=== PATIENT | female | born 1955 | race Caucasian/White ===

== ENCOUNTER 2016-10-17 11:08 | Emergency (ER) | payer MEDICAID ==
[~2016-10-17] VITALS: Ht 160 cm; Wt 127.0 kg
[~2016-10-17 11:08] MED LIST: ALBU2.5V4 IH; AMLO10TA2 PO; ATOR10TA66 PO; ATOR20TA66 PO; CALC500T3 PO; CANA300T PO; CARV12.52 PO; CHOL4PAC2 PO; CICL15CR11 TP; CYCL10TA9 PO; DULA1.5P2 SQ; DULO60CA58 PO; DULO60CA6 PO; FLUO40CA PO; FLUT1DIS26 IH; GABA300C PO; GEMF600T3 PO; IPRA4AER IH; LISI-552 PO; MAGN400T6 PO; MELO7.5T46 PO; METR250T32 PO; MORP-34 PO; OXYC-191 PO; OXYC-197 PO; OXYC-465 PO; PRD20T PO; SITA25TA5 PO
[2016-10-17] MEDS ORDERED: morphine INJ 10 MG/ML 1ML (SYR OR VIAL) IVP STA (11:58)
--- NOTE | 2016-10-17 12:08 | ED Lower Extremity ---
General Chief Complaint: Lower Extremity Stated Complaint: R FOOT INJ Nursing Triage Note: Pt stepped on a toothpick last night. Small puncture wound with red streaking noted. Hx of diabetes. Nursing Sepsis Screen: No Definite Risk Source: patient Exam Limitations: no limitations History of Present Illness Time seen by provider: 11:55 Initial Comments 60 yo female patient presents to the ED with c/o rt foot pain, swelling and redness. States she stepped on a toothpick last night. denies bleeding from the site at the time of injury. states the toothpick did not break. denies fever. Location Injury Occurred: home Onset: yesterday ((last night)) Pain/Injury Location: right foot Method of Injury: other (stepped on a toothpick.) Modifying Factors: Worse With Other (worse with palpation) Allergies and Home Medications Allergies Coded Allergies: No Known Drug Allergies (Unverified , 01/08/15) Home Medications Albuterol Sulfate 2.5 Mg/3 Ml Vial.neb, 2.5 MG IH Q6H PRN for SHORTNESS OF BREATH, (Reported) Albuterol/Ipratropium 4 Gm Aero, 2 PUFF IH Q4H PRN for SHORTNESS OF BREATH, ( Reported) Amlodipine Besylate 10 Mg Tablet, 10 MG PO DAILY, (Reported) Atorvastatin Calcium 20 Mg Tablet, 20 MG PO DAILY, (Reported) Calcium Carbonate 500 Mg Tablet, 1,000 MG PO DAILY, (Reported) TAKES TWO (500 MG) TABLETS Carvedilol 12.5 Mg Tablet, 12.5 MG PO BID, (Reported) Cholestyramine (with Sugar) 4 Gm Powd.pack, 2 PACKET PO DAILY PRN for DIARRHEA, (Reported) Clindamycin HCl 300 Mg Capsule, 300 MG PO QID, #40 Ref 0 Prescribed by: GARY MIXON on 10/17/16 1318 Cyclobenzaprine HCl 10 Mg Tablet, 10 MG PO Q8H PRN for MUSCLE SPASMS, (Reported) Cyclobenzaprine HCl 10 Mg Tablet, 10 MG PO Q8H PRN for SPASMS, #14 Ref 0 Prescribed by: GARY MIXON on 03/15/16 1310 Dulaglutide 1.5 Mg/0.5 Ml Pen.injctr, 1.5 MG SQ EVERY WEDNESDAY, (Reported) Duloxetine HCl 60 Mg Capsule.dr, 60 MG PO DAILY, (Reported) Fluoxetine HCl 40 Mg Capsule, 40 MG PO DAILY, (Reported) Fluticasone/Salmeterol 1 Each Blst.w.dev, 2 PUFF IH DAILY, (Reported) Gabapentin 300 Mg Capsule, 300 MG PO UD, #40 Ref 0 1 po x 1 dose on day 1; then 1 po BID on day 2; then 1 po TID. Prescribed by: GARY MIXON on 03/15/16 1310 Lisinopril 20 Mg Tablet, 20 MG PO DAILY, (Reported) Magnesium Oxide 400 Mg Tablet, 400 MG PO BID, (Reported) Oxycodone HCl/Acetaminophen 1 Each Tablet, 1-2 TAB PO Q4H PRN for PAIN, #90 Ref 0 Prescribed by: BIRGIT PLATT on 01/30/15 0643 Prednisone 20 Mg Tab, 20 MG PO DAILY, #5 Ref 0 Prescribed by: GARY MIXON on 03/15/16 1310 Sitagliptin Phosphate 25 Mg Tablet, 25 MG PO DAILY, (Reported) Constitutional: No chills, No fever, No malaise Respiratory: no symptoms reported Cardiovascular: no symptoms reported Gastrointestinal: no symptoms reported Musculoskeletal: see HPI, joint pain (rt foot), joint swelling (rt foot) Skin: see HPI, change in color (redness rt foot.), other Psychiatric/Neurological: No Symptoms Reported All Other Systems Reviewed Negative Unless Noted: Yes (Negative excepted noted.) Past Zgdarpg-Zijfcu-Yiuoyu Hx Patient Social History Alcohol Use: Denies Use Recreational Drug Use: No Smoking Status: Unknown if Ever Smoked Type Used: Cigarettes Recent Foreign Travel: No Contact w/Someone Who Travel: No Recent Infectious Disease Expo: No Recent Hopitalizations: No Immunizations Up To Date Tetanus Booster (TDap): More than 5yrs Date of Pneumonia Vaccine: Apr 12, 2013 Date of Influenza Vaccine: Jan 18, 2015 Surgeries HX Surgeries: Yes (COLON RESECTION, C/S X2, BILAT CTR, c-spine fusion) Surgeries: Orthopedic Respiratory Hx Respiratory Disorders: Yes (BI-PAP, OXYGEN) Respiratory Disorders: Sleep Apnea, COPD, Emphysema Cardiovascular Hx Cardiac Disorders: Yes Cardiac Disorders: High Cholesterol, Hypertension Neurological Hx Neurological Disorders: Yes (chronic numbness rt proximal lateral thigh.) Neurological Disorders: Neuropathy 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 System Hx 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 Disorders: No Female 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 Disorders: Denies Genitourinary Hx Genitourinary Disorders: No Gastrointestinal Hx Gastrointestinal Disorders: Yes (COLON RESECTION, ) Gastrointestinal Disorders: Chronic Diarrhea Musculoskeletal Hx Musculoskeletal Disorders: Yes (STENOSIS. chronic neck pain.) Musculoskeletal Disorders: Degenerate Disk Disease, Chronic Back Pain Endocrine Hx Endocrine Disorders: Yes (BORDERLINE DIABETE, ) Endocrine Disorders: Diabetes, Non-Insulin dep HEENT HX ENT Disorders: Yes (GLASSES, DENTURES) Cancer Hx Cancer: No Psychosocial Hx Psychiatric Problems: Yes Behavioral Health Disorders: Depression Integumentary HX Skin/Integumentary Disorder: No Blood Transfusions Hx Blood Disorders: No Reviewed Nursing Assessment Reviewed/Agree w Nursing PMH: Yes Family Medical History Significant Family History: No Pertinent Family Hx Family Medial History: Arthritis 19 FATHER Cardiovascular disease 19 FATHER Completed stroke 19 MOTHER Diabetes mellitus 19 FATHER Hypertension 19 FATHER G8 SISTER Myocardial infarction 19 FATHER Respiratory disorder 19 MOTHER Physical Exam Vital Signs Vital Sign - Last 12Hours 10/17/16 11:41 Temp 98.6 Pulse 82 Resp 18 B/P (MAP) 107/53 Pulse Ox 94 O2 Delivery Room Air Capillary Refill : Less Than 3 Seconds General Appearance: WD/WN, no apparent distress Cardiovascular: normal peripheral pulses, regular rate, rhythm, no edema, no murmur Respiratory: lungs clear, normal breath sounds, no respiratory distress Legs: bilateral leg non-tender, bilateral leg normal inspection, bilateral leg normal range of motion, bilateral leg no evidence of injury Knees: bilateral knee non-tender, bilateral knee normal inspection, bilateral knee normal range of motion, bilateral knee no evidence of injury Ankles: bilateral ankle non-tender, bilateral ankle normal inspection, bilateral ankle normal range of motion, bilateral ankle no evidence of injury Feet: left foot non-tender, left foot normal inspection, bilateral foot normal range of motion, left foot no evidence of injury, right foot pain, right foot soft tissue tenderness (plantar midfoot), right foot swelling (mild swelling of the plantar midfoot), right foot other (small puncture site with 4x6 cm area of erythema of the right plantar midfoot. Streaking noted up the medial foot to the level of the ankle.) Progress/Results/Core Measures Results/Orders Lab Results Laboratory Tests Test 10/17/16 12:15 Range/Units White Blood Count 10.4 4.3-11.0 10^3/uL Red Blood Count 4.77 4.35-5.85 10^6/uL Hemoglobin 13.6 11.5-16.0 G/DL Hematocrit 42 35-52 % Mean Corpuscular Volume 89 80-99 FL Mean Corpuscular Hemoglobin 29 25-34 PG Mean Corpuscular Hemoglobin Concent 32 32-36 G/DL Red Cell Distribution Width 14.8 H 10.0-14.5 % Platelet Count 240 130-400 10^3/uL Mean Platelet Volume 9.8 7.4-10.4 FL Neutrophils (%) (Auto) 68 42-75 % Lymphocytes (%) (Auto) 20 12-44 % Monocytes (%) (Auto) 10 0-12 % Eosinophils (%) (Auto) 2 0-10 % Basophils (%) (Auto) 0 0-10 % Neutrophils # (Auto) 7.0 1.8-7.8 X 10^3 Lymphocytes # (Auto) 2.1 1.0-4.0 X 10^3 Monocytes # (Auto) 1.0 0.0-1.0 X 10^3 Eosinophils # (Auto) 0.2 0.0-0.3 10^3/uL Basophils # (Auto) 0.0 0.0-0.1 10^3/uL Sodium Level 141 135-145 MMOL/L Potassium Level 3.6 3.6-5.0 MMOL/L Chloride Level 103 98-107 MMOL/L Carbon Dioxide Level 23 21-32 MMOL/L Anion Gap 15 H 5-14 MMOL/L Blood Urea Nitrogen 20 H 7-18 MG/DL Creatinine 1.17 0.60-1.30 MG/DL Estimat Glomerular Filtration Rate 47 BUN/Creatinine Ratio 17 Glucose Level 170 H 70-105 MG/DL Calcium Level 9.3 8.5-10.1 MG/DL C-Reactive Protein High Sensitivity 2.47 H 0.00-0.50 MG/DL My Orders Orders - GARY MIXON Basic Metabolic Panel (10/17/16 11:58) Cbc With Automated Diff (10/17/16 11:58) Hs C Reactive Protein (10/17/16 11:58) Saline Lock/Iv-Start (10/17/16 11:58) Foot, Right, 3 View (10/17/16 11:58) Morphine Injection (Morphine Injection (10/17/16 11:58) Clindamycin Injection (Cleocin Injection (10/17/16 12:45) Medications Given in ED Current Medications Medications Dose Ordered Sig/Gracie Route Start Time Stop Time Status Last Admin Dose Admin Clindamycin Phosphate 900 mg/ Sodium Chloride 56 ml @ 100 mls/hr ONCE ONCE IV 10/17/16 12:45 10/17/16 13:18 DC 10/17/16 12:45 100 MLS/HR Vital Signs/I&O Vital Sign - Last 12Hours 10/17/16 10/17/16 10/17/16 11:41 12:22 13:51 Temp 98.6 98.6 98.6 Pulse 82 80 Resp 18 18 B/P (MAP) 107/53 Pulse Ox 94 95 O2 Delivery Room Air Blood Pressure Mean: 71 Diagnostic Imaging Diagonstic Imaging: Xray Plain Films/CT/US/NM/MRI: other (foot) Comments FINDINGS: There is degenerative change about the right foot particularly at the first MTP joint with mild joint space narrowing and osteophyte formation. No acute bony abnormality. Prominent calcaneal spur formation at the base of the healed. A definitive soft tissue foreign body and/or abnormal gas collection does not appear to be present. IMPRESSION: 1. Negative for acute findings of the foot. 2. No definitive soft tissue foreign body. However, particularly small pieces of wood could be potentially radiographically occult. If further assessment is desired, would recommend ultrasound imaging for followup. Dictated on workstation # [id number] Reviewed: Reviewed by Me (radiology report reviewed by me) Departure Communication Progress Notes Laboratory and diagnostic findings discussed with the patient. Proceed with discharge to home. Patient given 1 dose of Cleocin IV prior to discharge. Impression Impression: Primary Impression: Cellulitis of right foot without toes Additional Impression: Puncture wound of foot, right Qualified Codes: S91.331A - Puncture wound without foreign body, right foot, initial encounter Disposition: 01 HOME, SELF-CARE Condition: Improved Departure-Patient Inst. Decision time for Depature: 13:16 Referrals: FELIZ FRANCOIS MD (PCP) Primary Care Physician Patient Instructions: Cellulitis (Skin Infection), Adult (DC) Add. Discharge Instructions: All discharge instructions reviewed with patient and/or family. Voiced understanding. Medications as directed. Continue usual home medications including Percocet. Elevate the right foot on pillows above the level of the heart. Shower with antibacterial soap. Follow-up with Dr. Francois this week for recheck. Call Wednesday morning for appointment time. Return to the emergency department for worsened redness, swelling, fever, or any other concerns. Scripts Clindamycin HCl (Cleocin HCl) 300 Mg Capsule 300 MG PO QID, #40 CAP 0 Refills Prov: GARY MIXON 10/17/16 Copy Copies To 1: LATONIA,GARY MEADOWS MD Oct 17, 2016 12:08
[2016-10-17 12:22] LABS: BASOPHILS % (AUTO) 0 % (0-10); EOSINOPHILS # (AUTO) 0.2 10^3/uL (0.0-0.3); EOSINOPHILS % (AUTO) 2 % (0-10); LYMPHOCYTES # (AUTO) 2.1 X 10^3 (1.0-4.0); LYMPHOCYTES % (AUTO) 20 % (12-44); MEAN CORPUSCULAR HEMOGLOBIN 29 PG (25-34); MEAN CORPUSCULAR HGB CONC 32 G/DL (32-36); MEAN CORPUSCULAR VOLUME 89 FL (80-99); MEAN PLATELET VOLUME 9.8 FL (7.4-10.4); MONOCYTES % (AUTO) 10 % (0-12); NEUTROPHILS % (AUTO) 68 % (42-75); PLATELET COUNT 240 10^3/uL (130-400); RED BLOOD COUNT 4.77 10^6/uL (4.35-5.85); RED CELL DISTRIBUTION WIDTH 14.8 % (10.0-14.5); WHITE BLOOD COUNT 10.4 10^3/uL (4.3-11.0)
[2016-10-17 12:36] LABS: CALCIUM 9.3 MG/DL (8.5-10.1); CREATININE SERUM 1.17 MG/DL (0.60-1.30); POTASSIUM 3.6 MMOL/L (3.6-5.0); hs C REACTIVE PROTEIN 2.47 MG/DL (0.00-0.50)
[2016-10-17] MEDS ORDERED: CLINDAMYCIN INJECTION 900 MG in NS (IVPB) 50 ML IV ONE (12:45)
[2016-10-17] MEDS ORDERED: CLIN300C3 PO (13:18)
--- NOTE | 2016-10-17 13:28 | Diagnostic Imaging Report ---
INDICATION: Toothpick injured foot. Injury one day earlier. TECHNIQUE: 3 views of the right foot CORRELATION STUDY: None FINDINGS: There is degenerative change about the right foot particularly at the first MTP joint with mild joint space narrowing and osteophyte formation. No acute bony abnormality. Prominent calcaneal spur formation at the base of the healed. A definitive soft tissue foreign body and/or abnormal gas collection does not appear to be present. IMPRESSION: 1. Negative for acute findings of the foot. 2. No definitive soft tissue foreign body. However, particularly small pieces of wood could be potentially radiographically occult. If further assessment is desired, would recommend ultrasound imaging for followup. Dictated by: Dictated on workstation # [id number]
[2016-10-17 13:51] VITALS: BP 110/60
--- OUTSIDE RECORDS SUMMARY | 2016-10-20 09:11 | XMS REPORT | Continuity of Care Document ---
Author Author [facility] Organization [facility] Address Unknown Phone Unavailable Allergies Active Description Code Type Severity Reaction Onset Reported/Identified Relationship to Patient Clinical Status Yes No Known Drug Allergies [id number] Drug Allergy Unknown N/ A 01/08/2015 Medications Problems Date Dx Coded Attending Type Code Diagnosis Diagnosed By 01/16/2015 NASIR KAPOOR MD, Ot M47.812 SPONDYLOSIS W/O MYELOPATHY OR RADICULOPA 01/16/2015 NASIR KAPOOR MD, Ot M54.2 CERVICALGIA 01/18/2015 KATHE NIETO DO Ot 723.0 01/18/2015 KATHE NIETO DO Ot V72.63 01/18/2015 KATHE NIETO DO Ot V74.8 01/30/2015 KATHE NIETO DO Ot E66.01 MORBID (SEVERE) OBESITY DUE TO EXCESS CA 01/30/2015 KATHE NIETO DO Ot M48.02 SPINAL STENOSIS, CERVICAL REGION 01/30/2015 KATHE NIETO DO Ot M54.12 RADICULOPATHY, CERVICAL REGION 01/30/2015 KTAHE NIETO DO Ot Z68.42 BODY MASS INDEX (BMI) 45.0-49.9, ADULT 03/15/2016 KATHE INETO DO Ot 723.0 CERVICAL SPINAL STENOSIS 03/15/2016 KATHE NIETO DO Ot V72.63 PRE-PROCEDURAL LABORATORY EXAMINATION 03/15/2016 KATHE NIETO DO Ot V74.8 SCREEN-BACTERIAL DIS NEC 03/15/2016 GARY DE LEON Ot E11.9 TYPE 2 DIABETES MELLITUS WITHOUT COMPLIC 03/15/2016 GARY DE LEON Ot F17.210 NICOTINE DEPENDENCE, CIGARETTES, UNCOMPL 03/15/2016 GARY DE LEON Ot I10 ESSENTIAL (PRIMARY) HYPERTENSION 03/15/2016 GARY DE LEON Ot M51.16 INTERVERTEBRAL DISC DISORDERS W RADICULO 03/15/2016 GARY DE LEON Ot M54.12 RADICULOPATHY, CERVICAL REGION 03/15/2016 GARY DE LEON Ot M54.16 RADICULOPATHY, LUMBAR REGION 03/15/2016 GARY DE LEON Ot Z79.899 OTHER GIN INSPECTOR (CURRENT) DRUG THERAPY 03/15/2016 GARY DE LEON Ot Z98.1 ARTHRODESIS STATUS 03/17/2016 GARY DE LEON Ot E11.9 TYPE 2 DIABETES MELLITUS WITHOUT COMPLIC 03/17/2016 GARY DE LEON Ot F17.210 NICOTINE DEPENDENCE, CIGARETTES, UNCOMPL 03/17/2016 GARY DE LEON L Ot I10 ESSENTIAL (PRIMARY) HYPERTENSION 03/17/2016 GARY DE LEON Ot M51.16 INTERVERTEBRAL DISC DISORDERS W RADICULO 03/17/2016 GARY DE LEON Ot M54.12 RADICULOPATHY, CERVICAL REGION 03/17/2016 GARY DE LEON Ot M54.16 RADICULOPATHY, LUMBAR REGION 03/17/2016 GARY DE LEON Ot Z79.899 OTHER [facility] (CURRENT) DRUG THERAPY 03/17/2016 GARY DE LEON Ot Z98.1 ARTHRODESIS STATUS 03/17/2016 GARY DE LEON Ot E11.9 TYPE 2 DIABETES MELLITUS WITHOUT COMPLIC 03/17/2016 GARY DE LEON Ot F17.210 NICOTINE DEPENDENCE, CIGARETTES, UNCOMPL 03/17/2016 GARY DE LEON Ot I10 ESSENTIAL (PRIMARY) HYPERTENSION 03/17/2016 GARY DE LEON Ot M51.16 INTERVERTEBRAL DISC DISORDERS W RADICULO 03/17/2016 GARY DE ELON Ot M54.12 RADICULOPATHY, CERVICAL REGION 03/17/2016 GARY DE LEON Ot M54.16 RADICULOPATHY, LUMBAR REGION 03/17/2016 GARY DE LEON Ot Z79.899 OTHER [facility] (CURRENT) DRUG THERAPY 03/17/2016 GARY DE LEON Ot Z98.1 ARTHRODESIS STATUS 03/21/2016 GARY DE LEON Ot E11.9 TYPE 2 DIABETES MELLITUS WITHOUT COMPLIC 03/21/2016 GARY DE LEON Ot F17.210 NICOTINE DEPENDENCE, CIGARETTES, UNCOMPL 03/21/2016 GARY DE LEON Ot I10 ESSENTIAL (PRIMARY) HYPERTENSION 03/21/2016 GARY DE LEON Ot M51.16 INTERVERTEBRAL DISC DISORDERS W RADICULO 03/21/2016 GARY DE LEON Ot M54.12 RADICULOPATHY, CERVICAL REGION 03/21/2016 GARY DE LEON Ot M54.16 RADICULOPATHY, LUMBAR REGION 03/21/2016 GARY DE LEON Ot Z79.899 OTHER GIN INSPECTOR (CURRENT) DRUG THERAPY 03/21/2016 GARY DE LEON Ot Z98.1 ARTHRODESIS STATUS Procedures Code Description Performed By Performed On [id number] FUSION 2-6 C JT W INTBD FUS DEV, ANT KAMRYN 01/28/2015 Results Test Result Range Complete blood count (CBC) with automated white blood cell (WBC) differential - 10/17/16 12:15 Blood leukocytes automated count (number/volume) 10.4 10*3/ uL 4.3-11.0 Blood erythrocytes automated count (number/volume) 4.77 10*6 /uL 4.35-5.85 Venous blood hemoglobin measurement (mass/volume) 13.6 g/dL 11.5-16.0 Blood hematocrit (volume fraction) 42 % 35-52 Automated erythrocyte mean corpuscular volume 89 [foz_us] 80-99 Automated erythrocyte mean corpuscular hemoglobin (mass per erythrocyte) 29 pg 25-34 Automated erythrocyte mean corpuscular hemoglobin concentration measurement ( mass/volume) 32 g/dL 32-36 Automated erythrocyte distribution width ratio 14.8 % 10.0-14.5 Automated blood platelet count (count/volume) 240 10*3/uL 130-400 Automated blood platelet mean volume measurement 9.8 [foz_us ] 7.4-10.4 Automated blood neutrophils/100 leukocytes 68 % 42-75 Automated blood lymphocytes/100 leukocytes 20 % 12-44 Blood monocytes/100 leukocytes 10 % 0-12 Automated blood eosinophils/100 leukocytes 2 % 0-10 Automated blood basophils/100 leukocytes 0 % 0-10 Blood neutrophils automated count (number/volume) 7.0 10*3 1.8-7.8 Blood lymphocytes automated count (number/volume) 2.1 10*3 1.0-4.0 Blood monocytes automated count (number/volume) 1.0 10*3 0.0-1.0 Automated eosinophil count 0.2 10*3/uL 0.0-0.3 Automated blood basophil count (count/volume) 0.0 10*3/uL 0.0-0.1 Whole blood basic metabolic panel - 10/17/16 12:15 Serum or plasma sodium measurement (moles/volume) 141 mmol/ L 135-145 Serum or plasma potassium measurement (moles/volume) 3.6 mmol/L 3.6-5.0 Serum or plasma chloride measurement (moles/volume) 103 mmol /L 98-107 Carbon dioxide 23 mmol/L 21-32 Serum or plasma anion gap determination (moles/volume) 15 mmol/L 5-14 Serum or plasma urea nitrogen measurement (mass/volume) 20 mg/dL 7-18 Serum or plasma creatinine measurement (mass/volume) 1.17 mg /dL 0.60-1.30 Serum or plasma urea nitrogen/creatinine mass ratio 17 NRG Serum or plasma creatinine measurement with calculation of estimated glomerular filtration rate 47 NRG Serum or plasma glucose measurement (mass/volume) 170 mg/dL 70-105 Serum or plasma calcium measurement (mass/volume) 9.3 mg/dL 8.5-10.1 Serum or plasma C reactive protein measurement (mass/volume) - 10/17/16 12:15 Serum or plasma C reactive protein measurement (mass/volume) 2.47 mg/dL 0.00-0.50 Encounters ACCT No. Visit Date/Time Discharge Status Pt. Type Provider Facility Loc./Unit Complaint [id number] 10/17/2016 11:09:00 2016 13:51:00 DIS Emergency GARY DE LEON [facility] ER R FOOT INJ [id number] 03/15/2016 10:30:00 2015 13:17:00 DIS Emergency GARY DE LEON [facility] ER LOWER BACK PAIN [id number] 01/28/2015 07:04:00 2014 11:38:00 DIS Inpatient KATHE NIETO DO [facility] 4TH CERVICAL STENOSIS [id number] 01/16/2015 11:49:00 2014 14:03:00 DIS Emergency ANTWON TOBIN, NASIR Hernandez [facility] ER NECK PAIN [id number] 01/08/2015 10:11:00 2014 23:59:59 CLS Outpatient KATHE NIETO DO [facility] PREOP CERVICAL STENOSIS
--- OUTSIDE RECORDS SUMMARY | 2016-10-20 09:11 | XMS REPORT | Continuity of Care Document ---
Author Author [facility] Organization [facility] Address Unknown Phone Unavailable Care Team Providers Care Technology Assistant Name Role Phone Self, Cassius PCP [phone] Source Comments Some departments are not documenting in the electronic medical record. If you do not see the information that you expected, contact Release of Information in the Health Information Management department at [phone] for further assistance in locating additional records.[facility] Active Allergies and Adverse Reactions Not on File Current Medications Not on file Active Problems Not on file Social History Tobacco Use Types Packs/Day Years Used Date Never Assessed Plan of Care Health Maintenance Due Date Last Done Comments Hepatitis C Screening 1955 Physical (Comprehensive) 1961 Exam Pertussis Vaccine 1965 Tetanus Vaccine 11/05/1971 Cervical Cancer Screening 11/05/1975 Breast Cancer Screening 1994 Colorectal Cancer 2004 Screening Shingles Vaccine 2014 Influenza Vaccine 12/11/2016 Results from Last 3 Months Not on file
== END 2016-10-17 13:51 | disposition home or self-care (01) ==
LOC: EDUNIT# 11:08 → ER 11:09
DX: F32.9 Major depressive disorder, single episode, unspecified; L03.115 Cellulitis of right lower limb; I10 Essential (primary) hypertension; Z98.1 Arthrodesis status; J43.9 Emphysema, unspecified; E78.00 Pure hypercholesterolemia, unspecified; G47.30 Sleep apnea, unspecified; M19.90 Unspecified osteoarthritis, unspecified site; Y92.009 Unspecified place in unspecified non-institutional (private) residence as the place of occurrence of the external cause; S91.331A Puncture wound without foreign body, right foot, initial encounter; E11.40 Type 2 diabetes mellitus with diabetic neuropathy, unspecified; W26.9XXA Contact with unspecified sharp object(s), initial encounter
CPT/HCPCS: 36415; 73630; 80048; 85025; 86141; 96365; 96375

== ENCOUNTER 2016-10-19 21:37 | Emergency (ER) | payer MEDICAID ==
[~2016-10-19] VITALS: Ht 160 cm; Wt 127.0 kg
[~2016-10-19 21:37] MED LIST changes: +CLIN300C3 PO
[2016-10-19] MEDS ORDERED: oxyCODONE/APAP 10/325MG (PERCOCET 10) TABLET PO ONE (23:00)
[2016-10-19] MEDS ORDERED: LEVOFLOXACIN 500 MG TAB (LEVAQUIN) PO ONE (23:00)
--- NOTE | 2016-10-19 23:00 | ED Integumentary General ---
General Chief Complaint: Skin/Wound Problems Stated Complaint: RT FOOT LACERATION THAT IS INFECTED Nursing Triage Note: Pt here for wound on bottom of R foot. Pt was seen here 2 days ago after stepping on a toothpick. Pt now reports increased pain and redness to botoom of R foot. Pt was prescribed clindamycin at last visit. Source: patient Exam Limitations: no limitations History of Present Illness Time seen by provider: 22:57 Initial Comments To ER with reports of infected right foot. She is diabetic. She was seen here 2 days ago after stepping on a toothpick. The toothpick was removed and she felt to still be entirely intact as the tip was still tapered and pointed is the normal toothpick would be. She was given IV clindamycin and oral clindamycin. She continues to take her oral clindamycin which she has present with her. No fevers or chills but she has worsening pain. She also states she has worsening redness. She is scheduled to see her primary care provider in 2 days. Timing/Duration: getting worse Severity: moderate Associated Symptoms: No fever Allergies and Home Medications Allergies Coded Allergies: No Known Drug Allergies (Unverified , 01/08/15) Home Medications Albuterol Sulfate 2.5 Mg/3 Ml Vial.neb, 2.5 MG IH Q6H PRN for SHORTNESS OF BREATH, (Reported) Albuterol/Ipratropium 4 Gm Aero, 2 PUFF IH Q4H PRN for SHORTNESS OF BREATH, ( Reported) Amlodipine Besylate 10 Mg Tablet, 10 MG PO DAILY, (Reported) Atorvastatin Calcium 20 Mg Tablet, 20 MG PO DAILY, (Reported) Calcium Carbonate 500 Mg Tablet, 1,000 MG PO DAILY, (Reported) TAKES TWO (500 MG) TABLETS Carvedilol 12.5 Mg Tablet, 12.5 MG PO BID, (Reported) Cholestyramine (with Sugar) 4 Gm Powd.pack, 2 PACKET PO DAILY PRN for DIARRHEA, (Reported) Clindamycin HCl 300 Mg Capsule, 300 MG PO QID, #40 Ref 0 Prescribed by: GARY MIXON on 10/17/16 1318 Cyclobenzaprine HCl 10 Mg Tablet, 10 MG PO Q8H PRN for MUSCLE SPASMS, (Reported) Cyclobenzaprine HCl 10 Mg Tablet, 10 MG PO Q8H PRN for SPASMS, #14 Ref 0 Prescribed by: GARY MIXON on 03/15/16 1310 Dulaglutide 1.5 Mg/0.5 Ml Pen.injctr, 1.5 MG SQ EVERY WEDNESDAY, (Reported) Duloxetine HCl 60 Mg Capsule.dr, 60 MG PO DAILY, (Reported) Fluoxetine HCl 40 Mg Capsule, 40 MG PO DAILY, (Reported) Fluticasone/Salmeterol 1 Each Blst.w.dev, 2 PUFF IH DAILY, (Reported) Gabapentin 300 Mg Capsule, 300 MG PO UD, #40 Ref 0 1 po x 1 dose on day 1; then 1 po BID on day 2; then 1 po TID. Prescribed by: GARY MIXON on 03/15/16 1310 Lisinopril 20 Mg Tablet, 20 MG PO DAILY, (Reported) Magnesium Oxide 400 Mg Tablet, 400 MG PO BID, (Reported) Oxycodone HCl/Acetaminophen 1 Each Tablet, 1-2 TAB PO Q4H PRN for PAIN, #90 Ref 0 Prescribed by: BIRGIT PLATT on 01/30/15 0643 Prednisone 20 Mg Tab, 20 MG PO DAILY, #5 Ref 0 Prescribed by: GARY MIXON on 03/15/16 1310 Sitagliptin Phosphate 25 Mg Tablet, 25 MG PO DAILY, (Reported) Constitutional: see HPI, No chills EENTM: see HPI Respiratory: no symptoms reported Cardiovascular: no symptoms reported Genitourinary: no symptoms reported Musculoskeletal: no symptoms reported Skin: see HPI Psychiatric/Neurological: No Symptoms Reported Endocrine: No Symptoms Reported Hematologic/Lymphatic: No Symptoms Reported Past Ekcqssw-Qzagtu-Hhnxrk Hx Patient Social History Alcohol Use: Denies Use Recreational Drug Use: No Smoking Status: Current Everyday Smoker Type Used: Cigarettes Recent Foreign Travel: No Contact w/Someone Who Travel: No Recent Infectious Disease Expo: No Recent Hopitalizations: No Immunizations Up To Date Tetanus Booster (TDap): More than 5yrs Date of Pneumonia Vaccine: Apr 12, 2013 Date of Influenza Vaccine: Jan 18, 2015 Surgeries HX Surgeries: Yes (COLON RESECTION, C/S X2, BILAT CTR, c-spine fusion) Surgeries: Section, Orthopedic Respiratory Hx Respiratory Disorders: Yes (BI-PAP, OXYGEN) Respiratory Disorders: Sleep Apnea, COPD, Emphysema Cardiovascular Hx Cardiac Disorders: Yes Cardiac Disorders: High Cholesterol, Hypertension Neurological Hx Neurological Disorders: Yes (chronic numbness rt proximal lateral thigh.) Neurological Disorders: Neuropathy 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 System Hx 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 Disorders: No Female 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 Disorders: Denies Genitourinary Hx Genitourinary Disorders: No Gastrointestinal Hx Gastrointestinal Disorders: Yes (COLON RESECTION, ) Gastrointestinal Disorders: Chronic Diarrhea Musculoskeletal Hx Musculoskeletal Disorders: Yes (STENOSIS. chronic neck pain.) Musculoskeletal Disorders: Degenerate Disk Disease, Chronic Back Pain Endocrine Hx Endocrine Disorders: Yes (BORDERLINE DIABETE, ) Endocrine Disorders: Diabetes, Non-Insulin dep HEENT HX ENT Disorders: Yes (GLASSES, DENTURES) Cancer Hx Cancer: No Psychosocial Hx Psychiatric Problems: Yes Behavioral Health Disorders: Depression Integumentary HX Skin/Integumentary Disorder: No Blood Transfusions Hx Blood Disorders: No Family Medical History Significant Family History: No Pertinent Family Hx Family Medial History: Arthritis 19 FATHER Cardiovascular disease 19 FATHER Completed stroke 19 MOTHER Diabetes mellitus 19 FATHER Hypertension 19 FATHER G8 SISTER Myocardial infarction 19 FATHER Respiratory disorder 19 MOTHER Physical Exam Vital Signs Vital Sign - Last 12Hours 10/19/16 22:14 Temp 99.6 Pulse 89 Resp 18 B/P (MAP) 132/77 Pulse Ox 91 O2 Delivery Room Air Capillary Refill : Less Than 3 Seconds General Appearance: WD/WN, no apparent distress HEENT: PERRL/EOMI, normal ENT inspection Neck: non-tender, full range of motion Respiratory: no respiratory distress, no accessory muscle use Gastrointestinal: non tender, soft Neurologic/Psychiatric: alert, normal mood/affect, oriented x 3 Skin: normal color, warm/dry Skin Problem Location: other (there is a area of erythema 2 cm wide to the arch of the foot that extends up to the dorsal surface of the foot. This does not extend even up to the ankle. There is no lymphangitis. There is a small 5 mm pustule in the center. This erythema is well demarcated and there is no swelling of the foot. No crepitus on palpation. ) I&D : Blade Size: 11 Progress Pustule was opened. No foreign bodies identified. Purulent material was expressed. Culture collected and sent to lab. Covered with triple antibiotic ointment and a gauze roll. Progress/Results/Core Measures Results/Orders My Orders Orders - JASON PALMER APRN Oxycodone/Acet 10/325mg Tablet (Percocet (10/19/16 23:00) Levofloxacin Tablet (Levaquin Tablet) (10/19/16 23:00) Wound Culture (10/19/16 22:55) Vital Signs/I&O Vital Sign - Last 12Hours 10/19/16 22:14 Temp 99.6 Pulse 89 Resp 18 B/P (MAP) 132/77 Pulse Ox 91 O2 Delivery Room Air Blood Pressure Mean: 95 Departure Communication Progress Notes Patient was given strict return precautions including worsening redness, fevers , swelling of the foot. Impression Impression: Primary Impression: Puncture wound of foot excluding toes with infection Disposition: 01 HOME, SELF-CARE Condition: Stable Departure-Patient Inst. Decision time for Depature: 23:00 Referrals: SELFFELIZ MD (PCP/Family) Primary Care Physician Patient Instructions: NO INSTRUCTIONS GIVEN Add. Discharge Instructions: 1. Return to ER promptly for any increased redness, increased swelling, development of fevers or other concerns. Continue to take her clindamycin in addition to the second antibiotic given to you. All discharge instructions reviewed with patient and/or family. Voiced understanding. JASON PALMER [facility] [address] BAIL[employer] Oct 19, 2016 23:00
[2016-10-19 23:16] LABS: BASOPHILS % (AUTO) 0 % (0-10); EOSINOPHILS # (AUTO) 0.2 10^3/uL (0.0-0.3); EOSINOPHILS % (AUTO) 2 % (0-10); LYMPHOCYTES # (AUTO) 2.5 X 10^3 (1.0-4.0); LYMPHOCYTES % (AUTO) 28 % (12-44); MEAN CORPUSCULAR HEMOGLOBIN 28 PG (25-34); MEAN CORPUSCULAR HGB CONC 32 G/DL (32-36); MEAN CORPUSCULAR VOLUME 89 FL (80-99); MEAN PLATELET VOLUME 10.1 FL (7.4-10.4); MONOCYTES # (AUTO) 0.8 X 10^3 (0.0-1.0); MONOCYTES % (AUTO) 9 % (0-12); NEUTROPHILS # (AUTO) 5.6 X 10^3 (1.8-7.8); NEUTROPHILS % (AUTO) 61 % (42-75); PLATELET COUNT 258 10^3/uL (130-400); RED BLOOD COUNT 4.82 10^6/uL (4.35-5.85); RED CELL DISTRIBUTION WIDTH 14.5 % (10.0-14.5); WHITE BLOOD COUNT 9.2 10^3/uL (4.3-11.0)
[2016-10-19 23:30] VITALS: BP 132/77
--- OUTSIDE RECORDS SUMMARY | 2016-10-20 18:33 | XMS REPORT | Continuity of Care Document ---
Author Author [facility] Organization [facility] Address Unknown Phone Unavailable Care Team Providers Care Freight Coordinator Name Role Phone Self, Cassius PCP [phone] Source Comments Some departments are not documenting in the electronic medical record. If you do not see the information that you expected, contact Release of Information in the Health Information Management department at [phone] for further assistance in locating additional records.[facility] Active Allergies and Adverse Reactions Not on [...]
--- OUTSIDE RECORDS SUMMARY | 2016-10-20 18:34 | XMS REPORT | Continuity of Care Document ---
Author Author [facility] Organization [facility] Address Unknown Phone Unavailable Allergies Active Description Code Type Severity Reaction Onset Reported/Identified Relationship to Patient Clinical Status Yes No Known Drug Allergies [id number] Drug Allergy Unknown N/ A 01/08/2015 Medications [...] DO Ot M54.12 RADICULOPATHY, CERVICAL REGION 01/30/2015 KATHE NIETO DO Ot Z68.42 BODY MASS INDEX (BMI) 45.0-49.9, ADULT 03/15/2016 KATHE NIETO DO Ot 723.0 CERVICAL SPINAL STENOSIS 03/15/2016 [...] 03/15/2016 GARY DE LEON Ot Z79.899 OTHER LAST INSERTER (CURRENT) DRUG THERAPY 03/15/2016 GARY DE LEON [...] 03/17/2016 GARY DE LEON Ot Z79.899 OTHER [facility] (CURRENT) DRUG THERAPY 03/17/2016 GARY DE LEON [...] 03/17/2016 GARY DE LEON Ot Z79.899 OTHER [facility] (CURRENT) DRUG THERAPY 03/17/2016 GARY DE LEON [...] 03/21/2016 GARY DE LEON Ot Z79.899 OTHER LAST INSERTER (CURRENT) DRUG THERAPY 03/21/2016 GARY DE LEON Ot Z98.1 ARTHRODESIS STATUS Procedures Code Description Performed By Performed On [id number] FUSION 2-6 C JT W INTBD FUS [...] Status Pt. Type Provider Facility Loc./Unit Complaint [id number] 10/17/2016 11:09:00 2016 13:51:00 DIS Emergency GARY DE LEON [facility] ER R FOOT INJ [id number] 03/15/2016 10:30:00 2015 13:17:00 DIS Emergency GARY DE LEON [facility] ER LOWER BACK PAIN [id number] 01/28/2015 07:04:00 2014 11:38:00 DIS Inpatient KATHE NIETO DO [facility] 4TH CERVICAL STENOSIS [id number] 01/16/2015 11:49:00 2014 14:03:00 DIS Emergency ANTWON TOBIN, NASIR Hernandez [facility] ER NECK PAIN [id number] 01/08/2015 10:11:00 2014 23:59:59 CLS Outpatient KATHE NIETO DO [facility] PREOP CERVICAL STENOSIS
== END 2016-10-19 23:30 | disposition home or self-care (01) ==
LOC: EDUNIT# 21:37 → ER 21:39
DX: T79.8XXA Other early complications of trauma, initial encounter (principal); S91.341A Puncture wound with foreign body, right foot, initial encounter; F32.9 Major depressive disorder, single episode, unspecified; E11.9 Type 2 diabetes mellitus without complications; M48.00 Spinal stenosis, site unspecified; K52.9 Noninfective gastroenteritis and colitis, unspecified; G62.9 Polyneuropathy, unspecified; E78.00 Pure hypercholesterolemia, unspecified; I10 Essential (primary) hypertension; J43.9 Emphysema, unspecified; F17.210 Nicotine dependence, cigarettes, uncomplicated; Z98.890 Other specified postprocedural states
CPT/HCPCS: 36415; 85025; 86141; 87070; 87205; 99283

== ENCOUNTER 2016-11-23 17:55 | Emergency (ER) | payer MEDICAID ==
[~2016-11-23] VITALS: Ht 160 cm; Wt 127.0 kg
--- OUTSIDE RECORDS SUMMARY | 2016-11-23 18:03 | XMS REPORT | Clinical Summary ---
Author Author [facility] Organization [facility] Address Unknown Phone Unavailable Care Team Providers Care Oil Driller Name Role Phone PCP Unavailable Source Comments Some departments are not documenting in the electronic medical record. If you do not see the information that you expected, contact Release of Information in the Health Information Management department at [phone] for further assistance in locating additional records.[facility] Allergies Not on File Current Medications Not on file Active Problems Not on file Social History Tobacco Use Types Packs/Day Years Used Date Never Assessed Sex Assigned at Date Recorded Not on file Last Filed Vital Signs Not on file Plan of Treatment Health Maintenance Due Date Last Done Comments HEPATITIS C SCREENING 1955 PHYSICAL (COMPREHENSIVE) 1961 EXAM PERTUSSIS VACCINE 1965 TETANUS VACCINE 11/05/1971 CERVICAL CANCER SCREENING 1984 BREAST CANCER SCREENING 1994 COLORECTAL CANCER 2004 SCREENING SHINGLES VACCINE 2014 INFLUENZA VACCINE 12/11/2016 Results Not on filefrom Last 3 Months
[2016-11-23] MEDS ORDERED: NS IV 1000 ML 1,000 ML IV SCH (18:30)
--- NOTE | 2016-11-23 18:40 | ED Abdominal Pain ---
General Chief Complaint: Abdominal/GI Problems Stated Complaint: DIARRHEA Nursing Triage Note: STATES SHE IS USUALLY CONSTIPATED AND 3 NOCS AGO SHE TOOK X2 DULCOLOX AND HAS HAD DIARRHEA SINCE. STATES SHE HAS TAKEN X2 PKTS OF QUESTRAN. Sepsis Screen: No Definite Risk Source of Information: Patient Exam Limitations: No Limitations History of Present Illness Time Seen By Provider: 20:11 Initial Comments To ER with diarrhea for the past 2-3 days. She states that prior to this she had become constipated and took 2 Dulcolax tablets orally. Since then her stools been very watery without blood but she does report there appears to be some mucous in them. No fevers or chills. She does report diffuse abdominal pain and states that this is crampy. She has a history of a partial colectomy secondary to diverticulitis. Timing/Duration: 2-3 Days Severity/Quality: Cramping Radiation: No Radiation Activities at Onset: None Associated Symptoms: No Fever/Chills, No Nausea/Vomiting Allergies and Home Medications Allergies Coded Allergies: No Known Drug Allergies (Unverified , 01/08/15) Home Medications Albuterol Sulfate 2.5 Mg/3 Ml Vial.neb, 2.5 MG IH Q6H PRN for SHORTNESS OF BREATH, (Reported) Albuterol/Ipratropium 4 Gm Aero, 2 PUFF IH Q4H PRN for SHORTNESS OF BREATH, ( Reported) Amlodipine Besylate 10 Mg Tablet, 10 MG PO DAILY, (Reported) Amoxicillin/Potassium Clav 1 Each Tablet, 1 EACH PO BID, #14 Prescribed by: JASON PALMER on 11/23/162009 Atorvastatin Calcium 20 Mg Tablet, 20 MG PO DAILY, (Reported) Calcium Carbonate 500 Mg Tablet, 1,000 MG PO DAILY, (Reported) TAKES TWO (500 MG) TABLETS Carvedilol 12.5 Mg Tablet, 12.5 MG PO BID, (Reported) Cholestyramine (with Sugar) 4 Gm Powd.pack, 2 PACKET PO DAILY PRN for DIARRHEA, (Reported) Clindamycin HCl 300 Mg Capsule, 300 MG PO QID, #40 Ref 0 Prescribed by: GARY MIXON on 10/17/16 1318 Cyclobenzaprine HCl 10 Mg Tablet, 10 MG PO Q8H PRN for MUSCLE SPASMS, (Reported) Cyclobenzaprine HCl 10 Mg Tablet, 10 MG PO Q8H PRN for SPASMS, #14 Ref 0 Prescribed by: GARY MIXON on 03/15/16 1310 Dulaglutide 1.5 Mg/0.5 Ml Pen.injctr, 1.5 MG SQ EVERY WEDNESDAY, (Reported) Duloxetine HCl 60 Mg Capsule.dr, 60 MG PO DAILY, (Reported) Fluoxetine HCl 40 Mg Capsule, 40 MG PO DAILY, (Reported) Fluticasone/Salmeterol 1 Each Blst.w.dev, 2 PUFF IH DAILY, (Reported) Gabapentin 300 Mg Capsule, 300 MG PO UD, #40 Ref 0 1 po x 1 dose on day 1; then 1 po BID on day 2; then 1 po TID. Prescribed by: GARY MIXON on 03/15/16 1310 Hydrocodone/Acetaminophen 1 Each Tablet, 1 EACH PO Q6H PRN for NAUSEA/VOMITING- 1ST LINE, #20 Prescribed by: JASON PALMER on 11/23/162009 Lisinopril 20 Mg Tablet, 20 MG PO DAILY, (Reported) Magnesium Oxide 400 Mg Tablet, 400 MG PO BID, (Reported) Ondansetron 8 Mg Tab.rapdis, 8 MG PO Q6H PRN for NAUSEA/VOMITING-1ST LINE, #10 Prescribed by: JASON PALMER on 11/23/162009 Oxycodone HCl/Acetaminophen 1 Each Tablet, 1-2 TAB PO Q4H PRN for PAIN, #90 Ref 0 Prescribed by: BIRGIT PLATT on 01/30/15 0643 Prednisone 20 Mg Tab, 20 MG PO DAILY, #5 Ref 0 Prescribed by: GARY MIXON on 03/15/16 1310 Sitagliptin Phosphate 25 Mg Tablet, 25 MG PO DAILY, (Reported) Review of Systems Constitutional: see HPI, No chills, No fever EENTM: No Symptoms Reported Respiratory: No Symptoms Reported Cardiovascular: No Symptoms Reported Gastrointestinal: See HPI, Abdominal Pain, Diarrhea, Denies Nausea Genitourinary: No Symptoms Reported Musculoskeletal: no symptoms reported Skin: no symptoms reported Psychiatric/Neurological: No Symptoms Reported Past Acbpgyk-Cascco-Udowpd Hx Patient Social History Alcohol Use: Denies Use Recreational Drug Use: Yes (POT) Smoking Status: Current Everyday Smoker Type Used: Cigarettes Recent Foreign Travel: No Contact w/Someone Who Travel: No Recent Infectious Disease Expo: No Recent Hopitalizations: No Immunizations Up To Date Tetanus Booster (TDap): More than 5yrs Date of Pneumonia Vaccine: Apr 12, 2013 Date of Influenza Vaccine: Jan 18, 2015 Surgeries HX Surgeries: Yes (COLON RESECTION, C/S X2, BILAT CTR, c-spine fusion) Surgeries: Section, Orthopedic Respiratory Hx Respiratory Disorders: Yes (BI-PAP, OXYGEN) Respiratory Disorders: Sleep Apnea, COPD, Emphysema Cardiovascular Hx Cardiac Disorders: Yes Cardiac Disorders: High Cholesterol, Hypertension Neurological Hx Neurological Disorders: Yes (chronic numbness rt proximal lateral thigh.) Neurological Disorders: Neuropathy 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 System Hx 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 Disorders: No Female 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 Disorders: Denies Genitourinary Hx Genitourinary Disorders: No Gastrointestinal Hx Gastrointestinal Disorders: Yes (COLON RESECTION, ) Gastrointestinal Disorders: Chronic Constipation Musculoskeletal Hx Musculoskeletal Disorders: Yes (STENOSIS. chronic neck pain.) Musculoskeletal Disorders: Degenerate Disk Disease, Fibromyalgia, Chronic Back Pain Endocrine Hx Endocrine Disorders: Yes (BORDERLINE DIABETE, ) Endocrine Disorders: Diabetes, Non-Insulin dep HEENT HX ENT Disorders: Yes (GLASSES, DENTURES) Cancer Hx Cancer: No Psychosocial Hx Psychiatric Problems: Yes Behavioral Health Disorders: Depression Integumentary HX Skin/Integumentary Disorder: No Blood Transfusions Hx Blood Disorders: No Family Medical History Significant Family History: No Pertinent Family Hx Family Medial History: Arthritis 19 FATHER Cardiovascular disease 19 FATHER Completed stroke 19 MOTHER Diabetes mellitus 19 FATHER Hypertension 19 FATHER G8 SISTER Myocardial infarction 19 FATHER Respiratory disorder 19 MOTHER Physical Exam Vital Signs VS - Last 72 Hours, by Label 11/23/16 11/23/16 18:00 21:22 Temp 98.0 98.0 Pulse 97 97 Resp 16 16 B/P (MAP) 144/100 Pulse Ox 98 98 O2 Delivery Room Air Room Air Capillary Refill : Less Than 3 Seconds General Appearance: WD/WN, no apparent distress HEENT: PERRL/EOMI, normal ENT inspection Neck: non-tender, full range of motion Respiratory: no respiratory distress, no accessory muscle use Gastrointestinal: normal bowel sounds, soft, tenderness (LLQ/suprapubic) Extremities: normal range of motion, non-tender Neurologic/Psychiatric: alert, normal mood/affect, oriented x 3 Skin: normal color, warm/dry Progress/Results/Core Measures Results/Orders Lab Results Laboratory Tests Test 11/23/16 19:27 Range/Units White Blood Count 16.4 H 4.3-11.0 10^3/uL Red Blood Count 4.93 4.35-5.85 10^6/uL Hemoglobin 13.9 11.5-16.0 G/DL Hematocrit 43 35-52 % Mean Corpuscular Volume 86 80-99 FL Mean Corpuscular Hemoglobin 28 25-34 PG Mean Corpuscular Hemoglobin Concent 33 32-36 G/DL Red Cell Distribution Width 13.9 10.0-14.5 % Platelet Count 243 130-400 10^3/uL Mean Platelet Volume 9.9 7.4-10.4 FL Neutrophils (%) (Auto) 73 42-75 % Lymphocytes (%) (Auto) 18 12-44 % Monocytes (%) (Auto) 8 0-12 % Eosinophils (%) (Auto) 1 0-10 % Basophils (%) (Auto) 0 0-10 % Neutrophils # (Auto) 12.0 H 1.8-7.8 X 10^3 Lymphocytes # (Auto) 3.0 1.0-4.0 X 10^3 Monocytes # (Auto) 1.3 H 0.0-1.0 X 10^3 Eosinophils # (Auto) 0.1 0.0-0.3 10^3/uL Basophils # (Auto) 0.0 0.0-0.1 10^3/uL Neutrophils % (Manual) 67 % Lymphocytes % (Manual) 29 % Monocytes % (Manual) 2 % Eosinophils % (Manual) 2 % Basophils % (Manual) 0 % Band Neutrophils 0 % Blood Morphology Comment NORMAL Sodium Level 139 135-145 MMOL/L Potassium Level 3.1 L 3.6-5.0 MMOL/L Chloride Level 103 98-107 MMOL/L Carbon Dioxide Level 23 21-32 MMOL/L Anion Gap 13 5-14 MMOL/L Blood Urea Nitrogen 16 7-18 MG/DL Creatinine 0.97 0.60-1.30 MG/DL Estimat Glomerular Filtration Rate 58 BUN/Creatinine Ratio 16 Glucose Level 108 H 70-105 MG/DL Calcium Level 9.1 8.5-10.1 MG/DL Total Bilirubin 0.6 0.1-1.0 MG/DL Aspartate Amino Transf (AST/SGOT) 13 5-34 U/L Alanine Aminotransferase (ALT/SGPT) 10 0-55 U/L Alkaline Phosphatase 59 40-136 U/L Total Protein 7.0 6.4-8.2 GM/DL Albumin 3.7 3.2-4.5 GM/DL My Orders Orders - JASON PALMER APRN Cbc With Automated Diff (11/23/16 18:22) Comprehensive Metabolic Panel (11/23/16 18:22) Saline Lock/Iv-Start (11/23/16 18:29) Ns Iv 1000 Ml (Sodium Chloride 0.9%) (11/23/16 18:30) Ct Abdomen/Pelvis Wo (11/23/16 18:29) Manual Differential (11/23/16 19:27) Ceftriaxone Injection (Rocephin Injectio (11/23/16 19:45) Metronidazole Tablet (Flagyl Tablet) (11/23/16 19:45) Hydrocodone/Apap 5/325 Tablet (Lortab 5 (11/23/16 19:45) Potassium Chloride (Tablet) (Klor Con Ta (11/23/16 20:00) Vital Signs/I&O Vital Sign - Last 12Hours 11/23/16 11/23/16 18:00 21:22 Temp 98.0 98.0 Pulse 97 97 Resp 16 16 B/P (MAP) 144/100 Pulse Ox 98 98 O2 Delivery Room Air Room Air Blood Pressure Mean: 115 Diagnostic Imaging Diagonstic Imaging: CT Comments NAME: [facility] REC#: [id number] PT STATUS: REG ER : 1955 PHYSICIAN: JASON PALMER APRN ADMIT DATE: 11/23/16/ER Signed Date of Exam:11/23/16 CT ABDOMEN/PELVIS WO PROCEDURE: CT abdomen and pelvis without contrast. TECHNIQUE: Multiple contiguous axial images were obtained through the abdomen and pelvis without the use of intravenous contrast. INDICATION: Diarrhea. COMPARISON: None. FINDINGS: Lung bases are clear. The liver, gallbladder, pancreas, spleen, and right adrenal gland are negative on this noncontrast exam. Nonspecific nodular thickening of the left adrenal gland. Large renal stone in the left renal pelvis measuring up to 1.5 cm. There is moderate left pyelocaliectasis. Probable left renal cyst measuring up to 5.1 cm. 0.9 cm nonobstructing calyceal tip renal stone in the right kidney. No right hydronephrosis. Hysterectomy. Sigmoid anastomosis. Appendectomy. Left parasagittal anterior abdominal wall hernia containing a normal-appearing loop of small bowel. This measures approximately 3.5 cm at its opening. Moderate colonic diverticulosis. There are mild inflammatory changes and bowel wall thickening about the proximal sigmoid colon. No evidence of bowel obstruction. No free intraperitoneal air or fluid. No lymphadenopathy. Moderate degenerative changes in the visualized spine. No acute osseous findings. IMPRESSION: 1. CT findings consistent with uncomplicated diverticulitis in the proximal sigmoid colon. No free intraperitoneal air or fluid collections. Recommend endoscopy when clinically appropriate to exclude underlying mass. 2. Large renal stone in the left renal pelvis measuring up to 1.5 cm results in moderate left hydronephrosis. 3. Nonobstructing calyceal tip renal stone in the right kidney measuring up to 0.9 cm. 4. Left parasagittal anterior abdominal wall hernia contains a normal-appearing loop of small bowel. No evidence of obstruction. Dictated by: Dictated on workstation # [id number] Dict: 11/23/161906 Trans: 11/23/161999 [id number] Interpreted by: DEANNA DIA MD Electronically signed by: DEANNA DIA MD 11/23/161999 Departure Communication Progress Notes Patient has no nausea or vomiting and has been afebrile. Her CT does not show any free air or fluid or abscess so she should be fine for outpatient therapy. Because she is on duloxetine, ciprofloxacin will not be used. We will use Augmentin but the lower dose of 500 mg because of her stage II kidney disease. Impression Impression: Primary Impression: Diverticulitis of intestine Disposition: HOME, SELF-CARE Condition: Stable Departure-Patient Inst. Decision time for Depature: 20:07 Referrals: FELIZ LINCOLN MD (PCP/Family) Primary Care Physician Patient Instructions: Diverticulitis (DC) Add. Discharge Instructions: 1. Drink plenty of fluids. Pedialyte is a great choice to stay hydrated as it has many electrolytes in it. Take the antibiotics as directed in addition to the pain pills. Return to the emergency room for any worsening pain, fevers or bloody diarrhea. Follow-up with Dr. lincoln in the next 3-4 days. All discharge instructions reviewed with patient and/or family. Voiced understanding. Scripts Hydrocodone/Acetaminophen (Dewey 5-325 Tablet) 1 Each Tablet 1 EACH PO Q6H Y for NAUSEA/VOMITING-1ST LINE, #20 TAB Prov: JASON PALMER APRN 11/23/16 Ondansetron (Zofran Odt) 8 Mg Tab.rapdis 8 MG PO Q6H Y for NAUSEA/VOMITING-1ST LINE, #10 TAB Prov: JASON PALMER APRN 11/23/16 Amoxicillin/Potassium Clav (Augmentin 500-125 Tablet) 1 Each Tablet 1 EACH PO BID, #14 TAB Prov: JASON PALMER APRN 11/23/16 JASON PALMER APRN Nov 23, 2016 18:40
--- NOTE | 2016-11-23 19:22 | Diagnostic Imaging Report ---
PROCEDURE: CT abdomen and pelvis without contrast. TECHNIQUE: Multiple contiguous axial images were obtained through the abdomen and pelvis without the use of intravenous contrast. INDICATION: Diarrhea. COMPARISON: None. FINDINGS: Lung bases are clear. The liver, gallbladder, pancreas, spleen, and right adrenal gland are negative on this noncontrast exam. Nonspecific nodular thickening of the left adrenal gland. Large renal stone in the left renal pelvis measuring up to 1.5 cm. There is moderate left pyelocaliectasis. Probable left renal cyst measuring up to 5.1 cm. 0.9 cm nonobstructing calyceal tip renal stone in the right kidney. No right hydronephrosis. Hysterectomy. Sigmoid anastomosis. Appendectomy. Left parasagittal anterior abdominal wall hernia containing a normal-appearing loop of small bowel. This measures approximately 3.5 cm at its opening. Moderate colonic diverticulosis. There are mild inflammatory changes and bowel wall thickening about the proximal sigmoid colon. No evidence of bowel obstruction. No free intraperitoneal air or fluid. No lymphadenopathy. Moderate degenerative changes in the visualized spine. No acute osseous findings. IMPRESSION: 1. CT findings consistent with uncomplicated diverticulitis in the proximal sigmoid colon. No free intraperitoneal air or fluid collections. Recommend endoscopy when clinically appropriate to exclude underlying mass. 2. Large renal stone in the left renal pelvis measuring up to 1.5 cm results in moderate left hydronephrosis. 3. Nonobstructing calyceal tip renal stone in the right kidney measuring up to 0.9 cm. 4. Left parasagittal anterior abdominal wall hernia contains a normal-appearing loop of small bowel. No evidence of obstruction. Dictated by: Dictated on workstation # [id number]
[2016-11-23 19:37] LABS: BASOPHILS % (AUTO) 0 % (0-10); EOSINOPHILS # (AUTO) 0.1 10^3/uL (0.0-0.3); EOSINOPHILS % (AUTO) 1 % (0-10); LYMPHOCYTES % (AUTO) 18 % (12-44); MEAN CORPUSCULAR HEMOGLOBIN 28 PG (25-34); MEAN CORPUSCULAR HGB CONC 33 G/DL (32-36); MEAN CORPUSCULAR VOLUME 86 FL (80-99); MEAN PLATELET VOLUME 9.9 FL (7.4-10.4); MONOCYTES # (AUTO) 1.3 X 10^3 (0.0-1.0); MONOCYTES % (AUTO) 8 % (0-12); NEUTROPHILS % (AUTO) 73 % (42-75); PLATELET COUNT 243 10^3/uL (130-400); RED BLOOD COUNT 4.93 10^6/uL (4.35-5.85); RED CELL DISTRIBUTION WIDTH 13.9 % (10.0-14.5); WHITE BLOOD COUNT 16.4 10^3/uL (4.3-11.0)
[2016-11-23] MEDS ORDERED: metroNIDAZOLE 500 MG (FLAGYL) TAB PO ONE (19:45)
[2016-11-23] MEDS ORDERED: HYDROcodone/APAP 5 MG/325 MG (LORTAB) TAB PO ONE (19:45)
[2016-11-23] MEDS ORDERED: cefTRIAXone INJECTION 1,000 MG in NS (IVPB) 50 ML IV ONE (19:45)
[2016-11-23 19:49] LABS: BAND NEUTROPHILS 0 %; BASOPHILS % (MANUAL) 0 %; EOSINOPHILS % (MANUAL) 2 %; LYMPHOCYTES % (MANUAL) 29 %; NEUTROPHILS % (MANUAL) 67 %
[2016-11-23 19:57] LABS: ALBUMIN 3.7 GM/DL (3.2-4.5); BILIRUBIN,TOTAL 0.6 MG/DL (0.1-1.0); CALCIUM 9.1 MG/DL (8.5-10.1); CREATININE SERUM 0.97 MG/DL (0.60-1.30); POTASSIUM 3.1 MMOL/L (3.6-5.0)
[2016-11-23] MEDS ORDERED: KCL 10 MEQ TAB (MICRO K) PO ONE (20:00)
[2016-11-23] MEDS ORDERED: HYDR-757 PO (20:10)
[2016-11-23] MEDS ORDERED: AMOX-355 PO (20:10)
[2016-11-23] MEDS ORDERED: ONDA8TAB9 PO (20:10)
[2016-11-23 21:22] VITALS: BP 151/114
== END 2016-11-23 21:22 | disposition home or self-care (01) ==
LOC: EDUNIT# 17:57 → ER 17:59
DX: K57.92 Diverticulitis of intestine, part unspecified, without perforation or abscess without bleeding (principal)
CPT/HCPCS: 36415; 74176; 80053; 85007; 85027; 96361; 96365

== ENCOUNTER 2016-12-09 07:05 | Inpatient (IN) | payer MEDICAID ==
[~2016-12-09] VITALS: Ht 160 cm; Wt 127.1 kg
[2016-12-09] VITALS (7 sets, daily range): BP systolic 123–156; BP diastolic 70–90
[~2016-12-09 07:05] MED LIST changes: +AMOX-355 PO; +HYDR-757 PO; +ONDA8TAB9 PO
[2016-12-09] MEDS ORDERED: NS IV 1000 ML 1,000 ML IV ONE ×2 (07:49→09:09)
--- NOTE | 2016-12-09 07:54 | ED GI ---
General Chief Complaint: Abdominal/GI Problems Stated Complaint: INTESTINAL PROBLEMS/DIARRHEA Nursing Triage Note: Sympoms started as constipation 3 weeks ago followed by intermittant diarrhea. Pt awake, alert, and active and in no acute distress. Sepsis Screen: No Definite Risk Source of Information: Patient, Old Records Exam Limitations: No Limitations History of Present Illness Time Seen By Provider: 07:44 Initial Comments Patient presents to ER with chief complaint of loss patient 3 weeks ago for which he took 2 Dulcolax and then since then has had nothing but loose watery stools. 2 weeks ago she was in the ER and was seen and diagnosed with diverticulitis and put on amoxicillin and Flagyl. She says that she had Flagyl at home already that was prescribed by her PCP. She has been using the Flagyl for several years because she has lots of problems with her bowels and diarrhea area she's had no generalized the past and is had up to 14 inches of her colon removed secondary to diverticulitis by a surgeon in [place]. States that this morning all having a bowel moment she notes some pink tinged mucus and maybe a clot. She is having no chest pain or shortness of breath but she is having some left lower quadrant abdominal pain. No nausea or vomiting. No rash or fevers. She says she may have had a subjective fever 3 weeks ago when all this started. She has completed her amoxicillin and is still taking the Flagyl. Allergies and Home Medications Allergies Coded Allergies: No Known Drug Allergies (Unverified , 12/09/16) Home Medications Albuterol/Ipratropium 4 Gm Aero, 2 PUFF IH Q4H PRN for SHORTNESS OF BREATH, ( Reported) Amlodipine Besylate 10 Mg Tablet, 10 MG PO DAILY, (Reported) Calcium Carbonate 500 Mg Tablet, 1,000 MG PO DAILY, (Reported) TAKES TWO (500 MG) TABLETS Carvedilol 12.5 Mg Tablet, 12.5 MG PO DAILY, (Reported) Cholecalciferol (Vitamin D3) 1,000 Unit Capsule, 1,000 UNIT PO DAILY, (Reported) Cholestyramine (with Sugar) 4 Gm Powd.pack, 2 PACKET PO DAILY PRN for DIARRHEA, (Reported) Duloxetine HCl 60 Mg Capsule.dr, 60 MG PO DAILY, (Reported) Fluoxetine HCl 40 Mg Capsule, 80 MG PO DAILY, (Reported) TAKES 2 (40MG) CAPSULES Lisinopril 20 Mg Tablet, 20 MG PO DAILY, (Reported) Magnesium Oxide 400 Mg Tablet, 400 MG PO DAILY, (Reported) [place] 3 Polyunsat Fatty Acids 1,000 Mg Cap, 1,000 MG PO DAILY, (Reported) Oxycodone HCl 30 Mg Tab.er.12h, 30 MG PO Q12H, (Reported) Oxycodone HCl/Acetaminophen 1 Each Tablet, 1 TAB PO Q6H PRN for BREAKTHROUGH PAIN, (Reported) Sitagliptin Phosphate 100 Mg Tablet, 100 MG PO DAILY, (Reported) Vitamin B Complex 1 Each Tablet, 1 TAB.CHEW PO DAILY, (Reported) Review of Systems Constitutional: No chills, No diaphoresis, No fever, No malaise Respiratory: Denies Cough, Denies Shortness of Air Cardiovascular: Denies Chest Pain, Denies Lightheadedness, Denies Palpitations Gastrointestinal: Denies Abdomen Distended, Abdominal Pain (llq), Blood Streaked Stools, Denies Constipated, Diarrhea, Denies Nausea, Denies Vomiting Genitourinary: Denies Burning, Denies Discharge Musculoskeletal: No back pain, No joint pain Skin: No pruritus, No rash Psychiatric/Neurological: Denies Headache, Denies Numbness, Denies Paresthesia Past Oxgyiqq-Zjfojc-Xujwtn Hx Patient Social History Alcohol Use: Denies Use Recreational Drug Use: No Smoking Status: Current Everyday Smoker Type Used: Cigarettes Recent Foreign Travel: No Contact w/Someone Who Travel: No Recent Infectious Disease Expo: No Recent Hopitalizations: No Immunizations Up To Date Tetanus Booster (TDap): More than 5yrs Date of Pneumonia Vaccine: Apr 12, 2013 Date of Influenza Vaccine: Jan 18, 2015 Surgeries History of Surgeries: Yes (COLON RESECTION, C/S X2, BILAT CTR, c-spine fusion) Surgeries: Section, Orthopedic Respiratory History of Respiratory Disorde: Yes (BI-PAP, OXYGEN) Respiratory Disorders: Sleep Apnea, COPD, Emphysema Currently Using BIPAP: Yes Cardiovascular History of Cardiac Disorders: Yes Cardiac Disorders: High Cholesterol, Hypertension Neurological History of Neurological Disord: Yes (chronic numbness rt proximal lateral thigh.) Neurological Disorders: Neuropathy 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 System Hx 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 Disorders: No Female 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 Disorders: Denies Genitourinary History of Genitourinary Disor: No Gastrointestinal History of Gastrointestinal Di: Yes (COLON RESECTION, ) Gastrointestinal Disorders: Chronic Constipation Musculoskeletal History of Musculoskeletal Dis: Yes (STENOSIS. chronic neck pain.) Musculoskeletal Disorders: Degenerate Disk Disease, Fibromyalgia, Chronic Back Pain Endocrine History of Endocrine Disorders: Yes Endocrine Disorders: Diabetes, Non-Insulin dep Cancer History of Cancer: No Psychosocial History of Psychiatric Problem: Yes Behavioral Health Disorders: Depression Integumentary History of Skin or Integumenta: No Blood Transfusions History of Blood Disorders: No Family Medical History Significant Family History: No Pertinent Family Hx Family Medial History: Arthritis 19 FATHER Cardiovascular disease 19 FATHER Completed stroke 19 MOTHER Diabetes mellitus 19 FATHER Hypertension 19 FATHER G8 SISTER Myocardial infarction 19 FATHER Respiratory disorder 19 MOTHER Physical Exam Vital Signs VS - Last 72 Hours, by Label 12/09/16 07:15 Temp 97.5 Pulse 88 Resp 16 B/P (MAP) 160/95 O2 Delivery Room Air Capillary Refill : Less Than 3 Seconds General Appearance: WD/WN, mild distress HEENT: PERRL/EOMI, pharynx normal Neck: supple, normal inspection Respiratory: lungs clear, normal breath sounds Cardiovascular: normal peripheral pulses, regular rate, rhythm, no edema Peripheral Pulses: 2+ Radial Pulses (R), 2+ Radial Pulses (L) Gastrointestinal: normal bowel sounds, soft, no organomegaly, tenderness (llQ) Extremities: non-tender, normal inspection, normal capillary refill Back: normal inspection, no CVA tenderness, no vertebral tenderness Neurologic/Psychiatric: alert, oriented x 3 Skin: normal color, warm/dry Lymphatic: no adenopathy Focused Exam Evaluation Lactate Level Laboratory Tests 12/09/16 08:30: Lactic Acid Level 2.07*H Lactic Acid Level Laboratory Tests Test 12/09/16 08:30 Lactic Acid Level 2.07 MMOL/L (0.50-2.00) *H Progress/Results/Core Measures Results/Orders Lab Results Laboratory Tests Test 12/09/16 08:30 Range/Units White Blood Count 14.6 H 4.3-11.0 10^3/uL Red Blood Count 5.08 4.35-5.85 10^6/uL Hemoglobin 14.3 11.5-16.0 G/DL Hematocrit 44 35-52 % Mean Corpuscular Volume 87 80-99 FL Mean Corpuscular Hemoglobin 28 25-34 PG Mean Corpuscular Hemoglobin Concent 32 32-36 G/DL Red Cell Distribution Width 14.4 10.0-14.5 % Platelet Count 250 130-400 10^3/uL Mean Platelet Volume 10.2 7.4-10.4 FL Neutrophils (%) (Auto) 74 42-75 % Lymphocytes (%) (Auto) 17 12-44 % Monocytes (%) (Auto) 7 0-12 % Eosinophils (%) (Auto) 2 0-10 % Basophils (%) (Auto) 0 0-10 % Neutrophils # (Auto) 10.8 H 1.8-7.8 X 10^3 Lymphocytes # (Auto) 2.5 1.0-4.0 X 10^3 Monocytes # (Auto) 1.0 0.0-1.0 X 10^3 Eosinophils # (Auto) 0.3 0.0-0.3 10^3/uL Basophils # (Auto) 0.0 0.0-0.1 10^3/uL Neutrophils % (Manual) 70 % Lymphocytes % (Manual) 18 % Monocytes % (Manual) 8 % Eosinophils % (Manual) 4 % Toxic Granulation 1+ Blood Morphology Comment NORMAL Urine Color YELLOW Urine Clarity CLEAR Urine pH 5 5-9 Urine Specific [place] 1.020 1.016-1.022 Urine Protein 2+ H NEGATIVE Urine Glucose (UA) NEGATIVE NEGATIVE Urine Ketones NEGATIVE NEGATIVE Urine Nitrite NEGATIVE NEGATIVE Urine Bilirubin NEGATIVE NEGATIVE Urine Urobilinogen NORMAL NORMAL MG/DL Urine Leukocyte Esterase 2+ H NEGATIVE Urine RBC (Auto) 4+ H NEGATIVE Urine RBC 25-50 H /HPF Urine WBC 2-5 /HPF Urine Squamous Epithelial Cells 0-2 /HPF Urine Crystals PRESENT H /LPF Urine Calcium Oxalate Crystals MODERATE H /LPF Urine Bacteria FEW H /HPF Urine Casts PRESENT /LPF Urine Hyaline Casts 0-2 H /LPF Urine Mucus NEGATIVE /LPF Urine Culture Indicated YES Stool Occult Blood Immunoassay POSITIVE H NEGATIVE Sodium Level 140 135-145 MMOL/L Potassium Level 3.9 3.6-5.0 MMOL/L Chloride Level 106 98-107 MMOL/L Carbon Dioxide Level 21 21-32 MMOL/L Anion Gap 13 5-14 MMOL/L Blood Urea Nitrogen 21 H 7-18 MG/DL Creatinine 1.06 0.60-1.30 MG/DL Estimat Glomerular Filtration Rate 53 BUN/Creatinine Ratio 20 Glucose Level 135 H 70-105 MG/DL Lactic Acid Level 2.07 *H 0.50-2.00 MMOL/L Calcium Level 9.3 8.5-10.1 MG/DL Magnesium Level 2.1 1.8-2.4 MG/DL Total Bilirubin 0.4 0.1-1.0 MG/DL Aspartate Amino Transf (AST/SGOT) 16 5-34 U/L Alanine Aminotransferase (ALT/SGPT) 14 0-55 U/L Alkaline Phosphatase 55 40-136 U/L Troponin I < 0.30 <0.30 NG/ML Total Protein 7.5 6.4-8.2 GM/DL Albumin 4.0 3.2-4.5 GM/DL Lipase 110 H 8-78 U/L Micro Results Microbiology 12/09/16 Fecal Leukocyte Stain, Resulted Pending 12/09/16 C. difficile GDH Antigen & Toxins - Final, Resulted 12/09/16 Stool Culture, Resulted Pending My Orders Orders - MARVIN CORREIA Ct Abdomen/Pelvis Wo (12/09/16 07:49) Cbc With Automated Diff (12/09/16 07:49) Comprehensive Metabolic Panel (12/09/16 07:49) Lactic Acid Analyzer (12/09/16 07:49) Lipase (12/09/16 07:49) Magnesium (12/09/16 07:49) Troponin I (12/09/16 07:49) Ua Culture If Indicated (12/09/16 07:49) Saline Lock/Iv-Start (12/09/16 07:49) Ns Iv 1000 Ml (Sodium Chloride 0.9%) (12/09/16 07:49) Occult Blood Stool (12/09/16 07:49) Manual Differential (12/09/16 08:30) C Difficile Ag + Toxin A/B. (12/09/16 08:46) Parasite Scrn Stool Giard Cryp (12/09/16 08:46) Stool Culture (12/09/16 08:46) Fecal Wbc (12/09/16 08:46) Urine Culture (12/09/16 08:30) Saline Lock/Iv-Start (12/09/16 09:09) Ns Iv 500 Ml (Sodium Chloride 0.9%) (12/09/16 09:09) Ns Iv 1000 Ml (Sodium Chloride 0.9%) (12/09/16 09:09) Blood Culture (12/09/16 09:09) Sputum Culture (12/09/16 09:09) Protime With Inr (12/09/16 09:09) Partial Thromboplastin Time (12/09/16 09:09) Chest 1 View, Ap/Pa Only (12/09/16 09:09) O2 (12/09/16 09:09) Vital Signs Adult Sepsis Patie Q1HR (12/09/16 09:09) Remove Rings In Anticipation O (12/09/16 09:09) Oxycodone/Apap 5/325mg Tablet (Percocet (12/09/16 09:45) Vancomycin Oral Suspension (Vancomycin O (12/09/16 10:03) Metronidazole 500mg/100ml Ivpb (Flagyl 5 (12/09/16 10:15) Medications Given in ED Current Medications Medications Dose Ordered Sig/Gracie Route Start Time Stop Time Status Last Admin Dose Admin Metronidazole 100 ml @ 100 mls/hr ONCE ONCE IV 12/09/16 10:15 12/09/16 11:14 DC 12/09/16 10:41 100 MLS/HR Oxycodone/ Acetaminophen 1 tab ONCE ONCE PO 12/09/16 09:45 12/09/16 09:46 DC 12/09/16 10:44 1 TAB Sodium Chloride 500 ml @ 0 mls/hr Q0M ONCE IV 12/09/16 09:09 12/09/16 09:12 DC 12/09/16 11:21 0 MLS/HR Sodium Chloride 1,000 ml @ 0 mls/hr Q0M ONCE IV 12/09/16 07:49 12/09/16 07:52 DC 12/09/16 08:29 1,000 MLS/HR Sodium Chloride 1,000 ml @ 0 mls/hr Q0M ONCE IV 12/09/16 09:09 12/09/16 09:12 DC 12/09/16 09:38 0 MLS/HR Vital Signs/I&O Vital Sign - Last 12Hours 12/09/16 07:15 Temp 97.5 Pulse 88 Resp 16 B/P (MAP) 160/95 O2 Delivery Room Air Blood Pressure Mean: 116 Progress Note #1: Time: 09:09 Progress Note Patient had diverticulitis and has an increased lactate and lipase elevated. She may still be having diverticulitis. We'll give her some more fluids and plan on keeping her overnight at the very least. Progress Note #2: Time: 09:[address] scan with radiology and he feels this still has no abscess or free fluid that diverticulitis. C. difficile is positive so we'll go ahead and initiate oral vancomycin and IV Flagyl. She is septic so we'll get her set up for inpatient stay. Diagnostic Imaging Diagonstic Imaging: CT Plain Films/CT/US/NM/MRI: abdomen, pelvis (C/O) Comments Mostly decompressed colon. Some inflammation of the rectum and large intestine. No free air abscess or free fluid. There is a loop of non-obstructive bowel and I periumbilical hernia. Incidental large kidney stones nonobstructive. There are some nodules on the jejunum that would need follow-up scan in 6 months. Reviewed: Reviewed by Me, Discussed w/Radiologist Diagonstic Imaging: Xray Plain Films/CT/US/NM/MRI: chest Comments No acute cardiopulmonary processes noted. Poorly penetrated study VIA [facility]. [place], [place] NAME: ASHLEY VENTURA [facility] REC#: [id number] PT STATUS: REG ER : 1955 PHYSICIAN: MARVIN CORREIA MD ADMIT DATE: 12/09/16/ER Draft Date of Exam:12/09/16 CHEST 1 VIEW, AP/PA ONLY INDICATION: Sepsis and diarrhea. Frontal chest obtained at 9:23 a.m. FINDINGS: Heart is borderline in size. There is mild central vascular prominence. There is no focal infiltrate or pneumothorax or pleural fluid. IMPRESSION: Borderline heart size and mild central vascular prominence. No focal consolidation or pneumothorax or pleural fluid. Dictated on workstation # [id number] Dict: 12/09/16 0930 Trans: 12/09/16 0932 [id number] Interpreted by: HIRO CUENCA MD Electronically signed by: Reviewed: Reviewed by Me Departure Communication (Admissions) Time/Spoke to Admitting Phy: 09:59 Communication Conrad ok to admit and agrees with oral vancomycin and IV Flagyl as well as consult Dr. Olvera, General Surgery. She'll see the patient. Time/Spoke to Consulting Phy: 10:12 Communication/Consulting Dr Olvera discussed case and he says he'll see the patient. Impression Impression: Primary Impression: Diverticulitis of intestine Qualified Codes: K57.33 - Diverticulitis of large intestine without perforation or abscess with bleeding Additional Impressions: C. difficile colitis Sepsis Qualified Codes: A41.9 - Sepsis, unspecified organism Disposition: ADMITTED INPATIENT Condition: Stable Admissions Decision to Admit Reason: Admit from ER (General) Decision to Admit/Date: Dec 09, 2016 Time/Decision to Admit Time: 10:02 Departure-Patient Inst. Referrals: FELIZ LINCOLN MD (PCP/Family) Primary Care Physician Copy Copies To 1: FELIZ LINCOLN MD, TITUS J Dec 09, 2016 07:54
[2016-12-09 08:39] LABS: BILIRUBIN,URINE NEGATIVE (NEGATIVE); KETONES,URINE NEGATIVE (NEGATIVE); LEUKOCYTE ESTERASE ,URINE 2+ (NEGATIVE); NITRITE,URINE NEGATIVE (NEGATIVE); PH,URINE 5 (5-9); PROTEIN,URINE 2+ (NEGATIVE); UROBILINOGEN,URINE NORMAL (NORMAL)
[2016-12-09 08:40] LABS: BASOPHILS % (AUTO) 0 % (0-10); EOSINOPHILS # (AUTO) 0.3 10^3/uL (0.0-0.3); EOSINOPHILS % (AUTO) 2 % (0-10); LYMPHOCYTES # (AUTO) 2.5 X 10^3 (1.0-4.0); LYMPHOCYTES % (AUTO) 17 % (12-44); MEAN CORPUSCULAR HEMOGLOBIN 28 PG (25-34); MEAN CORPUSCULAR HGB CONC 32 G/DL (32-36); MEAN CORPUSCULAR VOLUME 87 FL (80-99); MEAN PLATELET VOLUME 10.2 FL (7.4-10.4); MONOCYTES % (AUTO) 7 % (0-12); NEUTROPHILS # (AUTO) 10.8 X 10^3 (1.8-7.8); NEUTROPHILS % (AUTO) 74 % (42-75); PLATELET COUNT 250 10^3/uL (130-400); RED BLOOD COUNT 5.08 10^6/uL (4.35-5.85); RED CELL DISTRIBUTION WIDTH 14.4 % (10.0-14.5); WHITE BLOOD COUNT 14.6 10^3/uL (4.3-11.0)
[2016-12-09 08:54] LABS: CALCIUM OXALATE CRYSTALS,UR MODERATE /LPF; HYALINE CASTS, URINE 0-2 /LPF; SQUAMOUS EPITHELIAL CELL,UR 0-2 /HPF
[2016-12-09 09:01] LABS: ALANINE AMINOTRANSFERASE 14 U/L (0-55); ANION GAP 13 MMOL/L (5-14); ASPARTATE AMINO TRANSFERASE 16 U/L (5-34); BILIRUBIN,TOTAL 0.4 MG/DL (0.1-1.0); BLOOD UREA NITROGEN 21 MG/DL (7-18); BUN/CREATININE RATIO 20; CALCIUM 9.3 MG/DL (8.5-10.1); CARBON DIOXIDE 21 MMOL/L (21-32); CHLORIDE 106 MMOL/L (98-107); CREATININE SERUM 1.06 MG/DL (0.60-1.30); EOSINOPHILS % (MANUAL) 4 %; GFR ESTIMATED 53; GLUCOSE 135 MG/DL (70-105); LIPASE 110 U/L (8-78); LYMPHOCYTES % (MANUAL) 18 %; MAGNESIUM 2.1 MG/DL (1.8-2.4); NEUTROPHILS % (MANUAL) 70 %; POTASSIUM 3.9 MMOL/L (3.6-5.0); SODIUM 140 MMOL/L (135-145); TOTAL PROTEIN 7.5 GM/DL (6.4-8.2)
[2016-12-09] MEDS ORDERED: NS IV 500 ML 500 ML IV ONE (09:09)
[2016-12-09 09:11] LABS: TROPONIN I < 0.30 NG/ML (<0.30)
--- NOTE | 2016-12-09 09:33 | Diagnostic Imaging Report ---
INDICATION: Sepsis and diarrhea. Frontal chest obtained at 9:23 a.m. FINDINGS: Heart is borderline in size. There is mild central vascular prominence. There is no focal infiltrate or pneumothorax or pleural fluid. IMPRESSION: Borderline heart size and mild central vascular prominence. No focal consolidation or pneumothorax or pleural fluid. Dictated by: Dictated on workstation # [id number]
[2016-12-09] MEDS ORDERED: oxyCODONE/APAP 5/325MG (PERCOCET 5) TABLET PO ONE (09:45)
[2016-12-09] MEDS ORDERED: VANCOMYCIN ORAL SUSPENSION 60 ML BOTTLE PO STA (10:03)
--- NOTE | 2016-12-09 10:11 | Diagnostic Imaging Report ---
PROCEDURE: CT abdomen and pelvis without contrast. TECHNIQUE: Multiple contiguous axial images were obtained through the abdomen and pelvis without the use of intravenous contrast. INDICATION: Low abdominal pain The recent CT abdomen/pelvis exam performed on 11/23/16 noted a 1.5 CM calculus in the left renal pelvis. This did seem to be producing moderate hydronephrosis of the left collecting system. On this exam that calculus is again identified and seems unchanged in position. The left renal pelvis remains distended but also stable in appearance when compared to prior study. The suspected cysts involving the left kidney and the nonobstructive calculus in the inferior pole of the right kidney seen previously also are again evident and no different. The previous study noted diverticulosis of the sigmoid colon without evidence for diverticulitis. On this exam however the wall of the colon does seem somewhat thickened and there is slight distortion of the pericolonic fat. I suspect that there is an element of acute diverticulitis present. There is no diverticular mass or abscess visualized however. As on the prior exam there does appear to be a fair amount of fecal material throughout the descending transverse and descending colon. The appendix was not well-visualized but there are no indirect signs of acute appendicitis. The urinary bladder is grossly unremarkable. The uterus is surgically absent. Previous study also showed a defect in the intra-abdominal wall with segments of bowel extending through the defect. That finding is again evident and no different. There is still no evidence for obstruction of the bowel. The liver, spleen, pancreas, gallbladder, aorta and inferior vena cava are unremarkable for an acute abnormality. The 2 small (7 MM) low density nodules associated with the left adrenal gland evident on the prior study are again visualized and unchanged. I do suspect that these are benign. However unless there are more distant studies available to demonstrate that these findings are stable, then MRI should be considered for further study. If the MRI exam is not performed, then a short-term (6 month) followup CT abdomen exam would be recommended. The lung bases are clear. The bone windows show no sign of a fracture or of a destructive lesion. As noted on the prior exam there is fairly severe degenerative disc and bony disease at L5-S1. IMPRESSION: 1. The thickened appearance of the wall of the sigmoid colon and the distortion of the pericolonic fat does suggest that there is an element of diverticulitis present. There is no diverticular mass or abscess and there is no sign of a microperforation. 2. The overall appearance of the abdomen and pelvis has not changed significantly otherwise. The 1.5 CM calculus in the left renal pelvis and the defect in the anterior abdominal wall with segments of bowel extending into the subcutaneous fat seen previously are again evident and no different. 3. The low density nodule associated with the left adrenal gland are most likely benign. Recommendations as above. 4. These results were discussed with Dr. Carlos Manuel Kirk. Dictated by: Dictated on workstation # [id number]
[2016-12-09] MEDS ORDERED: metroNIDAZOLE 500MG/100ML IVPB 100 ML IV ONE (10:15)
--- OUTSIDE RECORDS SUMMARY | 2016-12-09 10:24 | XMS REPORT | Clinical Summary ---
Author Author [facility] Organization [facility] Address Unknown Phone Unavailable Care Team Providers Care Hydrographic Surveyor Name Role Phone PCP Unavailable Source Comments Some departments are not documenting in the electronic medical record. If you do not see the information that you expected, contact Release of Information in the Health Information Management department at [phone] for further assistance in locating additional records.[facility] Allergies Not on File Current Medications Not [...]
[2016-12-09] MEDS ORDERED: ACETAMINOPHEN 500 MG TAB (TYLENOL) PO PRN (11:30)
[2016-12-09] MEDS ORDERED: CATHETER FLUSH 10 ML SYR IV PRN (11:30)
[2016-12-09] MEDS ORDERED: oxyCODONE/APAP 5/325MG (PERCOCET 5) TABLET PO PRN (11:45)
[2016-12-09] MEDS ORDERED: VITA-189 PO (12:04)
[2016-12-09] MEDS ORDERED: OMG1KC PO (12:04)
[2016-12-09] MEDS ORDERED: CARV12.53 PO (12:04)
[2016-12-09] MEDS ORDERED: CHOL10007 PO (12:04)
[2016-12-09] MEDS ORDERED: OXYC-465 PO (12:04)
[2016-12-09] MEDS ORDERED: SITA100T12 PO (12:04)
[2016-12-09] MEDS ORDERED: OXYC30TA77 PO (12:04)
[2016-12-09] MEDS: NS IV 1000 ML 1,000 ML IV SCH ×2 (12:58→22:04)
--- NOTE | 2016-12-09 13:10 | History & Physical-Hospitalist ---
HPI History of Present Illness: HPI/Chief Complaint CC: Fever, weakness with acute C diff colitis with recent abx exposure for acute diverticulitis HPI: This is a 61yoWF clinic patient of Dr Francois in [facility] that presented to the ER w/3 week h/o fever and abdominal pain with diarrhea. She as seen in ER 2 weeks ago placed on abx for diverticulitis and then began to worsen the last several days with frequent diarrhea and was dx with c diff colitis. She has chronic colon issues and her last Colonoscopy was 2012. She sees Dr Aguirre for nephrology for Stage II kidney failure and needs to see Dr Kaur for chronic hypoxia and COPD with BRAYAN. Currently she just had a diarrheal stool and needs her pain medicine that she takes at home chronically of Percocet 10/325. She wears home O2 all the time at home and uses it in her CPAP at night and with her naps. She lives alone with her dog. Source: patient Exam Limitations: no limitations Date Seen 12/09/16 Time Seen by Provider: 12:40 Attending Physician Dang Licea Maxwell MD Referring Physician Date of Admission Dec 09, 2016 at 10:15 Home Medications & Allergies Home Medications Reviewed patient Home Medication Reconciliation Form Allergies Allergies Coded Allergies No Known Drug Allergies (Unverified12/09/16) Past Qvltjwv-Juxavl-Cuifni Hx Patient Social History Marrital Status: single Employed/Student: retired Alcohol Use: Denies Use Recreational Drug Use: No Smoking Status: Current Everyday Smoker Type Used: Cigarettes Recent Foreign Travel: No Contact w/other who traveled: No Recent Hopitalizations: No Recent Infectious Disease Expo: No Immunizations Up To Date Tetanus Booster (TDap): More than 5yrs Date of Pneumonia Vaccine: Apr 12, 2013 Date of Influenza Vaccine: Jan 18, 2015 Surgeries Yes (COLON RESECTION, C/S X2, BILAT CTR, c-spine fusion) Section, Orthopedic Respiratory Yes (BI-PAP, OXYGEN) COPD, Emphysema Currently Using BIPAP: Yes Cardiovascular Yes High Cholesterol, Hypertension Neurological Yes (chronic numbness rt proximal lateral thigh.) Neuropathy 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 System Hx 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 Disorders: No Female 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 Disorders: Denies Genitourinary No Gastrointestinal Yes (COLON RESECTION, ) Chronic Constipation Musculoskeletal Yes (STENOSIS. chronic neck pain.) Degenerate Disk Disease, Fibromyalgia, Chronic Back Pain Endocrine History of Endocrine Disorders: Yes Endocrine Disorders: Diabetes, Non-Insulin dep Cancer No Psychosocial History of Psychiatric Problem: Yes Behavioral Health Disorders: Depression Integumentary History of Skin or Integumenta: No Blood Transfusions History of Blood Disorders: No Family Medical History Significant Family History: No Pertinent Family Hx Family Hx: Arthritis 19 FATHER Cardiovascular disease 19 FATHER Completed stroke 19 MOTHER Diabetes mellitus 19 FATHER Hypertension 19 FATHER G8 SISTER Myocardial infarction 19 FATHER Respiratory disorder 19 MOTHER Review of Systems Constitutional: see HPI, fever, malaise, weakness EENTM: no symptoms reported Respiratory: no symptoms reported Cardiovascular: no symptoms reported Gastrointestinal: abdominal pain (LLQ), loss of appetite, nausea Genitourinary: no symptoms reported Musculoskeletal: no symptoms reported Skin: no symptoms reported Psychiatric/Neurological: No Symptoms Reported All Other Systems Reviewed Negative Unless Noted: Yes Physical Exam Physical Exam Vital Signs Vital Sign - Last 12Hours 12/09/16 07:15 Temp 97.5 Pulse 88 Resp 16 B/P (MAP) 160/95 O2 Delivery Room Air Capillary Refill : Less Than 3 Seconds General Appearance: No Apparent Distress, WD/WN, Chronically ill, Obese Eyes: Bilateral Eye Normal Inspection, Bilateral Eye PERRL HEENT: PERRL/EOMI, Normal ENT Inspection, Pharynx Normal Neck: Full Range of Motion, Normal Inspection, Non Tender, Supple, Carotid Bruit Respiratory: Chest Non Tender, Lungs Clear, Normal Breath Sounds, No Accessory Muscle Use, No Respiratory Distress Cardiovascular: Regular Rate, Rhythm, No Edema, No Gallop, No JVD, No Murmur, Normal Peripheral Pulses Gastrointestinal: Normal Bowel Sounds, No Organomegaly, No Pulsatile Mass, Non Tender, Soft Back: Normal Inspection, No CVA Tenderness, No Vertebral Tenderness Extremity: Normal Capillary Refill, Normal Inspection, Normal Range of Motion, Non Tender, No Calf Tenderness, No Pedal Edema Neurologic/Psychiatric: Alert, Oriented x3, No Motor/Sensory Deficits, Normal Mood/Affect Skin: Normal Color, Warm/Dry Lymphatic: No Adenopathy Results Results/Procedures Lab Laboratory Tests 12/09/16 08:30 Assessment/Plan Admission Diagnosis Assessment: Acute C diff colitis due to abx exposure for acute diverticulitis 2 weeks ago now w/sepsis and leukocytosis Smoker Severe COPD on continuous O2 BRAYAN uses O2 in CPAP Chronic pain Assessment and Plan Plan: IVF PO Vanco Questran, Imodium Dr Olvera consultation Reconcile home meds Dr Kaur consultation for severe COPD DANG LICEA DO Dec 09, 2016 13:10
[2016-12-09] MEDS: VANCOMYCIN ORAL 250 MG/5 ML 60 ML PO SCH ×4 (13:48→18:37)
[2016-12-09] MEDS: ONDANSETRON 4 MG/2 ML (SDV) Z0FRAN IV PRN (14:56)
[2016-12-09] MEDS ORDERED: ALBUTEROL/IPRATROP (COMBIVENT RESPIMAT) 4 GM INHALER IH PRN (15:00)
[2016-12-09] MEDS ORDERED: [UNRECOGNIZED DRUG - OTHER] PO PRN (15:00)
[2016-12-09] MEDS ORDERED: NON-FORMULARY MEDICATION 1 EA EA (Oxycodone HCl (Oxycontin) 30 MG) PO SCH (15:00)
[2016-12-09] MEDS ORDERED: CHOLESTYRAMINE PO PRN (15:00)
[2016-12-09] MEDS ORDERED: RT-ALBUTEROL/IPRATROPIUM 3 ML (DUONEB) VIAL IH PRN (15:15)
[2016-12-09] MEDS ORDERED: CHOLESTYRAMINE 4 GM (QUESTRAN LITE, PREVALITE) PKT PO PRN (15:30)
[2016-12-09] MEDS: CHOLESTYRAMINE 4 GM (QUESTRAN LITE, PREVALITE) PKT PO SCH ×2 (16:53→20:40)
[2016-12-09] MEDS: LACTOBACILLUS Acidoph/Bulgar (LACTINEX/FLORANEX) TAB PO SCH (16:53)
[2016-12-09] MEDS: oxyCODONE/APAP 10/325MG (PERCOCET 10) TABLET PO PRN (16:53)
--- NOTE | 2016-12-09 18:30 | CONSULTATION REPORT ---
DATE OF SERVICE: 12/09/2016 ADMITTING PHYSICIAN: Dang Conrad DO. ATTENDING PRIMARY CARE PHYSICIAN: Dr. Francois HISTORY OF PRESENT ILLNESS: The patient is a 61-year-old female, who presented to [facility] Emergency Department with a one-month history of crampy abdominal pain as well as diarrhea. She reports that she has had issues with diverticulitis and underwent what sounds to be a low anterior sigmoid resection in [address] Riggins. She reports that she had a colonoscopy before this as well as one afterwards. She states that she also had a large ovarian tumor requiring a hysterectomy around 2005 with a large midline incision. She has had 2 previous ventral abdominal incisional hernias that were repaired. It appears that she has recurrence of hernia, which was detected on CT scan was also identified on physical examination, which is reducible; however, tender to palpation. She also does have pain in the left lower abdominal quadrant. A CT scan did show some inflammatory changes of the colon. She also did have a stool culture, which was positive for Clostridium difficile. PAST MEDICAL HISTORY: Hypertension, hypercholesterolemia, history of Clostridium difficile colitis, history of sigmoid diverticulitis, wvg-[id number]-pylkkklyt diabetes, fibromyalgia, degenerative joint disease, COPD, emphysema and sleep apnea. PAST SURGICAL HISTORY: Low anterior colorectal resection, bilateral cataract surgery, cervical spine ORIF, ventral abdominal incisional hernia repair x2. ALLERGIES: No known drug allergies. MEDICATIONS: Albuterol 4 grams 2 puffs q.4 hours p.r.n., amlodipine 10 mg daily, carvedilol 12.5 mg daily, cholecalciferol 1000 mg daily, cholestyramine 4 grams p.r.n. and duloxetine 60 mg daily, fluoxetine 40 mg daily, lisinopril 20 mg daily, magnesium 400 mg daily, omega-3 fatty acids 1000 mg daily, oxycodone 30 mg extended release q.12h, oxycodone 10/325 q.6h. p.r.n., Januvia 100 mg daily, vitamin B daily. SOCIAL HISTORY: Positive smoke, negative alcohol. FAMILY HISTORY: Father with coronary artery disease, diabetes, hypertension, history of myocardial infarction. Mother with stroke. Sister with hypertension. REVIEW OF SYSTEMS: A well-nourished female, currently in no acute distress. She is not experiencing any shortness of breath or difficulty breathing. No chest pain, palpitations, or diaphoresis. Intermittent episodes of nausea, no vomiting. Crampy lower abdominal pain on an intermittent basis with diarrhea for the past four months. No known red blood per rectum, no any dark tarry stools. No fever or chills. No recent inadvertent weight loss. All other review of systems negative. PHYSICAL EXAMINATION: VITAL SIGNS: Temperature 98.3, blood pressure 139/94, pulse 96, respirations 20, pulse ox 93% on room air. CHEST: A few scattered rales and rhonchi bilaterally. HEART: Regular, no murmurs. EXTREMITIES: +1/3 bilateral lower extremity edema. Negative Homans sign. HEENT: No scleral icterus. NECK: No cervical lymphadenopathy. ABDOMEN: Soft. There is a ventral abdominal incisional hernia, which is reducible; however, tender to palpation. There is also pain in the left lower abdominal quadrant. No peritoneal signs. SKIN: Warm and dry. LABORATORY DATA: WBC 14.6, hemoglobin 14.3, hematocrit 44, platelets 250. ASSESSMENT AND PLAN: A 61-year-old female with persistent Clostridium difficile colitis. Her last colonoscopy was, what she believes to be, around 2010 or 2011. After the resolution of her symptoms, we will recommend a followup colonoscopy. She also does have a recurrent ventral abdominal incisional hernia, which is of significant size and at this time reducible; however, tender to palpation and may risk incarceration and strangulation. Once her Clostridium difficile gastrointestinal infection is completely clear, we will talk to her for further evaluation for repair of this hernia. Also, because she has been on Flagyl for a number of months for Clostridium difficile infection, we will proceed with a culture and sensitivity of her specific Clostridium difficile strain for potential resistance. Job ID: [id number] DocumentID: [id number] Dictated Date: 12/09/2016 15:25:43 Horser Up Date: 12/09/2016 16:59:42 Dictated By: WENDI ELIZABETH MD [facility]PITALMary
[2016-12-09] MEDS: metroNIDAZOLE 500 MG/100 ML IVPB (PRE-MIX) IV SCH (18:37)
[2016-12-09] MEDS: oxyCODONE ER 15 MG (oxyCONTIN CR) TAB PO SCH (20:40)
[2016-12-10] MEDS: VANCOMYCIN ORAL 250 MG/5 ML 60 ML PO SCH ×12 (00:05→18:32)
[2016-12-10] MEDS: metroNIDAZOLE 500 MG/100 ML IVPB (PRE-MIX) IV SCH ×2 (03:04→10:03)
[2016-12-10 03:25] VITALS: BP 149/88
[2016-12-10] MEDS: oxyCODONE/APAP 10/325MG (PERCOCET 10) TABLET PO PRN ×3 (05:36→18:43)
[2016-12-10] MEDS: CHOLESTYRAMINE 4 GM (QUESTRAN LITE, PREVALITE) PKT PO SCH ×2 (06:02→21:08)
[2016-12-10] MEDS: LACTOBACILLUS Acidoph/Bulgar (LACTINEX/FLORANEX) TAB PO SCH ×3 (06:02→15:40)
[2016-12-10] MEDS: MULTIVIT W/MINERALS TAB (THERAGRAN M) PO SCH (06:03)
[2016-12-10] MEDS: NS IV 1000 ML 1,000 ML IV SCH ×3 (07:14→18:28)
[2016-12-10 07:30] LABS: BASOPHILS % (AUTO) 0 % (0-10); EOSINOPHILS # (AUTO) 0.2 10^3/uL (0.0-0.3); EOSINOPHILS % (AUTO) 2 % (0-10); LYMPHOCYTES # (AUTO) 2.4 X 10^3 (1.0-4.0); LYMPHOCYTES % (AUTO) 18 % (12-44); MEAN CORPUSCULAR HEMOGLOBIN 28 PG (25-34); MEAN CORPUSCULAR HGB CONC 32 G/DL (32-36); MEAN CORPUSCULAR VOLUME 89 FL (80-99); MEAN PLATELET VOLUME 10.4 FL (7.4-10.4); MONOCYTES % (AUTO) 8 % (0-12); NEUTROPHILS # (AUTO) 9.8 X 10^3 (1.8-7.8); NEUTROPHILS % (AUTO) 73 % (42-75); PLATELET COUNT 186 10^3/uL (130-400); RED BLOOD COUNT 4.42 10^6/uL (4.35-5.85); RED CELL DISTRIBUTION WIDTH 14.3 % (10.0-14.5); WHITE BLOOD COUNT 13.4 10^3/uL (4.3-11.0)
[2016-12-10 07:47] LABS: ANION GAP 8 MMOL/L (5-14); BLOOD UREA NITROGEN 15 MG/DL (7-18); BUN/CREATININE RATIO 19; CARBON DIOXIDE 22 MMOL/L (21-32); CHLORIDE 109 MMOL/L (98-107); GFR ESTIMATED > 60; GLUCOSE 144 MG/DL (70-105); POTASSIUM 3.6 MMOL/L (3.6-5.0); SODIUM 139 MMOL/L (135-145)
[2016-12-10 08:00] VITALS: BP 137/84
--- NOTE | 2016-12-10 08:33 | Pulmonary Consultation ---
History of Present Illness History of Present Illness Date of Consultation 12/10/16 08:32 Time Seen by Provider: 07:59 Date of Admission History of Present Illness 61yo with hx of oxygen dependent COPD, BRAYAN, and CKD II presented to ED with worsening fever, abdominal pain, and diarrhea x 3 wks. She was placed on Abx 2 wks ago for diverticulitis. She does use her oxygen throughout the day and CPAP every night . I am consulted for pulmonary management. Allergies and Home Medications Allergies Coded Allergies: No Known Drug Allergies (Unverified , 12/09/16) Home Medications Albuterol/Ipratropium 4 Gm Aero, 2 PUFF IH Q4H PRN for SHORTNESS OF BREATH, ( Reported) Amlodipine Besylate 10 Mg Tablet, 10 MG PO DAILY, (Reported) Calcium Carbonate 500 Mg Tablet, 1,000 MG PO DAILY, (Reported) TAKES TWO (500 MG) TABLETS Carvedilol 12.5 Mg Tablet, 12.5 MG PO DAILY, (Reported) Cholecalciferol (Vitamin D3) 1,000 Unit Capsule, 1,000 UNIT PO DAILY, (Reported) Cholestyramine (with Sugar) 4 Gm Powd.pack, 2 PACKET PO DAILY PRN for DIARRHEA, (Reported) Duloxetine HCl 60 Mg Capsule.dr, 60 MG PO DAILY, (Reported) Fluoxetine HCl 40 Mg Capsule, 80 MG PO DAILY, (Reported) TAKES 2 (40MG) CAPSULES Lisinopril 20 Mg Tablet, 20 MG PO DAILY, (Reported) Magnesium Oxide 400 Mg Tablet, 400 MG PO DAILY, (Reported) [place] 3 Polyunsat Fatty Acids 1,000 Mg Cap, 1,000 MG PO DAILY, (Reported) Oxycodone HCl 30 Mg Tab.er.12h, 30 MG PO Q12H, (Reported) Oxycodone HCl/Acetaminophen 1 Each Tablet, 1 TAB PO Q6H PRN for BREAKTHROUGH PAIN, (Reported) Sitagliptin Phosphate 100 Mg Tablet, 100 MG PO DAILY, (Reported) Vitamin B Complex 1 Each Tablet, 1 TAB.CHEW PO DAILY, (Reported) Past Yrwpptf-Cvueae-Jkwecq Hx Patient Social History Alcohol Use: Rarely Uses Number of Drinks Today: 0 Recreational Drug Use: Yes (marijuana) Smoking Status: Current Everyday Smoker Type Used: Cigarettes Recent Foreign Travel: No Contact w/Someone Who Travel: No Recent Infectious Disease Expo: No Recent Hopitalizations: No Immunizations Up To Date Tetanus Booster (TDap): More than 5yrs Date of Pneumonia Vaccine: Apr 12, 2013 Date of Influenza Vaccine: Jan 18, 2015 Surgeries History of Surgeries: Yes (COLON RESECTION, C/S X2, BILAT CTR, c-spine fusion) Surgeries: Section, Orthopedic Respiratory History of Respiratory Disorde: Yes (BI-PAP, OXYGEN) Respiratory Disorders: Sleep Apnea, COPD, Emphysema Currently Using BIPAP: Yes Cardiovascular History of Cardiac Disorders: Yes Cardiac Disorders: High Cholesterol, Hypertension Neurological History of Neurological Disord: Yes (chronic numbness rt proximal lateral thigh.) Neurological Disorders: Neuropathy 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 System Hx 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 Disorders: No Female 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 Disorders: Denies Genitourinary History of Genitourinary Disor: No Gastrointestinal History of Gastrointestinal Di: Yes (COLON RESECTION, ) Gastrointestinal Disorders: Chronic Constipation Musculoskeletal History of Musculoskeletal Dis: Yes (STENOSIS. chronic neck pain.) Musculoskeletal Disorders: Degenerate Disk Disease, Fibromyalgia, Chronic Back Pain Endocrine History of Endocrine Disorders: Yes Endocrine Disorders: Diabetes, Non-Insulin dep Are Your Blood Sugars Over 250: No Cancer History of Cancer: No Psychosocial History of Psychiatric Problem: Yes Behavioral Health Disorders: Depression Integumentary History of Skin or Integumenta: No Blood Transfusions History of Blood Disorders: No Family Medical History Significant Family History: No Pertinent Family Hx Family Medial History: Arthritis 19 FATHER Cardiovascular disease 19 FATHER Completed stroke 19 MOTHER Diabetes mellitus 19 FATHER Hypertension 19 FATHER G8 SISTER Myocardial infarction 19 FATHER Respiratory disorder 19 MOTHER Review of Systems Time Seen by Provider: 08:05 Constitutional: Weakness, Malaise, No: Fever Eyes: No: Pain, Vision change, Conjunctivae inflammation, Eyelid inflammation, Other, Redness ENT: No: Ear pain, Ear discharge, Nose pain, Nose discharge, Nose congestion, Mouth pain, Mouth swelling, Throat pain, Throat swelling, Other Respiratory: Cough, Dry, Shortness of breath, SOB with excertion, Wheezing, No : Hemoptysis, Pleuritic Pain Cardiovascular: No: Chest Pain, Palpitations, Orthopnea, Paroxysmal Noc. Dyspnea, Edema, Lt Headedness, Other Gastrointestinal: Diarrhea, No: Constipation Neurological: Weakness, Incoordination, Confusion Exam Exam Vital Signs Date Time Temp Pulse Resp B/P (MAP) Pulse Ox O2 Delivery O2 Flow Rate FiO2 12/10/16 03:25 99.0 81 18 149/88 96 Room Air 12/10/16 01:00 82 12/09/16 23:35 99.1 84 18 156/90 95 Room Air 12/09/16 20:40 2.00 12/09/16 20:35 98.9 86 20 137/84 92 Room Air 12/09/16 20:15 95 Room Air 12/09/16 19:00 90 12/09/16 16:20 98.4 81 20 123/77 92 Room Air 12/09/16 14:55 80 150/80 12/09/16 14:43 NIV CPAP 2.00 12/09/16 13:45 96 139/74 12/09/16 13:03 78 12/09/16 12:50 79 143/84 12/09/16 12:00 Room Air 12/09/16 11:10 98.3 82 20 130/70 93 Room Air 12/09/16 11:00 97.5 84 16 95 12/09/16 10:44 97.5 General Appearance: No Apparent Distress, WD/WN, Chronically ill, Obese HEENT: PERRL/EOMI, Normal ENT Inspection, Pharynx Normal Neck: Full Range of Motion, Normal Inspection, Non Tender, Supple, Carotid Bruit Respiratory: Chest Non Tender, Lungs Clear, Normal Breath Sounds, No Accessory Muscle Use, No Respiratory Distress Cardiovascular: Regular Rate, Rhythm, No Edema, No Gallop, No JVD, No Murmur, Normal Peripheral Pulses Capillary Refill: Less Than 3 Seconds Peripheral Pulses: 2+ Radial Pulses (R), 2+ Radial Pulses (L) Gastrointestinal: normal bowel sounds, soft, no organomegaly, tenderness (llQ) Extremity: Normal Capillary Refill, Normal Inspection, Normal Range of Motion, Non Tender, No Calf Tenderness, No Pedal Edema Neurologic/Psychiatric: Alert, Oriented x3, No Motor/Sensory Deficits, Normal Mood/Affect Skin: Normal Color, Warm/Dry Lymphatic: No Adenopathy Results Lab Laboratory Tests 12/09/16 08:30 12/10/16 07:03 Assessment/Plan Assessment/Plan Acute C DIff colitis Severe COPD oxygen dependent -SVNs, advair oxygen tobacco use -education 254 Clinical Quality Measures DVT/VTE Risk/Contraindication: Risk Factor Score Per Nursin RFS Level Per Nursing on Admit: 4+=Very High MERCEDES GARNICA DO Dec 10, 2016 08:33
[2016-12-10] MEDS ORDERED: NON-FORMULARY MEDICATION 1 EA EA (Duloxetine HCl 60 MG) PO SCH (09:00)
[2016-12-10] MEDS ORDERED: NON-FORMULARY MEDICATION 1 EA EA (Cholecalciferol (Vitamin D3) (Vitamin D3) 1,000 UNIT) PO SCH (09:00)
[2016-12-10] MEDS ORDERED: FLUOXETINE HCL 80 MG PO SCH (09:00)
[2016-12-10] MEDS ORDERED: NON-FORMULARY MEDICATION 1 EA EA (Sitagliptin Phosphate (Januvia) 100 MG) PO SCH (09:00)
[2016-12-10] MEDS ORDERED: VITAMIN B COMPLEX PO SCH (09:00)
[2016-12-10] MEDS ORDERED: CALCIUM CARBONATE 1000 MG PO SCH (09:00)
[2016-12-10] MEDS: DULoxetine 30 MG (CYMBALTA) CAP PO SCH (09:07)
[2016-12-10] MEDS: CARVEDILOL 12.5 MG (COREG) TABLET PO SCH (09:08)
[2016-12-10] MEDS: sitaGLIPtin 50 MG (NON-FORMULARY) TAB PO SCH (09:08)
[2016-12-10] MEDS: VITAMIN D3 1,000 UNITS (CHOLECALCIFEROL) TABLET PO SCH (09:08)
[2016-12-10] MEDS: lisINopril 20 MG (ZESTRIL) TAB PO SCH (09:08)
[2016-12-10] MEDS: FLUoxetine HCL 20 MG (PROzac) CAP PO SCH (09:08)
[2016-12-10] MEDS: CALCIUM CARBONATE 500 MG (TUMS) TAB.CHEW PO SCH (09:08)
[2016-12-10] MEDS: amLODIPine 10 MG (NORVASC) TAB PO SCH (09:08)
[2016-12-10] MEDS: MAGNESIUM OXIDE (MAG-OX)400 MG TAB PO SCH (09:08)
[2016-12-10] MEDS: OMEGA 3 (FISH OIL) 1000 MG CAP PO SCH (09:08)
[2016-12-10] MEDS: ONDANSETRON 4 MG/2 ML (SDV) Z0FRAN IV PRN (09:09)
[2016-12-10] MEDS: oxyCODONE ER 15 MG (oxyCONTIN CR) TAB PO SCH ×2 (09:18→21:08)
--- NOTE | 2016-12-10 10:46 | Progress Note-Hospitalist ---
Progress Note HPI/CC on Admission CC: Fever, weakness with acute C diff colitis with recent abx exposure for acute diverticulitis HPI: This is a 61yoWF clinic patient of Dr Francois in [facility] that presented to the ER w/3 week h/o fever and abdominal pain with diarrhea. She as seen in ER 2 weeks ago placed on abx for diverticulitis and then began to worsen the last several days with frequent diarrhea and was dx with c diff colitis. She has chronic colon issues and her last Colonoscopy was 2012. She sees Dr Aguirre for nephrology for Stage II kidney failure and needs to see Dr Kaur for chronic hypoxia and COPD with BRAYAN. Currently she just had a diarrheal stool and needs her pain medicine that she takes at home chronically of Percocet 10/325. She wears home O2 all the time at home and uses it in her CPAP at night and with her naps. She lives alone with her dog. Progress Notes/Assess & Plan Date Seen 12/10/16 Time Seen by Provider: 10:00 Admission Dx/Process Assessment: Acute C diff colitis due to abx exposure for acute diverticulitis 2 weeks ago now w/sepsis and leukocytosis Smoker Severe COPD on continuous O2 BRAYAN uses O2 in CPAP Chronic pain Diagonsis/Assessment & Plan Chart Review: No fever, max 99.2 Vitals stable WBC down to 13.4 CMP normal except glucose 144 Urine cx multiple organisms, less than 10,000, so will not treat Appreciate Dr. Olvera consultation Patient Interview: Pt states she is feeling a bit better Probiotic and Questran discussed for firming stools. Pt confirmed having more substance to her stools recently. DC discussed for the end of the week or the beginning of next week Physical exam stable. Lungs sound wheezy Pt feels that if she has to be here over the weekend she may be able to quit smoking Pt states she has been able to ambulate to the toilet AFVSS, pleasant, O x 3 RRR, CTAB except crackles lower lobes No edema Laboratory Tests 12/10/16 07:03 Assessment: Acute C diff colitis due to abx exposure for acute diverticulitis 2 weeks ago now w/sepsis and leukocytosis Smoker Severe COPD on continuous O2 w/crackles on exam today ordering Nebs BRAYAN uses O2 in CPAP Chronic pain Plan: IVF PO Vanco Questran, Imodium Dr Olvera consultation Reconcile home meds Dr Kaur consultation for severe COPD Breathing treatments Ambulate Probiotic Scribed by Pili Ortez under the direct supervision of Dr. Licea. ALEIDA LICEA DO Dec 10, 2016 10:46
[2016-12-10] MEDS: RT-ALBUTEROL/IPRATROPIUM 3 ML (DUONEB) VIAL INH SCH ×3 (11:43→22:04)
[2016-12-10 12:00] VITALS: BP 132/78
[2016-12-10] MEDS: metroNIDAZOLE 500 MG (FLAGYL) TAB PO SCH ×2 (13:58→21:07)
[2016-12-10 16:00] VITALS: BP 134/81
--- NOTE | 2016-12-10 17:42 | Progress Note (SOAP) ---
Subjective Date Seen by Provider: Dec 10, 2016 Time Seen by Provider: 17:40 Subjective/Events-last exam doing ok. still having diarrhea howver slightly improving. tolerating diet. no fever/chills. improved abdominal pain. Objective Exam Vital Signs Date Time Temp Pulse Resp B/P (MAP) Pulse Ox O2 Delivery O2 Flow Rate FiO2 12/10/16 16:00 97.5 79 19 134/81 92 Room Air 12/10/16 15:52 92 Room Air 12/10/16 12:00 98.6 82 20 132/78 90 Room Air 12/10/16 11:43 Nasal Cannula 2.00 12/10/16 08:24 93 12/10/16 08:00 99.2 81 20 137/84 93 Room Air 12/10/16 07:45 Room Air 12/10/16 03:25 99.0 81 18 149/88 96 Room Air 12/10/16 01:00 82 12/09/16 23:35 99.1 84 18 156/90 95 Room Air 12/09/16 20:40 2.00 12/09/16 20:35 98.9 86 20 137/84 92 Room Air 12/09/16 20:15 95 Room Air 12/09/16 19:00 90 I & O 12/11/16 07:00 Intake Total 1540 ml Balance 1540 ml Capillary Refill : Less Than 3 Seconds General Appearance: No Apparent Distress HEENT: PERRL/EOMI Neck: Full Range of Motion Respiratory: Chest Non Tender, Normal Breath Sounds Cardiovascular: Regular Rate, Rhythm Gastrointestinal: normal bowel sounds, soft Extremity: Normal Capillary Refill Neurologic/Psychiatric: Alert, Oriented x3 Skin: Normal Color Lymphatic: No Adenopathy Results Lab Laboratory Tests 12/09/16 20:31: Glucometer 117H 12/10/16 05:05: Glucometer 141H 12/10/16 07:03: White Blood Count 13.4H, Red Blood Count 4.42, Hemoglobin 12.5, Hematocrit 39, Mean Corpuscular Volume 89, Mean Corpuscular Hemoglobin 28, Mean Corpuscular Hemoglobin Concent 32, Red Cell Distribution Width 14.3, Platelet Count 186, Mean Platelet Volume 10.4, Neutrophils (%) (Auto) 73, Lymphocytes (%) (Auto) 18 , Monocytes (%) (Auto) 8, Eosinophils (%) (Auto) 2, Basophils (%) (Auto) 0, Neutrophils # (Auto) 9.8H, Lymphocytes # (Auto) 2.4, Monocytes # (Auto) 1.0, Eosinophils # (Auto) 0.2, Basophils # (Auto) 0.0, Sodium Level 139, Potassium Level 3.6, Chloride Level 109H, Carbon Dioxide Level 22, Anion Gap 8, Blood Urea Nitrogen 15, Creatinine 0.80, Estimat Glomerular Filtration Rate > 60, BUN/ Creatinine Ratio 19, Glucose Level 144H, Calcium Level 8.0L 12/10/16 10:55: Glucometer 145H 12/10/16 16:10: Glucometer 127H Microbiology 12/09/16 Blood Culture - Preliminary, Resulted No growth 12/09/16 Cryptosporidium/Giardia - Final, Complete 12/09/16 Urine Culture - Preliminary, Resulted Group B Streptococci Enterococcus Species Proteus Species Gram Negative [place] See Comments Assessment/Plan Assessment/Plan Assess & Plan/Chief Complaint c. diff colitis. continue conservative care and abx. await sensitivities. Clinical Quality Measures DVT/VTE Risk/Contraindication: Risk Factor Score Per Nursin RFS Level Per Nursing on Admit: 4+=Very High WENDI ELIZABETH MD Dec 10, 2016 5:42 pm
[2016-12-10 20:00] VITALS: BP 131/83
[2016-12-10] MEDS ORDERED: RT-ADVAIR HFA 115/21 MCG PER PUFF IH SCH (20:00)
[2016-12-10 23:30] VITALS: BP 119/57
[2016-12-11] MEDS: VANCOMYCIN ORAL 250 MG/5 ML 60 ML PO SCH ×8 (00:39→18:53)
[2016-12-11] MEDS: NS IV 1000 ML 1,000 ML IV SCH ×2 (02:23→10:07)
[2016-12-11] MEDS: oxyCODONE/APAP 10/325MG (PERCOCET 10) TABLET PO PRN ×3 (02:23→15:53)
[2016-12-11 03:20] VITALS: BP 124/60
[2016-12-11] MEDS: MULTIVIT W/MINERALS TAB (THERAGRAN M) PO SCH (06:35)
[2016-12-11] MEDS: LACTOBACILLUS Acidoph/Bulgar (LACTINEX/FLORANEX) TAB PO SCH ×3 (06:35→15:53)
[2016-12-11] MEDS: RT-ALBUTEROL/IPRATROPIUM 3 ML (DUONEB) VIAL INH SCH ×4 (07:13→18:55)
[2016-12-11 08:00] VITALS: BP 128/78
--- NOTE | 2016-12-11 08:09 | Pulmonary Progress Note ---
Subjective Time Seen by Provider: 08:08 Subjective/Events-last exam NO complications noted. SOB is baseline. Exam Exam Vital Signs Date Time Temp Pulse Resp B/P (MAP) Pulse Ox O2 Delivery O2 Flow Rate FiO2 12/11/16 07:13 91 Nasal Cannula 2.00 12/11/16 03:20 98.8 93 18 124/60 92 Room Air 12/10/16 23:30 99.1 79 18 119/57 94 Room Air 12/10/16 22:05 97 Room Air 12/10/16 21:00 Room Air 12/10/16 20:00 98.5 81 20 131/83 91 Room Air 12/10/16 16:00 97.5 79 19 134/81 92 Room Air 12/10/16 15:52 92 Room Air 12/10/16 12:00 98.6 82 20 132/78 90 Room Air 12/10/16 11:43 Nasal Cannula 2.00 12/10/16 08:24 93 General Appearance: No Apparent Distress, WD/WN, Chronically ill, Obese HEENT: PERRL/EOMI, Normal ENT Inspection, Pharynx Normal Neck: Full Range of Motion, Normal Inspection, Non Tender, Supple, Carotid Bruit Respiratory: Chest Non Tender, Normal Breath Sounds, No Accessory Muscle Use, No Respiratory Distress, Crackles, Decreased Breath Sounds Cardiovascular: Regular Rate, Rhythm, No Edema, No Gallop, No JVD, No Murmur, Normal Peripheral Pulses Capillary Refill: Less Than 3 Seconds Peripheral Pulses: 2+ Radial Pulses (R), 2+ Radial Pulses (L) Gastrointestinal: normal bowel sounds, soft, no organomegaly, tenderness (llQ) Extremity: Normal Capillary Refill, Normal Inspection, Normal Range of Motion, Non Tender, No Calf Tenderness, No Pedal Edema Neurologic/Psychiatric: Alert, Oriented x3, No Motor/Sensory Deficits, Normal Mood/Affect Skin: Normal Color, Warm/Dry Lymphatic: No Adenopathy Results Lab Laboratory Tests 12/09/16 08:30 12/10/16 07:03 Assessment/Plan Assessment/Plan Acute C DIff colitis Severe COPD oxygen dependent -SVNs, advair oxygen tobacco use -education Diverticulitis 2 wks ago BRAYAN -Get home CPAP if possible. 232 Clinical Quality Measures DVT/VTE Risk/Contraindication: Risk Factor Score Per Nursin RFS Level Per Nursing on Admit: 4+=Very High MERCEDES GARNICA DO Dec 11, 2016 08:08
[2016-12-11] MEDS: CALCIUM CARBONATE 500 MG (TUMS) TAB.CHEW PO SCH (09:30)
[2016-12-11] MEDS: DULoxetine 30 MG (CYMBALTA) CAP PO SCH (09:30)
[2016-12-11] MEDS: lisINopril 20 MG (ZESTRIL) TAB PO SCH (09:30)
[2016-12-11] MEDS: CHOLESTYRAMINE 4 GM (QUESTRAN LITE, PREVALITE) PKT PO SCH ×2 (09:30→20:30)
[2016-12-11] MEDS: FLUoxetine HCL 20 MG (PROzac) CAP PO SCH (09:31)
[2016-12-11] MEDS: oxyCODONE ER 15 MG (oxyCONTIN CR) TAB PO SCH ×2 (09:31→20:30)
[2016-12-11] MEDS: VITAMIN D3 1,000 UNITS (CHOLECALCIFEROL) TABLET PO SCH (09:32)
[2016-12-11] MEDS: OMEGA 3 (FISH OIL) 1000 MG CAP PO SCH (09:32)
[2016-12-11] MEDS: metroNIDAZOLE 500 MG (FLAGYL) TAB PO SCH ×3 (09:32→20:29)
[2016-12-11] MEDS: sitaGLIPtin 50 MG (NON-FORMULARY) TAB PO SCH (09:32)
[2016-12-11] MEDS: amLODIPine 10 MG (NORVASC) TAB PO SCH (09:32)
[2016-12-11] MEDS: CARVEDILOL 12.5 MG (COREG) TABLET PO SCH (09:32)
[2016-12-11] MEDS: MAGNESIUM OXIDE (MAG-OX)400 MG TAB PO SCH (09:32)
[2016-12-11] MEDS: ADVAIR HFA 115/21 MCG INHALER 8 GM IH SCH ×2 (10:10→18:55)
--- NOTE | 2016-12-11 11:24 | Progress Note-Hospitalist ---
Progress Note HPI/CC on Admission CC: Fever, weakness with acute C diff colitis with recent abx exposure for acute diverticulitis HPI: This is a 61yoWF clinic patient of Dr Francois in [facility] that presented to the ER w/3 week h/o fever and abdominal pain with diarrhea. She as seen in ER 2 weeks ago placed on abx for diverticulitis and then began to worsen the last several days with frequent diarrhea and was dx with c diff colitis. She has chronic colon issues and her last Colonoscopy was 2012. She sees Dr Aguirre for nephrology for Stage II kidney failure and needs to see Dr Kaur for chronic hypoxia and COPD with BRAYAN. Currently she just had a diarrheal stool and needs her pain medicine that she takes at home chronically of Percocet 10/325. She wears home O2 all the time at home and uses it in her CPAP at night and with her naps. She lives alone with her dog. Progress Notes/Assess & Plan Date Seen 12/11/16 Time Seen by Provider: 10:00 Admission Dx/Process Assessment: Acute C diff colitis due to abx exposure for acute diverticulitis 2 weeks ago now w/sepsis and leukocytosis Smoker Severe COPD on continuous O2 BRAYAN uses O2 in CPAP Chronic pain Diagonsis/Assessment & Plan Patient doing much better but loose stools continue then firm up at varied times Scared to go home until this is resolved since she lives alone in the [facility] which is very isolated she reports Urine culture will not need to be treated since less than 10,030 specimen Smoking cessation counseling Using nebulizer treatments and she is coughing sputum up which is clear and her lungs are clear today Using IS Denies any pain except shoulder pain AFVSS, pleasant, O x 3 RRR, CTAB resolved crackles No edema Assessment: Acute C diff colitis due to abx exposure for acute diverticulitis 2 weeks ago now w/sepsis and leukocytosis Smoker Severe COPD on continuous O2 w/crackles on exam today ordering Nebs BRAYAN uses O2 in CPAP Chronic pain Plan: IVF PO Vanco Questran, Imodium Dr Olvera consultation appreciated Dr Kaur consultation for severe COPD is appreciated Breathing treatments Ambulate Probiotic Check labs in am ALEIDA LICEA DO Dec 11, 2016 11:24
[2016-12-11 12:00] VITALS: BP 119/74
--- NOTE | 2016-12-11 15:00 | Progress Note (SOAP) ---
Subjective Date Seen by Provider: Dec 11, 2016 Time Seen by Provider: 14:30 Subjective/Events-last exam doing ok, abdominal pain slowly improving as is solidification and decreased frequency of stool. no fever/chills. eder reg diet. Objective Exam Vital Signs Date Time Temp Pulse Resp B/P (MAP) Pulse Ox O2 Delivery O2 Flow Rate FiO2 12/11/16 12:00 98.4 78 18 119/74 98 Room Air 12/11/16 11:22 90 Nasal Cannula 2.00 12/11/16 10:11 92 NIV CPAP 2 12/11/16 08:00 98.0 81 20 128/78 95 Room Air 12/11/16 07:13 91 Nasal Cannula 2.00 12/11/16 03:20 98.8 93 18 124/60 92 Room Air 12/10/16 23:30 99.1 79 18 119/57 94 Room Air 12/10/16 22:05 97 Room Air 12/10/16 21:00 Room Air 12/10/16 20:00 98.5 81 20 131/83 91 Room Air 12/10/16 16:00 97.5 79 19 134/81 92 Room Air 12/10/16 15:52 92 Room Air I & O 12/12/16 07:00 Intake Total 1000 ml Balance 1000 ml Capillary Refill : Less Than 3 Seconds General Appearance: No Apparent Distress HEENT: PERRL/EOMI Neck: Full Range of Motion Respiratory: Chest Non Tender, Lungs Clear Cardiovascular: Regular Rate, Rhythm Gastrointestinal: normal bowel sounds, soft, tenderness Extremity: Normal Capillary Refill Neurologic/Psychiatric: Alert, Oriented x3 Skin: Normal Color Lymphatic: No Adenopathy Results Lab Laboratory Tests 12/10/16 16:10: Glucometer 127H 12/10/16 20:54: Glucometer 144H 12/11/16 05:32: Glucometer 119H Microbiology 12/09/16 Blood Culture - Preliminary, Resulted No growth 12/09/16 Cryptosporidium/Giardia - Final, Complete 12/09/16 Urine Culture - Final, Complete Group B Streptococci Enterococcus Species Proteus Species Gram Negative Hadley See Comments Assessment/Plan Assessment/Plan Assess & Plan/Chief Complaint c. diff colitis. improving with flagyl. switch to PO flagyl TID. ok for home when ok with PMD. f/u in office in 6 weeks to schedule OP colonoscopy. Clinical Quality Measures DVT/VTE Risk/Contraindication: Risk Factor Score Per Nursin RFS Level Per Nursing on Admit: 4+=Very High WENDI ELIZABETH MD Dec 11, 2016 3:00 pm
[2016-12-11 16:26] VITALS: BP 131/75
[2016-12-11 20:38] VITALS: BP 128/60
[2016-12-12 00:21] VITALS: BP 156/69
[2016-12-12 03:16] VITALS: BP 113/70
[2016-12-12] MEDS: VANCOMYCIN ORAL 250 MG/5 ML 60 ML PO SCH ×10 (05:17→23:31)
[2016-12-12] MEDS: LACTOBACILLUS Acidoph/Bulgar (LACTINEX/FLORANEX) TAB PO SCH ×3 (05:17→17:57)
[2016-12-12 05:45] LABS: BASOPHILS % (AUTO) 0 % (0-10); EOSINOPHILS # (AUTO) 0.2 10^3/uL (0.0-0.3); EOSINOPHILS % (AUTO) 1 % (0-10); LYMPHOCYTES # (AUTO) 2.1 X 10^3 (1.0-4.0); LYMPHOCYTES % (AUTO) 18 % (12-44); MEAN CORPUSCULAR HEMOGLOBIN 29 PG (25-34); MEAN CORPUSCULAR HGB CONC 32 G/DL (32-36); MEAN CORPUSCULAR VOLUME 89 FL (80-99); MEAN PLATELET VOLUME 10.4 FL (7.4-10.4); MONOCYTES % (AUTO) 9 % (0-12); NEUTROPHILS # (AUTO) 8.4 X 10^3 (1.8-7.8); NEUTROPHILS % (AUTO) 72 % (42-75); PLATELET COUNT 190 10^3/uL (130-400); RED BLOOD COUNT 4.07 10^6/uL (4.35-5.85); RED CELL DISTRIBUTION WIDTH 14.3 % (10.0-14.5); WHITE BLOOD COUNT 11.7 10^3/uL (4.3-11.0)
[2016-12-12 06:18] LABS: ALANINE AMINOTRANSFERASE 11 U/L (0-55); ALBUMIN 3.1 GM/DL (3.2-4.5); ANION GAP 8 MMOL/L (5-14); ASPARTATE AMINO TRANSFERASE 14 U/L (5-34); BILIRUBIN,TOTAL 0.3 MG/DL (0.1-1.0); BLOOD UREA NITROGEN 12 MG/DL (7-18); BUN/CREATININE RATIO 14; CALCIUM 8.6 MG/DL (8.5-10.1); CARBON DIOXIDE 23 MMOL/L (21-32); CHLORIDE 109 MMOL/L (98-107); CREATININE SERUM 0.86 MG/DL (0.60-1.30); GFR ESTIMATED > 60; GLUCOSE 118 MG/DL (70-105); POTASSIUM 3.7 MMOL/L (3.6-5.0); SODIUM 140 MMOL/L (135-145); TOTAL PROTEIN 5.3 GM/DL (6.4-8.2)
[2016-12-12] MEDS: oxyCODONE/APAP 10/325MG (PERCOCET 10) TABLET PO PRN ×6 (06:20→23:32)
[2016-12-12] MEDS: MULTIVIT W/MINERALS TAB (THERAGRAN M) PO SCH (06:20)
[2016-12-12] MEDS: RT-ALBUTEROL/IPRATROPIUM 3 ML (DUONEB) VIAL INH SCH ×4 (07:11→19:14)
[2016-12-12] MEDS: ADVAIR HFA 115/21 MCG INHALER 8 GM IH SCH ×2 (07:11→19:14)
[2016-12-12 08:00] VITALS: BP 127/78
[2016-12-12] MEDS: DULoxetine 30 MG (CYMBALTA) CAP PO SCH (09:30)
[2016-12-12] MEDS: CALCIUM CARBONATE 500 MG (TUMS) TAB.CHEW PO SCH (09:30)
[2016-12-12] MEDS: VITAMIN D3 1,000 UNITS (CHOLECALCIFEROL) TABLET PO SCH (09:31)
[2016-12-12] MEDS: oxyCODONE ER 15 MG (oxyCONTIN CR) TAB PO SCH ×2 (09:31→21:19)
[2016-12-12] MEDS: sitaGLIPtin 50 MG (NON-FORMULARY) TAB PO SCH (09:31)
[2016-12-12] MEDS: metroNIDAZOLE 500 MG (FLAGYL) TAB PO SCH ×3 (09:31→21:09)
[2016-12-12] MEDS: amLODIPine 10 MG (NORVASC) TAB PO SCH (09:31)
[2016-12-12] MEDS: MAGNESIUM OXIDE (MAG-OX)400 MG TAB PO SCH (09:31)
[2016-12-12] MEDS: CHOLESTYRAMINE 4 GM (QUESTRAN LITE, PREVALITE) PKT PO SCH ×2 (09:31→21:11)
[2016-12-12] MEDS: FLUoxetine HCL 20 MG (PROzac) CAP PO SCH (09:31)
[2016-12-12] MEDS: OMEGA 3 (FISH OIL) 1000 MG CAP PO SCH (09:31)
[2016-12-12] MEDS: CARVEDILOL 12.5 MG (COREG) TABLET PO SCH (09:31)
[2016-12-12] MEDS: lisINopril 20 MG (ZESTRIL) TAB PO SCH (09:31)
--- NOTE | 2016-12-12 11:44 | Progress Note-Hospitalist ---
Progress Note HPI/CC on Admission CC: Fever, weakness with acute C diff colitis with recent abx exposure for acute diverticulitis HPI: This is a 61yoWF clinic patient of Dr Francois in [facility] that presented to the ER w/3 week h/o fever and abdominal pain with diarrhea. She as seen in ER 2 weeks ago placed on abx for diverticulitis and then began to worsen the last several days with frequent diarrhea and was dx with c diff colitis. She has chronic colon issues and her last Colonoscopy was 2012. She sees Dr Aguirre for nephrology for Stage II kidney failure and needs to see Dr Kaur for chronic hypoxia and COPD with BRAYAN. Currently she just had a diarrheal stool and needs her pain medicine that she takes at home chronically of Percocet 10/325. She wears home O2 all the time at home and uses it in her CPAP at night and with her naps. She lives alone with her dog. Progress Notes/Assess & Plan Date Seen 12/12/16 Time Seen by Provider: 10:15 Admission Dx/Process Assessment: Acute C diff colitis due to abx exposure for acute diverticulitis 2 weeks ago now w/sepsis and leukocytosis Smoker Severe COPD on continuous O2 BRAYAN uses O2 in CPAP Chronic pain Diagonsis/Assessment & Plan Patient doing better but loose stools continue then firm up at varied times Smoking cessation counseling Using nebulizer treatments and she is coughing sputum up which is clear and her lungs are clear today Using IS Denies any pain except chronic shoulder pain AFVSS, pleasant, O x 3 RRR, CTAB No edema Laboratory Tests 12/12/16 05:15 Assessment: Acute C diff colitis due to abx exposure for acute diverticulitis 2 weeks ago now w/sepsis and leukocytosis now improved Smoker Severe COPD on continuous O2 BRAYAN uses O2 in CPAP Chronic pain Plan: DC IVF yesterday and she has adequate PO intake PO Vanco Questran, Imodium Dr Olvera consultation appreciated Dr Kaur consultation for severe COPD is appreciated Breathing treatments to continue Ambulate Probiotic ALEIDA LICEA DO Dec 12, 2016 11:43
[2016-12-12 16:33] VITALS: BP 134/67
[2016-12-13 00:15] VITALS: BP_SYST 115; BP_SYST 137; BP_DIAS 62; BP_DIAS 76
[2016-12-13] MEDS: LACTOBACILLUS Acidoph/Bulgar (LACTINEX/FLORANEX) TAB PO SCH ×3 (06:12→17:09)
[2016-12-13] MEDS: VANCOMYCIN ORAL 250 MG/5 ML 60 ML PO SCH ×6 (06:12→18:01)
[2016-12-13] MEDS: MULTIVIT W/MINERALS TAB (THERAGRAN M) PO SCH (06:12)
[2016-12-13] MEDS: RT-ALBUTEROL/IPRATROPIUM 3 ML (DUONEB) VIAL INH SCH ×4 (07:18→19:22)
[2016-12-13] MEDS: ADVAIR HFA 115/21 MCG INHALER 8 GM IH SCH ×2 (07:19→19:22)
[2016-12-13 08:00] VITALS: BP 153/72
[2016-12-13] MEDS: FLUoxetine HCL 20 MG (PROzac) CAP PO SCH (08:04)
[2016-12-13] MEDS: oxyCODONE/APAP 10/325MG (PERCOCET 10) TABLET PO PRN ×3 (08:04→20:51)
[2016-12-13] MEDS: oxyCODONE ER 15 MG (oxyCONTIN CR) TAB PO SCH ×2 (08:04→20:51)
[2016-12-13] MEDS: OMEGA 3 (FISH OIL) 1000 MG CAP PO SCH (08:05)
[2016-12-13] MEDS: CALCIUM CARBONATE 500 MG (TUMS) TAB.CHEW PO SCH (08:05)
[2016-12-13] MEDS: lisINopril 20 MG (ZESTRIL) TAB PO SCH (08:06)
[2016-12-13] MEDS: amLODIPine 10 MG (NORVASC) TAB PO SCH (08:06)
[2016-12-13] MEDS: CHOLESTYRAMINE 4 GM (QUESTRAN LITE, PREVALITE) PKT PO SCH ×2 (08:06→20:49)
[2016-12-13] MEDS: MAGNESIUM OXIDE (MAG-OX)400 MG TAB PO SCH (08:06)
[2016-12-13] MEDS: DULoxetine 30 MG (CYMBALTA) CAP PO SCH (08:06)
[2016-12-13] MEDS: metroNIDAZOLE 500 MG (FLAGYL) TAB PO SCH ×3 (08:06→20:49)
[2016-12-13] MEDS: VITAMIN D3 1,000 UNITS (CHOLECALCIFEROL) TABLET PO SCH (08:06)
[2016-12-13] MEDS: CARVEDILOL 12.5 MG (COREG) TABLET PO SCH (08:06)
[2016-12-13] MEDS: sitaGLIPtin 50 MG (NON-FORMULARY) TAB PO SCH (08:06)
--- NOTE | 2016-12-13 12:20 | Progress Note-Hospitalist ---
Progress Note HPI/CC on Admission CC: Fever, weakness with acute C diff colitis with recent abx exposure for acute diverticulitis HPI: This is a 61yoWF clinic patient of Dr Francois in [facility] that presented to the ER w/3 week h/o fever and abdominal pain with diarrhea. She as seen in ER 2 weeks ago placed on abx for diverticulitis and then began to worsen the last several days with frequent diarrhea and was dx with c diff colitis. She has chronic colon issues and her last Colonoscopy was 2012. She sees Dr Aguirre for nephrology for Stage II kidney failure and needs to see Dr Kaur for chronic hypoxia and COPD with BRAYAN. Currently she just had a diarrheal stool and needs her pain medicine that she takes at home chronically of Percocet 10/325. She wears home O2 all the time at home and uses it in her CPAP at night and with her naps. She lives alone with her dog. Progress Notes/Assess & Plan Date Seen 12/13/16 Time Seen by Provider: 10:30 Admission Dx/Process Assessment: Acute C diff colitis due to abx exposure for acute diverticulitis 2 weeks ago now w/sepsis and leukocytosis Smoker Severe COPD on continuous O2 BRAYAN uses O2 in CPAP Chronic pain Diagonsis/Assessment & Plan Patient doing better but loose stools continue then firm up at varied times Smoking cessation counseling Using nebulizer treatments tolerated Using IS Denies any pain except chronic shoulder pain AFVSS, pleasant, O x 3 on toilet Assessment: Acute C diff colitis due to abx exposure for acute diverticulitis 2 weeks ago now w/sepsis and leukocytosis now improved but still with loose stools and multiple stools Smoker Severe COPD on continuous O2 BRAYAN uses O2 in CPAP Chronic pain Plan: PO Vanco Raadran, Imodium Breathing treatments to continue Ambulate Probiotic ALEIDA LICEA DO Dec 13, 2016 12:20
[2016-12-13 16:22] VITALS: BP_SYST 119; BP_SYST 153; BP_DIAS 59; BP_DIAS 79
[2016-12-13] MEDS ORDERED: CALCIUM CARBONATE 500 MG (TUMS) TAB.CHEW PO ONE (21:00)
[2016-12-14] MEDS: VANCOMYCIN ORAL 250 MG/5 ML 60 ML PO SCH ×8 (00:16→18:05)
[2016-12-14 00:32] VITALS: BP 123/70
[2016-12-14] MEDS: LACTOBACILLUS Acidoph/Bulgar (LACTINEX/FLORANEX) TAB PO SCH ×3 (05:18→18:05)
[2016-12-14] MEDS: MULTIVIT W/MINERALS TAB (THERAGRAN M) PO SCH (05:18)
[2016-12-14] MEDS: RT-ALBUTEROL/IPRATROPIUM 3 ML (DUONEB) VIAL INH SCH ×4 (07:17→18:57)
[2016-12-14] MEDS: ADVAIR HFA 115/21 MCG INHALER 8 GM IH SCH ×2 (07:19→18:57)
[2016-12-14 07:21] VITALS: BP 129/70
[2016-12-14] MEDS: MAGNESIUM OXIDE (MAG-OX)400 MG TAB PO SCH (08:32)
[2016-12-14] MEDS: VITAMIN D3 1,000 UNITS (CHOLECALCIFEROL) TABLET PO SCH (08:32)
[2016-12-14] MEDS: amLODIPine 10 MG (NORVASC) TAB PO SCH (08:32)
[2016-12-14] MEDS: CARVEDILOL 12.5 MG (COREG) TABLET PO SCH (08:33)
[2016-12-14] MEDS: lisINopril 20 MG (ZESTRIL) TAB PO SCH (08:33)
[2016-12-14] MEDS: sitaGLIPtin 50 MG (NON-FORMULARY) TAB PO SCH (08:33)
[2016-12-14] MEDS: oxyCODONE ER 15 MG (oxyCONTIN CR) TAB PO SCH ×2 (08:33→21:54)
[2016-12-14] MEDS: CHOLESTYRAMINE 4 GM (QUESTRAN LITE, PREVALITE) PKT PO SCH ×2 (08:33→21:54)
[2016-12-14] MEDS: metroNIDAZOLE 500 MG (FLAGYL) TAB PO SCH ×3 (08:33→20:43)
[2016-12-14] MEDS: DULoxetine 30 MG (CYMBALTA) CAP PO SCH (08:33)
[2016-12-14] MEDS: oxyCODONE/APAP 10/325MG (PERCOCET 10) TABLET PO PRN ×3 (08:33→20:44)
[2016-12-14] MEDS: FLUoxetine HCL 20 MG (PROzac) CAP PO SCH (08:33)
[2016-12-14] MEDS: CALCIUM CARBONATE 500 MG (TUMS) TAB.CHEW PO SCH (08:33)
[2016-12-14] MEDS: OMEGA 3 (FISH OIL) 1000 MG CAP PO SCH (08:33)
--- NOTE | 2016-12-14 12:19 | Progress Note-Hospitalist ---
Standard Progress Note Progress Notes/Assess & Plan Date Seen 12/14/16 Time Seen by Provider: 12:14 Diagnosis Assessment: Acute C diff colitis due to abx exposure for acute diverticulitis 2 weeks ago now w/sepsis and leukocytosis Smoker Severe COPD on continuous O2 BRAYAN uses O2 in CPAP Chronic pain Assess & Plan/Chief Complaint The patient is a pleasant 61-year-old white female from [place]. She was referred here by their ER staff after finding her to have a significant diarrheal illness which was C. difficile positive. She had been taking oral antibiotics as outpatient treatment for diverticulitis. This began about 2 weeks prior to this presentation. She reported significant colicky pain and many liquid stools per day. She also admits as an aside that she has a predilection for loose stools anyway. She has previously had an operative removal of about 15 inches of bowel. PE: She is sitting up in the chair and appears quite comfortable. She reports less in the way of cramping and diarrhea today. She reports that eating seems to trigger some bowel activity. This is not unusual even when well. She has had one stool at the time of exam. Lungs are clear to auscultation. CV is regular without murmur. Abdomen is soft and nontender to palpation. Bowel sounds are hypoactive. Impression: Clostridium difficile diarrhea, apparent improvement at this time. Plan: Continue present medications and IV fluids. CHIDI RODRÍGUEZ MD Dec 14, 2016 12:19
[2016-12-14 16:05] VITALS: BP 130/82
[2016-12-15] VITALS: BP 112/57
[2016-12-15] MEDS: VANCOMYCIN ORAL 250 MG/5 ML 60 ML PO SCH ×8 (00:04→17:17)
[2016-12-15] MEDS: LACTOBACILLUS Acidoph/Bulgar (LACTINEX/FLORANEX) TAB PO SCH ×3 (05:11→17:17)
[2016-12-15] MEDS: MULTIVIT W/MINERALS TAB (THERAGRAN M) PO SCH (05:11)
[2016-12-15] MEDS: ADVAIR HFA 115/21 MCG INHALER 8 GM IH SCH ×2 (06:50→19:29)
[2016-12-15] MEDS: RT-ALBUTEROL/IPRATROPIUM 3 ML (DUONEB) VIAL INH SCH ×4 (06:50→19:29)
[2016-12-15 08:00] VITALS: BP 126/74
[2016-12-15] MEDS: CHOLESTYRAMINE 4 GM (QUESTRAN LITE, PREVALITE) PKT PO SCH ×2 (09:48→22:18)
[2016-12-15] MEDS: oxyCODONE ER 15 MG (oxyCONTIN CR) TAB PO SCH ×2 (09:48→21:18)
[2016-12-15] MEDS: CARVEDILOL 12.5 MG (COREG) TABLET PO SCH (09:49)
[2016-12-15] MEDS: DULoxetine 30 MG (CYMBALTA) CAP PO SCH (09:49)
[2016-12-15] MEDS: OMEGA 3 (FISH OIL) 1000 MG CAP PO SCH (09:49)
[2016-12-15] MEDS: MAGNESIUM OXIDE (MAG-OX)400 MG TAB PO SCH (09:49)
[2016-12-15] MEDS: lisINopril 20 MG (ZESTRIL) TAB PO SCH (09:49)
[2016-12-15] MEDS: VITAMIN D3 1,000 UNITS (CHOLECALCIFEROL) TABLET PO SCH (09:49)
[2016-12-15] MEDS: metroNIDAZOLE 500 MG (FLAGYL) TAB PO SCH ×3 (09:49→21:18)
[2016-12-15] MEDS: CALCIUM CARBONATE 500 MG (TUMS) TAB.CHEW PO SCH (09:49)
[2016-12-15] MEDS: sitaGLIPtin 50 MG (NON-FORMULARY) TAB PO SCH (09:49)
[2016-12-15] MEDS: FLUoxetine HCL 20 MG (PROzac) CAP PO SCH (09:50)
[2016-12-15] MEDS: amLODIPine 10 MG (NORVASC) TAB PO SCH (09:50)
--- NOTE | 2016-12-15 13:32 | Progress Note-Hospitalist ---
Standard Progress Note Progress Notes/Assess & Plan Date Seen 12/15/16 Time Seen by Provider: 13:30 Diagnosis Assessment: Acute C diff colitis due to abx exposure for acute diverticulitis 2 weeks ago now w/sepsis and leukocytosis Smoker Severe COPD on continuous O2 BRAYAN uses O2 in CPAP Chronic pain Assess & Plan/Chief Complaint The patient reports fewer stools, less rumbling, more form today. If this is to hold I would anticipate discharge tomorrow. Physical exam: She is sitting in chair at bedside and appears comfortable. Lungs are clear to auscultation. CV is regular. Bowel sounds seem normal and there is no tenderness to palpation. Impression: Previous history of diverticulitis on outpatient antibiotics. 2.active Clostridium difficile enteritis CHIDI RODRÍGUEZ MD Dec 15, 2016 13:32
[2016-12-15 16:15] VITALS: BP 131/71
[2016-12-15] MEDS: oxyCODONE/APAP 10/325MG (PERCOCET 10) TABLET PO PRN (22:26)
[2016-12-16] VITALS: BP 122/66
[2016-12-16] MEDS: VANCOMYCIN ORAL 250 MG/5 ML 60 ML PO SCH ×4 (01:03→06:43)
[2016-12-16] MEDS: MULTIVIT W/MINERALS TAB (THERAGRAN M) PO SCH (06:43)
[2016-12-16] MEDS: LACTOBACILLUS Acidoph/Bulgar (LACTINEX/FLORANEX) TAB PO SCH (06:43)
[2016-12-16 07:57] VITALS: BP 137/78
[2016-12-16] MEDS: RT-ALBUTEROL/IPRATROPIUM 3 ML (DUONEB) VIAL INH SCH ×2 (08:06→11:44)
[2016-12-16] MEDS: ADVAIR HFA 115/21 MCG INHALER 8 GM IH SCH (08:06)
[2016-12-16] MEDS: OMEGA 3 (FISH OIL) 1000 MG CAP PO SCH (08:22)
[2016-12-16] MEDS: CHOLESTYRAMINE 4 GM (QUESTRAN LITE, PREVALITE) PKT PO SCH (08:22)
[2016-12-16] MEDS: CALCIUM CARBONATE 500 MG (TUMS) TAB.CHEW PO SCH (08:22)
[2016-12-16] MEDS: DULoxetine 30 MG (CYMBALTA) CAP PO SCH (08:22)
[2016-12-16] MEDS: sitaGLIPtin 50 MG (NON-FORMULARY) TAB PO SCH (08:22)
[2016-12-16] MEDS: metroNIDAZOLE 500 MG (FLAGYL) TAB PO SCH (08:22)
[2016-12-16] MEDS: amLODIPine 10 MG (NORVASC) TAB PO SCH (08:23)
[2016-12-16] MEDS: lisINopril 20 MG (ZESTRIL) TAB PO SCH (08:23)
[2016-12-16] MEDS: MAGNESIUM OXIDE (MAG-OX)400 MG TAB PO SCH (08:23)
[2016-12-16] MEDS: VITAMIN D3 1,000 UNITS (CHOLECALCIFEROL) TABLET PO SCH (08:23)
[2016-12-16] MEDS: oxyCODONE/APAP 10/325MG (PERCOCET 10) TABLET PO PRN (08:23)
[2016-12-16] MEDS: CARVEDILOL 12.5 MG (COREG) TABLET PO SCH (08:23)
[2016-12-16] MEDS: FLUoxetine HCL 20 MG (PROzac) CAP PO SCH (08:23)
[2016-12-16] MEDS: oxyCODONE ER 15 MG (oxyCONTIN CR) TAB PO SCH (08:28)
[2016-12-16] MEDS ORDERED: ACID1TAB PO (10:20)
[2016-12-16] MEDS ORDERED: FLUT12AE4 IH (10:20)
[2016-12-16] MEDS ORDERED: CHOL4PAC3 PO (10:20)
[2016-12-16] MEDS ORDERED: METR500T21 PO (10:20)
--- NOTE | 2016-12-16 10:22 | Discharge Summary-Hospitalist ---
Diagnosis/Chief Complaint Date of Admission Dec 09, 2016 at 10:15 Date of Discharge Discharge Date: Dec 16, 2016 Admission Diagnosis Assessment: Acute C diff colitis due to abx exposure for acute diverticulitis 2 weeks ago now w/sepsis and leukocytosis Smoker Severe COPD on continuous O2 BRAYAN uses O2 in CPAP Chronic pain Discharge Diagnosis Assessment: Acute C diff colitis due to abx exposure for acute diverticulitis 2 weeks ago now w/sepsis and leukocytosis now improved but still with loose stools and multiple stools receiving Flagyl and Vanc PO with Lactinex and Questran at DC Smoker Severe COPD on continuous O2 BRAYAN uses O2 in CPAP Chronic pain Discharge Summary Discharge Physical Examination Allergies: Coded Allergies: No Known Drug Allergies (Unverified , 12/09/16) Vitals & I&Os Vital Signs Date Time Temp Pulse Resp B/P (MAP) Pulse Ox O2 Delivery O2 Flow Rate FiO2 12/16/16 09:00 94 Nasal Cannula 2.00 12/16/16 07:57 98.4 73 20 137/78 12/11/16 10:11 2 Hospital Course Hospital course: Patient had a lengthy hospital course due to the severity of her C. difficile colitis. General surgery was consulted and monitor closely. Patient was placed on thank by mouth and timed along with Questran twice daily in addition to Flagyl by mouth and Lactinex. Overall she improved greatly maintained on nebulizer treatments and oxygen supplementation and Dr. 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 She was continued on all home medication including chronic pain medication and improved enough labs remained stable and was felt making criteria for discharge with close follow-up and maintained on vancomycin and Flagyl until regimen completed. Labs (last 24 hrs) Laboratory Tests 12/15/16 16:19: Glucometer 132H 12/15/16 20:31: Glucometer 103 12/16/16 05:22: Glucometer 103 Microbiology 12/09/16 Blood Culture - Final, Complete No growth 12/09/16 Cryptosporidium/Giardia - Final, Complete 12/09/16 Urine Culture - Final, Complete Group B Streptococci Enterococcus Species Proteus Species Gram Negative Hadley See Comments Pending Labs Laboratory Tests 12/16/16 05:22: Glucometer 103 Discharge Home Medications: Active Scripts Active Vancomycin ORAL Compound 250mg/5 ml (Vancomycin HCl) 125 Mg/2.5 Ml Syringe 250 Mg PO QID 9 Days TAKE 1 TEASPOON (5ML) BY MOUTH FOUR TIMES DAILY UNTIL ALL GONE Floranex Tablet (L. Acidophilus/Bulgaricus) 1 Each Tablet 1 Tab.chew PO AC Advair Hfa 115-21 Mcg Inhaler (Fluticasone/Salmeterol) 12 Gm Hfa.aer.ad 0 Puff IH BID@08,20 Prevalite Packet (Cholestyramine/Aspartame) 4 Gm Powd.pack 4 Gm PO BID@0900,2100 Metronidazole 500 Mg Tablet 500 Mg PO TID Reported Carvedilol 12.5 Mg Tablet 12.5 Mg PO DAILY Vitamin D3 (Cholecalciferol (Vitamin D3)) 1,000 Unit Capsule 1,000 Unit PO DAILY B Complex (Vitamin B Complex) 1 Each Tablet 1 Tab.chew PO DAILY Fish Oil 1,000 mg Capsule (Gilbert 3 Polyunsat Fatty Acids) 1,000 Mg Cap 1,000 Mg PO DAILY Oxycodone-Acetaminophen 10-325 (Oxycodone HCl/Acetaminophen) 1 Each Tablet 1 Tab PO Q6H PRN Oxycontin (Oxycodone HCl) 30 Mg Tab.er.12h 30 Mg PO Q12H Januvia (Sitagliptin Phosphate) 100 Mg Tablet 100 Mg PO DAILY Magnesium Oxide 400 Mg Tablet 400 Mg PO DAILY Calcium Carbonate 500 Mg Tablet 1,000 Mg PO DAILY TAKES TWO (500 MG) TABLETS Duloxetine HCl 60 Mg Capsule.dr 60 Mg PO DAILY Combivent Respimat Inhal [place] (Albuterol/Ipratropium) 4 Gm Aero 2 Puff IH Q4H PRN Fluoxetine HCl 40 Mg Capsule 80 Mg PO DAILY TAKES 2 (40MG) CAPSULES Amlodipine Besylate 10 Mg Tablet 10 Mg PO DAILY Lisinopril 20 Mg Tablet 20 Mg PO DAILY Instructions to patient/family Please see electonic discharge instructions given to patient. Clinical Quality Measures DVT/VTE Risk/Contraindication: Risk Factor Score Per Nursin RFS Level Per Nursing on Admit: 4+=Very High ALEIDA LICEA DO Dec 16, 2016 10:22
[2016-12-16] MEDS ORDERED: VANC125S PO (10:46)
[2016-12-16] MEDS ORDERED: CHERRY SYRUP PO SCH ×2 (12:00)
[2016-12-16] MEDS ORDERED: VANCOMYCIN PO SCH ×2 (12:00)
[2016-12-16 12:32] VITALS: BP 137/78
== END 2016-12-16 12:34 | disposition home or self-care (01) | DRG 871 ==
LOC: EDUNIT# 07:05 → ER 07:07 → 4TH 10:15
PROVIDERS: ADMIT Internal Medicine; ATTEND Internal Medicine
DX: A41.9 Sepsis, unspecified organism (principal); A04.7 Enterocolitis due to Clostridium difficile; K57.33 Diverticulitis of large intestine without perforation or abscess with bleeding; N18.2 Chronic kidney disease, stage 2 (mild); G47.33 Obstructive sleep apnea (adult) (pediatric); F17.210 Nicotine dependence, cigarettes, uncomplicated; J44.9 Chronic obstructive pulmonary disease, unspecified; I12.9 Hypertensive chronic kidney disease with stage 1 through stage 4 chronic kidney disease, or unspecified chronic kidney disease; E11.9 Type 2 diabetes mellitus without complications; E78.00 Pure hypercholesterolemia, unspecified; G57.91 Unspecified mononeuropathy of right lower limb; M79.7 Fibromyalgia; Z99.81 Dependence on supplemental oxygen
CPT/HCPCS: 36415; 71010; 74176; 80048; 80053; 81000; 82274; 82962; 83605; 83690; 83735; 84484; 85007; 85025; 85027; 85610; 85730; 87040; 87045; 87046; 87088; 87324; 87328; 87329; 87449; 89055; 94640; 94760; 96361; 96374

== ENCOUNTER 2017-01-09 12:18 | Emergency (ER) | payer MEDICAID ==
[~2017-01-09] VITALS: Ht 160 cm; Wt 127.1 kg
[~2017-01-09 12:18] MED LIST changes: +ACID1TAB PO; +CARV12.53 PO; +CHOL10007 PO; +CHOL4PAC3 PO; +FLUT12AE4 IH; +METR500T21 PO; +OMG1KC PO; +OXYC30TA77 PO; +SITA100T12 PO; +VANC125S PO; +VITA-189 PO
--- OUTSIDE RECORDS SUMMARY | 2017-01-09 12:23 | XMS REPORT | Clinical Summary ---
Author Author [facility] Organization [facility] Address Unknown Phone Unavailable Care Team Providers Care Tile Setter Name Role Phone PCP Unavailable Source Comments Some departments are not documenting in the electronic medical record. If you do not see the information that you expected, contact Release of Information in the Health Information Management department at [phone] for further assistance in locating additional records.[facility] Allergies Not on File Current [...] 2004 SCREENING SHINGLES VACCINE 2014 INFLUENZA VACCINE 01/10/2017 Results Not on filefrom Last 3 Months
[2017-01-09] MEDS ORDERED: NS IV 1000 ML 1,000 ML IV ONE (12:30)
[2017-01-09] MEDS ORDERED: ONDANSETRON 4 MG/2 ML (SDV) Z0FRAN IVP ONE (12:30)
--- NOTE | 2017-01-09 12:37 | ED GI ---
General Chief Complaint: General Problems/Pain Stated Complaint: WEAKNESS Source of Information: Patient, EMS Exam Limitations: No Limitations History of Present Illness Time Seen By Provider: 12:25 Initial Comments Patient presents to ER by EMS with a chief complaint that she is having some generalized abdominal tenderness and copious diarrhea with blood in it. She says about a month ago she was hospitalized for C. difficile colitis and couple days after discharge on November 15 she was doing much better. She is not hospital for approximately 6-7 days. She states that she was doing well until about 1-1/ 2 weeks ago when she started having diarrhea again with blood in it so she took a stool sample to her primary care physician and he called her out on order of vancomycin which she's been on for about 2 or 3 days. She says she feels tired, weak, anorexia, nauseated and dehydrated. She does not feel better after starting the antibiotic. She has been taking probiotics as well as her own home medicines. She has high blood pressure, diabetes she uses Januvia 4, cholesterol and depression. She did not take her medicines this morning because of her poor appetite and nausea. She's taken Tums for her nausea which helped a little. She's had tubal ligation, hysterectomy, 2 C-sections, appendix removed and 14 cm of colon resected secondary to diverticulitis. She says diverticulosis was seen and her last colonoscopy which was approximately 7-10 years ago. She is scheduled for a colonoscopy in 1 month. Allergies and Home Medications Allergies Coded Allergies: No Known Drug Allergies (Unverified , 12/09/16) Home Medications Albuterol/Ipratropium 4 Gm Aero, 2 PUFF IH Q4H PRN for SHORTNESS OF BREATH, ( Reported) Amlodipine Besylate 10 Mg Tablet, 10 MG PO DAILY, (Reported) Calcium Carbonate 500 Mg Tablet, 1,000 MG PO DAILY, (Reported) TAKES TWO (500 MG) TABLETS Carvedilol 12.5 Mg Tablet, 12.5 MG PO DAILY, (Reported) Cholecalciferol (Vitamin D3) 1,000 Unit Capsule, 1,000 UNIT PO DAILY, (Reported) Cholestyramine/Aspartame 4 Gm Powd.pack, 4 GM PO BID@0900,2100, #28 Prescribed by: ALEIDA LICEA on 12/16/16 1020 Duloxetine HCl 60 Mg Capsule.dr, 60 MG PO DAILY, (Reported) Fluoxetine HCl 40 Mg Capsule, 80 MG PO DAILY, (Reported) TAKES 2 (40MG) CAPSULES Fluticasone/Salmeterol 12 Gm Hfa.aer.ad, 0 PUFF IH BID@, #1 Prescribed by: ALEIDA LICEA on 12/16/16 1020 L. Acidophilus/Bulgaricus 1 Each Tablet, 1 TAB.CHEW PO AC, #50 Prescribed by: ALEIDA LICEA on 12/16/16 1020 Lisinopril 20 Mg Tablet, 20 MG PO DAILY, (Reported) Magnesium Oxide 400 Mg Tablet, 400 MG PO DAILY, (Reported) Metronidazole 500 Mg Tablet, 500 MG PO TID, #30 Prescribed by: ALEIDA LICEA on 12/16/16 1020 [place] 3 Polyunsat Fatty Acids 1,000 Mg Cap, 1,000 MG PO DAILY, (Reported) Oxycodone HCl 30 Mg Tab.er.12h, 30 MG PO Q12H, (Reported) Oxycodone HCl/Acetaminophen 1 Each Tablet, 1 TAB PO Q6H PRN for BREAKTHROUGH PAIN, (Reported) Sitagliptin Phosphate 100 Mg Tablet, 100 MG PO DAILY, (Reported) Vancomycin HCl 125 Mg/2.5 Ml Syringe, 250 MG PO QID for 9 Days TAKE 1 TEASPOON (5ML) BY MOUTH FOUR TIMES DAILY UNTIL ALL GONE Prescribed by: ALEIDA LICEA on 12/16/16 1046 Vitamin B Complex 1 Each Tablet, 1 TAB.CHEW PO DAILY, (Reported) Review of Systems Constitutional: chills, diaphoresis, No fever, malaise, weakness EENTM: No Blurred Vision, No Double Vision Respiratory: Denies Cough, Denies Shortness of Air Cardiovascular: Denies Chest Pain, Denies Edema Gastrointestinal: See HPI, Abdominal Pain, Denies Constipated, Diarrhea, Nausea , Denies Vomiting Genitourinary: Denies Burning, Denies Discharge Musculoskeletal: No back pain, No joint pain Skin: No pruritus, No rash Psychiatric/Neurological: Denies Headache, Denies Numbness, Denies Paresthesia Past Kflmmff-Nqnucd-Swarus Hx Patient Social History Alcohol Use: Denies Use Recreational Drug Use: Yes (occasional marijuana) Smoking Status: Current Everyday Smoker Type Used: Cigarettes (0.5 ppd) Recent Hopitalizations: No Immunizations Up To Date Tetanus Booster (TDap): More than 5yrs Date of Pneumonia Vaccine: Apr 12, 2013 Date of Influenza Vaccine: Jan 18, 2015 Surgeries History of Surgeries: Yes (COLON RESECTION, C/S X2, BILAT CTR, c-spine fusion) Surgeries: Section, Orthopedic Respiratory History of Respiratory Disorde: Yes (BI-PAP, OXYGEN) Respiratory Disorders: Sleep Apnea, COPD, Emphysema Currently Using BIPAP: Yes Cardiovascular History of Cardiac Disorders: Yes Cardiac Disorders: High Cholesterol, Hypertension Neurological History of Neurological Disord: Yes (chronic numbness rt proximal lateral thigh.) Neurological Disorders: Neuropathy 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 System Hx 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 Disorders: No Female 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 Disorders: Denies Genitourinary History of Genitourinary Disor: No Gastrointestinal History of Gastrointestinal Di: Yes (COLON RESECTION, ) Gastrointestinal Disorders: Chronic Constipation Musculoskeletal History of Musculoskeletal Dis: Yes (STENOSIS. chronic neck pain.) Musculoskeletal Disorders: Degenerate Disk Disease, Fibromyalgia, Chronic Back Pain Endocrine History of Endocrine Disorders: Yes Endocrine Disorders: Diabetes, Non-Insulin dep Cancer History of Cancer: No Psychosocial History of Psychiatric Problem: Yes Behavioral Health Disorders: Depression Integumentary History of Skin or Integumenta: No Blood Transfusions History of Blood Disorders: No Family Medical History Significant Family History: No Pertinent Family Hx Family Medial History: Arthritis 19 FATHER Cardiovascular disease 19 FATHER Completed stroke 19 MOTHER Diabetes mellitus 19 FATHER Hypertension 19 FATHER G8 SISTER Myocardial infarction 19 FATHER Respiratory disorder 19 MOTHER Physical Exam Vital Signs VS - Last 72 Hours, by Label 01/09/17 12:18 Temp 98.7 Pulse 81 Resp 20 B/P (MAP) 124/80 Pulse Ox 98 O2 Delivery Nasal Cannula O2 Flow Rate 2.00 Capillary Refill : General Appearance: mild distress, obese HEENT: PERRL/EOMI, pharynx normal (oropharynx is mildly dry) Neck: non-tender, normal inspection Respiratory: chest non-tender, lungs clear, normal breath sounds Cardiovascular: normal peripheral pulses, regular rate, rhythm Peripheral Pulses: 2+ Dorsalis Pedis (R), 2+ Left Dors-Pedis (L) Gastrointestinal: normal bowel sounds, soft, no pulsatile mass, tenderness ( diffusely specially left lower quadrant) Extremities: non-tender, normal inspection, normal capillary refill Neurologic/Psychiatric: alert, normal mood/affect, oriented x 3 Skin: normal color, warm/dry Focused Exam Evaluation Lactate Level Laboratory Tests 01/09/17 12:41: Lactic Acid Level 0.70 Lactic Acid Level Laboratory Tests Test 01/09/17 12:41 Lactic Acid Level 0.70 MMOL/L (0.50-2.00) Progress/Results/Core Measures Results/Orders Lab Results Laboratory Tests Test 01/09/17 12:41 01/09/17 13:21 Range/Units White Blood Count 10.4 4.3-11.0 10^3/uL Red Blood Count 4.77 4.35-5.85 10^6/uL Hemoglobin 13.5 11.5-16.0 G/DL Hematocrit 42 35-52 % Mean Corpuscular Volume 88 80-99 FL Mean Corpuscular Hemoglobin 28 25-34 PG Mean Corpuscular Hemoglobin Concent 32 32-36 G/DL Red Cell Distribution Width 14.6 H 10.0-14.5 % Platelet Count 238 130-400 10^3/uL Mean Platelet Volume 9.9 7.4-10.4 FL Neutrophils (%) (Auto) 73 42-75 % Lymphocytes (%) (Auto) 18 12-44 % Monocytes (%) (Auto) 8 0-12 % Eosinophils (%) (Auto) 1 0-10 % Basophils (%) (Auto) 0 0-10 % Neutrophils # (Auto) 7.5 1.8-7.8 X 10^3 Lymphocytes # (Auto) 1.9 1.0-4.0 X 10^3 Monocytes # (Auto) 0.9 0.0-1.0 X 10^3 Eosinophils # (Auto) 0.1 0.0-0.3 10^3/uL Basophils # (Auto) 0.0 0.0-0.1 10^3/uL Sodium Level 142 135-145 MMOL/L Potassium Level 3.7 3.6-5.0 MMOL/L Chloride Level 106 98-107 MMOL/L Carbon Dioxide Level 24 21-32 MMOL/L Anion Gap 12 5-14 MMOL/L Blood Urea Nitrogen 10 7-18 MG/DL Creatinine 0.78 0.60-1.30 MG/DL Estimat Glomerular Filtration Rate > 60 BUN/Creatinine Ratio 13 Glucose Level 106 H 70-105 MG/DL Lactic Acid Level 0.70 0.50-2.00 MMOL/L Calcium Level 9.1 8.5-10.1 MG/DL Magnesium Level 1.7 L 1.8-2.4 MG/DL Total Bilirubin 0.5 0.1-1.0 MG/DL Aspartate Amino Transf (AST/SGOT) 13 5-34 U/L Alanine Aminotransferase (ALT/SGPT) 14 0-55 U/L Alkaline Phosphatase 56 40-136 U/L Total Protein 7.2 6.4-8.2 GM/DL Albumin 3.9 3.2-4.5 GM/DL Lipase 14 8-78 U/L Urine Color YELLOW Urine Clarity CLEAR Urine pH 6 5-9 Urine Specific [place] 1.015 L 1.016-1.022 Urine Protein 1+ H NEGATIVE Urine Glucose (UA) NEGATIVE NEGATIVE Urine Ketones NEGATIVE NEGATIVE Urine Nitrite NEGATIVE NEGATIVE Urine Bilirubin NEGATIVE NEGATIVE Urine Urobilinogen NORMAL NORMAL MG/DL Urine Leukocyte Esterase 1+ H NEGATIVE Urine RBC (Auto) 2+ H NEGATIVE Urine RBC 5-10 H /HPF Urine WBC 2-5 /HPF Urine Squamous Epithelial Cells 5-10 /HPF Urine Crystals NONE /LPF Urine Bacteria TRACE /HPF Urine Casts NONE /LPF Urine Mucus SMALL H /LPF Urine Culture Indicated NO Stool Occult Blood Immunoassay POSITIVE H NEGATIVE Micro Results Microbiology 01/09/17 Fecal Leukocyte Stain, Resulted Pending 01/09/17 C. difficile DNA Amplification - Final, Resulted 01/09/17 C. difficile GDH Antigen & Toxins - Final, Resulted 01/09/17 Stool Culture, Resulted Pending My Orders Orders - MARVIN CORREIA Ct Abdomen/Pelvis Wo (01/09/17 12:30) Saline Lock/Iv-Start (01/09/17 12:30) Cbc With Automated Diff (01/09/17 12:30) Comprehensive Metabolic Panel (01/09/17 12:30) Lactic Acid Analyzer (01/09/17 12:30) Lipase (01/09/17 12:30) Magnesium (01/09/17 12:30) Ua Culture If Indicated (01/09/17 12:30) Ns Iv 1000 Ml (Sodium Chloride 0.9%) (01/09/17 12:30) Ondansetron Injection (Zofran Injectio (01/09/17 12:30) C Difficile Ag + Toxin A/B. (01/09/17 12:43) Stool Culture (01/09/17 12:43) Occult Blood Stool (01/09/17 12:43) Fecal Wbc (01/09/17 12:43) Magnesium Oxide Tablet (Mag Ox Tablet) (01/09/17 14:30) Medications Given in ED Current Medications Medications Dose Ordered Sig/Gracie Route Start Time Stop Time Status Last Admin Dose Admin Magnesium Oxide 400 mg ONCE ONCE PO 01/09/17 14:30 01/09/17 14:31 DC 01/09/17 14:29 400 MG Ondansetron HCl 4 mg ONCE ONCE IVP 01/09/17 12:30 01/09/17 12:35 DC 01/09/17 12:46 4 MG Sodium Chloride 1,000 ml @ 0 mls/hr Q0M ONCE IV 01/09/17 12:30 01/09/17 12:35 DC 01/09/17 12:46 1,000 MLS/HR Vital Signs/I&O Vital Sign - Last 12Hours 01/09/17 12:18 Temp 98.7 Pulse 81 Resp 20 B/P (MAP) 124/80 Pulse Ox 98 O2 Delivery Nasal Cannula O2 Flow Rate 2.00 Intake and Output 01/10/17 00:00 Intake Total 1000 ml Balance 1000 ml Progress Note : Time: 14:40 Progress Note C. difficile toxin assay was negative for toxin but positive for antigen. We'll go ahead and assume that this is from her recent C. difficile infection and that this diverticulitis may be from another organism. Since she is not feeling better on the vancomycin we'll switch her up to Cipro and Flagyl more common treatment for colitis in general. She has no white count and is able to tolerate by mouth's and ambulate and take care of herself so she does not need inpatient hospitalization at this time. We will get her set up to follow her primary care physician in the clinic in the middle of next week and give her some nausea medicines for home. Diagnostic Imaging Diagonstic Imaging: CT Plain Films/CT/US/NM/MRI: abdomen, pelvis (without) Comments Sigmoid and descending colon diverticulitis more pronounced since 12/09/16. Nonobstructing renal calculi. No free fluid or air, no abscess or perforation. NAME: ASHLEY VENTURA [facility] REC#: [id number] PHYSICIAN: MARVIN CORREIA MD CC: SERAFIN GASTELUM MD; MARVIN CORREIA Page 2 of 2 RADIOLOGY REPORT VIA [facility], [facility]. [place], [place] CC: SERAFIN GASTELUM MD; MARVIN CORREIA Page 1 of 2 RADIOLOGY REPORT NAME: ASHLEY VENTURA REC#: [id number] PT STATUS: REG ER : 1955 PHYSICIAN: MARVIN CORREIA MD ADMIT DATE: 01/09/17/ER Signed Date of Exam: 01/09/17 CT ABDOMEN/PELVIS WO PROCEDURE: CT abdomen and pelvis without contrast. TECHNIQUE: Multiple contiguous axial images were obtained through the abdomen and pelvis without the use of intravenous contrast. INDICATION: Pelvic pain for one month. FINDINGS: The liver, gallbladder and bile ducts are normal. The spleen, pancreas and adrenals are normal. There is an 18 mm calculus in the left renal pelvis which is currently not causing any obstruction. There is a 3 mm nonobstructing calculus in the lower pole of left kidney. There is a 5 cm cyst on the left kidney. There is 1 cm nonobstructing calcification in the lower pole of the right kidney. No hydronephrosis on either side is seen. The ureters and bladder are normal. There is diverticulosis of the colon. There is inflammation of the sigmoid colon consistent with diverticulitis with no perforation or obstruction evident at this time. There is no abscess. There is a ventral hernia just to the left of umbilicus which contains a loop of small bowel with no edema or obstruction evident at this time. IMPRESSION: There is diverticulitis of the sigmoid colon. There is a ventral hernia containing a loop of bowel. There are bilateral nonobstructing renal stones present. The diverticulitis looks worse compared to the CT from 12/09/16. The remainder of the study is stable. Dictated by: Dictated on workstation # [id number] Dict: 01/09/17 1300 Trans: 01/09/17 1315 Interpreted by: SERAFIN GASTELUM MD Electronically signed by: SERAFIN GASTELUM MD 01/09/171 Reviewed: Reviewed by Ri Departure Impression Impression: Primary Impression: Diverticulitis large intestine Qualified Codes: K57.33 - Diverticulitis of large intestine without perforation or abscess with bleeding Additional Impressions: Hematuria Qualified Codes: R31.21 - Asymptomatic microscopic hematuria Hypomagnesemia Disposition: 01 HOME, SELF-CARE Condition: Stable Departure-Patient Inst. Decision time for Depature: 14:42 Referrals: FELIZ LINCOLN MD (PCP/Family) Primary Care Physician Patient Instructions: Blood in the Urine (Hematuria), Adult (DC), Diverticulitis (DC) Add. Discharge Instructions: Wednesday morning please call your doctor and have an appointment set up for this week to follow up. Stop taking the vancomycin. Start taking the ciprofloxacin 500 mg twice a day and the Flagyl 500 mg 3 times a day by mouth for the next week. If you have nausea you may take one tablet of Zofran and place under your tongue allowed to dissolve an absorbent to your mouth every 6 hours. Eat a bland diet consisting of foods like bananas, rice, applesauce and toast. If you have new or worrisome symptoms such as fevers, intractable nausea and vomiting despite Zofran, chills, shortness of breath, chest pain then you should return to the ER otherwise please follow up with your primary care physician. Obtain and take probiotics twice a day by mouth as well as Ukrainian yogurt twice a day. All discharge instructions reviewed with patient and/or family. Voiced understanding. Scripts Ciprofloxacin HCl (Ciprofloxacin HCl) 500 Mg Tablet 500 MG PO BID for 7 Days, #14 TAB 0 Refills Prov: MARVIN CORREIA 01/09/17 Metronidazole (Flagyl) 500 Mg Tablet 500 MG PO Q8H for 7 Days, #21 TAB 0 Refills Prov: MARVIN CORREIA 01/09/17 Ondansetron (Ondansetron Odt) 4 Mg Tab.rapdis 4 MG PO Q6H Y for NAUSEA/VOMITING, #20 TAB 0 Refills Prov: MARVIN CORREIA 01/09/17 Copy Copies To 1: FELIZ LINCOLN MD, TITUS J Jan 09, 2017 12:37
[2017-01-09 12:47] LABS: BASOPHILS % (AUTO) 0 % (0-10); EOSINOPHILS # (AUTO) 0.1 10^3/uL (0.0-0.3); EOSINOPHILS % (AUTO) 1 % (0-10); LYMPHOCYTES # (AUTO) 1.9 X 10^3 (1.0-4.0); LYMPHOCYTES % (AUTO) 18 % (12-44); MEAN CORPUSCULAR HEMOGLOBIN 28 PG (25-34); MEAN CORPUSCULAR HGB CONC 32 G/DL (32-36); MEAN CORPUSCULAR VOLUME 88 FL (80-99); MEAN PLATELET VOLUME 9.9 FL (7.4-10.4); MONOCYTES # (AUTO) 0.9 X 10^3 (0.0-1.0); MONOCYTES % (AUTO) 8 % (0-12); NEUTROPHILS # (AUTO) 7.5 X 10^3 (1.8-7.8); NEUTROPHILS % (AUTO) 73 % (42-75); PLATELET COUNT 238 10^3/uL (130-400); RED BLOOD COUNT 4.77 10^6/uL (4.35-5.85); RED CELL DISTRIBUTION WIDTH 14.6 % (10.0-14.5); WHITE BLOOD COUNT 10.4 10^3/uL (4.3-11.0)
--- NOTE | 2017-01-09 13:07 | Diagnostic Imaging Report ---
PROCEDURE: CT abdomen and pelvis without contrast. TECHNIQUE: Multiple contiguous axial images were obtained through the abdomen and pelvis without the use of intravenous contrast. INDICATION: Pelvic pain for one month. FINDINGS: The liver, gallbladder and bile ducts are normal. The spleen, pancreas and adrenals are normal. There is an 18 mm calculus in the left renal pelvis which is currently not causing any obstruction. There is a 3 mm nonobstructing calculus in the lower pole of left kidney. There is a 5 cm cyst on the left kidney. There is 1 cm nonobstructing calcification in the lower pole of the right kidney. No hydronephrosis on either side is seen. The ureters and bladder are normal. There is diverticulosis of the colon. There is inflammation of the sigmoid colon consistent with diverticulitis with no perforation or obstruction evident at this time. There is no abscess. There is a ventral hernia just to the left of umbilicus which contains a loop of small bowel with no edema or obstruction evident at this time. IMPRESSION: There is diverticulitis of the sigmoid colon. There is a ventral hernia containing a loop of bowel. There are bilateral nonobstructing renal stones present. The diverticulitis looks worse compared to the CT from 12/09/16. The remainder of the study is stable. Dictated by: Dictated on workstation # [id number]
[2017-01-09 13:08] LABS: ALANINE AMINOTRANSFERASE 14 U/L (0-55); ALBUMIN 3.9 GM/DL (3.2-4.5); ANION GAP 12 MMOL/L (5-14); ASPARTATE AMINO TRANSFERASE 13 U/L (5-34); BILIRUBIN,TOTAL 0.5 MG/DL (0.1-1.0); BLOOD UREA NITROGEN 10 MG/DL (7-18); BUN/CREATININE RATIO 13; CALCIUM 9.1 MG/DL (8.5-10.1); CARBON DIOXIDE 24 MMOL/L (21-32); CHLORIDE 106 MMOL/L (98-107); CREATININE SERUM 0.78 MG/DL (0.60-1.30); GFR ESTIMATED > 60; GLUCOSE 106 MG/DL (70-105); LIPASE 14 U/L (8-78); MAGNESIUM 1.7 MG/DL (1.8-2.4); POTASSIUM 3.7 MMOL/L (3.6-5.0); SODIUM 142 MMOL/L (135-145); TOTAL PROTEIN 7.2 GM/DL (6.4-8.2)
[2017-01-09 13:33] LABS: BILIRUBIN,URINE NEGATIVE (NEGATIVE); KETONES,URINE NEGATIVE (NEGATIVE); LEUKOCYTE ESTERASE ,URINE 1+ (NEGATIVE); NITRITE,URINE NEGATIVE (NEGATIVE); PH,URINE 6 (5-9); PROTEIN,URINE 1+ (NEGATIVE); UROBILINOGEN,URINE NORMAL (NORMAL)
[2017-01-09] MEDS ORDERED: MAGNESIUM OXIDE (MAG-OX)400 MG TAB PO ONE (14:30)
[2017-01-09] MEDS ORDERED: metroNIDAZOLE 500 MG (FLAGYL) TAB PO ONE (14:45)
[2017-01-09] MEDS ORDERED: CIPROFLOXACIN 500 MG (CIPRO) TABLET PO SCH (14:45)
[2017-01-09] MEDS ORDERED: METR500T PO (14:47)
[2017-01-09] MEDS ORDERED: CIPR500T4 PO (14:47)
[2017-01-09] MEDS ORDERED: ONDA4TAB11 PO (14:47)
[2017-01-09] MEDS ORDERED: RX-ONDANSETRON 4 MG ODT (ZOFRAN) PPK #4 PO STA (14:48)
[2017-01-09 15:00] VITALS: BP 115/64
== END 2017-01-09 15:00 | disposition home or self-care (01) ==
LOC: EDUNIT# 12:18 → ER 12:20
DX: K57.32 Diverticulitis of large intestine without perforation or abscess without bleeding (principal); F32.9 Major depressive disorder, single episode, unspecified; E11.40 Type 2 diabetes mellitus with diabetic neuropathy, unspecified; M47.9 Spondylosis, unspecified; E78.00 Pure hypercholesterolemia, unspecified; I10 Essential (primary) hypertension; J43.9 Emphysema, unspecified; G47.30 Sleep apnea, unspecified; F17.210 Nicotine dependence, cigarettes, uncomplicated; Z87.59 Personal history of other complications of pregnancy, childbirth and the puerperium
CPT/HCPCS: 36415; 74176; 80053; 81000; 82274; 83605; 83690; 83735; 85025; 87045; 87046; 87324; 87449; 89055; 96361; 96374

== ENCOUNTER 2017-03-04 15:27 | Emergency (ER) | payer MEDICAID ==
[~2017-03-04] VITALS: Ht 160 cm; Wt 119.3 kg
[~2017-03-04 15:27] MED LIST changes: +CIPR500T4 PO; +METR500T PO; +ONDA4TAB11 PO
--- OUTSIDE RECORDS SUMMARY | 2017-03-04 15:47 | XMS REPORT | Clinical Summary ---
Author Author [facility] Organization [facility] Address Unknown Phone Unavailable Care Team Providers Care Director Of Photography Name Role Phone PCP Unavailable Source Comments Some departments are not documenting in the electronic medical record. If you do not see the information that you expected, contact Release of Information in the Health Information Management department at [phone] for further assistance in locating additional records.[facility] Allergies Not on File Current [...] 2004 SCREENING SHINGLES VACCINE 2014 INFLUENZA VACCINE 11/10/2016 Results Not on filefrom Last 3 Months
--- NOTE | 2017-03-04 16:11 | ED Head Injury ---
General Chief Complaint: Trauma-Non Activation Stated Complaint: FALL Nursing Triage Note: AMB TO ROOM REPORTS TODAY TRIPPED ON LAST 2 STAIRS AND FELL FACE DOWN. HEMATOMA TO FOREHEAD,AND SUPERFICIAL LACERATION TO UPPER LIP Source: patient Exam Limitations: no limitations History of Present Illness Time seen by provider: 15:31 Initial Comments 61-year-old female patient presents to the emergency department with complaints of falling after tripping last 2 stairs. Reports falling forward onto her face. Complains of a hematoma before head and laceration of the upper lip. Did have a nosebleed. Complains of headache, left hand pain, and right knee pain. Denies loss of consciousness or confusion. Denies back pain. Location Injury Occurred: home Occurred: just prior to arrival Location: frontal Method of Injury: fell Loss of Consciousness: no loss of consciousness Allergies and Home Medications Allergies Coded Allergies: No Known Drug Allergies (Unverified , 12/09/16) Home Medications Albuterol/Ipratropium 4 Gm Aero, 2 PUFF IH Q4H PRN for SHORTNESS OF BREATH, ( Reported) Amlodipine Besylate 10 Mg Tablet, 10 MG PO DAILY, (Reported) Calcium Carbonate 500 Mg Tablet, 1,000 MG PO DAILY, (Reported) TAKES TWO (500 MG) TABLETS Carvedilol 12.5 Mg Tablet, 12.5 MG PO DAILY, (Reported) Cefdinir 300 Mg Capsule, 300 MG PO BID, #20 Ref 0 Prescribed by: GARY MIXON on 03/04/17 1727 Cholecalciferol (Vitamin D3) 1,000 Unit Capsule, 1,000 UNIT PO DAILY, (Reported) Cholestyramine/Aspartame 4 Gm Powd.pack, 4 GM PO BID@0900,2100, #28 Prescribed by: ALEIDA LICEA on 12/16/16 1020 Ciprofloxacin HCl 500 Mg Tablet, 500 MG PO BID for 7 Days, #14 Ref 0 Prescribed by: MARVIN CORREIA on 01/09/17 1447 Duloxetine HCl 60 Mg Capsule.dr, 60 MG PO DAILY, (Reported) Fluoxetine HCl 40 Mg Capsule, 80 MG PO DAILY, (Reported) TAKES 2 (40MG) CAPSULES Fluticasone/Salmeterol 12 Gm Hfa.aer.ad, 0 PUFF IH BID@08,20, #1 Prescribed by: ALEIDA LICEA on 12/16/16 1020 L. Acidophilus/Bulgaricus 1 Each Tablet, 1 TAB.CHEW PO AC, #50 Prescribed by: ALEIDA LICEA on 12/16/16 1020 Lisinopril 20 Mg Tablet, 20 MG PO DAILY, (Reported) Magnesium Oxide 400 Mg Tablet, 400 MG PO DAILY, (Reported) Metronidazole 500 Mg Tablet, 500 MG PO TID, #30 Prescribed by: ALEIDA LICEA on 12/16/16 1020 Metronidazole 500 Mg Tablet, 500 MG PO Q8H for 7 Days, #21 Ref 0 Prescribed by: MARVIN CORREIA on 01/09/17 1447 [place] 3 Polyunsat Fatty Acids 1,000 Mg Cap, 1,000 MG PO DAILY, (Reported) Ondansetron 4 Mg Tab.rapdis, 4 MG PO Q6H PRN for NAUSEA/VOMITING, #20 Ref 0 Prescribed by: MARVIN CORREIA on 01/09/17 1447 Oxycodone HCl 30 Mg Tab.er.12h, 30 MG PO Q12H, (Reported) Oxycodone HCl/Acetaminophen 1 Each Tablet, 1 TAB PO Q6H PRN for BREAKTHROUGH PAIN, (Reported) Sitagliptin Phosphate 100 Mg Tablet, 100 MG PO DAILY, (Reported) Vancomycin HCl 125 Mg/2.5 Ml Syringe, 250 MG PO QID for 9 Days TAKE 1 TEASPOON (5ML) BY MOUTH FOUR TIMES DAILY UNTIL ALL GONE Prescribed by: ALEIDA LICEA on 12/16/16 1046 Vitamin B Complex 1 Each Tablet, 1 TAB.CHEW PO DAILY, (Reported) Constitutional: No dizziness, No weakness Eyes: Denies Blurred Vision, Denies Drainage, Denies Decreased Acuity, Denies Pain, Denies Photophobia, Denies Vision Changes Ears, Nose, Mouth, Throat: denies ear pain, denies ear discharge, nose pain, denies nose discharge, epistaxis, denies mouth pain, denies loose teeth, denies throat pain Respiratory: No cough, No dyspnea on exertion, No short of breath Cardiovascular: No chest pain, No palpitations, No syncope Gastrointestinal: no symptoms reported Genitourinary: no symptoms reported Musculoskeletal: No back pain, joint pain (left thumb and right knee pain), No neck pain Skin: see HPI Psychiatric/Neurological: Denies Cognitive Dysfunction, Headache, Denies Numbness, Denies [place] Seizures, Denies Tingling, Denies Tonic Clonic Seizures, Denies Unable to Move Lower Ext, Denies Unable to Move Upper Ext, Denies Weakness All Other Systems Reviewed Negative Unless Noted: Yes (Negative excepted noted.) Past Offyyxn-Thohjc-Irfmad Hx Patient Social History Alcohol Use: Denies Use Recreational Drug Use: Yes Drug of Choice: POT Smoking Status: Current Everyday Smoker Type Used: Cigarettes 2nd Hand Smoke Exposure: Yes Recent Foreign Travel: No Contact w/Someone Who Travel: No Recent Infectious Disease Expo: No Recent Hopitalizations: Yes ( FOR C-DIFF) Immunizations Up To Date Tetanus Booster (TDap): More than 5yrs Date of Pneumonia Vaccine: Apr 12, 2013 Date of Influenza Vaccine: Jan 18, 2015 Seasonal Allergies Seasonal Allergies: No Surgeries History of Surgeries: Yes (COLON RESECTION, C/S X2, BILAT CTR, c-spine fusion) Surgeries: Section, Orthopedic Respiratory History of Respiratory Disorde: Yes (BI-PAP, OXYGEN) Respiratory Disorders: Sleep Apnea, COPD, Emphysema Currently Using BIPAP: Yes Cardiovascular History of Cardiac Disorders: Yes Cardiac Disorders: High Cholesterol, Hypertension Neurological History of Neurological Disord: Yes (chronic numbness rt proximal lateral thigh.) Neurological Disorders: Neuropathy 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 System Hx 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 Disorders: No Female 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 Disorders: Denies Genitourinary History of Genitourinary Disor: No Gastrointestinal History of Gastrointestinal Di: Yes (COLON RESECTION, ) Gastrointestinal Disorders: Chronic Constipation Musculoskeletal History of Musculoskeletal Dis: Yes (STENOSIS. chronic neck pain.) Musculoskeletal Disorders: Degenerate Disk Disease, Fibromyalgia, Chronic Back Pain Endocrine History of Endocrine Disorders: Yes Endocrine Disorders: Diabetes, Non-Insulin dep HEENT History of HEENT Disorders: No Cancer History of Cancer: No Psychosocial History of Psychiatric Problem: Yes Behavioral Health Disorders: Depression Integumentary History of Skin or Integumenta: No Blood Transfusions History of Blood Disorders: No Reviewed Nursing Assessment Reviewed/Agree w Nursing PMH: Yes Family Medical History Significant Family History: No Pertinent Family Hx Family Medial History: Arthritis 19 FATHER Cardiovascular disease 19 FATHER Completed stroke 19 MOTHER Diabetes mellitus 19 FATHER Hypertension 19 FATHER G8 SISTER Myocardial infarction 19 FATHER Respiratory disorder 19 MOTHER Physical Exam Vital Signs Vital Sign - Last 12Hours 03/04/17 15:31 Temp 98.9 Pulse 80 Resp 18 B/P (MAP) 134/86 Pulse Ox 94 O2 Delivery Room Air Capillary Refill : Less Than 3 Seconds General Appearance: WD/WN, no apparent distress HEENT: PERRL/EOMI, TMs normal, pharynx normal, other (dried blood noted in the bilateral nares without active bleeding. mild swelling and tenderness of the nasal bridge without deformity. swelling, tenderness, and ecchymosis of the central forehead without skull depression. 1 cm superficial laceration of the upper lip.) Neck: full range of motion, supple, normal inspection, tender lateral, No tender midline Cardiovascular: normal peripheral pulses, regular rate, rhythm, no edema, no murmur Respiratory: chest non-tender, lungs clear, normal breath sounds, no respiratory distress, no accessory muscle use Gastrointestinal: normal bowel sounds, non tender, soft, no organomegaly Back: normal inspection, no vertebral tenderness (no stepoff, deformity, or swelling of the back.) Extremities: no pedal edema, normal capillary refill, pelvis stable, other ( swelling, ecchymosis, and bony/soft tissue tenderness of the left thumb and rt anterior knee.) Psychiatric: alert, oriented x 3 Cra[place] Nerves: normal hearing, normal speech, PERRL Coordination/Gait: normal finger to nose, normal gait, negative Romberg's sign Motor/Sensory: no motor deficit, no sensory deficit, no pronator drift Skin: normal color, warm/dry, other (1 cm superficial laceration of the upper lip.) [place] Coma Score Best Eye Response: (4) Open Spontaneously Best Verbal Response: (5) Oriented Best Motor Response: (6) Obeys Commands [place] Total: 15 Laceration Repair : Wound Location: Other (upper lip) Wound Length (cm): 1 Wound's Depth, Shape: superficial, irregular Wound Explored: clean Betadine Prep?: No (wound scrubbed with chlorasept and sterile saline. ) Other Closure Supply: Wound Adhesive Progress blood loss minimal. patient tolerated the procedure well. Progress/Results/Core Measures Results/Orders My Orders Orders - GARY MIXON Hand, Left, 3 Views (03/04/17 15:42) Ct Head/Face/Cervical Wo (03/04/17 15:42) Knee, Right, 3 Views (03/04/17 15:52) Fentanyl Injection (Sublimaze Injection (03/04/17 16:34) Vital Signs/I&O Vital Sign - Last 12Hours 03/04/17 03/04/17 15:31 17:27 Temp 98.9 Pulse 80 85 Resp 18 18 B/P (MAP) 134/86 Pulse Ox 94 98 O2 Delivery Room Air Room Air Blood Pressure Mean: 102 Diagnostic Imaging Diagonstic Imaging: CT Plain Films/CT/US/NM/MRI: facial bones, c-spine, head Comments CT HEAD: There is no mass, shift of the midline or hemorrhage to suggest an acute intracranial abnormality. The ventricles are not abnormally dilated. There are vague areas of low density in the periventricular white matter, bilaterally. These findings are nonspecific but may be secondary to encephalomalacia from microvascular ischemia. Cortical atrophy is also seen. The degree of atrophy is consistent with the patient's age. The bone windows show no sign of a skull fracture or of a destructive lesion. However, there is soft tissue edema and hematoma formation over the left frontal bone. There may be a slight buckle fracture of the left nasal plate. The orbits are symmetrical and within normal limits. The right maxillary antrum, where visualized, is opacified. The sinuses are otherwise clear. IMPRESSION: 1. There is soft tissue edema and hematoma formation over the left frontal bone. There is no sign of a skull fracture and there is no acute intracranial abnormality noted. 2. There is a question of a fracture of the left nasal plate. CT of the maxillofacial bones is pending for further study. CT MAXILLOFACIAL: As suggested on the CT head exam, there is slight buckling of the left nasal plate. Most likely this is due to a nondisplaced fracture. The orbital rims, zygomatic arches and mandible are intact. There is slight irregularity of the lateral wall of the right maxillary antrum. This finding may be due to prior trauma as opposed to an acute abnormality. Clinical followup is recommended. As noted on the CT head exam, the right maxillary antrum is opacified. The antrum also seems to be hypoplastic. The sinuses are otherwise clear. IMPRESSION: 1. The findings do suggest a nondisplaced fracture of the left nasal plate. There is no acute bony abnormality noted otherwise. 2. There is severe sinusitis of the right maxillary antrum and the antrum seems to be hypoplastic. The slight irregularity of the lateral wall of the right maxillary antrum may also be a sequela of prior trauma as opposed to an acute injury. Clinical followup is recommended. CT CERVICAL SPINE: The reconstructed sagittal images show postsurgical changes at C5, C6 and C7. Specifically, there are orthopedic fixation screws obliquely traversing the anterior aspects of C5, C6 and C7. There are also interbody devices at the C5-6 and C6-7 level. The orthopedic hardware seems to be in good position. There is a calcified disc bulge essentially at the C6-7 level. This indents the ventral aspect of the thecal sac and does produce mild central stenosis. There is also considerable narrowing of the neural foramen on the left at this level due to bony overgrowth. There are similar changes at C5-6. There is no sign of a high-grade central stenosis otherwise. There is no fracture or acute bony abnormality identified. There is no evidence for retropharyngeal edema. The lung apices are clear. The thyroid gland is generally unremarkable. IMPRESSION: 1. There is no evidence for an acute bony abnormality. 2. There are postsurgical changes at C5- 6 and C6-7. The orthopedic hardware seems to be in good position. There does appear to be spinal stenosis and narrowing of the neural foramen on the left at C6-7 and to a lesser degree at C5-6. Dictated on workstation # [id number] Reviewed: Reviewed by Me (radiology report reviewed by me) Diagonstic Imaging: Xray Plain Films/CT/US/NM/MRI: knee Comments FINDINGS: Three views of the knee. Marked soft tissue swelling is seen along the anterior aspect of the knee anterior to the patella, likely a large hematoma. There is a moderate joint effusion. No dislocation or acute fracture is appreciated. There is degenerative disease with narrowing in the medial joint compartment and patellofemoral joint space. Large peripherally ossified lesion in the posterior aspect of the knee, most likely a large loose body. IMPRESSION: 1. Large soft tissue hematoma along the anterior knee with a definite underlying fracture not appreciated. Densities along the superior pole of the patella, not mentioned above, appear to represent spurs and/or loose bodies with a fracture site felt to be less likely but difficult to exclude, given the abnormalities in the soft tissues. Followup recommended. 2. Joint effusion. 3. Degenerative findings as described above. Dictated by: Dictated on workstation # [id number] Reviewed: Reviewed by Me (radiology report reviewed by me) Diagonstic Imaging: Xray Plain Films/CT/US/NM/MRI: hand Comments FINDINGS: Three views of the left hand. Diffuse degenerative findings throughout the hand are noted. There are no fractures or dislocations. The soft tissues are grossly unremarkable. IMPRESSION: Diffuse degenerative disease with no superimposed acute abnormality appreciated. Dictated by: Dictated on workstation # [id number] Reviewed: Reviewed by Me (radiology report reviewed by me) Departure Communication (Admissions) Progress Notes Diagnostic findings discussed with the patient. Patient was given fentanyl 100 g IM 1 dose in the emergency department. Patient reports improvement in pain with medication. Plan for discharge to home. Impression Impression: Primary Impression: Minor head injury without loss of consciousness Qualified Codes: S09.90XA - Unspecified injury of head, initial encounter Additional Impressions: Nasal bone fracture Qualified Codes: S02.2XXA - Fracture of nasal bones, initial encounter for closed fracture Contusion of knee, right Qualified Codes: S80.01XA - Contusion of right knee, initial encounter Left thumb sprain Qualified Codes: S63.602A - Unspecified sprain of left thumb, initial encounter Laceration of lip Qualified Codes: S01.511A - Laceration without foreign body of lip, initial encounter Fall Qualified Codes: W19.XXXA - Unspecified fall, initial encounter Disposition: HOME, SELF-CARE Condition: Improved Departure-Patient Inst. Decision time for Depature: 17:01 Referrals: FELIZ LINCOLN MD (PCP/Family) Primary Care Physician Patient Instructions: Contusion (DC), Laceration Repair With Glue (DC), Minor Head Injury (DC) Add. Discharge Instructions: All discharge instructions reviewed with patient and/or family. Voiced understanding. Continue usual medications. Ice pack for 20 minute intervals as needed for pain. No heavy lifting, pushing, pulling, twisting, bending, climbing, or activities which may result and head injury for 7 days after headache resolves. Follow-up with your family practitioner for recheck as an outpatient. Return to the emergency department for worsened symptoms, headache , changes in vision, slurred speech, changes in behavior, shortness of air, chest pain, neck pain, back pain, numbness, weakness, vomiting, seizure, or any other concerns. Scripts Cefdinir (Cefdinir) 300 Mg Capsule 300 MG PO BID, #20 CAP 0 Refills Prov: GARY MIXON 03/04/17 GARY MIXON Mar 04, 2017 16:11
--- NOTE | 2017-03-04 16:20 | Diagnostic Imaging Report ---
INDICATION: Pain. EXAMINATION: Left hand, 03/04/2017. FINDINGS: Three views of the left hand. Diffuse degenerative findings throughout the hand are noted. There are no fractures or dislocations. The soft tissues are grossly unremarkable. IMPRESSION: Diffuse degenerative disease with no superimposed acute abnormality appreciated. Dictated by: Dictated on workstation # [id number]
--- NOTE | 2017-03-04 16:24 | Diagnostic Imaging Report ---
INDICATION: Fell down the stairs. Pain to the anterior aspect of the knee. EXAMINATION: Right knee, 03/04/2017. FINDINGS: Three views of the knee. Marked soft tissue swelling is seen along the anterior aspect of the knee anterior to the patella, likely a large hematoma. There is a moderate joint effusion. No dislocation or acute fracture is appreciated. There is degenerative disease with narrowing in the medial joint compartment and patellofemoral joint space. Large peripherally ossified lesion in the posterior aspect of the knee, most likely a large loose body. IMPRESSION: 1. Large soft tissue hematoma along the anterior knee with a definite underlying fracture not appreciated. Densities along the superior pole of the patella, not mentioned above, appear to represent spurs and/or loose bodies with a fracture site felt to be less likely but difficult to exclude, given the abnormalities in the soft tissues. Followup recommended. 2. Joint effusion. 3. Degenerative findings as described above. Dictated by: Dictated on workstation # [id number]
[2017-03-04] MEDS ORDERED: fentaNYL INJECTION 100 MCG/2 ML AMP IM STA (16:34)
--- NOTE | 2017-03-04 16:42 | Diagnostic Imaging Report ---
PROCEDURE: CT head, face and cervical spine without contrast. TECHNIQUE: Multiple contiguous axial images were obtained through the head, neck and facial bones without the use of intravenous contrast. Sagittal and coronal reformations through the cervical spine and facial bones were also performed. INDICATION: Fell, head face and neck pain. COMPARISON: There are no prior studies available for comparison. CT HEAD: There is no mass, shift of the midline or hemorrhage to suggest an acute intracranial abnormality. The ventricles are not abnormally dilated. There are vague areas of low density in the periventricular white matter, bilaterally. These findings are nonspecific but may be secondary to encephalomalacia from microvascular ischemia. Cortical atrophy is also seen. The degree of atrophy is consistent with the patient's age. The bone windows show no sign of a skull fracture or of a destructive lesion. However, there is soft tissue edema and hematoma formation over the left frontal bone. There may be a slight buckle fracture of the left nasal plate. The orbits are symmetrical and within normal limits. The right maxillary antrum, where visualized, is opacified. The sinuses are otherwise clear. IMPRESSION: 1. There is soft tissue edema and hematoma formation over the left frontal bone. There is no sign of a skull fracture and there is no acute intracranial abnormality noted. 2. There is a question of a fracture of the left nasal plate. CT of the maxillofacial bones is pending for further study. CT MAXILLOFACIAL: As suggested on the CT head exam, there is slight buckling of the left nasal plate. Most likely this is due to a nondisplaced fracture. The orbital rims, zygomatic arches and mandible are intact. There is slight irregularity of the lateral wall of the right maxillary antrum. This finding may be due to prior trauma as opposed to an acute abnormality. Clinical followup is recommended. As noted on the CT head exam, the right maxillary antrum is opacified. The antrum also seems to be hypoplastic. The sinuses are otherwise clear. IMPRESSION: 1. The findings do suggest a nondisplaced fracture of the left nasal plate. There is no acute bony abnormality noted otherwise. 2. There is severe sinusitis of the right maxillary antrum and the antrum seems to be hypoplastic. The slight irregularity of the lateral wall of the right maxillary antrum may also be a sequela of prior trauma as opposed to an acute injury. Clinical followup is recommended. CT CERVICAL SPINE: The reconstructed sagittal images show postsurgical changes at C5, C6 and C7. Specifically, there are orthopedic fixation screws obliquely traversing the anterior aspects of C5, C6 and C7. There are also interbody devices at the C5-6 and C6-7 level. The orthopedic hardware seems to be in good position. There is a calcified disc bulge essentially at the C6-7 level. This indents the ventral aspect of the thecal sac and does produce mild central stenosis. There is also considerable narrowing of the neural foramen on the left at this level due to bony overgrowth. There are similar but less severe changes at C5-6. There is no sign of a high-grade central stenosis otherwise. There is no fracture or acute bony abnormality identified. There is no evidence for retropharyngeal edema. The lung apices are clear. The thyroid gland is generally unremarkable. IMPRESSION: 1. There is no evidence for an acute bony abnormality. 2. There are postsurgical changes at C5-6 and C6-7. The orthopedic hardware seems to be in good position. There does appear to be spinal stenosis and narrowing of the neural foramen on the left at C6-7 and to a lesser degree at C5-6. Dictated by: Dictated on workstation # [id number]
[2017-03-04 17:27] VITALS: BP 139/114
[2017-03-04] MEDS ORDERED: CEFD300C3 PO (17:27)
== END 2017-03-04 17:27 | disposition home or self-care (01) ==
LOC: EDUNIT# 15:27 → ER 15:29
DX: S09.90XA Unspecified injury of head, initial encounter (principal); S02.2XXA Fracture of nasal bones, initial encounter for closed fracture; S01.511A Laceration without foreign body of lip, initial encounter; S63.602A Unspecified sprain of left thumb, initial encounter; S80.01XA Contusion of right knee, initial encounter; G47.30 Sleep apnea, unspecified; J43.9 Emphysema, unspecified; E78.00 Pure hypercholesterolemia, unspecified; I10 Essential (primary) hypertension; E11.40 Type 2 diabetes mellitus with diabetic neuropathy, unspecified; F32.9 Major depressive disorder, single episode, unspecified; F12.10 Cannabis abuse, uncomplicated; F17.210 Nicotine dependence, cigarettes, uncomplicated; Z87.59 Personal history of other complications of pregnancy, childbirth and the puerperium; Z87.19 Personal history of other diseases of the digestive system; Z82.49 Family history of ischemic heart disease and other diseases of the circulatory system; Z98.1 Arthrodesis status; W10.9XXA Fall (on) (from) unspecified stairs and steps, initial encounter; Y92.009 Unspecified place in unspecified non-institutional (private) residence as the place of occurrence of the external cause
CPT/HCPCS: 70450; 70486; 72125; 73130; 73562; 99284

== ENCOUNTER → 2018-03-30 | Outpatient (CLI) | payer MEDICAID ==
[~2018-03-30] MED LIST changes: -AMLO10TA2 PO; +AMLO10TA6 PO; +CEFD300C3 PO; -GEMF600T3 PO; +GEMF600T4 PO; +HYDR-4226 PO; -HYDR-757 PO; +METR-143 PO; +METR-197 PO; -METR250T32 PO; -METR500T21 PO; -OXYC-197 PO; +OXYC1TAB87 PO
--- NOTE | 2018-03-30 14:13 | Diagnostic Imaging Report ---
PROCEDURE: US Renal Bilateral. TECHNIQUE: Multiple real-time grayscale images were obtained over the kidneys in various projections bilaterally. INDICATION: Hyperlipidemia. The right kidney measures 10.8 x 5.4 x 5.5 cm and the left knee measures 11.6 x 5.3 x 4.3 cm. Cortical thickness and echogenicity appears normal. No calculi are seen. There is no hydronephrosis. There appears to be a cyst in the left kidney laterally measuring approximately 4.9 x 4.5 cm. Second smaller cyst medially measures 2.7 x 2.0 cm. The bladder is unremarkable. Right ureteral jet is unremarkable. Left ureteral jet was not visualized. IMPRESSION: Left renal cysts. No other significant abnormality is identified. Dictated by: Dictated on workstation # [id number]
--- NOTE | 2018-03-30 14:13 | Diagnostic Imaging Report ---
INDICATION: Hyperlipidemia. FINDINGS: Prevoid bladder volume is 96 mL. Bladder wall is normal in thickness. No mass is seen. No residual post void volume is detected. IMPRESSION: Unremarkable bladder ultrasound. Dictated by: Dictated on workstation # [id number]
== END ==
LOC: RAD 12:45
PROVIDERS: ATTEND Nurse Practitioner
DX: E78.5 Hyperlipidemia, unspecified (principal); N28.1 Cyst of kidney, acquired; E87.5 Hyperkalemia; E87.3 Alkalosis; E46 Unspecified protein-calorie malnutrition; E11.22 Type 2 diabetes mellitus with diabetic chronic kidney disease; I12.9 Hypertensive chronic kidney disease with stage 1 through stage 4 chronic kidney disease, or unspecified chronic kidney disease; N18.2 Chronic kidney disease, stage 2 (mild); E55.9 Vitamin D deficiency, unspecified; N25.81 Secondary hyperparathyroidism of renal origin
CPT/HCPCS: 76770; 76857

== ENCOUNTER 2018-05-12 13:01 | Outpatient (RCR) | payer MEDICAID ==
[~2018-05-12 13:01] MED LIST changes: -AMLO10TA6 PO; +AMLO10TA7 PO; -GEMF600T4 PO; +GEMF600T8 PO; +METR-145 PO; -METR-197 PO
== END 2018-07-20 | disposition home or self-care (01) ==
PROVIDERS: ATTEND Thoracic Surgery (Cardiothoracic Vascular Surgery)
DX: M54.2 Cervicalgia (principal)

== ENCOUNTER → 2018-11-15 | Outpatient (CLI) | payer MEDICAID ==
[~2018-11-15] MED LIST changes: +ATOR40TA70 PO; +BUPR150T7 PO; -CALC500T3 PO; +CALC500T64 PO; +CHOL5000 PO; -DULO60CA58 PO; +DULO60CA59 PO; +HYDR-3816 PO
--- NOTE | 2018-11-15 14:43 | Diagnostic Imaging Report ---
PROCEDURE: CT abdomen and pelvis without contrast. TECHNIQUE: Multiple contiguous axial images were obtained through the abdomen and pelvis without the use of intravenous contrast. Auto Exposure Controls were utilized during the CT exam to meet ALARA standards for radiation dose reduction. INDICATION: Abdominal pain. Patient has had prior hernia repair. COMPARISON: Correlation is made with prior CT from 01/09/2017. FINDINGS: The lung bases are clear. No discrete liver mass is identified. The gallbladder is unremarkable. No biliary duct dilatation is seen. The pancreas and spleen are unremarkable. No adrenal mass is identified. 10 mm nonobstructing right renal calculus is seen. Calculus located left renal pelvis measures 19 mm x 11 mm. Mild adjacent inflammatory stranding is seen. No definite ureteral calculi or ureteral dilatation is identified. Mass lower pole left kidney is stable in size and suggestive of a cyst. Aorta is calcified but nonaneurysmal. Midline ventral hernia containing bowel loops is again noted. This is similar to prior exam. Intra-abdominal bowel loops are non-dilated. No obstruction is seen. No definite evidence of strangulation is seen. There is no free fluid or fluid collection. There is no free air. There appear to be surgical changes at the rectosigmoid junction. Bladder is decompressed. IMPRESSION: 1. Bilateral renal calculi. Largest calculus is located in the left renal pelvis. There is some mild stranding adjacent to the renal pelvis and mild hydronephrosis. No ureteral calculi or ureteral dilatation are seen. 2. Midline ventral hernia containing bowel loops. No bowel obstruction is seen. Overall appearance is similar to prior CT from 2017. 3. No other significant abnormality is detected. Dictated by: Dictated on workstation # [id number]
== END ==
LOC: RAD 13:54
PROVIDERS: ATTEND Surgery
DX: N20.0 Calculus of kidney (principal); N13.30 Unspecified hydronephrosis; K43.9 Ventral hernia without obstruction or gangrene
CPT/HCPCS: 74176

== ENCOUNTER 2018-11-16 15:35 | Outpatient (CLI) | payer MEDICAID ==
[~2018-11-16] VITALS: Ht 160 cm; Wt 133.9 kg
[~2018-11-16 15:35] MED LIST changes: -ATOR40TA70 PO; -BUPR150T7 PO; -CHOL5000 PO; -HYDR-3816 PO
[2018-11-16] MEDS ORDERED: CHOL5000 PO (16:02)
[2018-11-16] MEDS ORDERED: BUPR150T7 PO (16:02)
[2018-11-16] MEDS ORDERED: ATOR40TA70 PO (16:02)
[2018-11-17] MEDS ORDERED: HYDR-3816 PO (10:32)
== END 2018-11-16 16:15 | disposition home or self-care (01) ==
LOC: PREOP 15:35
PROVIDERS: ATTEND Surgery
DX: Z01.818 Encounter for other preprocedural examination (principal)

== ENCOUNTER 2018-11-17 10:09 | Inpatient (IN) | payer MEDICAID ==
[~2018-11-17] VITALS: Ht 160 cm; Wt 133.9 kg
[2018-11-17] VITALS (12 sets, daily range): BP systolic 114–173; BP diastolic 74–106
[~2018-11-17 10:09] MED LIST changes: +ATOR40TA70 PO; +BUPR150T7 PO; +CHOL5000 PO
[2018-11-17] MEDS ORDERED: ROCURONIUM 10 MG/ML 5 ML SYRINGE IV ONE ×3 (10:10→13:07)
[2018-11-17] MEDS ORDERED: SUCCINYLCHOLINE INJ 100 MG/5 ML SYR INJ ONE (10:10)
[2018-11-17] MEDS ORDERED: MIDAZOLAM 5 MG/5 ML (VERSED) VIAL INJ ONE (10:10)
[2018-11-17] MEDS ORDERED: ACETAMINOPHEN 325 MG TABLET PO PRN (10:30)
[2018-11-17] MEDS ORDERED: morphine INJ 10 MG/ML 1ML (SYR OR VIAL) IVP PRN (10:30)
[2018-11-17] MEDS ORDERED: ONDANSETRON 4 MG/2 ML (SDV) Z0FRAN IVP PRN ×2 (10:30→15:00)
[2018-11-17] MEDS ORDERED: HYDROcodone/APAP 5 MG/325 MG (LORTAB) TAB PO ONE (10:30)
[2018-11-17] MEDS ORDERED: HYDR-3816 PO (10:32)
--- NOTE | 2018-11-17 10:33 | Discharge Inst-Surgical ---
D/C Lap Instructions-KIDO Reconcile Patient Problems Problems Reviewed?: Yes New, Converted, or Re-Newed RX: RX on Chart Follow Up Appt in 2 weeks Activity as tolerated No driving for 24 hours No driving while on pain medications Incentive Spirometry use every 2 hours while awake Regular Diet Symptoms to Report: Fever over 101 degree F, Nausea/Vomiting Infection Signs and Symptoms to report: Increased redness, Foul odor of wound, Increased drainage Bathing instructions: May shower Operative Area Clean/Dry; Keep incision clean/dry If any problems/questions: Contact your physician or go to Emergency Room SUSAN WIN APRN Nov 17, 2018 10:33
--- NOTE | 2018-11-17 10:35 | Progress Note-Pre Operative ---
Pre-Operative Progress Note H&P Reviewed The H&P was reviewed, patient examined and no changes noted. Date Seen by Provider: Nov 17, 2018 Time Seen by Provider: 10:34 Date H&P Reviewed: Nov 17, 2018 Time H&P Reviewed: 10:30 Pre-Operative Diagnosis: recurrent symptomatic ventral abdominal incisional hernia SUSAN WIN APRN Nov 17, 2018 10:35
[2018-11-17] MEDS ORDERED: BUP/EPI 0.5% 1:200,000 (MARCAINE) 10ML VIAL IJ ONE (10:54)
--- NOTE | 2018-11-17 11:22 | Progress Note-Pre Operative ---
Pre-Operative Progress Note H&P Reviewed The H&P was reviewed, patient examined and no changes noted. Date Seen by Provider: Nov 17, 2018 Time Seen by Provider: 11:20 Date H&P Reviewed: Nov 17, 2018 Time H&P Reviewed: 11:30 Pre-Operative Diagnosis: recurrent ventral abdominal incisional hernia WENDI ELIZABETH MD Nov 17, 2018 11:22
[2018-11-17] MEDS ORDERED: RT-ALBUTEROL SULF 2.5 MG/3 ML PRE-MIX VIAL ONE (11:29)
[2018-11-17] MEDS ORDERED: proPOfol 200 MG/20 ML (DIPRIVAN) VIAL IV ONE (11:30)
[2018-11-17] MEDS ORDERED: LIDOCAINE PF 2% 5 ML (XYLOCAINE) VIAL ONE (11:30)
[2018-11-17] MEDS ORDERED: SEVOFLURANE (ULTANE) 15 ML INHAL SOLN ONE ×4 (11:30→13:59)
[2018-11-17] MEDS ORDERED: ONDANSETRON 4 MG/2 ML (SDV) Z0FRAN ONE (11:30)
[2018-11-17] MEDS ORDERED: fentaNYL INJECTION 100 MCG/2 ML AMP ONE (11:31)
[2018-11-17] MEDS ORDERED: MIDAZOLAM 2 MG/2 ML (VERSED) VIAL ONE (11:31)
[2018-11-17] MEDS ORDERED: ceFAZolin 2 GM/50 ML NS 50 ML ONE (11:43)
[2018-11-17] MEDS ORDERED: ceFAZolin 2 GM/50 ML NS 50 ML IV ONE (11:45)
[2018-11-17] MEDS ORDERED: PHENYLEPHRINE 100 MCG/ML 10 ML (ANESTHESIA) SYR ONE (12:25)
[2018-11-17] MEDS: LACTATED RINGERS 1,000 ML IV PRN ×2 (12:35→13:22)
[2018-11-17] MEDS ORDERED: NEOSTIGMINE 3 MG/3 ML VIAL ONE (13:50)
[2018-11-17] MEDS ORDERED: GLYCOPYRROLATE 0.2 MG/ML (ROBINUL) 2 ML VIAL ONE (13:50)
--- NOTE | 2018-11-17 14:24 | Progress Note-Post Operative ---
Post-Operative Progess Note Surgeon (s)/Granulating Blender (s) Surgeon WENDI ELIZABETH MD Granulating Blender: joyce oliveira STORE ASSISTANT Pre-Operative Diagnosis recurrent ventral abdominal incisional hernia Post-Operative Diagnosis same, reducible with defect 6x3cm. Procedure & Operative Findings Date of Procedure 11/17/18 Procedure Performed/Findings open repair recurrent ventral abdominal incisional hernia with mesh. Anesthesia Type GET Estimated Blood Loss Estimated blood loss (mL): minimal Specimens/Packing Specimens Removed none WENDI ELIZABETH MD Nov 17, 2018 14:24
[2018-11-17] MEDS ORDERED: SUGAMMADEX 500 MG/5 ML VIAL (BRIDION) IV ONE (14:30)
[2018-11-17] MEDS ORDERED: PROMETHAZINE INJ 25 MG/ML (PHENERGAN) AMP IVP ONE (15:00)
[2018-11-17] MEDS ORDERED: MEPERIDINE (DEMEROL) INJ 50 MG/ML IVP ONE (15:00)
[2018-11-17] MEDS ORDERED: morphine INJ 10 MG/ML 1ML (SYR OR VIAL) IVP ONE (15:00)
[2018-11-17] MEDS ORDERED: HYDROcodone/APAP 5 MG/325 MG (LORTAB) TAB ONE (15:52)
--- NOTE | 2018-11-17 16:53 | NUR ---
report called to JOHNIE Schneider on 4th floor.
--- NOTE | 2018-11-17 17:30 | NUR ---
PATIENT TO FLOOR AT THIS TIME VIA W/C ACCOMPANIED BY JOHNIE CHAUDHRY. THIS RN WILL ASSUME CARE OF THIS PATIENT AT THIS TIME.
--- NOTE | 2018-11-17 17:30 | NUR ---
pt to 4th via w/c.
[2018-11-17] MEDS: HYDROcodone/APAP 5 MG/325 MG (LORTAB) TAB PO PRN ×2 (19:40→23:43)
[2018-11-17] MEDS: CYCLOBENZAPRINE 10 MG (FLEXERIL) TAB PO PRN (20:19)
--- OUTSIDE RECORDS SUMMARY | 2018-11-17 23:25 | XMS REPORT ---
Author Author FELIZ LINCOLN [facility] Address [address] [place] [address] Care Team Providers Care Weed Science Research Technician Name Role Phone FELIZ LINCOLN Unavailable PROBLEMS Type Condition ICD9-CM Code FPS24-DT Code Onset Dates Condition Status SNOMED Code Problem GI bleed K92.2 Active 98177109 Problem Clostridium difficile colitis A04.72 Active 917425803 Problem Cigarette nicotine dependence without complication F17.210 Active 265319112 Problem DDD (degenerative disc disease), cervical M50.30 Active 731049277 Problem Bilateral low back pain without sciatica M54.5 Active 425829810 Problem COPD with emphysema J43.9 Active 57802606 Problem Chronic right shoulder pain M25.511 Active 524106958 Problem Morbid obesity E66.01 Active 613194865 Problem Anemia D64.9 Active 669326192 Problem Depression F32.9 Active 73652879 Problem Bipolar 2 disorder F31.81 Active 41802515 Problem Type 2 diabetes mellitus with other specified complication E11.69 Active 73655158038925 Problem Hypoxia R09.02 Active 398416762 Problem Diverticulitis K57.92 Active 95379333 Problem Essential hypertension I10 Active 56923329 Problem Chronic pain G89.29 Active 32674257 Problem Proteinuria R80.9 Active 49655936 ALLERGIES No Information ENCOUNTERS Encounter Location Date Diagnosis [facility] [address] [place] [address] August, Bipolar 2 disorder F31.81 ; Morbid obesity E66.01 ; Essential hypertension I10 and Type 2 diabetes mellitus with other specified complication E11.69 [facility] [address] [place] [address] August, [address] [address] August, Type 2 diabetes mellitus with other specified complication E11.69 ; Essential hypertension I10 and Morbid obesity E66.[address] [address] Jul, [address] [address] Jul, [address] [address] Jun, [address] [address] May, Essential hypertension I10 ; Hypoxia R09.02 ; COPD with emphysema J43.9 ; Cigarette nicotine dependence without complication F17.210 ; Sebaceous cyst L72.3 and BMI 50.0-59.9, adult Z68.[address] [address] May, [address] [address] May, IMMUNIZATIONS No Known Immunizations SOCIAL HISTORY Never Assessed REASON FOR VISIT PERCOCET PLAN OF CARE VITAL SIGNS MEDICATIONS Medication Instructions Dosage Frequency Start Date End Date Duration Status Percocet 10-325 MG Orally 2 times a day 1 tablet as needed 12h Jun, 28 days Active RESULTS No Results PROCEDURES No Known procedures INSTRUCTIONS MEDICATIONS ADMINISTERED No Known Medications MEDICAL (GENERAL) HISTORY Type Description Date Medical History Anemia Medical History Bipolar 2 disorder Medical History Clostridium difficile colitis Medical History Bilateral low back pain without sciatica Medical History Chronic right shoulder pain Medical History Chronic pain Medical History Cigarette nicotine dependence without complication Medical History COPD with emphysema Medical History DDD (degenerative disc disease), cervical Medical History Depression Medical History Diverticulitis Medical History Type 2 diabetes mellitus with other specified complication Medical History Essential hypertension Medical History GI bleed Medical History Morbid obesity Medical History Hypoxia Medical History Proteinuria Medical History Bilateral low back pain without sciatica Surgical History tonsillectomy Surgical History appendectomy Surgical History section Surgical History tubal ligation Surgical History colon resection Surgical History hysterectomy Surgical History cervical laminectomy
--- OUTSIDE RECORDS SUMMARY | 2018-11-17 23:25 | XMS REPORT | Clinical Summary ---
Author Author [facility] Organization [facility] Address Unknown Phone Unavailable Care Team Providers Care Senior Php Developer Name Role Phone Self, Cassius TOBIN PCP Source Comments Some departments are not documenting in the electronic medical record. If you d o not see the information that you expected, contact Release of Information in [facility] Health Information Management department at [phone] for further assistan ce in locating additional records.[facility] Allergies Not on File Medications Not on file Active Problems Not on file Social History Date Tobacco Use Types Packs/Day Years Used Never Assessed Sex Assigned at Date Recorded Not on file Industry Job Start Date Occupation Not on file Not on file Not on file Travel End Travel History Travel Start No recent travel history available. Last Filed Vital Signs Not on file Plan of Treatment Health Maintenance Due Date Last Done Comments HEPATITIS C SCREENING 1954 PHYSICAL (COMPREHENSIVE) 1961 EXAM HIV SCREENING 1969 DTAP/TDAP VACCINES ( - 1972 Tdap) CERVICAL CANCER SCREENING 1984 BREAST CANCER SCREENING 1994 COLORECTAL CANCER 2004 SCREENING SHINGLES RECOMBINANT 2004 VACCINE (1 of 2) INFLUENZA VACCINE 01/10/2019 Results Not on filefrom Last 3 Months
--- OUTSIDE RECORDS SUMMARY | 2018-11-17 23:27 | XMS REPORT | Continuity of Care Document ---
Author Organization Unknown Address Unknown Phone Unavailable Allergies Active Description Code Type Severity Reaction Onset Reported/Identified Relationship to Patient Clinical Status Yes No Known Drug Allergies [id number] Drug Allergy Unknown N/A 11/16/2018 Medications There is no data. 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 03/17/2016 GARY DE LEON [...] 03/21/2016 GARY DE LEON Ot Z79.899 OTHER JAIL (CURRENT) DRUG THERAPY 03/21/2016 GARY DE LEON Ot Z98.1 ARTHRODESIS STATUS 10/17/2016 GARY DE LEON Ot E11.40 TYPE 2 DIABETES MELLITUS WITH DIABETIC N 10/17/2016 GARY DE LEON Ot E78.00 PURE HYPERCHOLESTEROLEMIA, UNSPECIFIED 10/17/2016 GARY DE LEON Ot F32.9 MAJOR DEPRESSIVE DISORDER, SINGLE EPISOD 10/17/2016 GARY DE LEON Ot G47.30 SLEEP APNEA, UNSPECIFIED 10/17/2016 GARY DE LEON Ot I10 ESSENTIAL (PRIMARY) HYPERTENSION 10/17/2016 GARY DE LEON Ot J43.9 EMPHYSEMA, UNSPECIFIED 10/17/2016 GARY DE LEON Ot L03.115 CELLULITIS OF RIGHT LOWER LIMB 10/17/2016 GARY DE LEON Ot M19.90 UNSPECIFIED OSTEOARTHRITIS, UNSPECIFIED 10/17/2016 GARY DE LEON Ot M79.671 PAIN IN RIGHT FOOT 10/17/2016 GARY DE LEON Ot S91.331A PUNCTURE WOUND WITHOUT FOREIGN BODY, RIG 10/17/2016 GARY DE LEON Ot W26.9XXA CONTACT WITH UNSPECIFIED SHARP OBJECT(S) 10/17/2016 GARY DE LEON Ot Y92.[address] IN [facility] NON[facility] (PRIVATE 10/17/2016 GARY DE LEON Ot Z98.1 ARTHRODESIS STATUS 10/19/2016 JASON PALMER APRN Ot E11.9 TYPE 2 DIABETES MELLITUS WITHOUT COMPLIC 10/19/2016 JASON PALMER APRN Ot E78.00 PURE HYPERCHOLESTEROLEMIA, UNSPECIFIED 10/19/2016 JASON PALMER APRN Ot F17.210 NICOTINE DEPENDENCE, CIGARETTES, UNCOMPL 10/19/2016 JASON PALMER APRN Ot F32.9 MAJOR DEPRESSIVE DISORDER, SINGLE EPISOD 10/19/2016 JASON PALMER APRN Ot G62.9 POLYNEUROPATHY, UNSPECIFIED 10/19/2016 JASON PALMER APRN Ot I10 ESSENTIAL (PRIMARY) HYPERTENSION 10/19/2016 JASON PALMER APRN Ot J43.9 EMPHYSEMA, UNSPECIFIED 10/19/2016 JASON PALMER APRN Ot K52.9 NONINFECTIVE GASTROENTERITIS AND COLITIS 10/19/2016 JASON PALMER APRN Ot M48.00 SPINAL STENOSIS, SITE UNSPECIFIED 10/19/2016 JASON PALMER APRN Ot S91.311A LACERATION WITHOUT FOREIGN BODY, RIGHT F 10/19/2016 JASON PALMER APRN Ot S91.341A PUNCTURE WOUND WITH FOREIGN BODY, RIGHT 10/19/2016 JASON PALMER APRN Ot T79.8XXA OTHER EARLY COMPLICATIONS OF TRAUMA, INI 10/19/2016 JASON PALMER APRN Ot Z98.890 OTHER SPECIFIED POSTPROCEDURAL STATES 10/21/2016 JASON PALMER APRN Ot E11.9 TYPE 2 DIABETES MELLITUS WITHOUT COMPLIC 10/21/2016 JASON PALMER APRN Ot E78.00 PURE HYPERCHOLESTEROLEMIA, UNSPECIFIED 10/21/2016 JASON PALMER APRN Ot F17.210 NICOTINE DEPENDENCE, CIGARETTES, UNCOMPL 10/21/2016 JASON PALMER APRN Ot F32.9 MAJOR DEPRESSIVE DISORDER, SINGLE EPISOD 10/21/2016 JASON PALMER APRN Ot G62.9 POLYNEUROPATHY, UNSPECIFIED 10/21/2016 JASON PALMER APRN Ot I10 ESSENTIAL (PRIMARY) HYPERTENSION 10/21/2016 JASON PALMER APRN Ot J43.9 EMPHYSEMA, UNSPECIFIED 10/21/2016 JASON PALMER APRN Ot K52.9 NONINFECTIVE GASTROENTERITIS AND COLITIS 10/21/2016 JASON PALMER APRN Ot M48.00 SPINAL STENOSIS, SITE UNSPECIFIED 10/21/2016 JASON PALMER APRN Ot S91.341A PUNCTURE WOUND WITH FOREIGN BODY, RIGHT 10/21/2016 JASON PALMER APRN Ot T79.8XXA OTHER EARLY COMPLICATIONS OF TRAUMA, INI 10/21/2016 JASON PALMER APRN Ot Z98.890 OTHER SPECIFIED POSTPROCEDURAL STATES 11/23/2016 JASON PALMER APRN Ot E11.40 TYPE 2 DIABETES MELLITUS WITH DIABETIC N 11/23/2016 JASON PALMER APRN Ot E78.00 PURE HYPERCHOLESTEROLEMIA, UNSPECIFIED 11/23/2016 JASON PALMER APRN Ot F17.210 NICOTINE DEPENDENCE, CIGARETTES, UNCOMPL 11/23/2016 JASON PALMER APRN Ot F32.9 MAJOR DEPRESSIVE DISORDER, SINGLE EPISOD 11/23/2016 JASON PALMER APRN Ot G47.30 SLEEP APNEA, UNSPECIFIED 11/23/2016 JASON PALMER APRN Ot G89.29 OTHER CHRONIC PAIN 11/23/2016 JASON PALMER APRN Ot I10 ESSENTIAL (PRIMARY) HYPERTENSION 11/23/2016 JASON PALMER APRN Ot J43.9 EMPHYSEMA, UNSPECIFIED 11/23/2016 JASON PALMER APRN Ot K57.92 DVTRCLI OF INTEST, PART UNSP, W/O PERF O 11/23/2016 JASON PALMER APRN Ot M48.02 SPINAL STENOSIS, CERVICAL REGION 11/23/2016 JASON PALMER APRN Ot M54.9 DORSALGIA, UNSPECIFIED 11/23/2016 JASON PALMER APRN Ot R19.7 DIARRHEA, UNSPECIFIED 11/23/2016 JASON PALMER APRN Ot Z82.49 FAMILY HX OF ISCHEM HEART DIS AND OTH DI 11/23/2016 JASON PALMER APRN Ot Z87.59 PERSONAL HISTORY OF COMP OF PREG, CHLDBR 11/23/2016 JASON PALMER APRN Ot Z98.1 ARTHRODESIS STATUS 11/27/2016 JASON PALMER APRN Ot K57.92 DVTRCLI OF INTEST, PART UNSP, W/O PERF O 11/30/2016 JASON PALMER APRN Ot E11.40 TYPE 2 DIABETES MELLITUS WITH DIABETIC N 11/30/2016 JASON PALMER APRN Ot E78.00 PURE HYPERCHOLESTEROLEMIA, UNSPECIFIED 11/30/2016 JASON PALMER APRN Ot F17.210 NICOTINE DEPENDENCE, CIGARETTES, UNCOMPL 11/30/2016 JASON PALMER APRN Ot F32.9 MAJOR DEPRESSIVE DISORDER, SINGLE EPISOD 11/30/2016 JASON PALMER APRN Ot G47.30 SLEEP APNEA, UNSPECIFIED 11/30/2016 JASON PALMER APRN Ot G89.29 OTHER CHRONIC PAIN 11/30/2016 JASON PALMER APRN Ot I10 ESSENTIAL (PRIMARY) HYPERTENSION 11/30/2016 JASON PALMER APRN Ot J43.9 EMPHYSEMA, UNSPECIFIED 11/30/2016 JASON PALMER APRN Ot K57.92 DVTRCLI OF INTEST, PART UNSP, W/O PERF O 11/30/2016 JASON PALMER APRN Ot M48.02 SPINAL STENOSIS, CERVICAL REGION 11/30/2016 JASON PALMER APRN Ot M54.9 DORSALGIA, UNSPECIFIED 11/30/2016 JASON PALMER APRN Ot R19.7 DIARRHEA, UNSPECIFIED 11/30/2016 JASON PALMER APRN Ot Z82.49 FAMILY HX OF ISCHEM HEART DIS AND OTH DI 11/30/2016 JASON PALMER APRN Ot Z87.59 PERSONAL HISTORY OF COMP OF PREG, CHLDBR 11/30/2016 JASON PALMER APRN Ot Z98.1 ARTHRODESIS STATUS 12/10/2016 ALEIDA LICEA DO Ot A04.7 ENTEROCOLITIS DUE TO CLOSTRIDIUM DIFFICI 12/10/2016 ALEIDA LICEA DO Ot A41.9 SEPSIS, UNSPECIFIED ORGANISM 12/10/2016 ALEIDA LICEA DO Ot E11.9 TYPE 2 DIABETES MELLITUS WITHOUT COMPLIC 12/10/2016 ALEIDA LICEA DO Ot E78.00 PURE HYPERCHOLESTEROLEMIA, UNSPECIFIED 12/10/2016 ALEIDA LICEA DO Ot F17.210 NICOTINE DEPENDENCE, CIGARETTES, UNCOMPL 12/10/2016 ALEIDA LICEA DO Ot G47.33 OBSTRUCTIVE SLEEP APNEA (ADULT) (PEDIATR 12/10/2016 ALEIDA LICEA DO Ot G57.91 UNSPECIFIED MONONEUROPATHY OF RIGHT LOWE 12/10/2016 ALEIDA LICEA DO Ot I12.9 HYPERTENSIVE CHRONIC KIDNEY DISEASE W ST 12/10/2016 ALEIDA LICEA DO Ot J44.9 CHRONIC OBSTRUCTIVE PULMONARY DISEASE, U 12/10/2016 ALEIDA LICEA DO Ot K57.33 DVTRCLI OF LG INT W/O PERFORATION OR ABS 12/10/2016 LICEA DO, ALEIDA Ot M79.7 FIBROMYALGIA 12/10/2016 LICEA DO, ALEIDA Ot N18.2 CHRONIC KIDNEY DISEASE, STAGE 2 (MILD) 12/10/2016 LICEA DO, ALEIDA Ot Z99.81 DEPENDENCE ON SUPPLEMENTAL OXYGEN 12/15/2016 LICEA DO, ALEIDA Ot A04.7 ENTEROCOLITIS DUE TO CLOSTRIDIUM DIFFICI 12/15/2016 LICEA DO, ALEIDA Ot A41.9 SEPSIS, UNSPECIFIED ORGANISM 12/15/2016 LICEA DO, ALEIDA Ot E11.9 TYPE 2 DIABETES MELLITUS WITHOUT COMPLIC 12/15/2016 LICEA DO, ALEIDA Ot E78.00 PURE HYPERCHOLESTEROLEMIA, UNSPECIFIED 12/15/2016 LICEA DO, ALEIDA Ot F17.210 NICOTINE DEPENDENCE, CIGARETTES, UNCOMPL 12/15/2016 LICEA DO, ALEIDA Ot G47.33 OBSTRUCTIVE SLEEP APNEA (ADULT) (PEDIATR 12/15/2016 LICEA DO, ALEIDA Ot G57.91 UNSPECIFIED MONONEUROPATHY OF RIGHT LOWE 12/15/2016 LICEA DO, ALEIDA Ot I12.9 HYPERTENSIVE CHRONIC KIDNEY DISEASE W ST 12/15/2016 LICEA DO, ALEIDA Ot J44.9 CHRONIC OBSTRUCTIVE PULMONARY DISEASE, U 12/15/2016 LICEA DO, ALEIDA Ot K57.33 DVTRCLI OF LG INT W/O PERFORATION OR ABS 12/15/2016 LICEA DO, ALEIDA Ot M79.7 FIBROMYALGIA 12/15/2016 LICEA DO, ALEIDA Ot N18.2 CHRONIC KIDNEY DISEASE, STAGE 2 (MILD) 12/15/2016 LICEA DO, ALEIDA Ot Z99.81 DEPENDENCE ON SUPPLEMENTAL OXYGEN 12/15/2016 LICEA DO, ALEIDA Ot A04.7 ENTEROCOLITIS DUE TO CLOSTRIDIUM DIFFICI 12/15/2016 LICEA DO, ALEIDA Ot A41.9 SEPSIS, UNSPECIFIED ORGANISM 12/15/2016 LICEA DO, ALEIDA Ot E11.9 TYPE 2 DIABETES MELLITUS WITHOUT COMPLIC 12/15/2016 LICEA DO, ALEIDA Ot E78.00 PURE HYPERCHOLESTEROLEMIA, UNSPECIFIED 12/15/2016 LICEA DO, ALEIDA Ot F17.210 NICOTINE DEPENDENCE, CIGARETTES, UNCOMPL 12/15/2016 LICEA DO, ALEIDA Ot G47.33 OBSTRUCTIVE SLEEP APNEA (ADULT) (PEDIATR 12/15/2016 LICEA DO, ALEIDA Ot G57.91 UNSPECIFIED MONONEUROPATHY OF RIGHT LOWE 12/15/2016 LICEA DO, ALEIDA Ot I12.9 HYPERTENSIVE CHRONIC KIDNEY DISEASE W ST 12/15/2016 LICEA DO ALEIDA Ot J44.9 CHRONIC OBSTRUCTIVE PULMONARY DISEASE, U 12/15/2016 LICEA DO, ALEIDA Ot K57.33 DVTRCLI OF LG INT W/O PERFORATION OR ABS 12/15/2016 LCIEA DO ALEIDA Ot M79.7 FIBROMYALGIA 12/15/2016 LICEA DO ALEIDA Ot N18.2 CHRONIC KIDNEY DISEASE, STAGE 2 (MILD) 12/15/2016 LICEA DO, ALEIDA Ot Z99.81 DEPENDENCE ON SUPPLEMENTAL OXYGEN 12/16/2016 LICEA DO, ALEIDA Ot A04.7 ENTEROCOLITIS DUE TO CLOSTRIDIUM DIFFICI 12/16/2016 LICEA DO, ALEIDA Ot A41.9 SEPSIS, UNSPECIFIED ORGANISM 12/16/2016 LICEA DO, ALEIDA Ot E11.9 TYPE 2 DIABETES MELLITUS WITHOUT COMPLIC 12/16/2016 ANUJA DO ALEIDA Ot E78.00 PURE HYPERCHOLESTEROLEMIA, UNSPECIFIED 12/16/2016 LICEA DO, ALEIDA Ot F17.210 NICOTINE DEPENDENCE, CIGARETTES, UNCOMPL 12/16/2016 LICEA DO, ALEIDA Ot G47.33 OBSTRUCTIVE SLEEP APNEA (ADULT) (PEDIATR 12/16/2016 LICEA DO ALEIDA Ot G57.91 UNSPECIFIED MONONEUROPATHY OF RIGHT LOWE 12/16/2016 LICEA DO ALEIDA Ot I12.9 HYPERTENSIVE CHRONIC KIDNEY DISEASE W ST 12/16/2016 LICEA DO ALEIDA Ot J44.9 CHRONIC OBSTRUCTIVE PULMONARY DISEASE, U 12/16/2016 LICEA DO, ALEIDA Ot K57.33 DVTRCLI OF LG INT W/O PERFORATION OR ABS 12/16/2016 LICEA DO, ALEIDA Ot M79.7 FIBROMYALGIA 12/16/2016 LICEA DO, ALEIDA Ot N18.2 CHRONIC KIDNEY DISEASE, STAGE 2 (MILD) 12/16/2016 LICEA DO, ALEIDA Ot Z99.81 DEPENDENCE ON SUPPLEMENTAL OXYGEN 12/16/2016 LICEA DO, ALEIDA Ot A04.7 ENTEROCOLITIS DUE TO CLOSTRIDIUM DIFFICI 12/16/2016 LICEA DO ALEIDA Ot A41.9 SEPSIS, UNSPECIFIED ORGANISM 12/16/2016 LICEA DO, ALEIDA Ot E11.9 TYPE 2 DIABETES MELLITUS WITHOUT COMPLIC 12/16/2016 LICEA DO ALEIDA Ot E78.00 PURE HYPERCHOLESTEROLEMIA, UNSPECIFIED 12/16/2016 LICEA DO ALEIDA Ot F17.210 NICOTINE DEPENDENCE, CIGARETTES, UNCOMPL 12/16/2016 LICEA DO ALEIDA Ot G47.33 OBSTRUCTIVE SLEEP APNEA (ADULT) (PEDIATR 12/16/2016 LICEA DO ALEIDA Ot G57.91 UNSPECIFIED MONONEUROPATHY OF RIGHT LOWE 12/16/2016 LICEA DO ALEIDA Ot I12.9 HYPERTENSIVE CHRONIC KIDNEY DISEASE W ST 12/16/2016 LICEA DO ALEIDA Ot J44.9 CHRONIC OBSTRUCTIVE PULMONARY DISEASE, U 12/16/2016 LICEA DO ALEIDA Ot K57.33 DVTRCLI OF LG INT W/O PERFORATION OR ABS 12/16/2016 ANUJA GUZMAN ALEIDA Ot M79.7 FIBROMYALGIA 12/16/2016 LICEARONI GUZMAN ALEIDA Ot N18.2 CHRONIC KIDNEY DISEASE, STAGE 2 (MILD) 12/16/2016 ANUJA GUZMAN ALEIDA Ot Z99.81 DEPENDENCE ON SUPPLEMENTAL OXYGEN 01/09/2017 MARVIN CORREIA MD Ot E11.40 TYPE 2 DIABETES MELLITUS WITH DIABETIC N 01/09/2017 MARVIN CORREIA MD Ot E78.00 PURE HYPERCHOLESTEROLEMIA, UNSPECIFIED 01/09/2017 MARVIN CORREIA MD Ot F17.210 NICOTINE DEPENDENCE, CIGARETTES, UNCOMPL 01/09/2017 MARVIN CORREIA MD Ot F32.9 MAJOR DEPRESSIVE DISORDER, SINGLE EPISOD 01/09/2017 MARVIN CORREIA MD Ot G47.30 SLEEP APNEA, UNSPECIFIED 01/09/2017 MARVIN CORREIA MD Ot I10 ESSENTIAL (PRIMARY) HYPERTENSION 01/09/2017 MARVIN CORREIA MD Ot J43.9 EMPHYSEMA, UNSPECIFIED 01/09/2017 MARVIN CORREIA MD Ot K57.32 DVTRCLI OF LG INT W/O PERFORATION OR ABS 01/09/2017 MARVIN CORREIA MD Ot M47.9 SPONDYLOSIS, UNSPECIFIED 01/09/2017 MARVIN CORREIA MD Ot R10.84 GENERALIZED ABDOMINAL PAIN 01/09/2017 MARVIN CORREIA MD Ot Z87.59 PERSONAL HISTORY OF COMP OF PREG, CHLDBR 03/04/2017 GARY DE LEON Ot E11.40 TYPE 2 DIABETES MELLITUS WITH DIABETIC N 03/04/2017 GARY DE LEON Ot E78.00 PURE HYPERCHOLESTEROLEMIA, UNSPECIFIED 03/04/2017 GARY DE LEON Ot F12.10 CANNABIS ABUSE, UNCOMPLICATED 03/04/2017 GARY DE LEON Ot F17.210 NICOTINE DEPENDENCE, CIGARETTES, UNCOMPL 03/04/2017 GARY DE LEON Ot F32.9 MAJOR DEPRESSIVE DISORDER, SINGLE EPISOD 03/04/2017 GARY DE LEON Ot G47.30 SLEEP APNEA, UNSPECIFIED 03/04/2017 GARY DE LEON Ot I10 ESSENTIAL (PRIMARY) HYPERTENSION 03/04/2017 GARY DE LEON Ot J43.9 EMPHYSEMA, UNSPECIFIED 03/04/2017 GARY DE LEON Ot S01.511A LACERATION WITHOUT FOREIGN BODY OF LIP, 03/04/2017 GARY DE LEON Ot S02.2XXA FRACTURE OF NASAL BONES, INIT ENCNTR FOR 03/04/2017 GARY DE LEON Ot S09.90XA UNSPECIFIED INJURY OF HEAD, INITIAL ENCO 03/04/2017 GARY DE LEON Ot S63.602A UNSPECIFIED SPRAIN OF LEFT THUMB, INITIA 03/04/2017 GARY DE LEON Ot S80.01XA CONTUSION OF RIGHT KNEE, INITIAL ENCOUNT 03/04/2017 GARY DE LEON Ot W10.9XXA FALL (ON) (FROM) UNSPECIFIED STAIRS AND 03/04/2017 GARY DE LEON Ot Y92.[address] [facility] [address] [facility] 03/04/2017 GARY DE LEON Ot Z82.49 FAMILY HX OF ISCHEM HEART DIS AND OTH DI 03/04/2017 GARY DE LEON Ot Z87.19 PERSONAL HISTORY OF OTHER DISEASES OF TH 03/04/2017 GARY DE LEON Ot Z87.59 PERSONAL HISTORY OF COMP OF PREG, CHLDBR 03/04/2017 GARY DE LEON Ot Z98.1 ARTHRODESIS STATUS 03/08/2017 GARY DE LEON Ot E11.40 TYPE 2 DIABETES MELLITUS WITH DIABETIC N 03/08/2017 GARY DE LEON Ot E78.00 PURE HYPERCHOLESTEROLEMIA, UNSPECIFIED 03/08/2017 GARY DE LEON Ot F12.10 CANNABIS ABUSE, UNCOMPLICATED 03/08/2017 GARY DE LEON Ot F17.210 NICOTINE DEPENDENCE, CIGARETTES, UNCOMPL 03/08/2017 GARY DE LEON Ot F32.9 MAJOR DEPRESSIVE DISORDER, SINGLE EPISOD 03/08/2017 GARY DE LEON Ot G47.30 SLEEP APNEA, UNSPECIFIED 03/08/2017 GARY DE LEON Ot I10 ESSENTIAL (PRIMARY) HYPERTENSION 03/08/2017 GARY DE LEON Ot J43.9 EMPHYSEMA, UNSPECIFIED 03/08/2017 GARY DE LEON Ot S01.511A LACERATION WITHOUT FOREIGN BODY OF LIP, 03/08/2017 GARY DE LEON Ot S02.2XXA FRACTURE OF NASAL BONES, INIT ENCNTR FOR 03/08/2017 GARY DE LEON Ot S09.90XA UNSPECIFIED INJURY OF HEAD, INITIAL ENCO 03/08/2017 GARY DE LEON Ot S63.602A UNSPECIFIED SPRAIN OF LEFT THUMB, INITIA 03/08/2017 GARY DE LEON Ot S80.01XA CONTUSION OF RIGHT KNEE, INITIAL ENCOUNT 03/08/2017 GARY DE LEON Ot W10.9XXA FALL (ON) (FROM) UNSPECIFIED STAIRS AND 03/08/2017 GARY DE LEON Ot Y92.[address] [facility] [address] [facility] ([facility] 03/08/2017 GARY DE LEON Ot Z82.49 FAMILY HX OF ISCHEM HEART DIS AND OTH DI 03/08/2017 GARY DE LEON Ot Z87.19 PERSONAL HISTORY OF OTHER DISEASES OF TH 03/08/2017 GARY DE LEON Ot Z87.59 PERSONAL HISTORY OF COMP OF PREG, CHLDBR 03/08/2017 GARY DE LEON Ot Z98.1 ARTHRODESIS STATUS 03/11/2017 GARY DE LEON Ot E11.40 TYPE 2 DIABETES MELLITUS WITH DIABETIC N 03/11/2017 GARY DE LEON Ot E78.00 PURE HYPERCHOLESTEROLEMIA, UNSPECIFIED 03/11/2017 APURVA PA, GARY L Ot F12.10 CANNABIS ABUSE, UNCOMPLICATED 03/11/2017 GARY DE LEON Ot F17.210 NICOTINE DEPENDENCE, CIGARETTES, UNCOMPL 03/11/2017 GARY DE LEON Ot F32.9 MAJOR DEPRESSIVE DISORDER, SINGLE EPISOD 03/11/2017 AGRY DE LEON Ot G47.30 SLEEP APNEA, UNSPECIFIED 03/11/2017 GARY DE LEON Ot I10 ESSENTIAL (PRIMARY) HYPERTENSION 03/11/2017 GARY DE LEON Ot J43.9 EMPHYSEMA, UNSPECIFIED 03/11/2017 GARY DE LEON Ot S01.511A LACERATION WITHOUT FOREIGN BODY OF LIP, 03/11/2017 GARY DE LEON Ot S02.2XXA FRACTURE OF NASAL BONES, INIT ENCNTR FOR 03/11/2017 GARY DE LEON Ot S09.90XA UNSPECIFIED INJURY OF HEAD, INITIAL ENCO 03/11/2017 GARY DE LEON Ot S63.602A UNSPECIFIED SPRAIN OF LEFT THUMB, INITIA 03/11/2017 GARY DE LEON Ot S80.01XA CONTUSION OF RIGHT KNEE, INITIAL ENCOUNT 03/11/2017 GARY DE LEON Ot W10.9XXA FALL (ON) (FROM) UNSPECIFIED STAIRS AND 03/11/2017 GARY DE LEON Ot Y92.[address] IN [facility] (PRIVATE 03/11/2017 GARY DE LEON Ot Z82.49 FAMILY HX OF ISCHEM HEART DIS AND OTH DI 03/11/2017 GARY DE LEON Ot Z87.19 PERSONAL HISTORY OF OTHER DISEASES OF TH 03/11/2017 GARY DE LEON Ot Z87.59 PERSONAL HISTORY OF COMP OF PREG, CHLDBR 03/11/2017 GARY DE LEON Ot Z98.1 ARTHRODESIS STATUS 03/31/2018 NISHANT CRUZ APRN Ot E11.22 TYPE 2 DIABETES MELLITUS W DIABETIC DEVICE SALES CONSULTANT 03/31/2018 NISHANT CRUZ APRN Ot E46 UNSPECIFIED PROTEIN-CALORIE MALNUTRITION 03/31/2018 NISHANT CRUZ APRN Ot E55.9 VITAMIN D DEFICIENCY, UNSPECIFIED 03/31/2018 NISHANT CRUZ APRN Ot E78.5 HYPERLIPIDEMIA, UNSPECIFIED 03/31/2018 NISHANT CRUZ APRN Ot E87.3 ALKALOSIS 03/31/2018 NISHANT CRUZ APRN Ot E87.5 HYPERKALEMIA 03/31/2018 NISHANT CRUZ APRN Ot I12.9 HYPERTENSIVE CHRONIC KIDNEY DISEASE W ST 03/31/2018 NISHANT CRUZ APRN Ot N18.2 CHRONIC KIDNEY DISEASE, STAGE 2 (MILD) 03/31/2018 NISHANT CRUZ APRN Ot N25.81 SECONDARY HYPERPARATHYROIDISM OF RENAL O 03/31/2018 NISHANT CRUZ APRN Ot N28.1 CYST OF KIDNEY, ACQUIRED 04/21/2018 NISHANT CRUZ APRN Ot E11.22 TYPE 2 DIABETES MELLITUS W DIABETIC DEVICE SALES CONSULTANT 04/21/2018 NISHANT CRUZ APRN Ot E46 UNSPECIFIED PROTEIN-CALORIE MALNUTRITION 04/21/2018 NISHANT CRUZ APRN Ot E55.9 VITAMIN D DEFICIENCY, UNSPECIFIED 04/21/2018 NISHANT CRUZ APRN Ot E78.5 HYPERLIPIDEMIA, UNSPECIFIED 04/21/2018 NISHANT CRUZ APRN Ot E87.3 ALKALOSIS 04/21/2018 NISHANT CRUZ APRN Ot E87.5 HYPERKALEMIA 04/21/2018 NISHANT CRUZ APRN Ot I12.9 HYPERTENSIVE CHRONIC KIDNEY DISEASE W ST 04/21/2018 NISHANT CRUZ APRN Ot N18.2 CHRONIC KIDNEY DISEASE, STAGE 2 (MILD) 04/21/2018 NISHANT CRUZ APRN Ot N25.81 SECONDARY HYPERPARATHYROIDISM OF RENAL O 04/21/2018 NISHANT CRUZ APRN Ot N28.1 CYST OF KIDNEY, ACQUIRED 05/05/2018 KATHE NIETO DO Ot M54.2 CERVICALGIA 05/09/2018 KATHE NIETO DO Ot M54.2 CERVICALGIA 07/05/2018 KATHE NIETO DO Ot M54.2 CERVICALGIA 07/20/2018 KATHE NIETO DO Ot M54.2 CERVICALGIA 07/21/2018 KATHE NIETO DO Ot M54.2 CERVICALGIA 11/14/2018 NISHANT CRUZ APRN Ot E11.22 TYPE 2 DIABETES MELLITUS W DIABETIC DEVICE SALES CONSULTANT 11/14/2018 NISHANT CRUZ APRN Ot E46 UNSPECIFIED PROTEIN-CALORIE MALNUTRITION 11/14/2018 NISHANT CRUZ APRN Ot E55.9 VITAMIN D DEFICIENCY, UNSPECIFIED 11/14/2018 NISHANT CRUZ APRN Ot E78.5 HYPERLIPIDEMIA, UNSPECIFIED 11/14/2018 NISHANT CRUZ APRN Ot E87.3 ALKALOSIS 11/14/2018 NISHANT CRUZ APRN Ot E87.5 HYPERKALEMIA 11/14/2018 NISHANT CRUZ APRN Ot I12.9 HYPERTENSIVE CHRONIC KIDNEY DISEASE W ST 11/14/2018 NISHANT CRUZ APRN Ot N18.2 CHRONIC KIDNEY DISEASE, STAGE 2 (MILD) 11/14/2018 NISHANT CRUZ APRN Ot N25.81 SECONDARY HYPERPARATHYROIDISM OF RENAL O 11/14/2018 NISHANT CRUZ APRN Ot N28.1 CYST OF KIDNEY, ACQUIRED 11/16/2018 WENDI ELIZABETH MD Ot Z01.818 ENCOUNTER FOR OTHER PREPROCEDURAL EXAMIN 11/17/2018 WENDI ELIZABETH MD, Ot Z01.818 ENCOUNTER FOR OTHER PREPROCEDURAL EXAMIN Procedures Code Description Performed By Performed On [id number] FUSION 2-6 C JT W INTBD FUS DEV, ANT KAMRYN 01/28/2015 Results Test Result Range Complete blood count (CBC) with automated white blood cell (WBC) differential - 10/17/16 12:15 Blood leukocytes automated count (number/volume) 10.4 10*3/uL 4.3-11.0 Blood erythrocytes automated count (number/volume) 4.77 10*6/uL 4.35-5.85 Venous blood hemoglobin measurement (mass/volume) 13.6 g/dL 11.5-16.0 Blood hematocrit (volume fraction) 42 % 35-52 Automated erythrocyte mean corpuscular volume 89 [foz_us] 80-99 Automated erythrocyte mean corpuscular hemoglobin (mass per erythrocyte) 29 pg 25-34 Automated erythrocyte mean corpuscular hemoglobin concentration measurement (mass/volume) 32 g/dL 32-36 Automated erythrocyte distribution width ratio 14.8 % 10.0- 14.5 Automated blood platelet count (count/volume) 240 10*3/uL 130-400 Automated blood platelet mean volume measurement 9.8 [foz_us] 7.4-10.4 Automated blood neutrophils/100 leukocytes 68 % 42-75 Automated blood lymphocytes/100 leukocytes 20 % 12-44 Blood monocytes/100 leukocytes 10 % 0-12 Automated blood eosinophils/100 leukocytes 2 % 0-10 Automated blood basophils/100 leukocytes 0 % 0-10 Blood neutrophils automated count (number/volume) 7.0 10*3 1.8-7.8 Blood lymphocytes automated count (number/volume) 2.1 10*3 1.0-4.0 Blood monocytes automated count (number/volume) 1.0 10*3 0.0- 1.0 Automated eosinophil count 0.2 10*3/uL 0.0-0.3 Automated blood basophil count (count/volume) 0.0 10*3/uL 0.0-0.1 Whole blood basic metabolic panel - 10/17/16 12:15 Serum or plasma sodium measurement (moles/volume) 141 mmol/L 135-145 Serum or plasma potassium measurement (moles/volume) 3.6 mmol/L 3.6-5.0 Serum or plasma chloride measurement (moles/volume) 103 mmol/L 98-107 Carbon dioxide 23 mmol/L 21-32 Serum or plasma anion gap determination (moles/volume) 15 mmol/L 5-14 Serum or plasma urea nitrogen measurement (mass/volume) 20 mg/dL 7-18 Serum or plasma creatinine measurement (mass/volume) 1.17 mg/dL 0.60-1.30 Serum or plasma urea nitrogen/creatinine mass [...] reactive protein measurement (mass/volume) 2.47 mg/dL 0.00-0.50 Gram stain microscopy - 10/19/16 22:50 GRAM STAIN RESULT MODERATE # WBC'S, NO BACTERIA OBSERVED NRG Bacteria identification in wound by culture - 10/19/16 22:50 Bacteria identification in wound by culture [id number] NR FREE TEXT EXTERNAL NO FURTHER STUDIES INDICATED NRG QUANTITY OF GROWTH Scant Growth NRG Complete blood count (CBC) with automated white blood cell (WBC) differential - 10/19/16 23:10 Blood leukocytes automated count (number/volume) 9.2 10*3/uL 4.3-11.0 Blood erythrocytes automated count (number/volume) 4.82 10*6/uL 4.35-5.85 Venous blood hemoglobin measurement (mass/volume) 13.7 g/dL 11.5-16.0 Blood hematocrit (volume fraction) 43 % 35-52 Automated erythrocyte mean corpuscular volume 89 [foz_us] 80-99 Automated erythrocyte mean corpuscular hemoglobin (mass per erythrocyte) 28 pg 25-34 Automated erythrocyte mean corpuscular hemoglobin concentration measurement (mass/volume) 32 g/dL 32-36 Automated erythrocyte distribution width ratio 14.5 % 10.0- 14.5 Automated blood platelet count (count/volume) 258 10*3/uL 130-400 Automated blood platelet mean volume measurement 10.1 [foz_us] 7.4-10.4 Automated blood neutrophils/100 leukocytes 61 % 42-75 Automated blood lymphocytes/100 leukocytes 28 % 12-44 Blood monocytes/100 leukocytes 9 % 0-12 Automated blood eosinophils/100 leukocytes 2 % 0-10 Automated blood basophils/100 leukocytes 0 % 0-10 Blood neutrophils automated count (number/volume) 5.6 10*3 1.8-7.8 Blood lymphocytes automated count (number/volume) 2.5 10*3 1.0-4.0 Blood monocytes automated count (number/volume) 0.8 10*3 0.0- 1.0 Automated eosinophil count 0.2 10*3/uL 0.0-0.3 Automated blood basophil count (count/volume) 0.0 10*3/uL 0.0-0.1 Serum or plasma C reactive protein measurement (mass/volume) - 10/19/16 23:10 Serum or plasma C reactive protein measurement (mass/volume) 2.38 mg/dL 0.00-0.50 Complete blood count (CBC) with automated white blood cell (WBC) differential - 11/23/16 19:27 Blood leukocytes automated count (number/volume) 16.4 10*3/uL 4.3-11.0 Blood erythrocytes automated count (number/volume) 4.93 10*6/uL 4.35-5.85 Venous blood hemoglobin measurement (mass/volume) 13.9 g/dL 11.5-16.0 Blood hematocrit (volume fraction) 43 % 35-52 Automated erythrocyte mean corpuscular volume 86 [foz_us] 80-99 Automated erythrocyte mean corpuscular hemoglobin (mass per erythrocyte) 28 pg 25-34 Automated erythrocyte mean corpuscular hemoglobin concentration measurement (mass/volume) 33 g/dL 32-36 Automated erythrocyte distribution width ratio 13.9 % 10.0- 14.5 Automated blood platelet count (count/volume) 243 10*3/uL 130-400 Automated blood platelet mean volume measurement 9.9 [foz_us] 7.4-10.4 Automated blood neutrophils/100 leukocytes 73 % 42-75 Automated blood lymphocytes/100 leukocytes 18 % 12-44 Blood monocytes/100 leukocytes 8 % 0-12 Automated blood eosinophils/100 leukocytes 1 % 0-10 Automated blood basophils/100 leukocytes 0 % 0-10 Blood neutrophils automated count (number/volume) 12.0 10*3 1.8-7.8 Blood lymphocytes automated count (number/volume) 3.0 10*3 1.0-4.0 Blood monocytes automated count (number/volume) 1.3 10*3 0.0- 1.0 Automated eosinophil count 0.1 10*3/uL 0.0-0.3 Automated blood basophil count (count/volume) 0.0 10*3/uL 0.0-0.1 Blood manual differential performed detection - 11/23/16 19:27 Blood monocytes/100 leukocytes 2 % NR Manual blood segmented neutrophils/100 leukocytes 67 % NRG Blood band neutrophils/100 leukocytes 0 % NRG Manual blood lymphocytes/100 leukocytes 29 % NRG Manual eosinophils/100 leukocytes in nose 2 % NRG Manual blood basophils/100 leukocytes 0 % NR Blood erythrocyte morphology finding identification [place] [facility] Comprehensive metabolic panel - 11/23/16 19:27 Serum or plasma sodium measurement (moles/volume) 139 mmol/L 135-145 Serum or plasma potassium measurement (moles/volume) 3.1 mmol/L 3.6-5.0 Serum or plasma chloride measurement (moles/volume) 103 mmol/L 98-107 Carbon dioxide 23 mmol/L 21-32 Serum or plasma anion gap determination (moles/volume) 13 mmol/L 5-14 Serum or plasma urea nitrogen measurement (mass/volume) 16 mg/dL 7-18 Serum or plasma creatinine measurement (mass/volume) 0.97 mg/dL 0.60-1.30 Serum or plasma urea nitrogen/creatinine mass ratio 16 NRG Serum or plasma creatinine measurement with calculation of estimated glomerular filtration rate 58 NRG Serum or plasma glucose measurement (mass/volume) 108 mg/dL 70-105 Serum or plasma calcium measurement (mass/volume) 9.1 mg/dL 8.5-10.1 Serum or plasma total bilirubin measurement (mass/volume) 0.6 mg/dL 0.1-1.0 Serum or plasma alkaline phosphatase measurement (enzymatic activity/volume) 59 U/L 40-136 Serum or plasma aspartate aminotransferase measurement (enzymatic activity/volume) 13 U/L 5-34 Serum or plasma alanine aminotransferase measurement (enzymatic activity/volume) 10 U/L 0-55 Serum or plasma protein measurement (mass/volume) 7.0 g/dL 6.4-8.2 Serum or plasma albumin measurement (mass/volume) 3.7 g/dL 3.2-4.5 Complete blood count (CBC) with automated white blood cell (WBC) differential - 12/09/16 08:30 Blood leukocytes automated count (number/volume) 14.6 10*3/uL 4.3-11.0 Blood erythrocytes automated count (number/volume) 5.08 10*6/uL 4.35-5.85 Venous blood hemoglobin measurement (mass/volume) 14.3 g/dL 11.5-16.0 Blood hematocrit (volume fraction) 44 % 35-52 Automated erythrocyte mean corpuscular volume 87 [foz_us] 80-99 Automated erythrocyte mean corpuscular hemoglobin (mass per erythrocyte) 28 pg 25-34 Automated erythrocyte mean corpuscular hemoglobin concentration measurement (mass/volume) 32 g/dL 32-36 Automated erythrocyte distribution width ratio 14.4 % 10.0- 14.5 Automated blood platelet count (count/volume) 250 10*3/uL 130-400 Automated blood platelet mean volume measurement 10.2 [foz_us] 7.4-10.4 Automated blood neutrophils/100 leukocytes 74 % 42-75 Automated blood lymphocytes/100 leukocytes 17 % 12-44 Blood monocytes/100 leukocytes 7 % 0-12 Automated blood eosinophils/100 leukocytes 2 % 0-10 Automated blood basophils/100 leukocytes 0 % 0-10 Blood neutrophils automated count (number/volume) 10.8 10*3 1.8-7.8 Blood lymphocytes automated count (number/volume) 2.5 10*3 1.0-4.0 Blood monocytes automated count (number/volume) 1.0 10*3 0.0- 1.0 Automated eosinophil count 0.3 10*3/uL 0.0-0.3 Automated blood basophil count (count/volume) 0.0 10*3/uL 0.0-0.1 Blood lactic acid measurement (moles/volume) - 12/09/16 08:30 Blood lactic acid measurement (moles/volume) 2.07 mmol/L 0.50- 2.00 Stool occult blood screen - 12/09/16 08:30 Stool gastrointestinal hemoglobin detection POSITIVE NEGATIVE Complete urinalysis with reflex to culture - 12/09/16 08:30 Urine color determination YELLOW NRG Urine clarity determination CLEAR NRG Urine pH measurement by test strip 5 5-9 Specific gravity of urine by test strip 1.020 1.016-1.022 Urine protein assay by test strip, semi-quantitative 2+ NEGATIVE Urine glucose detection by automated test strip NEGATIVE NEGATIVE Erythrocytes detection in urine sediment by light microscopy 4+ NEGATIVE Urine ketones detection by automated test strip NEGATIVE NEGATIVE Urine nitrite detection by test strip NEGATIVE NEGATIVE Urine total bilirubin detection by test strip NEGATIVE NEGATIVE Urine urobilinogen measurement by automated test strip (mass/volume) NORMAL NORMAL Urine leukocyte esterase detection by dipstick 2+ NEGATIVE Automated urine sediment erythrocyte count by microscopy (number/high power field) [HPF] NRG Automated urine sediment leukocyte count by microscopy (number/high power field) [HPF] NRG Bacteria detection in urine sediment by light microscopy FEW NRG Squamous epithelial cells detection in urine sediment by light microscopy 0-2 NRG Crystals detection in urine sediment by light microscopy PRESENT NRG Casts detection in urine sediment by light microscopy PRESENT NRG Mucus detection in urine sediment by light microscopy NEGATIVE NRG Complete urinalysis with reflex to culture YES NRG Hyaline casts detection in urine sediment by light microscopy 0-2 NRG Calcium oxalate crystals detection in urine sediment by light microscopy MODERATE NRG Blood manual differential performed detection - 12/09/16 08:30 Blood monocytes/100 leukocytes 8 % NRG Manual blood segmented neutrophils/100 leukocytes 70 % NR Manual blood lymphocytes/100 leukocytes 18 % NRG Manual eosinophils/100 leukocytes in nose 4 % NR Blood erythrocyte morphology finding identification NORMAL NR Blood toxic granules detection by light microscopy 1+ [place] [facility] Comprehensive metabolic panel - 12/09/16 08:30 Serum or plasma sodium measurement (moles/volume) 140 mmol/L 135-145 Serum or plasma potassium measurement (moles/volume) 3.9 mmol/L 3.6-5.0 Serum or plasma chloride measurement (moles/volume) 106 mmol/L 98-107 Carbon dioxide 21 mmol/L 21-32 Serum or plasma anion gap determination (moles/volume) 13 mmol/L 5-14 Serum or plasma urea nitrogen measurement (mass/volume) 21 mg/dL 7-18 Serum or plasma creatinine measurement (mass/volume) 1.06 mg/dL 0.60-1.30 Serum or plasma urea nitrogen/creatinine mass ratio 20 NRG Serum or plasma creatinine measurement with calculation of estimated glomerular filtration rate 53 NRG Serum or plasma glucose measurement (mass/volume) 135 mg/dL 70-105 Serum or plasma calcium measurement (mass/volume) 9.3 mg/dL 8.5-10.1 Serum or plasma total bilirubin measurement (mass/volume) 0.4 mg/dL 0.1-1.0 Serum or plasma alkaline phosphatase measurement (enzymatic activity/volume) 55 U/L 40-136 Serum or plasma aspartate aminotransferase measurement (enzymatic activity/volume) 16 U/L 5-34 Serum or plasma alanine aminotransferase measurement (enzymatic activity/volume) 14 U/L 0-55 Serum or plasma protein measurement (mass/volume) 7.5 g/dL 6.4-8.2 Serum or plasma albumin measurement (mass/volume) 4.0 g/dL 3.2-4.5 Magnesium - 12/09/16 08:30 Magnesium 2.1 mg/dL 1.8-2.4 Serum or plasma troponin i.cardiac measurement (mass/volume) - 12/09/16 08:30 Serum or plasma troponin i.cardiac measurement (mass/volume) < ng/mL <0.30 Lipase - 12/09/16 08:30 Lipase 110 U/L 8-78 Stool leukocytes detection by light microscopy - 12/09/16 08:30 FECAL WBC RESULTS FEW WBC'S OBSERVED ON DIRECT SMEAR NRG FECAL NOTE FECAL LEUKOCYTES MAY BE INTERMITTENTLY PRESENT OR NRG FECAL NOTE UNEVENLY DISTRIBUTED IN STOOL SPECIMENS, AND WBC NRG FECAL NOTE MORPHOLOGY DEGRADES DURING TRANSPORT NRG FECAL NOTE NOTE: NRG C DIFFICILE AG + TOXIN A/B. - 12/09/16 08:30 CALL POSITIVES (F1 HELP) CALLED TO ZACK/ER 12/09/16 9:50 BY Allison KYLE NRG SPECIAL CONTACT SPECIAL CONTACT PRECAUTIONS NEEDED NRG RESULTS POSITIVE FOR ANTIGEN AND TOXIN A/B NRG Stool bacteria identification by culture - 12/09/16 08:30 Stool bacteria identification by culture N2 NRG Bacterial urine culture - 12/09/16 08:30 Bacterial urine culture SEE COMMEN NRG COLONY COUNT . NRG FTX;REPORTABLE POSSIBLE 3RD GRAM NEGATIVE LUCRETIA NRG FREE TEXT ENTRY 2 <10,000/ML NRG [id number] - 12/09/16 08:30 [id number] FOOTNOTE NRG Serum or plasma lactate measurement (moles/volume) - 12/09/16 11:59 Serum or plasma lactate measurement (moles/volume) 1.30 mmol/L 0.50-2.00 Capillary blood glucose measurement by glucometer (mass/volume) - 12/09/16 16:24 Capillary blood glucose measurement by glucometer (mass/volume) 142 mg/dL 70-110 PT panel in platelet poor plasma by coagulation assay - 12/09/16 16:45 Prothrombin time (PT) in platelet poor plasma by coagulation assay 13.0 s 12.2-14.7 INR in platelet poor plasma or blood by coagulation assay 1.0 0.8-1.4 Activated partial thromboplastin time (aPTT) in platelet poor plasma bycoagulation assay - 12/09/16 16:45 Activated partial thromboplastin time (aPTT) in platelet poor plasma bycoagulation assay 28 s 24-35 Blood lactic acid measurement (moles/volume) - 12/09/16 16:45 Blood lactic acid measurement (moles/volume) 1.43 mmol/L 0.50- 2.00 Bacterial blood culture - 12/09/16 16:45 Bacterial blood culture NG NRG Capillary blood glucose measurement by glucometer (mass/volume) - 12/09/16 20:31 Capillary blood glucose measurement by glucometer (mass/volume) 117 mg/dL 70-110 Capillary blood glucose measurement by glucometer (mass/volume) - 12/10/16 05:05 Capillary blood glucose measurement by glucometer (mass/volume) 141 mg/dL 70-110 Complete blood count (CBC) with automated white blood cell (WBC) differential - 12/10/16 07:03 Blood leukocytes automated count (number/volume) 13.4 10*3/uL 4.3-11.0 Blood erythrocytes automated count (number/volume) 4.42 10*6/uL 4.35-5.85 Venous blood hemoglobin measurement (mass/volume) 12.5 g/dL 11.5-16.0 Blood hematocrit (volume fraction) 39 % 35-52 Automated erythrocyte mean corpuscular volume 89 [foz_us] 80-99 Automated erythrocyte mean corpuscular hemoglobin (mass per erythrocyte) 28 pg 25-34 Automated erythrocyte mean corpuscular hemoglobin concentration measurement (mass/volume) 32 g/dL 32-36 Automated erythrocyte distribution width ratio 14.3 % 10.0- 14.5 Automated blood platelet count (count/volume) 186 10*3/uL 130-400 Automated blood platelet mean volume measurement 10.4 [foz_us] 7.4-10.4 Automated blood neutrophils/100 leukocytes 73 % 42-75 Automated blood lymphocytes/100 leukocytes 18 % 12-44 Blood monocytes/100 leukocytes 8 % 0-12 Automated blood eosinophils/100 leukocytes 2 % 0-10 Automated blood basophils/100 leukocytes 0 % 0-10 Blood neutrophils automated count (number/volume) 9.8 10*3 1.8-7.8 Blood lymphocytes automated count (number/volume) 2.4 10*3 1.0-4.0 Blood monocytes automated count (number/volume) 1.0 10*3 0.0- 1.0 Automated eosinophil count 0.2 10*3/uL 0.0-0.3 Automated blood basophil count (count/volume) 0.0 10*3/uL 0.0-0.1 Whole blood basic metabolic panel - 12/10/16 07:03 Serum or plasma sodium measurement (moles/volume) 139 mmol/L 135-145 Serum or plasma potassium measurement (moles/volume) 3.6 mmol/L 3.6-5.0 Serum or plasma chloride measurement (moles/volume) 109 mmol/L 98-107 Carbon dioxide 22 mmol/L 21-32 Serum or plasma anion gap determination (moles/volume) 8 mmol/L 5-14 Serum or plasma urea nitrogen measurement (mass/volume) 15 mg/dL 7-18 Serum or plasma creatinine measurement (mass/volume) 0.80 mg/dL 0.60-1.30 Serum or plasma urea nitrogen/creatinine mass ratio 19 NRG Serum or plasma creatinine measurement with calculation of estimated glomerular filtration rate > NRG Serum or plasma glucose measurement (mass/volume) 144 mg/dL 70-105 Serum or plasma calcium measurement (mass/volume) 8.0 mg/dL 8.5-10.1 Capillary blood glucose measurement by glucometer (mass/volume) - 12/10/16 10:55 Capillary blood glucose measurement by glucometer (mass/volume) 145 mg/dL 70-110 Capillary blood glucose measurement by glucometer (mass/volume) - 12/10/16 16:10 Capillary blood glucose measurement by glucometer (mass/volume) 127 mg/dL 70-110 Capillary blood glucose measurement by glucometer (mass/volume) - 12/10/16 20:54 Capillary blood glucose measurement by glucometer (mass/volume) 144 mg/dL 70-110 Capillary blood glucose measurement by glucometer (mass/volume) - 12/11/16 05:32 Capillary blood glucose measurement by glucometer (mass/volume) 119 mg/dL 70-110 Capillary blood glucose measurement by glucometer (mass/volume) - 12/11/16 16:04 Capillary blood glucose measurement by glucometer (mass/volume) 90 mg/dL 70-110 Capillary blood glucose measurement by glucometer (mass/volume) - 12/11/16 21:01 Capillary blood glucose measurement by glucometer (mass/volume) 111 mg/dL 70-110 Capillary blood glucose measurement by glucometer (mass/volume) - 12/11/16 23:50 Capillary blood glucose measurement by glucometer (mass/volume) 113 mg/dL 70-110 Complete blood count (CBC) with automated white blood cell (WBC) differential - 12/12/16 05:15 Blood leukocytes automated count (number/volume) 11.7 10*3/uL 4.3-11.0 Blood erythrocytes automated count (number/volume) 4.07 10*6/uL 4.35-5.85 Venous blood hemoglobin measurement (mass/volume) 11.6 g/dL 11.5-16.0 Blood hematocrit (volume fraction) 36 % 35-52 Automated erythrocyte mean corpuscular volume 89 [foz_us] 80-99 Automated erythrocyte mean corpuscular hemoglobin (mass per erythrocyte) 29 pg 25-34 Automated erythrocyte mean corpuscular hemoglobin concentration measurement (mass/volume) 32 g/dL 32-36 Automated erythrocyte distribution width ratio 14.3 % 10.0- 14.5 Automated blood platelet count (count/volume) 190 10*3/uL 130-400 Automated blood platelet mean volume measurement 10.4 [foz_us] 7.4-10.4 Automated blood neutrophils/100 leukocytes 72 % 42-75 Automated blood lymphocytes/100 leukocytes 18 % 12-44 Blood monocytes/100 leukocytes 9 % 0-12 Automated blood eosinophils/100 leukocytes 1 % 0-10 Automated blood basophils/100 leukocytes 0 % 0-10 Blood neutrophils automated count (number/volume) 8.4 10*3 1.8-7.8 Blood lymphocytes automated count (number/volume) 2.1 10*3 1.0-4.0 Blood monocytes automated count (number/volume) 1.0 10*3 0.0- 1.0 Automated eosinophil count 0.2 10*3/uL 0.0-0.3 Automated blood basophil count (count/volume) 0.0 10*3/uL 0.0-0.1 Comprehensive metabolic panel - 12/12/16 05:15 Serum or plasma sodium measurement (moles/volume) 140 mmol/L 135-145 Serum or plasma potassium measurement (moles/volume) 3.7 mmol/L 3.6-5.0 Serum or plasma chloride measurement (moles/volume) 109 mmol/L 98-107 Carbon dioxide 23 mmol/L 21-32 Serum or plasma anion gap determination (moles/volume) 8 mmol/L 5-14 Serum or plasma urea nitrogen measurement (mass/volume) 12 mg/dL 7-18 Serum or plasma creatinine measurement (mass/volume) 0.86 mg/dL 0.60-1.30 Serum or plasma urea nitrogen/creatinine mass ratio 14 NRG Serum or plasma creatinine measurement with calculation of estimated glomerular filtration rate > NRG Serum or plasma glucose measurement (mass/volume) 118 mg/dL 70-105 Serum or plasma calcium measurement (mass/volume) 8.6 mg/dL 8.5-10.1 Serum or plasma total bilirubin measurement (mass/volume) 0.3 mg/dL 0.1-1.0 Serum or plasma alkaline phosphatase measurement (enzymatic activity/volume) 43 U/L 40-136 Serum or plasma aspartate aminotransferase measurement (enzymatic activity/volume) 14 U/L 5-34 Serum or plasma alanine aminotransferase measurement (enzymatic activity/volume) 11 U/L 0-55 Serum or plasma protein measurement (mass/volume) 5.3 g/dL 6.4-8.2 Serum or plasma albumin measurement (mass/volume) 3.1 g/dL 3.2-4.5 Capillary blood glucose measurement by glucometer (mass/volume) - 12/12/16 05:22 Capillary blood glucose measurement by glucometer (mass/volume) 109 mg/dL 70-110 Capillary blood glucose measurement by glucometer (mass/volume) - 12/12/16 11:09 Capillary blood glucose measurement by glucometer (mass/volume) 140 mg/dL 70-110 Capillary blood glucose measurement by glucometer (mass/volume) - 12/12/16 16:33 Capillary blood glucose measurement by glucometer (mass/volume) 135 mg/dL 70-110 Capillary blood glucose measurement by glucometer (mass/volume) - 12/12/16 21:42 Capillary blood glucose measurement by glucometer (mass/volume) 105 mg/dL 70-110 Capillary blood glucose measurement by glucometer (mass/volume) - 12/13/16 05:44 Capillary blood glucose measurement by glucometer (mass/volume) 117 mg/dL 70-110 Capillary blood glucose measurement by glucometer (mass/volume) - 12/13/16 11:58 Capillary blood glucose measurement by glucometer (mass/volume) 94 mg/dL 70-110 Capillary blood glucose measurement by glucometer (mass/volume) - 12/13/16 16:11 Capillary blood glucose measurement by glucometer (mass/volume) 127 mg/dL 70-110 Capillary blood glucose measurement by glucometer (mass/volume) - 12/13/16 20:58 Capillary blood glucose measurement by glucometer (mass/volume) 124 mg/dL 70-110 Capillary blood glucose measurement by glucometer (mass/volume) - 12/14/16 05:18 Capillary blood glucose measurement by glucometer (mass/volume) 103 mg/dL 70-110 Capillary blood glucose measurement by glucometer (mass/volume) - 12/14/16 10:48 Capillary blood glucose measurement by glucometer (mass/volume) 156 mg/dL 70-110 Capillary blood glucose measurement by glucometer (mass/volume) - 12/14/16 16:09 Capillary blood glucose measurement by glucometer (mass/volume) 108 mg/dL 70-110 Capillary blood glucose measurement by glucometer (mass/volume) - 12/14/16 20:53 Capillary blood glucose measurement by glucometer (mass/volume) 160 mg/dL 70-110 Capillary blood glucose measurement by glucometer (mass/volume) - 12/15/16 05:09 Capillary blood glucose measurement by glucometer (mass/volume) 101 mg/dL 70-110 Capillary blood glucose measurement by glucometer (mass/volume) - 12/15/16 11:08 Capillary blood glucose measurement by glucometer (mass/volume) 135 mg/dL 70-110 Capillary blood glucose measurement by glucometer (mass/volume) - 12/15/16 16:19 Capillary blood glucose measurement by glucometer (mass/volume) 132 mg/dL 70-110 Capillary blood glucose measurement by glucometer (mass/volume) - 12/15/16 20:31 Capillary blood glucose measurement by glucometer (mass/volume) 103 mg/dL 70-110 Capillary blood glucose measurement by glucometer (mass/volume) - 12/16/16 05:22 Capillary blood glucose measurement by glucometer (mass/volume) 103 mg/dL 70-110 Capillary blood glucose measurement by glucometer (mass/volume) - 12/16/16 10:56 Capillary blood glucose measurement by glucometer (mass/volume) 123 mg/dL 70-110 Complete blood count (CBC) with automated white blood cell (WBC) differential - 01/09/17 12:41 Blood leukocytes automated count (number/volume) 10.4 10*3/uL 4.3-11.0 Blood erythrocytes automated count (number/volume) 4.77 10*6/uL 4.35-5.85 Venous blood hemoglobin measurement (mass/volume) 13.5 g/dL 11.5-16.0 Blood hematocrit (volume fraction) 42 % 35-52 Automated erythrocyte mean corpuscular volume 88 [foz_us] 80-99 Automated erythrocyte mean corpuscular hemoglobin (mass per erythrocyte) 28 pg 25-34 Automated erythrocyte mean corpuscular hemoglobin concentration measurement (mass/volume) 32 g/dL 32-36 Automated erythrocyte distribution width ratio 14.6 % 10.0- 14.5 Automated blood platelet count (count/volume) 238 10*3/uL 130-400 Automated blood platelet mean volume measurement 9.9 [foz_us] 7.4-10.4 Automated blood neutrophils/100 leukocytes 73 % 42-75 Automated blood lymphocytes/100 leukocytes 18 % 12-44 Blood monocytes/100 leukocytes 8 % 0-12 Automated blood eosinophils/100 leukocytes 1 % 0-10 Automated blood basophils/100 leukocytes 0 % 0-10 Blood neutrophils automated count (number/volume) 7.5 10*3 1.8-7.8 Blood lymphocytes automated count (number/volume) 1.9 10*3 1.0-4.0 Blood monocytes automated count (number/volume) 0.9 10*3 0.0- 1.0 Automated eosinophil count 0.1 10*3/uL 0.0-0.3 Automated blood basophil count (count/volume) 0.0 10*3/uL 0.0-0.1 Blood lactic acid measurement (moles/volume) - 01/09/17 12:41 Blood lactic acid measurement (moles/volume) 0.70 mmol/L 0.50- 2.00 Comprehensive metabolic panel - 01/09/17 12:41 Serum or plasma sodium measurement (moles/volume) 142 mmol/L 135-145 Serum or plasma potassium measurement (moles/volume) 3.7 mmol/L 3.6-5.0 Serum or plasma chloride measurement (moles/volume) 106 mmol/L 98-107 Carbon dioxide 24 mmol/L 21-32 Serum or plasma anion gap determination (moles/volume) 12 mmol/L 5-14 Serum or plasma urea nitrogen measurement (mass/volume) 10 mg/dL 7-18 Serum or plasma creatinine measurement (mass/volume) 0.78 mg/dL 0.60-1.30 Serum or plasma urea nitrogen/creatinine mass ratio 13 NRG Serum or plasma creatinine measurement with calculation of estimated glomerular filtration rate > NRG Serum or plasma glucose measurement (mass/volume) 106 mg/dL 70-105 Serum or plasma calcium measurement (mass/volume) 9.1 mg/dL 8.5-10.1 Serum or plasma total bilirubin measurement (mass/volume) 0.5 mg/dL 0.1-1.0 Serum or plasma alkaline phosphatase measurement (enzymatic activity/volume) 56 U/L 40-136 Serum or plasma aspartate aminotransferase measurement (enzymatic activity/volume) 13 U/L 5-34 Serum or plasma alanine aminotransferase measurement (enzymatic activity/volume) 14 U/L 0-55 Serum or plasma protein measurement (mass/volume) 7.2 g/dL 6.4-8.2 Serum or plasma albumin measurement (mass/volume) 3.9 g/dL 3.2-4.5 Magnesium - 01/09/17 12:41 Magnesium 1.7 mg/dL 1.8-2.4 Lipase - 01/09/17 12:41 Lipase 14 U/L 8-78 Stool occult blood screen - 01/09/17 13:21 Stool gastrointestinal hemoglobin detection POSITIVE NEGATIVE Stool leukocytes detection by light microscopy - 01/09/17 13:21 FECAL WBC RESULTS FEW WBC'S OBSERVED ON DIRECT SMEAR NRG FECAL NOTE FECAL LEUKOCYTES MAY BE INTERMITTENTLY PRESENT OR NRG FECAL NOTE UNEVENLY DISTRIBUTED IN STOOL SPECIMENS, AND WBC NRG FECAL NOTE MORPHOLOGY DEGRADES DURING TRANSPORT NRG FECAL NOTE NOTE: NRG Complete urinalysis with reflex to culture - 01/09/17 13:21 Urine color determination YELLOW NRG Urine clarity determination CLEAR NRG Urine pH measurement by test strip 6 5-9 Specific gravity of urine by test strip 1.015 1.016-1.022 Urine protein assay by test strip, semi-quantitative 1+ NEGATIVE Urine glucose detection by automated test strip NEGATIVE NEGATIVE Erythrocytes detection in urine sediment by light microscopy 2+ NEGATIVE Urine ketones detection by automated test strip NEGATIVE NEGATIVE Urine nitrite detection by test strip NEGATIVE NEGATIVE Urine total bilirubin detection by test strip NEGATIVE NEGATIVE Urine urobilinogen measurement by automated test strip (mass/volume) NORMAL NORMAL Urine leukocyte esterase detection by dipstick 1+ NEGATIVE Automated urine sediment erythrocyte count by microscopy (number/high power field) [HPF] NRG Automated urine sediment leukocyte count by microscopy (number/high power field) [HPF] NRG Bacteria detection in urine sediment by light microscopy TRACE NRG Squamous epithelial cells detection in urine sediment by light microscopy 5-10 NRG Crystals detection in urine sediment by light microscopy NONE NRG Casts detection in urine sediment by light microscopy NONE NRG Mucus detection in urine sediment by light microscopy SMALL NRG Complete urinalysis with reflex to culture NO NRG Clostridium difficile detection - 01/09/17 13:21 Clostridium difficile detection TNP NRG C DIFFICILE AG + TOXIN A/B. - 01/09/17 13:21 RESULTS INDETERMINANT; MOLECULAR TEST TO FOLLOW [facility] Stool bacteria identification by culture - 01/09/17 13:21 Stool bacteria identification by culture N2 [facility] - 08/18/18 11:05 GLUCOSE 185 mg/dL 65-99 UREA NITROGEN (BUN) 18 mg/dL 7-25 CREATININE 0.94 mg/dL 0.50-0.99 eGFR NON-AFR. [place] 65 mL/min/1.73m2 > OR=60 eGFR 75 mL/min/1.73m2 > OR=60 BUN/CREATININE RATIO NOT APPLICABLE (calc) 6-22 SODIUM 140 mmol/L 135-146 POTASSIUM 4.5 mmol/L 3.5-5.3 CHLORIDE 101 mmol/L 98-110 CARBON DIOXIDE 28 mmol/L 20-32 CALCIUM 9.4 mg/dL 8.6-10.4 PROTEIN, TOTAL 7.4 g/dL 6.1-8.1 ALBUMIN 4.2 g/dL 3.6-5.1 GLOBULIN 3.2 g/dL (calc) 1.9-3.7 ALBUMIN/GLOBULIN RATIO 1.3 (calc) 1.0-2.5 BILIRUBIN, TOTAL 0.5 mg/dL 0.2-1.2 ALKALINE PHOSPHATASE 56 U/L 33-130 AST 12 U/L 10-35 ALT 9 U/L 6-29 TSH - 08/18/18 11:05 TSH 1.29 mIU/L 0.40-4.50 Capillary blood glucose measurement by glucometer (mass/volume) - 11/17/18 10:30 Capillary blood glucose measurement by glucometer (mass/volume) 269 mg/dL 70-110 Capillary blood glucose measurement by glucometer (mass/volume) - 11/17/18 14:50 Capillary blood glucose measurement by glucometer (mass/volume) 237 mg/dL 70-110 Encounters ACCT No. Visit Date/Time Discharge Status Pt. Type Provider Facility Loc./Unit Complaint [id number] 08/18/2018 11:00:00 08/18/2018 23:59:59 CLS Outpatient [facility]ELLEN [id number] 08/18/2018 11:00:00 Document Registration [id number] 11/16/2018 15:35:00 11/16/2018 16:15:00 DIS Outpatient WENDI ELIZABETH MD [facility] PREOP VENTRAL ABDOMINAL INCISIONAL HERNIA [id number] 07/21/2018 00:16:00 07/21/2018 23:59:59 CLS Preadmit KATHE NIETO DO [facility] REHAB NECK PAIN [id number] 05/12/2018 13:01:00 07/20/2018 00:01:00 DIS Outpatient KATHE NIETO DO [facility] REHAB NECK PAIN [id number] 03/30/2018 12:45:00 03/30/2018 23:59:59 CLS Outpatient FABRICEELIAS NISHANT B ACROBATIC DANCER [facility] RAD HYPERLIPIDEMIA [id number] 03/28/2018 07:30:00 03/28/2018 23:59:59 CLS Preadmit KATHE NIETO DO CERVICAL HERNIATED NUCLEUS PULPOSUS [id number] 03/28/2018 07:30:00 03/28/2018 23:59:59 CLS Preadmit KATHE NIETO DO [facility] SDC CERVICAL HERNIATED NUCLEUS PULPOSIS [id number] 03/04/2017 15:29:00 03/04/2017 17:27:00 DIS Emergency GARY DE LEON [facility] ER FALL [id number] 01/09/2017 12:20:00 01/09/2017 15:00:00 DIS Emergency MARVIN CORREIA MD [facility] ER WEAKNESS [id number] 12/09/2016 10:15:00 12/16/2016 12:34:00 DIS Inpatient ALEIDA LICEA DO [facility] 4TH C DIFF COLITIS/DIVIRTICULITIS/SEPSIS [id number] 11/23/2016 17:59:00 11/23/2016 21:22:00 DIS Emergency JASON PALMER ACROBATIC DANCER [facility] ER DIARRHEA [id number] 10/19/2016 21:39:00 10/19/2016 23:30:00 DIS Emergency JASON PALMER ACROBATIC DANCER [facility] ER RT FOOT LACERATION THAT IS INFECTED [id number] 10/17/2016 11:09:00 10/17/2016 13:51:00 DIS Emergency GARY DE LEON [facility] ER R FOOT INJ [id number] 03/15/2016 10:30:00 03/15/2016 13:17:00 DIS Emergency GARY DE LEON [facility] ER LOWER BACK PAIN [id number] 01/28/2015 07:04:00 01/30/2015 11:38:00 DIS Inpatient KATHE NIETO DO [facility] 4TH CERVICAL STENOSIS [id number] 01/16/2015 11:49:00 01/16/2015 14:03:00 DIS Emergency ANTWON TOBIN, NASIR Hernandez [facility] ER NECK PAIN [id number] 01/08/2015 10:11:00 01/08/2015 23:59:59 CLS Outpatient KATHE NIETO DO [facility] PREOP CERVICAL STENOSIS [id number] 11/17/2018 10:36:00 Document Registration [id number] 11/15/2018 13:54:00 ACT Outpatient WENDI ELIZABETH MD [facility] RAD ABD PAIN,POSS HERNIA
[2018-11-18] VITALS: BP 164/98
--- NOTE | 2018-11-18 00:07 | OPERATIVE REPORT ---
DATE OF SERVICE: 11/17/2018 ATTENDING PRIMARY CARE PHYSICIAN: Dr. Francois. PREOPERATIVE DIAGNOSIS: Recurrent ventral abdominal incisional hernia. POSTOPERATIVE DIAGNOSES: Recurrent ventral abdominal incisional hernia, hernia dimensions 6 x 4 cm in size, small bowel within the hernia sac. PROCEDURE: Open repair of recurrent ventral abdominal incisional hernia with mesh. SURGEON: Wendi Elizabeth MD TISSUE RECOVERY TECHNICIAN: Angelo Sweet APRN. ANESTHESIA: General endotracheal. ESTIMATED BLOOD LOSS: Minimal. FINDINGS: Recurrent midline laparotomy incisional hernia with the dimensions of the hernia defect 6 x 4 cm in size with small bowel within the hernia sac. DISPOSITION: The patient tolerated the procedure well. INDICATIONS: The patient is a 63-year-old female known to us. She was seen in 11/2016 for crampy abdominal pain as well as diarrhea. She reported that she had issues with diverticulitis and underwent a low anterior sigmoid resection in 2009 in [place]. She also has had 2 previous ventral abdominal incisional hernias, which were repaired with mesh. She was seen in the office after the event of Clostridium difficile colitis. She did have recurrence of hernia, which had grown larger in size and become symptomatic. This was also identified on the CT scan when she was admitted to the hospital. DESCRIPTION OF PROCEDURE: The patient was brought to the operating room, laid supine on the table. After adequate IV pain and sedative medications and general endotracheal intubation, the abdomen was prepped and draped in standard surgical fashion. A 0.5% Marcaine with epinephrine was used to anesthetize the overlying skin supraumbilically and a vertical skin incision made along the previous incision line using a 15 blade. The subcutaneous tissue was then dissected down using electrocautery. The hernia sac was identified and left intact. We then proceeded to dissect around the entire hernia sac. We proceeded to reach the fascia. There were actually two hernias, which were connected by a small bridge of connective tissue fiber. This was opened using electrocautery and a combined hernia dimensions were approximately 6 x 3 cm in size. We then proceeded with dissecting around the fascia using electrocautery as well as blunt dissection. The hernia sac was then opened using Metzenbaum scissors and excised using Metzenbaum scissors. Adhesion is towards the peritoneal lining along the anterior abdominal wall were then taken down using electrocautery as well as blunt dissection. Good hemostasis was observed. We then proceeded with placement of a [employer] Com[employer]ix polypropylene mesh, which was 10 x 8 x 15.9 cm in size. This was then placed into the defect. The mesh was then placed and sutured transfascially around in a circumferential manner using interrupted 0 Prolene sutures. Good hemostasis was observed. The subcutaneous tissue was then reapproximated using 3-0 Vicryl interrupted sutures. Skin was closed using 4-0 Monocryl running subcuticular suture. The wound was then covered with Dermabond followed by gauze, followed by Op-Site. A large abdominal binder was then placed. The patient tolerated the procedure well. We will start IV and oral pain medication as well as a clear liquid diet. When she is tolerating clears, has good pain control with oral pain medication and is ambulating well, we will discharge her home. She will be instructed to do no heavy lifting or exertion for the next six weeks as well as to wear the abdominal binder at all times except for her to shower. Job ID: [id number] DocumentID: [id number] Dictated Date: 11/17/2018 14:21:46 Reticle Printer Date: 11/18/2018 00:06:56 Dictated By: WENDI ELIZABETH MD MTDD
[2018-11-18] MEDS: HYDROcodone/APAP 5 MG/325 MG (LORTAB) TAB PO PRN (03:36)
[2018-11-18] MEDS: CYCLOBENZAPRINE 10 MG (FLEXERIL) TAB PO PRN (03:36)
[2018-11-18 03:58] VITALS: BP 172/81
[2018-11-18 08:00] VITALS: BP 173/95
[2018-11-18] MEDS ORDERED: RT-ALBUTEROL/IPRATROPIUM 3 ML (DUONEB) VIAL IH PRN (09:00)
[2018-11-18] MEDS: buPROPion SR 150 MG (WELLBUTRIN SR) TAB PO SCH (09:30)
[2018-11-18] MEDS: VITAMIN D3 5,000 UNITS (CHOLECALCIFEROL ) CAPSULE PO SCH (09:30)
[2018-11-18] MEDS: DULoxetine 30 MG (CYMBALTA) CAP PO SCH (09:31)
[2018-11-18] MEDS: LINAGLIPTIN (TRADJENTA) 5 MG TABLET PO SCH (09:31)
[2018-11-18] MEDS: MAGNESIUM OXIDE (MAG-OX)400 MG TAB PO SCH (09:31)
[2018-11-18] MEDS: OMEGA 3 (FISH OIL) 1000 MG CAP PO SCH (09:31)
[2018-11-18] MEDS: lisINopril 20 MG (PRINIVIL) TABLET PO SCH (09:31)
[2018-11-18] MEDS: amLODIPine 10 MG (NORVASC) TAB PO SCH (09:31)
--- NOTE | 2018-11-18 10:09 | Progress Note ---
Subjective Date Seen by a Provider: Nov 18, 2018 Time Seen by a Provider: 10:00 Subjective/Events-last exam doing well. pain controlled. hyperglycemic and hypertensive however normal medication regimen held for surgery and restarted. tolerating diet. Objective Exam Vital Signs Date Time Temp Pulse Resp B/P (MAP) Pulse Ox O2 Delivery O2 Flow Rate FiO2 11/18/18 08:34 Nasal Cannula 3.00 11/18/18 08:00 98.1 117 20 173/95 (121) 90 Nasal Cannula 3.00 11/18/18 03:58 99.1 93 22 172/81 (111) 96 Nasal Cannula 3.00 11/18/18 00:00 99.4 108 20 164/98 (120) 96 Nasal Cannula 3.00 11/17/18 20:51 Nasal Cannula 3.00 11/17/18 20:00 98.8 109 18 147/88 (107) 94 Nasal Cannula 3.00 11/17/18 17:48 Nasal Cannula 3.00 11/17/18 16:40 98.1 105 20 164/86 93 Nasal Cannula 3.00 11/17/18 16:10 98.0 100 20 165/85 93 Nasal Cannula 3.00 11/17/18 15:40 97.6 22 93 Nasal Cannula 3 11/17/18 15:40 98.1 103 20 157/85 93 Nasal Cannula 3.00 11/17/18 15:40 Nasal Cannula 3 11/17/18 15:30 Nasal Cannula 3 11/17/18 15:30 22 93 Nasal Cannula 3 11/17/18 15:23 Nasal Cannula 3 11/17/18 15:20 18 93 Nasal Cannula 3 11/17/18 15:16 Nasal Cannula 3 11/17/18 15:10 18 94 OxyMask 6 11/17/18 15:10 OxyMask 6 11/17/18 15:00 22 95 OxyMask 6 11/17/18 14:55 OxyMask 6 11/17/18 14:50 22 94 OxyMask 6 11/17/18 14:45 24 94 OxyMask 6 11/17/18 14:39 OxyMask 6 11/17/18 14:39 97.3 24 91 OxyMask 6 11/17/18 11:42 98.0 100 18 148/94 (112) 93 Nasal Cannula 2.00 I & O 11/18/18 07:00 Intake Total 4085 ml Output Total 2800 ml Balance 1285 ml Capillary Refill : General Appearance: No Apparent Distress HEENT: PERRL/EOMI Neck: Full Range of Motion Respiratory: Decreased Breath Sounds, Wheezing Cardiovascular: Regular Rate, Rhythm Gastrointestinal: normal bowel sounds, soft Extremity: Normal Capillary Refill Neurologic/Psychiatric: Alert, Oriented x3 Skin: Normal Color Lymphatic: No Adenopathy Results Lab Laboratory Tests 11/17/18 10:30: Glucometer 269H 11/17/18 14:50: Glucometer 237H 11/17/18 21:46: Glucometer 294H 11/18/18 05:26: Glucometer 318H Assessment/Plan Assessment/Plan Assess & Plan/Chief Complaint s/p open repair recurrent ventral abd incisional hernia with mesh with multiple medical comorbidities including diabetes, copd and morbid obesity. ambulate. diet as tolerated. resume all home meds. no lifting or exertion for 6 weeks. Clinical Quality Measures DVT/VTE Risk/Contraindication: Risk Factor Score Per Nursin RFS Level Per Nursing on Admit: 4+=Very High WENDI ELIZABETH MD Nov 18, 2018 10:09
[2018-11-18 12:00] VITALS: BP 129/71
[2018-11-18] MEDS ORDERED: inSUlin ASPART (NovoLOG) 1 UNIT/0.01 ML (CHARGE PER UNIT) SC SCH (12:15)
--- NOTE | 2018-11-18 12:17 | Anesthesia-General Post-Op ---
General Patient Condition Mental Status/LOC: Same as Preop Cardiovascular: Satisfactory Nausea/Vomiting: Absent Respiratory: Satisfactory Pain: Controlled (Pt is having abdominal pain, which is to be expected after her surgery.) Complications: Absent Post Op Complications Complications None Follow Up Care/Instructions Patient Instructions None needed. Anesthesia/Patient Condition Patient Condition Patient is doing well, C/O abd pain which is to be expected, stable vital signs, no apparent adverse anesthesia problems. DELFIN RAYMUNDO DO Nov 18, 2018 12:17
--- NOTE | 2018-11-18 12:17 | NUR ---
NOTIFIED DR ELIZABETH OF PT BLOOD SUGAR, ORDERS RECEIVED FOR SLIDING SCALE C INSULIN.
[2018-11-18] MEDS: HYDROcodone/APAP 7.5 MG/325 MG (LORTAB, LORCET PLUS) TABLET PO SCH ×3 (12:23→20:08)
[2018-11-18] MEDS: inSUlin ASPART (NovoLOG) 1 UNIT/0.01 ML (CHARGE PER UNIT) SC SCH ×3 (12:23→22:03)
[2018-11-18 16:00] VITALS: BP 130/73
--- NOTE | 2018-11-18 16:31 | NUR ---
NOTIFIED DR. ELIZABETH OF PT'S BLOOD SUGAR. DR. ELIZABETH ORDERED TO GIVE SLIDING SCALE INSULIN AND RECHECK IN TWO HOURS. DR. ELIZABETH STATED "IF SUGAR LOWER THAN 200, DISCHARGE PT. IF SUGAR GREATER THAN 200, CONSULT THE HOSPITALIST IN AM."
[2018-11-18] MEDS: ATORVASTATIN 40 MG (LIPITOR) TABLET PO SCH (20:08)
[2018-11-18] MEDS: RT-ADVAIR HFA 115/21 MCG PER PUFF IH SCH (20:30)
[2018-11-19 00:15] VITALS: BP 123/64
[2018-11-19] MEDS: HYDROcodone/APAP 7.5 MG/325 MG (LORTAB, LORCET PLUS) TABLET PO SCH ×4 (00:29→11:57)
[2018-11-19] MEDS: inSUlin ASPART (NovoLOG) 1 UNIT/0.01 ML (CHARGE PER UNIT) SC SCH ×4 (05:24→21:44)
[2018-11-19] MEDS: RT-ADVAIR HFA 115/21 MCG PER PUFF IH SCH (07:38)
[2018-11-19 08:00] VITALS: BP 117/61
[2018-11-19] MEDS: LINAGLIPTIN (TRADJENTA) 5 MG TABLET PO SCH (08:43)
[2018-11-19] MEDS: VITAMIN D3 5,000 UNITS (CHOLECALCIFEROL ) CAPSULE PO SCH (08:43)
[2018-11-19] MEDS: DULoxetine 30 MG (CYMBALTA) CAP PO SCH (08:43)
[2018-11-19] MEDS: buPROPion SR 150 MG (WELLBUTRIN SR) TAB PO SCH (08:43)
[2018-11-19] MEDS: OMEGA 3 (FISH OIL) 1000 MG CAP PO SCH (08:43)
[2018-11-19] MEDS: lisINopril 20 MG (PRINIVIL) TABLET PO SCH (08:43)
[2018-11-19] MEDS: amLODIPine 10 MG (NORVASC) TAB PO SCH (08:43)
[2018-11-19] MEDS: MAGNESIUM OXIDE (MAG-OX)400 MG TAB PO SCH (08:45)
--- NOTE | 2018-11-19 12:00 | NUR ---
NOTE THAT PER DR ELIZABETH'S VERBAL ORDERS DR WISDOM WAS CONSULTED -- THIS RN TALKED TO DR WISDOM ABOUT CONSULT
--- NOTE | 2018-11-19 12:19 | Progress Note ---
Subjective Date Seen by a Provider: Nov 19, 2018 Time Seen by a Provider: 11:20 Subjective/Events-last exam Patient seen with Dr. Olvera. Patient reports doing ok. Still having abdominal pain from surgery. Tolerating diet. Ambulating some. BS still elevated. Objective Exam Vital Signs Date Time Temp Pulse Resp B/P (MAP) Pulse Ox O2 Delivery O2 Flow Rate FiO2 11/19/18 09:15 98.0 11/19/18 09:00 Nasal Cannula 3.00 11/19/18 08:00 98.0 92 20 117/61 (79) 94 Nasal Cannula 3.00 11/19/18 07:38 92 Nasal Cannula 4.00 11/19/18 00:15 98.1 116 21 123/64 (83) 94 Nasal Cannula 3.00 11/18/18 21:00 Nasal Cannula 3.00 11/18/18 20:30 90 Nasal Cannula 4.00 11/18/18 16:00 98.6 116 22 130/73 (92) 94 Nasal Cannula 3.00 I & O 11/19/18 07:00 Intake Total 1310 ml Output Total 725 ml Balance 585 ml Capillary Refill : General Appearance: No Apparent Distress, WD/WN Neck: Full Range of Motion, Supple Respiratory: No Accessory Muscle Use, No Respiratory Distress Cardiovascular: Regular Rate, Rhythm, No Edema Gastrointestinal: normal bowel sounds, soft, tenderness Extremity: Normal Capillary Refill, Normal Inspection, Normal Range of Motion Neurologic/Psychiatric: Alert, Oriented x3 Skin: Normal Color, Warm/Dry, Other (Incision C/D/I) Results Lab Laboratory Tests 11/18/18 16:10: Glucometer 334H 11/18/18 17:57: Glucometer 262H 11/18/18 21:16: Glucometer 252H 11/19/18 05:07: Glucometer 252H 11/19/18 11:33: Glucometer 239H Microbiology 11/17/18 MRSA Screen - Final, Complete MRSA not isolated Assessment/Plan Assessment/Plan Assess & Plan/Chief Complaint s/p open repair recurrent ventral abd incisional hernia with mesh with multiple medical comorbidities including diabetes, copd and morbid obesity. ambulate. diabetic diet. resume all home meds. no lifting or exertion for 6 weeks. Will consult medical for DM management. Clinical Quality Measures DVT/VTE Risk/Contraindication: Risk Factor Score Per Nursin RFS Level Per Nursing on Admit: 4+=Very High SUSAN WIN BUILD MASTER Nov 19, 2018 12:19
--- NOTE | 2018-11-19 14:10 | NUR ---
NOTE THAT PT WAS FALING ASLEEP IN MID SENTENCE WITH DR WISDOM -- SHE ORDERED FSBS STAT AND BLOOD GASES-- THIS RN CALLED RT AND ADVISED THEM OF THE BLOOD GAS -- NA GOT FSBA AND IT WAS 248 -- DR WISDOM WAS MADE AWARE
--- NOTE | 2018-11-19 14:30 | Consultation - Hospitalist ---
HPI History of Present Illness: HPI/Chief Complaint I was asked to see patient in consultation For elevated blood sugars. The patient was somnolent and could not stay awake during my conversation and exam. Stat blood sugar was 250. the patient recently had some pain medication and I am concerned that she has CO2 retention with chronic apnea. blood gas is pending. Exam Limitations: clinical condition Date Seen 11/19/18 Attending Physician Wendy Olvera MD PCP Cassius Francois MD Referring Physician miriam Date of Admission Home Medications & Allergies Home Medications Reviewed patient Home Medication Reconciliation performed by pharmacy medication reconciliations staging technician and/or nursing. Patients Allergies have been reviewed. Allergies Allergies Coded Allergies No Known Drug Allergies (Unverified11/16/18) Past Wpcdvbl-Oxnvnd-Cltvty Hx Past Med/Social Hx: Reviewed Nursing Past Med/Soc Hx Patient Social History Marrital Status: single Employed/Student: retired Alcohol Use: Rarely Uses Recreational Drug Use: Yes Drug of Choice: Marijuana Type Used: Cigarettes 2nd Hand Smoke Exposure: Yes Recent Foreign Travel: No Contact w/other who traveled: No Recent Hopitalizations: Yes ( FOR C-DIFF) Recent Infectious Disease Expo: No Immunizations Up To Date Tetanus Booster (TDap): More than 5yrs Date of Pneumonia Vaccine: Apr 12, 2013 Date of Influenza Vaccine: Jan 17, 2018 Seasonal Allergies Seasonal Allergies: No Past Medical History Surgeries: Section, Orthopedic Respiratory: COPD, Emphysema Currently Using BIPAP: Yes Cardiac: High Cholesterol, Hypertension Neurological: Neuropathy 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: No Sexually Transmitted Disease: No HIV/AIDS: No Female 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 Disorders: Denies Genitourinary: Kidney Stones, Renal Failure Gastrointestinal: Chronic Constipation, Diverticulosis Musculoskeletal: Degenerate Disk Disease, Fibromyalgia, Chronic Back Pain Endocrine: Diabetes, Non-Insulin dep Loss of Vision: Denies Hearing Impairment: Denies, Hard of Hearing Psychosocial: Depression History of Blood Disorders: No Adverse Reaction to Blood Guerra: No (N/A) Family History Arthritis 19 FATHER Cardiovascular disease 19 FATHER Completed stroke 19 MOTHER Diabetes mellitus 19 FATHER Hypertension 19 FATHER G8 SISTER Myocardial infarction 19 FATHER Respiratory disorder 19 MOTHER No Pertinent Family Hx Review of Systems ROS-Unable to Obtain: patient keeps falling asleep and won't stay awake Constitutional: no symptoms reported Physical Exam Physical Exam Vital Signs Vital Signs - First Documented 11/17/18 11:42 Temp 98.0 Pulse 100 Resp 18 B/P (MAP) 148/94 (112) Pulse Ox 93 O2 Delivery Nasal Cannula O2 Flow Rate 2.00 Capillary Refill : Height, Weight, BMI Height: 5'3.00" Weight: 295lbs. 3.0oz. 133.632019kg; 52.3 BMI Method:Stated General Appearance: WD/WN, Obese HEENT: PERRL/EOMI Neck: Full Range of Motion, Supple Respiratory: No Accessory Muscle Use, No Respiratory Distress Cardiovascular: Regular Rate, Rhythm, Tachycardia Gastrointestinal: Distended, Tenderness Extremity: Normal Capillary Refill, Normal Inspection, Normal Range of Motion, Pedal Edema Neurologic/Psychiatric: Depressed Affect, Disoriented, Other ( hypersomnolent) Skin: Normal Color, Warm/Dry, Other (Incision C/D/I) Lymphatic: No Adenopathy Results Results/Procedures Labs Patient resulted labs reviewed. Assessment/Plan Assessment and Plan Assess & Plan/Chief Complaint . probable obstructive apnea with hypoventilation hypercapnic respiratory failure compounded by recent narcotic administration- will check stat ABG type II diabetes out of control secondary to noncompliance postop stress and being off her medication morbid obesity postop day number 1 history of hypertension and neuropathy recommend hold discharge until patient is back to baseline and I would not discharge on narcotics. At this juncture it is better for her to run a higher blood sugar then to run low. Dr. francois has been following the patient and she says that he has tried to work with her on her diabetes. She can be discharged on her Januvia and I will add metformin, with close follow-up with Dr. francois. In addition further evaluation for obstructive sleep apnea should be considered if not already done. blood gas reveals hypercapnic respiratory failure. we will begin BiPAP with aggressive pulmonary toilet hold all oral narcotics. discussed with Dr. Olvera Clinical Quality Measures DVT/VTE Risk/Contraindication: Risk Factor Score Per Nursin RFS Level Per Nursing on Admit: 4+=Very High RANJITH WISDOM MD Nov 19, 2018 14:30
[2018-11-19 14:47] LABS: ABG BASE EXCESS 4.2 MMOL/L (-2.5-2.5); ABG OXYGEN SATURATION 92 % (94-100); ABG PO2 65 MMHG (79-93); ABG TCO2 33.4 MMOL/L (21.0-31.0)
[2018-11-19 14:57] LABS: ABG PH 7.25 (7.37-7.43)
[2018-11-19 14:58] LABS: ABG PCO2 71 MMHG (35-45); ALLENS TEST YES-POS; INSPIRED O2 4; PATIENT TEMP 9636; VENTILATOR NO
--- NOTE | 2018-11-19 15:29 | NUR ---
NOTE THAT DR WISDOM IS HOLDING UP ON DC HOME -- PT'S HAD PULLED HER O2 OFF -- BLOOD GASES 1502-- PH 7.[address] WISDOM WAS ADVISED -- -- DR WISDOM WILL HOLD OFF ON THE DC HAME AND SHE CALLED AND ADVISED DR ELIZABETH-- RT TO PUT O2 ON PER BIPAP -- RT ON FLOOR
[2018-11-19 16:00] VITALS: BP 89/58
[2018-11-19] MEDS: metFORMIN 500 MG (GLUCOPHAGE) TAB PO SCH (17:19)
--- NOTE | 2018-11-19 17:20 | NUR ---
PT IS ON BIPAP -- PER ORDERS -- RT VOICED PT WOULD NOT BE EATING DINNER -- HELD SSI AND PO GLUCOPHAGE
[2018-11-19 19:58] LABS: ABG BASE EXCESS 5.7 MMOL/L (-2.5-2.5); ABG OXYGEN SATURATION 94 % (94-100); ABG PO2 78 MMHG (79-93); ABG TCO2 34.3 MMOL/L (21.0-31.0)
[2018-11-19 20:03] LABS: ABG PH 7.27 (7.37-7.43)
[2018-11-19 20:04] LABS: ABG PCO2 72 MMHG (35-45); ALLENS TEST YES-POS; INSPIRED O2 40%; PATIENT TEMP 99.4; VENTILATOR NO
[2018-11-19 21:25] LABS: ABG BASE EXCESS 5.3 MMOL/L (-2.5-2.5); ABG OXYGEN SATURATION 96 % (94-100); ABG PCO2 68 MMHG (35-45); ABG PO2 79 MMHG (79-93); ABG TCO2 33.8 MMOL/L (21.0-31.0)
[2018-11-19 21:26] LABS: ALLENS TEST YES-POS; INSPIRED O2 40%
[2018-11-19 21:27] LABS: PATIENT TEMP 97.7; VENTILATOR NO
[2018-11-19 21:28] LABS: ABG PH 7.29 (7.37-7.43)
[2018-11-19] MEDS: ATORVASTATIN 40 MG (LIPITOR) TABLET PO SCH (21:44)
[2018-11-19 23:53] VITALS: BP 101/67
[2018-11-20] VITALS (15 sets, daily range): BP systolic 71–177; BP diastolic 47–82
[2018-11-20 04:10] LABS: ABG BASE EXCESS 4.8 MMOL/L (-2.5-2.5); ABG OXYGEN SATURATION 99 % (94-100); ABG PCO2 61 MMHG (35-45); ABG PO2 142 MMHG (79-93); ABG TCO2 32.6 MMOL/L (21.0-31.0)
[2018-11-20 04:14] LABS: ABG PH 7.32 (7.37-7.43)
[2018-11-20 04:15] LABS: ALLENS TEST YES-POS; INSPIRED O2 65%; PATIENT TEMP 97.7; VENTILATOR NO
[2018-11-20] MEDS: metFORMIN 500 MG (GLUCOPHAGE) TAB PO SCH ×2 (06:03→19:22)
[2018-11-20] MEDS: inSUlin ASPART (NovoLOG) 1 UNIT/0.01 ML (CHARGE PER UNIT) SC SCH ×4 (06:07→20:36)
--- NOTE | 2018-11-20 07:04 | Pulmonary Consultation ---
History of Present Illness History of Present Illness Date of Consultation 11/20/18 06:59 Time Seen by Provider: 07:08 Date of Admission History of Present Illness 63yo with hx of severe oxygen dependent COPD, morbid obesity presented as direct admit for elective hernia surgery per Dr. Olvera. Pt is now s/o surgery and is more SOB with accessory muscle use. Started requiring BiPAP last night. I am c onsulted for pulmonary management. Pt is currently being monitored on 4th floor. Allergies and Home Medications Allergies Coded Allergies: No Known Drug Allergies (Unverified , 11/16/18) Home Medications Albuterol/Ipratropium 4 Gm Aero, 2 PUFF IH Q4H PRN for SHORTNESS OF BREATH, (Reported) Amlodipine Besylate 10 Mg Tablet, 10 MG PO DAILY, (Reported) Atorvastatin Calcium 40 Mg Tablet, 40 MG PO DAILY, (Reported) Bupropion HCl 150 Mg Tab.er.24h, 150 MG PO DAILY, (Reported) Cholecalciferol (Vitamin D3) 5,000 Unit Capsule, 5,000 UNIT PO DAILY, (Reported) Duloxetine HCl 60 Mg Capsule.dr, 60 MG PO DAILY, (Reported) Fluticasone/Salmeterol 12 Gm Hfa.aer.ad, 0 PUFF IH BID@,20 Prescribed by: ALEIDA LICEA on 12/16/16 1020 Hydrocodone/Acetaminophen 1 Each Tablet, 1-2 TAB PO Q4H Prescribed by: SUSAN WIN on 11/17/18 1032 Lisinopril 20 Mg Tablet, 20 MG PO DAILY, (Reported) Magnesium Oxide 400 Mg Tablet, 400 MG PO DAILY, (Reported) Spurger 3 Polyunsat Fatty Acids 1,000 Mg Cap, 1,000 MG PO DAILY, (Reported) Sitagliptin Phosphate 100 Mg Tablet, 100 MG PO DAILY, (Reported) Past Mwtoeno-Mzjkgm-Ekgknp Hx Past Med/Social Hx: Reviewed Nursing Past Med/Soc Hx Patient Social History Alcohol Use: Rarely Uses Recreational Drug Use: Yes Drug of Choice: Marijuana Type Used: Cigarettes 2nd Hand Smoke Exposure: Yes Recent Foreign Travel: No Contact w/Someone Who Travel: No Recent Infectious Disease Expo: No Recent Hopitalizations: Yes ( FOR C-DIFF) Immunizations Up To Date Tetanus Booster (TDap): More than 5yrs Date of Pneumonia Vaccine: Apr 12, 2013 Date of Influenza Vaccine: Jan 17, 2018 Seasonal Allergies Seasonal Allergies: No Past Medical History Surgeries: Yes (COLON RESECTION, C/S X2, BILAT CTR, c-spine fusion) Section, Orthopedic Respiratory: Yes (BI-PAP, OXYGEN 2L AT NIGHT AND PRN) Sleep Apnea, COPD, Emphysema Currently Using BIPAP: Yes Cardiac: Yes High Cholesterol, Hypertension Neurological: Yes (chronic numbness rt proximal lateral thigh.) Neuropathy 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 Disorders: No Female 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 Disorders: Denies Sexually Transmitted Disease: No HIV/AIDS: No Genitourinary: Yes (STAGE 3 KIDNEY FAILURE) Kidney Stones, Renal Failure Gastrointestinal: Yes (COLON RESECTION, ) Chronic Constipation, Diverticulosis Musculoskeletal: Yes (STENOSIS. chronic neck pain.) Degenerate Disk Disease, Fibromyalgia, Chronic Back Pain Endocrine: Yes Diabetes, Non-Insulin dep HEENT: No (GLASSES, DENTURES) Loss of Vision: Denies Hearing Impairment: Denies, Hard of Hearing Cancer: No Psychosocial: Yes Depression Integumentary: No Blood Disorders: No Adverse Reaction/Blood Tranf: No (N/A) Family Medical History Arthritis 19 FATHER Cardiovascular disease 19 FATHER Completed stroke 19 MOTHER Diabetes mellitus 19 FATHER Hypertension 19 FATHER G8 SISTER Myocardial infarction 19 FATHER Respiratory disorder 19 MOTHER No Pertinent Family Hx Review of Systems Time Seen by Provider: 07:15 Constitutional: Weakness, Malaise; No: Fever, Chills, Sweats, Other Eyes: No: Pain, Vision change, Conjunctivae inflammation, Eyelid inflammation, Other, Redness ENT: Nose congestion; No: Ear pain, Ear discharge, Nose pain, Nose discharge, Mouth pain, Mouth swelling, Throat pain, Throat swelling, Other Respiratory: Cough, Dry, Shortness of breath, SOB with excertion; No: Wheezing, Hemoptysis, Pleuritic Pain, Sputum, Wheezing, Other Cardiovascular: No: Chest Pain, Palpitations, Orthopnea, Paroxysmal Noc. Dyspnea, Edema, Lt Headedness, Other Gastrointestinal: Nausea, Abdominal Pain, Constipation; No: Vomiting, Diarrhea Genitourinary: No Dysuria, No Frequency, No Incontinence, No Hematuria, No Retention, No Other Musculoskeletal: No: other, neck pain, shoulder pain, arm pain, back pain, hand pain, leg pain, foot pain Sepsis Event Evaluation Height, Weight, BMI Height: 5'3.00" Weight: 295lbs. 3.0oz. 133.537451uy; 52.3 BMI Method:Stated Exam Exam Vital Signs Date Time Temp Pulse Resp B/P (MAP) Pulse Ox O2 Delivery O2 Flow Rate FiO2 11/20/18 04:08 100 26 94 65.00 11/20/18 02:17 107 25 93 65.00 11/20/18 02:15 105 30 87 45.00 11/19/18 23:53 97.6 105 21 101/67 (78) 94 NIV Bilevel 40.00 11/19/18 22:50 100 26 95 45.00 11/19/18 20:26 106 26 95 40.00 11/19/18 20:15 94 NIV Bilevel 3.00 11/19/18 19:40 107 16 92 40.00 11/19/18 16:00 95.5 113 20 89/58 (68) 91 NIV Bilevel 40.00 11/19/18 15:32 113 17 92 40.00 11/19/18 09:15 98.0 11/19/18 09:00 Nasal Cannula 3.00 11/19/18 08:00 98.0 92 20 117/61 (79) 94 Nasal Cannula 3.00 11/19/18 07:38 92 Nasal Cannula 4.00 I & O 11/20/18 07:00 Intake Total 990 ml Output Total 625 ml Balance 365 ml Height & Weight Height: 5'3.00" Weight: 295lbs. 3.0oz. 133.846299kc; 52.3 BMI Method:Stated General Appearance: WD/WN, Moderate Distress, Obese HEENT: PERRL/EOMI Neck: Full Range of Motion, Supple Respiratory: No Accessory Muscle Use, No Respiratory Distress, Decreased Breath Sounds Cardiovascular: Regular Rate, Rhythm, No Edema, No Murmur, Normal Peripheral Pulses, Tachycardia Capillary Refill: Less Than 3 Seconds Gastrointestinal: normal bowel sounds, soft, tenderness Extremity: Normal Capillary Refill, Normal Inspection, Normal Range of Motion, Pedal Edema Neurologic/Psychiatric: Depressed Affect, Disoriented, Other ( hypersomnolent) Skin: Normal Color, Warm/Dry, Other (Incision C/D/I) Lymphatic: No Adenopathy Assessment/Plan Assessment/Plan Acute on chronic respiratory failure -SVNS - change to Q 4 scheduled -Currently requiring noninvasive ventilation -Check labs and CXR -Pt may need to be transferred to ICU. Will obtain labs/CXR first. Morbid obesity with OHS -Continue BIpap -recheck ABG DM II S/p open repair of recurrent ventral incisional hernia repair MERCEDES GARNICA DO Nov 20, 2018 07:04
[2018-11-20] MEDS: RT-ALBUTEROL/IPRATROPIUM 3 ML (DUONEB) VIAL IH SCH ×5 (07:37→22:07)
[2018-11-20] MEDS: RT-ADVAIR HFA 115/21 MCG PER PUFF IH SCH ×2 (07:45→22:47)
[2018-11-20 07:58] LABS: HEMOGLOBIN 12.1 G/DL (11.5-16.0); RED CELL DISTRIBUTION WIDTH 15.5 % (10.0-14.5); WHITE BLOOD COUNT 18.8 10^3/uL (4.3-11.0)
[2018-11-20 08:12] LABS: BILIRUBIN,TOTAL 0.4 MG/DL (0.1-1.0); CREATININE SERUM 3.99 MG/DL (0.60-1.30); PHOSPHORUS 5.3 MG/DL (2.3-4.7); POTASSIUM 4.3 MMOL/L (3.6-5.0); TOTAL PROTEIN 6.8 GM/DL (6.4-8.2)
--- NOTE | 2018-11-20 08:48 | Diagnostic Imaging Report ---
Indication: Shortness of breath. Comparison made with prior examination from 12/09/16. Findings: There's cardiomegaly. There is mild venous congestion. There is no pleural effusion or pneumothorax. The mediastinum is unremarkable. Impression: Cardiomegaly and mild central pulmonary venous congestion. Dictated by: Dictated on workstation # [id number]
[2018-11-20] MEDS: DULoxetine 30 MG (CYMBALTA) CAP PO SCH (09:20)
[2018-11-20] MEDS: buPROPion SR 150 MG (WELLBUTRIN SR) TAB PO SCH (09:20)
[2018-11-20] MEDS: lisINopril 20 MG (PRINIVIL) TABLET PO SCH (09:20)
[2018-11-20] MEDS: MAGNESIUM OXIDE (MAG-OX)400 MG TAB PO SCH (09:21)
[2018-11-20] MEDS: VITAMIN D3 5,000 UNITS (CHOLECALCIFEROL ) CAPSULE PO SCH (09:21)
[2018-11-20] MEDS: OMEGA 3 (FISH OIL) 1000 MG CAP PO SCH (09:21)
[2018-11-20] MEDS: amLODIPine 10 MG (NORVASC) TAB PO SCH (09:21)
[2018-11-20] MEDS: LINAGLIPTIN (TRADJENTA) 5 MG TABLET PO SCH (09:21)
--- NOTE | 2018-11-20 10:12 | Progress Note ---
Subjective Date Seen by a Provider: Nov 20, 2018 Time Seen by a Provider: 11:30 Subjective/Events-last exam Patient seen with Dr. Olvera. Patient currently on BIPAP. Does report some abdominal pain with activity and explained to patient that is normal. Tolerating diet. BS still elevated. No fever/chills. Objective Exam Vital Signs Date Time Temp Pulse Resp B/P (MAP) Pulse Ox O2 Delivery O2 Flow Rate FiO2 11/20/18 07:51 89 NIV Bilevel 11/20/18 07:47 94 25 89 55.00 11/20/18 04:08 100 26 94 65.00 11/20/18 02:17 107 25 93 65.00 11/20/18 02:15 105 30 87 45.00 11/19/18 23:53 97.6 105 21 101/67 (78) 94 NIV Bilevel 40.00 11/19/18 22:50 100 26 95 45.00 11/19/18 20:26 106 26 95 40.00 11/19/18 20:15 94 NIV Bilevel 3.00 11/19/18 19:40 107 16 92 40.00 11/19/18 16:00 95.5 113 20 89/58 (68) 91 NIV Bilevel 40.00 11/19/18 15:32 113 17 92 40.00 I & O 11/20/18 07:00 Intake Total 990 ml Output Total 625 ml Balance 365 ml Capillary Refill : General Appearance: No Apparent Distress, WD/WN, Obese Neck: Normal Inspection, Supple Respiratory: No Accessory Muscle Use, No Respiratory Distress Cardiovascular: Regular Rate, Rhythm, No Edema Gastrointestinal: normal bowel sounds, soft, tenderness (Incisional) Extremity: Normal Capillary Refill, Normal Inspection, Normal Range of Motion Neurologic/Psychiatric: Alert, Oriented x3 Skin: Normal Color, Warm/Dry, Other (Incision C/D/I) Results Lab Laboratory Tests 11/19/18 11:33: Glucometer 239H 11/19/18 14:07: Glucometer 248H 11/19/18 14:33: Blood Gas Puncture Site L RADIAL, Blood Gas Patient Temperature 9636, Arterial Blood pH 7.25*L, Arterial Blood Partial Pressure CO2 71*H, Arterial Blood Partial Pressure O2 65L, Arterial Blood HCO3 31H, Arterial Blood Total CO2 33.4H , Arterial Blood Oxygen Saturation 92L, Arterial Blood Base Excess 4.2H, Christiano Test YES-POS, Blood Gas Ventilator Setting NO, Blood Gas Inspired Oxygen 4 11/19/18 15:35: Glucometer 270H 11/19/18 19:46: Blood Gas Puncture Site RIGHT RADIAL, Blood Gas Patient Temperature 99.4, Arterial Blood pH 7.27*L, Arterial Blood Partial Pressure CO2 72*H, Arterial Blood Partial Pressure O2 78L, Arterial Blood HCO3 32H, Arterial Blood Total CO2 34.3H, Arterial Blood Oxygen Saturation 94, Arterial Blood Base Excess 5.7H, Christiano Test YES-POS, Blood Gas Ventilator Setting NO, Blood Gas Inspired Oxygen 40% 11/19/18 21:05: Glucometer 227H 11/19/18 21:15: Blood Gas Puncture Site R RAD, Blood Gas Patient Temperature 97.7, Arterial Blood pH 7.29*L, Arterial Blood Partial Pressure CO2 68H, Arterial Blood Partial Pressure O2 79, Arterial Blood HCO3 32H, Arterial Blood Total CO2 33.8H, Arterial Blood Oxygen Saturation 96, Arterial Blood Base Excess 5.3H, Christiano Test YES-POS, Blood Gas Ventilator Setting NO, Blood Gas Inspired Oxygen 40% 11/20/18 03:55: Blood Gas Puncture Site RIGHT RADIAL, Blood Gas Patient Temperature 97.7, Arterial Blood pH 7.32*L, Arterial Blood Partial Pressure CO2 61H, Arterial Blood Partial Pressure O2 142H, Arterial Blood HCO3 31H, Arterial Blood Total CO2 32.6H, Arterial Blood Oxygen Saturation 99, Arterial Blood Base Excess 4.8H, Christiano Test YES-POS, Blood Gas Ventilator Setting NO, Blood Gas Inspired Oxygen 65% 11/20/18 05:08: Glucometer 212H 11/20/18 07:20: White Blood Count 18.8H, Red Blood Count 4.34L, Hemoglobin 12.1, Hematocrit 40, Mean Corpuscular Volume 92, Mean Corpuscular Hemoglobin 28, Mean Corpuscular Hemoglobin Concent 30L, Red Cell Distribution Width 15.5H, Platelet Count 251, Mean Platelet Volume 10.0, Sodium Level 137, Potassium Level 4.3, Chloride Level 97L, Carbon Dioxide Level 23, Anion Gap 17H, Blood Urea Nitrogen 40H, Creatinine 3.99H, Estimat Glomerular Filtration Rate 11, BUN/Creatinine Ratio 10, Glucose Level 223H, Calcium Level 9.0, Corrected Calcium 9.8, Phosphorus Level 5.3H, Magnesium Level 2.0, Total Bilirubin 0.4, Aspartate Amino Transf (AST/SGOT) 62H, Alanine Aminotransferase (ALT/SGPT) 19, Alkaline Phosphatase 91, B-Type Natriuretic Peptide 39.2, Total Protein 6.8, Albumin 3.0L Microbiology 11/17/18 MRSA Screen - Final, Complete MRSA not isolated Assessment/Plan Assessment/Plan Assess & Plan/Chief Complaint s/p open repair recurrent ventral abd incisional hernia with mesh with multiple medical comorbidities including diabetes, copd and morbid obesity. ambulate. diabetic diet. resume all home meds. no lifting or exertion for 6 weeks. continue with medical management, once patient is medically cleared to be discharged, then we will discharge patient home. Clinical Quality Measures DVT/VTE Risk/Contraindication: Risk Factor Score Per Nursin RFS Level Per Nursing on Admit: 4+=Very High SUSAN WIN SOFTWARE TEAM LEADER Nov 20, 2018 10:12
[2018-11-20 10:56] LABS: ABG BASE EXCESS 2.9 MMOL/L (-2.5-2.5); ABG OXYGEN SATURATION 98 % (94-100); ABG PCO2 70 MMHG (35-45); ABG PO2 93 MMHG (79-93); ABG TCO2 31.9 MMOL/L (21.0-31.0)
[2018-11-20 10:57] LABS: ALLENS TEST YES-POS; PATIENT TEMP 97.6; VENTILATOR NO
[2018-11-20 10:58] LABS: ABG PH 7.25 (7.37-7.43)
[2018-11-20] MEDS ORDERED: PIPERACILLIN/TAZOBACTAM (BULK) 4.5 GM in NS (IVPB) 100 ML IV NR (11:00)
--- NOTE | 2018-11-20 11:08 | NUR ---
Dr. Kaur notified of the ABG - orders to transfer patient to ICU and have respitory therapy call him with bipap settings - Tima JACKSON notified
--- NOTE | 2018-11-20 11:33 | NUR ---
Pt arrived to unit at this time. RNs Rema and Edgar at bedside upon pt arrival. Pt placed on ICU monitor and placed on Bipap per RT Tima. Dr. Kaur notified of pt's arrival to unit at this time. 1200 Gonzalez placed at this time. 1205 20G to Right Hand placed by JOHNIE Hodgson
--- NOTE | 2018-11-20 11:45 | NUR ---
Bedside report received from JOHNIE Kelly at this time.
--- NOTE | 2018-11-20 12:24 | NUR ---
patient transfered to icu Erica JETT given bedside report
--- NOTE | 2018-11-20 13:19 | Progress Note - Hospitalist ---
Subjective HPI/CC On Admission Date Seen by Provider: Nov 20, 2018 Time Seen by Provider: 13:00 I was asked to see patient in consultation For elevated blood sugars. The patient was somnolent and could not stay awake during my conversation and exam. Stat blood sugar was 250. the patient recently had some pain medication and I am concerned that she has CO2 retention with chronic apnea. blood gas is pending. Subjective/Events-last exam patient was transferred to the ICU by Dr. Sanon for worsening hypercapnic respiratory failure. the patient is much more awake today and able to give additional history. She is on BiPAP and able to be understood a little. She complains primarily of her arthritis. Review of Systems Pulmonary: Dyspnea Objective Exam Vital Signs Vital Signs Date Time Temp Pulse Resp B/P (MAP) Pulse Ox O2 Delivery O2 Flow Rate FiO2 11/20/18 12:42 101 11/20/18 11:45 20 97/61 (73) 95 NIV Bilevel 40.00 11/20/18 08:00 97.0 Capillary Refill : General Appearance: Mild Distress HEENT: Other Neck: Limited Range of Motion Respiratory: Decreased Breath Sounds Cardiovascular: Regular Rate, Rhythm, No Gallop Gastrointestinal: Normal Bowel Sounds, Distended Extremity: No Calf Tenderness Neurologic/Psychiatric: Alert Skin: Damp Results/Procedures Lab Laboratory Tests 11/20/18 07:20 Patient resulted labs reviewed. Assessment/Plan Assessment and Plan Assess & Plan/Chief Complaint . probable obstructive apnea with hypoventilation hypercapnic respiratory failure compounded by recent narcotic administration and abdominal surgery- appreciate Dr. Kaur's help- continue ICU monitoring type II diabetes out of control secondary to noncompliance postop stress and being off her medication morbid obesity postop day number 2 history of hypertension and neuropathy acute on chronic renal failure- monitor creatinine Clinical Quality Measures DVT/VTE Risk/Contraindication: Risk Factor Score Per Nursin RFS Level Per Nursing on Admit: 4+=Very High RANJITH WISDOM MD Nov 20, 2018 13:19
[2018-11-20] MEDS ORDERED: NS IV 1000 ML 1,000 ML ONE ×3 (13:33→14:41)
[2018-11-20 14:27] LABS: ABG BASE EXCESS 1.8 MMOL/L (-2.5-2.5); ABG OXYGEN SATURATION 91 % (94-100); ABG PCO2 67 MMHG (35-45); ABG PO2 62 MMHG (79-93); ABG TCO2 30.5 MMOL/L (21.0-31.0)
[2018-11-20 14:29] LABS: ABG PH 7.25 (7.37-7.43); ALLENS TEST YES-POS; VENTILATOR NO
[2018-11-20] MEDS ORDERED: PROPOFOL DRIP (ICU) 100 ML IV ONE (14:36)
[2018-11-20] MEDS ORDERED: proPOfol 200 MG/20 ML (DIPRIVAN) VIAL IV ONE (14:36)
--- NOTE | 2018-11-20 14:40 | NUR ---
Dr. Kaur notified of blood gas results at this time. New orders received to obtain consent for Intubation, central line and arterial line placement at this time. dry starch supervisor notified to call in Anesthesia at this time. Dr. Olvera also called at this time for central line placement. Will await HAMMERSMITH HELPER and physician arrival at this time.
--- NOTE | 2018-11-20 15:00 | NUR ---
Gretta Haney CRNA arrived at bedside at this time. Pt sedated with 5mg of Versed, 50mg of Propofol and Succinylcholine 100mg at this time given by MANAGER HOSPICE. 1503 Vocal cords visualized by MANAGER HOSPICE and 8.0 ETT placed at 22 @ lip. Color changed noted and starla breath sounds auscultated. 1512 Propofol gtt started at this time per Dr. Kaur. 50mg of Rocuronium given by MANAGER HOSPICE at this time and pt prepared for arterial line placement.
[2018-11-20] MEDS ORDERED: fentaNYL INJECTION 1,250 MCG in NORMAL SALINE 250 ML INJ PRN (15:30)
[2018-11-20] MEDS ORDERED: PROPOFOL DRIP (ICU) 100 ML IV SCH (15:30)
[2018-11-20] MEDS ORDERED: HALOPERIDOL 5 MG/ML (HALDOL) AMP IV PRN (15:30)
[2018-11-20] MEDS: LACTATED RINGERS 1,000 ML IV SCH (15:38)
[2018-11-20] MEDS: NS IV 1000 ML 1,000 ML IV SCH ×2 (15:44→16:45)
[2018-11-20] MEDS: DEXMEDETOMIDINE INJECTION 1,000 MCG in NS (IVPB) 250 ML IV PRN ×4 (15:53→23:37)
[2018-11-20] MEDS: ENOXAPARIN 30 MG/0.3 ML (LOVENOX) SYR SC SCH (15:54)
[2018-11-20] MEDS ORDERED: NOREPINEPHRINE 4 MG/4 ML (LEVOPHED) AMP IV ONE (16:02)
[2018-11-20] MEDS ORDERED: D5W IV SOLUTION (EXCEL) 250 ML IV ONE (16:05)
[2018-11-20] MEDS ORDERED: NS (IVPB) 250 ML ONE (16:10)
[2018-11-20] MEDS ORDERED: NS IV 1000 ML 1,000 ML IV SCH (16:15)
--- NOTE | 2018-11-20 16:26 | NUR ---
Dr. Olvera at bedside at this time for central line placement. Levophed started also during this time per Dr. Kaur's orders due to hypotension post intubation. 1638 Central line successfully placed by Dr. Olvera. 1655 Placement of central line, and ETT verified by Dr. Olvera per chest xray at this time.
[2018-11-20] MEDS: NOREPINEPHRINE 4 MG in NS (IVPB) 250 ML IV SCH ×2 (16:27→18:07)
[2018-11-20 16:28] LABS: ABG BASE EXCESS 0.1 MMOL/L (-2.5-2.5); ABG OXYGEN SATURATION 90 % (94-100); ABG PCO2 57 MMHG (35-45); ABG PO2 56 MMHG (79-93); ALLENS TEST YES-POS; PATIENT TEMP 97.4; VENTILATOR YES
[2018-11-20 16:30] LABS: ABG PH 7.28 (7.37-7.43); INSPIRED O2 35%
--- NOTE | 2018-11-20 16:34 | Anesthesia-Procedure Note ---
Procedures/Interventions Procedure Start/Stop/Diagnosis Date of Procedure: Nov 20, 2018 Start Time: 14:49 Referring Physician: Natasha Brief History Called to ICU 8 for urgent, not emergent, intubation. RT at bedside assisting respirations after BiPap removed. History obtained from RN. MOHSEN and K+ level WNL. I introduced myself to the patient and explained what I was going to do. She stated she understood. NIBP 90-100 systolic, thus I plan to used Versed and less Propofol for intubation. Grade 2 view with Dawson X blade. 8.0 ett placed, as that is what Dr. Kaur requested. Bilateral breath sounds and chest rise. 22cm at lip. Tima, RT at bedside and received vent orders per Dr. Kaur. Stop Time: 15:12 Intubation RSI: Yes 100% pre-Ox, [id number]: Yes Videoscope used: Yes (Dawson) Grade View: 2 Medications: Propofol (50mg), Succinylcholine (100mg), Versed (5mg) Mask Ventilation: positive Positive End Tide CO2: Yes Breath Sounds after Intubation: bilateral-equal ETT Securred @ (cm): 22 Intubated with ease: Yes Intubation Complications: no complications Post Intubation Xray-done: Yes NAGA VERDE CRNA Nov 20, 2018 16:34
[2018-11-20] MEDS ORDERED: NOREPINEPHRINE 8 MG in NS (IVPB) 250 ML IV SCH (16:45)
[2018-11-20] MEDS ORDERED: PIPERACILLIN/TAZOBACTAM (BULK) 4.5 GM in NS (IVPB) 100 ML IV SCH (17:00)
--- NOTE | 2018-11-20 17:10 | Anesthesia-Procedure Note ---
Procedures/Interventions Procedure Start/Stop/Diagnosis Date of Procedure: Nov 20, 2018 Start Time: 16:40 Referring Physician: Natasha Preprocedural Diagnosis: hypotension Brief History Asked to place arterial line on patient that I recently intubated. Made several attempts when NIBP < 70 SBP without success, all attempts on left radial. After starting patient on levophed, I was able to place a 20g arterial line in right radial with opsite securing and good waveform noted. RN at bedside to assist. Will be available for further consultation. Stop Time: 17:12 NAGA VERDE CRNA Nov 20, 2018 17:09
--- NOTE | 2018-11-20 17:26 | Diagnostic Imaging Report ---
INDICATION: Endotracheal tube and central line placement. COMPARISON: Earlier the same day. EXAMINATION: Single frontal radiographic view of the chest was obtained. FINDINGS: Indwelling endotracheal tube with tip below the clavicular heads and approximately 2 cm above the thomas. Gastric tube is seen coiled in the stomach. Left-sided central venous catheter is also seen with tip terminating likely within the high SVC, although the tip is largely obscured. Cardiac silhouette is borderline prominent. Pulmonary vasculature is within normal limits. Left apex is not included on this exam, but otherwise visualized portions of the lungs are clear. There is no large effusion or pneumothorax. IMPRESSION: 1. Lines and tubes as above. 2. Mild prominence of the cardiac silhouette, but no evidence of overt failure or focal infiltrate. Findings may be exaggerated by portable technique. Dictated by: Dictated on workstation # [id number]
--- NOTE | 2018-11-20 18:12 | NUR ---
Dr. Kaur on phone with RN at this time. RN expressed concerns with ventilator and results of ABG given to Dr. Kaur at this time. While currently on the phone with Dr. Kaur, RN received orders to change vent settings at this time per physician request. TV increased to 500 per request and alarm for peak pressure adjusted per physician request at this time. Will update RT upon rounding.
--- NOTE | 2018-11-20 18:40 | NUR ---
Pt's son, TOMAS, and pt's [id number], Polina, at bedside at this time. Updates provided to multiple family members at bedside at this time. Will continue to monitor.
--- NOTE | 2018-11-20 18:47 | OPERATIVE REPORT ---
DATE OF SERVICE: 11/20/2018 ATTENDING PRIMARY CARE PHYSICIAN: Dr. Francois. PREOPERATIVE DIAGNOSIS: Respiratory failure status post recurrent ventral abdominal incisional hernia repair with mesh. POSTOPERATIVE DIAGNOSIS: Respiratory failure status post recurrent ventral abdominal incisional hernia repair with mesh. PROCEDURE: Placement of left subclavian central venous catheter. SURGEON: Wendi Elizabeth MD ANESTHESIA: Local. ESTIMATED BLOOD LOSS: Minimal. DISPOSITION: The patient tolerated the procedure well. INDICATIONS: The patient is a 63-year-old female with multiple medical comorbidities including COPD, sleep apnea, hypertension, hypercholesterolemia who has also been noncompliant. She also is a smoker and she has had multiple incisional hernia repairs and she did develop another one, which was symptomatic and wanted this repaired even though her risk of recurrence and other complications were high. During her stay, she did develop decreased oxygen saturations and serial arterial blood glasses were drawn, which did show worsening respiratory status and she was eventually intubated. PROCEDURE IN DETAIL: The patient was brought to thr ICU. The left neck and chest were prepped and draped in standard surgical fashion. 1% lidocaine was then used to anesthetize overlying skin to the subclavian region. The left subclavian vein was then cannulated withdrawing a venous blood. The guidewire was then inserted without any resistance. The cannulating needle removed and a small skin incision made using a 11 blade. A tract was then created using a venous dilator. Through this opening, a triple lumen central venous catheter was placed over the guidewire using the Seldinger technique. The guidewire was removed and all three ports kavya venous blood and saline pushed in without any resistance. The catheter was then sutured to the skin using 3-0 silk interrupted sutures. Catheter was then covered with antibacterial disc followed by Op-Site. The patient tolerated the procedure well. We will get a post-procedure chest x-ray and once confirmation of placement of the catheter, it may be accessed and use any time. Job ID: [id number] DocumentID: [id number] Dictated Date: 11/20/2018 16:58:53 Insurance Rater Date: 11/20/2018 18:46:31 Dictated By: WENDI ELIZABETH MD [facility]
[2018-11-20 20:29] LABS: ABG OXYGEN SATURATION 94 % (94-100); ABG PCO2 45 MMHG (35-45); ABG PO2 64 MMHG (79-93); ABG TCO2 24.4 MMOL/L (21.0-31.0)
[2018-11-20 20:30] LABS: ALLENS TEST ART LINE; INSPIRED O2 35%; PATIENT TEMP 98.7; VENTILATOR YES
[2018-11-20 20:31] LABS: ABG PH 7.33 (7.37-7.43)
[2018-11-20 21:01] LABS: BILIRUBIN,URINE NEGATIVE (NEGATIVE); COLOR,URINE YELLOW; GLUCOSE, URINE (UA) NEGATIVE (NEGATIVE); KETONES,URINE 1+ (NEGATIVE); LEUKOCYTE ESTERASE ,URINE 3+ (NEGATIVE); NITRITE,URINE NEGATIVE (NEGATIVE); PH,URINE 5 (5-9); PROTEIN,URINE 2+ (NEGATIVE); UROBILINOGEN,URINE NORMAL (NORMAL)
[2018-11-20] MEDS: ATORVASTATIN 40 MG (LIPITOR) TABLET PO SCH (21:05)
[2018-11-20 21:06] LABS: CLARITY,URINE SL CLOUDY
[2018-11-20 21:07] LABS: AMORPHOUS SEDIMENT,UR FEW AMOR URATES /LPF; BACTERIA,URINE FEW /HPF; RBC,URINE RARE /HPF
[2018-11-21] VITALS (30 sets, daily range): BP systolic 69–157; BP diastolic 32–105
[2018-11-21] MEDS: inSUlin ASPART (NovoLOG) 1 UNIT/0.01 ML (CHARGE PER UNIT) SC SCH ×5 (00:16→21:20)
[2018-11-21] MEDS: RT-ALBUTEROL/IPRATROPIUM 3 ML (DUONEB) VIAL IH SCH ×6 (01:00→22:27)
[2018-11-21] MEDS: DEXMEDETOMIDINE INJECTION 1,000 MCG in NS (IVPB) 250 ML IV PRN ×3 (02:11→21:21)
[2018-11-21] MEDS: PROPOFOL DRIP (ICU) 100 ML IV SCH ×5 (02:11→23:08)
[2018-11-21 03:18] LABS: ABG OXYGEN SATURATION 92 % (94-100); ABG PCO2 45 MMHG (35-45); ABG PH 7.36 (7.37-7.43); ABG PO2 61 MMHG (79-93); ABG TCO2 25.9 MMOL/L (21.0-31.0)
[2018-11-21 03:19] LABS: HEMOGLOBIN 11.9 G/DL (11.5-16.0); RED CELL DISTRIBUTION WIDTH 14.9 % (10.0-14.5); WHITE BLOOD COUNT 14.5 10^3/uL (4.3-11.0)
[2018-11-21 03:29] LABS: ALLENS TEST ART LINE; INSPIRED O2 35%; PATIENT TEMP 99.4; VENTILATOR YES
[2018-11-21] MEDS: MAGNESIUM 1 GM/100 ML IVPB 100 ML IV SCH ×3 (03:35→04:35)
--- NOTE | 2018-11-21 03:37 | NUR ---
0305--- NOTIFIED E-ICU AT THIS TIME DUE TO PT HAVING INCREASED PVC'S. SEE ORDER HISTORY.
[2018-11-21 03:43] LABS: CALCIUM 8.3 MG/DL (8.5-10.1); CREATININE SERUM 2.74 MG/DL (0.60-1.30); MAGNESIUM 1.8 MG/DL (1.8-2.4)
[2018-11-21] MEDS: POTASSIUM CL 10MEQ/50ML IVPB 50 ML IV SCH (03:49)
[2018-11-21] MEDS: KCL 20 MEQ TAB (K-DUR) PO SCH (03:50)
[2018-11-21] MEDS: LACTATED RINGERS 1,000 ML IV SCH ×3 (05:23→17:12)
--- NOTE | 2018-11-21 06:19 | Pulmonary Progress Note ---
Subjective Time Seen by a Provider: 07:20 Subjective/Events-last exam Pt was intubated last night secondary to worsening SOB and accessory muscle use. Sepsis Event Evaluation Height, Weight, BMI Height: 5'3.00" Weight: 295lbs. 3.0oz. 133.991871rg; 52.3 BMI Method:Stated Exam Exam Vital Signs Date Time Temp Pulse Resp B/P (MAP) Pulse Ox O2 Delivery O2 Flow Rate FiO2 11/21/18 06:00 98.7 99 24 105/56 (72) 93 Mechanical Ventilator 35.00 11/21/18 05:00 104 23 107/66 (80) 93 Mechanical Ventilator 35.00 11/21/18 04:00 100 Mechanical Ventilator 35 11/21/18 04:00 107 24 112/71 (85) 93 Mechanical Ventilator 35.00 11/21/18 03:00 116 23 127/71 (89) 91 Mechanical Ventilator 35.00 11/21/18 02:11 Mechanical Ventilator 11/21/18 02:00 107 24 121/73 (89) 92 Mechanical Ventilator 35.00 11/21/18 01:00 106 11/21/18 01:00 93 24 94 35 11/21/18 01:00 105 23 151/73 (99) 91 Mechanical Ventilator 35.00 11/21/18 00:00 100 Mechanical Ventilator 35 11/21/18 00:00 105 23 131/69 (89) 100 Mechanical Ventilator 35.00 11/20/18 23:00 102 23 117/61 (79) 100 Mechanical Ventilator 35.00 11/20/18 22:07 91 24 98 35 11/20/18 22:00 101 21 107/58 (74) 95 Mechanical Ventilator 35.00 11/20/18 21:00 104 21 114/63 (80) 94 Mechanical Ventilator 35.00 11/20/18 20:00 100 Mechanical Ventilator 35 11/20/18 20:00 105 21 111/63 (79) 94 Mechanical Ventilator 35.00 11/20/18 19:30 102 22 94 30 11/20/18 19:00 84 22 127/61 (83) 100 Mechanical Ventilator 35.00 11/20/18 19:00 84 11/20/18 18:00 99 21 128/56 (80) 92 Mechanical Ventilator 50.00 11/20/18 18:00 92 Mechanical Ventilator 35 11/20/18 17:00 103 21 177/69 (105) 92 Mechanical Ventilator 50.00 11/20/18 16:15 97.4 11/20/18 16:00 105 22 94 Mechanical Ventilator 50.00 11/20/18 15:35 98 22 93 30 11/20/18 15:00 101 16 109/61 (77) 99 NIV Bilevel 40.00 11/20/18 14:19 98 30 95 30.00 11/20/18 14:00 101 11 107/60 (76) 92 NIV Bilevel 40.00 11/20/18 14:00 NIV Bilevel 11/20/18 13:00 105 12 71/47 (55) 90 NIV Bilevel 40.00 11/20/18 12:42 101 11/20/18 12:00 105 12 84/49 (61) 89 NIV Bilevel 40.00 11/20/18 11:45 104 20 97/61 (73) 95 NIV Bilevel 40.00 11/20/18 10:43 95 26 89 55.00 11/20/18 09:00 NIV Bilevel 11/20/18 08:00 97.0 95 22 172/82 (112) 91 NIV Bilevel 40.00 11/20/18 07:51 89 NIV Bilevel 11/20/18 07:47 94 25 89 55.00 I & O 11/21/18 07:00 Intake Total 5814 ml Output Total 1700 ml Balance 4114 ml Height & Weight Height: 5'3.00" Weight: 295lbs. 3.0oz. 133.167452dh; 52.3 BMI Method:Stated General Appearance: Mild Distress, Other (Currently sedated on vent) HEENT: PERRL/EOMI, Pharynx Normal, Other Neck: Limited Range of Motion Respiratory: Decreased Breath Sounds Cardiovascular: Regular Rate, Rhythm, No Gallop Capillary Refill: Less Than 3 Seconds Gastrointestinal: normal bowel sounds, soft, no organomegaly, no pulsatile mass Extremity: No Calf Tenderness Skin: Damp Lymphatic: No Adenopathy Results Lab Laboratory Tests 11/20/18 07:20 11/21/18 03:05 Assessment/Plan Assessment/Plan Acute on chronic respiratory failure -pT was intubated yesterday -SVNS - change to Q 4 scheduled -Check labs and CXR -Solumedrol 40 IV Q 6 Hypotensive -Currently Levophed 0.01 -Will give liter bolus of NS Morbid obesity with OHS DM II S/p Hernia repair surgery -Dr. Olvera following Hx of severe COPD oxygen dependent Acute on chronic renal failure -Monitor -Increase IVF -Hold ACEI for now -Hold metformin Elevated troponin-- probably secondary to respiratory failure -Check echo -Consult cardiology MERCEDES GARNICA DO Nov 21, 2018 06:19
[2018-11-21] MEDS ORDERED: LACTATED RINGERS 1,000 ML IV ONE (06:30)
[2018-11-21] MEDS ORDERED: methylPREDNISolone 40 MG/ML (Solu-MEDROL) VIAL IV SCH (06:34)
[2018-11-21] MEDS: PIPERACILLIN/TAZOBACTAM (BULK) 4.5 GM in NS (IVPB) 100 ML IV SCH ×2 (07:55→21:22)
[2018-11-21] MEDS ORDERED: SODIUM PHOSPHATE INJ 30 MM in NS (IVPB) 250 ML IV ONE (08:00)
[2018-11-21] MEDS: OMEGA 3 (FISH OIL) 1000 MG CAP PO SCH (08:11)
[2018-11-21] MEDS: methylPREDNISolone 40 MG/ML (Solu-MEDROL) VIAL IV SCH ×3 (08:11→17:12)
[2018-11-21] MEDS: PANTOPRAZOLE 40 MG (PROTONIX) VIAL IV SCH (08:11)
[2018-11-21] MEDS: amLODIPine 10 MG (NORVASC) TAB PO SCH (08:11)
[2018-11-21] MEDS: DULoxetine 30 MG (CYMBALTA) CAP PO SCH (08:11)
[2018-11-21] MEDS: MAGNESIUM OXIDE (MAG-OX)400 MG TAB PO SCH (08:11)
[2018-11-21] MEDS: VITAMIN D3 5,000 UNITS (CHOLECALCIFEROL ) CAPSULE PO SCH (08:12)
[2018-11-21] MEDS: LINAGLIPTIN (TRADJENTA) 5 MG TABLET PO SCH (08:12)
[2018-11-21] MEDS: buPROPion SR 150 MG (WELLBUTRIN SR) TAB PO SCH (08:12)
--- NOTE | 2018-11-21 08:48 | Diagnostic Imaging Report ---
INDICATION: Respiratory difficulty. Comparison is made with prior examination from 11/20/18. FINDINGS: There is cardiomegaly. There is some venous congestion. There are patchy bibasilar infiltrates. There is no pleural effusion or pneumothorax. Lines and tubes are in satisfactory position. IMPRESSION: 1. Patchy bibasilar infiltrates. 2. Cardiomegaly and some central pulmonary venous congestion. Dictated by: Dictated on workstation # [id number]
--- NOTE | 2018-11-21 09:45 | Progress Note - Hospitalist ---
Subjective HPI/CC On Admission Date Seen by Provider: Nov 21, 2018 Time Seen by Provider: 09:00 I was asked to see patient in consultation For elevated blood sugars. The patient was somnolent and could not stay awake during my conversation and exam. Stat blood sugar was 250. the patient recently had some pain medication and I am concerned that she has CO2 retention with chronic apnea. blood gas is pending. Subjective/Events-last exam Wean is planned for tomorrow Remains intubated Only on a small amount of pressor therapy but does because hypotensive quickly Oxygen and CPAP at home but is not compliant Focused Exam Lactate Level 11/21/18 07:10: Lactic Acid Level 1.31 Lactic Acid Level Objective Exam Vital Signs Vital Signs Date Time Temp Pulse Resp B/P (MAP) Pulse Ox O2 Delivery O2 Flow Rate FiO2 11/21/18 20:00 93 Mechanical Ventilator 45 11/21/18 20:00 84 24 136/63 (87) 45.00 11/21/18 19:22 98.4 Capillary Refill : Less Than 3 Seconds General Appearance: No Apparent Distress, WD/WN, Chronically ill, Obese, Other (intubated and sedated) Respiratory: Lungs Clear, Normal Breath Sounds Skin: Normal Color, Warm/Dry Results/Procedures Lab Laboratory Tests 11/21/18 03:05 Patient resulted labs reviewed. Assessment/Plan Assessment and Plan Assess & Plan/Chief Complaint Assessment: VDRF Obesity hypoventilation syndrome Non-compliance Smoker COPD Plan: Monitor closely Vent dependence Diagnosis/Problems Diagnosis/Problems (1) Ventilator dependence Status: Acute (2) Obesity hypoventilation syndrome Status: Chronic (3) COPD (chronic obstructive pulmonary disease) Status: Chronic Qualifiers: COPD type: unspecified COPD Qualified Codes: J44.9 - Chronic obstructive pulmonary disease, unspecified (4) Smoker Status: Chronic Clinical Quality Measures DVT/VTE Risk/Contraindication: Risk Factor Score Per Nursin RFS Level Per Nursing on Admit: 4+=Very High ALEIDA LICEA DO Nov 21, 2018 09:45
--- NOTE | 2018-11-21 09:59 | Consultation-Cardiology ---
HPI-Cardiology Cardiology Consultation Date of Consultation 11/21/18 Date of Admission Time Seen by Provider: 09:51 Indication: elevated troponin HPI 63 years old lady with history of tobaccoism, COPD and morbid obesity, underwent ventral hernia repair on November 17, 2018, postoperatively had worsening of her shortness of breath, resulted in intubation yesterday. She is currently sedated and intubated, unable to provide any history, history obtained by interviewing her family members and reviewing her records. She did not have previous cardiac history although in the remote past he was told that she had congestive heart failure, no previous cardiac catheterization or stenting. Had history of shortness of breath and disabled from her underlying lung disease. Home Medications & Allergies Allergies: Coded Allergies: No Known Drug Allergies (Unverified , 11/16/18) Home Medication List Reviewed: Yes MOT-Bbmznd-Ueytma Hx Patient Social History Marital Status: single Employed/Student: unemployed, retired Alcohol Use: Rarely Uses Recreational Drug Use: Yes Drug of Choice: Marijuana Type Used: Cigarettes 2nd Hand Smoke Exposure: Yes Recent Foreign Travel: No Recent Infectious Disease Expo: No Recent Hopitalizations: Yes ( FOR C-DIFF) Immunizations Up To Date Tetanus Booster (TDap): More than 5yrs Date of Pneumonia Vaccine: Apr 12, 2013 Date of Influenza Vaccine: Jan 17, 2018 Past Medical History discussed below Family Medical History Significant Family History: No Pertinent Family Hx Family History: Arthritis 19 FATHER Cardiovascular disease 19 FATHER Completed stroke 19 MOTHER Diabetes mellitus 19 FATHER Hypertension 19 FATHER G8 SISTER Myocardial infarction 19 FATHER Respiratory disorder 19 MOTHER Review of Systems-General Review of Systems Constitutional: see HPI, other (intubated and sedated, unable to provide review of systems) EENTM: see HPI Respiratory: see HPI Cardiovascular: see HPI Gastrointestinal: see HPI Genitourinary: see HPI Musculoskeletal: see HPI Skin: see HPI Psychiatric/Neurological: See HPI Reviewed Test Results Reviewed Test Results Lab Laboratory Tests Test 11/20/18 10:45 11/20/18 11:14 11/20/18 14:21 11/20/18 16:25 Range/Units Blood Gas Puncture Site RR R RAD RRAD Blood Gas Patient Temperature 97.6 98.0 97.4 Arterial Blood pH 7.25 *L 7.25 *L 7.28 *L 7.37-7.43 Arterial Blood Partial Pressure CO2 70 H 67 H 57 H 35-45 MMHG Arterial Blood Partial Pressure O2 93 62 L 56 L 79-93 MMHG Arterial Blood HCO3 30 H 29 H 26 23-27 MMOL/L Arterial Blood Total CO2 31.9 H 30.5 28.0 21.0-31.0 MMOL/L Arterial Blood Oxygen Saturation 98 91 L 90 L 94-100 % Arterial Blood Base Excess 2.9 H 1.8 0.1 -2.5-2.5 MMOL/L Christiano Test YES-POS YES-POS YES-POS Blood Gas Ventilator Setting NO NO YES Blood Gas Inspired Oxygen 55% NA 35% Glucometer 239 H 70-110 MG/DL Test 11/20/18 17:57 11/20/18 20:20 11/20/18 20:21 11/20/18 20:55 Range/Units Glucometer 238 H 298 H 70-110 MG/DL Blood Gas Puncture Site L SIGRID Blood Gas Patient Temperature 98.7 Arterial Blood pH 7.33 *L 7.37-7.43 Arterial Blood Partial Pressure CO2 45 35-45 MMHG Arterial Blood Partial Pressure O2 64 L 79-93 MMHG Arterial Blood HCO3 23 23-27 MMOL/L Arterial Blood Total CO2 24.4 21.0-31.0 MMOL/L Arterial Blood Oxygen Saturation 94 94-100 % Arterial Blood Base Excess -2.0 -2.5-2.5 MMOL/L Christiano Test ART LINE Blood Gas Ventilator Setting YES Blood Gas Inspired Oxygen 35% Urine Color YELLOW Urine Clarity SL CLOUDY Urine pH 5 5-9 Urine Specific [place] 1.010 L 1.016-1.022 Urine Protein 2+ H NEGATIVE Urine Glucose (UA) NEGATIVE NEGATIVE Urine Ketones 1+ H NEGATIVE Urine Nitrite NEGATIVE NEGATIVE Urine Bilirubin NEGATIVE NEGATIVE Urine Urobilinogen NORMAL NORMAL MG/DL Urine Leukocyte Esterase 3+ H NEGATIVE Urine RBC (Auto) 5+ H NEGATIVE Urine RBC RARE /HPF Urine WBC 5-10 H /HPF Urine Crystals PRESENT H /LPF Urine Amorphous Sediment FEW MONI URATES H /LPF Urine Bacteria FEW H /HPF Urine Casts PRESENT /LPF Urine Granular Casts 2-5 H /LPF Urine Mucus NEGATIVE /LPF Urine Culture Indicated YES Test 11/21/18 00:10 11/21/18 03:05 11/21/18 07:10 Range/Units Glucometer 239 H 70-110 MG/DL White Blood Count 14.5 H 4.3-11.0 10^3/uL Red Blood Count 4.16 L 4.35-5.85 10^6/uL Hemoglobin 11.9 11.5-16.0 G/DL Hematocrit 37 35-52 % Mean Corpuscular Volume 89 80-99 FL Mean Corpuscular Hemoglobin 29 25-34 PG Mean Corpuscular Hemoglobin Concent 32 32-36 G/DL Red Cell Distribution Width 14.9 H 10.0-14.5 % Platelet Count 255 130-400 10^3/uL Mean Platelet Volume 10.0 7.4-10.4 FL Blood Gas Puncture Site LEFT RADIAL Blood Gas Patient Temperature 99.4 Arterial Blood pH 7.36 L 7.37-7.43 Arterial Blood Partial Pressure CO2 45 35-45 MMHG Arterial Blood Partial Pressure O2 61 L 79-93 MMHG Arterial Blood HCO3 25 23-27 MMOL/L Arterial Blood Total CO2 25.9 21.0-31.0 MMOL/L Arterial Blood Oxygen Saturation 92 L 94-100 % Arterial Blood Base Excess 0.0 -2.5-2.5 MMOL/L Christiano Test ART LINE Blood Gas Ventilator Setting YES Blood Gas Inspired Oxygen 35% Sodium Level 138 135-145 MMOL/L Potassium Level 4.0 3.6-5.0 MMOL/L Chloride Level 103 98-107 MMOL/L Carbon Dioxide Level 21 21-32 MMOL/L Anion Gap 14 5-14 MMOL/L Blood Urea Nitrogen 44 H 7-18 MG/DL Creatinine 2.74 #H 0.60-1.30 MG/DL Estimat Glomerular Filtration Rate 17 BUN/Creatinine Ratio 16 Glucose Level 222 H 70-105 MG/DL Calcium Level 8.3 L 8.5-10.1 MG/DL Phosphorus Level 2.0 L 2.3-4.7 MG/DL Magnesium Level 1.8 1.8-2.4 MG/DL Troponin I 0.308 *H 0.283 H <0.028 NG/ML Triglycerides Level 249 H <150 MG/DL Lactic Acid Level 1.31 0.50-2.00 MMOL/L Physical Exam Physical Exam Vital Signs Vital Signs - First Documented 11/17/18 11/20/18 11:42 15:35 Temp 98.0 Pulse 100 Resp 18 B/P (MAP) 148/94 (112) Pulse Ox 93 O2 Delivery Nasal Cannula O2 Flow Rate 2.00 FiO2 30 Capillary Refill : Less Than 3 Seconds Height, Weight, BMI Height: 5'3.00" Weight: 312lbs. 0.5oz. 141.813135qi; 52.3 BMI Method:Stated General Appearance: Mild Distress, Other (Currently sedated on vent) HEENT: PERRL/EOMI, Pharynx Normal, Other Neck: Limited Range of Motion Respiratory: Decreased Breath Sounds, Rhonci Cardiovascular: Regular Rate, Rhythm, No Gallop Gastrointestinal: Normal Bowel Sounds, Distended Extremity: No Calf Tenderness Neurologic/Psychiatric: Other (sedated and intubated) Skin: Damp Lymphatic: No Adenopathy A/P-Cardiology Admission Diagnosis Acute respiratory failure Non-ST elevation myocardial infarction, type II IL Hypertension Hyperlipidemia Assessment/Plan Acute respiratory failure, ventilatory dependent, intubated yesterday. Managed by primary care team Acute non-ST elevation myocardial infarction, poor R-wave progression in the anterior leads, probably type II myocardial infarctions due to respiratory failure, underlying coronary artery disease cannot be entirely excluded. I will evaluate echocardiogram and continue to monitor. Hypertension, currently borderline hypotensive, continue with IV fluid support and monitor Hyperlipidemia maintained on Lipitor COPD, oxygen dependent, progressed into respiratory failure after abdominal surgery Status post ventral hernia repair done on 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 Olvera Morbid obesity Diabetes mellitus, followed and managed by primary care physician History of tobaccoism Clinical Quality Measures DVT/VTE Risk/Contraindication: Risk Factor Score Per Nursin RFS Level Per Nursing on Admit: 4+=Very High AUSTEN MARTÍNEZ MD Nov 21, 2018 09:59
[2018-11-21] MEDS: RT-ADVAIR HFA 115/21 MCG PER PUFF IH SCH ×2 (11:02→22:27)
--- NOTE | 2018-11-21 11:05 | NUR ---
Pastoral care visit, pts son and dil at bedside.
[2018-11-21] MEDS: ENOXAPARIN 30 MG/0.3 ML (LOVENOX) SYR SC SCH (14:33)
--- NOTE | 2018-11-21 17:25 | Progress Note ---
Subjective Date Seen by a Provider: Nov 21, 2018 Time Seen by a Provider: 17:00 Subjective/Events-last exam on vent/sedated. VS stable. has severe significant underlying pulmonary disease. also sustained non s-t elevation [place]. Focused Exam Lactate Level 11/21/18 07:10: Lactic Acid Level 1.31 Objective Exam Vital Signs Date Time Temp Pulse Resp B/P (MAP) Pulse Ox O2 Delivery O2 Flow Rate FiO2 11/21/18 17:00 82 25 126/55 (78) 93 Mechanical Ventilator 45.00 11/21/18 16:00 97.9 11/21/18 16:00 85 25 109/54 (72) 91 Mechanical Ventilator 45.00 11/21/18 15:09 88 45 11/21/18 15:08 Mechanical Ventilator 45.00 11/21/18 15:00 86 26 69/32 (44) 94 Mechanical Ventilator 35.00 11/21/18 14:41 84 24 92 35 11/21/18 14:34 105/62 11/21/18 14:00 87 24 89/74 (79) 92 Mechanical Ventilator 35.00 11/21/18 14:00 92 Mechanical Ventilator 35 11/21/18 13:00 98 24 119/105 (110) 91 Mechanical Ventilator 35.00 11/21/18 13:00 93 11/21/18 12:00 99 28 78/49 (59) 91 Mechanical Ventilator 35.00 11/21/18 12:00 97.8 11/21/18 12:00 92 Mechanical Ventilator 35 11/21/18 11:01 96 24 92 35 11/21/18 11:00 93 14 115/63 (80) 92 Mechanical Ventilator 35.00 11/21/18 10:51 90/73 11/21/18 10:00 96 24 110/62 (78) 92 Mechanical Ventilator 35.00 11/21/18 09:00 90 24 85/50 (62) 92 Mechanical Ventilator 35.00 11/21/18 08:00 99.2 11/21/18 08:00 94 Mechanical Ventilator 35 11/21/18 08:00 96 24 98/51 (67) 91 Mechanical Ventilator 35.00 11/21/18 07:00 93 11/21/18 07:00 93 23 100/55 (70) 93 Mechanical Ventilator 35.00 11/21/18 06:38 94 24 93 35 11/21/18 06:00 98.7 99 24 105/56 (72) 93 Mechanical Ventilator 35.00 11/21/18 05:00 104 23 107/66 (80) 93 Mechanical Ventilator 35.00 11/21/18 04:00 100 Mechanical Ventilator 35 11/21/18 04:00 107 24 112/71 (85) 93 Mechanical Ventilator 35.00 11/21/18 03:00 116 23 127/71 (89) 91 Mechanical Ventilator 35.00 11/21/18 02:11 Mechanical Ventilator 11/21/18 02:00 107 24 121/73 (89) 92 Mechanical Ventilator 35.00 11/21/18 01:00 106 11/21/18 01:00 93 24 94 35 11/21/18 01:00 105 23 151/73 (99) 91 Mechanical Ventilator 35.00 11/21/18 00:00 100 Mechanical Ventilator 35 11/21/18 00:00 105 23 131/69 (89) 100 Mechanical Ventilator 35.00 11/20/18 23:00 102 23 117/61 (79) 100 Mechanical Ventilator 35.00 11/20/18 22:07 91 24 98 35 11/20/18 22:00 101 21 107/58 (74) 95 Mechanical Ventilator 35.00 11/20/18 21:00 104 21 114/63 (80) 94 Mechanical Ventilator 35.00 11/20/18 20:00 100 Mechanical Ventilator 35 11/20/18 20:00 105 21 111/63 (79) 94 Mechanical Ventilator 35.00 11/20/18 19:30 102 22 94 30 11/20/18 19:00 84 22 127/61 (83) 100 Mechanical Ventilator 35.00 11/20/18 19:00 84 11/20/18 18:00 99 21 128/56 (80) 92 Mechanical Ventilator 50.00 11/20/18 18:00 92 Mechanical Ventilator 35 I & O 11/21/18 07:00 Intake Total 5814 ml Output Total 2750 ml Balance 3064 ml Capillary Refill : Less Than 3 Seconds General Appearance: No Apparent Distress Neck: Normal Inspection, Non Tender Respiratory: Decreased Breath Sounds, Rhonci, Wheezing Cardiovascular: Regular Rate, Rhythm Gastrointestinal: normal bowel sounds, soft Extremity: Normal Capillary Refill Neurologic/Psychiatric: Alert, Oriented x3 Skin: Normal Color Lymphatic: No Adenopathy Results Lab Laboratory Tests 11/20/18 17:57: Glucometer 238H 11/20/18 20:20: Blood Gas Puncture Site L SIGRID, Blood Gas Patient Temperature 98.7, Arterial Blood pH 7.33*L, Arterial Blood Partial Pressure CO2 45, Arterial Blood Partial Pressure O2 64L, Arterial Blood HCO3 23, Arterial Blood Total CO2 24.4, Arterial Blood Oxygen Saturation 94, Arterial Blood Base Excess -2.0, Christiano Test ART LINE, Blood Gas Ventilator Setting YES, Blood Gas Inspired Oxygen 35% 11/20/18 20:21: Glucometer 298H 11/20/18 20:55: Urine Color YELLOW, Urine Clarity SL CLOUDY, Urine pH 5, Urine Specific [place] 1.010L, Urine Protein 2+H, Urine Glucose (UA) NEGATIVE, Urine Ketones 1+H, Urine Nitrite NEGATIVE, Urine Bilirubin NEGATIVE, Urine Urobilinogen NORMAL, Urine Leukocyte Esterase 3+H, Urine RBC (Auto) 5+H, Urine RBC RARE, Urine WBC 5-10H, Urine Crystals PRESENTH, Urine Amorphous Sediment FEW MONI URATESH, Urine Bacteria FEWH, Urine Casts PRESENT, Urine Granular Casts 2-5H, Urine Mucus NEGATIVE, Urine Culture Indicated YES 11/21/18 00:10: Glucometer 239H 11/21/18 03:05: White Blood Count 14.5H, Red Blood Count 4.16L, Hemoglobin 11.9, Hematocrit 37, Mean Corpuscular Volume 89, Mean Corpuscular Hemoglobin 29, Mean Corpuscular Hemoglobin Concent 32, Red Cell Distribution Width 14.9H, Platelet Count 255, Mean Platelet Volume 10.0, Blood Gas Puncture Site LEFT RADIAL, Blood Gas Patient Temperature 99.4, Arterial Blood pH 7.36L, Arterial Blood Partial Pressure CO2 45, Arterial Blood Partial Pressure O2 61L, Arterial Blood HCO3 25, Arterial Blood Total CO2 25.9, Arterial Blood Oxygen Saturation 92L, Arterial Blood Base Excess 0.0, Christiano Test ART LINE, Blood Gas Ventilator Setting YES, Blood Gas Inspired Oxygen 35%, Sodium Level 138, Potassium Level 4.0, Chloride Level 103, Carbon Dioxide Level 21, Anion Gap 14, Blood Urea Nitrogen 44H, Creatinine 2.74#H, Estimat Glomerular Filtration Rate 17, BUN/Creatinine Ratio 16, Glucose Level 222H, Calcium Level 8.3L, Phosphorus Level 2.0L, Magnesium Level 1.8, Troponin I 0.308*H, Triglycerides Level 249H 11/21/18 07:10: Troponin I 0.283H, Lactic Acid Level 1.31 11/21/18 11:28: Glucometer 232H 11/21/18 11:29: Troponin I 0.180H 11/21/18 14:56: Troponin I 0.131H Microbiology 11/20/18 Gram Stain - Final, Resulted 11/20/18 Sputum Culture - Preliminary, Resulted Usual upper respiratory chandana 11/20/18 Urine Culture - Final, Complete NO GROWTH Assessment/Plan Assessment/Plan Assess & Plan/Chief Complaint s/p open repair recurrent ventral abd incisional hernia with mesh with multiple medical comorbidities including diabetes, copd and morbid obesity. on vent and sedated for exacerbation copd and non s-t elevation WA. cont current care. will continue to monitor. will start TPN if no nutrition by day 7 Clinical Quality Measures DVT/VTE Risk/Contraindication: Risk Factor Score Per Nursin RFS Level Per Nursing on Admit: 4+=Very High WENDI ELIZABETH MD Nov 21, 2018 17:25
[2018-11-21] MEDS: ATORVASTATIN 40 MG (LIPITOR) TABLET PO SCH (21:21)
[2018-11-22] VITALS (30 sets, daily range): BP systolic 89–160; BP diastolic 45–74
[2018-11-22] MEDS: LACTATED RINGERS 1,000 ML IV SCH ×2 (01:11→10:44)
[2018-11-22] MEDS: methylPREDNISolone 40 MG/ML (Solu-MEDROL) VIAL IV SCH ×4 (01:14→17:27)
[2018-11-22] MEDS: inSUlin ASPART (NovoLOG) 1 UNIT/0.01 ML (CHARGE PER UNIT) SC SCH ×2 (01:42→04:59)
[2018-11-22] MEDS: RT-ALBUTEROL/IPRATROPIUM 3 ML (DUONEB) VIAL IH SCH ×6 (02:17→22:30)
[2018-11-22] MEDS: PROPOFOL DRIP (ICU) 100 ML IV SCH ×8 (03:06→22:20)
[2018-11-22 03:47] LABS: ABG BASE EXCESS -1.1 MMOL/L (-2.5-2.5); ABG OXYGEN SATURATION 96 % (94-100); ABG PCO2 37 MMHG (35-45); ABG PH 7.41 (7.37-7.43); ABG PO2 78 MMHG (79-93); ABG TCO2 24.1 MMOL/L (21.0-31.0)
[2018-11-22 03:54] LABS: ALLENS TEST ART LINE; INSPIRED O2 45%; PATIENT TEMP 98.2; VENTILATOR YES
[2018-11-22 03:57] LABS: BASOPHILS % (AUTO) 0 % (0-10); EOSINOPHILS % (AUTO) 0 % (0-10); HEMATOCRIT 33 % (35-52); HEMOGLOBIN 10.4 G/DL (11.5-16.0); LYMPHOCYTES # (AUTO) 0.5 X 10^3 (1.0-4.0); LYMPHOCYTES % (AUTO) 4 % (12-44); MEAN CORPUSCULAR HEMOGLOBIN 28 PG (25-34); MEAN CORPUSCULAR HGB CONC 32 G/DL (32-36); MEAN CORPUSCULAR VOLUME 88 FL (80-99); MEAN PLATELET VOLUME 9.8 FL (7.4-10.4); MONOCYTES # (AUTO) 0.7 X 10^3 (0.0-1.0); MONOCYTES % (AUTO) 5 % (0-12); NEUTROPHILS # (AUTO) 12.8 X 10^3 (1.8-7.8); NEUTROPHILS % (AUTO) 92 % (42-75); PLATELET COUNT 227 10^3/uL (130-400); RED CELL DISTRIBUTION WIDTH 14.9 % (10.0-14.5); WHITE BLOOD COUNT 13.9 10^3/uL (4.3-11.0)
[2018-11-22 04:11] LABS: CALCIUM 8.4 MG/DL (8.5-10.1); CREATININE SERUM 1.74 MG/DL (0.60-1.30); MAGNESIUM 2.3 MG/DL (1.8-2.4); PHOSPHORUS 2.8 MG/DL (2.3-4.7); POTASSIUM 3.2 MMOL/L (3.6-5.0)
[2018-11-22] MEDS: DEXMEDETOMIDINE INJECTION 1,000 MCG in NS (IVPB) 250 ML IV PRN ×3 (04:30→17:27)
[2018-11-22] MEDS: POTASSIUM CL 10MEQ/50ML IVPB 50 ML IV SCH ×7 (05:01→14:24)
[2018-11-22] MEDS: KCL 20 MEQ TAB (K-DUR) PO SCH (05:02)
[2018-11-22] MEDS: MAGNESIUM 1 GM/100 ML IVPB 100 ML IV SCH (05:02)
--- NOTE | 2018-11-22 07:14 | Pulmonary Progress Note ---
Subjective Time Seen by a Provider: 12:28 Sepsis Event Evaluation Height, Weight, BMI Height: 5'3.00" Weight: 320lbs. 0.5oz. 145.787497im; 52.3 BMI Method:Stated Focused Exam Lactate Level 11/21/18 07:10: Lactic Acid Level 1.31 Exam Exam Vital Signs Date Time Temp Pulse Resp B/P (MAP) Pulse Ox O2 Delivery O2 Flow Rate FiO2 11/22/18 06:00 92 25 118/49 (72) 97 Mechanical Ventilator 45.00 11/22/18 05:16 98.4 98 24 92/48 91 Mechanical Ventilator 3.00 11/22/18 05:00 98 24 92/48 (63) 91 Mechanical Ventilator 45.00 11/22/18 04:00 93 Mechanical Ventilator 45 11/22/18 04:00 102 24 100/47 (64) 91 Mechanical Ventilator 45.00 11/22/18 03:06 98.4 85 24 143/66 93 Mechanical Ventilator 3.00 11/22/18 03:00 101 25 145/68 (93) 94 Mechanical Ventilator 45.00 11/22/18 02:18 85 24 93 45 11/22/18 02:00 85 24 135/70 (91) 93 Mechanical Ventilator 45.00 11/22/18 01:00 93 24 134/62 (86) 93 Mechanical Ventilator 45.00 11/22/18 01:00 92 11/22/18 00:00 96 Mechanical Ventilator 45 11/22/18 00:00 90 25 111/51 (71) 96 Mechanical Ventilator 45.00 11/21/18 23:08 144/70 11/21/18 23:00 88 25 157/70 (99) 94 Mechanical Ventilator 45.00 11/21/18 22:30 78 28 95 45 11/21/18 22:00 84 24 108/51 (70) 94 Mechanical Ventilator 45.00 11/21/18 21:00 85 24 125/61 (82) 95 Mechanical Ventilator 45.00 11/21/18 20:00 93 Mechanical Ventilator 45 11/21/18 20:00 84 24 136/63 (87) 94 Mechanical Ventilator 45.00 11/21/18 19:22 98.4 84 25 136/53 (80) 93 Mechanical Ventilator 45.00 11/21/18 19:00 94 11/21/18 19:00 91 24 117/49 (71) 94 Mechanical Ventilator 45.00 11/21/18 18:16 114/55 11/21/18 18:12 82 25 93 45 11/21/18 18:00 86 25 115/58 (77) 93 Mechanical Ventilator 45.00 11/21/18 17:00 82 25 126/55 (78) 93 Mechanical Ventilator 45.00 11/21/18 16:00 92 Mechanical Ventilator 35 11/21/18 16:00 97.9 11/21/18 16:00 85 25 109/54 (72) 91 Mechanical Ventilator 45.00 11/21/18 15:09 88 45 11/21/18 15:08 Mechanical Ventilator 45.00 11/21/18 15:00 86 26 69/32 (44) 94 Mechanical Ventilator 35.00 11/21/18 14:41 84 24 92 35 11/21/18 14:34 105/62 11/21/18 14:00 87 24 89/74 (79) 92 Mechanical Ventilator 35.00 11/21/18 14:00 92 Mechanical Ventilator 35 11/21/18 13:00 98 24 119/105 (110) 91 Mechanical Ventilator 35.00 11/21/18 13:00 93 11/21/18 12:00 99 28 78/49 (59) 91 Mechanical Ventilator 35.00 11/21/18 12:00 97.8 11/21/18 12:00 92 Mechanical Ventilator 35 11/21/18 11:01 96 24 92 35 11/21/18 11:00 93 14 115/63 (80) 92 Mechanical Ventilator 35.00 11/21/18 10:51 90/73 11/21/18 10:00 96 24 110/62 (78) 92 Mechanical Ventilator 35.00 11/21/18 09:00 90 24 85/50 (62) 92 Mechanical Ventilator 35.00 11/21/18 08:00 99.2 11/21/18 08:00 94 Mechanical Ventilator 35 11/21/18 08:00 96 24 98/51 (67) 91 Mechanical Ventilator 35.00 I & O 11/22/18 07:00 Intake Total 4130 ml Output Total 2550 ml Balance 1580 ml Height & Weight Height: 5'3.00" Weight: 320lbs. 0.5oz. 145.409223ms; 52.3 BMI Method:Stated General Appearance: No Apparent Distress, WD/WN, Chronically ill, Obese, Other (intubated and sedated) HEENT: PERRL/EOMI, Pharynx Normal, Other Neck: Normal Inspection, Non Tender Respiratory: Lungs Clear, Normal Breath Sounds Cardiovascular: Regular Rate, Rhythm Capillary Refill: Less Than 3 Seconds Gastrointestinal: normal bowel sounds, soft Extremity: Normal Capillary Refill Neurologic/Psychiatric: Alert, Oriented x3 Skin: Normal Color, Warm/Dry Lymphatic: No Adenopathy Results Lab Laboratory Tests 11/20/18 07:20 11/21/18 03:05 11/22/18 03:40 Assessment/Plan Assessment/Plan Acute on chronic respiratory failure -pT was intubated 11/20 -SVNS - change to Q 4 scheduled -Check labs and CXR -Solumedrol 40 IV Q 6 Hypotensive -Currently Levophed-- currently off -Will give liter bolus of NS Hyperglycemia -Increase Levemir to 12 units Q12 -Start insulin gtt secondary to BS >300 Anion gapped metabolic acidosis r/o DKA vs lactic acidosis -Check beta hydroxybutyrate, UA, and LA Morbid obesity with OHS DM II S/p Hernia repair surgery -Dr. Olvera following Hx of severe COPD oxygen dependent Acute on chronic renal failure -Monitor -Increase IVF -Hold ACEI for now -Hold metformin Elevated troponin-- probably secondary to respiratory failure -Check echo -Consult cardiology MERCEDES GARNICA DO Nov 22, 2018 07:14
[2018-11-22] MEDS ORDERED: inSUlin (REGULAR) HUMAN 1 UNIT/0.01 ML (CHARGE PER UNIT) IV ONE (07:15)
[2018-11-22] MEDS ORDERED: inSUlin REGULAR TPN/DRIP ONLY 250 UNITS in NORMAL SALINE 250 ML IV SCH (07:15)
[2018-11-22] MEDS: RT-ADVAIR HFA 115/21 MCG PER PUFF IH SCH ×2 (07:51→08:01)
[2018-11-22 08:38] LABS: ABG BASE EXCESS 0.5 MMOL/L (-2.5-2.5); ABG OXYGEN SATURATION 93 % (94-100); ABG PCO2 39 MMHG (35-45); ABG PH 7.42 (7.37-7.43); ABG PO2 65 MMHG (79-93); ABG TCO2 25.7 MMOL/L (21.0-31.0); ALLENS TEST ART LINE
[2018-11-22 08:39] LABS: INSPIRED O2 45%; PATIENT TEMP 98.1; VENTILATOR YES
[2018-11-22] MEDS: PIPERACILLIN/TAZOBACTAM (BULK) 4.5 GM in NS (IVPB) 100 ML IV SCH ×2 (08:49→21:37)
--- NOTE | 2018-11-22 10:12 | Progress Note - Hospitalist ---
Subjective HPI/CC On Admission Date Seen by Provider: Nov 22, 2018 Time Seen by Provider: 09:30 I was asked to see patient in consultation For elevated blood sugars. The patient was somnolent and could not stay awake during my conversation and exam. Stat blood sugar was 250. the patient recently had some pain medication and I am concerned that she has CO2 retention with chronic apnea. blood gas is pending. Subjective/Events-last exam Echocardiogram done, no results yet. Potassium 60 mEq will be given today. Off Levophed but BP remains labile. Insulin drip non-DKA because bicarb is slowly going down and blood sugars remain out of control. Simv on vent because she wasn't tolerating AC. Focused Exam Lactate Level 11/21/18 07:10: Lactic Acid Level 1.31 11/22/18 08:21: Lactic Acid Level 1.72 Lactic Acid Level Objective Exam Vital Signs Vital Signs Date Time Temp Pulse Resp B/P (MAP) Pulse Ox O2 Delivery O2 Flow Rate FiO2 11/22/18 20:08 98.2 85 24 105/56 97 Mechanical Ventilator 3.00 11/22/18 20:00 45 Capillary Refill : Less Than 3 Seconds General Appearance: No Apparent Distress, WD/WN, Chronically ill, Obese, Other (intubated and sedated) Respiratory: Lungs Clear, Normal Breath Sounds Cardiovascular: Regular Rate, Rhythm, No Edema Results/Procedures Lab Laboratory Tests 11/22/18 03:40 Patient resulted labs reviewed. Assessment/Plan Assessment and Plan Assess & Plan/Chief Complaint Assessment: VDRF Obesity hypoventilation syndrome Non-compliance Smoker COPD Plan: Monitor closely Vent dependence Diagnosis/Problems Diagnosis/Problems (1) Ventilator dependence Status: Acute (2) Obesity hypoventilation syndrome Status: Chronic (3) COPD (chronic obstructive pulmonary disease) Status: Chronic Qualifiers: COPD type: unspecified COPD Qualified Codes: J44.9 - Chronic obstructive pulmonary disease, unspecified (4) Smoker Status: Chronic Clinical Quality Measures DVT/VTE Risk/Contraindication: Risk Factor Score Per Nursin RFS Level Per Nursing on Admit: 4+=Very High ALEIDA LICEA DO Nov 22, 2018 10:12
[2018-11-22] MEDS: PANTOPRAZOLE 40 MG (PROTONIX) VIAL IV SCH (10:45)
[2018-11-22] MEDS: MAGNESIUM OXIDE (MAG-OX)400 MG TAB PO SCH (10:45)
[2018-11-22] MEDS: OMEGA 3 (FISH OIL) 1000 MG CAP PO SCH (10:45)
[2018-11-22] MEDS: VITAMIN D3 5,000 UNITS (CHOLECALCIFEROL ) CAPSULE PO SCH (10:46)
[2018-11-22] MEDS: amLODIPine 10 MG (NORVASC) TAB PO SCH (10:46)
[2018-11-22] MEDS: buPROPion SR 150 MG (WELLBUTRIN SR) TAB PO SCH (10:46)
[2018-11-22] MEDS: DULoxetine 30 MG (CYMBALTA) CAP PO SCH (10:46)
[2018-11-22] MEDS: LINAGLIPTIN (TRADJENTA) 5 MG TABLET PO SCH (10:48)
--- NOTE | 2018-11-22 11:08 | Progress Note ---
Subjective Date Seen by a Provider: Nov 22, 2018 Time Seen by a Provider: 11:00 Subjective/Events-last exam on vent/sedated. weening sedation. blood gases improving. good u/o. wound clean/dry Focused Exam Lactate Level 11/21/18 07:10: Lactic Acid Level 1.31 11/22/18 08:21: Lactic Acid Level 1.72 Lactic Acid Level Laboratory Tests Test 11/22/18 08:21 Lactic Acid Level 1.72 MMOL/L (0.50-2.00) Objective Exam Vital Signs Date Time Temp Pulse Resp B/P (MAP) Pulse Ox O2 Delivery O2 Flow Rate FiO2 11/22/18 10:43 111/55 11/22/18 10:01 93 21 96 45 11/22/18 08:38 99/43 11/22/18 08:00 90 21 89/45 (60) 96 Mechanical Ventilator 45.00 11/22/18 07:42 105 25 96 45 11/22/18 07:00 102 24 91/46 (61) 96 Mechanical Ventilator 45.00 11/22/18 07:00 97 11/22/18 06:00 92 25 118/49 (72) 97 Mechanical Ventilator 45.00 11/22/18 05:16 98.4 98 24 92/48 91 Mechanical Ventilator 3.00 11/22/18 05:00 98 24 92/48 (63) 91 Mechanical Ventilator 45.00 11/22/18 04:00 93 Mechanical Ventilator 45 11/22/18 04:00 102 24 100/47 (64) 91 Mechanical Ventilator 45.00 11/22/18 03:06 98.4 85 24 143/66 93 Mechanical Ventilator 3.00 11/22/18 03:00 101 25 145/68 (93) 94 Mechanical Ventilator 45.00 11/22/18 02:18 85 24 93 45 11/22/18 02:00 85 24 135/70 (91) 93 Mechanical Ventilator 45.00 11/22/18 01:00 93 24 134/62 (86) 93 Mechanical Ventilator 45.00 11/22/18 01:00 92 11/22/18 00:00 96 Mechanical Ventilator 45 11/22/18 00:00 90 25 111/51 (71) 96 Mechanical Ventilator 45.00 11/21/18 23:08 144/70 11/21/18 23:00 88 25 157/70 (99) 94 Mechanical Ventilator 45.00 11/21/18 22:30 78 28 95 45 11/21/18 22:00 84 24 108/51 (70) 94 Mechanical Ventilator 45.00 11/21/18 21:00 85 24 125/61 (82) 95 Mechanical Ventilator 45.00 11/21/18 20:00 93 Mechanical Ventilator 45 11/21/18 20:00 84 24 136/63 (87) 94 Mechanical Ventilator 45.00 11/21/18 19:22 98.4 84 25 136/53 (80) 93 Mechanical Ventilator 45.00 11/21/18 19:00 94 11/21/18 19:00 91 24 117/49 (71) 94 Mechanical Ventilator 45.00 11/21/18 18:16 114/55 11/21/18 18:12 82 25 93 45 11/21/18 18:00 86 25 115/58 (77) 93 Mechanical Ventilator 45.00 11/21/18 17:00 82 25 126/55 (78) 93 Mechanical Ventilator 45.00 11/21/18 16:00 92 Mechanical Ventilator 35 11/21/18 16:00 97.9 11/21/18 16:00 85 25 109/54 (72) 91 Mechanical Ventilator 45.00 11/21/18 15:09 88 45 11/21/18 15:08 Mechanical Ventilator 45.00 11/21/18 15:00 86 26 69/32 (44) 94 Mechanical Ventilator 35.00 11/21/18 14:41 84 24 92 35 11/21/18 14:34 105/62 11/21/18 14:00 87 24 89/74 (79) 92 Mechanical Ventilator 35.00 11/21/18 14:00 92 Mechanical Ventilator 35 11/21/18 13:00 98 24 119/105 (110) 91 Mechanical Ventilator 35.00 11/21/18 13:00 93 11/21/18 12:00 99 28 78/49 (59) 91 Mechanical Ventilator 35.00 11/21/18 12:00 97.8 11/21/18 12:00 92 Mechanical Ventilator 35 I & O 11/22/18 07:00 Intake Total 4130 ml Output Total 2550 ml Balance 1580 ml Capillary Refill : Less Than 3 Seconds General Appearance: No Apparent Distress HEENT: PERRL/EOMI Neck: Full Range of Motion Respiratory: Decreased Breath Sounds, Wheezing Cardiovascular: Regular Rate, Rhythm Gastrointestinal: normal bowel sounds, soft, other (skin clean/dry) Extremity: Normal Capillary Refill Skin: Normal Color Lymphatic: No Adenopathy Results Lab Laboratory Tests 11/21/18 11:28: Glucometer 232H 11/21/18 11:29: Troponin I 0.180H 11/21/18 14:56: Troponin I 0.131H 11/21/18 17:18: Glucometer 281H 11/21/18 21:01: Glucometer 336H 11/22/18 01:24: Glucometer 352H 11/22/18 03:40: White Blood Count 13.9H, Red Blood Count 3.75L, Hemoglobin 10.4L, Hematocrit 33L , Mean Corpuscular Volume 88, Mean Corpuscular Hemoglobin 28, Mean Corpuscular Hemoglobin Concent 32, Red Cell Distribution Width 14.9H, Platelet Count 227, Mean Platelet Volume 9.8, Neutrophils (%) (Auto) 92H, Lymphocytes (%) (Auto) 4L, Monocytes (%) (Auto) 5, Eosinophils (%) (Auto) 0, Basophils (%) (Auto) 0, Neutrophils # (Auto) 12.8H, Lymphocytes # (Auto) 0.5L, Monocytes # (Auto) 0.7, Eosinophils # (Auto) 0.0, Basophils # (Auto) 0.0, Sodium Level 142, Potassium Level 3.2L, Chloride Level 107, Carbon Dioxide Level 19L, Anion Gap 16H, Blood Urea Nitrogen 38H, Creatinine 1.74H, Estimat Glomerular Filtration Rate 29, BUN/Creatinine Ratio 22, Glucose Level 356H, Calcium Level 8.4L, Phosphorus Level 2.8, Magnesium Level 2.3 11/22/18 03:45: Blood Gas Puncture Site LEFT ART LINE, Blood Gas Patient Temperature 98.2, Arterial Blood pH 7.41, Arterial Blood Partial Pressure CO2 37, Arterial Blood Partial Pressure O2 78L, Arterial Blood HCO3 23, Arterial Blood Total CO2 24.1, Arterial Blood Oxygen Saturation 96, Arterial Blood Base Excess -1.1, Christiano Test ART LINE, Blood Gas Ventilator Setting YES, Blood Gas Inspired Oxygen 45% 11/22/18 04:56: Glucometer 313H 11/22/18 08:20: Glucometer 314H 11/22/18 08:21: Lactic Acid Level 1.72, Beta-Hydroxybutyrate (Chem panel) 0.17 11/22/18 08:32: Blood Gas Puncture Site LT RADIAL ARTLINE, Blood Gas Patient Temperature 98.1, Arterial Blood pH 7.42, Arterial Blood Partial Pressure CO2 39, Arterial Blood Partial Pressure O2 65L, Arterial Blood HCO3 25, Arterial Blood Total CO2 25.7, Arterial Blood Oxygen Saturation 93L, Arterial Blood Base Excess 0.5, Christiano Test ART LINE, Blood Gas Ventilator Setting YES, Blood Gas Inspired Oxygen 45% Microbiology 11/20/18 Gram Stain - Final, Resulted 11/20/18 Sputum Culture - Preliminary, Resulted Usual upper respiratory chandana 11/20/18 Urine Culture - Final, Complete NO GROWTH Assessment/Plan Assessment/Plan Assess & Plan/Chief Complaint s/p open repair recurrent ventral abd incisional hernia with mesh with multiple medical comorbidities including diabetes, copd and morbid obesity. on vent and sedated for exacerbation copd and non s-t elevation [place]. cont current care. cont abx for high risk pneumonia/wound infxn. will continue to monitor. will start TPN if no nutrition by day 7 Clinical Quality Measures DVT/VTE Risk/Contraindication: Risk Factor Score Per Nursin RFS Level Per Nursing on Admit: 4+=Very High WENDI ELIZABETH MD Nov 22, 2018 11:08
--- NOTE | 2018-11-22 11:18 | Diagnostic Imaging Report ---
EXAMINATION: Portable erect AP chest at 0340 hours. INDICATION: Dyspnea. FINDINGS: The cardiomegaly and mild pulmonary congestion noted on the prior exam of 11/21/2018 are again evident and no different. There still appears to be a small amount of atelectasis/infiltrate in each lung base. This finding is unchanged when compared to the prior exam as well. The upper lungs are generally clear. The mediastinum is not widened. The osseous structures are intact. In the interval since the prior exam, the tip of the ET tube has been advanced and the tip now lies approximately 1 cm cephalad to the thomas. I would recommend that the ET tube tip be retracted 2-3 cm. The NG line seen previously is unchanged in position. IMPRESSION: 1. There is persistent cardiomegaly, mild pulmonary congestion, and mild bibasilar atelectasis/infiltrate. Overall, there has been no adverse change when compared to the prior study. 2. The ET tube tip has been advanced and should be retracted 2-3 cm. 3. The report was called Johan/JOHNIE [facility] ICU by ELSA@11:20 AM. Dictated by: Dictated on workstation # [id number]
[2018-11-22] MEDS: ENOXAPARIN 60 MG/0.6 ML (LOVENOX) SYR SC SCH ×2 (12:19→21:38)
--- NOTE | 2018-11-22 13:13 | NUR ---
PALLIATIVE CARE RN making ICU rounds and visited with this patients son. He says she is doing better over yesterday and that they are going to extubate soon. He has no needs this time.
[2018-11-22 13:24] LABS: BILIRUBIN,URINE NEGATIVE (NEGATIVE); CLARITY,URINE CLEAR; COLOR,URINE YELLOW; GLUCOSE, URINE (UA) NEGATIVE (NEGATIVE); KETONES,URINE NEGATIVE (NEGATIVE); LEUKOCYTE ESTERASE ,URINE 1+ (NEGATIVE); NITRITE,URINE NEGATIVE (NEGATIVE); PH,URINE 5 (5-9); PROTEIN,URINE 2+ (NEGATIVE); UROBILINOGEN,URINE NORMAL (NORMAL)
[2018-11-22 13:34] LABS: BACTERIA,URINE TRACE /HPF; RBC,URINE RARE /HPF
--- NOTE | 2018-11-22 16:04 | Cardiology Progress Note ---
Subjective Date Seen by Provider: Nov 22, 2018 Time Seen by Provider: 12:10 Subjective/Events-last exam Patient is in bed, sedated and intubated. Review of Systems General: Other (Sedated and intubated, unable to provide any history) Focused Exam Lactate Level 11/21/18 07:10: Lactic Acid Level 1.31 11/22/18 08:21: Lactic Acid Level 1.72 Objective-Cardiology Exam Last Set of Vital Signs Vital Signs 11/22/18 11/22/18 11/22/18 14:00 14:39 15:51 Temp 99.5 Pulse 92 Resp 25 B/P (MAP) 98/51 (67) Pulse Ox 95 O2 Delivery Mechanical Ventilator O2 Flow Rate 45.00 FiO2 45 Capillary Refill : Less Than 3 Seconds I&O Intake and Output 11/22/18 00:00 Intake Total 4874 ml Output Total 2925 ml Balance 1949 ml Intake Oral 0 ml IV Total 4874 ml Output Urine Total 2425 ml Gastric Drainage Total 500 ml General: Severe Distress, Other (Sedated and intubated) HEENT: Atraumatic Neck: Supple Lungs: Normal Air Movement Heart: Regular Rate, Normal S1, Normal S2 Abdomen: Other (Diminished) Extremities: No Clubbing, Other (Edema) Skin: No Rashes Neuro: Other (Sedated and intubated) Psych/Mental Status: Other (Sedated and intubated) Results Lab Laboratory Tests 11/22/18 03:40 A/P-Cardiology Admission Diagnosis Acute respiratory failure Non-ST elevation myocardial infarction, type II [place] Hypertension Hyperlipidemia Assessment/Plan Acute respiratory failure, ventilatory dependent, intubated yesterday. Managed by primary care team Acute non-ST elevation myocardial infarction, poor R-wave progression in the anterior leads, probably type II myocardial infarctions due to respiratory failure, underlying coronary artery disease cannot be entirely excluded. Echocardiogram showed normal LV function. Continue with conservative management at this time, continue to monitor. Troponin level is trending down, no acute EKG changes suggestive of active ischemia. Hypertension, was borderline hypotensive, blood pressure is better. Being weaned off pressors Hyperlipidemia maintained on Lipitor COPD, oxygen dependent, progressed into respiratory failure after abdominal surgery, intubated. Managed by primary care team Status post ventral hernia repair done on 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 Olvera Morbid obesity Diabetes mellitus, followed and managed by primary care physician History of tobaccoism Clinical Quality Measures DVT/VTE Risk/Contraindication: Risk Factor Score Per Nursin RFS Level Per Nursing on Admit: 4+=Very High AUSTEN MARTÍNEZ MD Nov 22, 2018 16:04
[2018-11-22] MEDS ORDERED: LACTATED RINGERS 1,000 ML IV ONE (18:50)
[2018-11-22] MEDS ORDERED: RT-ADVAIR HFA 115/21 MCG PER PUFF IH ONE (20:00)
[2018-11-22] MEDS: ATORVASTATIN 40 MG (LIPITOR) TABLET PO SCH (21:38)
[2018-11-23] VITALS (33 sets, daily range): BP systolic 96–176; BP diastolic 55–80
[2018-11-23] MEDS: DEXMEDETOMIDINE INJECTION 1,000 MCG in NS (IVPB) 250 ML IV PRN ×5 (00:02→23:41)
[2018-11-23] MEDS: methylPREDNISolone 40 MG/ML (Solu-MEDROL) VIAL IV SCH ×5 (00:16→23:35)
[2018-11-23] MEDS: inSUlin ASPART (NovoLOG) 1 UNIT/0.01 ML (CHARGE PER UNIT) SC SCH ×7 (00:22→23:37)
[2018-11-23] MEDS ORDERED: fentaNYL INJECTION 100 MCG/2 ML AMP ONE (01:01)
[2018-11-23] MEDS: PROPOFOL DRIP (ICU) 100 ML IV SCH ×8 (01:10→23:15)
[2018-11-23] MEDS: fentaNYL INJECTION 100 MCG/2 ML AMP IVP PRN (01:14)
[2018-11-23] MEDS: RT-ALBUTEROL/IPRATROPIUM 3 ML (DUONEB) VIAL IH SCH ×6 (02:23→22:05)
[2018-11-23] MEDS ORDERED: NS IV 1000 ML 0 ML ONE (02:48)
[2018-11-23] MEDS ORDERED: LACTATED RINGERS 1,000 ML IV ONE (02:51)
[2018-11-23 03:19] LABS: ABG BASE EXCESS -0.5 MMOL/L (-2.5-2.5); ABG OXYGEN SATURATION 95 % (94-100); ABG PCO2 38 MMHG (35-45); ABG PH 7.41 (7.37-7.43); ABG PO2 71 MMHG (79-93); ABG TCO2 24.9 MMOL/L (21.0-31.0); BASOPHILS % (AUTO) 0 % (0-10); EOSINOPHILS % (AUTO) 0 % (0-10); HEMATOCRIT 30 % (35-52); HEMOGLOBIN 9.6 G/DL (11.5-16.0); LYMPHOCYTES # (AUTO) 0.7 X 10^3 (1.0-4.0); LYMPHOCYTES % (AUTO) 6 % (12-44); MEAN CORPUSCULAR HEMOGLOBIN 28 PG (25-34); MEAN CORPUSCULAR HGB CONC 32 G/DL (32-36); MEAN CORPUSCULAR VOLUME 89 FL (80-99); MEAN PLATELET VOLUME 10.1 FL (7.4-10.4); MONOCYTES # (AUTO) 0.9 X 10^3 (0.0-1.0); MONOCYTES % (AUTO) 8 % (0-12); NEUTROPHILS # (AUTO) 10.6 X 10^3 (1.8-7.8); NEUTROPHILS % (AUTO) 87 % (42-75); PLATELET COUNT 202 10^3/uL (130-400); RED CELL DISTRIBUTION WIDTH 14.7 % (10.0-14.5); WHITE BLOOD COUNT 12.3 10^3/uL (4.3-11.0)
[2018-11-23 03:22] LABS: ALLENS TEST ART LINE; INSPIRED O2 45%; PATIENT TEMP 97.5; VENTILATOR YES
[2018-11-23 03:43] LABS: CREATININE SERUM 1.39 MG/DL (0.60-1.30); MAGNESIUM 2.6 MG/DL (1.6-2.4); PHOSPHORUS 3.7 MG/DL (2.3-4.7); POTASSIUM 3.6 MMOL/L (3.6-5.0)
[2018-11-23] MEDS: MAGNESIUM 1 GM/100 ML IVPB 100 ML IV SCH (03:58)
[2018-11-23] MEDS: KCL 20 MEQ TAB (K-DUR) PO SCH (03:58)
[2018-11-23] MEDS: POTASSIUM CL 10MEQ/50ML IVPB 50 ML IV SCH (03:58)
[2018-11-23] MEDS: RT-ADVAIR HFA 115/21 MCG PER PUFF IH SCH ×2 (06:29→22:06)
--- NOTE | 2018-11-23 08:26 | Diagnostic Imaging Report ---
INDICATION: Dyspnea. TIME OF EXAM: 3:43 AM Correlation is made with prior study one day earlier. FINDINGS: Support lines and catheters remain in place. Heart size is stable. There is mild central congestion but no overt failure. No effusion or pneumothorax is seen. IMPRESSION: Stable chest since exam one day earlier. Dictated by: Dictated on workstation # [id number]
[2018-11-23] MEDS: MAGNESIUM OXIDE (MAG-OX)400 MG TAB PO SCH (08:37)
[2018-11-23] MEDS: LINAGLIPTIN (TRADJENTA) 5 MG TABLET PO SCH (08:37)
[2018-11-23] MEDS: VITAMIN D3 5,000 UNITS (CHOLECALCIFEROL ) CAPSULE PO SCH (08:37)
[2018-11-23] MEDS: buPROPion SR 150 MG (WELLBUTRIN SR) TAB PO SCH (08:37)
[2018-11-23] MEDS: PANTOPRAZOLE 40 MG (PROTONIX) VIAL IV SCH (08:37)
[2018-11-23] MEDS: PIPERACILLIN/TAZOBACTAM (BULK) 4.5 GM in NS (IVPB) 100 ML IV SCH ×2 (08:38→20:12)
[2018-11-23] MEDS: DULoxetine 30 MG (CYMBALTA) CAP PO SCH (08:38)
[2018-11-23] MEDS: amLODIPine 10 MG (NORVASC) TAB PO SCH (08:39)
[2018-11-23] MEDS ORDERED: FUROSEMIDE 40 MG/4 ML INJ (LASIX) ONE (08:49)
[2018-11-23] MEDS: OMEGA 3 (FISH OIL) 1000 MG CAP PO SCH (08:53)
--- NOTE | 2018-11-23 08:55 | Cardiology Progress Note ---
Subjective Date Seen by Provider: Nov 23, 2018 Time Seen by Provider: 08:53 Subjective/Events-last exam patient is sedated and intubated, off pressors Review of Systems General: No Chills, No Night Sweats, No Fatigue, No Malaise, No Appetite, No Other HEENT: No Head Aches, No Visual Changes, No Eye Pain, No Ear Pain, No Dysphasia, No Sinus Congestion, No Post Nasal Drip, No Sore Throat, No Other Pulmonary: No Dyspnea, No Cough, No Pleuritic Chest Pain, No Other Cardiovascular: No: Chest Pain, Palpitations, Orthopnea, Paroxysmal Noc. Dyspnea, Edema, Lt Headedness, Other Focused Exam Lactate Level 11/21/18 07:10: Lactic Acid Level 1.31 11/22/18 08:21: Lactic Acid Level 1.72 Objective-Cardiology Exam Last Set of Vital Signs Vital Signs 11/23/18 11/23/18 11/23/18 06:25 06:30 08:00 Temp 98.2 Pulse 87 Resp 21 B/P (MAP) 115/55 (75) Pulse Ox 94 O2 Delivery Mechanical Ventilator O2 Flow Rate 45.00 FiO2 45 Capillary Refill : Less Than 3 Seconds I&O Intake and Output 11/23/18 00:00 Intake Total 4010 ml Output Total 2685 ml Balance 1325 ml Intake Oral 0 ml IV Total 3890 ml Other 120 ml Output Urine Total 2285 ml Gastric Drainage Total 400 ml General: Severe Distress, Other (Sedated and intubated) HEENT: Atraumatic Neck: Supple Lungs: Normal Air Movement Heart: Regular Rate, Normal S1, Normal S2 Abdomen: Other (diminished bowel sounds) Extremities: No Clubbing, Other (Edema) Skin: No Rashes Neuro: Other (Sedated and intubated) Psych/Mental Status: Other (Sedated and intubated) Results Lab Laboratory Tests 11/23/18 03:00 A/P-Cardiology Admission Diagnosis Acute respiratory failure Non-ST elevation myocardial infarction, type II [place] Hypertension Hyperlipidemia Assessment/Plan Acute respiratory failure, ventilatory dependent, possible weaning, I will give one dose of Lasix 20 mg IV and monitor tolerance and response. Acute non-ST elevation myocardial infarction, poor R-wave progression in the anterior leads, probably type II myocardial infarctions due to respiratory failure, underlying coronary artery disease cannot be entirely excluded. Echocardiogram showed normal LV function. Continue with conservative management at this time, continue to monitor. Troponin level is trending down, no acute EKG changes suggestive of active ischemia, Continue to monitor at this time. Hypertension, was borderline hypotensive, blood pressure is better. off all pressors Hyperlipidemia maintained on Lipitor COPD, oxygen dependent, progressed into respiratory failure after abdominal surgery, intubated. Managed by primary care team Status post ventral hernia repair done on 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 Olvera Morbid obesity Diabetes mellitus, followed and managed by primary care physician History of tobaccoism Clinical Quality Measures DVT/VTE Risk/Contraindication: Risk Factor Score Per Nursin RFS Level Per Nursing on Admit: 4+=Very High AUSTEN MARTÍNEZ MD Nov 23, 2018 08:55
[2018-11-23] MEDS: ENOXAPARIN 60 MG/0.6 ML (LOVENOX) SYR SC SCH ×2 (08:57→22:23)
[2018-11-23] MEDS ORDERED: FUROSEMIDE 40 MG/4 ML INJ (LASIX) IVP ONE (09:00)
--- NOTE | 2018-11-23 10:58 | Progress Note - Hospitalist ---
Subjective HPI/CC On Admission Date Seen by Provider: Nov 23, 2018 Time Seen by Provider: 09:45 I was asked to see patient in consultation For elevated blood sugars. The patient was somnolent and could not stay awake during my conversation and exam. Stat blood sugar was 250. the patient recently had some pain medication and I am concerned that she has CO2 retention with chronic apnea. blood gas is pending. Subjective/Events-last exam BM none for 6 days. Colace suppository will be given . Weaning off vent today and tomorrow. Updated son. Lasix IV will be given for volume overload in preparation for wean. Focused Exam Lactate Level 11/21/18 07:10: Lactic Acid Level 1.31 11/22/18 08:21: Lactic Acid Level 1.72 Objective Exam Vital Signs Vital Signs Date Time Temp Pulse Resp B/P (MAP) Pulse Ox O2 Delivery O2 Flow Rate FiO2 11/23/18 20:42 81 21 128/69 100 Mechanical Ventilator 11/23/18 19:08 98.7 45.00 11/23/18 18:36 45 Capillary Refill : Less Than 3 Seconds General Appearance: No Apparent Distress, WD/WN, Chronically ill, Obese, Other (sedated) Respiratory: Chest Non Tender, Lungs Clear, Normal Breath Sounds, No Accessory Muscle Use, No Respiratory Distress Cardiovascular: Regular Rate, Rhythm, No Edema, No Gallop, No JVD, No Murmur, Normal Peripheral Pulses Results/Procedures Lab Laboratory Tests 11/23/18 03:00 Patient resulted labs reviewed. Assessment/Plan Assessment and Plan Assess & Plan/Chief Complaint Assessment: VDRF Obesity hypoventilation syndrome Non-compliance Smoker COPD Plan: Monitor closely Vent dependence Diagnosis/Problems Diagnosis/Problems (1) Ventilator dependence Status: Acute (2) Obesity hypoventilation syndrome Status: Chronic (3) COPD (chronic obstructive pulmonary disease) Status: Chronic Qualifiers: COPD type: unspecified COPD Qualified Codes: J44.9 - Chronic obstructive pulmonary disease, unspecified (4) Smoker Status: Chronic Clinical Quality Measures DVT/VTE Risk/Contraindication: Risk Factor Score Per Nursin RFS Level Per Nursing on Admit: 4+=Very High ALEIDA LICEA DO Nov 23, 2018 10:58
--- NOTE | 2018-11-23 13:10 | NUR ---
Pastoral care visit.
--- NOTE | 2018-11-23 14:34 | Progress Note ---
Subjective Date Seen by a Provider: Nov 23, 2018 Time Seen by a Provider: 14:30 Subjective/Events-last exam on vent/sedated. blood gases look good however does become tachypneic with vent ween. otherwise doing well. no fever/chills. WBC normalizing. Focused Exam Lactate Level 11/21/18 07:10: Lactic Acid Level 1.31 11/22/18 08:21: Lactic Acid Level 1.72 Objective Exam Vital Signs Date Time Temp Pulse Resp B/P (MAP) Pulse Ox O2 Delivery O2 Flow Rate FiO2 11/23/18 14:00 88 27 128/64 (85) 94 Mechanical Ventilator 45.00 11/23/18 13:52 80 22 93 45 11/23/18 13:00 88 17 143/63 (89) 93 Mechanical Ventilator 45.00 11/23/18 12:41 91 11/23/18 12:00 93 23 130/60 (83) 93 Mechanical Ventilator 45.00 11/23/18 12:00 93 Mechanical Ventilator 45 11/23/18 11:20 132/60 11/23/18 11:00 90 21 132/62 (85) 95 Mechanical Ventilator 45.00 11/23/18 10:14 82 22 96 45 11/23/18 10:00 83 21 134/65 (88) 96 Mechanical Ventilator 45.00 11/23/18 09:00 97.4 11/23/18 09:00 84 24 121/62 (81) 95 Mechanical Ventilator 45.00 11/23/18 08:58 119/61 11/23/18 08:00 87 21 115/55 (75) 94 Mechanical Ventilator 45.00 11/23/18 08:00 93 Mechanical Ventilator 45 11/23/18 07:00 93 11/23/18 07:00 88 22 124/61 (82) 95 Mechanical Ventilator 45.00 11/23/18 06:30 86 22 95 45 11/23/18 06:25 98.2 87 21 125/59 96 Mechanical Ventilator 3.00 11/23/18 06:00 87 21 125/59 (81) 96 Mechanical Ventilator 45.00 11/23/18 05:00 85 23 134/67 (89) 96 Mechanical Ventilator 45.00 11/23/18 04:00 90 25 144/62 (89) 96 Mechanical Ventilator 45.00 11/23/18 04:00 93 Mechanical Ventilator 45 11/23/18 03:00 90 22 131/64 (86) 94 Mechanical Ventilator 45.00 11/23/18 02:23 86 23 94 45 11/23/18 02:00 88 27 132/59 (83) 94 Mechanical Ventilator 45.00 11/23/18 01:10 98.2 90 26 176/80 94 Mechanical Ventilator 3.00 11/23/18 01:00 90 28 135/59 (84) 95 Mechanical Ventilator 45.00 11/23/18 01:00 90 11/23/18 00:00 90 26 176/80 (112) 94 Mechanical Ventilator 45.00 11/23/18 00:00 94 Mechanical Ventilator 45 11/22/18 23:00 88 25 157/70 (99) 94 Mechanical Ventilator 45.00 11/22/18 22:30 80 23 97 45 11/22/18 22:20 85 26 162/74 97 Mechanical Ventilator 45.00 11/22/18 22:00 84 24 108/51 (70) 94 Mechanical Ventilator 45.00 11/22/18 21:00 85 24 125/61 (82) 95 Mechanical Ventilator 45.00 11/22/18 20:08 98.2 85 24 105/56 97 Mechanical Ventilator 3.00 11/22/18 20:00 94 Mechanical Ventilator 45 11/22/18 20:00 84 24 108/59 (75) 97 Mechanical Ventilator 45.00 11/22/18 19:49 98.2 85 24 105/56 (72) 97 Mechanical Ventilator 45.00 11/22/18 19:00 96 11/22/18 19:00 96 26 122/53 (76) 97 Mechanical Ventilator 45.00 11/22/18 18:32 78 23 98 45 11/22/18 18:00 84 22 98/54 (69) 97 Mechanical Ventilator 45.00 11/22/18 17:00 86 27 115/55 (75) 97 Mechanical Ventilator 45.00 11/22/18 16:35 103/54 11/22/18 16:00 86 26 106/54 (71) 97 Mechanical Ventilator 45.00 11/22/18 16:00 97 Mechanical Ventilator 45 11/22/18 15:51 99.5 11/22/18 15:00 91 25 97/51 (66) 95 Mechanical Ventilator 45.00 11/22/18 14:39 92 25 95 45 I & O 11/23/18 07:00 Intake Total 3290 ml Output Total 2335 ml Balance 955 ml Capillary Refill : Less Than 3 Seconds General Appearance: No Apparent Distress HEENT: PERRL/EOMI Neck: Full Range of Motion Respiratory: Decreased Breath Sounds, Rhonci, Wheezing Cardiovascular: Regular Rate, Rhythm Gastrointestinal: normal bowel sounds, non tender, soft Extremity: Normal Capillary Refill Neurologic/Psychiatric: Alert, Oriented x3 Skin: Normal Color Lymphatic: No Adenopathy Results Lab Laboratory Tests 11/22/18 15:04: Glucometer 255H 11/22/18 15:56: Glucometer 235H 11/22/18 16:52: Glucometer 204H 11/22/18 17:41: Glucometer 170H 11/22/18 18:46: Glucometer 141H 11/22/18 20:17: Glucometer 167H 11/23/18 00:19: Glucometer 271H 11/23/18 03:00: White Blood Count 12.3H, Red Blood Count 3.38L, Hemoglobin 9.6L, Hematocrit 30L, Mean Corpuscular Volume 89, Mean Corpuscular Hemoglobin 28, Mean Corpuscular Hemoglobin Concent 32, Red Cell Distribution Width 14.7H, Platelet Count 202, Mean Platelet Volume 10.1, Neutrophils (%) (Auto) 87H, Lymphocytes (%) (Auto) 6L , Monocytes (%) (Auto) 8, Eosinophils (%) (Auto) 0, Basophils (%) (Auto) 0, Neutrophils # (Auto) 10.6H, Lymphocytes # (Auto) 0.7L, Monocytes # (Auto) 0.9, Eosinophils # (Auto) 0.0, Basophils # (Auto) 0.0, Blood Gas Puncture Site LEFT RADIAL, Blood Gas Patient Temperature 97.5, Arterial Blood pH 7.41, Arterial Blood Partial Pressure CO2 38, Arterial Blood Partial Pressure O2 71L, Arterial Blood HCO3 24, Arterial Blood Total CO2 24.9, Arterial Blood Oxygen Saturation 95, Arterial Blood Base Excess -0.5, Christiano Test ART LINE, Blood Gas Ventilator Setting YES, Blood Gas Inspired Oxygen 45%, Sodium Level 143, Potassium Level 3.6, Chloride Level 108H, Carbon Dioxide Level 21, Anion Gap 14, Blood Urea Nitrogen 40H, Creatinine 1.39H, Estimat Glomerular Filtration Rate 38, BUN/Creatinine Ratio 29, Glucose Level 262H, Calcium Level 8.0L, Phosphorus Level 3.7, Magnesium Level 2.6H, Triglycerides Level 309H 11/23/18 08:40: Glucometer 227H 11/23/18 10:52: Glucometer 228H Microbiology 11/21/18 Blood Culture - Preliminary, Resulted No growth 11/20/18 Gram Stain - Final, Complete 11/20/18 Sputum Culture - Final, Complete Usual upper respiratory chandana 11/20/18 Urine Culture - Final, Complete NO GROWTH Assessment/Plan Assessment/Plan Assess & Plan/Chief Complaint s/p open repair recurrent ventral abd incisional hernia with mesh with multiple medical comorbidities including diabetes, copd and morbid obesity. on vent and sedated for exacerbation copd and non s-t elevation [place]. cont current care. cont abx for high risk pneumonia/wound infxn. will continue to monitor. will start TPN vs. TF's thru NGT if no nutrition by day 7 Clinical Quality Measures DVT/VTE Risk/Contraindication: Risk Factor Score Per Nursin RFS Level Per Nursing on Admit: 4+=Very High WENDI ELIZABETH MD Nov 23, 2018 14:34
[2018-11-23 15:56] LABS: ABG BASE EXCESS 0.8 MMOL/L (-2.5-2.5); ABG OXYGEN SATURATION 93 % (94-100); ABG PCO2 45 MMHG (35-45); ABG PH 7.37 (7.37-7.43); ABG PO2 75 MMHG (79-93); ABG TCO2 26.7 MMOL/L (21.0-31.0)
[2018-11-23 15:57] LABS: ALLENS TEST YES-POS
[2018-11-23 15:58] LABS: PATIENT TEMP 99.9; VENTILATOR YES
[2018-11-23] MEDS: DOCUSATE SODIUM 10 MG/ML 10 ML UDC (COLACE) PO SCH (20:12)
[2018-11-23] MEDS: ATORVASTATIN 40 MG (LIPITOR) TABLET PO SCH (20:12)
--- NOTE | 2018-11-23 22:30 | NUR ---
BROWNISH/GREEN DRAINAGE NOTED ON PT'S GOWN AT THIS TIME. ABD WOUND DRESSING SATURATED. THIS RN CHANGED DRESSING APPROXIMATELY 60-100 ML OF WHAT APPEARED AND SMELLED TO BE LIQUID FECAL MATTER GUSHED FROM WOUND. WOUND CLEANED WITH SALINE AND NEW DRESSING APPLIED. DR. ELIZABETH NOTIFIED AT THIS TIME. NEW ORDER RECEIVED TO "PLACE AN OSTOMY BAG OVER WOUND" AND DR. ELIZABETH SAID HE WOULD BE IN TO ASSESS PT IN THE MORNING. E-ICU ALSO NOTIFIED OF FINDING.
[2018-11-24] VITALS (29 sets, daily range): BP systolic 130–183; BP diastolic 66–97
[2018-11-24] MEDS: fentaNYL INJECTION 100 MCG/2 ML AMP IVP PRN ×2 (01:26→03:43)
[2018-11-24] MEDS: RT-ALBUTEROL/IPRATROPIUM 3 ML (DUONEB) VIAL IH SCH ×5 (01:30→21:25)
[2018-11-24] MEDS: PROPOFOL DRIP (ICU) 100 ML IV SCH ×3 (01:54→07:31)
[2018-11-24 03:44] LABS: BASOPHILS % (AUTO) 0 % (0-10); EOSINOPHILS % (AUTO) 0 % (0-10); HEMATOCRIT 33 % (35-52); LYMPHOCYTES # (AUTO) 0.6 X 10^3 (1.0-4.0); LYMPHOCYTES % (AUTO) 6 % (12-44); MEAN CORPUSCULAR HEMOGLOBIN 28 PG (25-34); MEAN CORPUSCULAR HGB CONC 31 G/DL (32-36); MEAN CORPUSCULAR VOLUME 91 FL (80-99); MEAN PLATELET VOLUME 10.4 FL (7.4-10.4); MONOCYTES % (AUTO) 10 % (0-12); NEUTROPHILS # (AUTO) 8.7 X 10^3 (1.8-7.8); NEUTROPHILS % (AUTO) 84 % (42-75); PLATELET COUNT 260 10^3/uL (130-400); WHITE BLOOD COUNT 10.4 10^3/uL (4.3-11.0)
[2018-11-24 03:45] LABS: ABG BASE EXCESS 1.1 MMOL/L (-2.5-2.5); ABG OXYGEN SATURATION 93 % (94-100); ABG PCO2 41 MMHG (35-45); ABG PH 7.41 (7.37-7.43); ABG PO2 67 MMHG (79-93); ABG TCO2 26.6 MMOL/L (21.0-31.0)
[2018-11-24 03:47] LABS: ALLENS TEST ART LINE; INSPIRED O2 40%; VENTILATOR YES
[2018-11-24 04:24] LABS: CALCIUM 7.9 MG/DL (8.5-10.1); CREATININE SERUM 1.18 MG/DL (0.60-1.30); MAGNESIUM 2.4 MG/DL (1.6-2.4); PHOSPHORUS 3.7 MG/DL (2.3-4.7); POTASSIUM 3.9 MMOL/L (3.6-5.0)
[2018-11-24] MEDS: DEXMEDETOMIDINE INJECTION 1,000 MCG in NS (IVPB) 250 ML IV PRN (04:26)
[2018-11-24] MEDS: inSUlin ASPART (NovoLOG) 1 UNIT/0.01 ML (CHARGE PER UNIT) SC SCH ×5 (04:30→21:03)
--- NOTE | 2018-11-24 05:13 | Pulmonary Progress Note ---
Subjective Date Seen by a Provider: Nov 23, 2018 (late note) Time Seen by a Provider: 05:13 Subjective/Events-last exam Pt sedated on vent. Sepsis Event Evaluation Height, Weight, BMI Height: 5'3.00" Weight: 328lbs. 0.5oz. 148.282066ob; 52.3 BMI Method:Stated Focused Exam Lactate Level 11/21/18 07:10: Lactic Acid Level 1.31 11/22/18 08:21: Lactic Acid Level 1.72 Exam Exam Vital Signs Date Time Temp Pulse Resp B/P (MAP) Pulse Ox O2 Delivery O2 Flow Rate FiO2 11/24/18 04:26 98.0 77 21 171/86 93 Mechanical Ventilator 3.00 11/24/18 04:10 98.0 11/24/18 04:00 93 Mechanical Ventilator 40 11/24/18 02:00 77 21 171/86 (114) 94 Mechanical Ventilator 40.00 11/24/18 01:54 98.7 76 22 172/87 95 Mechanical Ventilator 3.00 11/24/18 01:30 76 22 95 45 11/24/18 01:30 75 22 163/85 (111) 96 Mechanical Ventilator 40.00 11/24/18 01:00 76 11/24/18 01:00 78 22 164/84 (110) 94 Mechanical Ventilator 45.00 11/24/18 00:00 79 23 146/78 (100) 97 Mechanical Ventilator 45.00 11/24/18 00:00 94 Mechanical Ventilator 45 11/24/18 00:00 97.7 11/23/18 23:15 149/69 11/23/18 23:00 82 21 142/71 (94) 95 Mechanical Ventilator 45.00 11/23/18 22:06 72 22 96 45 11/23/18 22:06 Mechanical Ventilator 11/23/18 22:00 76 21 160/66 (97) 96 Mechanical Ventilator 45.00 11/23/18 21:00 72 22 154/62 (92) 97 Mechanical Ventilator 45.00 11/23/18 20:42 81 21 128/69 100 Mechanical Ventilator 11/23/18 20:00 94 Mechanical Ventilator 45 11/23/18 20:00 77 21 126/58 (80) 91 Mechanical Ventilator 45.00 11/23/18 19:08 98.7 76 22 111/59 (76) Mechanical Ventilator 45.00 11/23/18 19:00 80 21 105/57 (73) 95 Mechanical Ventilator 45.00 11/23/18 19:00 84 11/23/18 18:36 79 22 95 45 11/23/18 18:11 123/58 11/23/18 18:00 81 22 122/60 (80) 94 Mechanical Ventilator 45.00 11/23/18 17:00 82 21 121/65 (83) 94 Mechanical Ventilator 45.00 11/23/18 16:00 89 28 132/71 (91) 93 Mechanical Ventilator 45.00 11/23/18 15:59 137/67 11/23/18 15:55 93 Mechanical Ventilator 45 11/23/18 15:53 89 30 93 45 11/23/18 15:00 90 35 124/61 (82) 90 Mechanical Ventilator 45.00 11/23/18 14:30 97 29 95 45 11/23/18 14:00 88 27 128/64 (85) 94 Mechanical Ventilator 45.00 11/23/18 13:52 80 22 93 45 11/23/18 13:00 88 17 143/63 (89) 93 Mechanical Ventilator 45.00 11/23/18 12:41 91 11/23/18 12:00 93 23 130/60 (83) 93 Mechanical Ventilator 45.00 11/23/18 12:00 93 Mechanical Ventilator 45 11/23/18 11:20 132/60 11/23/18 11:00 90 21 132/62 (85) 95 Mechanical Ventilator 45.00 11/23/18 10:14 82 22 96 45 11/23/18 10:00 83 21 134/65 (88) 96 Mechanical Ventilator 45.00 11/23/18 09:00 97.4 11/23/18 09:00 84 24 121/62 (81) 95 Mechanical Ventilator 45.00 11/23/18 08:58 119/61 11/23/18 08:00 87 21 115/55 (75) 94 Mechanical Ventilator 45.00 11/23/18 08:00 93 Mechanical Ventilator 45 11/23/18 07:00 93 11/23/18 07:00 88 22 124/61 (82) 95 Mechanical Ventilator 45.00 11/23/18 06:30 86 22 95 45 11/23/18 06:25 98.2 87 21 125/59 96 Mechanical Ventilator 3.00 11/23/18 06:00 87 21 125/59 (81) 96 Mechanical Ventilator 45.00 I & O 11/24/18 07:00 Intake Total 910 ml Output Total 3600 ml Balance -2690 ml Height & Weight Height: 5'3.00" Weight: 328lbs. 0.5oz. 148.147755os; 52.3 BMI Method:Stated General Appearance: No Apparent Distress, WD/WN, Chronically ill, Obese, Other (sedated) HEENT: PERRL/EOMI Neck: Full Range of Motion Respiratory: Chest Non Tender, Lungs Clear, Normal Breath Sounds, No Accessory Muscle Use, No Respiratory Distress Cardiovascular: Regular Rate, Rhythm, No Edema, No Gallop, No JVD, No Murmur, Normal Peripheral Pulses Capillary Refill: Less Than 3 Seconds Gastrointestinal: normal bowel sounds, non tender, soft Extremity: Normal Capillary Refill Neurologic/Psychiatric: Alert, Oriented x3 Skin: Normal Color Lymphatic: No Adenopathy Results Lab Laboratory Tests 11/23/18 03:00 11/24/18 03:35 Assessment/Plan Assessment/Plan Acute on chronic respiratory failure -pT was intubated 11/20 -Pt failed weaning yesterday. -Will hold weaning today incase Dr. Olvera takes pt back to surgery. -SVNS - change to Q 4 scheduled -Check labs and CXR -Solumedrol 40 IV Q 6 Hyperglycemia -Increase Levemir to 12 units Q12 -Start insulin gtt secondary to BS >300 Anion gapped metabolic acidosis r/o DKA vs lactic acidosis -Check beta hydroxybutyrate, UA, and LA Morbid obesity with OHS DM II S/p Hernia repair surgery -Dr. Olvera following -It appears pt has developed a fistula. RN notes diarrhea oozing from abd. Hx of severe COPD oxygen dependent Acute on chronic renal failure -Monitor -Increase IVF -Hold ACEI for now -Hold metformin Elevated troponin-- probably secondary to respiratory failure -Check echo -Consult cardiology MERCEDES GARNICA DO Nov 24, 2018 05:13
[2018-11-24] MEDS ORDERED: hydrALAZINE (APESOLINE) 20 MG/ML VIAL IV PRN (05:15)
--- NOTE | 2018-11-24 05:19 | Pulmonary Progress Note ---
Subjective Time Seen by a Provider: 05:36 Subjective/Events-last exam Pt is sedated on vent. Sepsis Event Evaluation Height, Weight, BMI Height: 5'3.00" Weight: 328lbs. 0.5oz. 148.762587qp; 52.3 BMI Method:Stated Focused Exam Lactate Level 11/21/18 07:10: Lactic Acid Level 1.31 11/22/18 08:21: Lactic Acid Level 1.72 Exam Exam Vital Signs Date Time Temp Pulse Resp B/P (MAP) Pulse Ox O2 Delivery O2 Flow Rate FiO2 11/24/18 05:00 73 21 182/84 (116) 96 Mechanical Ventilator 40.00 11/24/18 04:26 98.0 77 21 171/86 93 Mechanical Ventilator 3.00 11/24/18 04:10 98.0 11/24/18 04:00 75 21 162/84 (110) 95 Mechanical Ventilator 40.00 11/24/18 04:00 93 Mechanical Ventilator 40 11/24/18 03:48 73 22 95 40 11/24/18 03:00 76 21 174/87 (116) 95 Mechanical Ventilator 40.00 11/24/18 02:00 77 21 171/86 (114) 94 Mechanical Ventilator 40.00 11/24/18 01:54 98.7 76 22 172/87 95 Mechanical Ventilator 3.00 11/24/18 01:30 76 22 95 45 11/24/18 01:30 75 22 163/85 (111) 96 Mechanical Ventilator 40.00 11/24/18 01:00 76 11/24/18 01:00 78 22 164/84 (110) 94 Mechanical Ventilator 45.00 11/24/18 00:00 79 23 146/78 (100) 97 Mechanical Ventilator 45.00 11/24/18 00:00 94 Mechanical Ventilator 45 11/24/18 00:00 97.7 11/23/18 23:15 149/69 11/23/18 23:00 82 21 142/71 (94) 95 Mechanical Ventilator 45.00 11/23/18 22:06 72 22 96 45 11/23/18 22:06 Mechanical Ventilator 11/23/18 22:00 76 21 160/66 (97) 96 Mechanical Ventilator 45.00 11/23/18 21:00 72 22 154/62 (92) 97 Mechanical Ventilator 45.00 11/23/18 20:42 81 21 128/69 100 Mechanical Ventilator 11/23/18 20:00 94 Mechanical Ventilator 45 11/23/18 20:00 77 21 126/58 (80) 91 Mechanical Ventilator 45.00 11/23/18 19:08 98.7 76 22 111/59 (76) Mechanical Ventilator 45.00 11/23/18 19:00 80 21 105/57 (73) 95 Mechanical Ventilator 45.00 11/23/18 19:00 84 11/23/18 18:36 79 22 95 45 11/23/18 18:11 123/58 11/23/18 18:00 81 22 122/60 (80) 94 Mechanical Ventilator 45.00 11/23/18 17:00 82 21 121/65 (83) 94 Mechanical Ventilator 45.00 11/23/18 16:00 89 28 132/71 (91) 93 Mechanical Ventilator 45.00 11/23/18 15:59 137/67 11/23/18 15:55 93 Mechanical Ventilator 45 11/23/18 15:53 89 30 93 45 11/23/18 15:00 90 35 124/61 (82) 90 Mechanical Ventilator 45.00 11/23/18 14:30 97 29 95 45 11/23/18 14:00 88 27 128/64 (85) 94 Mechanical Ventilator 45.00 11/23/18 13:52 80 22 93 45 11/23/18 13:00 88 17 143/63 (89) 93 Mechanical Ventilator 45.00 11/23/18 12:41 91 11/23/18 12:00 93 23 130/60 (83) 93 Mechanical Ventilator 45.00 11/23/18 12:00 93 Mechanical Ventilator 45 11/23/18 11:20 132/60 11/23/18 11:00 90 21 132/62 (85) 95 Mechanical Ventilator 45.00 11/23/18 10:14 82 22 96 45 11/23/18 10:00 83 21 134/65 (88) 96 Mechanical Ventilator 45.00 11/23/18 09:00 97.4 11/23/18 09:00 84 24 121/62 (81) 95 Mechanical Ventilator 45.00 11/23/18 08:58 119/61 11/23/18 08:00 87 21 115/55 (75) 94 Mechanical Ventilator 45.00 11/23/18 08:00 93 Mechanical Ventilator 45 11/23/18 07:00 93 11/23/18 07:00 88 22 124/61 (82) 95 Mechanical Ventilator 45.00 11/23/18 06:30 86 22 95 45 11/23/18 06:25 98.2 87 21 125/59 96 Mechanical Ventilator 3.00 11/23/18 06:00 87 21 125/59 (81) 96 Mechanical Ventilator 45.00 I & O 11/24/18 07:00 Intake Total 910 ml Output Total 3600 ml Balance -2690 ml Height & Weight Height: 5'3.00" Weight: 328lbs. 0.5oz. 148.161266gu; 52.3 BMI Method:Stated General Appearance: No Apparent Distress, WD/WN, Chronically ill, Obese, Other (sedated) HEENT: PERRL/EOMI Neck: Full Range of Motion Respiratory: Chest Non Tender, Lungs Clear, Normal Breath Sounds, No Accessory Muscle Use, No Respiratory Distress Cardiovascular: Regular Rate, Rhythm, No Edema, No Gallop, No JVD, No Murmur, Normal Peripheral Pulses Capillary Refill: Less Than 3 Seconds Gastrointestinal: normal bowel sounds, non tender, soft Extremity: Normal Capillary Refill Neurologic/Psychiatric: Alert, Oriented x3 Skin: Normal Color Lymphatic: No Adenopathy Results Lab Laboratory Tests 11/23/18 03:00 11/24/18 03:35 Assessment/Plan Assessment/Plan Acute on chronic respiratory failure -pT was intubated 11/20 -Pt failed weaning yesterday. -Will hold weaning today incase Dr. Olvera takes pt back to surgery. -SVNS - change to Q 4 scheduled -Check labs and CXR -Solumedrol 40 IV Q 6 Hyperglycemia -Increase Levemir to 12 units Q12 -Start insulin gtt secondary to BS >300 Anion gapped metabolic acidosis r/o DKA vs lactic acidosis -Check beta hydroxybutyrate, UA, and LA Morbid obesity with OHS DM II S/p Hernia repair surgery -Dr. Olvera following -It appears pt has developed a fistula. RN notes diarrhea oozing from abd. Hx of severe COPD oxygen dependent Acute on chronic renal failure -Monitor -Increase IVF -Hold ACEI for now -Hold metformin Elevated troponin-- probably secondary to respiratory failure -Check echo -Consult cardiology MERCEDES GARNICA DO Nov 24, 2018 05:19
[2018-11-24] MEDS: MAGNESIUM 1 GM/100 ML IVPB 100 ML IV SCH (05:39)
[2018-11-24] MEDS: KCL 20 MEQ TAB (K-DUR) PO SCH (05:39)
[2018-11-24] MEDS: POTASSIUM CL 10MEQ/50ML IVPB 50 ML IV SCH (05:39)
--- NOTE | 2018-11-24 06:27 | Cardiology Progress Note ---
Subjective Date Seen by Provider: Nov 24, 2018 Time Seen by Provider: 06:25 Subjective/Events-last exam patient is intubated and sedated, failed weaning yesterday Review of Systems General: Other (intubated and sedated, unable to provide review of systems) Focused Exam Lactate Level 11/21/18 07:10: Lactic Acid Level 1.31 11/22/18 08:21: Lactic Acid Level 1.72 Objective-Cardiology Exam Last Set of Vital Signs Vital Signs 11/24/18 11/24/18 11/24/18 04:00 04:26 06:00 Temp 98.0 Pulse 71 Resp 21 B/P (MAP) 177/82 (113) Pulse Ox 96 O2 Delivery Mechanical Ventilator O2 Flow Rate 40.00 FiO2 40 Capillary Refill : Less Than 3 Seconds I&O Intake and Output 11/24/18 00:00 Intake Total 1640 ml Output Total 3100 ml Balance -1460 ml Intake Oral 0 ml IV Total 1550 ml Other 90 ml Output Urine Total 3100 ml General: Severe Distress, Other (Sedated and intubated) HEENT: Atraumatic Neck: Supple Lungs: Normal Air Movement Heart: Regular Rate, Normal S1, Normal S2 Abdomen: Other (diminished bowel sounds, new fistula with discharge at the surgical site) Extremities: No Clubbing, Other (Edema) Skin: No Rashes Neuro: Other (Sedated and intubated) Psych/Mental Status: Other (Sedated and intubated) Results Lab Laboratory Tests 11/24/18 03:35 A/P-Cardiology Admission Diagnosis Acute respiratory failure Non-ST elevation myocardial infarction, type II VT Hypertension Hyperlipidemia Assessment/Plan Acute respiratory failure, ventilatory dependent, failed weaning yesterday., Managed by Dr. Natasha Kelly fistula postoperatively, 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 Olvera Acute non-ST elevation myocardial infarction, poor R-wave progression in the anterior leads, probably type II myocardial infarctions due to respiratory failure, underlying coronary artery disease cannot be entirely excluded. Echocardiogram showed normal LV function. Continue with conservative management at this time, continue to monitor. Troponin level is trending down, no acute EKG changes suggestive of active ischemia, Continue to monitor at this time. Hypertension, was borderline hypotensive, currently hypertensive, I will change Lopressor to IV and monitor blood pressure Hyperlipidemia maintained on Lipitor COPD, oxygen dependent, progressed into respiratory failure after abdominal surgery, intubated. Managed by primary care team Morbid obesity Diabetes mellitus, followed and managed by primary care physician History of tobaccoism Clinical Quality Measures DVT/VTE Risk/Contraindication: Risk Factor Score Per Nursin RFS Level Per Nursing on Admit: 4+=Very High AUSTEN MARTÍNEZ MD Nov 24, 2018 06:27
[2018-11-24] MEDS: LACTATED RINGERS 1,000 ML IV SCH (06:37)
[2018-11-24] MEDS: meTOprolol 5 MG/5 ML (LOPRESSOR) VIAL IV SCH ×3 (06:42→18:42)
--- NOTE | 2018-11-24 07:04 | Diagnostic Imaging Report ---
Indication: Shortness of breath. Portable chest 3:15 AM Findings: There is an ET tube projecting over the trachea. There is an NG tube that appears to pass below the diaphragm. Left subclavian central line tip projects over the SVC. Heart size and pulmonary vascularity are both mildly increased but this may just be manifestation of body habitus. There is no appreciable effusion or pneumothorax. Impression: Suboptimal inspiration. Vascular congestion possibly related to body habitus. Dictated by: Dictated on workstation # [id number]
[2018-11-24] MEDS: PIPERACILLIN/TAZOBACTAM (BULK) 4.5 GM in NS (IVPB) 100 ML IV SCH ×2 (07:30→16:50)
--- NOTE | 2018-11-24 07:38 | Diagnostic Imaging Report ---
INDICATION: Respiratory distress. Study compared with exam earlier the same day. This film is entered at 10:48 PM. FINDINGS: ET tube above the thomas. OG catheter goes beneath the diaphragm. Left subclavian catheter is at the SVC. Some mild perihilar and basilar partial atelectasis. No effusion or pneumothorax. IMPRESSION: Stable chest. Dictated by: Dictated on workstation # [id number]
[2018-11-24] MEDS: DOCUSATE SODIUM 10 MG/ML 10 ML UDC (COLACE) PO SCH ×3 (07:51→21:29)
[2018-11-24] MEDS: methylPREDNISolone 40 MG/ML (Solu-MEDROL) VIAL IV SCH ×2 (07:51→21:03)
[2018-11-24] MEDS: PANTOPRAZOLE 40 MG (PROTONIX) VIAL IV SCH (07:51)
[2018-11-24] MEDS: amLODIPine 10 MG (NORVASC) TAB PO SCH (07:52)
[2018-11-24] MEDS: VITAMIN D3 5,000 UNITS (CHOLECALCIFEROL ) CAPSULE PO SCH (07:52)
[2018-11-24] MEDS: DULoxetine 30 MG (CYMBALTA) CAP PO SCH (07:52)
[2018-11-24] MEDS: LINAGLIPTIN (TRADJENTA) 5 MG TABLET PO SCH (07:52)
[2018-11-24] MEDS: OMEGA 3 (FISH OIL) 1000 MG CAP PO SCH (07:52)
[2018-11-24] MEDS: ENOXAPARIN 60 MG/0.6 ML (LOVENOX) SYR SC SCH ×2 (07:53→21:10)
[2018-11-24] MEDS: MAGNESIUM OXIDE (MAG-OX)400 MG TAB PO SCH (07:53)
[2018-11-24] MEDS: buPROPion SR 150 MG (WELLBUTRIN SR) TAB PO SCH (07:53)
[2018-11-24] MEDS ORDERED: meTOprolol TARTRATE 25 MG (LOPRESSOR) TABLET PO SCH ×2 (09:00)
[2018-11-24] MEDS ORDERED: OCTREOTIDE INJECTION 500 MCG in NS (IVPB) 99 ML IV SCH (09:15)
[2018-11-24] MEDS ORDERED: TPN IV SCH (09:15)
--- NOTE | 2018-11-24 10:32 | Progress Note - Hospitalist ---
Subjective HPI/CC On Admission Date Seen by Provider: Nov 24, 2018 Time Seen by Provider: 09:00 I was asked to see patient in consultation For elevated blood sugars. The patient was somnolent and could not stay awake during my conversation and exam. Stat blood sugar was 250. the patient recently had some pain medication and I am concerned that she has CO2 retention with chronic apnea. blood gas is pending. Subjective/Events-last exam Pt remains intubated Son at the bedside Check meds and labs Reviewed consultation notes from Dr. Natasha Kaur's expertise is appreciated Focused Exam Lactate Level 11/22/18 08:21: Lactic Acid Level 1.72 Objective Exam Vital Signs Vital Signs Date Time Temp Pulse Resp B/P (MAP) Pulse Ox O2 Delivery O2 Flow Rate FiO2 11/24/18 20:00 85 12 183/95 (124) 95 Vapotherm 50.00 40.00 11/24/18 20:00 98.2 11/24/18 16:00 50 Capillary Refill : Less Than 3 Seconds General Appearance: No Apparent Distress, WD/WN, Chronically ill, Obese Respiratory: Chest Non Tender, Lungs Clear, Normal Breath Sounds, No Accessory Muscle Use, No Respiratory Distress Cardiovascular: Regular Rate, Rhythm, No Edema, No Gallop, No JVD, No Murmur, Normal Peripheral Pulses Results/Procedures Lab Laboratory Tests 11/24/18 03:35 Patient resulted labs reviewed. Assessment/Plan Assessment and Plan Assess & Plan/Chief Complaint Assessment: VDRF Obesity hypoventilation syndrome Non-compliance Smoker COPD Plan: Monitor closely Vent dependence Diagnosis/Problems Diagnosis/Problems (1) Ventilator dependence Status: Acute (2) Obesity hypoventilation syndrome Status: Chronic (3) COPD (chronic obstructive pulmonary disease) Status: Chronic Qualifiers: COPD type: unspecified COPD Qualified Codes: J44.9 - Chronic obstructive pulmonary disease, unspecified (4) Smoker Status: Chronic Clinical Quality Measures DVT/VTE Risk/Contraindication: Risk Factor Score Per Nursin RFS Level Per Nursing on Admit: 4+=Very High ALEIDA LICEA DO Nov 24, 2018 10:32
[2018-11-24 11:09] LABS: ABG BASE EXCESS 1.7 MMOL/L (-2.5-2.5); ABG OXYGEN SATURATION 93 % (94-100); ABG PCO2 49 MMHG (35-45); ABG PH 7.35 (7.37-7.43); ABG PO2 75 MMHG (79-93); ABG TCO2 28.1 MMOL/L (21.0-31.0)
[2018-11-24 11:10] LABS: ALLENS TEST ARTLINE; PATIENT TEMP 99.1; VENTILATOR YES
[2018-11-24 11:11] LABS: INSPIRED O2 40%
[2018-11-24 12:18] LABS: ABG BASE EXCESS 1.8 MMOL/L (-2.5-2.5); ABG OXYGEN SATURATION 92 % (94-100); ABG PCO2 48 MMHG (35-45); ABG PH 7.37 (7.37-7.43); ABG PO2 72 MMHG (79-93)
[2018-11-24 12:19] LABS: ALLENS TEST ARTLINE; INSPIRED O2 40%; PATIENT TEMP 99.1; VENTILATOR YES
[2018-11-24] MEDS: OCTREOTIDE INJECTION 500 MCG in NS (IVPB) 97.5 ML IV SCH ×2 (12:53→21:02)
--- NOTE | 2018-11-24 13:38 | NUR ---
TPN: TPN TO START AT 57 ML/HR PROVIDING 740 KCAL AND 100 GM PROTEIN. PT ON PROPOFOL PROVIDING 950 KCAL LIPIDS. TOTAL KCAL FROM BOTH EQUALS 1690 KCAL. PT. RECEIVING LR AT 30 ML/HR, THAT WITH TPN PROVIDING 87 ML/HR. GOAL: 1300 KCAL WITH 130 GM PROTEIN.
[2018-11-24] MEDS ORDERED: SODIUM ACETATE IV SCH ×10 (17:00)
[2018-11-24] MEDS ORDERED: SODIUM PHOSPHATE IV SCH ×10 (17:00)
[2018-11-24] MEDS ORDERED: [UNRECOGNIZED DRUG - OTHER] IV SCH ×10 (17:00)
[2018-11-24] MEDS ORDERED: POTASSIUM CHLORIDE IV SCH ×10 (17:00)
--- NOTE | 2018-11-24 17:00 | Diagnostic Imaging Report ---
PROCEDURE: CT abdomen and pelvis without contrast. TECHNIQUE: Multiple contiguous axial images were obtained through the abdomen and pelvis without the use of intravenous contrast. Auto Exposure Controls were utilized during the CT exam to meet ALARA standards for radiation dose reduction. INDICATION: Possible abdominal abscess. Comparison is 09/29/2018. FINDINGS: There has been a fairly extensive subcutaneous gas and gas extending along the external rectus abdominis fascial plane. In the site of the previously seen hernia there is now a fluid collection measuring 6.5 x 3.3 cm. Gas is present within or adjacent to this hernia sac. Limited views of the lower thorax reveal small bilateral pleural effusions with overlying atelectasis. Liver is normal. No focal liver lesions are seen. There is trace perihepatic ascites. Gallbladder is normal. No biliary ductal dilation. Pancreas, spleen and adrenal glands are normal. Renal stones are seen in both kidneys, unchanged from prior exam. No hydronephrosis. The left lower pole cyst is also unchanged. Urinary bladder is decompressed. There is diverticulosis without diverticulitis. No bowel wall thickening. No free intraperitoneal air. No abdominal or pelvic lymphadenopathy. There are no suspicious osseous lesions. IMPRESSION: 1. New fairly extensive subcutaneous gas extending along the fascial planes of the external aspect of the rectus abdominis and subcutaneous fascia. Findings concerning for necrotizing fascial infection. In addition, in the region of the previously seen hernia there is now a 6.5 x 3.3 cm fluid collection concerning for an abscess. Dictated by: Dictated on workstation # [id number]
--- NOTE | 2018-11-24 18:21 | Progress Note ---
Subjective Date Seen by a Provider: Nov 24, 2018 Time Seen by a Provider: 13:00 Subjective/Events-last exam doing well. extubated. has developed small bowel fistula during cardio-pulmonary process(hx severe copd and sleep apnea). WBC normal. no fevers. ostomy bag applied. Focused Exam Lactate Level 11/22/18 08:21: Lactic Acid Level 1.72 Objective Exam Vital Signs Date Time Temp Pulse Resp B/P (MAP) Pulse Ox O2 Delivery O2 Flow Rate FiO2 11/24/18 18:00 95 24 171/97 (121) 91 Vapotherm 50.00 40.00 11/24/18 17:00 90 24 179/84 (115) 94 Vapotherm 50.00 40.00 11/24/18 16:00 79 19 156/69 (98) 98 Vapotherm 50.00 40.00 11/24/18 16:00 98.9 11/24/18 16:00 93 Vapotherm 40.00 50 11/24/18 15:00 84 17 173/74 (107) 90 Vapotherm 50.00 40.00 11/24/18 14:34 94 Vapotherm 50 11/24/18 14:00 84 24 170/71 (104) 95 Vapotherm 50.00 40.00 11/24/18 13:22 79 24 95 40 11/24/18 13:00 80 15 181/79 (113) 91 Vapotherm 50.00 40.00 11/24/18 12:21 84 11/24/18 12:00 84 23 165/69 (101) 94 Mechanical Ventilator 40.00 11/24/18 12:00 96 Mechanical Ventilator 40 11/24/18 11:00 80 29 130/66 (87) 95 Mechanical Ventilator 40.00 11/24/18 10:31 77 21 94 40 11/24/18 10:00 71 22 161/76 (104) 95 Mechanical Ventilator 40.00 11/24/18 09:48 70 22 92 40 11/24/18 09:00 68 21 170/80 (110) 96 Mechanical Ventilator 40.00 11/24/18 08:00 99.1 11/24/18 08:00 96 Mechanical Ventilator 40 11/24/18 08:00 73 21 168/79 (108) 96 Mechanical Ventilator 40.00 11/24/18 07:31 74 11/24/18 07:00 74 11/24/18 07:00 72 21 167/77 (107) 96 Mechanical Ventilator 40.00 11/24/18 06:25 71 22 95 40 11/24/18 06:00 71 21 177/82 (113) 96 Mechanical Ventilator 40.00 11/24/18 05:00 73 21 182/84 (116) 96 Mechanical Ventilator 40.00 11/24/18 04:26 98.0 77 21 171/86 93 Mechanical Ventilator 3.00 11/24/18 04:10 98.0 11/24/18 04:00 75 21 162/84 (110) 95 Mechanical Ventilator 40.00 11/24/18 04:00 93 Mechanical Ventilator 40 11/24/18 03:48 73 22 95 40 11/24/18 03:00 76 21 174/87 (116) 95 Mechanical Ventilator 40.00 11/24/18 02:00 77 21 171/86 (114) 94 Mechanical Ventilator 40.00 11/24/18 01:54 98.7 76 22 172/87 95 Mechanical Ventilator 3.00 11/24/18 01:30 76 22 95 45 11/24/18 01:30 75 22 163/85 (111) 96 Mechanical Ventilator 40.00 11/24/18 01:00 76 11/24/18 01:00 78 22 164/84 (110) 94 Mechanical Ventilator 45.00 11/24/18 00:00 79 23 146/78 (100) 97 Mechanical Ventilator 45.00 11/24/18 00:00 94 Mechanical Ventilator 45 11/24/18 00:00 97.7 11/23/18 23:15 149/69 11/23/18 23:00 82 21 142/71 (94) 95 Mechanical Ventilator 45.00 11/23/18 22:06 72 22 96 45 11/23/18 22:06 Mechanical Ventilator 11/23/18 22:00 76 21 160/66 (97) 96 Mechanical Ventilator 45.00 11/23/18 21:00 72 22 154/62 (92) 97 Mechanical Ventilator 45.00 11/23/18 20:42 81 21 128/69 100 Mechanical Ventilator 11/23/18 20:00 94 Mechanical Ventilator 45 11/23/18 20:00 77 21 126/58 (80) 91 Mechanical Ventilator 45.00 11/23/18 19:08 98.7 76 22 111/59 (76) Mechanical Ventilator 45.00 11/23/18 19:00 80 21 105/57 (73) 95 Mechanical Ventilator 45.00 11/23/18 19:00 84 11/23/18 18:36 79 22 95 45 I & O 11/24/18 07:00 Intake Total 1720 ml Output Total 4000 ml Balance -2280 ml Capillary Refill : Less Than 3 Seconds General Appearance: No Apparent Distress HEENT: PERRL/EOMI Neck: Full Range of Motion Respiratory: Rhonci Cardiovascular: Regular Rate, Rhythm Gastrointestinal: normal bowel sounds, non tender, soft Extremity: Normal Capillary Refill Neurologic/Psychiatric: Alert, Oriented x3 Skin: Normal Color Lymphatic: No Adenopathy Results Lab Laboratory Tests 11/23/18 20:04: Glucometer 210H 11/23/18 23:36: Glucometer 174H 11/24/18 03:35: White Blood Count 10.4, Red Blood Count 3.58L, Hemoglobin 10.0L, Hematocrit 33L, Mean Corpuscular Volume 91, Mean Corpuscular Hemoglobin 28, Mean Corpuscular Hemoglobin Concent 31L, Red Cell Distribution Width 15.0H, Platelet Count 260, Mean Platelet Volume 10.4, Neutrophils (%) (Auto) 84H, Lymphocytes (%) (Auto) 6L , Monocytes (%) (Auto) 10, Eosinophils (%) (Auto) 0, Basophils (%) (Auto) 0, Neutrophils # (Auto) 8.7H, Lymphocytes # (Auto) 0.6L, Monocytes # (Auto) 1.0, E osinophils # (Auto) 0.0, Basophils # (Auto) 0.0, Sodium Level 145, Potassium Level 3.9, Chloride Level 109H, Carbon Dioxide Level 21, Anion Gap 15H, Blood Urea Nitrogen 38H, Creatinine 1.18, Estimat Glomerular Filtration Rate 46, BUN/Creatinine Ratio 32, Glucose Level 258H, Calcium Level 7.9L, Phosphorus Level 3.7, Magnesium Level 2.4 11/24/18 03:40: Blood Gas Puncture Site L RAD, Blood Gas Patient Temperature 98.0, Arterial Blood pH 7.41, Arterial Blood Partial Pressure CO2 41, Arterial Blood Partial Pressure O2 67L, Arterial Blood HCO3 25, Arterial Blood Total CO2 26.6, Arterial Blood Oxygen Saturation 93L, Arterial Blood Base Excess 1.1, Christiano Test ART LINE, Blood Gas Ventilator Setting YES, Blood Gas Inspired Oxygen 40% 11/24/18 07:48: Glucometer 201H 11/24/18 10:00: Triglycerides Level 404#H 11/24/18 11:04: Blood Gas Puncture Site L RAD ARTLINE, Blood Gas Patient Temperature 99.1, Arterial Blood pH 7.35L, Arterial Blood Partial Pressure CO2 49H, Arterial Blood Partial Pressure O2 75L, Arterial Blood HCO3 27, Arterial Blood Total CO2 28.1, Arterial Blood Oxygen Saturation 93L, Arterial Blood Base Excess 1.7, Christiano Test ARTLINE, Blood Gas Ventilator Setting YES, Blood Gas Inspired Oxygen 40% 11/24/18 11:45: Glucometer 197H 11/24/18 12:11: Blood Gas Puncture Site L RAD ARTLINE, Blood Gas Patient Temperature 99.1, Arterial Blood pH 7.37, Arterial Blood Partial Pressure CO2 48H, Arterial Blood Partial Pressure O2 72L, Arterial Blood HCO3 27, Arterial Blood Total CO2 28.0, Arterial Blood Oxygen Saturation 92L, Arterial Blood Base Excess 1.8, Christiano Test ARTLINE, Blood Gas Ventilator Setting YES, Blood Gas Inspired Oxygen 40% 11/24/18 16:53: Glucometer 96 Microbiology 11/21/18 Blood Culture - Preliminary, Resulted No growth 11/20/18 Gram Stain - Final, Complete 11/20/18 Sputum Culture - Final, Complete Usual upper respiratory chandana 11/20/18 Urine Culture - Final, Complete NO GROWTH Assessment/Plan Assessment/Plan Assess & Plan/Chief Complaint s/p open repair recurrent ventral abd incisional hernia with mesh with multiple medical comorbidities including diabetes, copd and morbid obesity. exacerbation copd and non s-t elevation NM. cont abx for high risk pneumonia/wound infxn. enterocutaneous fistula. will start TPN and octreotide gtt. NPO. CT abd in am. Clinical Quality Measures DVT/VTE Risk/Contraindication: Risk Factor Score Per Nursin RFS Level Per Nursing on Admit: 4+=Very High WENDI ELIZABETH MD Nov 24, 2018 18:21
[2018-11-24] MEDS: ATORVASTATIN 40 MG (LIPITOR) TABLET PO SCH ×2 (21:03→21:29)
[2018-11-24] MEDS: RT-ADVAIR HFA 115/21 MCG PER PUFF IH SCH (21:25)
[2018-11-24] MEDS: fentaNYL INJECTION 100 MCG/2 ML AMP IV PRN ×2 (21:48→23:11)
[2018-11-25] VITALS (18 sets, daily range): BP systolic 95–175; BP diastolic 74–101
[2018-11-25] MEDS: fentaNYL INJECTION 100 MCG/2 ML AMP IV PRN ×5 (00:28→20:15)
[2018-11-25] MEDS: inSUlin ASPART (NovoLOG) 1 UNIT/0.01 ML (CHARGE PER UNIT) SC SCH ×6 (00:32→21:27)
[2018-11-25] MEDS: meTOprolol 5 MG/5 ML (LOPRESSOR) VIAL IV SCH ×4 (00:47→18:22)
[2018-11-25] MEDS: PIPERACILLIN/TAZOBACTAM (BULK) 4.5 GM in NS (IVPB) 100 ML IV SCH ×3 (00:47→15:48)
[2018-11-25] MEDS: RT-ALBUTEROL/IPRATROPIUM 3 ML (DUONEB) VIAL IH SCH ×6 (02:40→21:21)
[2018-11-25 03:37] LABS: BASOPHILS % (AUTO) 0 % (0-10); EOSINOPHILS % (AUTO) 0 % (0-10); HEMATOCRIT 26 % (35-52); HEMOGLOBIN 7.8 G/DL (11.5-16.0); LYMPHOCYTES # (AUTO) 0.7 X 10^3 (1.0-4.0); LYMPHOCYTES % (AUTO) 7 % (12-44); MEAN CORPUSCULAR HEMOGLOBIN 28 PG (25-34); MEAN CORPUSCULAR HGB CONC 30 G/DL (32-36); MEAN CORPUSCULAR VOLUME 93 FL (80-99); MEAN PLATELET VOLUME 9.8 FL (7.4-10.4); MONOCYTES % (AUTO) 10 % (0-12); NEUTROPHILS # (AUTO) 8.7 X 10^3 (1.8-7.8); NEUTROPHILS % (AUTO) 83 % (42-75); PLATELET COUNT 207 10^3/uL (130-400); RED CELL DISTRIBUTION WIDTH 14.8 % (10.0-14.5); WHITE BLOOD COUNT 10.4 10^3/uL (4.3-11.0)
[2018-11-25 03:38] LABS: ABG BASE EXCESS 6.5 MMOL/L (-2.5-2.5); ABG OXYGEN SATURATION 93 % (94-100); ABG PCO2 53 MMHG (35-45); ABG PH 7.39 (7.37-7.43); ABG PO2 72 MMHG (79-93); ABG TCO2 32.9 MMOL/L (21.0-31.0)
[2018-11-25 03:44] LABS: ALLENS TEST ARTLINE; INSPIRED O2 35; PATIENT TEMP 99.2; VENTILATOR NO
[2018-11-25 03:57] LABS: ALANINE AMINOTRANSFERASE 10 U/L (0-55); ALBUMIN 1.8 GM/DL (3.2-4.5); ALKALINE PHOSPHATASE 36 U/L (40-136); BILIRUBIN,TOTAL 0.2 MG/DL (0.1-1.0); BUN/CREATININE RATIO 37; CARBON DIOXIDE 18 MMOL/L (21-32); CHLORIDE 120 MMOL/L (98-107); CREATININE SERUM 0.52 MG/DL (0.60-1.30); GFR ESTIMATED > 60; GLUCOSE 147 MG/DL (70-105); PHOSPHORUS 2.1 MG/DL (2.3-4.7); SODIUM 147 MMOL/L (135-145); TOTAL PROTEIN 3.8 GM/DL (6.4-8.2); TRIGLYCERIDES 208 MG/DL (<150)
[2018-11-25 04:28] LABS: CALCIUM 4.8 MG/DL (8.5-10.1); MAGNESIUM 0.9 MG/DL (1.6-2.4); POTASSIUM 2.3 MMOL/L (3.6-5.0)
[2018-11-25 05:24] LABS: ALANINE AMINOTRANSFERASE 17 U/L (0-55); ALBUMIN 3.1 GM/DL (3.2-4.5); ALKALINE PHOSPHATASE 67 U/L (40-136); BILIRUBIN,TOTAL 0.4 MG/DL (0.1-1.0); BUN/CREATININE RATIO 33; CALCIUM 8.3 MG/DL (8.5-10.1); CARBON DIOXIDE 29 MMOL/L (21-32); CHLORIDE 101 MMOL/L (98-107); CREATININE SERUM 0.89 MG/DL (0.60-1.30); GFR ESTIMATED > 60; GLUCOSE 241 MG/DL (70-105); MAGNESIUM 1.7 MG/DL (1.6-2.4); PHOSPHORUS 3.3 MG/DL (2.3-4.7); POTASSIUM 3.9 MMOL/L (3.6-5.0); SODIUM 144 MMOL/L (135-145); TOTAL PROTEIN 6.9 GM/DL (6.4-8.2); TRIGLYCERIDES 396 MG/DL (<150)
[2018-11-25] MEDS: POTASSIUM CL 10MEQ/50ML IVPB 50 ML IV SCH (05:28)
[2018-11-25] MEDS: MAGNESIUM 1 GM/100 ML IVPB 100 ML IV SCH ×3 (05:28→08:02)
[2018-11-25] MEDS: KCL 20 MEQ TAB (K-DUR) PO SCH (05:28)
[2018-11-25] MEDS: OCTREOTIDE INJECTION 500 MCG in NS (IVPB) 97.5 ML IV SCH ×2 (06:02→15:48)
[2018-11-25 06:57] LABS: BAND NEUTROPHILS 4 %; BASOPHILS % (MANUAL) 0 %; EOSINOPHILS % (MANUAL) 0 %; LYMPHOCYTES % (MANUAL) 4 %; METAMYELOCYTES % 5 %; MONOCYTES % (MANUAL) 11 %; MYELOCYTES % 1 %; NEUTROPHILS % (MANUAL) 75 %; RBC MORPH NORMAL
[2018-11-25] MEDS: RT-ADVAIR HFA 115/21 MCG PER PUFF IH SCH ×2 (07:18→18:48)
--- NOTE | 2018-11-25 07:24 | Pulmonary Progress Note ---
Subjective Time Seen by a Provider: 08:44 Subjective/Events-last exam Pt appears to be doing well off vent. Sepsis Event Evaluation Height, Weight, BMI Height: 5'3.00" Weight: 325lbs. 0.5oz. [id number]; 52.3 BMI Method:Stated Focused Exam Lactate Level 11/22/18 08:21: Lactic Acid Level 1.72 Exam Exam Vital Signs Date Time Temp Pulse Resp B/P (MAP) Pulse Ox O2 Delivery O2 Flow Rate FiO2 11/25/18 06:00 74 12 168/89 (115) 100 Vapotherm 50.00 30.00 11/25/18 05:00 84 12 161/90 (113) 98 Vapotherm 50.00 30.00 11/25/18 04:00 84 15 95/79 (84) 98 Vapotherm 50.00 30.00 11/25/18 04:00 98 Vapotherm 50.00 35 11/25/18 03:00 98 17 136/101 (113) 96 Vapotherm 50.00 30.00 11/25/18 02:40 98 Vapotherm 30.00 50 11/25/18 02:00 84 14 163/87 (112) 98 Vapotherm 50.00 40.00 11/25/18 01:00 86 15 165/93 (117) 97 Vapotherm 50.00 40.00 11/25/18 01:00 81 11/25/18 00:00 92 20 158/85 (109) 97 Vapotherm 50.00 40.00 11/25/18 00:00 96 Vapotherm 40.00 35 11/24/18 23:00 92 17 149/78 (101) 96 Vapotherm 50.00 40.00 11/24/18 22:00 90 35 144/72 (96) 96 Vapotherm 50.00 40.00 11/24/18 22:00 98.8 11/24/18 21:25 97 Vapotherm 35.00 50 11/24/18 21:25 97 Vapotherm 40.00 50 11/24/18 21:00 89 18 159/75 (103) 96 Vapotherm 50.00 40.00 11/24/18 20:00 85 12 183/95 (124) 95 Vapotherm 50.00 40.00 11/24/18 20:00 96 Vapotherm 40.00 35 11/24/18 20:00 98.2 11/24/18 19:00 80 17 171/90 (117) 96 Vapotherm 50.00 40.00 11/24/18 19:00 80 11/24/18 18:00 95 24 171/97 (121) 91 Vapotherm 50.00 40.00 11/24/18 17:00 90 24 179/84 (115) 94 Vapotherm 50.00 40.00 11/24/18 16:00 79 19 156/69 (98) 98 Vapotherm 50.00 40.00 11/24/18 16:00 98.9 11/24/18 16:00 93 Vapotherm 40.00 50 11/24/18 15:00 84 17 173/74 (107) 90 Vapotherm 50.00 40.00 11/24/18 14:34 94 Vapotherm 50 11/24/18 14:00 84 24 170/71 (104) 95 Vapotherm 50.00 40.00 11/24/18 13:22 79 24 95 40 11/24/18 13:00 80 15 181/79 (113) 91 Vapotherm 50.00 40.00 11/24/18 12:21 84 11/24/18 12:00 84 23 165/69 (101) 94 Mechanical Ventilator 40.00 11/24/18 12:00 96 Mechanical Ventilator 40 11/24/18 11:00 80 29 130/66 (87) 95 Mechanical Ventilator 40.00 11/24/18 10:31 77 21 94 40 11/24/18 10:00 71 22 161/76 (104) 95 Mechanical Ventilator 40.00 11/24/18 09:48 70 22 92 40 11/24/18 09:00 68 21 170/80 (110) 96 Mechanical Ventilator 40.00 11/24/18 08:00 99.1 11/24/18 08:00 96 Mechanical Ventilator 40 11/24/18 08:00 73 21 168/79 (108) 96 Mechanical Ventilator 40.00 11/24/18 07:31 74 I & O 11/25/18 06:59 Intake Total 470 ml Output Total 7100 ml Balance -6630 ml Height & Weight Height: 5'3.00" Weight: 325lbs. 0.5oz. [id number]; 52.3 BMI Method:Stated General Appearance: WD/WN, Chronically ill, Mild Distress, Obese HEENT: PERRL/EOMI Neck: Full Range of Motion Respiratory: Chest Non Tender, Lungs Clear, Normal Breath Sounds, No Accessory Muscle Use, No Respiratory Distress Cardiovascular: Regular Rate, Rhythm, No Edema, No Gallop, No JVD, No Murmur, Normal Peripheral Pulses Capillary Refill: Less Than 3 Seconds Gastrointestinal: normal bowel sounds, non tender, soft Extremity: Normal Capillary Refill Neurologic/Psychiatric: Alert, Oriented x3 Skin: Normal Color Lymphatic: No Adenopathy Results Lab Laboratory Tests 11/24/18 03:35 11/25/18 03:30 11/25/18 04:50 Assessment/Plan Assessment/Plan Acute on chronic respiratory failure -Pt now extubated and doing well respiratory rubin -SVNS - change to Q 4 scheduled -Solumedrol-- D/C Hyperglycemia -Levemir -Start insulin gtt secondary to BS >300 Morbid obesity with OHS DM II S/p Hernia repair surgery -Dr. Olvera following -repeat CT is concerning for abscess and Nec Fasciitis -Currently on Zosyn will add clindamycin. MRSA swab is negative. Hx of severe COPD oxygen dependent Acute on chronic renal failure- improved -Monitor Elevated troponin -cardiology following MERCEDES GARNICA DO Nov 25, 2018 07:24
--- NOTE | 2018-11-25 07:59 | Diagnostic Imaging Report ---
INDICATION: Extubated, shortness of breath. COMPARISON: 11/24/2018. FINDINGS: Single view of the chest demonstrates improved aeration of both lungs. ET tube has been removed. There is some residual infiltrate in the right base. There is no pneumothorax or large effusion. Heart remains prominent. IMPRESSION: 1. Extubation without pneumothorax. 2. Questionable residual infiltrate right base. Continued followup recommended. Dictated by: Dictated on workstation # [id number]
[2018-11-25] MEDS: methylPREDNISolone 40 MG/ML (Solu-MEDROL) VIAL IV SCH (08:23)
[2018-11-25] MEDS: PANTOPRAZOLE 40 MG (PROTONIX) VIAL IV SCH (08:23)
[2018-11-25] MEDS: DOCUSATE SODIUM 10 MG/ML 10 ML UDC (COLACE) PO SCH ×2 (09:00→21:26)
[2018-11-25] MEDS: CLINDAMYCIN 600 MG/50 ML IVPB 50 ML IV SCH ×2 (10:30→16:46)
[2018-11-25] MEDS: DULoxetine 30 MG (CYMBALTA) CAP PO SCH (10:30)
[2018-11-25] MEDS: LINAGLIPTIN (TRADJENTA) 5 MG TABLET PO SCH (10:30)
[2018-11-25] MEDS: ENOXAPARIN 60 MG/0.6 ML (LOVENOX) SYR SC SCH ×2 (10:30→22:12)
[2018-11-25] MEDS: OMEGA 3 (FISH OIL) 1000 MG CAP PO SCH (10:31)
[2018-11-25] MEDS: buPROPion SR 150 MG (WELLBUTRIN SR) TAB PO SCH (10:31)
[2018-11-25] MEDS: MAGNESIUM OXIDE (MAG-OX)400 MG TAB PO SCH (10:31)
[2018-11-25] MEDS: amLODIPine 10 MG (NORVASC) TAB PO SCH (10:31)
[2018-11-25] MEDS: VITAMIN D3 5,000 UNITS (CHOLECALCIFEROL ) CAPSULE PO SCH (10:31)
--- NOTE | 2018-11-25 10:32 | Progress Note - Hospitalist ---
Subjective HPI/CC On Admission Date Seen by Provider: Nov 25, 2018 Time Seen by Provider: 10:00 I was asked to see patient in consultation For elevated blood sugars. The patient was somnolent and could not stay awake during my conversation and exam. Stat blood sugar was 250. the patient recently had some pain medication and I am concerned that she has CO2 retention with chronic apnea. blood gas is pending. Subjective/Events-last exam Patient was extubated yesterday and actually doing pretty well CT scan showed possible fistula so we will defer that management to Dr. May Treadwell and Pio maintained Reports no pain Obesity hypoventilation syndrome places her at risk for additional respiratory failure episodes Son at the bedside Long recovery expected Check meds and labs Conferred with RN Conferred with Dr. Kaur Review of Systems General: Fatigue Pulmonary: Dyspnea Objective Exam Vital Signs Vital Signs Date Time Temp Pulse Resp B/P (MAP) Pulse Ox O2 Delivery O2 Flow Rate FiO2 11/25/18 20:16 98.9 81 20 145/74 (97) 92 NIV Bilevel 45.00 20.00 11/25/18 18:56 45 Capillary Refill : Less Than 3 Seconds General Appearance: No Apparent Distress, WD/WN, Chronically ill, Obese Respiratory: Chest Non Tender, Lungs Clear, No Accessory Muscle Use, No Respiratory Distress, Decreased Breath Sounds Cardiovascular: Regular Rate, Rhythm, No Edema, No Gallop, No JVD, No Murmur, Normal Peripheral Pulses Neurologic/Psychiatric: Alert, Oriented x3, No Motor/Sensory Deficits, Normal Mood/Affect Results/Procedures Lab Laboratory Tests 11/25/18 03:30 11/25/18 04:50 Patient resulted labs reviewed. Assessment/Plan Assessment and Plan Assess & Plan/Chief Complaint Assessment: VDRF now extubated and transferring to 4th floor Obesity hypoventilation syndrome Non-compliance Smoker COPD Abdominal fistula? Plan: Monitor closely Monitor resp status closely Diagnosis/Problems Diagnosis/Problems (1) Ventilator dependence Status: Resolved Resolution Date/Time: 11/25/18 @ 20:44 (2) Obesity hypoventilation syndrome Status: Chronic (3) COPD (chronic obstructive pulmonary disease) Status: Chronic Qualifiers: COPD type: unspecified COPD Qualified Codes: J44.9 - Chronic obstructive pulmonary disease, unspecified (4) Smoker Status: Chronic Clinical Quality Measures DVT/VTE Risk/Contraindication: Risk Factor Score Per Nursin RFS Level Per Nursing on Admit: 4+=Very High ALEIDA LICEA DO Nov 25, 2018 10:32
[2018-11-25] MEDS: lisINopril 20 MG (PRINIVIL) TABLET PO SCH (10:33)
--- NOTE | 2018-11-25 10:56 | Physical Therapy Evaluation ---
PT Evaluation-General Medical Diagnosis Admission Date Nov 20, 2018 at 11:36 Medical Diagnosis: ventral abdominal incision Onset Date: Nov 20, 2018 Therapy Diagnosis Therapy Diagnosis: generalized weakness/debility Height/Weight Height (Feet): 5 Height (Inches): 3.00 Weight (Pounds): 311 Weight (Ounces): 0.3 Precautions Precautions/Isolations: Fall Prevention, Standard Precautions, Pressure Ulcer Weight Bear Status Right Lower Extremity: Right Full Weight Bearing Left Lower Extremity: Left Full Weight Bearing Referral Physician: May Reason for Referral: Evaluation/Treatment Medical History Pertinent Medical History: COPD, DM, HTN, Neuropathy, Smoking Additional Medical History morbid obesity Current History s/p hernia repair, ostomy Reviewed History: Yes Social History Home: Apartment Current Living Status: Alone Entry Into Home: Level Entry Prior/Core FIM Prior Level of Function Therapy Code Descriptions/Definitions Functional [place] Measure: 0=Not Assessed/NA 4=Minimal Assistance 1=Total Assistance 5=Supervision or Setup 2=Maximal Assistance 6=Modified [place] 3=Moderate Assistance 7=Complete [place] Therapy Quality Codes: 6 Independent with activity with or without an assistive device 5 Patient requires set up or clean up by helper. Patient completes activity by themselves 4 Supervision or touching assist (CGA). Leo provide cues , steadying assist 3 The helper provides less than half the effort to complete the activity 2 The helper provides more than half the effort to complete the activity 1 Dependent. The helper does all the effort to complete an activity 7 Patient refused to complete or attempt activity 9 The patient did not perform the activity before the current illness or injury 88 Not attempted due to Medical conditions or safety concerns Functional Abilities and Goals: Independent: Patient completed the activities by him/herself, with or without an assistive device, with no assistance from a helper. Needed Some Help: Patient needed partial assistance from another person to complete activities. Dependent: A helper completed the activities for the patient. Unknown: Not Applicable: Bed Mobility: 6 Transfers (B,C,W/C) (FIM): 6 Gait: 6 Indoor Mobility (Ambulation): Independent Prior Devices Use: Walker PT Evaluation-Current Subjective Patient is very agreeable to participate with therapy. No c/o. Pain Numeric Pain Scale: 0-No Pain Location: No Pain Reported Objective Attachments: Oxygen (vapotherm), Gonzalez Catheter, IV ROM/Strength ROM Lower Extremities bilateral LE WFL Strength Lower Extremities 2+/5 grossly bilateral LE Integumentary/Posture Integumentary refer to nursing notes Bladder Incontinence: Gonzalez Cath Posture WFL Neuromuscular (Tone, Coordination, Reflexes) grossly intact Sensory Vision: Functional Hearing: Functional Sensation Right Lower Extremit: Impaired Sensation Left Lower Extremity: Impaired Transfers Therapy Code Descriptions/Definitions Functional [place] Measure: 0=Not Assessed/NA 4=Minimal Assistance 1=Total Assistance 5=Supervision or Setup 2=Maximal Assistance 6=Modified [place] 3=Moderate Assistance 7=Complete [place] Transfers (B, C, W/C) (FIM): 1 Scootin Supine to/from Sit: 1 Patient sat EOB CGA x 10 min with SAO2 maintained >95% Gait Anticipated Mode of Locomotion: Both Balance Sitting Static: Fair Sitting Dynamic: Fair Assessment/Needs 63 y.o. female, will benefit from skilled PT to address functional strength and mobility to improve current LOF. Patient is limited by weakness, obesity and inactivity. Rehab Potential: Fair PT Shelter Goals Shelter Goals PT Properties Supervisor Goals Time Frame: Dec 10, 2018 Transfers (B,C,W/C) (FIM): 4 Gait (FIM): 1 Gait distance (FIM): 1=up to 49 ft Distance: 25' Gait Level of Assist: 4 Gait Assistive Device: FWW PT Plan Problem List Problem List: Activity Tolerance, Functional Strength, Safety, Balance, Gait, Transfer, Bed Mobility Treatment/Plan Treatment Plan: Continue Plan of Care Treatment Plan: Bed Mobility, Education, Functional Activity Juan F, Functional Strength, Gait, Safety, Therapeutic Exercise, Transfers Treatment Duration: Dec 10, 2018 Frequency: 6 times per week Estimated Hrs Per Day: .25 hour per day Patient and/or Family Agrees t: Yes Discharge Recommendations Therapy D/C Recommendations: Group Home Placement, Correction (TCU/NH) Time/GCodes Time In: 1000 Time Out: 1020 Total Billed Treatment Time: 20 Total Billed Treatment 1 visit EVModC 20 min BO MONTAGUE PT Nov 25, 2018 10:56
--- NOTE | 2018-11-25 11:02 | Cardiology Progress Note ---
Subjective Date Seen by Provider: Nov 25, 2018 Time Seen by Provider: 10:58 Subjective/Events-last exam patient is laying down in bed, extubated, using C Pap. Feeling better Review of Systems General: Fatigue, Malaise HEENT: No Head Aches, No Visual Changes, No Eye Pain, No Ear Pain, No Dysphasia, No Sinus Congestion, No Post Nasal Drip, No Sore Throat, No Other Pulmonary: Dyspnea Cardiovascular: Edema Objective-Cardiology Exam Last Set of Vital Signs Vital Signs 11/25/18 11/25/18 11/25/18 11/25/18 09:52 10:00 10:22 10:32 Temp 97.8 Pulse 80 Resp 12 B/P (MAP) 165/92 (116) Pulse Ox 96 O2 Delivery Vapotherm O2 Flow Rate 30.00 15.00 FiO2 35 Capillary Refill : Less Than 3 Seconds I&O Intake and Output 11/25/18 00:00 Intake Total 710 ml Output Total 5525 ml Balance -4815 ml Intake Oral 0 ml IV Total 680 ml Other 30 ml Output Urine Total 5525 ml General: Moderate Distress HEENT: Atraumatic Neck: Supple Lungs: Normal Air Movement Heart: Regular Rate, Normal S1, Normal S2 Abdomen: Other (diminished bowel sounds, new fistula with discharge at the surgical site) Extremities: No Clubbing, Other (Edema) Skin: No Rashes Neuro: Normal Speech Psych/Mental Status: Mood NL Results Lab Laboratory Tests 11/25/18 03:30 11/25/18 04:50 A/P-Cardiology Admission Diagnosis Acute respiratory failure Non-ST elevation myocardial infarction, type II HI Hypertension Hyperlipidemia Assessment/Plan Status post respiratory failure, extubated, using C Pap on and off. Doing betterI managed by medical team New fistula/enterocutaneous fistula postoperatively, 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 Olvera Acute non-ST elevation myocardial infarction, poor R-wave progression in the anterior leads, probably type II myocardial infarctions due to respiratory failure, underlying coronary artery disease cannot be entirely excluded. Echocardiogram showed normal LV function. Continue with conservative management at this time, continue to monitor. Troponin level is trending down, no acute EKG changes suggestive of active ischemia, conservative management at this time. Continue to monitor Hypertension, was borderline hypotensive, currently hypertensive, Continue with IV Lopressor and monitor Hyperlipidemia maintained on Lipitoron hold at this point COPD, oxygen dependent, progressed into respiratory failure after abdominal surgery, intubated. Managed by primary care team Morbid obesity Diabetes mellitus, followed and managed by primary care physician History of tobaccoism Clinical Quality Measures DVT/VTE Risk/Contraindication: Risk Factor Score Per Nursin RFS Level Per Nursing on Admit: 4+=Very High AUSTEN MARTÍNEZ MD Nov 25, 2018 11:02
--- NOTE | 2018-11-25 12:36 | Progress Note ---
Subjective Date Seen by a Provider: Nov 25, 2018 Time Seen by a Provider: 09:00 Subjective/Events-last exam doing well. small bowel fistula. no redness/bullae/crepitance. patient afebrile and WBC normal. Objective Exam Vital Signs Date Time Temp Pulse Resp B/P (MAP) Pulse Ox O2 Delivery O2 Flow Rate FiO2 11/25/18 12:00 88 15 165/87 (113) 94 Vapotherm 30.00 15.00 11/25/18 11:00 83 13 170/97 (121) 94 Vapotherm 30.00 15.00 11/25/18 10:32 Vapotherm 30.00 15.00 11/25/18 10:22 96 Vapotherm 20.00 35 11/25/18 10:00 80 12 165/92 (116) 96 Vapotherm 35.00 25.00 11/25/18 09:52 97.8 11/25/18 09:00 79 14 153/82 (105) 100 Vapotherm 35.00 25.00 11/25/18 08:23 91 23 98 40.00 11/25/18 08:00 93 Vapotherm 40.00 50 11/25/18 08:00 80 16 166/89 (114) 96 Vapotherm 35.00 25.00 11/25/18 07:25 97 Vapotherm 20.00 35 11/25/18 07:18 99 Vapotherm 30.00 50 11/25/18 07:00 78 13 168/89 (115) 100 Vapotherm 35.00 25.00 11/25/18 07:00 80 11/25/18 06:00 74 12 168/89 (115) 100 Vapotherm 50.00 30.00 11/25/18 05:00 84 12 161/90 (113) 98 Vapotherm 50.00 30.00 11/25/18 04:00 84 15 95/79 (84) 98 Vapotherm 50.00 30.00 11/25/18 04:00 98 Vapotherm 50.00 35 11/25/18 03:00 98 17 136/101 (113) 96 Vapotherm 50.00 30.00 11/25/18 02:40 98 Vapotherm 30.00 50 11/25/18 02:00 84 14 163/87 (112) 98 Vapotherm 50.00 40.00 11/25/18 01:00 86 15 165/93 (117) 97 Vapotherm 50.00 40.00 11/25/18 01:00 81 11/25/18 00:00 92 20 158/85 (109) 97 Vapotherm 50.00 40.00 11/25/18 00:00 96 Vapotherm 40.00 35 11/24/18 23:00 92 17 149/78 (101) 96 Vapotherm 50.00 40.00 11/24/18 22:00 90 35 144/72 (96) 96 Vapotherm 50.00 40.00 11/24/18 22:00 98.8 11/24/18 21:25 97 Vapotherm 35.00 50 11/24/18 21:25 97 Vapotherm 40.00 50 11/24/18 21:00 89 18 159/75 (103) 96 Vapotherm 50.00 40.00 11/24/18 20:00 85 12 183/95 (124) 95 Vapotherm 50.00 40.00 11/24/18 20:00 96 Vapotherm 40.00 35 11/24/18 20:00 98.2 11/24/18 19:00 80 17 171/90 (117) 96 Vapotherm 50.00 40.00 11/24/18 19:00 80 11/24/18 18:00 95 24 171/97 (121) 91 Vapotherm 50.00 40.00 11/24/18 17:00 90 24 179/84 (115) 94 Vapotherm 50.00 40.00 11/24/18 16:00 79 19 156/69 (98) 98 Vapotherm 50.00 40.00 11/24/18 16:00 98.9 11/24/18 16:00 93 Vapotherm 40.00 50 11/24/18 15:00 84 17 173/74 (107) 90 Vapotherm 50.00 40.00 11/24/18 14:34 94 Vapotherm 50 11/24/18 14:00 84 24 170/71 (104) 95 Vapotherm 50.00 40.00 11/24/18 13:22 79 24 95 40 11/24/18 13:00 80 15 181/79 (113) 91 Vapotherm 50.00 40.00 I & O 11/25/18 07:00 Intake Total 470 ml Output Total 9650 ml Balance -9180 ml Capillary Refill : Less Than 3 Seconds General Appearance: No Apparent Distress HEENT: PERRL/EOMI Neck: Full Range of Motion Respiratory: Rhonci, Wheezing Cardiovascular: Regular Rate, Rhythm Gastrointestinal: normal bowel sounds, soft, other (abd wall fistula, no redness/erythema/crepitance.) Extremity: Normal Capillary Refill Neurologic/Psychiatric: Alert, Oriented x3 Skin: Normal Color Lymphatic: No Adenopathy Results Lab Laboratory Tests 11/24/18 16:53: Glucometer 96 11/24/18 20:36: Glucometer 135H 11/24/18 22:37: Glucometer 131H 11/25/18 03:30: White Blood Count 10.4, Red Blood Count 2.81L, Hemoglobin 7.8#L, Hematocrit 26L, Mean Corpuscular Volume 93, Mean Corpuscular Hemoglobin 28, Mean Corpuscular Hemoglobin Concent 30L, Red Cell Distribution Width 14.8H, Platelet Count 207, Mean Platelet Volume 9.8, Neutrophils (%) (Auto) 83H, Lymphocytes (%) (Auto) 7L, Monocytes (%) (Auto) 10, Eosinophils (%) (Auto) 0, Basophils (%) (Auto) 0, Neutrophils # (Auto) 8.7H, Lymphocytes # (Auto) 0.7L, Monocytes # (Auto) 1.0, Eosinophils # (Auto) 0.0, Basophils # (Auto) 0.0, Neutrophils % (Manual) 75, Lymphocytes % (Manual) 4, Monocytes % (Manual) 11, Eosinophils % (Manual) 0, Basophils % (Manual) 0, Metamyelocytes % 5, Myelocytes % 1, Band Neutrophils 4, Blood Morphology Comment NORMAL, Blood Gas Puncture Site LEFT RADIAL ARTLINE, Blood Gas Patient Temperature 99.2, Arterial Blood pH 7.39, Arterial Blood Partial Pressure CO2 53H, Arterial Blood Partial Pressure O2 72L, Arterial Blood HCO3 31H, Arterial Blood Total CO2 32.9H, Arterial Blood Oxygen Saturation 93L, Arterial Blood Base Excess 6.5H, Christiano Test ARTLINE, Blood Gas Ventilator Setting NO, Blood Gas Inspired Oxygen 35, Sodium Level 147H, Potassium Level 2.3#*L, Chloride Level 120#H, Carbon Dioxide Level 18L, Anion Gap 9, Blood Urea Nitrogen 19H, Creatinine 0.52L, Estimat Glomerular Filtration Rate > 60, BUN/Creatinine Ratio 37, Glucose Level 147H, Calcium Level 4.8#*L, Corrected Calcium 6.6L, Phosphorus Level 2.1L, Magnesium Level 0.9#*L, Total Bilirubin 0.2, Aspartate Amino Transf (AST/SGOT) 18, Alanine Aminotransferase (ALT/SGPT) 10, Alkaline Phosphatase 36L, Total Protein 3.8L, Albumin 1.8L, Triglycerides Level 208H 11/25/18 04:50: Sodium Level 144, Potassium Level 3.9, Chloride Level 101, Carbon Dioxide Level 29, Anion Gap 14, Blood Urea Nitrogen 29H, Creatinine 0.89, Estimat Glomerular Filtration Rate > 60, BUN/Creatinine Ratio 33, Glucose Level 241H, Calcium Level 8.3L, Corrected Calcium 9.0, Phosphorus Level 3.3, Magnesium Level 1.7, Total Bilirubin 0.4, Aspartate Amino Transf (AST/SGOT) 30, Alanine Aminotransferase (ALT/SGPT) 17, Alkaline Phosphatase 67, Total Protein 6.9, Albumin 3.1L, Triglycerides Level 396H 11/25/18 08:01: Glucometer 238H Microbiology 11/21/18 Blood Culture - Preliminary, Resulted No growth 11/20/18 Gram Stain - Final, Complete 11/20/18 Sputum Culture - Final, Complete Usual upper respiratory chandana 11/20/18 Urine Culture - Final, Complete NO GROWTH Assessment/Plan Assessment/Plan Assess & Plan/Chief Complaint s/p open repair recurrent ventral abd incisional hernia with mesh with multiple medical comorbidities including diabetes, copd and morbid obesity. exacerbation copd and non s-t elevation PR. cont abx for high risk pneumonia/wound infxn. enterocutaneous fistula. will start TPN and octreotide gtt. clear liquids. ok for surgical floor. Clinical Quality Measures DVT/VTE Risk/Contraindication: Risk Factor Score Per Nursin RFS Level Per Nursing on Admit: 4+=Very High WENDI ELIZABETH MD Nov 25, 2018 12:36
--- NOTE | 2018-11-25 13:13 | Occupational Therapy Eval ---
OT Evaluation-General/PLF Medical Diagnosis Admission Date Nov 20, 2018 at 11:36 Medical Diagnosis: ventral abdominal incision Onset Date: Nov 20, 2018 Therapy Diagnosis Therapy Diagnosis: weakness, impaired self care skills Height/Weight Height (Feet): 5 Height (Inches): 3.00 Weight (Pounds): 311 Weight (Ounces): 0.3 Precautions Precautions/Isolations: Fall Prevention, Standard Precautions, Pressure Ulcer Safety Interventions: Move Closer to Desk Referral Physician: May Medical History Pertinent Medical History: COPD, DM, HTN, Neuropathy, Smoking Additional Medical History high cholesterol, kidney stones, diverticulosis, DDD, fibromyalgia, chronic back pain. Reviewed History: Yes Social History Home: Apartment Current Living Status: Alone Entry Into Home: Level Entry ADL-Prior Level of Function Therapy Code Descriptions/Definitions Functional [place] Measure: 0=Not Assessed/NA 4=Minimal Assistance 1=Total Assistance 5=Supervision or Setup 2=Maximal Assistance 6=Modified [place] 3=Moderate Assistance 7=Complete [place] Therapy Quality Codes: 6 Independent with activity with or without an assistive device 5 Patient requires set up or clean up by helper. Patient completes activity by themselves 4 Supervision or touching assist (CGA). [place] provide cues , steadying assist 3 The helper provides less than half the effort to complete the activity 2 The helper provides more than half the effort to complete the activity 1 Dependent. The helper does all the effort to complete an activity 7 Patient refused to complete or attempt activity 9 The patient did not perform the activity before the current illness or injury 88 Not attempted due to Medical conditions or safety concerns Functional Abilities and Goals: Independent: Patient completed the activities by him/herself, with or without an assistive device, with no assistance from a helper. Needed Some Help: Patient needed partial assistance from another person to complete activities. Dependent: A helper completed the activities for the patient. Unknown: Not Applicable: ADL PLOF Comments Pt states she was ambulating without assistive device prior to surgery. Had min assist for bathing. 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 Limited activity recently DME/Equipment: Bath Chair, Grab Bars, Shower Drive Self: Yes OT Current Status Subjective Pt in bed, agrees to therapy. Pt reports 7/10 abdominal pain. Mental Status/Objective Patient Orientation: Person, Place Attachments: Gonzalez Catheter, IV, Oxygen (vapotherm) Current Glasses/Contacts: Yes Dentures/Partials: Yes Hand Dominance: Right Upper Extremity ROM Decreased shoulder ROM, pt states this is baseline Upper Extremity Coordination Decreased. Upper Extremity Sensation Intact per pt report ADL-Treatment ADL-Current Pt participated in UE assessment while in supine. Pt is able to wash face with min assist. Unable to reach forehead. Pt requests to wash hair. Pt was assisted to use shampoo cap. Pt unable to raise arms high enough to assist with this task. Max assist required to dry and comb hair. Pt has decreased strength and activity tolerance. Requires occasional rest breaks during activity. Pt resting in bed with needs met and visitors present after session. Therapy Code Descriptions/Definitions Functional [place] Measure: 0=Not Assessed/NA 4=Minimal Assistance 1=Total Assistance 5=Supervision or Setup 2=Maximal Assistance 6=Modified [place] 3=Moderate Assistance 7=Complete [place] Therapy Quality Codes: 6 Independent with activity with or without an assistive device 5 Patient requires set up or clean up by helper. Patient completes activity by themselves 4 Supervision or touching assist (CGA). [place] provide cues , steadying assist 3 The helper provides less than half the effort to complete the activity 2 The helper provides more than half the effort to complete the activity 1 Dependent. The helper does all the effort to complete an activity 7 Patient refused to complete or attempt activity 9 The patient did not perform the activity before the current illness or injury 88 Not attempted due to Medical conditions or safety concerns Education OT Patient Education: Rehab process Teaching Recipient: Patient Teaching Methods: Discussion Response to Teaching: Verbalize Understanding OT Short Term Goals Short Term Goals 1=Demonstrate adherence to instructed precautions during ADL tasks. 2=Patient will verbalize/demonstrate understanding of assistive devices/modifications for ADL. 3=Patient will improve strength/tolerance for activity to enable patient to perform ADL's. OT Usp Goals Usp Goals Time Frame: Dec 09, 2018 Eating (FIM): 5 Grooming(FIM): 5 Upper Body Dressing(FIM): 4 Toileting(FIM): 4 Toilet/Commode Transfer(FIM): 4 Additional Goals: 1-Demonstrate ADL Tasks, 2-Verbalize Understanding, 3-ImproveStrength/Juan F 1=Demonstrate adherence to instructed precautions during ADL tasks. 2=Patient will verbalize/demonstrate understanding of assistive devices/modifications for ADL. 3=Patient will improve strength/tolerance for activity to enable patient to perform ADL's. OT Education/Plan Problem List/Assessment Assessment: Decreased Activ Tolerance, Decreased UE Strength, Dependent Transfers, Impaired Funct Balance, Impaired Self-Care Skills Pt demonstrates decreased activity tolerance, mobility, strength, and ADL functioning. Pt to benefit from skilled OT intervention for ADL training, transfers, strengthening, and safety education to increase level of functional independence and allow safe discharge plan. Discharge Recommendations Plan/Recommendations: Continue POC Treatment Plan/Plan of Care Treatment,Training & Education: Yes Patient would benefit from OT for education, treatment and training to promote independence in ADL's, mobility, safety and/or upper extremity function for ADL's. Plan of Care: ADL Retraining, Functional Mobility, UE Funct Exercise/Act Treatment Duration: Dec 09, 2018 Frequency: 5 times per week Estimated Hrs Per Day: .25 hour per day Rehab Potential: Fair Time/GCodes Start Time: 11:36 Stop Time: 12:01 Total Time Billed (hr/min): 25 Billed Treatment Time 1 visit, EVM(15minutes), ADL(10minutes) DUNCAN HSIEH OT Nov 25, 2018 13:13
--- NOTE | 2018-11-25 13:35 | NUR ---
Patient requesting to fill our DNR, DPOA, et Advance Directive paperwork. These forms were discussed with Carisa in detail. Carisa signed et her nurse et I witnessed this process. She denied any questions or concerns. I did talk to her about informing her son, daughter in law, et sister of her voiced et then written wishes. She named all three of them as her DPOA et she wishes for tissue et organ donation. This was discussed as important information to let them know.
--- NOTE | 2018-11-25 14:48 | NUR ---
TPN: PROPOFOL DC'D. TPN ADVANCED TO 67 ML/HR PROVIDING 1080 KCAL AND 100 GM PROTEIN, NO LIPIDS. INSULIN INCREASED IN TPN. GOAL: 1300 KCAL, 100-130 GM PROTEIN, BS 180 OR LESS. LR CONTINUES AT 30 ML/HR.
--- NOTE | 2018-11-25 15:45 | NUR ---
Report called to Sarah JETT. Pt transferred to room 409 via bed. All personal belongings escorted with patient and family. Tolerated transfer well.
[2018-11-25] MEDS: LACTATED RINGERS 1,000 ML IV SCH (15:47)
--- NOTE | 2018-11-25 16:11 | NUR ---
REPORT RECEIVED FROM JOHNIE ORTIZ. ASSUMED CARE OF THE PATIENT AT THIS TIME. PT DENIES ANY NEEDS
[2018-11-25] MEDS ORDERED: [UNRECOGNIZED DRUG - OTHER] IV SCH ×10 (17:00)
[2018-11-25] MEDS ORDERED: POTASSIUM CHLORIDE IV SCH ×10 (17:00)
[2018-11-25] MEDS ORDERED: SODIUM CHLORIDE IV SCH ×10 (17:00)
--- NOTE | 2018-11-25 18:48 | NUR ---
PATIENT HAS REQUESTED TO RESCIND THE DNR CODE STATUS SHE DECLARED TODAY. THE DNR CODE STATUS WAS CANCELLED AND RULL CODE STATUS ENTERED
[2018-11-25] MEDS: ATORVASTATIN 40 MG (LIPITOR) TABLET PO SCH (21:26)
[2018-11-26] VITALS (7 sets, daily range): BP systolic 143–164; BP diastolic 78–100
[2018-11-26] MEDS: meTOprolol 5 MG/5 ML (LOPRESSOR) VIAL IV SCH ×4 (00:38→17:40)
[2018-11-26] MEDS: fentaNYL INJECTION 100 MCG/2 ML AMP IV PRN ×4 (00:38→20:20)
[2018-11-26] MEDS: PIPERACILLIN/TAZOBACTAM (BULK) 4.5 GM in NS (IVPB) 100 ML IV SCH ×3 (00:38→16:34)
[2018-11-26] MEDS: inSUlin ASPART (NovoLOG) 1 UNIT/0.01 ML (CHARGE PER UNIT) SC SCH ×6 (00:39→20:21)
[2018-11-26] MEDS: CLINDAMYCIN 600 MG/50 ML IVPB 50 ML IV SCH ×3 (00:52→16:44)
[2018-11-26] MEDS: OCTREOTIDE INJECTION 500 MCG in NS (IVPB) 97.5 ML IV SCH ×3 (02:13→21:24)
[2018-11-26] MEDS: RT-ALBUTEROL/IPRATROPIUM 3 ML (DUONEB) VIAL IH SCH ×6 (02:36→22:23)
[2018-11-26 05:47] LABS: BASOPHILS # (AUTO) 0.1 10^3/uL (0.0-0.1); BASOPHILS % (AUTO) 0 % (0-10); EOSINOPHILS # (AUTO) 0.5 10^3/uL (0.0-0.3); EOSINOPHILS % (AUTO) 3 % (0-10); HEMATOCRIT 40 % (35-52); HEMOGLOBIN 12.3 G/DL (11.5-16.0); LYMPHOCYTES # (AUTO) 1.4 X 10^3 (1.0-4.0); LYMPHOCYTES % (AUTO) 9 % (12-44); MEAN CORPUSCULAR HEMOGLOBIN 28 PG (25-34); MEAN CORPUSCULAR HGB CONC 31 G/DL (32-36); MEAN CORPUSCULAR VOLUME 91 FL (80-99); MONOCYTES % (AUTO) 7 % (0-12); NEUTROPHILS # (AUTO) 12.4 X 10^3 (1.8-7.8); NEUTROPHILS % (AUTO) 81 % (42-75); PLATELET COUNT 282 10^3/uL (130-400); RED CELL DISTRIBUTION WIDTH 14.9 % (10.0-14.5); WHITE BLOOD COUNT 15.4 10^3/uL (4.3-11.0)
[2018-11-26 06:19] LABS: ALANINE AMINOTRANSFERASE 16 U/L (0-55); ALBUMIN 3.1 GM/DL (3.2-4.5); ALKALINE PHOSPHATASE 73 U/L (40-136); BILIRUBIN,TOTAL 0.4 MG/DL (0.1-1.0); BUN/CREATININE RATIO 33; CALCIUM 8.1 MG/DL (8.5-10.1); CARBON DIOXIDE 27 MMOL/L (21-32); CHLORIDE 100 MMOL/L (98-107); CREATININE SERUM 0.78 MG/DL (0.60-1.30); GFR ESTIMATED > 60; GLUCOSE 210 MG/DL (70-105); MAGNESIUM 1.9 MG/DL (1.6-2.4); POTASSIUM 3.7 MMOL/L (3.6-5.0); SODIUM 141 MMOL/L (135-145); TOTAL PROTEIN 6.7 GM/DL (6.4-8.2)
[2018-11-26] MEDS: LACTATED RINGERS 1,000 ML IV SCH (06:26)
[2018-11-26] MEDS: RT-ADVAIR HFA 115/21 MCG PER PUFF IH SCH ×2 (06:52→18:32)
[2018-11-26 07:00] LABS: EOSINOPHILS % (MANUAL) 3 %; LYMPHOCYTES % (MANUAL) 11 %; MONOCYTES % (MANUAL) 6 %; NEUTROPHILS % (MANUAL) 80 %
--- NOTE | 2018-11-26 08:31 | Pulmonary Progress Note ---
Subjective Time Seen by a Provider: 08:32 Subjective/Events-last exam Pt has no complaints. Sepsis Event Evaluation Height, Weight, BMI Height: 5'3.00" Weight: 297lbs. 7.0oz. 134.711397bn; 52.3 BMI Method:Stated Exam Exam Vital Signs Date Time Temp Pulse Resp B/P (MAP) Pulse Ox O2 Delivery O2 Flow Rate FiO2 11/26/18 07:45 74 11/26/18 06:58 Vapotherm 20.00 45 11/26/18 06:52 92 Vapotherm 20.00 45 11/26/18 04:00 97.6 78 22 144/92 (109) 95 NIV Bilevel 45.00 20.00 11/26/18 02:36 73 22 93 40.00 11/26/18 01:00 75 11/26/18 00:00 98.4 86 18 149/80 (103) 93 NIV Bilevel 45.00 20.00 11/25/18 21:32 87 22 92 40.00 11/25/18 20:16 98.9 81 20 145/74 (97) 92 NIV Bilevel 45.00 20.00 11/25/18 20:00 96 Vapotherm 15.00 30 11/25/18 19:00 79 11/25/18 18:56 90 Vapotherm 20.00 45 11/25/18 18:49 90 Vapotherm 20.00 45 11/25/18 16:21 91 Vapotherm 20.00 45 11/25/18 16:15 98.6 91 18 164/93 (116) 90 NIV Bilevel 40.00 20.00 11/25/18 14:00 82 21 175/94 (121) 98 Vapotherm 30.00 15.00 11/25/18 13:00 91 13 152/89 (110) 96 Vapotherm 30.00 15.00 11/25/18 12:00 96 Vapotherm 15.00 30 11/25/18 12:00 88 15 165/87 (113) 94 Vapotherm 30.00 15.00 11/25/18 11:00 83 13 170/97 (121) 94 Vapotherm 30.00 15.00 11/25/18 10:32 Vapotherm 30.00 15.00 11/25/18 10:22 96 Vapotherm 20.00 35 11/25/18 10:00 80 12 165/92 (116) 96 Vapotherm 35.00 25.00 11/25/18 09:52 97.8 11/25/18 09:00 79 14 153/82 (105) 100 Vapotherm 35.00 25.00 I & O 11/26/18 07:00 Intake Total 1610 ml Output Total 5110 ml Balance -3500 ml Height & Weight Height: 5'3.00" Weight: 297lbs. 7.0oz. [id number]; 52.3 BMI Method:Stated General Appearance: No Apparent Distress, WD/WN, Chronically ill, Obese HEENT: PERRL/EOMI Neck: Full Range of Motion Respiratory: Chest Non Tender, Lungs Clear, No Accessory Muscle Use, No Respiratory Distress, Decreased Breath Sounds Cardiovascular: Regular Rate, Rhythm, No Edema, No Gallop, No JVD, No Murmur, Normal Peripheral Pulses Capillary Refill: Less Than 3 Seconds Gastrointestinal: normal bowel sounds, soft, other (abd wall fistula, no redness/erythema/crepitance.) Extremity: Normal Capillary Refill Neurologic/Psychiatric: Alert, Oriented x3, No Motor/Sensory Deficits, Normal Mood/Affect Skin: Normal Color Lymphatic: No Adenopathy Results Lab Laboratory Tests 11/25/18 03:30 11/25/18 04:50 11/26/18 05:24 Assessment/Plan Assessment/Plan Acute on chronic respiratory failure -SVNS - change to Q 4 scheduled Hyperglycemia Morbid obesity with OHS DM II S/p Hernia repair surgery -Dr. Olvera following -repeat CT is concerning for abscess and Nec Fasciitis -Currently on Zosyn will add clindamycin. MRSA swab is negative. Hx of severe COPD oxygen dependent Acute on chronic renal failure- improved -Monitor Elevated troponin -cardiology following MERCEDES GARNICA DO Nov 26, 2018 08:31
[2018-11-26] MEDS: MAGNESIUM OXIDE (MAG-OX)400 MG TAB PO SCH (09:29)
[2018-11-26] MEDS: OMEGA 3 (FISH OIL) 1000 MG CAP PO SCH (09:29)
[2018-11-26] MEDS: amLODIPine 10 MG (NORVASC) TAB PO SCH (09:29)
[2018-11-26] MEDS: buPROPion SR 150 MG (WELLBUTRIN SR) TAB PO SCH (09:29)
[2018-11-26] MEDS: LINAGLIPTIN (TRADJENTA) 5 MG TABLET PO SCH (09:29)
[2018-11-26] MEDS: DULoxetine 30 MG (CYMBALTA) CAP PO SCH (09:29)
[2018-11-26] MEDS: lisINopril 20 MG (PRINIVIL) TABLET PO SCH (09:29)
[2018-11-26] MEDS: DOCUSATE SODIUM 10 MG/ML 10 ML UDC (COLACE) PO SCH (09:47)
[2018-11-26] MEDS: VITAMIN D3 5,000 UNITS (CHOLECALCIFEROL ) CAPSULE PO SCH (09:47)
--- NOTE | 2018-11-26 11:20 | NUR ---
TPN: TPN ADVANCED TO 76 ML/HR, WILL PROVIDE 1480 KCAL WITH 100 GM PROTEIN, LR ADVANCED TO 50 ML/HR, FOR TOTAL FLUID OF 126 ML/HR. TARGET GOAL IS 1300 KCAL PER DAY (25 KCAL PER IBW) WITH 100-130 GM PROTEIN (2-2.5 GM PER KG IBW) FOR PATIENT WITH CLASS III. PLAN: BALANCE LYTES, MAINTAIN BS >180, DC TPN WHEN PT CONSUMING 60-75 PERCENT NEEDED CALORIES.
--- NOTE | 2018-11-26 11:25 | Progress Note - Hospitalist ---
Subjective HPI/CC On Admission Date Seen by Provider: Nov 26, 2018 Time Seen by Provider: 11:30 I was asked to see patient in consultation For elevated blood sugars. The patient was somnolent and could not stay awake during my conversation and exam. Stat blood sugar was 250. the patient recently had some pain medication and I am concerned that she has CO2 retention with chronic apnea. blood gas is pending. Subjective/Events-last exam Enterocutaneous fistula discussed with Dr Olvera at the bedside and he is I&D at the bedside TPN, Abx, CLD will be ordered to help it heal. Relative brought in her home biPAP to use and she reports that she uses it every night but relatives told me during her intubation status she is non-compliant. WBC is 15k Potassium noted Checked meds and labs Review of Systems General: Fatigue Pulmonary: Dyspnea Objective Exam Vital Signs Vital Signs Date Time Temp Pulse Resp B/P (MAP) Pulse Ox O2 Delivery O2 Flow Rate FiO2 11/26/18 13:09 92 11/26/18 10:29 92 Vapotherm 20.00 45 11/26/18 08:00 98.2 20 158/87 (110) Capillary Refill : Less Than 3 Seconds General Appearance: No Apparent Distress, WD/WN, Chronically ill, Obese Respiratory: Chest Non Tender, Lungs Clear, Normal Breath Sounds, No Accessory Muscle Use, No Respiratory Distress, Decreased Breath Sounds Cardiovascular: Regular Rate, Rhythm, No Edema, No Gallop, No JVD, No Murmur, Normal Peripheral Pulses Neurologic/Psychiatric: Alert, Oriented x3, No Motor/Sensory Deficits, Normal Mood/Affect Skin: Other (fistula deficit lower abdomen) Results/Procedures Lab Laboratory Tests 11/26/18 05:24 Patient resulted labs reviewed. Assessment/Plan Assessment and Plan Assess & Plan/Chief Complaint Assessment: s/p VDRF now extubated and transferred to 4th floor Obesity hypoventilation syndrome Non-compliance Smoker COPD Abdominal fistula? Plan: Monitor closely Monitor resp status closely TPN Abx biPAP Diagnosis/Problems Diagnosis/Problems (1) Ventilator dependence Status: Resolved Resolution Date/Time: 11/25/18 @ 20:44 (2) Obesity hypoventilation syndrome Status: Chronic (3) COPD (chronic obstructive pulmonary disease) Status: Chronic Qualifiers: COPD type: unspecified COPD Qualified Codes: J44.9 - Chronic obstructive pulmonary disease, unspecified (4) Smoker Status: Chronic (5) Enterocutaneous fistula Status: Acute (6) BRAYAN treated with BiPAP Status: Chronic (7) Hypokalemia Status: Acute (8) On total parenteral nutrition (TPN) Status: Acute Clinical Quality Measures DVT/VTE Risk/Contraindication: Risk Factor Score Per Nursin RFS Level Per Nursing on Admit: 4+=Very High ALEIDA LICEA DO Nov 26, 2018 11:25
[2018-11-26] MEDS ORDERED: LACTATED RINGERS 1,000 ML IV SCH (11:30)
[2018-11-26] MEDS ORDERED: LIDOCAINE 1% INJ 20 ML 20 ML VIAL ONE (11:39)
[2018-11-26] MEDS ORDERED: LIDOCAINE 1% INJ 20 ML 20 ML VIAL INJ NR (11:45)
[2018-11-26] MEDS ORDERED: fentaNYL INJECTION 100 MCG/2 ML AMP IVP NR (11:45)
--- NOTE | 2018-11-26 12:23 | Progress Note ---
Subjective Date Seen by a Provider: Nov 26, 2018 Time Seen by a Provider: 11:00 Subjective/Events-last exam doing ok. does have mild abd pain. no fever/chills. slight increase WBC. no SOB Objective Exam Vital Signs Date Time Temp Pulse Resp B/P (MAP) Pulse Ox O2 Delivery O2 Flow Rate FiO2 11/26/18 10:29 92 Vapotherm 20.00 45 11/26/18 08:00 98.2 75 20 158/87 (110) 92 Vapotherm 45.00 20.00 11/26/18 07:45 74 11/26/18 06:58 Vapotherm 20.00 45 11/26/18 06:52 92 Vapotherm 20.00 45 11/26/18 04:00 97.6 78 22 144/92 (109) 95 NIV Bilevel 45.00 20.00 11/26/18 02:36 73 22 93 40.00 11/26/18 01:00 75 11/26/18 00:00 98.4 86 18 149/80 (103) 93 NIV Bilevel 45.00 20.00 11/25/18 21:32 87 22 92 40.00 11/25/18 20:16 98.9 81 20 145/74 (97) 92 NIV Bilevel 45.00 20.00 11/25/18 20:00 96 Vapotherm 15.00 30 11/25/18 19:00 79 11/25/18 18:56 90 Vapotherm 20.00 45 11/25/18 18:49 90 Vapotherm 20.00 45 11/25/18 16:21 91 Vapotherm 20.00 45 11/25/18 16:15 98.6 91 18 164/93 (116) 90 NIV Bilevel 40.00 20.00 11/25/18 14:00 82 21 175/94 (121) 98 Vapotherm 30.00 15.00 11/25/18 13:00 91 13 152/89 (110) 96 Vapotherm 30.00 15.00 I & O 11/26/18 07:00 Intake Total 1610 ml Output Total 5110 ml Balance -3500 ml Capillary Refill : Less Than 3 Seconds General Appearance: No Apparent Distress HEENT: PERRL/EOMI Neck: Full Range of Motion Respiratory: Decreased Breath Sounds, Wheezing Cardiovascular: Regular Rate, Rhythm Gastrointestinal: soft, tenderness, other (mild redness right of fistula, small fistula opening) Extremity: Normal Capillary Refill Neurologic/Psychiatric: Alert, Oriented x3 Skin: Normal Color Lymphatic: No Adenopathy Results Lab Laboratory Tests 11/25/18 15:39: Glucometer 215H 11/25/18 19:30: Glucometer 186H 11/26/18 00:09: Glucometer 186H 11/26/18 03:24: Glucometer 166H 11/26/18 05:24: White Blood Count 15.4H, Red Blood Count 4.45, Hemoglobin 12.3#, Hematocrit 40, Mean Corpuscular Volume 91, Mean Corpuscular Hemoglobin 28, Mean Corpuscular Hemoglobin Concent 31L, Red Cell Distribution Width 14.9H, Platelet Count 282, Mean Platelet Volume 10.0, Neutrophils (%) (Auto) 81H, Lymphocytes (%) (Auto) 9L , Monocytes (%) (Auto) 7, Eosinophils (%) (Auto) 3, Basophils (%) (Auto) 0, Neutrophils # (Auto) 12.4H, Lymphocytes # (Auto) 1.4, Monocytes # (Auto) 1.0, Eosinophils # (Auto) 0.5H, Basophils # (Auto) 0.1, Neutrophils % (Manual) 80, Lymphocytes % (Manual) 11, Monocytes % (Manual) 6, Eosinophils % (Manual) 3, Sodium Level 141, Potassium Level 3.7, Chloride Level 100, Carbon Dioxide Level 27, Anion Gap 14, Blood Urea Nitrogen 26H, Creatinine 0.78, Estimat Glomerular Filtration Rate > 60, BUN/Creatinine Ratio 33, Glucose Level 210H, Calcium Level 8.1L, Corrected Calcium 8.8, Phosphorus Level 3.0, Magnesium Level 1.9, Total Bilirubin 0.4, Aspartate Amino Transf (AST/SGOT) 21, Alanine Aminotransferase (ALT/SGPT) 16, Alkaline Phosphatase 73, Total Protein 6.7, Albumin 3.1L 11/26/18 08:11: Glucometer 239H Microbiology 11/21/18 Blood Culture - Preliminary, Resulted No growth 11/20/18 Gram Stain - Final, Complete 11/20/18 Sputum Culture - Final, Complete Usual upper respiratory chandana 11/20/18 Urine Culture - Final, Complete NO GROWTH Assessment/Plan Assessment/Plan Assess & Plan/Chief Complaint s/p open repair recurrent ventral abd incisional hernia with mesh with multiple medical comorbidities including diabetes, copd and morbid obesity. exacerbation copd and non s-t elevation NE. cont abx for high risk pneumonia/wound infxn. enterocutaneous fistula. will start TPN and octreotide gtt. clear liquids. ok for surgical floor. small skin opening for fistula due to long tract and subcutaneous adipose tissue. will open wound and debride. Clinical Quality Measures DVT/VTE Risk/Contraindication: Risk Factor Score Per Nursin RFS Level Per Nursing on Admit: 4+=Very High WENDI ELIZABETH MD Nov 26, 2018 12:23
--- NOTE | 2018-11-26 12:56 | Physical Therapy Progress Note ---
Therapy Progress Note Pt receiving wound care at time of PT attempted visit. Will follow 11/28/18. ANJALI BARRERA DPRosario Nov 26, 2018 12:56
--- NOTE | 2018-11-26 13:36 | Cardiology Progress Note ---
Cardiology SOAP Progress Note Subjective: No acute cardiac complaints. Objective: I&O/Vital Signs 11/26/18 11/26/18 11/26/18 11/26/18 02:36 04:00 06:52 06:58 Temp 97.6 Pulse 73 78 Resp 22 22 B/P (MAP) 144/92 (109) Pulse Ox 93 95 92 O2 Delivery NIV Bilevel Vapotherm Vapotherm O2 Flow Rate 40.00 45.00 20.00 20.00 20.00 FiO2 45 45 11/26/18 11/26/18 11/26/18 11/26/18 07:45 08:00 10:29 13:09 Temp 98.2 Pulse 74 75 92 Resp 20 B/P (MAP) 158/87 (110) Pulse Ox 92 92 O2 Delivery Vapotherm Vapotherm O2 Flow Rate 45.00 20.00 20.00 FiO2 45 11/26/18 00:00 Intake Total 1060 ml Output Total 2710 ml Balance -1650 ml Weight (Pounds): 297 Weight (Ounces): 7.0 Weight (Calculated Kilograms): 134.351143 Constitutional: AAO x 3 Respiratory: No accessory muscle use, No respiratory distress, No chest tender, No chest expansion is symmetric; chest is bilaterally symmetric; No lungs clear to percussion; lungs clear to auscultation; No crackles, No rhonchi, No rales, No stridor, No wheezing, No pleural rub, No other Cardiovascular: regular rate-rhythm; No irregularly irregular, No extra beats, No parasternal heave is noted, No JVD, No edema, No bradycardia, No tachycardia, No point of maximal impulse, No cardiac thrills are palpable; S1 and S2; No g allop/S3, No gallop/S4, No diastolic murmur, No systolic murmur, No friction rub, No click, No other Gastrointestional: No tender, No soft, No round, No distended, No pulsatile mass, No organomegaly, No guarding, No rebound, No tenderness, No hernia, No mass, No audible bowel sounds, No abnormal bowel sounds, No abdominal bruits, No spleenomegaly, No other Extremities: No normal range of motion, No non-tender, No normal inspection, No pedal edema, No calf tenderness, No normal capillary refill, No pelvis stable, No calf tenderness, No inflammation, No pedal edema, No slow capillary refill, No swelling, No other, No abrasion, No clubbing, No cyanosis, No ecchymosis, No laceration, No no lower extremity edema bilateral, No significant edema, No tenderness, No wound Neurologic/Psychiatric: no motor/sensory deficits, alert, normal mood/affect, oriented x 3 Skin: No normal color, No warm/dry, No cyanosis, No cool, No diaphoresis, No damp, No ecchymosis, No jaundice, No mottled, No pallor, No rash, No tattoos/piercings, No ulcerations, No rash on exposed areas, No ulcerations on exposed areas, No other Results/Procedures: Labs Laboratory Tests 11/25/18 15:39: Glucometer 215H 11/25/18 19:30: Glucometer 186H 11/26/18 00:09: Glucometer 186H 11/26/18 03:24: Glucometer 166H 11/26/18 05:24: White Blood Count 15.4H, Red Blood Count 4.45, Hemoglobin 12.3#, Hematocrit 40, Mean Corpuscular Volume 91, Mean Corpuscular Hemoglobin 28, Mean Corpuscular Hemoglobin Concent 31L, Red Cell Distribution Width 14.9H, Platelet Count 282, Mean Platelet Volume 10.0, Neutrophils (%) (Auto) 81H, Lymphocytes (%) (Auto) 9L , Monocytes (%) (Auto) 7, Eosinophils (%) (Auto) 3, Basophils (%) (Auto) 0, Neutrophils # (Auto) 12.4H, Lymphocytes # (Auto) 1.4, Monocytes # (Auto) 1.0, Eosinophils # (Auto) 0.5H, Basophils # (Auto) 0.1, Neutrophils % (Manual) 80, Lymphocytes % (Manual) 11, Monocytes % (Manual) 6, Eosinophils % (Manual) 3, Sodium Level 141, Potassium Level 3.7, Chloride Level 100, Carbon Dioxide Level 27, Anion Gap 14, Blood Urea Nitrogen 26H, Creatinine 0.78, Estimat Glomerular Filtration Rate > 60, BUN/Creatinine Ratio 33, Glucose Level 210H, Calcium Level 8.1L, Corrected Calcium 8.8, Phosphorus Level 3.0, Magnesium Level 1.9, Total Bilirubin 0.4, Aspartate Amino Transf (AST/SGOT) 21, Alanine Aminotransferase (ALT/SGPT) 16, Alkaline Phosphatase 73, Total Protein 6.7, Albumin 3.1L 11/26/18 08:11: Glucometer 239H 11/26/18 12:48: Glucometer 247H Microbiology 11/21/18 Blood Culture - Preliminary, Resulted No growth 11/20/18 Gram Stain - Final, Complete 11/20/18 Sputum Culture - Final, Complete Usual upper respiratory chandana 11/20/18 Urine Culture - Final, Complete NO GROWTH A/P: Assessment/Dx: Acute respiratory failure Non-ST elevation myocardial infarction, type II LA Hypertension Hyperlipidemia Plan: Status post respiratory failure, extubated, using C Pap on and off. Doing better managed by medical team New fistula/enterocutaneous fistula postoperatively, 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 Olvera Acute non-ST elevation myocardial infarction, poor R-wave progression in the ant erior leads, probably type II myocardial infarction due to respiratory failure, underlying coronary artery disease cannot be entirely excluded. Echocardiogram showed normal LV function. Continue with conservative management at this time, continue to monitor. Troponin level is trending down, no acute EKG changes suggestive of active ischemia, conservative management at this time. Continue to monitor Hypertension, was borderline hypotensive, currently hypertensive, Continue with IV Lopressor and monitor Hyperlipidemia maintained on Lipitor on hold at this point COPD, oxygen dependent, progressed into respiratory failure after abdominal surgery, intubated. Managed by primary care team Morbid obesity Diabetes mellitus, followed and managed by primary care physician History of tobaccoism Thank you for your consultation. Please call me if you have any questions. Dale Hanley MD, FACP, FACC, FSCAI, FHRS, CCDS Interventional Cardiology Cardiac Electrophysiology Vascular Medicine and Endovascular Interventions Alaina HANLEY MD Nov 26, 2018 1:36 pm
[2018-11-26] MEDS: ENOXAPARIN 60 MG/0.6 ML (LOVENOX) SYR SC SCH ×2 (13:37→21:24)
--- NOTE | 2018-11-26 17:00 | NUR ---
R/T STAFFING CHANGES, CARE OF PT ASSUMED FROM DAVE AT THIS TIME.
[2018-11-26] MEDS: SODIUM CHLORIDE IV SCH ×11 (17:47)
[2018-11-26] MEDS: [UNRECOGNIZED DRUG - OTHER] IV SCH ×11 (17:47)
[2018-11-26] MEDS: POTASSIUM CHLORIDE IV SCH ×11 (17:47)
[2018-11-26] MEDS: ATORVASTATIN 40 MG (LIPITOR) TABLET PO SCH (21:24)
[2018-11-26] MEDS: DOCUSATE SODIUM 100 MG (COLACE) CAP PO SCH (21:24)
[2018-11-27] MEDS: fentaNYL INJECTION 100 MCG/2 ML AMP IV PRN ×4 (00:05→16:38)
[2018-11-27] MEDS: meTOprolol 5 MG/5 ML (LOPRESSOR) VIAL IV SCH ×4 (00:52→17:41)
[2018-11-27] MEDS: PIPERACILLIN/TAZOBACTAM (BULK) 4.5 GM in NS (IVPB) 100 ML IV SCH ×3 (00:53→16:36)
[2018-11-27] MEDS: inSUlin ASPART (NovoLOG) 1 UNIT/0.01 ML (CHARGE PER UNIT) SC SCH ×6 (00:53→20:47)
[2018-11-27] MEDS: RT-ALBUTEROL/IPRATROPIUM 3 ML (DUONEB) VIAL IH SCH ×6 (01:54→22:01)
[2018-11-27] MEDS: CLINDAMYCIN 600 MG/50 ML IVPB 50 ML IV SCH ×3 (02:18→16:37)
[2018-11-27 04:00] VITALS: BP 122/72
[2018-11-27 05:45] LABS: BASOPHILS # (AUTO) 0.1 10^3/uL (0.0-0.1); BASOPHILS % (AUTO) 1 % (0-10); EOSINOPHILS # (AUTO) 0.7 10^3/uL (0.0-0.3); EOSINOPHILS % (AUTO) 4 % (0-10); HEMATOCRIT 40 % (35-52); HEMOGLOBIN 12.5 G/DL (11.5-16.0); LYMPHOCYTES # (AUTO) 1.8 X 10^3 (1.0-4.0); LYMPHOCYTES % (AUTO) 9 % (12-44); MEAN CORPUSCULAR HEMOGLOBIN 28 PG (25-34); MEAN CORPUSCULAR HGB CONC 31 G/DL (32-36); MEAN CORPUSCULAR VOLUME 91 FL (80-99); MONOCYTES # (AUTO) 1.4 X 10^3 (0.0-1.0); MONOCYTES % (AUTO) 7 % (0-12); NEUTROPHILS # (AUTO) 15.4 X 10^3 (1.8-7.8); NEUTROPHILS % (AUTO) 79 % (42-75); PLATELET COUNT 331 10^3/uL (130-400); RED CELL DISTRIBUTION WIDTH 14.9 % (10.0-14.5); WHITE BLOOD COUNT 19.4 10^3/uL (4.3-11.0)
[2018-11-27 06:09] LABS: ALANINE AMINOTRANSFERASE 13 U/L (0-55); ALKALINE PHOSPHATASE 64 U/L (40-136); BILIRUBIN,TOTAL 0.3 MG/DL (0.1-1.0); BUN/CREATININE RATIO 33; CALCIUM 8.3 MG/DL (8.5-10.1); CARBON DIOXIDE 26 MMOL/L (21-32); CHLORIDE 103 MMOL/L (98-107); CREATININE SERUM 0.78 MG/DL (0.60-1.30); GFR ESTIMATED > 60; GLUCOSE 176 MG/DL (70-105); MAGNESIUM 2.2 MG/DL (1.6-2.4); POTASSIUM 4.3 MMOL/L (3.6-5.0); SODIUM 141 MMOL/L (135-145); TOTAL PROTEIN 6.7 GM/DL (6.4-8.2); TRIGLYCERIDES 326 MG/DL (<150)
[2018-11-27] MEDS: RT-ADVAIR HFA 115/21 MCG PER PUFF IH SCH ×2 (06:37→17:58)
[2018-11-27 08:00] VITALS: BP 155/85
[2018-11-27] MEDS: OCTREOTIDE INJECTION 500 MCG in NS (IVPB) 97.5 ML IV SCH ×2 (08:11→17:41)
[2018-11-27] MEDS: DULoxetine 30 MG (CYMBALTA) CAP PO SCH (08:13)
[2018-11-27] MEDS: amLODIPine 10 MG (NORVASC) TAB PO SCH (08:13)
[2018-11-27] MEDS: DOCUSATE SODIUM 100 MG (COLACE) CAP PO SCH ×2 (08:14→20:55)
[2018-11-27] MEDS: buPROPion SR 150 MG (WELLBUTRIN SR) TAB PO SCH (08:14)
[2018-11-27] MEDS: MAGNESIUM OXIDE (MAG-OX)400 MG TAB PO SCH (08:14)
[2018-11-27] MEDS: OMEGA 3 (FISH OIL) 1000 MG CAP PO SCH (08:14)
[2018-11-27] MEDS: LINAGLIPTIN (TRADJENTA) 5 MG TABLET PO SCH (08:14)
[2018-11-27] MEDS: lisINopril 20 MG (PRINIVIL) TABLET PO SCH (08:14)
[2018-11-27] MEDS: VITAMIN D3 5,000 UNITS (CHOLECALCIFEROL ) CAPSULE PO SCH (08:26)
[2018-11-27] MEDS: ENOXAPARIN 60 MG/0.6 ML (LOVENOX) SYR SC SCH ×2 (09:54→20:58)
[2018-11-27] MEDS ORDERED: FLUCONAZOLE 200 MG/100 ML 100 ML IV NR (10:30)
--- NOTE | 2018-11-27 10:50 | OPERATIVE REPORT ---
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 PROCEDURE: Opening of fistula tract and debridement of devitalized subcutaneous fat and skin. SURGEON: Wendi Elizabeth MD ANESTHESIA: Local. ESTIMATED BLOOD LOSS: Minimal. DISPOSITION: The patient tolerated the procedure well. INDICATIONS: The patient is a 63-year-old female with a multitude of medical comorbidities. She had a second recurrence of an incisional hernia, which was symptomatic. She did have considerable risk; however, she opted to proceed with surgery. She underwent an open recurrent ventral abdominal and incisional hernia repair with mesh. She did have postoperative issues with hyperglycemia as well as respiratory failure requiring mechanical ventilation. Since that time, she has developed an enterocutaneous fistula along the previous incision site. She is doing well as on the regular floor; however, did have a slight elevation of white count. She is afebrile, otherwise. Upon examination, there is a slight amount of redness to the right of the incision and a very small skin opening due to her body habitus. We will proceed with opening of the skin and debridement of the skin and subcutaneous tissue. The abdomen was prepped and draped in standard surgical fashion. The skin was open to the length of the previoius incision inferiorly. The devitalized skin and subcutaneous tissue was then debrided using a sharp dissecting scissors. Good hemostasis was observed. The small bowel fistula opening was identified. The wound was then cleaned and covered with an ostomy bag. The patient tolerated the procedure well. We will continue with conservative management with bowel rest and TPN. We will monitor fistula output and hope for decreased output and eventual closure. Job ID: [id number] DocumentID: [id number] Dictated Date: 11/26/2018 12:28:04 Jack Frame Tender Date: 11/26/2018 20:25:19 Dictated By: WENDI ELIZABETH MD [facility]
--- NOTE | 2018-11-27 11:09 | Progress Note ---
Subjective Date Seen by a Provider: Nov 27, 2018 Time Seen by a Provider: 11:00 Subjective/Events-last exam states doing better. increase WBC. no fever/chills. abd soft with no bu llae/crepitance. tolerating clears. Objective Exam Vital Signs Date Time Temp Pulse Resp B/P (MAP) Pulse Ox O2 Delivery O2 Flow Rate FiO2 11/27/18 08:00 97.9 74 20 155/85 (108) 90 Vapotherm 45.00 10.00 11/27/18 08:00 Vapotherm 10.00 45 11/27/18 07:00 75 11/27/18 06:34 91 Vapotherm 15.00 45 11/27/18 04:00 97.8 84 21 122/72 (89) 92 Vapotherm 45.00 15.00 11/27/18 01:54 91 Vapotherm 15.00 45 11/27/18 01:00 75 11/26/18 23:58 98.3 91 22 149/98 (115) 92 Vapotherm 45.00 15.00 11/26/18 22:25 91 Vapotherm 15.00 45 11/26/18 20:09 98.7 87 24 164/100 (121) 93 Vapotherm 45.00 15.00 11/26/18 20:00 Vapotherm 15.00 45 11/26/18 19:00 86 11/26/18 18:39 Vapotherm 15.00 45 11/26/18 18:37 90 Vapotherm 15.00 45 11/26/18 17:24 Vapotherm 15.00 45 11/26/18 15:54 98.2 85 24 147/93 (111) 94 Vapotherm 45.00 15.00 11/26/18 14:13 91 NIV CPAP 2.00 11/26/18 13:09 92 11/26/18 12:00 98.0 95 20 143/78 (99) 91 Vapotherm 45.00 15.00 I & O 11/27/18 07:00 Intake Total 3070.2833 ml Output Total 2800 ml Balance 270.2833 ml Capillary Refill : Less Than 3 SecondsLess Than 3 Seconds General Appearance: No Apparent Distress HEENT: PERRL/EOMI Neck: Full Range of Motion Respiratory: Decreased Breath Sounds, Rhonci Cardiovascular: Regular Rate, Rhythm Gastrointestinal: soft, other (fistula intact, high output, no new skin redness/erythema) Extremity: Normal Capillary Refill Neurologic/Psychiatric: Alert, Oriented x3 Lymphatic: No Adenopathy Results Lab Laboratory Tests 11/26/18 12:48: Glucometer 247H 11/26/18 15:45: Glucometer 292H 11/26/18 20:06: Glucometer 161H 11/27/18 00:31: Glucometer 222H 11/27/18 04:40: Glucometer 169H 11/27/18 04:55: White Blood Count 19.4H, Red Blood Count 4.43, Hemoglobin 12.5, Hematocrit 40, Mean Corpuscular Volume 91, Mean Corpuscular Hemoglobin 28, Mean Corpuscular Hemoglobin Concent 31L, Red Cell Distribution Width 14.9H, Platelet Count 331, Mean Platelet Volume 10.0, Neutrophils (%) (Auto) 79H, Lymphocytes (%) (Auto) 9L , Monocytes (%) (Auto) 7, Eosinophils (%) (Auto) 4, Basophils (%) (Auto) 1, Neutrophils # (Auto) 15.4H, Lymphocytes # (Auto) 1.8, Monocytes # (Auto) 1.4H, Eosinophils # (Auto) 0.7H, Basophils # (Auto) 0.1, Sodium Level 141, Potassium Level 4.3, Chloride Level 103, Carbon Dioxide Level 26, Anion Gap 12, Blood Urea Nitrogen 26H, Creatinine 0.78, Estimat Glomerular Filtration Rate > 60, BUN/Creatinine Ratio 33, Glucose Level 176H, Calcium Level 8.3L, Corrected Calcium 9.1, Phosphorus Level 3.0, Magnesium Level 2.2, Total Bilirubin 0.3, Aspartate Amino Transf (AST/SGOT) 15, Alanine Aminotransferase (ALT/SGPT) 13, Alkaline Phosphatase 64, Total Protein 6.7, Albumin 3.0L, Triglycerides Level 326H 11/27/18 08:12: Glucometer 207H Microbiology 11/21/18 Blood Culture - Final, Complete No growth 11/20/18 Gram Stain - Final, Complete 11/20/18 Sputum Culture - Final, Complete Usual upper respiratory chandana 11/20/18 Urine Culture - Final, Complete NO GROWTH Assessment/Plan Assessment/Plan Assess & Plan/Chief Complaint s/p open repair recurrent ventral abd incisional hernia with mesh with multiple medical comorbidities including diabetes, copd and morbid obesity. exacerbation copd and non s-t elevation HI. cont abx for high risk pneumonia/wound infxn. enterocutaneous fistula. will start TPN and octreotide gtt. clear liquids. ok for surgical floor. small skin opening for fistula due to long tract and subcutaneous adipose tissue. will open wound and debride repeat cbc later today. will add diflucan to cover fungal.. Clinical Quality Measures DVT/VTE Risk/Contraindication: Risk Factor Score Per Nursin RFS Level Per Nursing on Admit: 4+=Very High WENDI ELIZABETH MD Nov 27, 2018 11:09
--- NOTE | 2018-11-27 11:53 | Progress Note - Hospitalist ---
Subjective HPI/CC On Admission Date Seen by Provider: Nov 27, 2018 Time Seen by Provider: 11:30 I was asked to see patient in consultation For elevated blood sugars. The patient was somnolent and could not stay awake during my conversation and exam. Stat blood sugar was 250. the patient recently had some pain medication and I am concerned that she has CO2 retention with chronic apnea. blood gas is pending. Subjective/Events-last exam Dr. Olvera has evaluated the wound fistula area and packing is in place Elevated white count noted Maintain on IV antibiotics, TPN, clear liquid diet only On high flow 8 L now Used her BiPAP last night and slept a lot better Was able to get to the side of the bed just for a little bit but she did accomplish that Denies any pain Check meds and labs Conferred with continuity editor of Systems General: Fatigue Pulmonary: Dyspnea Gastrointestinal: Abdominal Pain Objective Exam Vital Signs Vital Signs Date Time Temp Pulse Resp B/P (MAP) Pulse Ox O2 Delivery O2 Flow Rate FiO2 11/27/18 13:53 93 High Flow N/C 8.00 11/27/18 13:00 88 11/27/18 12:00 97.2 20 138/90 (106) 11/27/18 08:00 45 Capillary Refill : Less Than 3 SecondsLess Than 3 Seconds General Appearance: No Apparent Distress, WD/WN, Chronically ill, Obese Respiratory: Chest Non Tender, Lungs Clear, Normal Breath Sounds, No Accessory Muscle Use, No Respiratory Distress Cardiovascular: Regular Rate, Rhythm, No Edema, No Gallop, No JVD, No Murmur, Normal Peripheral Pulses Neurologic/Psychiatric: Alert, Oriented x3, No Motor/Sensory Deficits, Normal Mood/Affect Skin: Normal Color, Warm/Dry Results/Procedures Lab Laboratory Tests 11/27/18 04:55 Patient resulted labs reviewed. Assessment/Plan Assessment and Plan Assess & Plan/Chief Complaint Assessment: s/p VDRF now extubated and transferred to 4th floor Obesity hypoventilation syndrome Non-compliance Smoker COPD Enterocutaneous fistula Plan: Monitor closely Monitor resp status closely TPN Abx biPAP at night Diagnosis/Problems Diagnosis/Problems (1) Ventilator dependence Status: Resolved Resolution Date/Time: 11/25/18 @ 20:44 (2) Obesity hypoventilation syndrome Status: Chronic (3) COPD (chronic obstructive pulmonary disease) Status: Chronic Qualifiers: COPD type: unspecified COPD Qualified Codes: J44.9 - Chronic obstructive pulmonary disease, unspecified (4) Smoker Status: Chronic (5) Enterocutaneous fistula Status: Acute (6) BRAYAN treated with BiPAP Status: Chronic (7) Hypokalemia Status: Acute (8) On total parenteral nutrition (TPN) Status: Acute Clinical Quality Measures DVT/VTE Risk/Contraindication: Risk Factor Score Per Nursin RFS Level Per Nursing on Admit: 4+=Very High ALEIDA LICEA DO Nov 27, 2018 11:53
[2018-11-27 12:00] VITALS: BP 138/90
--- NOTE | 2018-11-27 12:30 | Cardiology Progress Note ---
Cardiology SOAP Progress Note Subjective: no cardiac complaints. Objective: I&O/Vital Signs 11/27/18 11/27/18 11/27/18 11/27/18 01:54 04:00 06:34 07:00 Temp 97.8 Pulse 84 75 Resp 21 B/P (MAP) 122/72 (89) Pulse Ox 91 92 91 O2 Delivery Vapotherm Vapotherm Vapotherm O2 Flow Rate 15.00 45.00 15.00 15.00 FiO2 45 45 11/27/18 11/27/18 11/27/18 11/27/18 08:00 08:00 10:57 12:00 Temp 97.9 97.2 Pulse 74 87 Resp 20 20 B/P (MAP) 155/85 (108) 138/90 (106) Pulse Ox 90 86 95 O2 Delivery Vapotherm Vapotherm Room Air High Flow N/C O2 Flow Rate 10.00 45.00 8.00 10.00 FiO2 45 11/27/18 00:00 Intake Total 2780.2833 ml Output Total 2250 ml Balance 530.2833 ml Weight (Pounds): 297 Weight (Ounces): 6.0 Weight (Calculated Kilograms): 134.085326 Constitutional: AAO x 3 Respiratory: No accessory muscle use, No respiratory distress, No chest tender, No chest expansion is symmetric; chest is bilaterally symmetric; No lungs clear to percussion; lungs clear to auscultation; No crackles, No rhonchi, No rales, No stridor, No wheezing, No pleural rub, No other Cardiovascular: regular rate-rhythm; No irregularly irregular, No extra beats, No parasternal heave is noted, No JVD, No edema, No bradycardia, No tachycardia, No point of maximal impulse, No cardiac thrills are palpable; S1 and S2; No gallop/S3, No gallop/S4, No diastolic murmur, No systolic murmur, No friction rub, No click, No other Gastrointestional: No tender, No soft, No round, No distended, No pulsatile mass, No organomegaly, No guarding, No rebound, No tenderness, No hernia, No mass, No audible bowel sounds, No abnormal bowel sounds, No abdominal bruits, No spleenomegaly, No other Extremities: No normal range of motion, No non-tender, No normal inspection, No pedal edema, No calf tenderness, No normal capillary refill, No pelvis stable, No calf tenderness, No inflammation, No pedal edema, No slow capillary refill, No swelling, No other, No abrasion, No clubbing, No cyanosis, No ecchymosis, No laceration, No no lower extremity edema bilateral, No significant edema, No tenderness, No wound Neurologic/Psychiatric: no motor/sensory deficits, alert, normal mood/affect, oriented x 3 Skin: No normal color, No warm/dry, No cyanosis, No cool, No diaphoresis, No damp, No ecchymosis, No jaundice, No mottled, No pallor, No rash, No tattoos/piercings, No ulcerations, No rash on exposed areas, No ulcerations on exposed areas, No other Results/Procedures: Labs Laboratory Tests 11/26/18 15:45: Glucometer 292H 11/26/18 20:06: Glucometer 161H 11/27/18 00:31: Glucometer 222H 11/27/18 04:40: Glucometer 169H 11/27/18 04:55: White Blood Count 19.4H, Red Blood Count 4.43, Hemoglobin 12.5, Hematocrit 40, Mean Corpuscular Volume 91, Mean Corpuscular Hemoglobin 28, Mean Corpuscular Hemoglobin Concent 31L, Red Cell Distribution Width 14.9H, Platelet Count 331, Mean Platelet Volume 10.0, Neutrophils (%) (Auto) 79H, Lymphocytes (%) (Auto) 9L , Monocytes (%) (Auto) 7, Eosinophils (%) (Auto) 4, Basophils (%) (Auto) 1, Neutrophils # (Auto) 15.4H, Lymphocytes # (Auto) 1.8, Monocytes # (Auto) 1.4H, Eosinophils # (Auto) 0.7H, Basophils # (Auto) 0.1, Sodium Level 141, Potassium Level 4.3, Chloride Level 103, Carbon Dioxide Level 26, Anion Gap 12, Blood Urea Nitrogen 26H, Creatinine 0.78, Estimat Glomerular Filtration Rate > 60, BUN/Creatinine Ratio 33, Glucose Level 176H, Calcium Level 8.3L, Corrected Calcium 9.1, Phosphorus Level 3.0, Magnesium Level 2.2, Total Bilirubin 0.3, Aspartate Amino Transf (AST/SGOT) 15, Alanine Aminotransferase (ALT/SGPT) 13, Alkaline Phosphatase 64, Total Protein 6.7, Albumin 3.0L, Triglycerides Level 326H 11/27/18 08:12: Glucometer 207H 11/27/18 12:13: Glucometer 200H Microbiology 11/21/18 Blood Culture - Final, Complete No growth 11/20/18 Gram Stain - Final, Complete 11/20/18 Sputum Culture - Final, Complete Usual upper respiratory chandana 11/20/18 Urine Culture - Final, Complete NO GROWTH A/P: Assessment/Dx: Acute respiratory failure Non-ST elevation myocardial infarction, type II [place] Hypertension Hyperlipidemia Plan: Status post respiratory failure, extubated, using C Pap on and off. Doing better managed by medical team New fistula/enterocutaneous fistula postoperatively, 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 Olvera Acute non-ST elevation myocardial infarction, poor R-wave progression in the anterior leads, probably type II myocardial infarction due to respiratory failure, underlying coronary artery disease cannot be entirely excluded. Echocardiogram showed normal LV function. Continue with conservative management at this time, continue to monitor. Troponin level is trending down, no acute EKG changes suggestive of active ischemia, conservative management at this time. Continue to monitor Hypertension, was borderline hypotensive, currently hypertensive, Continue with IV Lopressor and monitor Hyperlipidemia maintained on Lipitor on hold at this point COPD, oxygen dependent, progressed into respiratory failure after abdominal surgery, intubated. Managed by primary care team Morbid obesity Diabetes mellitus, followed and managed by primary care physician History of tobaccoism Thank you for your consultation. Please call me if you have any questions. Dale Hanley MD, FACP, FACC, FSCAI, FHRS, CCDS Interventional Cardiology Cardiac Electrophysiology Vascular Medicine and Endovascular Interventions Alaina HANLEY MD Nov 27, 2018 12:30
[2018-11-27 16:32] VITALS: BP 163/108
[2018-11-27 16:36] VITALS: BP 155/88
[2018-11-27] MEDS: [UNRECOGNIZED DRUG - OTHER] IV SCH ×11 (16:37)
[2018-11-27] MEDS: POTASSIUM CHLORIDE IV SCH ×11 (16:37)
[2018-11-27] MEDS: SODIUM CHLORIDE IV SCH ×11 (16:37)
[2018-11-27 17:32] LABS: HEMOGLOBIN 12.4 G/DL (11.5-16.0); MEAN PLATELET VOLUME 9.7 FL (7.4-10.4); RED CELL DISTRIBUTION WIDTH 15.1 % (10.0-14.5)
[2018-11-27 20:45] VITALS: BP 157/84
[2018-11-27] MEDS: ATORVASTATIN 40 MG (LIPITOR) TABLET PO SCH (20:55)
[2018-11-28] VITALS: BP 145/82
[2018-11-28] MEDS: inSUlin ASPART (NovoLOG) 1 UNIT/0.01 ML (CHARGE PER UNIT) SC SCH ×5 (00:12→18:18)
[2018-11-28] MEDS: CLINDAMYCIN 600 MG/50 ML IVPB 50 ML IV SCH ×3 (00:44→16:05)
[2018-11-28] MEDS: fentaNYL INJECTION 100 MCG/2 ML AMP IV PRN ×3 (00:44→12:35)
[2018-11-28] MEDS: PIPERACILLIN/TAZOBACTAM (BULK) 4.5 GM in NS (IVPB) 100 ML IV SCH ×3 (00:44→16:05)
[2018-11-28] MEDS: meTOprolol 5 MG/5 ML (LOPRESSOR) VIAL IV SCH ×2 (00:44→06:41)
[2018-11-28] MEDS: RT-ALBUTEROL/IPRATROPIUM 3 ML (DUONEB) VIAL IH SCH ×6 (03:28→21:23)
[2018-11-28 04:00] VITALS: BP 154/78
[2018-11-28] MEDS: OCTREOTIDE INJECTION 500 MCG in NS (IVPB) 97.5 ML IV SCH ×2 (04:18→14:19)
[2018-11-28 05:29] LABS: BASOPHILS # (AUTO) 0.1 10^3/uL (0.0-0.1); BASOPHILS % (AUTO) 0 % (0-10); EOSINOPHILS # (AUTO) 0.6 10^3/uL (0.0-0.3); EOSINOPHILS % (AUTO) 4 % (0-10); HEMATOCRIT 39 % (35-52); HEMOGLOBIN 11.8 G/DL (11.5-16.0); LYMPHOCYTES # (AUTO) 1.4 X 10^3 (1.0-4.0); LYMPHOCYTES % (AUTO) 8 % (12-44); MEAN CORPUSCULAR HEMOGLOBIN 28 PG (25-34); MEAN CORPUSCULAR HGB CONC 30 G/DL (32-36); MEAN CORPUSCULAR VOLUME 92 FL (80-99); MEAN PLATELET VOLUME 9.6 FL (7.4-10.4); MONOCYTES # (AUTO) 1.3 X 10^3 (0.0-1.0); MONOCYTES % (AUTO) 8 % (0-12); NEUTROPHILS # (AUTO) 14.4 X 10^3 (1.8-7.8); NEUTROPHILS % (AUTO) 81 % (42-75); PLATELET COUNT 344 10^3/uL (130-400); RED CELL DISTRIBUTION WIDTH 15.2 % (10.0-14.5); WHITE BLOOD COUNT 17.8 10^3/uL (4.3-11.0)
[2018-11-28] MEDS: RT-ADVAIR HFA 115/21 MCG PER PUFF IH SCH ×2 (06:03→20:21)
[2018-11-28 06:05] LABS: BUN/CREATININE RATIO 31; CALCIUM 8.3 MG/DL (8.5-10.1); CARBON DIOXIDE 24 MMOL/L (21-32); CHLORIDE 107 MMOL/L (98-107); CREATININE SERUM 0.78 MG/DL (0.60-1.30); GFR ESTIMATED > 60; GLUCOSE 185 MG/DL (70-105); MAGNESIUM 1.8 MG/DL (1.6-2.4); PHOSPHORUS 3.5 MG/DL (2.3-4.7); POTASSIUM 4.9 MMOL/L (3.6-5.0); SODIUM 140 MMOL/L (135-145)
[2018-11-28 08:00] VITALS: BP 149/78
[2018-11-28] MEDS: VITAMIN D3 5,000 UNITS (CHOLECALCIFEROL ) CAPSULE PO SCH (08:32)
[2018-11-28] MEDS: lisINopril 20 MG (PRINIVIL) TABLET PO SCH (08:33)
[2018-11-28] MEDS: DULoxetine 30 MG (CYMBALTA) CAP PO SCH (08:33)
[2018-11-28] MEDS: buPROPion SR 150 MG (WELLBUTRIN SR) TAB PO SCH (08:33)
[2018-11-28] MEDS: amLODIPine 10 MG (NORVASC) TAB PO SCH (08:33)
[2018-11-28] MEDS: ENOXAPARIN 60 MG/0.6 ML (LOVENOX) SYR SC SCH ×2 (08:33→21:30)
[2018-11-28] MEDS: OMEGA 3 (FISH OIL) 1000 MG CAP PO SCH (08:33)
[2018-11-28] MEDS: LINAGLIPTIN (TRADJENTA) 5 MG TABLET PO SCH (08:33)
[2018-11-28] MEDS: DOCUSATE SODIUM 100 MG (COLACE) CAP PO SCH ×2 (08:34→21:30)
[2018-11-28] MEDS: MAGNESIUM OXIDE (MAG-OX)400 MG TAB PO SCH (08:34)
--- NOTE | 2018-11-28 08:47 | Cardiology Progress Note ---
Subjective Date Seen by Provider: Nov 28, 2018 Time Seen by Provider: 08:45 Subjective/Events-last exam Patient is laying down in bed, feeling better, no new complaint. No chest pain. Review of Systems General: No Chills, No Night Sweats, No Fatigue, No Malaise, No Appetite, No Other HEENT: No Head Aches, No Visual Changes, No Eye Pain, No Ear Pain, No Dysphasia, No Sinus Congestion, No Post Nasal Drip, No Sore Throat, No Other Pulmonary: No Dyspnea, No Cough, No Pleuritic Chest Pain, No Other Cardiovascular: No: Chest Pain, Palpitations, Orthopnea, Paroxysmal Noc. Dyspnea, Edema, Lt Headedness, Other Objective-Cardiology Exam Last Set of Vital Signs Vital Signs 11/27/18 11/28/18 11/28/18 11/28/18 08:00 04:00 06:07 07:00 Temp 97.6 Pulse 68 Resp 20 B/P (MAP) 154/78 (103) Pulse Ox 92 O2 Delivery High Flow N/C O2 Flow Rate 8.00 FiO2 45 Capillary Refill : Less Than 3 SecondsLess Than 3 Seconds I&O Intake and Output 11/28/18 00:00 Intake Total 850 ml Output Total 2105 ml Balance -1255 ml Intake Oral 850 ml Output Urine Total 1775 ml Stool Total 280 ml Other 50 ml General: Alert, Oriented X3, Cooperative, Mild Distress HEENT: Atraumatic Neck: Supple Lungs: Clear to Auscultation, Normal Air Movement Heart: Regular Rate, Normal S1, Normal S2 Abdomen: Other (diminished bowel sounds, new fistula with discharge at the surgical site) Extremities: No Clubbing, Other (Edema) Skin: No Rashes Neuro: Normal Speech Psych/Mental Status: Mood NL Results Lab Laboratory Tests 11/27/18 17:05 11/28/18 04:59 A/P-Cardiology Admission Diagnosis Acute respiratory failure Non-ST elevation myocardial infarction, type II [place] Hypertension Hyperlipidemia Assessment/Plan Status post respiratory failure, extubated, using C Pap on and off, managed by medical team New enterocutaneous fistula postoperatively, 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 Olvera Acute non-ST elevation myocardial infarction, poor R-wave progression in the anterior leads, probably type II myocardial infarctions due to respiratory failure, underlying coronary artery disease cannot be entirely excluded. Echocardiogram showed normal LV function. Continue with conservative management at this time, continue to monitor. Troponin level is trending down, no acute EKG changes suggestive of active ischemia, conservative management at this time. Continue to monitor Hypertension, was borderline hypotensive, better at this time, I will switch Lopressor to oral and evaluate tolerance and response Hyperlipidemia maintained on Lipitor on hold at this point COPD, oxygen dependent, progressed into respiratory failure after abdominal surgery, intubated. Managed by primary care team Morbid obesity Diabetes mellitus, followed and managed by primary care physician History of tobaccoism Clinical Quality Measures DVT/VTE Risk/Contraindication: Risk Factor Score Per Nursin RFS Level Per Nursing on Admit: 4+=Very High AUSTEN MARTÍNEZ MD Nov 28, 2018 08:47
[2018-11-28] MEDS: FLUCONAZOLE 200 MG/100 ML 50 ML, EMPTY IV BAG (PVC) 1 EA IV SCH ×2 (09:13)
[2018-11-28] MEDS: meTOprolol TARTRATE 25 MG (LOPRESSOR) TABLET PO SCH ×3 (09:19→21:30)
--- NOTE | 2018-11-28 11:05 | Physical Therapy Daily Note ---
PT Daily Note-Current Subjective Patient agrees to PT. Mental Status Patient Orientation: Normal For Age Attachments: Oxygen, Gonzalez Catheter, IV Transfers Therapy Code Descriptions/Definitions Functional [place] Measure: 0=Not Assessed/NA 4=Minimal Assistance 1=Total Assistance 5=Supervision or Setup 2=Maximal Assistance 6=Modified [place] 3=Moderate Assistance 7=Complete [place] Therapy Quality Codes: 6 Independent with activity with or without an assistive device 5 Patient requires set up or clean up by helper. Patient completes activity by themselves 4 Supervision or touching assist (CGA). Purdum provide cues , steadying assist 3 The helper provides less than half the effort to complete the activity 2 The helper provides more than half the effort to complete the activity 1 Dependent. The helper does all the effort to complete an activity 7 Patient refused to complete or attempt activity 9 The patient did not perform the activity before the current illness or injury 88 Not attempted due to Medical conditions or safety concerns Transfers (B, C, W/C) (FIM): 2 Scootin Rollin Supine to/from Sit: 2 Sit to/from Stand: 2 patient sat EOB x 12 min and performed sit to pharmacy informaticist flexed trunk posture x 4 sets with use of chair. Patient declined OOB to recliner on this date. Weight Bearing Right Lower Extremity: Right Full Weight Bearing Left Lower Extremity: Left Full Weight Bearing Exercises Supine Ex: Ankle pumps, Quad Set, Heel Slides, Straight leg raise, Hip abd/add Supine Reps: 12 (AAROM bilaterally) Assessment Patient progressing with treatment plan and returned to supine in bed with needs met. Patient unable to stand erect on this date due to weakness, however, is progressing. PT Hotel Associate Goals Hotel Associate Goals PT Detention Goals Time Frame: Dec 10, 2018 Transfers (B,C,W/C) (FIM): 4 Gait (FIM): 1 Gait distance (FIM): 1=up to 49 ft Distance: 25' Gait Level of Assist: 4 Gait Assistive Device: FWW PT Plan Treatment/Plan Treatment Plan: Continue Plan of Care Treatment Plan: Bed Mobility, Education, Functional Activity Juan F, Functional Strength, Gait, Safety, Therapeutic Exercise, Transfers Treatment Duration: Dec 10, 2018 Frequency: 6 times per week Estimated Hrs Per Day: .25 hour per day Patient and/or Family Agrees t: Yes Time/GCodes Time In: 1000 Time Out: 1024 Total Billed Treatment Time: 24 Total Billed Treatment 1 visit EX 10 min FA 14 min BO [place] PT Nov 28, 2018 11:05
[2018-11-28 12:00] VITALS: BP 157/79
--- NOTE | 2018-11-28 12:39 | Occupational Ther Daily Note ---
OT Current Status-Daily Note Subjective As LIGHT walked into room pt stated I am not moving anymore today. LIGHT explained about OT and working on UE exercises to increased activity tolerance. Pt agrees to therapy. Mental Status/Objective Patient Orientation: Person, Place, Time, Situation Therapy Code Descriptions/Definitions Functional [place] Measure: 0=Not Assessed/NA 4=Minimal Assistance 1=Total Assistance 5=Supervision or Setup 2=Maximal Assistance 6=Modified [place] 3=Moderate Assistance 7=Complete [place] Attachments: IV, Oxygen Other Treatment Pt stated that she would do a few exercises because she was very tired. LIGHT demonstrated 2 UE medium resistance theraband to pt then pt demonstrated understanding of exercises by completed 5 reps of each exercise. Pt declined completing anymore exercises for today. After therapy, pt lying in bed with call light/phone in reach. All needs met in room. OT Short Term Goals Short Term Goals 1=Demonstrate adherence to instructed precautions during ADL tasks. 2=Patient will verbalize/demonstrate understanding of assistive devices/modifications for ADL. 3=Patient will improve strength/tolerance for activity to enable patient to perform ADL's. OT Agricultural Research Technician Goals Half-Way Goals Time Frame: Dec 09, 2018 Eating (FIM): 5 Grooming(FIM): 5 Upper Body Dressing(FIM): 4 Toileting(FIM): 4 Toilet/Commode Transfer(FIM): 4 Additional Goals: 1-Demonstrate ADL Tasks, 2-Verbalize Understanding, 3- ImproveStrength/Juan F 1=Demonstrate adherence to instructed precautions during ADL tasks. 2=Patient will verbalize/demonstrate understanding of assistive devices/modifications for ADL. 3=Patient will improve strength/tolerance for activity to enable patient to perform ADL's. OT Education/Plan Problem List/Assessment Assessment: Decreased Activ Tolerance, Decreased UE Strength Pt demonstrates decreased activity tolerance, mobility, strength, and ADL functioning. Pt to benefit from skilled OT intervention for ADL training, transfers, strengthening, and safety education to increase level of functional independence and allow safe discharge plan. Discharge Recommendations Plan/Recommendations: Continue POC Treatment Plan/Plan of Care Patient would benefit from OT for education, treatment and training to promote independence in ADL's, mobility, safety and/or upper extremity function for ADL's. Plan of Care: ADL Retraining, Functional Mobility, UE Funct Exercise/Act Treatment Duration: Dec 09, 2018 Frequency: 5 times per week Estimated Hrs Per Day: .25 hour per day Rehab Potential: Fair Time/GCodes Start Time: 11:48 Stop Time: 12:00 Total Time Billed (hr/min): 12 Billed Treatment Time 1 visit-EX 1 (12 min) CEDRIC DURANT Nov 28, 2018 12:39
--- NOTE | 2018-11-28 12:53 | NUR ---
TPN: TYPE III OBESITY GOALS ARE 25 KCAL/IBW (1300 KCAL) WITH 2.5GM/KG IBW (130 GM). PROTEIN ADVANCED IN TPN. TPN WILL RUN AT 65 ML/HR PROVIDING 1460 KCAL AND 120 GM PROTEIN.
--- NOTE | 2018-11-28 13:28 | Progress Note ---
Subjective Date Seen by a Provider: Nov 28, 2018 Time Seen by a Provider: 13:00 Subjective/Events-last exam doing well. no fever/chills. no new skin redness/erythema, high output fistula at this time. respiratory status stable Objective Exam Vital Signs Date Time Temp Pulse Resp B/P (MAP) Pulse Ox O2 Delivery O2 Flow Rate FiO2 11/28/18 12:28 77 11/28/18 10:34 95 High Flow N/C 8.00 11/28/18 08:00 95 High Flow N/C 8.00 11/28/18 08:00 98.0 68 20 149/78 (101) 95 High Flow N/C 8.00 11/28/18 07:00 68 11/28/18 06:07 92 High Flow N/C 8.00 11/28/18 04:00 97.6 85 20 154/78 (103) 94 High Flow N/C 8.00 11/28/18 01:00 75 11/28/18 00:00 97.6 85 18 145/82 (103) 96 High Flow N/C 8.00 11/27/18 22:01 95 High Flow N/C 8.00 11/27/18 20:45 97.8 80 24 157/84 (108) 96 High Flow N/C 8.00 11/27/18 20:00 High Flow N/C 8.00 11/27/18 19:00 73 11/27/18 17:58 93 High Flow N/C 8.00 11/27/18 16:36 155/88 (110) 11/27/18 16:32 97.3 82 20 163/108 (126) 95 High Flow N/C 8.00 11/27/18 13:53 93 High Flow N/C 8.00 I & O 11/28/18 07:00 Intake Total 560 ml Output Total 2405 ml Balance -1845 ml Capillary Refill : Less Than 3 SecondsLess Than 3 Seconds General Appearance: No Apparent Distress HEENT: PERRL/EOMI Neck: Full Range of Motion Respiratory: Decreased Breath Sounds, Rhonci Cardiovascular: Regular Rate, Rhythm Gastrointestinal: normal bowel sounds, soft, other (no new redness/erythema skin, high output fistula) Extremity: Normal Capillary Refill Neurologic/Psychiatric: Alert, Oriented x3 Skin: Normal Color Lymphatic: No Adenopathy Results Lab Laboratory Tests 11/27/18 16:29: Glucometer 226H 11/27/18 17:05: White Blood Count 20.0H, Red Blood Count 4.45, Hemoglobin 12.4, Hematocrit 40, Mean Corpuscular Volume 91, Mean Corpuscular Hemoglobin 28, Mean Corpuscular Hem oglobin Concent 31L, Red Cell Distribution Width 15.1H, Platelet Count 354, Mean Platelet Volume 9.7 11/27/18 20:43: Glucometer 176H 11/27/18 23:55: Glucometer 172H 11/28/18 04:16: Glucometer 181H 11/28/18 04:59: White Blood Count 17.8H, Red Blood Count 4.29L, Hemoglobin 11.8, Hematocrit 39, Mean Corpuscular Volume 92, Mean Corpuscular Hemoglobin 28, Mean Corpuscular Hemoglobin Concent 30L, Red Cell Distribution Width 15.2H, Platelet Count 344, Mean Platelet Volume 9.6, Neutrophils (%) (Auto) 81H, Lymphocytes (%) (Auto) 8L, Monocytes (%) (Auto) 8, Eosinophils (%) (Auto) 4, Basophils (%) (Auto) 0, Neutrophils # (Auto) 14.4H, Lymphocytes # (Auto) 1.4, Monocytes # (Auto) 1.3H, Eosinophils # (Auto) 0.6H, Basophils # (Auto) 0.1, Sodium Level 140, Potassium Level 4.9, Chloride Level 107, Carbon Dioxide Level 24, Anion Gap 9, Blood Urea Nitrogen 24H, Creatinine 0.78, Estimat Glomerular Filtration Rate > 60, BUN/Creatinine Ratio 31, Glucose Level 185H, Calcium Level 8.3L, Phosphorus Level 3.5, Magnesium Level 1.8 11/28/18 08:40: Glucometer 168H 11/28/18 11:30: Glucometer 214H Microbiology 11/21/18 Blood Culture - Final, Complete No growth 11/20/18 Gram Stain - Final, Complete 11/20/18 Sputum Culture - Final, Complete Usual upper respiratory chandana 11/20/18 Urine Culture - Final, Complete NO GROWTH Assessment/Plan Assessment/Plan Assess & Plan/Chief Complaint s/p open repair recurrent ventral abd incisional hernia with mesh with multiple medical comorbidities including diabetes, copd and morbid obesity. exacerbation copd and non s-t elevation [place]. cont abx for high risk pneumonia/wound infxn. enterocutaneous fistula. will start TPN and octreotide gtt. clear liquids. ok for surgical floor. small skin opening for fistula due to long tract and subcutaneous adipose tissue. will open wound and debride repeat cbc later today. will add diflucan to cover fungal. cont PT/OT. may need IRU vs. ECF Clinical Quality Measures DVT/VTE Risk/Contraindication: Risk Factor Score Per Nursin RFS Level Per Nursing on Admit: 4+=Very High WENDI ELIZABETH MD Nov 28, 2018 13:28
--- NOTE | 2018-11-28 14:35 | Pulmonary Progress Note ---
Subjective Time Seen by a Provider: 12:19 Subjective/Events-last exam Pt appears to be doing better. Sepsis Event Evaluation Height, Weight, BMI Height: 5'3.00" Weight: 300lbs. 8.0oz. 136.701367gm; 52.3 BMI Method:Stated Exam Exam Vital Signs Date Time Temp Pulse Resp B/P (MAP) Pulse Ox O2 Delivery O2 Flow Rate FiO2 11/28/18 14:13 93 High Flow N/C 8.00 11/28/18 12:28 77 11/28/18 12:00 97.1 73 22 157/79 (105) 96 High Flow N/C 8.00 11/28/18 10:34 95 High Flow N/C 8.00 11/28/18 08:00 95 High Flow N/C 8.00 11/28/18 08:00 98.0 68 20 149/78 (101) 95 High Flow N/C 8.00 11/28/18 07:00 68 11/28/18 06:07 92 High Flow N/C 8.00 11/28/18 04:00 97.6 85 20 154/78 (103) 94 High Flow N/C 8.00 11/28/18 01:00 75 11/28/18 00:00 97.6 85 18 145/82 (103) 96 High Flow N/C 8.00 11/27/18 22:01 95 High Flow N/C 8.00 11/27/18 20:45 97.8 80 24 157/84 (108) 96 High Flow N/C 8.00 11/27/18 20:00 High Flow N/C 8.00 11/27/18 19:00 73 11/27/18 17:58 93 High Flow N/C 8.00 11/27/18 16:36 155/88 (110) 11/27/18 16:32 97.3 82 20 163/108 (126) 95 High Flow N/C 8.00 I & O 11/28/18 07:00 Intake Total 560 ml Output Total 2405 ml Balance -1845 ml Height & Weight Height: 5'3.00" Weight: 300lbs. 8.0oz. 136.757261ik; 52.3 BMI Method:Stated General Appearance: No Apparent Distress HEENT: PERRL/EOMI Neck: Full Range of Motion Respiratory: Decreased Breath Sounds, Rhonci Cardiovascular: Regular Rate, Rhythm Capillary Refill: Less Than 3 Seconds Gastrointestinal: normal bowel sounds, soft, other (no new redness/erythema skin, high output fistula) Extremity: Normal Capillary Refill Neurologic/Psychiatric: Alert, Oriented x3 Skin: Normal Color Lymphatic: No Adenopathy Results Lab Laboratory Tests 11/27/18 04:55 11/27/18 17:05 11/28/18 04:59 Assessment/Plan Assessment/Plan Acute on chronic respiratory failure -SVNS - change to Q 4 scheduled Hyperglycemia Morbid obesity with OHS DM II S/p Hernia repair surgery -Dr. Olvera following . Hx of severe COPD oxygen dependent Acute on chronic renal failure- improved -Monitor Elevated troponin -cardiology following MERCEDES GARNICA DO Nov 28, 2018 14:35
[2018-11-28 15:20] VITALS: BP 145/71
[2018-11-28] MEDS: SODIUM CHLORIDE IV SCH ×11 (16:27)
[2018-11-28] MEDS: POTASSIUM CHLORIDE IV SCH ×11 (16:27)
[2018-11-28] MEDS: [UNRECOGNIZED DRUG - OTHER] IV SCH ×11 (16:27)
[2018-11-28 20:16] VITALS: BP 138/89
[2018-11-28] MEDS: ATORVASTATIN 40 MG (LIPITOR) TABLET PO SCH (21:30)
[2018-11-29 00:30] VITALS: BP 158/81
[2018-11-29] MEDS: inSUlin ASPART (NovoLOG) 1 UNIT/0.01 ML (CHARGE PER UNIT) SC SCH ×4 (00:30→18:12)
[2018-11-29] MEDS: PIPERACILLIN/TAZOBACTAM (BULK) 4.5 GM in NS (IVPB) 100 ML IV SCH ×4 (00:58→23:47)
[2018-11-29] MEDS: CLINDAMYCIN 600 MG/50 ML IVPB 50 ML IV SCH ×3 (00:58→16:31)
[2018-11-29] MEDS: OCTREOTIDE INJECTION 500 MCG in NS (IVPB) 97.5 ML IV SCH ×3 (00:58→20:18)
[2018-11-29] MEDS: RT-ALBUTEROL/IPRATROPIUM 3 ML (DUONEB) VIAL IH SCH ×6 (02:00→21:28)
[2018-11-29 04:05] VITALS: BP 151/80
[2018-11-29 06:00] LABS: BASOPHILS # (AUTO) 0.1 10^3/uL (0.0-0.1); BASOPHILS % (AUTO) 1 % (0-10); EOSINOPHILS # (AUTO) 0.6 10^3/uL (0.0-0.3); EOSINOPHILS % (AUTO) 3 % (0-10); HEMATOCRIT 37 % (35-52); HEMOGLOBIN 11.3 G/DL (11.5-16.0); LYMPHOCYTES # (AUTO) 1.9 X 10^3 (1.0-4.0); LYMPHOCYTES % (AUTO) 11 % (12-44); MEAN CORPUSCULAR HEMOGLOBIN 28 PG (25-34); MEAN CORPUSCULAR HGB CONC 31 G/DL (32-36); MEAN CORPUSCULAR VOLUME 92 FL (80-99); MEAN PLATELET VOLUME 9.8 FL (7.4-10.4); MONOCYTES # (AUTO) 1.3 X 10^3 (0.0-1.0); MONOCYTES % (AUTO) 8 % (0-12); NEUTROPHILS # (AUTO) 13.2 X 10^3 (1.8-7.8); NEUTROPHILS % (AUTO) 77 % (42-75); PLATELET COUNT 326 10^3/uL (130-400); WHITE BLOOD COUNT 17.2 10^3/uL (4.3-11.0)
[2018-11-29 06:17] LABS: BUN/CREATININE RATIO 31; CALCIUM 8.5 MG/DL (8.5-10.1); CARBON DIOXIDE 25 MMOL/L (21-32); CHLORIDE 105 MMOL/L (98-107); CREATININE SERUM 0.78 MG/DL (0.60-1.30); GFR ESTIMATED > 60; GLUCOSE 154 MG/DL (70-105); MAGNESIUM 2.1 MG/DL (1.6-2.4); PHOSPHORUS 3.6 MG/DL (2.3-4.7); POTASSIUM 4.7 MMOL/L (3.6-5.0); SODIUM 139 MMOL/L (135-145); TRIGLYCERIDES 236 MG/DL (<150)
[2018-11-29] MEDS: RT-ADVAIR HFA 115/21 MCG PER PUFF IH SCH ×2 (06:21→18:38)
[2018-11-29 08:00] VITALS: BP 114/59
--- NOTE | 2018-11-29 08:05 | Cardiology Progress Note ---
Subjective Date Seen by Provider: Nov 29, 2018 Time Seen by Provider: 08:03 Subjective/Events-last exam patient is laying down in bed, feeling better, breathing better. Denied any chest pain Review of Systems General: No Chills, No Night Sweats; Fatigue, Malaise; No Appetite, No Other HEENT: No Head Aches, No Visual Changes, No Eye Pain, No Ear Pain, No Dysphasia, No Sinus Congestion, No Post Nasal Drip, No Sore Throat, No Other Pulmonary: Dyspnea; No Cough, No Pleuritic Chest Pain, No Other Cardiovascular: No: Chest Pain, Palpitations, Orthopnea, Paroxysmal Noc. Dyspnea, Edema, Lt Headedness, Other Objective-Cardiology Exam Last Set of Vital Signs Vital Signs 11/27/18 11/29/18 11/29/18 11/29/18 08:00 04:05 06:18 07:00 Temp 97.4 Pulse 71 Resp 20 B/P (MAP) 151/80 (103) Pulse Ox 95 O2 Delivery Nasal Cannula O2 Flow Rate 5.00 FiO2 45 Capillary Refill : Less Than 3 SecondsLess Than 3 Seconds I&O Intake and Output 11/29/18 00:00 Intake Total 3244 ml Output Total 3400 ml Balance -156 ml Intake Oral 1050 ml IV Total 2194 ml Output Urine Total 3150 ml Stool Total 50 ml Other 200 ml General: Alert, Oriented X3, Cooperative, Mild Distress HEENT: Atraumatic Neck: Supple Lungs: Clear to Auscultation, Normal Air Movement Heart: Regular Rate, Normal S1, Normal S2 Abdomen: Other (diminished bowel sounds, new fistula with discharge at the surgical site) Extremities: No Clubbing, Other (Edema) Skin: No Rashes Neuro: Normal Speech Psych/Mental Status: Mood NL Results Lab Laboratory Tests 11/29/18 05:30 A/P-Cardiology Admission Diagnosis Acute respiratory failure Non-ST elevation myocardial infarction, type II AR Hypertension Hyperlipidemia Assessment/Plan Status post respiratory failure, extubated, using C Pap on and off, managed by medical team New enterocutaneous fistula postoperatively, 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 Olvera Acute non-ST elevation myocardial infarction, poor R-wave progression in the anterior leads, probably type II myocardial infarctions due to respiratory failure, underlying coronary artery disease cannot be entirely excluded. Echocardiogram showed normal LV function. Continue with conservative management at this time, continue to monitor. Troponin level is trending down, no acute EKG changes suggestive of active ischemia, conservative management at this time. Continue to monitor Hypertension, mildly elevated, continue to monitor Hyperlipidemia maintained on Lipitor on hold at this point COPD, oxygen dependent, progressed into respiratory failure after abdominal surgery, intubated. Managed by primary care team Morbid obesity Diabetes mellitus, followed and managed by primary care physician History of tobaccoism Clinical Quality Measures DVT/VTE Risk/Contraindication: Risk Factor Score Per Nursin RFS Level Per Nursing on Admit: 4+=Very High AUSTEN MARTÍNEZ MD Nov 29, 2018 08:05
[2018-11-29] MEDS: meTOprolol TARTRATE 25 MG (LOPRESSOR) TABLET PO SCH ×3 (08:37→20:29)
[2018-11-29] MEDS: LINAGLIPTIN (TRADJENTA) 5 MG TABLET PO SCH (08:37)
[2018-11-29] MEDS: DULoxetine 30 MG (CYMBALTA) CAP PO SCH (08:37)
[2018-11-29] MEDS: VITAMIN D3 5,000 UNITS (CHOLECALCIFEROL ) CAPSULE PO SCH (08:37)
[2018-11-29] MEDS: DOCUSATE SODIUM 100 MG (COLACE) CAP PO SCH ×2 (08:37→20:21)
[2018-11-29] MEDS: MAGNESIUM OXIDE (MAG-OX)400 MG TAB PO SCH (08:37)
[2018-11-29] MEDS: buPROPion SR 150 MG (WELLBUTRIN SR) TAB PO SCH (08:38)
[2018-11-29] MEDS: amLODIPine 10 MG (NORVASC) TAB PO SCH (08:38)
[2018-11-29] MEDS: lisINopril 20 MG (PRINIVIL) TABLET PO SCH (08:38)
[2018-11-29] MEDS: OMEGA 3 (FISH OIL) 1000 MG CAP PO SCH (08:38)
[2018-11-29] MEDS: FLUCONAZOLE 200 MG/100 ML 50 ML, EMPTY IV BAG (PVC) 1 EA IV SCH ×2 (08:39)
[2018-11-29] MEDS: ENOXAPARIN 60 MG/0.6 ML (LOVENOX) SYR SC SCH ×2 (08:39→20:21)
[2018-11-29 11:38] VITALS: BP 113/56
--- NOTE | 2018-11-29 13:13 | Progress Note ---
Subjective Date Seen by a Provider: Nov 29, 2018 Time Seen by a Provider: 13:00 Subjective/Events-last exam doing well. no new issues. continues to work with PT/OT. small bowel fistula high output. no fever/chills. Objective Exam Vital Signs Date Time Temp Pulse Resp B/P (MAP) Pulse Ox O2 Delivery O2 Flow Rate FiO2 11/29/18 12:25 75 11/29/18 11:38 97.3 70 17 113/56 (75) 95 Nasal Cannula 5.00 11/29/18 10:15 93 Nasal Cannula 3.00 11/29/18 08:00 97.2 69 18 114/59 (77) 94 OxyMask 6.00 11/29/18 08:00 94 Nasal Cannula 5.00 11/29/18 07:00 71 11/29/18 06:18 95 Nasal Cannula 5.00 11/29/18 04:05 97.4 76 20 151/80 (103) 97 High Flow N/C 8.00 11/29/18 02:00 97 High Flow N/C 8.00 11/29/18 01:00 78 11/29/18 00:30 97.8 78 20 158/81 (106) 97 High Flow N/C 8.00 11/28/18 21:23 84 Room Air 11/28/18 20:40 High Flow NC 8.00 11/28/18 20:16 97.0 70 20 138/89 (105) 96 High Flow N/C 8.00 11/28/18 19:00 73 11/28/18 15:20 97.3 72 20 145/71 (95) 97 High Flow N/C 8.00 11/28/18 14:13 93 High Flow N/C 8.00 I & O 11/29/18 07:00 Intake Total 3344 ml Output Total 3420 ml Balance -76 ml Capillary Refill : Less Than 3 SecondsLess Than 3 Seconds General Appearance: No Apparent Distress HEENT: PERRL/EOMI Neck: Full Range of Motion Respiratory: Rhonci Cardiovascular: Regular Rate, Rhythm Gastrointestinal: soft, other (minimal redness/erythema, high output fistula) Extremity: Normal Capillary Refill Neurologic/Psychiatric: Alert, Oriented x3 Skin: Normal Color Lymphatic: No Adenopathy Results Lab Laboratory Tests 11/28/18 15:21: Glucometer 162H 11/28/18 18:16: Glucometer 148H 11/29/18 00:44: Glucometer 138H 11/29/18 05:27: Glucometer 144H 11/29/18 05:30: White Blood Count 17.2H, Red Blood Count 4.02L, Hemoglobin 11.3L, Hematocrit 37, Mean Corpuscular Volume 92, Mean Corpuscular Hemoglobin 28, Mean Corpuscular Hemoglobin Concent 31L, Red Cell Distribution Width 15.0H, Platelet Count 326, Mean Platelet Volume 9.8, Neutrophils (%) (Auto) 77H, Lymphocytes (%) (Auto) 11L , Monocytes (%) (Auto) 8, Eosinophils (%) (Auto) 3, Basophils (%) (Auto) 1, Neutrophils # (Auto) 13.2H, Lymphocytes # (Auto) 1.9, Monocytes # (Auto) 1.3H, Eosinophils # (Auto) 0.6H, Basophils # (Auto) 0.1, Sodium Level 139, Potassium Level 4.7, Chloride Level 105, Carbon Dioxide Level 25, Anion Gap 9, Blood Urea Nitrogen 24H, Creatinine 0.78, Estimat Glomerular Filtration Rate > 60, BUN/Creatinine Ratio 31, Glucose Level 154H, Calcium Level 8.5, Phosphorus Level 3.6, Magnesium Level 2.1, Triglycerides Level 236H 11/29/18 11:28: Glucometer 193H Microbiology 11/21/18 Blood Culture - Final, Complete No growth 11/20/18 Gram Stain - Final, Complete 11/20/18 Sputum Culture - Final, Complete Usual upper respiratory chandana 11/20/18 Urine Culture - Final, Complete NO GROWTH Assessment/Plan Assessment/Plan Assess & Plan/Chief Complaint s/p open repair recurrent ventral abd incisional hernia with mesh with multiple medical comorbidities including diabetes, copd and morbid obesity. exacerbation copd and non s-t elevation [place]. cont abx for high risk pneumonia/wound infxn. enterocutaneous fistula. will start TPN and octreotide gtt. clear liquids. ok for surgical floor. small skin opening for fistula due to long tract and subcutaneous adipose tissue. will open wound and debride repeat cbc later today. will add diflucan to cover fungal. cont PT/OT. may need IRU vs. ECF Clinical Quality Measures DVT/VTE Risk/Contraindication: Risk Factor Score Per Nursin RFS Level Per Nursing on Admit: 4+=Very High WENDI ELIZABETH MD Nov 29, 2018 13:13
--- NOTE | 2018-11-29 14:47 | Physical Therapy Daily Note ---
PT Daily Note-Current Subjective Pt agreeable to PT session Pain Numeric Pain Scale: 0-No Pain Comment: discomfort abdominal region with transitions Appearance Pt in bed awake and alert upon arrival. At end of session, pt supine in bed, HOB elevated, call light, phone and bedside table within reach Mental Status Patient Orientation: Person, Place, Time, Eyes Open, Situation Attachments: Central Line, Colostomy/Ileostomy, Oxygen, Gonzalez Catheter, IV Transfers Therapy Code Descriptions/Definitions Functional [place] Measure: 0=Not Assessed/NA 4=Minimal Assistance 1=Total Assistance 5=Supervision or Setup 2=Maximal Assistance 6=Modified [place] 3=Moderate Assistance 7=Complete [place] Therapy Quality Codes: 6 Independent with activity with or without an assistive device 5 Patient requires set up or clean up by helper. Patient completes activity by themselves 4 Supervision or touching assist (CGA). Felicity provide cues , steadying assist 3 The helper provides less than half the effort to complete the activity 2 The helper provides more than half the effort to complete the activity 1 Dependent. The helper does all the effort to complete an activity 7 Patient refused to complete or attempt activity 9 The patient did not perform the activity before the current illness or injury 88 Not attempted due to Medical conditions or safety concerns Transfers (B, C, W/C) (FIM): 4 Scootin Rollin Supine to/from Sit: 4 Sit to/from Stand: 5 physical assist supine to sit, HOB elevated, using hand to pull up, pt able to maneuver LE's. CGA sit to and from stand with several attempts, bed height elevated. Bed lowered and pt able to scoot buttocks back onto bed. Sit to supine with bed in flat position, physical A required to lift LE's onto bed, pt then able to "walk" them over to middle of bed to position self. Pt attempted to scoot self up to HOB but unable until bed was tilted, pt then able to perform without outside physical A. Weight Bearing Right Lower Extremity: Right Full Weight Bearing Left Lower Extremity: Left Full Weight Bearing Exercises Seated Reps: 5 (5 min sitting EOB, sitting balance, wt shift, reaching) Standing Reps: 5 (Pt in standing x5 minutes, attempting to lift feet off floor but unable. Performed wt shifting.) Treatments bed mobility, transfers, safety, education, functional mobility, activity tolerance, strengthening, standing balance in FWW, sitting balance at EOB Assessment Current Status: Good Progress increased time required to perform activities. Pt requiring encouragement to continue trying. Pt did not feel she could move her feet enough to get to chair this afternoon but want to try to sit up in chair tomorrow. PT Brim Rounder Goals Brim Rounder Goals PT Care Home Goals Time Frame: Dec 10, 2018 Transfers (B,C,W/C) (FIM): 4 Gait (FIM): 1 Gait distance (FIM): 1=up to 49 ft Distance: 25' Gait Level of Assist: 4 Gait Assistive Device: FWW PT Plan Treatment/Plan Treatment Plan: Continue Plan of Care Treatment Plan: Bed Mobility, Education, Functional Activity Juan F, Functional Strength, Gait, Safety, Therapeutic Exercise, Transfers Treatment Duration: Dec 10, 2018 Frequency: 6 times per week Estimated Hrs Per Day: .25 hour per day Patient and/or Family Agrees t: Yes Safety Risks/Education Patient Education: Transfer Techniques, Correct Positioning, Safety Issues Teaching Recipient: Patient Teaching Methods: Demonstration, Discussion Response to Teaching: Verbalize Understanding, Return Demonstration Time/GCodes Time In: 1405 Time Out: 1438 Total Billed Treatment Time: 33 Total Billed Treatment 1 visit, EX x10 min, FA x23 min GLADIS SINCLAIR SUSTAIN ENGINEER Nov 29, 2018 14:47
[2018-11-29 16:00] VITALS: BP 93/51
[2018-11-29] MEDS: POTASSIUM CHLORIDE IV SCH ×11 (16:34)
[2018-11-29] MEDS: [UNRECOGNIZED DRUG - OTHER] IV SCH ×11 (16:34)
[2018-11-29] MEDS: SODIUM CHLORIDE IV SCH ×11 (16:34)
--- NOTE | 2018-11-29 16:41 | Progress Note ---
Subjective Subjective/Events-last exam Afebrile. Is hopeful to go to rehab soon. Denies concerns, states she is feeling fairly well. Objective Exam Last Set of Vital Signs Vital Signs Date Time Temp Pulse Resp B/P (MAP) Pulse Ox O2 Delivery O2 Flow Rate FiO2 11/29/18 14:46 91 Nasal Cannula 3.00 11/29/18 12:25 75 11/29/18 11:38 97.3 17 113/56 (75) 11/27/18 08:00 45 Capillary Refill : Less Than 3 SecondsLess Than 3 Seconds I&O Intake and Output 11/29/18 00:00 Intake Total 3244 ml Output Total 3400 ml Balance -156 ml Intake Oral 1050 ml IV Total 2194 ml Output Urine Total 3150 ml Stool Total 50 ml Other 200 ml General: Alert, No Acute Distress Lungs: Clear to Auscultation, Normal Air Movement Heart: Regular Rate, No Murmurs Psych/Mental Status: Mental Status NL Results/Procedures Lab Laboratory Tests 11/28/18 18:16: Glucometer 148H 11/29/18 00:44: Glucometer 138H 11/29/18 05:27: Glucometer 144H 11/29/18 05:30: White Blood Count 17.2H, Red Blood Count 4.02L, Hemoglobin 11.3L, Hematocrit 37, Mean Corpuscular Volume 92, Mean Corpuscular Hemoglobin 28, Mean Corpuscular Hemoglobin Concent 31L, Red Cell Distribution Width 15.0H, Platelet Count 326, Mean Platelet Volume 9.8, Neutrophils (%) (Auto) 77H, Lymphocytes (%) (Auto) 11L , Monocytes (%) (Auto) 8, Eosinophils (%) (Auto) 3, Basophils (%) (Auto) 1, Neutrophils # (Auto) 13.2H, Lymphocytes # (Auto) 1.9, Monocytes # (Auto) 1.3H, Eosinophils # (Auto) 0.6H, Basophils # (Auto) 0.1, Sodium Level 139, Potassium Level 4.7, Chloride Level 105, Carbon Dioxide Level 25, Anion Gap 9, Blood Urea Nitrogen 24H, Creatinine 0.78, Estimat Glomerular Filtration Rate > 60, BUN/Creatinine Ratio 31, Glucose Level 154H, Calcium Level 8.5, Phosphorus Level 3.6, Magnesium Level 2.1, Triglycerides Level 236H 11/29/18 11:28: Glucometer 193H 11/29/18 16:24: Glucometer 114H Microbiology 11/21/18 Blood Culture - Final, Complete No growth 11/20/18 Gram Stain - Final, Complete 11/20/18 Sputum Culture - Final, Complete Usual upper respiratory chandana 11/20/18 Urine Culture - Final, Complete NO GROWTH Assessment/Plan Assessment/Plan (1) Enterocutaneous fistula Status: Acute Assessment & Plan: Management per Dr. Olvera. (2) On total parenteral nutrition (TPN) Status: Acute (3) Diabetes mellitus, type 2 Status: Chronic Assessment & Plan: Glucose at goal. Sliding scale insulin. Levemir 12 units BID. (4) COPD (chronic obstructive pulmonary disease) Status: Chronic Assessment & Plan: Pulm consulted, appreciate recommendations. Qualifiers: Qualified Codes: J44.9 - Chronic obstructive pulmonary disease, unspecified Clinical Quality Measures DVT/VTE Risk/Contraindication: Risk Factor Score Per Nursin RFS Level Per Nursing on Admit: 4+=Very High DAVE VENTURA MD Nov 29, 2018 16:41
[2018-11-29 20:00] VITALS: BP 134/72
[2018-11-29] MEDS: ATORVASTATIN 40 MG (LIPITOR) TABLET PO SCH (20:21)
[2018-11-29] MEDS ORDERED: NS (IVPB) 50 ML ONE (23:32)
[2018-11-30] VITALS: BP 130/94
[2018-11-30] MEDS: inSUlin ASPART (NovoLOG) 1 UNIT/0.01 ML (CHARGE PER UNIT) SC SCH ×4 (00:08→17:59)
[2018-11-30] MEDS: CLINDAMYCIN 600 MG/50 ML IVPB 50 ML IV SCH ×3 (00:08→16:46)
--- NOTE | 2018-11-30 00:35 | NUR ---
Fistula dressing leaking. removed old dressing cleaned with bath wipe, applied skin barrier wipe. applied ostomy appliance and pouch system. no complaints
[2018-11-30] MEDS: RT-ALBUTEROL/IPRATROPIUM 3 ML (DUONEB) VIAL IH SCH ×6 (02:15→22:09)
[2018-11-30 04:00] VITALS: BP 133/72
[2018-11-30 05:36] LABS: BASOPHILS # (AUTO) 0.1 10^3/uL (0.0-0.1); BASOPHILS % (AUTO) 1 % (0-10); EOSINOPHILS # (AUTO) 0.4 10^3/uL (0.0-0.3); EOSINOPHILS % (AUTO) 3 % (0-10); HEMATOCRIT 39 % (35-52); HEMOGLOBIN 12.1 G/DL (11.5-16.0); LYMPHOCYTES # (AUTO) 1.7 X 10^3 (1.0-4.0); LYMPHOCYTES % (AUTO) 11 % (12-44); MEAN CORPUSCULAR HEMOGLOBIN 28 PG (25-34); MEAN CORPUSCULAR HGB CONC 31 G/DL (32-36); MEAN CORPUSCULAR VOLUME 91 FL (80-99); MEAN PLATELET VOLUME 9.6 FL (7.4-10.4); MONOCYTES # (AUTO) 1.6 X 10^3 (0.0-1.0); MONOCYTES % (AUTO) 10 % (0-12); NEUTROPHILS # (AUTO) 11.9 X 10^3 (1.8-7.8); NEUTROPHILS % (AUTO) 76 % (42-75); PLATELET COUNT 355 10^3/uL (130-400); RED CELL DISTRIBUTION WIDTH 15.5 % (10.0-14.5); WHITE BLOOD COUNT 15.7 10^3/uL (4.3-11.0)
[2018-11-30 06:05] LABS: BUN/CREATININE RATIO 28; CALCIUM 8.7 MG/DL (8.5-10.1); CARBON DIOXIDE 23 MMOL/L (21-32); CHLORIDE 104 MMOL/L (98-107); CREATININE SERUM 0.82 MG/DL (0.60-1.30); GFR ESTIMATED > 60; GLUCOSE 98 MG/DL (70-105); MAGNESIUM 1.7 MG/DL (1.6-2.4); PHOSPHORUS 3.9 MG/DL (2.3-4.7); POTASSIUM 4.6 MMOL/L (3.6-5.0); SODIUM 137 MMOL/L (135-145)
[2018-11-30] MEDS: RT-ADVAIR HFA 115/21 MCG PER PUFF IH SCH ×2 (06:49→18:14)
[2018-11-30] MEDS: OCTREOTIDE INJECTION 500 MCG in NS (IVPB) 97.5 ML IV SCH ×2 (07:40→17:28)
[2018-11-30 08:00] VITALS: BP 119/55
--- NOTE | 2018-11-30 08:34 | Cardiology Progress Note ---
Subjective Date Seen by Provider: Nov 30, 2018 Time Seen by Provider: 08:32 Subjective/Events-last exam Patient is sitting up in bed, complaining of some increased dyspnea this morning. Denies any chest pain. Review of Systems General: No Chills, No Night Sweats, No Fatigue, No Malaise, No Appetite, No Other HEENT: No Head Aches, No Visual Changes, No Eye Pain, No Ear Pain, No Dysphasia, No Sinus Congestion, No Post Nasal Drip, No Sore Throat, No Other Pulmonary: Dyspnea, Cough; No Pleuritic Chest Pain, No Other Cardiovascular: No: Chest Pain, Palpitations, Orthopnea, Paroxysmal Noc. Dyspnea, Edema, Lt Headedness, Other Objective-Cardiology Exam Last Set of Vital Signs Vital Signs 11/27/18 11/30/18 11/30/18 11/30/18 08:00 04:00 07:00 10:04 Temp 97.3 Pulse 72 Resp 24 B/P (MAP) 133/72 (92) Pulse Ox 93 O2 Delivery Nasal Cannula O2 Flow Rate 2.00 FiO2 45 Capillary Refill : Less Than 3 SecondsLess Than 3 Seconds I&O Intake and Output 11/30/18 00:00 Intake Total 1755 ml Output Total 3795 ml Balance -2040 ml Intake Oral 1435 ml IV Total 320 ml Output Urine Total 3225 ml Stool Total 500 ml Other 70 ml General: Alert, No Acute Distress HEENT: Atraumatic Neck: Supple Lungs: Other (bilateral expiratory wheezing) Heart: Regular Rate, No Murmurs Abdomen: Other (diminished bowel sounds, new fistula with discharge at the surgical site) Extremities: No Clubbing, Other (Edema) Skin: No Rashes Neuro: Normal Speech Psych/Mental Status: Mental Status NL Results Lab Laboratory Tests 11/30/18 05:10 11/30/18 05:18 A/P-Cardiology Admission Diagnosis Acute respiratory failure Non-ST elevation myocardial infarction, type II [place] Hypertension Hyperlipidemia Assessment/Plan Status post respiratory failure, extubated, using C Pap on and off, having worsening dyspnea today. I will give additional dose of Lasix and bronchodilator and evaluate tolerance and response New enterocutaneous fistula postoperatively, 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 Olvera Acute non-ST elevation myocardial infarction, poor R-wave progression in the anterior leads, probably type II myocardial infarctions due to respiratory failure, underlying coronary artery disease cannot be entirely excluded. Echocardiogram showed normal LV function. Continue with conservative management at this time, continue to monitor. Troponin level is trending down, no acute EKG changes suggestive of active ischemia, conservative management at this time. Continue to monitor Hypertension, better controlled today. Continue to monitor Hyperlipidemia maintained on Lipitor, on hold at this point COPD, oxygen dependent, progressed into respiratory failure after abdominal surgery, currently extubated, complaining of some increased dyspnea this morning. Morbid obesity Diabetes mellitus, followed and managed by primary care physician History of tobaccoism Clinical Quality Measures DVT/VTE Risk/Contraindication: Risk Factor Score Per Nursin RFS Level Per Nursing on Admit: 4+=Very High Supervisory-Addendum Brief Supervisory Addendum Participated in pt care: history, MDM, physical Personally performed: exam, history, MDM Care discussed with: ASHLEIGH Notes: patient was seen and evaluated, having increasing dyspnea. On examination she had bilateral rhonchi and wheezing. I will give additional dose of Lasix, additional doses of bronchodilator and evaluate tolerance and response ESAU WILCOX Nov 30, 2018 08:33 AUSTEN MARTÍNEZ MD Nov 30, 2018 10:48
--- NOTE | 2018-11-30 08:52 | Physical Therapy Daily Note ---
PT Daily Note-Current Subjective Pt agreeable to PT session. Pain Numeric Pain Scale: 0-No Pain Appearance Pt in bed with head elevated upon arrival. At end of sesssion, pt L sidelying, call light, phone and bedside table within reach. Mental Status Patient Orientation: Person, Place, Time, Eyes Open, Situation Attachments: Colostomy/Ileostomy, Oxygen, Drains, Gonzalez Catheter, IV Transfers Therapy Code Descriptions/Definitions Functional [place] Measure: 0=Not Assessed/NA 4=Minimal Assistance 1=Total Assistance 5=Supervision or Setup 2=Maximal Assistance 6=Modified [place] 3=Moderate Assistance 7=Complete [place] Therapy Quality Codes: 6 Independent with activity with or without an assistive device 5 Patient requires set up or clean up by helper. Patient completes activity by themselves 4 Supervision or touching assist (CGA). [place] provide cues , steadying assist 3 The helper provides less than half the effort to complete the activity 2 The helper provides more than half the effort to complete the activity 1 Dependent. The helper does all the effort to complete an activity 7 Patient refused to complete or attempt activity 9 The patient did not perform the activity before the current illness or injury 88 Not attempted due to Medical conditions or safety concerns Transfers (B, C, W/C) (FIM): 4 Scootin (bed declined and pt able to maneuver self up in bed) Rollin (Min A to roll all the way onto side) Supine to/from Sit: 4 (min A supine to sit, HOB elevated, hand held pull. Min A sit to supine with LE's) Weight Bearing Right Lower Extremity: Right Full Weight Bearing Left Lower Extremity: Left Full Weight Bearing Exercises Supine Ex: Rolling, Lower trunk rotation, Heel Slides, Scooting Seated Reps: 1 (sitting balance EOB x30 min) Treatments bed mobility, supine to from sit transfers, sitting balance EOB, strengthening, activity tolerance, functional mobility. Noted blood on pillows under pt, notified nsg, pt sat EOB and began bleeding more, nurse responded, noticed cap to port was missing and this is where pt was bleeding from, pt sat EOB while being cleaned up and port fixed, became very SOA and attempted lying down but SOA increased more, sat back up on EOB. PA arrived and assessed pt during PT session. Pt able to lay back in bed with HOB elevated and SOA slightly improved, wound care arrived at end of session. Assessment Pt unable to perform standing this session due to increased SOA. PT Recreational Leader Goals Recreational Leader Goals PT Detention Goals Time Frame: Dec 10, 2018 Transfers (B,C,W/C) (FIM): 4 Gait (FIM): 1 Gait distance (FIM): 1=up to 49 ft Distance: 25' Gait Level of Assist: 4 Gait Assistive Device: FWW PT Plan Treatment/Plan Treatment Plan: Continue Plan of Care Treatment Plan: Bed Mobility, Education, Functional Activity Juan F, Functional Strength, Gait, Safety, Therapeutic Exercise, Transfers Treatment Duration: Dec 10, 2018 Frequency: 6 times per week Estimated Hrs Per Day: .25 hour per day Patient and/or Family Agrees t: Yes Safety Risks/Education Patient Education: Transfer Techniques, Correct Positioning, Safety Issues Teaching Recipient: Patient Teaching Methods: Discussion Response to Teaching: Verbalize Understanding Time/GCodes Time In: 805 Time Out: 843 Total Billed Treatment Time: 38 Total Billed Treatment 1 visit, FA x30 min, EX x8 min GLADIS SINCLAIR PTA Nov 30, 2018 08:52
[2018-11-30] MEDS: VITAMIN D3 5,000 UNITS (CHOLECALCIFEROL ) CAPSULE PO SCH (09:25)
[2018-11-30] MEDS: PIPERACILLIN/TAZOBACTAM (BULK) 4.5 GM in NS (IVPB) 100 ML IV SCH ×2 (09:25→16:46)
[2018-11-30] MEDS: OMEGA 3 (FISH OIL) 1000 MG CAP PO SCH (09:25)
[2018-11-30] MEDS: lisINopril 20 MG (PRINIVIL) TABLET PO SCH (09:25)
[2018-11-30] MEDS: ENOXAPARIN 60 MG/0.6 ML (LOVENOX) SYR SC SCH ×2 (09:25→21:27)
[2018-11-30] MEDS: DULoxetine 30 MG (CYMBALTA) CAP PO SCH (09:26)
[2018-11-30] MEDS: meTOprolol TARTRATE 25 MG (LOPRESSOR) TABLET PO SCH ×3 (09:26→21:27)
[2018-11-30] MEDS: MAGNESIUM OXIDE (MAG-OX)400 MG TAB PO SCH (09:26)
[2018-11-30] MEDS: amLODIPine 10 MG (NORVASC) TAB PO SCH (09:26)
[2018-11-30] MEDS: LINAGLIPTIN (TRADJENTA) 5 MG TABLET PO SCH (09:26)
[2018-11-30] MEDS: DOCUSATE SODIUM 100 MG (COLACE) CAP PO SCH ×2 (09:26→21:27)
[2018-11-30] MEDS: buPROPion SR 150 MG (WELLBUTRIN SR) TAB PO SCH (09:26)
[2018-11-30] MEDS ORDERED: RT-ALBUTEROL/IPRATROPIUM 3 ML (DUONEB) VIAL INH PRN (09:30)
--- NOTE | 2018-11-30 10:00 | NUR ---
IRF Evaluation Order received to evaluate patient for the ARU. Chart review complete and findings discussed with Dr. Conrad - patient accepted. Prior authorization process initiated with [facility]. Will continue to follow. Thank you for this referral.
[2018-11-30] MEDS: FLUCONAZOLE 200 MG/100 ML 50 ML, EMPTY IV BAG (PVC) 1 EA IV SCH ×2 (10:15)
[2018-11-30] MEDS ORDERED: FUROSEMIDE 40 MG/4 ML INJ (LASIX) IVP NR (11:00)
--- NOTE | 2018-11-30 11:48 | Progress Note ---
Subjective Date Seen by a Provider: Nov 30, 2018 Time Seen by a Provider: 11:45 Subjective/Events-last exam doing ok. no new complaints. Respiratory status slowly improving to baseline. appears total ostomy output yesterday less than 500cc. Objective Exam Vital Signs Date Time Temp Pulse Resp B/P (MAP) Pulse Ox O2 Delivery O2 Flow Rate FiO2 11/30/18 10:04 93 Nasal Cannula 2.00 11/30/18 08:50 82 Nasal Cannula 2.00 11/30/18 07:00 72 11/30/18 06:49 91 Nasal Cannula 2.00 11/30/18 04:00 97.3 72 24 133/72 (92) 91 Nasal Cannula 5.00 11/30/18 02:15 92 Nasal Cannula 3.00 11/30/18 01:00 70 11/30/18 00:00 96.8 75 20 130/94 (106) 93 Nasal Cannula 5.00 11/29/18 21:28 93 Nasal Cannula 3.00 11/29/18 20:00 97.5 79 24 134/72 (92) 93 Nasal Cannula 3.00 11/29/18 20:00 High Flow N/C 3.00 11/29/18 19:00 83 11/29/18 18:40 93 Nasal Cannula 3.00 11/29/18 16:00 98.9 69 19 93/51 (65) 94 Nasal Cannula 5.00 11/29/18 14:46 91 Nasal Cannula 3.00 11/29/18 12:25 75 I & O 11/30/18 07:00 Intake Total 1780 ml Output Total 3510 ml Balance -1730 ml Capillary Refill : Less Than 3 SecondsLess Than 3 Seconds General Appearance: No Apparent Distress HEENT: PERRL/EOMI Neck: Full Range of Motion Respiratory: Rhonci Cardiovascular: Regular Rate, Rhythm Gastrointestinal: normal bowel sounds, soft Extremity: Normal Capillary Refill Neurologic/Psychiatric: Alert, Oriented x3 Skin: Normal Color Lymphatic: No Adenopathy Results Lab Laboratory Tests 11/29/18 16:24: Glucometer 114H 11/29/18 18:08: Glucometer 181H 11/29/18 23:55: Glucometer 207H 11/30/18 05:10: White Blood Count 15.7H, Red Blood Count 4.31L, Hemoglobin 12.1, Hematocrit 39, Mean Corpuscular Volume 91, Mean Corpuscular Hemoglobin 28, Mean Corpuscular Hemoglobin Concent 31L, Red Cell Distribution Width 15.5H, Platelet Count 355, Mean Platelet Volume 9.6, Neutrophils (%) (Auto) 76H, Lymphocytes (%) (Auto) 11L , Monocytes (%) (Auto) 10, Eosinophils (%) (Auto) 3, Basophils (%) (Auto) 1, Neutrophils # (Auto) 11.9H, Lymphocytes # (Auto) 1.7, Monocytes # (Auto) 1.6H, Eosinophils # (Auto) 0.4H, Basophils # (Auto) 0.1 11/30/18 05:18: Sodium Level 137, Potassium Level 4.6, Chloride Level 104, Carbon Dioxide Level 23, Anion Gap 10, Blood Urea Nitrogen 23H, Creatinine 0.82, Estimat Glomerular Filtration Rate > 60, BUN/Creatinine Ratio 28, Glucose Level 98, Calcium Level 8.7, Phosphorus Level 3.9, Magnesium Level 1.7 11/30/18 05:36: Glucometer 105 Microbiology 11/21/18 Blood Culture - Final, Complete No growth 11/20/18 Gram Stain - Final, Complete 11/20/18 Sputum Culture - Final, Complete Usual upper respiratory chandana 11/20/18 Urine Culture - Final, Complete NO GROWTH Assessment/Plan Assessment/Plan Assess & Plan/Chief Complaint s/p open repair recurrent ventral abd incisional hernia with mesh with multiple medical comorbidities including diabetes, copd and morbid obesity. exacerbation copd and non s-t elevation CA. cont abx for high risk pneumonia/wound infxn. enterocutaneous fistula. will start TPN and octreotide gtt. clear liquids. ok for surgical floor. small skin opening for fistula due to long tract and subcutaneous adipose tissue. will open wound and debride repeat cbc later today. will add diflucan to cover fungal. cont PT/OT. may need IRU vs. ECF consult inpatient woundcare/nursing Clinical Quality Measures DVT/VTE Risk/Contraindication: Risk Factor Score Per Nursin RFS Level Per Nursing on Admit: 4+=Very High WENDI ELIZABETH MD Nov 30, 2018 11:48
--- NOTE | 2018-11-30 11:49 | Occupational Ther Daily Note ---
OT Current Status-Daily Note Subjective Pt agrees to therapy. Nrsg and sister present in room. Pt agrees to therapy. No c/o pain. Pt does state that she gets anxious when getting up due to fear of falling. Mental Status/Objective Patient Orientation: Person, Place, Time, Situation Therapy Code Descriptions/Definitions Functional [place] Measure: 0=Not Assessed/NA 4=Minimal Assistance 1=Total Assistance 5=Supervision or Setup 2=Maximal Assistance 6=Modified [place] 3=Moderate Assistance 7=Complete [place] Other Treatment Pt went from supine to sitting with assist only to have pt pull on LIGHT's UE while rolling to side to push up to sitting. Pt able to stand with FWW and assist x2 for stability and position of FWW while side stepping closer to head of bed. Pt then was able to go from EOB to supine with close SBA. Sitting EOB, pt demonstrated UE AROM to reach top of head. After therapy, pt lying in bed with call light/phone in reach. All needs met in room. OT Short Term Goals Short Term Goals 1=Demonstrate adherence to instructed precautions during ADL tasks. 2=Patient will verbalize/demonstrate understanding of assistive devices/modifications for ADL. 3=Patient will improve strength/tolerance for activity to enable patient to perform ADL's. OT Manager Social Services Goals Fdc Goals Time Frame: Dec 09, 2018 Eating (FIM): 5 Grooming(FIM): 5 Upper Body Dressing(FIM): 4 Toileting(FIM): 4 Toilet/Commode Transfer(FIM): 4 Additional Goals: 1-Demonstrate ADL Tasks, 2-Verbalize Understanding, 3-ImproveStrength/Juan F 1=Demonstrate adherence to instructed precautions during ADL tasks. 2=Patient will verbalize/demonstrate understanding of assistive devices/modifications for ADL. 3=Patient will improve strength/tolerance for activity to enable patient to perform ADL's. OT Education/Plan Problem List/Assessment Assessment: Decreased Activ Tolerance, Decreased UE Strength, Impaired Coordination, Impaired Funct Balance, Impaired Self-Care Skills Pt demonstrates decreased activity tolerance, mobility, strength, and ADL functioning. Pt to benefit from skilled OT intervention for ADL training, transfers, strengthening, and safety education to increase level of functional independence and allow safe discharge plan. Discharge Recommendations Plan/Recommendations: Continue POC Treatment Plan/Plan of Care Patient would benefit from OT for education, treatment and training to promote independence in ADL's, mobility, safety and/or upper extremity function for ADL's. Plan of Care: ADL Retraining, Functional Mobility, UE Funct Exercise/Act Treatment Duration: Dec 09, 2018 Frequency: 5 times per week Estimated Hrs Per Day: .25 hour per day Rehab Potential: Fair Time/GCodes Start Time: 11:15 Stop Time: 11:45 Total Time Billed (hr/min): 30 Billed Treatment Time 1 visit-FA 2 (30 min) CEDRIC DURANT Nov 30, 2018 11:49
[2018-11-30 12:00] VITALS: BP 130/68
--- NOTE | 2018-11-30 12:21 | Pulmonary Progress Note ---
Subjective Date Seen by a Provider: Nov 29, 2018 (Late note) Time Seen by a Provider: 12:20 Subjective/Events-last exam Pt appears to be doing better. Sepsis Event Evaluation Height, Weight, BMI Height: 5'3.00" Weight: 294lbs. 8.0oz. 133.882299yz; 52.3 BMI Method:Stated Exam Exam Vital Signs Date Time Temp Pulse Resp B/P (MAP) Pulse Ox O2 Delivery O2 Flow Rate FiO2 11/30/18 10:04 93 Nasal Cannula 2.00 11/30/18 08:50 82 Nasal Cannula 2.00 11/30/18 08:00 96.8 74 18 119/55 (76) 93 Nasal Cannula 4.00 11/30/18 07:00 72 11/30/18 06:49 91 Nasal Cannula 2.00 11/30/18 04:00 97.3 72 24 133/72 (92) 91 Nasal Cannula 5.00 11/30/18 02:15 92 Nasal Cannula 3.00 11/30/18 01:00 70 11/30/18 00:00 96.8 75 20 130/94 (106) 93 Nasal Cannula 5.00 11/29/18 21:28 93 Nasal Cannula 3.00 11/29/18 20:00 97.5 79 24 134/72 (92) 93 Nasal Cannula 3.00 11/29/18 20:00 High Flow N/C 3.00 11/29/18 19:00 83 11/29/18 18:40 93 Nasal Cannula 3.00 11/29/18 16:00 98.9 69 19 93/51 (65) 94 Nasal Cannula 5.00 11/29/18 14:46 91 Nasal Cannula 3.00 11/29/18 12:25 75 I & O 11/30/18 07:00 Intake Total 1780 ml Output Total 3510 ml Balance -1730 ml Height & Weight Height: 5'3.00" Weight: 294lbs. 8.0oz. 133.598975gg; 52.3 BMI Method:Stated General Appearance: No Apparent Distress HEENT: PERRL/EOMI Neck: Full Range of Motion Respiratory: Decreased Breath Sounds, Rhonci Cardiovascular: Regular Rate, Rhythm Capillary Refill: Less Than 3 Seconds Gastrointestinal: normal bowel sounds, soft, other (no new redness/erythema skin, high output fistula) Extremity: Normal Capillary Refill Neurologic/Psychiatric: Alert, Oriented x3 Skin: Normal Color Lymphatic: No Adenopathy Results Lab Laboratory Tests 11/29/18 05:30 11/30/18 05:10 11/30/18 05:18 Assessment/Plan Assessment/Plan Acute on chronic respiratory failure -SVNS - -Improving Hyperglycemia Morbid obesity with OHS DM II S/p Hernia repair surgery -Dr. Olvera following . Hx of severe COPD oxygen dependent Acute on chronic renal failure- improved -Monitor Elevated troponin -cardiology following MERCEDES GARNICA DO Nov 30, 2018 12:21
--- NOTE | 2018-11-30 12:26 | Pulmonary Progress Note ---
Subjective Time Seen by a Provider: 12:25 Subjective/Events-last exam No complications noted. Sepsis Event Evaluation Height, Weight, BMI Height: 5'3.00" Weight: 294lbs. 8.0oz. 133.463263pe; 52.3 BMI Method:Stated Exam Exam Vital Signs Date Time Temp Pulse Resp B/P (MAP) Pulse Ox O2 Delivery O2 Flow Rate FiO2 11/30/18 10:04 93 Nasal Cannula 2.00 11/30/18 08:50 82 Nasal Cannula 2.00 11/30/18 08:00 96.8 74 18 119/55 (76) 93 Nasal Cannula 4.00 11/30/18 07:00 72 11/30/18 06:49 91 Nasal Cannula 2.00 11/30/18 04:00 97.3 72 24 133/72 (92) 91 Nasal Cannula 5.00 11/30/18 02:15 92 Nasal Cannula 3.00 11/30/18 01:00 70 11/30/18 00:00 96.8 75 20 130/94 (106) 93 Nasal Cannula 5.00 11/29/18 21:28 93 Nasal Cannula 3.00 11/29/18 20:00 97.5 79 24 134/72 (92) 93 Nasal Cannula 3.00 11/29/18 20:00 High Flow N/C 3.00 11/29/18 19:00 83 11/29/18 18:40 93 Nasal Cannula 3.00 11/29/18 16:00 98.9 69 19 93/51 (65) 94 Nasal Cannula 5.00 11/29/18 14:46 91 Nasal Cannula 3.00 11/29/18 12:25 75 I & O 11/30/18 07:00 Intake Total 1780 ml Output Total 3510 ml Balance -1730 ml Height & Weight Height: 5'3.00" Weight: 294lbs. 8.0oz. 133.923235yc; 52.3 BMI Method:Stated General Appearance: No Apparent Distress HEENT: PERRL/EOMI Neck: Full Range of Motion Respiratory: Decreased Breath Sounds, Rhonci Cardiovascular: Regular Rate, Rhythm Capillary Refill: Less Than 3 Seconds Gastrointestinal: normal bowel sounds, soft, other (no new redness/erythema skin, high output fistula) Extremity: Normal Capillary Refill Neurologic/Psychiatric: Alert, Oriented x3 Skin: Normal Color Lymphatic: No Adenopathy Results Lab Laboratory Tests 11/29/18 05:30 11/30/18 05:10 11/30/18 05:18 Assessment/Plan Assessment/Plan Acute on chronic respiratory failure -SVNS - -Improving -Pt is requiring 2-3 liters of oxygen Leukocytosis -Currently Zosyn and clindamycin Hyperglycemia Morbid obesity with OHS DM II S/p Hernia repair surgery -Dr. Olvera following Enterocutaneous fistula Hx of severe COPD oxygen dependent Acute on chronic renal failure- improved -Monitor Elevated troponin -cardiology following MERCEDES GARNICA DO Nov 30, 2018 12:26
--- NOTE | 2018-11-30 15:13 | NUR ---
Performed assessment for NPWT. Collaborated with Jaja the rep for [employer]. Spoke with Dr. Olvera and agree that NPWT not indicated at this time. Possible NPWT appropriate after drainage decreases?
--- NOTE | 2018-11-30 15:40 | Diagnostic Imaging Report ---
INDICATION: Shortness of air. COMPARISON: 11/25/2018. FINDINGS: A single frontal radiographic view of the chest was obtained and demonstrates mild cardiomegaly. The pulmonary vasculature is within normal limits. There is platelike atelectasis within the right lower lung field. Otherwise, the lungs are clear. There is no focal consolidation, large effusion, or pneumothorax. A left-sided subclavian Port-A-Cath is noted with the tip in the high SVC. The osseous structures show no acute abnormalities. IMPRESSION: Cardiomegaly but no evidence of failure or focal infiltrate. Dictated by: Dictated on workstation # [id number]
[2018-11-30 16:05] VITALS: BP 122/75
[2018-11-30] MEDS: POTASSIUM CHLORIDE IV SCH ×11 (17:26)
[2018-11-30] MEDS: SODIUM CHLORIDE IV SCH ×11 (17:26)
[2018-11-30] MEDS: [UNRECOGNIZED DRUG - OTHER] IV SCH ×11 (17:26)
[2018-11-30 20:00] VITALS: BP 132/79
[2018-11-30] MEDS: ATORVASTATIN 40 MG (LIPITOR) TABLET PO SCH (21:27)
[2018-12-01 00:27] VITALS: BP 109/67
[2018-12-01] MEDS: inSUlin ASPART (NovoLOG) 1 UNIT/0.01 ML (CHARGE PER UNIT) SC SCH ×2 (00:37→06:50)
[2018-12-01] MEDS: PIPERACILLIN/TAZOBACTAM (BULK) 4.5 GM in NS (IVPB) 100 ML IV SCH ×2 (00:38→09:16)
[2018-12-01] MEDS: CLINDAMYCIN 600 MG/50 ML IVPB 50 ML IV SCH ×2 (00:49→09:16)
[2018-12-01] MEDS: RT-ALBUTEROL/IPRATROPIUM 3 ML (DUONEB) VIAL IH SCH (02:19)
[2018-12-01] MEDS: OCTREOTIDE INJECTION 500 MCG in NS (IVPB) 97.5 ML IV SCH (03:34)
[2018-12-01 03:35] VITALS: BP 122/75
[2018-12-01 06:36] LABS: BASOPHILS # (AUTO) 0.2 10^3/uL (0.0-0.1); BASOPHILS % (AUTO) 1 % (0-10); EOSINOPHILS # (AUTO) 0.4 10^3/uL (0.0-0.3); EOSINOPHILS % (AUTO) 3 % (0-10); HEMATOCRIT 36 % (35-52); HEMOGLOBIN 11.1 G/DL (11.5-16.0); LYMPHOCYTES # (AUTO) 1.8 X 10^3 (1.0-4.0); LYMPHOCYTES % (AUTO) 11 % (12-44); MEAN CORPUSCULAR HEMOGLOBIN 28 PG (25-34); MEAN CORPUSCULAR HGB CONC 31 G/DL (32-36); MEAN CORPUSCULAR VOLUME 91 FL (80-99); MEAN PLATELET VOLUME 9.7 FL (7.4-10.4); MONOCYTES # (AUTO) 1.9 X 10^3 (0.0-1.0); MONOCYTES % (AUTO) 12 % (0-12); NEUTROPHILS # (AUTO) 11.3 X 10^3 (1.8-7.8); NEUTROPHILS % (AUTO) 73 % (42-75); PLATELET COUNT 301 10^3/uL (130-400); RED CELL DISTRIBUTION WIDTH 15.4 % (10.0-14.5); WHITE BLOOD COUNT 15.6 10^3/uL (4.3-11.0)
[2018-12-01 07:02] LABS: ALANINE AMINOTRANSFERASE 17 U/L (0-55); ALBUMIN 3.2 GM/DL (3.2-4.5); ALKALINE PHOSPHATASE 62 U/L (40-136); BILIRUBIN,TOTAL 0.4 MG/DL (0.1-1.0); BUN/CREATININE RATIO 32; CALCIUM 8.8 MG/DL (8.5-10.1); CARBON DIOXIDE 25 MMOL/L (21-32); CHLORIDE 104 MMOL/L (98-107); CREATININE SERUM 0.93 MG/DL (0.60-1.30); GFR ESTIMATED > 60; GLUCOSE 164 MG/DL (70-105); MAGNESIUM 2.1 MG/DL (1.6-2.4); PHOSPHORUS 4.2 MG/DL (2.3-4.7); POTASSIUM 4.6 MMOL/L (3.6-5.0); SODIUM 139 MMOL/L (135-145); TOTAL PROTEIN 6.9 GM/DL (6.4-8.2); TRIGLYCERIDES 219 MG/DL (<150)
[2018-12-01 08:00] VITALS: BP 135/82
--- NOTE | 2018-12-01 08:12 | Cardiology Progress Note ---
Subjective Date Seen by Provider: Dec 01, 2018 Time Seen by Provider: 08:11 Subjective/Events-last exam Patient is laying down in bed, feeling better, breathing better Review of Systems General: No Chills, No Night Sweats, No Fatigue, No Malaise, No Appetite, No Other HEENT: No Head Aches, No Visual Changes, No Eye Pain, No Ear Pain, No Dysphasia, No Sinus Congestion, No Post Nasal Drip, No Sore Throat, No Other Pulmonary: Dyspnea; No Cough, No Pleuritic Chest Pain, No Other Cardiovascular: No: Chest Pain, Palpitations, Orthopnea, Paroxysmal Noc. Dyspnea, Edema, Lt Headedness, Other Objective-Cardiology Exam Last Set of Vital Signs Vital Signs 11/27/18 12/01/18 12/01/18 08:00 03:35 07:00 Temp 98.0 Pulse 69 Resp 20 B/P (MAP) 122/75 (91) Pulse Ox 95 O2 Delivery High Flow N/C O2 Flow Rate 4.00 FiO2 45 Capillary Refill : Less Than 3 SecondsLess Than 3 Seconds I&O Intake and Output 12/01/18 00:00 Intake Total 605 ml Output Total 6313 ml Balance -5708 ml Intake Oral 605 ml Output Urine Total 4150 ml Stool Total 2103 ml Gastric Drainage Total 60 ml # Bowel Movements 1 General: Alert, No Acute Distress HEENT: Atraumatic Neck: Supple Lungs: Clear to Auscultation, Normal Air Movement Heart: Regular Rate, Normal S1, Normal S2, No Murmurs Abdomen: Other (diminished bowel sounds, new fistula with discharge at the surgical site) Extremities: No Clubbing, Other (Edema) Skin: No Rashes Neuro: Normal Speech Psych/Mental Status: Mental Status NL Results Lab Laboratory Tests 12/01/18 06:25 A/P-Cardiology Admission Diagnosis Acute respiratory failure Non-ST elevation myocardial infarction, type II IL Hypertension Hyperlipidemia Assessment/Plan Status post respiratory failure, extubated, using C Pap on and off, feeling better today, responded well to Lasix. Continue to monitor New enterocutaneous fistula postoperatively, 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 Olvera Acute non-ST elevation myocardial infarction, poor R-wave progression in the anterior leads, probably type II myocardial infarctions due to respiratory failure, underlying coronary artery disease cannot be entirely excluded. Echocardiogram showed normal LV function. Continue with conservative management at this time, continue to monitor. Troponin level is trending down, no acute EKG changes suggestive of active ischemia, conservative management at this time. Continue to monitor Hypertension, better controlled today. Continue to monitor Hyperlipidemia maintained on Lipitor, on hold at this point COPD, oxygen dependent, progressed into respiratory failure after abdominal surgery, currently extubated, complaining of some increased dyspnea this morning. Morbid obesity Diabetes mellitus, followed and managed by primary care physician History of tobaccoism Clinical Quality Measures DVT/VTE Risk/Contraindication: Risk Factor Score Per Nursin RFS Level Per Nursing on Admit: 4+=Very High AUSTEN MARTÍNEZ MD Dec 01, 2018 08:12
--- NOTE | 2018-12-01 08:49 | Pulmonary Progress Note ---
Subjective Time Seen by a Provider: 08:48 Subjective/Events-last exam No complications noted. Sepsis Event Evaluation Height, Weight, BMI Height: 5'3.00" Weight: 295lbs. 3.0oz. 133.650954vl; 52.3 BMI Method:Stated Exam Exam Vital Signs Date Time Temp Pulse Resp B/P (MAP) Pulse Ox O2 Delivery O2 Flow Rate FiO2 12/01/18 07:00 69 12/01/18 03:35 98.0 70 20 122/75 (91) 95 High Flow N/C 4.00 12/01/18 02:19 90 Nasal Cannula 4.00 12/01/18 01:00 82 12/01/18 00:27 97.0 86 20 109/67 (81) 93 High Flow N/C 4.00 11/30/18 22:09 90 4.00 11/30/18 20:00 97.0 80 20 132/79 (96) 96 High Flow N/C 4.00 11/30/18 20:00 High Flow N/C 4.00 11/30/18 19:00 78 11/30/18 18:14 92 Nasal Cannula 4.00 11/30/18 16:05 96.8 73 18 122/75 (91) 94 Nasal Cannula 4.00 11/30/18 13:58 91 Nasal Cannula 4.00 11/30/18 13:00 74 11/30/18 12:00 97.5 69 20 130/68 (88) 93 Nasal Cannula 4.00 11/30/18 10:04 93 Nasal Cannula 4.00 11/30/18 08:50 82 Nasal Cannula 2.00 I & O 12/01/18 07:00 Intake Total 950 ml Output Total 6628 ml Balance -5678 ml Height & Weight Height: 5'3.00" Weight: 295lbs. 3.0oz. 133.768394yf; 52.3 BMI Method:Stated General Appearance: No Apparent Distress, WD/WN, Chronically ill, Obese, Other (intubated and sedated) HEENT: PERRL/EOMI, Pharynx Normal, Other Neck: Normal Inspection, Non Tender Respiratory: Lungs Clear, Normal Breath Sounds Cardiovascular: Regular Rate, Rhythm Capillary Refill: Less Than 3 Seconds Gastrointestinal: normal bowel sounds, soft Extremity: Normal Capillary Refill Neurologic/Psychiatric: Alert, Oriented x3 Skin: Normal Color, Warm/Dry Lymphatic: No Adenopathy Results Lab Laboratory Tests 11/30/18 05:10 11/30/18 05:18 12/01/18 06:25 Assessment/Plan Assessment/Plan Acute on chronic respiratory failure - improved -SVNS - -oxygen Leukocytosis - Zosyn and clindamycin Hyperglycemia Morbid obesity with OHS DM II S/p Hernia repair surgery -Dr. Olvera following Enterocutaneous fistula Hx of severe COPD oxygen dependent Acute on chronic renal failure- improved -Monitor Elevated troponin -cardiology following MERCEDES GARNICA DO Dec 01, 2018 08:49
[2018-12-01] MEDS ORDERED: FUROSEMIDE 20 MG (LASIX) TAB PO SCH (09:00)
[2018-12-01] MEDS: FLUCONAZOLE 200 MG/100 ML 50 ML, EMPTY IV BAG (PVC) 1 EA IV SCH ×2 (09:17)
[2018-12-01] MEDS: meTOprolol TARTRATE 25 MG (LOPRESSOR) TABLET PO SCH (09:19)
[2018-12-01] MEDS: OMEGA 3 (FISH OIL) 1000 MG CAP PO SCH (09:19)
[2018-12-01] MEDS: DOCUSATE SODIUM 100 MG (COLACE) CAP PO SCH (09:20)
[2018-12-01] MEDS: LINAGLIPTIN (TRADJENTA) 5 MG TABLET PO SCH (09:20)
[2018-12-01] MEDS: VITAMIN D3 5,000 UNITS (CHOLECALCIFEROL ) CAPSULE PO SCH (09:20)
[2018-12-01] MEDS: buPROPion SR 150 MG (WELLBUTRIN SR) TAB PO SCH (09:20)
[2018-12-01] MEDS: MAGNESIUM OXIDE (MAG-OX)400 MG TAB PO SCH (09:22)
--- NOTE | 2018-12-01 09:23 | NUR ---
IRF Received insurance authorization for patient to admit to ARU, today. CM/SS notified.
[2018-12-01] MEDS: amLODIPine 10 MG (NORVASC) TAB PO SCH (09:27)
[2018-12-01] MEDS: lisINopril 20 MG (PRINIVIL) TABLET PO SCH (09:27)
[2018-12-01] MEDS: DULoxetine 30 MG (CYMBALTA) CAP PO SCH (09:28)
[2018-12-01] MEDS: RT-ADVAIR HFA 115/21 MCG PER PUFF IH SCH (10:26)
[2018-12-01] MEDS: ENOXAPARIN 60 MG/0.6 ML (LOVENOX) SYR SC SCH (10:27)
--- NOTE | 2018-12-01 10:34 | Progress Note ---
Subjective Date Seen by a Provider: Dec 01, 2018 Time Seen by a Provider: 09:00 Subjective/Events-last exam doing ok. no new complaints. no fever/chills. respiratory status baseline. tolerating dys1 diet. high output fistula. has had BM's as well. Objective Exam Vital Signs Date Time Temp Pulse Resp B/P (MAP) Pulse Ox O2 Delivery O2 Flow Rate FiO2 12/01/18 08:00 High Flow N/C 4.00 12/01/18 08:00 98.2 74 18 135/82 (99) 96 High Flow N/C 4.00 12/01/18 07:00 69 12/01/18 03:35 98.0 70 20 122/75 (91) 95 High Flow N/C 4.00 12/01/18 02:19 90 Nasal Cannula 4.00 12/01/18 01:00 82 12/01/18 00:27 97.0 86 20 109/67 (81) 93 High Flow N/C 4.00 11/30/18 22:09 90 4.00 11/30/18 20:00 97.0 80 20 132/79 (96) 96 High Flow N/C 4.00 11/30/18 20:00 High Flow N/C 4.00 11/30/18 19:00 78 11/30/18 18:14 92 Nasal Cannula 4.00 11/30/18 16:05 96.8 73 18 122/75 (91) 94 Nasal Cannula 4.00 11/30/18 13:58 91 Nasal Cannula 4.00 11/30/18 13:00 74 11/30/18 12:00 97.5 69 20 130/68 (88) 93 Nasal Cannula 4.00 I & O 12/01/18 07:00 Intake Total 950 ml Output Total 6628 ml Balance -5678 ml Capillary Refill : Less Than 3 SecondsLess Than 3 Seconds General Appearance: No Apparent Distress HEENT: PERRL/EOMI Neck: Full Range of Motion Respiratory: Chest Non Tender, Rhonci Cardiovascular: Regular Rate, Rhythm Gastrointestinal: normal bowel sounds, soft, other (high output fistula) Extremity: Normal Capillary Refill Neurologic/Psychiatric: Alert, Oriented x3 Skin: Normal Color Lymphatic: No Adenopathy Results Lab Laboratory Tests 11/30/18 12:03: Glucometer 190H 11/30/18 17:57: Glucometer 158H 12/01/18 00:26: Glucometer 196H 12/01/18 06:25: White Blood Count 15.6H, Red Blood Count 3.94L, Hemoglobin 11.1L, Hematocrit 36, Mean Corpuscular Volume 91, Mean Corpuscular Hemoglobin 28, Mean Corpuscular Hemoglobin Concent 31L, Red Cell Distribution Width 15.4H, Platelet Count 301, Mean Platelet Volume 9.7, Neutrophils (%) (Auto) 73, Lymphocytes (%) (Auto) 11L, Monocytes (%) (Auto) 12, Eosinophils (%) (Auto) 3, Basophils (%) (Auto) 1, Neutrophils # (Auto) 11.3H, Lymphocytes # (Auto) 1.8, Monocytes # (Auto) 1.9H, Eosinophils # (Auto) 0.4H, Basophils # (Auto) 0.2H, Sodium Level 139, Potassium Level 4.6, Chloride Level 104, Carbon Dioxide Level 25, Anion Gap 10, Blood Urea Nitrogen 30H, Creatinine 0.93, Estimat Glomerular Filtration Rate > 60, BUN/Creatinine Ratio 32, Glucose Level 164H, Calcium Level 8.8, Corrected Calcium 9.4, Phosphorus Level 4.2, Magnesium Level 2.1, Total Bilirubin 0.4, Aspartate Amino Transf (AST/SGOT) 16, Alanine Aminotransferase (ALT/SGPT) 17, Alkaline Phosphatase 62, Total Protein 6.9, Albumin 3.2, Triglycerides Level 219H Microbiology 11/21/18 Blood Culture - Final, Complete No growth 11/20/18 Gram Stain - Final, Complete 11/20/18 Sputum Culture - Final, Complete Usual upper respiratory chandana 11/20/18 Urine Culture - Final, Complete NO GROWTH Assessment/Plan Assessment/Plan Assess & Plan/Chief Complaint s/p open repair recurrent ventral abd incisional hernia with mesh with multiple medical comorbidities including diabetes, copd and morbid obesity. exacerbation copd and non s-t elevation ND. cont abx for high risk pneumonia/wound infxn. enterocutaneous fistula. will continue TPN and octreotide gtt. clear liquids/dys1 diet. ok for IRU. diflucan to cover fungal. cont PT/OT. will be transferred to IRU consult inpatient woundcare/nursing. will need CT abd and pelvis with oral contrast to rule out distal obstruction at some point. will continue to follow. Clinical Quality Measures DVT/VTE Risk/Contraindication: Risk Factor Score Per Nursin RFS Level Per Nursing on Admit: 4+=Very High WENDI ELIZABETH MD Dec 01, 2018 10:34
[2018-12-01 10:35] VITALS: BP 135/82
--- NOTE | 2018-12-05 13:36 | Physician Query Clarification ---
PQ-Debridement Admission/Discharge Admission Date: Nov 19, 2018 at 12:00 Discharge Date: Dec 01, 2018 at 10:15 PHYSICIAN RESPONSE Operative report/procedure note reflects the following description: The abdomen was prepped and draped in standard surgical fashion. The skin was open to the length of the previous incision inferiorly. The devitalized skin and subcutaneous tissue was then debrided using a sharp dissecting scissors. QUESTION: Please clarify the depth of the debridement. Please clarify if the debridement was excisional or non-excisional. Please document a response in the Progress Notes or Discharge Summary. 1. Level: Skin Subcutaneous tissue Fascia Muscle Bone 2. Type of debridement: Excisional Non-excisional 3. Other, with explanation of the clinical findings 4. Clinically unable to determine PQ Debridement : Level: Subcutaneous Tissue Type: Excisional Please remember a lack of response to the above will prompt a phone page by CDI/Coding staff. In responding to this query, please exercise your independent professional judgment. The purpose of this communication is to more accurately reflect the complexity of your patients condition. The fact that a question is asked does not imply that any particular answer is desired or expected. Thank you for your timely response to this clarification. Requestors name: Larry THIS PHYSICIAN QUERY FORM IS A PERMANENT PART OF THE MEDICAL RECORD LARRY HUSSEIN Dec 05, 2018 13:36 WENDI ELIZABETH MD Dec 05, 2018 15:23
== END 2018-12-01 10:15 | DRG 622 ==
LOC: SDC 10:09 → 4TH 17:30 → SDC 11-19 11:59 → 4TH 11-19 12:00 → SDC 11-20 08:36 → ICU 11-20 08:36 → UNDOFXSDCSVC 11-20 11:36 → 4TH 11-20 11:36 → UNDOFXSDCACCOM 11-20 11:36 → ICU 11-20 11:36 → UNDOADMIN 11-20 11:36 → 4TH 11-25 16:08 → ICU 11-25 16:08 → 4TH 11-29 12:01 → UNDODISIN 12-01 10:15
PROVIDERS: ADMIT Surgery; ATTEND Surgery
PROC: 0WUF0JZ Supplement Abdominal Wall with Synthetic Substitute, Open Approach (ICD-10-PCS; principal; 2018-11-17 12:06)
PROC: 5A1945Z Respiratory Ventilation, 24-96 Consecutive Hours (ICD-10-PCS; 2018-11-20)
PROC: 0BH17EZ Insertion of Endotracheal Airway into Trachea, Via Natural or Artificial Opening (ICD-10-PCS; 2018-11-20)
PROC: 0JB80ZZ Excision of Abdomen Subcutaneous Tissue and Fascia, Open Approach (ICD-10-PCS; 2018-11-26)
DX: E11.65 Type 2 diabetes mellitus with hyperglycemia (principal); J96.22 Acute and chronic respiratory failure with hypercapnia; J43.9 Emphysema, unspecified; K43.2 Incisional hernia without obstruction or gangrene; I21.A1 Myocardial infarction type 2; E66.2 Morbid (severe) obesity with alveolar hypoventilation; N17.9 Acute kidney failure, unspecified; K63.2 Fistula of intestine; T81.49XA Infection following a procedure, other surgical site, initial encounter; Z68.43 Body mass index [BMI] 50.0-59.9, adult; I12.9 Hypertensive chronic kidney disease with stage 1 through stage 4 chronic kidney disease, or unspecified chronic kidney disease; N18.3 Chronic kidney disease, stage 3 (moderate); E78.5 Hyperlipidemia, unspecified; I95.9 Hypotension, unspecified; E11.40 Type 2 diabetes mellitus with diabetic neuropathy, unspecified; F32.9 Major depressive disorder, single episode, unspecified; M79.7 Fibromyalgia; M54.9 Dorsalgia, unspecified; M19.91 Primary osteoarthritis, unspecified site; Z87.891 Personal history of nicotine dependence; Z99.81 Dependence on supplemental oxygen; Z90.49 Acquired absence of other specified parts of digestive tract; Z79.84 Long term (current) use of oral hypoglycemic drugs; Z87.19 Personal history of other diseases of the digestive system
CPT/HCPCS: 36415; 71045; 74176; 80048; 80053; 81000; 82010; 82805; 82962; 83605; 83735; 84100; 84134; 84478; 84484; 85007; 85025; 85027; 87040; 87081; 93005; 93306; 94002; 94003; 94640; 94660; 94760; 94799

== ENCOUNTER 2018-12-01 09:16 | Inpatient (IN) | payer MEDICAID ==
[~2018-12-01] VITALS: Ht 160 cm; Wt 123.9 kg
[~2018-12-01 09:16] MED LIST changes: +HYDR-3816 PO
[2018-12-01 10:35] VITALS: BP 129/77
--- NOTE | 2018-12-01 10:51 | History & Physical ---
[facility] 12/01/18 1050: History of Present Illness History of Present Illness Reason for visit/HPI CC: weakness 2/2 postop complications Ms. Hernandez is a 63 yo WF with a PMH of Depression, HTN, and CKD presents to the inpatient rehab unit for myopathy and deconditioning 2/2 postop complications. The patient presented to the hospital for an outpatient surgery to repair a recurrent ventral incisional hernia with surgery perfromed by Dr. Olvera on 11/18. After the surgery, the patient developed hypertension, hyperglycemia, and subsequently developed respiratory distress and an NSTEMI requiring intubation and sedation on 11/20. She was extubated on 11/24. and has been improving since. She also developed a small bowel fistula requiring on ostomy bag. She continues to recover and is stable medically to be admitted to the rehab unit. Prior to the surgery, she was independent with use of a FWW for the previous 7 months due to increasing weakness. She lives alone in an apartment was was independent for all ADL's. She was able to drive in her compact car with a low ride height. She prefered to use powered carts in the grocery store, but if one was not available, she was comfortable using a grocery cart. She has no stairs to navigate into of out of her home and has carpet in all living areas with tile in the bath and kitchen. She does have a small cocker spaniel dog as a personal lines advisor. Expectations of time with respect to recovery were explained, as well as compliance with all therapy on the unit. Date of Admission I consulted on this patient on 12/01/18 10:38 Attending Physician Dang Licea DO Admitting Physician Cassius Francois MD Consult Allergies and Home Medications Allergies Coded Allergies: No Known Drug Allergies (Unverified , 11/16/18) Home Medications Albuterol/Ipratropium 4 Gm Aero, 2 PUFF IH Q4H PRN for SHORTNESS OF BREATH, (Reported) Amlodipine Besylate 10 Mg Tablet, 10 MG PO DAILY, (Reported) Atorvastatin Calcium 40 Mg Tablet, 40 MG PO DAILY, (Reported) Bupropion HCl 150 Mg Tab.er.24h, 150 MG PO DAILY, (Reported) Cholecalciferol (Vitamin D3) 5,000 Unit Capsule, 5,000 UNIT PO DAILY, (Reported) Duloxetine HCl 60 Mg Capsule.dr, 60 MG PO DAILY, (Reported) Fluticasone/Salmeterol 12 Gm Hfa.aer.ad, 0 PUFF IH BID@08,20 Prescribed by: DANG LICEA on 12/16/16 1020 Lisinopril 20 Mg Tablet, 20 MG PO DAILY, (Reported) Magnesium Oxide 400 Mg Tablet, 400 MG PO DAILY, (Reported) [place] 3 Polyunsat Fatty Acids 1,000 Mg Cap, 1,000 MG PO DAILY, (Reported) Sitagliptin Phosphate 100 Mg Tablet, 100 MG PO DAILY, (Reported) Past Tpuuvwh-Dshbsd-Yhaerp Hx Patient Social History Drug of Choice: Marijuana Type Used: Cigarettes 2nd Hand Smoke Exposure: Yes Recent Hopitalizations: Yes ( FOR C-DIFF) Immunizations Up To Date Tetanus Booster (TDap): More than 5yrs Date of Pneumonia Vaccine: Apr 12, 2013 Date of Influenza Vaccine: Jan 17, 2018 Seasonal Allergies Seasonal Allergies: No Surgeries Yes (COLON RESECTION, C/S X2, BILAT CTR, c-spine fusion) Section, Orthopedic Respiratory Yes (BI-PAP, OXYGEN 2L AT NIGHT AND PRN) COPD, Emphysema Currently Using BIPAP: Yes Cardiovascular Yes High Cholesterol, Hypertension Neurological Yes (chronic numbness rt proximal lateral thigh.) Neuropathy 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 System Hx 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 Disorders: No Sexually Transmitted Disease: No HIV/AIDS: No Female 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 Disorders: Denies Genitourinary Yes (STAGE 3 KIDNEY FAILURE) Kidney Stones, Renal Failure Gastrointestinal Yes (COLON RESECTION, ) Chronic Constipation, Diverticulosis Musculoskeletal Yes (STENOSIS. chronic neck pain.) Degenerate Disk Disease, Fibromyalgia, Chronic Back Pain Endocrine History of Endocrine Disorders: Yes Endocrine Disorders: Diabetes, Non-Insulin dep HEENT History of HEENT Disorders: No (GLASSES, DENTURES) Loss of Vision: Denies Hearing Impairment: Denies, Hard of Hearing Cancer No Psychosocial History of Psychiatric Problem: Yes Behavioral Health Disorders: Depression Integumentary History of Skin or Integumenta: No Blood Transfusions History of Blood Disorders: No Adverse Reaction to a Blood Tr: No (N/A) Family Medical History Significant Family History: No Pertinent Family Hx Family Hx: Arthritis 19 FATHER Cardiovascular disease 19 FATHER Completed stroke 19 MOTHER Diabetes mellitus 19 FATHER Hypertension 19 FATHER G8 SISTER Myocardial infarction 19 FATHER Respiratory disorder 19 MOTHER Physical Exam Vital Signs Capillary Refill : Height, Weight, BMI Height: 5'3.00" Weight: 295lbs. 3.0oz. [id number]; 52.3 BMI Method:Stated DANG LICEA DO 12/01/182004: History of Present Illness History of Present Illness Reason for visit/HPI Verification and Attestation of Medical Student E/M Service A medical student performed and documented this service in my presence. I reviewed and verified all information documented by the medical student and made modifications to such information, when appropriate. I personally performed the physical exam and medical decision making. Dang Licea, Dec 01, 2018,20:04 Date of Admission 12/01/18 Date Seen by a Provider: Dec 01, 2018 Time Seen by a Provider: 12:45 Allergies and Home Medications Allergies Coded Allergies: No Known Drug Allergies (Unverified , 11/16/18) Home Medications Albuterol/Ipratropium 4 Gm Aero, 2 PUFF IH Q4H PRN for SHORTNESS OF BREATH, (Reported) Amlodipine Besylate 10 Mg Tablet, 10 MG PO DAILY, (Reported) Atorvastatin Calcium 40 Mg Tablet, 40 MG PO DAILY, (Reported) Bupropion HCl 150 Mg Tab.er.24h, 150 MG PO DAILY, (Reported) Cholecalciferol (Vitamin D3) 5,000 Unit Capsule, 5,000 UNIT PO DAILY, (Reported) Duloxetine HCl 60 Mg Capsule.dr, 60 MG PO DAILY, (Reported) Fluticasone/Salmeterol 12 Gm Hfa.aer.ad, 0 PUFF IH BID@08,20 Prescribed by: DANG LICEA on 12/16/16 1020 Lisinopril 20 Mg Tablet, 20 MG PO DAILY, (Reported) Magnesium Oxide 400 Mg Tablet, 400 MG PO DAILY, (Reported) [place] 3 Polyunsat Fatty Acids 1,000 Mg Cap, 1,000 MG PO DAILY, (Reported) Sitagliptin Phosphate 100 Mg Tablet, 100 MG PO DAILY, (Reported) Patient Home Medication List Home Medication List Reviewed: Yes Past Vyznrju-Ntbbgj-Yobwpq Hx Patient Social History Marrital Status: Family Medical History Family Hx: Arthritis 19 FATHER Cardiovascular disease 19 FATHER Completed stroke 19 MOTHER Diabetes mellitus 19 FATHER Hypertension 19 FATHER G8 SISTER Myocardial infarction 19 FATHER Respiratory disorder 19 MOTHER Review of Systems Constitutional: see HPI Physical Exam General Appearance: No Apparent Distress, WD/WN Assessment/Plan Assessment and Plan Problems: (1) Myopathy Admission Diagnosis Admission Status: Inpatient Order (span 2 midnights) Reason for Inpatient Admission: irf Supervisory-Addendum Brief Verification & Attestation Participated in pt care: history, MDM, physical Personally performed: exam, history, MDM, supervision of care Care discussed with: Medical Student Procedures: n/a Results interpretation: Verified all documentation Verification and Attestation of Medical Student E/M Service A medical student performed and documented this service in my presence. I reviewed and verified all information documented by the medical student and made modifications to such information, when appropriate. I personally performed the physical exam and medical decision making. Dang Licea, Dec 01, 2018,20:05 RADHA CALDWELL [facility] Dec 01, 2018 10:50 DANG LICEA DO Dec 01, 2018 20:05
--- NOTE | 2018-12-01 10:56 | NUR ---
Admitted to room 222, with an admitting diagnosis of debility, on from via , accompanied by .ASHLEY VENTURA introduced to surroundings, call light, bed controls, phone, TV, temperature control, lights, meal times, smoking policy, visitor policy, side rail policy, bathrooms and showers. Patient Rights given to patient in the handbook.ASHLEY VENTURA verbalizes understanding that [facility] is not responsible for the loss or damage to any personal effects or valuables that are kept in the patients posession during their hospitalization. The following Patient Care Plans were discussed with the : Discharge Planning, ,, and potential for injury r/t fall]. ASHLEY VENTURA verbalizes understanding of Interdisciplinary Patient Education. Patient and/or family were informed about the Rapid Response Team and its purpose. Patient received Patient Rights Booklet, which includes Privacy Act Statement and Data Collection Information Summary.
--- NOTE | 2018-12-01 11:33 | NUR ---
REVIEWED MED REC IT WAS REPORTED UPON ADMISSION TO 4TH FLOOR. NOTE THE FOLLOWING CHANGE WAS MADE WHEN THE PATIENT DISCHARGED TO REHAB THAT IS NO CURRENTLY REFLECTED ON THE HOME MED REC: START TAKING: HYDROCODONE 7.5-325MG 1-2 Q4H #35
--- NOTE | 2018-12-01 11:53 | Physical Therapy Evaluation ---
PT Evaluation-General Medical Diagnosis Admission Date Dec 01, 2018 at 10:15 Medical Diagnosis: COPD myopathy Onset Date: Dec 01, 2018 Therapy Diagnosis Therapy Diagnosis: abnormal gait Height/Weight Height (Feet): 5 Height (Inches): 3.00 Weight (Pounds): 291 Weight (Ounces): 11.2 Precautions Precautions/Isolations: Fall Prevention, Standard Precautions Referral Physician: Anamaria Reason for Referral: Evaluation/Treatment Medical History Pertinent Medical History: COPD, DM, HTN, Neuropathy, Smoking Current History s/p open repair recurrent ventral abd incisional hernia with mesh with multiple medical comorbidities including diabetes, copd and morbid obesity. Pt transferred to ARU post lengthy acute stay due to a decline in functional mobiltiy and strength. Reviewed History: Yes Social History Home: Apartment ([facility] in [place]) Entry Into Home: Level Entry PT Steps Inside Home: 0 Prior/Core FIM Prior Level of Function Therapy Code Descriptions/Definitions Functional [place] Measure: 0=Not Assessed/NA 4=Minimal Assistance 1=Total Assistance 5=Supervision or Setup 2=Maximal Assistance 6=Modified [place] 3=Moderate Assistance 7=Complete [place] Therapy Quality Codes: 6 Independent with activity with or without an assistive device 5 Patient requires set up or clean up by helper. Patient completes activity by themselves 4 Supervision or touching assist (CGA). [place] provide cues , steadying assist 3 The helper provides less than half the effort to complete the activity 2 The helper provides more than half the effort to complete the activity 1 Dependent. The helper does all the effort to complete an activity 7 Patient refused to complete or attempt activity 9 The patient did not perform the activity before the current illness or injury 88 Not attempted due to Medical conditions or safety concerns Functional Abilities and Goals: Independent: Patient completed the activities by him/herself, with or without an assistive device, with no assistance from a helper. Needed Some Help: Patient needed partial assistance from another person to complete activities. Dependent: A helper completed the activities for the patient. Unknown: Not Applicable: Bed Mobility: 6 Transfers (B,C,W/C) (FIM): 6 Gait: 6 Stairs: 9 Indoor Mobility (Ambulation): Independent Stairs: Not [place] Prior Devices Use: Walker pt used a FWW at [facility]; she was able to drive and did her own grocery shopping. She said she was able to walk through small stores but tried to use a scooter at [facility]. PT Evaluation-Current Subjective Pt agreeable to PT. Reports she is anxious to get out of bed as she has been in bed a great deal recently. Objective Patient Orientation: Person, Place, Time, Situation Problem Solving: Good Attachments: Oxygen, Gonzalez Catheter, IV ROM/Strength ROM Lower Extremities WFL Strenght Lower Extremities B LE strength is grossly 3/5 with limited functional act tolerance. Integumentary/Posture Integumentary Refer to nursing notes for full assessement. Bowel Incontinence: Yes Bladder Incontinence: Gonzalez Cath Neuromuscular (Tone, Coordination, Reflexes) rounded shoulders and forward head but symmetrical Sensory Vision: Wears Glasses Hearing: Functional Hand Dominance: Right Sensation Right Lower Extremit: Intact Sensation Left Lower Extremity: Intact Transfers Therapy Code Descriptions/Definitions Functional [place] Measure: 0=Not Assessed/NA 4=Minimal Assistance 1=Total Assistance 5=Supervision or Setup 2=Maximal Assistance 6=Modified [place] 3=Moderate Assistance 7=Complete [place] Therapy Quality Codes: 6 Independent with activity with or without an assistive device 5 Patient requires set up or clean up by helper. Patient completes activity by themselves 4 Supervision or touching assist (CGA). [place] provide cues , steadying assist 3 The helper provides less than half the effort to complete the activity 2 The helper provides more than half the effort to complete the activity 1 Dependent. The helper does all the effort to complete an activity 7 Patient refused to complete or attempt activity 9 The patient did not perform the activity before the current illness or injury 88 Not attempted due to Medical conditions or safety concerns Transfers (B, C, W/C) (FIM): 2 Scootin (assist of 2 to scoot but pt is able to assist) Rollin Roll Left to Right (QC): 3 Supine to/from Sit: 3 (assist with both legs to get into bed) Sit to/from Stand: 3 (mod assist to come to a full stand from standard height surface) bed t/f WC(FIM only if WC use): 4 Sit to Lying (QC): 3 Lying to Sitting/Side of Bed(Q: 3 Sit to Stand (QC): 3 Chair/Gsi-tl-Itttn Xfer(QC): 4 Car Transfer (QC): 88 (Unsafe to attempt car transfer at this time. ) Gait Does the Patient Walk?: Yes Mode of Locomotion: Walk Anticipated Mode of Locomotion: Walk Gait (FIM): 2 Distance (FIM): 1=up to 49 ft Walk 10 feet (QC): 88 Walk 50 ft with 2 Turns(QC): 88 Walk 150 ft (QC): 88 Walking 10ft/uneven surface-QC: 88 Distance: 4 ft x 2 Gait Level of Assist: 4 Gait Persons Needed: 2 Gait Assistive Device: FWW Comments/Gait Description Pt able to take a few steps with FWW with min assist for balance and safety and followed closely by wc; relies heavily on walker Wheelchair Training Does the Pt Use a Wheelchair?: No Stairs Stairs (FIM): 0 #of Steps: 0 1 Step (curb) (QC): 88 4 Steps (QC): 88 12 Steps (QC): 88 If not tested on admit;explain Pt unable to safely attempt; only taking a few steps at a time. high fall risk with attempt Balance Sitting Static: Good Sitting Dynamic: Good Standing Static: Fair Standing Dynamic: Fair Picking up an Object (QC): 88 Treatment Mulitple sit to stand transfers and SPT x 4 reps; mod assist to come to a stand with heavy cues for hand placement and sequencing. SPT withFWW with min assist for safety. Sit to from supine x 2 to increase trunk strength and functional mobility. Pt requires mod assist with bed mobility Assessment/Needs Pt presents to ARU post lengthy acute stay with medical issues. She was mod indep at [facility] and has significantly declined since then. She requires heavy assist with bed mobiltiy, transfers and is unable to effectively walk a functional distance at this time. She has gross funcitonal weakness, balance deficits and decreasede functional act tolerance. She will benefit from skilled intervention to address her deficits and allow her to return home as before. Rehab Potential: Good PT Short Term Goals Short Term Goals Time Frame: Dec 15, 2018 Transfers (B,C,W/C) (FIM): 4 Gait (FIM): 4 Distance (FIM): 3=150 ft Gait Assistive Device: FWW PT Director Presales Goals Group Home Goals PT Group Home Goals Time Frame: Dec 29, 2018 Transfers (B,C,W/C) (FIM): 6 Sit to Lying (QC): 6 Lying-Sitting on Side/Bed(QC): 6 Sit to Stand (QC): 6 Roll Left to Right (QC): 6 Chair/Trk-gx-Dxclt Xfer(QC): 6 Car Transfer (QC): 6 Does the Patient Walk: Yes Gait (FIM): 6 Gait distance (FIM): 3=150 ft Walk 10 feet (QC): 6 Walk 10ft-Uneven Surface(QC): 6 Walk 50ft with 2 Turns (QC): 6 Walk 150 ft (QC): 6 Gait Assistive Device: FWW Does the Pt use WC or Scooter?: No Stairs (FIM): 5 # of Steps: 4 1 Step (curb) (QC): 6 4 Steps (QC): 6 12 Steps (QC): 9 Picking up an Object (QC): 9 PT Plan Problem List Problem List: Activity Tolerance, Functional Strength, Safety, Balance, Gait, Transfer, Bed Mobility Treatment/Plan Treatment Plan: Continue Plan of Care Treatment Plan: Bed Mobility, Education, Functional Activity Juan F, Functional Strength, Group Therapy, Gait, Safety, Therapeutic Exercise, Transfers Treatment Duration: Dec 29, 2018 Frequency: At least 5 of 7 days/Wk (IRF) Estimated Hrs Per Day: 1.5 hours per day Patient and/or Family Agrees t: Yes Safety Risks/Education Patient Education: Transfer Techniques, Safety Issues Teaching Recipient: Patient Teaching Methods: Demonstration, Discussion Response to Teaching: Reinforcement Needed Discharge Recommendations Therapy D/C Recommendations: Physical Therapy Home Care Time/GCodes Time In: 1015 Time Out: 1100 Total Billed Treatment Time: 45 Total Billed Treatment visit EVM 15 FA 30 CEDRIC ALCANTARA PT Dec 01, 2018 11:53
[2018-12-01] MEDS ORDERED: RT-ALBUTEROL/IPRATROPIUM 3 ML (DUONEB) VIAL INH PRN (13:00)
[2018-12-01] MEDS ORDERED: ONDANSETRON 4 MG/2 ML (SDV) Z0FRAN IVP PRN (13:00)
[2018-12-01] MEDS ORDERED: TPN IV SCH (13:00)
[2018-12-01] MEDS ORDERED: hydrALAZINE (APESOLINE) 20 MG/ML VIAL IV PRN (13:00)
[2018-12-01] MEDS: meTOprolol TARTRATE 25 MG (LOPRESSOR) TABLET PO SCH ×2 (13:29→21:35)
[2018-12-01] MEDS: OCTREOTIDE INJECTION 500 MCG in NS (IVPB) 97.5 ML IV SCH ×2 (14:04→23:10)
--- NOTE | 2018-12-01 14:04 | ST Dysphagia Evaluation ---
Speech Evaluation-General Medical Diagnosis COPD myopathy Onset Date: Dec 01, 2018 Therapy Diagnosis Therapy Diagnosis: Oropharyngeal Dysphagia Precautions Precautions: Aspiration Precautions/Isolations: Aspiration, Fall Prevention, Standard Precautions Referral Referring Physician: Dr. Conrad Reason for Referral: Evaluation/Treatment Medical History Pertinent Medical History: COPD, DM, HTN, Neuropathy, Smoking COPD, DM, HTN, Neuropathy, Depression, CKD, Smoking Current History COPD myopathy Reviewed History: Yes Social History Home: Single Level Current Living Status: Alone Speech PLF/Current-Dysphagia Prior Level of Function The patient was independent with 4WW prior to this hospital admit. She was independent within her home where she lived alone. Subjective The patient was pleasant and compliant with the Bedside Dysphagia Evaluation. Cognitive Status Patient is oriented to all concepts. Oral Motor Skills Denture Type: Full- Upper & Lower Current Food Consistancy: Mechanical Soft, Dysphagia Soft, Thin Liquids Ability to Follow Directions: Good Oral Expression Ability: No Impairment Voice Voice Phonatory-Based Quality: Normal Voice Pitch: Normal Voice Loudness: Normal Face Facial Symmetry: Symmetrical Oral-Facial Assessment Oral-Facial Dentition: Normal Labial Seal Description: Normal Smile: Normal Puff Cheeks: Normal Lingual Protrusion: Normal Lingual ROM: Normal Lingual Strength: Normal Pharynx Velopharyngeal Move.: Normal Volitional Dry Swallow: Yes Voluntary Cough: Yes Dysphagia Evaluation Consistencies Presented: Thin Liquid, Mechanical Soft, Ground, Pureed Oral phase is within normal function range. Pharyngeal phase is within normal function range. Dietary Recommendations: Mechanical Soft Liquid Recommendations: Thin Swallowing Precautions: Alternate Liquids/Solids, Liquids from Straw, Small Bites and Sips, Sitting Upright 90 Degrees, Sitting 90 Degrees 30 Post Intake Dysphagia Evaluation Summary The patient was evaluated at bedside for swallow function per physician's order. She demo adequate oral and pharyngeal function for all consistencies presented including: thin via small sips by straw x3, 1/2 tsp puree, 1/2 tsp mech. soft without difficulty. Due to patient's difficulty status post surgery and ostomy she will remain on soft diet with thin liquids. This information was provided to her nurse and written on the white board in her room. Barriers to Learning None identified Speech Short Term Goals Short Term Goals Short Term Goals 1) The patient will tolerate least restrictive diet level without s/s of aspiration at 90% or greater. 2) The patient will utilize compensatory strategies as trained for safe oral intake at 90% or greater given minimal verbal cues. Speech Skilled Nursing Goals Workforce Management Analyst Goals The patient will maintain adequate nutrition/hydration via safe effective swallow function. Speech-Plan Patient/Family Goals Patient/Family Goals: The patient plans on returning home where she lives alone post rehab. Treatment Plan Speech Therapy Treatment Plan: Continue Plan of Care The patient will receive skilled ST services for dysphagia. Treatment Duration: Dec 09, 2018 Frequency: 5 times per week Estimated Hrs Per Day: .5 hour per day Rehab Potential: Good Barriers to Learning: None identified. Pt/Family Agrees to Plan: Yes Safety Risks/Education Teaching Recipient: Patient Teaching Methods: Demonstration, Discussion Response to Teaching: Verbalize Understanding, Return Demonstration Education Topics Provided: Safety of oral intake and diet level Time Speech Therapy Time In: 12:15 Speech Therapy Time Out: 12:30 Total Billed Time: 15 Billed Treatment Time 1, ANTHONY Villatoro Dec 01, 2018 14:04
--- NOTE | 2018-12-01 14:24 | Physical Therapy Daily Note ---
PT Daily Note-Current Subjective Reports she has done more today than she has for a while. Agreeable to PT. Transfers Therapy Code Descriptions/Definitions Functional [place] Measure: 0=Not Assessed/NA 4=Minimal Assistance 1=Total Assistance 5=Supervision or Setup 2=Maximal Assistance 6=Modified [place] 3=Moderate Assistance 7=Complete [place] Therapy Quality Codes: 6 Independent with activity with or without an assistive device 5 Patient requires set up or clean up by helper. Patient completes activity by themselves 4 Supervision or touching assist (CGA). [place] provide cues , steadying assist 3 The helper provides less than half the effort to complete the activity 2 The helper provides more than half the effort to complete the activity 1 Dependent. The helper does all the effort to complete an activity 7 Patient refused to complete or attempt activity 9 The patient did not perform the activity before the current illness or i njury 88 Not attempted due to Medical conditions or safety concerns Treatments Sit to stand x 3 from commode with mod assist and skilled cues 50% of the time for sequencing. Dep for pericare. Pt transferred commode to the bed walking 5 ft wtih FWW with min assist. Mod assist to transfer sit to supine and max assist to scoot in bed. Pt in bed post treatment with needs met. Assessment Current Status: Good Progress Pt is following cues well and carrovery from prior treatment noted. PT Short Term Goals Short Term Goals Time Frame: Dec 15, 2018 Transfers (B,C,W/C) (FIM): 4 Gait (FIM): 4 Distance (FIM): 3=150 ft Gait Assistive Device: FWW PT Group Home Goals [place] Worker Goals PT Group Home Goals Time Frame: Dec 29, 2018 Transfers (B,C,W/C) (FIM): 6 Sit to Lying (QC): 6 Lying-Sitting on Side/Bed(QC): 6 Sit to Stand (QC): 6 Rollin Roll Left to Right (QC): 6 Chair/Awa-ep-Tcgdg Xfer(QC): 6 Car Transfer (QC): 6 Does the Patient Walk: Yes Gait (FIM): 6 Gait distance (FIM): 3=150 ft Walk 10 feet (QC): 6 Walk 10ft-Uneven Surface(QC): 6 Walk 50ft with 2 Turns (QC): 6 Walk 150 ft (QC): 6 Gait Assistive Device: FWW Does the Pt use WC or Scooter?: No Stairs (FIM): 5 # of Steps: 4 1 Step (curb) (QC): 6 4 Steps (QC): 6 12 Steps (QC): 9 Picking up an Object (QC): 9 PT Plan Problem List Problem List: Activity Tolerance, Functional Strength, Safety, Balance, Gait, Transfer, Bed Mobility Treatment/Plan Treatment Plan: Continue Plan of Care Treatment Plan: Bed Mobility, Education, Functional Activity Juan F, Functional Strength, Group Therapy, Gait, Safety, Therapeutic Exercise, Transfers Treatment Duration: Dec 29, 2018 Frequency: At least 5 of 7 days/Wk (IRF) Estimated Hrs Per Day: 1.5 hours per day Patient and/or Family Agrees t: Yes Safety Risks/Education Patient Education: Transfer Techniques, Safety Issues Teaching Recipient: Patient Teaching Methods: Demonstration, Discussion Response to Teaching: Reinforcement Needed Time/GCodes Time In: 1315 Time Out: 1345 Total Billed Treatment Time: 30 Total Billed Treatment visit FA 30 CEDRIC ALCANTARA PT Dec 01, 2018 14:24
--- NOTE | 2018-12-01 14:52 | Occupational Ther Daily Note ---
OT Current Status-Daily Note Subjective Pt lying in bed, alert. Pt agrees to therapy. Pt c/o being tired though is ready to try. Mental Status/Objective Patient Orientation: Person, Place, Time, Situation Therapy Code Descriptions/Definitions Functional [place] Measure: 0=Not Assessed/NA 4=Minimal Assistance 1=Total Assistance 5=Supervision or Setup 2=Maximal Assistance 6=Modified [place] 3=Moderate Assistance 7=Complete [place] ADL-Treatment Gave pt plate guard, per KNOWLEDGE ARCHITECT request. Pt then stated that she needed to use the BSC. Assist x2 for supine to EOB. EOB to standing, mod A. SPT with FWW, min A. Assist to manipulate clothing, mod A. PT took over care of pt. Pt sitting on BSC with PT present in room. All needs met in room. Therapy Code Descriptions/Definitions Functional [place] Measure: 0=Not Assessed/NA 4=Minimal Assistance 1=Total Assistance 5=Supervision or Setup 2=Maximal Assistance 6=Modified [place] 3=Moderate Assistance 7=Complete [place] Therapy Quality Codes: 6 Independent with activity with or without an assistive device 5 Patient requires set up or clean up by helper. Patient completes activity by themselves 4 Supervision or touching assist (CGA). [place] provide cues , steadying assist 3 The helper provides less than half the effort to complete the activity 2 The helper provides more than half the effort to complete the activity 1 Dependent. The helper does all the effort to complete an activity 7 Patient refused to complete or attempt activity 9 The patient did not perform the activity before the current illness or injury 88 Not attempted due to Medical conditions or safety concerns OT Short Term Goals Short Term Goals Transfers (B,C,W/C) (FIM): 4 1=Demonstrate adherence to instructed precautions during ADL tasks. 2=Patient will verbalize/demonstrate understanding of assistive devices/modifications for ADL. 3=Patient will improve strength/tolerance for activity to enable patient to perform ADL's. OT Alf Goals Sales Advisor Goals 1=Demonstrate adherence to instructed precautions during ADL tasks. 2=Patient will verbalize/demonstrate understanding of assistive devices/m odifications for ADL. 3=Patient will improve strength/tolerance for activity to enable patient to perform ADL's. OT Education/Plan Problem List/Assessment Assessment: Decreased Activ Tolerance, Impaired Coordination, Impaired Self- Care Skills Discharge Recommendations Plan/Recommendations: Continue POC Treatment Plan/Plan of Care Patient would benefit from OT for education, treatment and training to promote independence in ADL's, mobility, safety and/or upper extremity function for ADL's. Rehab Potential: Good Time/GCodes Start Time: 12:55 Stop Time: 13:15 Total Time Billed (hr/min): 20 Billed Treatment Time 1 visit-FA 1 (20 min) CEDRIC DURANT Dec 01, 2018 14:52
[2018-12-01] MEDS: PIPERACILLIN/TAZOBACTAM (BULK) 4.5 GM in NS (IVPB) 100 ML IV SCH ×2 (15:19→23:10)
--- NOTE | 2018-12-01 15:32 | Occupational Therapy Eval ---
OT Evaluation-General/PLF Medical Diagnosis Admission Date Dec 01, 2018 at 10:15 Medical Diagnosis: COPD myopathy Onset Date: Dec 01, 2018 Therapy Diagnosis Therapy Diagnosis: Weakness, Decreased ADL skills Height/Weight Height (Feet): 5 Height (Inches): 3.00 Weight (Pounds): 291 Weight (Ounces): 11.2 Precautions Precautions/Isolations: Aspiration, Fall Prevention, Standard Precautions Weight Bear Status Weight Bearing Restriction: Weight Bearing/Tolerated Referral Physician: Anamaria Referral Reason: Activity Tolerance, Self Care, Evaluation/Treatment, Strengthening/ROM Medical History Pertinent Medical History: COPD, DM, HTN, Neuropathy, Smoking Additional Medical History Depression, Colon resection, C-spine fusion, Bilateral CTR, DDD Current History Pt. has home health aide for 32 hours/week. They cook and clean for her. Pt. came in to outpt surgery for recurrent ventral incisional hernia. Reviewed History: Yes Social History Home: Apartment (senior housing in [place]) Current Living Status: Alone Entry Into Home: Level Entry Steps Inside Home: 0 ADL-Prior Level of Function Therapy Code Descriptions/Definitions Functional [place] Measure: 0=Not Assessed/NA 4=Minimal Assistance 1=Total Assistance 5=Supervision or Setup 2=Maximal Assistance 6=Modified [place] 3=Moderate Assistance 7=Complete [place] Therapy Quality Codes: 6 Independent with activity with or without an assistive device 5 Patient requires set up or clean up by helper. Patient completes activity by themselves 4 Supervision or touching assist (CGA). [place] provide cues , steadying assist 3 The helper provides less than half the effort to complete the activity 2 The helper provides more than half the effort to complete the activity 1 Dependent. The helper does all the effort to complete an activity 7 Patient refused to complete or attempt activity 9 The patient did not perform the activity before the current illness or injury 88 Not attempted due to Medical conditions or safety concerns Functional Abilities and Goals: Independent: Patient completed the activities by him/herself, with or without an assistive device, with no assistance from a helper. Needed Some Help: Patient needed partial assistance from another person to complete activities. Dependent: A helper completed the activities for the patient. Unknown: Not Applicable: ADL PLOF Comments Pt. states that she was independent with daily tasks for ADL skills. Receives assist to cook and clean her apartment. Self Care: Unknown Functional Cognition: Unknown DME/Equipment: Bath Chair, Shower DME/Equipment Comments Pt. has walker at home. No wheelchair. Drive Self: Yes OT Current Status Subjective No pain reported. Pt. does report feeling weak. Appearance Pt. in bed. Agrees to treatment. Mental Status/Objective Patient Orientation: Person, Place Attachments: IV, Oxygen Current Hand Dominance: Right Upper Extremity ROM Limited in shoulders due to arthritis. WFL in all other planes. ADL-Treatment Grooming (FIM): 2 (Max assist to brush hair due to UE weakness.) Bathing (FIM): 2 (Pt. requires assistance to wash most parts. Pt. is able to wash face and lower arms. Unable to fully reach under arms, martha area, and feet.) Shower/Bathe Self (QC): 2 Lower Body Dressing (FIM): 1 Lower Body Dressing (QC): 1 On/Off Footwear (QC): 1 Transfers (B, C, W/C) (FIM): 1 (Max assist x 2 supine-sit, and sit-supine.) Education OT Patient Education: Correct positioning, Modified ADL techniques, Progress toward Goal/Update tx plan, Purpose of tx/functional activities, Reviewed precautions, Rehab process, Transfer techniques Teaching Recipient: Patient Teaching Methods: Demonstration, Discussion Response to Teaching: Verbalize Understanding, Return Demonstration OT Short Term Goals Short Term Goals Time Frame: Dec 08, 2018 Eating(FIM): 5 Grooming(FIM): 5 Bathing(FIM): 4 Upper Body Dressing(FIM): 4 Lower Body Dressing(FIM): 3 Toileting(FIM): 3 Transfers (B,C,W/C) (FIM): 4 Toilet/Commode Transfer(FIM): 4 Shower Transfer(FIM): 4 Additional Short Term Goals: 1-Demonstrate ADL Tasks, 2-Verbalize Understanding, 3-ImproveStrength/Juan F 1=Demonstrate adherence to instructed precautions during ADL tasks. 2=Patient will verbalize/demonstrate understanding of assistive devices/modifications for ADL. 3=Patient will improve strength/tolerance for activity to enable patient to perform ADL's. OT Custodial Goals House Coordinator Goals Time Frame: Dec 22, 2018 Eating (FIM): 6 Eating (QC): 6 Groomin Oral Hygiene (QC): 6 Bathing(FIM): 5 Shower/Bathe Self (QC): 4 Upper Body Dressing(FIM): 5 Upper Body Dressing (QC): 4 Lower Body Dressing(FIM): 5 Lower Body Dressing (QC): 4 On/Off Footwear (QC): 4 Toileting(FIM): 6 Toileting Hygiene (QC): 6 Transfers (B,C,W/C) (FIM): 6 Toilet/Commode Transfer(FIM): 6 Toilet/Commode Transfer (QC): 6 Shower Transfer(FIM): 5 Additional Goals: 1-Demonstrate ADL Tasks, 2-Verbalize Understanding, 3- ImproveStrength/Juan F 1=Demonstrate adherence to instructed precautions during ADL tasks. 2=Patient will verbalize/demonstrate understanding of assistive devices/modifications for ADL. 3=Patient will improve strength/tolerance for activity to enable patient to perform ADL's. OT Education/Plan Problem List/Assessment Assessment: Decreased Activ Tolerance, Decreased UE Strength, Dependent Transfers, Impaired Bed Mobility, Impaired Funct Balance, Impaired I ADL's, Impaired Self-Care Skills, Restricted Funct UE ROM Discharge Recommendations Plan/Recommendations: Continue POC Therapy D/C Recommendations: Home w/ Family Support, Occupational Therapy Home Care, Scheduled Assistance Equpiment Recommendations-D/C: Hip Kit Treatment Plan/Plan of Care Treatment,Training & Education: Yes Patient would benefit from OT for education, treatment and training to promote independence in ADL's, mobility, safety and/or upper extremity function for ADL's. Plan of Care: ADL Retraining, Functional Mobility, Group Exercise/Act as Ind, UE Funct Exercise/Act Treatment Duration: Dec 22, 2018 Frequency: At least 5 of 7 days/Wk (IRF) Estimated Hrs Per Day: 1.5 hours per day Agreement: Yes Rehab Potential: Good Time/GCodes Start Time: 11:10 Stop Time: 12:10 Total Time Billed (hr/min): 60 Billed Treatment Time 1, EVH x 15minutes, ADL x 45minutes CHARLENE LEE OT Dec 01, 2018 15:32
--- NOTE | 2018-12-01 15:37 | ST Cognitive Linguistic Eval ---
Speech Evaluation-General Medical Diagnosis COPD myopathy Onset Date: Dec 01, 2018 Therapy Diagnosis Therapy Diagnosis: Cognitive-communication Precautions Precautions: Aspiration Precautions/Isolations: Aspiration, Fall Prevention, Standard Precautions Referral Referring Physician: Dr. Conrad Reason for Referral: Evaluation/Treatment Medical History Pertinent Medical History: COPD, DM, HTN, Neuropathy, Smoking COPD, DM, HTN, Neuropathy, Smoking Current History COPD myopathy Reviewed History: Yes Social History Home: Single Level Current Living Status: Alone Speech PLF-Current Status Prior Level of Function The patient lives alone and was independent for her daily needs. Subjective The patient was pleasant and compliant with the cognitive evaluation. Language Eval: Auditory Comprehends Simple Yes/No Ques: Functional Indent/Objects [place]: Functional Ident/Pics in [place]: Functional Follows 1-Step Commands: Functional Follows Complex Directions: Functional Follows General Conversations: Functional Language Eval: Verbal Language Completes Spontaneous Greeting: Functional Produces Auto, Serial Info: Functional Imitates Simple Words/Phrases: Functional Word Finding: Functional Requests Basic Needs: Functional States Basic Personal Info: Functional Expresses Complex Ideas: Functional Objective Cognitive Domain Attention: WNL Memory: Mild Problem Solving: Functional Executive Functions: WNL Visuospatial Skills: WNL Composite Severity Rating: WNL Clock Drawing Severity Rating: WNL Objective Formal/Standardized Tests [facility] Mental Status ([facility]) Results 27/30, within normal range of function Oral Motor/Speech Production Within Functional Limits Impression The patient is a 63 year old female who was admitted to the [facility] s/p surgery for strengthening and medical monitoring. The patient completed the SLUMS at bedside with a score of 27/30 which is within the normal range of function. The patient does not require cognitive therapy at this time. Communication/Social Cognition Comprehension: 7 Expression: 7 Social Interaction: 7 Problem Solvin Memory: 6 Speech Patient Assess Expression of Ideas/Wants: Expression (4) Understanding Verbal Content: Understands (4) Brief Interview-Mental Status: Yes Repetition of Three Words: Three (3) Temporal Orientation: Year: Correct (3) Temporal Orientation: Month: Accurate within 5 days(2) Temporal Orientation: Day: Correct (1) Recall : Wear to say "Sock": Yes, no cue required (2) Recall : Color: Yes, after cueing (1) Recall : Bed: Yes,after cueing (1) Memory/Recall Ability: Current season, That he or she is in a hsp/hsp unit Speech Short Term Goals Short Term Goals Short Term Goals 1) The patient will tolerate least restrictive diet level without s/s of aspiration at 90% or greater. 2) The patient will utilize compensatory strategies as trained for safe oral intake at 90% or greater given minimal verbal cues. Speech Custodial Goals Custodial Goals The patient will maintain adequate nutrition/hydration via safe effective swallow function. Speech-Plan Patient/Family Goals Patient/Family Goals: The patient plans on returning home alone post rehab. Treatment Plan Speech Therapy Treatment Plan: Discontinue ST The patient does not warrant skilled cognitive therapy at this time. Treatment Duration: Dec 01, 2018 Frequency: 1 time per week Estimated Hrs Per Day: .25 hour per day Rehab Potential: Good Barriers to Learning: None identified Pt/Family Agrees to Plan: Yes Safety Risks/Education Teaching Recipient: Patient Teaching Methods: Discussion Response to Teaching: Verbalize Understanding Education Topics Provided: Safety within her room. Time Speech Therapy Time In: 15:15 Speech Therapy Time Out: 15:30 Total Billed Time: 15 Billed Treatment Time 1, ANTHONY Hennessy Dec 01, 2018 15:37
[2018-12-01 15:58] VITALS: BP 143/80
[2018-12-01] MEDS: CLINDAMYCIN 600 MG/50 ML IVPB 50 ML IV SCH (17:08)
[2018-12-01] MEDS: SODIUM CHLORIDE IV SCH ×11 (17:14)
[2018-12-01] MEDS: [UNRECOGNIZED DRUG - OTHER] IV SCH ×11 (17:14)
[2018-12-01] MEDS: POTASSIUM CHLORIDE IV SCH ×11 (17:14)
[2018-12-01] MEDS: inSUlin ASPART (NovoLOG) 1 UNIT/0.01 ML (CHARGE PER UNIT) SC SCH ×2 (19:31→23:44)
[2018-12-01] MEDS: RT-ADVAIR HFA 115/21 MCG PER PUFF IH SCH (19:33)
--- NOTE | 2018-12-01 20:01 | PM&R H&P / Post Admit Assess ---
History of Present Illness HPI/Chief Complaint Chief complaint: Disuse myopathy. HPI: This is a 63yoWF [facility] Pt known to me from last week hospital admission when she required intubation for acute on chronic respiratory failure with obesity-hypoventilation syndrome following hernia repair. She was able to be extubated without complication and continued to be on high flow oxygen and had suffered these issues following an uncomplicated ventral hernia surgery. Due to her morbid obesity and likely chronic CO2 retention she went into respiratory failure, had significant difficulties with multisystem organ dysfunction and was eventually able to move down to fourth floor but repeat CT scam obtained due to elevated white count per Dr. Olvera showed some sort of fistula. 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 She remained on TPN, clear liquid diet only and IV antibiotics to help heal that area. At this current time, the Pt is denying any pain and is getting around better since she was living independently and ambulating at home. The goal is to return to near prior level of function and be able to return back to independent level of living. Source: patient, RN/MD, old records Exam Limitations: no limitations Date Seen 12/01/18 Time Seen by a Provider: 12:45 Attending Physician Dang Licea DO PCP Cassius Francois MD Referring Physician Date of Admission Dec 01, 2018 at 10:15 Home Medications & Allergies Home Medications Reviewed patient Home Medication Reconciliation performed by pharmacy medication reconciliations central supply technician supervisor and/or nursing. Patients Allergies have been reviewed. Allergies Allergies Coded Allergies No Known Drug Allergies (Unverified11/16/18) Past Ycazthl-Fwwvdw-Zyaizn Hx Past Med/Social Hx: Reviewed Nursing Past Med/Soc Hx, Reviewed and Corrections made Patient Social History Marrital Status: Employed/Student: unemployed Alcohol Use: Occasionally Uses Recreational Drug Use: No Drug of Choice: Marijuana Smoking Status: Light Tobacco Smoker Type Used: Cigarettes 2nd Hand Smoke Exposure: Yes Physical Abuse Screen: No Sexual Abuse: No Recent Foreign Travel: No Contact w/other who traveled: No Recent Hopitalizations: Yes ( FOR C-DIFF) Recent Infectious Disease Expo: No Immunizations Up To Date Tetanus Booster (TDap): More than 5yrs Date of Pneumonia Vaccine: Apr 12, 2013 Date of Influenza Vaccine: Jan 17, 2018 Seasonal Allergies Seasonal Allergies: No Past Medical History Surgeries: Section, Orthopedic Respiratory: COPD, Emphysema, Sleep Apnea Currently Using CPAP: No Currently Using BIPAP: Yes Cardiac: High Cholesterol, Hypertension Neurological: Neuropathy 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: No Sexually Transmitted Disease: No HIV/AIDS: No Female 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 Disorders: Denies Genitourinary: Kidney Stones, Renal Failure Gastrointestinal: Chronic Constipation, Diverticulosis Musculoskeletal: Degenerate Disk Disease, Fibromyalgia, Chronic Back Pain Endocrine: Diabetes, Non-Insulin dep Loss of Vision: Denies Hearing Impairment: Denies, Hard of Hearing Psychosocial: Depression History of Blood Disorders: No Adverse Reaction to Blood Guerra: No (N/A) Family History Arthritis 19 FATHER Cardiovascular disease 19 FATHER Completed stroke 19 MOTHER Diabetes mellitus 19 FATHER Hypertension 19 FATHER G8 SISTER Myocardial infarction 19 FATHER Respiratory disorder 19 MOTHER No Pertinent Family Hx Review of Systems Constitutional: see HPI, weakness EENTM: no symptoms reported Respiratory: dyspnea on exertion Cardiovascular: no symptoms reported Gastrointestinal: abdominal pain (LLQ) Genitourinary: other (major cath) Musculoskeletal: back pain Skin: no symptoms reported Psychiatric/Neurological: No Symptoms Reported All Other Systems Reviewed Negative Unless Noted: Yes Physical Exam Exam Vital Signs Vital Signs Date Time Temp Pulse Resp B/P (MAP) Pulse Ox O2 Delivery O2 Flow Rate FiO2 12/01/18 19:34 95 Nasal Cannula 3.00 12/01/18 15:58 97.1 75 16 143/80 (101) Capillary Refill : General Appearance: No Apparent Distress, WD/WN, Chronically ill, Obese HEENT: PERRL/EOMI, Normal ENT Inspection, Pharynx Normal, Moist Mucous Membranes Neck: Full Range of Motion, Normal Inspection, Non Tender, Supple Respiratory: Chest Non Tender, Lungs Clear, No Accessory Muscle Use, No Respiratory Distress, Decreased Breath Sounds Cardiovascular: Regular Rate, Rhythm, No Edema, No Gallop, No JVD, No Murmur Gastrointestinal: Normal Bowel Sounds, No Organomegaly, No Pulsatile Mass, Soft, Tenderness, Other (fistula) Back: Normal Inspection, No CVA Tenderness, No Vertebral Tenderness Extremity: Normal Capillary Refill, Normal Inspection, Normal Range of Motion, Non Tender, No Calf Tenderness, No Pedal Edema Neurologic/Psychiatric: Alert, Oriented x3, No Motor/Sensory Deficits, Normal Mood/Affect Skin: Normal Color, Warm/Dry Lymphatic: No Adenopathy Results Results/Procedures Labs Patient resulted labs reviewed. Assessment/Plan Assessment and Plan Assess & Plan/Chief Complaint Plan: IRF protocol OOB TPN Advance diet if ok with Dr Olvera Restart previous 4th floor meds O2 PLOF was ambulating at home (1) Myopathy (2) COPD (chronic obstructive pulmonary disease) Status: Chronic (3) Obesity hypoventilation syndrome Status: Chronic (4) Ventilator dependence Status: Resolved Resolution Date/Time: 11/25/18 @ 20:44 (5) Hypokalemia Status: Acute (6) Enterocutaneous fistula Status: Acute (7) On total parenteral nutrition (TPN) Status: Acute (8) BRAYAN treated with BiPAP Status: Chronic (9) Diabetes mellitus, type 2 Status: Chronic (10) Smoker Status: Chronic Post Admission Physician Asses Date seen by provider: Dec 01, 2018 Time seen by provider: 12:45 Admisison Dx: (1) Myopathy The preadmission screen agrees with the post admission assessment that the patient is a good candidate for inpatient rehabilitation. The patient will have a comprehensive program of inpatient rehabilitation with a goal of maximizing level of functional independence prior to discharge home with family. The patient will have PT/OT ninety minutes per day, each discipline, five days a week for gait, strengthening, conditioning, balance, ADLs, any patient/family/caregiver training as necessary. Speech therapy to do cognitive assessment and treat as indicated. Rehabilitation nursing to assist with bowel, bladder, skin, wound care, medication administration, pain management. Laminated Plastics Assembler And Gluer to assist with discharge planning, community reentry. SCD's for DVT prophylaxis. She appears to be well motivated to participate in three hours of therapy a day. She should be able to tolerate three hours of therapy a day from a medical standpoint. She should benefit from the three hours of therapy a day. She has a reasonable discharge plan, reasonable discharge rehabilitation goals and a supportive family. She has various comorbidities that need to be closely monit ored with medications and treatments adjusted on a daily basis as needed. These include: see list Barriers to discharge for this patient who had been independent prior to this are for her to be modified independent to supervision for ADLs and mobility sk ills prior to discharge home with family, so as to lessen the burden of the caregivers. Risks for this patient include: 1. Fall 2. Fracture 3. DVT 4. Pulmonary embolism 5. Wound infection 6. Skin breakdown 7. Contractures 8. Poorly controlled pain 9. Urinary retention 10. UTI 11. Respiratory infection 12. Aspiration Estimated Length of Stay: 14 days Prognosis: Rehab prognosis appears good for goal of discharge home with family modified independent to supervision for ADLs and mobility skills. DANG LICEA DO Dec 01, 2018 20:01
--- NOTE | 2018-12-01 20:09 | Individualized Plan of Care ---
Individualized Plan of Care Rehab Nursing IPOC Order Admission Date Dec 01, 2018 at 10:15 Current Orders Orders Admission Order(Inpt,Obs,Sdc) (12/01/18 09:26) Vital Signs: Per Unit Policy ( 08,16,00 (12/01/18 09:26) Reinforcing Iron Worker Helper-Inpt Rehab Con (12/01/18 09:26) Rehab Nursing Orders-Ipoc (12/01/18:26) Physical Therapy Rehab Orders (12/01/18:) Occupational Therapy Rehab Ord (12/01/18:26) Speech Therapy Rehab Orders (12/01/18:) Intake & Output ,, (12/01/18:26) Precautions (Aru) (12/01/18:) Weekly Weight (Lbs) WEEK (12/01/18:26) Rehab-Intensity Of Therapy (12/01/18:26) Cho 60g/M 3snack (16-2000 Calos) (12/01/18 Lunch) Initiate Admission Nursing Pro .admission (12/01/18 09:26) Admission Arrival Bed Request (12/01/18 10:15) Ambulate 08,, (12/01/18 11:53) Sequential Compression Device (12/01/18 11:53) Dvt/Vte Risk - Notifiy Physici .ONCE (12/01/18 11:53) Code/Resuscitation (12/01/18 12:49) Oxygen-Administer (12/01/18 12:49) Sequential Compression Device (12/01/18 12:49) Wound V.A.C Nursing Assessment ,18 (12/01/18 12:49) Dys1 Pureed (12/01/18 Dinner) Albuterol/Ipra Inhalation Soln (Duoneb I (12/01/18 13:00) Atorvastatin Tablet (Lipitor) (12/01/18 21:00) Clindamycin 600 Mg/50 Ml Ivpb (Cleocin P (12/01/18 17:00) Cholecalciferol Capsule/Tablet (Vitamin (12/02/18 09:00) Fluconazole 200 Mg/100 Ml (Diflucan Iv) (12/02/18 09:00) Duloxetine Capsule (Cymbalta Capsule) (12/02/18 09:00) Docusate Sodium Capsule (Colace Capsule) (12/01/18 21:00) Enoxaparin Injection (Lovenox Injection) (12/01/18 22:00) Fluticasone/Salmeterol Common (Advair 11 (12/01/18 20:00) Furosemide Tablet (Lasix Tablet) (12/02/18 09:00) Iv Misc (Tpn) (12/01/18 13:00) Linagliptin Tablet (Tradjenta Tablet) (12/02/18 09:00) Magnesium Oxide Tablet (Mag Ox Tablet) (12/02/18 09:00) Ns (Ivpb) (Sodium C... W/Octreotide Inj (12/01/18 13:00) Casanova 3 Capsule (Fish Oil Capsule) (12/02/18 09:00) Piperacillin/Tazobactam (Bulk) (Zosyn In (12/01/18 16:00) Sodium Chloride 14.6% Inj (Sodium Chlori (12/01/18 17:00) Acetaminophen Tablet/Caplet (Tylenol T (12/01/18 13:00) Ondansetron Injection (Zofran Injectio (12/01/18 13:00) Amlodipine Tablet (Norvasc Tablet) (12/02/18 09:00) Bupropion Sr 12 Hr Tablet (Wellbutrin Sr (12/02/18 09:00) Fentanyl Injection (Sublimaze Injection (12/01/18 13:00) Hydralazine Injection (Apresoline Inject (12/01/18 13:00) Insulin Aspart (Novolog) (Novolog (Charg (12/01/18 18:00) Insulin Determir (Per Unit) (Levemir (Pe (12/01/18 21:00) Lisinopril Tablet (Zestril Tablet) (12/02/18 09:00) Metoprolol Tartrate (Ir) Tab (Lopressor (12/01/18 13:00) Tramadol Tablet (Ultram Tablet) (12/01/18 13:00) Bipap (Bilevel) Set Up (12/01/18 12:49) Communication For Respiratory (12/01/18 12:49) Consult Cardiology (12/01/18 12:49) Consult Pulmonology (12/01/18 12:49) Incentive Spirometry Initial (12/01/18 12:49) Mdi Treatment (12/01/18 12:49) Rt Request For Service (12/01/18 12:49) Svn Small Volume Nebulizer (12/01/18 12:49) Mdi Treatment (12/01/18 12:49) Incentive Spirometry (Nursing) Q2H (12/01/18 12:49) Patient Visit (12/01/18 ) Pt Eval Moderate Complexity (12/01/18 ) Functional Activities, Ea 15 (12/01/18 ) Patient Visit (12/01/18 ) Dysphagia Evaluation Std (12/01/18 ) Patient Visit (12/01/18 ) Speech Sound Lang Comp (12/01/18 ) Rehab Nursing Orders: Ongoing Assess. of Cognitive Status, Ongoing Assess. of Function Status, Bladder Management, Bladder Scan, Bladder Training, Bowel Management, Bowel Training, Disease Management & Educaiton, DVT Prophylaxis, Fall Prevention, Fluid/Electrolyte/Nutrition Mgmt, Infection Prevention, Medication Management & Education, Management of Risks & Complications, Management of Skin Intergrity, Nutrition Management, Pain Management, Patient/Family Support, Safety Management, Swallow Precautions, Wound Management Intensity of Therapy to be met Patient to be seen: 15 hrs over 7 cons. days PT IPOC Problem List: Activity Tolerance, Functional Strength, Safety, Balance, Gait, Transfer, Bed Mobility Treatment Plan: Continue Plan of Care Bed Mobility, Education, Functional Activity Juan F, Functional Strength, Group Therapy, Gait, Safety, Therapeutic Exercise, Transfers Treatment Duration: Dec 29, 2018 Frequency: At least 5 of 7 days/Wk (IRF) Estimated Hrs Per Day: 1.5 hours per day OT IPOC Problems: Decreased Activ Tolerance, Decreased UE Strength, Dependent Transfers, Impaired Bed Mobility, Impaired Funct Balance, Impaired I ADL's, Impaired Self-Care Skills, Restricted Funct UE ROM OT Treatment, Training and Edu: Yes Plan of Care: ADL Retraining, Functional Mobility, Group Exercise/Act as Ind, UE Funct Exercise/Act Treatment Duration: Dec 22, 2018 Frequency: At least 5 of 7 days/Wk (IRF) Estimated Hrs Per Day: 1.[address] IPOC Speech Therapy Treatment Plan: Discontinue ST Treatment Duration: Dec 01, 2018 Frequency: 1 time per week Estimated Hrs Per Day: .25 hour per day Reinforcing Iron Worker Helper/Case Mgmt Reinforcing Iron Worker Helper/Case Managemen: Discharge Planning Dietitian/Company Accountant Dietitian/Company Accountant to monitor nutritional status and make changes and/or recommendations as needed and work with speech pathology on dietary upgrades as the occur. Physician IPOC Medical Issues being managed closely and that require the 24 hour availability of a physician: Enterocutaneous fistula with be monitored for infection and further complications and patient at high risk for respiratory failure due to obesity hypoventilation syndrome. Medical Issues: Bowel/Bladder Function, DVT Prophylaxis, Falls Precautions, Fluid/Electrolyte/Nutrition Balance, Infection Protection, Pain Management, Swallowing Precautions, Wound Care Brief Synthesis of Preadmission Screen, Post-Admission Evaluation, and Therapy Evaluations: PT will focus on transfers and standing and ambulation with assistive devices OT will help regain independent ADL's ST will work on swallowing Medical Prognosis: Good Anticipated Length of Stay: 14 days ALEIDA LICEA DO Dec 01, 2018 20:09
[2018-12-01] MEDS ORDERED: CALCIUM CARBONATE 500 MG (TUMS) TAB.CHEW PO PRN (20:15)
[2018-12-01] MEDS ORDERED: ALPRAZolam 0.25 MG (XANAX) TAB PO PRN (20:15)
[2018-12-01] MEDS ORDERED: diphenhydrAMINE 25 MG TAB (BENADRYL) PO PRN (20:15)
[2018-12-01] MEDS: SENNA W/DOCUSATE (SENOKOT S) TABLET PO SCH (21:36)
[2018-12-01] MEDS: DOCUSATE SODIUM 100 MG (COLACE) CAP PO SCH (21:36)
[2018-12-01] MEDS: ENOXAPARIN 60 MG/0.6 ML (LOVENOX) SYR SC SCH (21:36)
[2018-12-02] MEDS: CLINDAMYCIN 600 MG/50 ML IVPB 50 ML IV SCH (02:35)
[2018-12-02 05:09] VITALS: BP 123/72
[2018-12-02 05:54] LABS: BASOPHILS # (AUTO) 0.2 10^3/uL (0.0-0.1); BASOPHILS % (AUTO) 1 % (0-10); EOSINOPHILS # (AUTO) 0.4 10^3/uL (0.0-0.3); EOSINOPHILS % (AUTO) 3 % (0-10); HEMATOCRIT 35 % (35-52); HEMOGLOBIN 10.8 G/DL (11.5-16.0); LYMPHOCYTES # (AUTO) 2.2 X 10^3 (1.0-4.0); LYMPHOCYTES % (AUTO) 14 % (12-44); MEAN CORPUSCULAR HEMOGLOBIN 28 PG (25-34); MEAN CORPUSCULAR HGB CONC 31 G/DL (32-36); MEAN CORPUSCULAR VOLUME 92 FL (80-99); MEAN PLATELET VOLUME 9.7 FL (7.4-10.4); MONOCYTES # (AUTO) 2.2 X 10^3 (0.0-1.0); MONOCYTES % (AUTO) 14 % (0-12); NEUTROPHILS # (AUTO) 10.9 X 10^3 (1.8-7.8); NEUTROPHILS % (AUTO) 69 % (42-75); PLATELET COUNT 331 10^3/uL (130-400); RED CELL DISTRIBUTION WIDTH 15.9 % (10.0-14.5); WHITE BLOOD COUNT 15.8 10^3/uL (4.3-11.0)
[2018-12-02 06:13] LABS: ALANINE AMINOTRANSFERASE 14 U/L (0-55); ALBUMIN 3.2 GM/DL (3.2-4.5); ALKALINE PHOSPHATASE 67 U/L (40-136); BILIRUBIN,TOTAL 0.4 MG/DL (0.1-1.0); BUN/CREATININE RATIO 34; CALCIUM 8.7 MG/DL (8.5-10.1); CARBON DIOXIDE 24 MMOL/L (21-32); CHLORIDE 106 MMOL/L (98-107); CREATININE SERUM 0.87 MG/DL (0.60-1.30); GFR ESTIMATED > 60; GLUCOSE 169 MG/DL (70-105); POTASSIUM 4.5 MMOL/L (3.6-5.0); SODIUM 140 MMOL/L (135-145)
[2018-12-02] MEDS: inSUlin ASPART (NovoLOG) 1 UNIT/0.01 ML (CHARGE PER UNIT) SC SCH ×3 (06:13→17:59)
[2018-12-02] MEDS: FLUCONAZOLE 200 MG/100 ML 50 ML, EMPTY IV BAG (PVC) 1 EA IV SCH ×2 (09:23)
[2018-12-02] MEDS: OCTREOTIDE INJECTION 500 MCG in NS (IVPB) 97.5 ML IV SCH ×2 (09:24→18:46)
[2018-12-02] MEDS: PIPERACILLIN/TAZOBACTAM (BULK) 4.5 GM in NS (IVPB) 100 ML IV SCH ×2 (09:24→16:49)
[2018-12-02] MEDS: buPROPion SR 150 MG (WELLBUTRIN SR) TAB PO SCH (09:25)
[2018-12-02] MEDS: DULoxetine 30 MG (CYMBALTA) CAP PO SCH (09:25)
[2018-12-02] MEDS: LINAGLIPTIN (TRADJENTA) 5 MG TABLET PO SCH (09:25)
[2018-12-02] MEDS: OMEGA 3 (FISH OIL) 1000 MG CAP PO SCH (09:25)
[2018-12-02] MEDS: FUROSEMIDE 20 MG (LASIX) TAB PO SCH (09:26)
[2018-12-02] MEDS: lisINopril 20 MG (PRINIVIL) TABLET PO SCH (09:26)
[2018-12-02] MEDS: MAGNESIUM OXIDE (MAG-OX)400 MG TAB PO SCH (09:26)
[2018-12-02] MEDS: SENNA W/DOCUSATE (SENOKOT S) TABLET PO SCH ×2 (09:26→21:19)
[2018-12-02] MEDS: meTOprolol TARTRATE 25 MG (LOPRESSOR) TABLET PO SCH ×3 (09:26→21:13)
[2018-12-02] MEDS: amLODIPine 10 MG (NORVASC) TAB PO SCH (09:26)
[2018-12-02] MEDS: VITAMIN D3 5,000 UNITS (CHOLECALCIFEROL ) CAPSULE PO SCH (09:26)
[2018-12-02] MEDS: ENOXAPARIN 60 MG/0.6 ML (LOVENOX) SYR SC SCH ×2 (09:27→22:14)
[2018-12-02] MEDS: DOCUSATE SODIUM 100 MG (COLACE) CAP PO SCH ×2 (09:45→21:19)
--- NOTE | 2018-12-02 10:02 | PM&R Progress Note ---
Subjective HPI/CC On Admission Date Seen by Provider: Dec 02, 2018 Time Seen by Provider: 09:45 Chief complaint: Disuse myopathy. HPI: This is a 63yoWF [facility] Pt known to me from last week hospital admission when she required intubation for acute on chronic respiratory failure with obesity-hypoventilation syndrome following hernia repair. She was able to be extubated without complication and continued to be on high flow oxygen and had suffered these issues following an uncomplicated ventral hernia surgery. Due to her morbid obesity and likely chronic CO2 retention she went into respiratory failure, had significant difficulties with multisystem organ dysfunction and was eventually able to move down to fourth floor but repeat CT scam obtained due to elevated white count per Dr. Olvera showed some sort of fistula. 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 She remained on TPN, clear liquid diet only and IV antibiotics to help heal that area. At this current time, the Pt is denying any pain and is getting around better since she was living independently and ambulating at home. The goal is to return to near prior level of function and be able to return back to independent level of living. Subjective/Events-last exam Patient doing well Having liquid stool so does not need laxatives Holding bowel movement regimen Nicotine patch has been requested by the patient Site of ostomy appears to be irritated but that could be ostomy bag changes also White count remains elevated at 15.8 Check meds and labs General surgery will check ostomy and provide wound care daily Conferred with RN Reviewed therapy notes Review of Systems General: Fatigue Pulmonary: Dyspnea Gastrointestinal: Abdominal Pain Objective Exam Vital Signs Vital Signs Date Time Temp Pulse Resp B/P (MAP) Pulse Ox O2 Delivery O2 Flow Rate FiO2 12/02/18 19:34 96 High Flow N/C 5.00 12/02/18 16:45 98.6 81 16 138/84 (102) Capillary Refill : General Appearance: No Apparent Distress, WD/WN, Chronically ill, Obese HEENT: PERRL/EOMI, Normal ENT Inspection, Pharynx Normal, Moist Mucous Membranes Neck: Full Range of Motion, Normal Inspection, Non Tender, Supple Respiratory: Chest Non Tender, Lungs Clear, No Accessory Muscle Use, No Respiratory Distress, Decreased Breath Sounds Cardiovascular: Regular Rate, Rhythm, No Edema, No Gallop, No JVD, No Murmur Gastrointestinal: Normal Bowel Sounds, No Organomegaly, No Pulsatile Mass, Soft, Tenderness, Other (fistula) Back: Normal Inspection, No CVA Tenderness, No Vertebral Tenderness Extremity: Normal Capillary Refill, Normal Inspection, Normal Range of Motion, Non Tender, No Calf Tenderness, No Pedal Edema Neurologic/Psychiatric: Alert, Oriented x3, No Motor/Sensory Deficits, Normal Mood/Affect Skin: Normal Color, Warm/Dry Lymphatic: No Adenopathy Results/Procedures Lab Laboratory Tests 12/02/18 05:40 Patient resulted labs reviewed. FIM Transfers Therapy Code Descriptions/Definitions Functional [place] Measure: 0=Not Assessed/NA 4=Minimal Assistance 1=Total Assistance 5=Supervision or Setup 2=Maximal Assistance 6=Modified [place] 3=Moderate Assistance 7=Complete [place] Therapy Quality Codes: 6 Independent with activity with or without an assistive device 5 Patient requires set up or clean up by helper. Patient completes activity by themselves 4 Supervision or touching assist (CGA). [place] provide cues , steadying assist 3 The helper provides less than half the effort to complete the activity 2 The helper provides more than half the effort to complete the activity 1 Dependent. The helper does all the effort to complete an activity 7 Patient refused to complete or attempt activity 9 The patient did not perform the activity before the current illness or injury 88 Not attempted due to Medical conditions or safety concerns Transfers (B, C, W/C) (FIM): 1 (Max assist x 2 supine-sit, and sit-supine.) Scootin (assist of 2 to scoot but pt is able to assist) Rollin Roll Left to Right (QC): 3 Supine to/from Sit: 3 (assist with both legs to get into bed) Sit to/from Stand: 3 (mod assist to come to a full stand from standard height surface) Sit to Lying (QC): 3 Sit to Stand (QC): 3 Chair/Tpv-yw-Hiolp Xfer(QC): 4 Bed to/from Chair: 4 Car Transfer (QC): 88 (Unsafe to attempt car transfer at this time. ) Gait Training Does the Patient Walk?: Yes Gait (FIM): 2 Distance (FIM): 1=up to 49 ft Walk 10 feet (QC): 88 Walk 50 ft with 2 Turns(QC): 88 Walk 150 ft (QC): 88 Walking 10ft/uneven surface-QC: 88 Gait Level of Assist: 4 Gait Persons Needed: 2 Gait Assistive Device: FWW Wheelchair Training Does the Pt Use a Wheelchair?: No Stair Training Stairs (FIM): 0 #of Steps: 0 1 Step (curb) (QC): 88 4 Steps (QC): 88 12 Steps (QC): 88 Balance Picking up an Object (QC): 88 Mental Status/Objective Comprehension: 7 Expression: 7 Social Interaction: 7 Problem Solvin Memory: 6 ADL-Treatment Groomin (Max assist to brush hair due to UE weakness.) Bathin (Pt. requires assistance to wash most parts. Pt. is able to wash face and lower arms. Unable to fully reach under arms, martha area, and feet.) Shower/Bathe Self (QC): 2 Lower Extremity Dressin Lower Body Dressing (QC): 1 On/Off Footwear (QC): 1 Assessment/Plan Assessment and Plan Assess & Plan/Chief Complaint Plan: IRF protocol OOB TPN Advance diet if ok with Dr Olvera Resta previous 4th floor meds O2 PLOF was ambulating at home Hold BM regimen due to loose stools Ostomy care per surgical service (1) Myopathy (2) COPD (chronic obstructive pulmonary disease) Status: Chronic Qualifiers: COPD type: unspecified COPD Qualified Codes: J44.9 - Chronic obstructive pulmonary disease, unspecified (3) Hypokalemia Status: Acute (4) Diabetes mellitus, type 2 Status: Chronic Qualifiers: Diabetes mellitus terminal carman insulin use: with detention use Diabetes mellitus complication status: with other specified complication Qualified Codes: E11.69 - Type 2 diabetes mellitus with other specified complication; Z79.4 - group home (current) use of insulin (5) Ventilator dependence Status: Resolved Resolution Date/Time: 11/25/18 @ 20:44 (6) Enterocutaneous fistula Status: Acute (7) Obesity hypoventilation syndrome Status: Chronic (8) On total parenteral nutrition (TPN) Status: Acute (9) BRAYAN treated with BiPAP Status: Chronic (10) Smoker Status: Chronic ALEIDA LICEA DO Dec 02, 2018 10:02
--- NOTE | 2018-12-02 10:38 | Progress Note - Hospitalist ---
RADHA CALDWELL [facility] 12/02/18 1038: Progress Note Ms David had no acute events overnight Elevated BUN with normal Cr on CMP - likely 2/2 TPN - continue to monitor Consult Dr. Olvera for daily checks on the osteomy DANG CONRAD DO 12/02/18 2119: Supervisory-Addendum Brief Verification & Attestation Participated in pt care: history, MDM, physical Personally performed: exam, history, MDM, supervision of care Care discussed with: Medical Student Procedures: n/a Results interpretation: Verified all documentation Verification and Attestation of Medical Student E/M Service A medical student performed and documented this service in my presence. I reviewed and verified all information documented by the medical student and made modifications to such information, when appropriate. I personally performed the physical exam and medical decision making. Dang Conrad, Dec 02, 2018,21:19 RADHA CALDWELL [facility] Dec 02, 2018 10:38 DANG CONRAD DO Dec 02, 2018 21:19
--- NOTE | 2018-12-02 10:41 | Occupational Ther Daily Note ---
OT Current Status-Daily Note Subjective pt agreed to OT TX session with focus on increasing indep with LB dressing, energy conservation, and UE strength. pt reports no pain. Mental Status/Objective Patient Orientation: Normal For Age Therapy Code Descriptions/Definitions Functional [place] Measure: 0=Not Assessed/NA 4=Minimal Assistance 1=Total Assistance 5=Supervision or Setup 2=Maximal Assistance 6=Modified [place] 3=Moderate Assistance 7=Complete [place] Attachments: Oxygen ADL-Treatment Therapy Code Descriptions/Definitions Functional [place] Measure: 0=Not Assessed/NA 4=Minimal Assistance 1=Total Assistance 5=Supervision or Setup 2=Maximal Assistance 6=Modified [place] 3=Moderate Assistance 7=Complete [place] Therapy Quality Codes: 6 Independent with activity with or without an assistive device 5 Patient requires set up or clean up by helper. Patient completes activity by themselves 4 Supervision or touching assist (CGA). [place] provide cues , steadying assist 3 The helper provides less than half the effort to complete the activity 2 The helper provides more than half the effort to complete the activity 1 Dependent. The helper does all the effort to complete an activity 7 Patient refused to complete or attempt activity 9 The patient did not perform the activity before the current illness or injury 88 Not attempted due to Medical conditions or safety concerns Lower Body Dressing (FIM): 5 Transfers (B, C, W/C) (FIM): 4 pt education on use of AE, curb hop, sock aid, dressing stick. pt demo ability to to doff starla sock with AE and dalila with sock aid X 3 trails with cuing for skilled techniques. Other Treatment pt perform stand pivot transfer from w/c to recliner chair with CGA. while seated in recliner chair, pt education on exercise program with use of red Therabrand. pt perform shoulder flex/ ADD/ ABD, and elbow flex/ ext 10X1. post session, pt seated in recliner chair, all needs met. Education OT Patient Education: Correct positioning, Exercise program, Modified ADL techniques, Progress toward Goal/Update tx plan, Purpose of tx/functional activities, Safety issues, Transfer techniques, Use of adapted equipment Teaching Recipient: Patient Teaching Methods: Demonstration, Discussion Response to Teaching: Verbalize Understanding, Return Demonstration OT Short Term Goals Short Term Goals Time Frame: Dec 08, 2018 Eating(FIM): 5 Grooming(FIM): 5 Bathing(FIM): 4 Upper Body Dressing(FIM): 4 Lower Body Dressing(FIM): 3 Toileting(FIM): 3 Transfers (B,C,W/C) (FIM): 4 Toilet/Commode Transfer(FIM): 4 Shower Transfer(FIM): 4 Additional Short Term Goals: 1-Demonstrate ADL Tasks, 2-Verbalize Understanding, 3-ImproveStrength/Juan F 1=Demonstrate adherence to instructed precautions during ADL tasks. 2=Patient will verbalize/demonstrate understanding of assistive devices/modifications for ADL. 3=Patient will improve strength/tolerance for activity to enable patient to perform ADL's. OT Alf Goals Alf Goals Time Frame: Dec 22, 2018 Eating (FIM): 6 Eating (QC): 6 Groomin Oral Hygiene (QC): 6 Bathing(FIM): 5 Shower/Bathe Self (QC): 4 Upper Body Dressing(FIM): 5 Upper Body Dressing (QC): 4 Lower Body Dressing(FIM): 5 Lower Body Dressing (QC): 4 On/Off Footwear (QC): 4 Toileting(FIM): 6 Toileting Hygiene (QC): 6 Transfers (B,C,W/C) (FIM): 6 Toilet/Commode Transfer(FIM): 6 Toilet/Commode Transfer (QC): 6 Shower Transfer(FIM): 5 Additional Goals: 1-Demonstrate ADL Tasks, 2-Verbalize Understanding, 3- ImproveStrength/Juan F 1=Demonstrate adherence to instructed precautions during ADL tasks. 2=Patient will verbalize/demonstrate understanding of assistive devices/modifications for ADL. 3=Patient will improve strength/tolerance for activity to enable patient to perform ADL's. OT Education/Plan Problem List/Assessment Assessment: Decreased Activ Tolerance, Decreased Safety Aware, Decreased UE Strength, Impaired Funct Balance, Impaired I ADL's, Impaired Self-Care Skills Discharge Recommendations Plan/Recommendations: Continue POC Treatment Plan/Plan of Care Treatment,Training & Education: Yes Patient would benefit from OT for education, treatment and training to promote independence in ADL's, mobility, safety and/or upper extremity function for ADL's. Plan of Care: ADL Retraining, Functional Mobility, Group Exercise/Act as Ind, UE Funct Exercise/Act Treatment Duration: Dec 22, 2018 Frequency: At least 5 of 7 days/Wk (IRF) Estimated Hrs Per Day: 1.5 hours per day Agreement: Yes Rehab Potential: Good Time/GCodes Start Time: 09:30 Stop Time: 10:30 Billed Treatment Time ADL 30 minutes, 2 units EX 30 minutes, 2 units GEMINI RODRIGUEZ OT Dec 02, 2018 10:41
--- NOTE | 2018-12-02 10:51 | Physical Therapy Daily Note ---
PT Daily Note-Current Subjective "I'm sick of this bed!" Agrees to PT. Reports she feels stiff today and notes that moving around feels good to her. Transfers Therapy Code Descriptions/Definitions Functional [place] Measure: 0=Not Assessed/NA 4=Minimal Assistance 1=Total Assistance 5=Supervision or Setup 2=Maximal Assistance 6=Modified [place] 3=Moderate Assistance 7=Complete [place] Therapy Quality Codes: 6 Independent with activity with or without an assistive device 5 Patient requires set up or clean up by helper. Patient completes activity by themselves 4 Supervision or touching assist (CGA). [place] provide cues , steadying assist 3 The helper provides less than half the effort to complete the activity 2 The helper provides more than half the effort to complete the activity 1 Dependent. The helper does all the effort to complete an activity 7 Patient refused to complete or attempt activity 9 The patient did not perform the activity before the current illness or injury 88 Not attempted due to Medical conditions or safety concerns Transfers (B, C, W/C) (FIM): 2 Scootin Roll Left to Right (QC): 3 Supine to/from Sit: 3 Sit to/from Stand: 3 Sit to Lying (QC): 3 Sit to Stand (QC): 3 Chair/Qzt-nz-Oesaa Xfer(QC): 4 (CGA with assist to manage her walker) Gait Training Does the Patient Walk?: Yes Gait (FIM): 2 Distance (FIM): 1=up to 49 ft Distance: 10 ft x 4 reps Gait Level of Assist: 4 (min assist ofr balance and safety) Gait Assistive Device: FWW slow gait with wide CONSTANCE and decreased step length; unsteady and noted quad and hip extension weakness. Treatments Pt toileted; transfer wc to/from toilet with mod assist to stand and min assist for SPT with FWW. Dep for pericare. Assessment Current Status: Good Progress Pt's funcitonal mobility progressing and she is progressing with gait. Motivated and compliant PT Short Term Goals Short Term Goals Time Frame: Dec 15, 2018 Transfers (B,C,W/C) (FIM): 4 Gait (FIM): 4 Distance (FIM): 3=150 ft Gait Assistive Device: FWW PT Event Marketing Representative Goals Group Home Goals PT Event Marketing Representative Goals Time Frame: Dec 29, 2018 Transfers (B,C,W/C) (FIM): 6 Sit to Lying (QC): 6 Lying-Sitting on Side/Bed(QC): 6 Sit to Stand (QC): 6 Rollin Roll Left to Right (QC): 6 Chair/Ono-il-Dvqid Xfer(QC): 6 Car Transfer (QC): 6 Does the Patient Walk: Yes Gait (FIM): 6 Gait distance (FIM): 3=150 ft Walk 10 feet (QC): 6 Walk 10ft-Uneven Surface(QC): 6 Walk 50ft with 2 Turns (QC): 6 Walk 150 ft (QC): 6 Gait Assistive Device: FWW Does the Pt use WC or Scooter?: No Stairs (FIM): 5 # of Steps: 4 1 Step (curb) (QC): 6 4 Steps (QC): 6 12 Steps (QC): 9 Picking up an Object (QC): 9 PT Plan Problem List Problem List: Activity Tolerance, Functional Strength, Safety, Balance, Gait, Transfer, Bed Mobility Treatment/Plan Treatment Plan: Continue Plan of Care Treatment Plan: Bed Mobility, Education, Functional Activity Juan F, Functional Strength, Group Therapy, Gait, Safety, Therapeutic Exercise, Transfers Treatment Duration: Dec 29, 2018 Frequency: At least 5 of 7 days/Wk (IRF) Estimated Hrs Per Day: 1.5 hours per day Patient and/or Family Agrees t: Yes Safety Risks/Education Patient Education: Transfer Techniques, Safety Issues Teaching Recipient: Patient Teaching Methods: Demonstration Response to Teaching: Reinforcement Needed Time/GCodes Time In: 836 Time Out: 930 Total Billed Treatment Time: 54 Total Billed Treatment visit FA 54 CEDRIC ALCANTARA PT Dec 02, 2018 10:51
--- NOTE | 2018-12-02 14:07 | Speech Therapy Daily Note ---
Speech Daily Progress Note Subjective Date Seen by Provider: Dec 02, 2018 Time Seen by Provider: 00:30 The patient was sitting up in her chair resting when I entered the room. Objective The patient utilized compensatory strategy of alternating food: drink at 2:1 ratio with 80% accuracy given min to mod verbal cues. Assessment Assessment Current Status: Good Progress Treatment Plan Continue Plan of Care Communication Comprehension: 7 Expression: 7 Social Cognition Social Interaction: 7 Problem Solvin Memory: 6 Speech Short Term Goals Short Term Goals Short Term Goals 1) The patient will tolerate least restrictive diet level without s/s of aspiration at 90% or greater. 2) The patient will utilize compensatory strategies as trained for safe oral intake at 90% or greater given minimal verbal cues. Speech Household Appliance Assembler Goals Household Appliance Assembler Goals The patient will maintain adequate nutrition/hydration via safe effective swallow function. Speech-Plan Patient/Family Goals Patient/Family Goals: The patient plans on returning home or to [facility] post rehab. Treatment Plan Speech Therapy Treatment Plan: Continue Plan of Care The patient is progressing with upgrade in diet level. Treatment Duration: Dec 09, 2018 Frequency: 1 time per week Estimated Hrs Per Day: .25 hour per day Rehab Potential: Good Barriers to Learning: Patient's medical status requiring modified diet level Pt/Family Agrees to Plan: Yes Safety Risks/Education Teaching Recipient: Patient Teaching Methods: Demonstration, Discussion Response to Teaching: Verbalize Understanding, Return Demonstration Education Topics Provided: Safety or oral intake, compensatory strategies Time Speech Therapy Time In: 11:30 Speech Therapy Time Out: 12:00 Total Billed Time: 30 Billed Treatment Time 1, DYST ANTHONY Carvalho Dec 02, 2018 14:07
--- NOTE | 2018-12-02 14:09 | NUR ---
CLINICAL REGISTERED NURSE met with patient to plate initial assessment. Patient was alert and oriented and agreeable to assessment. 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 Prior to hospitalization patient resided alone in an order entry clerk apartment in [place], [place]; however patient does express interest in a referral being sent to [facility] assisted living. CLINICAL REGISTERED NURSE completed this task following assessment. Patient reports a decrease in function over the last 6 months. She typically utilizes a front-wheeled walker for ambulation, 2 L of continuous oxygen and nocturnal CPAP. Patient does receive 32 hours of home care services per week for household duties. Home is equipped with a walk in shower with shower seat and tall toilets. Patient identifies her son, Roge of [place] as primary contact at [phone] and [id number], Teena at [phone]. PCP identified as Dr. Francois, sales and leasing agent as [facility], GI as Dr. Solorzano of [facility] and back specialist/ortho as Dr. Brambila of [facility]. Insurance verified as [facility] care [facility] and preferred pharmacy listed as [facility]. CLINICAL REGISTERED NURSE reviewed typical ARU length of stay and weekly team conferences. Patient's expresses no questions or concerns at this time. CLINICAL REGISTERED NURSE will continue to follow.
--- NOTE | 2018-12-02 14:19 | Therapy Group Daily Note ---
Therapy Daily Group Note Patient Education Topic Home Safety, Fall Prevention, Home Safety, Energy Cons Session Ratio (pt:therapist): 2:1 Goal of Session: Education on ARU Expectations, Energy Conservation Tech., Home Safety Strategies, Memory Strategies Goal Met for this Session: Yes Pt Benefit of Group: Contributions to Others, F/U Use of Strategies @Home, Increased Functional Safety, Improved Cognition, Recognition of Peers, Socialization Other/Notes Pt transported via w/c to PAU common areas for OT group. Group consisted of introductions (name and fun fact about pt), socialization, ARU expectation, amanda rgy conservation techniques, home safety strategies, and memory strategies. Pt introduced self appropriately and actively listened to peers. Pt participated in matching memory game with pairs, with moderate difficulty with task. Pt given hand out of energy conservation techniques to utilize in every day. Pt acknowledged understanding of handout by giving personal strategies of how to incorporate techniques within personal living. After therapy, pt laying in bed with call light and phone in reach, all needs met. Start Time: 13:00 Stop Time: 14:05 Total Billed Treatment Time: 65 Total Billed Treatment 1, GRP X65min CALUDIO HOBSON OT Dec 02, 2018 14:19
[2018-12-02] MEDS: RT-ADVAIR HFA 115/21 MCG PER PUFF IH SCH ×2 (14:34→19:34)
[2018-12-02 16:45] VITALS: BP 138/84
[2018-12-02] MEDS: SODIUM CHLORIDE IV SCH ×11 (17:09)
[2018-12-02] MEDS: POTASSIUM CHLORIDE IV SCH ×11 (17:09)
[2018-12-02] MEDS: [UNRECOGNIZED DRUG - OTHER] IV SCH ×11 (17:09)
--- NOTE | 2018-12-02 19:10 | NUR ---
bedside report received from DAVE JETT, assume care of pt
[2018-12-02 21:11] VITALS: BP 129/80
--- NOTE | 2018-12-02 21:13 | NUR ---
pt refused Moises & Bryant
--- NOTE | 2018-12-02 21:15 | NUR ---
assessments & interventions completed, see assessments & interventions, cpap on with 02 4l bleed into it
--- NOTE | 2018-12-03 00:10 | NUR ---
fsbs 222 novolog 8 units given, pt wanting to go back to bed from chair 2 people assist & walker
[2018-12-03] MEDS: PIPERACILLIN/TAZOBACTAM (BULK) 4.5 GM in NS (IVPB) 100 ML IV SCH ×3 (00:11→15:56)
[2018-12-03] MEDS: inSUlin ASPART (NovoLOG) 1 UNIT/0.01 ML (CHARGE PER UNIT) SC SCH ×4 (00:11→19:26)
[2018-12-03] MEDS: fentaNYL INJECTION 100 MCG/2 ML AMP IV PRN (00:32)
--- NOTE | 2018-12-03 00:32 | NUR ---
c/o pain level 8/10 on numeric scale, fentanyl 50mcg iv given
--- NOTE | 2018-12-03 01:05 | NUR ---
resting quietly in bed, pain level 0/10 on flacc scale
[2018-12-03] MEDS: OCTREOTIDE INJECTION 500 MCG in NS (IVPB) 97.5 ML IV SCH ×2 (04:48→15:52)
[2018-12-03 06:00] VITALS: BP 99/62
--- NOTE | 2018-12-03 07:11 | NUR ---
bedside report given to EDUARDA JETT
[2018-12-03] MEDS: RT-ADVAIR HFA 115/21 MCG PER PUFF IH SCH ×2 (09:16→20:06)
[2018-12-03] MEDS: DULoxetine 30 MG (CYMBALTA) CAP PO SCH (10:26)
[2018-12-03] MEDS: DOCUSATE SODIUM 100 MG (COLACE) CAP PO SCH ×2 (10:26→21:50)
[2018-12-03] MEDS: OMEGA 3 (FISH OIL) 1000 MG CAP PO SCH (10:27)
[2018-12-03] MEDS: MAGNESIUM OXIDE (MAG-OX)400 MG TAB PO SCH (10:27)
[2018-12-03] MEDS: FUROSEMIDE 20 MG (LASIX) TAB PO SCH (10:27)
[2018-12-03] MEDS: amLODIPine 10 MG (NORVASC) TAB PO SCH (10:27)
[2018-12-03] MEDS: meTOprolol TARTRATE 25 MG (LOPRESSOR) TABLET PO SCH ×3 (10:27→21:54)
[2018-12-03] MEDS: SENNA W/DOCUSATE (SENOKOT S) TABLET PO SCH ×2 (10:28→21:50)
[2018-12-03] MEDS: LINAGLIPTIN (TRADJENTA) 5 MG TABLET PO SCH (10:28)
[2018-12-03] MEDS: lisINopril 20 MG (PRINIVIL) TABLET PO SCH (10:29)
[2018-12-03] MEDS: VITAMIN D3 5,000 UNITS (CHOLECALCIFEROL ) CAPSULE PO SCH (10:29)
[2018-12-03] MEDS: buPROPion SR 150 MG (WELLBUTRIN SR) TAB PO SCH (10:29)
[2018-12-03] MEDS: ENOXAPARIN 60 MG/0.6 ML (LOVENOX) SYR SC SCH ×2 (10:30→22:03)
--- NOTE | 2018-12-03 11:51 | Physical Therapy Daily Note ---
PT Daily Note-Current Subjective Agrees to PT. Reports she plans to sit up most of the day. Transfers Therapy Code Descriptions/Definitions Functional [place] Measure: 0=Not Assessed/NA 4=Minimal Assistance 1=Total Assistance 5=Supervision or Setup 2=Maximal Assistance 6=Modified [place] 3=Moderate Assistance 7=Complete [place] Therapy Quality Codes: 6 Independent with activity with or without an assistive device 5 Patient requires set up or clean up by helper. Patient completes activity by themselves 4 Supervision or touching assist (CGA). [place] provide cues , steadying assist 3 The helper provides less than half the effort to complete the activity 2 The helper provides more than half the effort to complete the activity 1 Dependent. The helper does all the effort to complete an activity 7 Patient refused to complete or attempt activity 9 The patient did not perform the activity before the current illness or injury 88 Not attempted due to Medical conditions or safety concerns Treatments Pt in chair when PT arrived. Worked on sit to stand transfers, requiring CGA and skilled cues 50% of the time for sequencing and hand placement. Sit to stand x 5 reps; once standing worked on wt shift left to right with slightly lifting her feet. Pt had incont episode x 2 during treatment; pt able to stand for this therapist to provide pericare. Education provided on safety and importance of increasing activity and pt agreed. Pt in chair post treatment with oxygen in situ and needs met. Assessment Current Status: Good Progress Transfers are improving and sequencing improved as well. Pt is pleasant and motivated to get better to return home. PT Short Term Goals Short Term Goals Time Frame: Dec 15, 2018 Transfers (B,C,W/C) (FIM): 4 Gait (FIM): 4 Distance (FIM): 3=150 ft Gait Assistive Device: FWW PT Nursing Home Goals Dynamite Cartridge Crimper Goals PT Dynamite Cartridge Crimper Goals Time Frame: Dec 29, 2018 Transfers (B,C,W/C) (FIM): 6 Sit to Lying (QC): 6 Lying-Sitting on Side/Bed(QC): 6 Sit to Stand (QC): 6 Rollin Roll Left to Right (QC): 6 Chair/Oob-xl-Tbcns Xfer(QC): 6 Car Transfer (QC): 6 Does the Patient Walk: Yes Gait (FIM): 6 Gait distance (FIM): 3=150 ft Walk 10 feet (QC): 6 Walk 10ft-Uneven Surface(QC): 6 Walk 50ft with 2 Turns (QC): 6 Walk 150 ft (QC): 6 Gait Assistive Device: FWW Does the Pt use WC or Scooter?: No Stairs (FIM): 5 # of Steps: 4 1 Step (curb) (QC): 6 4 Steps (QC): 6 12 Steps (QC): 9 Picking up an Object (QC): 9 PT Plan Problem List Problem List: Activity Tolerance, Functional Strength, Safety, Balance, Gait, Transfer, Bed Mobility Treatment/Plan Treatment Plan: Continue Plan of Care Treatment Plan: Bed Mobility, Education, Functional Activity Juan F, Functional Strength, Group Therapy, Gait, Safety, Therapeutic Exercise, Transfers Treatment Duration: Dec 29, 2018 Frequency: At least 5 of 7 days/Wk (IRF) Estimated Hrs Per Day: 1.5 hours per day Patient and/or Family Agrees t: Yes Safety Risks/Education Patient Education: Transfer Techniques, Safety Issues Teaching Recipient: Patient Teaching Methods: Demonstration, Discussion Response to Teaching: Return Demonstration, Reinforcement Needed Discharge Recommendations Therapy D/C Recommendations: Physical Therapy Home Care Time/GCodes Time In: 1040 Time Out: 1105 Total Billed Treatment Time: 25 Total Billed Treatment visit FA 25 CEDRIC ALCANTARA PT Dec 03, 2018 11:51
--- NOTE | 2018-12-03 12:20 | PM&R Progress Note ---
Subjective HPI/CC On Admission Date Seen by Provider: Dec 03, 2018 Time Seen by Provider: 12:00 Chief complaint: Disuse myopathy. HPI: This is a 63[facility]WF [facility] Pt known to me from last week hospital admission when she required intubation for acute on chronic respiratory failure with obesity-hypoventilation syndrome following hernia repair. She was able to be extubated without complication and continued to be on high flow oxygen and had suffered these issues following an uncomplicated ventral hernia surgery. Due to her morbid obesity and likely chronic CO2 retention she went into respiratory failure, had significant difficulties with multisystem organ dysfunction and was eventually able to move down to fourth floor but repeat CT scam obtained due to elevated white count per Dr. Olvera showed some sort of fistula. 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 She remained on TPN, clear liquid diet only and IV antibiotics to help heal that area. At this current time, the Pt is denying any pain and is getting around better since she was living independently and ambulating at home. The goal is to return to near prior level of function and be able to return back to independent level of living. Subjective/Events-last exam Patient doing well Wants a pet pass today Holding bowel movement regimen due to loose stools Nicotine patch has been requested by the patient and she had not asked for it so I recommended her to ask for it to be placed Site of ostomy appears to be irritated but no progression noted per RN White count remains elevated but not a major elevation Check meds and labs General surgery will check ostomy and provide wound care daily and I appreciate their expertise Conferred with RN Reviewed therapy notes Review of Systems General: Fatigue Pulmonary: Dyspnea Gastrointestinal: Abdominal Pain, Diarrhea Objective Exam Vital Signs Vital Signs Date Time Temp Pulse Resp B/P (MAP) Pulse Ox O2 Delivery O2 Flow Rate FiO2 12/03/18 17:08 99.1 74 18 130/71 (90) 96 High Flow N/C 4.00 Capillary Refill : General Appearance: No Apparent Distress, WD/WN, Chronically ill, Obese HEENT: PERRL/EOMI, Normal ENT Inspection, Pharynx Normal, Moist Mucous Membranes Neck: Full Range of Motion, Normal Inspection, Non Tender, Supple Respiratory: Chest Non Tender, Lungs Clear, No Accessory Muscle Use, No Respiratory Distress, Decreased Breath Sounds Cardiovascular: Regular Rate, Rhythm, No Edema, No Gallop, No JVD, No Murmur Gastrointestinal: Normal Bowel Sounds, No Organomegaly, No Pulsatile Mass, Soft, Tenderness, Other (fistula) Back: Normal Inspection, No CVA Tenderness, No Vertebral Tenderness Extremity: Normal Capillary Refill, Normal Inspection, Normal Range of Motion, Non Tender, No Calf Tenderness, No Pedal Edema Neurologic/Psychiatric: Alert, Oriented x3, No Motor/Sensory Deficits, Normal Mood/Affect Skin: Normal Color, Warm/Dry Lymphatic: No Adenopathy Results/Procedures Lab Patient resulted labs reviewed. FIM Transfers Therapy Code Descriptions/Definitions Functional [place] Measure: 0=Not Assessed/NA 4=Minimal Assistance 1=Total Assistance 5=Supervision or Setup 2=Maximal Assistance 6=Modified [place] 3=Moderate Assistance 7=Complete [place] Therapy Quality Codes: 6 Independent with activity with or without an assistive device 5 Patient requires set up or clean up by helper. Patient completes activity by themselves 4 Supervision or touching assist (CGA). [place] provide cues , steadying assist 3 The helper provides less than half the effort to complete the activity 2 The helper provides more than half the effort to complete the activity 1 Dependent. The helper does all the effort to complete an activity 7 Patient refused to complete or attempt activity 9 The patient did not perform the activity before the current illness or injury 88 Not attempted due to Medical conditions or safety concerns Transfers (B, C, W/C) (FIM): 2 Scootin Rollin Roll Left to Right (QC): 3 Supine to/from Sit: 3 Sit to/from Stand: 3 Sit to Lying (QC): 3 Sit to Stand (QC): 3 Chair/Rcy-rw-Szemm Xfer(QC): 4 (CGA with assist to manage her walker) Bed to/from Chair: 4 Car Transfer (QC): 88 (Unsafe to attempt car transfer at this time. ) Gait Training Does the Patient Walk?: Yes Gait (FIM): 2 Distance (FIM): 1=up to 49 ft Distance: 10 ft x 4 reps Walk 10 feet (QC): 88 Walk 50 ft with 2 Turns(QC): 88 Walk 150 ft (QC): 88 Walking 10ft/uneven surface-QC: 88 Gait Level of Assist: 4 (min assist ofr balance and safety) Gait Persons Needed: 2 Gait Assistive Device: FWW Wheelchair Training Does the Pt Use a Wheelchair?: No Stair Training Stairs (FIM): 0 #of Steps: 0 1 Step (curb) (QC): 88 4 Steps (QC): 88 12 Steps (QC): 88 Balance Picking up an Object (QC): 88 Mental Status/Objective Comprehension: 7 Expression: 7 Social Interaction: 7 Problem Solvin Memory: 6 ADL-Treatment Groomin (Max assist to brush hair due to UE weakness.) Bathin (Pt. requires assistance to wash most parts. Pt. is able to wash face and lower arms. Unable to fully reach under arms, martha area, and feet.) Shower/Bathe Self (QC): 2 Lower Extremity Dressin Lower Body Dressing (QC): 1 On/Off Footwear (QC): 1 Assessment/Plan Assessment and Plan Assess & Plan/Chief Complaint Plan: IRF protocol OOB in chair today TPN Advance diet if ok with Dr Olvera Restarted previous 4th floor meds O2 PLOF was ambulating at home Hold BM regimen due to loose stools Ostomy care per surgical service Monitor labs prn (1) Myopathy (2) COPD (chronic obstructive pulmonary disease) Status: Chronic Qualifiers: COPD type: unspecified COPD Qualified Codes: J44.9 - Chronic obstructive pulmonary disease, unspecified (3) Hypokalemia Status: Acute (4) Diabetes mellitus, type 2 Status: Chronic Qualifiers: Diabetes mellitus termite exterminator insulin use: with fdc use Diabetes mellitus complication status: with other specified complication Qualified Codes: E11.69 - Type 2 diabetes mellitus with other specified complication; Z79.4 - [facility]CF (current) use of insulin (5) Ventilator dependence Status: Resolved Resolution Date/Time: 11/25/18 @ 20:44 (6) Enterocutaneous fistula Status: Acute (7) Obesity hypoventilation syndrome Status: Chronic (8) On total parenteral nutrition (TPN) Status: Acute (9) BRAYAN treated with BiPAP Status: Chronic (10) Smoker Status: Chronic ALEIDA LICEA DO Dec 03, 2018 12:20
[2018-12-03] MEDS: FLUCONAZOLE 200 MG/100 ML 50 ML, EMPTY IV BAG (PVC) 1 EA IV SCH ×2 (12:45)
[2018-12-03 17:08] VITALS: BP 130/71
[2018-12-03] MEDS: SODIUM CHLORIDE IV SCH ×11 (17:15)
[2018-12-03] MEDS: [UNRECOGNIZED DRUG - OTHER] IV SCH ×11 (17:15)
[2018-12-03] MEDS: POTASSIUM CHLORIDE IV SCH ×11 (17:15)
--- NOTE | 2018-12-03 19:26 | NUR ---
bedside report received from EDUARDA JETT, assume care of pt
[2018-12-03 21:50] VITALS: BP 143/89
--- NOTE | 2018-12-03 21:50 | NUR ---
assessments & interventions completed, see assessments & interventions, pt refused Bryant & Moises
--- NOTE | 2018-12-03 21:56 | NUR ---
c/o pain level 8/10 on numeric scale, Ultram 50mg po given
--- NOTE | 2018-12-03 22:40 | NUR ---
resting quietly in bed, pain level 0/10 on flacc scale
[2018-12-04] MEDS: PIPERACILLIN/TAZOBACTAM (BULK) 4.5 GM in NS (IVPB) 100 ML IV SCH ×3 (00:20→17:13)
[2018-12-04] MEDS: OCTREOTIDE INJECTION 500 MCG in NS (IVPB) 97.5 ML IV SCH ×3 (01:57→20:58)
[2018-12-04 05:55] VITALS: BP 142/81
[2018-12-04] MEDS: inSUlin ASPART (NovoLOG) 1 UNIT/0.01 ML (CHARGE PER UNIT) SC SCH ×5 (06:00→21:01)
--- NOTE | 2018-12-04 07:09 | NUR ---
bedside report given to DAVE JETT
[2018-12-04] MEDS: DOCUSATE SODIUM 100 MG (COLACE) CAP PO SCH ×2 (07:45→21:06)
[2018-12-04] MEDS: SENNA W/DOCUSATE (SENOKOT S) TABLET PO SCH ×2 (07:46→21:06)
[2018-12-04] MEDS: FLUCONAZOLE 200 MG/100 ML 50 ML, EMPTY IV BAG (PVC) 1 EA IV SCH ×2 (08:49)
[2018-12-04] MEDS: VITAMIN D3 5,000 UNITS (CHOLECALCIFEROL ) CAPSULE PO SCH (08:57)
[2018-12-04] MEDS: amLODIPine 10 MG (NORVASC) TAB PO SCH (08:57)
[2018-12-04] MEDS: FUROSEMIDE 20 MG (LASIX) TAB PO SCH (08:57)
[2018-12-04] MEDS: MAGNESIUM OXIDE (MAG-OX)400 MG TAB PO SCH (08:57)
[2018-12-04] MEDS: DULoxetine 30 MG (CYMBALTA) CAP PO SCH (08:57)
[2018-12-04] MEDS: buPROPion SR 150 MG (WELLBUTRIN SR) TAB PO SCH (08:57)
[2018-12-04] MEDS: meTOprolol TARTRATE 25 MG (LOPRESSOR) TABLET PO SCH ×3 (08:57→20:48)
[2018-12-04] MEDS: OMEGA 3 (FISH OIL) 1000 MG CAP PO SCH (08:57)
[2018-12-04] MEDS: LINAGLIPTIN (TRADJENTA) 5 MG TABLET PO SCH (08:57)
[2018-12-04] MEDS: lisINopril 20 MG (PRINIVIL) TABLET PO SCH (08:58)
[2018-12-04] MEDS: RT-ADVAIR HFA 115/21 MCG PER PUFF IH SCH ×2 (09:36→20:10)
--- NOTE | 2018-12-04 10:46 | Progress Note ---
Standard Progress Note Progress Notes/Assess & Plan Date Seen by a Provider: Dec 04, 2018 Time Seen by a Provider: 10:00 Progress/Assessment & Plan patient seen and evaluated. Discharge/consultation dictated. patient status stable and slowly improving. has poor physical capacity at this time due to BMI. having BM's per rectum and fistula output slightly decreasing. wound intact, no redness/erythema. will continue current care regimens and therapies. will treat fistula very conservatively. WENDI ELIZABETH MD Dec 04, 2018 10:46
[2018-12-04] MEDS: ENOXAPARIN 60 MG/0.6 ML (LOVENOX) SYR SC SCH (11:02)
--- NOTE | 2018-12-04 11:57 | PM&R Progress Note ---
Subjective HPI/CC On Admission Date Seen by Provider: Dec 04, 2018 Time Seen by Provider: 11:50 Chief complaint: Disuse myopathy. HPI: This is a 63yoWF [facility] Pt known to me from last week hospital admission when she required intubation for acute on chronic respiratory failure with obesity-hypoventilation syndrome following hernia repair. She was able to be extubated without complication and continued to be on high flow oxygen and had suffered these issues following an uncomplicated ventral hernia surgery. Due to her morbid obesity and likely chronic CO2 retention she went into respiratory failure, had significant difficulties with multisystem organ dysfunction and was eventually able to move down to fourth floor but repeat CT scam obtained due to elevated white count per Dr. Olvera showed some sort of fistula. 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 She remained on TPN, clear liquid diet only and IV antibiotics to help heal that area. At this current time, the Pt is denying any pain and is getting around better since she was living independently and ambulating at home. The goal is to return to near prior level of function and be able to return back to independent level of living. Subjective/Events-last exam Patient doing well overall and appears improved each day Wants a pet pass and I had approved that yesterday but apparently the dog "Glenna" shot records will need to be sent tomorrow by [facility] in [place] before that can be accommodated Holding bowel movement regimen due to loose stools Nicotine patch available Right flank has an area of erythema and mass that appears to be hematoma CBC pending which Dr Olvera ordered Check meds and labs General surgery will check ostomy and provide wound care daily and I appreciate their expertise and Dr Olvera evaluated it today Conferred with RN Reviewed therapy notes Review of Systems General: Fatigue Pulmonary: Dyspnea Gastrointestinal: Abdominal Pain Objective Exam Vital Signs Vital Signs Date Time Temp Pulse Resp B/P (MAP) Pulse Ox O2 Delivery O2 Flow Rate FiO2 12/04/18 09:36 95 Nasal Cannula 3.00 12/04/18 05:55 99.2 76 16 142/81 (101) Capillary Refill : General Appearance: No Apparent Distress, WD/WN, Chronically ill, Obese HEENT: PERRL/EOMI, Normal ENT Inspection, Pharynx Normal, Moist Mucous Membranes Neck: Full Range of Motion, Normal Inspection, Non Tender, Supple Respiratory: Chest Non Tender, Lungs Clear, No Accessory Muscle Use, No Respiratory Distress, Decreased Breath Sounds Cardiovascular: Regular Rate, Rhythm, No Edema, No Gallop, No JVD, No Murmur Gastrointestinal: Normal Bowel Sounds, No Organomegaly, No Pulsatile Mass, S oft, Tenderness, Other (fistula) Back: Normal Inspection, No CVA Tenderness, No Vertebral Tenderness Extremity: Normal Capillary Refill, Normal Inspection, Normal Range of Motion, Non Tender, No Calf Tenderness, No Pedal Edema Neurologic/Psychiatric: Alert, Oriented x3, No Motor/Sensory Deficits, Normal Mood/Affect Skin: Normal Color, Warm/Dry, Other (right flank hematoma?) Lymphatic: No Adenopathy Results/Procedures Lab Laboratory Tests 12/04/18 12:40 Patient resulted labs reviewed. FIM Transfers Therapy Code Descriptions/Definitions Functional [place] Measure: 0=Not Assessed/NA 4=Minimal Assistance 1=Total Assistance 5=Supervision or Setup 2=Maximal Assistance 6=Modified [place] 3=Moderate Assistance 7=Complete [place] Therapy Quality Codes: 6 Independent with activity with or without an assistive device 5 Patient requires set up or clean up by helper. Patient completes activity by themselves 4 Supervision or touching assist (CGA). [place] provide cues , steadying a ssist 3 The helper provides less than half the effort to complete the activity 2 The helper provides more than half the effort to complete the activity 1 Dependent. The helper does all the effort to complete an activity 7 Patient refused to complete or attempt activity 9 The patient did not perform the activity before the current illness or injury 88 Not attempted due to Medical conditions or safety concerns Transfers (B, C, W/C) (FIM): 2 Scootin Rollin Roll Left to Right (QC): 3 Supine to/from Sit: 3 Sit to/from Stand: 3 Sit to Lying (QC): 3 Sit to Stand (QC): 3 Chair/Eej-bw-Xafzp Xfer(QC): 4 (CGA with assist to manage her walker) Bed to/from Chair: 4 Car Transfer (QC): 88 (Unsafe to attempt car transfer at this time. ) Gait Training Does the Patient Walk?: Yes Gait (FIM): 2 Distance (FIM): 1=up to 49 ft Distance: 10 ft x 4 reps Walk 10 feet (QC): 88 Walk 50 ft with 2 Turns(QC): 88 Walk 150 ft (QC): 88 Walking 10ft/uneven surface-QC: 88 Gait Level of Assist: 4 (min assist ofr balance and safety) Gait Persons Needed: 2 Gait Assistive Device: FWW Wheelchair Training Does the Pt Use a Wheelchair?: No Stair Training Stairs (FIM): 0 #of Steps: 0 1 Step (curb) (QC): 88 4 Steps (QC): 88 12 Steps (QC): 88 Balance Picking up an Object (QC): 88 Mental Status/Objective Comprehension: 7 Expression: 7 Social Interaction: 7 Problem Solvin Memory: 6 ADL-Treatment Groomin (Max assist to brush hair due to UE weakness.) Bathin (Pt. requires assistance to wash most parts. Pt. is able to wash face and lower arms. Unable to fully reach under arms, martha area, and feet.) Shower/Bathe Self (QC): 2 Lower Extremity Dressin Lower Body Dressing (QC): 1 On/Off Footwear (QC): 1 Assessment/Plan Assessment and Plan Assess & Plan/Chief Complaint Plan: IRF protocol OOB in chair most of day TPN hold per Dr Olvera for now Advance diet doing well Right flank hematoma? Hold Lovenox O2 maintained PLOF was ambulating at home Ostomy care per surgical service Monitor labs prn (1) Myopathy (2) COPD (chronic obstructive pulmonary disease) Status: Chronic Qualifiers: COPD type: unspecified COPD Qualified Codes: J44.9 - Chronic obstructive pulmonary disease, unspecified (3) Hypokalemia Status: Acute (4) Diabetes mellitus, type 2 Status: Chronic Qualifiers: Diabetes mellitus long term care social worker insulin use: with long term care social worker use Diabetes mellitus complication status: with other specified complication Qualified Codes: E11.69 - Type 2 diabetes mellitus with other specified complication; Z79.4 - nursing home (current) use of insulin (5) Ventilator dependence Status: Resolved Resolution Date/Time: 11/25/18 @ 20:44 (6) Enterocutaneous fistula Status: Acute (7) Obesity hypoventilation syndrome Status: Chronic (8) On total parenteral nutrition (TPN) Status: Acute (9) BRAYAN treated with BiPAP Status: Chronic (10) Smoker Status: Chronic ALEIDA LICEA DO Dec 04, 2018 11:57
[2018-12-04 12:48] LABS: HEMATOCRIT 38 % (35-52); HEMOGLOBIN 11.4 G/DL (11.5-16.0); MEAN CORPUSCULAR HEMOGLOBIN 28 PG (25-34); MEAN CORPUSCULAR VOLUME 92 FL (80-99); WHITE BLOOD COUNT 10.4 10^3/uL (4.3-11.0)
[2018-12-04 12:49] LABS: BASOPHILS # (AUTO) 0.2 10^3/uL (0.0-0.1); BASOPHILS % (AUTO) 2 % (0-10); EOSINOPHILS # (AUTO) 0.3 10^3/uL (0.0-0.3); EOSINOPHILS % (AUTO) 2 % (0-10); LYMPHOCYTES # (AUTO) 1.8 X 10^3 (1.0-4.0); LYMPHOCYTES % (AUTO) 17 % (12-44); MEAN CORPUSCULAR HGB CONC 30 G/DL (32-36); MEAN PLATELET VOLUME 9.8 FL (7.4-10.4); MONOCYTES # (AUTO) 1.4 X 10^3 (0.0-1.0); MONOCYTES % (AUTO) 13 % (0-12); NEUTROPHILS # (AUTO) 6.8 X 10^3 (1.8-7.8); NEUTROPHILS % (AUTO) 66 % (42-75); PLATELET COUNT 321 10^3/uL (130-400); RED CELL DISTRIBUTION WIDTH 16.5 % (10.0-14.5)
[2018-12-04] MEDS: [UNRECOGNIZED DRUG - OTHER] IV SCH ×11 (16:58)
[2018-12-04] MEDS: POTASSIUM CHLORIDE IV SCH ×11 (16:58)
[2018-12-04] MEDS: SODIUM CHLORIDE IV SCH ×11 (16:58)
[2018-12-04 17:14] VITALS: BP 127/82
--- NOTE | 2018-12-04 19:05 | NUR ---
bedside report received from DAVE JETT, assume care of pt
[2018-12-04 20:40] VITALS: BP 107/69
[2018-12-04] MEDS: FAMOTIDINE 20MG/2ML IV (PEPCID) IVP SCH (20:48)
--- NOTE | 2018-12-04 20:48 | NUR ---
assessments & interventions completed, see assessments & interventions, fsbs 201 NovoLog 8 units given
--- NOTE | 2018-12-04 20:48 | NUR ---
c/o pain level 7/10 on numeric scale, Ultram 50mg po, refused Colace & Senokot
--- NOTE | 2018-12-04 21:22 | NUR ---
pain level 2/10 on numeric scale
[2018-12-04] MEDS: fentaNYL INJECTION 100 MCG/2 ML AMP IV PRN (23:52)
--- NOTE | 2018-12-04 23:52 | NUR ---
c/o pain level 9/10 on numeric scale, fentanyl 50mcg iv given
[2018-12-05] MEDS: PIPERACILLIN/TAZOBACTAM (BULK) 4.5 GM in NS (IVPB) 100 ML IV SCH ×3 (00:14→16:52)
--- NOTE | 2018-12-05 00:22 | NUR ---
resting quietly in bed, pain level 0/10 on flacc scale
[2018-12-05 05:37] VITALS: BP 113/70
[2018-12-05 05:54] LABS: BASOPHILS # (AUTO) 0.2 10^3/uL (0.0-0.1); BASOPHILS % (AUTO) 2 % (0-10); EOSINOPHILS # (AUTO) 0.3 10^3/uL (0.0-0.3); EOSINOPHILS % (AUTO) 3 % (0-10); HEMATOCRIT 34 % (35-52); HEMOGLOBIN 10.5 G/DL (11.5-16.0); LYMPHOCYTES % (AUTO) 23 % (12-44); MEAN CORPUSCULAR HEMOGLOBIN 28 PG (25-34); MEAN CORPUSCULAR HGB CONC 31 G/DL (32-36); MEAN CORPUSCULAR VOLUME 92 FL (80-99); MONOCYTES # (AUTO) 1.1 X 10^3 (0.0-1.0); MONOCYTES % (AUTO) 13 % (0-12); NEUTROPHILS # (AUTO) 4.9 X 10^3 (1.8-7.8); NEUTROPHILS % (AUTO) 58 % (42-75); PLATELET COUNT 278 10^3/uL (130-400); RED CELL DISTRIBUTION WIDTH 16.2 % (10.0-14.5); WHITE BLOOD COUNT 8.4 10^3/uL (4.3-11.0)
[2018-12-05] MEDS: inSUlin ASPART (NovoLOG) 1 UNIT/0.01 ML (CHARGE PER UNIT) SC SCH ×4 (06:00→20:58)
[2018-12-05 06:18] LABS: ALANINE AMINOTRANSFERASE 15 U/L (0-55); ALBUMIN 3.2 GM/DL (3.2-4.5); ALKALINE PHOSPHATASE 56 U/L (40-136); BILIRUBIN,TOTAL 0.3 MG/DL (0.1-1.0); BUN/CREATININE RATIO 29; CALCIUM 8.7 MG/DL (8.5-10.1); CARBON DIOXIDE 24 MMOL/L (21-32); CHLORIDE 106 MMOL/L (98-107); CREATININE SERUM 0.89 MG/DL (0.60-1.30); GFR ESTIMATED > 60; GLUCOSE 136 MG/DL (70-105); POTASSIUM 4.3 MMOL/L (3.6-5.0); SODIUM 140 MMOL/L (135-145)
[2018-12-05] MEDS: OCTREOTIDE INJECTION 500 MCG in NS (IVPB) 97.5 ML IV SCH ×2 (06:57→16:52)
--- NOTE | 2018-12-05 07:03 | NUR ---
bedside report given to DAVE JETT
--- NOTE | 2018-12-05 07:52 | PM&R Progress Note ---
Subjective HPI/CC On Admission Date Seen by Provider: Dec 05, 2018 Time Seen by Provider: 07:45 Chief complaint: Disuse myopathy. HPI: This is a 63yoWF [facility] Pt known to me from last week hospital admission when she required intubation for acute on chronic respiratory failure with obesity-hypoventilation syndrome following hernia repair. She was able to be extubated without complication and continued to be on high flow oxygen and had suffered these issues following an uncomplicated ventral hernia surgery. Due to her morbid obesity and likely chronic CO2 retention she went into respiratory failure, had significant difficulties with multisystem organ dysfunction and was eventually able to move down to fourth floor but repeat CT scam obtained due to elevated white count per Dr. Olvera showed some sort of fistula. 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 She remained on TPN, clear liquid diet only and IV antibiotics to help heal that area. At this current time, the Pt is denying any pain and is getting around better since she was living independently and ambulating at home. The goal is to return to near prior level of function and be able to return back to independent level of living. Subjective/Events-last exam Lovenox being held due to right flank hematoma which is much improved today Labs are reviewed which are all within normal limits Dr. Olvera to check hematoma and stoma site Having BMs TPN was discontinued since her oral intake is much improved Antibiotics still on board and will inquire about the duration of that with Dr. Olvera and Daniel Pharmacist Awaiting pet pass after vaccines reviewed form vet Check meds and labs Conferred with RN Reviewed therapy notes Review of Systems General: Fatigue Musculoskeletal: leg pain Objective Exam Vital Signs Vital Signs Date Time Temp Pulse Resp B/P (MAP) Pulse Ox O2 Delivery O2 Flow Rate FiO2 12/05/18 18:00 97.7 74 18 120/69 (86) 94 Room Air 12/05/18 09:32 4.00 Capillary Refill : General Appearance: No Apparent Distress, WD/WN, Chronically ill, Obese HEENT: PERRL/EOMI, Normal ENT Inspection, Pharynx Normal, Moist Mucous Membranes Neck: Full Range of Motion, Normal Inspection, Non Tender, Supple Respiratory: Chest Non Tender, Lungs Clear, No Accessory Muscle Use, No Respiratory Distress, Decreased Breath Sounds Cardiovascular: Regular Rate, Rhythm, No Edema, No Gallop, No JVD, No Murmur Gastrointestinal: Normal Bowel Sounds, No Organomegaly, No Pulsatile Mass, S oft, Tenderness, Other (fistula) Back: Normal Inspection, No CVA Tenderness, No Vertebral Tenderness Extremity: Normal Capillary Refill, Normal Inspection, Normal Range of Motion, Non Tender, No Calf Tenderness, No Pedal Edema Neurologic/Psychiatric: Alert, Oriented x3, No Motor/Sensory Deficits, Normal Mood/Affect, Motor Weakness (lower legs 3/5) Skin: Normal Color, Warm/Dry, Other (right flank hematoma?) Lymphatic: No Adenopathy Results/Procedures Lab Laboratory Tests 12/05/18 05:43 Patient resulted labs reviewed. FIM Transfers Therapy Code Descriptions/Definitions Functional [place] Measure: 0=Not Assessed/NA 4=Minimal Assistance 1=Total Assistance 5=Supervision or Setup 2=Maximal Assistance 6=Modified [place] 3=Moderate Assistance 7=Complete [place] Therapy Quality Codes: 6 Independent with activity with or without an assistive device 5 Patient requires set up or clean up by helper. Patient completes activity by themselves 4 Supervision or touching assist (CGA). [place] provide cues , steadying assist 3 The helper provides less than half the effort to complete the activity 2 The helper provides more than half the effort to complete the activity 1 Dependent. The helper does all the effort to complete an activity 7 Patient refused to complete or attempt activity 9 The patient did not perform the activity before the current illness or injury 88 Not attempted due to Medical conditions or safety concerns Transfers (B, C, W/C) (FIM): 2 Scootin Rollin Roll Left to Right (QC): 3 Supine to/from Sit: 3 Sit to/from Stand: 3 Sit to Lying (QC): 3 Sit to Stand (QC): 3 Chair/Lbb-dm-[place]u Xfer(QC): 4 (CGA with assist to manage her walker) Bed to/from Chair: 4 Car Transfer (QC): 88 (Unsafe to attempt car transfer at this time. ) Gait Training Does the Patient Walk?: Yes Gait (FIM): 2 Distance (FIM): 1=up to 49 ft Distance: 10 ft x 4 reps Walk 10 feet (QC): 88 Walk 50 ft with 2 Turns(QC): 88 Walk 150 ft (QC): 88 Walking 10ft/uneven surface-QC: 88 Gait Level of Assist: 4 (min assist ofr balance and safety) Gait Persons Needed: 2 Gait Assistive Device: FWW Wheelchair Training Does the Pt Use a Wheelchair?: No Stair Training Stairs (FIM): 0 #of Steps: 0 1 Step (curb) (QC): 88 4 Steps (QC): 88 12 Steps (QC): 88 Balance Picking up an Object (QC): 88 Mental Status/Objective Comprehension: 7 Expression: 7 Social Interaction: 7 Problem Solvin Memory: 6 ADL-Treatment Groomin (Max assist to brush hair due to UE weakness.) Bathin (Pt. requires assistance to wash most parts. Pt. is able to wash face and lower arms. Unable to fully reach under arms, martha area, and feet.) Shower/Bathe Self (QC): 2 Lower Extremity Dressin Lower Body Dressing (QC): 1 On/Off Footwear (QC): 1 Assessment/Plan Assessment and Plan Assess & Plan/Chief Complaint Plan: IRF protocol OOB in chair most of day TPN DC per Dr Olvera Advance diet doing well Right flank hematoma? Hold Lovenox and seems to be improved O2 maintained PLOF was ambulating at home Ostomy care per surgical service Monitor labs prn Pet pass (1) Myopathy (2) COPD (chronic obstructive pulmonary disease) Status: Chronic Qualifiers: COPD type: unspecified COPD Qualified Codes: J44.9 - Chronic obstructive pulmonary disease, unspecified (3) Hypokalemia Status: Acute (4) Diabetes mellitus, type 2 Status: Chronic Qualifiers: Diabetes mellitus retirement insulin use: with retirement use Diabetes mellitus complication status: with other specified complication Qualified C odes: E11.69 - Type 2 diabetes mellitus with other specified complication; Z79.4 - skilled nursing (current) use of insulin (5) Ventilator dependence Status: Resolved Resolution Date/Time: 11/25/18 @ 20:44 (6) Enterocutaneous fistula Status: Acute (7) Obesity hypoventilation syndrome Status: Chronic (8) On total parenteral nutrition (TPN) Status: Acute (9) BRAYAN treated with BiPAP Status: Chronic (10) Smoker Status: Chronic ALEIDA LICEA DO Dec 05, 2018 07:52
--- NOTE | 2018-12-05 08:53 | Physical Therapy Daily Note ---
PT Daily Note-Current Subjective Pt. in bed, agrees to Rx, wants to get up to go to bathroom, feels she has had BM Pain Location: No Pain Reported Mental Status Patient Orientation: Normal For Age Attachments: Oxygen (4), Gonzalez Catheter, IV Transfers Therapy Code Descriptions/Definitions Functional [place] Measure: 0=Not Assessed/NA 4=Minimal Assistance 1=Total Assistance 5=Supervision or Setup 2=Maximal Assistance 6=Modified [place] 3=Moderate Assistance 7=Complete [place] Therapy Quality Codes: 6 Independent with activity with or without an assistive device 5 Patient requires set up or clean up by helper. Patient completes activity by themselves 4 Supervision or touching assist (CGA). [place] provide cues , steadying assist 3 The helper provides less than half the effort to complete the activity 2 The helper provides more than half the effort to complete the activity 1 Dependent. The helper does all the effort to complete an activity 7 Patient refused to complete or attempt activity 9 The patient did not perform the activity before the current illness or injury 88 Not attempted due to Medical conditions or safety concerns Transfers (B, C, W/C) (FIM): 4 Scootin Rollin Supine to/from Sit: 4 Sit to/from Stand: 4 instructed in sup to side to sit bed mob Gait Training Does the Patient Walk?: Yes Gait (FIM): 1 Distance (FIM): 1=up to 49 ft (15) Gait Level of Assist: 4 Gait Persons Needed: 1 Gait Assistive Device: FWW extended O2 tubing to allow bathroom toileting, assist for IV and management of O2 tube Exercises Supine Ex: Ankle pumps, Rolling, Heel Slides, Straight leg raise Supine Reps: 12 Assessment Current Status: Good Progress PT Short Term Goals Short Term Goals Time Frame: Dec 15, 2018 Transfers (B,C,W/C) (FIM): 4 Gait (FIM): 4 Distance (FIM): 3=150 ft Gait Assistive Device: FWW PT Fci Goals Fci Goals PT Com Writer Goals Time Frame: Dec 29, 2018 Transfers (B,C,W/C) (FIM): 6 Sit to Lying (QC): 6 Lying-Sitting on Side/Bed(QC): 6 Sit to Stand (QC): 6 Rollin Roll Left to Right (QC): 6 Chair/Fqk-ph-Fnksk Xfer(QC): 6 Car Transfer (QC): 6 Does the Patient Walk: Yes Gait (FIM): 6 Gait distance (FIM): 3=150 ft Walk 10 feet (QC): 6 Walk 10ft-Uneven Surface(QC): 6 Walk 50ft with 2 Turns (QC): 6 Walk 150 ft (QC): 6 Gait Assistive Device: FWW Does the Pt use WC or Scooter?: No Stairs (FIM): 5 # of Steps: 4 1 Step (curb) (QC): 6 4 Steps (QC): 6 12 Steps (QC): 9 Picking up an Object (QC): 9 PT Plan Treatment/Plan Treatment Plan: Continue Plan of Care Treatment Plan: Bed Mobility, Education, Functional Activity Juan F, Functional Strength, Group Therapy, Gait, Safety, Therapeutic Exercise, Transfers Treatment Duration: Dec 29, 2018 Frequency: At least 5 of 7 days/Wk (IRF) Estimated Hrs Per Day: 1.5 hours per day Patient and/or Family Agrees t: Yes Safety Risks/Education Patient Education: Gait Training, Transfer Techniques Teaching Recipient: Patient Teaching Methods: Demonstration, Discussion Response to Teaching: Verbalize Understanding, Return Demonstration, Reinforcement Needed Time/GCodes Time In: 830 Time Out: 900 Total Billed Treatment Time: 30 Total Billed Treatment 1,EX10m,FA20m ALEXANDRE MICHAELS CAR GROOMER Dec 05, 2018 08:53
[2018-12-05] MEDS: RT-ADVAIR HFA 115/21 MCG PER PUFF IH SCH ×2 (09:32→20:34)
--- NOTE | 2018-12-05 09:55 | Cardiology Progress Note ---
Subjective Date Seen by Provider: Dec 05, 2018 Time Seen by Provider: 09:40 Subjective/Events-last exam Patient is with PT. Denies any chest pain or increased dyspnea. Objective-Cardiology Exam Last Set of Vital Signs Vital Signs 12/05/18 12/05/18 05:37 09:32 Temp 98.1 Pulse 76 Resp 18 B/P (MAP) 113/70 (84) Pulse Ox 96 O2 Delivery Nasal Cannula O2 Flow Rate 4.00 Capillary Refill : I&O Intake and Output 12/04/18 23:59 Intake Total 1486 ml Output Total 3500 ml Balance -2013 ml Intake Oral 1045 ml IV Total 441 ml Output Urine Total 3450 ml Gastric Drainage Total 50 ml # Bowel Movements 3 General: Alert, Oriented X3, Cooperative HEENT: Atraumatic, PERRLA Neck: Supple, No JVD, No Thyromegaly Lungs: Clear to Auscultation, Normal Air Movement Heart: Regular Rate, Normal S1, Normal S2, No Murmurs Abdomen: Normal Bowel Sounds, Soft, No Tenderness, No Hepatosplenomegaly, No Masses Extremities: No Clubbing, No Cyanosis, No Edema, Normal Pulses, No Tenderness/Swelling Skin: No Rashes, No Breakdown, No Significant Lesion Neuro: Normal Speech, Cranial Nerves 3-12 NL Psych/Mental Status: Mental Status NL, Mood NL Results Lab Laboratory Tests 12/04/18 12:40 12/05/18 05:43 A/P-Cardiology Admission Diagnosis Respiratory failure COPD HTN HLP Assessment/Plan Status post respiratory failure, resolved, using C Pap on and off, Continue to monitor New enterocutaneous fistula postoperatively, 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 Olvera Acute non-ST elevation myocardial infarction, poor R-wave progression in the anterior leads, probably type II myocardial infarctions due to respiratory failure, underlying coronary artery disease cannot be entirely excluded. Echocardiogram showed normal LV function. Continue with conservative management at this time, continue to monitor. Troponin level trended down, no acute EKG changes suggestive of active ischemia, conservative management at this time. Continue to monitor Hypertension, controlled. Continue to monitor Hyperlipidemia maintained on Lipitor, on hold at this point COPD, oxygen dependent Morbid obesity Diabetes mellitus, followed and managed by primary care physician History of tobaccoism Generalized debility/weakness. Continue to monitor. Clinical Quality Measures DVT/VTE Risk/Contraindication: Risk Factor Score Per Nursin RFS Level Per Nursing on Admit: 4+=Very High ESAU WILCOX Dec 05, 2018 09:55
--- NOTE | 2018-12-05 10:05 | Physical Therapy Daily Note ---
PT Daily Note-Current Subjective Patient continues to be incontinent BM. Agrees to PT. Pain Numeric Pain Scale: 0-No Pain Location: No Pain Reported Mental Status Patient Orientation: Normal For Age Attachments: Oxygen (3L), IV Transfers Therapy Code Descriptions/Definitions Functional [place] Measure: 0=Not Assessed/NA 4=Minimal Assistance 1=Total Assistance 5=Supervision or Setup 2=Maximal Assistance 6=Modified [place] 3=Moderate Assistance 7=Complete [place] Therapy Quality Codes: 6 Independent with activity with or without an assistive device 5 Patient requires set up or clean up by helper. Patient completes activity by themselves 4 Supervision or touching assist (CGA). [place] provide cues , steadying assist 3 The helper provides less than half the effort to complete the activity 2 The helper provides more than half the effort to complete the activity 1 Dependent. The helper does all the effort to complete an activity 7 Patient refused to complete or attempt activity 9 The patient did not perform the activity before the current illness or injury 88 Not attempted due to Medical conditions or safety concerns Transfers (B, C, W/C) (FIM): 6 Scootin Sit to/from Stand: 6 Sit to Stand (QC): 6 Gait Training Does the Patient Walk?: Yes Gait (FIM): 2 Distance (FIM): 1=060-70 ft Distance: 75' x 6 Walk 10 feet (QC): 6 Walk 50 ft with 2 Turns(QC): 6 Gait Level of Assist: 6 Gait Assistive Device: FWW to address pulmonary functional with functional mobility. Patient SAO2 >95% during treatment on 3L O2 NC/patient requires seated recovery periods due to fatigue Stair Training Stair Training: Handrails/: uses walker Stairs (FIM): 1 #of Steps: 1 1 Step (curb) (QC): 5 Stairs: Pattern: Step to Level of Assist: 5 Exercises Seated Therapy Exercises: Ankle pumps, Long arc quads, Hip flexion Seated Reps: 20 (4 sets) Assessment Patient is highly motivated with progress and voices she wishes to return to home this week. Patient progressing with pulmonary function with noted increase in ambulation distance. PT Short Term Goals Short Term Goals Time Frame: Dec 15, 2018 Transfers (B,C,W/C) (FIM): 4 Gait (FIM): 4 Distance (FIM): 3=150 ft Gait Assistive Device: FWW PT Operator And Truck Driver Goals Shelter Goals PT Shelter Goals Time Frame: Dec 29, 2018 Transfers (B,C,W/C) (FIM): 6 Sit to Lying (QC): 6 Lying-Sitting on Side/Bed(QC): 6 Sit to Stand (QC): 6 Rollin Roll Left to Right (QC): 6 Chair/Qty-wv-Dcdix Xfer(QC): 6 Car Transfer (QC): 6 Does the Patient Walk: Yes Gait (FIM): 6 Gait distance (FIM): 3=150 ft Walk 10 feet (QC): 6 Walk 10ft-Uneven Surface(QC): 6 Walk 50ft with 2 Turns (QC): 6 Walk 150 ft (QC): 6 Gait Assistive Device: FWW Does the Pt use WC or Scooter?: No Stairs (FIM): 5 # of Steps: 4 1 Step (curb) (QC): 6 4 Steps (QC): 6 12 Steps (QC): 9 Picking up an Object (QC): 9 PT Plan Treatment/Plan Treatment Plan: Continue Plan of Care Treatment Plan: Bed Mobility, Education, Functional Activity Juan F, Functional Strength, Group Therapy, Gait, Safety, Therapeutic Exercise, Transfers Treatment Duration: Dec 29, 2018 Frequency: At least 5 of 7 days/Wk (IRF) Estimated Hrs Per Day: 1.5 hours per day Patient and/or Family Agrees t: Yes Time/GCodes Time In: 903 Time Out: 1003 Total Billed Treatment Time: 60 Total Billed Treatment 1 visit FA x 3 43 min EX 17 min BO [place] PT Dec 05, 2018 10:05
[2018-12-05] MEDS: FLUCONAZOLE 200 MG/100 ML 50 ML, EMPTY IV BAG (PVC) 1 EA IV SCH ×2 (10:39)
[2018-12-05] MEDS: FAMOTIDINE 20MG/2ML IV (PEPCID) IVP SCH ×2 (10:39→20:51)
[2018-12-05] MEDS: FUROSEMIDE 20 MG (LASIX) TAB PO SCH (10:40)
[2018-12-05] MEDS: MAGNESIUM OXIDE (MAG-OX)400 MG TAB PO SCH (10:40)
[2018-12-05] MEDS: DOCUSATE SODIUM 100 MG (COLACE) CAP PO SCH ×2 (10:40→20:58)
[2018-12-05] MEDS: lisINopril 20 MG (PRINIVIL) TABLET PO SCH (10:40)
[2018-12-05] MEDS: meTOprolol TARTRATE 25 MG (LOPRESSOR) TABLET PO SCH ×3 (10:40→20:52)
[2018-12-05] MEDS: DULoxetine 30 MG (CYMBALTA) CAP PO SCH (10:40)
[2018-12-05] MEDS: buPROPion SR 150 MG (WELLBUTRIN SR) TAB PO SCH (10:41)
[2018-12-05] MEDS: amLODIPine 10 MG (NORVASC) TAB PO SCH (10:41)
[2018-12-05] MEDS: SENNA W/DOCUSATE (SENOKOT S) TABLET PO SCH ×2 (10:41→20:58)
[2018-12-05] MEDS: OMEGA 3 (FISH OIL) 1000 MG CAP PO SCH (10:41)
[2018-12-05] MEDS: VITAMIN D3 5,000 UNITS (CHOLECALCIFEROL ) CAPSULE PO SCH (10:41)
[2018-12-05] MEDS: LINAGLIPTIN (TRADJENTA) 5 MG TABLET PO SCH (10:50)
--- NOTE | 2018-12-05 11:31 | NUR ---
Per nursing, admission FIM score for "Bowel Level of Assist" should be 1.
--- NOTE | 2018-12-05 11:55 | Occupational Ther Daily Note ---
OT Current Status-Daily Note Subjective Pt alert sitting in w/c upon OT arrival. Pt agrees to therapy. Mental Status/Objective Patient Orientation: Person, Place, Time, Situation Therapy Code Descriptions/Definitions Functional [place] Measure: 0=Not Assessed/NA 4=Minimal Assistance 1=Total Assistance 5=Supervision or Setup 2=Maximal Assistance 6=Modified [place] 3=Moderate Assistance 7=Complete [place] Attachments: Colostomy/Ileostomy, IV (midline), Oxygen ADL-Treatment Therapy Code Descriptions/Definitions Functional [place] Measure: 0=Not Assessed/NA 4=Minimal Assistance 1=Total Assistance 5=Supervision or Setup 2=Maximal Assistance 6=Modified [place] 3=Moderate Assistance 7=Complete [place] Therapy Quality Codes: 6 Independent with activity with or without an assistive device 5 Patient requires set up or clean up by helper. Patient completes activity by themselves 4 Supervision or touching assist (CGA). [place] provide cues , steadying assist 3 The helper provides less than half the effort to complete the activity 2 The helper provides more than half the effort to complete the activity 1 Dependent. The helper does all the effort to complete an activity 7 Patient refused to complete or attempt activity 9 The patient did not perform the activity before the current illness or injury 88 Not attempted due to Medical conditions or safety concerns Grooming (FIM): 5 (Pt brushed hair and donned dentures sitting in w/c sink, set up. Supervision.) Oral Hygiene (QC): 5 Bathing (FIM): 3 (Pt able to wash all areas sitting on shower bench using long handle sponge, grabbar and hand held shower except R underarm and did not attempt to cleanse buttocks or martha area.) Bathing Location: L Arm, R Arm, L Upper Leg, R Upper Leg, L Lower Leg (including foot), R Lower Leg (including foot), Chest, Abdomen Shower/Bathe Self (QC): 3 Upper Body (FIM): 5 (Pt able to don/doff upperbody clothing self, set up.) Upper Body Dressing (QC): 5 Lower Body Dressing (FIM): 3 (Pt required AE to doff socks. Pt able to doff gown self. Pt able to don briefs and pants to knee. Pt required assist to hike above waist in standing while pt held onto grabbar with one hand. Pt able to don R sock, required assist for L sock. Pt would not use sock aide.) Lower Body Dressing (QC): 3 On/Off Footwear (QC): 3 Shower Transfer(FIM): 5 (Pt required FWW, grabbar, and shower tub bench. ) Education OT Patient Education: Modified ADL techniques Teaching Recipient: Patient Teaching Methods: Discussion Response to Teaching: Verbalize Understanding OT Short Term Goals Short Term Goals Time Frame: Dec 08, 2018 Eating(FIM): 5 Grooming(FIM): 5 Bathing(FIM): 4 Upper Body Dressing(FIM): 4 Lower Body Dressing(FIM): 3 Toileting(FIM): 3 Transfers (B,C,W/C) (FIM): 4 Toilet/Commode Transfer(FIM): 4 Shower Transfer(FIM): 4 Additional Short Term Goals: 1-Demonstrate ADL Tasks, 2-Verbalize Unders tanding, 3-ImproveStrength/Juan F 1=Demonstrate adherence to instructed precautions during ADL tasks. 2=Patient will verbalize/demonstrate understanding of assistive devices/modifications for ADL. 3=Patient will improve strength/tolerance for activity to enable patient to perform ADL's. OT Career Guidance Technician Goals Career Guidance Technician Goals Time Frame: Dec 22, 2018 Eating (FIM): 6 Eating (QC): 6 Groomin Oral Hygiene (QC): 6 Bathing(FIM): 5 Shower/Bathe Self (QC): 4 Upper Body Dressing(FIM): 5 Upper Body Dressing (QC): 4 Lower Body Dressing(FIM): 5 Lower Body Dressing (QC): 4 On/Off Footwear (QC): 4 Toileting(FIM): 6 Toileting Hygiene (QC): 6 Transfers (B,C,W/C) (FIM): 6 Toilet/Commode Transfer(FIM): 6 Toilet/Commode Transfer (QC): 6 Shower Transfer(FIM): 5 Additional Goals: 1-Demonstrate ADL Tasks, 2-Verbalize Understanding, 3-ImproveStrength/Juan F 1=Demonstrate adherence to instructed precautions during ADL tasks. 2=Patient will verbalize/demonstrate understanding of assistive devices/modifications for ADL. 3=Patient will improve strength/tolerance for activity to enable patient to perform ADL's. OT Education/Plan Problem List/Assessment Assessment: Decreased Activ Tolerance, Decreased UE Strength, Impaired Coordination, Impaired Funct Balance, Impaired Self-Care Skills Discharge Recommendations Plan/Recommendations: Continue POC Treatment Plan/Plan of Care Patient would benefit from OT for education, treatment and training to promote independence in ADL's, mobility, safety and/or upper extremity function for ADL's. Plan of Care: ADL Retraining, Functional Mobility, Group Exercise/Act as Ind, UE Funct Exercise/Act Treatment Duration: Dec 22, 2018 Frequency: At least 5 of 7 days/Wk (IRF) Estimated Hrs Per Day: 1.5 hours per day Agreement: Yes Rehab Potential: Good Time/GCodes Start Time: 10:45 Stop Time: 11:45 Total Time Billed (hr/min): 60 Billed Treatment Time 1 visit 4 ADL (60 min) CEDRIC DURANT Dec 05, 2018 11:55
--- NOTE | 2018-12-05 13:38 | NUR ---
BARRETT contacted Sheryl at to follow up on requested onsite evaluation. Sheryl states that due to fistula drainage to colostomy type appliance, patient would be disqualified for TOMI placement. Addendum: 12/05/18 at 1517 by MANUEL BLOCK BARRETT spoke with Dr. Olvera regarding length of need for colostomy appliance, typical length is 6 weeks; however, based on minimal output, Dr. Olvera is hopeful that patient may no longer need it after another two weeks.
--- NOTE | 2018-12-05 14:14 | Occupational Ther Daily Note ---
OT Current Status-Daily Note Subjective Pt lying in bed. Pt agrees to therapy. Mental Status/Objective Therapy Code Descriptions/Definitions Functional [place] Measure: 0=Not Assessed/NA 4=Minimal Assistance 1=Total Assistance 5=Supervision or Setup 2=Maximal Assistance 6=Modified [place] 3=Moderate Assistance 7=Complete [place] ADL-Treatment Therapy Code Descriptions/Definitions Functional [place] Measure: 0=Not Assessed/NA 4=Minimal Assistance 1=Total Assistance 5=Supervision or Setup 2=Maximal Assistance 6=Modified [place] 3=Moderate Assistance 7=Complete [place] Therapy Quality Codes: 6 Independent with activity with or without an assistive device 5 Patient requires set up or clean up by helper. Patient completes activity by themselves 4 Supervision or touching assist (CGA). [place] provide cues , steadying assist 3 The helper provides less than half the effort to complete the activity 2 The helper provides more than half the effort to complete the activity 1 Dependent. The helper does all the effort to complete an activity 7 Patient refused to complete or attempt activity 9 The patient did not perform the activity before the current illness or injury 88 Not attempted due to Medical conditions or safety concerns Other Treatment Pt participated in upperbody exercise using medium resistance theraband for duration 15 min to increase strength for functional daily activity tasks. Pt left lying in bed, call light and phone in reach. OT Short Term Goals Short Term Goals Time Frame: Dec 08, 2018 Eating(FIM): 5 Grooming(FIM): 5 Bathing(FIM): 4 Upper Body Dressing(FIM): 4 Lower Body Dressing(FIM): 3 Toileting(FIM): 3 Transfers (B,C,W/C) (FIM): 4 Toilet/Commode Transfer(FIM): 4 Shower Transfer(FIM): 4 Additional Short Term Goals: 1-Demonstrate ADL Tasks, 2-Verbalize Understanding, 3-ImproveStrength/Juan F 1=Demonstrate adherence to instructed precautions during ADL tasks. 2=Patient will verbalize/demonstrate understanding of assistive devices/modifications for ADL. 3=Patient will improve strength/tolerance for activity to enable patient to perform ADL's. OT Prison Goals Headwaitress Goals Time Frame: Dec 22, 2018 Eating (FIM): 6 Eating (QC): 6 Groomin Oral Hygiene (QC): 6 Bathing(FIM): 5 Shower/Bathe Self (QC): 4 Upper Body Dressing(FIM): 5 Upper Body Dressing (QC): 4 Lower Body Dressing(FIM): 5 Lower Body Dressing (QC): 4 On/Off Footwear (QC): 4 Toileting(FIM): 6 Toileting Hygiene (QC): 6 Transfers (B,C,W/C) (FIM): 6 Toilet/Commode Transfer(FIM): 6 Toilet/Commode Transfer (QC): 6 Shower Transfer(FIM): 5 Additional Goals: 1-Demonstrate ADL Tasks, 2-Verbalize Understanding, 3- ImproveStrength/Juan F 1=Demonstrate adherence to instructed precautions during ADL tasks. 2=Patient will verbalize/demonstrate understanding of assistive devices/modifications for ADL. 3=Patient will improve strength/tolerance for activity to enable patient to perform ADL's. OT Education/Plan Problem List/Assessment Assessment: Decreased Activ Tolerance, Decreased UE Strength, Dependent Transfers, Impaired Funct Balance, Impaired Self-Care Skills Discharge Recommendations Plan/Recommendations: Continue POC Treatment Plan/Plan of Care Patient would benefit from OT for education, treatment and training to promote independence in ADL's, mobility, safety and/or upper extremity function for ADL's. Plan of Care: ADL Retraining, Functional Mobility, Group Exercise/Act as Ind, UE Funct Exercise/Act Treatment Duration: Dec 22, 2018 Frequency: At least 5 of 7 days/Wk (IRF) Estimated Hrs Per Day: 1.5 hours per day Agreement: Yes Rehab Potential: Good Time/GCodes Start Time: 13:30 Stop Time: 13:45 Total Time Billed (hr/min): 15 Billed Treatment Time 1 EX (15 min) CEDRIC DURANT Dec 05, 2018 14:14
--- NOTE | 2018-12-05 15:07 | Cardiology Progress Note ---
Subjective Date Seen by Provider: Dec 05, 2018 Time Seen by Provider: 11:00 Subjective/Events-last exam Patient was seen at bedside, she was sitting in a chair, feeling better, still having drainage from the fistula. Review of Systems General: No Chills, No Night Sweats; Fatigue, Malaise; No Appetite, No Other HEENT: No Head Aches, No Visual Changes, No Eye Pain, No Ear Pain, No Dysphasia, No Sinus Congestion, No Post Nasal Drip, No Sore Throat, No Other Pulmonary: Dyspnea; No Cough, No Pleuritic Chest Pain, No Other Cardiovascular: No: Chest Pain, Palpitations, Orthopnea, Paroxysmal Noc. Dyspnea, Edema, Lt Headedness, Other Objective-Cardiology Exam Last Set of Vital Signs Vital Signs 12/05/18 12/05/18 05:37 09:32 Temp 98.1 Pulse 76 Resp 18 B/P (MAP) 113/70 (84) Pulse Ox 96 O2 Delivery Nasal Cannula O2 Flow Rate 4.00 Capillary Refill : I&O Intake and Output 12/05/18 00:00 Intake Total 1486 ml Output Total 3500 ml Balance -2014 ml Intake Oral 1045 ml IV Total 441 ml Output Urine Total 3450 ml Gastric Drainage Total 50 ml # Bowel Movements 3 General: Alert, Oriented X3, Cooperative HEENT: Atraumatic, PERRLA Neck: Supple, No JVD, No Thyromegaly Lungs: Clear to Auscultation, Normal Air Movement Heart: Regular Rate, Normal S1, Normal S2, No Murmurs Abdomen: Normal Bowel Sounds, Soft, No Tenderness, No Hepatosplenomegaly, No Masses Extremities: No Clubbing, No Cyanosis, No Edema, Normal Pulses, No Tenderness/Swelling Skin: No Rashes, No Breakdown, No Significant Lesion Neuro: Normal Speech, Cranial Nerves 3-12 NL Psych/Mental Status: Mental Status NL, Mood NL Results Lab Laboratory Tests 12/05/18 05:43 A/P-Cardiology Admission Diagnosis Respiratory failure COPD HTN HLP Assessment/Plan Status post respiratory failure, resolved, using C Pap on and off, Continue to monitor New enterocutaneous fistula postoperatively, 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 Olvera Acute non-ST elevation myocardial infarction, poor R-wave progression in the anterior leads, probably type II myocardial infarctions due to respiratory failure, underlying coronary artery disease cannot be entirely excluded. Echocardiogram showed normal LV function. Continue with conservative management at this time, continue to monitor. Troponin level trended down, no acute EKG changes suggestive of active ischemia, conservative management at this time. Continue to monitor Hypertension, controlled. Continue to monitor Hyperlipidemia maintained on Lipitor, on hold at this point COPD, oxygen dependent, receiving therapy. Morbid obesity Diabetes mellitus, followed and managed by primary care physician History of tobaccoism Generalized debility/weakness. Continue to monitor. Clinical Quality Measures DVT/VTE Risk/Contraindication: Risk Factor Score Per Nursin RFS Level Per Nursing on Admit: 4+=Very High AUSTEN MARTÍNEZ MD Dec 05, 2018 3:07 pm
--- NOTE | 2018-12-05 15:21 | Progress Note ---
Subjective Date Seen by a Provider: Dec 05, 2018 Time Seen by a Provider: 15:00 Subjective/Events-last exam doing ok. major removed. ambulating better to point of ability to shower and use toilet. stable resp status. no fever/chills. fistula output decreasing Objective Exam Vital Signs Date Time Temp Pulse Resp B/P (MAP) Pulse Ox O2 Delivery O2 Flow Rate FiO2 12/05/18 09:32 96 Nasal Cannula 4.00 12/05/18 08:10 High Flow N/C 4.00 12/05/18 05:37 98.1 76 18 113/70 (84) 90 High Flow N/C 4.00 12/04/18 20:49 High Flow N/C 4.00 12/04/18 20:40 78 18 107/69 (82) 96 High Flow N/C 4.00 12/04/18 20:10 94 Nasal Cannula 3.00 12/04/18 17:14 99.4 75 18 127/82 (97) 95 High Flow N/C 4.00 I & O 12/05/18 07:00 Intake Total 1661 ml Output Total 3115 ml Balance -1454 ml Capillary Refill : General Appearance: No Apparent Distress HEENT: PERRL/EOMI Neck: Full Range of Motion Respiratory: Decreased Breath Sounds, Rhonci Cardiovascular: Regular Rate, Rhythm Gastrointestinal: normal bowel sounds, soft, other (fistula intact, no redness/erythema, has right flank hematoma from lovenox however appears unchanged.) Extremity: Normal Capillary Refill Neurologic/Psychiatric: Alert, Oriented x3 Skin: Normal Color Results Lab Laboratory Tests 12/04/18 17:05: Glucometer 161H 12/04/18 20:40: Glucometer 201H 12/05/18 05:29: Glucometer 132H 12/05/18 05:43: White Blood Count 8.4, Red Blood Count 3.72L, Hemoglobin 10.5L, Hematocrit 34L, Mean Corpuscular Volume 92, Mean Corpuscular Hemoglobin 28, Mean Corpuscular Hemoglobin Concent 31L, Red Cell Distribution Width 16.2H, Platelet Count 278, Mean Platelet Volume 10.0, Neutrophils (%) (Auto) 58, Lymphocytes (%) (Auto) 23, Monocytes (%) (Auto) 13H, Eosinophils (%) (Auto) 3, Basophils (%) (Auto) 2, Neutrophils # (Auto) 4.9, Lymphocytes # (Auto) 2.0, Monocytes # (Auto) 1.1H, Eosinophils # (Auto) 0.3, Basophils # (Auto) 0.2H, Sodium Level 140, Potassium Level 4.3, Chloride Level 106, Carbon Dioxide Level 24, Anion Gap 10, Blood Urea Nitrogen 26H, Creatinine 0.89, Estimat Glomerular Filtration Rate > 60, BUN/Cr eatinine Ratio 29, Glucose Level 136H, Calcium Level 8.7, Corrected Calcium 9.3, Total Bilirubin 0.3, Aspartate Amino Transf (AST/SGOT) 11, Alanine Aminotransferase (ALT/SGPT) 15, Alkaline Phosphatase 56, Total Protein 7.0, Albumin 3.2 12/05/18 12:01: Glucometer 202H Assessment/Plan Assessment/Plan Assess & Plan/Chief Complaint s/p recurrent inc hernia repair with exacerbation COPD, exacerbation CHF, hypergylemia and developement enterocutaneous fistula. cont current care. will continue iv abx until fistula closed. cont octreotide as well. may restart lovenox per surg however would try different locations. Clinical Quality Measures DVT/VTE Risk/Contraindication: Risk Factor Score Per Nursin RFS Level Per Nursing on Admit: 4+=Very High WENDI ELIZABETH MD Dec 05, 2018 15:21
--- NOTE | 2018-12-05 16:02 | Speech Therapy Daily Note ---
Speech Daily Progress Note Subjective Date Seen by Provider: Dec 05, 2018 Time Seen by Provider: 00:30 The patient states she is not having any difficulty eating at this time. Objective The patient utilizes compensatory strategies as trained at 90% with minimal verbal cues. Assessment Assessment Current Status: Good Progress Treatment Plan Continue Plan of Care Communication Comprehension: 7 Expression: 7 Social Cognition Social Interaction: 7 Problem Solvin Memory: 6 Speech Short Term Goals Short Term Goals Short Term Goals 1) The patient will tolerate least restrictive diet level without s/s of aspiration at 90% or greater. 2) The patient will utilize compensatory strategies as trained for safe oral intake at 90% or greater given minimal verbal cues. Speech Per Diem Goals Half-Way Goals The patient will maintain adequate nutrition/hydration via safe effective swallow function. Speech-Plan Patient/Family Goals Patient/Family Goals: The patient plans on returning to her former living arrangement post rehab. Treatment Plan Speech Therapy Treatment Plan: Continue Plan of Care The patient is progressing well with skilled ST. Treatment Duration: Dec 09, 2018 Frequency: 1 time per week Estimated Hrs Per Day: .25 hour per day Rehab Potential: Good Barriers to Learning: Patient is progressing slower with strength Pt/Family Agrees to Plan: Yes Safety Risks/Education Teaching Recipient: Patient Teaching Methods: Demonstration, Discussion Response to Teaching: Verbalize Understanding, Return Demonstration Education Topics Provided: Continued safety with oral intake. Time Speech Therapy Time In: 15:30 Speech Therapy Time Out: 16:00 Total Billed Time: 30 Billed Treatment Time 1SADIE BETHANIA ST Dec 05, 2018 16:02
[2018-12-05 18:00] VITALS: BP 120/69
--- NOTE | 2018-12-05 19:14 | NUR ---
bedside report received from DAVE JETT, assume care of pt
[2018-12-05] MEDS ORDERED: NICOTINE 21 MG (NICODERM) PATCH ONE (20:32)
--- NOTE | 2018-12-05 20:52 | NUR ---
c/o pain level 8/10 on numeric scale Ultram 50mg po given pt refused Colace & Senzakiyaot, fsbs 167 no ss insulin req
--- NOTE | 2018-12-05 21:30 | NUR ---
states pain level n2/10 on numeric scale, up to bathroom then up to W/C
[2018-12-06] MEDS: PIPERACILLIN/TAZOBACTAM (BULK) 4.5 GM in NS (IVPB) 100 ML IV SCH ×3 (00:12→18:46)
[2018-12-06] MEDS: OCTREOTIDE INJECTION 500 MCG in NS (IVPB) 97.5 ML IV SCH ×3 (02:47→23:12)
[2018-12-06 05:55] VITALS: BP 120/69
[2018-12-06] MEDS: inSUlin ASPART (NovoLOG) 1 UNIT/0.01 ML (CHARGE PER UNIT) SC SCH ×5 (06:00→20:50)
--- NOTE | 2018-12-06 07:08 | NUR ---
bedside report given to LONI JETT
[2018-12-06] MEDS: RT-ADVAIR HFA 115/21 MCG PER PUFF IH SCH ×2 (07:55→19:52)
[2018-12-06] MEDS: NICOTINE PATCH REMOVAL TP SCH (08:00)
[2018-12-06] MEDS: DOCUSATE SODIUM 100 MG (COLACE) CAP PO SCH ×2 (08:00→21:30)
--- NOTE | 2018-12-06 08:15 | Cardiology Progress Note ---
Subjective Date Seen by Provider: Dec 06, 2018 Time Seen by Provider: 08:14 Subjective/Events-last exam Patient in bed, denies any chest pain or dyspnea. C/o leaking around fistula site this morning. Review of Systems General: No Chills, No Night Sweats; Fatigue, Malaise; No Appetite, No Other HEENT: No Head Aches, No Visual Changes, No Eye Pain, No Ear Pain, No Dysphasia, No Sinus Congestion, No Post Nasal Drip, No Sore Throat, No Other Pulmonary: Dyspnea; No Cough, No Pleuritic Chest Pain, No Other Cardiovascular: No: Chest Pain, Palpitations, Orthopnea, Paroxysmal Noc. Dyspnea, Edema, Lt Headedness, Other Objective-Cardiology Exam Last Set of Vital Signs Vital Signs 12/06/18 12/06/18 12/06/18 12/06/18 05:55 07:57 08:35 09:00 Temp 97.7 Pulse 79 Resp 18 B/P (MAP) 113/70 (84) Pulse Ox 95 O2 Delivery High Flow N/C O2 Flow Rate 4.00 Capillary Refill : I&O Intake and Output 12/06/18 00:00 Intake Total 1480 ml Output Total 965 ml Balance 515 ml Intake Oral 1240 ml IV Total 240 ml Output Urine Total 950 ml Gastric Drainage Total 15 ml # Voids 5 # Bowel Movements 4 General: Alert, Oriented X3, Cooperative HEENT: Atraumatic, PERRLA Neck: Supple, No JVD, No Thyromegaly Lungs: Clear to Auscultation, Normal Air Movement Heart: Regular Rate, Normal S1, Normal S2, No Murmurs Abdomen: Normal Bowel Sounds, Soft, No Tenderness, No Hepatosplenomegaly, No Masses Extremities: No Clubbing, No Cyanosis, No Edema, Normal Pulses, No Tenderness/Swelling Skin: No Rashes, No Breakdown, No Significant Lesion Neuro: Normal Speech, Cranial Nerves 3-12 NL Psych/Mental Status: Mental Status NL, Mood NL A/P-Cardiology Admission Diagnosis Respiratory failure COPD HTN HLP Assessment/Plan Status post respiratory failure, resolved, using C Pap on and off, Continue to monitor Enterocutaneous fistula postoperatively, 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 Olvera Acute non-ST elevation myocardial infarction, poor R-wave progression in the anterior leads, probably type II myocardial infarctions due to respiratory failure, underlying coronary artery disease cannot be entirely excluded. Echocardiogram showed normal LV function. Continue with conservative management at this time, continue to monitor. Troponin level trended down, no acute EKG changes suggestive of active ischemia, conservative management at this time. Continue to monitor Hypertension, controlled. Continue to monitor Hyperlipidemia maintained on Lipitor, on hold at this point COPD, oxygen dependent, receiving therapy. Morbid obesity Diabetes mellitus, followed and managed by primary care physician History of tobaccoism Generalized debility/weakness. Continue to monitor. Clinical Quality Measures DVT/VTE Risk/Contraindication: Risk Factor Score Per Nursin RFS Level Per Nursing on Admit: 4+=Very High Supervisory-Addendum Brief Supervisory Addendum Participated in pt care: history, MDM, physical Personally performed: exam, history, MDM Care discussed with: ASHLEIGH Notes: Patient was seen and evaluated, laying down comfortably in bed, denied any active pain. Having mild fatigue and loss of energy. Still having myopathy. Still having discharge around the fistula. Continue to monitor blood pressure and lipids ESAU WILCOX Dec 06, 2018 08:15 AUSTEN MARTÍNEZ MD Dec 06, 2018 15:08
[2018-12-06 08:35] VITALS: BP 113/70
[2018-12-06] MEDS: meTOprolol TARTRATE 25 MG (LOPRESSOR) TABLET PO SCH ×3 (08:37→21:26)
[2018-12-06] MEDS: OMEGA 3 (FISH OIL) 1000 MG CAP PO SCH (08:37)
[2018-12-06] MEDS: amLODIPine 10 MG (NORVASC) TAB PO SCH (08:37)
[2018-12-06] MEDS: MAGNESIUM OXIDE (MAG-OX)400 MG TAB PO SCH (08:37)
[2018-12-06] MEDS: lisINopril 20 MG (PRINIVIL) TABLET PO SCH (08:37)
[2018-12-06] MEDS: VITAMIN D3 5,000 UNITS (CHOLECALCIFEROL ) CAPSULE PO SCH (08:37)
[2018-12-06] MEDS: LINAGLIPTIN (TRADJENTA) 5 MG TABLET PO SCH (08:37)
[2018-12-06] MEDS: FUROSEMIDE 20 MG (LASIX) TAB PO SCH (08:37)
[2018-12-06] MEDS: buPROPion SR 150 MG (WELLBUTRIN SR) TAB PO SCH (08:37)
[2018-12-06] MEDS: DULoxetine 30 MG (CYMBALTA) CAP PO SCH (08:37)
[2018-12-06] MEDS: NICOTINE 21 MG (NICODERM) PATCH TD SCH (08:38)
--- NOTE | 2018-12-06 08:40 | PM&R Progress Note ---
Subjective HPI/CC On Admission Date Seen by Provider: Dec 06, 2018 Time Seen by Provider: 08:30 Chief complaint: Disuse myopathy. HPI: This is a 63yoWF [facility] Pt known to me from last week hospital admission when she required intubation for acute on chronic respiratory failure with obesity-hypoventilation syndrome following hernia repair. She was able to be extubated without complication and continued to be on high flow oxygen and had suffered these issues following an uncomplicated ventral hernia surgery. Due to her morbid obesity and likely chronic CO2 retention she went into respiratory failure, had significant difficulties with multisystem organ dysfunction and was eventually able to move down to fourth floor but repeat CT scam obtained due to elevated white count per Dr. Olvera showed some sort of fistula. 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 She remained on TPN, clear liquid diet only and IV antibiotics to help heal that area. At this current time, the Pt is denying any pain and is getting around better since she was living independently and ambulating at home. The goal is to return to near prior level of function and be able to return back to independent level of living. Subjective/Events-last exam Pt will require Zosyn for a total of 6 weeks. Pet pass in progress. Right flank hematoma much improved so will obtain approval from Dr. Olvera to resume Lovenox for DVT prophylaxis. After rounds he approved the restarting of it Ostomy bag Ieaking so will reach out to Dr. Olvera and Ostomy nurse. Bowel movements today regular. Participating in all therapy. Check meds and labs Conferred with RN Reviewed therapy notes Review of Systems General: Fatigue Gastrointestinal: Abdominal Pain Objective Exam Vital Signs Vital Signs Date Time Temp Pulse Resp B/P (MAP) Pulse Ox O2 Delivery O2 Flow Rate FiO2 12/06/18 19:50 95 Nasal Cannula 3.00 12/06/18 17:45 97.4 75 20 111/75 (87) Capillary Refill : General Appearance: No Apparent Distress, WD/WN, Chronically ill, Obese HEENT: PERRL/EOMI, Normal ENT Inspection, Pharynx Normal, Moist Mucous Me mbranes Neck: Full Range of Motion, Normal Inspection, Non Tender, Supple Respiratory: Chest Non Tender, Lungs Clear, No Accessory Muscle Use, No Respiratory Distress, Decreased Breath Sounds Cardiovascular: Regular Rate, Rhythm, No Edema, No Gallop, No JVD, No Murmur Gastrointestinal: Normal Bowel Sounds, No Organomegaly, No Pulsatile Mass, Soft, Tenderness, Other (fistula) Back: Normal Inspection, No CVA Tenderness, No Vertebral Tenderness Extremity: Normal Capillary Refill, Normal Inspection, Normal Range of Motion, Non Tender, No Calf Tenderness, No Pedal Edema Neurologic/Psychiatric: Alert, Oriented x3, No Motor/Sensory Deficits, Normal Mood/Affect, Motor Weakness (lower legs 3/5) Skin: Normal Color, Warm/Dry, Other (right flank hematoma?) Lymphatic: No Adenopathy Results/Procedures Lab Patient resulted labs reviewed. FIM Transfers Therapy Code Descriptions/Definitions Functional [place] Measure: 0=Not Assessed/NA 4=Minimal Assistance 1=Total Assistance 5=Supervision or Setup 2=Maximal Assistance 6=Modified [place] 3=Moderate Assistance 7=Complete [place] Therapy Quality Codes: 6 Independent with activity with or without an assistive device 5 Patient requires set up or clean up by helper. Patient completes activity by themselves 4 Supervision or touching assist (CGA). [place] provide cues , steadying assist 3 The helper provides less than half the effort to complete the activity 2 The helper provides more than half the effort to complete the activity 1 Dependent. The helper does all the effort to complete an activity 7 Patient refused to complete or attempt activity 9 The patient did not perform the activity before the current illness or injury 88 Not attempted due to Medical conditions or safety concerns Transfers (B, C, W/C) (FIM): 6 Scootin Rollin Roll Left to Right (QC): 3 Supine to/from Sit: 4 Sit to/from Stand: 6 Sit to Lying (QC): 3 Sit to Stand (QC): 6 Chair/Jvu-go-Dvqdu Xfer(QC): 4 (CGA with assist to manage her walker) Bed to/from Chair: 4 Car Transfer (QC): 88 (Unsafe to attempt car transfer at this time. ) Gait Training Does the Patient Walk?: Yes Gait (FIM): 2 Distance (FIM): 2=350-20 ft Distance: 75' x 6 Walk 10 feet (QC): 6 Walk 50 ft with 2 Turns(QC): 6 Walk 150 ft (QC): 88 Walking 10ft/uneven surface-QC: 88 Gait Level of Assist: 6 Gait Persons Needed: 1 Gait Assistive Device: FWW Wheelchair Training Does the Pt Use a Wheelchair?: No Stair Training Stair Training: Handrails/: uses walker Stairs (FIM): 1 #of Steps: 1 1 Step (curb) (QC): 5 4 Steps (QC): 88 12 Steps (QC): 88 Stairs: Pattern: Step to Level of Assist: 5 Balance Picking up an Object (QC): 88 Mental Status/Objective Comprehension: 7 Expression: 7 Social Interaction: 7 Problem Solvin Memory: 6 ADL-Treatment Groomin (Pt brushed hair and donned dentures sitting in w/c sink, set up. Supervision.) Oral Hygiene (QC): 5 Bathin (Pt able to wash all areas sitting on shower bench using long handle sponge, grabbar and hand held shower except R underarm and did not attempt to cleanse buttocks or martha area.) Bathing Location: L Arm, R Arm, L Upper Leg, R Upper Leg, L Lower Leg (including foot), R Lower Leg (including foot), Chest, Abdomen Shower/Bathe Self (QC): 3 Upper Extremity Dressin (Pt able to don/doff upperbody clothing self, set up.) Upper Body Dressing (QC): 5 Lower Extremity Dressin (Pt required AE to doff socks. Pt able to doff gown self. Pt able to don briefs and pants to knee. Pt required assist to hike above waist in standing while pt held onto grabbar with one hand. Pt able to don R sock, required assist for L sock. Pt would not use sock aide.) Lower Body Dressing (QC): 3 On/Off Footwear (QC): 3 Shower: 5 (Pt required FWW, grabbar, and shower tub bench. ) Assessment/Plan Assessment and Plan Assess & Plan/Chief Complaint Plan: IRF protocol OOB in chair most of day TPN DC per Dr Olvera Advance diet doing well Right flank hematoma? Improved so will restart Lovenox O2 maintained PLOF was ambulating at home Ostomy care per surgical service to help with leakage Monitor labs prn Pet pass (1) Myopathy (2) COPD (chronic obstructive pulmonary disease) Status: Chronic Qualifiers: COPD type: unspecified COPD Qualified Codes: J44.9 - Chronic obstructive pulmonary disease, unspecified (3) Hypokalemia Status: Acute (4) Diabetes mellitus, type 2 Status: Chronic Qualifiers: Diabetes mellitus terminal system operator insulin use: with penitentiary use Diabetes mellitus complication status: with other specified complication Qualified Codes: E11.69 - Type 2 diabetes mellitus with other specified complication; Z79.4 - intermodal customer service (current) use of insulin (5) Ventilator dependence Status: Resolved Resolution Date/Time: 11/25/18 @ 20:44 (6) Enterocutaneous fistula Status: Acute (7) Obesity hypoventilation syndrome Status: Chronic (8) On total parenteral nutrition (TPN) Status: Acute (9) BRYAAN treated with BiPAP Status: Chronic (10) Smoker Status: Chronic ALEIDA LICEA DO Dec 06, 2018 08:40
[2018-12-06] MEDS: FAMOTIDINE 20MG/2ML IV (PEPCID) IVP SCH (08:41)
[2018-12-06] MEDS: FLUCONAZOLE 200 MG/100 ML 50 ML, EMPTY IV BAG (PVC) 1 EA IV SCH ×2 (08:41)
[2018-12-06] MEDS: SENNA W/DOCUSATE (SENOKOT S) TABLET PO SCH ×2 (09:00→21:30)
--- NOTE | 2018-12-06 10:30 | NUR ---
Contacted by Tory JETT caring for pt. Pt fistula drainage device was leaking. Fistula output has decreased significantly. RN spoke with Dr. Olvera reference just doing wet to dry and changing dressing PRN to protect periwound skin from breakdown. Dr. Olvera agreed to try new dressing application. I protected Periwound skin with skin prep and duoderm dressing and packed wound with 1 piece moist kerlex being sure to loosely pack tunneling area with the 1 piece of kerlex also. Layed 4X4 dressing over the top with ABD and medipore tape. Spoke with pt the importance of contacting RN if dressing becomes moist.
--- NOTE | 2018-12-06 10:33 | Physical Therapy Daily Note ---
PT Daily Note-Current Subjective Patient reports she is not feeling well and is feeling "blue". RN notified. Patient's ostomy is leaking requiring nursing staff to tend to situation. Mental Status Patient Orientation: Normal For Age Attachments: Oxygen, IV Transfers Therapy Code Descriptions/Definitions Functional [place] Measure: 0=Not Assessed/NA 4=Minimal Assistance 1=Total Assistance 5=Supervision or Setup 2=Maximal Assistance 6=Modified [place] 3=Moderate Assistance 7=Complete [place] Therapy Quality Codes: 6 Independent with activity with or without an assistive device 5 Patient requires set up or clean up by helper. Patient completes activity by themselves 4 Supervision or touching assist (CGA). [place] provide cues , steadying assist 3 The helper provides less than half the effort to complete the activity 2 The helper provides more than half the effort to complete the activity 1 Dependent. The helper does all the effort to complete an activity 7 Patient refused to complete or attempt activity 9 The patient did not perform the activity before the current illness or injury 88 Not attempted due to Medical conditions or safety concerns Transfers (B, C, W/C) (FIM): 5 Scootin Rollin Roll Left to Right (QC): 6 Supine to/from Sit: 6 Sit to/from Stand: 5 Sit to Lying (QC): 6 Sit to Stand (QC): 5 Chair/Lwo-mv-Oyyjf Xfer(QC): 5 Bed to/from Chair: 5 patient ambulated to restroom requiring assistance to cleanse and change undergarment. Gait Training Does the Patient Walk?: Yes Gait (FIM): 1 Distance (FIM): 1=up to 49 ft Distance: 20' x 2 Walk 10 feet (QC): 5 Gait Level of Assist: 5 Gait Assistive Device: FWW patient c/o left toes "tingling" RN is aware Assessment PT unable to get tractor trailer technician this a.m. due to ostomy leaking and nursing staff and wound care nursing tending to situation. PT will attempt to attain time this p.m., however, patient reports not feeling well. Rehab staff aware. PT Short Term Goals Short Term Goals Time Frame: Dec 15, 2018 Transfers (B,C,W/C) (FIM): 4 Gait (FIM): 4 Distance (FIM): 3=150 ft Gait Assistive Device: FWW PT Mcc Goals Mcc Goals PT [employer] Professional Goals Time Frame: Dec 29, 2018 Transfers (B,C,W/C) (FIM): 6 Sit to Lying (QC): 6 Lying-Sitting on Side/Bed(QC): 6 Sit to Stand (QC): 6 Rollin Roll Left to Right (QC): 6 Chair/Bev-gq-Vtldl Xfer(QC): 6 Car Transfer (QC): 6 Does the Patient Walk: Yes Gait (FIM): 6 Gait distance (FIM): 3=150 ft Walk 10 feet (QC): 6 Walk 10ft-Uneven Surface(QC): 6 Walk 50ft with 2 Turns (QC): 6 Walk 150 ft (QC): 6 Gait Assistive Device: FWW Does the Pt use WC or Scooter?: No Stairs (FIM): 5 # of Steps: 4 1 Step (curb) (QC): 6 4 Steps (QC): 6 12 Steps (QC): 9 Picking up an Object (QC): 9 PT Plan Treatment/Plan Treatment Plan: Continue Plan of Care Treatment Plan: Bed Mobility, Education, Functional Activity Juan F, Functional Strength, Group Therapy, Gait, Safety, Therapeutic Exercise, Transfers Treatment Duration: Dec 29, 2018 Frequency: At least 5 of 7 days/Wk (IRF) Estimated Hrs Per Day: 1.5 hours per day Patient and/or Family Agrees t: Yes Time/GCodes Time In: 1000 Time Out: 1030 Total Billed Treatment Time: 30 Total Billed Treatment 1 visit FA x 2 30 min BO MONTAGUE PT Dec 06, 2018 10:33
--- NOTE | 2018-12-06 10:40 | NUR ---
Pastoral care visit, w family outside room. Offered support and availability.
--- NOTE | 2018-12-06 13:02 | Occupational Ther Daily Note ---
OT Current Status-Daily Note Subjective Pt alert, lying in bed. Pt agrees to therapy. Pt having difficulties with fistula leaking around wound dressing and keeping dressing adhered during movement. Nrsg and wound care in room. LIGHT took over assisting wound care from nrsg. Mental Status/Objective Patient Orientation: Person, Place, Time, Situation Therapy Code Descriptions/Definitions Functional [place] Measure: 0=Not Assessed/NA 4=Minimal Assistance 1=Total Assistance 5=Supervision or Setup 2=Maximal Assistance 6=Modified [place] 3=Moderate Assistance 7=Complete [place] Attachments: Gonzalez Catheter, IV, Oxygen ADL-Treatment Therapy Code Descriptions/Definitions Functional [place] Measure: 0=Not Assessed/NA 4=Minimal Assistance 1=Total Assistance 5=Supervision or Setup 2=Maximal Assistance 6=Modified [place] 3=Moderate Assistance 7=Complete [place] Therapy Quality Codes: 6 Independent with activity with or without an assistive device 5 Patient requires set up or clean up by helper. Patient completes activity by themselves 4 Supervision or touching assist (CGA). [place] provide cues , steadying assist 3 The helper provides less than half the effort to complete the activity 2 The helper provides more than half the effort to complete the activity 1 Dependent. The helper does all the effort to complete an activity 7 Patient refused to complete or attempt activity 9 The patient did not perform the activity before the current illness or injury 88 Not attempted due to Medical conditions or safety concerns Other Treatment LIGHT assisted wound care nurse with pt positioning during treatment, UE placement and movement while nrsg was applying dressing. After wound care was complete, pt agreed to get out of bed. With HOB raised fully, pt able to go from supine to sit with close SBA. Due to pt just getting new dressing on assist given to pt with lower body dressing. Pt worked on UE gross motor tasks against gravity and fine motor manipulation. Pt was able to complete tasks appropriately and fair AROM with B shldrs, good AROM with elbow, wrist and fingers. Noted SOA with activity. After therapy, pt sitting in w/c with call light/phone in reach. Visitor present in room. All needs met in room. OT Short Term Goals Short Term Goals Time Frame: Dec 08, 2018 Eating(FIM): 5 Grooming(FIM): 5 Bathing(FIM): 4 Upper Body Dressing(FIM): 4 Lower Body Dressing(FIM): 3 Toileting(FIM): 3 Transfers (B,C,W/C) (FIM): 4 Toilet/Commode Transfer(FIM): 4 Shower Transfer(FIM): 4 Additional Short Term Goals: 1-Demonstrate ADL Tasks, 2-Verbalize Understanding, 3-ImproveStrength/Juan F 1=Demonstrate adherence to instructed precautions during ADL tasks. 2=Patient will verbalize/demonstrate understanding of assistive devices/modifications for ADL. 3=Patient will improve strength/tolerance for activity to enable patient to perform ADL's. OT Lining Marker Goals Lining Marker Goals Time Frame: Dec 22, 2018 Eating (FIM): 6 Eating (QC): 6 Groomin Oral Hygiene (QC): 6 Bathing(FIM): 5 Shower/Bathe Self (QC): 4 Upper Body Dressing(FIM): 5 Upper Body Dressing (QC): 4 Lower Body Dressing(FIM): 5 Lower Body Dressing (QC): 4 On/Off Footwear (QC): 4 Toileting(FIM): 6 Toileting Hygiene (QC): 6 Transfers (B,C,W/C) (FIM): 6 Toilet/Commode Transfer(FIM): 6 Toilet/Commode Transfer (QC): 6 Shower Transfer(FIM): 5 Additional Goals: 1-Demonstrate ADL Tasks, 2-Verbalize Understanding, 3- ImproveStrength/Juan F 1=Demonstrate adherence to instructed precautions during ADL tasks. 2=Patient will verbalize/demonstrate understanding of assistive devices/modifications for ADL. 3=Patient will improve strength/tolerance for activity to enable patient to perform ADL's. OT Education/Plan Problem List/Assessment Assessment: Decreased Activ Tolerance, Decreased UE Strength, Impaired Self- Care Skills Discharge Recommendations Plan/Recommendations: Continue POC Treatment Plan/Plan of Care Patient would benefit from OT for education, treatment and training to promote independence in ADL's, mobility, safety and/or upper extremity function for ADL's. Plan of Care: ADL Retraining, Functional Mobility, Group Exercise/Act as Ind, UE Funct Exercise/Act Treatment Duration: Dec 22, 2018 Frequency: At least 5 of 7 days/Wk (IRF) Estimated Hrs Per Day: 1.5 hours per day Agreement: Yes Rehab Potential: Good Time/GCodes Start Time: 10:45 Stop Time: 12:00 Total Time Billed (hr/min): 75 Billed Treatment Time 1 visit-FA 4 (55 min) EX 1 (20 min) CEDRIC DURANT Dec 06, 2018 13:02
--- NOTE | 2018-12-06 13:09 | Progress Note ---
Subjective Date Seen by a Provider: Dec 06, 2018 Time Seen by a Provider: 13:00 Subjective/Events-last exam doing ok. participating in PT well. no fever/chills. resp status stable. slowly decreasing fistula output. Objective Exam Vital Signs Date Time Temp Pulse Resp B/P (MAP) Pulse Ox O2 Delivery O2 Flow Rate FiO2 12/06/18 09:00 High Flow N/C 4.00 12/06/18 08:35 79 113/70 (84) 12/06/18 07:57 95 Nasal Cannula 3.00 12/06/18 05:55 97.7 74 18 120/69 (86) 94 Room Air 12/05/18 20:55 High Flow N/C 4.00 12/05/18 20:34 95 Nasal Cannula 3.00 12/05/18 18:00 97.7 74 18 120/69 (86) 94 Room Air I & O 12/06/18 07:00 Intake Total 1380 ml Output Total 20 ml Balance 1360 ml Capillary Refill : General Appearance: No Apparent Distress HEENT: PERRL/EOMI Neck: Full Range of Motion Respiratory: Decreased Breath Sounds, Rhonci Cardiovascular: Regular Rate, Rhythm Gastrointestinal: normal bowel sounds, soft Extremity: Normal Capillary Refill Neurologic/Psychiatric: Alert, Oriented x3 Skin: Normal Color Lymphatic: No Adenopathy Results Lab Laboratory Tests 12/05/18 16:33: Glucometer 118H 12/05/18 20:36: Glucometer 167H 12/06/18 05:50: Glucometer 132H 12/06/18 11:12: Glucometer 146H Assessment/Plan Assessment/Plan Assess & Plan/Chief Complaint s/p recurrent inc hernia repair with exacerbation COPD, exacerbation CHF, hypergylemia and developement enterocutaneous fistula. cont current care. will continue iv abx until fistula closed. cont octreotide as well. may restart lovenox per surg however would try different locations. Clinical Quality Measures DVT/VTE Risk/Contraindication: Risk Factor Score Per Nursin RFS Level Per Nursing on Admit: 4+=Very High WENDI ELIZABEHT MD Dec 06, 2018 13:09
--- NOTE | 2018-12-06 13:36 | Occupational Ther Daily Note ---
OT Current Status-Daily Note Subjective Pt laying in bed upon OT arrival. Pt agrees to therapy. Mental Status/Objective Patient Orientation: Person, Place, Time, Situation Therapy Code Descriptions/Definitions Functional [place] Measure: 0=Not Assessed/NA 4=Minimal Assistance 1=Total Assistance 5=Supervision or Setup 2=Maximal Assistance 6=Modified [place] 3=Moderate Assistance 7=Complete [place] Attachments: IV, Oxygen ADL-Treatment Therapy Code Descriptions/Definitions Functional [place] Measure: 0=Not Assessed/NA 4=Minimal Assistance 1=Total Assistance 5=Supervision or Setup 2=Maximal Assistance 6=Modified [place] 3=Moderate Assistance 7=Complete [place] Therapy Quality Codes: 6 Independent with activity with or without an assistive device 5 Patient requires set up or clean up by helper. Patient completes activity by themselves 4 Supervision or touching assist (CGA). [place] provide cues , steadying assist 3 The helper provides less than half the effort to complete the activity 2 The helper provides more than half the effort to complete the activity 1 Dependent. The helper does all the effort to complete an activity 7 Patient refused to complete or attempt activity 9 The patient did not perform the activity before the current illness or injury 88 Not attempted due to Medical conditions or safety concerns Other Treatment Pt participated in upper body exercises 3 reps 10x to increase strength for daily functional activities, using one UE at a time due to decreased strength and activity tolerance. Nrsg and physician in room during session. Pt left in bed, call light and phone in reach. Pts needs met. OT Short Term Goals Short Term Goals Time Frame: Dec 08, 2018 Eating(FIM): 5 Grooming(FIM): 5 Bathing(FIM): 4 Upper Body Dressing(FIM): 4 Lower Body Dressing(FIM): 3 Toileting(FIM): 3 Transfers (B,C,W/C) (FIM): 4 Toilet/Commode Transfer(FIM): 4 Shower Transfer(FIM): 4 Additional Short Term Goals: 1-Demonstrate ADL Tasks, 2-Verbalize Understanding, 3-ImproveStrength/Juan F 1=Demonstrate adherence to instructed precautions during ADL tasks. 2=Patient will verbalize/demonstrate understanding of assistive devices/modifications for ADL. 3=Patient will improve strength/tolerance for activity to enable patient to perform ADL's. OT Juvenile Probation Officer Goals Senior Care Goals Time Frame: Dec 22, 2018 Eating (FIM): 6 Eating (QC): 6 Groomin Oral Hygiene (QC): 6 Bathing(FIM): 5 Shower/Bathe Self (QC): 4 Upper Body Dressing(FIM): 5 Upper Body Dressing (QC): 4 Lower Body Dressing(FIM): 5 Lower Body Dressing (QC): 4 On/Off Footwear (QC): 4 Toileting(FIM): 6 Toileting Hygiene (QC): 6 Transfers (B,C,W/C) (FIM): 6 Toilet/Commode Transfer(FIM): 6 Toilet/Commode Transfer (QC): 6 Shower Transfer(FIM): 5 Additional Goals: 1-Demonstrate ADL Tasks, 2-Verbalize Understanding, 3- ImproveStrength/Juan F 1=Demonstrate adherence to instructed precautions during ADL tasks. 2=Patient will verbalize/demonstrate understanding of assistive devices/modifications for ADL. 3=Patient will improve strength/tolerance for activity to enable patient to perform ADL's. OT Education/Plan Problem List/Assessment Assessment: Decreased UE Strength Discharge Recommendations Plan/Recommendations: Continue POC Treatment Plan/Plan of Care Patient would benefit from OT for education, treatment and training to promote independence in ADL's, mobility, safety and/or upper extremity function for ADL's. Plan of Care: ADL Retraining, Functional Mobility, Group Exercise/Act as Ind, UE Funct Exercise/Act Treatment Duration: Dec 22, 2018 Frequency: At least 5 of 7 days/Wk (IRF) Estimated Hrs Per Day: 1.5 hours per day Agreement: Yes Rehab Potential: Good Time/GCodes Start Time: 12:57 Stop Time: 13:18 Total Time Billed (hr/min): 21 Billed Treatment Time 1 visit-ADL 1 (21 min) CEDRIC DURANT Dec 06, 2018 13:35
--- NOTE | 2018-12-06 14:00 | Physical Therapy Daily Note ---
PT Daily Note-Current Subjective Patient c/o left knee cramping. RN is aware. Pain Numeric Pain Scale: 7 Location: Left Location Body Site: Knee Pain Description: Cramping Mental Status Patient Orientation: Normal For Age Attachments: Oxygen, IV Transfers Therapy Code Descriptions/Definitions Functional [place] Measure: 0=Not Assessed/NA 4=Minimal Assistance 1=Total Assistance 5=Supervision or Setup 2=Maximal Assistance 6=Modified [place] 3=Moderate Assistance 7=Complete [place] Therapy Quality Codes: 6 Independent with activity with or without an assistive device 5 Patient requires set up or clean up by helper. Patient completes activity by themselves 4 Supervision or touching assist (CGA). [place] provide cues , steadying assist 3 The helper provides less than half the effort to complete the activity 2 The helper provides more than half the effort to complete the activity 1 Dependent. The helper does all the effort to complete an activity 7 Patient refused to complete or attempt activity 9 The patient did not perform the activity before the current illness or injury 88 Not attempted due to Medical conditions or safety concerns Transfers (B, C, W/C) (FIM): 6 Scootin Rollin Roll Left to Right (QC): 6 Supine to/from Sit: 6 Sit to/from Stand: 6 Sit to Lying (QC): 6 Sit to Stand (QC): 6 Chair/Byi-ox-Vwmnm Xfer(QC): 6 Bed to/from Chair: 6 Gait Training Does the Patient Walk?: Yes Gait (FIM): 1 Distance (FIM): 1=up to 49 ft Distance: 30' x 4 Walk 10 feet (QC): 6 Gait Level of Assist: 6 Gait Assistive Device: FWW ambulates with FWW and memory foam shoes without difficulty Exercises Supine Ex: Ankle pumps, Quad Set, Heel Slides Supine Reps: 15 Seated Therapy Exercises: Long arc quads Seated Reps: 15 Assessment Patient is very fatigued and ceased treatment. Patient returned to bed with needs met. RN notified of dressing coming off during toileting. PT Short Term Goals Short Term Goals Time Frame: Dec 15, 2018 Transfers (B,C,W/C) (FIM): 4 Gait (FIM): 4 Distance (FIM): 3=150 ft Gait Assistive Device: FWW PT Residential Goals Residential Goals PT Residential Goals Time Frame: Dec 29, 2018 Transfers (B,C,W/C) (FIM): 6 Sit to Lying (QC): 6 Lying-Sitting on Side/Bed(QC): 6 Sit to Stand (QC): 6 Rollin Roll Left to Right (QC): 6 Chair/Llp-eu-Sntdf Xfer(QC): 6 Car Transfer (QC): 6 Does the Patient Walk: Yes Gait (FIM): 6 Gait distance (FIM): 3=150 ft Walk 10 feet (QC): 6 Walk 10ft-Uneven Surface(QC): 6 Walk 50ft with 2 Turns (QC): 6 Walk 150 ft (QC): 6 Gait Assistive Device: FWW Does the Pt use WC or Scooter?: No Stairs (FIM): 5 # of Steps: 4 1 Step (curb) (QC): 6 4 Steps (QC): 6 12 Steps (QC): 9 Picking up an Object (QC): 9 PT Plan Treatment/Plan Treatment Plan: Continue Plan of Care Treatment Plan: Bed Mobility, Education, Functional Activity Juan F, Functional Strength, Group Therapy, Gait, Safety, Therapeutic Exercise, Transfers Treatment Duration: Dec 29, 2018 Frequency: At least 5 of 7 days/Wk (IRF) Estimated Hrs Per Day: 1.5 hours per day Patient and/or Family Agrees t: Yes Time/GCodes Time In: 1321 Time Out: 1348 Total Billed Treatment Time: 26 Total Billed Treatment 1 visit FA x 2 26 min BO MONTAGUE PT Dec 06, 2018 14:00
--- NOTE | 2018-12-06 15:41 | Speech Therapy Daily Note ---
Speech Daily Progress Note Subjective Date Seen by Provider: Dec 06, 2018 Time Seen by Provider: 00:30 The patient had just received her lunch when I entered her room. Objective The patient utilized compensatory strategies as trained at 80% with minimal verbal cues. Assessment Assessment Current Status: Good Progress Treatment Plan Continue Plan of Care Communication Comprehension: 7 Expression: 7 Social Cognition Social Interaction: 7 Problem Solvin Memory: 6 Speech Short Term Goals Short Term Goals Short Term Goals 1) The patient will tolerate least restrictive diet level without s/s of aspiration at 90% or greater. 2) The patient will utilize compensatory strategies as trained for safe oral intake at 90% or greater given minimal verbal cues. Speech Cigarette Machines Mechanic Goals Fdc Goals The patient will maintain adequate nutrition/hydration via safe effective swallow function. Speech-Plan Patient/Family Goals Patient/Family Goals: The patient plans on returning to her living situation post rehab. Treatment Plan Speech Therapy Treatment Plan: Continue Plan of Care The patient is making good progress toward meeting ST goals for safety of all oral intake. Treatment Duration: Dec 09, 2018 Frequency: 5 times per week Estimated Hrs Per Day: .25 hour per day Rehab Potential: Good Barriers to Learning: None identified Pt/Family Agrees to Plan: Yes Safety Risks/Education Teaching Recipient: Patient Teaching Methods: Demonstration, Discussion Response to Teaching: Verbalize Understanding Education Topics Provided: Continued safety of oral intake. Time Speech Therapy Time In: 12:00 Speech Therapy Time Out: 12:30 Total Billed Time: 30 Billed Treatment Time 1, ANTHONY Walton Dec 06, 2018 15:41
[2018-12-06 17:45] VITALS: BP 111/75
[2018-12-06] MEDS: FAMOTIDINE 20 MG (PEPCID) TABLET PO SCH (21:26)
[2018-12-06] MEDS: ENOXAPARIN 60 MG/0.6 ML (LOVENOX) SYR SC SCH (21:30)
[2018-12-07] MEDS: PIPERACILLIN/TAZOBACTAM (BULK) 4.5 GM in NS (IVPB) 100 ML IV SCH ×3 (01:54→17:58)
[2018-12-07 05:22] VITALS: BP 115/70
[2018-12-07] MEDS: inSUlin ASPART (NovoLOG) 1 UNIT/0.01 ML (CHARGE PER UNIT) SC SCH ×4 (05:31→21:33)
[2018-12-07] MEDS: RT-ADVAIR HFA 115/21 MCG PER PUFF IH SCH ×2 (06:12→19:12)
--- NOTE | 2018-12-07 08:33 | Cardiology Progress Note ---
Subjective Date Seen by Provider: Dec 07, 2018 Time Seen by Provider: 08:32 Subjective/Events-last exam Patient is in bed, no new complaints. Reports increased fatigue this morning. Denies any chest pain or dyspnea. Review of Systems General: No Chills, No Night Sweats; Fatigue, Malaise; No Appetite, No Other HEENT: No Head Aches, No Visual Changes, No Eye Pain, No Ear Pain, No Dysphasia, No Sinus Congestion, No Post Nasal Drip, No Sore Throat, No Other Pulmonary: No Dyspnea, No Cough, No Pleuritic Chest Pain, No Other Cardiovascular: No: Chest Pain, Palpitations, Orthopnea, Paroxysmal Noc. Dyspnea, Edema, Lt Headedness, Other Objective-Cardiology Exam Last Set of Vital Signs Vital Signs 12/07/18 12/07/18 12/07/18 05:22 06:16 09:00 Temp 96.9 Pulse 71 Resp 20 B/P (MAP) 115/70 (85) Pulse Ox 95 O2 Delivery High Flow N/C O2 Flow Rate 4.00 Capillary Refill : I&O Intake and Output 12/07/18 00:00 Intake Total 1220 ml Output Total 20 ml Balance 1200 ml Intake Oral 780 ml IV Total 440 ml Gastric Drainage Total 20 ml # Voids 7 # Bowel Movements 4 General: Alert, Oriented X3, Cooperative HEENT: Atraumatic, PERRLA Neck: Supple, No JVD, No Thyromegaly Lungs: Clear to Auscultation, Normal Air Movement Heart: Regular Rate, Normal S1, Normal S2, No Murmurs Abdomen: Normal Bowel Sounds, Soft, No Tenderness, No Hepatosplenomegaly, No Masses Extremities: No Clubbing, No Cyanosis, No Edema, Normal Pulses, No Tenderness/Swelling Skin: No Rashes, No Breakdown, No Significant Lesion Neuro: Normal Speech, Cranial Nerves 3-12 NL Psych/Mental Status: Mental Status NL, Mood NL Results Lab Laboratory Tests Test 12/06/18 20:38 12/07/18 05:11 12/07/18 11:18 Range/Units Glucometer 122 H 130 H 227 H 70-110 MG/DL A/P-Cardiology Admission Diagnosis Respiratory failure COPD HTN HLP Assessment/Plan Status post respiratory failure, resolved, using C Pap on and off, Continue to monitor Enterocutaneous fistula postoperatively, 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 Olvera Acute non-ST elevation myocardial infarction, poor R-wave progression in the anterior leads, probably type II myocardial infarctions due to respiratory failure, underlying coronary artery disease cannot be entirely excluded. Echocardiogram showed normal LV function. Continue with conservative management at this time, continue to monitor. Troponin level trended down, no acute EKG changes suggestive of active ischemia, conservative management at this time. Continue to monitor Hypertension, controlled. Continue to monitor Hyperlipidemia maintained on Lipitor, on hold at this point COPD, oxygen dependent, receiving therapy. Morbid obesity Diabetes mellitus, followed and managed by primary care physician History of tobaccoism Generalized debility/weakness. Continue to monitor. Clinical Quality Measures DVT/VTE Risk/Contraindication: Risk Factor Score Per Nursin RFS Level Per Nursing on Admit: 4+=Very High Supervisory-Addendum Brief Supervisory Addendum Participated in pt care: history, MDM, physical Personally performed: exam, history, MDM Care discussed with: ASHLEIGH Notes: patient was seen and evaluated, sitting in a wheel chair, feeling better, breathing better, denied any pain, starting to have wound VAC today. No chest pain. On examination lungs were clear to auscultation, heart is regular. Continue on current medication monitor ESAU WILCOX Dec 07, 2018 08:33 AUSTEN MARTÍNEZ MD Dec 07, 2018 16:36
[2018-12-07] MEDS: DOCUSATE SODIUM 100 MG (COLACE) CAP PO SCH ×2 (09:00→21:42)
[2018-12-07] MEDS: SENNA W/DOCUSATE (SENOKOT S) TABLET PO SCH ×2 (09:00→21:42)
[2018-12-07] MEDS: FUROSEMIDE 20 MG (LASIX) TAB PO SCH (09:02)
[2018-12-07] MEDS: FLUCONAZOLE 200 MG/100 ML 50 ML, EMPTY IV BAG (PVC) 1 EA IV SCH ×2 (09:02)
[2018-12-07] MEDS: MAGNESIUM OXIDE (MAG-OX)400 MG TAB PO SCH (09:02)
[2018-12-07] MEDS: lisINopril 20 MG (PRINIVIL) TABLET PO SCH (09:02)
[2018-12-07] MEDS: meTOprolol TARTRATE 25 MG (LOPRESSOR) TABLET PO SCH ×3 (09:02→20:23)
[2018-12-07] MEDS: LINAGLIPTIN (TRADJENTA) 5 MG TABLET PO SCH (09:02)
[2018-12-07] MEDS: buPROPion SR 150 MG (WELLBUTRIN SR) TAB PO SCH (09:02)
[2018-12-07] MEDS: FAMOTIDINE 20 MG (PEPCID) TABLET PO SCH ×2 (09:02→20:23)
[2018-12-07] MEDS: DULoxetine 30 MG (CYMBALTA) CAP PO SCH (09:02)
[2018-12-07] MEDS: VITAMIN D3 5,000 UNITS (CHOLECALCIFEROL ) CAPSULE PO SCH (09:03)
[2018-12-07] MEDS: OMEGA 3 (FISH OIL) 1000 MG CAP PO SCH (09:03)
[2018-12-07] MEDS: amLODIPine 10 MG (NORVASC) TAB PO SCH (09:03)
[2018-12-07] MEDS: ENOXAPARIN 60 MG/0.6 ML (LOVENOX) SYR SC SCH ×2 (09:03→20:23)
[2018-12-07] MEDS: NICOTINE PATCH REMOVAL TP SCH (09:04)
[2018-12-07] MEDS: NICOTINE 21 MG (NICODERM) PATCH TD SCH (09:04)
[2018-12-07] MEDS: OCTREOTIDE INJECTION 500 MCG in NS (IVPB) 97.5 ML IV SCH ×2 (09:30→19:00)
--- NOTE | 2018-12-07 09:51 | PM&R Progress Note ---
Subjective HPI/CC On Admission Date Seen by Provider: Dec 07, 2018 Time Seen by Provider: 09:00 Chief complaint: Disuse myopathy. HPI: This is a 63yoWF [facility], 1929–1983 Pt known to me from last week hospital admission when she required intubation for acute on chronic respiratory failure with obesity-hypoventilation syndrome following hernia repair. She was able to be extubated without complication and continued to be on high flow oxygen and had suffered these issues following an uncomplicated ventral hernia surgery. Due to her morbid obesity and likely chronic CO2 retention she went into respiratory failure, had significant difficulties with multisystem organ dysfunction and was eventually able to move down to fourth floor but repeat CT scam obtained due to elevated white count per Dr. Olvera showed some sort of fistula. 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 She remained on TPN, clear liquid diet only and IV antibiotics to help heal that area. At this current time, the Pt is denying any pain and is getting around better since she was living independently and ambulating at home. The goal is to return to near prior level of function and be able to return back to independent level of living. Subjective/Events-last exam Zosyn will be continues for 6 weeks until fistula has resolved Changing dressing 2 times per shift but now after rounds wound vac will be placed under Dr. Olvera's instructions Lovenox back on board no further hematomas From yesterday her spirits seem to be down so pet pass will be initiated to help her because she is on multiple anti-depressants Ultram TID seems to help with the pain Sliding scale insulin maintained PT and OT shows minimal assist and OT needs to work on ability to clean her martha area Pt may require assisted living versus shelter placement will recheck next week Participating in all therapy. Check meds and labs Conferred with RN Reviewed therapy notes Review of Systems Pulmonary: Dyspnea Gastrointestinal: Abdominal Pain Objective Exam Vital Signs Vital Signs Date Time Temp Pulse Resp B/P (MAP) Pulse Ox O2 Delivery O2 Flow Rate FiO2 12/07/18 19:12 92 NIV CPAP 3.00 12/07/18 18:00 97.7 82 14 130/82 (98) Capillary Refill : General Appearance: No Apparent Distress, WD/WN, Chronically ill, Obese HEENT: PERRL/EOMI, Normal ENT Inspection, Pharynx Normal, Moist Mucous Membranes Neck: Full Range of Motion, Normal Inspection, Non Tender, Supple Respiratory: Chest Non Tender, Lungs Clear, No Accessory Muscle Use, No Respiratory Distress, Decreased Breath Sounds Cardiovascular: Regular Rate, Rhythm, No Edema, No Gallop, No JVD, No Murmur Gastrointestinal: Normal Bowel Sounds, No Organomegaly, No Pulsatile Mass, Soft, Tenderness, Other (fistula) Back: Normal Inspection, No CVA Tenderness, No Vertebral Tenderness Extremity: Normal Capillary Refill, Normal Inspection, Normal Range of Motion, Non Tender, No Calf Tenderness, No Pedal Edema Neurologic/Psychiatric: Alert, Oriented x3, No Motor/Sensory Deficits, Normal Mood/Affect, Motor Weakness (lower legs 3/5) Skin: Normal Color, Warm/Dry, Other (right flank hematoma?) Lymphatic: No Adenopathy Results/Procedures Lab Patient resulted labs reviewed. FIM Transfers Therapy Code Descriptions/Definitions Functional Mower Measure: 0=Not Assessed/NA 4=Minimal Assistance 1=Total Assistance 5=Supervision or Setup 2=Maximal Assistance 6=Modified Mower 3=Moderate Assistance 7=Complete Mower Therapy Quality Codes: 6 Independent with activity with or without an assistive device 5 Patient requires set up or clean up by helper. Patient completes activity by themselves 4 Supervision or touching assist (CGA). [place] provide cues , steadying assist 3 The helper provides less than half the effort to complete the activity 2 The helper provides more than half the effort to complete the activity 1 Dependent. The helper does all the effort to complete an activity 7 Patient refused to complete or attempt activity 9 The patient did not perform the activity before the current illness or injury 88 Not attempted due to Medical conditions or safety concerns Transfers (B, C, W/C) (FIM): 6 Scootin Rollin Roll Left to Right (QC): 6 Supine to/from Sit: 6 Sit to/from Stand: 6 Sit to Lying (QC): 6 Sit to Stand (QC): 6 Chair/Zey-ho-Ztbgq Xfer(QC): 6 Bed to/from Chair: 6 Car Transfer (QC): 88 (Unsafe to attempt car transfer at this time. ) Gait Training Does the Patient Walk?: Yes Gait (FIM): 1 Distance (FIM): 1=up to 49 ft Distance: 30' x 4 Walk 10 feet (QC): 6 Walk 50 ft with 2 Turns(QC): 6 Walk 150 ft (QC): 88 Walking 10ft/uneven surface-QC: 88 Gait Level of Assist: 6 Gait Persons Needed: 1 Gait Assistive Device: FWW Wheelchair Training Does the Pt Use a Wheelchair?: No Stair Training Stair Training: Handrails/: uses walker Stairs (FIM): 1 #of Steps: 1 1 Step (curb) (QC): 5 4 Steps (QC): 88 12 Steps (QC): 88 Stairs: Pattern: Step to Level of Assist: 5 Balance Picking up an Object (QC): 88 Mental Status/Objective Comprehension: 7 Expression: 7 Social Interaction: 7 Problem Solvin Memory: 6 ADL-Treatment Groomin (Pt brushed hair and donned dentures sitting in w/c sink, set up. Supervision.) Oral Hygiene (QC): 5 Bathin (Pt able to wash all areas sitting on shower bench using long handle sponge, grabbar and hand held shower except R underarm and did not attempt to cleanse buttocks or martha area.) Bathing Location: L Arm, R Arm, L Upper Leg, R Upper Leg, L Lower Leg (including foot), R Lower Leg (including foot), Chest, Abdomen Shower/Bathe Self (QC): 3 Upper Extremity Dressin (Pt able to don/doff upperbody clothing self, set up.) Upper Body Dressing (QC): 5 Lower Extremity Dressin (Pt required AE to doff socks. Pt able to doff gown self. Pt able to don briefs and pants to knee. Pt required assist to hike above waist in standing while pt held onto grabbar with one hand. Pt able to don R sock, required assist for L sock. Pt would not use sock aide.) Lower Body Dressing (QC): 3 On/Off Footwear (QC): 3 Shower: 5 (Pt required FWW, grabbar, and shower tub bench. ) Assessment/Plan Assessment and Plan Assess & Plan/Chief Complaint Plan: IRF protocol OOB in chair most of day TPN DC per Dr Olvera Advance diet doing well Right flank hematoma? 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 insulin use: with long chain dyeing machine operator use Diabetes mellitus complication status: with other specified complication Qualified Codes: E11.69 - Type 2 diabetes mellitus with other specified complication; Z79.4 - skilled nursing (current) use of insulin (5) Ventilator dependence Status: Resolved Resolution Date/Time: 11/25/18 @ 20:44 (6) Enterocutaneous fistula Status: Acute (7) Obesity hypoventilation syndrome Status: Chronic (8) On total parenteral nutrition (TPN) Status: Acute (9) BRAYAN treated with BiPAP Status: Chronic (10) Smoker Status: Chronic ALEIDA LICEA DO Dec 07, 2018 09:50
--- NOTE | 2018-12-07 09:56 | Physical Therapy Daily Note ---
PT Daily Note-Current Subjective Pt. states that when she is standing still she hads pain in her left hip down in to her leg at 9/10, while walking it is 6/10 and laying down 0/10. Agrees to Rx but states she is depressed and doesnt want to go out of the room for Rx. Pain Numeric Pain Scale: 9 Location: Left Location Body Site: Hip Pain Description: Pressure Comment: in stance only Mental Status Patient Orientation: Normal For Age Attachments: Oxygen (4L), IV Transfers Therapy Code Descriptions/Definitions Functional [place] Measure: 0=Not Assessed/NA 4=Minimal Assistance 1=Total Assistance 5=Supervision or Setup 2=Maximal Assistance 6=Modified [place] 3=Moderate Assistance 7=Complete [place] Therapy Quality Codes: 6 Independent with activity with or without an assistive device 5 Patient requires set up or clean up by helper. Patient completes activity by themselves 4 Supervision or touching assist (CGA). [place] provide cues , steadying assist 3 The helper provides less than half the effort to complete the activity 2 The helper provides more than half the effort to complete the activity 1 Dependent. The helper does all the effort to complete an activity 7 Patient refused to complete or attempt activity 9 The patient did not perform the activity before the current illness or injury 88 Not attempted due to Medical conditions or safety concerns Transfers (B, C, W/C) (FIM): 5 Scootin Rollin Supine to/from Sit: 5 Sit to/from Stand: 5 Gait Training Does the Patient Walk?: Yes Gait (FIM): 2 Distance (FIM): 0=099-05 ft (50, 25 ) Gait Level of Assist: 4 Gait Persons Needed: 1 Gait Assistive Device: FWW assist for O2 tubing and IV Exercises Supine Ex: Bridging, Ankle pumps, Quad Set, Rolling, Glut sets, Heel Slides, Short Arc Quads, Scooting, Straight leg raise, Hip abd/add Supine Reps: 20 Seated Therapy Exercises: Ankle pumps, Sit to stand, Long arc quads Seated Reps: 12 Treatments pt. with BM large conchita at bed and on gown, all cleaned and changed with XL brief applied which actually helps also hold dressing in place at low abdomen Assessment Current Status: Good Progress pt. with Hx of "sciatica" in left leg , possibly the existence of increased weight and heaviness of abdomen increases sciatic pain. PT Short Term Goals Short Term Goals Time Frame: Dec 15, 2018 Transfers (B,C,W/C) (FIM): 4 Gait (FIM): 4 Distance (FIM): 3=150 ft Gait Assistive Device: FWW PT Assisted Goals Veneer Glue Spreader Goals PT Veneer Glue Spreader Goals Time Frame: Dec 29, 2018 Transfers (B,C,W/C) (FIM): 6 Sit to Lying (QC): 6 Lying-Sitting on Side/Bed(QC): 6 Sit to Stand (QC): 6 Rollin Roll Left to Right (QC): 6 Chair/Dme-hj-Ysska Xfer(QC): 6 Car Transfer (QC): 6 Does the Patient Walk: Yes Gait (FIM): 6 Gait distance (FIM): 3=150 ft Walk 10 feet (QC): 6 Walk 10ft-Uneven Surface(QC): 6 Walk 50ft with 2 Turns (QC): 6 Walk 150 ft (QC): 6 Gait Assistive Device: FWW Does the Pt use WC or Scooter?: No Stairs (FIM): 5 # of Steps: 4 1 Step (curb) (QC): 6 4 Steps (QC): 6 12 Steps (QC): 9 Picking up an Object (QC): 9 PT Plan Treatment/Plan Treatment Plan: Continue Plan of Care Treatment Plan: Bed Mobility, Education, Functional Activity Juan F, Functional Strength, Group Therapy, Gait, Safety, Therapeutic Exercise, Transfers Treatment Duration: Dec 29, 2018 Frequency: At least 5 of 7 days/Wk (IRF) Estimated Hrs Per Day: 1.5 hours per day Patient and/or Family Agrees t: Yes Safety Risks/Education Patient Education: Gait Training, Transfer Techniques, Correct Positioning, Disease Process, Safety Issues Teaching Recipient: Patient Teaching Methods: Demonstration, Discussion Response to Teaching: Verbalize Understanding, Return Demonstration, Reinforcement Needed Time/GCodes Time In: 910 Time Out: 1000 Total Billed Treatment Time: 50 Total Billed Treatment 1,FA15 m,GT15m,EX20m ALEXANDRE MICHAELS DATA PROCESSING OPERATOR Dec 07, 2018 09:56
--- NOTE | 2018-12-07 11:02 | Occupational Ther Daily Note ---
OT Current Status-Daily Note Subjective Pt alert and laying in bed. Mental Status/Objective Patient Orientation: Person, Place, Time, Situation Therapy Code Descriptions/Definitions Functional [place] Measure: 0=Not Assessed/NA 4=Minimal Assistance 1=Total Assistance 5=Supervision or Setup 2=Maximal Assistance 6=Modified [place] 3=Moderate Assistance 7=Complete [place] ADL-Treatment Pt unable to shower due to wound but wanted to wash hair. Pt required assist to shampoo back of head and rinse. Pt able to dry hair by self. Pt took increased time to complete all tasks due to decreased activity tolerance and the need for recovery breaks. Min A for supine to EOB with HOB raised. EOB to supine by self with HOB raised and bed rails. SBA for SPT from surface to surface. Pt did not have everyday clothing so requested to use hospital gown. Pt able to don/doff hospital gown with assist only to manipulate tubing. Therapy Code Descriptions/Definitions Functional [place] Measure: 0=Not Assessed/NA 4=Minimal Assistance 1=Total Assistance 5=Supervision or Setup 2=Maximal Assistance 6=Modified [place] 3=Moderate Assistance 7=Complete [place] Therapy Quality Codes: 6 Independent with activity with or without an assistive device 5 Patient requires set up or clean up by helper. Patient completes activity by themselves 4 Supervision or touching assist (CGA). [place] provide cues , steadying assist 3 The helper provides less than half the effort to complete the activity 2 The helper provides more than half the effort to complete the activity 1 Dependent. The helper does all the effort to complete an activity 7 Patient refused to complete or attempt activity 9 The patient did not perform the activity before the current illness or injury 88 Not attempted due to Medical conditions or safety concerns Grooming (FIM): 5 (Pt able to brush hair sitting in w/c. Pt able to put dentures in mouth, set up.) Lower Body Dressing (FIM): 4 (Pt required min A to don/doff briefs. Pt needed assist to pocket and pulley machine operator toes. Pt able to hike briefs over waist. Pt required assist to straighten out back. Increased assist needed due to wound.) Lower Body Dressing (QC): 3 Toileting (FIM): 2 (Pt required assist to cleanse self and manipulate clothing after voiding and BM. Pt able to stand using grabbar, CGA. Discussed toilet tongs with pt to cleanse buttocks by self.) Toileting Hygiene (QC): 2 Transfers (B, C, W/C) (FIM): 4 (Pt used EOB for assist, CGA to w/c. ) Toilet/Commode Transfer (FIM): 4 (Pt required w/c and grab bar, CGA steadying. ) Toilet Transfer (QC): 4 OT Short Term Goals Short Term Goals Time Frame: Dec 08, 2018 Eating(FIM): 5 Grooming(FIM): 5 Bathing(FIM): 4 Upper Body Dressing(FIM): 4 Lower Body Dressing(FIM): 3 Toileting(FIM): 3 Transfers (B,C,W/C) (FIM): 4 Toilet/Commode Transfer(FIM): 4 Shower Transfer(FIM): 4 Additional Short Term Goals: 1-Demonstrate ADL Tasks, 2-Verbalize Understanding, 3-ImproveStrength/Juan F 1=Demonstrate adherence to instructed precautions during ADL tasks. 2=Patient will verbalize/demonstrate understanding of assistive devices/modifications for ADL. 3=Patient will improve strength/tolerance for activity to enable patient to per form ADL's. OT Railroad Cook Goals Mcfp Goals Time Frame: Dec 22, 2018 Eating (FIM): 6 Eating (QC): 6 Groomin Oral Hygiene (QC): 6 Bathing(FIM): 5 Shower/Bathe Self (QC): 4 Upper Body Dressing(FIM): 5 Upper Body Dressing (QC): 4 Lower Body Dressing(FIM): 5 Lower Body Dressing (QC): 4 On/Off Footwear (QC): 4 Toileting(FIM): 6 Toileting Hygiene (QC): 6 Transfers (B,C,W/C) (FIM): 6 Toilet/Commode Transfer(FIM): 6 Toilet/Commode Transfer (QC): 6 Shower Transfer(FIM): 5 Additional Goals: 1-Demonstrate ADL Tasks, 2-Verbalize Understanding, 3- ImproveStrength/Juan F 1=Demonstrate adherence to instructed precautions during ADL tasks. 2=Patient will verbalize/demonstrate understanding of assistive devices/m odifications for ADL. 3=Patient will improve strength/tolerance for activity to enable patient to perform ADL's. OT Education/Plan Problem List/Assessment Assessment: Decreased UE Strength, Impaired Self-Care Skills Discharge Recommendations Plan/Recommendations: Continue POC Treatment Plan/Plan of Care Patient would benefit from OT for education, treatment and training to promote independence in ADL's, mobility, safety and/or upper extremity function for ADL's. Plan of Care: ADL Retraining, Functional Mobility, Group Exercise/Act as Ind, UE Funct Exercise/Act Treatment Duration: Dec 22, 2018 Frequency: At least 5 of 7 days/Wk (IRF) Estimated Hrs Per Day: 1.5 hours per day Agreement: Yes Rehab Potential: Good Time/GCodes Start Time: 10:00 Stop Time: 11:00 Total Time Billed (hr/min): 60 Billed Treatment Time 1 visit- ADL 4 (60 min) CEDRIC DURANT Dec 07, 2018 11:02
--- NOTE | 2018-12-07 11:58 | Speech Therapy Daily Note ---
Speech Daily Progress Note Subjective Date Seen by Provider: Dec 07, 2018 Time Seen by Provider: 00:30 The patient had just received her breakfast when I entered her room for our session. Objective The patient utilized compensatory strategies for safe oral intake at 90% with minimal verbal cuing. Assessment Assessment Current Status: Good Progress Treatment Plan Continue Plan of Care Communication Comprehension: 7 Expression: 7 Social Cognition Social Interaction: 7 Problem Solvin Memory: 6 Speech Short Term Goals Short Term Goals Short Term Goals 1) The patient will tolerate least restrictive diet level without s/s of aspiration at 90% or greater. 2) The patient will utilize compensatory strategies as trained for safe oral intake at 90% or greater given minimal verbal cues. Speech Hr Generalist Goals Penitentiary Goals The patient will maintain adequate nutrition/hydration via safe effective swallow function. Speech-Plan Patient/Family Goals Patient/Family Goals: The patient plans on moving to assisted living upon discharge from rehab. Treatment Plan Speech Therapy Treatment Plan: Continue Plan of Care Treatment Duration: Dec 09, 2018 Frequency: 5 times per week Estimated Hrs Per Day: .25 hour per day Rehab Potential: Good Barriers to Learning: None identified Pt/Family Agrees to Plan: Yes Safety Risks/Education Teaching Recipient: Patient Teaching Methods: Demonstration, Discussion Response to Teaching: Verbalize Understanding, Return Demonstration Education Topics Provided: Continued training for compensatory strategies Time Speech Therapy Time In: 07:45 Speech Therapy Time Out: 08:15 Total Billed Time: 30 Billed Treatment Time 1SADIE [address]ETH[address] ST Dec 07, 2018 11:58
--- NOTE | 2018-12-07 13:04 | Progress Note ---
Subjective Date Seen by a Provider: Dec 07, 2018 Time Seen by a Provider: 13:00 Subjective/Events-last exam doing well. overall clinical status slowly improving. ostomy output decreasing. Objective Exam Vital Signs Date Time Temp Pulse Resp B/P (MAP) Pulse Ox O2 Delivery O2 Flow Rate FiO2 12/07/18 06:16 95 NIV CPAP 3.00 12/07/18 05:22 96.9 71 20 115/70 (85) 97 Room Air 12/06/18 20:00 High Flow N/C 4.00 12/06/18 19:50 95 Nasal Cannula 3.00 12/06/18 17:45 97.4 75 20 111/75 (87) 96 Room Air I & O 12/07/18 07:00 Intake Total 1020 ml Balance 1020 ml Capillary Refill : General Appearance: No Apparent Distress HEENT: PERRL/EOMI Neck: Full Range of Motion Respiratory: Decreased Breath Sounds, Rhonci Cardiovascular: Regular Rate, Rhythm Gastrointestinal: normal bowel sounds, soft Extremity: Normal Capillary Refill Neurologic/Psychiatric: Alert, Oriented x3 Skin: Normal Color Lymphatic: No Adenopathy Results Lab Laboratory Tests 12/06/18 15:21: Glucometer 267H 12/06/18 20:38: Glucometer 122H 12/07/18 05:11: Glucometer 130H 12/07/18 11:18: Glucometer 227H Assessment/Plan Assessment/Plan Assess & Plan/Chief Complaint s/p recurrent inc hernia repair with exacerbation COPD, exacerbation CHF, hypergylemia and developement enterocutaneous fistula. cont current care. will continue iv abx until fistula closed. cont octreotide as well. may restart lovenox per surg however would try different locations. Clinical Quality Measures DVT/VTE Risk/Contraindication: Risk Factor Score Per Nursin RFS Level Per Nursing on Admit: 4+=Very High WENDI ELIZABETH MD Dec 07, 2018 13:04
--- NOTE | 2018-12-07 14:14 | Therapy Group Daily Note ---
Therapy Daily Group Note Patient Education Topic Other List Below (AE for home safety) Session Ratio (pt:therapist): 3:1 Goal of Session: Use of Adaptive Equipment Goal Met for this Session: Yes Pt Benefit of Group: Contributions to Others, F/U Use of Strategies @Home, Increased Functional Safety, Improved Cognition, Recognition of Peers, Socialization Other/Notes Pt transported via w/c to OT/PT group. Group consisted of introductions (name, place living, favorite invention), socialization, education for AE for home and community use. Pt introduced self appropriately and actively listened to peers. Pt acknowledged understanding of educational topic by giving own personal story and a strategy that worked for them personally. After group, pt lying in bed with call light/phone in reach. All needs met in room. Start Time: 12:40 Stop Time: 13:50 Total Billed Treatment Time: 70 Total Billed Treatment 1-GRP CEDRIC DURANT Dec 07, 2018 14:14
--- NOTE | 2018-12-07 14:48 | NUR ---
BARTENDER SERVER met with patient to review team conference summary. Patient is performing transfers with min assist, can ambulate only short distances of 50 feet, requires min assist for bathing and lower body dressing, has struggles containing martha-area and is receiving extensive and frequent dressing changes to fistula. Patient will be transitioned to a wound VAC today. Based on current functionality, team has recommended patient be reevaluated at next team conference on 12/14. Patient is in agreement with this.
[2018-12-07] MEDS ORDERED: fentaNYL INJECTION 100 MCG/2 ML AMP IVP PRN (17:45)
[2018-12-07 18:00] VITALS: BP 130/82
[2018-12-08] MEDS: PIPERACILLIN/TAZOBACTAM (BULK) 4.5 GM in NS (IVPB) 100 ML IV SCH ×3 (02:18→18:18)
[2018-12-08] MEDS: ACETAMINOPHEN 325 MG TABLET PO PRN (04:10)
[2018-12-08] MEDS: OCTREOTIDE INJECTION 500 MCG in NS (IVPB) 97.5 ML IV SCH ×2 (04:36→15:30)
[2018-12-08] MEDS: inSUlin ASPART (NovoLOG) 1 UNIT/0.01 ML (CHARGE PER UNIT) SC SCH ×4 (06:08→21:10)
[2018-12-08 06:17] VITALS: BP 145/75
[2018-12-08 06:43] LABS: BASOPHILS # (AUTO) 0.1 10^3/uL (0.0-0.1); BASOPHILS % (AUTO) 1 % (0-10); EOSINOPHILS # (AUTO) 0.1 10^3/uL (0.0-0.3); EOSINOPHILS % (AUTO) 2 % (0-10); HEMATOCRIT 33 % (35-52); HEMOGLOBIN 9.9 G/DL (11.5-16.0); LYMPHOCYTES # (AUTO) 1.9 X 10^3 (1.0-4.0); LYMPHOCYTES % (AUTO) 34 % (12-44); MEAN CORPUSCULAR HEMOGLOBIN 28 PG (25-34); MEAN CORPUSCULAR HGB CONC 31 G/DL (32-36); MEAN CORPUSCULAR VOLUME 92 FL (80-99); MEAN PLATELET VOLUME 9.6 FL (7.4-10.4); MONOCYTES # (AUTO) 0.7 X 10^3 (0.0-1.0); MONOCYTES % (AUTO) 12 % (0-12); NEUTROPHILS # (AUTO) 2.9 X 10^3 (1.8-7.8); NEUTROPHILS % (AUTO) 51 % (42-75); PLATELET COUNT 250 10^3/uL (130-400); RED CELL DISTRIBUTION WIDTH 16.1 % (10.0-14.5); WHITE BLOOD COUNT 5.7 10^3/uL (4.3-11.0)
[2018-12-08 07:01] LABS: ALANINE AMINOTRANSFERASE 13 U/L (0-55); ALBUMIN 3.2 GM/DL (3.2-4.5); ALKALINE PHOSPHATASE 63 U/L (40-136); BILIRUBIN,TOTAL 0.3 MG/DL (0.1-1.0); BUN/CREATININE RATIO 14; CALCIUM 8.6 MG/DL (8.5-10.1); CARBON DIOXIDE 26 MMOL/L (21-32); CHLORIDE 103 MMOL/L (98-107); CREATININE SERUM 0.84 MG/DL (0.60-1.30); GFR ESTIMATED > 60; GLUCOSE 130 MG/DL (70-105); POTASSIUM 3.5 MMOL/L (3.6-5.0); SODIUM 142 MMOL/L (135-145); TOTAL PROTEIN 7.2 GM/DL (6.4-8.2)
--- NOTE | 2018-12-08 08:21 | Cardiology Progress Note ---
Subjective Date Seen by Provider: Dec 08, 2018 Time Seen by Provider: 07:50 Subjective/Events-last exam Patient in bed, complaining of right shoulder pain, denies any chest pain or dyspnea. Objective-Cardiology Exam Last Set of Vital Signs Vital Signs 12/08/18 06:17 Temp 97.8 Pulse 78 Resp 20 B/P (MAP) 145/75 (98) Pulse Ox 96 O2 Delivery Nasal Cannula O2 Flow Rate 4.00 Capillary Refill : I&O Intake and Output 12/08/18 00:00 Intake Total 860 ml Balance 860 ml Intake Oral 620 ml IV Total 240 ml # Voids 6 # Bowel Movements 2 General: Alert, Oriented X3, Cooperative HEENT: Atraumatic, PERRLA Neck: Supple, No JVD, No Thyromegaly Lungs: Clear to Auscultation, Normal Air Movement Heart: Regular Rate, Normal S1, Normal S2, No Murmurs Abdomen: Normal Bowel Sounds, Soft, No Tenderness, No Hepatosplenomegaly, No Masses Extremities: No Clubbing, No Cyanosis, No Edema, Normal Pulses, No Tenderness/S welling Skin: No Rashes, No Breakdown, No Significant Lesion Neuro: Normal Speech, Cranial Nerves 3-12 NL Psych/Mental Status: Mental Status NL, Mood NL Results Lab Laboratory Tests 12/08/18 06:25 A/P-Cardiology Admission Diagnosis Respiratory failure COPD HTN HLP Assessment/Plan Status post respiratory failure, resolved, using C Pap on and off, Continue to monitor Enterocutaneous fistula postoperatively, 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 Olvera Acute non-ST elevation myocardial infarction, poor R-wave progression in the anterior leads, probably type II myocardial infarctions due to respiratory failure, underlying coronary artery disease cannot be entirely excluded. Echocardiogram showed normal LV function. Continue with conservative management at this time, continue to monitor. Troponin level trended down, no acute EKG changes suggestive of active ischemia, conservative management at this time. Consider stress test as outpatient. Hypertension, controlled. Continue to monitor Hyperlipidemia maintained on Lipitor, on hold at this point COPD, oxygen dependent, receiving therapy. Morbid obesity Diabetes mellitus, followed and managed by primary care physician History of tobaccoism Generalized debility/weakness. Continue to monitor. Clinical Quality Measures DVT/VTE Risk/Contraindication: Risk Factor Score Per Nursin RFS Level Per Nursing on Admit: 4+=Very High JADE-IRASEMA,ESAU K PA Dec 08, 2018 08:21
[2018-12-08] MEDS ORDERED: FLUoxetine HCL 10 MG (PROzac) CAPSULE/TABLET PO SCH (09:00)
[2018-12-08] MEDS: DOCUSATE SODIUM 100 MG (COLACE) CAP PO SCH ×2 (09:00→21:34)
[2018-12-08] MEDS: SENNA W/DOCUSATE (SENOKOT S) TABLET PO SCH ×2 (09:00→21:34)
--- NOTE | 2018-12-08 09:01 | PM&R Progress Note ---
Subjective HPI/CC On Admission Date Seen by Provider: Dec 08, 2018 Time Seen by Provider: 08:30 Chief complaint: Disuse myopathy. HPI: This is a 63yoWF [facility] Pt known to me from last week hospital admission when she required intubation for acute on chronic respiratory failure with obesity-hypoventilation syndrome following hernia repair. She was able to be extubated without complication and continued to be on high flow oxygen and had suffered these issues following an uncomplicated ventral hernia surgery. Due to her morbid obesity and likely chronic CO2 retention she went into respiratory failure, had significant difficulties with multisystem organ dysfunction and was eventually able to move down to fourth floor but repeat CT scam obtained due to elevated white count per Dr. Olvera showed some sort of fistula. 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 She remained on TPN, clear liquid diet only and IV antibiotics to help heal that area. At this current time, the Pt is denying any pain and is getting around better since she was living independently and ambulating at home. The goal is to return to near prior level of function and be able to return back to independent level of living. Subjective/Events-last exam Wound vac is being tolerated very well with no pain. Psych evaluation for depression since Dr. Olvera started her on Prozac but she was already on Wellbutrin and Cymbalta so will fully evaluate the next step in her treatment. Potassium low at 3.5 on supplement. Hgb is 9.9. White count remains normal. Participating in all therapy. Check meds and labs Conferred with RN Reviewed therapy notes Review of Systems General: Fatigue Gastrointestinal: Abdominal Pain Objective Exam Vital Signs Vital Signs Date Time Temp Pulse Resp B/P (MAP) Pulse Ox O2 Delivery O2 Flow Rate FiO2 12/08/18 20:33 95 Nasal Cannula 3.00 12/08/18 15:47 97.2 80 16 117/80 (92) Capillary Refill : General Appearance: No Apparent Distress, WD/WN, Chronically ill, Obese HEENT: PERRL/EOMI, Normal ENT Inspection, Pharynx Normal, Moist Mucous Membranes Neck: Full Range of Motion, Normal Inspection, Non Tender, Supple Respiratory: Chest Non Tender, Lungs Clear, No Accessory Muscle Use, No Re spiratory Distress, Decreased Breath Sounds Cardiovascular: Regular Rate, Rhythm, No Edema, No Gallop, No JVD, No Murmur Gastrointestinal: Normal Bowel Sounds, No Organomegaly, No Pulsatile Mass, Soft, Tenderness, Other (fistula) Back: Normal Inspection, No CVA Tenderness, No Vertebral Tenderness Extremity: Normal Capillary Refill, Normal Inspection, Normal Range of Motion, Non Tender, No Calf Tenderness, No Pedal Edema Neurologic/Psychiatric: Alert, Oriented x3, No Motor/Sensory Deficits, Normal Mood/Affect, Motor Weakness (lower legs 3/5) Skin: Normal Color, Warm/Dry, Other (right flank hematoma?) Lymphatic: No Adenopathy Results/Procedures Lab Laboratory Tests 12/08/18 06:25 Patient resulted labs reviewed. FIM Transfers Therapy Code Descriptions/Definitions Functional [place] Measure: 0=Not Assessed/NA 4=Minimal Assistance 1=Total Assistance 5=Supervision or Setup 2=Maximal Assistance 6=Modified [place] 3=Moderate Assistance 7=Complete [place] Therapy Quality Codes: 6 Independent with activity with or without an assistive device 5 Patient requires set up or clean up by helper. Patient completes activity by themselves 4 Supervision or touching assist (CGA). [place] provide cues , steadying assist 3 The helper provides less than half the effort to complete the activity 2 The helper provides more than half the effort to complete the activity 1 Dependent. The helper does all the effort to complete an activity 7 Patient refused to complete or attempt activity 9 The patient did not perform the activity before the current illness or injury 88 Not attempted due to Medical conditions or safety concerns Transfers (B, C, W/C) (FIM): 4 (Pt used EOB for assist, CGA to w/c. ) Scootin Rollin Roll Left to Right (QC): 6 Supine to/from Sit: 5 Sit to/from Stand: 5 Sit to Lying (QC): 6 Sit to Stand (QC): 6 Chair/Qfd-gw-Kedxd Xfer(QC): 6 Bed to/from Chair: 6 Car Transfer (QC): 88 (Unsafe to attempt car transfer at this time. ) Gait Training Does the Patient Walk?: Yes Gait (FIM): 2 Distance (FIM): 6=398-84 ft (50, 25 ) Distance: 30' x 4 Walk 10 feet (QC): 6 Walk 50 ft with 2 Turns(QC): 6 Walk 150 ft (QC): 88 Walking 10ft/uneven surface-QC: 88 Gait Level of Assist: 4 Gait Persons Needed: 1 Gait Assistive Device: FWW Wheelchair Training Does the Pt Use a Wheelchair?: No Stair Training Stair Training: Handrails/: uses walker Stairs (FIM): 1 #of Steps: 1 1 Step (curb) (QC): 5 4 Steps (QC): 88 12 Steps (QC): 88 Stairs: Pattern: Step to Level of Assist: 5 Balance Picking up an Object (QC): 88 Mental Status/Objective Comprehension: 7 Expression: 7 Social Interaction: 7 Problem Solvin Memory: 6 ADL-Treatment Groomin (Pt able to brush hair sitting in w/c. Pt able to put dentures in mouth, set up.) Oral Hygiene (QC): 5 Bathing Location: L Arm, R Arm, L Upper Leg, R Upper Leg, L Lower Leg (including foot), R Lower Leg (including foot), Chest, Abdomen Shower/Bathe Self (QC): 3 Lower Extremity Dressin (Pt required min A to don/doff briefs. Pt needed assist to pulling machine operator toes. Pt able to hike briefs over waist. Pt required assist to straighten out back. Increased assist needed due to wound.) Lower Body Dressing (QC): 3 On/Off Footwear (QC): 3 Toiletin (Pt required assist to cleanse self and manipulate clothing after voiding and BM. Pt able to stand using grabbar, CGA. Discussed toilet tongs with pt to cleanse buttocks by self.) Toileting Hygiene (QC): 2 Toilet/Commode Transfer: 4 (Pt required w/c and grab bar, CGA steadying. ) Toilet Transfer (QC): 4 Shower: 5 (Pt required FWW, grabbar, and shower tub bench. ) Assessment/Plan Assessment and Plan Assess & Plan/Chief Complaint Plan: IRF protocol OOB in chair most of day TPN DC per Dr Olvera Advance diet doing well Right flank hematoma now improved so restarted Lovenox O2 maintained PLOF was ambulating at home Ostomy care per surgical service to help with leakage by placing wound vac Monitor labs prn Pet pass Psych evaluation for depression (1) Myopathy (2) COPD (chronic obstructive pulmonary disease) Status: Chronic Qualifiers: COPD type: unspecified COPD Qualified Codes: J44.9 - Chronic obstructive pulmonary disease, unspecified (3) Hypokalemia Status: Acute (4) Diabetes mellitus, type 2 Status: Chronic Qualifiers: Diabetes mellitus fpc insulin use: with terminal press operator use Diabetes mellitus complication status: with other specified complication Qualified Codes: E11.69 - Type 2 diabetes mellitus with other specified complication; Z79.4 - MCC (current) use of insulin (5) Ventilator dependence Status: Resolved Resolution Date/Time: 11/25/18 @ 20:44 (6) Enterocutaneous fistula Status: Acute (7) Obesity hypoventilation syndrome Status: Chronic (8) On total parenteral nutrition (TPN) Status: Acute (9) BRAYAN treated with BiPAP Status: Chronic (10) Smoker Status: Chronic ALEIDA LICEA DO Dec 08, 2018 09:01
[2018-12-08] MEDS: LINAGLIPTIN (TRADJENTA) 5 MG TABLET PO SCH (09:15)
[2018-12-08] MEDS: FUROSEMIDE 20 MG (LASIX) TAB PO SCH (09:15)
[2018-12-08] MEDS: meTOprolol TARTRATE 25 MG (LOPRESSOR) TABLET PO SCH ×3 (09:15→21:34)
[2018-12-08] MEDS: NICOTINE 21 MG (NICODERM) PATCH TD SCH (09:15)
[2018-12-08] MEDS: FAMOTIDINE 20 MG (PEPCID) TABLET PO SCH ×2 (09:15→21:34)
[2018-12-08] MEDS: amLODIPine 10 MG (NORVASC) TAB PO SCH (09:15)
[2018-12-08] MEDS: buPROPion SR 150 MG (WELLBUTRIN SR) TAB PO SCH (09:15)
[2018-12-08] MEDS: OMEGA 3 (FISH OIL) 1000 MG CAP PO SCH (09:15)
[2018-12-08] MEDS: lisINopril 20 MG (PRINIVIL) TABLET PO SCH (09:15)
[2018-12-08] MEDS: DULoxetine 30 MG (CYMBALTA) CAP PO SCH (09:15)
[2018-12-08] MEDS: MAGNESIUM OXIDE (MAG-OX)400 MG TAB PO SCH (09:16)
[2018-12-08] MEDS: NICOTINE PATCH REMOVAL TP SCH (09:16)
[2018-12-08] MEDS: VITAMIN D3 5,000 UNITS (CHOLECALCIFEROL ) CAPSULE PO SCH (09:16)
[2018-12-08] MEDS: ENOXAPARIN 60 MG/0.6 ML (LOVENOX) SYR SC SCH ×2 (09:16→21:33)
--- NOTE | 2018-12-08 09:54 | Physical Therapy Daily Note ---
PT Daily Note-Current Subjective Pt agreeable to PT session. States she still feels a little down. Reports she has been having burning pain behind L knee since this recent abdominal surgery. Pain is worse with WB Pain Numeric Pain Scale: 7 Comment: mostly behind L knee, but is down whole LLE, increases 10/10 with WB Appearance Upon arrival, pt in bed, awake and alert. Pt requesting and assisted to bathroom x2 episodes during tx session. At end of session pt sitting up in w/c with call light, phone and bedside table within reach Mental Status Patient Orientation: Person, Place, Time, Eyes Open, Situation, Normal For Age Attachments: Central Line, Saline Lock, Oxygen (3L O2/NC), Drains, Other-See Comments (wound vac), IV Transfers Therapy Code Descriptions/Definitions Functional [place] Measure: 0=Not Assessed/NA 4=Minimal Assistance 1=Total Assistance 5=Supervision or Setup 2=Maximal Assistance 6=Modified [place] 3=Moderate Assistance 7=Complete [place] Therapy Quality Codes: 6 Independent with activity with or without an assistive device 5 Patient requires set up or clean up by helper. Patient completes activity by themselves 4 Supervision or touching assist (CGA). [place] provide cues , steadying assist 3 The helper provides less than half the effort to complete the activity 2 The helper provides more than half the effort to complete the activity 1 Dependent. The helper does all the effort to complete an activity 7 Patient refused to complete or attempt activity 9 The patient did not perform the activity before the current illness or injury 88 Not attempted due to Medical conditions or safety concerns Transfers (B, C, W/C) (FIM): 5 Supine to/from Sit: 5 (with HOB elevated, use of bedrail) Sit to/from Stand: 5 good hand placement and demo of safety techniques Gait Training Does the Patient Walk?: Yes Gait (FIM): 2 Distance (FIM): 4=440-19 ft Distance: 80 x2 Gait Level of Assist: 5 (SBA and requiring A with IV pole, wound vac, O2 tank) Gait Persons Needed: 2 (to assist with IV pole, O2 tank, wound vac, following with w/c) Gait Assistive Device: FWW slow pace, fatigues easily/quickly, pain in knee limiting distance Exercises Supine Ex: Ankle pumps Seated Therapy Exercises: Ankle pumps, Sit to stand, Long arc quads, Chair press-ups, Hip flexion, Hip abd/add (with knees extended) Seated Reps: 20 Treatments bed mobility, toileting, transfers, gait, strength, balance, activity tolerance, education, functional mobility, safety Assessment Current Status: Good Progress increased time required with all activities PT Short Term Goals Short Term Goals Time Frame: Dec 15, 2018 Transfers (B,C,W/C) (FIM): 4 Gait (FIM): 4 Distance (FIM): 3=150 ft Gait Assistive Device: FWW PT Assisted Goals Assisted Goals PT Handle Sander Operator Goals Time Frame: Dec 29, 2018 Transfers (B,C,W/C) (FIM): 6 Sit to Lying (QC): 6 Lying-Sitting on Side/Bed(QC): 6 Sit to Stand (QC): 6 Rollin Roll Left to Right (QC): 6 Chair/Hku-al-Lwpqt Xfer(QC): 6 Car Transfer (QC): 6 Does the Patient Walk: Yes Gait (FIM): 6 Gait distance (FIM): 3=150 ft Walk 10 feet (QC): 6 Walk 10ft-Uneven Surface(QC): 6 Walk 50ft with 2 Turns (QC): 6 Walk 150 ft (QC): 6 Gait Assistive Device: FWW Does the Pt use WC or Scooter?: No Stairs (FIM): 5 # of Steps: 4 1 Step (curb) (QC): 6 4 Steps (QC): 6 12 Steps (QC): 9 Picking up an Object (QC): 9 PT Plan Treatment/Plan Treatment Plan: Continue Plan of Care Treatment Plan: Bed Mobility, Education, Functional Activity Juan F, Functional Strength, Group Therapy, Gait, Safety, Therapeutic Exercise, Transfers Treatment Duration: Dec 29, 2018 Frequency: At least 5 of 7 days/Wk (IRF) Estimated Hrs Per Day: 1.5 hours per day Patient and/or Family Agrees t: Yes Safety Risks/Education Patient Education: Gait Training, Transfer Techniques, Safety Issues Teaching Recipient: Patient Teaching Methods: Demonstration, Discussion Time/GCodes Time In: 900 Time Out: 1000 Total Billed Treatment Time: 60 Total Billed Treatment 1 visit, EX x15 min, GT x15 min, FA x30 min GLADIS SINCLAIR MAT LINKER Dec 08, 2018 09:54
[2018-12-08] MEDS: FLUCONAZOLE 200 MG/100 ML 50 ML, EMPTY IV BAG (PVC) 1 EA IV SCH ×2 (10:21)
--- NOTE | 2018-12-08 10:56 | Occupational Ther Daily Note ---
OT Current Status-Daily Note Mental Status/Objective Therapy Code Descriptions/Definitions Functional [place] Measure: 0=Not Assessed/NA 4=Minimal Assistance 1=Total Assistance 5=Supervision or Setup 2=Maximal Assistance 6=Modified [place] 3=Moderate Assistance 7=Complete [place] ADL-Treatment Therapy Code Descriptions/Definitions Functional [place] Measure: 0=Not Assessed/NA 4=Minimal Assistance 1=Total Assistance 5=Supervision or Setup 2=Maximal Assistance 6=Modified [place] 3=Moderate Assistance 7=Complete [place] Therapy Quality Codes: 6 Independent with activity with or without an assistive device 5 Patient requires set up or clean up by helper. Patient completes activity by themselves 4 Supervision or touching assist (CGA). [place] provide cues , steadying assist 3 The helper provides less than half the effort to complete the activity 2 The helper provides more than half the effort to complete the activity 1 Dependent. The helper does all the effort to complete an activity 7 Patient refused to complete or attempt activity 9 The patient did not perform the activity before the current illness or injury 88 Not attempted due to Medical conditions or safety concerns OT Short Term Goals Short Term Goals Time Frame: Dec 08, 2018 Eating(FIM): 5 Grooming(FIM): 5 Bathing(FIM): 4 Upper Body Dressing(FIM): 4 Lower Body Dressing(FIM): 3 Toileting(FIM): 3 Transfers (B,C,W/C) (FIM): 4 Toilet/Commode Transfer(FIM): 4 Shower Transfer(FIM): 4 Additional Short Term Goals: 1-Demonstrate ADL Tasks, 2-Verbalize Understanding, 3-ImproveStrength/Juan F 1=Demonstrate adherence to instructed precautions during ADL tasks. 2=Patient will verbalize/demonstrate understanding of assistive devices/modifications for ADL. 3=Patient will improve strength/tolerance for activity to enable patient to perform ADL's. OT Care Home Goals Care Home Goals Time Frame: Dec 22, 2018 Eating (FIM): 6 Eating (QC): 6 Groomin Oral Hygiene (QC): 6 Bathing(FIM): 5 Shower/Bathe Self (QC): 4 Upper Body Dressing(FIM): 5 Upper Body Dressing (QC): 4 Lower Body Dressing(FIM): 5 Lower Body Dressing (QC): 4 On/Off Footwear (QC): 4 Toileting(FIM): 6 Toileting Hygiene (QC): 6 Transfers (B,C,W/C) (FIM): 6 Toilet/Commode Transfer(FIM): 6 Toilet/Commode Transfer (QC): 6 Shower Transfer(FIM): 5 Additional Goals: 1-Demonstrate ADL Tasks, 2-Verbalize Understanding, 3- ImproveStrength/Juan F 1=Demonstrate adherence to instructed precautions during ADL tasks. 2=Patient will verbalize/demonstrate understanding of assistive devices/modifications for ADL. 3=Patient will improve strength/tolerance for activity to enable patient to perform ADL's. OT Education/Plan Treatment Plan/Plan of Care Patient would benefit from OT for education, treatment and training to promote independence in ADL's, mobility, safety and/or upper extremity function for ADL's. Plan of Care: ADL Retraining, Functional Mobility, Group Exercise/Act as Ind, UE Funct Exercise/Act Treatment Duration: Dec 22, 2018 Frequency: At least 5 of 7 days/Wk (IRF) Estimated Hrs Per Day: 1.5 hours per day Agreement: Yes Rehab Potential: CEDRIC Torres Dec 08, 2018 10:56
--- NOTE | 2018-12-08 12:23 | Occupational Ther Daily Note ---
OT Current Status-Daily Note Subjective Pt alert sitting in w/ upon OT arrival. Pt agrees to therapy. Mental Status/Objective Patient Orientation: Person, Place, Time, Situation Therapy Code Descriptions/Definitions Functional [place] Measure: 0=Not Assessed/NA 4=Minimal Assistance 1=Total Assistance 5=Supervision or Setup 2=Maximal Assistance 6=Modified [place] 3=Moderate Assistance 7=Complete [place] Attachments: Drains, Gonzalez Catheter, Oxygen ADL-Treatment Pt brushed hair in room. Pt declined brushing dentures. Therapy Code Descriptions/Definitions Functional [place] Measure: 0=Not Assessed/NA 4=Minimal Assistance 1=Total Assistance 5=Supervision or Setup 2=Maximal Assistance 6=Modified [place] 3=Moderate Assistance 7=Complete [place] Therapy Quality Codes: 6 Independent with activity with or without an assistive device 5 Patient requires set up or clean up by helper. Patient completes activity by themselves 4 Supervision or touching assist (CGA). [place] provide cues , steadying assist 3 The helper provides less than half the effort to complete the activity 2 The helper provides more than half the effort to complete the activity 1 Dependent. The helper does all the effort to complete an activity 7 Patient refused to complete or attempt activity 9 The patient did not perform the activity before the current illness or injury 88 Not attempted due to Medical conditions or safety concerns Upper Body (FIM): 5 (Pt required assist to manipulate tubing. Pt able to don shirt over head and thread arms by self, set up.) Upper Body Dressing (QC): 5 Lower Body Dressing (FIM): 5 (Pt able to don pants by self, SBA, set up. ) . Other Treatment Pt transported to [facility] in /. Pt takes increased time due manipulation during mobility to IV pole, drain, and oxygen tank. Pt ambulated to therapy gym using FWW with CGA. Pt participated in arm bike exercise duration 15 min with 20 watt resistance to strengthen upper body to increase daily activity task. Pt participated in shoulder ROM arc to increase shoulder ROM 2x B L/R UE for functional daily activity tasks. Pt required 2 rest breaks due to decreased activity tolerance. Pt transported back to room in /, call light and phone in reach. All pts needs met OT Short Term Goals Short Term Goals Time Frame: Dec 08, 2018 Eating(FIM): 5 Grooming(FIM): 5 Bathing(FIM): 4 Upper Body Dressing(FIM): 4 Lower Body Dressing(FIM): 3 Toileting(FIM): 3 Transfers (B,C,W/C) (FIM): 4 Toilet/Commode Transfer(FIM): 4 Shower Transfer(FIM): 4 Additional Short Term Goals: 1-Demonstrate ADL Tasks, 2-Verbalize Understanding, 3-ImproveStrength/Juan F 1=Demonstrate adherence to instructed precautions during ADL tasks. 2=Patient will verbalize/demonstrate understanding of assistive devices/modifications for ADL. 3=Patient will improve strength/tolerance for activity to enable patient to perform ADL's. OT Subcontract Administrator Goals Subcontract Administrator Goals Time Frame: Dec 22, 2018 Eating (FIM): 6 Eating (QC): 6 Groomin Oral Hygiene (QC): 6 Bathing(FIM): 5 Shower/Bathe Self (QC): 4 Upper Body Dressing(FIM): 5 Upper Body Dressing (QC): 4 Lower Body Dressing(FIM): 5 Lower Body Dressing (QC): 4 On/Off Footwear (QC): 4 Toileting(FIM): 6 Toileting Hygiene (QC): 6 Transfers (B,C,W/C) (FIM): 6 Toilet/Commode Transfer(FIM): 6 Toilet/Commode Transfer (QC): 6 Shower Transfer(FIM): 5 Additional Goals: 1-Demonstrate ADL Tasks, 2-Verbalize Understanding, 3- ImproveStrength/Juan F 1=Demonstrate adherence to instructed precautions during ADL tasks. 2=Patient will verbalize/demonstrate understanding of assistive devices/modifications for ADL. 3=Patient will improve strength/tolerance for activity to enable patient to perform ADL's. OT Education/Plan Discharge Recommendations Plan/Recommendations: Continue POC Treatment Plan/Plan of Care Patient would benefit from OT for education, treatment and training to promote independence in ADL's, mobility, safety and/or upper extremity function for ADL's. Plan of Care: ADL Retraining, Functional Mobility, Group Exercise/Act as Ind, UE Funct Exercise/Act Treatment Duration: Dec 22, 2018 Frequency: At least 5 of 7 days/Wk (IRF) Estimated Hrs Per Day: 1.5 hours per day Agreement: Yes Rehab Potential: Good Time/GCodes Start Time: 10:15 Stop Time: 11:30 Total Time Billed (hr/min): 75 Billed Treatment Time 1 visit- ADL 1 (20 min) EX 4 (55 min) CEDRIC DURANT Dec 08, 2018 12:23
--- NOTE | 2018-12-08 13:06 | Physical Therapy Daily Note ---
PT Daily Note-Current Subjective Patient reports fatigue and declined OOB activity. Agrees to exercises in bed. Mental Status Patient Orientation: Normal For Age Attachments: Oxygen, IV wound vac Transfers Therapy Code Descriptions/Definitions Functional [place] Measure: 0=Not Assessed/NA 4=Minimal Assistance 1=Total Assistance 5=Supervision or Setup 2=Maximal Assistance 6=Modified [place] 3=Moderate Assistance 7=Complete [place] Therapy Quality Codes: 6 Independent with activity with or without an assistive device 5 Patient requires set up or clean up by helper. Patient completes activity by themselves 4 Supervision or touching assist (CGA). [place] provide cues , steadying assist 3 The helper provides less than half the effort to complete the activity 2 The helper provides more than half the effort to complete the activity 1 Dependent. The helper does all the effort to complete an activity 7 Patient refused to complete or attempt activity 9 The patient did not perform the activity before the current illness or injury 88 Not attempted due to Medical conditions or safety concerns Exercises Supine Ex: Ankle pumps, Quad Set, Heel Slides, Straight leg raise, Hip abd/add Supine Reps: 15 (bilaterally) Assessment Patient tolerated treatment well and remains in bed with needs met. PT to increase activity as tolerated by patient. PT Short Term Goals Short Term Goals Time Frame: Dec 15, 2018 Transfers (B,C,W/C) (FIM): 4 Gait (FIM): 4 Distance (FIM): 3=150 ft Gait Assistive Device: FWW PT Director Construction Services Goals Director Construction Services Goals PT Senior Care Goals Time Frame: Dec 29, 2018 Transfers (B,C,W/C) (FIM): 6 Sit to Lying (QC): 6 Lying-Sitting on Side/Bed(QC): 6 Sit to Stand (QC): 6 Rollin Roll Left to Right (QC): 6 Chair/Jou-go-Pwjve Xfer(QC): 6 Car Transfer (QC): 6 Does the Patient Walk: Yes Gait (FIM): 6 Gait distance (FIM): 3=150 ft Walk 10 feet (QC): 6 Walk 10ft-Uneven Surface(QC): 6 Walk 50ft with 2 Turns (QC): 6 Walk 150 ft (QC): 6 Gait Assistive Device: FWW Does the Pt use WC or Scooter?: No Stairs (FIM): 5 # of Steps: 4 1 Step (curb) (QC): 6 4 Steps (QC): 6 12 Steps (QC): 9 Picking up an Object (QC): 9 PT Plan Treatment/Plan Treatment Plan: Continue Plan of Care Treatment Plan: Bed Mobility, Education, Functional Activity Juan F, Functional Strength, Group Therapy, Gait, Safety, Therapeutic Exercise, Transfers Treatment Duration: Dec 29, 2018 Frequency: At least 5 of 7 days/Wk (IRF) Estimated Hrs Per Day: 1.5 hours per day Patient and/or Family Agrees t: Yes Time/GCodes Time In: 1240 Time Out: 1255 Total Billed Treatment Time: 15 Total Billed Treatment 1 visit EX 15 min BO MONTAGUE PT Dec 08, 2018 13:06
--- NOTE | 2018-12-08 13:22 | Speech Therapy Daily Note ---
Speech Daily Progress Note Subjective Date Seen by Provider: Dec 08, 2018 Time Seen by Provider: 00:30 The patient had just received her breakfast when I entered her room for our ST session. Objective The patient utilized compensatory strategies as trained at 90% with minimal cues. Assessment Assessment Current Status: Good Progress Treatment Plan Continue Plan of Care Communication Comprehension: 7 Expression: 7 Social Cognition Social Interaction: 7 Problem Solvin Memory: 6 Speech Short Term Goals Short Term Goals Short Term Goals 1) The patient will tolerate least restrictive diet level without s/s of aspiration at 90% or greater. 2) The patient will utilize compensatory strategies as trained for safe oral intake at 90% or greater given minimal verbal cues. Speech Alf Goals Alf Goals The patient will maintain adequate nutrition/hydration via safe effective swallow function. Speech-Plan Patient/Family Goals Patient/Family Goals: The patient plans to discharge to a local assisted living. Treatment Plan Speech Therapy Treatment Plan: Continue Plan of Care The patient has progressed well with dysphagia therapy. Treatment Duration: Dec 16, 2018 Frequency: 5 times per week Estimated Hrs Per Day: .25 hour per day Rehab Potential: Good Barriers to Learning: Patient has a complex medical status. Pt/Family Agrees to Plan: Yes Safety Risks/Education Teaching Recipient: Patient Teaching Methods: Demonstration, Discussion Response to Teaching: Verbalize Understanding, Return Demonstration Education Topics Provided: Continued utilization of compensatory strategies for safe oral intake. Time Speech Therapy Time In: 08:00 Speech Therapy Time Out: 08:30 Total Billed Time: 30 Billed Treatment Time 1, ANTHONY Walton Dec 08, 2018 13:22
[2018-12-08 15:47] VITALS: BP 117/80
--- NOTE | 2018-12-08 15:53 | Progress Note ---
Subjective Date Seen by a Provider: Dec 08, 2018 Time Seen by a Provider: 15:50 Subjective/Events-last exam doing well. no fever/chills. minimal drain output. no fever/chills. Objective Exam Vital Signs Date Time Temp Pulse Resp B/P (MAP) Pulse Ox O2 Delivery O2 Flow Rate FiO2 12/08/18 15:47 97.2 80 16 117/80 (92) 96 Nasal Cannula 3.00 12/08/18 09:00 High Flow N/C 4.00 12/08/18 08:54 95 Nasal Cannula 4.00 12/08/18 06:17 97.8 78 20 145/75 (98) 96 Nasal Cannula 4.00 12/07/18 20:00 High Flow N/C 4.00 12/07/18 19:12 92 NIV CPAP 3.00 12/07/18 18:00 97.7 82 14 130/82 (98) 98 Nasal Cannula 4.00 I & O 12/08/18 07:00 Intake Total 960 ml Balance 960 ml Capillary Refill : General Appearance: No Apparent Distress HEENT: PERRL/EOMI Neck: Full Range of Motion Respiratory: Chest Non Tender, Decreased Breath Sounds, Rhonci Cardiovascular: Regular Rate, Rhythm Gastrointestinal: normal bowel sounds, soft Extremity: Normal Capillary Refill Neurologic/Psychiatric: Alert, Oriented x3 Skin: Normal Color Lymphatic: No Adenopathy Results Lab Laboratory Tests 12/07/18 16:33: Glucometer 143H 12/07/18 21:11: Glucometer 238H 12/08/18 05:51: Glucometer 127H 12/08/18 06:25: White Blood Count 5.7, Red Blood Count 3.54L, Hemoglobin 9.9L, Hematocrit 33L, Mean Corpuscular Volume 92, Mean Corpuscular Hemoglobin 28, Mean Corpuscular Hemoglobin Concent 31L, Red Cell Distribution Width 16.1H, Platelet Count 250, Mean Platelet Volume 9.6, Neutrophils (%) (Auto) 51, Lymphocytes (%) (Auto) 34, Monocytes (%) (Auto) 12, Eosinophils (%) (Auto) 2, Basophils (%) (Auto) 1, Neutrophils # (Auto) 2.9, Lymphocytes # (Auto) 1.9, Monocytes # (Auto) 0.7, Eosinophils # (Auto) 0.1, Basophils # (Auto) 0.1, Sodium Level 142, Potassium Level 3.5L, Chloride Level 103, Carbon Dioxide Level 26, Anion Gap 13, Blood Urea Nitrogen 12, Creatinine 0.84, Estimat Glomerular Filtration Rate > 60, BUN/Creatinine Ratio 14, Glucose Level 130H, Calcium Level 8.6, Corrected Calcium 9.2, Total Bilirubin 0.3, Aspartate Amino Transf (AST/SGOT) 13, Alanine Aminotransferase (ALT/SGPT) 13, Alkaline Phosphatase 63, Total Protein 7.2, Albumin 3.2 12/08/18 11:14: Glucometer 221H Assessment/Plan Assessment/Plan Assess & Plan/Chief Complaint s/p recurrent inc hernia repair with exacerbation COPD, exacerbation CHF, h ypergylemia and developement enterocutaneous fistula. cont current care. will continue iv abx until fistula closed. cont octreotide as well. may restart lovenox per surg however would try different locations. trial of wound vac to fistula and open abd wound. Clinical Quality Measures DVT/VTE Risk/Contraindication: Risk Factor Score Per Nursin RFS Level Per Nursing on Admit: 4+=Very High WENDI ELIZABETH MD Dec 08, 2018 15:53
[2018-12-08] MEDS: RT-ADVAIR HFA 115/21 MCG PER PUFF IH SCH (20:33)
[2018-12-09] MEDS: OCTREOTIDE INJECTION 500 MCG in NS (IVPB) 97.5 ML IV SCH ×3 (01:03→21:33)
[2018-12-09] MEDS: PIPERACILLIN/TAZOBACTAM (BULK) 4.5 GM in NS (IVPB) 100 ML IV SCH ×3 (01:04→18:10)
[2018-12-09 06:43] VITALS: BP 125/81
[2018-12-09] MEDS: inSUlin ASPART (NovoLOG) 1 UNIT/0.01 ML (CHARGE PER UNIT) SC SCH ×4 (07:53→20:47)
[2018-12-09] MEDS: RT-ADVAIR HFA 115/21 MCG PER PUFF IH SCH ×2 (07:54→19:02)
[2018-12-09 08:00] VITALS: BP 115/76
--- NOTE | 2018-12-09 08:00 | NUR ---
DENIES COMPLAINTS OR CONCERNS. O2 ON AT 3L. DENIES SOB. STATES PAIN IS WELL-CONTROLLED. MEDICATED WITH FENTANYL PRIOR TO WOUND VAC DRESSING CHANGE.
--- NOTE | 2018-12-09 09:32 | PM&R Progress Note ---
Subjective HPI/CC On Admission Date Seen by Provider: Dec 09, 2018 Time Seen by Provider: 09:00 Chief complaint: Disuse myopathy. HPI: This is a 63yoWF [facility] Pt known to me from last week hospital admission when she required intubation for acute on chronic respiratory failure with obesity-hypoventilation syndrome following hernia repair. She was able to be extubated without complication and continued to be on high flow oxygen and had suffered these issues following an uncomplicated ventral hernia surgery. Due to her morbid obesity and likely chronic CO2 retention she went into respiratory failure, had significant difficulties with multisystem organ dysfunction and was eventually able to move down to fourth floor but repeat CT scam obtained due to elevated white count per Dr. Olvera showed some sort of fistula. 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 She remained on TPN, clear liquid diet only and IV antibiotics to help heal that area. At this current time, the Pt is denying any pain and is getting around better since she was living independently and ambulating at home. The goal is to return to near prior level of function and be able to return back to independent level of living. Subjective/Events-last exam Wound vac is being tolerated very well with no pain. Psych evaluation completed and I spoke to professional counselor and she recommended Prozac 20mg daily and stop Wellbutrin so that was updated in her med list now Potassium supplement tolerated Hgb is 9.9 on last check Weaning O2 now at 3L/min down from 4 Pet pass was successful and she smiled for the first time when she talked about Glenna her dog. White count remains normal. Participating in all therapy. Check meds and labs Conferred with RN Reviewed therapy notes Review of Systems General: Fatigue Pulmonary: Dyspnea Gastrointestinal: Abdominal Pain Objective Exam Vital Signs Vital Signs Date Time Temp Pulse Resp B/P (MAP) Pulse Ox O2 Delivery O2 Flow Rate FiO2 12/09/18 09:00 High Flow N/C 3.00 12/09/18 07:54 95 12/09/18 06:43 98.2 71 16 125/81 (96) Capillary Refill : General Appearance: No Apparent Distress, WD/WN, Chronically ill, Obese HEENT: PERRL/EOMI, Normal ENT Inspection, Pharynx Normal, Moist Mucous Membranes Neck: Full Range of Motion, Normal Inspection, Non Tender, Supple Respiratory: Chest Non Tender, Lungs Clear, No Accessory Muscle Use, No Respiratory Distress, Decreased Breath Sounds Cardiovascular: Regular Rate, Rhythm, No Edema, No Gallop, No JVD, No Murmur Gastrointestinal: Normal Bowel Sounds, No Organomegaly, No Pulsatile Mass, Soft, Tenderness, Other (fistula) Back: Normal Inspection, No CVA Tenderness, No Vertebral Tenderness Extremity: Normal Capillary Refill, Normal Inspection, Normal Range of Motion, Non Tender, No Calf Tenderness, No Pedal Edema Neurologic/Psychiatric: Alert, Oriented x3, No Motor/Sensory Deficits, Normal Mood/Affect, Motor Weakness (lower legs 3/5) Skin: Normal Color, Warm/Dry, Other (right flank hematoma?) Lymphatic: No Adenopathy Results/Procedures Lab Patient resulted labs reviewed. FIM Transfers Therapy Code Descriptions/Definitions Functional [place] Measure: 0=Not Assessed/NA 4=Minimal Assistance 1=Total Assistance 5=Supervision or Setup 2=Maximal Assistance 6=Modified [place] 3=Moderate Assistance 7=Complete [place] Therapy Quality Codes: 6 Independent with activity with or without an assistive device 5 Patient requires set up or clean up by helper. Patient completes activity by themselves 4 Supervision or touching assist (CGA). [place] provide cues , steadying assist 3 The helper provides less than half the effort to complete the activity 2 The helper provides more than half the effort to complete the activity 1 Dependent. The helper does all the effort to complete an activity 7 Patient refused to complete or attempt activity 9 The patient did not perform the activity before the current illness or injury 88 Not attempted due to Medical conditions or safety concerns Transfers (B, C, W/C) (FIM): 5 Scootin Rollin Roll Left to Right (QC): 6 Supine to/from Sit: 5 (with HOB elevated, use of bedrail) Sit to/from Stand: 5 Sit to Lying (QC): 6 Sit to Stand (QC): 6 Chair/Mpg-pi-Rcanw Xfer(QC): 6 Bed to/from Chair: 6 Car Transfer (QC): 88 (Unsafe to attempt car transfer at this time. ) Gait Training Does the Patient Walk?: Yes Gait (FIM): 2 Distance (FIM): 2=683-20 ft Distance: 80 x2 Walk 10 feet (QC): 6 Walk 50 ft with 2 Turns(QC): 6 Walk 150 ft (QC): 88 Walking 10ft/uneven surface-QC: 88 Gait Level of Assist: 5 (SBA and requiring A with IV pole, wound vac, O2 tank) Gait Persons Needed: 2 (to assist with IV pole, O2 tank, wound vac, following with w/c) Gait Assistive Device: FWW Wheelchair Training Does the Pt Use a Wheelchair?: No Stair Training Stair Training: Handrails/: uses walker Stairs (FIM): 1 #of Steps: 1 1 Step (curb) (QC): 5 4 Steps (QC): 88 12 Steps (QC): 88 Stairs: Pattern: Step to Level of Assist: 5 Balance Picking up an Object (QC): 88 Mental Status/Objective Comprehension: 7 Expression: 7 Social Interaction: 7 Problem Solvin Memory: 6 ADL-Treatment Oral Hygiene (QC): 5 Bathing Location: L Arm, R Arm, L Upper Leg, R Upper Leg, L Lower Leg (including foot), R Lower Leg (including foot), Chest, Abdomen Shower/Bathe Self (QC): 3 Upper Extremity Dressin (Pt required assist to manipulate tubing. Pt able t don shirt over head and thread arms by self, set up.) Upper Body Dressing (QC): 5 Lower Extremity Dressin (Pt able to don pants by self, SBA, set up. ) Lower Body Dressing (QC): 3 On/Off Footwear (QC): 3 Toiletin (Pt required assist to cleanse self and manipulate clothing after voiding and BM. Pt able to stand using grabbar, CGA. Discussed toilet tongs with pt to cleanse buttocks by self.) Toileting Hygiene (QC): 2 Toilet/Commode Transfer: 4 (Pt required w/c and grab bar, CGA steadying. ) Toilet Transfer (QC): 4 Shower: 5 (Pt required FWW, grabbar, and shower tub bench. ) Assessment/Plan Assessment and Plan Assess & Plan/Chief Complaint Plan: IRF protocol OOB in chair most of day when not in therapy Advance diet doing well Right flank hematoma now improved so restarted Lovenox O2 maintained and weaning well PLOF was ambulating at home Ostomy care per surgical service to help with leakage by placing wound vac Monitor labs prn Pet pass was successful Psych evaluation for depression is appreciated and I changed meds to her recs. (1) Myopathy (2) COPD (chronic obstructive pulmonary disease) Status: Chronic Qualifiers: COPD type: unspecified COPD Qualified Codes: J44.9 - Chronic obstructive pulmonary disease, unspecified (3) Hypokalemia Status: Acute (4) Diabetes mellitus, type 2 Status: Chronic Qualifiers: Diabetes mellitus intermediate teacher insulin use: with intermediate teacher use Diabetes janel sanches complication status: with other specified complication Qualified Codes: E11.69 - Type 2 diabetes mellitus with other specified complication; Z79.4 - terminal superintendent (current) use of insulin (5) Ventilator dependence Status: Resolved Resolution Date/Time: 11/25/18 @ 20:44 (6) Enterocutaneous fistula Status: Acute (7) Obesity hypoventilation syndrome Status: Chronic (8) On total parenteral nutrition (TPN) Status: Acute (9) BRAYAN treated with BiPAP Status: Chronic (10) Smoker Status: Chronic ALEIDA LICEA DO Dec 09, 2018 09:31
--- NOTE | 2018-12-09 09:51 | Occupational Ther Daily Note ---
OT Current Status-Daily Note Subjective Pt alert, lying in bed. Wound care nrsg finishing up with changing wound vac. Nrsg stated that pt was administered pain medications during changing wound vac. Pt stated that she was a little loopy and could fall asleep but did agree to therapy. Mental Status/Objective Patient Orientation: Person, Place, Time, Situation Therapy Code Descriptions/Definitions Functional [place] Measure: 0=Not Assessed/NA 4=Minimal Assistance 1=Total Assistance 5=Supervision or Setup 2=Maximal Assistance 6=Modified [place] 3=Moderate Assistance 7=Complete [place] ADL-Treatment Min A with HOB raised, pt able to go from supine to EOB. With w/c positioned in front of pt, SBA for bed <--> w/c transfer. Pt opted to use w/c to go to bathroom due to 'feeling loopy'. Pt sat at sink to complete own grooming. Therapy Code Descriptions/Definitions Functional [place] Measure: 0=Not Assessed/NA 4=Minimal Assistance 1=Total Assistance 5=Supervision or Setup 2=Maximal Assistance 6=Modified [place] 3=Moderate Assistance 7=Complete [place] Therapy Quality Codes: 6 Independent with activity with or without an assistive device 5 Patient requires set up or clean up by helper. Patient completes activity by themselves 4 Supervision or touching assist (CGA). [place] provide cues , steadying assist 3 The helper provides less than half the effort to complete the activity 2 The helper provides more than half the effort to complete the activity 1 Dependent. The helper does all the effort to complete an activity 7 Patient refused to complete or attempt activity 9 The patient did not perform the activity before the current illness or injury 88 Not attempted due to Medical conditions or safety concerns Grooming (FIM): 6 Transfers (B, C, W/C) (FIM): 5 Other Treatment Pt demonstrated understanding and good carry-over with medium resistance theraband HEP for UE's. Pt completed 3 sets 10 reps with recovery breaks between each set. After therapy, pt lying in bed with call light/phone in reac h. Nrsg in room after therapy. All needs met in room. OT Short Term Goals Short Term Goals Time Frame: Dec 08, 2018 Eating(FIM): 5 Grooming(FIM): 5 Bathing(FIM): 4 Upper Body Dressing(FIM): 4 Lower Body Dressing(FIM): 3 Toileting(FIM): 3 Transfers (B,C,W/C) (FIM): 4 Toilet/Commode Transfer(FIM): 4 Shower Transfer(FIM): 4 Additional Short Term Goals: 1-Demonstrate ADL Tasks, 2-Verbalize Understanding, 3-ImproveStrength/Juan F 1=Demonstrate adherence to instructed precautions during ADL tasks. 2=Patient will verbalize/demonstrate understanding of assistive devices/modifications for ADL. 3=Patient will improve strength/tolerance for activity to enable patient to perform ADL's. OT Halfway Goals Halfway Goals Time Frame: Dec 22, 2018 Eating (FIM): 6 Eating (QC): 6 Groomin Oral Hygiene (QC): 6 Bathing(FIM): 5 Shower/Bathe Self (QC): 4 Upper Body Dressing(FIM): 5 Upper Body Dressing (QC): 4 Lower Body Dressing(FIM): 5 Lower Body Dressing (QC): 4 On/Off Footwear (QC): 4 Toileting(FIM): 6 Toileting Hygiene (QC): 6 Transfers (B,C,W/C) (FIM): 6 Toilet/Commode Transfer(FIM): 6 Toilet/Commode Transfer (QC): 6 Shower Transfer(FIM): 5 Additional Goals: 1-Demonstrate ADL Tasks, 2-Verbalize Understanding, 3- ImproveStrength/Juan F 1=Demonstrate adherence to instructed precautions during ADL tasks. 2=Patient will verbalize/demonstrate understanding of assistive devices/modifications for ADL. 3=Patient will improve strength/tolerance for activity to enable patient to perform ADL's. OT Education/Plan Problem List/Assessment Assessment: Decreased Activ Tolerance, Impaired Self-Care Skills, Restricted Funct UE ROM Discharge Recommendations Plan/Recommendations: Continue POC Treatment Plan/Plan of Care Patient would benefit from OT for education, treatment and training to promote independence in ADL's, mobility, safety and/or upper extremity function for ADL's. Plan of Care: ADL Retraining, Functional Mobility, Group Exercise/Act as Ind, UE Funct Exercise/Act Treatment Duration: Dec 22, 2018 Frequency: At least 5 of 7 days/Wk (IRF) Estimated Hrs Per Day: 1.5 hours per day Agreement: Yes Rehab Potential: Good Time/GCodes Start Time: 09:00 Stop Time: 10:00 Total Time Billed (hr/min): 60 Billed Treatment Time 1 visit-ADL 3 (45 min) EX 1 (15 min) CEDRIC DURANT Dec 09, 2018 09:51
[2018-12-09] MEDS: OMEGA 3 (FISH OIL) 1000 MG CAP PO SCH (09:54)
[2018-12-09] MEDS: VITAMIN D3 5,000 UNITS (CHOLECALCIFEROL ) CAPSULE PO SCH (09:54)
[2018-12-09] MEDS: buPROPion SR 150 MG (WELLBUTRIN SR) TAB PO SCH (09:54)
[2018-12-09] MEDS: FAMOTIDINE 20 MG (PEPCID) TABLET PO SCH ×2 (09:54→21:27)
[2018-12-09] MEDS: DULoxetine 30 MG (CYMBALTA) CAP PO SCH (09:54)
[2018-12-09] MEDS: LINAGLIPTIN (TRADJENTA) 5 MG TABLET PO SCH (09:55)
[2018-12-09] MEDS: lisINopril 20 MG (PRINIVIL) TABLET PO SCH (09:55)
[2018-12-09] MEDS: FUROSEMIDE 20 MG (LASIX) TAB PO SCH (09:55)
[2018-12-09] MEDS: meTOprolol TARTRATE 25 MG (LOPRESSOR) TABLET PO SCH ×3 (09:55→21:27)
[2018-12-09] MEDS: amLODIPine 10 MG (NORVASC) TAB PO SCH (09:55)
[2018-12-09] MEDS: NICOTINE 21 MG (NICODERM) PATCH TD SCH (09:56)
[2018-12-09] MEDS: NICOTINE PATCH REMOVAL TP SCH (09:56)
[2018-12-09] MEDS: DOCUSATE SODIUM 100 MG (COLACE) CAP PO SCH ×2 (09:58→21:28)
--- NOTE | 2018-12-09 09:58 | NUR ---
Spoke with Dr. Olvera reference dressing change. Dr. Olvera is alright with next dressing change 12/13/18 instead of 12/12/18.
[2018-12-09] MEDS: SENNA W/DOCUSATE (SENOKOT S) TABLET PO SCH ×2 (09:59→21:28)
[2018-12-09] MEDS: FLUCONAZOLE 200 MG/100 ML 50 ML, EMPTY IV BAG (PVC) 1 EA IV SCH ×2 (10:02)
--- NOTE | 2018-12-09 10:14 | Cardiology Progress Note ---
Subjective Date Seen by Provider: Dec 09, 2018 Time Seen by Provider: 10:11 Subjective/Events-last exam patient was seen and evaluated, feeling better today. No new complaint Review of Systems General: No Chills, No Night Sweats, No Fatigue, No Malaise, No Appetite, No Other HEENT: No Head Aches, No Visual Changes, No Eye Pain, No Ear Pain, No Dysphasia, No Sinus Congestion, No Post Nasal Drip, No Sore Throat, No Other Pulmonary: No Dyspnea, No Cough, No Pleuritic Chest Pain, No Other Cardiovascular: No: Chest Pain, Palpitations, Orthopnea, Paroxysmal Noc. Dyspnea, Edema, Lt Headedness, Other Objective-Cardiology Exam Last Set of Vital Signs Vital Signs 12/09/18 12/09/18 06:43 07:54 Temp 98.2 Pulse 71 Resp 16 B/P (MAP) 125/81 (96) Pulse Ox 95 O2 Delivery Nasal Cannula O2 Flow Rate 3.00 Capillary Refill : I&O Intake and Output 12/08/18 23:59 Intake Total 1290 ml Balance 1290 ml Intake Oral 1050 ml IV Total 240 ml # Voids 7 # Bowel Movements 3 General: Alert, Oriented X3, Cooperative HEENT: Atraumatic, PERRLA Neck: Supple, No JVD, No Thyromegaly Lungs: Clear to Auscultation, Normal Air Movement Heart: Regular Rate, Normal S1, Normal S2, No Murmurs Abdomen: Normal Bowel Sounds, Soft, No Tenderness, No Hepatosplenomegaly, No Masses Extremities: No Clubbing, No Cyanosis, No Edema, Normal Pulses, No Tenderness/Swelling Skin: No Rashes, No Breakdown, No Significant Lesion Neuro: Normal Speech, Cranial Nerves 3-12 NL Psych/Mental Status: Mental Status NL, Mood NL Results Lab A/P-Cardiology Admission Diagnosis Respiratory failure COPD HTN HLP Assessment/Plan Status post respiratory failure, resolved, using C Pap on and off, Continue to monitor Enterocutaneous fistula postoperatively, 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 Olvera Acute non-ST elevation myocardial infarction, poor R-wave progression in the anterior leads, probably type II myocardial infarctions due to respiratory failure, underlying coronary artery disease cannot be entirely excluded. Echocardiogram showed normal LV function. Continue with conservative management at this time, continue to monitor. Troponin level trended down, no acute EKG changes suggestive of active ischemia, conservative management at this time. Consider stress test as outpatient. Hypertension, controlled, monitor blood pressure Hyperlipidemia maintained on Lipitor, on hold at this point COPD, oxygen dependent, receiving therapy. Morbid obesity Diabetes mellitus, followed and managed by primary care physician History of tobaccoism Generalized debility/weakness. Continue to monitor. Clinical Quality Measures DVT/VTE Risk/Contraindication: Risk Factor Score Per Nursin RFS Level Per Nursing on Admit: 4+=Very High AUSTEN MARTÍNEZ MD Dec 09, 2018 10:14
[2018-12-09] MEDS: MAGNESIUM OXIDE (MAG-OX)400 MG TAB PO SCH (10:38)
[2018-12-09] MEDS: ENOXAPARIN 60 MG/0.6 ML (LOVENOX) SYR SC SCH ×2 (10:38→21:32)
--- NOTE | 2018-12-09 10:38 | Progress Note ---
Subjective Date Seen by a Provider: Dec 09, 2018 Time Seen by a Provider: 10:00 Subjective/Events-last exam doing well. vac changed today. total output less than 300ml. no fever/chills. Objective Exam Vital Signs Date Time Temp Pulse Resp B/P (MAP) Pulse Ox O2 Delivery O2 Flow Rate FiO2 12/09/18 07:54 95 Nasal Cannula 3.00 12/09/18 06:43 98.2 71 16 125/81 (96) 94 Nasal Cannula 3.00 12/08/18 20:33 95 Nasal Cannula 3.00 12/08/18 20:00 High Flow N/C 4.00 12/08/18 15:47 97.2 80 16 117/80 (92) 96 Nasal Cannula 3.00 I & O 12/09/18 07:00 Intake Total 1340 ml Balance 1340 ml Capillary Refill : General Appearance: No Apparent Distress HEENT: PERRL/EOMI Neck: Full Range of Motion Respiratory: Decreased Breath Sounds, Rhonci Cardiovascular: Regular Rate, Rhythm Gastrointestinal: normal bowel sounds, non tender, soft Extremity: Normal Capillary Refill Neurologic/Psychiatric: Alert, Oriented x3 Skin: Normal Color Lymphatic: No Adenopathy Results Lab Laboratory Tests 12/08/18 11:14: Glucometer 221H 12/08/18 15:44: Glucometer 147H 12/08/18 20:18: Glucometer 169H 12/09/18 05:15: Glucometer 125H Assessment/Plan Assessment/Plan Assess & Plan/Chief Complaint s/p recurrent inc hernia repair with exacerbation COPD, exacerbation CHF, hypergylemia and developement enterocutaneous fistula. cont current care. will continue iv abx until fistula closed. cont octreotide as well. may restart lovenox per surg however would try different locations. trial of wound vac to fistula and open abd wound. Clinical Quality Measures DVT/VTE Risk/Contraindication: Risk Factor Score Per Nursin RFS Level Per Nursing on Admit: 4+=Very High WENDI ELIZABETH MD Dec 09, 2018 10:38
--- NOTE | 2018-12-09 10:59 | Physical Therapy Daily Note ---
PT Daily Note-Current Subjective Pt. agrees to Rx in bed for exercises but declines gait or up EOB stating she had fentanyl for pain preceding wound vacc and wound work and is still very obtunded. It was noted that [t fell asleep between exercises a couple times and needed tactile stim to really awaken Mental Status Patient Orientation: Person, Place, Time, Situation Attachments: Oxygen, Other-See Comments (wound vacc), IV Transfers Therapy Code Descriptions/Definitions Functional [place] Measure: 0=Not Assessed/NA 4=Minimal Assistance 1=Total Assistance 5=Supervision or Setup 2=Maximal Assistance 6=Modified [place] 3=Moderate Assistance 7=Complete [place] Therapy Quality Codes: 6 Independent with activity with or without an assistive device 5 Patient requires set up or clean up by helper. Patient completes activity by themselves 4 Supervision or touching assist (CGA). [place] provide cues , steadying assist 3 The helper provides less than half the effort to complete the activity 2 The helper provides more than half the effort to complete the activity 1 Dependent. The helper does all the effort to complete an activity 7 Patient refused to complete or attempt activity 9 The patient did not perform the activity before the current illness or injury 88 Not attempted due to Medical conditions or safety concerns Scootin Rollin inep rolls and scoots in bed , practiced and observed multiple times during Rx Exercises Supine Ex: Bridging, Ankle pumps, Quad Set, Rolling, Glut sets, Heel Slides, Short Arc Quads, Scooting, Straight leg raise, Hip abd/add Supine Reps: 15 (x2) Assessment Current Status: Fair Progress PT Short Term Goals Short Term Goals Time Frame: Dec 15, 2018 Transfers (B,C,W/C) (FIM): 4 Gait (FIM): 4 Distance (FIM): 3=150 ft Gait Assistive Device: FWW PT Metal Fabrication Supervisor Goals Metal Fabrication Supervisor Goals PT Halfway Goals Time Frame: Dec 29, 2018 Transfers (B,C,W/C) (FIM): 6 Sit to Lying (QC): 6 Lying-Sitting on Side/Bed(QC): 6 Sit to Stand (QC): 6 Rollin Roll Left to Right (QC): 6 Chair/Ihz-du-Ycccv Xfer(QC): 6 Car Transfer (QC): 6 Does the Patient Walk: Yes Gait (FIM): 6 Gait distance (FIM): 3=150 ft Walk 10 feet (QC): 6 Walk 10ft-Uneven Surface(QC): 6 Walk 50ft with 2 Turns (QC): 6 Walk 150 ft (QC): 6 Gait Assistive Device: FWW Does the Pt use WC or Scooter?: No Stairs (FIM): 5 # of Steps: 4 1 Step (curb) (QC): 6 4 Steps (QC): 6 12 Steps (QC): 9 Picking up an Object (QC): 9 PT Plan Treatment/Plan Treatment Plan: Continue Plan of Care Treatment Plan: Bed Mobility, Education, Functional Activity Juan F, Functional Strength, Group Therapy, Gait, Safety, Therapeutic Exercise, Transfers Treatment Duration: Dec 29, 2018 Frequency: At least 5 of 7 days/Wk (IRF) Estimated Hrs Per Day: 1.5 hours per day Patient and/or Family Agrees t: Yes Safety Risks/Education Patient Education: Correct Positioning, Disease Process, Safety Issues Teaching Recipient: Patient Teaching Methods: Demonstration, Discussion Response to Teaching: Verbalize Understanding, Return Demonstration, Reinforcement Needed Time/GCodes Time In: 1015 Time Out: 1100 Total Billed Treatment Time: 45 Total Billed Treatment 1,EX35m,FA10m ALEXANDRE MICHAELS ORE SMELTER Dec 09, 2018 10:59
--- NOTE | 2018-12-09 13:22 | Speech Therapy Daily Note ---
Speech Daily Progress Note Subjective Date Seen by Provider: Dec 09, 2018 Time Seen by Provider: 00:30 Patient states she feels like she is getting stronger day by day. Objective The patient utilized compensatory strategies for safe oral intake of her modified diet at 80% with minimal verbal cues. Assessment Assessment Current Status: Good Progress Treatment Plan Continue Plan of Care Communication Comprehension: 7 Expression: 7 Social Cognition Social Interaction: 7 Problem Solvin Memory: 6 Speech Short Term Goals Short Term Goals Short Term Goals 1) The patient will tolerate least restrictive diet level without s/s of aspiration at 90% or greater. 2) The patient will utilize compensatory strategies as trained for safe oral intake at 90% or greater given minimal verbal cues. Speech Group Home Goals Receiving Clerk Goals The patient will maintain adequate nutrition/hydration via safe effective swallow function. Speech-Plan Patient/Family Goals Patient/Family Goals: The patient plans on moving to assisted living post rehab. Treatment Plan Speech Therapy Treatment Plan: Continue Plan of Care Treatment Duration: Dec 16, 2018 Frequency: 5 times per week Estimated Hrs Per Day: .25 hour per day Rehab Potential: Good Barriers to Learning: Patient has a complex medical status Pt/Family Agrees to Plan: Yes Safety Risks/Education Teaching Recipient: Patient Teaching Methods: Demonstration, Discussion Response to Teaching: Verbalize Understanding, Return Demonstration Education Topics Provided: Continued safety with oral intake Time Speech Therapy Time In: 11:30 Speech Therapy Time Out: 12:00 Total Billed Time: 30 Billed Treatment Time SADIE Barry ANTHONY Carvalho Dec 09, 2018 13:22
--- NOTE | 2018-12-09 14:00 | NUR ---
BEHAVIORAL HEALTH HERE TO SEE PATIENT.
--- NOTE | 2018-12-09 14:42 | Therapy Group Daily Note ---
Therapy Daily Group Note Patient Education Topic Home Safety, Fall Prevention, Home Safety, Exercises Exercises LE Seated Exercise, UE Exercise Session Ratio (pt:therapist): 4:1 Goal of Session: Education on ARU Expectations, Home Safety Strategies, UE/LE Strengthing Goal Met for this Session: Yes Pt Benefit of Group: Contributions to Others, F/U Use of Strategies @Home, Increased Functional Safety, Increased Functional Strength, Recognition of Peers, Socialization Other/Notes Each patient participated in group therapy in the common area of rehab. Each patient ambulated or was transported into a seated [place] with the other patients. Each patient had to introduce themselves and answer a question involving memory and recall. Patients then played a home safety jeopardy game with UE and LE exercises at different times. Patients were encouraged to participate with others during the answer time and exercises. Afterward, each patient ambulated or was transported back to their room and placed in bed or recliner with nurse call, phone, tray. Patient benefitted from this group by knowing more about home safety to decrease risk of falling and injury at home. This patient had to leave group a little early because behavioral health is here to see her. Start Time: 13:00 Stop Time: 14:00 Total Billed Treatment Time: 60 Total Billed Treatment 1 visit GRP [id number] LEWIS PT Dec 09, 2018 14:42
[2018-12-09] MEDS: CATHETER FLUSH 10 ML SYR IV SCH ×2 (14:53→21:29)
--- NOTE | 2018-12-09 15:22 | Behavioral Health Consult ---
Consult- Consult Date Seen by Provider: Dec 09, 2018 Time Seen by Provider: 14:00 Patient: Carisa Hernandez : 1955 Date: 12/09/2018 Referral: Dr. Conrad CPT Code: 36546 Psychodiagnostic Examination and 15370 Interactive Complexity, 1 unit(s) Start Time: 1400 Stop Time: 1510 Chief Complaint: Depression Referral: Ms. Hernandez is a 63 year old female referred by Dr. Conrad for a clinical diagnostic assessment. Information sources for this evaluation include self-report/observation and medical records. Presenting Problem: The presenting clinical problem is Depression. Duration of the current problem was reported as long standing with increased symptoms following declining health. The primary clinical theme and problem discussed during the appointment was that Ms. Hernandez has had a long history of depression dating back to the of her son in 1998. She continues to have recurring grief and struggles with this loss. Ms. Hernandez has had increasing health issues and she was on disability prior to her recent surgery and hospitalization. She had been limited in her physical ability to get out of her apartment and engage socially. Ms. Hernandez stated that she had been on Prozac and requested to be changed to Wellbutrin because she wanted to quit smoking. She did not quit completely, but had cut down. She does not feel that the Wellbutrin was as effective for her depressive symptoms. She is agreeable to discontinue the Wellbutrin and start back on the Prozac. Ms. Hernandez was also open to outpatient counseling to develop some coping skills. She did have counseling in the past at [facility] in [place], [place]. Symptoms observed or reported requiring current level of care include depressed mood, familial stress/strain, fatigue/low energy, grief, and worry. Observations/Mental Status: Ms. Rich general approach to the evaluation indicated interest. Orientation was intact for person, place, time, and situation. Ms. Hernandez evidenced good understanding of the reason for the appointment. Ms. Rich approach to the session was cooperative. The predominant mood was that of flat with affect appropriate to expressed concerns and presenting problem. Immediate attention and concentration was unremarkable clinically during the interview. Level of intellectual functioning compared to same age peers was average range. Thought processes were found to be generally logical, coherent and goal directed. Thought content appeared normal. Psyc homotor functioning was within normal limits. Tone of voice was normal and controlled and manner of speech was normal. Expressive speech was marked by fluent speech and language. Current destructive behavior patterns: none reported or indicated. Disturbance in sleep patterns: not assessed. Eye contact was good. Insight was average. Ms. Rich style of interacting during the appointment was appropriate and motivated. Current/Previous Mental Health Treatment: Past psychiatric history: Medication management with primary care physician, Dr. Francois. Previous counseling at [facility]. History of self or other harm: denied. History of abuse: not assessed. Psychiatric History: Current medications: Psychiatric medications include Wellbutrin and Cymbalta Summary of Assessment Information/Prognosis: Ms. Rich presenting problem and symptoms appear consistent with a preliminary diagnosis of F33.2 Major Depressive Disorder, Recurrent, Severe without Psychotic Features at this point. Current emotional symptoms are of moderate intensity. Diagnostic Impressions: ICD-10: F33.2 Major Depressive Disorder, Recurrent, Severe without Psychotic Features Initial Treatment Plan/Recommendations: The recommendations at this time include the following: Discontinue Wellbutrin and start prescription of Prozac. Ms. Hernandez had previously been on a dose of 80mg, which is a maximum dose and she had been on it for several years. Recommend starting at 20mg with an increase to 40mg and reevaluate symptoms at that time. Ms. Hernandez verbalized understanding of these recommendations and an intention to comply. JUANCARLOS LIN Dec 09, 2018 15:22
[2018-12-09] MEDS: FLUoxetine HCL 20 MG (PROzac) CAP PO SCH (16:37)
[2018-12-09 17:00] VITALS: BP 113/70
[2018-12-09] MEDS: CATHETER FLUSH 10 ML SYR IV PRN (18:11)
[2018-12-09 20:44] VITALS: BP 108/63
[2018-12-10] MEDS: PIPERACILLIN/TAZOBACTAM (BULK) 4.5 GM in NS (IVPB) 100 ML IV SCH ×3 (01:17→18:34)
[2018-12-10 05:39] VITALS: BP 118/76
[2018-12-10] MEDS: CATHETER FLUSH 10 ML SYR IV SCH ×3 (05:43→21:43)
[2018-12-10] MEDS: inSUlin ASPART (NovoLOG) 1 UNIT/0.01 ML (CHARGE PER UNIT) SC SCH ×4 (06:41→20:07)
[2018-12-10] MEDS: OCTREOTIDE INJECTION 500 MCG in NS (IVPB) 97.5 ML IV SCH (06:59)
[2018-12-10] MEDS: RT-ADVAIR HFA 115/21 MCG PER PUFF IH SCH ×2 (07:34→21:45)
[2018-12-10 08:00] VITALS: BP 137/83
--- NOTE | 2018-12-10 08:00 | NUR ---
STATES WAS AWAKE A LOT THROUGHOUT NIGHT, BUT IS OFTEN THAT WAY AT HOME ALSO. NO CHANGES.
[2018-12-10] MEDS: MAGNESIUM OXIDE (MAG-OX)400 MG TAB PO SCH (09:41)
[2018-12-10] MEDS: DULoxetine 30 MG (CYMBALTA) CAP PO SCH (09:41)
[2018-12-10] MEDS: VITAMIN D3 5,000 UNITS (CHOLECALCIFEROL ) CAPSULE PO SCH (09:41)
[2018-12-10] MEDS: FAMOTIDINE 20 MG (PEPCID) TABLET PO SCH ×2 (09:41→21:43)
[2018-12-10] MEDS: lisINopril 20 MG (PRINIVIL) TABLET PO SCH (09:41)
[2018-12-10] MEDS: OMEGA 3 (FISH OIL) 1000 MG CAP PO SCH (09:41)
[2018-12-10] MEDS: FLUoxetine HCL 20 MG (PROzac) CAP PO SCH (09:41)
[2018-12-10] MEDS: meTOprolol TARTRATE 25 MG (LOPRESSOR) TABLET PO SCH ×3 (09:41→21:42)
[2018-12-10] MEDS: LINAGLIPTIN (TRADJENTA) 5 MG TABLET PO SCH (09:41)
[2018-12-10] MEDS: FUROSEMIDE 20 MG (LASIX) TAB PO SCH (09:42)
[2018-12-10] MEDS: amLODIPine 10 MG (NORVASC) TAB PO SCH (09:42)
[2018-12-10] MEDS: DOCUSATE SODIUM 100 MG (COLACE) CAP PO SCH ×2 (09:43→20:04)
[2018-12-10] MEDS: SENNA W/DOCUSATE (SENOKOT S) TABLET PO SCH ×2 (09:43→20:04)
[2018-12-10] MEDS: NICOTINE 21 MG (NICODERM) PATCH TD SCH (09:44)
[2018-12-10] MEDS: NICOTINE PATCH REMOVAL TP SCH (09:45)
[2018-12-10] MEDS: FLUCONAZOLE 200 MG/100 ML 50 ML, EMPTY IV BAG (PVC) 1 EA IV SCH ×2 (09:46)
[2018-12-10] MEDS: ENOXAPARIN 60 MG/0.6 ML (LOVENOX) SYR SC SCH ×2 (10:36→21:43)
--- NOTE | 2018-12-10 10:39 | PM&R Progress Note ---
Subjective HPI/CC On Admission Date Seen by Provider: Dec 10, 2018 Time Seen by Provider: 10:45 Chief complaint: Disuse myopathy. HPI: This is a 63yoWF [facility] Pt known to me from last week hospital admission when she required intubation for acute on chronic respiratory failure with obesity-hypoventilation syndrome following hernia repair. She was able to be extubated without complication and continued to be on high flow oxygen and had suffered these issues following an uncomplicated ventral hernia surgery. Due to her morbid obesity and likely chronic CO2 retention she went into respiratory failure, had significant difficulties with multisystem organ dysfunction and was eventually able to move down to fourth floor but repeat CT scam obtained due to elevated white count per Dr. Olvera showed some sort of fistula. 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 She remained on TPN, clear liquid diet only and IV antibiotics to help heal that area. At this current time, the Pt is denying any pain and is getting around better since she was living independently and ambulating at home. The goal is to return to near prior level of function and be able to return back to independent level of living. Subjective/Events-last exam Wound vac is being tolerated very well with no pain. Psych evaluation completed and I spoke to professional counselor and she recommended Prozac 20mg daily and stop Wellbutrin so that was updated in her med list now and I updated her on this change and she is in agreement with the plan Potassium supplement tolerated Hgb is 9.9 on last check Weaning O2 now at 3L/min down from 4 Pet pass was successful and she smiled for the first time when she talked about Glenna her dog. White count remains normal. No major concerns Did not sleep well last night as she sometimes doesn't at home too Participating in all therapy. Check meds and labs Conferred with RN Reviewed therapy notes Review of Systems General: Fatigue Objective Exam Vital Signs Vital Signs Date Time Temp Pulse Resp B/P (MAP) Pulse Ox O2 Delivery O2 Flow Rate FiO2 12/10/18 17:52 Nasal Cannula 3.00 12/10/18 15:43 97.0 76 16 120/73 (89) 98 Capillary Refill : General Appearance: No Apparent Distress, WD/WN, Chronically ill, Obese HEENT: PERRL/EOMI, Normal ENT Inspection, Pharynx Normal, Moist Mucous Membranes Neck: Full Range of Motion, Normal Inspection, Non Tender, Supple Respiratory: Chest Non Tender, Lungs Clear, No Accessory Muscle Use, No Respiratory Distress, Decreased Breath Sounds Cardiovascular: Regular Rate, Rhythm, No Edema, No Gallop, No JVD, No Murmur Gastrointestinal: Normal Bowel Sounds, No Organomegaly, No Pulsatile Mass, S oft, Tenderness, Other (fistula) Back: Normal Inspection, No CVA Tenderness, No Vertebral Tenderness Extremity: Normal Capillary Refill, Normal Inspection, Normal Range of Motion, Non Tender, No Calf Tenderness, No Pedal Edema Neurologic/Psychiatric: Alert, Oriented x3, No Motor/Sensory Deficits, Normal Mood/Affect, Motor Weakness (lower legs 3/5) Skin: Normal Color, Warm/Dry, Other (right flank hematoma?) Lymphatic: No Adenopathy Results/Procedures Lab Patient resulted labs reviewed. FIM Transfers Therapy Code Descriptions/Definitions Functional [place] Measure: 0=Not Assessed/NA 4=Minimal Assistance 1=Total Assistance 5=Supervision or Setup 2=Maximal Assistance 6=Modified [place] 3=Moderate Assistance 7=Complete [place] Therapy Quality Codes: 6 Independent with activity with or without an assistive device 5 Patient requires set up or clean up by helper. Patient completes activity by themselves 4 Supervision or touching assist (CGA). [place] provide cues , steadying assist 3 The helper provides less than half the effort to complete the activity 2 The helper provides more than half the effort to complete the activity 1 Dependent. The helper does all the effort to complete an activity 7 Patient refused to complete or attempt activity 9 The patient did not perform the activity before the current illness or inju ry 88 Not attempted due to Medical conditions or safety concerns Transfers (B, C, W/C) (FIM): 5 Scootin Rollin Roll Left to Right (QC): 6 Supine to/from Sit: 5 (with HOB elevated, use of bedrail) Sit to/from Stand: 5 Sit to Lying (QC): 6 Sit to Stand (QC): 6 Chair/Jns-zh-Jmqyb Xfer(QC): 6 Bed to/from Chair: 6 Car Transfer (QC): 88 (Unsafe to attempt car transfer at this time. ) Gait Training Does the Patient Walk?: Yes Gait (FIM): 2 Distance (FIM): 5=635-86 ft Distance: 80 x2 Walk 10 feet (QC): 6 Walk 50 ft with 2 Turns(QC): 6 Walk 150 ft (QC): 88 Walking 10ft/uneven surface-QC: 88 Gait Level of Assist: 5 (SBA and requiring A with IV pole, wound vac, O2 tank) Gait Persons Needed: 2 (to assist with IV pole, O2 tank, wound vac, following with w/c) Gait Assistive Device: FWW Wheelchair Training Does the Pt Use a Wheelchair?: No Stair Training Stair Training: Handrails/: uses walker Stairs (FIM): 1 #of Steps: 1 1 Step (curb) (QC): 5 4 Steps (QC): 88 12 Steps (QC): 88 Stairs: Pattern: Step to Level of Assist: 5 Balance Picking up an Object (QC): 88 Mental Status/Objective Comprehension: 7 Expression: 7 Social Interaction: 7 Problem Solvin Memory: 6 ADL-Treatment Groomin Oral Hygiene (QC): 5 Bathing Location: L Arm, R Arm, L Upper Leg, R Upper Leg, L Lower Leg (including foot), R Lower Leg (including foot), Chest, Abdomen Shower/Bathe Self (QC): 3 Upper Extremity Dressin (Pt required assist to manipulate tubing. Pt able to don shirt over head and thread arms by self, set up.) Upper Body Dressing (QC): 5 Lower Extremity Dressin (Pt able to don pants by self, SBA, set up. ) Lower Body Dressing (QC): 3 On/Off Footwear (QC): 3 Toiletin (Pt required assist to cleanse self and manipulate clothing after voiding and BM. Pt able to stand using grabbar, CGA. Discussed toilet tongs with pt to cleanse buttocks by self.) Toileting Hygiene (QC): 2 Toilet/Commode Transfer: 4 (Pt required w/c and grab bar, CGA steadying. ) Toilet Transfer (QC): 4 Shower: 5 (Pt required FWW, grabbar, and shower tub bench. ) Assessment/Plan Assessment and Plan Assess & Plan/Chief Complaint Plan: IRF protocol OOB in chair most of day when not in therapy Advanced diet doing well Right flank hematoma now improved so restarted Lovenox O2 maintained and weaning well PLOF was ambulating at home Ostomy care per surgical service to help with leakage by placing wound vac Monitor labs prn Pet pass was successful Psych evaluation for depression is appreciated and I changed meds to her recs. (1) Myopathy (2) COPD (chronic obstructive pulmonary disease) Status: Chronic Qualifiers: COPD type: unspecified COPD Qualified Codes: J44.9 - Chronic obstructive pulmonary disease, unspecified (3) Hypokalemia Status: Acute (4) Diabetes mellitus, type 2 Status: Chronic Qualifiers: Diabetes mellitus detention insulin use: with detention use Diabetes mellitus complication status: with other specified complication Qualified Codes: E11.69 - Type 2 diabetes mellitus with other specified complication; Z79.4 - residential (current) use of insulin (5) Ventilator dependence Status: Resolved Resolution Date/Time: 11/25/18 @ 20:44 (6) Enterocutaneous fistula Status: Acute (7) Obesity hypoventilation syndrome Status: Chronic (8) On total parenteral nutrition (TPN) Status: Acute (9) BRAYAN treated with BiPAP Status: Chronic (10) Smoker Status: Chronic ALEIDA LICEA DO Dec 10, 2018 10:39
--- NOTE | 2018-12-10 12:03 | Progress Note ---
Subjective Date Seen by a Provider: Dec 10, 2018 Time Seen by a Provider: 11:45 Subjective/Events-last exam Patient seen with Dr. Olvera. Patient reports continues to improve but slow. No abdominal pain. No N/V. No SOB. Participating in therapy. Tolerating diet. minimal drain output Objective Exam Vital Signs Date Time Temp Pulse Resp B/P (MAP) Pulse Ox O2 Delivery O2 Flow Rate FiO2 12/10/18 07:34 95 Nasal Cannula 3.00 12/10/18 05:39 97.5 76 16 118/76 (90) 93 NIV CPAP 3.00 12/09/18 21:00 High Flow N/C 3.00 12/09/18 20:44 77 108/63 (78) 12/09/18 19:02 96 Nasal Cannula 3.00 12/09/18 17:00 98.1 77 20 113/70 (84) 99 Nasal Cannula 3.00 I & O 12/10/18 07:00 Intake Total 1970 ml Balance 1970 ml Capillary Refill : General Appearance: No Apparent Distress, WD/WN Neck: Full Range of Motion, Normal Inspection, Supple Respiratory: No Accessory Muscle Use, No Respiratory Distress, Decreased Breath Sounds Cardiovascular: Regular Rate, Rhythm, No Edema Gastrointestinal: normal bowel sounds, non tender, soft, other (Wound vac in place) Extremity: Normal Capillary Refill, Normal Inspection, Normal Range of Motion Neurologic/Psychiatric: Alert, Oriented x3 Skin: Normal Color, Warm/Dry Results Lab Laboratory Tests 12/09/18 15:19: Glucometer 194H 12/09/18 20:27: Glucometer 168H 12/10/18 05:34: Glucometer 142H 12/10/18 10:58: Glucometer 150H Assessment/Plan Assessment/Plan Assess & Plan/Chief Complaint s/p recurrent inc hernia repair with exacerbation COPD, exacerbation CHF, hypergylemia and developement enterocutaneous fistula. cont current care. will continue iv abx until fistula closed. cont octreotide as well. may restart lovenox per surg however would try different locations. trial of wound vac to fistula and open abd wound. Clinical Quality Measures DVT/VTE Risk/Contraindication: Risk Factor Score Per Nursin RFS Level Per Nursing on Admit: 4+=Very High SUSAN WIN APRN Dec 10, 2018 12:03
--- NOTE | 2018-12-10 13:10 | Physical Therapy Daily Note ---
PT Daily Note-Current Subjective Pt initially only wanted to perform supine ex, but later agreed to stand and walk. Mental Status Patient Orientation: Person, Place, Time, Situation Attachments: Oxygen, Other-See Comments, IV wound vac Transfers Therapy Code Descriptions/Definitions Functional [place] Measure: 0=Not Assessed/NA 4=Minimal Assistance 1=Total Assistance 5=Supervision or Setup 2=Maximal Assistance 6=Modified [place] 3=Moderate Assistance 7=Complete [place] Therapy Quality Codes: 6 Independent with activity with or without an assistive device 5 Patient requires set up or clean up by helper. Patient completes activity by themselves 4 Supervision or touching assist (CGA). [place] provide cues , steadying assist 3 The helper provides less than half the effort to complete the activity 2 The helper provides more than half the effort to complete the activity 1 Dependent. The helper does all the effort to complete an activity 7 Patient refused to complete or attempt activity 9 The patient did not perform the activity before the current illness or injury 88 Not attempted due to Medical conditions or safety concerns Transfers (B, C, W/C) (FIM): 3 Scootin Rollin Supine to/from Sit: 3 Sit to/from Stand: 5 Sit to Stand (QC): 5 Gait Training Does the Patient Walk?: Yes Gait (FIM): 1 Distance: 20ft x2 Gait Level of Assist: 1 Gait Persons Needed: 1 Gait Assistive Device: FWW Exercises Supine Ex: LE Protocol Supine Reps: 15 Assessment Current Status: Fair Progress Ambulated from bed to bathroom, and from bathroom to bedside chair. Good stability and good gait pattern. PT Short Term Goals Short Term Goals Time Frame: Dec 15, 2018 Transfers (B,C,W/C) (FIM): 4 Gait (FIM): 4 Distance (FIM): 3=150 ft Gait Assistive Device: FWW PT Adjunct Faculty [employer] Department Goals Custodial Goals PT Custodial Goals Time Frame: Dec 29, 2018 Transfers (B,C,W/C) (FIM): 6 Sit to Lying (QC): 6 Lying-Sitting on Side/Bed(QC): 6 Sit to Stand (QC): 6 Rollin Roll Left to Right (QC): 6 Chair/Lsx-yg-Zznhm Xfer(QC): 6 Car Transfer (QC): 6 Does the Patient Walk: Yes Gait (FIM): 6 Gait distance (FIM): 3=150 ft Walk 10 feet (QC): 6 Walk 10ft-Uneven Surface(QC): 6 Walk 50ft with 2 Turns (QC): 6 Walk 150 ft (QC): 6 Gait Assistive Device: FWW Does the Pt use WC or Scooter?: No Stairs (FIM): 5 # of Steps: 4 1 Step (curb) (QC): 6 4 Steps (QC): 6 12 Steps (QC): 9 Picking up an Object (QC): 9 PT Plan Treatment/Plan Treatment Plan: Continue Plan of Care Treatment Plan: Bed Mobility, Education, Functional Activity Juan F, Functional Strength, Group Therapy, Gait, Safety, Therapeutic Exercise, Transfers Treatment Duration: Dec 29, 2018 Frequency: At least 5 of 7 days/Wk (IRF) Estimated Hrs Per Day: 1.5 hours per day Patient and/or Family Agrees t: Yes Time/GCodes Time In: 1031 Time Out: 1049 Total Billed Treatment Time: 16 Total Billed Treatment 1, gt 16 ANMOL BAPTISTE PT Dec 10, 2018 13:10
[2018-12-10] MEDS: OCTREOTIDE INJECTION 500 MCG in NS (IVPB) 99 ML IV SCH ×2 (14:10→23:17)
[2018-12-10 15:43] VITALS: BP 120/73
[2018-12-10 21:39] VITALS: BP 118/68
[2018-12-11] MEDS: PIPERACILLIN/TAZOBACTAM (BULK) 4.5 GM in NS (IVPB) 100 ML IV SCH ×3 (01:04→21:53)
[2018-12-11 05:45] VITALS: BP 118/76
[2018-12-11] MEDS: inSUlin ASPART (NovoLOG) 1 UNIT/0.01 ML (CHARGE PER UNIT) SC SCH ×4 (06:07→20:36)
[2018-12-11] MEDS: CATHETER FLUSH 10 ML SYR IV SCH ×3 (06:07→20:38)
[2018-12-11 08:00] VITALS: BP 126/80
--- NOTE | 2018-12-11 08:00 | NUR ---
STATES AGAIN "SLEPT TERRIBLE". OFFERED SLEEPING PILLS, BUT STATES "THEY DON'T WORK GOOD FOR ME". O2 TITRATED TO 2L AT THIS TIME.
[2018-12-11] MEDS: SENNA W/DOCUSATE (SENOKOT S) TABLET PO SCH ×2 (09:00→20:45)
[2018-12-11] MEDS: RT-ADVAIR HFA 115/21 MCG PER PUFF IH SCH ×2 (09:00→19:45)
[2018-12-11] MEDS: DOCUSATE SODIUM 100 MG (COLACE) CAP PO SCH ×2 (09:00→20:45)
[2018-12-11] MEDS: NICOTINE 21 MG (NICODERM) PATCH TD SCH (10:15)
[2018-12-11] MEDS: OMEGA 3 (FISH OIL) 1000 MG CAP PO SCH (10:15)
[2018-12-11] MEDS: amLODIPine 10 MG (NORVASC) TAB PO SCH (10:15)
[2018-12-11] MEDS: FUROSEMIDE 20 MG (LASIX) TAB PO SCH (10:15)
[2018-12-11] MEDS: FLUoxetine HCL 20 MG (PROzac) CAP PO SCH (10:16)
[2018-12-11] MEDS: lisINopril 20 MG (PRINIVIL) TABLET PO SCH (10:16)
[2018-12-11] MEDS: MAGNESIUM OXIDE (MAG-OX)400 MG TAB PO SCH (10:16)
[2018-12-11] MEDS: OCTREOTIDE INJECTION 500 MCG in NS (IVPB) 99 ML IV SCH ×2 (10:16→19:04)
[2018-12-11] MEDS: meTOprolol TARTRATE 25 MG (LOPRESSOR) TABLET PO SCH ×3 (10:17→20:36)
[2018-12-11] MEDS: FAMOTIDINE 20 MG (PEPCID) TABLET PO SCH ×2 (10:17→20:36)
[2018-12-11] MEDS: VITAMIN D3 5,000 UNITS (CHOLECALCIFEROL ) CAPSULE PO SCH (10:17)
[2018-12-11] MEDS: LINAGLIPTIN (TRADJENTA) 5 MG TABLET PO SCH (10:17)
[2018-12-11] MEDS: DULoxetine 30 MG (CYMBALTA) CAP PO SCH (10:17)
[2018-12-11] MEDS: FLUCONAZOLE 200 MG/100 ML 50 ML, EMPTY IV BAG (PVC) 1 EA IV SCH ×2 (10:18)
[2018-12-11] MEDS: NICOTINE PATCH REMOVAL TP SCH (10:20)
[2018-12-11] MEDS: CATHETER FLUSH 10 ML SYR IV PRN (10:26)
[2018-12-11] MEDS: ENOXAPARIN 60 MG/0.6 ML (LOVENOX) SYR SC SCH ×2 (10:32→20:37)
--- NOTE | 2018-12-11 10:56 | Progress Note ---
Subjective Date Seen by a Provider: Dec 11, 2018 Time Seen by a Provider: 10:15 Subjective/Events-last exam Patient seen with Dr. Olvera. Patient reports doing well today. Participating in therapy and tolerating diet. Denies any pain. Does complain of numbness and tingling of the left lower extremity from below the knee to the foot which patient states has been there since the surgery, but believes this has improved some. Objective Exam Vital Signs Date Time Temp Pulse Resp B/P (MAP) Pulse Ox O2 Delivery O2 Flow Rate FiO2 12/11/18 09:00 95 Nasal Cannula 3.00 12/11/18 05:45 96.9 68 18 118/76 (90) 95 Nasal Cannula 3.00 12/10/18 21:39 79 118/68 (85) 12/10/18 21:00 High Flow N/C 3.00 12/10/18 17:52 Nasal Cannula 3.00 12/10/18 15:43 97.0 76 16 120/73 (89) 98 Nasal Cannula 3.00 I & O 12/11/18 07:00 Intake Total 2190 ml Balance 2190 ml Capillary Refill : General Appearance: No Apparent Distress, WD/WN Neck: Full Range of Motion, Non Tender, Supple Respiratory: No Accessory Muscle Use, No Respiratory Distress Cardiovascular: Regular Rate, Rhythm, No Edema Gastrointestinal: normal bowel sounds, non tender, soft, other (Wound vac in place with minimal drainage.) Extremity: Normal Capillary Refill, Normal Range of Motion, No Calf Tenderness, No Pedal Edema, Other (No redness, warmth, pain, or swelling of the left extremity.) Neurologic/Psychiatric: Alert, Oriented x3 Skin: Normal Color, Warm/Dry Results Lab Laboratory Tests 12/10/18 10:58: Glucometer 150H 12/10/18 15:41: Glucometer 214H 12/10/18 20:05: Glucometer 147H 12/11/18 05:07: Glucometer 114H Assessment/Plan Assessment/Plan Assess & Plan/Chief Complaint s/p recurrent inc hernia repair with exacerbation COPD, exacerbation CHF, hypergylemia and developement enterocutaneous fistula. cont current care. will continue iv abx until fistula closed. cont octreotide as well. may restart lovenox per surg however would try different locations. trial of wound vac to fistula and open abd wound. Clinical Quality Measures DVT/VTE Risk/Contraindication: Risk Factor Score Per Nursin RFS Level Per Nursing on Admit: 4+=Very High SUSAN WIN [employer] APPLICATIONS ANALYST Dec 11, 2018 10:56
--- NOTE | 2018-12-11 11:00 | NUR ---
PAULA DAVIS HERE TO SEE PATIENT AND INFORMED OF PATIENT'S CONTINUED COMPLAINT OF LEFT LEG (ESPECIALLY FOOT) PAIN SINCE SURGERY. STATES FOOT FEELS "NUMB WITH PINS AND NEEDLES".
--- NOTE | 2018-12-11 13:24 | PM&R Progress Note ---
Subjective HPI/CC On Admission Date Seen by Provider: Dec 11, 2018 Time Seen by Provider: 12:15 Chief complaint: Disuse myopathy. HPI: This is a 63yoWF [facility] Pt known to me from last week hospital admission when she required intubation for acute on chronic respiratory failure with obesity-hypoventilation syndrome following hernia repair. She was able to be extubated without complication and continued to be on high flow oxygen and had suffered these issues following an uncomplicated ventral hernia surgery. Due to her morbid obesity and likely chronic CO2 retention she went into respiratory failure, had significant difficulties with multisystem organ dysfunction and was eventually able to move down to fourth floor but repeat CT scam obtained due to elevated white count per Dr. Olvera showed some sort of fistula. 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 She remained on TPN, clear liquid diet only and IV antibiotics to help heal that area. At this current time, the Pt is denying any pain and is getting around better since she was living independently and ambulating at home. The goal is to return to near prior level of function and be able to return back to independent level of living. Subjective/Events-last exam Patient had 4 loose stools last night but no significant diarrhea Weaning oxygen down to 2 L and that is her baseline at home which is a great accomplishment Insomnia issues but she gets like this at home and declines any sleeping pills since they do not really work Left sided radiculopathy in her leg is still causing her problems and Dr. Olvera evaluated that and will evaluate to see if he has any recommendations Check meds and labs Conferred with RN Reviewed therapy notes Overall improving status Maintain on IV antibiotics Review of Systems General: Fatigue Pulmonary: Dyspnea Objective Exam Vital Signs Vital Signs Date Time Temp Pulse Resp B/P (MAP) Pulse Ox O2 Delivery O2 Flow Rate FiO2 12/11/18 19:45 94 Nasal Cannula 3.00 12/11/18 16:18 98.5 71 16 126/79 (95) Capillary Refill : General Appearance: No Apparent Distress, WD/WN HEENT: PERRL/EOMI, Normal ENT Inspection, Pharynx Normal, Moist Mucous Membranes Neck: Full Range of Motion, Non Tender, Supple Respiratory: No Accessory Muscle Use, No Respiratory Distress Cardiovascular: Regular Rate, Rhythm, No Edema Gastrointestinal: Normal Bowel Sounds, No Organomegaly, No Pulsatile Mass, Soft, Tenderness, Other (fistula) Back: Normal Inspection, No CVA Tenderness, No Vertebral Tenderness Extremity: Normal Capillary Refill, Normal Range of Motion, No Calf Tenderness, No Pedal Edema, Other (No redness, warmth, pain, or swelling of the left extremity.) Neurologic/Psychiatric: Alert, Oriented x3 Skin: Normal Color, Warm/Dry Lymphatic: No Adenopathy Results/Procedures Lab Patient resulted labs reviewed. FIM Transfers Therapy Code Descriptions/Definitions Functional [place] Measure: 0=Not Assessed/NA 4=Minimal Assistance 1=Total Assistance 5=Supervision or Setup 2=Maximal Assistance 6=Modified [place] 3=Moderate Assistance 7=Complete [place] Therapy Quality Codes: 6 Independent with activity with or without an assistive device 5 Patient requires set up or clean up by helper. Patient completes activity by themselves 4 Supervision or touching assist (CGA). [place] provide cues , steadying assist 3 The helper provides less than half the effort to complete the activity 2 The helper provides more than half the effort to complete the activity 1 Dependent. The helper does all the effort to complete an activity 7 Patient refused to complete or attempt activity 9 The patient did not perform the activity before the current illness or injury 88 Not attempted due to Medical conditions or safety concerns Transfers (B, C, W/C) (FIM): 3 Scootin Rollin Roll Left to Right (QC): 6 Supine to/from Sit: 3 Sit to/from Stand: 5 Sit to Lying (QC): 6 Sit to Stand (QC): 5 Chair/Uzh-rd-Oyktq Xfer(QC): 6 Bed to/from Chair: 6 Car Transfer (QC): 88 (Unsafe to attempt car transfer at this time. ) Gait Training Does the Patient Walk?: Yes Gait (FIM): 1 Distance (FIM): 6=262-03 ft Distance: 20ft x2 Walk 10 feet (QC): 6 Walk 50 ft with 2 Turns(QC): 6 Walk 150 ft (QC): 88 Walking 10ft/uneven surface-QC: 88 Gait Level of Assist: 1 Gait Persons Needed: 1 Gait Assistive Device: FWW Wheelchair Training Does the Pt Use a Wheelchair?: No Stair Training Stair Training: Handrails/: uses walker Stairs (FIM): 1 #of Steps: 1 1 Step (curb) (QC): 5 4 Steps (QC): 88 12 Steps (QC): 88 Stairs: Pattern: Step to Level of Assist: 5 Balance Picking up an Object (QC): 88 Mental Status/Objective Comprehension: 7 Expression: 7 Social Interaction: 7 Problem Solvin Memory: 6 ADL-Treatment Groomin Oral Hygiene (QC): 5 Bathing Location: L Arm, R Arm, L Upper Leg, R Upper Leg, L Lower Leg (including foot), R Lower Leg (including foot), Chest, Abdomen Shower/Bathe Self (QC): 3 Upper Extremity Dressin (Pt required assist to manipulate tubing. Pt able to don shirt over head and thread arms by self, set up.) Upper Body Dressing (QC): 5 Lower Extremity Dressin (Pt able to don pants by self, SBA, set up. ) Lower Body Dressing (QC): 3 On/Off Footwear (QC): 3 Toiletin (Pt required assist to cleanse self and manipulate clothing after voiding and BM. Pt able to stand using grabbar, CGA. Discussed toilet tongs with pt to cleanse buttocks by self.) Toileting Hygiene (QC): 2 Toilet/Commode Transfer: 4 (Pt required w/c and grab bar, CGA steadying. ) Toilet Transfer (QC): 4 Shower: 5 (Pt required FWW, grabbar, and shower tub bench. ) Assessment/Plan Assessment and Plan Assess & Plan/Chief Complaint Plan: IRF protocol OOB in chair most of day when not in therapy Advanced diet doing well Right flank hematoma now resolved O2 maintained and weaning well now at 2L/min PLOF was ambulating at home Ostomy care per surgical service to help with leakage by placing wound vac which is tolerated well Left leg radiculopathy evaluated Monitor labs prn Pet pass was successful Psych evaluation for depression is appreciated and I changed meds to her recs. (1) Myopathy (2) COPD (chronic obstructive pulmonary disease) Status: Chronic Qualifiers: COPD type: unspecified COPD Qualified Codes: J44.9 - Chronic obstructive pulmonary disease, unspecified (3) Hypokalemia Status: Acute (4) Diabetes mellitus, type 2 Status: Chronic Qualifiers: Diabetes mellitus assisted insulin use: with assisted use Diabetes mellitus complication status: with other specified complication Qualified Codes: E11.69 - Type 2 diabetes mellitus with other specified complication; Z79.4 - correction (current) use of insulin (5) Ventilator dependence Status: Resolved Resolution Date/Time: 11/25/18 @ 20:44 (6) Enterocutaneous fistula Status: Acute (7) Obesity hypoventilation syndrome Status: Chronic (8) On total parenteral nutrition (TPN) Status: Acute (9) BRAYAN treated with BiPAP Status: Chronic (10) Smoker Status: Chronic ALEIDA LICEA DO Dec 11, 2018 13:24
[2018-12-11 16:18] VITALS: BP 126/79
--- NOTE | 2018-12-11 18:00 | NUR ---
NOTED THAT LIDIA HAD BEEN DC'D ON JUN BY PHARMACY. CHECKED WITH DR. ELIZABETH AND HE SAID TO RESTART IT. PATIENT REMAINS ON O2 AT 2L AND O2 SAT 96%. DENIES SOB.
[2018-12-11] MEDS ORDERED: PIPERACILLIN/TAZO 4.5 GM VIAL (ZOSYN) IV ONE (19:41)
[2018-12-11 20:40] VITALS: BP 121/74
[2018-12-11] MEDS ORDERED: NS (IVPB) 0 ML ONE (21:22)
[2018-12-11] MEDS ORDERED: NS (IVPB) 200 ML ONE (21:28)
[2018-12-12] MEDS: OCTREOTIDE INJECTION 500 MCG in NS (IVPB) 99 ML IV SCH ×2 (04:11→15:52)
[2018-12-12] MEDS: CATHETER FLUSH 10 ML SYR IV SCH ×3 (04:48→20:40)
[2018-12-12] MEDS: PIPERACILLIN/TAZOBACTAM (BULK) 4.5 GM in NS (IVPB) 100 ML IV SCH ×3 (04:48→18:49)
[2018-12-12] MEDS: inSUlin ASPART (NovoLOG) 1 UNIT/0.01 ML (CHARGE PER UNIT) SC SCH ×4 (04:49→21:03)
[2018-12-12 05:40] VITALS: BP 105/69
[2018-12-12] MEDS: RT-ADVAIR HFA 115/21 MCG PER PUFF IH SCH ×2 (07:48→19:14)
--- NOTE | 2018-12-12 07:53 | NUR ---
o2 sat was 96% on 3 L so RT decreased o2 to 2 L NC; home cpap was already on 2 L
[2018-12-12 07:59] LABS: BASOPHILS % (AUTO) 1 % (0-10); EOSINOPHILS # (AUTO) 0.2 10^3/uL (0.0-0.3); EOSINOPHILS % (AUTO) 3 % (0-10); HEMATOCRIT 34 % (35-52); HEMOGLOBIN 10.3 G/DL (11.5-16.0); LYMPHOCYTES # (AUTO) 1.5 X 10^3 (1.0-4.0); LYMPHOCYTES % (AUTO) 28 % (12-44); MEAN CORPUSCULAR HEMOGLOBIN 28 PG (25-34); MEAN CORPUSCULAR HGB CONC 31 G/DL (32-36); MEAN CORPUSCULAR VOLUME 92 FL (80-99); MEAN PLATELET VOLUME 10.3 FL (7.4-10.4); MONOCYTES # (AUTO) 0.7 X 10^3 (0.0-1.0); MONOCYTES % (AUTO) 14 % (0-12); NEUTROPHILS # (AUTO) 2.8 X 10^3 (1.8-7.8); NEUTROPHILS % (AUTO) 54 % (42-75); PLATELET COUNT 201 10^3/uL (130-400); RED CELL DISTRIBUTION WIDTH 16.1 % (10.0-14.5); WHITE BLOOD COUNT 5.1 10^3/uL (4.3-11.0)
[2018-12-12 08:17] LABS: ALANINE AMINOTRANSFERASE 15 U/L (0-55); ALBUMIN 3.3 GM/DL (3.2-4.5); ALKALINE PHOSPHATASE 68 U/L (40-136); BILIRUBIN,TOTAL 0.4 MG/DL (0.1-1.0); BUN/CREATININE RATIO 13; CALCIUM 8.8 MG/DL (8.5-10.1); CARBON DIOXIDE 30 MMOL/L (21-32); CHLORIDE 101 MMOL/L (98-107); CREATININE SERUM 0.85 MG/DL (0.60-1.30); GFR ESTIMATED > 60; GLUCOSE 130 MG/DL (70-105); POTASSIUM 3.5 MMOL/L (3.6-5.0); SODIUM 141 MMOL/L (135-145); TOTAL PROTEIN 7.3 GM/DL (6.4-8.2)
--- NOTE | 2018-12-12 09:58 | Occupational Ther Daily Note ---
OT Current Status-Daily Note Subjective Pt sleeping in bed. Pt woke to IV alarm going off. Pt agrees to therapy. Pt c/o L foot keeping her up at night. Mental Status/Objective Patient Orientation: Person, Place, Time, Situation Therapy Code Descriptions/Definitions Functional [place] Measure: 0=Not Assessed/NA 4=Minimal Assistance 1=Total Assistance 5=Supervision or Setup 2=Maximal Assistance 6=Modified [place] 3=Moderate Assistance 7=Complete [place] Attachments: Central Line, Drains (wound vac), Oxygen ADL-Treatment Will try to coordinate with wound care for shower this week. Pt requested to use toilet x2. SBA for supine to EOB. Close SBA to ambulate to bathroom and assist to manipulate tubing and IV pole. Pt able to transfer to toilet using FWW and grabbars, SBA. SBA to manipulate clothing using FWW and grabbars and pt able to complete toileting sitting on toilet, assist to make sure pt was clean. Took BSC off of toilet so pt would be able to use UE's to cleanse self. Pt able to don pants and briefs by self using FWW for support after set up, SBA. Pt then ambulated back to room and sat in w/c. After therapy, pt sitting in w/c with call light/phone in reach. All needs met in room. Therapy Code Descriptions/Definitions Functional [place] Measure: 0=Not Assessed/NA 4=Minimal Assistance 1=Total Assistance 5=Supervision or Setup 2=Maximal Assistance 6=Modified [place] 3=Moderate Assistance 7=Complete [place] Therapy Quality Codes: 6 Independent with activity with or without an assistive device 5 Patient requires set up or clean up by helper. Patient completes activity by themselves 4 Supervision or touching assist (CGA). [place] provide cues , steadying ass ist 3 The helper provides less than half the effort to complete the activity 2 The helper provides more than half the effort to complete the activity 1 Dependent. The helper does all the effort to complete an activity 7 Patient refused to complete or attempt activity 9 The patient did not perform the activity before the current illness or injury 88 Not attempted due to Medical conditions or safety concerns Upper Body (FIM): 5 (Pt completed with only assist to manipulate IV tubing. Set up only) Upper Body Dressing (QC): 4 Lower Body Dressing (FIM): 5 (SBA after set up. Using FWW in standing for support when hiking pants over hips.) Lower Body Dressing (QC): 4 Toileting (FIM): 4 Toileting Hygiene (QC): 4 Transfers (B, C, W/C) (FIM): 5 Toilet/Commode Transfer (FIM): 5 Toilet Transfer (QC): 4 OT Short Term Goals Short Term Goals Time Frame: Dec 08, 2018 Eating(FIM): 5 Grooming(FIM): 5 Bathing(FIM): 4 Upper Body Dressing(FIM): 4 Lower Body Dressing(FIM): 3 Toileting(FIM): 3 Transfers (B,C,W/C) (FIM): 4 Toilet/Commode Transfer(FIM): 4 Shower Transfer(FIM): 4 Additional Short Term Goals: 1-Demonstrate ADL Tasks, 2-Verbalize Understanding, 3-ImproveStrength/Juan F 1=Demonstrate adherence to instructed precautions during ADL tasks. 2=Patient will verbalize/demonstrate understanding of assistive dev ices/modifications for ADL. 3=Patient will improve strength/tolerance for activity to enable patient to perform ADL's. OT Welfare Visitor Goals Welfare Visitor Goals Time Frame: Dec 22, 2018 Eating (FIM): 6 Eating (QC): 6 Groomin Oral Hygiene (QC): 6 Bathing(FIM): 5 Shower/Bathe Self (QC): 4 Upper Body Dressing(FIM): 5 Upper Body Dressing (QC): 4 Lower Body Dressing(FIM): 5 Lower Body Dressing (QC): 4 On/Off Footwear (QC): 4 Toileting(FIM): 6 Toileting Hygiene (QC): 6 Transfers (B,C,W/C) (FIM): 6 Toilet/Commode Transfer(FIM): 6 Toilet/Commode Transfer (QC): 6 Shower Transfer(FIM): 5 Additional Goals: 1-Demonstrate ADL Tasks, 2-Verbalize Understanding, 3- ImproveStrength/Juan F 1=Demonstrate adherence to instructed precautions during ADL tasks. 2=Patient will verbalize/demonstrate understanding of assistive devices/modifications for ADL. 3=Patient will improve strength/tolerance for activity to enable patient to perform ADL's. OT Education/Plan Problem List/Assessment Assessment: Decreased Activ Tolerance, Decreased UE Strength, Impaired Self- Care Skills Discharge Recommendations Plan/Recommendations: Continue POC Treatment Plan/Plan of Care Patient would benefit from OT for education, treatment and training to promote independence in ADL's, mobility, safety and/or upper extremity function for ADL's. Plan of Care: ADL Retraining, Functional Mobility, Group Exercise/Act as Ind, UE Funct Exercise/Act Treatment Duration: Dec 22, 2018 Frequency: At least 5 of 7 days/Wk (IRF) Estimated Hrs Per Day: 1.5 hours per day Agreement: Yes Rehab Potential: Good Time/GCodes Start Time: 09:00 Stop Time: 10:00 Total Time Billed (hr/min): 60 Billed Treatment Time 1 visit-ADL 4 (60 min) CEDRIC DURANT Dec 12, 2018 09:58
--- NOTE | 2018-12-12 10:01 | PM&R Progress Note ---
Subjective HPI/CC On Admission Date Seen by Provider: Dec 12, 2018 Time Seen by Provider: 10:30 Chief complaint: Disuse myopathy. HPI: This is a 63yoWF [facility] Pt known to me from last week hospital admission when she required intubation for acute on chronic respiratory failure with obesity-hypoventilation syndrome following hernia repair. She was able to be extubated without complication and continued to be on high flow oxygen and had suffered these issues following an uncomplicated ventral hernia surgery. Due to her morbid obesity and likely chronic CO2 retention she went into respiratory failure, had significant difficulties with multisystem organ dysfunction and was eventually able to move down to fourth floor but repeat CT scam obtained due to elevated white count per Dr. Olvera showed some sort of fistula. 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 She remained on TPN, clear liquid diet only and IV antibiotics to help heal that area. At this current time, the Pt is denying any pain and is getting around better since she was living independently and ambulating at home. The goal is to return to near prior level of function and be able to return back to independent level of living. Subjective/Events-last exam Patient having regular BM's Weaning oxygen down to 2 L and that is her baseline at home which is a great accomplishment K+ 3.5 will start PO supplement Insomnia continues to be an issue Left sided radiculopathy in her leg was discussed and she has had a lot of spine injuries in the past and knows she has DJD so we talked about that a lot today Check meds and labs Conferred with RN Reviewed therapy notes Overall improving status Maintain on IV antibiotics Review of Systems General: Fatigue Pulmonary: Dyspnea Objective Exam Vital Signs Vital Signs Date Time Temp Pulse Resp B/P (MAP) Pulse Ox O2 Delivery O2 Flow Rate FiO2 12/12/18 08:00 High Flow N/C 2.00 12/12/18 07:48 96 12/12/18 05:40 97.2 72 20 105/69 (81) Capillary Refill : General Appearance: No Apparent Distress, WD/WN HEENT: PERRL/EOMI, Normal ENT Inspection, Pharynx Normal, Moist Mucous Membranes Neck: Full Range of Motion, Non Tender, Supple Respiratory: No Accessory Muscle Use, No Respiratory Distress Cardiovascular: Regular Rate, Rhythm, No Edema Gastrointestinal: Normal Bowel Sounds, No Organomegaly, No Pulsatile Mass, Soft, Tenderness, Other (fistula) Back: Normal Inspection, No CVA Tenderness, No Vertebral Tenderness Extremity: Normal Capillary Refill, Normal Range of Motion, No Calf Tenderness, No Pedal Edema, Other (No redness, warmth, pain, or swelling of the left extremity.) Neurologic/Psychiatric: Alert, Oriented x3 Skin: Normal Color, Warm/Dry Lymphatic: No Adenopathy Results/Procedures Lab Laboratory Tests 12/12/18 06:42 Patient resulted labs reviewed. FIM Transfers Therapy Code Descriptions/Definitions Functional [place] Measure: 0=Not Assessed/NA 4=Minimal Assistance 1=Total Assistance 5=Supervision or Setup 2=Maximal Assistance 6=Modified [place] 3=Moderate Assistance 7=Complete [place] Therapy Quality Codes: 6 Independent with activity with or without an assistive device 5 Patient requires set up or clean up by helper. Patient completes activity by themselves 4 Supervision or touching assist (CGA). [place] provide cues , steadying assist 3 The helper provides less than half the effort to complete the activity 2 The helper provides more than half the effort to complete the activity 1 Dependent. The helper does all the effort to complete an activity 7 Patient refused to complete or attempt activity 9 The patient did not perform the activity before the current illness or injury 88 Not attempted due to Medical conditions or safety concerns Transfers (B, C, W/C) (FIM): 5 Scootin Rollin Roll Left to Right (QC): 6 Supine to/from Sit: 3 Sit to/from Stand: 5 Sit to Lying (QC): 6 Sit to Stand (QC): 5 Chair/Rtn-zk-Ngvau Xfer(QC): 6 Bed to/from Chair: 6 Car Transfer (QC): 88 (Unsafe to attempt car transfer at this time. ) Gait Training Does the Patient Walk?: Yes Gait (FIM): 1 Distance (FIM): 1=889-89 ft Distance: 20ft x2 Walk 10 feet (QC): 6 Walk 50 ft with 2 Turns(QC): 6 Walk 150 ft (QC): 88 Walking 10ft/uneven surface-QC: 88 Gait Level of Assist: 1 Gait Persons Needed: 1 Gait Assistive Device: FWW Wheelchair Training Does the Pt Use a Wheelchair?: No Stair Training Stair Training: Handrails/: uses walker Stairs (FIM): 1 #of Steps: 1 1 Step (curb) (QC): 5 4 Steps (QC): 88 12 Steps (QC): 88 Stairs: Pattern: Step to Level of Assist: 5 Balance Picking up an Object (QC): 88 Mental Status/Objective Comprehension: 7 Expression: 7 Social Interaction: 7 Problem Solvin Memory: 6 ADL-Treatment Groomin Oral Hygiene (QC): 5 Bathing Location: L Arm, R Arm, L Upper Leg, R Upper Leg, L Lower Leg (i ncluding foot), R Lower Leg (including foot), Chest, Abdomen Shower/Bathe Self (QC): 3 Upper Extremity Dressin (Pt completed with only assist to manipulate IV tubing. Set up only) Upper Body Dressing (QC): 4 Lower Extremity Dressin (SBA after set up. Using FWW in standing for support when hiking pants over hips.) Lower Body Dressing (QC): 4 On/Off Footwear (QC): 3 Toiletin Toileting Hygiene (QC): 4 Toilet/Commode Transfer: 5 Toilet Transfer (QC): 4 Shower: 5 (Pt required FWW, grabbar, and shower tub bench. ) Assessment/Plan Assessment and Plan Assess & Plan/Chief Complaint Plan: IRF protocol OOB in chair most of day when not in therapy Advanced diet doing well Right flank hematoma now resolved Lovenox maintained O2 maintained and weaning well now at 2L/min PLOF was ambulating at home Ostomy care per surgical service to help with leakage by placing wound vac which is tolerated well Left leg radiculopathy evaluated Monitor labs prn Pet pass was successful Psych evaluation for depression is appreciated and I changed meds to her recs. Left leg radiculopathy managed conservatively Replace potassium PO (1) Myopathy (2) COPD (chronic obstructive pulmonary disease) Status: Chronic Qualifiers: COPD type: unspecified COPD Qualified Codes: J44.9 - Chronic obstructive pulmonary disease, unspecified (3) Hypokalemia Status: Acute (4) Diabetes mellitus, type 2 Status: Chronic Qualifiers: Diabetes mellitus skilled nursing insulin use: with skilled nursing use Diabetes mellitus complication status: with other specified complication Qualified Codes: E11.69 - Type 2 diabetes mellitus with other specified complication; Z79.4 - senior care (current) use of insulin (5) Ventilator dependence Status: Resolved Resolution Date/Time: 11/25/18 @ 20:44 (6) Enterocutaneous fistula Status: Acute (7) Obesity hypoventilation syndrome Status: Chronic (8) On total parenteral nutrition (TPN) Status: Acute (9) BRAYAN treated with BiPAP Status: Chronic (10) Smoker Status: Chronic ALEIDA LICEA DO Dec 12, 2018 10:01
--- NOTE | 2018-12-12 10:07 | Physical Therapy Daily Note ---
PT Daily Note-Current Subjective Pt agreeable to PT session this am. Pt reports no new c/o or concerns at this time Pain Numeric Pain Scale: 8 Comment: L foot, requested pain med from nurse at beginning of session Appearance Pt sitting up in w/c awake and alert upon arrival. At end of session, pt sitting in w/c, per pt request, call light, phone and bedside table within reach, Nurse present Mental Status Patient Orientation: Person, Place, Time, Eyes Open, Situation Attachments: Saline Lock, Oxygen (2L O2/NC), Drains wound vac Transfers Therapy Code Descriptions/Definitions Functional [place] Measure: 0=Not Assessed/NA 4=Minimal Assistance 1=Total Assistance 5=Supervision or Setup 2=Maximal Assistance 6=Modified [place] 3=Moderate Assistance 7=Complete [place] Therapy Quality Codes: 6 Independent with activity with or without an assistive device 5 Patient requires set up or clean up by helper. Patient completes activity by themselves 4 Supervision or touching assist (CGA). [place] provide cues , steadying assist 3 The helper provides less than half the effort to complete the activity 2 The helper provides more than half the effort to complete the activity 1 Dependent. The helper does all the effort to complete an activity 7 Patient refused to complete or attempt activity 9 The patient did not perform the activity before the current illness or injury 88 Not attempted due to Medical conditions or safety concerns Transfers (B, C, W/C) (FIM): 5 Sit to/from Stand: 5 (requiring skilled verb inst for hand placement and technique at times during sit to and from stand transfers) Gait Training Does the Patient Walk?: Yes Gait (FIM): 2 Distance (FIM): 3=211-83 ft Distance: 100 x2, 50 Gait Level of Assist: 5 (no LOB or unsteadiness) Gait Persons Needed: 2 (2nd person A only required to assist with ancillary equipment (Oxygen tank, IV pole, wound vac and following with w/c)) Gait Assistive Device: FWW heavily relies on walker at time, fear of not having w/c close, lateral sway, shuffling gait with decreased step length and height, decreased heel strike and toe off, pain and pins and needles feelings decrease with gait Exercises Seated Therapy Exercises: Ankle pumps, Sit to stand, Long arc quads, Chair press-ups, Hip flexion, Hamstring Curls, Hip abd/add Seated Reps: 20 Treatments transfers, gait, safety, education, functional mobility, strength, balance, activity tolerance Assessment Current Status: Good Progress PT Short Term Goals Short Term Goals Time Frame: Dec 15, 2018 Transfers (B,C,W/C) (FIM): 4 Gait (FIM): 4 Distance (FIM): 3=150 ft Gait Assistive Device: FWW PT Mcc Goals Mcc Goals PT Mcc Goals Time Frame: Dec 29, 2018 Transfers (B,C,W/C) (FIM): 6 Sit to Lying (QC): 6 Lying-Sitting on Side/Bed(QC): 6 Sit to Stand (QC): 6 Rollin Roll Left to Right (QC): 6 Chair/Ntt-gh-Qtbef Xfer(QC): 6 Car Transfer (QC): 6 Does the Patient Walk: Yes Gait (FIM): 6 Gait distance (FIM): 3=150 ft Walk 10 feet (QC): 6 Walk 10ft-Uneven Surface(QC): 6 Walk 50ft with 2 Turns (QC): 6 Walk 150 ft (QC): 6 Gait Assistive Device: FWW Does the Pt use WC or Scooter?: No Stairs (FIM): 5 # of Steps: 4 1 Step (curb) (QC): 6 4 Steps (QC): 6 12 Steps (QC): 9 Picking up an Object (QC): 9 PT Plan Treatment/Plan Treatment Plan: Continue Plan of Care Treatment Plan: Bed Mobility, Education, Functional Activity Juan F, Functional Strength, Group Therapy, Gait, Safety, Therapeutic Exercise, Transfers Treatment Duration: Dec 29, 2018 Frequency: At least 5 of 7 days/Wk (IRF) Estimated Hrs Per Day: 1.5 hours per day Patient and/or Family Agrees t: Yes Safety Risks/Education Patient Education: Gait Training, Transfer Techniques, Safety Issues Teaching Recipient: Patient Teaching Methods: Demonstration, Discussion Response to Teaching: Verbalize Understanding, Return Demonstration Time/GCodes Time In: 10 Time Out: 1045 Total Billed Treatment Time: 45 Total Billed Treatment 1 visit, GT x25 min, EX x 20 min GLADIS SINCLAIR PTA Dec 12, 2018 10:07
[2018-12-12] MEDS: MAGNESIUM OXIDE (MAG-OX)400 MG TAB PO SCH (10:30)
[2018-12-12] MEDS: FUROSEMIDE 20 MG (LASIX) TAB PO SCH (10:31)
[2018-12-12] MEDS: DULoxetine 30 MG (CYMBALTA) CAP PO SCH (10:31)
[2018-12-12] MEDS: FLUoxetine HCL 20 MG (PROzac) CAP PO SCH (10:31)
[2018-12-12] MEDS: OMEGA 3 (FISH OIL) 1000 MG CAP PO SCH (10:31)
[2018-12-12] MEDS: lisINopril 20 MG (PRINIVIL) TABLET PO SCH (10:31)
[2018-12-12] MEDS: DOCUSATE SODIUM 100 MG (COLACE) CAP PO SCH ×3 (10:31→20:38)
[2018-12-12] MEDS: VITAMIN D3 5,000 UNITS (CHOLECALCIFEROL ) CAPSULE PO SCH (10:31)
[2018-12-12] MEDS: meTOprolol TARTRATE 25 MG (LOPRESSOR) TABLET PO SCH ×3 (10:31→20:40)
[2018-12-12] MEDS: amLODIPine 10 MG (NORVASC) TAB PO SCH (10:32)
[2018-12-12] MEDS: FAMOTIDINE 20 MG (PEPCID) TABLET PO SCH ×2 (10:32→20:40)
[2018-12-12] MEDS: LINAGLIPTIN (TRADJENTA) 5 MG TABLET PO SCH (10:32)
[2018-12-12] MEDS: SENNA W/DOCUSATE (SENOKOT S) TABLET PO SCH ×3 (10:32→20:38)
--- NOTE | 2018-12-12 10:32 | Speech Therapy Daily Note ---
Speech Daily Progress Note Subjective Date Seen by Provider: Dec 12, 2018 Time Seen by Provider: 00:30 The patient states she continues to feel better every day. Objective The patient finished eating her morning meal with utilization of compensatory strategies as trained at 90% with minimal cues. Assessment Assessment Current Status: Good Progress Treatment Plan Continue Plan of Care Communication Comprehension: 7 Expression: 7 Social Cognition Social Interaction: 7 Problem Solvin Memory: 6 Speech Short Term Goals Short Term Goals Short Term Goals 1) The patient will tolerate least restrictive diet level without s/s of aspiration at 90% or greater. 2) The patient will utilize compensatory strategies as trained for safe oral intake at 90% or greater given minimal verbal cues. Speech Machine Milker Goals Nursing Home Goals The patient will maintain adequate nutrition/hydration via safe effective swallow function. Speech-Plan Patient/Family Goals Patient/Family Goals: The patient is planning on moving in to assisted living post rehab. Treatment Plan Speech Therapy Treatment Plan: Continue Plan of Care The patient continues to progress well. Treatment Duration: Dec 16, 2018 Frequency: 5 times per week Estimated Hrs Per Day: .25 hour per day Rehab Potential: Good Barriers to Learning: Patient has a complex medical status. Pt/Family Agrees to Plan: Yes Safety Risks/Education Teaching Recipient: Patient Teaching Methods: Demonstration, Discussion Response to Teaching: Verbalize Understanding, Return Demonstration Education Topics Provided: Continued safety with all oral intake. Time Speech Therapy Time In: 08:00 Speech Therapy Time Out: 08:30 Total Billed Time: 30 Billed Treatment Time 1, ANTHONY Walton Dec 12, 2018 10:32
[2018-12-12] MEDS: NICOTINE 21 MG (NICODERM) PATCH TD SCH (10:33)
[2018-12-12] MEDS: ENOXAPARIN 60 MG/0.6 ML (LOVENOX) SYR SC SCH ×2 (10:33→21:00)
[2018-12-12] MEDS: FLUCONAZOLE 200 MG/100 ML 50 ML, EMPTY IV BAG (PVC) 1 EA IV SCH ×2 (10:33)
[2018-12-12] MEDS: NICOTINE PATCH REMOVAL TP SCH (10:34)
--- NOTE | 2018-12-12 10:55 | Progress Note ---
Subjective Date Seen by a Provider: Dec 12, 2018 Time Seen by a Provider: 10:00 Subjective/Events-last exam Patient seen with Dr. Olvera. Patient reports doing well today. Denies any complaints today. Eating and drinking well. Participating in therapy. Objective Exam Vital Signs Date Time Temp Pulse Resp B/P (MAP) Pulse Ox O2 Delivery O2 Flow Rate FiO2 12/12/18 07:48 96 Nasal Cannula 3.00 12/12/18 05:40 97.2 72 20 105/69 (81) 96 Nasal Cannula 2.00 12/11/18 22:00 High Flow N/C 2.00 12/11/18 20:40 84 121/74 (90) 95 Nasal Cannula 2.00 12/11/18 19:45 94 Nasal Cannula 3.00 12/11/18 18:00 96 Nasal Cannula 2.00 12/11/18 16:18 98.5 71 16 126/79 (95) 96 Nasal Cannula 3.00 I & O 12/12/18 07:00 Intake Total 2380 ml Balance 2380 ml Capillary Refill : General Appearance: No Apparent Distress, WD/WN Neck: Full Range of Motion, Normal Inspection, Supple Respiratory: Normal Breath Sounds, No Accessory Muscle Use, No Respiratory Distress Cardiovascular: Regular Rate, Rhythm, No Edema Gastrointestinal: normal bowel sounds, non tender, soft, other (Wound Vac in place. Having brown drainage in wound vac container.) Extremity: Normal Capillary Refill, Normal Inspection, Normal Range of Motion Neurologic/Psychiatric: Alert, Oriented x3 Skin: Normal Color, Warm/Dry, Other (Abdominal wound C/D/I with wound vac in place.) Results Lab Laboratory Tests 12/11/18 11:15: Glucometer 232H 12/11/18 16:17: Glucometer 109 12/11/18 20:13: Glucometer 192H 12/12/18 04:48: Glucometer 130H 12/12/18 06:42: White Blood Count 5.1, Red Blood Count 3.68L, Hemoglobin 10.3L, Hematocrit 34L, Mean Corpuscular Volume 92, Mean Corpuscular Hemoglobin 28, Mean Corpuscular Hemoglobin Concent 31L, Red Cell Distribution Width 16.1H, Platelet Count 201, Mean Platelet Volume 10.3, Neutrophils (%) (Auto) 54, Lymphocytes (%) (Auto) 28, Monocytes (%) (Auto) 14H, Eosinophils (%) (Auto) 3, Basophils (%) (Auto) 1, Neutrophils # (Auto) 2.8, Lymphocytes # (Auto) 1.5, Monocytes # (Auto) 0.7, Eosinophils # (Auto) 0.2, Basophils # (Auto) 0.0, Sodium Level 141, Potassium Level 3.5L, Chloride Level 101, Carbon Dioxide Level 30, Anion Gap 10, Blood Urea Nitrogen 11, Creatinine 0.85, Estimat Glomerular Filtration Rate > 60, BUN/Creatinine Ratio 13, Glucose Level 130H, Calcium Level 8.8, Corrected Calcium 9.4, Total Bilirubin 0.4, Aspartate Amino Transf (AST/SGOT) 18, Alanine Aminotransferase (ALT/SGPT) 15, Alkaline Phosphatase 68, Total Protein 7.3, Albumin 3.3 Assessment/Plan Assessment/Plan Assess & Plan/Chief Complaint s/p recurrent inc hernia repair with exacerbation COPD, exacerbation CHF, hypergylemia and developement enterocutaneous fistula. cont current care. will continue iv abx until fistula closed. cont octreotide as well. may restart lovenox per surg however would try different locations. trial of wound vac to fistula and open abd wound. Clinical Quality Measures DVT/VTE Risk/Contraindication: Risk Factor Score Per Nursin RFS Level Per Nursing on Admit: 4+=Very High SUSAN WIN NEUROLOGY STROKE PHYSICIAN Dec 12, 2018 10:55
[2018-12-12] MEDS: KCL 10 MEQ TAB (MICRO K) PO SCH ×2 (14:16→20:39)
--- NOTE | 2018-12-12 14:18 | Therapy Group Daily Note ---
Therapy Daily Group Note Patient Education Topic Exercises Exercises LE Seated Exercise, UE Exercise Session Ratio (pt:therapist): 3:1 Goal of Session: Education on ARU Expectations, UE/LE Strengthing Goal Met for this Session: Yes Pt Benefit of Group: Contributions to Others, F/U Use of Strategies @Home, Increased Functional Strength, Improved Cognition, Recognition of Peers, Socialization Other/Notes Pt transported via w/c to [facility] for OT/PT group. Group consisted of introductions (name, place living, first job), socialization, description/expectations of ARU, benefits of exercise and pt lead exercises. Pt able to introduced self appropriately and actively listened to peers. Pt acknowledged understanding of educational topics by leading own exercise and giving personal experiences. Pt tolerated exercises well and actively p articipated when other pt's led exercises. Pt acknowledged understanding of ARU description by affirmative gestures. After therapy, pt requested to stay in w/c in room. Call light/phone in reach. All needs met in room. Start Time: 12:40 Stop Time: 13:50 Total Billed Treatment Time: 70 Total Billed Treatment 1-CEDRIC ESCOBEDO Dec 12, 2018 14:18
[2018-12-12 17:00] VITALS: BP 94/58
[2018-12-12 20:38] VITALS: BP 108/65
[2018-12-13] MEDS: OCTREOTIDE INJECTION 500 MCG in NS (IVPB) 99 ML IV SCH ×3 (01:05→21:16)
[2018-12-13] MEDS: PIPERACILLIN/TAZOBACTAM (BULK) 4.5 GM in NS (IVPB) 100 ML IV SCH ×3 (02:23→18:37)
[2018-12-13] MEDS: CATHETER FLUSH 10 ML SYR IV SCH ×3 (05:29→20:36)
[2018-12-13] MEDS: inSUlin ASPART (NovoLOG) 1 UNIT/0.01 ML (CHARGE PER UNIT) SC SCH ×4 (05:40→20:38)
[2018-12-13 05:53] VITALS: BP 118/77
[2018-12-13] MEDS: RT-ADVAIR HFA 115/21 MCG PER PUFF IH SCH ×2 (06:23→19:41)
--- NOTE | 2018-12-13 08:35 | Cardiology Progress Note ---
Subjective Date Seen by Provider: Dec 13, 2018 Time Seen by Provider: 08:35 Subjective/Events-last exam Patient is asleep in bed, awakens to answer questions. Denies any chest pain or increased dyspnea. Objective-Cardiology Exam Last Set of Vital Signs Vital Signs 12/13/18 12/13/18 05:53 06:23 Temp 99.2 Pulse 85 Resp 18 B/P (MAP) 118/77 (91) Pulse Ox 94 O2 Delivery Nasal Cannula O2 Flow Rate 2.00 Capillary Refill : I&O Intake and Output 12/13/18 00:00 Intake Total 640 ml Balance 640 ml Intake Oral 400 ml IV Total 240 ml # Voids 3 # Bowel Movements 3 General: Alert, Oriented X3, Cooperative HEENT: Atraumatic, PERRLA Neck: Supple, No JVD, No Thyromegaly Lungs: Clear to Auscultation, Normal Air Movement Heart: Regular Rate, Normal S1, Normal S2, No Murmurs Abdomen: Normal Bowel Sounds, Soft, No Tenderness, No Hepatosplenomegaly, No Masses Extremities: No Clubbing, No Cyanosis, No Edema, Normal Pulses, No Tenderness/Swelling Skin: No Rashes, No Breakdown, No Significant Lesion Neuro: Normal Speech, Cranial Nerves 3-12 NL Psych/Mental Status: Mental Status NL, Mood NL A/P-Cardiology Admission Diagnosis Respiratory failure COPD HTN HLP Assessment/Plan Status post respiratory failure, resolved, using C Pap on and off, Continue to monitor Enterocutaneous fistula postoperatively, 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 Olvera Acute non-ST elevation myocardial infarction, poor R-wave progression in the anterior leads, probably type II myocardial infarctions due to respiratory failure, underlying coronary artery disease cannot be entirely excluded. Echocardiogram showed normal LV function. Continue with conservative management at this time, continue to monitor. Troponin level trended down, no acute EKG changes suggestive of active ischemia, conservative management at this time. Consider stress test as outpatient. Hypertension, controlled, monitor blood pressure Hyperlipidemia maintained on Lipitor, on hold at this point COPD, oxygen dependent, receiving therapy. Morbid obesity Diabetes mellitus, followed and managed by primary care physician History of tobaccoism Generalized debility/weakness. Continue to monitor. Clinical Quality Measures DVT/VTE Risk/Contraindication: Risk Factor Score Per Nursin RFS Level Per Nursing on Admit: 4+=Very High Supervisory-Addendum Brief Supervisory Addendum Participated in pt care: history, MDM, physical Personally performed: exam, history, MDM Care discussed with: PA Notes: Patient is laying down in bed, denied any chest pain Hypertension, controlled, continue to monitor blood pressure Hyperlipidemia, continue on current medication monitor Enterocutaneous fistula, has a wound VAC. ESAU WILCOX Dec 13, 2018 08:35 AUSTEN MARTÍNEZ MD Dec 13, 2018 09:43
[2018-12-13] MEDS: FUROSEMIDE 20 MG (LASIX) TAB PO SCH (08:53)
[2018-12-13] MEDS: amLODIPine 10 MG (NORVASC) TAB PO SCH (08:53)
[2018-12-13] MEDS: OMEGA 3 (FISH OIL) 1000 MG CAP PO SCH (08:53)
[2018-12-13] MEDS: LINAGLIPTIN (TRADJENTA) 5 MG TABLET PO SCH (08:53)
[2018-12-13] MEDS: MAGNESIUM OXIDE (MAG-OX)400 MG TAB PO SCH (08:53)
[2018-12-13] MEDS: VITAMIN D3 5,000 UNITS (CHOLECALCIFEROL ) CAPSULE PO SCH (08:53)
[2018-12-13] MEDS: KCL 10 MEQ TAB (MICRO K) PO SCH ×2 (08:53→20:36)
[2018-12-13] MEDS: lisINopril 20 MG (PRINIVIL) TABLET PO SCH (08:54)
[2018-12-13] MEDS: FLUoxetine HCL 20 MG (PROzac) CAP PO SCH (08:54)
[2018-12-13] MEDS: FAMOTIDINE 20 MG (PEPCID) TABLET PO SCH ×2 (08:54→20:36)
[2018-12-13] MEDS: FLUCONAZOLE 200 MG/100 ML 50 ML, EMPTY IV BAG (PVC) 1 EA IV SCH ×2 (08:54)
[2018-12-13] MEDS: DULoxetine 30 MG (CYMBALTA) CAP PO SCH (08:54)
[2018-12-13] MEDS: NICOTINE PATCH REMOVAL TP SCH (08:54)
[2018-12-13] MEDS: meTOprolol TARTRATE 25 MG (LOPRESSOR) TABLET PO SCH ×3 (08:54→20:36)
[2018-12-13] MEDS: NICOTINE 21 MG (NICODERM) PATCH TD SCH (08:55)
[2018-12-13] MEDS: ENOXAPARIN 60 MG/0.6 ML (LOVENOX) SYR SC SCH (08:55)
[2018-12-13] MEDS: DOCUSATE SODIUM 100 MG (COLACE) CAP PO SCH ×2 (09:00→20:37)
[2018-12-13] MEDS: SENNA W/DOCUSATE (SENOKOT S) TABLET PO SCH ×2 (09:00→20:37)
--- NOTE | 2018-12-13 09:26 | Physical Therapy Daily Note ---
PT Daily Note-Current Subjective Pt laying Supine in bed upon arrival. Pt agrees to PT. Pain Numeric Pain Scale: 8 Location Body Site: Ankle Pain Description: Ache Comment: Pt reports pain at Abominal site as well as L LE. Mental Status Patient Orientation: Person, Place, Time, Situation Attachments: Oxygen, Other-See Comments (Wound Vac), IV Transfers Therapy Code Descriptions/Definitions Functional [place] Measure: 0=Not Assessed/NA 4=Minimal Assistance 1=Total Assistance 5=Supervision or Setup 2=Maximal Assistance 6=Modified [place] 3=Moderate Assistance 7=Complete [place] Therapy Quality Codes: 6 Independent with activity with or without an assistive device 5 Patient requires set up or clean up by helper. Patient completes activity by themselves 4 Supervision or touching assist (CGA). [place] provide cues , steadying assist 3 The helper provides less than half the effort to complete the activity 2 The helper provides more than half the effort to complete the activity 1 Dependent. The helper does all the effort to complete an activity 7 Patient refused to complete or attempt activity 9 The patient did not perform the activity before the current illness or injury 88 Not attempted due to Medical conditions or safety concerns Scootin Supine to/from Sit: 4 Sit to/from Stand: 5 Sit to Stand (QC): 5 Wheelchair Training Does the Pt Use a Wheelchair?: Yes Exercises Supine Ex: Bridging, Ankle pumps, Quad Set, Glut sets, Heel Slides, Scooting, Straight leg raise, Hip abd/add Supine Reps: 20 Seated Therapy Exercises: Ankle pumps, Long arc quads, Hip flexion, Kicking activity, Hamstring Curls, Hip abd/add Seated Reps: 15 Treatments Pt completes Supine Ex in bed then transfers to EOB. Pt completes Seated Ex at EOB. Pt then transfers to W/C. Nurse present giving morning meds. Assessment Current Status: Good Progress Pt moves slowly and is limited by pain in ankle. PT Short Term Goals Short Term Goals Time Frame: Dec 15, 2018 Transfers (B,C,W/C) (FIM): 4 Gait (FIM): 4 Distance (FIM): 3=150 ft Gait Assistive Device: FWW PT Milk Bottler Goals Usp Goals PT Milk Bottler Goals Time Frame: Dec 29, 2018 Transfers (B,C,W/C) (FIM): 6 Sit to Lying (QC): 6 Lying-Sitting on Side/Bed(QC): 6 Sit to Stand (QC): 6 Rollin Roll Left to Right (QC): 6 Chair/Sve-he-Ppuzw Xfer(QC): 6 Car Transfer (QC): 6 Does the Patient Walk: Yes Gait (FIM): 6 Gait distance (FIM): 3=150 ft Walk 10 feet (QC): 6 Walk 10ft-Uneven Surface(QC): 6 Walk 50ft with 2 Turns (QC): 6 Walk 150 ft (QC): 6 Gait Assistive Device: FWW Does the Pt use WC or Scooter?: No Stairs (FIM): 5 # of Steps: 4 1 Step (curb) (QC): 6 4 Steps (QC): 6 12 Steps (QC): 9 Picking up an Object (QC): 9 PT Plan Problem List Problem List: Activity Tolerance, Functional Strength, Transfer Treatment/Plan Treatment Plan: Continue Plan of Care Treatment Plan: Bed Mobility, Education, Functional Activity Juan F, Functional Strength, Group Therapy, Gait, Safety, Therapeutic Exercise, Transfers Treatment Duration: Dec 29, 2018 Frequency: At least 5 of 7 days/Wk (IRF) Estimated Hrs Per Day: 1.5 hours per day Patient and/or Family Agrees t: Yes Safety Risks/Education Patient Education: Transfer Techniques, Correct Positioning, Safety Issues Teaching Recipient: Patient Teaching Methods: Discussion Response to Teaching: Verbalize Understanding Time/GCodes Time In: 815 Time Out: 900 Total Billed Treatment Time: 45 Total Billed Treatment 1, EX x2 (30m) & FA (15m) MIKI ARZOLA PTA Dec 13, 2018 09:26
--- NOTE | 2018-12-13 09:45 | PM&R Progress Note ---
Subjective HPI/CC On Admission Date Seen by Provider: Dec 13, 2018 Time Seen by Provider: 09:00 Chief complaint: Disuse myopathy. HPI: This is a 63[facility] known to me from last week hospital admission when she required intubation for acute on chronic respiratory failure with obesity-hypoventilation syndrome following hernia repair. She was able to be extubated without complication and continued to be on high flow oxygen and had suffered these issues following an uncomplicated ventral hernia surgery. Due to her morbid obesity and likely chronic CO2 retention she went into respiratory failure, had significant difficulties with multisystem organ dysfunction and was eventually able to move down to fourth floor but repeat CT scam obtained due to elevated white count per Dr. Olvera showed some sort of fistula. 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 She remained on TPN, clear liquid diet only and IV antibiotics to help heal that area. At this current time, the Pt is denying any pain and is getting around better since she was living independently and ambulating at home. The goal is to return to near prior level of function and be able to return back to independent level of living. Subjective/Events-last exam Prozac is working for her pretty well after discontinued Wellbutrin . Not sleeping at all last night so will talk to the nurse and she will talk to the Pt more in depth to see what we can do. Pt does have insomnia at home. Wound vac will change today. Feeling pretty good overall. Feels like she is gaining strength. Check meds and labs Conferred with RN Reviewed therapy notes Overall improving status Maintain on IV antibiotics Review of Systems General: Fatigue Gastrointestinal: Abdominal Pain Objective Exam Vital Signs Vital Signs Date Time Temp Pulse Resp B/P (MAP) Pulse Ox O2 Delivery O2 Flow Rate FiO2 12/13/18 19:41 92 Nasal Cannula 2.00 12/13/18 17:08 99.9 84 18 117/76 (90) Capillary Refill : General Appearance: No Apparent Distress, WD/WN HEENT: PERRL/EOMI, Normal ENT Inspection, Pharynx Normal, Moist Mucous Membranes Neck: Full Range of Motion, Non Tender, Supple Respiratory: No Accessory Muscle Use, No Respiratory Distress Cardiovascular: Regular Rate, Rhythm, No Edema Gastrointestinal: Normal Bowel Sounds, No Organomegaly, No Pulsatile Mass, Soft, Tenderness, Other (fistula) Back: Normal Inspection, No CVA Tenderness, No Vertebral Tenderness Extremity: Normal Capillary Refill, Normal Range of Motion, No Calf Tenderness, No Pedal Edema, Other (No redness, warmth, pain, or swelling of the left extremity.) Neurologic/Psychiatric: Alert, Oriented x3 Skin: Normal Color, Warm/Dry Lymphatic: No Adenopathy Results/Procedures Lab Patient resulted labs reviewed. FIM Transfers Therapy Code Descriptions/Definitions Functional [place] Measure: 0=Not Assessed/NA 4=Minimal Assistance 1=Total Assistance 5=Supervision or Setup 2=Maximal Assistance 6=Modified [place] 3=Moderate Assistance 7=Complete [place] Therapy Quality Codes: 6 Independent with activity with or without an assistive device 5 Patient requires set up or clean up by helper. Patient completes activity by themselves 4 Supervision or touching assist (CGA). [place] provide cues , steadying assist 3 The helper provides less than half the effort to complete the activity 2 The helper provides more than half the effort to complete the activity 1 Dependent. The helper does all the effort to complete an activity 7 Patient refused to complete or attempt activity 9 The patient did not perform the activity before the current illness or injury 88 Not attempted due to Medical conditions or safety concerns Transfers (B, C, W/C) (FIM): 5 Scootin Rollin Roll Left to Right (QC): 6 Supine to/from Sit: 4 Sit to/from Stand: 5 Sit to Lying (QC): 6 Sit to Stand (QC): 5 Chair/Adm-ce-Aejvr Xfer(QC): 6 Bed to/from Chair: 6 Car Transfer (QC): 88 (Unsafe to attempt car transfer at this time. ) Gait Training Does the Patient Walk?: Yes Gait (FIM): 2 Distance (FIM): 4=208-47 ft Distance: 100 x2, 50 Walk 10 feet (QC): 6 Walk 50 ft with 2 Turns(QC): 6 Walk 150 ft (QC): 88 Walking 10ft/uneven surface-QC: 88 Gait Level of Assist: 5 (no LOB or unsteadiness) Gait Persons Needed: 2 (2nd person A only required to assist with ancillary equipment (Oxygen tank, IV pole, wound vac and following with w/c)) Gait Assistive Device: FWW Wheelchair Training Does the Pt Use a Wheelchair?: Yes Stair Training Stair Training: Handrails/: uses walker Stairs (FIM): 1 #of Steps: 1 1 Step (curb) (QC): 5 4 Steps (QC): 88 12 Steps (QC): 88 Stairs: Pattern: Step to Level of Assist: 5 Balance Picking up an Object (QC): 88 Mental Status/Objective Comprehension: 7 Expression: 7 Social Interaction: 7 Problem Solvin Memory: 6 ADL-Treatment Groomin Oral Hygiene (QC): 5 Bathing Location: L Arm, R Arm, L Upper Leg, R Upper Leg, L Lower Leg (including foot), R Lower Leg (including foot), Chest, Abdomen Shower/Bathe Self (QC): 3 Upper Extremity Dressin (Pt completed with only assist to manipulate IV tubing. Set up only) Upper Body Dressing (QC): 4 Lower Extremity Dressin (SBA after set up. Using FWW in standing for support when hiking pants over hips.) Lower Body Dressing (QC): 4 On/Off Footwear (QC): 3 Toiletin Toileting Hygiene (QC): 4 Toilet/Commode Transfer: 5 Toilet Transfer (QC): 4 Shower: 5 (Pt required FWW, grabbar, and shower tub bench. ) Assessment/Plan Assessment and Plan Assess & Plan/Chief Complaint Plan: IRF protocol OOB in chair most of day when not in therapy Advanced diet doing well Right flank hematoma now resolved Lovenox maintained O2 maintained and weaning well now at 2L/min PLOF was ambulating at home Ostomy care per surgical service to help with leakage by placing wound vac which is tolerated well Left leg radiculopathy evaluated Monitor labs prn Pet pass was successful Psych evaluation for depression is appreciated and I changed meds to her recs. Left leg radiculopathy managed conservatively Replace potassium PO BID (1) Myopathy (2) COPD (chronic obstructive pulmonary disease) Status: Chronic Qualifiers: COPD type: unspecified COPD Qualified Codes: J44.9 - Chronic obstructive pulmonary disease, unspecified (3) Hypokalemia Status: Acute (4) Diabetes mellitus, type 2 Status: Chronic Qualifiers: Diabetes mellitus terminal make up operator insulin use: with terminal make up operator use Diabetes mellitus complication status: with other specified complication Qualified Codes: E11.69 - Type 2 diabetes mellitus with other specified complication; Z79.4 - FDC (current) use of insulin (5) Ventilator dependence Status: Resolved Resolution Date/Time: 11/25/18 @ 20:44 (6) Enterocutaneous fistula Status: Acute (7) Obesity hypoventilation syndrome Status: Chronic (8) On total parenteral nutrition (TPN) Status: Acute (9) BRAYAN treated with BiPAP Status: Chronic (10) Smoker Status: Chronic ALEIDA LICEA DO Dec 13, 2018 09:45
--- NOTE | 2018-12-13 10:45 | Occupational Ther Daily Note ---
OT Current Status-Daily Note Subjective Pt sitting in w/c upon OT arrival. Pt agrees to therapy. Mental Status/Objective Patient Orientation: Person, Place, Time, Situation Therapy Code Descriptions/Definitions Functional [place] Measure: 0=Not Assessed/NA 4=Minimal Assistance 1=Total Assistance 5=Supervision or Setup 2=Maximal Assistance 6=Modified [place] 3=Moderate Assistance 7=Complete [place] Attachments: Central Line, Drains ADL-Treatment Pt brushed hair sitting in w/c in bathroom. Pt requires increased time due to maneuvering w/c, oxygen, drain tubing, and IV pole. Therapy Code Descriptions/Definitions Functional [place] Measure: 0=Not Assessed/NA 4=Minimal Assistance 1=Total Assistance 5=Supervision or Setup 2=Maximal Assistance 6=Modified [place] 3=Moderate Assistance 7=Complete [place] Therapy Quality Codes: 6 Independent with activity with or without an assistive device 5 Patient requires set up or clean up by helper. Patient completes activity by themselves 4 Supervision or touching assist (CGA). [place] provide cues , steadying assist 3 The helper provides less than half the effort to complete the activity 2 The helper provides more than half the effort to complete the activity 1 Dependent. The helper does all the effort to complete an activity 7 Patient refused to complete or attempt activity 9 The patient did not perform the activity before the current illness or injury 88 Not attempted due to Medical conditions or safety concerns Bathing (FIM): 5 (Pt required long handled sponge to wash lower legs. Pt able to wash upper body using wash cloth by self. Pt able to rinse and dry by self, SBA while standing. ) Bathing Location: L Arm, R Arm, L Upper Leg, R Upper Leg, L Lower Leg (including foot), R Lower Leg (including foot), Chest, Abdomen, Buttocks, Perineal Area Shower/Bathe Self (QC): 4 Upper Body (FIM): 4 (Pt required assist to manipulate tubing through to [facility] gown. Pt able required assist to thread tubing through shirt. Pt able to thread head and arms through sleeves to don by self. ) Upper Body Dressing (QC): 4 Lower Body Dressing (FIM): 4 (Pt able to don briefs above knee by self. Pt required assist to manipulate tubing and adjust briefs on backside. Pt able to adjust briefs on frontside. SBA assist while standing. ) Lower Body Dressing (QC): 4 Toileting (FIM): 4 (Pt able to cleanse self after voiding. Pt required min assist to with gown due to tubing. CGA while standing.) Toileting Hygiene (QC): 4 Transfers (B, C, W/C) (FIM): 4 (Pt requires assist to move drain tubing and oxgyen. CGA assist for safety. ) Toilet/Commode Transfer (FIM): 4 (Pt requires grabbar. Pt requires assist to manuever drain tubing, IV pole and oxygen. SBA assist for safety while stand to sit. ) Toilet Transfer (QC): 5 Shower Transfer(FIM): 5 (Pt required grab bar and shower bench, SBA assist for safety. ) Other Treatment Pt completed UE exercises against gravity. Initially pt had decreased shldr ROM then after first set AROM improved. After therapy, pt lying in bed with call light/phone in reach. All needs met in room. OT Short Term Goals Short Term Goals Time Frame: Dec 08, 2018 Eating(FIM): 5 Grooming(FIM): 5 Bathing(FIM): 4 Upper Body Dressing(FIM): 4 Lower Body Dressing(FIM): 3 Toileting(FIM): 3 Transfers (B,C,W/C) (FIM): 4 Toilet/Commode Transfer(FIM): 4 Shower Transfer(FIM): 4 Additional Short Term Goals: 1-Demonstrate ADL Tasks, 2-Verbalize Understanding, 3-ImproveStrength/Juan F 1=Demonstrate adherence to instructed precautions during ADL tasks. 2=Patient will verbalize/demonstrate understanding of assistive devices/modifications for ADL. 3=Patient will improve strength/tolerance for activity to enable patient to perform ADL's. OT Panelbeater Goals [facility] Living Goals Time Frame: Dec 22, 2018 Eating (FIM): 6 Eating (QC): 6 Groomin Oral Hygiene (QC): 6 Bathing(FIM): 5 Shower/Bathe Self (QC): 4 Upper Body Dressing(FIM): 5 Upper Body Dressing (QC): 4 Lower Body Dressing(FIM): 5 Lower Body Dressing (QC): 4 On/Off Footwear (QC): 4 Toileting(FIM): 6 Toileting Hygiene (QC): 6 Transfers (B,C,W/C) (FIM): 6 Toilet/Commode Transfer(FIM): 6 Toilet/Commode Transfer (QC): 6 Shower Transfer(FIM): 5 Additional Goals: 1-Demonstrate ADL Tasks, 2-Verbalize Understanding, 3-Imp roveStrength/Juan F 1=Demonstrate adherence to instructed precautions during ADL tasks. 2=Patient will verbalize/demonstrate understanding of assistive devices/modifications for ADL. 3=Patient will improve strength/tolerance for activity to enable patient to perform ADL's. OT Education/Plan Discharge Recommendations Plan/Recommendations: Continue POC Treatment Plan/Plan of Care Patient would benefit from OT for education, treatment and training to promote independence in ADL's, mobility, safety and/or upper extremity function for ADL's. Plan of Care: ADL Retraining, Functional Mobility, Group Exercise/Act as Ind, UE Funct Exercise/Act Treatment Duration: Dec 22, 2018 Frequency: At least 5 of 7 days/Wk (IRF) Estimated Hrs Per Day: 1.5 hours per day Agreement: Yes Rehab Potential: Good Time/GCodes Start Time: 09:30 Stop Time: 11:00 Total Time Billed (hr/min): 90 Billed Treatment Time 1 visit- ADL 5 (70 min) EX 1 (20 min) CEDRIC DURANT Dec 13, 2018 10:45
--- NOTE | 2018-12-13 11:13 | NUR ---
DISCUSSED OCTREOTIDE AND ZOSYN DURATION WITH DR ELIZABETH, PLAN TO CONTINUE UNTIL 12/19/18. Addendum: 12/13/18 at 1114 by JOCELINE MIKE [facility] UPDATED DURATION ON BOTH MEDICATIONS
--- NOTE | 2018-12-13 13:21 | Speech Therapy Daily Note ---
Speech Daily Progress Note Subjective Date Seen by Provider: Dec 13, 2018 Time Seen by Provider: 00:15 The patient was laying in bed, appeared depressed. She stated she was just tired of ''this crap". Objective The patient utilizes directions for intake of liquids of small sips with 90% and minimal cues. Assessment Assessment Current Status: Good Progress Treatment Plan Continue Plan of Care Communication Comprehension: 7 Expression: 7 Social Cognition Social Interaction: 7 Problem Solvin Memory: 6 Speech Short Term Goals Short Term Goals Short Term Goals 1) The patient will tolerate least restrictive diet level without s/s of aspiration at 90% or greater. 2) The patient will utilize compensatory strategies as trained for safe oral intake at 90% or greater given minimal verbal cues. Speech Transfer Car Operator Goals Transfer Car Operator Goals The patient will maintain adequate nutrition/hydration via safe effective swallow function. Speech-Plan Patient/Family Goals Patient/Family Goals: The patient plans on moving in to assisted living post rehab. Treatment Plan Speech Therapy Treatment Plan: Continue Plan of Care The patient just wants to get out of the hospital and go home. Treatment Duration: Dec 16, 2018 Frequency: 5 times per week Estimated Hrs Per Day: .25 hour per day Rehab Potential: Good Barriers to Learning: The patient has a medically complex status Pt/Family Agrees to Plan: Yes Safety Risks/Education Teaching Recipient: Patient Teaching Methods: Demonstration, Discussion Response to Teaching: Verbalize Understanding, Return Demonstration Education Topics Provided: Continued safety of oral intake. Time Speech Therapy Time In: 13:15 Speech Therapy Time Out: 13:30 Total Billed Time: 15 Billed Treatment Time 1, ANTHONY Walton Dec 13, 2018 13:21
--- NOTE | 2018-12-13 13:42 | Physical Therapy Daily Note ---
PT Daily Note-Current Subjective Pt laying Supine in bed upon arrival. Pt agrees to Supine Ex only due to fatigue from not sleeping well last night. Pain Numeric Pain Scale: 8 Location: Left Location Body Site: Ankle Pain Description: Ache, Tightness Mental Status Patient Orientation: Person, Place, Time, Situation Attachments: Oxygen Transfers Therapy Code Descriptions/Definitions Functional [place] Measure: 0=Not Assessed/NA 4=Minimal Assistance 1=Total Assistance 5=Supervision or Setup 2=Maximal Assistance 6=Modified [place] 3=Moderate Assistance 7=Complete [place] Therapy Quality Codes: 6 Independent with activity with or without an assistive device 5 Patient requires set up or clean up by helper. Patient completes activity by themselves 4 Supervision or touching assist (CGA). [place] provide cues , steadying assist 3 The helper provides less than half the effort to complete the activity 2 The helper provides more than half the effort to complete the activity 1 Dependent. The helper does all the effort to complete an activity 7 Patient refused to complete or attempt activity 9 The patient did not perform the activity before the current illness or injury 88 Not attempted due to Medical conditions or safety concerns Exercises Supine Ex: Ankle pumps, Quad Set, Glut sets, Heel Slides, Hip abd/add Supine Reps: 20 (RB as needed for) Treatments Pt completes Supine Ex in bed with RB as needed for fatigue & pain. Pt has all needs met at end of tx. Assessment Current Status: Fair Progress Pt is very fatigued from not sleeping well. Dr Conrad is aware and is working with pt to try to improve this for improved Therapy. PT Short Term Goals Short Term Goals Time Frame: Dec 15, 2018 Transfers (B,C,W/C) (FIM): 4 Gait (FIM): 4 Distance (FIM): 3=150 ft Gait Assistive Device: FWW PT [facility] Goals Hypo Splasher Goals PT [facility] Goals Time Frame: Dec 29, 2018 Transfers (B,C,W/C) (FIM): 6 Sit to Lying (QC): 6 Lying-Sitting on Side/Bed(QC): 6 Sit to Stand (QC): 6 Rollin Roll Left to Right (QC): 6 Chair/Uaq-ev-Tncrx Xfer(QC): 6 Car Transfer (QC): 6 Does the Patient Walk: Yes Gait (FIM): 6 Gait distance (FIM): 3=150 ft Walk 10 feet (QC): 6 Walk 10ft-Uneven Surface(QC): 6 Walk 50ft with 2 Turns (QC): 6 Walk 150 ft (QC): 6 Gait Assistive Device: FWW Does the Pt use WC or Scooter?: No Stairs (FIM): 5 # of Steps: 4 1 Step (curb) (QC): 6 4 Steps (QC): 6 12 Steps (QC): 9 Picking up an Object (QC): 9 PT Plan Problem List Problem List: Activity Tolerance, Functional Strength Treatment/Plan Treatment Plan: Continue Plan of Care Treatment Plan: Bed Mobility, Education, Functional Activity Juan F, Functional Strength, Group Therapy, Gait, Safety, Therapeutic Exercise, Transfers Treatment Duration: Dec 29, 2018 Frequency: At least 5 of 7 days/Wk (IRF) Estimated Hrs Per Day: 1.5 hours per day Patient and/or Family Agrees t: Yes Safety Risks/Education Patient Education: Correct Positioning, Safety Issues Teaching Recipient: Patient Teaching Methods: Discussion Response to Teaching: Verbalize Understanding Time/GCodes Time In: 1315 Time Out: 1345 Total Billed Treatment Time: 30 Total Billed Treatment 1, EX x2 (30m) MIKI ARZOLA RECREATION INSTRUCTOR Dec 13, 2018 13:42
[2018-12-13 14:54] VITALS: BP 116/63
[2018-12-13 17:08] VITALS: BP 117/76
[2018-12-13] MEDS ORDERED: ENOXAPARIN 40 MG/0.4 ML (LOVENOX) SYR SC SCH (22:00)
[2018-12-14] MEDS: PIPERACILLIN/TAZOBACTAM (BULK) 4.5 GM in NS (IVPB) 100 ML IV SCH ×3 (02:09→18:32)
[2018-12-14 05:50] VITALS: BP 117/76
[2018-12-14] MEDS: inSUlin ASPART (NovoLOG) 1 UNIT/0.01 ML (CHARGE PER UNIT) SC SCH ×4 (05:58→21:00)
--- NOTE | 2018-12-14 06:08 | Progress Note - Hospitalist ---
NAVYA CONTRERAS [facility] 12/14/18 0608: Progress Note Prior to her hospitalization, Ms. Hernandez was still self sufficient but was on constant 02 at home, a walker for ambulating distances, and scooters at the grocery store. She was also able to independently participate in ADL's with the use of her walker at home. 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 She resided in [place] as a young girl, then moved to [place] at 15 to be with family. [place] is where she states that most of her issues started, primarily beginning with dieti ng pills at an age of 15. She has been a pretty constant smoker all her life, starting at 14 and having several episodes of quitting and restarting again, but seldomly has drank. She lives in a apartment that is on the ground level with her dog. Her remaining son lives with his about 2 miles away in [facility], but cannot provided a constant care because he has a family of his own to support. Her dog helps her maintain a positive attitude, where she also finds enjoyment in sewing and embroidering sometimes. DANG CONRAD DO 12/14/18 1124: Supervisory-Addendum Brief Verification & Attestation Participated in pt care: history, MDM, physical Personally performed: exam, history, MDM, supervision of care Care discussed with: Medical Student Procedures: n/a Results interpretation: Verified all documentation Verification and Attestation of Medical Student E/M Service A medical student performed and documented this service in my presence. I reviewed and verified all information documented by the medical student and made modifications to such information, when appropriate. I personally performed the physical exam and medical decision making. Dang Conrad, Dec 14, 2018,11:23 NAVYA CONTRERAS [facility] Dec 14, 2018 06:08 DANG CONRAD DO Dec 14, 2018 11:24
[2018-12-14] MEDS: CATHETER FLUSH 10 ML SYR IV SCH ×3 (06:18→22:26)
[2018-12-14] MEDS: OCTREOTIDE INJECTION 500 MCG in NS (IVPB) 99 ML IV SCH ×2 (07:58→17:00)
[2018-12-14] MEDS: RT-ADVAIR HFA 115/21 MCG PER PUFF IH SCH ×2 (08:12→19:14)
--- NOTE | 2018-12-14 08:34 | Cardiology Progress Note ---
Subjective Date Seen by Provider: Dec 14, 2018 Time Seen by Provider: 08:15 Subjective/Events-last exam Patient is sitting up in chair, no new complaints. Denies any chest pain or dyspnea. Review of Systems General: No Chills, No Night Sweats, No Fatigue, No Malaise, No Appetite, No Other HEENT: No Head Aches, No Visual Changes, No Eye Pain, No Ear Pain, No Dysphasia, No Sinus Congestion, No Post Nasal Drip, No Sore Throat, No Other Pulmonary: No Dyspnea, No Cough, No Pleuritic Chest Pain, No Other Cardiovascular: No: Chest Pain, Palpitations, Orthopnea, Paroxysmal Noc. Dyspnea, Edema, Lt Headedness, Other Objective-Cardiology Exam Last Set of Vital Signs Vital Signs 12/14/18 12/14/18 12/14/18 05:50 08:12 08:42 Temp 99.9 Pulse 85 Resp 18 B/P (MAP) 116/68 (84) Pulse Ox 93 O2 Delivery Nasal Cannula O2 Flow Rate 2.00 Capillary Refill : I&O Intake and Output 12/14/18 00:00 Intake Total 2930 ml Balance 2930 ml Intake Oral 2500 ml IV Total 430 ml # Voids 11 # Bowel Movements 5 General: Alert, Oriented X3, Cooperative HEENT: Atraumatic, PERRLA Neck: Supple, No JVD, No Thyromegaly Lungs: Clear to Auscultation, Normal Air Movement Heart: Regular Rate, Normal S1, Normal S2, No Murmurs Abdomen: Normal Bowel Sounds, Soft, No Tenderness, No Hepatosplenomegaly, No Masses Extremities: No Clubbing, No Cyanosis, No Edema, Normal Pulses, No Tenderness/Swelling Skin: No Rashes, No Breakdown, No Significant Lesion Neuro: Normal Speech, Cranial Nerves 3-12 NL Psych/Mental Status: Mental Status NL, Mood NL Results Lab Laboratory Tests Test 12/13/18 15:23 12/13/18 18:32 12/13/18 20:37 12/14/18 05:30 Range/Units Glucometer 211 H 190 H 164 H 135 H 70-110 MG/DL Test 12/14/18 10:59 Range/Units Glucometer 224 H 70-110 MG/DL A/P-Cardiology Admission Diagnosis Respiratory failure COPD HTN HLP Assessment/Plan Status post respiratory failure, resolved, using C Pap on and off, Continue to monitor Enterocutaneous fistula postoperatively, 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 Olvera Acute non-ST elevation myocardial infarction, poor R-wave progression in the anterior leads, probably type II myocardial infarctions due to respiratory failure, underlying coronary artery disease cannot be entirely excluded. Echocardiogram showed normal LV function. Continue with conservative management at this time, continue to monitor. Troponin level trended down, no acute EKG changes suggestive of active ischemia, conservative management at this time. Consider stress test as outpatient. Hypertension, controlled, monitor blood pressure Hyperlipidemia maintained on Lipitor, on hold at this point COPD, oxygen dependent, receiving therapy. Morbid obesity Diabetes mellitus, followed and managed by primary care physician History of tobaccoism Generalized debility/weakness. Continue to monitor. Clinical Quality Measures DVT/VTE Risk/Contraindication: Risk Factor Score Per Nursin RFS Level Per Nursing on Admit: 4+=Very High Supervisory-Addendum Brief Supervisory Addendum Participated in pt care: history, MDM, physical Personally performed: exam, history, MDM Care discussed with: PA Notes: Patient is complaining of fatigue and loss of energy Low grade fever Enterocutaneous fistula Status post respiratory failure Hypertension Continue on current medication, septic workup, management per ESAU Larkin Dec 14, 2018 8:34 am AUSTEN MARTÍNEZ MD Dec 14, 2018 2:23 pm
[2018-12-14 08:42] VITALS: BP 116/68
[2018-12-14] MEDS: DULoxetine 30 MG (CYMBALTA) CAP PO SCH (08:43)
[2018-12-14] MEDS: lisINopril 20 MG (PRINIVIL) TABLET PO SCH (08:43)
[2018-12-14] MEDS: VITAMIN D3 5,000 UNITS (CHOLECALCIFEROL ) CAPSULE PO SCH (08:43)
[2018-12-14] MEDS: FUROSEMIDE 20 MG (LASIX) TAB PO SCH (08:43)
[2018-12-14] MEDS: amLODIPine 10 MG (NORVASC) TAB PO SCH (08:43)
[2018-12-14] MEDS: FAMOTIDINE 20 MG (PEPCID) TABLET PO SCH ×2 (08:43→21:10)
[2018-12-14] MEDS: OMEGA 3 (FISH OIL) 1000 MG CAP PO SCH (08:43)
[2018-12-14] MEDS: MAGNESIUM OXIDE (MAG-OX)400 MG TAB PO SCH (08:43)
[2018-12-14] MEDS: NICOTINE 21 MG (NICODERM) PATCH TD SCH (08:43)
[2018-12-14] MEDS: KCL 10 MEQ TAB (MICRO K) PO SCH ×2 (08:43→21:10)
[2018-12-14] MEDS: FLUoxetine HCL 20 MG (PROzac) CAP PO SCH (08:43)
[2018-12-14] MEDS: meTOprolol TARTRATE 25 MG (LOPRESSOR) TABLET PO SCH ×3 (08:43→21:12)
[2018-12-14] MEDS: LINAGLIPTIN (TRADJENTA) 5 MG TABLET PO SCH (08:43)
[2018-12-14] MEDS: NICOTINE PATCH REMOVAL TP SCH (08:44)
[2018-12-14] MEDS: DOCUSATE SODIUM 100 MG (COLACE) CAP PO SCH ×2 (09:40→21:12)
[2018-12-14] MEDS: SENNA W/DOCUSATE (SENOKOT S) TABLET PO SCH ×2 (09:40→21:17)
--- NOTE | 2018-12-14 10:11 | Occupational Ther Daily Note ---
OT Current Status-Daily Note Subjective Pt in therapy gym upon OT arrival. Pt agrees to therapy. PT reported that pt had slight temp. Mental Status/Objective Patient Orientation: Person, Place, Time, Situation Therapy Code Descriptions/Definitions Functional [place] Measure: 0=Not Assessed/NA 4=Minimal Assistance 1=Total Assistance 5=Supervision or Setup 2=Maximal Assistance 6=Modified [place] 3=Moderate Assistance 7=Complete [place] Attachments: Drains, IV, Oxygen ADL-Treatment Therapy Code Descriptions/Definitions Functional [place] Measure: 0=Not Assessed/NA 4=Minimal Assistance 1=Total Assistance 5=Supervision or Setup 2=Maximal Assistance 6=Modified [place] 3=Moderate Assistance 7=Complete [place] Therapy Quality Codes: 6 Independent with activity with or without an assistive device 5 Patient requires set up or clean up by helper. Patient completes activity by themselves 4 Supervision or touching assist (CGA). [place] provide cues , steadying assist 3 The helper provides less than half the effort to complete the activity 2 The helper provides more than half the effort to complete the activity 1 Dependent. The helper does all the effort to complete an activity 7 Patient refused to complete or attempt activity 9 The patient did not perform the activity before the current illness or injury 88 Not attempted due to Medical conditions or safety concerns Transfers (B, C, W/C) (FIM): 4 (Pt requires assist manuvering drain, oxygen, and IV pole. CGA assist while standing. ) Other Treatment Pt demonstrated ability to propel self to designated areas in therapy gym, requiring assist maneuver drain, oxygen, and IV pole. Pt participated in duration 15 min at 15 watt resistance to increase upper body strength for daily activity tasks. Pt required 1 rest break due to decreased activity tolerance. Pt transported back to room to work on bed mobility exercise. Pt participated in fi ne motor exercise by unscrewing nuts and bolts to increase finger strength for functional activity tasks. Pt in bed, call light and phone in reach, all needs met. OT Short Term Goals Short Term Goals Time Frame: Dec 08, 2018 Eating(FIM): 5 Grooming(FIM): 5 Bathing(FIM): 4 Upper Body Dressing(FIM): 4 Lower Body Dressing(FIM): 3 Toileting(FIM): 3 Transfers (B,C,W/C) (FIM): 4 Toilet/Commode Transfer(FIM): 4 Shower Transfer(FIM): 4 Additional Short Term Goals: 1-Demonstrate ADL Tasks, 2-Verbalize Unde rstanding, 3-ImproveStrength/Juan F 1=Demonstrate adherence to instructed precautions during ADL tasks. 2=Patient will verbalize/demonstrate understanding of assistive devices/modifications for ADL. 3=Patient will improve strength/tolerance for activity to enable patient to perform ADL's. OT Fpc Goals Fpc Goals Time Frame: Dec 22, 2018 Eating (FIM): 6 Eating (QC): 6 Groomin Oral Hygiene (QC): 6 Bathing(FIM): 5 Shower/Bathe Self (QC): 4 Upper Body Dressing(FIM): 5 Upper Body Dressing (QC): 4 Lower Body Dressing(FIM): 5 Lower Body Dressing (QC): 4 On/Off Footwear (QC): 4 Toileting(FIM): 6 Toileting Hygiene (QC): 6 Transfers (B,C,W/C) (FIM): 6 Toilet/Commode Transfer(FIM): 6 Toilet/Commode Transfer (QC): 6 Shower Transfer(FIM): 5 Additional Goals: 1-Demonstrate ADL Tasks, 2-Verbalize Understanding, 3-ImproveStrength/Juan F 1=Demonstrate adherence to instructed precautions during ADL tasks. 2=Patient will verbalize/demonstrate understanding of assistive devices/modifications for ADL. 3=Patient will improve strength/tolerance for activity to enable patient to perform ADL's. OT Education/Plan Problem List/Assessment Assessment: Decreased Activ Tolerance, Decreased UE Strength, Impaired Self- Care Skills Discharge Recommendations Plan/Recommendations: Continue POC Treatment Plan/Plan of Care Patient would benefit from OT for education, treatment and training to promote independence in ADL's, mobility, safety and/or upper extremity function for ADL's. Plan of Care: ADL Retraining, Functional Mobility, Group Exercise/Act as Ind, UE Funct Exercise/Act Treatment Duration: Dec 22, 2018 Frequency: At least 5 of 7 days/Wk (IRF) Estimated Hrs Per Day: 1.5 hours per day Agreement: Yes Rehab Potential: Good Time/GCodes Start Time: 09:00 Stop Time: 10:00 Total Time Billed (hr/min): 60 Billed Treatment Time 1 visit- FA 2 (30 min) EX 2 (30 min) CEDRIC DURANT Dec 14, 2018 10:11
--- NOTE | 2018-12-14 11:02 | PM&R Progress Note ---
Subjective HPI/CC On Admission Date Seen by Provider: Dec 14, 2018 Time Seen by Provider: 09:30 Chief complaint: Disuse myopathy. HPI: This is a 63yoWF On License Of [facility] Pt known to me from last week hospital admission when she required intubation for acute on chronic respiratory failure with obesity-hypoventilation syndrome following hernia repair. She was able to be extubated without complication and continued to be on high flow oxygen and had suffered these issues following an uncomplicated ventral hernia surgery. Due to her morbid obesity and likely chronic CO2 retention she went into respiratory failure, had significant difficulties with multisystem organ dysfunction and was eventually able to move down to fourth floor but repeat CT scam obtained due to elevated white count per Dr. Olvera showed some sort of fistula. 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 She remained on TPN, clear liquid diet only and IV antibiotics to help heal that area. At this current time, the Pt is denying any pain and is getting around better since she was living independently and ambulating at home. The goal is to return to near prior level of function and be able to return back to independent level of living. Subjective/Events-last exam Chronically depressed and this is the anniversary of her loved ones Getting around really well but has seemed to have plateaued Slept better last night Left leg Radiculopathy is much improved, she is able to move it around a little bit Changed wound vac yesterday and wound looks very good Refused psychiatric treatment and has refused to use toilet tongs Will recheck her next week to evaluate how she is and may need fci Check meds and labs Conferred with RN Reviewed therapy notes Overall improving status Maintain on IV antibiotics Review of Systems General: Fatigue, Malaise Gastrointestinal: Abdominal Pain Musculoskeletal: leg pain Objective Exam Vital Signs Vital Signs Date Time Temp Pulse Resp B/P (MAP) Pulse Ox O2 Delivery O2 Flow Rate FiO2 12/14/18 19:14 94 Nasal Cannula 2.00 12/14/18 17:25 99.2 90 22 110/71 (84) Capillary Refill : General Appearance: No Apparent Distress, WD/WN HEENT: PERRL/EOMI, Normal ENT Inspection, Pharynx Normal, Moist Mucous Membranes Neck: Full Range of Motion, Non Tender, Supple Respiratory: No Accessory Muscle Use, No Respiratory Distress Cardiovascular: Regular Rate, Rhythm, No Edema Gastrointestinal: Normal Bowel Sounds, No Organomegaly, No Pulsatile Mass, Soft, Tenderness, Other (fistula) Back: Normal Inspection, No CVA Tenderness, No Vertebral Tenderness Extremity: Normal Capillary Refill, Normal Range of Motion, No Calf Tenderness, No Pedal Edema, Other (No redness, warmth, pain, or swelling of the left extremity.) Neurologic/Psychiatric: Alert, Oriented x3 Skin: Normal Color, Warm/Dry Lymphatic: No Adenopathy Results/Procedures Lab Patient resulted labs reviewed. FIM Transfers Therapy Code Descriptions/Definitions Functional [place] Measure: 0=Not Assessed/NA 4=Minimal Assistance 1=Total Assistance 5=Supervision or Setup 2=Maximal Assistance 6=Modified [place] 3=Moderate Assistance 7=Complete [place] Therapy Quality Codes: 6 Independent with activity with or without an assistive device 5 Patient requires set up or clean up by helper. Patient completes activity by themselves 4 Supervision or touching assist (CGA). [place] provide cues , steadying assist 3 The helper provides less than half the effort to complete the activity 2 The helper provides more than half the effort to complete the activity 1 Dependent. The helper does all the effort to complete an activity 7 Patient refused to complete or attempt activity 9 The patient did not perform the activity before the current illness or injury 88 Not attempted due to Medical conditions or safety concerns Transfers (B, C, W/C) (FIM): 4 (Pt requires assist manuvering drain, oxygen, and IV pole. CGA assist while standing. ) Scootin Rollin Roll Left to Right (QC): 6 Supine to/from Sit: 4 Sit to/from Stand: 5 Sit to Lying (QC): 6 Sit to Stand (QC): 5 Chair/Rix-vu-Uhvou Xfer(QC): 6 Bed to/from Chair: 6 Car Transfer (QC): 88 (Unsafe to attempt car transfer at this time. ) Gait Training Does the Patient Walk?: Yes Gait (FIM): 2 Distance (FIM): 7=126-13 ft Distance: 100 x2, 50 Walk 10 feet (QC): 6 Walk 50 ft with 2 Turns(QC): 6 Walk 150 ft (QC): 88 Walking 10ft/uneven surface-QC: 88 Gait Level of Assist: 5 (no LOB or unsteadiness) Gait Persons Needed: 2 (2nd person A only required to assist with ancillary equipment (Oxygen tank, IV pole, wound vac and following with w/c)) Gait Assistive Device: FWW Wheelchair Training Does the Pt Use a Wheelchair?: Yes Stair Training Stair Training: Handrails/: uses walker Stairs (FIM): 1 #of Steps: 1 1 Step (curb) (QC): 5 4 Steps (QC): 88 12 Steps (QC): 88 Stairs: Pattern: Step to Level of Assist: 5 Balance Picking up an Object (QC): 88 Mental Status/Objective Comprehension: 7 Expression: 7 Social Interaction: 7 Problem Solvin Memory: 6 ADL-Treatment Groomin Oral Hygiene (QC): 5 Bathin (Pt required long handled sponge to wash lower legs. Pt able to wash upper body using wash cloth by self. Pt able to rinse and dry by self, SBA while standing. ) Bathing Location: L Arm, R Arm, L Upper Leg, R Upper Leg, L Lower Leg (including foot), R Lower Leg (including foot), Chest, Abdomen, Buttocks, Perineal Area Shower/Bathe Self (QC): 4 Upper Extremity Dressin (Pt required assist to manipulate tubing through to [facility] gown. Pt able required assist to thread tubing through shirt. Pt able to thread head and arms through sleeves to don by self. ) Upper Body Dressing (QC): 4 Lower Extremity Dressin (Pt able to don briefs above knee by self. Pt required assist to manipulate tubing and adjust briefs on backside. Pt able to adjust briefs on frontside. SBA assist while standing. ) Lower Body Dressing (QC): 4 On/Off Footwear (QC): 3 Toiletin (Pt able to cleanse self after voiding. Pt required min assist to with gown due to tubing. CGA while standing.) Toileting Hygiene (QC): 4 Toilet/Commode Transfer: 4 (Pt requires grabbar. Pt requires assist to manuever drain tubing, IV pole and oxygen. SBA assist for safety while stand to sit. ) Toilet Transfer (QC): 5 Shower: 5 (Pt required grab bar and shower bench, SBA assist for safety. ) Assessment/Plan Assessment and Plan Assess & Plan/Chief Complaint Plan: IRF protocol OOB in chair most of day when not in therapy Advanced diet doing well Right flank hematoma now resolved Lovenox maintained O2 maintained and weaning well now at 2L/min PLOF was ambulating at home Ostomy care per surgical service to help with leakage by placing wound vac which is tolerated well Left leg radiculopathy evaluated Monitor labs prn Pet pass was successful Psych evaluation for depression is appreciated and I changed meds to her recs. Left leg radiculopathy managed conservatively Replace potassium PO BID (1) Myopathy (2) COPD (chronic obstructive pulmonary disease) Status: Chronic Qualifiers: COPD type: unspecified COPD Qualified Codes: J44.9 - Chronic obstructive pulmonary disease, unspecified (3) Hypokalemia Status: Acute (4) Diabetes mellitus, type 2 Status: Chronic Qualifiers: Diabetes mellitus director of first impressions insulin use: with care home use Diabetes mellitus complication status: with other specified complication Qualified Codes: E11.69 - Type 2 diabetes mellitus with other specified complication; Z79.4 - MCC (current) use of insulin (5) Ventilator dependence Status: Resolved Resolution Date/Time: 11/25/18 @ 20:44 (6) Enterocutaneous fistula Status: Acute (7) Obesity hypoventilation syndrome Status: Chronic (8) On total parenteral nutrition (TPN) Status: Acute (9) BARYAN treated with BiPAP Status: Chronic (10) Smoker Status: Chronic ALEIDA LICEA DO Dec 14, 2018 11:02
--- NOTE | 2018-12-14 11:54 | Physical Therapy Daily Note ---
PT Daily Note-Current Subjective Pt sitting in W/C upon arrival. Pt agrees to PT although reports not feeling well. Pain Numeric Pain Scale: 8 Location: Left Location Body Site: Ankle Pain Description: Ache, Tightness Mental Status Patient Orientation: Person, Place, Time, Situation Attachments: Oxygen, IV Transfers Therapy Code Descriptions/Definitions Functional [place] Measure: 0=Not Assessed/NA 4=Minimal Assistance 1=Total Assistance 5=Supervision or Setup 2=Maximal Assistance 6=Modified [place] 3=Moderate Assistance 7=Complete [place] Therapy Quality Codes: 6 Independent with activity with or without an assistive device 5 Patient requires set up or clean up by helper. Patient completes activity by themselves 4 Supervision or touching assist (CGA). [place] provide cues , steadying assist 3 The helper provides less than half the effort to complete the activity 2 The helper provides more than half the effort to complete the activity 1 Dependent. The helper does all the effort to complete an activity 7 Patient refused to complete or attempt activity 9 The patient did not perform the activity before the current illness or injury 88 Not attempted due to Medical conditions or safety concerns Scootin Sit to/from Stand: 5 Sit to Stand (QC): 5 Gait Training Gait (FIM): 2 Distance (FIM): 1=up to 49 ft Distance: 20' Walk 10 feet (QC): 5 Gait Level of Assist: 5 Gait Persons Needed: 2 Gait Assistive Device: FWW 2nd person only needed to assist with IV pole & O2. Pt walks with slow yue, fatigues easily. Wheelchair Training Does the Pt Use a Wheelchair?: Yes Wheelchair (FIM): 5 Wheelchair Distance: 3=150 ft Distance: 150' Wheelchair Level of Assist: 5 Wheel 50 ft with 2 turns (QC): 5 Wheel 150 ft (QC): 5 Type of Wheelchair: Manual Exercises Seated Therapy Exercises: Ankle pumps, Long arc quads, Hip flexion, Kicking activity, Hamstring Curls, Glut set Seated Reps: 20 Treatments Pt transfers from W/C to standing using FWW. Pt ambulates in room to door before asking to rest in W/C. Pt propels W/C in hallway before arriving at Therapy Gym. Pt completes Seated EX in W/C before OT arriving for start of OT tx. Pt has all needs met at end of tx. Assessment Current Status: Fair Progress Pt reports not feeling well again today, very fatigued. Pt attempts to complete tasks but fatigues quickly, needing RB. PT Short Term Goals Short Term Goals Time Frame: Dec 15, 2018 Transfers (B,C,W/C) (FIM): 4 Gait (FIM): 4 Distance (FIM): 3=150 ft Gait Assistive Device: FWW PT Women'S Apparel Salesperson Goals Mcc Goals PT Mcc Goals Time Frame: Dec 29, 2018 Transfers (B,C,W/C) (FIM): 6 Sit to Lying (QC): 6 Lying-Sitting on Side/Bed(QC): 6 Sit to Stand (QC): 6 Rollin Roll Left to Right (QC): 6 Chair/Aqf-js-Awwja Xfer(QC): 6 Car Transfer (QC): 6 Does the Patient Walk: Yes Gait (FIM): 6 Gait distance (FIM): 3=150 ft Walk 10 feet (QC): 6 Walk 10ft-Uneven Surface(QC): 6 Walk 50ft with 2 Turns (QC): 6 Walk 150 ft (QC): 6 Gait Assistive Device: FWW Does the Pt use WC or Scooter?: No Stairs (FIM): 5 # of Steps: 4 1 Step (curb) (QC): 6 4 Steps (QC): 6 12 Steps (QC): 9 Picking up an Object (QC): 9 PT Plan Problem List Problem List: Activity Tolerance, Functional Strength, Safety, Gait Treatment/Plan Treatment Plan: Continue Plan of Care Treatment Plan: Bed Mobility, Education, Functional Activity Juan F, Functional Strength, Group Therapy, Gait, Safety, Therapeutic Exercise, Transfers Treatment Duration: Dec 29, 2018 Frequency: At least 5 of 7 days/Wk (IRF) Estimated Hrs Per Day: 1.5 hours per day Patient and/or Family Agrees t: Yes Safety Risks/Education Patient Education: Gait Training, Transfer Techniques, Correct Positioning, W/C Management, Safety Issues Teaching Recipient: Patient Teaching Methods: Discussion Response to Teaching: Verbalize Understanding Time/GCodes Time In: 815 Time Out: 900 Total Billed Treatment Time: 45 Total Billed Treatment 1, WCH (15m), EX (20m) & FA (10m) MIKI ARZOLA NURSERY MANAGER Dec 14, 2018 11:54
--- NOTE | 2018-12-14 12:43 | Speech Therapy Daily Note ---
Speech Daily Progress Note Subjective Date Seen by Provider: Dec 14, 2018 Time Seen by Provider: 00:30 Patient was sitting up in her chair waiting on her lunch when I entered her room. Objective The patient utilizes directions for intake of liquids of small sips with 90% and minimal cues. Assessment Assessment Current Status: Good Progress Treatment Plan Continue Plan of Care Communication Comprehension: 7 Expression: 7 Social Cognition Social Interaction: 7 Problem Solvin Memory: 6 Speech Short Term Goals Short Term Goals Short Term Goals 1) The patient will tolerate least restrictive diet level without s/s of aspiration at 90% or greater. 2) The patient will utilize compensatory strategies as trained for safe oral intake at 90% or greater given minimal verbal cues. Speech Fci Goals Foil Operator Goals The patient will maintain adequate nutrition/hydration via safe effective swallow function. Speech-Plan Patient/Family Goals Patient/Family Goals: The patient plans on moving in to assisted living when she is able post rehab. Treatment Plan Speech Therapy Treatment Plan: Continue Plan of Care The patient has made good progress with her oral intake. Treatment Duration: Dec 16, 2018 Frequency: 5 times per week Estimated Hrs Per Day: .25 hour per day Rehab Potential: Good Barriers to Learning: Patient has a complex medical status. Pt/Family Agrees to Plan: Yes Safety Risks/Education Teaching Recipient: Patient Teaching Methods: Demonstration, Discussion Response to Teaching: Verbalize Understanding, Return Demonstration Education Topics Provided: Safety strategies Time Speech Therapy Time In: 11:30 Speech Therapy Time Out: 12:00 Total Billed Time: 30 Billed Treatment Time 1, SADIE ANTHONY Carvalho Dec 14, 2018 12:43
[2018-12-14 14:53] VITALS: BP 97/57
[2018-12-14] MEDS: ENOXAPARIN 60 MG/0.6 ML (LOVENOX) SYR SC SCH ×2 (14:55→22:26)
--- NOTE | 2018-12-14 15:04 | Therapy Group Daily Note ---
Therapy Daily Group Note Patient Education Topic Other List Below (Memory) Exercises LE Seated Exercise, UE Exercise Session Ratio (pt:therapist): 4:1 Goal of Session: Memory Strategies, UE/LE Strengthing Goal Met for this Session: Yes Pt Benefit of Group: Contributions to Others, Increased Functional Strength, Improved Cognition, Recognition of Peers, Socialization Other/Notes Pt transported via w/c to OT group. Group consisted of introductions (name, place living, worst thing forgot then remembered), socialization, seated UE/LE seated exercises, review of ARU, memory activity/exercises and education on memory strategies. Pt introduced self appropriately and actively listened to peers. Pt was able to participate in group effectively and engaged in peer conversations. Memory activity completed and pt was able to match 2 of 2 withou t difficulty. Pt tolerated UE/LE seated exercises well, 1 set 10 reps of each exercise. Pt acknowledged understanding of educational topic verbally by giving personal strategies and activities to strengthen memory. After therapy, pt lying in bed with call light/phone in reach. All needs met in room. Start Time: 13:00 Stop Time: 14:20 Total Billed Treatment Time: 80 Total Billed Treatment 1-GRP CEDRIC DURANT Dec 14, 2018 15:04
--- NOTE | 2018-12-14 15:41 | NUR ---
TABLE TENDER met with patient to review team conference summary. As patient continues to require standby assist to min assist for transfers, min assist for ADLs, standby assist for grooming, ambulating only short distances, and continues to require wound management via wound VAC, team has recommended patient be reevaluated at next team conference on 911. Patient continues to make progress; however, progress is slow. Patient remains interested in assisted living placement at hospital discharge. TABLE TENDER contacted patient's first preference of [facility]; however, following review with regional team, they are unable to accommodate a wound VAC. TABLE TENDER will continue to follow to determine if wound VAC will be needed at discharge versus the need to inquire at other facilities. Patient is agreeable to reevaluate evaluate progress next week. TABLE TENDER will continue to follow.
--- NOTE | 2018-12-14 16:13 | Progress Note ---
Subjective Date Seen by a Provider: Dec 14, 2018 Time Seen by a Provider: 15:00 Subjective/Events-last exam doing ok. no new complaints. tolerating diet. no fever/chills. wound VAC intact, decreasing size abd wall opening. Objective Exam Vital Signs Date Time Temp Pulse Resp B/P (MAP) Pulse Ox O2 Delivery O2 Flow Rate FiO2 12/14/18 14:53 50 97/57 (70) 95 2.00 12/14/18 08:42 85 116/68 (84) 12/14/18 08:12 93 Nasal Cannula 2.00 12/14/18 05:50 99.9 84 18 117/76 (90) 96 High Flow N/C 2.00 12/13/18 20:00 High Flow N/C 2.00 12/13/18 19:41 92 Nasal Cannula 2.00 12/13/18 17:08 99.9 84 18 117/76 (90) 96 Nasal Cannula 2.00 I & O 12/14/18 07:00 Intake Total 2440 ml Balance 2440 ml Capillary Refill : General Appearance: No Apparent Distress HEENT: PERRL/EOMI Neck: Full Range of Motion Respiratory: Decreased Breath Sounds, Rhonci Cardiovascular: Regular Rate, Rhythm Extremity: Normal Capillary Refill Neurologic/Psychiatric: Alert, Oriented x3 Skin: Normal Color Lymphatic: No Adenopathy Results Lab Laboratory Tests 12/13/18 18:32: Glucometer 190H 12/13/18 20:37: Glucometer 164H 12/14/18 05:30: Glucometer 135H 12/14/18 10:59: Glucometer 224H 12/14/18 15:59: Glucometer 243H Assessment/Plan Assessment/Plan Assess & Plan/Chief Complaint s/p recurrent inc hernia repair with exacerbation COPD, exacerbation CHF, hypergylemia and developement enterocutaneous fistula. cont current care. will continue iv abx until fistula closed. cont octreotide as well. trial of wound vac to fistula and open abd wound. continue plan for IRU for eventual independence. Clinical Quality Measures DVT/VTE Risk/Contraindication: Risk Factor Score Per Nursin RFS Level Per Nursing on Admit: 4+=Very High WENDI ELIZABETH MD Dec 14, 2018 16:13
--- NOTE | 2018-12-14 16:29 | NUR ---
GRAIN SPOUTER met with patient to review Team Conference Summary. As patient continues to require min-SBA for transfers, min A for ADL's, ambulating only short distances, wound management via wound vac and is making progress, but slowly. Team has recommended patient be re-evaluated at next Team Conference on 12/21. GRAIN SPOUTER will continue to follow.
[2018-12-14 17:25] VITALS: BP 110/71
--- NOTE | 2018-12-14 19:05 | NUR ---
bedside report received from LONI JETT, assume care of pt
--- NOTE | 2018-12-14 19:12 | NUR ---
Spoke to Dr. Olvera regarding stop date on Zosyn. Stop date is 12/19/18, Dr. Olvera approves of stop date.
[2018-12-14 21:05] VITALS: BP 101/68
--- NOTE | 2018-12-14 21:10 | NUR ---
c/o pain level 7/10 on numeric scale, Ultram 50mg po given pt refused Colace & Senokot pt refused Lopressor because b/p 101/68
--- NOTE | 2018-12-14 21:14 | NUR ---
assessments & interventions completed, see assessments & interventions
--- NOTE | 2018-12-14 21:58 | NUR ---
rates pain level 3/10 on numeric scale
--- NOTE | 2018-12-14 22:02 | NUR ---
meter readers supervisor james requesting I call trademark affixer senior reservations agent to discontinue telemetry on pt to use on chest pain in ER pt [address]
--- NOTE | 2018-12-14 22:08 | NUR ---
DR.KHALID sigala with discontinuing tele
--- NOTE | 2018-12-14 22:20 | NUR ---
PAT structural mill supervisor brought tele unit not transmitting to ICU but we can look at monitor screen to check rhythm
[2018-12-15] MEDS: ACETAMINOPHEN 325 MG TABLET PO PRN ×2 (00:18→13:16)
--- NOTE | 2018-12-15 00:18 | NUR ---
c/o pain level 8/10 on numeric scale, Tylenol 650mg po given
--- NOTE | 2018-12-15 01:00 | NUR ---
still rates pain level 6/10 to lt foot, rubbed foot & gave pt warm blanket
--- NOTE | 2018-12-15 01:30 | NUR ---
states warm blanket helped
[2018-12-15] MEDS: PIPERACILLIN/TAZOBACTAM (BULK) 4.5 GM in NS (IVPB) 100 ML IV SCH ×3 (02:33→18:30)
[2018-12-15] MEDS: OCTREOTIDE INJECTION 500 MCG in NS (IVPB) 99 ML IV SCH ×3 (02:40→21:12)
[2018-12-15] MEDS: CATHETER FLUSH 10 ML SYR IV SCH ×3 (04:30→22:01)
[2018-12-15 05:45] VITALS: BP 120/81
[2018-12-15] MEDS: inSUlin ASPART (NovoLOG) 1 UNIT/0.01 ML (CHARGE PER UNIT) SC SCH ×4 (06:00→21:59)
--- NOTE | 2018-12-15 07:07 | NUR ---
bedside report given to BESS JETT
[2018-12-15] MEDS: MAGNESIUM OXIDE (MAG-OX)400 MG TAB PO SCH (08:12)
[2018-12-15] MEDS: DULoxetine 30 MG (CYMBALTA) CAP PO SCH (08:12)
[2018-12-15] MEDS: FAMOTIDINE 20 MG (PEPCID) TABLET PO SCH ×2 (08:13→20:40)
[2018-12-15] MEDS: amLODIPine 10 MG (NORVASC) TAB PO SCH (08:13)
[2018-12-15] MEDS: OMEGA 3 (FISH OIL) 1000 MG CAP PO SCH (08:13)
[2018-12-15] MEDS: FLUoxetine HCL 20 MG (PROzac) CAP PO SCH (08:13)
[2018-12-15] MEDS: VITAMIN D3 5,000 UNITS (CHOLECALCIFEROL ) CAPSULE PO SCH (08:13)
[2018-12-15] MEDS: KCL 10 MEQ TAB (MICRO K) PO SCH ×2 (08:13→20:40)
[2018-12-15] MEDS: LINAGLIPTIN (TRADJENTA) 5 MG TABLET PO SCH (08:13)
[2018-12-15] MEDS: meTOprolol TARTRATE 25 MG (LOPRESSOR) TABLET PO SCH ×3 (08:14→20:40)
[2018-12-15] MEDS: FUROSEMIDE 20 MG (LASIX) TAB PO SCH (08:14)
[2018-12-15] MEDS: lisINopril 20 MG (PRINIVIL) TABLET PO SCH (08:14)
[2018-12-15] MEDS: NICOTINE PATCH REMOVAL TP SCH (08:16)
[2018-12-15] MEDS: NICOTINE 21 MG (NICODERM) PATCH TD SCH (08:16)
[2018-12-15] MEDS: SENNA W/DOCUSATE (SENOKOT S) TABLET PO SCH ×2 (08:17→21:00)
[2018-12-15] MEDS: DOCUSATE SODIUM 100 MG (COLACE) CAP PO SCH ×2 (08:17→21:00)
--- NOTE | 2018-12-15 09:00 | NUR ---
CONTINUED PAIN IN LEFT LEG AND MEDICATED WITH ULTRAM. HAD A HARD TIME GOING TO SLEEP LAST NIGHT BECAUSE OF LEG PAIN, BUT THEN SLEPT WELL. STATES NICODERM PATCH AND PLANS TO STOP SMOKING UPON DC. UPON LOOKING AT INDUCTION COORDINATION POWER ENGINEER, IS IN SR.
[2018-12-15] MEDS: RT-ADVAIR HFA 115/21 MCG PER PUFF IH SCH ×2 (09:12→18:40)
--- NOTE | 2018-12-15 09:24 | PM&R Progress Note ---
Subjective HPI/CC On Admission Date Seen by Provider: Dec 15, 2018 Time Seen by Provider: 09:00 Chief complaint: Disuse myopathy. HPI: This is a 63yoWF [facility] Pt known to me from last week hospital admission when she required intubation for acute on chronic respiratory failure with obesity-hypoventilation syndrome following hernia repair. She was able to be extubated without complication and continued to be on high flow oxygen and had suffered these issues following an uncomplicated ventral hernia surgery. Due to her morbid obesity and likely chronic CO2 retention she went into respiratory failure, had significant difficulties with multisystem organ dysfunction and was eventually able to move down to fourth floor but repeat CT scam obtained due to elevated white count per Dr. Olvera showed some sort of fistula. 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 She remained on TPN, clear liquid diet only and IV antibiotics to help heal that area. At this current time, the Pt is denying any pain and is getting around better since she was living independently and ambulating at home. The goal is to return to near prior level of function and be able to return back to independent level of living. Subjective/Events-last exam Nicotine patch is working well for her and she will want to complete smoking cessation while she is in the hospital. Left leg is still bothering her, Ultram is being given and she wants something a little stronger but increasing narcotics will not be successful for radiculopathy and will cause more gastrointestinal problems so that will not be changed. Dr. Silva put her on telemetry, it showed Bigeminy when she was having some palpitations. Used CPAP last night. Loose stools noted. Lovenox maintained but it is causing increased bruising. Slept well last night. A warm blanket on her left leg seems to help. Check meds and labs Conferred with RN Reviewed therapy notes Overall improving status Maintain on IV antibiotics Review of Systems General: Fatigue Musculoskeletal: back pain, leg pain Objective Exam Vital Signs Vital Signs Date Time Temp Pulse Resp B/P (MAP) Pulse Ox O2 Delivery O2 Flow Rate FiO2 12/15/18 18:40 93 Nasal Cannula 2.00 12/15/18 15:36 99.4 81 16 107/73 (84) Capillary Refill : General Appearance: No Apparent Distress, WD/WN HEENT: PERRL/EOMI, Normal ENT Inspection, Pharynx Normal, Moist Mucous Membranes Neck: Full Range of Motion, Non Tender, Supple Respiratory: No Accessory Muscle Use, No Respiratory Distress Cardiovascular: Regular Rate, Rhythm, No Edema, No Gallop, No JVD, No Murmur, Normal Peripheral Pulses Gastrointestinal: Normal Bowel Sounds, No Organomegaly, No Pulsatile Mass, Soft, Tenderness, Other (fistula) Back: Normal Inspection, No CVA Tenderness, No Vertebral Tenderness Extremity: Normal Capillary Refill, Normal Range of Motion, No Calf Tenderness, No Pedal Edema, Other (No redness, warmth, pain, or swelling of the left extremity.) Neurologic/Psychiatric: Alert, Oriented x3, No Motor/Sensory Deficits, Normal Mood/Affect, heating equipment installer II-XII Norm as Tested, Motor Weakness (generalized lower legs) Skin: Normal Color, Warm/Dry Lymphatic: No Adenopathy Results/Procedures Lab Patient resulted labs reviewed. FIM Transfers Therapy Code Descriptions/Definitions Functional [place] Measure: 0=Not Assessed/NA 4=Minimal Assistance 1=Total Assistance 5=Supervision or Setup 2=Maximal Assistance 6=Modified [place] 3=Moderate Assistance 7=Complete [place] Therapy Quality Codes: 6 Independent with activity with or without an assistive device 5 Patient requires set up or clean up by helper. Patient completes activity by themselves 4 Supervision or touching assist (CGA). [place] provide cues , steadying assist 3 The helper provides less than half the effort to complete the activity 2 The helper provides more than half the effort to complete the activity 1 Dependent. The helper does all the effort to complete an activity 7 Patient refused to complete or attempt activity 9 The patient did not perform the activity before the current illness or injury 88 Not attempted due to Medical conditions or safety concerns Transfers (B, C, W/C) (FIM): 4 (Pt requires assist manuvering drain, oxygen, and IV pole. CGA assist while standing. ) Scootin Rollin Roll Left to Right (QC): 6 Supine to/from Sit: 4 Sit to/from Stand: 5 Sit to Lying (QC): 6 Sit to Stand (QC): 5 Chair/Khj-ax-Rchlf Xfer(QC): 6 Bed to/from Chair: 6 Car Transfer (QC): 88 (Unsafe to attempt car transfer at this time. ) Gait Training Does the Patient Walk?: Yes Gait (FIM): 2 Distance (FIM): 1=up to 49 ft Distance: 20' Walk 10 feet (QC): 5 Walk 50 ft with 2 Turns(QC): 6 Walk 150 ft (QC): 88 Walking 10ft/uneven surface-QC: 88 Gait Level of Assist: 5 Gait Persons Needed: 2 Gait Assistive Device: FWW Wheelchair Training Does the Pt Use a Wheelchair?: Yes Wheelchair (FIM): 5 Wheelchair Distance: 3=150 ft Distance: 150' Wheelchair Level of Assist: 5 Wheel 50 ft with 2 turns (QC): 5 Wheel 150 ft (QC): 5 Type of Wheelchair: Manual Stair Training Stair Training: Handrails/: uses walker Stairs (FIM): 1 #of Steps: 1 1 Step (curb) (QC): 5 4 Steps (QC): 88 12 Steps (QC): 88 Stairs: Pattern: Step to Level of Assist: 5 Balance Picking up an Object (QC): 88 Mental Status/Objective Comprehension: 7 Expression: 7 Social Interaction: 7 Problem Solvin Memory: 6 ADL-Treatment Groomin Oral Hygiene (QC): 5 Bathin (Pt required long handled sponge to wash lower legs. Pt able to wash upper body using wash cloth by self. Pt able to rinse and dry by self, SBA while standing. ) Bathing Location: L Arm, R Arm, L Upper Leg, R Upper Leg, L Lower Leg (including foot), R Lower Leg (including foot), Chest, Abdomen, Buttocks, Perineal Area Shower/Bathe Self (QC): 4 Upper Extremity Dressin (Pt required assist to manipulate tubing through to [facility] gown. Pt able required assist to thread tubing through shirt. Pt able to thread head and arms through sleeves to don by self. ) Upper Body Dressing (QC): 4 Lower Extremity Dressin (Pt able to don briefs above knee by self. Pt required assist to manipulate tubing and adjust briefs on backside. Pt able to adjust briefs on frontside. SBA assist while standing. ) Lower Body Dressing (QC): 4 On/Off Footwear (QC): 3 Toiletin (Pt able to cleanse self after voiding. Pt required min assist to with gown due to tubing. CGA while standing.) Toileting Hygiene (QC): 4 Toilet/Commode Transfer: 4 (Pt requires grabbar. Pt requires assist to manuever drain tubing, IV pole and oxygen. SBA assist for safety while stand to sit. ) Toilet Transfer (QC): 5 Shower: 5 (Pt required grab bar and shower bench, SBA assist for safety. ) Assessment/Plan Assessment and Plan Assess & Plan/Chief Complaint Plan: IRF protocol OOB in chair most of day when not in therapy Advanced diet doing well Right flank hematoma now resolved Lovenox maintained O2 maintained and weaning well now at 2L/min PLOF was ambulating at home Ostomy care per surgical service to help with leakage by placing wound vac which is tolerated well Left leg radiculopathy evaluated and will managed conservatively Monitor labs prn Pet pass was successful Psych evaluation for depression is appreciated and I changed meds to her recs. Left leg radiculopathy managed conservatively Replace potassium PO BID (1) Myopathy (2) COPD (chronic obstructive pulmonary disease) Status: Chronic Qualifiers: COPD type: unspecified COPD Qualified Codes: J44.9 - Chronic obstructive pulmonary disease, unspecified (3) Hypokalemia Status: Acute (4) Diabetes mellitus, type 2 Status: Chronic Qualifiers: Diabetes mellitus oysterman insulin use: with fci use Diabetes mellitus complication status: with other specified complication Qualified Cod es: E11.69 - Type 2 diabetes mellitus with other specified complication; Z79.4 - assisted (current) use of insulin (5) Ventilator dependence Status: Resolved Resolution Date/Time: 11/25/18 @ 20:44 (6) Enterocutaneous fistula Status: Acute (7) Obesity hypoventilation syndrome Status: Chronic (8) On total parenteral nutrition (TPN) Status: Acute (9) BRAYAN treated with BiPAP Status: Chronic (10) Smoker Status: Chronic ALEIDA LICEA DO Dec 15, 2018 09:24
--- NOTE | 2018-12-15 09:47 | Physical Therapy Daily Note ---
PT Daily Note-Current Subjective Pt laying Supine in bed upon arrival. Pt agrees to PT, reporting slept better although difficult to keep awake during tx. Pain Numeric Pain Scale: 8 Location: Left Location Body Site: Ankle Pain Description: Ache, Tightness Mental Status Patient Orientation: Person, Place, Time, Situation Attachments: Oxygen, IV Transfers Therapy Code Descriptions/Definitions Functional [place] Measure: 0=Not Assessed/NA 4=Minimal Assistance 1=Total Assistance 5=Supervision or Setup 2=Maximal Assistance 6=Modified [place] 3=Moderate Assistance 7=Complete [place] Therapy Quality Codes: 6 Independent with activity with or without an assistive device 5 Patient requires set up or clean up by helper. Patient completes activity by themselves 4 Supervision or touching assist (CGA). [place] provide cues , steadying assist 3 The helper provides less than half the effort to complete the activity 2 The helper provides more than half the effort to complete the activity 1 Dependent. The helper does all the effort to complete an activity 7 Patient refused to complete or attempt activity 9 The patient did not perform the activity before the current illness or injury 88 Not attempted due to Medical conditions or safety concerns Scootin Supine to/from Sit: 5 Sit to/from Stand: 5 Sit to Stand (QC): 5 Exercises Supine Ex: Ankle pumps, Quad Set, Glut sets, Heel Slides, Hip abd/add Supine Reps: 20 Seated Therapy Exercises: Ankle pumps, Long arc quads, Hip flexion, Kicking activity, Hamstring Curls Seated Reps: 20 Treatments Pt completes Supine Ex in bed before transferring to EOB then standing. Pt uses restroom then returns to W/C for rest. Pt then completes Seated Ex in W/C. Pt resting at end of tx with all needs met, call light in hand. Assessment Current Status: Fair Progress Pt fatigues easy and very sleepy today. Pt reports sleeping better although pain has bothered pt. PT Short Term Goals Short Term Goals Time Frame: Dec 15, 2018 Transfers (B,C,W/C) (FIM): 4 Gait (FIM): 4 Distance (FIM): 3=150 ft Gait Assistive Device: FWW Wheelchair Distance: 150' PT Usp Goals Usp Goals PT Usp Goals Time Frame: Dec 29, 2018 Transfers (B,C,W/C) (FIM): 6 Sit to Lying (QC): 6 Lying-Sitting on Side/Bed(QC): 6 Sit to Stand (QC): 6 Rollin Roll Left to Right (QC): 6 Chair/Agi-jz-Tlzxh Xfer(QC): 6 Car Transfer (QC): 6 Does the Patient Walk: Yes Gait (FIM): 6 Gait distance (FIM): 3=150 ft Walk 10 feet (QC): 6 Walk 10ft-Uneven Surface(QC): 6 Walk 50ft with 2 Turns (QC): 6 Walk 150 ft (QC): 6 Gait Assistive Device: FWW Does the Pt use WC or Scooter?: No Stairs (FIM): 5 # of Steps: 4 1 Step (curb) (QC): 6 4 Steps (QC): 6 12 Steps (QC): 9 Picking up an Object (QC): 9 PT Plan Problem List Problem List: Activity Tolerance, Functional Strength, Gait Treatment/Plan Treatment Plan: Continue Plan of Care Treatment Plan: Bed Mobility, Education, Functional Activity Juan F, Functional Strength, Group Therapy, Gait, Safety, Therapeutic Exercise, Transfers Treatment Duration: Dec 29, 2018 Frequency: At least 5 of 7 days/Wk (IRF) Estimated Hrs Per Day: 1.5 hours per day Patient and/or Family Agrees t: Yes Safety Risks/Education Patient Education: Transfer Techniques, Correct Positioning, Safety Issues Teaching Recipient: Patient Teaching Methods: Discussion Response to Teaching: Verbalize Understanding Time/GCodes Time In: 900 Time Out: 945 Total Billed Treatment Time: 45 Total Billed Treatment 1, EX x2 (30m) & FA (15m) MIKI ARZOLA PTA Dec 15, 2018 09:47
[2018-12-15] MEDS: ENOXAPARIN 60 MG/0.6 ML (LOVENOX) SYR SC SCH ×2 (09:57→21:59)
--- NOTE | 2018-12-15 10:59 | Occupational Ther Daily Note ---
OT Current Status-Daily Note Subjective Pt sitting in w/c upon OT arrival. Pt agrees to therapy. Mental Status/Objective Patient Orientation: Person, Place, Time, Situation Therapy Code Descriptions/Definitions Functional [place] Measure: 0=Not Assessed/NA 4=Minimal Assistance 1=Total Assistance 5=Supervision or Setup 2=Maximal Assistance 6=Modified [place] 3=Moderate Assistance 7=Complete [place] Attachments: Central Line, Drains, Oxygen ADL-Treatment Pt washed face at sink sitting in w/c. Required assist to maneuver wound vac and IV pole into bathroom. Therapy Code Descriptions/Definitions Functional [place] Measure: 0=Not Assessed/NA 4=Minimal Assistance 1=Total Assistance 5=Supervision or Setup 2=Maximal Assistance 6=Modified [place] 3=Moderate Assistance 7=Complete [place] Therapy Quality Codes: 6 Independent with activity with or without an assistive device 5 Patient requires set up or clean up by helper. Patient completes activity by themselves 4 Supervision or touching assist (CGA). [place] provide cues , steadying assist 3 The helper provides less than half the effort to complete the activity 2 The helper provides more than half the effort to complete the activity 1 Dependent. The helper does all the effort to complete an activity 7 Patient refused to complete or attempt activity 9 The patient did not perform the activity before the current illness or injury 88 Not attempted due to Medical conditions or safety concerns Grooming (FIM): 6 (Pt sitting in w/c at sink. Pt able to brush teeth and hair at sink. ) Oral Hygiene (QC): 6 Transfers (B, C, W/C) (FIM): 6 (Pt required w/c arm rest. SBA for safety. ) Other Treatment [facility]. Pt participated in UE gross motor activity against gravity, finger dexterity and grasp/pinch then releasing to designated area to increase daily functional tasks 2x. Pt was able to tolerate extended time activities to increase tolerance. Pt requires increased time to transport in w/c due to managing wound vac, IV pole, and oxygen. Pt transferred to bed, call light and phone in reach, all pts needs met. Nrsg in room. OT Short Term Goals Short Term Goals Time Frame: Dec 08, 2018 Eating(FIM): 5 Grooming(FIM): 5 Bathing(FIM): 4 Upper Body Dressing(FIM): 4 Lower Body Dressing(FIM): 3 Toileting(FIM): 3 Transfers (B,C,W/C) (FIM): 4 Toilet/Commode Transfer(FIM): 4 Shower Transfer(FIM): 4 Additional Short Term Goals: 1-Demonstrate ADL Tasks, 2-Verbalize Unders tanding, 3-ImproveStrength/Juan F 1=Demonstrate adherence to instructed precautions during ADL tasks. 2=Patient will verbalize/demonstrate understanding of assistive devices/modifications for ADL. 3=Patient will improve strength/tolerance for activity to enable patient to perform ADL's. OT Fdc Goals Music Writer Goals Time Frame: Dec 22, 2018 Eating (FIM): 6 Eating (QC): 6 Groomin Oral Hygiene (QC): 6 Bathing(FIM): 5 Shower/Bathe Self (QC): 4 Upper Body Dressing(FIM): 5 Upper Body Dressing (QC): 4 Lower Body Dressing(FIM): 5 Lower Body Dressing (QC): 4 On/Off Footwear (QC): 4 Toileting(FIM): 6 Toileting Hygiene (QC): 6 Transfers (B,C,W/C) (FIM): 6 Toilet/Commode Transfer(FIM): 6 Toilet/Commode Transfer (QC): 6 Shower Transfer(FIM): 5 Additional Goals: 1-Demonstrate ADL Tasks, 2-Verbalize Understanding, 3-ImproveStrength/Juan F 1=Demonstrate adherence to instructed precautions during ADL tasks. 2=Patient will verbalize/demonstrate understanding of assistive devices/modifications for ADL. 3=Patient will improve strength/tolerance for activity to enable patient to perform ADL's. OT Education/Plan Discharge Recommendations Plan/Recommendations: Continue POC Treatment Plan/Plan of Care Patient would benefit from OT for education, treatment and training to promote independence in ADL's, mobility, safety and/or upper extremity function for ADL's. Plan of Care: ADL Retraining, Functional Mobility, Group Exercise/Act as Ind, UE Funct Exercise/Act Treatment Duration: Dec 22, 2018 Frequency: At least 5 of 7 days/Wk (IRF) Estimated Hrs Per Day: 1.5 hours per day Agreement: Yes Rehab Potential: Good Time/GCodes Start Time: 09:45 Stop Time: 11:00 Total Time Billed (hr/min): 75 Billed Treatment Time 1 visit- ADL 2 (30 min) EX 3 (45 min) CEDRIC DURANT Dec 15, 2018 10:59
[2018-12-15] MEDS: CATHETER FLUSH 10 ML SYR IV PRN (11:00)
--- NOTE | 2018-12-15 13:00 | NUR ---
LIKES WARM BLANKET TO LEFT FOOT.
--- NOTE | 2018-12-15 13:09 | Speech Therapy Daily Note ---
Speech Daily Progress Note Subjective Date Seen by Provider: Dec 15, 2018 Time Seen by Provider: 00:30 The patient was laying in bed eating the last of her breakfast. She states she slept much better last night. Objective The patient utilized compensatory strategies as trained at 90% with minimal cues. Assessment Assessment Current Status: Good Progress Treatment Plan Continue Plan of Care Communication Comprehension: 7 Expression: 7 Social Cognition Social Interaction: 7 Problem Solvin Memory: 6 Speech Short Term Goals Short Term Goals Short Term Goals 1) The patient will tolerate least restrictive diet level without s/s of aspiration at 90% or greater. 2) The patient will utilize compensatory strategies as trained for safe oral intake at 90% or greater given minimal verbal cues. Speech Jail Goals Jail Goals The patient will maintain adequate nutrition/hydration via safe effective swallow function. Speech-Plan Patient/Family Goals Patient/Family Goals: The patient would like to move in to assistive living post rehab, however due to her health status she will need to have some of her medical issues resolved before she will be able to. Treatment Plan Speech Therapy Treatment Plan: Continue Plan of Care The patient has progressed will with safety of oral intake. Treatment Duration: Dec 23, 2018 Frequency: 5 times per week Estimated Hrs Per Day: .25 hour per day Rehab Potential: Good Barriers to Learning: Medical status Pt/Family Agrees to Plan: Yes Safety Risks/Education Teaching Recipient: Patient Teaching Methods: Demonstration, Discussion Response to Teaching: Verbalize Understanding, Return Demonstration Education Topics Provided: Continued safety of oral intake and compensatory strategies Time Speech Therapy Time In: 08:30 Speech Therapy Time Out: 09:00 Total Billed Time: 30 Billed Treatment Time 1, ANTHONY Walton Dec 15, 2018 13:09
--- NOTE | 2018-12-15 13:17 | Progress Note ---
Subjective Date Seen by a Provider: Dec 15, 2018 Time Seen by a Provider: 11:30 Subjective/Events-last exam Patient seen with Dr. Olvera. Patient reports doing well. Tolerating therapy. Tolerating diet. Does report some burning around the wound vac site but reports is tolerable. No other complaints. Objective Exam Vital Signs Date Time Temp Pulse Resp B/P (MAP) Pulse Ox O2 Delivery O2 Flow Rate FiO2 12/15/18 09:11 93 Nasal Cannula 2.00 12/15/18 09:00 High Flow N/C 2.00 12/15/18 07:00 69 12/15/18 05:45 97.6 93 20 120/81 (94) 94 NIV CPAP 2.00 12/15/18 01:00 92 12/14/18 21:14 High Flow N/C 2.00 12/14/18 21:05 97.6 97 20 101/68 (79) 95 Nasal Cannula 2.00 12/14/18 19:14 94 Nasal Cannula 2.00 12/14/18 19:00 100 12/14/18 17:25 99.2 90 22 110/71 (84) 95 Nasal Cannula 2.00 12/14/18 15:48 85 12/14/18 14:53 50 97/57 (70) 95 2.00 I & O 12/15/18 07:00 Intake Total 1150 ml Balance 1150 ml Capillary Refill : General Appearance: No Apparent Distress, WD/WN Neck: Full Range of Motion, Normal Inspection, Supple Respiratory: Normal Breath Sounds, No Accessory Muscle Use, No Respiratory Distress Cardiovascular: Regular Rate, Rhythm, No Edema Gastrointestinal: normal bowel sounds, non tender, soft, other (Wound vac applied to wound with brown liquid drainage.) Extremity: Normal Capillary Refill, Normal Inspection, Normal Range of Motion Neurologic/Psychiatric: Alert, Oriented x3 Skin: Normal Color, Warm/Dry, Other (Mild localized erythema around wound vac site.) Results Lab Laboratory Tests 12/14/18 15:59: Glucometer 243H 12/14/18 20:31: Glucometer 164H 12/15/18 06:27: Glucometer 138H 12/15/18 11:04: Glucometer 310H Assessment/Plan Assessment/Plan Assess & Plan/Chief Complaint s/p recurrent inc hernia repair with exacerbation COPD, exacerbation CHF, hypergylemia and developement enterocutaneous fistula. cont current care. will continue iv abx until fistula closed. cont octreotide as well. may restart lovenox per surg however would try different locations. trial of wound vac to fistula and open abd wound. Clinical Quality Measures DVT/VTE Risk/Contraindication: Risk Factor Score Per Nursin RFS Level Per Nursing on Admit: 4+=Very High SUSAN WIN ENGINE COWLING INSTALLER Dec 15, 2018 13:17
--- NOTE | 2018-12-15 13:25 | Cardiology Progress Note ---
Subjective Date Seen by Provider: Dec 15, 2018 Time Seen by Provider: 13:25 Subjective/Events-last exam patient is feeling better. Having more energy today. No new complaint Review of Systems General: No Chills, No Night Sweats; Fatigue, Malaise; No Appetite, No Other HEENT: No Head Aches, No Visual Changes, No Eye Pain, No Ear Pain, No Dysphasia, No Sinus Congestion, No Post Nasal Drip, No Sore Throat, No Other Pulmonary: No Dyspnea, No Cough, No Pleuritic Chest Pain, No Other Cardiovascular: No: Chest Pain, Palpitations, Orthopnea, Paroxysmal Noc. Dyspnea, Edema, Lt Headedness, Other Objective-Cardiology Exam Last Set of Vital Signs Vital Signs 12/15/18 12/15/18 12/15/18 05:45 07:00 09:11 Temp 97.6 Pulse 69 Resp 20 B/P (MAP) 120/81 (94) Pulse Ox 93 O2 Delivery Nasal Cannula O2 Flow Rate 2.00 Capillary Refill : I&O Intake and Output 12/15/18 00:00 Intake Total 1260 ml Balance 1260 ml Intake Oral 1000 ml IV Total 260 ml # Voids 10 # Bowel Movements 4 General: Alert, Oriented X3, Cooperative HEENT: Atraumatic, PERRLA Neck: Supple, No JVD, No Thyromegaly Lungs: Clear to Auscultation, Normal Air Movement Heart: Regular Rate, Normal S1, Normal S2, No Murmurs Abdomen: Normal Bowel Sounds, Soft, No Tenderness, No Hepatosplenomegaly, No Masses Extremities: No Clubbing, No Cyanosis, No Edema, Normal Pulses, No Tenderness/Swelling Skin: No Rashes, No Breakdown, No Significant Lesion Neuro: Normal Speech, Cranial Nerves 3-12 NL Psych/Mental Status: Mental Status NL, Mood NL Results Lab Laboratory Tests Test 12/14/18 15:59 12/14/18 20:31 12/15/18 06:27 12/15/18 11:04 Range/Units Glucometer 243 H 164 H 138 H 310 H 70-110 MG/DL A/P-Cardiology Admission Diagnosis Respiratory failure COPD HTN HLP Assessment/Plan Status post respiratory failure, resolved, using C Pap on and off, Continue to monitor Enterocutaneous fistula postoperatively, 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 Kido Acute non-ST elevation myocardial infarction, poor R-wave progression in the anterior leads, probably type II myocardial infarctions due to respiratory failure, underlying coronary artery disease cannot be entirely excluded. Echocardiogram showed normal LV function. Continue with conservative management at this time, continue to monitor. Troponin level trended down, no acute EKG changes suggestive of active ischemia, conservative management at this time. Consider stress test as outpatient. Hypertension, controlled, monitor blood pressure Hyperlipidemia maintained on Lipitor, on hold at this point COPD, oxygen dependent, receiving therapy. Morbid obesity Diabetes mellitus, followed and managed by primary care physician History of tobaccoism Generalized debility/weakness. Continue to monitor. Clinical Quality Measures DVT/VTE Risk/Contraindication: Risk Factor Score Per Nursin RFS Level Per Nursing on Admit: 4+=Very High AUSTEN MARTÍNEZ MD Dec 15, 2018 13:25
--- NOTE | 2018-12-15 13:39 | Progress Note ---
[facility]VYA [facility] 12/15/18 1339: Subjective Date Seen by a Provider: Dec 15, 2018 Time Seen by a Provider: 07:30 Subjective/Events-last exam Ms. Hernandez is a 63 year old WF that presented with acute on chronic respiratory complications requiring intubation. Today her labs her blood work was normal with WBC - 6.6, HgB - 14.8, HCT - 44, and Platelet count of 159. Her sugar was 130. She is A&O x3. She had stable vital signs. She used her CPAP last night while sleeping. She had some trouble sleeping until the nurse wrapped her foot in a warm blanket, which seemed to decrease the radiculopathy experienced by her in her left LE leg. She stated that she has been progressively sleeping better without the assistance of sleeping aids. She states that she isn't having any issues voiding or stooling. She denies any SOB, Chest pain, lightheadness, N/V/D. She did state that she ran a low-grade fever yesterday that wasn't present on todays vitals. She is actively participating in OT/PT. She states that is doing ok with PT, but has complained of a decrease in strength. She also has a complaint of pain at the site of her wound vac. Upon evaluation, the site looked slightly erythematous, but otherwise normal. On abdominal exam she did have a few hard subcutaneous nodules from the site of injection for her insulin. Otherwise the rest of the exam was unremarkable. Patient also had Telemetry on for the evaluation of a slight fluttering she felt the other day. Patient seems to be in a better state of mind. She is more interactive. Focused Exam Respiratory: Normal Breath Sounds Cardiovascular: Regular Rate, Rhythm Peripheral Pulses: 2+ Radial Pulses (R), 2+ Radial Pulses (L) Skin: normal color Objective Exam Last Set of Vital Signs Vital Signs Date Time Temp Pulse Resp B/P (MAP) Pulse Ox O2 Delivery O2 Flow Rate FiO2 12/15/18 09:11 93 Nasal Cannula 2.00 12/15/18 07:00 69 12/15/18 05:45 97.6 20 120/81 (94) Capillary Refill : I&O Intake and Output 12/15/18 00:00 Intake Total 1260 ml Balance 1260 ml Intake Oral 1000 ml IV Total 260 ml # Voids 10 # Bowel Movements 4 General: Oriented X3 Heart: Regular Rate Abdomen: No Tenderness, Other Skin: No Significant Lesion Psych/Mental Status: Mental Status NL Results Lab Laboratory Tests 12/14/18 15:59: Glucometer 243H 12/14/18 20:31: Glucometer 164H 12/15/18 06:27: Glucometer 138H 12/15/18 11:04: Glucometer 310H Assessment/Plan Assessment/Plan Assess & Plan/Chief Complaint Assessment: 1. Limited Strength due to radiculopathy in L LE. 2. Decreased strength to preform PT/OT to maximum capacity 3. Sleeping better w/o medicine 4. Affect is improving 5. Pain around wound vac site as well as certain nodules present on abdomen. Plan: 1. Continue to work on seated/supine exercises to help with strength in foot to improve ambulation. 2. Continue to use CPAP at night while sleeping. 3. Wrap L LE in warm blanket to allow ease symptoms of radiculopathy to sleep 4. Continue to monitor wound vac site and abdome. Clinical Quality Measures DVT/VTE Risk/Contraindication: Risk Factor Score Per Nursin RFS Level Per Nursing on Admit: 4+=Very High DANG CONRAD DO 12/15/182051: Supervisory-Addendum Brief Verification & Attestation Participated in pt care: history, MDM, physical Personally performed: exam, history, MDM, supervision of care Care discussed with: Medical Student Procedures: n/a Results interpretation: Verified all documentation Verification and Attestation of Medical Student E/M Service A medical student performed and documented this service in my presence. I reviewed and verified all information documented by the medical student and made modifications to such information, when appropriate. I personally performed the physical exam and medical decision making. Dang Conrad Dec 15, 2018,20:[address] [facility] Dec 15, 2018 13:39 DANG CONRAD DO Dec 15, 2018 20:52
--- NOTE | 2018-12-15 13:58 | Physical Therapy Daily Note ---
PT Daily Note-Current Subjective Pt laying Supine in bed upon arrival. Pt agrees to PT. Pain Numeric Pain Scale: 8 Location: Left Location Body Site: Ankle Pain Description: Ache, Tightness Mental Status Patient Orientation: Person, Place, Time, Situation Transfers Therapy Code Descriptions/Definitions Functional [place] Measure: 0=Not Assessed/NA 4=Minimal Assistance 1=Total Assistance 5=Supervision or Setup 2=Maximal Assistance 6=Modified [place] 3=Moderate Assistance 7=Complete [place] Therapy Quality Codes: 6 Independent with activity with or without an assistive device 5 Patient requires set up or clean up by helper. Patient completes activity by themselves 4 Supervision or touching assist (CGA). [place] provide cues , steadying assist 3 The helper provides less than half the effort to complete the activity 2 The helper provides more than half the effort to complete the activity 1 Dependent. The helper does all the effort to complete an activity 7 Patient refused to complete or attempt activity 9 The patient did not perform the activity before the current illness or injury 88 Not attempted due to Medical conditions or safety concerns Exercises Supine Ex: Ankle pumps, Quad Set, Glut sets, Heel Slides, Hip abd/add Supine Reps: 20 Treatments Pt completes Supine EX in bed. Pt is fatigued and needs frequent RB. Assessment Current Status: Fair Progress Pt reports limits of fatigue and pain in L foot. PT Short Term Goals Short Term Goals Time Frame: Dec 15, 2018 Transfers (B,C,W/C) (FIM): 4 Gait (FIM): 4 Distance (FIM): 3=150 ft Gait Assistive Device: FWW Wheelchair Distance: 150' PT Residential Goals Salvage Engineering Technician Goals PT Salvage Engineering Technician Goals Time Frame: Dec 29, 2018 Transfers (B,C,W/C) (FIM): 6 Sit to Lying (QC): 6 Lying-Sitting on Side/Bed(QC): 6 Sit to Stand (QC): 6 Rollin Roll Left to Right (QC): 6 Chair/[id number] Xfer(QC): 6 Car Transfer (QC): 6 Does the Patient Walk: Yes Gait (FIM): 6 Gait distance (FIM): 3=150 ft Walk 10 feet (QC): 6 Walk 10ft-Uneven Surface(QC): 6 Walk 50ft with 2 Turns (QC): 6 Walk 150 ft (QC): 6 Gait Assistive Device: FWW Does the Pt use WC or Scooter?: No Stairs (FIM): 5 # of Steps: 4 1 Step (curb) (QC): 6 4 Steps (QC): 6 12 Steps (QC): 9 Picking up an Object (QC): 9 PT Plan Problem List Problem List: Activity Tolerance, Functional Strength, ROM Treatment/Plan Treatment Plan: Continue Plan of Care Treatment Plan: Bed Mobility, Education, Functional Activity Juan F, Functional Strength, Group Therapy, Gait, Safety, Therapeutic Exercise, Transfers Treatment Duration: Dec 29, 2018 Frequency: At least 5 of 7 days/Wk (IRF) Estimated Hrs Per Day: 1.5 hours per day Patient and/or Family Agrees t: Yes Safety Risks/Education Patient Education: Correct Positioning, Safety Issues Teaching Recipient: Patient Teaching Methods: Discussion Response to Teaching: Verbalize Understanding Time/GCodes Time In: 1330 Time Out: 1400 Total Billed Treatment Time: 30 Total Billed Treatment 1, EX x2 (30m) MIKI ARZOLA TATTOO TECHNICIAN Dec 15, 2018 13:58
[2018-12-15 15:36] VITALS: BP 107/73
--- NOTE | 2018-12-15 15:59 | NUR ---
[facility]
--- NOTE | 2018-12-15 19:10 | NUR ---
bedside report received from GHASSAN JETT, assume care of pt
[2018-12-15 20:30] VITALS: BP 106/71
--- NOTE | 2018-12-15 20:32 | NUR ---
ICU called stating need telemetry unit for med-surg pt
--- NOTE | 2018-12-15 20:40 | NUR ---
assessments & interventions completed, see assessments & interventions, pt refused [employer], rates pain 8/10 on numeric scale, Ultram 50mg po given
--- NOTE | 2018-12-15 21:25 | NUR ---
rates pain level 2/10 on numeric scale
[2018-12-16] MEDS: PIPERACILLIN/TAZOBACTAM (BULK) 4.5 GM in NS (IVPB) 100 ML IV SCH ×3 (02:39→17:52)
[2018-12-16 05:29] VITALS: BP 129/82
[2018-12-16] MEDS: CATHETER FLUSH 10 ML SYR IV SCH ×3 (06:00→20:17)
[2018-12-16] MEDS: inSUlin ASPART (NovoLOG) 1 UNIT/0.01 ML (CHARGE PER UNIT) SC SCH ×4 (06:00→20:22)
[2018-12-16] MEDS: OCTREOTIDE INJECTION 500 MCG in NS (IVPB) 99 ML IV SCH ×2 (06:14→16:05)
[2018-12-16 06:59] LABS: BASOPHILS % (AUTO) 1 % (0-10); EOSINOPHILS # (AUTO) 0.3 10^3/uL (0.0-0.3); EOSINOPHILS % (AUTO) 4 % (0-10); HEMATOCRIT 34 % (35-52); HEMOGLOBIN 10.3 G/DL (11.5-16.0); LYMPHOCYTES # (AUTO) 1.5 X 10^3 (1.0-4.0); LYMPHOCYTES % (AUTO) 24 % (12-44); MEAN CORPUSCULAR HEMOGLOBIN 27 PG (25-34); MEAN CORPUSCULAR HGB CONC 30 G/DL (32-36); MEAN CORPUSCULAR VOLUME 91 FL (80-99); MEAN PLATELET VOLUME 9.6 FL (7.4-10.4); MONOCYTES # (AUTO) 1.3 X 10^3 (0.0-1.0); MONOCYTES % (AUTO) 20 % (0-12); NEUTROPHILS # (AUTO) 3.2 X 10^3 (1.8-7.8); NEUTROPHILS % (AUTO) 51 % (42-75); PLATELET COUNT 216 10^3/uL (130-400); RED CELL DISTRIBUTION WIDTH 16.2 % (10.0-14.5); WHITE BLOOD COUNT 6.3 10^3/uL (4.3-11.0)
--- NOTE | 2018-12-16 07:11 | NUR ---
bedside report given to BESS JETT
[2018-12-16 07:32] LABS: ALANINE AMINOTRANSFERASE 13 U/L (0-55); ALBUMIN 3.2 GM/DL (3.2-4.5); ALKALINE PHOSPHATASE 75 U/L (40-136); BILIRUBIN,TOTAL 0.5 MG/DL (0.1-1.0); BUN/CREATININE RATIO 9; CALCIUM 8.9 MG/DL (8.5-10.1); CARBON DIOXIDE 29 MMOL/L (21-32); CHLORIDE 101 MMOL/L (98-107); CREATININE SERUM 0.88 MG/DL (0.60-1.30); GFR ESTIMATED > 60; GLUCOSE 128 MG/DL (70-105); POTASSIUM 3.8 MMOL/L (3.6-5.0); SODIUM 140 MMOL/L (135-145); TOTAL PROTEIN 7.3 GM/DL (6.4-8.2)
--- NOTE | 2018-12-16 07:37 | Progress Note ---
NAVYA CONTRERAS [facility] 12/16/18 0737: Subjective Date Seen by a Provider: Dec 16, 2018 Time Seen by a Provider: 06:45 Subjective/Events-last exam Today Carisa was much more active and had a better affect. Vitals are stable and O2 stat was 93 on 2L via NC. Voiding and Stooling are normal. Labs were in normal reference range, sugar was 137. ROS: Negative for CP, N/V/D, F/C Positive for SOB - short spell, Syncope Episode last night when leaving wheelchair. Patient also states that prior to hospitalization she would have syncopal episodes 5 times per week 1-5 times per day. Eating and drinking are fine. Sleeping better since being here. She has taken no aids. PT/OT are a little slow becasue she feels a little weak and tired. Objective Exam Last Set of Vital Signs Vital Signs Date Time Temp Pulse Resp B/P (MAP) Pulse Ox O2 Delivery O2 Flow Rate FiO2 12/16/18 05:29 99.7 86 18 129/82 (98) 93 High Flow N/C 2.00 Capillary Refill : I&O Intake and Output 12/16/18 00:00 Intake Total 1190 ml Balance 1190 ml Intake Oral 840 ml IV Total 350 ml # Voids 5 # Bowel Movements 1 General: Oriented X3, No Acute Distress Lungs: Clear to Auscultation, Normal Air Movement Abdomen: No Tenderness Results Lab Laboratory Tests 12/15/18 11:04: Glucometer 310H 12/15/18 15:34: Glucometer 115H 12/15/18 21:45: Glucometer 227H 12/16/18 05:22: Glucometer 137H 12/16/18 06:40: White Blood Count 6.3, Red Blood Count 3.76L, Hemoglobin 10.3L, Hematocrit 34L, Mean Corpuscular Volume 91, Mean Corpuscular Hemoglobin 27, Mean Corpuscular Hemoglobin Concent 30L, Red Cell Distribution Width 16.2H, Platelet Count 216, Mean Platelet Volume 9.6, Neutrophils (%) (Auto) 51, Lymphocytes (%) (Auto) 24, Monocytes (%) (Auto) 20H, Eosinophils (%) (Auto) 4, Basophils (%) (Auto) 1, Neutrophils # (Auto) 3.2, Lymphocytes # (Auto) 1.5, Monocytes # (Auto) 1.3H, Eos inophils # (Auto) 0.3, Basophils # (Auto) 0.0 Assessment/Plan Assessment/Plan Assess & Plan/Chief Complaint Assessment: 1. Limited Strength due to radiculopathy in L LE. 2. Decreased strength to preform PT/OT to maximum capacity 3. Sleeping better w/o medicine 4. Affect is improving 5. Pain around wound vac site as well as certain nodules present on abdomen. Plan: 1. Continue to work on seated/supine exercises to help with strength in foot to improve ambulation. 2. Continue to use CPAP at night while sleeping. 3. Wrap L LE in warm blanket to allow ease symptoms of radiculopathy to sleep 4. Continue to monitor wound vac site and abdome. Clinical Quality Measures DVT/VTE Risk/Contraindication: Risk Factor Score Per Nursin RFS Level Per Nursing on Admit: 4+=Very High ALEIDA LICEA DO 12/17/18 0823: Supervisory-Addendum Brief Verification & Attestation Participated in pt care: history, MDM, physical Personally performed: exam, history, MDM, supervision of care Care discussed with: Medical Student Procedures: n/a Results interpretation: Verified all documentation Verification and Attestation of Medical Student E/M Service A medical student performed and documented this service in my presence. I reviewed and verified all information documented by the medical student and made modifications to such information, when appropriate. I personally performed the physical exam and medical decision making. Aleida Licea Dec 17, 2018,08:23 NAVYA CONTRERAS [facility] Dec 16, 2018 07:37 ALEIDA LICEA DO Dec 17, 2018 08:23
[2018-12-16 07:43] LABS: ANISOCYTOSIS SLIGHT; BAND NEUTROPHILS 3 %; BASOPHILS % (MANUAL) 1 %; EOSINOPHILS % (MANUAL) 4 %; LYMPHOCYTES % (MANUAL) 21 %; MONOCYTES % (MANUAL) 21 %; NEUTROPHILS % (MANUAL) 50 %; POLYCHROMASIA SLIGHT
[2018-12-16] MEDS: KCL 10 MEQ TAB (MICRO K) PO SCH ×2 (08:12→20:16)
[2018-12-16] MEDS: OMEGA 3 (FISH OIL) 1000 MG CAP PO SCH (08:12)
[2018-12-16] MEDS: VITAMIN D3 5,000 UNITS (CHOLECALCIFEROL ) CAPSULE PO SCH (08:12)
[2018-12-16] MEDS: lisINopril 20 MG (PRINIVIL) TABLET PO SCH (08:12)
[2018-12-16] MEDS: LINAGLIPTIN (TRADJENTA) 5 MG TABLET PO SCH (08:12)
[2018-12-16] MEDS: NICOTINE 21 MG (NICODERM) PATCH TD SCH (08:12)
[2018-12-16] MEDS: meTOprolol TARTRATE 25 MG (LOPRESSOR) TABLET PO SCH ×3 (08:12→20:16)
[2018-12-16] MEDS: FAMOTIDINE 20 MG (PEPCID) TABLET PO SCH ×2 (08:13→20:16)
[2018-12-16] MEDS: FUROSEMIDE 20 MG (LASIX) TAB PO SCH (08:13)
[2018-12-16] MEDS: FLUoxetine HCL 20 MG (PROzac) CAP PO SCH (08:13)
[2018-12-16] MEDS: MAGNESIUM OXIDE (MAG-OX)400 MG TAB PO SCH (08:13)
[2018-12-16] MEDS: DULoxetine 30 MG (CYMBALTA) CAP PO SCH (08:13)
[2018-12-16] MEDS: amLODIPine 10 MG (NORVASC) TAB PO SCH (08:13)
[2018-12-16] MEDS: NICOTINE PATCH REMOVAL TP SCH (08:16)
[2018-12-16] MEDS: DOCUSATE SODIUM 100 MG (COLACE) CAP PO SCH ×2 (08:37→20:22)
[2018-12-16] MEDS: SENNA W/DOCUSATE (SENOKOT S) TABLET PO SCH ×2 (08:37→20:22)
--- NOTE | 2018-12-16 09:00 | NUR ---
STATES LEFT LEG SLOWLY IMPROVING. STATES TOLERATING DYSPHAGIA 3 DIET WELL. WAS ON RA AND SATTED 91%. O2 PUT BACK ON AT 2L.
--- NOTE | 2018-12-16 09:49 | PM&R Progress Note ---
Subjective HPI/CC On Admission Date Seen by Provider: Dec 16, 2018 Time Seen by Provider: 09:00 Chief complaint: Disuse myopathy. HPI: This is a 63yoWF [facility] Pt known to me from last week hospital admission when she required intubation for acute on chronic respiratory failure with obesity-hypoventilation syndrome following hernia repair. She was able to be extubated without complication and continued to be on high flow oxygen and had suffered these issues following an uncomplicated ventral hernia surgery. Due to her morbid obesity and likely chronic CO2 retention she went into respiratory failure, had significant difficulties with multisystem organ dysfunction and was eventually able to move down to fourth floor but repeat CT scam obtained due to elevated white count per Dr. Olvera showed some sort of fistula. 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 She remained on TPN, clear liquid diet only and IV antibiotics to help heal that area. At this current time, the Pt is denying any pain and is getting around better since she was living independently and ambulating at home. The goal is to return to near prior level of function and be able to return back to independent level of living. Subjective/Events-last exam Pt doing pretty well today Left leg radiculopathy is improved Slept a little better last night Pio has 3 more days Hematomas noted on Lovenox injections may need to change her to Eliquis Bowels are moving Up to a dysphasia 3 diet today and doing well with that Blood sugars remain stable Wound vac is in place Check meds and labs Conferred with RN Reviewed therapy notes Overall improving status Maintain on IV antibiotics Review of Systems General: Fatigue Musculoskeletal: leg pain Objective Exam Vital Signs Vital Signs Date Time Temp Pulse Resp B/P (MAP) Pulse Ox O2 Delivery O2 Flow Rate FiO2 12/17/18 06:35 94 Nasal Cannula 2.00 12/16/18 15:46 98.4 80 14 120/70 (87) Capillary Refill : General Appearance: No Apparent Distress, WD/WN HEENT: PERRL/EOMI, Normal ENT Inspection, Pharynx Normal, Moist Mucous Membranes Neck: Full Range of Motion, Non Tender, Supple Respiratory: No Accessory Muscle Use, No Respiratory Distress Cardiovascular: Regular Rate, Rhythm, No Edema, No Gallop, No JVD, No Murmur, Normal Peripheral Pulses Gastrointestinal: Normal Bowel Sounds, No Organomegaly, No Pulsatile Mass, Soft, Tenderness, Other (fistula) Back: Normal Inspection, No CVA Tenderness, No Vertebral Tenderness Extremity: Normal Capillary Refill, Normal Range of Motion, No Calf Tenderness, No Pedal Edema, Other (No redness, warmth, pain, or swelling of the left extremity.) Neurologic/Psychiatric: Alert, Oriented x3, No Motor/Sensory Deficits, Normal Mood/Affect, ham doctor II-XII Norm as Tested, Motor Weakness (generalized lower legs) Skin: Normal Color, Warm/Dry Lymphatic: No Adenopathy Results/Procedures Lab Patient resulted labs reviewed. FIM Transfers Therapy Code Descriptions/Definitions Functional [place] Measure: 0=Not Assessed/NA 4=Minimal Assistance 1=Total Assistance 5=Supervision or Setup 2=Maximal Assistance 6=Modified [place] 3=Moderate Assistance 7=Complete [place] Therapy Quality Codes: 6 Independent with activity with or without an assistive device 5 Patient requires set up or clean up by helper. Patient completes activity by themselves 4 Supervision or touching assist (CGA). [place] provide cues , steadying assist 3 The helper provides less than half the effort to complete the activity 2 The helper provides more than half the effort to complete the activity 1 Dependent. The helper does all the effort to complete an activity 7 Patient refused to complete or attempt activity 9 The patient did not perform the activity before the current illness or injury 88 Not attempted due to Medical conditions or safety concerns Transfers (B, C, W/C) (FIM): 6 (Pt required w/c arm rest. SBA for safety. ) Scootin Rollin Roll Left to Right (QC): 6 Supine to/from Sit: 5 Sit to/from Stand: 5 Sit to Lying (QC): 6 Sit to Stand (QC): 5 Chair/Thn-pj-Puwoz Xfer(QC): 6 Bed to/from Chair: 6 Car Transfer (QC): 88 (Unsafe to attempt car transfer at this time. ) Gait Training Does the Patient Walk?: Yes Gait (FIM): 2 Distance (FIM): 1=up to 49 ft Distance: 20' Walk 10 feet (QC): 5 Walk 50 ft with 2 Turns(QC): 6 Walk 150 ft (QC): 88 Walking 10ft/uneven surface-QC: 88 Gait Level of Assist: 5 Gait Persons Needed: 2 Gait Assistive Device: FWW Wheelchair Training Does the Pt Use a Wheelchair?: Yes Wheelchair (FIM): 5 Wheelchair Distance: 3=150 ft Distance: 150' Wheelchair Level of Assist: 5 Wheel 50 ft with 2 turns (QC): 5 Wheel 150 ft (QC): 5 Type of Wheelchair: Manual Stair Training Stair Training: Handrails/: uses walker Stairs (FIM): 1 #of Steps: 1 1 Step (curb) (QC): 5 4 Steps (QC): 88 12 Steps (QC): 88 Stairs: Pattern: Step to Level of Assist: 5 Balance Picking up an Object (QC): 88 Mental Status/Objective Comprehension: 7 Expression: 7 Social Interaction: 7 Problem Solvin Memory: 6 ADL-Treatment Groomin (Pt sitting in w/c at sink. Pt able to brush teeth and hair at sink. ) Oral Hygiene (QC): 6 Bathin (Pt required long handled sponge to wash lower legs. Pt able to wash upper body using wash cloth by self. Pt able to rinse and dry by self, SBA while standing. ) Bathing Location: L Arm, R Arm, L Upper Leg, R Upper Leg, L Lower Leg (including foot), R Lower Leg (including foot), Chest, Abdomen, Buttocks, Perineal Area Shower/Bathe Self (QC): 4 Upper Extremity Dressin (Pt required assist to manipulate tubing through to [facility] gown. Pt able required assist to thread tubing through shirt. Pt able to thread head and arms through sleeves to don by self. ) Upper Body Dressing (QC): 4 Lower Extremity Dressin (Pt able to don briefs above knee by self. Pt required assist to manipulate tubing and adjust briefs on backside. Pt able to adjust briefs on frontside. SBA assist while standing. ) Lower Body Dressing (QC): 4 On/Off Footwear (QC): 3 Toiletin (Pt able to cleanse self after voiding. Pt required min assist to with gown due to tubing. CGA while standing.) Toileting Hygiene (QC): 4 Toilet/Commode Transfer: 4 (Pt requires grabbar. Pt requires assist to manuever drain tubing, IV pole and oxygen. SBA assist for safety while stand to sit. ) Toilet Transfer (QC): 5 Shower: 5 (Pt required grab bar and shower bench, SBA assist for safety. ) Assessment/Plan Assessment and Plan Assess & Plan/Chief Complaint Plan: IRF protocol OOB in chair most of day when not in therapy Advanced diet doing well Right flank hematoma now resolved Lovenox maintained O2 maintained and weaning well now at 2L/min PLOF was ambulating at home Ostomy care per surgical service to help with leakage by placing wound vac which is tolerated well Left leg radiculopathy evaluated and will managed conservatively Monitor labs prn Pet pass was successful Psych evaluation for depression is appreciated and I changed meds to her recs. 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
--- NOTE | 2018-12-16 09:59 | Occupational Ther Daily Note ---
OT Current Status-Daily Note Subjective Pt alert laying in bed. Pt agrees to shower. No c/o pain. Mental Status/Objective Patient Orientation: Person, Place, Time, Situation Therapy Code Descriptions/Definitions Functional [place] Measure: 0=Not Assessed/NA 4=Minimal Assistance 1=Total Assistance 5=Supervision or Setup 2=Maximal Assistance 6=Modified [place] 3=Moderate Assistance 7=Complete [place] Attachments: Drains (wound vac), IV, Oxygen ADL-Treatment Pt requires increased time to perform ADLs due to maneuvering wound vac, tubing, and IV pole. Pt requires rest breaks due to decreased activity tolerance. Pt brushed hair sitting in w/c in room. Pt has demonstrated ability to brush and rinse dentures but already had them upon OT arrival. Therapy Code Descriptions/Definitions Functional [place] Measure: 0=Not Assessed/NA 4=Minimal Assistance 1=Total Assistance 5=Supervision or Setup 2=Maximal Assistance 6=Modified [place] 3=Moderate Assistance 7=Complete [place] Therapy Quality Codes: 6 Independent with activity with or without an assistive device 5 Patient requires set up or clean up by helper. Patient completes activity by themselves 4 Supervision or touching assist (CGA). [place] provide cues , steadying assist 3 The helper provides less than half the effort to complete the activity 2 The helper provides more than half the effort to complete the activity 1 Dependent. The helper does all the effort to complete an activity 7 Patient refused to complete or attempt activity 9 The patient did not perform the activity before the current illness or injury 88 Not attempted due to Medical conditions or safety concerns Bathing (FIM): 4 (Pt requires grab bar and hand held shower head. Pt required assist to wash L leg. Pt declined using long handled sponge. Pt able to wash rest of self. Pt able to rinse and dry by self. ) Bathing Location: L Arm, R Arm, R Upper Leg, R Lower Leg (including foot), Chest, Abdomen, Buttocks, Perineal Area Shower/Bathe Self (QC): 3 Upper Body (FIM): 5 (Pt required assist to doff hospital gown due to tubing. Pt able to don shirt sitting in w/c in room, requiring assist to thread tubing through shirt, set up. ) Upper Body Dressing (QC): 5 Lower Body Dressing (FIM): 4 (Pt able to doff briefs by self sitting on toilet. Pt able to don briefs and pants to waist. Pt able to manage clothing in front, required assist to manage clothing in back. SBA while standing. ) Lower Body Dressing (QC): 3 Toileting (FIM): 4 (Pt able to manage clothing properly before and after voi ding and BM. Pt required assist to cleanse self after BM. ) Toileting Hygiene (QC): 3 Transfers (B, C, W/C) (FIM): 5 (Pt ambulated to w/c using FWW, requires supervision to make sure breaks are locked. ) Toilet/Commode Transfer (FIM): 4 (Pt requires FWW and grab bar. Pt requires assist to manuever IV pole and tubing. ) Shower Transfer(FIM): 4 (Pt requires FWW, grab bar, and shower bench. Pt requires assist to manuever IV pole.) Other Treatment Pt lying in bed. Call light and phone in reach. Pts needs are met. Nrsg in room. OT Short Term Goals Short Term Goals Time Frame: Dec 08, 2018 Eating(FIM): 5 Grooming(FIM): 5 Bathing(FIM): 4 Upper Body Dressing(FIM): 4 Lower Body Dressing(FIM): 3 Toileting(FIM): 3 Transfers (B,C,W/C) (FIM): 4 Toilet/Commode Transfer(FIM): 4 Shower Transfer(FIM): 4 Additional Short Term Goals: 1-Demonstrate ADL Tasks, 2-Verbalize Understanding, 3-ImproveStrength/Juan F 1=Demonstrate adherence to instructed precautions during ADL tasks. 2=Patient will verbalize/demonstrate understanding of assistive devices/modifications for ADL. 3=Patient will improve strength/tolerance for activity to enable patient to perform ADL's. OT Clinical Pharmacist Goals Halfway Goals Time Frame: Dec 22, 2018 Eating (FIM): 6 Eating (QC): 6 Groomin Oral Hygiene (QC): 6 Bathing(FIM): 5 Shower/Bathe Self (QC): 4 Upper Body Dressing(FIM): 5 Upper Body Dressing (QC): 4 Lower Body Dressing(FIM): 5 Lower Body Dressing (QC): 4 On/Off Footwear (QC): 4 Toileting(FIM): 6 Toileting Hygiene (QC): 6 Transfers (B,C,W/C) (FIM): 6 Toilet/Commode Transfer(FIM): 6 Toilet/Commode Transfer (QC): 6 Shower Transfer(FIM): 5 Additional Goals: 1-Demonstrate ADL Tasks, 2-Verbalize Understanding, 3- ImproveStrength/Juan F 1=Demonstrate adherence to instructed precautions during ADL tasks. 2=Patient will verbalize/demonstrate understanding of assistive devices/modifications for ADL. 3=Patient will improve strength/tolerance for activity to enable patient to perform ADL's. OT Education/Plan Problem List/Assessment Assessment: Decreased Activ Tolerance Discharge Recommendations Plan/Recommendations: Continue POC Treatment Plan/Plan of Care Patient would benefit from OT for education, treatment and training to promote independence in ADL's, mobility, safety and/or upper extremity function for ADL's. Plan of Care: ADL Retraining, Functional Mobility, Group Exercise/Act as Ind, UE Funct Exercise/Act Treatment Duration: Dec 22, 2018 Frequency: At least 5 of 7 days/Wk (IRF) Estimated Hrs Per Day: 1.5 hours per day Agreement: Yes Rehab Potential: Good Time/GCodes Start Time: 09:00 Stop Time: 10:00 Total Time Billed (hr/min): 60 Billed Treatment Time 1 visit- ADL 4 (60 min) CEDRIC DURANT Dec 16, 2018 09:58
--- NOTE | 2018-12-16 10:10 | Speech Therapy Daily Note ---
Speech Daily Progress Note Subjective Date Seen by Provider: Dec 16, 2018 Time Seen by Provider: 00:30 ting in her bed, she was much more alert today. Objective Patient utilizes compensatory strategies as trained at 90% with minimal cues. Communication Comprehension: 7 Expression: 7 Social Cognition Social Interaction: 7 Problem Solvin Memory: 6 Speech Short Term Goals Short Term Goals Short Term Goals 1) The patient will tolerate least restrictive diet level without s/s of aspiration at 90% or greater. 2) The patient will utilize compensatory strategies as trained for safe oral intake at 90% or greater given minimal verbal cues. Speech Director [facility] Goals Care Home Goals The patient will maintain adequate nutrition/hydration via safe effective swallow function. Speech-Plan Patient/Family Goals Patient/Family Goals: The patient plans on returning home and eventually as her health improves, moving to assisted living. Treatment Plan Speech Therapy Treatment Plan: Continue Plan of Care Treatment Duration: Dec 23, 2018 Frequency: 5 times per week Estimated Hrs Per Day: .25 hour per day Rehab Potential: Good Barriers to Learning: Patient has a complex medical status. Pt/Family Agrees to Plan: Yes Safety Risks/Education Teaching Recipient: Patient Teaching Methods: Demonstration, Discussion Response to Teaching: Verbalize Understanding, Return Demonstration Education Topics Provided: Continued safety with strategies as trained. Time Speech Therapy Time In: 08:30 Speech Therapy Time Out: 09:00 Total Billed Time: 30 Billed Treatment Time 1, ANTHONY Walton Dec 16, 2018 10:10
[2018-12-16] MEDS: ENOXAPARIN 60 MG/0.6 ML (LOVENOX) SYR SC SCH ×2 (10:34→20:16)
[2018-12-16] MEDS: DICLOFENAC 1% GEL 100 GM (VOLTAREN) TUBE TOP PRN (10:34)
[2018-12-16] MEDS: CATHETER FLUSH 10 ML SYR IV PRN ×2 (10:35→17:53)
--- NOTE | 2018-12-16 11:15 | Cardiology Progress Note ---
Cardiology SOAP Progress Note Subjective: No chest pain or shortness of breath. Objective: I&O/Vital Signs 12/16/18 05:29 Temp 99.7 Pulse 86 Resp 18 B/P (MAP) 129/82 (98) Pulse Ox 93 O2 Delivery High Flow N/C O2 Flow Rate 2.00 12/16/18 00:00 Intake Total 880 ml Balance 880 ml Weight (Pounds): 278 Weight (Ounces): 11.2 Weight (Calculated Kilograms): 126.900183 Constitutional: AAO x 3, well-developed, well-nourished Respiratory: No accessory muscle use, No respiratory distress, No chest tender, No chest expansion is symmetric; chest is bilaterally symmetric; No lungs clear to percussion; lungs clear to auscultation; No crackles, No rhonchi, No rales, No stridor, No wheezing, No pleural rub, No other Cardiovascular: regular rate-rhythm; No irregularly irregular, No extra beats, No parasternal heave is noted, No JVD, No edema, No bradycardia, No tachycardia, No point of maximal impulse, No cardiac thrills are palpable; S1 and S2; No gallop/S3, No gallop/S4, No diastolic murmur, No systolic murmur, No friction rub, No click, No other Gastrointestional: other (wound around the umbilicus.) Extremities: normal range of motion, non-tender, normal inspection, no lower extremity edema bilateral Neurologic/Psychiatric: alert, normal mood/affect, oriented x 3 Skin: normal color Results/Procedures: Labs Laboratory Tests 12/15/18 15:34: Glucometer 115H 12/15/18 21:45: Glucometer 227H 12/16/18 05:22: Glucometer 137H 12/16/18 06:40: White Blood Count 6.3, Red Blood Count 3.76L, Hemoglobin 10.3L, Hematocrit 34L, Mean Corpuscular Volume 91, Mean Corpuscular Hemoglobin 27, Mean Corpuscular Hemoglobin Concent 30L, Red Cell Distribution Width 16.2H, Platelet Count 216, Mean Platelet Volume 9.6, Neutrophils (%) (Auto) 51, Lymphocytes (%) (Auto) 24, Monocytes (%) (Auto) 20H, Eosinophils (%) (Auto) 4, Basophils (%) (Auto) 1, Neutrophils # (Auto) 3.2, Lymphocytes # (Auto) 1.5, Monocytes # (Auto) 1.3H, Eosinophils # (Auto) 0.3, Basophils # (Auto) 0.0, Neutrophils % (Manual) 50, Lymphocytes % (Manual) 21, Monocytes % (Manual) 21, Eosinophils % (Manual) 4, Basophils % (Manual) 1, Band Neutrophils 3, Polychromasia SLIGHT, Anisocytosis SLIGHT, Sodium Level 140, Potassium Level 3.8, Chloride Level 101, Carbon Dioxide Level 29, Anion Gap 10, Blood Urea Nitrogen 8, Creatinine 0.88, Estimat Glomerular Filtration Rate > 60, BUN/Creatinine Ratio 9, Glucose Level 128H, Calcium Level 8.9, Corrected Calcium 9.5, Total Bilirubin 0.5, Aspartate Amino Transf (AST/SGOT) 14, Alanine Aminotransferase (ALT/SGPT) 13, Alkaline Phosphatase 75, Total Protein 7.3, Albumin 3.2 A/P: Assessment/Dx: Respiratory failure COPD HTN HLP Plan: Status post respiratory failure, resolved, using C Pap on and off, Continue to monitor Enterocutaneous fistula postoperatively, 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 Olvera Acute non-ST elevation myocardial infarction, poor R-wave progression in the anterior leads, probably type II myocardial infarctions due to respiratory failure, underlying coronary artery disease cannot be entirely excluded. Echocardiogram showed normal LV function. Continue with conservative management at this time, continue to monitor. Troponin level trended down, no acute EKG changes suggestive of active ischemia, conservative management at this time. Consider stress test as outpatient. Hypertension, controlled, monitor blood pressure Hyperlipidemia maintained on Lipitor, on hold at this point COPD, oxygen dependent, receiving therapy. Morbid obesity Diabetes mellitus, followed and managed by primary care physician History of tobaccoism Generalized debility/weakness. Continue to monitor. Thank you for your consultation. Please call me if you have any questions. Dale Hanley MD, FACP, FACC, FSCAI, FHRS, CCDS Interventional Cardiology Cardiac Electrophysiology Vascular Medicine and Endovascular Interventions Alaina HANLEY MD Dec 16, 2018 11:15
--- NOTE | 2018-12-16 11:21 | Progress Note ---
Subjective Date Seen by a Provider: Dec 16, 2018 Time Seen by a Provider: 11:00 Subjective/Events-last exam doing ok. no new issues. improving with PT/OT. low output fistula. Objective Exam Vital Signs Date Time Temp Pulse Resp B/P (MAP) Pulse Ox O2 Delivery O2 Flow Rate FiO2 12/16/18 05:29 99.7 86 18 129/82 (98) 93 High Flow N/C 2.00 12/15/18 20:40 High Flow N/C 2.00 12/15/18 20:30 86 20 106/71 (83) 93 High Flow N/C 2.00 12/15/18 19:00 95 12/15/18 18:40 93 Nasal Cannula 2.00 12/15/18 15:36 99.4 81 16 107/73 (84) 95 High Flow N/C 2.00 12/15/18 13:24 95 I & O 12/16/18 07:00 Intake Total 1280 ml Balance 1280 ml Capillary Refill : General Appearance: No Apparent Distress HEENT: PERRL/EOMI Neck: Full Range of Motion Respiratory: Chest Non Tender, Decreased Breath Sounds Cardiovascular: Regular Rate, Rhythm Gastrointestinal: normal bowel sounds, soft Extremity: Normal Capillary Refill Neurologic/Psychiatric: Alert, Oriented x3 Skin: Normal Color Lymphatic: No Adenopathy Results Lab Laboratory Tests 12/15/18 15:34: Glucometer 115H 12/15/18 21:45: Glucometer 227H 12/16/18 05:22: Glucometer 137H 12/16/18 06:40: White Blood Count 6.3, Red Blood Count 3.76L, Hemoglobin 10.3L, Hematocrit 34L, Mean Corpuscular Volume 91, Mean Corpuscular Hemoglobin 27, Mean Corpuscular Hemoglobin Concent 30L, Red Cell Distribution Width 16.2H, Platelet Count 216, Mean Platelet Volume 9.6, Neutrophils (%) (Auto) 51, Lymphocytes (%) (Auto) 24, Monocytes (%) (Auto) 20H, Eosinophils (%) (Auto) 4, Basophils (%) (Auto) 1, Neutrophils # (Auto) 3.2, Lymphocytes # (Auto) 1.5, Monocytes # (Auto) 1.3H, Eosinophils # (Auto) 0.3, Basophils # (Auto) 0.0, Neutrophils % (Manual) 50, Lymphocytes % (Manual) 21, Monocytes % (Manual) 21, Eosinophils % (Manual) 4, Basophils % (Manual) 1, Band Neutrophils 3, Polychromasia SLIGHT, Anisocytosis SLIGHT, Sodium Level 140, Potassium Level 3.8, Chloride Level 101, Carbon Dioxide Level 29, Anion Gap 10, Blood Urea Nitrogen 8, Creatinine 0.88, Estimat Glomerular Filtration Rate > 60, BUN/Creatinine Ratio 9, Glucose Level 128H, [place] c[place] Level 8.9, Corrected Calcium 9.5, Total Bilirubin 0.5, Aspartate Amino Transf (AST/SGOT) 14, Alanine Aminotransferase (ALT/SGPT) 13, Alkaline Phosphatase 75, Total Protein 7.3, Albumin 3.2 12/16/18 11:00: Glucometer 189H Assessment/Plan Assessment/Plan Assess & Plan/Chief Complaint s/p recurrent inc hernia repair with exacerbation COPD, exacerbation CHF, hypergylemia and developement enterocutaneous fistula. cont current care. will continue iv abx until fistula closed. cont octreotide as well. trial of wound vac to fistula and open abd wound. continue plan for IRU for eventual independence. Clinical Quality Measures DVT/VTE Risk/Contraindication: Risk Factor Score Per Nursin RFS Level Per Nursing on Admit: 4+=Very High WENDI ELIZABETH MD Dec 16, 2018 11:21
--- NOTE | 2018-12-16 11:53 | Physical Therapy Daily Note ---
PT Daily Note-Current Subjective Patient in bed pre tx, agrees to PT, has no complaints of pain at rest. Appearance Patient in wheelchair at bedside post tx with nurse call, phone, tray, all needs met. Mental Status Patient Orientation: Normal For Age Attachments: Oxygen, IV wound vac Transfers Therapy Code Descriptions/Definitions Functional [place] Measure: 0=Not Assessed/NA 4=Minimal Assistance 1=Total Assistance 5=Supervision or Setup 2=Maximal Assistance 6=Modified [place] 3=Moderate Assistance 7=Complete [place] Therapy Quality Codes: 6 Independent with activity with or without an assistive device 5 Patient requires set up or clean up by helper. Patient completes activity by themselves 4 Supervision or touching assist (CGA). [place] provide cues , steadying assist 3 The helper provides less than half the effort to complete the activity 2 The helper provides more than half the effort to complete the activity 1 Dependent. The helper does all the effort to complete an activity 7 Patient refused to complete or attempt activity 9 The patient did not perform the activity before the current illness or in jury 88 Not attempted due to Medical conditions or safety concerns Transfers (B, C, W/C) (FIM): 4 Scootin Rollin Supine to/from Sit: 4 Sit to/from Stand: 5 Bed to/from Chair: 5 Gait Training Gait (FIM): 1 Distance: 20'x3 Gait Level of Assist: 5 Gait Persons Needed: 1 Gait Assistive Device: FWW slow but steady ambulation Exercises NuStep Minutes: 15 NuStep Workload: 4 Treatments LE exercise, ambulation, bed mobility and transfers Assessment Current Status: Fair Progress Improving general mobility, patient needs extra time during transfers due to lines. PT Short Term Goals Short Term Goals Time Frame: Dec 15, 2018 Transfers (B,C,W/C) (FIM): 4 Gait (FIM): 4 Distance (FIM): 3=150 ft Gait Assistive Device: FWW Wheelchair Distance: 150' PT Halfway Goals Halfway Goals PT Ic Engineer Goals Time Frame: Dec 29, 2018 Transfers (B,C,W/C) (FIM): 6 Sit to Lying (QC): 6 Lying-Sitting on Side/Bed(QC): 6 Sit to Stand (QC): 6 Rollin Roll Left to Right (QC): 6 Chair/Jmj-pz-Eofbv Xfer(QC): 6 Car Transfer (QC): 6 Does the Patient Walk: Yes Gait (FIM): 6 Gait distance (FIM): 3=150 ft Walk 10 feet (QC): 6 Walk 10ft-Uneven Surface(QC): 6 Walk 50ft with 2 Turns (QC): 6 Walk 150 ft (QC): 6 Gait Assistive Device: FWW Does the Pt use WC or Scooter?: No Stairs (FIM): 5 # of Steps: 4 1 Step (curb) (QC): 6 4 Steps (QC): 6 12 Steps (QC): 9 Picking up an Object (QC): 9 PT Plan Problem List Problem List: Activity Tolerance, Functional Strength, Safety, Balance, Gait, Transfer, Bed Mobility, ROM Treatment/Plan Treatment Plan: Continue Plan of Care Treatment Plan: Bed Mobility, Education, Functional Activity Juan F, Functional Strength, Group Therapy, Gait, Safety, Therapeutic Exercise, Transfers Treatment Duration: Dec 29, 2018 Frequency: At least 5 of 7 days/Wk (IRF) Estimated Hrs Per Day: 1.5 hours per day Patient and/or Family Agrees t: Yes Safety Risks/Education Patient Education: Gait Training, Transfer Techniques, Correct Positioning, Safety Issues Teaching Recipient: Patient Teaching Methods: Demonstration, Discussion Response to Teaching: Reinforcement Needed Time/GCodes Time In: 1100 Time Out: 1200 Total Billed Treatment Time: 60 Total Billed Treatment 1 visit EX 15' FA 15' GT 30' KYUNG DE LUNA PT Dec 16, 2018 11:53
--- NOTE | 2018-12-16 14:01 | Occupational Ther Daily Note ---
OT Current Status-Daily Note Subjective pt laying in bed upon OT arrival. pt agreed to OT TX session with focus on HEP to increase UE Strength for daily activities. Mental Status/Objective Therapy Code Descriptions/Definitions Functional [place] Measure: 0=Not Assessed/NA 4=Minimal Assistance 1=Total Assistance 5=Supervision or Setup 2=Maximal Assistance 6=Modified [place] 3=Moderate Assistance 7=Complete [place] ADL-Treatment Therapy Code Descriptions/Definitions Functional [place] Measure: 0=Not Assessed/NA 4=Minimal Assistance 1=Total Assistance 5=Supervision or Setup 2=Maximal Assistance 6=Modified [place] 3=Moderate Assistance 7=Complete [place] Therapy Quality Codes: 6 Independent with activity with or without an assistive device 5 Patient requires set up or clean up by helper. Patient completes activity by themselves 4 Supervision or touching assist (CGA). [place] provide cues , steadying assist 3 The helper provides less than half the effort to complete the activity 2 The helper provides more than half the effort to complete the activity 1 Dependent. The helper does all the effort to complete an activity 7 Patient refused to complete or attempt activity 9 The patient did not perform the activity before the current illness or injury 88 Not attempted due to Medical conditions or safety concerns Other Treatment pt education on HEP using 2# dumbbells. pt perform all planes for shoulder, and elbow 15X2 to increase UE strength for daily activities. post session, pt laying in bed, call light with in reach.all needs met. Education OT Patient Education: Energy conservation, Home exercise program Teaching Recipient: Patient Teaching Methods: Demonstration, Discussion Response to Teaching: Return Demonstration OT Short Term Goals Short Term Goals Time Frame: Dec 08, 2018 Eating(FIM): 5 Grooming(FIM): 5 Bathing(FIM): 4 Upper Body Dressing(FIM): 4 Lower Body Dressing(FIM): 3 Toileting(FIM): 3 Transfers (B,C,W/C) (FIM): 4 Toilet/Commode Transfer(FIM): 4 Shower Transfer(FIM): 4 Additional Short Term Goals: 1-Demonstrate ADL Tasks, 2-Verbalize Understanding, 3-ImproveStrength/Juan F 1=Demonstrate adherence to instructed precautions during ADL tasks. 2=Patient will verbalize/demonstrate understanding of assistive devices/modifications for ADL. 3=Patient will improve strength/tolerance for activity to enable patient to perform ADL's. OT Long-Term Goals Long-Term Goals Time Frame: Dec 22, 2018 Eating (FIM): 6 Eating (QC): 6 Groomin Oral Hygiene (QC): 6 Bathing(FIM): 5 Shower/Bathe Self (QC): 4 Upper Body Dressing(FIM): 5 Upper Body Dressing (QC): 4 Lower Body Dressing(FIM): 5 Lower Body Dressing (QC): 4 On/Off Footwear (QC): 4 Toileting(FIM): 6 Toileting Hygiene (QC): 6 Transfers (B,C,W/C) (FIM): 6 Toilet/Commode Transfer(FIM): 6 Toilet/Commode Transfer (QC): 6 Shower Transfer(FIM): 5 Additional Goals: 1-Demonstrate ADL Tasks, 2-Verbalize Understanding, 3- ImproveStrength/Juan F 1=Demonstrate adherence to instructed precautions during ADL tasks. 2=Patient will verbalize/demonstrate understanding of assistive devices/modifications for ADL. 3=Patient will improve strength/tolerance for activity to enable patient to perform ADL's. OT Education/Plan Problem List/Assessment Assessment: Decreased Activ Tolerance, Impaired Funct Balance, Impaired I ADL's Discharge Recommendations Plan/Recommendations: Continue POC Treatment Plan/Plan of Care Treatment,Training & Education: Yes Patient would benefit from OT for education, treatment and training to promote independence in ADL's, mobility, safety and/or upper extremity function for ADL's. Plan of Care: ADL Retraining, Functional Mobility, Group Exercise/Act as Ind, UE Funct Exercise/Act Treatment Duration: Dec 22, 2018 Frequency: At least 5 of 7 days/Wk (IRF) Estimated Hrs Per Day: 1.5 hours per day Agreement: Yes Rehab Potential: Good Time/GCodes Start Time: 13:20 Stop Time: 13:50 Billed Treatment Time EX 30 minutes, 2 units GEMINI RODRIGUEZ OT Dec 16, 2018 14:01
[2018-12-16 15:46] VITALS: BP 120/70
--- NOTE | 2018-12-16 16:39 | NUR ---
LIBRARY HELPER arranged assisted living consults with [facility] and [facility] for Wednesday from 2 p.m. to 4 p.m.
[2018-12-16] MEDS: RT-ADVAIR HFA 115/21 MCG PER PUFF IH SCH (19:28)
[2018-12-17] MEDS: PIPERACILLIN/TAZOBACTAM (BULK) 4.5 GM in NS (IVPB) 100 ML IV SCH ×3 (02:13→18:39)
[2018-12-17] MEDS: CATHETER FLUSH 10 ML SYR IV SCH ×3 (02:13→21:43)
[2018-12-17] MEDS: OCTREOTIDE INJECTION 500 MCG in NS (IVPB) 99 ML IV SCH ×3 (02:14→20:46)
[2018-12-17 05:30] VITALS: BP 111/73
[2018-12-17] MEDS: inSUlin ASPART (NovoLOG) 1 UNIT/0.01 ML (CHARGE PER UNIT) SC SCH ×4 (05:33→21:41)
[2018-12-17] MEDS: RT-ADVAIR HFA 115/21 MCG PER PUFF IH SCH ×2 (06:35→19:18)
[2018-12-17] MEDS: SENNA W/DOCUSATE (SENOKOT S) TABLET PO SCH ×2 (09:00→19:48)
[2018-12-17] MEDS: DOCUSATE SODIUM 100 MG (COLACE) CAP PO SCH ×2 (09:00→19:48)
[2018-12-17] MEDS: FLUoxetine HCL 20 MG (PROzac) CAP PO SCH (09:23)
[2018-12-17] MEDS: VITAMIN D3 5,000 UNITS (CHOLECALCIFEROL ) CAPSULE PO SCH (09:23)
[2018-12-17] MEDS: amLODIPine 10 MG (NORVASC) TAB PO SCH (09:23)
[2018-12-17] MEDS: FAMOTIDINE 20 MG (PEPCID) TABLET PO SCH ×2 (09:23→21:43)
[2018-12-17] MEDS: LINAGLIPTIN (TRADJENTA) 5 MG TABLET PO SCH (09:24)
[2018-12-17] MEDS: meTOprolol TARTRATE 25 MG (LOPRESSOR) TABLET PO SCH ×3 (09:24→21:43)
[2018-12-17] MEDS: KCL 10 MEQ TAB (MICRO K) PO SCH ×2 (09:24→21:43)
[2018-12-17] MEDS: DULoxetine 30 MG (CYMBALTA) CAP PO SCH (09:24)
[2018-12-17] MEDS: OMEGA 3 (FISH OIL) 1000 MG CAP PO SCH (09:24)
[2018-12-17] MEDS: lisINopril 20 MG (PRINIVIL) TABLET PO SCH (09:24)
[2018-12-17] MEDS: FUROSEMIDE 20 MG (LASIX) TAB PO SCH (09:24)
[2018-12-17] MEDS: MAGNESIUM OXIDE (MAG-OX)400 MG TAB PO SCH (09:24)
[2018-12-17] MEDS: NICOTINE 21 MG (NICODERM) PATCH TD SCH (09:26)
[2018-12-17] MEDS: ENOXAPARIN 60 MG/0.6 ML (LOVENOX) SYR SC SCH ×2 (09:26→21:41)
[2018-12-17] MEDS: NICOTINE PATCH REMOVAL TP SCH (09:27)
--- NOTE | 2018-12-17 10:32 | Physical Therapy Daily Note ---
PT Daily Note-Current Subjective Pt agreeable to PT session this am. States she would really liking to work on walking distance most this morning Pain Numeric Pain Scale: 7 Comment: L foot Appearance Pt ordering breakfast and requesting later session upon 1st attempt for PT session. 2nd attempt, pt sitting up in w/c and agreeable to PT session, pt awake and alert. Pt requesting and assisted to bathroom during tx session. At end of session, pt sitting up in w/c with coloring books, call light, phone and bedside table within reach. Mental Status Patient Orientation: Person, Place, Time, Eyes Open, Situation Attachments: Central Line, Oxygen (2L O2/NC), Drains (wound vac), IV Transfers Therapy Code Descriptions/Definitions Functional [place] Measure: 0=Not Assessed/NA 4=Minimal Assistance 1=Total Assistance 5=Supervision or Setup 2=Maximal Assistance 6=Modified [place] 3=Moderate Assistance 7=Complete [place] Therapy Quality Codes: 6 Independent with activity with or without an assistive device 5 Patient requires set up or clean up by helper. Patient completes activity by themselves 4 Supervision or touching assist (CGA). [place] provide cues , steadying assist 3 The helper provides less than half the effort to complete the activity 2 The helper provides more than half the effort to complete the activity 1 Dependent. The helper does all the effort to complete an activity 7 Patient refused to complete or attempt activity 9 The patient did not perform the activity before the current illness or injury 88 Not attempted due to Medical conditions or safety concerns Transfers (B, C, W/C) (FIM): 5 Sit to/from Stand: 5 w/c and toilet transfers SBA, skilled verb inst for safety and hand placement x 1 episode, able to recall throughout tx session Gait Training Does the Patient Walk?: Yes Gait (FIM): 5 Distance (FIM): 3=150 ft Distance: 100, 160 Gait Level of Assist: 5 Gait Persons Needed: 2 (2nd person required for assist following with w/c, transport of wound vac, IV pole and O2 tank) Gait Assistive Device: FWW notable fatigue by end of gait distance, slight tremoring/shaking. decreased pace, step length and height Treatments transfers, safety, gait, toileting, functional mobility, activity tolerance, education, balance, strength Assessment Current Status: Good Progress PT Short Term Goals Short Term Goals Time Frame: Dec 15, 2018 Transfers (B,C,W/C) (FIM): 4 Gait (FIM): 4 Distance (FIM): 3=150 ft Gait Assistive Device: FWW Wheelchair Distance: 150' PT Project Development Manager Goals Long-Term Goals PT Long-Term Goals Time Frame: Dec 29, 2018 Transfers (B,C,W/C) (FIM): 6 Sit to Lying (QC): 6 Lying-Sitting on Side/Bed(QC): 6 Sit to Stand (QC): 6 Rollin Roll Left to Right (QC): 6 Chair/Smt-sm-Qbfaw Xfer(QC): 6 Car Transfer (QC): 6 Does the Patient Walk: Yes Gait (FIM): 6 Gait distance (FIM): 3=150 ft Walk 10 feet (QC): 6 Walk 10ft-Uneven Surface(QC): 6 Walk 50ft with 2 Turns (QC): 6 Walk 150 ft (QC): 6 Gait Assistive Device: FWW Does the Pt use WC or Scooter?: No Stairs (FIM): 5 # of Steps: 4 1 Step (curb) (QC): 6 4 Steps (QC): 6 12 Steps (QC): 9 Picking up an Object (QC): 9 PT Plan Treatment/Plan Treatment Plan: Continue Plan of Care Treatment Plan: Bed Mobility, Education, Functional Activity Juan F, Functional Strength, Group Therapy, Gait, Safety, Therapeutic Exercise, Transfers Treatment Duration: Dec 29, 2018 Frequency: At least 5 of 7 days/Wk (IRF) Estimated Hrs Per Day: 1.5 hours per day Patient and/or Family Agrees t: Yes Safety Risks/Education Patient Education: Gait Training, Transfer Techniques, Safety Issues Teaching Recipient: Patient Teaching Methods: Demonstration, Discussion Response to Teaching: Verbalize Understanding, Return Demonstration Time/GCodes Time In: 930 Time Out: 1008 Total Billed Treatment Time: 38 Total Billed Treatment 1 visit, FA x1 unit, GT x2 units GLADIS SINCLAIR PTA Dec 17, 2018 10:32
--- NOTE | 2018-12-17 12:24 | Cardiology Progress Note ---
Cardiology SOAP Progress Note Subjective: No cardiac complaints. Objective: I&O/Vital Signs 12/17/18 12/17/18 05:30 06:35 Temp 97.6 Pulse 81 Resp 20 B/P (MAP) 111/73 (86) Pulse Ox 95 94 O2 Delivery High Flow N/C Nasal Cannula O2 Flow Rate 2.00 2.00 12/17/18 00:00 Intake Total 1160 ml Balance 1160 ml Weight (Pounds): 278 Weight (Ounces): 11.2 Weight (Calculated Kilograms): 126.471949 Constitutional: AAO x 3, well-developed, well-nourished Respiratory: No accessory muscle use, No respiratory distress, No chest tender, No chest expansion is symmetric; chest is bilaterally symmetric; No lungs clear to percussion; lungs clear to auscultation; No crackles, No rhonchi, No rales, No stridor, No wheezing, No pleural rub, No other Cardiovascular: regular rate-rhythm; No irregularly irregular, No extra beats, No parasternal heave is noted, No JVD, No edema, No bradycardia, No tachycardia, No point of maximal impulse, No cardiac thrills are palpable; S1 and S2; No gallop/S3, No gallop/S4, No diastolic murmur, No systolic murmur, No friction rub, No click, No other Gastrointestional: other (wound around the umbilicus.) Extremities: normal range of motion, non-tender, normal inspection, no lower extremity edema bilateral Neurologic/Psychiatric: alert, normal mood/affect, oriented x 3 Skin: normal color Results/Procedures: Labs Laboratory Tests 12/16/18 15:37: Glucometer 157H 12/16/18 20:18: Glucometer 210H 12/17/18 05:32: Glucometer 162H 12/17/18 11:26: Glucometer 208H A/P: Assessment/Dx: Respiratory failure COPD HTN HLP Plan: Status post respiratory failure, resolved, using C Pap on and off, Continue to monitor Enterocutaneous fistula postoperatively, 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 Olvera Acute non-ST elevation myocardial infarction, poor R-wave progression in the anterior leads, probably type II myocardial infarctions due to respiratory failure, underlying coronary artery disease cannot be entirely excluded. Echocardiogram showed normal LV function. Continue with conservative management at this time, continue to monitor. Troponin level trended down, no acute EKG c hanges suggestive of active ischemia, conservative management at this time. Consider stress test as outpatient. Hypertension, controlled, monitor blood pressure Hyperlipidemia maintained on Lipitor, on hold at this point COPD, oxygen dependent, receiving therapy. Morbid obesity Diabetes mellitus, followed and managed by primary care physician History of tobaccoism Generalized debility/weakness. Continue to monitor. Thank you for your consultation. Please call me if you have any questions. Dale Hanley MD, FACP, FACC, FSCAI, FHRS, CCDS Interventional Cardiology Cardiac Electrophysiology Vascular Medicine and Endovascular Interventions Alaina HANLEY MD Dec 17, 2018 12:24
[2018-12-17] MEDS: ACETAMINOPHEN 325 MG TABLET PO PRN (13:38)
--- NOTE | 2018-12-17 15:37 | PM&R Progress Note ---
Subjective HPI/CC On Admission Date Seen by Provider: Dec 17, 2018 Time Seen by Provider: 12:30 Chief complaint: Disuse myopathy. HPI: This is a 63yoWF [facility] Pt known to me from last week hospital admission when she required intubation for acute on chronic respiratory failure with obesity-hypoventilation syndrome following hernia repair. She was able to be extubated without complication and continued to be on high flow oxygen and had suffered these issues following an uncomplicated ventral hernia surgery. Due to her morbid obesity and likely chronic CO2 retention she went into respiratory failure, had significant difficulties with multisystem organ dysfunction and was eventually able to move down to fourth floor but repeat CT scam obtained due to elevated white count per Dr. Olvera showed some sort of fistula. 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 She remained on TPN, clear liquid diet only and IV antibiotics to help heal that area. At this current time, the Pt is denying any pain and is getting around better since she was living independently and ambulating at home. The goal is to return to near prior level of function and be able to return back to independent level of living. Subjective/Events-last exam Pt doing pretty well today Left leg radiculopathy is improved but slow to recover and at night it causes her issues Slept a little better last night and her emotional state on mind is improved [place] has 2 more days Hematomas noted on Lovenox injections may need to change her to Eliquis but that seems to have stabilized so will monitor only Bowels are moving well without laxatives Up to a dysphasia 3 diet Wednesday and doing well with that Blood sugars remain stable Wound vac is in place and seems to be tolerated well Check meds and labs Conferred with RN Reviewed therapy notes Overall improving status Maintain on IV antibiotics until 12/19/18 Review of Systems General: Fatigue Objective Exam Vital Signs Vital Signs Date Time Temp Pulse Resp B/P (MAP) Pulse Ox O2 Delivery O2 Flow Rate FiO2 12/18/18 13:32 99.7 73 97/60 (72) 12/18/18 09:00 95 High Flow N/C 3.00 12/18/18 08:39 20 Capillary Refill : General Appearance: No Apparent Distress, WD/WN HEENT: PERRL/EOMI, Normal ENT Inspection, Pharynx Normal, Moist Mucous Membranes Neck: Full Range of Motion, Non Tender, Supple Respiratory: No Accessory Muscle Use, No Respiratory Distress Cardiovascular: Regular Rate, Rhythm, No Edema, No Gallop, No JVD, No Murmur, Normal Peripheral Pulses Gastrointestinal: Normal Bowel Sounds, No Organomegaly, No Pulsatile Mass, Soft, Tenderness, Other (fistula) Back: Normal Inspection, No CVA Tenderness, No Vertebral Tenderness Extremity: Normal Capillary Refill, Normal Range of Motion, No Calf Tenderness, No Pedal Edema, Other (No redness, warmth, pain, or swelling of the left extremity.) Neurologic/Psychiatric: Alert, Oriented x3, No Motor/Sensory Deficits, Normal Mood/Affect, advisory intern II-XII Norm as Tested, Motor Weakness (generalized lower legs left greater than right) Skin: Normal Color, Warm/Dry Lymphatic: No Adenopathy Results/Procedures Lab Patient resulted labs reviewed. FIM Transfers Therapy Code Descriptions/Definitions Functional [place] Measure: 0=Not Assessed/NA 4=Minimal Assistance 1=Total Assistance 5=Supervision or Setup 2=Maximal Assistance 6=Modified [place] 3=Moderate Assistance 7=Complete [place] Therapy Quality Codes: 6 Independent with activity with or without an assistive device 5 Patient requires set up or clean up by helper. Patient completes activity by themselves 4 Supervision or touching assist (CGA). [place] provide cues , steadying assist 3 The helper provides less than half the effort to complete the activity 2 The helper provides more than half the effort to complete the activity 1 Dependent. The helper does all the effort to complete an activity 7 Patient refused to complete or attempt activity 9 The patient did not perform the activity before the current illness or injury 88 Not attempted due to Medical conditions or safety concerns Transfers (B, C, W/C) (FIM): 5 Scootin Rollin Roll Left to Right (QC): 6 Supine to/from Sit: 4 Sit to/from Stand: 5 Sit to Lying (QC): 6 Sit to Stand (QC): 5 Chair/Rfy-zu-Icddd Xfer(QC): 6 Bed to/from Chair: 5 Car Transfer (QC): 88 (Unsafe to attempt car transfer at this time. ) Gait Training Does the Patient Walk?: Yes Gait (FIM): 5 Distance (FIM): 3=150 ft Distance: 100, 160 Walk 10 feet (QC): 5 Walk 50 ft with 2 Turns(QC): 6 Walk 150 ft (QC): 88 Walking 10ft/uneven surface-QC: 88 Gait Level of Assist: 5 Gait Persons Needed: 2 (2nd person required for assist following with w/c, transport of wound vac, IV pole and O2 tank) Gait Assistive Device: FWW Wheelchair Training Does the Pt Use a Wheelchair?: Yes Wheelchair (FIM): 5 Wheelchair Distance: 3=150 ft Distance: 150' Wheelchair Level of Assist: 5 Wheel 50 ft with 2 turns (QC): 5 Wheel 150 ft (QC): 5 Type of Wheelchair: Manual Stair Training Stair Training: Handrails/: uses walker Stairs (FIM): 1 #of Steps: 1 1 Step (curb) (QC): 5 4 Steps (QC): 88 12 Steps (QC): 88 Stairs: Pattern: Step to Level of Assist: 5 Balance Picking up an Object (QC): 88 Mental Status/Objective Comprehension: 7 Expression: 7 Social Interaction: 7 Problem Solvin Memory: 6 ADL-Treatment Groomin (Pt sitting in w/c at sink. Pt able to brush teeth and hair at sink . ) Oral Hygiene (QC): 6 Bathin (Pt requires grab bar and hand held shower head. Pt required assist to wash L leg. Pt declined using long handled sponge. Pt able to wash rest of self. Pt able to rinse and dry by self. ) Bathing Location: L Arm, R Arm, R Upper Leg, R Lower Leg (including foot), Chest, Abdomen, Buttocks, Perineal Area Shower/Bathe Self (QC): 3 Upper Extremity Dressin (Pt required assist to doff hospital gown due to tubing. Pt able to don shirt sitting in w/c in room, requiring assist to thread tubing through shirt, set up. ) Upper Body Dressing (QC): 5 Lower Extremity Dressin (Pt able to doff briefs by self sitting on toilet. Pt able to don briefs and pants to waist. Pt able to manage clothing in front, r equired assist to manage clothing in back. SBA while standing. ) Lower Body Dressing (QC): 3 On/Off Footwear (QC): 3 Toiletin (Pt able to manage clothing properly before and after voiding and BM. Pt required assist to cleanse self after BM. ) Toileting Hygiene (QC): 3 Toilet/Commode Transfer: 4 (Pt requires FWW and grab bar. Pt requires assist to manuever IV pole and tubing. ) Toilet Transfer (QC): 5 Shower: 4 (Pt requires FWW, grab bar, and shower bench. Pt requires assist to manuever IV pole.) Assessment/Plan Assessment and Plan Assess & Plan/Chief Complaint Plan: IRF protocol OOB in chair most of day when not in therapy Advanced diet doing well Right flank hematoma now resolved Lovenox maintained but will monitor for additional hematomas O2 maintained and weaning well now at 2L/min and she is on that much at home PLOF was ambulating at home Ostomy care per surgical service to help with leakage by placing wound vac which is tolerated well but will need it and likely require NH placement Left leg radiculopathy evaluated and will managed conservatively Monitor labs prn Pet pass was successful last week unsure if that can be done again by the family Psych evaluation for depression is appreciated and I changed meds to her recs and she seems to be doing better today Replace potassium PO BID (1) Myopathy (2) COPD (chronic obstructive pulmonary disease) Status: Chronic Qualifiers: COPD type: unspecified COPD Qualified Codes: J44.9 - Chronic obstructive pulmonary disease, unspecified (3) Hypokalemia Status: Acute (4) Diabetes mellitus, type 2 Status: Chronic Qualifiers: Diabetes mellitus halfway insulin use: with halfway use Diabetes mellitus complication status: with other specified complication Qualified Codes: E11.69 - Type 2 diabetes mellitus with other specified complication; Z79.4 - halfway (current) use of insulin (5) Ventilator dependence Status: Resolved Resolution Date/Time: 11/25/18 @ 20:44 (6) Enterocutaneous fistula Status: Acute (7) Obesity hypoventilation syndrome Status: Chronic (8) On total parenteral nutrition (TPN) Status: Acute (9) BRAYAN treated with BiPAP Status: Chronic (10) Smoker Status: Chronic ALEIDA LICEA DO Dec 17, 2018 15:37
[2018-12-17 17:23] VITALS: BP 130/83
[2018-12-18] MEDS: PIPERACILLIN/TAZOBACTAM (BULK) 4.5 GM in NS (IVPB) 100 ML IV SCH ×3 (02:37→18:40)
[2018-12-18] MEDS: CATHETER FLUSH 10 ML SYR IV SCH ×3 (02:37→20:57)
[2018-12-18 05:39] VITALS: BP 132/83
[2018-12-18] MEDS: inSUlin ASPART (NovoLOG) 1 UNIT/0.01 ML (CHARGE PER UNIT) SC SCH ×4 (06:36→20:46)
[2018-12-18] MEDS: OCTREOTIDE INJECTION 500 MCG in NS (IVPB) 99 ML IV SCH ×2 (06:53→16:20)
[2018-12-18] MEDS: RT-ADVAIR HFA 115/21 MCG PER PUFF IH SCH ×2 (07:05→18:54)
[2018-12-18 08:39] VITALS: BP 101/63
[2018-12-18] MEDS: VITAMIN D3 5,000 UNITS (CHOLECALCIFEROL ) CAPSULE PO SCH (08:42)
[2018-12-18] MEDS: amLODIPine 10 MG (NORVASC) TAB PO SCH (08:43)
[2018-12-18] MEDS: meTOprolol TARTRATE 25 MG (LOPRESSOR) TABLET PO SCH ×3 (08:43→20:14)
[2018-12-18] MEDS: OMEGA 3 (FISH OIL) 1000 MG CAP PO SCH (08:43)
[2018-12-18] MEDS: FUROSEMIDE 20 MG (LASIX) TAB PO SCH (08:43)
[2018-12-18] MEDS: FLUoxetine HCL 20 MG (PROzac) CAP PO SCH (08:43)
[2018-12-18] MEDS: DULoxetine 30 MG (CYMBALTA) CAP PO SCH (08:43)
[2018-12-18] MEDS: lisINopril 20 MG (PRINIVIL) TABLET PO SCH (08:43)
[2018-12-18] MEDS: MAGNESIUM OXIDE (MAG-OX)400 MG TAB PO SCH (08:43)
[2018-12-18] MEDS: KCL 10 MEQ TAB (MICRO K) PO SCH ×2 (08:44→20:14)
[2018-12-18] MEDS: FAMOTIDINE 20 MG (PEPCID) TABLET PO SCH ×2 (08:44→20:14)
[2018-12-18] MEDS: LINAGLIPTIN (TRADJENTA) 5 MG TABLET PO SCH (08:44)
[2018-12-18] MEDS: NICOTINE PATCH REMOVAL TP SCH (08:45)
[2018-12-18] MEDS: NICOTINE 21 MG (NICODERM) PATCH TD SCH (08:45)
[2018-12-18] MEDS: DOCUSATE SODIUM 100 MG (COLACE) CAP PO SCH ×2 (09:00→19:47)
[2018-12-18] MEDS: SENNA W/DOCUSATE (SENOKOT S) TABLET PO SCH ×2 (09:00→19:47)
[2018-12-18] MEDS: ENOXAPARIN 60 MG/0.6 ML (LOVENOX) SYR SC SCH ×2 (11:05→20:14)
--- NOTE | 2018-12-18 11:06 | Cardiology Progress Note ---
Cardiology SOAP Progress Note Subjective: complained of mild shortness of breath this morning. Oxygen was increased briefly. Now comfortable. Objective: I&O/Vital Signs 12/18/18 12/18/18 12/18/18 12/18/18 05:39 06:34 07:06 08:39 Temp 100.1 99.2 99.8 Pulse 81 85 Resp 20 20 B/P (MAP) 132/83 (99) 101/63 (76) Pulse Ox 94 95 95 O2 Delivery High Flow N/C Nasal Cannula High Flow N/C O2 Flow Rate 3.00 1.50 3.00 12/18/18 09:00 Pulse Ox 95 O2 Delivery High Flow N/C O2 Flow Rate 3.00 12/18/18 00:00 Intake Total 1569 ml Balance 1569 ml Weight (Pounds): 278 Weight (Ounces): 11.2 Weight (Calculated Kilograms): [id number] Constitutional: AAO x 3, well-developed, well-nourished Respiratory: No accessory muscle use, No respiratory distress, No chest tender, No chest expansion is symmetric; chest is bilaterally symmetric; No lungs clear to percussion; lungs clear to auscultation; No crackles, No rhonchi, No rales, N o stridor, No wheezing, No pleural rub, No other Cardiovascular: regular rate-rhythm; No irregularly irregular, No extra beats, No parasternal heave is noted, No JVD, No edema, No bradycardia, No tachycardia, No point of maximal impulse, No cardiac thrills are palpable; S1 and S2; No gallop/S3, No gallop/S4, No diastolic murmur, No systolic murmur, No friction rub, No click, No other Gastrointestional: other (wound around the umbilicus.) Extremities: normal range of motion, non-tender, normal inspection, no lower extremity edema bilateral Neurologic/Psychiatric: alert, normal mood/affect, oriented x 3 Skin: normal color Results/Procedures: Labs Laboratory Tests 12/17/18 11:26: Glucometer 208H 12/17/18 15:38: Glucometer 157H 12/17/18 20:31: Glucometer 245H 12/18/18 05:27: Glucometer 124H A/P: Assessment/Dx: Respiratory failure COPD HTN HLP Plan: Status post respiratory failure, resolved, using C Pap on and off, Continue to monitor Enterocutaneous fistula postoperatively, 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 Olvera Acute non-ST elevation myocardial infarction, poor R-wave progression in the anterior leads, probably type II myocardial infarctions due to respiratory failure, underlying coronary artery disease cannot be entirely excluded. Echocardiogram showed normal LV function. Continue with conservative management at this time, continue to monitor. Troponin level trended down, no acute EKG changes suggestive of active ischemia, conservative management at this time. Consider stress test as outpatient. Hypertension, controlled, monitor blood pressure Hyperlipidemia maintained on Lipitor, on hold at this point COPD, oxygen dependent, receiving therapy. Morbid obesity Diabetes mellitus, followed and managed by primary care physician History of tobaccoism Generalized debility/weakness. Continue to monitor. Thank you for your consultation. Please call me if you have any questions. Dale Hanley MD, FACP, FACC, FSCAI, FHRS, CCDS Interventional Cardiology Cardiac Electrophysiology Vascular Medicine and Endovascular Interventions Alaina HANLEY MD Dec 18, 2018 11:06
--- NOTE | 2018-12-18 12:03 | PM&R Progress Note ---
Subjective HPI/CC On Admission Date Seen by Provider: Dec 18, 2018 Time Seen by Provider: 12:00 Chief complaint: Disuse myopathy. HPI: This is a 63yoWF [facility] Pt known to me from last week hospital admission when she required intubation for acute on chronic respiratory failure with obesity-hypoventilation syndrome following hernia repair. She was able to be extubated without complication and continued to be on high flow oxygen and had suffered these issues following an uncomplicated ventral hernia surgery. Due to her morbid obesity and likely chronic CO2 retention she went into respiratory failure, had significant difficulties with multisystem organ dysfunction and was eventually able to move down to fourth floor but repeat CT scam obtained due to elevated white count per Dr. Olvera showed some sort of fistula. 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 She remained on TPN, clear liquid diet only and IV antibiotics to help heal that area. At this current time, the Pt is denying any pain and is getting around better since she was living independently and ambulating at home. The goal is to return to near prior level of function and be able to return back to independent level of living. Subjective/Events-last exam Low-grade temperature of 100.8 last night Redness around the wound VAC will be monitored closely Sugars are good at 124, 160 Less depressed noted seems to be responding to Prozac and discontinuation of Wellbutrin Eating well Bowels are moving Pain is pretty well controlled except for left leg Wound vac is in place Check meds and labs Conferred with RN Reviewed therapy notes Overall improving status Maintain on IV antibiotics Review of Systems General: Fatigue Musculoskeletal: back pain, leg pain Objective Exam Vital Signs Vital Signs Date Time Temp Pulse Resp B/P (MAP) Pulse Ox O2 Delivery O2 Flow Rate FiO2 12/18/18 13:32 99.7 73 97/60 (72) 12/18/18 09:00 95 High Flow N/C 3.00 12/18/18 08:39 20 Capillary Refill : Less Than 3 Seconds General Appearance: No Apparent Distress, WD/WN HEENT: PERRL/EOMI, Normal ENT Inspection, Pharynx Normal, Moist Mucous Membranes Neck: Full Range of Motion, Non Tender, Supple Respiratory: No Accessory Muscle Use, No Respiratory Distress Cardiovascular: Regular Rate, Rhythm, No Edema, No Gallop, No JVD, No Murmur, Normal Peripheral Pulses Gastrointestinal: Normal Bowel Sounds, No Organomegaly, No Pulsatile Mass, Soft, Tenderness, Other (fistula) Back: Normal Inspection, No CVA Tenderness, No Vertebral Tenderness Extremity: Normal Capillary Refill, Normal Range of Motion, No Calf Tenderness, No Pedal Edema, Other (No redness, warmth, pain, or swelling of the left extremity.) Neurologic/Psychiatric: Alert, Oriented x3, No Motor/Sensory Deficits, Normal 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 FIM Transfers Therapy Code Descriptions/Definitions Functional [place] Measure: 0=Not Assessed/NA 4=Minimal Assistance 1=Total Assistance 5=Supervision or Setup 2=Maximal Assistance 6=Modified [place] 3=Moderate Assistance 7=Complete [place] Therapy Quality Codes: 6 Independent with activity with or without an assistive device 5 Patient requires set up or clean up by helper. Patient completes activity by themselves 4 Supervision or touching assist (CGA). [place] provide cues , steadying assist 3 The helper provides less than half the effort to complete the activity 2 The helper provides more than half the effort to complete the activity 1 Dependent. The helper does all the effort to complete an activity 7 Patient refused to complete or attempt activity 9 The patient did not perform the activity before the current illness or injury 88 Not attempted due to Medical conditions or safety concerns Transfers (B, C, W/C) (FIM): 5 Scootin Rollin Roll Left to Right (QC): 6 Supine to/from Sit: 4 Sit to/from Stand: 5 Sit to Lying (QC): 6 Sit to Stand (QC): 5 Chair/Dsl-vj-Snfpr Xfer(QC): 6 Bed to/from Chair: 5 Car Transfer (QC): 88 (Unsafe to attempt car transfer at this time. ) Gait Training Does the Patient Walk?: Yes Gait (FIM): 5 Distance (FIM): 3=150 ft Distance: 100, 160 Walk 10 feet (QC): 5 Walk 50 ft with 2 Turns(QC): 6 Walk 150 ft (QC): 88 Walking 10ft/uneven surface-QC: 88 Gait Level of Assist: 5 Gait Persons Needed: 2 (2nd person required for assist following with w/c, transport of wound vac, IV pole and O2 tank) Gait Assistive Device: FWW Wheelchair Training Does the Pt Use a Wheelchair?: Yes Wheelchair (FIM): 5 Wheelchair Distance: 3=150 ft Distance: 150' Wheelchair Level of Assist: 5 Wheel 50 ft with 2 turns (QC): 5 Wheel 150 ft (QC): 5 Type of Wheelchair: Manual Stair Training Stair Training: Handrails/: uses walker Stairs (FIM): 1 #of Steps: 1 1 Step (curb) (QC): 5 4 Steps (QC): 88 12 Steps (QC): 88 Stairs: Pattern: Step to Level of Assist: 5 Balance Picking up an Object (QC): 88 Mental Status/Objective Comprehension: 7 Expression: 7 Social Interaction: 7 Problem Solvin Memory: 6 ADL-Treatment Groomin (Pt sitting in w/c at sink. Pt able to brush teeth and hair at sink. ) Oral Hygiene (QC): 6 Bathin (Pt requires grab bar and hand held shower head. Pt required assist to wash L leg. Pt declined using long handled sponge. Pt able to wash rest of self. Pt able to rinse and dry by self. ) Bathing Location: L Arm, R Arm, R Upper Leg, R Lower Leg (including foot), Chest, Abdomen, Buttocks, Perineal Area Shower/Bathe Self (QC): 3 Upper Extremity Dressin (Pt required assist to doff hospital gown due to tubing. Pt able to don shirt sitting in w/c in room, requiring assist to thread tubing through shirt, set up. ) Upper Body Dressing (QC): 5 Lower Extremity Dressin (Pt able to doff briefs by self sitting on toilet. Pt able to don briefs and pants to waist. Pt able to manage clothing in front, required assist to manage clothing in back. SBA while standing. ) Lower Body Dressing (QC): 3 On/Off Footwear (QC): 3 Toiletin (Pt able to manage clothing properly before and after voiding and BM. Pt required assist to cleanse self after BM. ) Toileting Hygiene (QC): 3 Toilet/Commode Transfer: 4 (Pt requires FWW and grab bar. Pt requires assist to manuever IV pole and tubing. ) Toilet Transfer (QC): 5 Shower: 4 (Pt requires FWW, grab bar, and shower bench. Pt requires assist to manuever IV pole.) Assessment/Plan Assessment and Plan Assess & Plan/Chief Complaint Plan: IRF protocol OOB in chair most of day today Advanced diet doing well at Dysphagia 3 Right flank hematoma now resolved Lovenox maintained for DVT PPx O2 maintained and weaning well now at 2L/min which she is on that at home PLOF was ambulating at home Ostomy care per surgical service to help with leakage by placing wound vac which is tolerated well but will need to maintain that for wound healing Left leg radiculopathy evaluated and will managed conservatively but has spine disease prior to this hospital stay Monitor labs prn Pet pass was successful and hopefully will be able to see the dog later Psych evaluation for depression is appreciated and I changed meds to her recs. Depression improved Left leg radiculopathy managed conservatively Replace potassium PO BID Check labs in am (1) Myopathy (2) COPD (chronic obstructive pulmonary disease) Status: Chronic Qualifiers: COPD type: unspecified COPD Qualified Codes: J44.9 - Chronic obstructive pulmonary disease, unspecified (3) Hypokalemia Status: Acute (4) Diabetes mellitus, type 2 Status: Chronic Qualifiers: Diabetes mellitus buttermaker helper insulin use: with buttermaker helper use Diabetes mellitus complication status: with other specified complication Qualified Codes: E11.69 - Type 2 diabetes mellitus with other specified complication; 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
[2018-12-18 13:32] VITALS: BP 97/60
[2018-12-18 18:00] VITALS: BP 118/73
[2018-12-18] MEDS: DICLOFENAC 1% GEL 100 GM (VOLTAREN) TUBE TOP PRN (20:14)
[2018-12-18] MEDS: MELATONIN 3 MG TABLET PO PRN (23:58)
[2018-12-19] MEDS: OCTREOTIDE INJECTION 500 MCG in NS (IVPB) 99 ML IV SCH (01:24)
[2018-12-19] MEDS: PIPERACILLIN/TAZOBACTAM (BULK) 4.5 GM in NS (IVPB) 100 ML IV SCH (02:04)
[2018-12-19] MEDS: CATHETER FLUSH 10 ML SYR IV SCH ×3 (02:04→20:32)
[2018-12-19 06:02] VITALS: BP 132/76
[2018-12-19] MEDS: inSUlin ASPART (NovoLOG) 1 UNIT/0.01 ML (CHARGE PER UNIT) SC SCH ×4 (06:19→20:29)
[2018-12-19 06:30] LABS: BASOPHILS # (AUTO) 0.1 10^3/uL (0.0-0.1); BASOPHILS % (AUTO) 1 % (0-10); EOSINOPHILS # (AUTO) 0.3 10^3/uL (0.0-0.3); EOSINOPHILS % (AUTO) 5 % (0-10); HEMATOCRIT 33 % (35-52); HEMOGLOBIN 9.9 G/DL (11.5-16.0); LYMPHOCYTES # (AUTO) 1.7 X 10^3 (1.0-4.0); LYMPHOCYTES % (AUTO) 24 % (12-44); MEAN CORPUSCULAR HEMOGLOBIN 28 PG (25-34); MEAN CORPUSCULAR HGB CONC 30 G/DL (32-36); MEAN CORPUSCULAR VOLUME 91 FL (80-99); MEAN PLATELET VOLUME 9.6 FL (7.4-10.4); MONOCYTES # (AUTO) 1.1 X 10^3 (0.0-1.0); MONOCYTES % (AUTO) 16 % (0-12); NEUTROPHILS # (AUTO) 3.9 X 10^3 (1.8-7.8); NEUTROPHILS % (AUTO) 55 % (42-75); PLATELET COUNT 248 10^3/uL (130-400); RED CELL DISTRIBUTION WIDTH 15.9 % (10.0-14.5); WHITE BLOOD COUNT 7.1 10^3/uL (4.3-11.0)
[2018-12-19 06:50] LABS: ALANINE AMINOTRANSFERASE 10 U/L (0-55); ALBUMIN 3.2 GM/DL (3.2-4.5); ALKALINE PHOSPHATASE 72 U/L (40-136); BILIRUBIN,TOTAL 0.3 MG/DL (0.1-1.0); BUN/CREATININE RATIO 10; CALCIUM 9.2 MG/DL (8.5-10.1); CARBON DIOXIDE 27 MMOL/L (21-32); CHLORIDE 101 MMOL/L (98-107); CREATININE SERUM 0.87 MG/DL (0.60-1.30); GFR ESTIMATED > 60; GLUCOSE 138 MG/DL (70-105); POTASSIUM 3.6 MMOL/L (3.6-5.0); SODIUM 140 MMOL/L (135-145); TOTAL PROTEIN 7.3 GM/DL (6.4-8.2)
[2018-12-19] MEDS: RT-ADVAIR HFA 115/21 MCG PER PUFF IH SCH ×2 (07:05→18:32)
--- NOTE | 2018-12-19 07:58 | Progress Note ---
NAVYA CONTRERAS [facility] 12/19/18 0758: Subjective Date Seen by a Provider: Dec 19, 2018 Time Seen by a Provider: 07:45 Subjective/Events-last exam Vitals are stable. She used her CPAP last night and is on 3L NC throughout the day. Slept well. Took melatonin to help her sleep. Left leg is still painful. Night time was not feeling good. Wasn't wrapped, which seems to be the only way to help. ROS: - : SOB/Chest pain, Chills, N/V/D, Syncope/Vertigo +: Left Leg pain Erythema of the Wound Vac. Assessment of the Carisa shows that she is slowly progressing with each day. She is able and determined to improve the functionality of her leg so that she can ambulate better. Her affect has improve. Her sleep has also improved. I believe that at the start next week, she'd be able to be evaluated to leave. As long as she make stride and continues to progress, I feel she will be able to succeed. Focused Exam Peripheral Pulses: 1+ Dorsalis Pedis (R), 1+ Left Dors-Pedis (L); 2+ Radial Pulses (R), 2+ Radial Pulses (L) Objective Exam Last Set of Vital Signs Vital Signs Date Time Temp Pulse Resp B/P (MAP) Pulse Ox O2 Delivery O2 Flow Rate FiO2 12/19/18 07:05 90 Nasal Cannula 3.00 12/19/18 06:02 99.1 76 18 132/76 (94) Capillary Refill : Less Than 3 Seconds I&O Intake and Output 12/19/18 00:00 Intake Total 2460 ml Balance 2460 ml Intake Oral 1900 ml IV Total 560 ml # Voids 10 # Bowel Movements 3 General: Alert, Oriented X3, Cooperative, No Acute Distress Lungs: Clear to Auscultation, Normal Air Movement Heart: Regular Rate Abdomen: Normal Bowel Sounds, Soft, No Tenderness Results Lab Laboratory Tests 12/18/18 11:42: Glucometer 160H 12/18/18 16:30: Glucometer 216H 12/18/18 20:45: Glucometer 180H 12/19/18 05:30: White Blood Count 7.1, Red Blood Count 3.58L, Hemoglobin 9.9L, Hematocrit 33L, Mean Corpuscular Volume 91, Mean Corpuscular Hemoglobin 28, Mean Corpuscular Hemoglobin Concent 30L, Red Cell Distribution Width 15.9H, Platelet Count 248, Mean Platelet Volume 9.6, Neutrophils (%) (Auto) 55, Lymphocytes (%) (Auto) 24, Monocytes (%) (Auto) 16H, Eosinophils (%) (Auto) 5, Basophils (%) (Auto) 1, Neutrophils # (Auto) 3.9, Lymphocytes # (Auto) 1.7, Monocytes # (Auto) 1.1H, Eosinophils # (Auto) 0.3, Basophils # (Auto) 0.1, Sodium Level 140, Potassium Level 3.6, Chloride Level 101, Carbon Dioxide Level 27, Anion Gap 12, Blood Urea Nitrogen 9, Creatinine 0.87, Estimat Glomerular Filtration Rate > 60, BUN/Creatinine Ratio 10, Glucose Level 138H, Calcium Level 9.2, Corrected Calcium 9.8, Total Bilirubin 0.3, Aspartate Amino Transf (AST/SGOT) 18, Alanine Aminotransferase (ALT/SGPT) 10, Alkaline Phosphatase 72, Total Protein 7.3, Alb umin 3.2 12/19/18 05:36: Glucometer 150H Assessment/Plan Assessment/Plan Assess & Plan/Chief Complaint Assessment: 1. Limited Strength due to radiculopathy in L LE. 2. Decreased strength to preform PT/OT to maximum capacity 3. Sleeping better w/o medicine 4. Affect is improving 5. Pain around wound vac site as well as certain nodules present on abdomen. Plan: 1. Continue to work on seated/supine exercises to help with strength in foot to improve ambulation. 2. Continue to use CPAP at night while sleeping. 3. Wrap L LE in warm blanket to allow ease symptoms of radiculopathy to sleep 4. Continue to monitor wound vac site and abdome. Clinical Quality Measures DVT/VTE Risk/Contraindication: Risk Factor Score Per Nursin RFS Level Per Nursing on Admit: 4+=Very High ALEIDA LICEA DO 12/19/18 2004: Assessment/Plan Assessment/Plan Assess & Plan/Chief Complaint Verification and Attestation of Medical Student E/M Service A medical student performed and documented this service in my presence. I reviewed and verified all information documented by the medical student and made modifications to such information, when appropriate. I personally performed the physical exam and medical decision making. Aleida Licea, Dec 19, 2018,20:04 Supervisory-Addendum Brief Verification & Attestation Participated in pt care: history, MDM, physical Personally performed: exam, history, MDM, supervision of care Care discussed with: Medical Student Procedures: n/a Results interpretation: Verified all documentation Verification and Attestation of Medical Student E/M Service A medical student performed and documented this service in my presence. I reviewed and verified all information documented by the medical student and made modifications to such information, when appropriate. I personally performed the physical exam and medical decision making. Aleida Licea, Dec 19, 2018,20:04 [facility] CONTRERAS [facility] Dec 19, 2018 07:58 ALEIDA LICEA DO Dec 19, 2018 20:04
[2018-12-19 08:00] VITALS: BP 120/68
[2018-12-19] MEDS: NICOTINE 21 MG (NICODERM) PATCH TD SCH (09:44)
[2018-12-19] MEDS: DULoxetine 30 MG (CYMBALTA) CAP PO SCH (09:45)
[2018-12-19] MEDS: FLUoxetine HCL 20 MG (PROzac) CAP PO SCH (09:45)
[2018-12-19] MEDS: VITAMIN D3 5,000 UNITS (CHOLECALCIFEROL ) CAPSULE PO SCH (09:45)
[2018-12-19] MEDS: OMEGA 3 (FISH OIL) 1000 MG CAP PO SCH (09:46)
[2018-12-19] MEDS: amLODIPine 10 MG (NORVASC) TAB PO SCH (09:46)
[2018-12-19] MEDS: meTOprolol TARTRATE 25 MG (LOPRESSOR) TABLET PO SCH ×3 (09:46→20:31)
[2018-12-19] MEDS: MAGNESIUM OXIDE (MAG-OX)400 MG TAB PO SCH (09:46)
[2018-12-19] MEDS: KCL 10 MEQ TAB (MICRO K) PO SCH ×2 (09:46→20:30)
[2018-12-19] MEDS: LINAGLIPTIN (TRADJENTA) 5 MG TABLET PO SCH (09:46)
[2018-12-19] MEDS: FUROSEMIDE 20 MG (LASIX) TAB PO SCH (09:46)
[2018-12-19] MEDS: lisINopril 20 MG (PRINIVIL) TABLET PO SCH (09:46)
[2018-12-19] MEDS: DOCUSATE SODIUM 100 MG (COLACE) CAP PO SCH ×2 (09:47→21:22)
[2018-12-19] MEDS: NICOTINE PATCH REMOVAL TP SCH (09:47)
[2018-12-19] MEDS: SENNA W/DOCUSATE (SENOKOT S) TABLET PO SCH ×2 (09:48→21:22)
[2018-12-19] MEDS: FAMOTIDINE 20 MG (PEPCID) TABLET PO SCH ×2 (09:54→20:30)
[2018-12-19] MEDS: ENOXAPARIN 60 MG/0.6 ML (LOVENOX) SYR SC SCH ×2 (09:56→20:29)
--- NOTE | 2018-12-19 09:59 | Occupational Ther Daily Note ---
OT Current Status-Daily Note Subjective Pt alert sitting in chair eating breakfast upon OT arrival. Pt agrees to shower. Pt states she is cranky today and appears depressed. Mental Status/Objective Patient Orientation: Person, Place, Time, Situation Therapy Code Descriptions/Definitions Functional [place] Measure: 0=Not Assessed/NA 4=Minimal Assistance 1=Total Assistance 5=Supervision or Setup 2=Maximal Assistance 6=Modified [place] 3=Moderate Assistance 7=Complete [place] Attachments: Central Line, Drains, Oxygen ADL-Treatment Pt brushed teeth sitting in w/c in room. Pt was wearing dentures upon OT arrival. Pt required increased time due to decreased activity tolerance and maneuvering wound vac, IV pole, and oxygen. Therapy Code Descriptions/Definitions Functional [place] Measure: 0=Not Assessed/NA 4=Minimal Assistance 1=Total Assistance 5=Supervision or Setup 2=Maximal Assistance 6=Modified [place] 3=Moderate Assistance 7=Complete [place] Therapy Quality Codes: 6 Independent with activity with or without an assistive device 5 Patient requires set up or clean up by helper. Patient completes activity by themselves 4 Supervision or touching assist (CGA). [place] provide cues , steadying assist 3 The helper provides less than half the effort to complete the activity 2 The helper provides more than half the effort to complete the activity 1 Dependent. The helper does all the effort to complete an activity 7 Patient refused to complete or attempt activity 9 The patient did not perform the activity before the current illness or in jury 88 Not attempted due to Medical conditions or safety concerns Eating (FIM): 7 (Pt able to open all containers. Pt able to use utensils correctly and bring food and drink to mouth.) Eating (QC): 6 Bathing (FIM): 3 (Pt required grab bar, shower bench, and hand held shower head. Pt required assist to wash buttocks, under stomach, and martha area due to decreased activity tolerance. ) Bathing Location: L Arm, R Arm, L Upper Leg, R Upper Leg, L Lower Leg (including foot), R Lower Leg (including foot), Chest Shower/Bathe Self (QC): 3 Upper Body (FIM): 5 (Pt required assist to do hospital gown due to IV lines. Pt able to don shirt by self, set up. ) Upper Body Dressing (QC): 5 Lower Body Dressing (FIM): 4 (Pt able to don briefs and pants up to waist by self. Pt required assist to manuever clothing above waist over stomach. Pt able to adjust clothing on backside. ) Lower Body Dressing (QC): 3 On/Off Footwear (QC): 6 (Wears slip on shoes) Toileting (FIM): 3 (Pt able to adjust clothing before and after voiding and BM. Pt required assist to cleanse self. ) Toileting Hygiene (QC): 3 Transfers (B, C, W/C) (FIM): 5 (Pt able to transfer by self requiring assist to manuever wound vac, IV pole and oxygen, supervision. ) Toilet/Commode Transfer (FIM): 5 (Pt requires FWW and grab bar. SBA while pt while stand to sit. ) Toilet Transfer (QC): 4 Shower Transfer(FIM): 5 Other Treatment Pt participated in 10 min upper body exercise using med resistance theraband to increase strength for functional activity tasks. Skills of clinician needed for instructions and proper positioning. Pt sitting in w/c. Nrsg in room. Pts call light and phone in reach. Pt needs met. OT Short Term Goals Short Term Goals Time Frame: Dec 08, 2018 Eating(FIM): 5 Grooming(FIM): 5 Bathing(FIM): 4 Upper Body Dressing(FIM): 4 Lower Body Dressing(FIM): 3 Toileting(FIM): 3 Transfers (B,C,W/C) (FIM): 4 Toilet/Commode Transfer(FIM): 4 Shower Transfer(FIM): 4 Additional Short Term Goals: 1-Demonstrate ADL Tasks, 2-Verbalize Understanding, 3-ImproveStrength/Juan F 1=Demonstrate adherence to instructed precautions during ADL tasks. 2=Patient will verbalize/demonstrate understanding of assistive devices/modifications for ADL. 3=Patient will improve strength/tolerance for activity to enable patient to perform ADL's. OT Compliance Review Officer Goals Compliance Review Officer Goals Time Frame: Dec 22, 2018 Eating (FIM): 6 Eating (QC): 6 Groomin Oral Hygiene (QC): 6 Bathing(FIM): 5 Shower/Bathe Self (QC): 4 Upper Body Dressing(FIM): 5 Upper Body Dressing (QC): 4 Lower Body Dressing(FIM): 5 Lower Body Dressing (QC): 4 On/Off Footwear (QC): 4 Toileting(FIM): 6 Toileting Hygiene (QC): 6 Transfers (B,C,W/C) (FIM): 6 Toilet/Commode Transfer(FIM): 6 Toilet/Commode Transfer (QC): 6 Shower Transfer(FIM): 5 Additional Goals: 1-Demonstrate ADL Tasks, 2-Verbalize Understanding, 3- ImproveStrength/Juan F 1=Demonstrate adherence to instructed precautions during ADL tasks. 2=Patient will verbalize/demonstrate understanding of assistive devices/modifications for ADL. 3=Patient will improve strength/tolerance for activity to enable patient to perform ADL's. OT Education/Plan Discharge Recommendations Plan/Recommendations: Continue POC Treatment Plan/Plan of Care Patient would benefit from OT for education, treatment and training to promote independence in ADL's, mobility, safety and/or upper extremity function for ADL's. Plan of Care: ADL Retraining, Functional Mobility, Group Exercise/Act as Ind, UE Funct Exercise/Act Treatment Duration: Dec 22, 2018 Frequency: At least 5 of 7 days/Wk (IRF) Estimated Hrs Per Day: 1.5 hours per day Agreement: Yes Rehab Potential: Good Time/GCodes Start Time: 08:30 Stop Time: 10:00 Total Time Billed (hr/min): 90 Billed Treatment Time 1 visit- ADL 5 (80 min) EX 1 (10 min) CEDRIC DURANT Dec 19, 2018 09:59
--- NOTE | 2018-12-19 10:00 | NUR ---
IV ZOSYN AND OCTREOTIDE DC'D PER DR. ELIZABETH'S ORDERS. PATIENT STATES LEFT LEG PAIN CONTINUES. STATES LEFT CALF STARTING TO ITCH AND PATIENT HOPES NUMBNESS IN CALF IS GOING TO GO AWAY.
--- NOTE | 2018-12-19 11:26 | Cardiology Progress Note ---
Cardiology SOAP Progress Note Subjective: no cardiac symptoms. Objective: I&O/Vital Signs 12/19/18 12/19/18 06:02 07:05 Temp 37.58835 Pulse 76 Resp 18 B/P (MAP) 132/76 (94) Pulse Ox 92 90 O2 Delivery NIV CPAP Nasal Cannula O2 Flow Rate 3.00 3.00 12/19/18 00:00 Intake Total 1540 ml Balance 1540 ml Weight (Pounds): 185 Weight (Ounces): 8.0 Weight (Calculated Kilograms): 84.901657 Constitutional: AAO x 3, well-developed, well-nourished Respiratory: No accessory muscle use, No respiratory distress, No chest tender, No chest expansion is symmetric; chest is bilaterally symmetric; No lungs clear to percussion; lungs clear to auscultation; No crackles, No rhonchi, No rales, No stridor, No wheezing, No pleural rub, No other Cardiovascular: regular rate-rhythm; No irregularly irregular, No extra beats, No parasternal heave is noted, No JVD, No edema, No bradycardia, No tachycardia, No point of maximal impulse, No cardiac thrills are palpable; S1 and S2; No gallop/S3, No gallop/S4, No diastolic murmur, No systolic murmur, No friction rub, No click, No other Gastrointestional: other (wound around the umbilicus.) Extremities: normal range of motion, non-tender, normal inspection, no lower extremity edema bilateral Neurologic/Psychiatric: alert, normal mood/affect, oriented x 3 Skin: normal color Results/Procedures: Labs Laboratory Tests 12/18/18 11:42: Glucometer 160H 12/18/18 16:30: Glucometer 216H 12/18/18 20:45: Glucometer 180H 12/19/18 05:30: White Blood Count 7.1, Red Blood Count 3.58L, Hemoglobin 9.9L, Hematocrit 33L, Mean Corpuscular Volume 91, Mean Corpuscular Hemoglobin 28, Mean Corpuscular Hemoglobin Concent 30L, Red Cell Distribution Width 15.9H, Platelet Count 248, Mean Platelet Volume 9.6, Neutrophils (%) (Auto) 55, Lymphocytes (%) (Auto) 24, Monocytes (%) (Auto) 16H, Eosinophils (%) (Auto) 5, Basophils (%) (Auto) 1, Neutrophils # (Auto) 3.9, Lymphocytes # (Auto) 1.7, Monocytes # (Auto) 1.1H, Eosinophils # (Auto) 0.3, Basophils # (Auto) 0.1, Sodium Level 140, Potassium Level 3.6, Chloride Level 101, Carbon Dioxide Level 27, Anion Gap 12, Blood Urea Nitrogen 9, Creatinine 0.87, Estimat Glomerular Filtration Rate > 60, BUN/Creatinine Ratio 10, Glucose Level 138H, Calcium Level 9.2, Corrected Calcium 9.8, Total Bilirubin 0.3, Aspartate Amino Transf (AST/SGOT) 18, Alanine Aminotransferase (ALT/SGPT) 10, Alkaline Phosphatase 72, Total Protein 7.3, Albumin 3.2 12/19/18 05:36: Glucometer 150H 12/19/18 10:52: Glucometer 226H A/P: Assessment/Dx: Respiratory failure COPD HTN HLP Plan: Status post respiratory failure, resolved, using C Pap on and off, Continue to monitor Enterocutaneous fistula postoperatively, 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 Olvera Acute non-ST elevation myocardial infarction, poor R-wave progression in the anterior leads, probably type II myocardial infarctions due to respiratory failure, underlying coronary artery disease cannot be entirely excluded. Echocardiogram showed normal LV function. Continue with conservative management at this time, continue to monitor. Troponin level trended down, no acute EKG changes suggestive of active ischemia, conservative management at this time. Consider stress test as outpatient. Hypertension, controlled, monitor blood pressure Hyperlipidemia maintained on Lipitor, on hold at this point COPD, oxygen dependent, receiving therapy. Morbid obesity Diabetes mellitus, followed and managed by primary care physician History of tobaccoism Generalized debility/weakness. Continue to monitor. Thank you for your consultation. Please call me if you have any questions. Dale Hanley MD, FACP, FACC, FSCAI, FHRS, CCDS Interventional Cardiology Cardiac Electrophysiology Vascular Medicine and Endovascular Interventions Alaina HANLEY MD Dec 19, 2018 11:26
--- NOTE | 2018-12-19 11:58 | Physical Therapy Daily Note ---
PT Daily Note-Current Subjective Patient in bed pre tx, agrees to PT, has 7/10 pain in left foot, nurse notified. Patient states she is very fatigued and shaky and requests not to ambulate this morning. Appearance Patient in bed post tx with nurse call, phone, tray, all needs met. Patient needed to use the restroom at the end of treatment and she did so without assist, changed her brief and put her pants back on. Mental Status Patient Orientation: Person, Place, Situation Attachments: Oxygen wound vac Transfers Therapy Code Descriptions/Definitions Functional [place] Measure: 0=Not Assessed/NA 4=Minimal Assistance 1=Total Assistance 5=Supervision or Setup 2=Maximal Assistance 6=Modified [place] 3=Moderate Assistance 7=Complete [place] Therapy Quality Codes: 6 Independent with activity with or without an assistive device 5 Patient requires set up or clean up by helper. Patient completes activity by themselves 4 Supervision or touching assist (CGA). [place] provide cues , steadying assist 3 The helper provides less than half the effort to complete the activity 2 The helper provides more than half the effort to complete the activity 1 Dependent. The helper does all the effort to complete an activity 7 Patient refused to complete or attempt activity 9 The patient did not perform the activity before the current illness or injury 88 Not attempted due to Medical conditions or safety concerns Transfers (B, C, W/C) (FIM): 5 Scootin Rollin Supine to/from Sit: 6 Sit to/from Stand: 5 Bed to/from Chair: 5 Wheelchair Training Does the Pt Use a Wheelchair?: Yes Wheelchair (FIM): 5 Distance: 150'x2 Wheelchair Level of Assist: 5 Type of Wheelchair: Manual very slow Exercises Standing: Hip Abduction, Heel/toe raises Standing Reps: 15 NuStep Minutes: 15 NuStep Workload: 4 Treatments LE exercise, toileting, bed mobility and transfers, WC mob Assessment Current Status: Fair Progress improving transfers and bed mobility PT Short Term Goals Short Term Goals Time Frame: Dec 15, 2018 Transfers (B,C,W/C) (FIM): 4 Gait (FIM): 4 Distance (FIM): 3=150 ft Gait Assistive Device: FWW Wheelchair Distance: 150' PT Mcc Goals Mcc Goals PT Mcc Goals Time Frame: Dec 29, 2018 Transfers (B,C,W/C) (FIM): 6 Sit to Lying (QC): 6 Lying-Sitting on Side/Bed(QC): 6 Sit to Stand (QC): 6 Rollin Roll Left to Right (QC): 6 Chair/Ial-yy-Jywha Xfer(QC): 6 Car Transfer (QC): 6 Does the Patient Walk: Yes Gait (FIM): 6 Gait distance (FIM): 3=150 ft Walk 10 feet (QC): 6 Walk 10ft-Uneven Surface(QC): 6 Walk 50ft with 2 Turns (QC): 6 Walk 150 ft (QC): 6 Gait Assistive Device: FWW Does the Pt use WC or Scooter?: No Stairs (FIM): 5 # of Steps: 4 1 Step (curb) (QC): 6 4 Steps (QC): 6 12 Steps (QC): 9 Picking up an Object (QC): 9 PT Plan Problem List Problem List: Activity Tolerance, Functional Strength, Safety, Balance, Gait, Transfer, Bed Mobility, ROM Treatment/Plan Treatment Plan: Continue Plan of Care Treatment Plan: Bed Mobility, Education, Functional Activity Juan F, Functional Strength, Group Therapy, Gait, Safety, Therapeutic Exercise, Transfers Treatment Duration: Dec 29, 2018 Frequency: At least 5 of 7 days/Wk (IRF) Estimated Hrs Per Day: 1.5 hours per day Patient and/or Family Agrees t: Yes Safety Risks/Education Patient Education: Transfer Techniques, Correct Positioning, W/C Management, Safety Issues Teaching Recipient: Patient Teaching Methods: Demonstration, Discussion Response to Teaching: Reinforcement Needed Time/GCodes Time In: 1100 Time Out: 1200 Total Billed Treatment Time: 60 Total Billed Treatment 1 visit EX 30' FA 30' KYUNG DE LUNA PT Dec 19, 2018 11:58
[2018-12-19] MEDS: DICLOFENAC 1% GEL 100 GM (VOLTAREN) TUBE TOP PRN (12:09)
[2018-12-19] MEDS: ACETAMINOPHEN 325 MG TABLET PO PRN (12:10)
--- NOTE | 2018-12-19 14:11 | NUR ---
Saundra with [facility], notified this worker that they are unable to accept patients that possess a wound vac. Despite this denial, Saundra still intends to visit with patient in regards to services provided by the facility. This worker to follow-up with patient once this visit concludes.
--- NOTE | 2018-12-19 15:30 | NUR ---
Spoke with Dr. Olvera earlier today reference Wound VAC on pt. Dr. Olvera request I remove dressing today and leave it wet to dry until Dr. Olvera can assess pt wound. Removed wound vac and noticed notable hardness and redness to right side of wound. Marked redness with marker.
--- NOTE | 2018-12-19 15:30 | NUR ---
WOUND VAC TAKEN OFF AND WET-TO-DRY DRESSING APPLIED TO ABDOMINAL WOUND UNTIL DR. ELIZABETH SEES PATIENT.
--- NOTE | 2018-12-19 15:30 | NUR ---
WHEN WOUND VAC DRESSING REMOVED, NOTICEABLE REDNESS TO RIGHT SIDE OF ABD. WOUND. MARKED WITH MARKER.
--- NOTE | 2018-12-19 15:31 | Speech Therapy Daily Note ---
Speech Daily Progress Note Subjective Date Seen by Provider: Dec 19, 2018 Time Seen by Provider: 00:30 Patient seemed slightly in better spirits today. Objective Patient utilizes compensatory strategies with all oral intake at 90% or greater with minimal cues. Assessment Assessment Current Status: Good Progress Treatment Plan Continue Plan of Care Communication Comprehension: 7 Expression: 7 Social Cognition Social Interaction: 7 Problem Solvin Memory: 6 Speech Short Term Goals Short Term Goals Short Term Goals 1) The patient will tolerate least restrictive diet level without s/s of aspiration at 90% or greater. 2) The patient will utilize compensatory strategies as trained for safe oral intake at 90% or greater given minimal verbal cues. Speech Care Home Goals Security Alarm Technician Goals The patient will maintain adequate nutrition/hydration via safe effective swallow function. Speech-Plan Patient/Family Goals Patient/Family Goals: The patient plans on returning home post rehab. Treatment Plan Speech Therapy Treatment Plan: Continue Plan of Care Patient is making good progress with oral intake. Treatment Duration: Dec 23, 2018 Frequency: 5 times per week Estimated Hrs Per Day: .25 hour per day Rehab Potential: Good Barriers to Learning: Patient has a complex medical status Pt/Family Agrees to Plan: Yes Safety Risks/Education Teaching Recipient: Patient Teaching Methods: Demonstration, Discussion Response to Teaching: Verbalize Understanding, Return Demonstration Education Topics Provided: Continued safety with oral intake. Time Speech Therapy Time In: 15:15 Speech Therapy Time Out: 15:45 Total Billed Time: 30 Billed Treatment Time SADIE Barry ANTHONY Carvalho Dec 19, 2018 15:31
[2018-12-19 15:56] VITALS: BP 118/76
--- NOTE | 2018-12-19 19:00 | NUR ---
DR. ELIZABETH STATES HE WILL SEE PATIENT IN AM. INFORMED OF REDNESS WORSENING ON RIGHT SIDE OF ABDOMINAL WOUND. STATES W-D DRESSING CHANGES BID.
--- NOTE | 2018-12-19 20:00 | PM&R Progress Note ---
Subjective HPI/CC On Admission Date Seen by Provider: Dec 19, 2018 Time Seen by Provider: 09:00 Chief complaint: Disuse myopathy. HPI: [facility] 63[facility] known to me from last week hospital admission when she required intubation for acute on chronic respiratory failure with obesity-hypoventilation syndrome following hernia repair. She was able to be extubated without complication and continued to be on high flow oxygen and had suffered these issues following an uncomplicated ventral hernia surgery. Due to her morbid obesity and likely chronic CO2 retention she went into respiratory failure, had significant difficulties with multisystem organ dysfunction and was eventually able to move down to fourth floor but repeat CT scam obtained due to elevated white count per Dr. Olvera showed some sort of fistula. 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 She remained on TPN, clear liquid diet only and IV antibiotics to help heal that area. At this current time, the Pt is denying any pain and is getting around better since she was living independently and ambulating at home. The goal is to return to near prior level of function and be able to return back to independent level of living. Subjective/Events-last exam Hgb at 9.9 on weekly lab check Zosyn will be discontinued today Octreotide will likely be discontinued if okay with Dr. Olvera Melatonin was helpful Had a BM Potassium at 3.6 Warm blanket on her left leg really helps Erythema around the wound vac and will monitor that very closely Wound vac is in place Check meds and labs Conferred with RN Reviewed therapy notes Overall improving status Maintain on IV antibiotics Review of Systems General: Fatigue Gastrointestinal: Abdominal Pain Musculoskeletal: leg pain Objective Exam Vital Signs Vital Signs Date Time Temp Pulse Resp B/P (MAP) Pulse Ox O2 Delivery O2 Flow Rate FiO2 12/19/18 18:33 96 Nasal Cannula 3.00 12/19/18 15:56 36.2 80 16 118/76 Capillary Refill : Less Than 3 Seconds General Appearance: No Apparent Distress, WD/WN HEENT: PERRL/EOMI, Normal ENT Inspection, Pharynx Normal, Moist Mucous Membranes Neck: Full Range of Motion, Non Tender, Supple Respiratory: No Accessory Muscle Use, No Respiratory Distress Cardiovascular: Regular Rate, Rhythm, No Edema, No Gallop, No JVD, No Murmur, Normal Peripheral Pulses Gastrointestinal: Normal Bowel Sounds, No Organomegaly, No Pulsatile Mass, Soft, Tenderness, Other Back: Normal Inspection, No CVA Tenderness, No Vertebral Tenderness Extremity: Normal Capillary Refill, Normal Range of Motion, No Calf Tenderness, No Pedal Edema, Other Neurologic/Psychiatric: Alert, Oriented x3, No Motor/Sensory Deficits, Normal Mood/Affect, change control specialist II-XII Norm as Tested, Motor Weakness Skin: Normal Color, Warm/Dry Lymphatic: No Adenopathy Results/Procedures Lab Laboratory Tests 12/19/18 05:30 Patient resulted labs reviewed. FIM Transfers Therapy Code Descriptions/Definitions Functional [place] Measure: 0=Not Assessed/NA 4=Minimal Assistance 1=Total Assistance 5=Supervision or Setup 2=Maximal Assistance 6=Modified [place] 3=Moderate Assistance 7=Complete [place] Therapy Quality Codes: 6 Independent with activity with or without an assistive device 5 Patient requires set up or clean up by helper. Patient completes activity by themselves 4 Supervision or touching assist (CGA). [place] provide cues , steadying assist 3 The helper provides less than half the effort to complete the activity 2 The helper provides more than half the effort to complete the activity 1 Dependent. The helper does all the effort to complete an activity 7 Patient refused to complete or attempt activity 9 The patient did not perform the activity before the current illness or injury 88 Not attempted due to Medical conditions or safety concerns Transfers (B, C, W/C) (FIM): 5 Scootin Rollin Roll Left to Right (QC): 6 Supine to/from Sit: 6 Sit to/from Stand: 5 Sit to Lying (QC): 6 Sit to Stand (QC): 5 Chair/Auf-nx-Dajoz Xfer(QC): 6 Bed to/from Chair: 5 Car Transfer (QC): 88 (Unsafe to attempt car transfer at this time. ) Gait Training Does the Patient Walk?: Yes Gait (FIM): 5 Distance (FIM): 3=150 ft Distance: 100, 160 Walk 10 feet (QC): 5 Walk 50 ft with 2 Turns(QC): 6 Walk 150 ft (QC): 88 Walking 10ft/uneven surface-QC: 88 Gait Level of Assist: 5 Gait Persons Needed: 2 (2nd person required for assist following with w/c, transport of wound vac, IV pole and O2 tank) Gait Assistive Device: FWW Wheelchair Training Does the Pt Use a Wheelchair?: Yes Wheelchair (FIM): 5 Wheelchair Distance: 3=150 ft Distance: 150'x2 Wheelchair Level of Assist: 5 Wheel 50 ft with 2 turns (QC): 5 Wheel 150 ft (QC): 5 Type of Wheelchair: Manual Stair Training Stair Training: Handrails/: uses walker Stairs (FIM): 1 #of Steps: 1 1 Step (curb) (QC): 5 4 Steps (QC): 88 12 Steps (QC): 88 Stairs: Pattern: Step to Level of Assist: 5 Balance Picking up an Object (QC): 88 Mental Status/Objective Comprehension: 7 Expression: 7 Social Interaction: 7 Problem Solvin Memory: 6 ADL-Treatment Feedin (Pt able to open all containers. Pt able to use utensils correctly and bring food and drink to mouth.) Eating (QC): 6 Groomin (Pt sitting in w/c at sink. Pt able to brush teeth and hair at sink. ) Oral Hygiene (QC): 6 Bathin (Pt required grab bar, shower bench, and hand held shower head. Pt required assist to wash buttocks, under stomach, and martha area due to decreased activity tolerance. ) Bathing Location: L Arm, R Arm, L Upper Leg, R Upper Leg, L Lower Leg (including foot), R Lower Leg (including foot), Chest Shower/Bathe Self (QC): 3 Upper Extremity Dressin (Pt required assist to [facility] gown due to IV lines. Pt able to don shirt by self, set up. ) Upper Body Dressing (QC): 5 Lower Extremity Dressin (Pt able to don briefs and pants up to waist by self. Pt required assist to manuever clothing above waist over stomach. Pt able to adjust clothing on backside. ) Lower Body Dressing (QC): 3 On/Off Footwear (QC): 6 (Wears slip on shoes) Toiletin (Pt able to adjust clothing before and after voiding and BM. Pt required assist to cleanse self. ) Toileting Hygiene (QC): 3 Toilet/Commode Transfer: 5 (Pt requires FWW and grab bar. SBA while pt while stand to sit. ) Toilet Transfer (QC): 4 Shower: 5 Assessment/Plan Assessment and Plan Assess & Plan/Chief Complaint Plan: IRF protocol OOB in chair most of day today Advanced diet doing well at Dysphagia 3 Right flank hematoma now resolved Lovenox maintained for DVT PPx O2 maintained and weaning well now at 2L/min which she is on that at home PLOF was ambulating at home Ostomy care per surgical service to help with leakage by placing wound vac which is tolerated well but will need to maintain that for wound healing Left leg radiculopathy evaluated and will managed conservatively but has spine disease prior to this hospital stay Monitor labs prn Pet pass was successful and hopefully will be able to see the dog later Psych evaluation for depression is appreciated and I changed meds to her recs. Depression improved Left leg radiculopathy managed conservatively Replace potassium PO BID Check labs prn Abx completed (1) Myopathy (2) COPD (chronic obstructive pulmonary disease) Status: Chronic Qualifiers: COPD type: unspecified COPD Qualified Codes: J44.9 - Chronic obstructive pulmonary disease, unspecified (3) Hypokalemia Status: Acute (4) Diabetes mellitus, type 2 Status: Chronic Qualifiers: Diabetes mellitus longterm insulin use: with longterm use Diabetes mellitus complication status: with other specified complication Qualified Codes: E11.69 - Type 2 diabetes mellitus with other specified complication; Z79.4 - FCI (current) use of insulin (5) Ventilator dependence Status: Resolved Resolution Date/Time: 11/25/18 @ 20:44 (6) Enterocutaneous fistula Status: Acute (7) Obesity hypoventilation syndrome Status: Chronic (8) On total parenteral nutrition (TPN) Status: Acute (9) BRAYAN treated with BiPAP Status: Chronic (10) Smoker Status: Chronic ALEIDA LICEA DO Dec 19, 2018 20:00
[2018-12-20] MEDS: MELATONIN 3 MG TABLET PO PRN ×2 (00:20→21:27)
[2018-12-20 05:50] VITALS: BP 145/91
[2018-12-20] MEDS: CATHETER FLUSH 10 ML SYR IV SCH ×3 (06:51→22:15)
[2018-12-20] MEDS: inSUlin ASPART (NovoLOG) 1 UNIT/0.01 ML (CHARGE PER UNIT) SC SCH ×4 (06:52→21:20)
[2018-12-20] MEDS: RT-ADVAIR HFA 115/21 MCG PER PUFF IH SCH ×2 (07:18→21:26)
--- NOTE | 2018-12-20 08:10 | Cardiology Progress Note ---
Subjective Date Seen by Provider: Dec 20, 2018 Time Seen by Provider: 08:10 Subjective/Events-last exam Patient is sitting up in bed, no new complaints. Denies any chest pain or d yspnea. Objective-Cardiology Exam Last Set of Vital Signs Vital Signs 12/20/18 12/20/18 05:50 07:18 Temp 37.2 Pulse 82 Resp 20 B/P (MAP) 145/91 Pulse Ox 97 O2 Delivery Nasal Cannula O2 Flow Rate 3.00 Capillary Refill : Less Than 3 Seconds I&O Intake and Output 12/20/18 00:00 Intake Total 835 ml Balance 835 ml Intake Oral 750 ml IV Total 85 ml # Voids 8 # Bowel Movements 5 General: Alert, Oriented X3, Cooperative, No Acute Distress HEENT: Atraumatic, PERRLA Neck: Supple, No JVD, No Thyromegaly Lungs: Clear to Auscultation, Normal Air Movement Heart: Regular Rate Abdomen: Normal Bowel Sounds, Soft, No Tenderness Extremities: No Clubbing, No Cyanosis, No Edema, Normal Pulses, No Tendernes s/Swelling Skin: No Significant Lesion Neuro: Normal Speech, Cranial Nerves 3-12 NL Psych/Mental Status: Mental Status NL A/P-Cardiology Admission Diagnosis Respiratory failure COPD HTN HLP Assessment/Plan Status post respiratory failure, resolved, using C Pap on and off, Continue to monitor Enterocutaneous fistula postoperatively, 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 Olvera Acute non-ST elevation myocardial infarction, poor R-wave progression in the anterior leads, probably type II myocardial infarctions due to respiratory failure, underlying coronary artery disease cannot be entirely excluded. Echocardiogram showed normal LV function. Continue with conservative management at this time, continue to monitor. Troponin level trended down, no acute EKG changes suggestive of active ischemia, conservative management at this time. Consider stress test as outpatient. Hypertension, controlled, monitor blood pressure Hyperlipidemia maintained on Lipitor, on hold at this point COPD, oxygen dependent, receiving therapy. Morbid obesity Diabetes mellitus, followed and managed by primary care physician History of tobaccoism Generalized debility/weakness. Continue to monitor. Clinical Quality Measures DVT/VTE Risk/Contraindication: Risk Factor Score Per Nursin RFS Level Per Nursing on Admit: 4+=Very High Supervisory-Addendum Brief Supervisory Addendum Participated in pt care: history, MDM, physical Personally performed: exam, history, MDM Care discussed with: ASHLEIGH Notes: patient was seen and evaluated with Esau, on examination lungs were clear to auscultation bilateral, heart is regular rate and rhythm. I will continue current medication, scheduled for a stent placement tomorrow. Restarting aspirin Plavix as soon as possible is recommended ESAU WILCOX Dec 20, 2018 08:10 AUSTEN MARTÍNEZ MD Dec 20, 2018 09:01
[2018-12-20] MEDS: DOCUSATE SODIUM 100 MG (COLACE) CAP PO SCH ×2 (08:45→21:20)
[2018-12-20] MEDS: FUROSEMIDE 20 MG (LASIX) TAB PO SCH (09:24)
[2018-12-20] MEDS: meTOprolol TARTRATE 25 MG (LOPRESSOR) TABLET PO SCH ×3 (09:24→21:25)
[2018-12-20] MEDS: MAGNESIUM OXIDE (MAG-OX)400 MG TAB PO SCH (09:24)
[2018-12-20] MEDS: DULoxetine 30 MG (CYMBALTA) CAP PO SCH (09:24)
[2018-12-20] MEDS: VITAMIN D3 5,000 UNITS (CHOLECALCIFEROL ) CAPSULE PO SCH (09:24)
[2018-12-20] MEDS: FLUoxetine HCL 20 MG (PROzac) CAP PO SCH (09:24)
[2018-12-20] MEDS: OMEGA 3 (FISH OIL) 1000 MG CAP PO SCH (09:24)
[2018-12-20] MEDS: FAMOTIDINE 20 MG (PEPCID) TABLET PO SCH ×2 (09:24→21:25)
[2018-12-20] MEDS: LINAGLIPTIN (TRADJENTA) 5 MG TABLET PO SCH (09:24)
[2018-12-20] MEDS: lisINopril 20 MG (PRINIVIL) TABLET PO SCH (09:24)
[2018-12-20] MEDS: amLODIPine 10 MG (NORVASC) TAB PO SCH (09:24)
[2018-12-20] MEDS: KCL 10 MEQ TAB (MICRO K) PO SCH ×2 (09:24→21:25)
[2018-12-20] MEDS: NICOTINE PATCH REMOVAL TP SCH (09:25)
[2018-12-20] MEDS: NICOTINE 21 MG (NICODERM) PATCH TD SCH (09:25)
[2018-12-20] MEDS: SENNA W/DOCUSATE (SENOKOT S) TABLET PO SCH ×2 (09:28→21:20)
--- NOTE | 2018-12-20 09:35 | PM&R Progress Note ---
Subjective HPI/CC On Admission Date Seen by Provider: Dec 20, 2018 Time Seen by Provider: 09:00 Chief complaint: Disuse myopathy. HPI: This is a 63yoWF [facility] Pt known to me from last week hospital admission when she required intubation for acute on chronic respiratory failure with obesity-hypoventilation syndrome following hernia repair. She was able to be extubated without complication and continued to be on high flow oxygen and had suffered these issues following an uncomplicated ventral hernia surgery. Due to her morbid obesity and likely chronic CO2 retention she went into respiratory failure, had significant difficulties with multisystem organ dysfunction and was eventually able to move down to fourth floor but repeat CT scam obtained due to elevated white count per Dr. Olvera showed some sort of fistula. 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 She remained on TPN, clear liquid diet only and IV antibiotics to help heal that area. At this current time, the Pt is denying any pain and is getting around better since she was living independently and ambulating at home. The goal is to return to near prior level of function and be able to return back to independent level of living. Subjective/Events-last exam Sugars are okay, 150 this morning. No hematoma from the Lovenox anymore. Wound vac off and went to dry dressing changes but may need to have the wound vac replaced. Redness around the area still present but looks a little better. Stopping antibiotics on Octreotide but that may change if Dr. Olvera evaluates the need to restart. Bowels are incontinent which is normal for her since her resections. Doesn't sleep well at night overall and that has been a struggle and we have tried multiple things, sleeping pills do not work for her. Check meds and labs Conferred with RN Reviewed therapy notes Overall improving status Review of Systems General: Fatigue, Other Gastrointestinal: Abdominal Pain Musculoskeletal: leg pain Objective Exam Vital Signs Vital Signs Date Time Temp Pulse Resp B/P (MAP) Pulse Ox O2 Delivery O2 Flow Rate FiO2 12/20/18 18:00 37.6 78 18 127/72 96 Nasal Cannula 2.00 Capillary Refill : Less Than 3 Seconds General Appearance: No Apparent Distress, WD/WN HEENT: PERRL/EOMI, Normal ENT Inspection, Pharynx Normal, Moist Mucous Membranes Neck: Full Range of Motion, Non Tender, Supple Respiratory: No Accessory Muscle Use, No Respiratory Distress Cardiovascular: Regular Rate, Rhythm, No Edema, No Gallop, No JVD, No Murmur, Normal Peripheral Pulses Gastrointestinal: Normal Bowel Sounds, No Organomegaly, No Pulsatile Mass, Soft, Tenderness, Other Back: Normal Inspection, No CVA Tenderness, No Vertebral Tenderness Extremity: Normal Capillary Refill, Normal Range of Motion, No Calf Tenderness, No Pedal Edema, Other Neurologic/Psychiatric: Alert, Oriented x3, No Motor/Sensory Deficits, Normal 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 FIM Transfers Therapy Code Descriptions/Definitions Functional [place] Measure: 0=Not Assessed/NA 4=Minimal Assistance 1=Total Assistance 5=Supervision or Setup 2=Maximal Assistance 6=Modified [place] 3=Moderate Assistance 7=Complete [place] Therapy Quality Codes: 6 Independent with activity with or without an assistive device 5 Patient requires set up or clean up by helper. Patient completes activity by themselves 4 Supervision or touching assist (CGA). [place] provide cues , steadying assist 3 The helper provides less than half the effort to complete the activity 2 The helper provides more than half the effort to complete the activity 1 Dependent. The helper does all the effort to complete an activity 7 Patient refused to complete or attempt activity 9 The patient did not perform the activity before the current illness or injury 88 Not attempted due to Medical conditions or safety concerns Transfers (B, C, W/C) (FIM): 5 Scootin Rollin Roll Left to Right (QC): 6 Supine to/from Sit: 6 Sit to/from Stand: 5 Sit to Lying (QC): 6 Sit to Stand (QC): 5 Chair/Kkn-ns-Plywg Xfer(QC): 6 Bed to/from Chair: 5 Car Transfer (QC): 88 (Unsafe to attempt car transfer at this time. ) Gait Training Does the Patient Walk?: Yes Gait (FIM): 5 Distance (FIM): 3=150 ft Distance: 100, 160 Walk 10 feet (QC): 5 Walk 50 ft with 2 Turns(QC): 6 Walk 150 ft (QC): 88 Walking 10ft/uneven surface-QC: 88 Gait Level of Assist: 5 Gait Persons Needed: 2 (2nd person required for assist following with w/c, transport of wound vac, IV pole and O2 tank) Gait Assistive Device: FWW Wheelchair Training Does the Pt Use a Wheelchair?: Yes Wheelchair (FIM): 5 Wheelchair Distance: 3=150 ft Distance: 150'x2 Wheelchair Level of Assist: 5 Wheel 50 ft with 2 turns (QC): 5 Wheel 150 ft (QC): 5 Type of Wheelchair: Manual Stair Training Stair Training: Handrails/: uses walker Stairs (FIM): 1 #of Steps: 1 1 Step (curb) (QC): 5 4 Steps (QC): 88 12 Steps (QC): 88 Stairs: Pattern: Step to Level of Assist: 5 Balance Picking up an Object (QC): 88 Mental Status/Objective Comprehension: 7 Expression: 7 Social Interaction: 7 Problem Solvin Memory: 6 ADL-Treatment Feedin (Pt able to open all containers. Pt able to use utensils correctly and bring food and drink to mouth.) Eating (QC): 6 Groomin (Pt sitting in w/c at sink. Pt able to brush teeth and hair at sink. ) Oral Hygiene (QC): 6 Bathin (Pt required grab bar, shower bench, and hand held shower head. Pt required assist to wash buttocks, under stomach, and martha area due to decreased activity tolerance. ) Bathing Location: L Arm, R Arm, L Upper Leg, R Upper Leg, L Lower Leg (including foot), R Lower Leg (including foot), Chest Shower/Bathe Self (QC): 3 Upper Extremity Dressin (Pt required assist to do hospital gown due to IV lines. Pt able to don shirt by self, set up. ) Upper Body Dressing (QC): 5 Lower Extremity Dressin (Pt able to don briefs and pants up to waist by self. Pt required assist to manuever clothing above waist over stomach. Pt able to adjust clothing on backside. ) Lower Body Dressing (QC): 3 On/Off Footwear (QC): 6 (Wears slip on shoes) Toiletin (Pt able to adjust clothing before and after voiding and BM. Pt required assist to cleanse self. ) Toileting Hygiene (QC): 3 Toilet/Commode Transfer: 5 (Pt requires FWW and grab bar. SBA while pt while stand to sit. ) Toilet Transfer (QC): 4 Shower: 5 Assessment/Plan Assessment and Plan Assess & Plan/Chief Complaint Plan: IRF protocol OOB in chair most of day every day Advanced diet doing well at Dysphagia 3 Right flank hematoma now resolved Lovenox maintained for DVT PPx O2 maintained and weaning well now at 2L/min which she is on that at home PLOF was ambulating at home Ostomy care per surgical service and now wound vac DC and wet to dry dressings intact Left leg radiculopathy evaluated and will managed conservatively but has spine disease prior to this hospital stay Monitor labs prn Pet pass was successful and hopefully will be able to see the dog later Psych evaluation for depression is appreciated and I changed meds to her recs. 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
--- NOTE | 2018-12-20 09:58 | Occupational Ther Daily Note ---
OT Current Status-Daily Note Subjective Pt in bed, agrees to treatment, but states she is not feeling as well today. Reports 8/10 pain in left foot. RN present and provided pain medication. Mental Status/Objective Therapy Code Descriptions/Definitions Functional [place] Measure: 0=Not Assessed/NA 4=Minimal Assistance 1=Total Assistance 5=Supervision or Setup 2=Maximal Assistance 6=Modified [place] 3=Moderate Assistance 7=Complete [place] Attachments: Oxygen ADL-Treatment Pt supine to sit with supervision. Pt declined bathing, but would like to get dressed and complete grooming. Pt transferred to w/c with supervision. Sat at sink to complete grooming tasks. Pt washed face, combed hair and completed oral care with set up. Transfer w/c <-> toilet with supervision using grab bars for balance and safety. Pt required assist to complete thorough toileting hygiene. Washed hands at sink without assist. Pt donned pullover shirt with set up. Pt able to thread bilateral LE into Depends and pants. Stood with supervision for balance during pant hike. Pt takes occasional rest breaks throughout treatment. Requests to remain seated in w/c after session. All needs met. Therapy Code Descriptions/Definitions Functional [place] Measure: 0=Not Assessed/NA 4=Minimal Assistance 1=Total Assistance 5=Supervision or Setup 2=Maximal Assistance 6=Modified [place] 3=Moderate Assistance 7=Complete [place] Therapy Quality Codes: 6 Independent with activity with or without an assistive device 5 Patient requires set up or clean up by helper. Patient completes activity by themselves 4 Supervision or touching assist (CGA). [place] provide cues , steadying assist 3 The helper provides less than half the effort to complete the activity 2 The helper provides more than half the effort to complete the activity 1 Dependent. The helper does all the effort to complete an activity 7 Patient refused to complete or attempt activity 9 The patient did not perform the activity before the current illness or injury 88 Not attempted due to Medical conditions or safety concerns Grooming (FIM): 5 Oral Hygiene (QC): 5 Upper Body (FIM): 5 Upper Body Dressing (QC): 5 Lower Body Dressing (FIM): 5 Lower Body Dressing (QC): 4 Toileting (FIM): 3 Toileting Hygiene (QC): 3 Toilet/Commode Transfer (FIM): 5 Toilet Transfer (QC): 4 OT Short Term Goals Short Term Goals Time Frame: Dec 08, 2018 Eating(FIM): 5 Grooming(FIM): 5 Bathing(FIM): 4 Upper Body Dressing(FIM): 4 Lower Body Dressing(FIM): 3 Toileting(FIM): 3 Transfers (B,C,W/C) (FIM): 4 Toilet/Commode Transfer(FIM): 4 Shower Transfer(FIM): 4 Additional Short Term Goals: 1-Demonstrate ADL Tasks, 2-Verbalize Understanding, 3-ImproveStrength/Juan F 1=Demonstrate adherence to instructed precautions during ADL tasks. 2=Patient will verbalize/demonstrate understanding of assistive devices/modifications for ADL. 3=Patient will improve strength/tolerance for activity to enable patient to perform ADL's. OT Prison Goals Prison Goals Time Frame: Dec 22, 2018 Eating (FIM): 6 Eating (QC): 6 Groomin Oral Hygiene (QC): 6 Bathing(FIM): 5 Shower/Bathe Self (QC): 4 Upper Body Dressing(FIM): 5 Upper Body Dressing (QC): 4 Lower Body Dressing(FIM): 5 Lower Body Dressing (QC): 4 On/Off Footwear (QC): 4 Toileting(FIM): 6 Toileting Hygiene (QC): 6 Transfers (B,C,W/C) (FIM): 6 Toilet/Commode Transfer(FIM): 6 Toilet/Commode Transfer (QC): 6 Shower Transfer(FIM): 5 Additional Goals: 1-Demonstrate ADL Tasks, 2-Verbalize Understanding, 3- ImproveStrength/Juan F 1=Demonstrate adherence to instructed precautions during ADL tasks. 2=Patient will verbalize/demonstrate understanding of assistive devices/modifications for ADL. 3=Patient will improve strength/tolerance for activity to enable patient to perform ADL's. OT Education/Plan Discharge Recommendations Plan/Recommendations: Continue POC Treatment Plan/Plan of Care Patient would benefit from OT for education, treatment and training to promote independence in ADL's, mobility, safety and/or upper extremity function for ADL's. Plan of Care: ADL Retraining, Functional Mobility, Group Exercise/Act as Ind, UE Funct Exercise/Act Treatment Duration: Dec 22, 2018 Frequency: At least 5 of 7 days/Wk (IRF) Estimated Hrs Per Day: 1.5 hours per day Agreement: Yes Rehab Potential: Good Time/GCodes Start Time: 09:00 Stop Time: 09:45 Total Time Billed (hr/min): 45 Billed Treatment Time 1 visit, ADLx3(45minutes) DUNCAN HSIEH OT Dec 20, 2018 09:58
--- NOTE | 2018-12-20 10:19 | Speech Therapy Daily Note ---
Speech Daily Progress Note Subjective Date Seen by Provider: Dec 20, 2018 Time Seen by Provider: 00:30 The patient was resting in her bed, finishing her breakfast when I entered her room. Objective Patient utilizes compensatory strategies as trained at 90% with minimal to no verbal cues. Assessment Assessment Current Status: Good Progress Treatment Plan Continue Plan of Care Communication Comprehension: 7 Expression: 7 Social Cognition Social Interaction: 7 Problem Solvin Memory: 6 Speech Short Term Goals Short Term Goals Short Term Goals 1) The patient will tolerate least restrictive diet level without s/s of aspiration at 90% or greater. 2) The patient will utilize compensatory strategies as trained for safe oral intake at 90% or greater given minimal verbal cues. Speech Half-Way Goals Professor Of [employer] Goals The patient will maintain adequate nutrition/hydration via safe effective swallow function. Speech-Plan Patient/Family Goals Patient/Family Goals: The patient will return to her home post rehab. Treatment Plan Speech Therapy Treatment Plan: Continue Plan of Care The patient has had her wound vac and IV discontinued which gives the patient increased freedom for movement. Treatment Duration: Dec 23, 2018 Frequency: 5 times per week Estimated Hrs Per Day: .25 hour per day Rehab Potential: Good Barriers to Learning: The patient has had a complex medical status. Pt/Family Agrees to Plan: Yes Safety Risks/Education Teaching Recipient: Patient Teaching Methods: Demonstration, Discussion Response to Teaching: Verbalize Understanding, Return Demonstration Education Topics Provided: Continued safety of oral intake. Time Speech Therapy Time In: 08:30 Speech Therapy Time Out: 09:00 Total Billed Time: 30 Billed Treatment Time 1, SADIE ANTHONY Carvalho Dec 20, 2018 10:19
[2018-12-20] MEDS: ENOXAPARIN 60 MG/0.6 ML (LOVENOX) SYR SC SCH (10:38)
--- NOTE | 2018-12-20 11:47 | Physical Therapy Daily Note ---
PT Daily Note-Current Subjective Patient in bed sleeping pre tx, agrees to PT upon waking, has no complaints of pain at rest. Patient needs to use the rest room and she does so and changes her brief by herself. Appearance Patient in wheelchair at bedside post tx with nurse call, phone, tray, all needs met. Mental Status Patient Orientation: Person, Place, Situation Attachments: Oxygen Transfers Therapy Code Descriptions/Definitions Functional [place] Measure: 0=Not Assessed/NA 4=Minimal Assistance 1=Total Assistance 5=Supervision or Setup 2=Maximal Assistance 6=Modified [place] 3=Moderate Assistance 7=Complete [place] Therapy Quality Codes: 6 Independent with activity with or without an assistive device 5 Patient requires set up or clean up by helper. Patient completes activity by themselves 4 Supervision or touching assist (CGA). [place] provide cues , steadying assi st 3 The helper provides less than half the effort to complete the activity 2 The helper provides more than half the effort to complete the activity 1 Dependent. The helper does all the effort to complete an activity 7 Patient refused to complete or attempt activity 9 The patient did not perform the activity before the current illness or injury 88 Not attempted due to Medical conditions or safety concerns Transfers (B, C, W/C) (FIM): 5 Scootin Rollin Supine to/from Sit: 6 Sit to/from Stand: 5 Bed to/from Chair: 5 Gait Training Gait (FIM): 5 (household exception) Distance: 100'x2 Gait Level of Assist: 5 Gait Persons Needed: 1 Gait Assistive Device: FWW slow but steady ambulation Exercises NuStep Minutes: 15 NuStep Workload: 4 Treatments LE exercise, bed mobility and transfers, ambulation, toileting Assessment Current Status: Fair Progress improving endurance and ambulation PT Short Term Goals Short Term Goals Time Frame: Dec 15, 2018 Transfers (B,C,W/C) (FIM): 4 Gait (FIM): 4 Distance (FIM): 3=150 ft Gait Assistive Device: FWW Wheelchair Distance: 150'x2 PT Heating Element Repairer Goals Heating Element Repairer Goals PT Heating Element Repairer Goals Time Frame: Dec 29, 2018 Transfers (B,C,W/C) (FIM): 6 Sit to Lying (QC): 6 Lying-Sitting on Side/Bed(QC): 6 Sit to Stand (QC): 6 Rollin Roll Left to Right (QC): 6 Chair/Lpu-bs-Bwrll Xfer(QC): 6 Car Transfer (QC): 6 Does the Patient Walk: Yes Gait (FIM): 6 Gait distance (FIM): 3=150 ft Walk 10 feet (QC): 6 Walk 10ft-Uneven Surface(QC): 6 Walk 50ft with 2 Turns (QC): 6 Walk 150 ft (QC): 6 Gait Assistive Device: FWW Does the Pt use WC or Scooter?: No Stairs (FIM): 5 # of Steps: 4 1 Step (curb) (QC): 6 4 Steps (QC): 6 12 Steps (QC): 9 Picking up an Object (QC): 9 PT Plan Problem List Problem List: Activity Tolerance, Functional Strength, Safety, Balance, Gait, Transfer, Bed Mobility, ROM Treatment/Plan Treatment Plan: Continue Plan of Care Treatment Plan: Bed Mobility, Education, Functional Activity Juan F, Functional Strength, Group Therapy, Gait, Safety, Therapeutic Exercise, Transfers Treatment Duration: Dec 29, 2018 Frequency: At least 5 of 7 days/Wk (IRF) Estimated Hrs Per Day: 1.5 hours per day Patient and/or Family Agrees t: Yes Safety Risks/Education Patient Education: Gait Training, Transfer Techniques, Correct Positioning, Safety Issues Teaching Recipient: Patient Teaching Methods: Demonstration, Discussion Response to Teaching: Reinforcement Needed Time/GCodes Time In: 1100 Time Out: 1145 Total Billed Treatment Time: 45 Total Billed Treatment 1 visit EX 15' GT 15' FA 15' KYUNG DE LUNA PT Dec 20, 2018 11:47
--- NOTE | 2018-12-20 11:48 | NUR ---
Leader Rounding. Pt's plan is therapy needed to get her home. She is glad she is no longer on a clear diet. Everyone has been good for her.
--- NOTE | 2018-12-20 12:51 | NUR ---
Met with patient as a follow-up to yesterday's visits with both [facility] and [facility]. Patient states that despite the visits with the TOMI's, she intends to return home. Patients reiterates that her son lives "a couple blocks" from her and that he is available to assist, when needed. Patient reminded of tomorrow's Care Team Conference; no concerns, at this time. SS to continue following as it relates to discharge planning.
--- NOTE | 2018-12-20 13:38 | Progress Note ---
Subjective Date Seen by a Provider: Dec 20, 2018 Time Seen by a Provider: 13:30 Subjective/Events-last exam doing well. minimal skin redness/erythema, no fluctuance. minimal drainage. tolerating diet. no fever/chills. Objective Exam Vital Signs Date Time Temp Pulse Resp B/P (MAP) Pulse Ox O2 Delivery O2 Flow Rate FiO2 12/20/18 07:18 97 Nasal Cannula 3.00 12/20/18 05:50 37.2 82 20 145/91 94 High Flow N/C 3.00 12/19/18 20:00 High Flow N/C 2.00 12/19/18 18:33 96 Nasal Cannula 3.00 12/19/18 17:10 High Flow N/C 3.00 12/19/18 15:56 36.2 80 16 118/76 96 High Flow N/C 4.00 I & O 12/20/18 07:00 Intake Total 985 ml Balance 985 ml Capillary Refill : Less Than 3 Seconds General Appearance: No Apparent Distress HEENT: PERRL/EOMI Neck: Full Range of Motion Respiratory: Chest Non Tender, Decreased Breath Sounds Cardiovascular: Regular Rate, Rhythm Gastrointestinal: normal bowel sounds, non tender, soft Extremity: Normal Capillary Refill Neurologic/Psychiatric: Alert, Oriented x3 Skin: Normal Color Lymphatic: No Adenopathy Results Lab Laboratory Tests 12/19/18 15:55: Glucometer 131H 12/19/18 20:12: Glucometer 220H 12/20/18 05:39: Glucometer 114H 12/20/18 11:35: Glucometer 106 Assessment/Plan Assessment/Plan Assess & Plan/Chief Complaint s/p recurrent inc hernia repair with exacerbation COPD, exacerbation CHF, hypergylemia and developement enterocutaneous fistula. cont current care. wet to dry BID to allow for granulation tissue and eventual closure. will hold off abx for now. if superficial/subcutaneous infection develops will start PO abx. continue plan for IRU for eventual independence. Clinical Quality Measures DVT/VTE Risk/Contraindication: Risk Factor Score Per Nursin RFS Level Per Nursing on Admit: 4+=Very High WENDI ELIZABETH MD Dec 20, 2018 13:38
--- NOTE | 2018-12-20 13:59 | Progress Note ---
[facility] 12/20/18 1359: Subjective Date Seen by a Provider: Dec 20, 2018 Time Seen by a Provider: 13:52 Subjective/Events-last exam Seen by Cardiology and scheduled for a stent placement tomorrow. Cardiology recommends restarting aspirin Plavix as soon as possible Seen by [place] regarding assisted living, pt reluctant, states she would rather go home and that her son lives close enough to be able to help her c/o L foot pain Participated in PT/OT/ST Zosyn to be discontinued today Review of Systems General: No Chills, No Night Sweats, No Fatigue HEENT: No Head Aches Pulmonary: No Dyspnea, No Cough, No Pleuritic Chest Pain Cardiovascular: No: Chest Pain, Palpitations Gastrointestinal: No: Nausea, Vomiting Neurological: Weakness Objective Exam Last Set of Vital Signs Vital Signs Date Time Temp Pulse Resp B/P (MAP) Pulse Ox O2 Delivery O2 Flow Rate FiO2 12/20/18 07:18 97 Nasal Cannula 3.00 12/20/18 05:50 37.2 82 20 145/91 Capillary Refill : Less Than 3 Seconds I&O Intake and Output 12/20/18 00:00 Intake Total 835 ml Balance 835 ml Intake Oral 750 ml IV Total 85 ml # Voids 8 # Bowel Movements 5 General: Alert, Oriented X3, Cooperative, No Acute Distress HEENT: Atraumatic Neck: Supple Lungs: Clear to Auscultation, Normal Air Movement Heart: Regular Rate, Normal S1, Normal S2, No Murmurs Extremities: No Clubbing, No Cyanosis Skin: No Rashes Results Lab Laboratory Tests 12/19/18 15:55: Glucometer 131H 12/19/18 20:12: Glucometer 220H 12/20/18 05:39: Glucometer 114H 12/20/18 11:35: Glucometer 106 Assessment/Plan Assessment/Plan Assess & Plan/Chief Complaint Assessment: 1. Potassium of 3.4 2. tolerating wound vac 3. Left leg radiculopathy 4. Affect improved Plan 1. IRF protocol 2.Replace potassium PO BID 3.Monitor mental state/mood 4. Maintain Wound vac for wound healing 5. Left leg radiculopathy manage conservatively Clinical Quality Measures DVT/VTE Risk/Contraindication: Risk Factor Score Per Nursin RFS Level Per Nursing on Admit: 4+=Very High DANG LICEA DO 12/20/18 1635: Supervisory-Addendum Brief Verification & Attestation Participated in pt care: history, MDM, physical Personally performed: exam, history, MDM, supervision of care Care discussed with: Medical Student Procedures: n/a Results interpretation: Verified all documentation Verification and Attestation of Medical Student E/M Service A medical student performed and documented this service in my presence. I reviewed and verified all information documented by the medical student and made modifications to such information, when appropriate. I personally performed the physical exam and medical decision making. Dang Licea, Dec 20, 2018,16:35 [facility] Dec 20, 2018 13:59 DANG LICEA DO Dec 20, 2018 16:35
--- NOTE | 2018-12-20 14:45 | Therapy Group Daily Note ---
Therapy Daily Group Note Patient Education Topic Home Safety, Fall Prevention, Home Safety Session Ratio (pt:therapist): 4:1 Goal of Session: Education on ARU Expectations, Home Safety Strategies Goal Met for this Session: Yes Pt Benefit of Group: Contributions to Others, F/U Use of Strategies @Home, Increased Functional Safety, Improved Cognition, Recognition of Peers, Social ization pt transported to [facility] via w/c. group consisted of introducation (name, where you're from, and home safety question). pt shared approperiate and was activity listening and engaging with peers. Group therapy with focused on home safety and cognitive trivia. Then participated collectively with group for education regarding home safety strategies, adaptive equipment, and further education on discharge planning. This group also contained trivia pertaining to history, thus engaging in memory and knowledge. pt then transported back to room and laying supine in bed post session. call light within reach, all needs met. Start Time: 13:00 Stop Time: 14:15 Total Billed Treatment 1, GRP 75 minutes GEMINI RODRIGUEZ OT Dec 20, 2018 14:45
[2018-12-20 18:00] VITALS: BP 127/72
--- NOTE | 2018-12-20 19:07 | NUR ---
bedside report received from DAVE JETT, assume care of pt
[2018-12-20 21:20] VITALS: BP 106/69
--- NOTE | 2018-12-20 21:25 | NUR ---
pt refused Colace & Senokot, fsbs 153 no ss insulin required
--- NOTE | 2018-12-20 21:27 | NUR ---
assessments & interventions completed see assessments & interventions, abd dressing changed wet to dry in saline packed in the abd pad & tape, tolerated well, up to bathroom with standby assist & walker
[2018-12-20] MEDS: ENOXAPARIN 40 MG/0.4 ML (LOVENOX) SYR SC SCH (22:14)
--- NOTE | 2018-12-20 22:14 | Progress Note - Hospitalist ---
[facility] 12/20/18 2214: Progress Note pt is improved affect and has making great progress with PT/OT. Pt has almost reached her Toy Stuffer FIM score of 6 for most of her PT/OT criteria; her only trouble Categories remain lower body dressing & Toileting. pt's wound is healing well. Pt expresses that she does not wish to go to assisted living and that she would rather be discharged home. States she Does not want to lose her apartment and that the process of moving into an assisted living facility would burden her greatly. She has home health and currently receives 32 hrs per week, which translates into 4.5-5 per day that she may utilize for cooked meals, cleaning, etc. Pt also has son who is willing and able to help her at home. Pt expresses that she feels safe at home. I believe pt is a good candidate for d/c home w/in next 1-2days with continued home-health care. DANG LICEA DO 12/21/18 0843: Supervisory-Addendum Brief Verification & Attestation Participated in pt care: history, MDM, physical Personally performed: exam, history, MDM, supervision of care Care discussed with: Medical Student Procedures: n/a Results interpretation: Verified all documentation Verification and Attestation of Medical Student E/M Service A medical student performed and documented this service in my presence. I reviewed and verified all information documented by the medical student and made modifications to such information, when appropriate. I personally performed the physical exam and medical decision making. Dang Licea Dec 21, 2018,08:43 [facility] Dec 20, 2018 22:14 DANG LICEA DO Dec 21, 2018 08:43
--- NOTE | 2018-12-21 04:28 | NUR ---
c/o pain level 8/10 on numeric scale, Ultram 50mg po given
--- NOTE | 2018-12-21 04:52 | NUR ---
rates pain level 3/10 on numeric scale
[2018-12-21 05:25] VITALS: BP 139/83
[2018-12-21] MEDS: inSUlin ASPART (NovoLOG) 1 UNIT/0.01 ML (CHARGE PER UNIT) SC SCH ×4 (06:00→21:37)
[2018-12-21] MEDS: CATHETER FLUSH 10 ML SYR IV SCH ×3 (06:20→21:49)
--- NOTE | 2018-12-21 07:06 | NUR ---
bedside report given to DAVE JETT
--- NOTE | 2018-12-21 08:46 | PM&R Progress Note ---
Subjective HPI/CC On Admission Date Seen by Provider: Dec 21, 2018 Time Seen by Provider: 08:45 Chief complaint: Disuse myopathy. HPI: This is a 63yoWF [facility] Pt known to me from last week hospital admission when she required intubation for acute on chronic respiratory failure with obesity-hypoventilation syndrome following hernia repair. She was able to be extubated without complication and continued to be on high flow oxygen and had suffered these issues following an uncomplicated ventral hernia surgery. Due to her morbid obesity and likely chronic CO2 retention she went into respiratory failure, had significant difficulties with multisystem organ dysfunction and was eventually able to move down to fourth floor but repeat CT scam obtained due to elevated white count per Dr. Olvera showed some sort of fistula. 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 She remained on TPN, clear liquid diet only and IV antibiotics to help heal that area. At this current time, the Pt is denying any pain and is getting around better since she was living independently and ambulating at home. The goal is to return to near prior level of function and be able to return back to independent level of living. Subjective/Events-last exam Left leg hurts all the time There is nothing that we can do until her fistula is healed in order to have anything like an epidural pain injection K pad will be tried since warm blanket tends to help Bowels are moving okay Sugars are good Wet to dry dressing will be continued Redness around the fistula site is much improved [place] to go home at [place] and does not want to go to assisted living and she looks like she is doing much better Check meds and labs Conferred with RN Reviewed therapy notes Overall improving status Review of Systems General: Fatigue Musculoskeletal: leg pain Objective Exam Vital Signs Vital Signs Date Time Temp Pulse Resp B/P (MAP) Pulse Ox O2 Delivery O2 Flow Rate FiO2 12/21/18 19:30 Nasal Cannula 3.00 12/21/18 17:12 36.6 84 18 115/67 98 Capillary Refill : Less Than 3 Seconds General Appearance: No Apparent Distress, WD/WN HEENT: PERRL/EOMI, Normal ENT Inspection, Pharynx Normal, Moist Mucous Membranes Neck: Full Range of Motion, Non Tender, Supple Respiratory: No Accessory Muscle Use, No Respiratory Distress Cardiovascular: Regular Rate, Rhythm, No Edema, No Gallop, No JVD, No Murmur, Normal Peripheral Pulses Gastrointestinal: Normal Bowel Sounds, No Organomegaly, No Pulsatile Mass, Soft, Tenderness, Other Back: Normal Inspection, No CVA Tenderness, No Vertebral Tenderness Extremity: Normal Capillary Refill, Normal Range of Motion, No Calf Tenderness, No Pedal Edema, Other Neurologic/Psychiatric: Alert, Oriented x3, No Motor/Sensory Deficits, Normal Mood/Affect, rn plastic surgery II-XII Norm as Tested, Motor Weakness Skin: Normal Color, Warm/Dry Lymphatic: No Adenopathy Results/Procedures Lab Patient resulted labs reviewed. FIM Transfers Therapy Code Descriptions/Definitions Functional [place] Measure: 0=Not Assessed/NA 4=Minimal Assistance 1=Total Assistance 5=Supervision or Setup 2=Maximal Assistance 6=Modified [place] 3=Moderate Assistance 7=Complete [place] Therapy Quality Codes: 6 Independent with activity with or without an assistive device 5 Patient requires set up or clean up by helper. Patient completes activity by themselves 4 Supervision or touching assist (CGA). [place] provide cues , steadying assist 3 The helper provides less than half the effort to complete the activity 2 The helper provides more than half the effort to complete the activity 1 Dependent. The helper does all the effort to complete an activity 7 Patient refused to complete or attempt activity 9 The patient did not perform the activity before the current illness or injury 88 Not attempted due to Medical conditions or safety concerns Transfers (B, C, W/C) (FIM): 5 Scootin Rollin Roll Left to Right (QC): 6 Supine to/from Sit: 6 Sit to/from Stand: 5 Sit to Lying (QC): 6 Sit to Stand (QC): 5 Chair/Zcu-gc-Hgaga Xfer(QC): 6 Bed to/from Chair: 5 Car Transfer (QC): 88 (Unsafe to attempt car transfer at this time. ) Gait Training Does the Patient Walk?: Yes Gait (FIM): 5 (household exception) Distance (FIM): 3=150 ft Distance: 100'x2 Walk 10 feet (QC): 5 Walk 50 ft with 2 Turns(QC): 6 Walk 150 ft (QC): 88 Walking 10ft/uneven surface-QC: 88 Gait Level of Assist: 5 Gait Persons Needed: 1 Gait Assistive Device: FWW Wheelchair Training Does the Pt Use a Wheelchair?: Yes Wheelchair (FIM): 5 Wheelchair Distance: 3=150 ft Distance: 150'x2 Wheelchair Level of Assist: 5 Wheel 50 ft with 2 turns (QC): 5 Wheel 150 ft (QC): 5 Type of Wheelchair: Manual Stair Training Stair Training: Handrails/: uses walker Stairs (FIM): 1 #of Steps: 1 1 Step (curb) (QC): 5 4 Steps (QC): 88 12 Steps (QC): 88 Stairs: Pattern: Step to Level of Assist: 5 Balance Picking up an Object (QC): 88 Mental Status/Objective Comprehension: 7 Expression: 7 Social Interaction: 7 Problem Solvin Memory: 6 ADL-Treatment Feedin (Pt able to open all containers. Pt able to use utensils correctly and bring food and drink to mouth.) Eating (QC): 6 Groomin Oral Hygiene (QC): 5 Bathin (Pt required grab bar, shower bench, and hand held shower head. Pt required assist to wash buttocks, under stomach, and martha area due to decreased activity tolerance. ) Bathing Location: L Arm, R Arm, L Upper Leg, R Upper Leg, L Lower Leg (including foot), R Lower Leg (including foot), Chest Shower/Bathe Self (QC): 3 Upper Extremity Dressin Upper Body Dressing (QC): 5 Lower Extremity Dressin Lower Body Dressing (QC): 4 On/Off Footwear (QC): 6 (Wears slip on shoes) Toiletin Toileting Hygiene (QC): 3 Toilet/Commode Transfer: 5 Toilet Transfer (QC): 4 Shower: 5 Assessment/Plan Assessment and Plan Assess & Plan/Chief Complaint Plan: IRF protocol OOB in chair most of day every day Advanced diet doing well at Dysphagia 3 Right flank hematoma now resolved Lovenox maintained for DVT PPx O2 maintained and weaning well now at 2L/min which she is on that at home PLOF was ambulating at home Ostomy care per surgical service and now wound vac DC and wet to dry dressings intact Left leg radiculopathy evaluated and will managed conservatively but has spine disease prior to this hospital stay Monitor labs prn Pet pass was successful and hopefully will be able to see the dog later Psych evaluation for depression is appreciated and I changed meds to her recs. Depression improved Left leg radiculopathy managed conservatively Replace potassium PO BID Check labs prn Abx completed [facility] appt 12/26/[address] Francois (1) Myopathy (2) COPD (chronic obstructive pulmonary disease) Status: Chronic Qualifiers: COPD type: unspecified COPD Qualified Codes: J44.9 - Chronic obstructive pulmonary disease, unspecified (3) Hypokalemia Status: Acute (4) Diabetes mellitus, type 2 Status: Chronic Qualifiers: Diabetes mellitus senior care insulin use: with termite inspector use Diabetes mellitus complication status: with other specified complication Qualified Codes: E11.69 - Type 2 diabetes mellitus with other specified complication; Z79.4 - intermediate accountant (current) use of insulin (5) Ventilator dependence Status: Resolved Resolution Date/Time: 11/25/18 @ 20:44 (6) Enterocutaneous fistula Status: Acute (7) Obesity hypoventilation syndrome Status: Chronic (8) On total parenteral nutrition (TPN) Status: Acute (9) BRAYAN treated with BiPAP Status: Chronic (10) Smoker Status: Chronic ALEIDA LICEA DO Dec 21, 2018 08:46
--- NOTE | 2018-12-21 09:00 | Cardiology Progress Note ---
Subjective Date Seen by Provider: Dec 21, 2018 Time Seen by Provider: 08:58 Subjective/Events-last exam Patient is sitting up in wheelchair, c/o left foot pain. Denies any chest pain or dyspnea. Review of Systems General: No Chills, No Night Sweats, No Fatigue, No Malaise, No Appetite, No Other HEENT: No Head Aches, No Visual Changes, No Eye Pain, No Ear Pain, No Dysphasia, No Sinus Congestion, No Post Nasal Drip, No Sore Throat, No Other Pulmonary: No Dyspnea, No Cough, No Pleuritic Chest Pain, No Other Objective-Cardiology Exam Last Set of Vital Signs Vital Signs 12/21/18 12/21/18 05:25 10:09 Temp 36.6 Pulse 81 Resp 18 B/P (MAP) 139/83 Pulse Ox 96 O2 Delivery Nasal Cannula O2 Flow Rate 3.00 Capillary Refill : Less Than 3 Seconds I&O Intake and Output 12/21/18 00:00 Intake Total 650 ml Balance 650 ml Intake Oral 650 ml # Voids 8 # Bowel Movements 6 General: Alert, Oriented X3, Cooperative, No Acute Distress HEENT: Atraumatic Neck: Supple Lungs: Clear to Auscultation, Normal Air Movement Heart: Regular Rate, Normal S1, Normal S2, No Murmurs Abdomen: Normal Bowel Sounds, Soft, No Tenderness Extremities: No Clubbing, No Cyanosis Skin: No Rashes Neuro: Normal Speech, Cranial Nerves 3-12 NL Psych/Mental Status: Mental Status NL Results Lab Laboratory Tests Test 12/20/18 11:35 12/20/18 17:01 12/20/18 21:22 12/21/18 05:49 Range/Units Glucometer 106 126 H 153 H 125 H 70-110 MG/DL Test 12/21/18 10:51 Range/Units Glucometer 140 H 70-110 MG/DL A/P-Cardiology Admission Diagnosis Respiratory failure COPD HTN HLP Assessment/Plan Status post respiratory failure, resolved, using C Pap on and off, Continue to monitor Enterocutaneous fistula postoperatively, 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 Olvera Acute non-ST elevation myocardial infarction, poor R-wave progression in the anterior leads, probably type II myocardial infarctions due to respiratory failure, underlying coronary artery disease cannot be entirely excluded. Echocardiogram showed normal LV function. Continue with conservative management at this time, continue to monitor. Troponin level trended down, no acute EKG changes suggestive of active ischemia, conservative management at this time. Consider stress test as outpatient. Hypertension, controlled, monitor blood pressure Hyperlipidemia, monitor as outpatient. COPD, oxygen dependent, receiving therapy. Morbid obesity Diabetes mellitus, followed and managed by primary care physician History of tobaccoism Generalized debility/weakness. Continue to monitor. Clinical Quality Measures DVT/VTE Risk/Contraindication: Risk Factor Score Per Nursin RFS Level Per Nursing on Admit: 4+=Very High Supervisory-Addendum Brief Supervisory Addendum Participated in pt care: history, MDM, physical Personally performed: exam, history, MDM Care discussed with: PA Notes: Patient was seen and evaluated. Reporting improvement, blood pressure is controlled. No changes are recommended ESAU WILCOX Dec 21, 2018 9:00 am AUSTEN MARTÍNEZ MD Dec 21, 2018 11:23 am
[2018-12-21] MEDS: NICOTINE PATCH REMOVAL TP SCH (09:20)
[2018-12-21] MEDS: DOCUSATE SODIUM 100 MG (COLACE) CAP PO SCH ×2 (09:21→21:26)
[2018-12-21] MEDS: VITAMIN D3 5,000 UNITS (CHOLECALCIFEROL ) CAPSULE PO SCH (09:21)
[2018-12-21] MEDS: LINAGLIPTIN (TRADJENTA) 5 MG TABLET PO SCH (09:22)
[2018-12-21] MEDS: KCL 10 MEQ TAB (MICRO K) PO SCH ×2 (09:22→21:22)
[2018-12-21] MEDS: lisINopril 20 MG (PRINIVIL) TABLET PO SCH (09:22)
[2018-12-21] MEDS: FUROSEMIDE 20 MG (LASIX) TAB PO SCH (09:22)
[2018-12-21] MEDS: meTOprolol TARTRATE 25 MG (LOPRESSOR) TABLET PO SCH ×3 (09:22→21:23)
[2018-12-21] MEDS: MAGNESIUM OXIDE (MAG-OX)400 MG TAB PO SCH (09:22)
[2018-12-21] MEDS: DULoxetine 30 MG (CYMBALTA) CAP PO SCH (09:22)
[2018-12-21] MEDS: FAMOTIDINE 20 MG (PEPCID) TABLET PO SCH ×2 (09:22→21:23)
[2018-12-21] MEDS: FLUoxetine HCL 20 MG (PROzac) CAP PO SCH (09:22)
[2018-12-21] MEDS: amLODIPine 10 MG (NORVASC) TAB PO SCH (09:22)
[2018-12-21] MEDS: OMEGA 3 (FISH OIL) 1000 MG CAP PO SCH (09:22)
[2018-12-21] MEDS: NICOTINE 21 MG (NICODERM) PATCH TD SCH (09:23)
[2018-12-21] MEDS: SENNA W/DOCUSATE (SENOKOT S) TABLET PO SCH ×2 (09:23→21:25)
--- NOTE | 2018-12-21 09:58 | Occupational Ther Daily Note ---
OT Current Status-Daily Note Subjective Pt alert sitting in w/c upon OT arrival. Pt states that L foot hurts and kept her awake last night. Reported pain to nrsg. Mental Status/Objective Patient Orientation: Person, Place, Time, Situation Therapy Code Descriptions/Definitions Functional [place] Measure: 0=Not Assessed/NA 4=Minimal Assistance 1=Total Assistance 5=Supervision or Setup 2=Maximal Assistance 6=Modified [place] 3=Moderate Assistance 7=Complete [place] Attachments: Central Line, Oxygen ADL-Treatment Pt performed sponge bath at sitting at sink. Pt brushed hair sitting at sink. Therapy Code Descriptions/Definitions Functional [place] Measure: 0=Not Assessed/NA 4=Minimal Assistance 1=Total Assistance 5=Supervision or Setup 2=Maximal Assistance 6=Modified [place] 3=Moderate Assistance 7=Complete [place] Therapy Quality Codes: 6 Independent with activity with or without an assistive device 5 Patient requires set up or clean up by helper. Patient completes activity by themselves 4 Supervision or touching assist (CGA). [place] provide cues , steadying assist 3 The helper provides less than half the effort to complete the activity 2 The helper provides more than half the effort to complete the activity 1 Dependent. The helper does all the effort to complete an activity 7 Patient refused to complete or attempt activity 9 The patient did not perform the activity before the current illness or injury 88 Not attempted due to Medical conditions or safety concerns Grooming (FIM): 6 Toileting (FIM): 5 (Supervision for manipulating clothing in standing using grabbars and cleanses self sitting on toilet.) Toileting Hygiene (QC): 5 Transfers (B, C, W/C) (FIM): 5 Toilet/Commode Transfer (FIM): 5 (Pt requires grab bar and w/c arm rest. SBA while pt sits down due to safety concerns. ) Other Treatment Pt propelled self using w/c to therapy gym. Pt required assist to maneuver oxgyen tank. Pt participated in upper body exercise using arm bike for duration 15 min at 15 watt resistance to increase strength for daily functional activity tasks. Pt required 3 rest breaks due to decreased activity tolerance. Pt propelled self back to room. Pt transferred to bed. Nrsg in room. Pts call light and phone in reach. Pts needs met. OT Short Term Goals Short Term Goals Time Frame: Dec 08, 2018 Eating(FIM): 5 Grooming(FIM): 5 Bathing(FIM): 4 Upper Body Dressing(FIM): 4 Lower Body Dressing(FIM): 3 Toileting(FIM): 3 Transfers (B,C,W/C) (FIM): 4 Toilet/Commode Transfer(FIM): 4 Shower Transfer(FIM): 4 Additional Short Term Goals: 1-Demonstrate ADL Tasks, 2-Verbalize Understanding, 3-ImproveStrength/Juan F 1=Demonstrate adherence to instructed precautions during ADL tasks. 2=Patient will verbalize/demonstrate understanding of assistive devices/modifications for ADL. 3=Patient will improve strength/tolerance for activity to enable patient to perform ADL's. OT Environmental Health Nurse Goals Shelter Goals Time Frame: Dec 22, 2018 Eating (FIM): 6 Eating (QC): 6 Groomin Oral Hygiene (QC): 6 Bathing(FIM): 5 Shower/Bathe Self (QC): 4 Upper Body Dressing(FIM): 5 Upper Body Dressing (QC): 4 Lower Body Dressing(FIM): 5 Lower Body Dressing (QC): 4 On/Off Footwear (QC): 4 Toileting(FIM): 6 Toileting Hygiene (QC): 6 Transfers (B,C,W/C) (FIM): 6 Toilet/Commode Transfer(FIM): 6 Toilet/Commode Transfer (QC): 6 Shower Transfer(FIM): 5 Additional Goals: 1-Demonstrate ADL Tasks, 2-Verbalize Understanding, 3- ImproveStrength/Juan F 1=Demonstrate adherence to instructed precautions during ADL tasks. 2=Patient will verbalize/demonstrate understanding of assistive devices/modifications for ADL. 3=Patient will improve strength/tolerance for activity to enable patient to perform ADL's. OT Education/Plan Problem List/Assessment Assessment: Decreased Activ Tolerance, Decreased UE Strength Discharge Recommendations Plan/Recommendations: Continue POC Treatment Plan/Plan of Care Patient would benefit from OT for education, treatment and training to promote independence in ADL's, mobility, safety and/or upper extremity function for ADL's. Plan of Care: ADL Retraining, Functional Mobility, Group Exercise/Act as Ind, UE Funct Exercise/Act Treatment Duration: Dec 22, 2018 Frequency: At least 5 of 7 days/Wk (IRF) Estimated Hrs Per Day: 1.5 hours per day Agreement: Yes Rehab Potential: Good Time/GCodes Start Time: 06:50 Stop Time: 08:05 Total Time Billed (hr/min): 75 Billed Treatment Time 1 visit- ADL 4 (60 min) EX 1 (15 min) CEDRIC DURANT Dec 21, 2018 09:58
[2018-12-21] MEDS: RT-ADVAIR HFA 115/21 MCG PER PUFF IH SCH ×2 (10:09→19:30)
--- NOTE | 2018-12-21 10:39 | Physical Therapy Daily Note ---
PT Daily Note-Current Subjective Pt. in w/c and states she was up and down all night and does not sleep well because of left foot and calf pain and paresthesia. Dr Conrad present as pt. states she has used heated blanket and it helped but does not last long enough. Dr dyer trial of warm moist heat Pain Numeric Pain Scale: 7 Location: Left Location Body Site: Ankle Pain Description: Stabbing Mental Status Patient Orientation: Normal For Age Transfers Therapy Code Descriptions/Definitions Functional [place] Measure: 0=Not Assessed/NA 4=Minimal Assistance 1=Total Assistance 5=Supervision or Setup 2=Maximal Assistance 6=Modified [place] 3=Moderate Assistance 7=Complete [place] Therapy Quality Codes: 6 Independent with activity with or without an assistive device 5 Patient requires set up or clean up by helper. Patient completes activity by themselves 4 Supervision or touching assist (CGA). [place] provide cues , steadying assist 3 The helper provides less than half the effort to complete the activity 2 The helper provides more than half the effort to complete the activity 1 Dependent. The helper does all the effort to complete an activity 7 Patient refused to complete or attempt activity 9 The patient did not perform the activity before the current illness or injury 88 Not attempted due to Medical conditions or safety concerns Transfers (B, C, W/C) (FIM): 6 Scootin Rollin Supine to/from Sit: 6 Sit to/from Stand: 6 Bed to/from Chair: 6 Gait Training Does the Patient Walk?: Yes Gait (FIM): 5 Distance (FIM): 3=150 ft (75,50,160) Gait Level of Assist: 5 Gait Persons Needed: 1 Gait Assistive Device: FWW this BUSINESS IMPROVEMENT MANAGER suggested this pt. use her shoes for gait as this may help with paresthesia, pt. stated this really did help and maybe assist for O2 at 3 L during gait, no LOB, good use of AD Exercises Supine Ex: Ankle pumps, Straight leg raise (HS stretches with ankle pumps for neural stretch) Supine Reps: 12 Seated Therapy Exercises: Ankle pumps, Sit to stand, Long arc quads Seated Reps: 12 Treatments taught pt. piriformis strtches 4 x 20s as well as HS stretches with ankle pump Assessment Current Status: Fair Progress wearing shoes with good sole and support as well as stretches seemed to help with pts. pain c/o PT Short Term Goals Short Term Goals Time Frame: Dec 15, 2018 Transfers (B,C,W/C) (FIM): 4 Gait (FIM): 4 Distance (FIM): 3=150 ft Gait Assistive Device: FWW Wheelchair Distance: 150'x2 PT Fans Clerk Goals Penitentiary Goals PT Penitentiary Goals Time Frame: Dec 29, 2018 Transfers (B,C,W/C) (FIM): 6 Sit to Lying (QC): 6 Lying-Sitting on Side/Bed(QC): 6 Sit to Stand (QC): 6 Rollin Roll Left to Right (QC): 6 Chair/Nhi-bl-Wlpdj Xfer(QC): 6 Car Transfer (QC): 6 Does the Patient Walk: Yes Gait (FIM): 6 Gait distance (FIM): 3=150 ft Walk 10 feet (QC): 6 Walk 10ft-Uneven Surface(QC): 6 Walk 50ft with 2 Turns (QC): 6 Walk 150 ft (QC): 6 Gait Assistive Device: FWW Does the Pt use WC or Scooter?: No Stairs (FIM): 5 # of Steps: 4 1 Step (curb) (QC): 6 4 Steps (QC): 6 12 Steps (QC): 9 Picking up an Object (QC): 9 PT Plan Treatment/Plan Treatment Plan: Continue Plan of Care Treatment Plan: Bed Mobility, Education, Functional Activity Juan F, Functional Strength, Group Therapy, Gait, Safety, Therapeutic Exercise, Transfers Treatment Duration: Dec 29, 2018 Frequency: At least 5 of 7 days/Wk (IRF) Estimated Hrs Per Day: 1.5 hours per day Patient and/or Family Agrees t: Yes Safety Risks/Education Patient Education: Gait Training, Transfer Techniques, Correct Positioning, Disease Process, Safety Issues Teaching Recipient: Patient Teaching Methods: Demonstration, Discussion Response to Teaching: Verbalize Understanding, Return Demonstration, Reinforcement Needed self stretch for piriformis and HS Time/GCodes Time In: 900 Time Out: 0950 Total Billed Treatment Time: 60 Total Billed Treatment 1,GT15m,EX10m,FA25 ALEXANDRE MICHAELS BUSINESS IMPROVEMENT MANAGER Dec 21, 2018 10:39
[2018-12-21] MEDS: ENOXAPARIN 40 MG/0.4 ML (LOVENOX) SYR SC SCH ×2 (12:04→21:31)
--- NOTE | 2018-12-21 12:25 | Speech Therapy Daily Note ---
Speech Daily Progress Note Subjective Date Seen by Provider: Dec 21, 2018 Time Seen by Provider: 00:30 The patient was sitting in her wheelchair due to just finishing OT. Objective The patient utilizes compensatory strategies with all oral intake at >90%. Assessment Assessment Current Status: Good Progress Treatment Plan Continue Plan of Care Communication Comprehension: 7 Expression: 7 Social Cognition Social Interaction: 7 Problem Solvin Memory: 6 Speech Short Term Goals Short Term Goals Short Term Goals 1) The patient will tolerate least restrictive diet level without s/s of aspiration at 90% or greater. 2) The patient will utilize compensatory strategies as trained for safe oral intake at 90% or greater given minimal verbal cues. Speech Glassware Maker Demonstrator Goals Long-Term Goals The patient will maintain adequate nutrition/hydration via safe effective swallow function. Speech-Plan Patient/Family Goals Patient/Family Goals: The patient is returning home this week upon discharge. Treatment Plan Speech Therapy Treatment Plan: Continue Plan of Care The patient has made good progress with meeting ST goals for safety of oral intake. Treatment Duration: Dec 23, 2018 Frequency: 5 times per week Estimated Hrs Per Day: .25 hour per day Rehab Potential: Good Barriers to Learning: Patient has had a complex medical stay, however she has significantly improved. Pt/Family Agrees to Plan: Yes Safety Risks/Education Teaching Recipient: Patient Teaching Methods: Demonstration, Discussion Response to Teaching: Verbalize Understanding, Return Demonstration Education Topics Provided: Continued safety with oral intake upon her return home. Time Speech Therapy Time In: 08:30 Speech Therapy Time Out: 09:00 Total Billed Time: 30 Billed Treatment Time 1, ANTHONY Walton Dec 21, 2018 12:25
--- NOTE | 2018-12-21 14:09 | Physical Therapy Daily Note ---
PT Daily Note-Current Subjective Pt. in bed with shoes on and states her hip and sciatica and left foot have felt so much better since she put them on she hates to take them off. This CHART COLLECTOR explaining it would be better for her skin to have them off in bed but always on when on her feet. Pt. agrees to try new positioning for sleep that might alleviate left his pain. Pain Location: No Pain Reported Mental Status Patient Orientation: Normal For Age Attachments: Oxygen (3L extended O2 tubing) Transfers Therapy Code Descriptions/Definitions Functional [place] Measure: 0=Not Assessed/NA 4=Minimal Assistance 1=Total Assistance 5=Supervision or Setup 2=Maximal Assistance 6=Modified [place] 3=Moderate Assistance 7=Complete [place] Therapy Quality Codes: 6 Independent with activity with or without an assistive device 5 Patient requires set up or clean up by helper. Patient completes activity by themselves 4 Supervision or touching assist (CGA). [place] provide cues , steadying assist 3 The helper provides less than half the effort to complete the activity 2 The helper provides more than half the effort to complete the activity 1 Dependent. The helper does all the effort to complete an activity 7 Patient refused to complete or attempt activity 9 The patient did not perform the activity before the current illness or injury 88 Not attempted due to Medical conditions or safety concerns Transfers (B, C, W/C) (FIM): 4 Scootin Rollin Supine to/from Sit: 4 Sit to/from Stand: 6 pt. with bed flat required min assist ant shoulders to come from flat bed using rails, pt feels this would be easier at her home where her bed is firmer. Gait Training Does the Patient Walk?: Yes Gait (FIM): 2 Distance (FIM): 9=182-59 ft (50x2) Gait Level of Assist: 5 Gait Persons Needed: 1 Gait Assistive Device: FWW pt demonstrates ambulation in her room using extended O2 tubing to go to and from bathroom managing all with SBA. Pt. still states she has no pain in her left hip Treatments instructed in positioning for sleep and to alleviate left hip and foot ankle pain.pt. on right side with LLE elevated on 2 pillows in [place] type position. pt. states this really feels good and hopes to stay in this position with CPAP insitu and have a nap Assessment Current Status: Good Progress less pain after Rx , increased functional mob PT Short Term Goals Short Term Goals Time Frame: Dec 15, 2018 Transfers (B,C,W/C) (FIM): 4 Gait (FIM): 4 Distance (FIM): 3=150 ft Gait Assistive Device: FWW Wheelchair Distance: 150'x2 PT [place] Sewer Goals Nursing Home Goals PT [place] Sewer Goals Time Frame: Dec 29, 2018 Transfers (B,C,W/C) (FIM): 6 Sit to Lying (QC): 6 Lying-Sitting on Side/Bed(QC): 6 Sit to Stand (QC): 6 Rollin Roll Left to Right (QC): 6 Chair/Lct-er-Jtyxa Xfer(QC): 6 Car Transfer (QC): 6 Does the Patient Walk: Yes Gait (FIM): 6 Gait distance (FIM): 3=150 ft Walk 10 feet (QC): 6 Walk 10ft-Uneven Surface(QC): 6 Walk 50ft with 2 Turns (QC): 6 Walk 150 ft (QC): 6 Gait Assistive Device: FWW Does the Pt use WC or Scooter?: No Stairs (FIM): 5 # of Steps: 4 1 Step (curb) (QC): 6 4 Steps (QC): 6 12 Steps (QC): 9 Picking up an Object (QC): 9 PT Plan Treatment/Plan Treatment Plan: Continue Plan of Care Treatment Plan: Bed Mobility, Education, Functional Activity Juan F, Functional Strength, Group Therapy, Gait, Safety, Therapeutic Exercise, Transfers Treatment Duration: Dec 29, 2018 Frequency: At least 5 of 7 days/Wk (IRF) Estimated Hrs Per Day: 1.5 hours per day Patient and/or Family Agrees t: Yes Safety Risks/Education Patient Education: Gait Training, Transfer Techniques, Correct Positioning, Disease Process, Safety Issues Teaching Recipient: Patient Teaching Methods: Demonstration, Discussion Response to Teaching: Verbalize Understanding, Return Demonstration, Reinforcement Needed Time/GCodes Time In: 1300 Time Out: 1330 Total Billed Treatment Time: 30 Total Billed Treatment 1,FA20m,GT10m ALEXANDRE MICHAELS PTA Dec 21, 2018 14:09
--- NOTE | 2018-12-21 15:50 | Progress Note ---
Subjective Date Seen by a Provider: Dec 21, 2018 Time Seen by a Provider: 15:45 Subjective/Events-last exam doing well. minimal wound output. no fever/chills. strength and ambulatory status slowly improving. Objective Exam Vital Signs Date Time Temp Pulse Resp B/P (MAP) Pulse Ox O2 Delivery O2 Flow Rate FiO2 12/21/18 10:09 Nasal Cannula 3.00 12/21/18 08:00 High Flow N/C 2.00 12/21/18 05:25 36.6 81 18 139/83 96 NIV CPAP 2.00 12/20/18 21:27 High Flow N/C 2.00 12/20/18 21:20 36.4 81 18 106/69 97 Nasal Cannula 2.00 12/20/18 20:48 98 Nasal Cannula 3.00 12/20/18 18:00 37.6 78 18 127/72 96 Nasal Cannula 2.00 I & O 12/21/18 07:00 Intake Total 1000 ml Balance 1000 ml Capillary Refill : Less Than 3 Seconds General Appearance: No Apparent Distress HEENT: PERRL/EOMI Neck: Full Range of Motion Respiratory: Chest Non Tender, Decreased Breath Sounds Cardiovascular: Regular Rate, Rhythm Gastrointestinal: normal bowel sounds, non tender, soft Extremity: Normal Capillary Refill Neurologic/Psychiatric: Alert, Oriented x3 Skin: Normal Color Lymphatic: No Adenopathy Results Lab Laboratory Tests 12/20/18 17:01: Glucometer 126H 12/20/18 21:22: Glucometer 153H 12/21/18 05:49: Glucometer 125H 12/21/18 10:51: Glucometer 140H Assessment/Plan Assessment/Plan Assess & Plan/Chief Complaint s/p recurrent inc hernia repair with exacerbation COPD, exacerbation CHF, hypergylemia and developement enterocutaneous fistula. cont current care. wet to dry BID to allow for granulation tissue and eventual closure. will hold off abx for now. if superficial/subcutaneous infection develops will start PO abx. continue plan for IRU for eventual independence. Clinical Quality Measures DVT/VTE Risk/Contraindication: Risk Factor Score Per Nursin RFS Level Per Nursing on Admit: 4+=Very High WENDI ELIZABETH MD Dec 21, 2018 15:50
[2018-12-21 17:12] VITALS: BP 115/67
[2018-12-21] MEDS: MELATONIN 3 MG TABLET PO PRN (21:23)
[2018-12-22] MEDS: ACETAMINOPHEN 325 MG TABLET PO PRN (01:43)
[2018-12-22] MEDS: inSUlin ASPART (NovoLOG) 1 UNIT/0.01 ML (CHARGE PER UNIT) SC SCH ×4 (05:48→22:05)
[2018-12-22] MEDS: CATHETER FLUSH 10 ML SYR IV SCH ×3 (06:15→22:07)
[2018-12-22 06:30] VITALS: BP 113/74
--- NOTE | 2018-12-22 06:52 | Progress Note ---
[facility] 12/22/18 0652: Subjective Date Seen by a Provider: Dec 22, 2018 Time Seen by a Provider: 06:48 Subjective/Events-last exam vitals stable this AM Glucose of 142 Depression improved Normal BM Left leg continues to hurt seen by cardiology and Gen surg yesterday Started back on Lovenox yesterday plan for d/c on Wednesday Reviewed labs, provider notes, and meds Review of Systems Pulmonary: No Dyspnea, No Cough, No Pleuritic Chest Pain Cardiovascular: No: Chest Pain Gastrointestinal: No: Nausea, Vomiting, Diarrhea, Constipation Genitourinary: No Dysuria Objective Exam Last Set of Vital Signs Vital Signs Date Time Temp Pulse Resp B/P (MAP) Pulse Ox O2 Delivery O2 Flow Rate FiO2 12/22/18 06:30 36.0 78 18 113/74 94 NIV CPAP 2.00 Capillary Refill : Less Than 3 Seconds I&O Intake and Output 12/22/18 00:00 Intake Total 1430 ml Balance 1430 ml Intake Oral 1430 ml # Voids 7 # Bowel Movements 6 General: Alert, Oriented X3, Cooperative, No Acute Distress HEENT: Atraumatic Lungs: Clear to Auscultation, Normal Air Movement Heart: Regular Rate, Normal S1, Normal S2, No Murmurs Results Lab Laboratory Tests 12/21/18 10:51: Glucometer 140H Assessment/Plan Assessment/Plan Assess & Plan/Chief Complaint Assessment: 1. tolerating wound vac 2. Left leg radiculopathy 3. Affect improved Plan 1. IRF protocol 2.maintain Wet to dry wound care BID Per Dr. Olvera 3.Monitor mental state/mood 4. Left leg radiculopathy manage conservatively 5. Plan for D/C Wednesday Clinical Quality Measures DVT/VTE Risk/Contraindication: Risk Factor Score Per Nursin RFS Level Per Nursing on Admit: 4+=Very High DANG LICEA DO 12/23/18 1057: Supervisory-Addendum Brief Verification & Attestation Participated in pt care: history, MDM, physical Personally performed: exam, history, MDM, supervision of care Care discussed with: Medical Student Procedures: n/a Results interpretation: Verified all documentation Verification and Attestation of Medical Student E/M Service A medical student performed and documented this service in my presence. I reviewed and verified all information documented by the medical student and made modifications to such information, when appropriate. I personally performed the physical exam and medical decision making. Dang Licea, Dec 23, 2018,10:57 [facility] Dec 22, 2018 06:52 DANG LICEA DO Dec 23, 2018 10:57
[2018-12-22] MEDS: RT-ADVAIR HFA 115/21 MCG PER PUFF IH SCH ×2 (07:56→18:49)
--- NOTE | 2018-12-22 07:58 | Occupational Ther Daily Note ---
OT Current Status-Daily Note Subjective Pt asleep in bed upon OT arrival. Pt agrees to therapy. Mental Status/Objective Patient Orientation: Person, Place, Time, Situation Therapy Code Descriptions/Definitions Functional [place] Measure: 0=Not Assessed/NA 4=Minimal Assistance 1=Total Assistance 5=Supervision or Setup 2=Maximal Assistance 6=Modified [place] 3=Moderate Assistance 7=Complete [place] ADL-Treatment Pt propelled self to bathroom to sponge bathe at sink sitting in w/c. Pt washed face and underarms. Therapy Code Descriptions/Definitions Functional [place] Measure: 0=Not Assessed/NA 4=Minimal Assistance 1=Total Assistance 5=Supervision or Setup 2=Maximal Assistance 6=Modified [place] 3=Moderate Assistance 7=Complete [place] Therapy Quality Codes: 6 Independent with activity with or without an assistive device 5 Patient requires set up or clean up by helper. Patient completes activity by themselves 4 Supervision or touching assist (CGA). [place] provide cues , steadying assist 3 The helper provides less than half the effort to complete the activity 2 The helper provides more than half the effort to complete the activity 1 Dependent. The helper does all the effort to complete an activity 7 Patient refused to complete or attempt activity 9 The patient did not perform the activity before the current illness or injury 88 Not attempted due to Medical conditions or safety concerns Eating (FIM): 7 (Pt able to open containers and lids by self. Pt uses utensils appropriately. ) Eating (QC): 6 Grooming (FIM): 6 (Pt able to brush teeth and hair sitting at sink in w/c. ) Oral Hygiene (QC): 6 Upper Body (FIM): 6 (Pt propelled self in w/c to obtain clothing from closet. Pt able to don/doff shirt by self sitting in w/c. ) Upper Body Dressing (QC): 6 Lower Body Dressing (FIM): 6 (Pt propelled self using w/c to obtain clothing from closet. Pt able to don/doff brief and pants above knees. Pt requires w/c arm rests to push to stand. Pt able to hike pants and briefs above waist by self. Pt able to don socks and shoes by self.) Lower Body Dressing (QC): 6 On/Off Footwear (QC): 6 Toileting (FIM): 6 (Pt able to manage clothing properly before and after voiding and BM. Pt requires grab bar to cleanse self.) Toileting Hygiene (QC): 6 Transfers (B, C, W/C) (FIM): 6 (Pt requires bed rails from supine to sit. Pt able to ambulate 1 ft to w/c. ) Toilet/Commode Transfer (FIM): 6 (Pt requires w/c and grab bar. ) Toilet Transfer (QC): 6 Other Treatment Pt participated in bed mobility exercise without raising the bed to simulate the one pt uses at home to increase daily functional activity tasks. Pt transferred self back to w/c to eat breakfast. Pts call light and phone in reach. OT Short Term Goals Short Term Goals Time Frame: Dec 08, 2018 Eating(FIM): 5 Grooming(FIM): 5 Bathing(FIM): 4 Upper Body Dressing(FIM): 4 Lower Body Dressing(FIM): 3 Toileting(FIM): 3 Transfers (B,C,W/C) (FIM): 4 Toilet/Commode Transfer(FIM): 4 Shower Transfer(FIM): 4 Additional Short Term Goals: 1-Demonstrate ADL Tasks, 2-Verbalize Understanding, 3-ImproveStrength/Juan F 1=Demonstrate adherence to instructed precautions during ADL tasks. 2=Patient will verbalize/demonstrate understanding of assistive devices/modifications for ADL. 3=Patient will improve strength/tolerance for activity to enable patient to perform ADL's. OT Mcc Goals Online Producer Goals Time Frame: Dec 22, 2018 Eating (FIM): 6 Eating (QC): 6 Groomin Oral Hygiene (QC): 6 Bathing(FIM): 5 Shower/Bathe Self (QC): 4 Upper Body Dressing(FIM): 5 Upper Body Dressing (QC): 4 Lower Body Dressing(FIM): 5 Lower Body Dressing (QC): 4 On/Off Footwear (QC): 4 Toileting(FIM): 6 Toileting Hygiene (QC): 6 Transfers (B,C,W/C) (FIM): 6 Toilet/Commode Transfer(FIM): 6 Toilet/Commode Transfer (QC): 6 Shower Transfer(FIM): 5 Additional Goals: 1-Demonstrate ADL Tasks, 2-Verbalize Understanding, 3- ImproveStrength/Juan F 1=Demonstrate adherence to instructed precautions during ADL tasks. 2=Patient will verbalize/demonstrate understanding of assistive devices/modifications for ADL. 3=Patient will improve strength/tolerance for activity to enable patient to perform ADL's. OT Education/Plan Discharge Recommendations Plan/Recommendations: Continue POC Treatment Plan/Plan of Care Patient would benefit from OT for education, treatment and training to promote independence in ADL's, mobility, safety and/or upper extremity function for ADL's. Plan of Care: ADL Retraining, Functional Mobility, Group Exercise/Act as Ind, UE Funct Exercise/Act Treatment Duration: Dec 22, 2018 Frequency: At least 5 of 7 days/Wk (IRF) Estimated Hrs Per Day: 1.5 hours per day Agreement: Yes Rehab Potential: Good Time/GCodes Start Time: 06:55 Stop Time: 07:55 Total Time Billed (hr/min): 60 Billed Treatment Time 1 visit- ADL 3 (45 min) FA 1 (15 min) CEDRIC DURANT Dec 22, 2018 07:58
[2018-12-22] MEDS: lisINopril 20 MG (PRINIVIL) TABLET PO SCH (08:28)
[2018-12-22] MEDS: FAMOTIDINE 20 MG (PEPCID) TABLET PO SCH ×2 (08:28→22:05)
[2018-12-22] MEDS: DULoxetine 30 MG (CYMBALTA) CAP PO SCH (08:28)
[2018-12-22] MEDS: FUROSEMIDE 20 MG (LASIX) TAB PO SCH (08:28)
[2018-12-22] MEDS: LINAGLIPTIN (TRADJENTA) 5 MG TABLET PO SCH (08:28)
[2018-12-22] MEDS: meTOprolol TARTRATE 25 MG (LOPRESSOR) TABLET PO SCH ×3 (08:28→22:06)
[2018-12-22] MEDS: amLODIPine 10 MG (NORVASC) TAB PO SCH (08:28)
[2018-12-22] MEDS: FLUoxetine HCL 20 MG (PROzac) CAP PO SCH (08:28)
[2018-12-22] MEDS: OMEGA 3 (FISH OIL) 1000 MG CAP PO SCH (08:29)
[2018-12-22] MEDS: KCL 10 MEQ TAB (MICRO K) PO SCH ×2 (08:29→22:06)
[2018-12-22] MEDS: MAGNESIUM OXIDE (MAG-OX)400 MG TAB PO SCH (08:29)
[2018-12-22] MEDS: VITAMIN D3 5,000 UNITS (CHOLECALCIFEROL ) CAPSULE PO SCH (08:29)
[2018-12-22] MEDS: NICOTINE PATCH REMOVAL TP SCH (08:30)
[2018-12-22] MEDS: NICOTINE 21 MG (NICODERM) PATCH TD SCH (08:30)
[2018-12-22] MEDS ORDERED: INSU100I29 SQ (08:37)
[2018-12-22] MEDS ORDERED: DICL100G18 TOP (08:37)
[2018-12-22] MEDS ORDERED: FLUO20CA25 PO (08:37)
[2018-12-22] MEDS ORDERED: POTA10TA6 PO (08:37)
[2018-12-22] MEDS ORDERED: NICO-588 TD (08:37)
[2018-12-22] MEDS ORDERED: METO-333 PO (08:37)
[2018-12-22] MEDS ORDERED: FAMO20TA5 PO (08:37)
[2018-12-22] MEDS ORDERED: PEN-53 MC (08:37)
[2018-12-22] MEDS ORDERED: TRAM50TA2 PO (08:37)
[2018-12-22] MEDS ORDERED: FURO20TA4 PO (08:37)
[2018-12-22] MEDS: SENNA W/DOCUSATE (SENOKOT S) TABLET PO SCH ×2 (09:00→22:07)
[2018-12-22] MEDS: DOCUSATE SODIUM 100 MG (COLACE) CAP PO SCH ×2 (09:00→22:06)
--- NOTE | 2018-12-22 09:17 | Cardiology Progress Note ---
Subjective Date Seen by Provider: Dec 22, 2018 Time Seen by Provider: 08:00 Subjective/Events-last exam Patient sitting up in chair, eating breakfast. No new complaints. Denies any chest pain or dypsnea. Foot pain improved this morning. Objective-Cardiology Exam Last Set of Vital Signs Vital Signs 12/22/18 12/22/18 06:30 08:04 Temp 36.0 Pulse 78 Resp 18 B/P (MAP) 113/74 Pulse Ox 95 O2 Delivery Nasal Cannula O2 Flow Rate 3.00 Capillary Refill : Less Than 3 Seconds I&O Intake and Output 12/22/18 00:00 Intake Total 1430 ml Balance 1430 ml Intake Oral 1430 ml # Voids 7 # Bowel Movements 6 General: Alert, Oriented X3, Cooperative, No Acute Distress HEENT: Atraumatic Neck: Supple Lungs: Clear to Auscultation, Normal Air Movement Heart: Regular Rate, Normal S1, Normal S2, No Murmurs Abdomen: Normal Bowel Sounds, Soft, No Tenderness Extremities: No Clubbing, No Cyanosis Skin: No Rashes Neuro: Normal Speech, Cranial Nerves 3-12 NL Psych/Mental Status: Mental Status NL A/P-Cardiology Admission Diagnosis Respiratory failure COPD HTN HLP Assessment/Plan Status post respiratory failure, resolved, using C Pap on and off, Continue to monitor Enterocutaneous fistula postoperatively, 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 Olvera Acute non-ST elevation myocardial infarction, poor R-wave progression in the anterior leads, probably type II myocardial infarctions due to respiratory failure, underlying coronary artery disease cannot be entirely excluded. Echocardiogram showed normal LV function. Continue with conservative management at this time, continue to monitor. No acute EKG changes suggestive of active ischemia, conservative management at this time. Consider stress test as outpatient. Hypertension, controlled, monitor blood pressure Hyperlipidemia, monitor as outpatient. COPD, oxygen dependent, receiving therapy. Morbid obesity Diabetes mellitus, followed and managed by primary care physician History of tobaccoism Generalized debility/weakness. Continue to monitor. Clinical Quality Measures DVT/VTE Risk/Contraindication: Risk Factor Score Per Nursin RFS Level Per Nursing on Admit: 4+=Very High Supervisory-Addendum Brief Supervisory Addendum Participated in pt care: history, MDM, physical Personally performed: exam, history, MDM Care discussed with: PA Notes: Patient was seen and evaluated, sitting up and eating breakfast. No new complaint. Continue to monitor blood pressure, continue current medication. No changes are recommended ESAU WILCOX Dec 22, 2018 09:17 AUSTEN MARTÍNEZ MD Dec 22, 2018 09:47
--- NOTE | 2018-12-22 09:23 | Physical Therapy Daily Note ---
PT Daily Note-Current Subjective Pt agreeable to PT session this am. States yesterday's therapy helped with decreasing pain in foot and that she was actually able to get some good rest after that since normally pain keeps her awake at night. Pain Numeric Pain Scale: 7 Comment: L leg, knee into foot Appearance Upon arrival, pt in bed with HOB elevated and nursing just finished dressing change. Pt requesting and was assisted to bathroom. At end of session, pt requesting to remain sitting up in w/c, call light, phone, bedside table within reach Mental Status Patient Orientation: Person, Place, Time, Eyes Open, Situation, Normal For Age Attachments: [place] Transfers Therapy Code Descriptions/Definitions Functional [place] Measure: 0=Not Assessed/NA 4=Minimal Assistance 1=Total Assistance 5=Supervision or Setup 2=Maximal Assistance 6=Modified [place] 3=Moderate Assistance 7=Complete [place] Therapy Quality Codes: 6 Independent with activity with or without an assistive device 5 Patient requires set up or clean up by helper. Patient completes activity by themselves 4 Supervision or touching assist (CGA). [place] provide cues , steadying assist 3 The helper provides less than half the effort to complete the activity 2 The helper provides more than half the effort to complete the activity 1 Dependent. The helper does all the effort to complete an activity 7 Patient refused to complete or attempt activity 9 The patient did not perform the activity before the current illness or injury 88 Not attempted due to Medical conditions or safety concerns Transfers (B, C, W/C) (FIM): 5 Supine to/from Sit: 5 (encouragement and skilled instruction for technique) Sit to/from Stand: 5 (good technique) Gait Training Does the Patient Walk?: Yes Gait (FIM): 5 Distance (FIM): 3=150 ft Distance: 230, 110 Gait Level of Assist: 5 Gait Persons Needed: 1 Gait Assistive Device: FWW (barriatric) several rest breaks required during both gait distances, SOA, lateral sway, decreased step length and height, fatigue Exercises Seated Therapy Exercises: Ankle pumps (PF, DF, INV, EV, CW/CCW circles, calf stretch, pf stretch), Sit to stand Seated Reps: 10 (deep tissue flexibility through LLLE knee to toes to decrease pain and increase mobility) Treatments transfers, safety, toileting, gait, education, strength, ROM, balance, activity tolerance, functional mobility, pain management Assessment Current Status: Good Progress PT Short Term Goals Short Term Goals Time Frame: Dec 15, 2018 Transfers (B,C,W/C) (FIM): 4 Gait (FIM): 4 Distance (FIM): 3=150 ft Gait Assistive Device: FWW Wheelchair Distance: 150'x2 PT Document Review Attorney Goals Document Review Attorney Goals PT Mcc Goals Time Frame: Dec 29, 2018 Transfers (B,C,W/C) (FIM): 6 Sit to Lying (QC): 6 Lying-Sitting on Side/Bed(QC): 6 Sit to Stand (QC): 6 Rollin Roll Left to Right (QC): 6 Chair/Qoe-oa-Bqrwh Xfer(QC): 6 Car Transfer (QC): 6 Does the Patient Walk: Yes Gait (FIM): 6 Gait distance (FIM): 3=150 ft Walk 10 feet (QC): 6 Walk 10ft-Uneven Surface(QC): 6 Walk 50ft with 2 Turns (QC): 6 Walk 150 ft (QC): 6 Gait Assistive Device: FWW Does the Pt use WC or Scooter?: No Stairs (FIM): 5 # of Steps: 4 1 Step (curb) (QC): 6 4 Steps (QC): 6 12 Steps (QC): 9 Picking up an Object (QC): 9 PT Plan Treatment/Plan Treatment Plan: Continue Plan of Care Treatment Plan: Bed Mobility, Education, Functional Activity Juan F, Functional Strength, Group Therapy, Gait, Safety, Therapeutic Exercise, Transfers Treatment Duration: Dec 29, 2018 Frequency: At least 5 of 7 days/Wk (IRF) Estimated Hrs Per Day: 1.5 hours per day Patient and/or Family Agrees t: Yes Safety Risks/Education Patient Education: Gait Training, Transfer Techniques, Correct Positioning, Safety Issues Teaching Recipient: Patient Teaching Methods: Demonstration, Discussion Response to Teaching: Verbalize Understanding, Return Demonstration Discharge Recommendations Equpiment Recommendations-D/C: Other, Please Explain (Pt would benefit from use of w/c upon discharge from facility for energy conservation 2* frequent rest breaks required with SOA and fatigue during short distances of gait with FWW ) Time/GCodes Time In: 915 Time Out: 1000 Total Billed Treatment Time: 45 Total Billed Treatment 1 visit, GT x20min, FA x10min, EX x20min GLADIS SINCLAIR PTA Dec 22, 2018 09:23
--- NOTE | 2018-12-22 09:32 | PM&R Progress Note ---
Subjective HPI/CC On Admission Date Seen by Provider: Dec 22, 2018 Time Seen by Provider: 09:00 Chief complaint: Disuse myopathy. HPI: This is a 63yoWF [facility] Pt known to me from last week hospital admission when she required intubation for acute on chronic respiratory failure with obesity-hypoventilation syndrome following hernia repair. She was able to be extubated without complication and continued to be on high flow oxygen and had suffered these issues following an uncomplicated ventral hernia surgery. Due to her morbid obesity and likely chronic CO2 retention she went into respiratory failure, had significant difficulties with multisystem organ dysfunction and was eventually able to move down to fourth floor but repeat CT scam obtained due to elevated white count per Dr. Olvera showed some sort of fistula. 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 She remained on TPN, clear liquid diet only and IV antibiotics to help heal that area. At this current time, the Pt is denying any pain and is getting around better since she was living independently and ambulating at home. The goal is to return to near prior level of function and be able to return back to independent level of living. Subjective/Events-last exam Discharge is planned on Wednesday. Wet to dry dressing, and are working very well for her. Will prescribe Levemir at discharge so nursing will provide education for that. PT did work with her piriformis and that seems to really have helped the left leg. Reviewed all discharge meds and I finalized everything and sent medications to [facility] as requested. Check meds and labs Conferred with RN Reviewed therapy notes Overall improving status Review of Systems Musculoskeletal: leg pain Objective Exam Vital Signs Vital Signs Date Time Temp Pulse Resp B/P (MAP) Pulse Ox O2 Delivery O2 Flow Rate FiO2 12/23/18 09:00 High Flow N/C 2.00 12/23/18 08:07 85 116/68 12/23/18 07:07 96 12/23/18 05:58 36.4 20 Capillary Refill : Less Than 3 Seconds General Appearance: No Apparent Distress, WD/WN, Chronically ill, Obese HEENT: PERRL/EOMI, Normal ENT Inspection, Pharynx Normal, Moist Mucous Membranes Neck: Full Range of Motion, Non Tender, Supple Respiratory: Chest Non Tender, Lungs Clear, Normal Breath Sounds, No Accessory Muscle Use, No Respiratory Distress Cardiovascular: Regular Rate, Rhythm, No Edema, No Gallop, No JVD, No Murmur, Normal Peripheral Pulses Gastrointestinal: Normal Bowel Sounds, No Organomegaly, No Pulsatile Mass, Soft, Tenderness, Other Back: Normal Inspection, No CVA Tenderness, No Vertebral Tenderness Extremity: Normal Capillary Refill, Normal Range of Motion, No Calf Tenderness, No Pedal Edema, Other Neurologic/Psychiatric: Alert, Oriented x3, No Motor/Sensory Deficits, Normal Mood/Affect, paid search specialist II-XII Norm as Tested, Motor Weakness Skin: Normal Color, Warm/Dry Lymphatic: No Adenopathy Results/Procedures Lab Patient resulted labs reviewed. FIM Transfers Therapy Code Descriptions/Definitions Functional C[place] Measure: 0=Not Assessed/NA 4=Minimal Assistance 1=Total Assistance 5=Supervision or Setup 2=Maximal Assistance 6=Modified Cuming 3=Moderate Assistance 7=Complete Cuming Therapy Quality Codes: 6 Independent with activity with or without an assistive device 5 Patient requires set up or clean up by helper. Patient completes activity by themselves 4 Supervision or touching assist (CGA). [place] provide cues , steadying assist 3 The helper provides less than half the effort to complete the activity 2 The helper provides more than half the effort to complete the activity 1 Dependent. The helper does all the effort to complete an activity 7 Patient refused to complete or attempt activity 9 The patient did not perform the activity before the current illness or injury 88 Not attempted due to Medical conditions or safety concerns Transfers (B, C, W/C) (FIM): 5 Scootin Rollin Roll Left to Right (QC): 6 Supine to/from Sit: 5 (encouragement and skilled instruction for technique) Sit to/from Stand: 5 (good technique) Sit to Lying (QC): 6 Sit to Stand (QC): 5 Chair/Vha-oy-Veucl Xfer(QC): 6 Bed to/from Chair: 6 Car Transfer (QC): 88 (Unsafe to attempt car transfer at this time. ) Gait Training Does the Patient Walk?: Yes Gait (FIM): 2 Distance (FIM): 9=302-57 ft (50x2) Distance: 100'x2 Walk 10 feet (QC): 5 Walk 50 ft with 2 Turns(QC): 6 Walk 150 ft (QC): 88 Walking 10ft/uneven surface-QC: 88 Gait Level of Assist: 5 Gait Persons Needed: 1 Gait Assistive Device: FWW Wheelchair Training Does the Pt Use a Wheelchair?: Yes Wheelchair (FIM): 5 Wheelchair Distance: 3=150 ft Distance: 150'x2 Wheelchair Level of Assist: 5 Wheel 50 ft with 2 turns (QC): 5 Wheel 150 ft (QC): 5 Type of Wheelchair: Manual Stair Training Stair Training: Handrails/: uses walker Stairs (FIM): 1 #of Steps: 1 1 Step (curb) (QC): 5 4 Steps (QC): 88 12 Steps (QC): 88 Stairs: Pattern: Step to Level of Assist: 5 Balance Picking up an Object (QC): 88 Mental Status/Objective Comprehension: 7 Expression: 7 Social Interaction: 7 Problem Solvin Memory: 6 ADL-Treatment Feedin (Pt able to open containers and lids by self. Pt uses utensils appropriately. ) Eating (QC): 6 Groomin (Pt able to brush teeth and hair sitting at sink in w/c. ) Oral Hygiene (QC): 6 Bathin (Pt required grab bar, shower bench, and hand held shower head. Pt required assist to wash buttocks, under stomach, and martha area due to decreased activity tolerance. ) Bathing Location: L Arm, R Arm, L Upper Leg, R Upper Leg, L Lower Leg (including foot), R Lower Leg (including foot), Chest Shower/Bathe Self (QC): 3 Upper Extremity Dressin (Pt propelled self in w/c to obtain clothing from closet. Pt able to don/doff shirt by self sitting in w/c. ) Upper Body Dressing (QC): 6 Lower Extremity Dressin (Pt propelled self using w/c to obtain clothing from closet. Pt able to don/doff brief and pants above knees. Pt requires w/c arm rests to push to stand. Pt able to hike pants and briefs above waist by self. ) Lower Body Dressing (QC): 4 On/Off Footwear (QC): 6 (Wears slip on shoes) Toiletin (Supervision for manipulating clothing in standing using grabbars and cleanses self sitting on toilet.) Toileting Hygiene (QC): 5 Toilet/Commode Transfer: 5 (Pt requires grab bar and w/c arm rest. SBA while pt sits down due to safety concerns. ) Toilet Transfer (QC): 4 Shower: 5 Assessment/Plan Assessment and Plan Assess & Plan/Chief Complaint Plan: IRF protocol OOB in chair most of day every day Advanced diet doing well at Dysphagia 3 Right flank hematoma now resolved Lovenox maintained for DVT PPx O2 maintained and weaning well now at 2L/min which she is on that at home PLOF was ambulating at home Ostomy care per surgical service and now wound vac DC and wet to dry dressings intact Left leg radiculopathy evaluated and will managed conservatively but has spine disease prior to this hospital stay Monitor labs prn Pet pass was successful and hopefully will be able to see the dog later Psych evaluation for depression is appreciated and I changed meds to her recs. Depression improved Left leg radiculopathy managed conservatively Replace potassium PO BID Check labs prn Abx completed [facility] appt 12/26/[address] Alessandro PLAZA Wednesday (1) Myopathy (2) COPD (chronic obstructive pulmonary disease) Status: Chronic Qualifiers: COPD type: unspecified COPD Qualified Codes: J44.9 - Chronic obstructive pulmonary disease, unspecified (3) Hypokalemia Status: Acute (4) Diabetes mellitus, type 2 Status: Chronic Qualifiers: Diabetes mellitus custodial insulin use: with termination clerk use Diabetes mellitus complication status: with other specified complication Qualified Codes: E11.69 - Type 2 diabetes mellitus with other specified complication; Z79.4 - assisted (current) use of insulin (5) Ventilator dependence Status: Resolved Resolution Date/Time: 11/25/18 @ 20:44 (6) Enterocutaneous fistula Status: Acute (7) Obesity hypoventilation syndrome Status: Chronic (8) On total parenteral nutrition (TPN) Status: Acute (9) BRAYAN treated with BiPAP Status: Chronic (10) Smoker Status: Chronic ALEIDA LICEA DO Dec 22, 2018 09:32
[2018-12-22] MEDS: ENOXAPARIN 40 MG/0.4 ML (LOVENOX) SYR SC SCH ×2 (10:39→22:05)
--- NOTE | 2018-12-22 10:39 | NUR ---
ELECTRICAL PROSPECTING ENGINEER met with patient to review team conference summary. As patient is standby assist with all ambulation and ADLs and continues to make progress, team is confident that patient will be appropriate to return home on 914 with recommendations of home health for RN, PT and OT. Patient reports [id number] resides [place]-door and can assist with twice a day wound packing. Patient is agreeable to this and requests to utilize [facility]; however, ELECTRICAL PROSPECTING ENGINEER received notification from [facility] that [facility]. ELECTRICAL PROSPECTING ENGINEER inquired about alternative provider. Due to the need for energy conservation, team has recommended patient have a wheelchair or home use. ELECTRICAL PROSPECTING ENGINEER sent information to [facility] [place] [place] for delivery of equipment tomorrow.
--- NOTE | 2018-12-22 13:33 | Speech Therapy Daily Note ---
Speech Daily Progress Note Subjective Date Seen by Provider: Dec 22, 2018 Time Seen by Provider: 00:30 The patient was sitting up in her bed eating a regular lunch without difficulty. Objective The patient utilizes compensatory strategies as trained for all oral intake as her diet level has been upgraded with >90% without cues. Assessment Assessment Current Status: Good Progress Treatment Plan Continue Plan of Care Communication Comprehension: 7 Expression: 7 Social Cognition Social Interaction: 7 Problem Solvin Memory: 6 Speech Short Term Goals Short Term Goals Short Term Goals 1) The patient will tolerate least restrictive diet level without s/s of aspiration at 90% or greater. 2) The patient will utilize compensatory strategies as trained for safe oral intake at 90% or greater given minimal verbal cues. Speech Nursing Home Goals Nursing Home Goals The patient will maintain adequate nutrition/hydration via safe effective swallow function. Speech-Plan Patient/Family Goals Patient/Family Goals: The patient will be discharged to her home on Wednesday. Treatment Plan Speech Therapy Treatment Plan: Continue Plan of Care The patient has yin very good progress with safety of oral intake. Treatment Duration: Dec 24, 2018 Frequency: 5 times per week Estimated Hrs Per Day: .25 hour per day Rehab Potential: Good Barriers to Learning: Patient has had a complex medical stay, medical issues have been resolved and she is considered safe to return home. Pt/Family Agrees to Plan: Yes Safety Risks/Education Teaching Recipient: Patient Teaching Methods: Demonstration, Discussion Response to Teaching: Verbalize Understanding, Return Demonstration Education Topics Provided: Continued safety of oral intake on her return home. Time Speech Therapy Time In: 12:15 Speech Therapy Time Out: 12:45 Total Billed Time: 30 Billed Treatment Time 1, ANTHONY Walton Dec 22, 2018 13:33
--- NOTE | 2018-12-22 14:42 | Therapy Group Daily Note ---
Therapy Daily Group Note Patient Education Topic Exercises Exercises LE Seated Exercise, UE Exercise Session Ratio (pt:therapist): 4:1 Goal of Session: UE/LE Strengthing Goal Met for this Session: Yes Pt Benefit of Group: Contributions to Others, Increased Functional Strength, Improved Cognition, Recognition of Peers, Socialization Other/Notes Pt propelled w/c to OT/PT group. Group consisted of introduction (name, place living, memory of 12/21), socialization, pt led UE/LE seated exercises and education on the benefits of exercise. Pt introduced self then actively listened to peers. Pt participated in conversations and contributed to educational topics. Pt effectively led exercises and completed each exercise to the best of pt's ability. After therapy, pt lying in bed with call light/phone in reach. All needs met in room. Start Time: 13:00 Stop Time: 14:10 Total Billed Treatment Time: 70 Total Billed Treatment 1-GRP CEDRIC DURANT Dec 22, 2018 14:42
[2018-12-22 15:29] VITALS: BP 134/75
[2018-12-22] MEDS: MELATONIN 3 MG TABLET PO PRN (22:07)
[2018-12-23] MEDS: CATHETER FLUSH 10 ML SYR IV SCH ×3 (05:47→22:30)
[2018-12-23] MEDS: inSUlin ASPART (NovoLOG) 1 UNIT/0.01 ML (CHARGE PER UNIT) SC SCH ×4 (05:48→21:00)
[2018-12-23 05:58] VITALS: BP 136/82
[2018-12-23] MEDS: RT-ADVAIR HFA 115/21 MCG PER PUFF IH SCH ×2 (07:07→19:34)
[2018-12-23 08:07] VITALS: BP 116/68
[2018-12-23] MEDS: meTOprolol TARTRATE 25 MG (LOPRESSOR) TABLET PO SCH ×3 (08:08→21:15)
[2018-12-23] MEDS: OMEGA 3 (FISH OIL) 1000 MG CAP PO SCH (08:08)
[2018-12-23] MEDS: FAMOTIDINE 20 MG (PEPCID) TABLET PO SCH ×2 (08:08→21:14)
[2018-12-23] MEDS: amLODIPine 10 MG (NORVASC) TAB PO SCH (08:08)
[2018-12-23] MEDS: LINAGLIPTIN (TRADJENTA) 5 MG TABLET PO SCH (08:08)
[2018-12-23] MEDS: NICOTINE 21 MG (NICODERM) PATCH TD SCH (08:08)
[2018-12-23] MEDS: DULoxetine 30 MG (CYMBALTA) CAP PO SCH (08:08)
[2018-12-23] MEDS: KCL 10 MEQ TAB (MICRO K) PO SCH ×2 (08:08→21:14)
[2018-12-23] MEDS: MAGNESIUM OXIDE (MAG-OX)400 MG TAB PO SCH (08:09)
[2018-12-23] MEDS: VITAMIN D3 5,000 UNITS (CHOLECALCIFEROL ) CAPSULE PO SCH (08:09)
[2018-12-23] MEDS: lisINopril 20 MG (PRINIVIL) TABLET PO SCH (08:09)
[2018-12-23] MEDS: FUROSEMIDE 20 MG (LASIX) TAB PO SCH (08:09)
[2018-12-23] MEDS: FLUoxetine HCL 20 MG (PROzac) CAP PO SCH (08:09)
[2018-12-23] MEDS: NICOTINE PATCH REMOVAL TP SCH (08:09)
--- NOTE | 2018-12-23 08:09 | Occupational Ther Daily Note ---
OT Current Status-Daily Note Subjective Pt asleep in bed upon OT arrival. RT and Med Student in room. Pt stated that she slept good and was in a good mood. No c/o pain. Pt agrees to therapy. Mental Status/Objective Patient Orientation: Person, Place, Time, Situation Therapy Code Descriptions/Definitions Functional Stevens Measure: 0=Not Assessed/NA 4=Minimal Assistance 1=Total Assistance 5=Supervision or Setup 2=Maximal Assistance 6=Modified [place] 3=Moderate Assistance 7=Complete [place] Attachments: IV, Oxygen ADL-Treatment Therapy Code Descriptions/Definitions Functional [place] Measure: 0=Not Assessed/NA 4=Minimal Assistance 1=Total Assistance 5=Supervision or Setup 2=Maximal Assistance 6=Modified [place] 3=Moderate Assistance 7=Complete Stevens Therapy Quality Codes: 6 Independent with activity with or without an assistive device 5 Patient requires set up or clean up by helper. Patient completes activity by themselves 4 Supervision or touching assist (CGA). Protection provide cues , steadying assist 3 The helper provides less than half the effort to complete the activity 2 The helper provides more than half the effort to complete the activity 1 Dependent. The helper does all the effort to complete an activity 7 Patient refused to complete or attempt activity 9 The patient did not perform the activity before the current illness or injury 88 Not attempted due to Medical conditions or safety concerns Eating (FIM): 6 (Dentures. Pt demonstrates ability to complete independently.) Eating (QC): 6 Grooming (FIM): 6 (Pt able to brush hair by self sitting in w/c at sink. Pt demo ability to brush teeth sitting in w/c at sink.) Oral Hygiene (QC): 6 Bathing (FIM): 6 (Pt requires grab bar, hand held shower head, and shower bench. Pt able to wash, rinse, and dry self. ) Bathing Location: L Arm, R Arm, L Upper Leg, R Upper Leg, L Lower Leg (including foot), R Lower Leg (including foot), Chest, Abdomen, Buttocks, Pe rineal Area Shower/Bathe Self (QC): 6 Upper Body (FIM): 6 (Retrieves clothing using w/c. Pt able to don/doff shirt sitting in w/c. ) Upper Body Dressing (QC): 6 Lower Body Dressing (FIM): 6 (Retrieved clothing using w/c. Pt demo ability to don briefs and pants above knees sitting in w/c. Pt able to stand to hike briefs and pants above waist by self. Pt demo able to doff briefs and pants leaning side to side sitting in w/c. Pt demo ability to don/doff socks and shoes by self sitting in w/c.) Lower Body Dressing (QC): 6 On/Off Footwear (QC): 6 Toileting (FIM): 6 (Pt requires w/c armrests and grab bar. Pt able to manage clothing before and after voiding and BM. Pt able to cleanse self after voiding and BM.) Toileting Hygiene (QC): 6 Transfers (B, C, W/C) (FIM): 6 (Pt requires bed rails to push sit to stand. Pt ambulates 1 ft to w/c. ) Toilet/Commode Transfer (FIM): 6 (Pt requires w/c and grab bars. ) Toilet Transfer (QC): 6 Shower Transfer(FIM): 6 (Pt requires w/c, grab bar, and shower bench. ) Other Treatment Pt transferred to bed. Call light and phone within reach. Nrsg notified to change dressing. All needs met in room. OT Short Term Goals Short Term Goals Time Frame: Dec 08, 2018 Eating(FIM): 5 Grooming(FIM): 5 Bathing(FIM): 4 Upper Body Dressing(FIM): 4 Lower Body Dressing(FIM): 3 Toileting(FIM): 3 Transfers (B,C,W/C) (FIM): 4 Toilet/Commode Transfer(FIM): 4 Shower Transfer(FIM): 4 Additional Short Term Goals: 1-Demonstrate ADL Tasks, 2-Verbalize Understanding, 3-ImproveStrength/Juan F 1=Demonstrate adherence to instructed precautions during ADL tasks. 2=Patient will verbalize/demonstrate understanding of assistive devices/modifications for ADL. 3=Patient will improve strength/tolerance for activity to enable patient to perform ADL's. OT Half-Way Goals Half-Way Goals Time Frame: Dec 22, 2018 Eating (FIM): 6 (met-12/23/2018) Eating (QC): 6 (met-12/23/2018) Groomin (met-12/23/2018) Oral Hygiene (QC): 6 (met-12/23/2018) Bathing(FIM): 5 (12/23/2018) Shower/Bathe Self (QC): 4 (12/23/2018) Upper Body Dressing(FIM): 5 (12/23/2018) Upper Body Dressing (QC): 4 (12/23/2018) Lower Body Dressing(FIM): 5 (12/23/2018) Lower Body Dressing (QC): 4 (12/23/2018) On/Off Footwear (QC): 4 (met12/23/2018) Toileting(FIM): 6 (12/23/2018) Toileting Hygiene (QC): 6 (12/23/2018) Transfers (B,C,W/C) (FIM): 6 (12/23/2018) Toilet/Commode Transfer(FIM): 6 (12/23/2018) Toilet/Commode Transfer (QC): 6 (12/23/2018) Shower Transfer(FIM): 5 (12/23/2018) Additional Goals: 1-Demonstrate ADL Tasks, 2-Verbalize Understanding, 3-ImproveStrength/Juan F 1=Demonstrate adherence to instructed precautions during ADL tasks. 2=Patient will verbalize/demonstrate understanding of assistive devices/modifications for ADL. 3=Patient will improve strength/tolerance for activity to enable patient to perform ADL's. OT Education/Plan Problem List/Assessment Assessment: Decreased Activ Tolerance, Impaired Self-Care Skills Discharge Recommendations Plan Discharge to home 12/24/2018 Plan/Recommendations: Continue POC Treatment Plan/Plan of Care Patient would benefit from OT for education, treatment and training to promote independence in ADL's, mobility, safety and/or upper extremity function for ADL's. Plan of Care: ADL Retraining, Functional Mobility, Group Exercise/Act as Ind, UE Funct Exercise/Act Treatment Duration: Dec 22, 2018 Frequency: At least 5 of 7 days/Wk (IRF) Estimated Hrs Per Day: 1.5 hours per day Agreement: Yes Rehab Potential: Good Time/GCodes Start Time: 07:00 Stop Time: 08:00 Total Time Billed (hr/min): 60 Billed Treatment Time 1 visit- ADL 4 (60 min) CEDRIC DURANT Dec 23, 2018 08:09
[2018-12-23] MEDS: DOCUSATE SODIUM 100 MG (COLACE) CAP PO SCH ×2 (09:51→21:20)
[2018-12-23] MEDS: SENNA W/DOCUSATE (SENOKOT S) TABLET PO SCH ×2 (09:51→21:20)
--- NOTE | 2018-12-23 10:52 | Physical Therapy Daily Note ---
PT Daily Note-Current Subjective Pt agreeable to PT session. States she is feeling she has progressed very well on the rehab floor and feels she is ready to go home tomorrow Pain Numeric Pain Scale: 7 Location: Left Comment: leg and foot, nsg aware Appearance Pt sitting up in w/c upon arrival. At end of session, pt supine in bed per pt request, call light, phone and bedside table within reach Mental Status Patient Orientation: Person, Place, Time, Eyes Open, Situation Attachments: Saline Lock, Oxygen (3L O2/NC) Transfers Therapy Code Descriptions/Definitions Functional [place] Measure: 0=Not Assessed/NA 4=Minimal Assistance 1=Total Assistance 5=Supervision or Setup 2=Maximal Assistance 6=Modified [place] 3=Moderate Assistance 7=Complete [place] Therapy Quality Codes: 6 Independent with activity with or without an assistive device 5 Patient requires set up or clean up by helper. Patient completes activity by themselves 4 Supervision or touching assist (CGA). Shannon provide cues , steadying assist 3 The helper provides less than half the effort to complete the activity 2 The helper provides more than half the effort to complete the activity 1 Dependent. The helper does all the effort to complete an activity 7 Patient refused to complete or attempt activity 9 The patient did not perform the activity before the current illness or injury 88 Not attempted due to Medical conditions or safety concerns Transfers (B, C, W/C) (FIM): 6 Scootin Rollin Roll Left to Right (QC): 6 Supine to/from Sit: 6 Sit to/from Stand: 6 Sit to Lying (QC): 6 Sit to Stand (QC): 6 Chair/Nhu-ci-Yzjzx Xfer(QC): 6 Bed to/from Chair: 6 Car Transfer (QC): 6 Pt demonstrating good safe techniques with all transitions. Uses hands with sit to from stand. Bed flat and no bedrails during sit to from supine, pt demonstrating good technique with log roll although does increase shoulder pain Gait Training Does the Patient Walk?: Yes Gait (FIM): 6 Distance (FIM): 3=150 ft Distance: 150, 75 Walk 10 feet (QC): 6 Walk 50 ft with 2 Turns(QC): 6 Walk 150 ft (QC): 6 Walking 10ft/uneven surface-QC: 6 Gait Level of Assist: 6 Gait Persons Needed: 1 Gait Assistive Device: FWW (barriatric) quickly fatigues requiring several rest breaks, noted SOA, decreased step length and height Stair Training Stair Training: Handrails/: uses walker Stairs (FIM): 1 #of Steps: 2 1 Step (curb) (QC): 6 4 Steps (QC): 9 12 Steps (QC): 9 Stairs: Pattern: Step to Level of Assist: 6 Pt reports she did not walk stairs before this current illness, would only occasionally have to step up or down a curb Balance Picking up an Object (QC): 6 Exercises Seated Therapy Exercises: Ankle pumps (PF, DF, INV, EV, CW/CCW circles, calf st retch, pf stretch), Sit to stand Seated Reps: 10 (deep tissue flexibility through LLLE knee to toes to decrease pain and increase mobility) Treatments transfers, safety, toileting, gait, education, strength, ROM, balance, activity tolerance, functional mobility, pain management, balance, car transfers, toilet transfer, bed mobility, steps/curb training Assessment Current Status: Good Progress Pt has met all goals except stair goals as pt refused stating she did not perform this activity before her current illness PT Short Term Goals Short Term Goals Time Frame: Dec 15, 2018 Transfers (B,C,W/C) (FIM): 4 Gait (FIM): 4 Distance (FIM): 3=150 ft Gait Assistive Device: FWW Wheelchair Distance: 150'x2 PT Cardiology Specialist Goals Skilled Nursing Goals PT Skilled Nursing Goals Time Frame: Dec 29, 2018 Transfers (B,C,W/C) (FIM): 6 Sit to Lying (QC): 6 Lying-Sitting on Side/Bed(QC): 6 Sit to Stand (QC): 6 Rollin Roll Left to Right (QC): 6 Chair/Wqn-sg-Sysat Xfer(QC): 6 Car Transfer (QC): 6 Does the Patient Walk: Yes Gait (FIM): 6 Gait distance (FIM): 3=150 ft Walk 10 feet (QC): 6 Walk 10ft-Uneven Surface(QC): 6 Walk 50ft with 2 Turns (QC): 6 Walk 150 ft (QC): 6 Gait Assistive Device: FWW Does the Pt use WC or Scooter?: No Stairs (FIM): 5 # of Steps: 4 1 Step (curb) (QC): 6 4 Steps (QC): 6 12 Steps (QC): 9 Picking up an Object (QC): 9 PT Plan Treatment/Plan Treatment Plan: Continue Plan of Care Treatment Plan: Bed Mobility, Education, Functional Activity Juan F, Functional Strength, Group Therapy, Gait, Safety, Therapeutic Exercise, Transfers Treatment Duration: Dec 29, 2018 Frequency: At least 5 of 7 days/Wk (IRF) Estimated Hrs Per Day: 1.5 hours per day Patient and/or Family Agrees t: Yes Safety Risks/Education Patient Education: Gait Training, Transfer Techniques, Steps, Safety Issues Teaching Recipient: Patient Teaching Methods: Demonstration, Discussion Response to Teaching: Verbalize Understanding, Return Demonstration Discharge Recommendations Equpiment Recommendations-D/C: Other, Please Explain (Pt would benefit from use of w/c upon discharge from facility for energy conservation 2* frequent rest breaks required with SOA and fatigue during short distances of gait with FWW) Time/GCodes Time In: 1000 Time Out: 1045 Total Billed Treatment Time: 45 Total Billed Treatment 1 visit, GT x15 min, FA x15 min, EX x15 min GLADIS SINCLAIR HOT KETTLE TENDER Dec 23, 2018 10:52
--- NOTE | 2018-12-23 11:43 | NUR ---
TREND INVESTIGATOR met with patient to inform of lack of network coverage for [place], patient's secondary provider choice is [facility]. TREND INVESTIGATOR sent referral and received contact from Antwan at [facility] for services. Start of care will occur on . Patient expresses no concerns regarding discharge plans for tomorrow. Please see discharge summary for further information.. Addendum: 12/23/18 at 1148 by MANUEL BYRD SS Wheelchair to be delivered from [facility] this day.
--- NOTE | 2018-12-23 11:52 | Progress Note ---
CYN MENON [facility] STUD 12/23/18 1152: Subjective Date Seen by a Provider: Dec 23, 2018 Time Seen by a Provider: 06:00 Subjective/Events-last exam pt is in a very good mood this AM & is exited to be d/c Denies any pain has been doing very well in PT/OT Scoring almost all 6s on FIMs Ready for d/c on Wednesday12/24/18 Reviewed notes, meds Review of Systems General: No Chills, No Fatigue Pulmonary: No Dyspnea, No Cough, No Pleuritic Chest Pain Cardiovascular: No: Chest Pain, Palpitations Gastrointestinal: No: Nausea, Vomiting Genitourinary: No Dysuria, No Incontinence Objective Exam Last Set of Vital Signs Vital Signs Date Time Temp Pulse Resp B/P (MAP) Pulse Ox O2 Delivery O2 Flow Rate FiO2 12/23/18 09:00 High Flow N/C 2.00 12/23/18 08:07 85 116/68 12/23/18 07:07 96 12/23/18 05:58 36.4 20 Capillary Refill : Less Than 3 Seconds I&O Intake and Output 12/23/18 00:00 Intake Total 1180 ml Balance 1180 ml Intake Oral 1180 ml # Voids 3 # Bowel Movements 1 General: Alert, Oriented X3, Cooperative, No Acute Distress HEENT: Atraumatic Neck: Supple Heart: Regular Rate, Normal S1, Normal S2, No Murmurs Extremities: No Clubbing, Normal Pulses Results Lab Laboratory Tests 12/22/18 15:26: Glucometer 137H 12/22/18 20:29: Glucometer 165H 12/23/18 05:17: Glucometer 142H 12/23/18 11:11: Glucometer 180H Assessment/Plan Assessment/Plan Assess & Plan/Chief Complaint Assessment: 1. tolerating wet to dry dressing well 2. Left leg radiculopathy 3. Affect greatly improved Plan 1. Continue PT/OT 2.maintain Wet to dry wound care 3.Monitor mental state/mood 4. Left leg radiculopathy manage conservatively 5. Plan for D/C Wednesday Clinical Quality Measures DVT/VTE Risk/Contraindication: Risk Factor Score Per Nursin RFS Level Per Nursing on Admit: 4+=Very High DANG LICEA DO 12/23/18 1523: Supervisory-Addendum Brief Verification & Attestation Participated in pt care: history, MDM, physical Personally performed: exam, history, MDM, supervision of care Care discussed with: Medical Student Procedures: n/a Results interpretation: Verified all documentation Verification and Attestation of Medical Student E/M Service A medical student performed and documented this service in my presence. I reviewed and verified all information documented by the medical student and made modifications to such information, when appropriate. I personally performed the physical exam and medical decision making. Dang Licea, Dec 23, 2018,15:23 CYN MENON [facility] Dec 23, 2018 11:52 DANG LICEA DO Dec 23, 2018 15:23
--- NOTE | 2018-12-23 12:06 | Pulmonary Progress Note ---
Standard Progress Note Progress Notes Date Seen by Provider: Dec 23, 2018 Time Seen by Provider: 11:40 Pt laying supine asleep; awakens easily, wearing oxygen and denies c/o of cough, f/ns/c. She has her cpap with her and is using nightly. She denies any c/o. Assessment & Plan Lungs cta, Acute on chronic Resp fx - improved COPD -stable -advair and duoneb -cxr -reviewed from 11/30 hypoxemia -2L BRAYAN - tx with home pap discharge - pt states plan is for tomorrow f/u in 2-3 wks (Admission notes, pulmonary notes, images, and labs were reviewed from recent hospital stay in order to provide continued care.) SCARLETT MICHELE APRN Dec 23, 2018 12:06
[2018-12-23] MEDS: ENOXAPARIN 40 MG/0.4 ML (LOVENOX) SYR SC SCH ×2 (12:48→22:50)
[2018-12-23 13:00] VITALS: BP 95/64
--- NOTE | 2018-12-23 13:06 | Speech Therapy Daily Note ---
Speech Daily Progress Note Subjective Date Seen by Provider: Dec 23, 2018 Time Seen by Provider: 00:30 The patient was eating breakfast when I entered her room. She is anxious to return home tomorrow. Objective The patient had a regular diet for breakfast which she consumed with 100% of compensatory strategies utilization without cues. Assessment Assessment Current Status: Good Progress Treatment Plan Discontinue ST, Goals Met Communication Comprehension: 7 Expression: 7 Social Cognition Social Interaction: 7 Problem Solvin Memory: 7 Speech Short Term Goals Short Term Goals Short Term Goals 1) The patient will tolerate least restrictive diet level without s/s of aspiration at 90% or greater. Met 2) The patient will utilize compensatory strategies as trained for safe oral intake at 90% or greater given minimal verbal cues. Met Speech Senior Care Goals Senior Care Goals The patient will maintain adequate nutrition/hydration via safe effective swallow function. Met Speech-Plan Patient/Family Goals Patient/Family Goals: The patient is returning to her home tomorrow with family near by for support as needed. Treatment Plan Speech Therapy Treatment Plan: Discontinue ST, Goals Met Treatment Duration: Dec 24, 2018 Frequency: 5 times per week Estimated Hrs Per Day: .25 hour per day Rehab Potential: Good Barriers to Learning: None identified at this time. Pt/Family Agrees to Plan: Yes Safety Risks/Education Teaching Recipient: Patient Teaching Methods: Demonstration, Discussion Response to Teaching: Verbalize Understanding, Return Demonstration Education Topics Provided: Continued safety with oral intake at her home. Time Speech Therapy Time In: 08:00 Speech Therapy Time Out: 08:30 Total Billed Time: 30 Billed Treatment Time 1, DYST ANTHONY Carvalho Dec 23, 2018 13:06
--- NOTE | 2018-12-23 13:10 | Therapy Team Discharge Summary ---
Therapy Discharge Summary Discharge Recommendations Date of Discharge Therapy D/C Recommendations: Physical Therapy Home Care Occupational Therapy Decreased Activ Tolerance, Impaired Self-Care Skills Speech-Language Pathology The patient was admitted to the ARU s/p abdominal surgery. The patient was on a puree diet level at time due to intake complications. The patient was given a Bedside Dysphagia Evaluation and followed with compensatory strategies training for safe oral intake. The patient has met all dysphagia goals and utilizes compensatory strategies as trained. The patient is discharging to her home tomorrow and will discharge from skilled ST at that time as well. PT Usp Goals Milk Powder Grinder Goals PT Usp Goals Time Frame: Dec 29, 2018 Transfers (B,C,W/C) (FIM): 6 Roll Left to Right (QC): 6 Sit to Lying (QC): 6 Lying-Sitting on Side/Bed(QC): 6 Sit to Stand (QC): 6 Chair/Acu-gi-Kvehj Xfer(QC): 6 Car Transfer (QC): 6 Does the Patient Walk: Yes Gait (FIM): 6 Gait distance (FIM): 3=150 ft Walk 10 feet (QC): 6 Walk 10ft-Uneven Surface(QC): 6 Walk 50ft with 2 Turns (QC): 6 Walk 150 ft (QC): 6 Gait Assistive Device: FWW Does the Pt use WC or Scooter?: No Stairs (FIM): 5 # of Steps: 4 1 Step (curb) (QC): 6 4 Steps (QC): 6 12 Steps (QC): 9 Picking up an Object (QC): 9 OT Milk Powder Grinder Goals Milk Powder Grinder Goals Time Frame: Dec 22, 2018 Eating (FIM): 6 (met-12/23/2018) Eating (QC): 6 (met-12/23/2018) Oral Hygiene (QC): 6 (met-12/23/2018) Grooming(FIM): 6 (met-12/23/2018) Bathing(FIM): 5 (met-12/23/2018) Shower/Bathe Self (QC): 4 (met-12/23/2018) Upper Body Dressing(FIM): 5 (met12/23/2018) Upper Body Dressing (QC): 4 (met12/23/2018) Lower Body Dressing(FIM): 5 (met-12/23/2018) Lower Body Dressing (QC): 4 (met-12/23/2018) On/Off Footwear (QC): 4 ([facility]-12/23/2018) Toileting(FIM): 6 ([facility]-12/23/2018) Toileting Hygiene (QC): 6 ([facility]-12/23/2018) Transfers (B,C,W/C) (FIM): 6 ([facility]-12/23/2018) Toilet/Commode Transfer(FIM): 6 ([facility]-12/23/2018) Toilet/Commode Transfer (QC): 6 (met-12/23/2018) Shower Transfer(FIM): 5 ([facility]/23/2018) Additional Goals: 1-Demonstrate ADL Tasks, 2-Verbalize Understanding, 3-ImproveStrength/Juan F 1=Demonstrate adherence to instructed precautions during ADL tasks. 2=Patient will verbalize/demonstrate understanding of assistive devices/modifications for ADL. 3=Patient will improve strength/tolerance for activity to enable patient to perform ADL's. Speech Usp Goals Milk Powder Grinder Goals The patient will maintain adequate nutrition/hydration via safe effective swallow function. Met ANTHONY SU Dec 23, 2018 13:10
--- NOTE | 2018-12-23 13:14 | Cardiology Progress Note ---
Cardiology SOAP Progress Note Subjective: No symptoms Objective: I&O/Vital Signs 12/24/18 12/24/18 12/24/18 12/24/18 05:58 07:08 08:00 10:48 Temp 37.0 Pulse 93 Resp 20 B/P (MAP) 124/78 Pulse Ox 96 96 O2 Delivery Nasal Cannula Nasal Cannula High Flow N/C O2 Flow Rate 3.00 3.00 2.00 12/24/18 00:00 Intake Total 780 ml Balance 780 ml Weight (Pounds): 273 Weight (Ounces): 2.0 Weight (Calculated Kilograms): 123.019726 Constitutional: AAO x 3, well-developed, well-nourished Respiratory: No accessory muscle use, No respiratory distress, No chest tender, No chest expansion is symmetric; chest is bilaterally symmetric; No lungs clear to percussion; lungs clear to auscultation; No crackles, No rhonchi, No rales, No stridor, No wheezing, No pleural rub, No other Cardiovascular: regular rate-rhythm; No irregularly irregular, No extra beats, No parasternal heave is noted, No JVD, No edema, No bradycardia, No tachycardia, No point of maximal impulse, No cardiac thrills are palpable; S1 and S2; No gallop/S3, No gallop/S4, No diastolic murmur, No systolic murmur, No friction rub, No click, No other Gastrointestional: other (wound around the umbilicus.) Extremities: normal range of motion, non-tender, normal inspection, no lower extremity edema bilateral Neurologic/Psychiatric: alert, normal mood/affect, oriented x 3 Skin: normal color Results/Procedures: Labs Laboratory Tests 12/23/18 15:27: Glucometer 175H 12/23/18 20:11: Glucometer 165H 12/24/18 05:37: Glucometer 142H A/P: Assessment/Dx: Respiratory failure COPD HTN HLP Plan: Status post respiratory failure, resolved, using C Pap on and off, Continue to monitor Enterocutaneous fistula postoperatively, 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 Olevra Acute non-ST elevation myocardial infarction, poor R-wave progression in the anterior leads, probably type II myocardial infarctions due to respiratory failure, underlying coronary artery disease cannot be entirely excluded. Echocardiogram showed normal LV function. Continue with conservative management at this time, continue to monitor. Troponin level trended down, no acute EKG changes suggestive of active ischemia, conservative management at this time. Consider stress test as outpatient. Hypertension, controlled, monitor blood pressure Hyperlipidemia maintained on Lipitor, on hold at this point COPD, oxygen dependent, receiving therapy. Morbid obesity Diabetes mellitus, followed and managed by primary care physician History of tobaccoism Generalized debility/weakness. Continue to monitor. Thank you for your consultation. Please call me if you have any questions. Dale Hanley MD, FACP, FACC, FSCAI, FHRS, CCDS Interventional Cardiology Cardiac Electrophysiology Vascular Medicine and Endovascular Interventions Alaina HANLEY MD Dec 23, 2018 13:14
--- NOTE | 2018-12-23 14:44 | Therapy Group Daily Note ---
Therapy Daily Group Note Patient Education Topic Other List Below (balance) Exercises LE Seated Exercise, UE Exercise Session Ratio (pt:therapist): 4:1 Goal of Session: UE/LE Strengthing, Other (list) (balance) Goal Met for this Session: Yes Pt Benefit of Group: Contributions to Others, Increased Functional Safety, Increased Functional Strength, Improved Cognition, Recognition of Peers, Socialization Other/Notes Pt maneuvered w/c to OT/PT group. Group consisted of introductions (name, place living, skills learned as a child and continue to use today), socialization, seated UE/LE exercises, ARU expectations and education on balance. Pt able to introduce self appropriately and actively listened to peers. Pt able to understand and complete UE/LE seated exercises. Pt acknowledged understanding of balance and prevention of falls due to balance issues verbally and with gestures. After therapy, pt lying in bed with call light/phone in reach. All needs met in room. Start Time: 13:00 Stop Time: 14:10 Total Billed Treatment Time: 70 Total Billed Treatment 1-[facility]IC DURANT Dec 23, 2018 14:44
--- NOTE | 2018-12-23 15:24 | PM&R Progress Note ---
Subjective HPI/CC On Admission Date Seen by Provider: Dec 23, 2018 Time Seen by Provider: 15:00 Chief complaint: Disuse myopathy. HPI: This is a 63[facility]WF [facility] Pt known to me from last week hospital admission when she required intubation for acute on chronic respiratory failure with obesity-hypoventilation syndrome following hernia repair. She was able to be extubated without complication and continued to be on high flow oxygen and had suffered these issues following an uncomplicated ventral hernia surgery. Due to her morbid obesity and likely chronic CO2 retention she went into respiratory failure, had significant difficulties with multisystem organ dysfunction and was eventually able to move down to fourth floor but repeat CT scam obtained due to elevated white count per Dr. Olvera showed some sort of fistula. 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 She remained on TPN, clear liquid diet only and IV antibiotics to help heal that area. At this current time, the Pt is denying any pain and is getting around better since she was living independently and ambulating at home. The goal is to return to near prior level of function and be able to return back to independent level of living. Subjective/Events-last exam Discharge is planned on Wednesday. Wet to dry dressing, and are working very well for her. Will prescribe Levemir at discharge so nursing will provide education for that and a cold will take care of that this afternoon. PT did work with her piriformis and that seems to really have helped the left leg. Reviewed all discharge meds and I finalized everything and sent medications to [facility] as requested. Check meds and labs Conferred with RN Reviewed therapy notes Overall improving status Objective Exam Vital Signs Vital Signs Date Time Temp Pulse Resp B/P (MAP) Pulse Ox O2 Delivery O2 Flow Rate FiO2 12/23/18 15:31 36.3 82 16 95/62 96 Nasal Cannula 4.00 Capillary Refill : Less Than 3 Seconds General Appearance: No Apparent Distress, WD/WN, Chronically ill, Obese HEENT: PERRL/EOMI, Normal ENT Inspection, Pharynx Normal, Moist Mucous Membranes Neck: Full Range of Motion, Non Tender, Supple Respiratory: Chest Non Tender, Lungs Clear, Normal Breath Sounds, No Accessory Muscle Use, No Respiratory Distress Cardiovascular: Regular Rate, Rhythm, No Edema, No Gallop, No JVD, No Murmur, Normal Peripheral Pulses Gastrointestinal: Normal Bowel Sounds, No Organomegaly, No Pulsatile Mass, S oft, Tenderness, Other Back: Normal Inspection, No CVA Tenderness, No Vertebral Tenderness Extremity: Normal Capillary Refill, Normal Range of Motion, No Calf Tenderness, No Pedal Edema, Other Neurologic/Psychiatric: Alert, Oriented x3, No Motor/Sensory Deficits, Normal Mood/Affect, dairy products maker II-XII Norm as Tested, Motor Weakness Skin: Normal Color, Warm/Dry Lymphatic: No Adenopathy Results/Procedures Lab Patient resulted labs reviewed. FIM Transfers Therapy Code Descriptions/Definitions Functional [place] Measure: 0=Not Assessed/NA 4=Minimal Assistance 1=Total Assistance 5=Supervision or Setup 2=Maximal Assistance 6=Modified [place] 3=Moderate Assistance 7=Complete [place] Therapy Quality Codes: 6 Independent with activity with or without an assistive device 5 Patient requires set up or clean up by helper. Patient completes activity by themselves 4 Supervision or touching assist (CGA). [place] provide cues , steadying assist 3 The helper provides less than half the effort to complete the activity 2 The helper provides more than half the effort to complete the activity 1 Dependent. The helper does all the effort to complete an activity 7 Patient refused to complete or attempt activity 9 The patient did not perform the activity before the current illness or injury 88 Not attempted due to Medical conditions or safety concerns Transfers (B, C, W/C) (FIM): 6 Scootin Rollin Roll Left to Right (QC): 6 Supine to/from Sit: 6 Sit to/from Stand: 6 Sit to Lying (QC): 6 Sit to Stand (QC): 6 Chair/Zqm-uf-Gysbl Xfer(QC): 6 Bed to/from Chair: 6 Car Transfer (QC): 6 Gait Training Does the Patient Walk?: Yes Gait (FIM): 6 Distance (FIM): 3=150 ft Distance: 150, 75 Walk 10 feet (QC): 6 Walk 50 ft with 2 Turns(QC): 6 Walk 150 ft (QC): 6 Walking 10ft/uneven surface-QC: 6 Gait Level of Assist: 6 Gait Persons Needed: 1 Gait Assistive Device: FWW (barriatric) Wheelchair Training Does the Pt Use a Wheelchair?: Yes Wheelchair (FIM): 5 Wheelchair Distance: 3=150 ft Distance: 150'x2 Wheelchair Level of Assist: 5 Wheel 50 ft with 2 turns (QC): 5 Wheel 150 ft (QC): 5 Type of Wheelchair: Manual Stair Training Stair Training: Handrails/: uses walker Stairs (FIM): 1 #of Steps: 2 1 Step (curb) (QC): 6 4 Steps (QC): 9 12 Steps (QC): 9 Stairs: Pattern: Step to Level of Assist: 6 Balance Picking up an Object (QC): 6 Mental Status/Objective Comprehension: 7 Expression: 7 Social Interaction: 7 Problem Solvin Memory: 7 ADL-Treatment Feedin (Dentures. Pt demonstrates ability to complete independently.) Eating (QC): 6 Groomin (Pt able to brush hair by self sitting in w/c at sink. Pt demo ability to brush teeth sitting in w/c at sink.) Oral Hygiene (QC): 6 Bathin (Pt requires grab bar, hand held shower head, and shower bench. Pt able to wash, rinse, and dry self. ) Bathing Location: L Arm, R Arm, L Upper Leg, R Upper Leg, L Lower Leg (including foot), R Lower Leg (including foot), Chest, Abdomen, Buttocks, Perineal Area Shower/Bathe Self (QC): 6 Upper Extremity Dressin (Retrieves clothing using w/c. Pt able to don/doff shirt sitting in w/c. ) Upper Body Dressing (QC): 6 Lower Extremity Dressin (Retrieved clothing using w/c. Pt demo ability to don briefs and pants above knees sitting in w/c. Pt able to stand to hike briefs and pants above waist by self. Pt demo able to doff briefs and pants leaning side to side sitting in w/c. Pt demo ability to don/doff socks and shoes by self sitting in w/c.) Lower Body Dressing (QC): 6 On/Off Footwear (QC): 6 Toiletin (Pt requires w/c armrests and grab bar. Pt able to manage clothing before and after voiding and BM. Pt able to cleanse self after voiding and BM.) Toileting Hygiene (QC): 6 Toilet/Commode Transfer: 6 (Pt requires w/c and grab bars. ) Toilet Transfer (QC): 6 Shower: 6 (Pt requires w/c, grab bar, and shower bench. ) Assessment/Plan Assessment and Plan Assess & Plan/Chief Complaint Plan: IRF protocol OOB in chair most of day every day Advanced diet doing well at Dysphagia 3 Right flank hematoma now resolved Lovenox maintained for DVT PPx O2 maintained and weaning well now at 2L/min which she is on that at home PLOF was ambulating at home Ostomy care per surgical service and now wound vac DC and wet to dry dressings intact Left leg radiculopathy evaluated and will managed conservatively but has spine disease prior to this hospital stay Monitor labs prn Pet pass was successful and hopefully will be able to see the dog later Psych evaluation for depression is appreciated and I changed meds to her recs. Depression improved Left leg radiculopathy managed conservatively Replace potassium PO BID Check labs prn Abx completed [facility] appt 12/26/[address] Alessandro PLAZA Wednesday (1) Myopathy (2) COPD (chronic obstructive pulmonary disease) Status: Chronic Qualifiers: COPD type: unspecified COPD Qualified Codes: J44.9 - Chronic obstructive pulmonary disease, unspecified (3) Hypokalemia Status: Acute (4) Diabetes mellitus, type 2 Status: Chronic Qualifiers: Diabetes mellitus termite control service representative insulin use: with termite control service representative use Diabetes mellitus complication status: with other specified complication Qualified Codes: E11.69 - Type 2 diabetes mellitus with other specified complication; Z79.4 - prison (current) use of insulin (5) Ventilator dependence Status: Resolved Resolution Date/Time: 11/25/18 @ 20:44 (6) Enterocutaneous fistula Status: Acute (7) Obesity hypoventilation syndrome Status: Chronic (8) On total parenteral nutrition (TPN) Status: Acute (9) BRAYAN treated with BiPAP Status: Chronic (10) Smoker Status: Chronic ALEIDA LICEA DO Dec 23, 2018 15:24
[2018-12-23 15:31] VITALS: BP 95/62
--- NOTE | 2018-12-23 19:06 | NUR ---
bedside report received from LONI JETT, assume care of pt
[2018-12-23 21:15] VITALS: BP 113/78
[2018-12-23] MEDS: MELATONIN 3 MG TABLET PO PRN (21:15)
--- NOTE | 2018-12-23 21:17 | NUR ---
pt refused Colace & Senokot, fsbs 165 no ss insulin required c/o pain level 8/10 on numeric scale, Ultram 50mg po given
--- NOTE | 2018-12-23 21:22 | NUR ---
assessments & interventions completed, see assessments & interventions
--- NOTE | 2018-12-23 22:00 | NUR ---
central line discontinued, pressure held for 5 min then gauze dressing applied, abd dressing changed wet to dry with saline packed into wound draining light brown colored secretions, 4x4 then abd dressing & paper tape
--- NOTE | 2018-12-23 22:10 | NUR ---
rates pain level 2/10 on numeric scale
[2018-12-24] MEDS: DICLOFENAC 1% GEL 100 GM (VOLTAREN) TUBE TOP PRN (00:48)
[2018-12-24] MEDS: ACETAMINOPHEN 325 MG TABLET PO PRN (00:48)
--- NOTE | 2018-12-24 00:48 | NUR ---
c/o lt foot pain level 8/10 on numeric scale, Tylenol 650 & Voltaren gel applied
--- NOTE | 2018-12-24 01:25 | NUR ---
resting quietly in bed, pain level 0/10 on flacc scale
[2018-12-24 05:58] VITALS: BP 124/78
[2018-12-24] MEDS: inSUlin ASPART (NovoLOG) 1 UNIT/0.01 ML (CHARGE PER UNIT) SC SCH (06:00)
[2018-12-24] MEDS: CATHETER FLUSH 10 ML SYR IV SCH (06:00)
[2018-12-24] MEDS: RT-ADVAIR HFA 115/21 MCG PER PUFF IH SCH (07:08)
--- NOTE | 2018-12-24 07:13 | NUR ---
bedside report given to DAVE JETT
[2018-12-24] MEDS: DOCUSATE SODIUM 100 MG (COLACE) CAP PO SCH ×2 (08:54→09:01)
[2018-12-24] MEDS: FUROSEMIDE 20 MG (LASIX) TAB PO SCH (08:54)
[2018-12-24] MEDS: OMEGA 3 (FISH OIL) 1000 MG CAP PO SCH (08:54)
[2018-12-24] MEDS: FLUoxetine HCL 20 MG (PROzac) CAP PO SCH (08:54)
[2018-12-24] MEDS: MAGNESIUM OXIDE (MAG-OX)400 MG TAB PO SCH (08:54)
[2018-12-24] MEDS: NICOTINE PATCH REMOVAL TP SCH (08:54)
[2018-12-24] MEDS: NICOTINE 21 MG (NICODERM) PATCH TD SCH (08:54)
[2018-12-24] MEDS: amLODIPine 10 MG (NORVASC) TAB PO SCH (08:54)
[2018-12-24] MEDS: meTOprolol TARTRATE 25 MG (LOPRESSOR) TABLET PO SCH (08:55)
[2018-12-24] MEDS: LINAGLIPTIN (TRADJENTA) 5 MG TABLET PO SCH (08:55)
[2018-12-24] MEDS: SENNA W/DOCUSATE (SENOKOT S) TABLET PO SCH (08:55)
[2018-12-24] MEDS: DULoxetine 30 MG (CYMBALTA) CAP PO SCH (08:55)
[2018-12-24] MEDS: KCL 10 MEQ TAB (MICRO K) PO SCH (08:55)
[2018-12-24] MEDS: FAMOTIDINE 20 MG (PEPCID) TABLET PO SCH (08:55)
[2018-12-24] MEDS: VITAMIN D3 5,000 UNITS (CHOLECALCIFEROL ) CAPSULE PO SCH (08:55)
[2018-12-24] MEDS: lisINopril 20 MG (PRINIVIL) TABLET PO SCH (08:55)
[2018-12-24] MEDS: ENOXAPARIN 40 MG/0.4 ML (LOVENOX) SYR SC SCH (08:56)
--- NOTE | 2018-12-24 11:25 | Discharge Summary ---
Diagnosis/Chief Complaint Date of Admission Dec 01, 2018 at 10:15 Date of Discharge Discharge Date: Dec 24, 2018 Discharge Diagnosis Plan: IRF protocol OOB in chair most of day every day Advanced diet doing well at Dysphagia 3 Right flank hematoma now resolved Lovenox maintained for DVT PPx O2 maintained and weaning well now at 2L/min which she is on that at home PLOF was ambulating at home Ostomy care per surgical service and now wound vac DC and wet to dry dressings intact Left leg radiculopathy evaluated and will managed conservatively but has spine disease prior to this hospital stay Monitor labs prn Pet pass was successful and hopefully will be able to see the dog later Psych evaluation for depression is appreciated and I changed meds to her recs. Depression improved Left leg radiculopathy managed conservatively Replace potassium PO BID Check labs prn Abx completed [facility] appt 12/26/[address] Alessandro PLAZA Wednesday (1) Myopathy (2) COPD (chronic obstructive pulmonary disease) Status: Chronic Qualifiers: COPD type: unspecified COPD Qualified Codes: J44.9 - Chronic obstructive pulmonary disease, unspecified (3) Hypokalemia Status: Acute (4) Diabetes mellitus, type 2 Status: Chronic Qualifiers: Diabetes mellitus retirement insulin use: with retirement use Diabetes mellitus complication status: with other specified complication Qualified Cod es: E11.69 - Type 2 diabetes mellitus with other specified complication; Z79.4 - prison (current) use of insulin (5) Ventilator dependence Status: Resolved Resolution Date/Time: 11/25/18 @ 20:44 (6) Enterocutaneous fistula Status: Acute (7) Obesity hypoventilation syndrome Status: Chronic (8) On total parenteral nutrition (TPN) Status: Acute (9) BRAYAN treated with BiPAP Status: Chronic (10) Smoker Status: Chronic Reason Hospital Visit Verification and Attestation of Medical Student E/M Service A medical student performed and documented this service in my presence. I reviewed and verified all information documented by the medical student and made modifications to such information, when appropriate. I personally performed the physical exam and medical decision making. Dang Conrad, Dec 01, 2018,20:04 Discharge Summary Discharge Physical Examination Allergies: Coded Allergies: No Known Drug Allergies (Unverified , 11/16/18) Vitals & I&Os Vital Signs Date Time Temp Pulse Resp B/P (MAP) Pulse Ox O2 Delivery O2 Flow Rate FiO2 12/24/18 10:48 12/24/18 08:00 High Flow N/C 2.00 12/24/18 07:08 96 12/24/18 05:58 37.0 93 20 General Appearance: Alert, Oriented X3, Cooperative Respiratory: Clear to Auscultation Cardiovascular: Regular Rate Neuro: Normal Speech, Strength at 5/5 X4 Ext Psych/Mental Status: Mental Status NL, Mood NL Hospital Course Was the Problem List Reviewed?: Yes Hospital course: Patient had a lengthy hospital course for a full 24 days in the inpatient rehab after a very lengthy and complex acute [facility] hospital course following respiratory insufficiency and an enterocutaneous fistula formation managed with bowel rest TPN antibiotics and octreotide. Patient was maintained on insulin and was discharged on insulin after instructions given. Pain was well controlled and she was advanced on diet very slowly over the hospital course. She did maintain on sleep apnea treatment and was weaned off oxygen completely by time of discharge. Labs remained stable and there were no decompensation episodes during the hospital course. She was able to participate in all therapies was able to ambulate with assistive devices and was no longer a fall risk and was able to be discharged home with some family help and home health and will have close follow-up with her primary care provider. Wound care will be maintained until the fistula has completely healed by secondary intention and overall she had a dramatic improvement during her hospital stay. Labs (last 24 hrs) Laboratory Tests 12/01/18 19:16: Glucometer 208H 12/01/18 23:42: Glucometer 145H 12/02/18 05:31: Glucometer 167H 12/02/18 05:40: White Blood Count 15.8H, Red Blood Count 3.84L, Hemoglobin 10.8L, Hematocrit 35, Mean Corpuscular Volume 92, Mean Corpuscular Hemoglobin 28, Mean Corpuscular Hemoglobin Concent 31L, Red Cell Distribution Width 15.9H, Platelet Count 331, Mean Platelet Volume 9.7, Neutrophils (%) (Auto) 69, Lymphocytes (%) (Auto) 14, Monocytes (%) (Auto) 14H, Eosinophils (%) (Auto) 3, Basophils (%) (Auto) 1, Neutrophils # (Auto) 10.9H, Lymphocytes # (Auto) 2.2, Monocytes # (Auto) 2.2H, Eosinophils # (Auto) 0.4H, Basophils # (Auto) 0.2H, Sodium Level 140, Potassium Level 4.5, Chloride Level 106, Carbon Dioxide Level 24, Anion Gap 10, Blood Urea Nitrogen 30H, Creatinine 0.87, Estimat Glomerular Filtration Rate > 60, BUN /Creatinine Ratio 34, Glucose Level 169H, Calcium Level 8.7, Corrected Calcium 9.3, Total Bilirubin 0.4, Aspartate Amino Transf (AST/SGOT) 16, Alanine Aminotransferase (ALT/SGPT) 14, Alkaline Phosphatase 67, Total Protein 7.0, Albumin 3.2 12/02/18 11:31: Glucometer 236H 12/02/18 17:13: Glucometer 159H 12/03/18 00:03: Glucometer 222H 12/03/18 05:29: Glucometer 154H 12/03/18 12:12: Glucometer 253H 12/03/18 17:33: Glucometer 148H 12/04/18 00:08: Glucometer 177H 12/04/18 05:42: Glucometer 151H 12/04/18 12:03: Glucometer 224H 12/04/18 12:40: White Blood Count 10.4, Red Blood Count 4.09L, Hemoglobin 11.4L, Hematocrit 38, Mean Corpuscular Volume 92, Mean Corpuscular Hemoglobin 28, Mean Corpuscular Hemoglobin Concent 30L, Red Cell Distribution Width 16.5H, Platelet Count 321, Mean Platelet Volume 9.8, Neutrophils (%) (Auto) 66, Lymphocytes (%) (Auto) 17, Monocytes (%) (Auto) 13H, Eosinophils (%) (Auto) 2, Basophils (%) (Auto) 2, Neutrophils # (Auto) 6.8, Lymphocytes # (Auto) 1.8, Monocytes # (Auto) 1.4H, Eosinophils # (Auto) 0.3, Basophils # (Auto) 0.2H 12/04/18 17:05: Glucometer 161H 12/04/18 20:40: Glucometer 201H 12/05/18 05:29: Glucometer 132H 12/05/18 05:43: White Blood Count 8.4, Red Blood Count 3.72L, Hemoglobin 10.5L, Hematocrit 34L, Mean Corpuscular Volume 92, Mean Corpuscular Hemoglobin 28, Mean Corpuscular Hemoglobin Concent 31L, Red Cell Distribution Width 16.2H, Platelet Count 278, Mean Platelet Volume 10.0, Neutrophils (%) (Auto) 58, Lymphocytes (%) (Auto) 23, Monocytes (%) (Auto) 13H, Eosinophils (%) (Auto) 3, Basophils (%) (Auto) 2, Neutrophils # (Auto) 4.9, Lymphocytes # (Auto) 2.0, Monocytes # (Auto) 1.1H, Eosinophils # (Auto) 0.3, Basophils # (Auto) 0.2H, Sodium Level 140, Potassium Level 4.3, Chloride Level 106, Carbon Dioxide Level 24, Anion Gap 10, Blood Urea Nitrogen 26H, Creatinine 0.89, Estimat Glomerular Filtration Rate > 60, BUN/Creatinine Ratio 29, Glucose Level 136H, Calcium Level 8.7, Corrected Calcium 9.3, Total Bilirubin 0.3, Aspartate Amino Transf (AST/SGOT) 11, Alanine Aminotransferase (ALT/SGPT) 15, Alkaline Phosphatase 56, Total Protein 7.0, Albumin 3.2 12/05/18 12:01: Glucometer 202H 12/05/18 16:33: Glucometer 118H 12/05/18 20:36: Glucometer 167H 12/06/18 05:50: Glucometer 132H 12/06/18 11:12: Glucometer 146H 12/06/18 15:21: Glucometer 267H 12/06/18 20:38: Glucometer 122H 12/07/18 05:11: Glucometer 130H 12/07/18 11:18: Glucometer 227H 12/07/18 16:33: Glucometer 143H 12/07/18 21:11: Glucometer 238H 12/08/18 05:51: Glucometer 127H 12/08/18 06:25: White Blood Count 5.7, Red Blood Count 3.54L, Hemoglobin 9.9L, Hematocrit 33L, Mean Corpuscular Volume 92, Mean Corpuscular Hemoglobin 28, Mean Corpuscular Hemoglobin Concent 31L, Red Cell Distribution Width 16.1H, Platelet Count 250, Mean Platelet Volume 9.6, Neutrophils (%) (Auto) 51, Lymphocytes (%) (Auto) 34, Monocytes (%) (Auto) 12, Eosinophils (%) (Auto) 2, Basophils (%) (Auto) 1, Neutrophils # (Auto) 2.9, Lymphocytes # (Auto) 1.9, Monocytes # (Auto) 0.7, Eosinophils # (Auto) 0.1, Basophils # (Auto) 0.1, Sodium Level 142, Potassium Level 3.5L, Chloride Level 103, Carbon Dioxide Level 26, Anion Gap 13, Blood Urea Nitrogen 12, Creatinine 0.84, Estimat Glomerular Filtration Rate > 60, BUN/Creatinine Ratio 14, Glucose Level 130H, Calcium Level 8.6, Corrected Calcium 9.2, Total Bilirubin 0.3, Aspartate Amino Transf (AST/SGOT) 13, Alanine Aminotransferase (ALT/SGPT) 13, Alkaline Phosphatase 63, Total Protein 7.2, Albumin 3.2 12/08/18 11:14: Glucometer 221H 12/08/18 15:44: Glucometer 147H 12/08/18 20:18: Glucometer 169H 12/09/18 05:15: Glucometer 125H 12/09/18 10:57: Glucometer 177H 12/09/18 15:19: Glucometer 194H 12/09/18 20:27: Glucometer 168H 12/10/18 05:34: Glucometer 142H 12/10/18 10:58: Glucometer 150H 12/10/18 15:41: Glucometer 214H 12/10/18 20:05: Glucometer 147H 12/11/18 05:07: Glucometer 114H 12/11/18 11:15: Glucometer 232H 12/11/18 16:17: Glucometer 109 12/11/18 20:13: Glucometer 192H 12/12/18 04:48: Glucometer 130H 12/12/18 06:42: White Blood Count 5.1, Red Blood Count 3.68L, Hemoglobin 10.3L, Hematocrit 34L, Mean Corpuscular Volume 92, Mean Corpuscular Hemoglobin 28, Mean Corpuscular Hemoglobin Concent 31L, Red Cell Distribution Width 16.1H, Platelet Count 201, Mean Platelet Volume 10.3, Neutrophils (%) (Auto) 54, Lymphocytes (%) (Auto) 28, Monocytes (%) (Auto) 14H, Eosinophils (%) (Auto) 3, Basophils (%) (Auto) 1, Neutrophils # (Auto) 2.8, Lymphocytes # (Auto) 1.5, Monocytes # (Auto) 0.7, Eosinophils # (Auto) 0.2, Basophils # (Auto) 0.0, Sodium Level 141, Potassium Level 3.5L, Chloride Level 101, Carbon Dioxide Level 30, Anion Gap 10, Blood Urea Nitrogen 11, Creatinine 0.85, Estimat Glomerular Filtration Rate > 60, BUN/Creatinine Ratio 13, Glucose Level 130H, Calcium Level 8.8, Corrected Calcium 9.4, Total Bilirubin 0.4, Aspartate Amino Transf (AST/SGOT) 18, Alanine Aminotransferase (ALT/SGPT) 15, Alkaline Phosphatase 68, Total Protein 7.3, Albumin 3.3 12/12/18 10:52: Glucometer 201H 12/12/18 15:47: Glucometer 135H 12/12/18 21:00: Glucometer 241H 12/13/18 05:32: Glucometer 139H 12/13/18 10:59: Glucometer 184H 12/13/18 15:23: Glucometer 211H 12/13/18 18:32: Glucometer 190H 12/13/18 20:37: Glucometer 164H 12/14/18 05:30: Glucometer 135H 12/14/18 10:59: Glucometer 224H 12/14/18 15:59: Glucometer 243H 12/14/18 20:31: Glucometer 164H 12/15/18 06:27: Glucometer 138H 12/15/18 11:04: Glucometer 310H 12/15/18 15:34: Glucometer 115H 12/15/18 21:45: Glucometer 227H 12/16/18 05:22: Glucometer 137H 12/16/18 06:40: White Blood Count 6.3, Red Blood Count 3.76L, Hemoglobin 10.3L, Hematocrit 34L, Mean Corpuscular Volume 91, Mean Corpuscular Hemoglobin 27, Mean Corpuscular Hemoglobin Concent 30L, Red Cell Distribution Width 16.2H, Platelet Count 216, Mean Platelet Volume 9.6, Neutrophils (%) (Auto) 51, Lymphocytes (%) (Auto) 24, Monocytes (%) (Auto) 20H, Eosinophils (%) (Auto) 4, Basophils (%) (Auto) 1, Neutrophils # (Auto) 3.2, Lymphocytes # (Auto) 1.5, Monocytes # (Auto) 1.3H, Eosinophils # (Auto) 0.3, Basophils # (Auto) 0.0, Neutrophils % (Manual) 50, Lymphocytes % (Manual) 21, Monocytes % (Manual) 21, Eosinophils % (Manual) 4, Basophils % (Manual) 1, Band Neutrophils 3, Polychromasia SLIGHT, Anisocytosis SLIGHT, Sodium Level 140, Potassium Level 3.8, Chloride Level 101, Carbon Dioxide Level 29, Anion Gap 10, Blood Urea Nitrogen 8, Creatinine 0.88, Estimat Glomerular Filtration Rate > 60, BUN/Creatinine Ratio 9, Glucose Level 128H, Calcium Level 8.9, Corrected Calcium 9.5, Total Bilirubin 0.5, Aspartate Amino Transf (AST/SGOT) 14, Alanine Aminotransferase (ALT/SGPT) 13, Alkaline Phosphatase 75, Total Protein 7.3, Albumin 3.2 12/16/18 11:00: Glucometer 189H 12/16/18 15:37: Glucometer 157H 12/16/18 20:18: Glucometer 210H 12/17/18 05:32: Glucometer 162H 12/17/18 11:26: Glucometer 208H 12/17/18 15:38: Glucometer 157H 12/17/18 20:31: Glucometer 245H 12/18/18 05:27: Glucometer 124H 12/18/18 11:42: Glucometer 160H 12/18/18 16:30: Glucometer 216H 12/18/18 20:45: Glucometer 180H 12/19/18 05:30: White Blood Count 7.1, Red Blood Count 3.58L, Hemoglobin 9.9L, Hematocrit 33L, Mean Corpuscular Volume 91, Mean Corpuscular Hemoglobin 28, Mean Corpuscular Hemoglobin Concent 30L, Red Cell Distribution Width 15.9H, Platelet Count 248, Mean Platelet Volume 9.6, Neutrophils (%) (Auto) 55, Lymphocytes (%) (Auto) 24, Monocytes (%) (Auto) 16H, Eosinophils (%) (Auto) 5, Basophils (%) (Auto) 1, Neutrophils # (Auto) 3.9, Lymphocytes # (Auto) 1.7, Monocytes # (Auto) 1.1H, Eosinophils # (Auto) 0.3, Basophils # (Auto) 0.1, Sodium Level 140, Potassium Level 3.6, Chloride Level 101, Carbon Dioxide Level 27, Anion Gap 12, Blood Urea Nitrogen 9, Creatinine 0.87, Estimat Glomerular Filtration Rate > 60, BUN/Creatinine Ratio 10, Glucose Level 138H, Calcium Level 9.2, Corrected Calcium 9.8, Total Bilirubin 0.3, Aspartate Amino Transf (AST/SGOT) 18, Alanine Aminotransferase (ALT/SGPT) 10, Alkaline Phosphatase 72, Total Protein 7.3, Albumin 3.2 12/19/18 05:36: Glucometer 150H 12/19/18 10:52: Glucometer 226H 12/19/18 15:55: Glucometer 131H 12/19/18 20:12: Glucometer 220H 12/20/18 05:39: Glucometer 114H 12/20/18 11:35: Glucometer 106 12/20/18 17:01: Glucometer 126H 12/20/18 21:22: Glucometer 153H 12/21/18 05:49: Glucometer 125H 12/21/18 10:51: Glucometer 140H 12/21/18 15:29: Glucometer 153H 12/21/18 20:44: Glucometer 183H 12/22/18 05:46: Glucometer 115H 12/22/18 11:06: Glucometer 142H 12/22/18 15:26: Glucometer 137H 12/22/18 20:29: Glucometer 165H 12/23/18 05:17: Glucometer 142H 12/23/18 11:11: Glucometer 180H 12/23/18 15:27: Glucometer 175H 12/23/18 20:11: Glucometer 165H 12/24/18 05:37: Glucometer 142H Pending Labs Laboratory Tests 12/01/18 19:16: Glucometer 208 12/01/18 23:42: Glucometer 145 12/02/18 05:31: Glucometer 167 12/02/18 05:40: White Blood Count 15.8, Red Blood Count 3.84, Hemoglobin 10.8, Hematocrit 35, M barbara Corpuscular Volume 92, Mean Corpuscular Hemoglobin 28, Mean Corpuscular Hemoglobin Concent 31, Red Cell Distribution Width 15.9, Platelet Count 331, Mean Platelet Volume 9.7, Neutrophils (%) (Auto) 69, Lymphocytes (%) (Auto) 14, Monocytes (%) (Auto) 14, Eosinophils (%) (Auto) 3, Basophils (%) (Auto) 1, Neutrophils # (Auto) 10.9, Lymphocytes # (Auto) 2.2, Monocytes # (Auto) 2.2, Eosinophils # (Auto) 0.4, Basophils # (Auto) 0.2, Sodium Level 140, Potassium Level 4.5, Chloride Level 106, Carbon Dioxide Level 24, Anion Gap 10, Blood Urea Nitrogen 30, Creatinine 0.87, Estimat Glomerular Filtration Rate > 60, BUN/Creatinine Ratio 34, Glucose Level 169, Calcium Level 8.7, Corrected Calcium 9.3, Total Bilirubin 0.4, Aspartate Amino Transf (AST/SGOT) 16, Alanine Aminotransferase (ALT/SGPT) 14, Alkaline Phosphatase 67, Total Protein 7.0, Albumin 3.2 12/02/18 11:31: Glucometer 236 12/02/18 17:13: Glucometer 159 12/03/18 00:03: Glucometer 222 12/03/18 05:29: Glucometer 154 12/03/18 12:12: Glucometer 253 12/03/18 17:33: Glucometer 148 12/04/18 00:08: Glucometer 177 12/04/18 05:42: Glucometer 151 12/04/18 12:03: Glucometer 224 12/04/18 12:40: White Blood Count 10.4, Red Blood Count 4.09, Hemoglobin 11.4, Hematocrit 38, Mean Corpuscular Volume 92, Mean Corpuscular Hemoglobin 28, Mean Corpuscular Hemoglobin Concent 30, Red Cell Distribution Width 16.5, Platelet Count 321, Mean Platelet Volume 9.8, Neutrophils (%) (Auto) 66, Lymphocytes (%) (Auto) 17, Monocytes (%) (Auto) 13, Eosinophils (%) (Auto) 2, Basophils (%) (Auto) 2, Neutrophils # (Auto) 6.8, Lymphocytes # (Auto) 1.8, Monocytes # (Auto) 1.4, Eosinophils # (Auto) 0.3, Basophils # (Auto) 0.2 12/04/18 17:05: Glucometer 161 12/04/18 20:40: Glucometer 201 12/05/18 05:29: Glucometer 132 12/05/18 05:43: White Blood Count 8.4, Red Blood Count 3.72, Hemoglobin 10.5, Hematocrit 34, Mean Corpuscular Volume 92, Mean Corpuscular Hemoglobin 28, Mean Corpuscular Hemoglobin Concent 31, Red Cell Distribution Width 16.2, Platelet Count 278, Mean Platelet Volume 10.0, Neutrophils (%) (Auto) 58, Lymphocytes (%) (Auto) 23, Monocytes (%) (Auto) 13, Eosinophils (%) (Auto) 3, Basophils (%) (Auto) 2, Neutrophils # (Auto) 4.9, Lymphocytes # (Auto) 2.0, Monocytes # (Auto) 1.1, Eosinophils # (Auto) 0.3, Basophils # (Auto) 0.2, Sodium Level 140, Potassium Level 4.3, Chloride Level 106, Carbon Dioxide Level 24, Anion Gap 10, Blood Urea Nitrogen 26, Creatinine 0.89, Estimat Glomerular Filtration Rate > 60, BUN/Creatinine Ratio 29, Glucose Level 136, Calcium Level 8.7, Corrected Calcium 9.3, Total Bilirubin 0.3, Aspartate Amino Transf (AST/SGOT) 11, Alanine Aminotransferase (ALT/SGPT) 15, Alkaline Phosphatase 56, Total Protein 7.0, Albumin 3.2 12/05/18 12:01: Glucometer 202 12/05/18 16:33: Glucometer 118 12/05/18 20:36: Glucometer 167 12/06/18 05:50: Glucometer 132 12/06/18 11:12: Glucometer 146 12/06/18 15:21: Glucometer 267 12/06/18 20:38: Glucometer 122 12/07/18 05:11: Glucometer 130 12/07/18 11:18: Glucometer 227 12/07/18 16:33: Glucometer 143 12/07/18 21:11: Glucometer 238 12/08/18 05:51: Glucometer 127 12/08/18 06:25: White Blood Count 5.7, Red Blood Count 3.54, Hemoglobin 9.9, Hematocrit 33, Mean Corpuscular Volume 92, Mean Corpuscular Hemoglobin 28, Mean Corpuscular Hemoglobin Concent 31, Red Cell Distribution Width 16.1, Platelet Count 250, Mean Platelet Volume 9.6, Neutrophils (%) (Auto) 51, Lymphocytes (%) (Auto) 34, Monocytes (%) (Auto) 12, Eosinophils (%) (Auto) 2, Basophils (%) (Auto) 1, Neutrophils # (Auto) 2.9, Lymphocytes # (Auto) 1.9, Monocytes # (Auto) 0.7, Eosinophils # (Auto) 0.1, Basophils # (Auto) 0.1, Sodium Level 142, Potassium Level 3.5, Chloride Level 103, Carbon Dioxide Level 26, Anion Gap 13, Blood Urea Nitrogen 12, Creatinine 0.84, Estimat Glomerular Filtration Rate > 60, BUN/Creatinine Ratio 14, Glucose Level 130, Calcium Level 8.6, Corrected Calcium 9.2, Total Bilirubin 0.3, Aspartate Amino Transf (AST/SGOT) 13, Alanine Aminotransferase (ALT/SGPT) 13, Alkaline Phosphatase 63, Total Protein 7.2, Albumin 3.2 12/08/18 11:14: Glucometer 221 12/08/18 15:44: Glucometer 147 12/08/18 20:18: Glucometer 169 12/09/18 05:15: Glucometer 125 12/09/18 10:57: Glucometer 177 12/09/18 15:19: Glucometer 194 12/09/18 20:27: Glucometer 168 12/10/18 05:34: Glucometer 142 12/10/18 10:58: Glucometer 150 12/10/18 15:41: Glucometer 214 12/10/18 20:05: Glucometer 147 12/11/18 05:07: Glucometer 114 12/11/18 11:15: Glucometer 232 12/11/18 16:17: Glucometer 109 12/11/18 20:13: Glucometer 192 12/12/18 04:48: Glucometer 130 12/12/18 06:42: White Blood Count 5.1, Red Blood Count 3.68, Hemoglobin 10.3, Hematocrit 34, Mean Corpuscular Volume 92, Mean Corpuscular Hemoglobin 28, Mean Corpuscular Hemoglobin Concent 31, Red Cell Distribution Width 16.1, Platelet Count 201, Mean Platelet Volume 10.3, Neutrophils (%) (Auto) 54, Lymphocytes (%) (Auto) 28, Monocytes (%) (Auto) 14, Eosinophils (%) (Auto) 3, Basophils (%) (Auto) 1, Neutrophils # (Auto) 2.8, Lymphocytes # (Auto) 1.5, Monocytes # (Auto) 0.7, Eosinophils # (Auto) 0.2, Basophils # (Auto) 0.0, Sodium Level 141, Potassium Level 3.5, Chloride Level 101, Carbon Dioxide Level 30, Anion Gap 10, Blood Urea Nitrogen 11, Creatinine 0.85, Estimat Glomerular Filtration Rate > 60, BUN/Creatinine Ratio 13, Glucose Level 130, Calcium Level 8.8, Corrected Calcium 9.4, Total Bilirubin 0.4, Aspartate Amino Transf (AST/SGOT) 18, Alanine Aminotransferase (ALT/SGPT) 15, Alkaline Phosphatase 68, Total Protein 7.3, Albumin 3.3 12/12/18 10:52: Glucometer 201 12/12/18 15:47: Glucometer 135 12/12/18 21:00: Glucometer 241 12/13/18 05:32: Glucometer 139 12/13/18 10:59: Glucometer 184 12/13/18 15:23: Glucometer 211 12/13/18 18:32: Glucometer 190 12/13/18 20:37: Glucometer 164 12/14/18 05:30: Glucometer 135 12/14/18 10:59: Glucometer 224 12/14/18 15:59: Glucometer 243 12/14/18 20:31: Glucometer 164 12/15/18 06:27: Glucometer 138 12/15/18 11:04: Glucometer 310 12/15/18 15:34: Glucometer 115 12/15/18 21:45: Glucometer 227 12/16/18 05:22: Glucometer 137 12/16/18 06:40: White Blood Count 6.3, Red Blood Count 3.76, Hemoglobin 10.3, Hematocrit 34, Mean Corpuscular Volume 91, Mean Corpuscular Hemoglobin 27, Mean Corpuscular Hemoglobin Concent 30, Red Cell Distribution Width 16.2, Platelet Count 216, Mean Platelet Volume 9.6, Neutrophils (%) (Auto) 51, Lymphocytes (%) (Auto) 24, Monocytes (%) (Auto) 20, Eosinophils (%) (Auto) 4, Basophils (%) (Auto) 1, Neutrophils # (Auto) 3.2, Lymphocytes # (Auto) 1.5, Monocytes # (Auto) 1.3, Eosinophils # (Auto) 0.3, Basophils # (Auto) 0.0, Neutrophils % (Manual) 50, Lymphocytes % (Manual) 21, Monocytes % (Manual) 21, Eosinophils % (Manual) 4, Basophils % (Manual) 1, Band Neutrophils 3, Polychromasia SLIGHT, Anisocytosis SLIGHT, Sodium Level 140, Potassium Level 3.8, Chloride Level 101, Carbon Dioxide Level 29, Anion Gap 10, Blood Urea Nitrogen 8, Creatinine 0.88, Estimat Glomerular Filtration Rate > 60, BUN/Creatinine Ratio 9, Glucose Level 128, Calcium Level 8.9, Corrected Calcium 9.5, Total Bilirubin 0.5, Aspartate Amino Transf (AST/SGOT) 14, Alanine Aminotransferase (ALT/SGPT) 13, Alkaline Phosphat ase 75, Total Protein 7.3, Albumin 3.2 12/16/18 11:00: Glucometer 189 12/16/18 15:37: Glucometer 157 12/16/18 20:18: Glucometer 210 12/17/18 05:32: Glucometer 162 12/17/18 11:26: Glucometer 208 12/17/18 15:38: Glucometer 157 12/17/18 20:31: Glucometer 245 12/18/18 05:27: Glucometer 124 12/18/18 11:42: Glucometer 160 12/18/18 16:30: Glucometer 216 12/18/18 20:45: Glucometer 180 12/19/18 05:30: White Blood Count 7.1, Red Blood Count 3.58, Hemoglobin 9.9, Hematocrit 33, Mean Corpuscular Volume 91, Mean Corpuscular Hemoglobin 28, Mean Corpuscular Hemoglobin Concent 30, Red Cell Distribution Width 15.9, Platelet Count 248, Mean Platelet Volume 9.6, Neutrophils (%) (Auto) 55, Lymphocytes (%) (Auto) 24, Monocytes (%) (Auto) 16, Eosinophils (%) (Auto) 5, Basophils (%) (Auto) 1, Neutrophils # (Auto) 3.9, Lymphocytes # (Auto) 1.7, Monocytes # (Auto) 1.1, Eosinophils # (Auto) 0.3, Basophils # (Auto) 0.1, Sodium Level 140, Potassium Level 3.6, Chloride Level 101, Carbon Dioxide Level 27, Anion Gap 12, Blood Urea Nitrogen 9, Creatinine 0.87, Estimat Glomerular Filtration Rate > 60, BUN/Creatinine Ratio 10, Glucose Level 138, Calcium Level 9.2, Corrected Calcium 9.8, Total Bilirubin 0.3, Aspartate Amino Transf (AST/SGOT) 18, Alanine Aminotransferase (ALT/SGPT) 10, Alkaline Phosphatase 72, Total Protein 7.3, Albumin 3.2 12/19/18 05:36: Glucometer 150 12/19/18 10:52: Glucometer 226 12/19/18 15:55: Glucometer 131 12/19/18 20:12: Glucometer 220 12/20/18 05:39: Glucometer 114 12/20/18 11:35: Glucometer 106 12/20/18 17:01: Glucometer 126 12/20/18 21:22: Glucometer 153 12/21/18 05:49: Glucometer 125 12/21/18 10:51: Glucometer 140 12/21/18 15:29: Glucometer 153 12/21/18 20:44: Glucometer 183 12/22/18 05:46: Glucometer 115 12/22/18 11:06: Glucometer 142 12/22/18 15:26: Glucometer 137 12/22/18 20:29: Glucometer 165 12/23/18 05:17: Glucometer 142 12/23/18 11:11: Glucometer 180 12/23/18 15:27: Glucometer 175 12/23/18 20:11: Glucometer 165 12/24/18 05:37: Glucometer 142 Discharge Home Medications: Active Scripts Active Advocate Pen Needle (Pen Needle, Diabetic) 1 Each Dis.needle Each MC BID Levemir Flextouch (Insulin Detemir) 100 Unit/1 Ml Insuln.pen 12 Unit SQ BID Famotidine 20 Mg Tablet 20 Mg PO BID Furosemide 20 Mg Tablet 20 Mg PO DAILY Klor-Con 10 (Potassium Chloride) 10 Meq Tablet.er 10 Meq PO BID Fluoxetine HCl 20 Mg Capsule 20 Mg PO DAILY Tramadol HCl 50 Mg Tablet 50 Mg PO TID PRN Voltaren (Diclofenac Sodium) 100 Gm Gel..gram. 0 Gm TOP TID PRN Metoprolol Tartrate 25 Mg Tablet 25 Mg PO TID Nicotine Patch (Nicotine) 1 Each Patch.td24 21 Mg TD DAILY@0900 Advair Hfa 115-21 Mcg Inhaler (Fluticasone/Salmeterol) 12 Gm Hfa.aer.ad 0 Puff IH BID@08,20 Reported Atorvastatin Calcium 40 Mg Tablet 40 Mg PO DAILY Vitamin D3 (Cholecalciferol (Vitamin D3)) 5,000 Unit Capsule 5,000 Unit PO DAILY Fish Oil 1,000 mg Capsule ([place] 3 Polyunsat Fatty Acids) 1,000 Mg Cap 1,000 Mg PO DAILY Januvia (Sitagliptin Phosphate) 100 Mg Tablet 100 Mg PO DAILY Magnesium Oxide 400 Mg Tablet 400 Mg PO DAILY Duloxetine HCl 60 Mg Capsule.dr 60 Mg PO DAILY Combivent Respimat Inhal [place] (Albuterol/Ipratropium) 4 Gm Aero 2 Puff IH Q4H PRN Amlodipine Besylate 10 Mg Tablet 10 Mg PO DAILY Lisinopril 20 Mg Tablet 20 Mg PO DAILY Instructions to patient/family Please see electronic discharge instructions given to patient. Diagnosis/Problems Diagnosis/Problems (1) Myopathy (2) COPD (chronic obstructive pulmonary disease) Status: Chronic Qualifiers: Qualified Codes: J44.9 - Chronic obstructive pulmonary disease, unspecified (3) Hypokalemia Status: Acute (4) Diabetes mellitus, type 2 Status: Chronic Qualifiers: Qualified Codes: E11.69 - Type 2 diabetes mellitus with other specified complication; Z79.4 - superintendent terminal (current) use of insulin (5) Ventilator dependence Status: Resolved Resolution Date/Time: 11/25/18 @ 20:44 (6) Enterocutaneous fistula Status: Acute (7) Obesity hypoventilation syndrome Status: Chronic (8) On total parenteral nutrition (TPN) Status: Acute (9) BRAYAN treated with BiPAP Status: Chronic (10) Smoker Status: Chronic Clinical Quality Measures DVT/VTE Risk/Contraindication: Risk Factor Score Per Nursin RFS Level Per Nursing on Admit: 4+=Very High DANG CONRAD DO Dec 24, 2018 11:25
--- NOTE | 2018-12-26 09:31 | Therapy Team Discharge Summary ---
Therapy Discharge Summary Discharge Recommendations Date of Discharge Dec 24, 2018 at 10:48 Therapy D/C Recommendations: Physical Therapy Home Care Physical Therapy This patient was transferred to ARU post lengthy acute hospital stay due to COPD myopathy. Prior to her acute hospital stay, she was living alone at a a mod indep level and able to care for herself. Upon admission to ARU, she was max assit with transfers and gait and unable to attempt a stair. Treatment has consisted of functional strengthening and balance training to progress bed mobility, transfers and gait. At discharge, she was mod indep with gait and transfers; she has made good progress. She declined attempting stairs as she does not perform at home. Recommend [facility] PT to follow pt at home. DC from ARU at this time. Occupational Therapy Decreased Activ Tolerance, Impaired Self-Care Skills PT Group Home Goals Group Home Goals PT Counter Sales Representative Goals Time Frame: Dec 29, 2018 Transfers (B,C,W/C) (FIM): 6 (met) Roll Left to Right (QC): 6 Sit to Lying (QC): 6 Lying-Sitting on Side/Bed(QC): 6 Sit to Stand (QC): 6 Chair/Opj-ov-Mqfco Xfer(QC): 6 Car Transfer (QC): 6 Does the Patient Walk: Yes Gait (FIM): 6 (met) Gait distance (FIM): 3=150 ft Walk 10 feet (QC): 6 Walk 10ft-Uneven Surface(QC): 6 Walk 50ft with 2 Turns (QC): 6 Walk 150 ft (QC): 6 Gait Assistive Device: FWW Does the Pt use WC or Scooter?: No Stairs (FIM): 5 (unmet) # of Steps: 4 1 Step (curb) (QC): 6 4 Steps (QC): 6 12 Steps (QC): 9 Picking up an Object (QC): 9 goals met to an acceptable level. OT Group Home Goals Group Home Goals Time Frame: Dec 22, 2018 Eating (FIM): 6 (met-12/23/2018) Eating (QC): 6 (met-12/23/2018) Oral Hygiene (QC): 6 (met-12/23/2018) Grooming(FIM): 6 (met-12/23/2018) Bathing(FIM): 5 (met-12/23/2018) Shower/Bathe Self (QC): 4 (met-12/23/2018) Upper Body Dressing(FIM): 5 (12/23/2018) Upper Body Dressing (QC): 4 (12/23/2018) Lower Body Dressing(FIM): 5 (12/23/2018) Lower Body Dressing (QC): 4 (12/23/2018) On/Off Footwear (QC): 4 (12/23/2018) Toileting(FIM): 6 (12/23/2018) Toileting Hygiene (QC): 6 (met12/23/2018) Transfers (B,C,W/C) (FIM): 6 (12/23/2018) Toilet/Commode Transfer(FIM): 6 (12/23/2018) Toilet/Commode Transfer (QC): 6 (12/23/2018) Shower Transfer(FIM): 5 (12/23/2018) Additional Goals: 1-Demonstrate ADL Tasks, 2-Verbalize Understanding, 3-ImproveStrength/Juan F 1=Demonstrate adherence to instructed precautions during ADL tasks. 2=Patient will verbalize/demonstrate understanding of assistive devices/modifications for ADL. 3=Patient will improve strength/tolerance for activity to enable patient to perform ADL's. Speech Counter Sales Representative Goals Counter Sales Representative Goals The patient will maintain adequate nutrition/hydration via safe effective swallow function. Met CEDRIC ALCANTARA PT Dec 26, 2018 09:31
--- NOTE | 2018-12-26 12:32 | Therapy Team Discharge Summary ---
Therapy Discharge Summary Discharge Recommendations Date of Discharge Dec 24, 2018 at 10:48 Therapy D/C Recommendations: Physical Therapy Home Care Occupational Therapy Pt. was seen by occupational therapy to increase overall strength and independence. Pt. has met all OT goals. Pt. discharged home with family support. No further OT warranted at this time. Equipment needs met. Decreased Activ Tolerance PT Nursing Home Goals Precinct Captain Goals PT Precinct Captain Goals Time Frame: Dec 29, 2018 Transfers (B,C,W/C) (FIM): 6 (met) Roll Left to Right (QC): 6 Sit to Lying (QC): 6 Lying-Sitting on Side/Bed(QC): 6 Sit to Stand (QC): 6 Chair/Sbh-ah-Iqkqy Xfer(QC): 6 Car Transfer (QC): 6 Does the Patient Walk: Yes Gait (FIM): 6 (met) Gait distance (FIM): 3=150 ft Walk 10 feet (QC): 6 Walk 10ft-Uneven Surface(QC): 6 Walk 50ft with 2 Turns (QC): 6 Walk 150 ft (QC): 6 Gait Assistive Device: FWW Does the Pt use WC or Scooter?: No Stairs (FIM): 5 (unmet) # of Steps: 4 1 Step (curb) (QC): 6 4 Steps (QC): 6 12 Steps (QC): 9 Picking up an Object (QC): 9 OT Nursing Home Goals Precinct Captain Goals Time Frame: Dec 22, 2018 Eating (FIM): 6 (met-12/23/2018) Eating (QC): 6 (met-12/23/2018) Oral Hygiene (QC): 6 (met-12/23/2018) Grooming(FIM): 6 (met-12/23/2018) Bathing(FIM): 5 (met-12/23/2018) Shower/Bathe Self (QC): 4 (met-12/23/2018) Upper Body Dressing(FIM): 5 (met-12/23/2018) Upper Body Dressing (QC): 4 (met-12/23/2018) Lower Body Dressing(FIM): 5 (met-12/23/2018) Lower Body Dressing (QC): 4 (met-12/23/2018) On/Off Footwear (QC): 4 (met-12/23/2018) Toileting(FIM): 6 (met-12/23/2018) Toileting Hygiene (QC): 6 ([facility]-12/23/2018) Transfers (B,C,W/C) (FIM): 6 ([facility]-12/23/2018) Toilet/Commode Transfer(FIM): 6 ([facility]-12/23/2018) Toilet/Commode Transfer (QC): 6 ([facility]-12/23/2018) Shower Transfer(FIM): 5 ([facility]-12/23/2018) Additional Goals: 1-Demonstrate ADL Tasks, 2-Verbalize Understanding, 3- ImproveStrength/Juan F 1=Demonstrate adherence to instructed precautions during ADL tasks. 2=Patient will verbalize/demonstrate understanding of assistive sharonda tiana/modifications for ADL. 3=Patient will improve strength/tolerance for activity to enable patient to perform ADL's. Speech Precinct Captain Goals Precinct Captain Goals The patient will maintain adequate nutrition/hydration via safe effective swallow function. CHARLENE Olvera OT Dec 26, 2018 12:32
--- NOTE | 2018-12-26 18:15 | Progress Note ---
Subjective Date Seen by a Provider: Dec 23, 2018 Time Seen by a Provider: 10:00 Subjective/Events-last exam patient seen on 12/23/18. doing well. minimal fistula output with good g ranulation tissue and no necrosis/redness/erythema. tolerating low residue diet and having BM's. no fever/chills. Objective Exam Capillary Refill : Less Than 3 Seconds General Appearance: No Apparent Distress HEENT: PERRL/EOMI Neck: Full Range of Motion Respiratory: Decreased Breath Sounds Cardiovascular: Regular Rate, Rhythm Gastrointestinal: normal bowel sounds, non tender, soft Extremity: Normal Capillary Refill Neurologic/Psychiatric: Alert, Oriented x3 Skin: Normal Color Lymphatic: No Adenopathy Assessment/Plan Assessment/Plan Assess & Plan/Chief Complaint s/p recurrent inc hernia repair with exacerbation COPD, exacerbation CHF, hypergylemia and developement enterocutaneous fistula. cont current care. wet to dry BID to allow for granulation tissue and eventual closure. will hold off abx for now. if superficial/subcutaneous infection develops will start PO abx. continue plan for IRU for eventual independence. home sunday 12/24 with instructions for wound care. f/u in office in 1 week. Clinical Quality Measures DVT/VTE Risk/Contraindication: Risk Factor Score Per Nursin RFS Level Per Nursing on Admit: 4+=Very High WENDI ELIZABETH MD Dec 26, 2018 18:15
== END 2018-12-24 10:48 | disposition home health service (06) | DRG 91 ==
PROVIDERS: ADMIT Internal Medicine; ATTEND Internal Medicine
DX: G72.89 Other specified myopathies (principal); K63.2 Fistula of intestine; J43.9 Emphysema, unspecified; I21.4 Non-ST elevation (NSTEMI) myocardial infarction; E66.2 Morbid (severe) obesity with alveolar hypoventilation; Z68.42 Body mass index [BMI] 45.0-49.9, adult; I12.9 Hypertensive chronic kidney disease with stage 1 through stage 4 chronic kidney disease, or unspecified chronic kidney disease; N18.3 Chronic kidney disease, stage 3 (moderate); E11.40 Type 2 diabetes mellitus with diabetic neuropathy, unspecified; F17.210 Nicotine dependence, cigarettes, uncomplicated; M79.7 Fibromyalgia; M54.9 Dorsalgia, unspecified; F32.9 Major depressive disorder, single episode, unspecified; E78.00 Pure hypercholesterolemia, unspecified; R53.1 Weakness; R53.81 Other malaise; E87.6 Hypokalemia; S30.1XXA Contusion of abdominal wall, initial encounter; T45.515A Adverse effect of anticoagulants, initial encounter; Z98.1 Arthrodesis status; Z99.81 Dependence on supplemental oxygen; Z79.4 Long term (current) use of insulin
CPT/HCPCS: 36415; 80053; 82962; 85007; 85025; 85027; 93005; 94640; 94760

== ENCOUNTER 2018-12-26 06:51 | Emergency (ER) | payer MEDICAID ==
[~2018-12-26] VITALS: Ht 160 cm; Wt 124.0 kg
[~2018-12-26 06:51] MED LIST changes: +DICL100G18 TOP; +FAMO20TA5 PO; +FLUO20CA25 PO; +FURO20TA4 PO; +INSU100I29 SQ; +METO-333 PO; +NICO-588 TD; +PEN-53 MC; +POTA10TA6 PO; +TRAM50TA2 PO
--- NOTE | 2018-12-26 07:13 | ED Integumentary General ---
General Chief Complaint: Skin/Wound Problems Stated Complaint: WOUND CONCERN Nursing Triage Note: wound drainage worse since wednesday Source: patient History of Present Illness Date Seen by Provider: Dec 26, 2018 Time Seen by Provider: 07:00 Initial Comments PT ARRIVES VIA EMS FROM HOME PT HAD VENTRAL HERNIA SURGERY 11/17/[address] ELIZABETH WAS RE-ADMITTED 11/19 FOR COPD/RESPIRATORY FAILURE--REQUIRING INTUBATION, HAD MULTI-SYSTEM FAILURE AND WAS EVENTUALLY DISMISSED 12/24/18 STATES SHE HAS ALWAYS HAD DRAINAGE FROM THE WOUND, AND HAD A WOUND VAC IN PLACE WHILE SHE WAS IN THE HOSPITAL, BUT IT WAS REMOVED BEFORE SHE WAS DISMISSED FROM THE HOSPITAL STATES THE DRAINAGE HAS BEEN "MORE" SINCE SHE GOT HOME ON WEDNESDAY, AND THIS AM WHEN SHE GOT UP THE DRESSING WAS SOAKED AND IT FELL OFF, SO SHE CALLED EMS. DID NOT ATTEMPT TO PLACE A NEW DRESSING ON THE WOUND. STATES SHE IS NOT ON ANTIBIOTICS STATES THE DRAINAGE IS "NORMAL COLOR--GREEN, YELLOW PUS" NO INCREASED PAIN TO THE AREA NO FEVER NO NAUSEA/VOMITING--HAS BEEN EATING AND DRINKING FINE NO PROBLEMS URINATING HAS AN APPOINTMENT WITH DR. LINCOLN THIS AM AT 1015 AT [facility], BUT STATES "I CAN'T GO BECAUSE I DON'T HAVE A WAY TO GET THERE" ALSO STATES "AND I WOULD LIKE DR. ELIZABETH TO COME SEE ME HERE IN THE ER TOO, BECAUSE I WON'T HAVE A WAY TO GET TO SEE HIM EITHER" --DOES NOT HAVE A FOLLOW UP APPOINTMENT WITH DR. ELIZABETH UNTIL NEXT WEEK. PCP: DR. LINCOLN SURGEON: DR. ELIZABETH Allergies and Home Medications Allergies Coded Allergies: No Known Drug Allergies (Unverified , 11/16/18) Home Medications Albuterol/Ipratropium 4 Gm Aero, 2 PUFF IH Q4H PRN for SHORTNESS OF BREATH, (Reported) Amlodipine Besylate 10 Mg Tablet, 10 MG PO DAILY, (Reported) Atorvastatin Calcium 40 Mg Tablet, 40 MG PO DAILY, (Reported) Cholecalciferol (Vitamin D3) 5,000 Unit Capsule, 5,000 UNIT PO DAILY, (Reported) Ciprofloxacin HCl 500 Mg Tablet, 500 MG PO BID Prescribed by: JERE AMIN on 12/26/18 0838 Diclofenac Sodium 100 Gm Gel..gram., 0 GM TOP TID PRN for PAIN-MILD Prescribed by: ALEIDA LICEA on 9/12/19 0837 Duloxetine HCl 60 Mg Capsule.dr, 60 MG PO DAILY, (Reported) Famotidine 20 Mg Tablet, 20 MG PO BID Prescribed by: ALEIDA LICEA on 12/22/18836 Fluoxetine HCl 20 Mg Capsule, 20 MG PO DAILY Prescribed by: ALEIDA LICEA on 12/22/18836 Fluticasone/Salmeterol 12 Gm Hfa.aer.ad, 0 PUFF IH BID@, Prescribed by: ALEIDA LICEA on 12/16/16 1020 Furosemide 20 Mg Tablet, 20 MG PO DAILY Prescribed by: ALEIDA LICEA on 12/22/18836 Insulin Detemir 100 Unit/1 Ml Insuln.pen, 12 UNIT SQ BID Prescribed by: ALEIDA LICEA on 12/22/18836 Lisinopril 20 Mg Tablet, 20 MG PO DAILY, (Reported) Magnesium Oxide 400 Mg Tablet, 400 MG PO DAILY, (Reported) Metoprolol Tartrate 25 Mg Tablet, 25 MG PO TID Prescribed by: ALEIDA LICEA on 12/22/18836 Metronidazole 500 Mg Tablet, 500 MG PO QID Prescribed by: JERE AMIN on 12/26/18837 Nicotine 1 Each Patch.td24, 21 MG TD DAILY@0900 Prescribed by: ALEIDA LICEA on 12/22/18836 [place] 3 Polyunsat Fatty Acids 1,000 Mg Cap, 1,000 MG PO DAILY, (Reported) Potassium Chloride 10 Meq Tablet.er, 10 MEQ PO BID Prescribed by: ALEIDA LICEA on 12/22/18836 Sitagliptin Phosphate 100 Mg Tablet, 100 MG PO DAILY, (Reported) Tramadol HCl 50 Mg Tablet, 50 MG PO TID PRN for PAIN-MODERATE Prescribed by: ALEIDA LICEA on 12/22/18836 Patient Home Medication List Home Medication List Reviewed: Yes Review of Systems Review of Systems Constitutional: no symptoms reported; No fever Respiratory: no symptoms reported Cardiovascular: no symptoms reported Gastrointestinal: see HPI Genitourinary: no symptoms reported Musculoskeletal: no symptoms reported Skin: see HPI Psychiatric/Neurological: No Symptoms Reported Past Vqjaywv-Ytepft-Yoydld Hx Patient Social History Alcohol Use: Denies Use Recreational Drug Use: Yes (THC) Drug of Choice: cannibus Smoking Status: Former Smoker (1 PPD X 45 YEARS, QUIT 11/17/18) Type Used: Cigarettes Former Smoker, Quit: Nov 17, 2018 2nd Hand Smoke Exposure: Yes Recent Foreign Travel: No Contact w/Someone Who Travel: No Recent Infectious Disease Expo: No Recent Hopitalizations: Yes Physical Abuse: No Sexual Abuse: No Mistreated: No Fear: No Immunizations Up To Date Tetanus Booster (TDap): More than 5yrs Date of Pneumonia Vaccine: Apr 12, 2013 Date of Influenza Vaccine: Jan 17, 2018 Seasonal Allergies Seasonal Allergies: No Past Medical History Surgeries: Yes (COLON RESECTION 2009 FOR DIVERTICULITIS; COLONOSCOPIES; C- SECION X2; BILAT CARPAL TUNNEL RELEASE; C-SPINE FUSION; HYST B/SO 2005; BILATERAL CATARACTS; VENTRAL HERNIA REPAIRS X 3--LAST ONE 11/17/[address] 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 CHRONIC NECK PAIN--S/P C-SPINE FUSION. USES A WALKER FOR AMBULATION) Degenerate Disk Disease, Arthritis, Fibromyalgia, Chronic Back Pain Endocrine: Yes (MORBID OBESITY) Diabetes, Non-Insulin dep HEENT: No (GLASSES, DENTURES) Loss of Vision: Denies Hearing Impairment: Hard of Hearing Cancer: No Psychosocial: Yes Depression Integumentary: No Blood Disorders: No Adverse Reaction/Blood Tranf: No (N/A) Family Medical History Arthritis 19 FATHER Cardiovascular disease 19 FATHER Completed stroke 19 MOTHER Diabetes mellitus 19 FATHER Hypertension 19 FATHER G8 SISTER Myocardial infarction 19 FATHER Respiratory disorder 19 MOTHER No Pertinent Family Hx Physical Exam Vital Signs Vital Signs - First Documented 12/26/18 06:52 Temp 37.1 Pulse 102 Resp 18 B/P (MAP) 138/74 (95) Pulse Ox 97 O2 Delivery Nasal Cannula O2 Flow Rate 3.00 Capillary Refill : Less Than 3 Seconds General Appearance: no apparent distress, obese, other (DOES NOT APPEAR ACUTELY ILL OR TO BE IN ANY DISCOMFORT OR DISTRESS) Cardiovascular: regular rate, rhythm, no murmur Respiratory: normal breath sounds, no respiratory distress Gastrointestinal: other (LARGE DRAINING WOUND TO MID ABDOMEN--PURULENT DRAINAGE. MILD AMOUNT OF SURROUNDING ERYTHEMA AND INDURATION. NO AREAS OF OBVIOUS FLUCTUANCE. ) Extremities: normal capillary refill Neurologic/Psychiatric: high rigger II-XII nml as tested, no motor/sensory deficits, alert, normal mood/affect, oriented x 3 Skin: normal color, warm/dry, other ( ABOVE) Procedures/Interventions Date of ETT Placement: Nov 20, 2018 Time of ETT Placement: 1505 Progress/Results/Core Measures Results/Orders Lab Results Laboratory Tests Test 12/26/18 07:24 Range/Units White Blood Count 7.5 4.3-11.0 10^3/uL Red Blood Count 3.86 L 4.35-5.85 10^6/uL Hemoglobin 10.7 L 11.5-16.0 G/DL Hematocrit 35 35-52 % Mean Corpuscular Volume 91 80-99 FL Mean Corpuscular Hemoglobin 28 25-34 PG Mean Corpuscular Hemoglobin Concent 31 L 32-36 G/DL Red Cell Distribution Width 16.4 H 10.0-14.5 % Platelet Count 326 130-400 10^3/uL Mean Platelet Volume 8.9 7.4-10.4 FL Neutrophils (%) (Auto) 59 42-75 % Lymphocytes (%) (Auto) 27 12-44 % Monocytes (%) (Auto) 11 0-12 % Eosinophils (%) (Auto) 2 0-10 % Basophils (%) (Auto) 0 0-10 % Neutrophils # (Auto) 4.4 1.8-7.8 X 10^3 Lymphocytes # (Auto) 2.0 1.0-4.0 X 10^3 Monocytes # (Auto) 0.8 0.0-1.0 X 10^3 Eosinophils # (Auto) 0.2 0.0-0.3 10^3/uL Basophils # (Auto) 0.0 0.0-0.1 10^3/uL Sodium Level 143 135-145 MMOL/L Potassium Level 4.1 3.6-5.0 MMOL/L Chloride Level 104 98-107 MMOL/L Carbon Dioxide Level 26 21-32 MMOL/L Anion Gap 13 5-14 MMOL/L Blood Urea Nitrogen 17 7-18 MG/DL Creatinine 0.98 0.60-1.30 MG/DL Estimat Glomerular Filtration Rate 57 BUN/Creatinine Ratio 17 Glucose Level 162 H 70-105 MG/DL Calcium Level 9.4 8.5-10.1 MG/DL Corrected Calcium 9.9 8.5-10.1 MG/DL Total Bilirubin 0.3 0.1-1.0 MG/DL Aspartate Amino Transf (AST/SGOT) 34 5-34 U/L Alanine Aminotransferase (ALT/SGPT) 40 0-55 U/L Alkaline Phosphatase 69 40-136 U/L Total Protein 7.2 6.4-8.2 GM/DL Albumin 3.4 3.2-4.5 GM/DL My Orders Orders - JERE AMIN DO Ed Iv/Invasive Line Start (12/26/18 07:07) Cbc With Automated Diff (12/26/18 07:07) Comprehensive Metabolic Panel (12/26/18 07:07) Wound Culture (12/26/18 07:07) Piperacillin Sodium/Tazobactam (Zosyn Vi (12/26/18 07:15) Ct Abdomen/Pelvis Wo (12/26/18 07:22) Chest 1 View, Ap/Pa Only (12/26/18 07:22) Wound Dressing-Ed (12/26/18 08:39) Medications Given in ED Current Medications Medications Dose Ordered Sig/Gracie Route Start Time Stop Time Status Last Admin Dose Admin Piperacillin Sod/ Tazobactam Sod 4.5 gm/Sodium Chloride 100 ml @ 200 mls/hr ONCE ONCE IV 12/26/18 07:15 12/26/18 07:44 DC 12/26/18 08:08 200 MLS/HR Vital Signs/I&O 12/26/18 06:52 Temp 37.1 Pulse 102 Resp 18 B/P (MAP) 138/74 (95) Pulse Ox 97 O2 Delivery Nasal Cannula O2 Flow Rate 3.00 Blood Pressure Mean: 95 Progress Progress Note : Progress Note CULTURE OBTAINED FROM WOUND. WOUND CLEANSED AND RE-DRESSED. UNEVENTFUL ER STAY PT HAD NO COMPLAINTS Diagnostic Imaging Comments CXR--NO ACUTE PROCESS CT ABDOMEN/PELVIS--PARAUMBILICAL HERNIA CONTAINING PARTIAL LOOP OF TRANSVERSE COLON WITH SURROUNDING INFLAMMATION, NO EVIDENCE OF BOWEL OBSTRUCTION . NO FOCAL FLUID COLLECTION OR ABSCESS. PER RADIOLOGIST PER RADIOLOGIST REPORTS AT 0827 Reviewed: Reviewed by [place] Departure Communication (Admissions) 08--SPOKE WITH DR. ELIZABETH, HE ADVISES TO START ON CIPRO + FLAGYL X 14 DAYS, AND PT IS TO KEEP HER SCHEDULED FOLLOW UP APPOINTMENT Impression Primary Impression: POST OP WOUND INFECTION OF ABDOMEN Additional Impressions: NIDDM COPD (chronic obstructive pulmonary disease) Disposition: HOME, SELF-CARE Condition: Stable Departure-Patient Inst. Referrals: WENDI ELIZABETH MD,FELIZ TOBIN (PCP/Family) Primary Care Physician Patient Instructions: Cellulitis (Skin Infection), Adult (DC), How to Prevent Surgical Site Infections, Surgical Wound (DC), Wound Care (DC), Wound Infection Add. Discharge Instructions: CLEAN WOUND 2-3 TIMES A DAY WITH HIBICLENS AND WATER, APPLY FRESH DRESSING AFTER EACH CLEANING CONTINUE YOUR REGULAR MEDICATIONS PRESCRIBED KEEP YOUR SCHEDULED APPOINTMENTS WITH DR. LINCOLN AND DR. ELIZABETH All discharge instructions reviewed with patient and/or family. Voiced understanding. Scripts Metronidazole (Flagyl) 500 Mg Tablet 500 MG PO QID for FOR INFECTION, #60 TAB Prov: JERE AMIN DO 12/26/18 Ciprofloxacin HCl (Cipro) 500 Mg Tablet 500 MG PO BID, #30 TAB Prov: JERE AMIN DO 12/26/18 JERE AMIN DO Dec 26, 2018 07:13
[2018-12-26] MEDS ORDERED: PIPERACILLIN SODIUM/TAZOBACTAM 4.5 GM in NS (IVPB) 100 ML IV ONE (07:15)
[2018-12-26 07:29] LABS: BASOPHILS % (AUTO) 0 % (0-10); EOSINOPHILS # (AUTO) 0.2 10^3/uL (0.0-0.3); EOSINOPHILS % (AUTO) 2 % (0-10); HEMATOCRIT 35 % (35-52); HEMOGLOBIN 10.7 G/DL (11.5-16.0); LYMPHOCYTES % (AUTO) 27 % (12-44); MEAN CORPUSCULAR HEMOGLOBIN 28 PG (25-34); MEAN CORPUSCULAR HGB CONC 31 G/DL (32-36); MEAN CORPUSCULAR VOLUME 91 FL (80-99); MEAN PLATELET VOLUME 8.9 FL (7.4-10.4); MONOCYTES # (AUTO) 0.8 X 10^3 (0.0-1.0); MONOCYTES % (AUTO) 11 % (0-12); NEUTROPHILS # (AUTO) 4.4 X 10^3 (1.8-7.8); NEUTROPHILS % (AUTO) 59 % (42-75); PLATELET COUNT 326 10^3/uL (130-400); RED CELL DISTRIBUTION WIDTH 16.4 % (10.0-14.5); WHITE BLOOD COUNT 7.5 10^3/uL (4.3-11.0)
[2018-12-26 07:54] LABS: ALBUMIN 3.4 GM/DL (3.2-4.5); BILIRUBIN,TOTAL 0.3 MG/DL (0.1-1.0); CALCIUM 9.4 MG/DL (8.5-10.1); CREATININE SERUM 0.98 MG/DL (0.60-1.30); POTASSIUM 4.1 MMOL/L (3.6-5.0); TOTAL PROTEIN 7.2 GM/DL (6.4-8.2)
--- NOTE | 2018-12-26 08:08 | Diagnostic Imaging Report ---
PATIENT HISTORY: Wound in the abdomen. TECHNIQUE: Single frontal view of the chest COMPARISON: 11/30/2018 FINDINGS: The lung volumes are normal. No focal consolidation is seen. No large pleural effusion or pneumothorax is seen. The cardiomediastinal silhouette is enlarged, similar to the prior exam. No acute osseous abnormality is seen. IMPRESSION: 1. No acute pleuroparenchymal process. 2. Cardiomegaly. Dictated by: Dictated on workstation # [id number]
--- NOTE | 2018-12-26 08:26 | Diagnostic Imaging Report ---
PROCEDURE: CT abdomen and pelvis without contrast. TECHNIQUE: Multiple contiguous axial images were obtained through the abdomen and pelvis without the use of intravenous contrast. Auto Exposure Controls were utilized during the CT exam to meet ALARA standards for radiation dose reduction. INDICATION: Wound on the abdomen. COMPARISON: 11/24/2018. FINDINGS: The heart is unremarkable. The included lung bases are clear. There is herniation of a partial loop of transverse colon in the periumbilical region at the site of prior inflammatory change and fluid. There are surrounding inflammatory changes in this region without loculated collection. No evidence of bowel obstruction. No free fluid or free air is seen in the abdomen and pelvis. A calculus is again seen in the left renal pelvis measuring 2.0 cm with mild left-sided hydronephrosis. This is similar to the prior exam. Stable cortical cyst in the inferior pole of the left kidney measuring 5.2 cm. Nonobstructing calculi are seen bilaterally. No hydronephrosis is seen on the right. The liver, spleen, pancreas, and adrenal glands have a normal appearance. There is no pathologically enlarged mesenteric or retroperitoneal adenopathy. No acute fracture or dislocation in the included osseous structures. The bladder is decompressed. There is no free air, loculated collection, or adenopathy in the pelvis. IMPRESSION: 1. Paraumbilical hernia containing a partial loop of transverse colon with surrounding inflammation. No evidence of bowel obstruction. No focal fluid collection to suggest abscess. 2. Calculus in the left renal pelvis with mild left-sided hydronephrosis. This is similar to the prior exam. Dictated by: Dictated on workstation # [id number]
[2018-12-26] MEDS ORDERED: CIPR-225 PO (08:38)
[2018-12-26] MEDS ORDERED: METR500T PO (08:38)
[2018-12-26 09:21] VITALS: BP 115/69
== END 2018-12-26 09:28 | disposition home or self-care (01) ==
LOC: EDUNIT# 06:51 → ER 06:53
DX: T81.43XA Infection following a procedure, organ and space surgical site, initial encounter (principal); E11.40 Type 2 diabetes mellitus with diabetic neuropathy, unspecified; J43.9 Emphysema, unspecified; E66.01 Morbid (severe) obesity due to excess calories; G47.30 Sleep apnea, unspecified; I10 Essential (primary) hypertension; E78.00 Pure hypercholesterolemia, unspecified; M79.7 Fibromyalgia; F32.9 Major depressive disorder, single episode, unspecified; Z68.42 Body mass index [BMI] 45.0-49.9, adult; Z86.018 Personal history of other benign neoplasm; Z79.4 Long term (current) use of insulin; Z87.891 Personal history of nicotine dependence; Z98.1 Arthrodesis status; Z90.710 Acquired absence of both cervix and uterus; Z98.890 Other specified postprocedural states; Z90.89 Acquired absence of other organs; Z98.51 Tubal ligation status; Z99.81 Dependence on supplemental oxygen; Z87.442 Personal history of urinary calculi; Z87.19 Personal history of other diseases of the digestive system; Z82.49 Family history of ischemic heart disease and other diseases of the circulatory system
CPT/HCPCS: 36415; 71045; 74176; 80053; 85025; 87070; 87077; 87186; 87205; 96365

== ENCOUNTER 2019-01-04 17:20 | Inpatient (IN) | payer MEDICAID ==
[~2019-01-04] VITALS: Ht 160 cm; Wt 127.9 kg
[~2019-01-04 17:20] MED LIST changes: +CIPR-225 PO
--- NOTE | 2019-01-04 18:01 | NUR ---
DR ELIZABETH HERE
--- NOTE | 2019-01-04 18:05 | NUR ---
PT WANTS TO GO TO [facility]
[2019-01-04] MEDS ORDERED: PIPERACILLIN SODIUM/TAZOBACTAM 4.5 GM in NS (IVPB) 100 ML IV ONE (18:30)
--- NOTE | 2019-01-04 18:32 | CONSULTATION REPORT ---
DATE OF SERVICE: 01/04/2019 HISTORY OF PRESENT ILLNESS: The patient is a 63-year-old female, well known to us. We had initially seen her on 11/26/2018 for crampy abdominal pain and diarrhea. She had reported at this time that she had a history of diverticulitis and underwent a low anterior resection in 2009 by open technique. A CT scan was performed, which did show inflammatory changes around the colon at that time and she was found to have Clostridium difficile. Since that time, she has had 2 previous hernias from the midline laparotomy incision with the last one being done in 2011. She was found to have a symptomatic incisional hernia along the previous midline incision. The patient underwent an open ventral abdominal incisional hernia repair with mesh on 11/17/2018. She was found to have a recurrent ventral abdominal incisional hernia with the dimensions 6 x 4 cm in size with small bowel within the hernia sac. Due to the patient's body habitus, difficult ambulation and pulmonary history, she was admitted and found to have severe hyperglycemia and she also was struggling with ventilation due to her history of sleep apnea. She required endotracheal intubation as well as steroids and was transferred to the ICU. During this process, she also did develop exacerbation of CHF as well as possible myocardial infarction. 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 We proceeded with conservative therapy with n.p.o., bowel rest, IV hydration and TPN as well as IV antibiotics. Again, due to her multiple medical comorbidities as well as the fistula, she was eventually transferred to inpatient rehabilitation where a wound VAC was applied and the wound was healing with minimal output. She was eventually discharged home with home health; however, she has had ongoing issues with taking care of the wound again due to very poor ambulatory status as well as medical comorbidities. She presents today with redness and swelling around the fistula site; however, upon examination, there is no redness or erythema to indicate any abscess; however, she does have a significant yeast infection around the fistula site. She was also febrile. PAST MEDICAL HISTORY: Hypertension, hypercholesterolemia, history of Clostridium difficile, history of sigmoid diverticulitis, insulin-dependent diabetes, fibromyalgia, degenerative joint disease, COPD, emphysema, congestive heart failure, chronic kidney disease and sleep apnea. PAST SURGICAL HISTORY: Low anterior colorectal resection, bilateral cataract surgery, cervical spine ORIF, ventral abdominal incisional hernia repair x3, tonsillectomy, appendectomy, section x2, tubal ligation, and hysterectomy. ALLERGIES: No known drug allergies. MEDICATIONS: Januvia 100 mg daily, lisinopril 10 mg daily, atorvastatin 40 mg daily, bupropion XL 500 mg daily, amlodipine 10 mg daily, and duloxetine 60 mg daily. SOCIAL HISTORY: Positive smoke, 45 pack years. Negative alcohol. FAMILY HISTORY: Father had coronary artery disease, hypertension. Sister had myocardial infarction. Mother had history of stroke. Sister had hypertension. Vital signs - temperature is 38.3, blood pressure 127/86, pulse 108, respirations 18, and pulse ox 95% on 2 liters nasal cannula. REVIEW OF SYSTEMS: Well-nourished female, currently in no acute distress. She is not experiencing any shortness of breath or difficulty breathing. No chest pain, palpitations or diaphoresis. No nausea or vomiting, normal bowel movements. She does report that she has occasional intermittent episodes of a fistula output. However, she has had redness and soreness around the skin surrounding the fistula site in the past several days. She has also been having intermittent episodes of fevers. No recent inadvertent weight loss. PHYSICAL EXAMINATION: CHEST: Scattered rales and decreased breath sounds bilaterally. HEART: Regular, no murmurs. EXTREMITIES: Bilateral lower extremity edema +1/3, negative Homans sign. HEENT: No scleral icterus. NECK: No cervical lymphadenopathy. ABDOMEN: Soft, nondistended. There is epithelialization throughout the fistula; however, there does appear to be deep open tract. There is also redness. SKIN: Warm, dry. ASSESSMENT AND PLAN: A 63-year-old female with cellulitis of the abdominal wall, most likely due to combined bacterial and fungal infection. She also has having difficulty with ambulation and general debility. We will proceed with wound care as well as antifungal antibiotics. She will also most likely need evaluation for an extended care facility. Job ID: [id number] DocumentID: [id number] Dictated Date: 01/04/2019 18:18:25 Mantel Craftsman Date: 01/04/2019 18:32:03 Dictated By: WENDI ELIZABETH MD
[2019-01-04 18:34] LABS: BASOPHILS % (AUTO) 0 % (0-10); EOSINOPHILS # (AUTO) 0.2 10^3/uL (0.0-0.3); EOSINOPHILS % (AUTO) 2 % (0-10); HEMATOCRIT 38 % (35-52); HEMOGLOBIN 11.8 G/DL (11.5-16.0); LYMPHOCYTES # (AUTO) 3.2 X 10^3 (1.0-4.0); LYMPHOCYTES % (AUTO) 32 % (12-44); MEAN CORPUSCULAR HEMOGLOBIN 28 PG (25-34); MEAN CORPUSCULAR HGB CONC 31 G/DL (32-36); MEAN CORPUSCULAR VOLUME 90 FL (80-99); MEAN PLATELET VOLUME 9.8 FL (7.4-10.4); MONOCYTES # (AUTO) 1.2 X 10^3 (0.0-1.0); MONOCYTES % (AUTO) 12 % (0-12); NEUTROPHILS # (AUTO) 5.5 X 10^3 (1.8-7.8); NEUTROPHILS % (AUTO) 54 % (42-75); PLATELET COUNT 339 10^3/uL (130-400); RED CELL DISTRIBUTION WIDTH 16.8 % (10.0-14.5); WHITE BLOOD COUNT 10.1 10^3/uL (4.3-11.0)
[2019-01-04 18:41] LABS: PROTHROMBIN TIME PATIENT 13.5 SEC (12.2-14.7)
[2019-01-04] MEDS: NS IV 1000 ML 1,000 ML IV SCH ×3 (18:43→23:00)
[2019-01-04 18:48] LABS: ALANINE AMINOTRANSFERASE 30 U/L (0-55); ALBUMIN 3.7 GM/DL (3.2-4.5); ALKALINE PHOSPHATASE 68 U/L (40-136); BILIRUBIN,TOTAL 0.3 MG/DL (0.1-1.0); BUN/CREATININE RATIO 15; CALCIUM 9.2 MG/DL (8.5-10.1); CARBON DIOXIDE 24 MMOL/L (21-32); CHLORIDE 102 MMOL/L (98-107); CREATININE SERUM 0.89 MG/DL (0.60-1.30); GFR ESTIMATED > 60; GLUCOSE 131 MG/DL (70-105); POTASSIUM 4.6 MMOL/L (3.6-5.0); SODIUM 138 MMOL/L (135-145); TOTAL PROTEIN 7.8 GM/DL (6.4-8.2)
--- NOTE | 2019-01-04 18:53 | Diagnostic Imaging Report ---
INDICATION: Stomach injury, chest pain. COMPARISON: 12/26/2018. FINDINGS: Single view of the chest demonstrates clear lungs bilaterally. The heart is stable. There is no pneumothorax, effusion, or infiltrate. Osseous structures are age appropriate. There is no free air under the diaphragm. IMPRESSION: No acute cardiopulmonary findings. Dictated by: Dictated on workstation # [id number]
--- NOTE | 2019-01-04 19:03 | ED General ---
General Chief Complaint: Skin/Wound Problems Stated Complaint: WOUND IN STOMACH Nursing Triage Note: Pt to Rm 6 via walker with C/O abd wound issues. Pt had hernia repair x 4 weeks. Wound is reddened with yeast present upon examination. Nursing Sepsis Screen: Possible Sepsis Risk Source of Information: Patient Exam Limitations: No Limitations History of Present Illness Date Seen by Provider: Jan 04, 2019 Time Seen by Provider: 18:00 Initial Comments This 63-year-old woman presents to the emergency room with concerns about debility and worsening abdominal wound with abdominal wall fistula. Patient had a hernia repair on November 17. She developed respiratory failure after that and required ventilator support. She eventually returned home where she lives alone. In recent days she has not felt well and reports increasing discomfort, redness, and drainage around her fistula and surgical wound. Dr. Olvera has had her on Cipro, Flagyl, and Diflucan. Today she is febrile and tachycardic. Dr. Olvera and patient both agree that she should be admitted to the hospital and transition to skilled nursing care. She is not able to adequately care for herself at home, even with home health services. Allergies and Home Medications Allergies Coded Allergies: No Known Drug Allergies (Unverified , 11/16/18) Home Medications Albuterol/Ipratropium 4 Gm Aero, 2 PUFF IH Q4H PRN for SHORTNESS OF BREATH, (Reported) Amlodipine Besylate 10 Mg Tablet, 10 MG PO DAILY, (Reported) Atorvastatin Calcium 40 Mg Tablet, 40 MG PO DAILY, (Reported) Cholecalciferol (Vitamin D3) 5,000 Unit Capsule, 5,000 UNIT PO DAILY, (Reported) Ciprofloxacin HCl 500 Mg Tablet, 500 MG PO BID Prescribed by: JERE AMIN on 12/26/18 0838 Diclofenac Sodium 100 Gm Gel..gram., 0 GM TOP TID PRN for PAIN-MILD Prescribed by: ALEIDA LICEA on 12/22/18 0837 Duloxetine HCl 60 Mg Capsule.dr, 60 MG PO DAILY, (Reported) Famotidine 20 Mg Tablet, 20 MG PO BID Prescribed by: ALEIDA LICEA on 12/22/18 08 Fluoxetine HCl 20 Mg Capsule, 20 MG PO DAILY Prescribed by: ALEIDA LICEA on 12/22/18 0837 Fluticasone/Salmeterol 12 Gm Hfa.aer.ad, 0 PUFF IH BID@08,20 Prescribed by: ALEIDA LICEA on 12/16/16 1020 Furosemide 20 Mg Tablet, 20 MG PO DAILY Prescribed by: ALEIDA LICEA on 12/22/18 08 Insulin Detemir 100 Unit/1 Ml Insuln.pen, 12 UNIT SQ BID Prescribed by: ALEIDA LICEA on 12/22/18 08 Lisinopril 20 Mg Tablet, 20 MG PO DAILY, (Reported) Magnesium Oxide 400 Mg Tablet, 400 MG PO DAILY, (Reported) Metoprolol Tartrate 25 Mg Tablet, 25 MG PO TID Prescribed by: ALEIDA LICEA on 12/22/18836 Metronidazole 500 Mg Tablet, 500 MG PO QID Prescribed by: JERE AMIN on 12/26/18 0838 Nicotine 1 Each Patch.td24, 21 MG TD DAILY@0900 Prescribed by: ALEIDA LICEA on 12/22/18 08 [place] 3 Polyunsat Fatty Acids 1,000 Mg Cap, 1,000 MG PO DAILY, (Reported) Potassium Chloride 10 Meq Tablet.er, 10 MEQ PO BID Prescribed by: ALEIDA LICEA on 12/22/18836 Sitagliptin Phosphate 100 Mg Tablet, 100 MG PO DAILY, (Reported) Tramadol HCl 50 Mg Tablet, 50 MG PO TID PRN for PAIN-MODERATE Prescribed by: ALEIDA LICEA on 12/22/18 08 Patient Home Medication List Home Medication List Reviewed: Yes Review of Systems Review of Systems Constitutional: see HPI EENTM: no symptoms reported Respiratory: no symptoms reported Cardiovascular: no symptoms reported Past Utfxjro-Zjfiso-Bxqfyu Hx Past Med/Social Hx: Reviewed Nursing Past Med/Soc Hx Patient Social History Alcohol Use: Denies Use Recreational Drug Use: No Drug of Choice: cannibus- past Smoking Status: Former Smoker Type Used: Cigarettes Former Smoker, Quit: Nov 17, 2018 2nd Hand Smoke Exposure: Yes Recent Foreign Travel: No Contact w/Someone Who Travel: No Recent Infectious Disease Expo: No Recent Hopitalizations: Yes (discharged 12/24/18 - hernia repair ) Physical Abuse: No Sexual Abuse: No Mistreated: No Fear: No Immunizations Up To Date Tetanus Booster (TDap): More than 5yrs Date of Pneumonia Vaccine: Apr 12, 2013 Date of Influenza Vaccine: Jan 17, 2018 Seasonal Allergies Seasonal Allergies: No Past Medical History Surgeries: Yes Abdominal, Bowel Surgery, Section, Eye Surgery, Hysterectomy, Oophorectomy, Orthopedic, Tonsillectomy, Tubal Ligation Respiratory: Yes Sleep Apnea, COPD, Emphysema Currently Using CPAP: No Currently Using BIPAP: Yes Cardiac: Yes Coronary Artery Disease, High Cholesterol, Hypertension Neurological: Yes (chronic numbness rt proximal lateral thigh.) Neuropathy 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 Disorders: Yes (BENIGN OVARIAN TUMOR) Female 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 History: Hysterectomy, Tubal Ligation, Menopausal Sexually Transmitted Disease: No HIV/AIDS: No Genitourinary: Yes (STAGE 3 KIDNEY FAILURE) Kidney Stones, Renal Failure Gastrointestinal: Yes (Abdominal wall fistula) Abdominal Hernia, Chronic Constipation, Diverticulosis, C-Diff Musculoskeletal: Yes Degenerate Disk Disease, Arthritis, Fibromyalgia, Chronic Back Pain Endocrine: Yes (MORBID OBESITY) Diabetes, Non-Insulin dep HEENT: No (GLASSES, DENTURES) Loss of Vision: Denies Hearing Impairment: Hard of Hearing Cancer: No Psychosocial: Yes Depression Integumentary: No Blood Disorders: No Adverse Reaction/Blood Tranf: No (N/A) Family Medical History Reviewed Nursing Family Hx Arthritis 19 FATHER Cardiovascular disease 19 FATHER Completed stroke 19 MOTHER Diabetes mellitus 19 FATHER Hypertension 19 FATHER G8 SISTER Myocardial infarction 19 FATHER Respiratory disorder 19 MOTHER No Pertinent Family Hx Physical Exam-Suspected Sepsis Physical Exam Vital Signs Vital Signs - First Documented 01/04/19 17:27 Temp 38.3 Pulse 108 Resp 18 B/P (MAP) 127/86 (100) Pulse Ox 95 O2 Delivery Nasal Cannula O2 Flow Rate 2.00 Capillary Refill : Less Than 3 Seconds Blood Pressure Mean: 100 Height, Weight, BMI Height: 5'3.00" Weight: 273lbs. 2.0oz. 123.038810mm; 47.00 BMI Method:Stated General Appearance: No Apparent Distress, WD/WN, Obese HEENT: PERRL/EOMI, Normal ENT Inspection, Pharynx Normal Neck: Normal Inspection Respiratory: Lungs Clear, Normal Breath Sounds, No Accessory Muscle Use Cardiovascular: Regular Rate, Rhythm, No Edema, No Murmur Gastrointestinal: Normal Bowel Sounds, Soft, Other (Central abdominal wall fistula with localized erythema. 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 Norm as Tested Skin: normal color, warm/dry, other (See above) Focused Exam Lactate Level 01/04/19 17:49: Lactic Acid Level 1.83 Lactic Acid Level Procedures/Interventions Date of ETT Placement: Nov 20, 2018 Time of ETT Placement: 1505 Progress/Results/Core Measures Suspected Sepsis Recent Fever Within 48 Hours: Yes Infection Criteria Present: Suspected New Infection New/Unexplained Altered Menta: No Sepsis Screen: Possible Sepsis Risk SIRS Temperature: Pulse: 108 Respiratory Rate: 18 Laboratory Tests 01/04/19 17:49: White Blood Count 10.1 Blood Pressure 127 /86 Mean: 100 01/04/19 17:49: Lactic Acid Level 1.83 Laboratory Tests 01/04/19 17:49: Creatinine 0.89, INR Comment 1.0, Platelet Count 339, Total Bilirubin 0.3 Results/Orders Lab Results Laboratory Tests Test 01/04/19 17:49 01/04/19 21:38 Range/Units White Blood Count 10.1 4.3-11.0 10^3/uL Red Blood Count 4.24 L 4.35-5.85 10^6/uL Hemoglobin 11.8 11.5-16.0 G/DL Hematocrit 38 35-52 % Mean Corpuscular Volume 90 80-99 FL Mean Corpuscular Hemoglobin 28 25-34 PG Mean Corpuscular Hemoglobin Concent 31 L 32-36 G/DL Red Cell Distribution Width 16.8 H 10.0-14.5 % Platelet Count 339 130-400 10^3/uL Mean Platelet Volume 9.8 7.4-10.4 FL Neutrophils (%) (Auto) 54 42-75 % Lymphocytes (%) (Auto) 32 12-44 % Monocytes (%) (Auto) 12 0-12 % Eosinophils (%) (Auto) 2 0-10 % Basophils (%) (Auto) 0 0-10 % Neutrophils # (Auto) 5.5 1.8-7.8 X 10^3 Lymphocytes # (Auto) 3.2 1.0-4.0 X 10^3 Monocytes # (Auto) 1.2 H 0.0-1.0 X 10^3 Eosinophils # (Auto) 0.2 0.0-0.3 10^3/uL Basophils # (Auto) 0.0 0.0-0.1 10^3/uL Prothrombin Time 13.5 12.2-14.7 SEC INR Comment 1.0 0.8-1.4 Activated Partial Thromboplast Time 29 24-35 SEC Sodium Level 138 135-145 MMOL/L Potassium Level 4.6 3.6-5.0 MMOL/L Chloride Level 102 98-107 MMOL/L Carbon Dioxide Level 24 21-32 MMOL/L Anion Gap 12 5-14 MMOL/L Blood Urea Nitrogen 13 7-18 MG/DL Creatinine 0.89 0.60-1.30 MG/DL Estimat Glomerular Filtration Rate > 60 BUN/Creatinine Ratio 15 Glucose Level 131 H 70-105 MG/DL Lactic Acid Level 1.83 0.50-2.00 MMOL/L Calcium Level 9.2 8.5-10.1 MG/DL Corrected Calcium 9.4 8.5-10.1 MG/DL Total Bilirubin 0.3 0.1-1.0 MG/DL Aspartate Amino Transf (AST/SGOT) 37 H 5-34 U/L Alanine Aminotransferase (ALT/SGPT) 30 0-55 U/L Alkaline Phosphatase 68 40-136 U/L C-Reactive Protein High Sensitivity 3.62 H 0.00-0.50 MG/DL Total Protein 7.8 6.4-8.2 GM/DL Albumin 3.7 3.2-4.5 GM/DL Urine Color YELLOW Urine Clarity CLEAR Urine pH 6 5-9 Urine Specific [place] 1.015 L 1.016-1.022 Urine Protein 2+ H NEGATIVE Urine Glucose (UA) NEGATIVE NEGATIVE Urine Ketones NEGATIVE NEGATIVE Urine Nitrite NEGATIVE NEGATIVE Urine Bilirubin NEGATIVE NEGATIVE Urine Urobilinogen NORMAL NORMAL MG/DL Urine Leukocyte Esterase 1+ H NEGATIVE Urine RBC (Auto) 2+ H NEGATIVE Urine RBC 2-5 H /HPF Urine WBC 2-5 /HPF Urine Squamous Epithelial Cells 5-10 /HPF Urine Crystals NONE /LPF Urine Bacteria FEW H /HPF Urine Casts NONE /LPF Urine Mucus NEGATIVE /LPF Urine Culture Indicated YES Micro Results Microbiology 01/04/19 Influenza Types A,B Antigen (EMERY) - Final, Complete My Orders Orders - ERASTO LERNER MD Cbc With Automated Diff (01/04/19 18:26) Comprehensive Metabolic Panel (01/04/19 18:26) Blood Culture (01/04/19 18:26) Sputum Culture (01/04/19 18:26) Urinalysis (01/04/19 18:26) Urine Culture (01/04/19 18:26) Protime With Inr (01/04/19 18:26) Partial Thromboplastin Time (01/04/19 18:26) Chest 1 View, Ap/Pa Only (01/04/19 18:26) Ed Iv/Invasive Line Start (01/04/19 18:26) Ed Iv/Invasive Line Start (01/04/19 18:26) Vital Signs Adult Sepsis Patie Q15M (01/04/19 18:26) O2 (01/04/19 18:26) Remove Rings In Anticipation O (01/04/19 18:26) Lactic Acid Analyzer (01/04/19 18:26) Influenza A And B Antigens (01/04/19 18:26) Ns Iv 1000 Ml (Sodium Chloride 0.9%) (01/04/19 18:26) Hs C Reactive Protein (01/04/19 18:26) Piperacillin Sodium/Tazobactam (Zosyn Vi (01/04/19 18:30) Medications Given in ED Current Medications Medications Dose Ordered Sig/Gracie Route Start Time Stop Time Status Last Admin Dose Admin Piperacillin Sod/ Tazobactam Sod 4.5 gm/Sodium Chloride 100 ml @ 200 mls/hr ONCE ONCE IV 01/04/19 18:30 01/04/19 18:59 DC 01/04/19 18:50 200 MLS/HR Vital Signs/I&O 01/04/19 01/04/19 01/04/19 01/04/19 19:29 20:40 20:52 20:52 Temp 37.6 37.2 37.2 Pulse 98 93 93 Resp 18 20 20 B/P (MAP) 116/74 135/76 (95) 135/76 Pulse Ox 97 95 95 O2 Delivery Room Air Nasal Cannula Nasal Cannula Nasal Cannula O2 Flow Rate 3.00 3.00 3.00 01/04/19 01/05/19 01/05/19 01/05/19 22:00 00:00 02:33 03:21 Temp 36.8 36.8 Pulse 105 92 92 Resp 20 B/P (MAP) 128/67 (87) Pulse Ox 95 95 O2 Delivery Nasal Cannula Nasal Cannula O2 Flow Rate 3.00 3.00 Capillary Refill : Less Than 3 Seconds Blood Pressure Mean: 100 Progress Note : Progress Note Patient was thought to likely be septic. Influenza screen was negative. Blood cultures and lactic acid were drawn. Antibiotic therapy was started with Zosyn. Dr. Olvera was consulted and patient was admitted to Dr. Kline. Social work should be consulted to help arrange placement for this patient. Diagnostic Imaging Diagonstic Imaging: Xray Plain Films/CT/US/NM/MRI: chest Comments NAME: ASHLEY VENTURA [facility] REC#: [id number] PT STATUS: REG ER : 1955 PHYSICIAN: ERASTO LERNER MD ADMIT DATE: 01/04/19/ER Signed Date of Exam:01/04/19 CHEST 1 VIEW, AP/PA ONLY INDICATION: Stomach injury, chest pain. COMPARISON: 12/26/2018. FINDINGS: Single view of the chest demonstrates clear lungs bilaterally. The heart is stable. There is no pneumothorax, effusion, or infiltrate. Osseous structures are age appropriate. There is no free air under the diaphragm. IMPRESSION: No acute cardiopulmonary findings. Dictated by: Dictated on workstation # [id number] Dict: 01/04/19 [id number] Trans: 01/04/191853 [id number] Interpreted by: MADHU JUAREZ Electronically signed by: MADHU JUAREZ 01/04/194 Departure Communication (Admissions) Time/Spoke to Admitting Phy: 19:05 Raisa Time/Spoke to Consulting Phy: 18:05 May Impression Primary Impression: Sepsis Qualified Codes: A41.9 - Sepsis, unspecified organism Additional Impressions: Surgical wound present Abdominal wall fistula COPD (chronic obstructive pulmonary disease) Qualified Codes: J44.9 - Chronic obstructive pulmonary disease, unspecified Debility Candidiasis of skin Disposition: ADMITTED INPATIENT Condition: Improved Admissions Decision to Admit Reason: Admit from ER (General) Decision to Admit/Date: Jan 04, 2019 Time/Decision to Admit Time: 18:05 Departure-Patient Inst. Referrals: SELF,FELIZ TOBIN (PCP/Family) Primary Care Physician ERASTO LERNER MD Jan 04, 2019 19:03
--- NOTE | 2019-01-04 20:40 | NUR ---
LORENZOASHLEY Allison admitted to room 429-1, with an admitting diagnosis of SEPSIS, ABDOMINAL WOUND, on 01/04/19 from [place] via WHEELCHAIR, accompanied by STAFF AND FAMILY.ASHLEY VENTURA introduced to surroundings, call light, bed controls, phone, TV, temperature control, lights, meal times, smoking policy, visitor policy, side rail policy, bathrooms and showers. Patient Rights given to patient in the handbook. ASHLEY VENTURA verbalizes understanding that [facility] is not responsible for the loss or damage to any personal effects or valuables that are kept in the patients posession during their hospitalization.
[2019-01-04 20:52] VITALS: BP 135/76
[2019-01-04 21:47] LABS: BILIRUBIN,URINE NEGATIVE (NEGATIVE); CLARITY,URINE CLEAR; COLOR,URINE YELLOW; GLUCOSE, URINE (UA) NEGATIVE (NEGATIVE); KETONES,URINE NEGATIVE (NEGATIVE); LEUKOCYTE ESTERASE ,URINE 1+ (NEGATIVE); NITRITE,URINE NEGATIVE (NEGATIVE); PH,URINE 6 (5-9); PROTEIN,URINE 2+ (NEGATIVE); UROBILINOGEN,URINE NORMAL (NORMAL)
[2019-01-04 21:53] LABS: BACTERIA,URINE FEW /HPF
[2019-01-04] MEDS ORDERED: NS IV 1000 ML 1,000 ML ONE (23:21)
--- NOTE | 2019-01-04 23:40 | NUR ---
12 UNITS OF INSULIN LEVEMIR ADMINISTERED AT 2340 PER ORDER. PT BLOOD SUGAR 184 AT THIS TIME
[2019-01-05] VITALS (7 sets, daily range): BP systolic 120–176; BP diastolic 67–83
--- NOTE | 2019-01-05 00:30 | NUR ---
dressing on pts abd has some drainage showing, and request a dressing change. The pt states she has a home health nurse who performed the dressing change 01/04 in the morning. the hernia incision site is packed with gauze moistened by sterile water, dry 4 by 4 gauze over the site and abd pad. this nurse performed dressing change per pt.
[2019-01-05] MEDS ORDERED: FLUCONAZOLE 100 MG/50 ML IVPB IV SCH ×2 (00:45)
[2019-01-05] MEDS ORDERED: NS (IVPB) 100 ML ONE (01:16)
[2019-01-05] MEDS ORDERED: PIPERACILLIN/TAZO 4.5 GM VIAL (ZOSYN) IV ONE (01:16)
[2019-01-05] MEDS: PIPERACILLIN/TAZO 4.5 GM/NS 100 ML IV SCH ×6 (02:05→17:01)
[2019-01-05] MEDS ORDERED: RT-ALBUTEROL/IPRATROPIUM 3 ML (DUONEB) VIAL INH PRN (03:30)
[2019-01-05] MEDS: RT-ALBUTEROL/IPRATROPIUM 3 ML (DUONEB) VIAL INH SCH ×2 (07:38→19:25)
[2019-01-05] MEDS: FLUCONAZOLE 100 MG/50 ML IVPB IV SCH ×2 (07:44)
[2019-01-05] MEDS: ACETAMINOPHEN 500 MG TAB (TYLENOL) PO PRN (07:58)
[2019-01-05] MEDS: BETAMETHASONE/CLOTRIM CREAM (LOTRISONE) 45 GM TP SCH ×2 (07:59→21:34)
[2019-01-05] MEDS ORDERED: POTA10TA10 PO (08:55)
[2019-01-05] MEDS ORDERED: NICO-588 TD (08:55)
[2019-01-05] MEDS ORDERED: FURO20TA4 PO (08:55)
[2019-01-05] MEDS ORDERED: INSU100I29 SQ (08:55)
[2019-01-05] MEDS ORDERED: DICL100G31 TOP (08:55)
[2019-01-05] MEDS ORDERED: METO-333 PO (08:55)
[2019-01-05] MEDS ORDERED: FLUO20TA28 PO (08:55)
[2019-01-05] MEDS ORDERED: CIPR500T4 PO (08:55)
[2019-01-05] MEDS ORDERED: METR-145 PO (08:55)
[2019-01-05] MEDS ORDERED: FAMO20TA3 PO (08:55)
[2019-01-05] MEDS ORDERED: meTOprolol TARTRATE 25 MG (LOPRESSOR) TABLET PO SCH (09:00)
[2019-01-05] MEDS ORDERED: NICOTINE 21 MG (NICODERM) PATCH TD SCH ×2 (09:00→11:09)
[2019-01-05] MEDS ORDERED: FLUC150T2 PO (09:04)
[2019-01-05] MEDS ORDERED: NYST15CR TOP (09:04)
[2019-01-05] MEDS ORDERED: TRAM50TA2 PO (09:04)
--- NOTE | 2019-01-05 09:05 | NUR ---
SPOKE WITH THE PATIENT ABOUT HER MEDICATIONS. WE WENT OVER THE EXT MED HX WELL HER DISCHARGE INSTRUCTIONS FROM HER RECENT DISCHARGE FROM REHAB. SHE STATES SHE HAS FILLED THE TRAMADOL BUT IT IS NOT SHOWN ON THE EXT MED HX. SHE STATES IT WAS NOT COVERED BY HER INSURANCE SO SHE HAD TO PAY [employer]. I ENTERED IT IT WAS PRESCRIBED TID PRN HOWEVER SHE STATES SHE HAS BEEN TAKING 2 BID BECAUSE 1 DOES NOT HELP HER PAIN. SHE FILLED TWO STRENGTHS OF LISINOPRIL BUT STATES SHE HAS BEEN TAKING THE 20MG DAILY. SHE STATES SHE HAS NOT FILLED HER INHALERS RECENTLY, SHE CARRIES THE COMBIVENT RESPIMAT WITH HER PRN BUT SHE DOES NOT CURRENTLY HAVE ADVAIR. I REMOVED ADVAIR FROM HER MED REC AT THIS TIME.
[2019-01-05] MEDS: NS IV 1000 ML 1,000 ML IV SCH ×2 (09:26→21:34)
[2019-01-05] MEDS: LINEZOLID (ZYVOX) 600 MG TAB PO SCH ×2 (10:52→21:31)
[2019-01-05] MEDS ORDERED: RT-ALBUTEROL/IPRATROPIUM 3 ML (DUONEB) VIAL IH PRN ×2 (11:30→12:00)
--- NOTE | 2019-01-05 11:30 | Progress Note - Hospitalist ---
[facility] 01/05/19 1130: Subjective HPI/CC On Admission Date Seen by Provider: Jan 05, 2019 Time Seen by Provider: 11:00 Subjective/Events-last exam Vitals are normal and stable. Slept well. Left leg is still painful from radiculopathy. Eating and drinking well. Voiding and stooling. Ambulating with walker well. Overall is fine but doesn't feel like she hopes. Review of Systems General: No Chills, No Night Sweats, No Fatigue, No Malaise, No Appetite, No Other HEENT: No Head Aches, No Visual Changes, No Eye Pain, No Ear Pain, No Dysphasia, No Sinus Congestion, No Post Nasal Drip, No Sore Throat, No Other Pulmonary: No Dyspnea, No Cough, No Pleuritic Chest Pain, No Other Cardiovascular: No: Chest Pain, Palpitations, Orthopnea, Paroxysmal Noc. Dyspnea, Edema, Lt Headedness, Other Gastrointestinal: Abdominal Pain (near the abdominal surgical site. ), Other (itching and pain around the incision site. ); No: Nausea, Vomiting, Diarrhea, Constipation, Melena, Hematochezia Genitourinary: No Dysuria, No Frequency, No Incontinence, No Hematuria, No Retention, No Other Musculoskeletal: No: other, neck pain, shoulder pain, arm pain, back pain, hand pain, leg pain, foot pain Neurological: No: Weakness, Numbness, Incoordination, Change in speech, Confusion, Seizures, Other Focused Exam Lactate Level 01/04/19 17:49: Lactic Acid Level 1.83 Objective Exam Vital Signs Vital Signs Date Time Temp Pulse Resp B/P (MAP) Pulse Ox O2 Delivery O2 Flow Rate FiO2 01/05/19 08:00 36.9 98 18 131/71 (91) 93 Nasal Cannula 3.00 Capillary Refill : Less Than 3 Seconds General Appearance: No Apparent Distress, WD/WN HEENT: Normal ENT Inspection, Moist Mucous Membranes Neck: Non Tender, Supple Respiratory: Chest Non Tender, Lungs Clear, Normal Breath Sounds, No Accessory Muscle Use, No Respiratory Distress Cardiovascular: Regular Rate, Rhythm, No Edema, No Gallop, No JVD, No Murmur, Normal Peripheral Pulses Gastrointestinal: Normal Bowel Sounds, Non Tender, Soft Extremity: Normal Capillary Refill, Non Tender, No Pedal Edema Neurologic/Psychiatric: Alert, Oriented x3, No Motor/Sensory Deficits, Normal 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 Assessment/Plan Assessment and Plan Assess & Plan/Chief Complaint Assessment: 1. Sepsis and Incisional drainage 2. L Leg radiculopathy Plan: 1. Continue SCDs for left leg radiculopathy pain. 2. Monitor incisional site 3. Antibiotics 4. Continue ambulation 5. Continue CPAP at night Clinical Quality Measures DVT/VTE Risk/Contraindication: Risk Factor Score Per Nursin RFS Level Per Nursing on Admit: 4+=Very High DANG LICEA DO 01/05/19 1811: Supervisory-Addendum Brief Verification & Attestation Participated in pt care: history, MDM, physical Personally performed: exam, history, MDM, supervision of care Care discussed with: Medical Student Procedures: n/a Results interpretation: Verified all documentation Verification and Attestation of Medical Student E/M Service A medical student performed and documented this service in my presence. I reviewed and verified all information documented by the medical student and made modifications to such information, when appropriate. I personally performed the physical exam and medical decision making. Dang Licea, Jan 05, 2019,18:10 [facility] Jan 05, 2019 11:30 DANG LICEA DO Jan 05, 2019 18:11
[2019-01-05] MEDS: inSUlin ASPART (NovoLOG) 1 UNIT/0.01 ML (CHARGE PER UNIT) SC SCH ×3 (11:43→21:27)
[2019-01-05] MEDS: meTOprolol TARTRATE 25 MG (LOPRESSOR) TABLET PO SCH ×2 (12:49→21:31)
[2019-01-05] MEDS: MAGNESIUM OXIDE (MAG-OX)400 MG TAB PO SCH (12:49)
[2019-01-05] MEDS: DICLOFENAC 1% GEL 100 GM (VOLTAREN) TUBE TOP SCH ×4 (12:51→21:32)
[2019-01-05] MEDS: KCL 10 MEQ TAB (MICRO K) PO SCH (17:02)
--- NOTE | 2019-01-05 18:14 | History & Physical-Hospitalist ---
History of Present Illness HPI/Chief Complaint CC: Enterocutaneous Fistula Infection with Yeast HPI: this is a 63yoWF known to me from inpatient rehab admission for several weeks who presents after undergoing enterocutaneous fistula wound management but began seeing redness and unresolved with the antibiotics the ER gave her of Cipro Flagyl and Diflucan. Overall she has been feeling sicker and sicker so she went to the ER and found to have sepsis with abdominal wound complication.Dr. Olvera was consulted and pt was placed on empiric antibiotics including Zyvox due to VRE history and she will be restarted on all her home medication of Tramadol. Source: patient Exam Limitations: no limitations Date Seen 01/05/19 Time Seen by a Provider: 10:00 Attending Physician Ermias Kline MD PCP Self,Cassius TOBIN Referring Physician Date of Admission Jan 04, 2019 at 19:07 Home Medications & Allergies Home Medications Reviewed patient Home Medication Reconciliation performed by pharmacy medication reconciliations electronic test technician and/or nursing. Patients Allergies have been reviewed. Allergies Allergies Coded Allergies No Known Drug Allergies (Unverified11/16/18) Past Qpfoili-Mvqwox-Qlslyx Hx Past Med/Social Hx: Reviewed Nursing Past Med/Soc Hx, Reviewed and Corrections made Patient Social History Marrital Status: single Employed/Student: unemployed Alcohol Use: Denies Use Recreational Drug Use: No Drug of Choice: cannibus- past Smoking Status: Former Smoker Former Smoker, Quit: Nov 17, 2018 Type Used: Cigarettes 2nd Hand Smoke Exposure: Yes Recent Foreign Travel: No Contact w/other who traveled: No Recent Hopitalizations: Yes (discharged 12/24/18 - hernia repair ) Recent Infectious Disease Expo: No Immunizations Up To Date Tetanus Booster (TDap): More than 5yrs Date of Pneumonia Vaccine: Apr 12, 2013 Date of Influenza Vaccine: Jan 17, 2018 Seasonal Allergies Seasonal Allergies: No Past Medical History Surgeries: Abdominal, Bowel Surgery, Section, Eye Surgery, Hysterectomy, Oophorectomy, Orthopedic, Tonsillectomy, Tubal Ligation Respiratory: COPD, Emphysema, Sleep Apnea Currently Using CPAP: No Currently Using BIPAP: Yes Cardiac: Coronary Artery Disease, High Cholesterol, Hypertension Neurological: Neuropathy 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: Yes (BENIGN OVARIAN TUMOR) Sexually Transmitted Disease: No HIV/AIDS: No Female 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 Disorders: Denies Hysterectomy, Tubal Ligation, Menopausal Genitourinary: Kidney Stones, Renal Failure Gastrointestinal: Abdominal Hernia, Chronic Constipation, Diverticulosis, C- Diff Musculoskeletal: Degenerate Disk Disease, Arthritis, Fibromyalgia, Chronic Back Pain Endocrine: Diabetes, Non-Insulin dep Loss of Vision: Denies Hearing Impairment: Hard of Hearing Psychosocial: Depression History of Blood Disorders: No Adverse Reaction to Blood Guerra: No (N/A) Family History Reviewed Nursing Family Hx Arthritis 19 FATHER Cardiovascular disease 19 FATHER Completed stroke 19 MOTHER Diabetes mellitus 19 FATHER Hypertension 19 FATHER G8 SISTER Myocardial infarction 19 FATHER Respiratory disorder 19 MOTHER No Pertinent Family Hx Review of Systems Constitutional: see HPI, weakness Gastrointestinal: abdominal pain Physical Exam Physical Exam Vital Signs Vital Signs - First Documented 01/04/19 17:27 Temp 38.3 Pulse 108 Resp 18 B/P (MAP) 127/86 (100) Pulse Ox 95 O2 Delivery Nasal Cannula O2 Flow Rate 2.00 Capillary Refill : Less Than 3 Seconds Height, Weight, BMI Height: 5'3.00" Weight: 273lbs. 2.0oz. [id number]; 49.96 BMI Method:Stated General Appearance: No Apparent Distress, WD/WN, Chronically ill, Obese Eyes: Right Eye Normal Inspection, Right Eye PERRL HEENT: PERRL/EOMI, Normal ENT Inspection, Pharynx Normal, Moist Mucous Membranes Neck: Full Range of Motion, Normal Inspection, Non Tender Respiratory: Chest Non Tender, Lungs Clear, Normal Breath Sounds, No Accessory Muscle Use, No Respiratory Distress Cardiovascular: Regular Rate, Rhythm, No Edema, No Gallop, No JVD, No Murmur, Normal Peripheral Pulses Gastrointestinal: Normal Bowel Sounds, No Organomegaly, No Pulsatile Mass, Soft, Tenderness Back: Normal Inspection, No CVA Tenderness, No Vertebral Tenderness Extremity: Normal Capillary Refill, Normal Inspection, Normal Range of Motion, Non Tender, No Calf Tenderness, No Pedal Edema Neurologic/Psychiatric: Alert, Oriented x3, No Motor/Sensory Deficits, Normal Mood/Affect Skin: Normal Color, Warm/Dry, Other (dressing intact) Lymphatic: No Adenopathy Results Results/Procedures Labs Laboratory Tests 01/04/19 17:49 Patient resulted labs reviewed. Assessment/Plan Admission Diagnosis Assessment: Enterocutaneous fistula wound infection Obesity COPD BRAYAN DM Plan: Home meds Pain control Admission Status: Inpatient Order (span 2 midnights) Reason for Inpatient Admission: Wound infection Diagnosis/Problems Diagnosis/Problems (1) Surgical wound present Status: Acute (2) Candidiasis of skin Status: Acute (3) Sepsis Status: Acute Qualifiers: Sepsis type: sepsis due to unspecified organism Sepsis acute organ dysfunction status: without acute organ dysfunction Qualified Codes: A41.9 - Sepsis, unspecified organism (4) Abdominal wall fistula Status: Acute (5) Debility Status: Acute (6) COPD (chronic obstructive pulmonary disease) Status: Chronic Qualifiers: COPD type: unspecified COPD Qualified Codes: J44.9 - Chronic obstructive pulmonary disease, unspecified (7) Abdominal wound (8) Obesity hypoventilation syndrome Status: Chronic (9) Diabetes mellitus, type 2 Status: Chronic (10) Myopathy (11) BRAYAN treated with BiPAP Status: Chronic (12) Enterocutaneous fistula Status: Acute Clinical Quality Measures DVT/VTE Risk/Contraindication: Risk Factor Score Per Nursin RFS Level Per Nursing on Admit: 4+=Very High ALEIDA LICEA DO Jan 05, 2019 18:14
[2019-01-05] MEDS ORDERED: BETAMETHASONE/CLOTRIM CREAM (LOTRISONE) 45 GM TP SCH (21:00)
[2019-01-05] MEDS: FAMOTIDINE 20 MG (PEPCID) TABLET PO SCH (21:31)
[2019-01-06] VITALS (7 sets, daily range): BP systolic 110–150; BP diastolic 68–85
[2019-01-06] MEDS: PIPERACILLIN/TAZO 4.5 GM/NS 100 ML IV SCH ×6 (00:53→19:21)
[2019-01-06] MEDS: FLUCONAZOLE 100 MG/50 ML IVPB IV SCH ×2 (05:08)
[2019-01-06] MEDS: inSUlin ASPART (NovoLOG) 1 UNIT/0.01 ML (CHARGE PER UNIT) SC SCH ×4 (05:08→21:15)
[2019-01-06] MEDS: NS IV 1000 ML 1,000 ML IV SCH ×2 (05:08→15:03)
[2019-01-06] MEDS: OMEGA 3 (FISH OIL) 1000 MG CAP PO SCH (05:09)
[2019-01-06] MEDS: MAGNESIUM OXIDE (MAG-OX)400 MG TAB PO SCH (05:09)
[2019-01-06] MEDS: KCL 10 MEQ TAB (MICRO K) PO SCH ×2 (05:09→19:21)
[2019-01-06] MEDS: VITAMIN D3 5,000 UNITS (CHOLECALCIFEROL ) CAPSULE PO SCH (05:09)
[2019-01-06] MEDS: RT-ALBUTEROL/IPRATROPIUM 3 ML (DUONEB) VIAL INH SCH ×2 (07:13→18:22)
[2019-01-06] MEDS: FUROSEMIDE 20 MG (LASIX) TAB PO SCH (10:35)
[2019-01-06] MEDS: LINEZOLID (ZYVOX) 600 MG TAB PO SCH ×2 (10:35→20:15)
[2019-01-06] MEDS: LINAGLIPTIN (TRADJENTA) 5 MG TABLET PO SCH (10:35)
[2019-01-06] MEDS: FAMOTIDINE 20 MG (PEPCID) TABLET PO SCH ×2 (10:35→20:15)
[2019-01-06] MEDS: meTOprolol TARTRATE 25 MG (LOPRESSOR) TABLET PO SCH ×3 (10:35→20:15)
[2019-01-06] MEDS: lisINopril 20 MG (PRINIVIL) TABLET PO SCH (10:36)
[2019-01-06] MEDS: amLODIPine 10 MG (NORVASC) TAB PO SCH (10:36)
[2019-01-06] MEDS: DULoxetine 30 MG (CYMBALTA) CAP PO SCH (10:36)
[2019-01-06] MEDS: NICOTINE 21 MG (NICODERM) PATCH TD SCH (10:38)
[2019-01-06] MEDS: NYSTATIN CREAM (MYCOSTATIN) 30 GM TUBE TP PRN ×3 (10:41→20:24)
[2019-01-06] MEDS: DICLOFENAC 1% GEL 100 GM (VOLTAREN) TUBE TOP SCH ×4 (10:41→20:16)
[2019-01-06] MEDS: BETAMETHASONE/CLOTRIM CREAM (LOTRISONE) 45 GM TP SCH ×2 (10:42→20:29)
[2019-01-06] MEDS: FLUoxetine HCL 20 MG (PROzac) CAP PO SCH (10:46)
[2019-01-06] MEDS: NICOTINE PATCH REMOVAL TP SCH (10:49)
--- NOTE | 2019-01-06 12:45 | Progress Note - Hospitalist ---
NAVYA CONTRERAS [facility] 01/06/19 1245: Subjective HPI/CC On Admission Date Seen by Provider: Jan 06, 2019 Time Seen by Provider: 11:30 CC: Enterocutaneous Fistula Infection with Yeast HPI: this is a 63yoWF known to me from inpatient rehab admission for several weeks who presents after undergoing enterocutaneous fistula wound management but began seeing redness and unresolved with the antibiotics the ER gave her of Cipro Flagyl and Diflucan. Overall she has been feeling sicker and sicker so she went to the ER and found to have sepsis with abdominal wound complication.Dr. Olvera was consulted and pt was placed on empiric antibiotics including Zyvox due to VRE history and she will be restarted on all her home medication of Tramadol. Subjective/Events-last exam Vitals are stable and normal. Slept well last night, but L Leg radiculopathy affected her. Eating and drinking well Voiding and stooling well. Walking in room, but sacral region hurts because of sitting so much. She wants to try and walk the halls with the nurse to help her with IV pole. VOLTAREN helps with the leg pain. Wound dressing is draining. Review of Systems General: No Chills, No Night Sweats, No Fatigue, No Malaise, No Appetite, No Other HEENT: No Head Aches, No Visual Changes, No Eye Pain, No Ear Pain, No Dysphasia, No Sinus Congestion, No Post Nasal Drip, No Sore Throat, No Other Pulmonary: No Dyspnea, No Cough, No Pleuritic Chest Pain, No Other Cardiovascular: No: Chest Pain, Palpitations, Orthopnea, Paroxysmal Noc. Dyspnea, Edema, Lt Headedness, Other Gastrointestinal: No: Nausea, Vomiting, Abdominal Pain, Diarrhea, Constipation, Melena, Hematochezia, Other Genitourinary: No Dysuria, No Frequency, No Incontinence, No Hematuria, No Retention, No Other Musculoskeletal: leg pain, foot pain; No: other, neck pain, shoulder pain, arm pain, back pain, hand pain Neurological: No: Weakness, Numbness, Incoordination, Change in speech, Confusion, Seizures, Other Focused Exam Lactate Level 01/04/19 17:49: Lactic Acid Level 1.83 Objective Exam Vital Signs Vital Signs Date Time Temp Pulse Resp B/P (MAP) Pulse Ox O2 Delivery O2 Flow Rate FiO2 01/06/19 08:00 36.2 79 18 150/75 (100) 90 Nasal Cannula 3.00 Capillary Refill : Less Than 3 Seconds General Appearance: No Apparent Distress, WD/WN HEENT: PERRL/EOMI, Normal ENT Inspection, Moist Mucous Membranes Respiratory: Chest Non Tender, Lungs Clear, Normal Breath Sounds, No Accessory Muscle Use, No Respiratory Distress Cardiovascular: Regular Rate, Rhythm, No Edema, No Gallop, No JVD, No Murmur, Normal Peripheral Pulses Gastrointestinal: Normal Bowel Sounds Extremity: Normal Capillary Refill Neurologic/Psychiatric: Alert, Oriented x3, No Motor/Sensory Deficits, Normal Mood/Affect, convex grinder operator II-XII Norm as Tested Skin: Normal Color, Warm/Dry Lymphatic: No Adenopathy Results/Procedures Lab Patient resulted labs reviewed. Assessment/Plan Assessment and Plan Assess & Plan/Chief Complaint Assessment: 1. Sepsis and Incisional drainage 2. L Leg radiculopathy Plan: 1. Continue SCDs for left leg radiculopathy pain. 2. Monitor incisional site 3. Antibiotics 4. Continue ambulation 5. Continue CPAP at night Clinical Quality Measures DVT/VTE Risk/Contraindication: Risk Factor Score Per Nursin RFS Level Per Nursing on Admit: 4+=Very High DANG LICEA DO 01/06/192144: Subjective Subjective/Events-last exam We will discontinue telemetry. Denies any pain. Taking Ultram. All home meds were restarted. Checked meds and labs. Talked about her left leg pain. Labs remain normal. Bowels are moving. Easting and drinking well. Remains on antibiotic coverage. Assessment/Plan Assessment and Plan Assess & Plan/Chief Complaint Monitor sugar Pain control Diagnosis/Problems Diagnosis/Problems (1) Enterocutaneous fistula Status: Acute (2) Abdominal wound (3) BRAYAN treated with BiPAP Status: Chronic (4) Obesity hypoventilation syndrome Status: Chronic (5) Smoker Status: Chronic (6) Surgical wound present Status: Acute (7) Myopathy (8) Debility Status: Acute (9) Diabetes mellitus, type 2 Status: Chronic Supervisory-Addendum Brief Verification & Attestation Participated in pt care: history, MDM, physical Personally performed: exam, history, MDM, supervision of care Care discussed with: Medical Student Procedures: n/a Results interpretation: Verified all documentation Verification and Attestation of Medical Student E/M Service A medical student performed and documented this service in my presence. I reviewed and verified all information documented by the medical student and made modifications to such information, when appropriate. I personally performed the physical exam and medical decision making. Dang Licea, Jan 06, 2019,21:45 NAVYA CONTRERAS [facility] Jan 06, 2019 12:45 DANG LICEA DO Jan 06, 2019 21:45
--- NOTE | 2019-01-06 12:46 | Progress Note ---
Subjective Date Seen by a Provider: Jan 06, 2019 Time Seen by a Provider: 12:00 Subjective/Events-last exam doing well. still having fistula output. no redness/erythema. tolerating diet. no fever/chills. Focused Exam Lactate Level 01/04/19 17:49: Lactic Acid Level 1.83 Objective Exam Vital Signs Date Time Temp Pulse Resp B/P (MAP) Pulse Ox O2 Delivery O2 Flow Rate FiO2 01/06/19 08:00 36.2 79 18 150/75 (100) 90 Nasal Cannula 3.00 01/06/19 07:13 93 Nasal Cannula 3.00 01/06/19 07:00 76 01/06/19 06:16 36.3 80 20 132/85 (101) 95 Nasal Cannula 3.00 01/06/19 04:00 36.3 80 20 132/85 (101) 95 Nasal Cannula 3.00 01/06/19 00:41 89 01/06/19 00:31 36.7 83 18 110/71 (84) 94 Nasal Cannula 3.00 01/05/19 20:56 83 01/05/19 20:00 Nasal Cannula 3.00 01/05/19 19:54 36.4 86 18 134/76 (95) 92 Nasal Cannula 3.00 01/05/19 19:25 95 Nasal Cannula 2.50 01/05/19 19:00 84 01/05/19 16:39 157/82 (107) 01/05/19 16:32 36.6 74 22 176/83 (114) 96 Nasal Cannula 3.00 I & O 01/06/19 07:00 Intake Total 1430 ml Balance 1430 ml Capillary Refill : Less Than 3 Seconds General Appearance: No Apparent Distress HEENT: PERRL/EOMI Neck: Full Range of Motion Respiratory: Chest Non Tender, Decreased Breath Sounds Cardiovascular: Regular Rate, Rhythm Gastrointestinal: normal bowel sounds, non tender, soft Extremity: Normal Capillary Refill Neurologic/Psychiatric: Alert, Oriented x3 Skin: Normal Color Lymphatic: No Adenopathy Results Lab Laboratory Tests 01/05/19 15:30: Glucometer 131H 01/05/19 21:16: Glucometer 170H 01/06/19 05:04: Glucometer 133H 01/06/19 09:52: Glucometer 220H Microbiology 01/04/19 Blood Culture - Preliminary, Resulted No growth 01/04/19 Influenza Types A,B Antigen (EMERY) - Final, Complete 01/04/19 Urine Culture - Preliminary, Resulted Mixed Bacterial Gaye Enterococcus faecium Escherichia coli Assessment/Plan Assessment/Plan Assess & Plan/Chief Complaint recurrent ventral abd inc hernia s/p repair with resp failure, non-STEMI, exacerbation CHF and development enterocutaneous fistula. explained to patient fistula will likely persist due to infected mesh. patient risk prohibitive for surgery. recommend conservative care with appliances to prevent skin infx n/excoriation/fungal. Clinical Quality Measures DVT/VTE Risk/Contraindication: Risk Factor Score Per Nursin RFS Level Per Nursing on Admit: 4+=Very High WENDI ELIZABETH MD Jan 06, 2019 12:46
--- NOTE | 2019-01-06 14:00 | NUR ---
Pastoral care visit.
[2019-01-06] MEDS: ACETAMINOPHEN 500 MG TAB (TYLENOL) PO PRN (15:03)
--- NOTE | 2019-01-06 15:03 | NUR ---
CM/SS, respond to consult. Patient is in agreement with physician recommendation for discharge to community custodial facility prior to returning home. Patient resides in gov't subsidized housing apartment in [place]. Reviewed local facilities starting with [facility] as closest. Patient requested that referral be sent to [facility], completed with [facility]. Await confirmation of acceptance, likely discharge next week. Patient has [employer] only, no skilled benefits available. Anticipate <30 day stay, will review as it relates to CARE Assessment. 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 She had discharged from IR[facility] and returned home, but felt the 32 hours were not enough support in her current condition. She returned to hospital with sepsis diagnosis and requested placement prior to return home. Followup Wednesday.
[2019-01-07] VITALS: BP 107/58
[2019-01-07] MEDS: NS IV 1000 ML 1,000 ML IV SCH ×3 (01:19→20:51)
[2019-01-07] MEDS: PIPERACILLIN/TAZO 4.5 GM/NS 100 ML IV SCH ×6 (02:28→18:05)
[2019-01-07 04:00] VITALS: BP 121/59
[2019-01-07] MEDS: inSUlin ASPART (NovoLOG) 1 UNIT/0.01 ML (CHARGE PER UNIT) SC SCH ×4 (05:59→20:50)
[2019-01-07] MEDS: OMEGA 3 (FISH OIL) 1000 MG CAP PO SCH (06:35)
[2019-01-07] MEDS: KCL 10 MEQ TAB (MICRO K) PO SCH ×2 (06:35→18:05)
[2019-01-07] MEDS: FLUCONAZOLE 100 MG/50 ML IVPB IV SCH ×2 (06:35)
[2019-01-07] MEDS: MAGNESIUM OXIDE (MAG-OX)400 MG TAB PO SCH (06:35)
[2019-01-07] MEDS: VITAMIN D3 5,000 UNITS (CHOLECALCIFEROL ) CAPSULE PO SCH (06:35)
[2019-01-07 06:42] LABS: BASOPHILS % (AUTO) 0 % (0-10); EOSINOPHILS # (AUTO) 0.3 10^3/uL (0.0-0.3); EOSINOPHILS % (AUTO) 3 % (0-10); HEMATOCRIT 35 % (35-52); HEMOGLOBIN 10.6 G/DL (11.5-16.0); LYMPHOCYTES % (AUTO) 34 % (12-44); MEAN CORPUSCULAR HEMOGLOBIN 27 PG (25-34); MEAN CORPUSCULAR HGB CONC 30 G/DL (32-36); MEAN CORPUSCULAR VOLUME 90 FL (80-99); MEAN PLATELET VOLUME 9.7 FL (7.4-10.4); MONOCYTES % (AUTO) 11 % (0-12); NEUTROPHILS # (AUTO) 4.5 X 10^3 (1.8-7.8); NEUTROPHILS % (AUTO) 52 % (42-75); PLATELET COUNT 260 10^3/uL (130-400); RED CELL DISTRIBUTION WIDTH 16.5 % (10.0-14.5); WHITE BLOOD COUNT 8.8 10^3/uL (4.3-11.0)
[2019-01-07 07:04] LABS: ALANINE AMINOTRANSFERASE 19 U/L (0-55); ALBUMIN 3.3 GM/DL (3.2-4.5); ALKALINE PHOSPHATASE 69 U/L (40-136); BILIRUBIN,TOTAL 0.2 MG/DL (0.1-1.0); BUN/CREATININE RATIO 13; CALCIUM 8.6 MG/DL (8.5-10.1); CARBON DIOXIDE 24 MMOL/L (21-32); CHLORIDE 108 MMOL/L (98-107); CREATININE SERUM 0.86 MG/DL (0.60-1.30); GFR ESTIMATED > 60; GLUCOSE 120 MG/DL (70-105); POTASSIUM 3.9 MMOL/L (3.6-5.0); SODIUM 140 MMOL/L (135-145); TOTAL PROTEIN 6.7 GM/DL (6.4-8.2)
[2019-01-07 07:45] VITALS: BP 150/74
[2019-01-07] MEDS: lisINopril 20 MG (PRINIVIL) TABLET PO SCH (08:58)
[2019-01-07] MEDS: amLODIPine 10 MG (NORVASC) TAB PO SCH (08:58)
[2019-01-07] MEDS: LINEZOLID (ZYVOX) 600 MG TAB PO SCH ×2 (08:58→20:50)
[2019-01-07] MEDS: DULoxetine 30 MG (CYMBALTA) CAP PO SCH (08:58)
[2019-01-07] MEDS: LINAGLIPTIN (TRADJENTA) 5 MG TABLET PO SCH (08:58)
[2019-01-07] MEDS: FAMOTIDINE 20 MG (PEPCID) TABLET PO SCH ×2 (08:58→20:50)
[2019-01-07] MEDS: FLUoxetine HCL 20 MG (PROzac) CAP PO SCH (08:58)
[2019-01-07] MEDS: FUROSEMIDE 20 MG (LASIX) TAB PO SCH (08:59)
[2019-01-07] MEDS: meTOprolol TARTRATE 25 MG (LOPRESSOR) TABLET PO SCH ×3 (08:59→20:50)
[2019-01-07] MEDS: NICOTINE PATCH REMOVAL TP SCH (08:59)
[2019-01-07] MEDS: NICOTINE 21 MG (NICODERM) PATCH TD SCH (08:59)
[2019-01-07] MEDS: DICLOFENAC 1% GEL 100 GM (VOLTAREN) TUBE TOP SCH ×4 (09:03→20:51)
[2019-01-07] MEDS: BETAMETHASONE/CLOTRIM CREAM (LOTRISONE) 45 GM TP SCH (09:05)
--- NOTE | 2019-01-07 09:05 | NUR ---
REFUSED LOTRISONE. STATES "I DON'T KNOW WHY THAT IS ORDERED. I USE THE [facility]. THAT MEDICINE IS NOT EVEN HERE. I DON'T WANT IT".
--- NOTE | 2019-01-07 11:30 | NUR ---
ULTRAM PO FOR C/O FOOT PAIN.
[2019-01-07 11:34] VITALS: BP 129/75
--- NOTE | 2019-01-07 13:02 | NUR ---
REFUSED VOLTAREN UNTIL AFTER SHOWER. WANTS TO SLEEP BEFORE TAKING A SHOWER.
--- NOTE | 2019-01-07 13:15 | Progress Note - Hospitalist ---
Subjective HPI/CC On Admission Date Seen by Provider: Jan 07, 2019 Time Seen by Provider: 12:00 CC: Enterocutaneous Fistula Infection with Yeast HPI: this is a 63yoWF known to me from inpatient rehab admission for several weeks who presents after undergoing enterocutaneous fistula wound management but began seeing redness and unresolved with the antibiotics the ER gave her of Cipro Flagyl and Diflucan. Overall she has been feeling sicker and sicker so she went to the ER and found to have sepsis with abdominal wound complication.Dr. Olvera was consulted and pt was placed on empiric antibiotics including Zyvox due to VRE history and she will be restarted on all her home medication of Tramadol. Subjective/Events-last exam Patient doing pretty well Left leg continues to be a problem Radiculopathy is unable to be pursued due to the enterocutaneous fistula and wound issues Tramadol will be changed to 100 MG every 6 hours help control the pain Overall feels a lot better Urine culture with VRE now on Zyvox by mouth Review of Systems General: Fatigue Focused Exam Lactate Level 01/04/19 17:49: Lactic Acid Level 1.83 Objective Exam Vital Signs Vital Signs Date Time Temp Pulse Resp B/P (MAP) Pulse Ox O2 Delivery O2 Flow Rate FiO2 01/07/19 11:34 37.0 82 20 129/75 (93) 96 Nasal Cannula 2.00 Capillary Refill : Less Than 3 SecondsLess Than 3 Seconds General Appearance: No Apparent Distress, WD/WN, Chronically ill, Obese Respiratory: Chest Non Tender, Lungs Clear, Normal Breath Sounds, No Accessory Muscle Use, No Respiratory Distress Cardiovascular: Regular Rate, Rhythm, No Edema, No Gallop, No JVD, No Murmur, Normal Peripheral Pulses Neurologic/Psychiatric: Alert, Oriented x3, No Motor/Sensory Deficits, Normal Mood/Affect Results/Procedures Lab Laboratory Tests 01/07/19 06:13 Patient resulted labs reviewed. Assessment/Plan Assessment and Plan Assess & Plan/Chief Complaint Assessment: Surgical wound infection UTI with VRE Severe left leg radiculopathy unable to pursue source and intervene due to continued wound infection of the abdomen Diabetes mellitus COPD Current smoker Plan: Increase tramadol Monitor bowel function Maintain antibiotics Continue wound care Diagnosis/Problems Diagnosis/Problems (1) Enterocutaneous fistula Status: Acute (2) Abdominal wound (3) BRAYAN treated with BiPAP Status: Chronic (4) Obesity hypoventilation syndrome Status: Chronic (5) Smoker Status: Chronic (6) Surgical wound present Status: Acute (7) Myopathy (8) Debility Status: Acute (9) Diabetes mellitus, type 2 Status: Chronic Clinical Quality Measures DVT/VTE Risk/Contraindication: Risk Factor Score Per Nursin RFS Level Per Nursing on Admit: 4+=Very High ALEIDA LICEA DO Jan 07, 2019 13:15
--- NOTE | 2019-01-07 13:41 | NUR ---
LAB CALLED AND REPORTS PT IS VRE URINE. DR. LICEA NOTIFIED.
[2019-01-07] MEDS: ACETAMINOPHEN 500 MG TAB (TYLENOL) PO PRN (13:49)
[2019-01-07] MEDS: RT-ALBUTEROL/IPRATROPIUM 3 ML (DUONEB) VIAL INH SCH ×2 (15:12→19:46)
[2019-01-07 16:00] VITALS: BP 136/84
--- NOTE | 2019-01-07 18:10 | NUR ---
ULTRAM 100MG PO FOR FOOT PAIN.
[2019-01-07 19:37] VITALS: BP 129/81
[2019-01-07] MEDS: NYSTATIN CREAM (MYCOSTATIN) 30 GM TUBE TP PRN (20:52)
[2019-01-08] VITALS: BP 115/53
[2019-01-08] MEDS: PIPERACILLIN/TAZO 4.5 GM/NS 100 ML IV SCH ×6 (01:51→16:46)
[2019-01-08] MEDS: inSUlin ASPART (NovoLOG) 1 UNIT/0.01 ML (CHARGE PER UNIT) SC SCH ×4 (06:16→20:54)
[2019-01-08] MEDS: NS IV 1000 ML 1,000 ML IV SCH ×2 (06:17→20:20)
[2019-01-08] MEDS: OMEGA 3 (FISH OIL) 1000 MG CAP PO SCH (06:18)
[2019-01-08] MEDS: VITAMIN D3 5,000 UNITS (CHOLECALCIFEROL ) CAPSULE PO SCH (06:18)
[2019-01-08] MEDS: FLUCONAZOLE 100 MG/50 ML IVPB IV SCH ×2 (06:18)
[2019-01-08] MEDS: MAGNESIUM OXIDE (MAG-OX)400 MG TAB PO SCH (06:18)
[2019-01-08] MEDS: KCL 10 MEQ TAB (MICRO K) PO SCH ×2 (06:18→16:46)
[2019-01-08 08:00] VITALS: BP 152/91
[2019-01-08] MEDS: RT-ALBUTEROL/IPRATROPIUM 3 ML (DUONEB) VIAL INH SCH ×4 (08:19→19:12)
[2019-01-08] MEDS: amLODIPine 10 MG (NORVASC) TAB PO SCH (08:21)
[2019-01-08] MEDS: DULoxetine 30 MG (CYMBALTA) CAP PO SCH (08:21)
[2019-01-08] MEDS: LINAGLIPTIN (TRADJENTA) 5 MG TABLET PO SCH (08:22)
[2019-01-08] MEDS: FLUoxetine HCL 20 MG (PROzac) CAP PO SCH (08:22)
[2019-01-08] MEDS: FAMOTIDINE 20 MG (PEPCID) TABLET PO SCH ×2 (08:22→20:20)
[2019-01-08] MEDS: FUROSEMIDE 20 MG (LASIX) TAB PO SCH (08:22)
[2019-01-08] MEDS: lisINopril 20 MG (PRINIVIL) TABLET PO SCH (08:22)
[2019-01-08] MEDS: LINEZOLID (ZYVOX) 600 MG TAB PO SCH ×2 (08:22→20:20)
[2019-01-08] MEDS: NICOTINE 21 MG (NICODERM) PATCH TD SCH (08:22)
[2019-01-08] MEDS: meTOprolol TARTRATE 25 MG (LOPRESSOR) TABLET PO SCH ×3 (08:22→20:20)
[2019-01-08] MEDS: DICLOFENAC 1% GEL 100 GM (VOLTAREN) TUBE TOP SCH ×4 (08:27→20:21)
[2019-01-08] MEDS: NICOTINE PATCH REMOVAL TP SCH (09:16)
[2019-01-08 09:34] VITALS: BP 152/91
--- NOTE | 2019-01-08 09:38 | Progress Note - Hospitalist ---
Subjective HPI/CC On Admission Date Seen by Provider: Jan 08, 2019 Time Seen by Provider: 08:30 CC: Enterocutaneous Fistula Infection with Yeast HPI: this is a 63yoWF known to me from inpatient rehab admission for several weeks who presents after undergoing enterocutaneous fistula wound management but began seeing redness and unresolved with the antibiotics the ER gave her of Cipro Flagyl and Diflucan. Overall she has been feeling sicker and sicker so she went to the ER and found to have sepsis with abdominal wound complication.Dr. Olvera was consulted and pt was placed on empiric antibiotics including Zyvox due to VRE history and she will be restarted on all her home medication of Tramadol. Subjective/Events-last exam Patient doing much better Left leg radiculopathy helped with increased dose of Ultram and more frequent Eating and drinking well No additional pain is reported Isolated now due to VRE in urine Check meds and labs Conferred with youth counselor of Systems Musculoskeletal: leg pain Objective Exam Vital Signs Vital Signs Date Time Temp Pulse Resp B/P (MAP) Pulse Ox O2 Delivery O2 Flow Rate FiO2 01/08/19 14:33 92 Nasal Cannula 3.00 01/08/19 09:34 37.0 86 32 01/08/19 08:00 16 152/91 (111) Capillary Refill : Less Than 3 SecondsLess Than 3 Seconds General Appearance: No Apparent Distress, WD/WN Respiratory: Chest Non Tender, Lungs Clear, Normal Breath Sounds, No Accessory Muscle Use, No Respiratory Distress Cardiovascular: Regular Rate, Rhythm, No Edema, No Gallop, No JVD, No Murmur, Normal Peripheral Pulses Neurologic/Psychiatric: Alert, Oriented x3, No Motor/Sensory Deficits, Normal Mood/Affect Results/Procedures Lab Patient resulted labs reviewed. Assessment/Plan Assessment and Plan Assess & Plan/Chief Complaint Assessment: Surgical wound infection UTI with VRE Severe left leg radiculopathy unable to pursue source and intervene due to continued wound infection of the abdomen Diabetes mellitus COPD Current smoker Plan: Increase tramadol Monitor bowel function Maintain antibiotics Continue wound care Diagnosis/Problems Diagnosis/Problems (1) Enterocutaneous fistula Status: Acute (2) Abdominal wound (3) BRAYAN treated with BiPAP Status: Chronic (4) Obesity hypoventilation syndrome Status: Chronic (5) Smoker Status: Chronic (6) Surgical wound present Status: Acute (7) Myopathy (8) Debility Status: Acute (9) Diabetes mellitus, type 2 Status: Chronic Clinical Quality Measures DVT/VTE Risk/Contraindication: Risk Factor Score Per Nursin RFS Level Per Nursing on Admit: 4+=Very High ALEIDA LICEA DO Jan 08, 2019 09:38
[2019-01-08] MEDS ORDERED: RT-ALBUTEROL/IPRATROPIUM 3 ML (DUONEB) VIAL IH PRN (09:45)
--- NOTE | 2019-01-08 14:47 | NUR ---
at the end of the RT's day shift patient was on 3 L, which is what she uses at home.
[2019-01-08 16:22] VITALS: BP 129/91
[2019-01-08 19:57] VITALS: BP 136/78
[2019-01-08] MEDS: NYSTATIN CREAM (MYCOSTATIN) 30 GM TUBE TP PRN (20:25)
[2019-01-08 23:30] VITALS: BP 135/82
[2019-01-09] MEDS: NS IV 1000 ML 1,000 ML IV SCH ×2 (00:12→16:43)
[2019-01-09] MEDS: PIPERACILLIN/TAZO 4.5 GM/NS 100 ML IV SCH ×6 (01:43→16:44)
[2019-01-09 05:26] LABS: BASOPHILS % (AUTO) 0 % (0-10); EOSINOPHILS # (AUTO) 0.3 10^3/uL (0.0-0.3); EOSINOPHILS % (AUTO) 4 % (0-10); HEMATOCRIT 34 % (35-52); HEMOGLOBIN 10.7 G/DL (11.5-16.0); LYMPHOCYTES # (AUTO) 2.6 X 10^3 (1.0-4.0); LYMPHOCYTES % (AUTO) 33 % (12-44); MEAN CORPUSCULAR HEMOGLOBIN 28 PG (25-34); MEAN CORPUSCULAR HGB CONC 31 G/DL (32-36); MEAN CORPUSCULAR VOLUME 90 FL (80-99); MEAN PLATELET VOLUME 9.5 FL (7.4-10.4); MONOCYTES # (AUTO) 0.8 X 10^3 (0.0-1.0); MONOCYTES % (AUTO) 10 % (0-12); NEUTROPHILS # (AUTO) 4.2 X 10^3 (1.8-7.8); NEUTROPHILS % (AUTO) 53 % (42-75); PLATELET COUNT 242 10^3/uL (130-400); RED CELL DISTRIBUTION WIDTH 16.4 % (10.0-14.5)
[2019-01-09 05:47] LABS: ALANINE AMINOTRANSFERASE 20 U/L (0-55); ALBUMIN 3.3 GM/DL (3.2-4.5); ALKALINE PHOSPHATASE 52 U/L (40-136); BILIRUBIN,TOTAL 0.3 MG/DL (0.1-1.0); BUN/CREATININE RATIO 15; CALCIUM 8.8 MG/DL (8.5-10.1); CARBON DIOXIDE 23 MMOL/L (21-32); CHLORIDE 106 MMOL/L (98-107); CREATININE SERUM 0.82 MG/DL (0.60-1.30); GFR ESTIMATED > 60; GLUCOSE 97 MG/DL (70-105); POTASSIUM 3.7 MMOL/L (3.6-5.0); SODIUM 140 MMOL/L (135-145); TOTAL PROTEIN 7.2 GM/DL (6.4-8.2)
[2019-01-09] MEDS: inSUlin ASPART (NovoLOG) 1 UNIT/0.01 ML (CHARGE PER UNIT) SC SCH ×4 (05:50→20:14)
[2019-01-09] MEDS: OMEGA 3 (FISH OIL) 1000 MG CAP PO SCH (06:39)
[2019-01-09] MEDS: FLUCONAZOLE 100 MG/50 ML IVPB IV SCH ×2 (06:39)
[2019-01-09] MEDS: MAGNESIUM OXIDE (MAG-OX)400 MG TAB PO SCH (06:39)
[2019-01-09] MEDS: VITAMIN D3 5,000 UNITS (CHOLECALCIFEROL ) CAPSULE PO SCH (06:39)
[2019-01-09] MEDS: KCL 10 MEQ TAB (MICRO K) PO SCH ×2 (06:39→16:44)
[2019-01-09] MEDS: RT-ALBUTEROL/IPRATROPIUM 3 ML (DUONEB) VIAL INH SCH ×3 (06:54→14:37)
[2019-01-09 08:00] VITALS: BP 178/73
--- NOTE | 2019-01-09 08:18 | NUR ---
prior to a.m. medications pulse was 88 b/p was 135/67
[2019-01-09] MEDS: LINAGLIPTIN (TRADJENTA) 5 MG TABLET PO SCH (08:19)
[2019-01-09] MEDS: FUROSEMIDE 20 MG (LASIX) TAB PO SCH (08:19)
[2019-01-09] MEDS: FLUoxetine HCL 20 MG (PROzac) CAP PO SCH (08:19)
[2019-01-09] MEDS: DULoxetine 30 MG (CYMBALTA) CAP PO SCH (08:19)
[2019-01-09] MEDS: lisINopril 20 MG (PRINIVIL) TABLET PO SCH (08:19)
[2019-01-09] MEDS: amLODIPine 10 MG (NORVASC) TAB PO SCH (08:19)
[2019-01-09] MEDS: FAMOTIDINE 20 MG (PEPCID) TABLET PO SCH ×2 (08:19→20:30)
[2019-01-09] MEDS: LINEZOLID (ZYVOX) 600 MG TAB PO SCH ×2 (08:19→20:30)
[2019-01-09] MEDS: meTOprolol TARTRATE 25 MG (LOPRESSOR) TABLET PO SCH ×3 (08:19→20:30)
[2019-01-09] MEDS: NICOTINE 21 MG (NICODERM) PATCH TD SCH (08:20)
[2019-01-09] MEDS: NICOTINE PATCH REMOVAL TP SCH (08:22)
[2019-01-09] MEDS: DICLOFENAC 1% GEL 100 GM (VOLTAREN) TUBE TOP SCH ×4 (08:22→20:31)
[2019-01-09] MEDS: ENOXAPARIN 60 MG/0.6 ML (LOVENOX) SYR SC SCH (14:35)
[2019-01-09 16:00] VITALS: BP 125/72
--- NOTE | 2019-01-09 16:40 | Progress Note ---
Subjective Subjective/Events-last exam Afebrile, states she is feeling fairly well. Anxious to get to nursing facility to continue to improve. Objective Exam Last Set of Vital Signs Vital Signs Date Time Temp Pulse Resp B/P (MAP) Pulse Ox O2 Delivery O2 Flow Rate FiO2 01/09/19 16:00 36.6 85 16 125/72 (89) 96 NIV CPAP 3.00 01/08/19 09:34 32 Capillary Refill : Less Than 3 SecondsLess Than 3 Seconds I&O Intake and Output 01/09/19 00:00 Intake Total 3430 ml Balance 3430 ml Intake Oral 2020 ml IV Total 1410 ml # Voids 9 # Bowel Movements 6 General: Alert, No Acute Distress Lungs: Clear to Auscultation, Normal Air Movement Heart: Regular Rate, No Murmurs Abdomen: Normal Bowel Sounds, Other (dressing in place with no drainage, mild ttp surrounding area) Neuro: Normal Speech Psych/Mental Status: Mental Status NL Results/Procedures Lab Laboratory Tests 01/08/19 21:42: Glucometer 126H 01/09/19 05:10: White Blood Count 8.0, Red Blood Count 3.80L, Hemoglobin 10.7L, Hematocrit 34L, Mean Corpuscular Volume 90, Mean Corpuscular Hemoglobin 28, Mean Corpuscular Hemoglobin Concent 31L, Red Cell Distribution Width 16.4H, Platelet Count 242, Mean Platelet Volume 9.5, Neutrophils (%) (Auto) 53, Lymphocytes (%) (Auto) 33, Monocytes (%) (Auto) 10, Eosinophils (%) (Auto) 4, Basophils (%) (Auto) 0, Neutrophils # (Auto) 4.2, Lymphocytes # (Auto) 2.6, Monocytes # (Auto) 0.8, Eosinophils # (Auto) 0.3, Basophils # (Auto) 0.0, Sodium Level 140, Potassium Level 3.7, Chloride Level 106, Carbon Dioxide Level 23, Anion Gap 11, Blood Urea Nitrogen 12, Creatinine 0.82, Estimat Glomerular Filtration Rate > 60, BUN/Creatinine Ratio 15, Glucose Level 97, Calcium Level 8.8, Corrected Calcium 9.4, Total Bilirubin 0.3, Aspartate Amino Transf (AST/SGOT) 21, Alanine Aminotransferase (ALT/SGPT) 20, Alkaline Phosphatase 52, Total Protein 7.2, Albumin 3.3 01/09/19 10:39: Glucometer 149H 01/09/19 15:06: Glucometer 146H Microbiology 01/04/19 Blood Culture - Preliminary, Resulted No growth 01/04/19 Influenza Types A,B Antigen (EMERY) - Final, Complete 01/04/19 Urine Culture - Final, Complete Mixed Bacterial Gaye Enterococcus faecium Escherichia coli Assessment/Plan Assessment/Plan (1) Debility Status: Acute Assessment & Plan: [facility] evaluating today. (2) Diabetes mellitus, type 2 Status: Chronic Assessment & Plan: Diabetic diet, sliding scale insulin, levemir. (3) Enterocutaneous fistula Status: Acute Assessment & Plan: Management per Surgery, appreciate recommendations. On Zosyn and fluconazole. (4) VRE (vancomycin resistant enterococcus) culture positive Assessment & Plan: Urine culture positive, on linezolid. (5) DVT prophylaxis Status: Acute Assessment & Plan: Enoxaparin Clinical Quality Measures DVT/VTE Risk/Contraindication: Risk Factor Score Per Nursin RFS Level Per Nursing on Admit: 4+=Very High DAVE VENTURA MD Jan 09, 2019 16:40
[2019-01-10] VITALS: BP 116/74
[2019-01-10] MEDS: NS IV 1000 ML 1,000 ML IV SCH ×2 (01:04→11:24)
[2019-01-10] MEDS: PIPERACILLIN/TAZO 4.5 GM/NS 100 ML IV SCH ×4 (02:09→09:54)
[2019-01-10 05:10] LABS: BASOPHILS % (AUTO) 0 % (0-10); EOSINOPHILS # (AUTO) 0.4 10^3/uL (0.0-0.3); EOSINOPHILS % (AUTO) 4 % (0-10); HEMATOCRIT 34 % (35-52); HEMOGLOBIN 10.8 G/DL (11.5-16.0); LYMPHOCYTES # (AUTO) 2.6 X 10^3 (1.0-4.0); LYMPHOCYTES % (AUTO) 28 % (12-44); MEAN CORPUSCULAR HEMOGLOBIN 28 PG (25-34); MEAN CORPUSCULAR HGB CONC 31 G/DL (32-36); MEAN CORPUSCULAR VOLUME 90 FL (80-99); MEAN PLATELET VOLUME 9.9 FL (7.4-10.4); MONOCYTES % (AUTO) 10 % (0-12); NEUTROPHILS # (AUTO) 5.3 X 10^3 (1.8-7.8); NEUTROPHILS % (AUTO) 57 % (42-75); PLATELET COUNT 209 10^3/uL (130-400); RED CELL DISTRIBUTION WIDTH 16.1 % (10.0-14.5); WHITE BLOOD COUNT 9.3 10^3/uL (4.3-11.0)
[2019-01-10] MEDS: inSUlin ASPART (NovoLOG) 1 UNIT/0.01 ML (CHARGE PER UNIT) SC SCH ×2 (06:05→09:50)
[2019-01-10] MEDS: VITAMIN D3 5,000 UNITS (CHOLECALCIFEROL ) CAPSULE PO SCH (06:06)
[2019-01-10] MEDS: ENOXAPARIN 60 MG/0.6 ML (LOVENOX) SYR SC SCH (06:07)
[2019-01-10] MEDS: OMEGA 3 (FISH OIL) 1000 MG CAP PO SCH (06:07)
[2019-01-10] MEDS: MAGNESIUM OXIDE (MAG-OX)400 MG TAB PO SCH (06:07)
[2019-01-10] MEDS: KCL 10 MEQ TAB (MICRO K) PO SCH (06:07)
[2019-01-10] MEDS: FLUCONAZOLE 100 MG/50 ML IVPB IV SCH ×2 (06:07)
[2019-01-10] MEDS: RT-ALBUTEROL/IPRATROPIUM 3 ML (DUONEB) VIAL INH SCH ×3 (06:23→14:32)
[2019-01-10 08:00] VITALS: BP 125/76
[2019-01-10] MEDS: FUROSEMIDE 20 MG (LASIX) TAB PO SCH (09:47)
[2019-01-10] MEDS: meTOprolol TARTRATE 25 MG (LOPRESSOR) TABLET PO SCH ×2 (09:47→12:17)
[2019-01-10] MEDS: NICOTINE PATCH REMOVAL TP SCH (09:47)
[2019-01-10] MEDS: amLODIPine 10 MG (NORVASC) TAB PO SCH (09:48)
[2019-01-10] MEDS: NICOTINE 21 MG (NICODERM) PATCH TD SCH (09:48)
[2019-01-10] MEDS: LINEZOLID (ZYVOX) 600 MG TAB PO SCH (09:49)
[2019-01-10] MEDS: DULoxetine 30 MG (CYMBALTA) CAP PO SCH (09:49)
[2019-01-10] MEDS: FAMOTIDINE 20 MG (PEPCID) TABLET PO SCH (09:49)
[2019-01-10] MEDS: lisINopril 20 MG (PRINIVIL) TABLET PO SCH (09:49)
[2019-01-10] MEDS: LINAGLIPTIN (TRADJENTA) 5 MG TABLET PO SCH (09:49)
[2019-01-10] MEDS: FLUoxetine HCL 20 MG (PROzac) CAP PO SCH (09:49)
[2019-01-10] MEDS: DICLOFENAC 1% GEL 100 GM (VOLTAREN) TUBE TOP SCH ×2 (09:50→12:18)
--- NOTE | 2019-01-10 11:22 | NUR ---
REPORT CALLED TO LILO JETT AT [phone]
--- NOTE | 2019-01-10 11:38 | NUR ---
CARE assessment completed in anticipation of pt's discharge to [facility]. at 1400. Pt agreeable with plan as is aware needs more care before she is able to care for herself at home. CARE assessment faxed to the facility and to [facility]. Pt has her own C-pap machine and portable oxygen tank.
[2019-01-10] MEDS ORDERED: AMOX-358 PO (12:06)
[2019-01-10] MEDS ORDERED: INSU100I29 SQ (12:06)
[2019-01-10] MEDS ORDERED: LINE600T5 PO (12:06)
--- NOTE | 2019-01-10 12:11 | Discharge Inst-Skilled Nursing ---
Discharge Inst-Skilled NF Patient Instructions Patient Problems: Enterocutaneous fistula DMII Sleep apnea Consult/Follow Up/Orders Skilled NF Admit to: [facility] Certifications SNF I certify that SNF services are required to be given on an inpatient basis because of the above named patient's need for assisted care on a continuing basis for the conditions(s) for which he/she was receiving inpatient hospital services prior to his/her transfer to the SNF. [facility] Facility Order: Nursing Services, Physical Therapy-Evaluate & Treat, Wound Care-Eval/Treat Oxygen Delivery Method: Nasal Cannula Discharge Diet: ADA Diet Daily Activity as Tolerated: Yes New & Resume Previous Orders Other Instructions Wet to dry dressing to abdominal wound prn. Discharge Medications New, Converted or Re-Newed RX: Transmitted to Pharmacy New Medications: Amoxicillin/Potassium Clav (Augmentin 875-125 Tablet) 1 Each Tablet 1 EACH PO BID for 2 Days, #4 TAB 0 Refills Linezolid (Zyvox) 600 Mg Tablet 600 MG PO BID, #3 TAB 0 Refills Changed Medications: Insulin Detemir (Levemir Flextouch) 100 Unit/1 Ml Insuln.pen 20 UNIT SQ BID, #1 EA (Changed from: 12 UNIT) Continued Medications: Albuterol/Ipratropium (Combivent Respimat Inhal [place]) 4 Gm Aero 2 PUFF IH Q4H PRN for SHORTNESS OF BREATH Amlodipine Besylate (Amlodipine Besylate) 10 Mg Tablet 10 MG PO DAILY, TAB Atorvastatin Calcium (Atorvastatin Calcium) 40 Mg Tablet 40 MG PO DAILY, TAB Cholecalciferol (Vitamin D3) (Vitamin D3) 5,000 Unit Capsule 5000 UNIT PO DAILY, CAP Diclofenac Sodium (Diclofenac Sodium) 100 Gm Gel..gram. TOP TID PRN for PAIN-MILD, EA Duloxetine HCl (Duloxetine HCl) 60 Mg Capsule.dr 60 MG PO DAILY Famotidine (Acid Entertainment & Media Correspondent (FAMOTIDINE)) 20 Mg Tablet 20 MG PO BID, TAB Fluoxetine HCl (Fluoxetine HCl) 20 Mg Tablet 20 MG PO DAILY, TAB Furosemide (Furosemide) 20 Mg Tablet 20 MG PO DAILY, TAB Lisinopril (Lisinopril) 20 Mg Tablet 20 MG PO DAILY, TAB Magnesium Oxide (Magnesium Oxide) 400 Mg Tablet 400 MG PO DAILY, TAB Metoprolol Tartrate (Metoprolol Tartrate) 25 Mg Tablet 25 MG PO TID, TAB Nicotine (Nicotine Patch) 1 Each Patch.td24 21 MG TD DAILY, PATCH Nystatin (Nystatin) 15 Gm Cream..g. TOP Q8H PRN for RASH, EA [place] 3 Polyunsat Fatty Acids (Fish Oil 1,000 mg Capsule) 1,000 Mg Cap 1000 MG PO DAILY, CAP Potassium Chloride (Potassium Chloride) 10 Meq Tablet.er 10 MEQ PO BID, TAB Sitagliptin Phosphate (Januvia) 100 Mg Tablet 100 MG PO DAILY, TAB Tramadol HCl (Tramadol HCl) 50 Mg Tablet 50 MG PO TID PRN for PAIN-MODERATE, TAB Discontinued Medications: Ciprofloxacin HCl (Ciprofloxacin HCl) 500 Mg Tablet 500 MG PO BID for 15 Days, TAB 15 DAY SUPPLY FILLED 12-26-18 Fluconazole (Fluconazole) 150 Mg Tablet 150 MG PO DAILY for 10 Days, TAB 10 DAY SUPPLY START DATE 12-30-18 Metronidazole (Metronidazole) 500 Mg Tablet 500 MG PO QID for 15 Days, TAB 15 DAY SUPPLY FILLED 12-26-18 Dave Guzman Jan 10, 2019 12:10 DAVE GUZMAN MD Jan 10, 2019 12:11
--- NOTE | 2019-01-10 12:12 | Discharge Summary ---
Discharge Summary Hospital Course Problems/Diagnosis: (1) Debility Assessment & Plan: Discharged to Intermediate at [facility]. (2) Diabetes mellitus, type 2 Assessment & Plan: Diabetic diet, sliding scale insulin, levemir. (3) Enterocutaneous fistula Assessment & Plan: Treated with Zosyn and fluconazole, continued to complete course with Augmentin outpatient. Wet to dry dressings per Surgery. (4) VRE (vancomycin resistant enterococcus) culture positive Assessment & Plan: Urine culture positive, on linezolid. Hospital Course Date of Admission: Jan 04, 2019 at 19:07 Admission Diagnosis : Family Physician/Provider: Cassius Francois MD Date of Discharge: 01/10/19 Discharge Diagnosis: See problem list Hospital Course: See problem list Labs and Pending Lab Test: Laboratory Tests 01/09/19 15:06: Glucometer 146H 01/09/19 20:03: Glucometer 180H 01/10/19 04:37: White Blood Count 9.3, Red Blood Count 3.83L, Hemoglobin 10.8L, Hematocrit 34L, Mean Corpuscular Volume 90, Mean Corpuscular Hemoglobin 28, Mean Corpuscular Hemoglobin Concent 31L, Red Cell Distribution Width 16.1H, Platelet Count 209, Mean Platelet Volume 9.9, Neutrophils (%) (Auto) 57, Lymphocytes (%) (Auto) 28, Monocytes (%) (Auto) 10, Eosinophils (%) (Auto) 4, Basophils (%) (Auto) 0, Neutrophils # (Auto) 5.3, Lymphocytes # (Auto) 2.6, Monocytes # (Auto) 1.0, Eosinophils # (Auto) 0.4H, Basophils # (Auto) 0.0 01/10/19 06:05: Glucometer 113H 01/10/19 09:33: Glucometer 122H Microbiology 01/04/19 Blood Culture - Preliminary, Resulted No growth 01/04/19 Influenza Types A,B Antigen (EMERY) - Final, Complete 01/04/19 Urine Culture - Final, Complete Mixed Bacterial Gaye Enterococcus faecium Escherichia coli Home Meds Active Augmentin 875-125 Tablet (Amoxicillin/Potassium Clav) 1 Each Tablet 1 Each PO BID 2 Days Zyvox (Linezolid) 600 Mg Tablet 600 Mg PO BID Levemir Flextouch (Insulin Detemir) 100 Unit/1 Ml Insuln.pen 20 Unit SQ BID Reported Tramadol HCl 50 Mg Tablet 50 Mg PO TID PRN Nystatin 15 Gm Cream..g. TOP Q8H PRN Fluconazole 150 Mg Tablet 150 Mg PO DAILY 10 Days 10 DAY SUPPLY START DATE 12-30-18 Metronidazole 500 Mg Tablet 500 Mg PO QID 15 Days 15 DAY SUPPLY FILLED 12-26-18 Ciprofloxacin HCl 500 Mg Tablet 500 Mg PO BID 15 Days 15 DAY SUPPLY FILLED 12-26-18 Potassium Chloride 10 Meq Tablet.er 10 Meq PO BID Nicotine Patch (Nicotine) 1 Each Patch.td24 21 Mg TD DAILY Metoprolol Tartrate 25 Mg Tablet 25 Mg PO TID Furosemide 20 Mg Tablet 20 Mg PO DAILY Fluoxetine HCl 20 Mg Tablet 20 Mg PO DAILY Acid Director Of Services (FAMOTIDINE) (Famotidine) 20 Mg Tablet 20 Mg PO BID Diclofenac Sodium 100 Gm Gel..gram. TOP TID PRN Atorvastatin Calcium 40 Mg Tablet 40 Mg PO DAILY Vitamin D3 (Cholecalciferol (Vitamin D3)) 5,000 Unit Capsule 5,000 Unit PO DAILY Fish Oil 1,000 mg Capsule ([place] 3 Polyunsat Fatty Acids) 1,000 Mg Cap 1,000 Mg PO DAILY Januvia (Sitagliptin Phosphate) 100 Mg Tablet 100 Mg PO DAILY Magnesium Oxide 400 Mg Tablet 400 Mg PO DAILY Duloxetine HCl 60 Mg Capsule.dr 60 Mg PO DAILY Combivent Respimat Inhal [place] (Albuterol/Ipratropium) 4 Gm Aero 2 Puff IH Q4H PRN Amlodipine Besylate 10 Mg Tablet 10 Mg PO DAILY Lisinopril 20 Mg Tablet 20 Mg PO DAILY Assessment/Pt DC Instructions See above Discharge Diet: ADA Diet Discharge Physical Examination Allergies: Coded Allergies: No Known Drug Allergies (Unverified , 11/16/18) General Appearance: No Apparent Distress, WD/WN Cardiovascular: Regular Rate, Rhythm, No Murmur Neurologic/Psychiatric: Alert, Normal Mood/Affect Discharge Summary Date of Admission Jan 04, 2019 at 19:07 Date of Discharge Discharge Date: Jan 10, 2019 Admission Diagnosis Assessment: Enterocutaneous fistula wound infection Obesity COPD BRAYAN DM Plan: Home meds Pain control Discharge Diagnosis (1) Enterocutaneous fistula Status: Acute (2) Abdominal wound (3) BRAYAN treated with BiPAP Status: Chronic (4) Obesity hypoventilation syndrome Status: Chronic (5) Smoker Status: Chronic (6) Surgical wound present Status: Acute (7) Myopathy (8) Debility Status: Acute (9) Diabetes mellitus, type 2 Status: Chronic Clinical Quality Measures DVT/VTE Risk/Contraindication: Risk Factor Score Per Nursin RFS Level Per Nursing on Admit: 4+=Very High DAVE VENTURA MD Jan 10, 2019 12:12
[2019-01-10 12:21] VITALS: BP 125/76
--- NOTE | 2019-01-10 12:46 | NUR ---
RD ASSESSMENT PMHx: T2DM, CAD, HLD, Hypercholesterolemia, Sepsis PT INTERACTION: Pt was awake and pleasant during nutrition assessment. Pt states current appetite is pretty good and has been for the past few weeks. Pt states no issues with n/v at this time. Pt states no issues with constipation or diarrhea, but has had some loose stools recently. Note last BM was 01/09. Upon visual exam, pt appears well-nourished with BMI of 50. Pt states recent 23# weight loss which she attributes to intubation. Note unable to determine recent wt hx, per chart review. Pt states current management of DM was good until present illness. ABNORMAL NUTRITION-RELATED LAB VALUES: glu 113 (H); Hgb 10.8 (L); Hct 34 (L) Est. kcal needs: 4187-1791 kcal (15-18 kcal/kg) Est. Pro needs: 102-127 g Pro (0.8-1.0 g Pro/kg) PES STATEMENT: Inadequate protein intake related to Increased protein needs as evidenced by Wounds (abd) INTERVENTION: Continue with current diet order of CHO 60g/m 3snack. Pt may benefit from nutritional supplementation to meet protein needs. Add Ensure Enlive (alisha) to meals BID. Provides 350 kcal and 20 g Pro per serving. MONITOR/EVALUATE: PO Intake Weight Status Hydration Status Wounds Lab Values Burton Jacob, MS, RD [phone]
--- NOTE | 2019-01-10 13:17 | NUR ---
CM/SS discharge information sent to V.
[2019-01-10 15:15] VITALS: BP 125/76
--- NOTE | 2019-01-16 12:48 | Physician Query Clarification ---
PQ-Conflicting Diagnosis Admission/Discharge Admission Date: Jan 04, 2019 at 19:07 Discharge Date: Jan 10, 2019 at 15:15 The medical record reflects the following clinical scenario: History/Risk Factors: Fistula Clinical Findings: skin yeast, UTI, fever, tachy Treatment: Zosyn Question: Do you agree with the impression of the SEPSIS per Dr. Diaz and Dr Conrad. Please document a response in Progress Note or Discharge Summary. 1. Yes 2. No 3. Other, with explanation of clinical findings 4. Clinically undetermined, no explanation for clinical findings. PHYSICIAN RESPONSE Do you agree w/Consulting Dx?: Yes Please remember a lack of response to the above will prompt a phone page by CDI/Coding staff. In responding to this query, please exercise your independent professional judgment. The purpose of this communication is to more accurately reflect the complexity of your patients condition. The fact that a question is asked does not imply that any particular answer is desired or expected. Thank you for your timely response to this clarification. Requestors name: Jessica Carmona Phone # [phone] THIS PHYSICIAN QUERY FORM IS A PERMANENT PART OF THE MEDICAL RECORD JESSICA CAMARENA Jan 16, 2019 12:48 DAVE VENTURA MD Jan 16, 2019 14:21
== END 2019-01-10 15:15 | DRG 872 ==
LOC: EDUNIT# 17:20 → ER 17:22 → 4TH 19:07
PROVIDERS: ADMIT Internal Medicine; ATTEND Family Medicine
DX: A41.9 Sepsis, unspecified organism (principal); K63.2 Fistula of intestine; L03.311 Cellulitis of abdominal wall; E66.2 Morbid (severe) obesity with alveolar hypoventilation; N39.0 Urinary tract infection, site not specified; Z68.43 Body mass index [BMI] 50.0-59.9, adult; I13.0 Hypertensive heart and chronic kidney disease with heart failure and stage 1 through stage 4 chronic kidney disease, or unspecified chronic kidney disease; I50.9 Heart failure, unspecified; N18.3 Chronic kidney disease, stage 3 (moderate); Z16.21 Resistance to vancomycin; B37.2 Candidiasis of skin and nail; J43.9 Emphysema, unspecified; I25.10 Atherosclerotic heart disease of native coronary artery without angina pectoris; E78.00 Pure hypercholesterolemia, unspecified; E11.40 Type 2 diabetes mellitus with diabetic neuropathy, unspecified; K59.09 Other constipation; K57.90 Diverticulosis of intestine, part unspecified, without perforation or abscess without bleeding; M19.91 Primary osteoarthritis, unspecified site; M79.7 Fibromyalgia; H91.90 Unspecified hearing loss, unspecified ear; B96.20 Unspecified Escherichia coli [E. coli] as the cause of diseases classified elsewhere; F32.9 Major depressive disorder, single episode, unspecified; B95.2 Enterococcus as the cause of diseases classified elsewhere; G72.9 Myopathy, unspecified; M54.10 Radiculopathy, site unspecified; F17.210 Nicotine dependence, cigarettes, uncomplicated; Z79.4 Long term (current) use of insulin; Z87.19 Personal history of other diseases of the digestive system; Z87.442 Personal history of urinary calculi
CPT/HCPCS: 36415; 71045; 80053; 81000; 82962; 83605; 85025; 85610; 85730; 86141; 87040; 87077; 87088; 87186; 87804; 94640; 94760; 96361; 96365

== ENCOUNTER → 2019-05-01 | Outpatient (CLI) | payer MEDICAID ==
[~2019-05-01] MED LIST changes: +AMOX-358 PO; +DICL100G31 TOP; +FAMO20TA3 PO; +FLUC150T2 PO; -FLUO20CA25 PO; +FLUO20CA45 PO; +FLUO20TA28 PO; +LINE600T12 PO; -MAGN400T6 PO; +MAGN400T8 PO; -MORP-34 PO; +MORP-69 PO; +NYST15CR TOP; +POTA10TA10 PO; -TRAM50TA2 PO; +TRM50T PO
== END ==
LOC: WOUNDCARE 08:02
PROVIDERS: ATTEND Preventive Medicine Undersea and Hyperbaric Medicine
DX: T81.32XA Disruption of internal operation (surgical) wound, not elsewhere classified, initial encounter (principal); J44.9 Chronic obstructive pulmonary disease, unspecified
CPT/HCPCS: 11042

== ENCOUNTER → 2019-05-16 | Outpatient (CLI) | payer MEDICAID | LOC: WOUNDCARE 11:29 | PROVIDERS: ATTEND Orthopaedic Surgery Hand Surgery | DX: T81.32XA Disruption of internal operation (surgical) wound, not elsewhere classified, initial encounter (principal); J44.9 Chronic obstructive pulmonary disease, unspecified; L98.492 Non-pressure chronic ulcer of skin of other sites with fat layer exposed; L92.9 Granulomatous disorder of the skin and subcutaneous tissue, unspecified | CPT/HCPCS: 17250 ==

== ENCOUNTER → 2019-05-23 | Outpatient (CLI) | payer MEDICAID | LOC: WOUNDCARE 10:02 | PROVIDERS: ATTEND Orthopaedic Surgery Hand Surgery | DX: T81.32XA Disruption of internal operation (surgical) wound, not elsewhere classified, initial encounter (principal); J44.9 Chronic obstructive pulmonary disease, unspecified; L98.492 Non-pressure chronic ulcer of skin of other sites with fat layer exposed; L92.9 Granulomatous disorder of the skin and subcutaneous tissue, unspecified | CPT/HCPCS: 17250 ==

== ENCOUNTER → 2019-05-30 | Outpatient (CLI) | payer MEDICAID | LOC: WOUNDCARE 10:02 | PROVIDERS: ATTEND Orthopaedic Surgery Hand Surgery | DX: T81.32XA Disruption of internal operation (surgical) wound, not elsewhere classified, initial encounter (principal); J44.9 Chronic obstructive pulmonary disease, unspecified; L98.492 Non-pressure chronic ulcer of skin of other sites with fat layer exposed; L92.9 Granulomatous disorder of the skin and subcutaneous tissue, unspecified | CPT/HCPCS: 11042 ==

== ENCOUNTER → 2019-06-07 | Outpatient (CLI) | payer MEDICAID ==
[~2019-06-07] MED LIST changes: -FLUO20CA45 PO; +FLUO20CA46 PO
== END ==
LOC: WOUNDCARE 10:18
PROVIDERS: ATTEND Orthopaedic Surgery Hand Surgery
DX: T81.31XA Disruption of external operation (surgical) wound, not elsewhere classified, initial encounter (principal); J44.9 Chronic obstructive pulmonary disease, unspecified; L98.492 Non-pressure chronic ulcer of skin of other sites with fat layer exposed; L92.9 Granulomatous disorder of the skin and subcutaneous tissue, unspecified
CPT/HCPCS: 11042

== ENCOUNTER → 2019-06-13 | Outpatient (CLI) | payer MEDICAID ==
[~2019-06-13] MED LIST changes: +HYDR-34 PO; -HYDR-3816 PO
== END ==
LOC: WOUNDCARE 11:28
PROVIDERS: ATTEND Surgery
DX: I96 Gangrene, not elsewhere classified (principal); L98.492 Non-pressure chronic ulcer of skin of other sites with fat layer exposed; T81.31XA Disruption of external operation (surgical) wound, not elsewhere classified, initial encounter; J44.9 Chronic obstructive pulmonary disease, unspecified; T81.42XA Infection following a procedure, deep incisional surgical site, initial encounter
CPT/HCPCS: 99213

== ENCOUNTER 2019-09-05 09:06 | Outpatient (RCR) | payer MEDICAID ==
[~2019-09-05 09:06] MED LIST changes: +CALC-250 PO
== END 2019-09-05 15:49 | disposition home or self-care (01) ==
LOC: PREOP 09:06
PROVIDERS: ATTEND Specialist
DX: Z01.818 Encounter for other preprocedural examination (principal); Z11.59 Encounter for screening for other viral diseases
CPT/HCPCS: 87635

== ENCOUNTER 2019-09-15 09:49 | Day surgery (SDC) | payer MEDICAID ==
[~2019-09-15] VITALS: Ht 162.6 cm; Wt 127.9 kg
[2019-09-15 10:00] VITALS: BP 112/55
[2019-09-15] MEDS ORDERED: MOXIFLOXACIN OPHTH SOLN 5 MG/ML 0.3 ML SYRINGE OP ONE (10:00)
[2019-09-15] MEDS ORDERED: POVIDONE (BETADINE) OPHTH SOLN 5% 30 ML OP ONE (10:00)
[2019-09-15] MEDS ORDERED: LIDOCAINE PF 1% 2 ML VIAL IR PRN (10:00)
[2019-09-15] MEDS ORDERED: TIMOLOL MALEATE 0.5% 5 ML (TIMOPTIC) BTL OU PRN (10:00)
[2019-09-15] MEDS: TETRACAINE 0.5% OPHTH SOLN 4 ML BTL (SINGLE DOSE ONLY) OU PRN ×4 (10:08→10:27)
[2019-09-15] MEDS: PHENYLEPHRINE 10% OPHTH (NEO-SYN) 5 ML BTL OU SCH ×3 (10:17→10:27)
[2019-09-15] MEDS: CYCLOPENTOLATE 1% (CYCLOGYL) 2 ML DROPS OP SCH ×3 (10:17→10:27)
[2019-09-15] MEDS ORDERED: MIDAZOLAM 2 MG/2 ML (VERSED) VIAL ONE (10:19)
--- NOTE | 2019-09-15 11:07 | Ophthalmologist Pre-Op Note ---
Pre-Operative Progress Note H&P Reviewed The H&P was reviewed, patient examined and no changes noted. Date H&P Reviewed: Sep 15, 2019 Time H&P Reviewed: 11:06 Pre-Op Dx Cataract, Right Eye JN SKINNER MD Sep 15, 2019 11:07
[2019-09-15] MEDS ORDERED: acetaZOLAMIDE ER 500 MG CAP (DIAMOX SEQUELS) PO ONE (11:30)
--- NOTE | 2019-09-15 11:32 | Ophthalmology Operative Report ---
Cataract removal/placement IOL PREOPERATIVE DIAGNOSIS: Cataract Right Eye POSTOPERATIVE DIAGNOSIS: Cataract Right Eye PROCEDURE: Cataract removal and placement of posterior chamber implant, right eye SURGEON: Russ Skinner ANESTHESIA: Topical with sedation COMPLICATIONS: None ESTIMATED BLOOD LOSS: Minimal DESCRIPTION OF PROCEDURE: After proper informed consent was obtained, the patient, a 63 female, was taken to the Operating Room and the right eye was anesthetized with tetracaine. The right eye was then prepped and draped in the usual manner. A wire lid speculum was placed. A paracentesis was made at the left hand position. Preservative free lidocaine was injected into the anterior chamber followed by viscoelastic. A clear corneal incision was made in the temporal position. A capsulorrhexis was preformed and the central nuclear and cortical material were removed. The posterior capsule was polished and [place] 13.5 AU00T0 IOL was placed into the capsular bag. The residual viscoelastic was aspirated and balanced saline solution was injected into the anterior chamber. Moxifloxacin was injected into the anterior chamber. The wound was checked and found to be water tight. The patient tolerated the procedure well without complications. RUSS SKINNER MD Sep 15, 2019 11:32
[2019-09-15 11:40] VITALS: BP 103/61
--- NOTE | 2019-09-15 12:28 | Anesthesia-General Post-Op ---
MAC Patient Condition Mental Status/LOC: Same as Preop Cardiovascular: Satisfactory Nausea/Vomiting: Absent Respiratory: Satisfactory Pain: Controlled Complications: Absent Post Op Complications Complications None Follow Up Care/Instructions Patient Instructions None needed. Anesthesiology Discharge Order Discharge Order Patient is doing well, no complaints, stable vital signs, no apparent adverse anesthesia problems. No complications reported per nursing. KONRAD BUSTILLO CRNA Sep 15, 2019 12:28
--- OUTSIDE RECORDS SUMMARY | 2019-09-15 15:07 | XMS REPORT | Clinical Summary ---
Author Author [facility] Organization [facility] Address Unknown Phone Unavailable Care Team Providers Care Sharepoint Solutions Architect Name Role Phone Self, Cassius TOBIN PCP Source Comments Some departments are not documenting in the electronic medical record. If you d o not see the information that you expected, contact Release of Information in [facility] Health Information Management department at [phone] for further assistan ce in locating additional records.[facility] Allergies Not on File Medications Not on [...] Health Maintenance Due Date Last Done Comments HIV SCREENING 1969 DTAP/TDAP VACCINES (1 - 1972 Tdap) HEPATITIS C SCREENING 1972 PHYSICAL (COMPREHENSIVE) 1972 EXAM CERVICAL CANCER SCREENING 11/05/1975 BREAST CANCER SCREENING 1994 COLORECTAL CANCER 2004 SCREENING SHINGLES RECOMBINANT 2004 VACCINE (1 of 2) INFLUENZA VACCINE 01/11/2020 Results Not on filefrom Last 3 Months
--- OUTSIDE RECORDS SUMMARY | 2019-09-15 15:10 | XMS REPORT | Continuity of Care Document ---
Author Organization Unknown Address Unknown Phone Unavailable Allergies There is no data. Medications There is no data. Problems There is no data. Procedures There is no data. Results Test Result Range CMP - 08/18/18 11:05 GLUCOSE 185 mg/dL 65-99 UREA NITROGEN (BUN) 18 mg/dL 7-25 CREATININE 0.94 mg/dL 0.50-0.99 eGFR NON-AFR. CITIZEN OF [place] 65 mL/min/1.73m2 > OR = 60 eGFR 75 mL/min/1.73m2 > OR = 60 BUN/CREATININE RATIO NOT APPLICABLE (calc) 6-22 SODIUM 140 mmol/L 135-146 POTASSIUM 4.5 mmol/L 3.5-5.3 CHLORIDE 101 mmol/L 98-110 CARBON DIOXIDE 28 mmol/L 20-32 CALCIUM 9.4 mg/dL 8.6-10.4 PROTEIN, TOTAL 7.4 g/dL 6.1-8.1 ALBUMIN 4.2 g/dL 3.6-5.1 GLOBULIN 3.2 g/dL (calc) 1.9-3.7 ALBUMIN/GLOBULIN RATIO 1.3 (calc) 1.0-2. 5 BILIRUBIN, TOTAL 0.5 mg/dL 0.2-1.2 ALKALINE PHOSPHATASE 56 U/L 33-130 AST 12 U/L 10-35 ALT 9 U/L 6-29 TSH - 08/18/18 11:05 TSH 1.29 mIU/L 0.40-4.50 Encounters ACCT No. Visit Date/Time Discharge Status Pt. Type Provider Facility Loc./Unit Complaint [id number] 02/14/2019 08:20:00 02/14/2019 23:59:5 9 CLS Outpatient [facility] [id number] 08/18/2018 11:00:00 Document Registration
== END 2019-09-15 11:40 | disposition home or self-care (01) ==
LOC: SDC 09:49
PROVIDERS: ATTEND Specialist
DX: E11.36 Type 2 diabetes mellitus with diabetic cataract (principal); H25.11 Age-related nuclear cataract, right eye; I10 Essential (primary) hypertension; I25.10 Atherosclerotic heart disease of native coronary artery without angina pectoris; J43.9 Emphysema, unspecified; E11.40 Type 2 diabetes mellitus with diabetic neuropathy, unspecified; M19.90 Unspecified osteoarthritis, unspecified site; E78.00 Pure hypercholesterolemia, unspecified; I25.2 Old myocardial infarction; F32.9 Major depressive disorder, single episode, unspecified; Z79.4 Long term (current) use of insulin; Z79.899 Other long term (current) drug therapy; Z90.89 Acquired absence of other organs; Z87.891 Personal history of nicotine dependence

== ENCOUNTER 2019-10-16 17:30 | Emergency (ER) | payer MEDICARE, MEDICAID ==
[~2019-10-16] VITALS: Ht 160 cm; Wt 129.0 kg
--- NOTE | 2019-10-16 17:51 | ED Integumentary General ---
General Stated Complaint: WOUND Source: patient, EMS Exam Limitations: no limitations History of Present Illness Date Seen by Provider: Oct 16, 2019 Time Seen by Provider: 17:48 Initial Comments To ER by EMS with reports of an abdominal wound since her laparoscopic hernia repair in November 2018. She's had chronic drainage and a wound from the umbilical incision since then. She has not followed up with primary care about this, nor has she seen the surgeon who did the surgery. She comes in today because her friend who is a nurse's aide told her it was a staph infection. She denies fevers nausea vomiting diarrhea or abdominal pain. Timing/Duration: other (nearly 1 year) Severity: moderate Associated Symptoms: denies symptoms Allergies and Home Medications Allergies Coded Allergies: No Known Drug Allergies (Unverified , 11/16/18) Home Medications Albuterol/Ipratropium 4 Gm Aero, 2 PUFF IH Q4H PRN for SHORTNESS OF BREATH, (Reported) Amlodipine Besylate 10 Mg Tablet, 10 MG PO DAILY, (Reported) Atorvastatin Calcium 40 Mg Tablet, 40 MG PO DAILY, (Reported) Cholecalciferol (Vitamin D3) 125 Mcg Tablet, 125 MCG PO DAILY, (Reported) Diclofenac Sodium 100 Gm Gel..gram., TOP TID PRN for PAIN-MILD, (Reported) Duloxetine HCl 60 Mg Capsule.dr, 60 MG PO DAILY, (Reported) Famotidine 20 Mg Tablet, 20 MG PO BID, (Reported) Fluoxetine HCl 20 Mg Tablet, 20 MG PO DAILY, (Reported) Fluticasone/Salmeterol 12 Gm Hfa.aer.ad, 1 PUFF IH BID, (Reported) Furosemide 20 Mg Tablet, 20 MG PO DAILY, (Reported) Insulin Detemir 100 Unit/1 Ml Insuln.pen, 12 UNIT SQ BID, (Reported) Lisinopril 20 Mg Tablet, 20 MG PO DAILY, (Reported) Magnesium Oxide 400 Mg Tablet, 400 MG PO DAILY, (Reported) Metoprolol Tartrate 25 Mg Tablet, 25 MG PO TID, (Reported) [place] 3 Polyunsat Fatty Acids 1,000 Mg Cap, 1,000 MG PO DAILY, (Reported) Potassium Chloride 10 Meq Tablet.er, 10 MEQ PO BID, (Reported) Sitagliptin Phosphate 100 Mg Tablet, 100 MG PO DAILY, (Reported) Patient Home Medication List Home Medication List Reviewed: Yes Review of Systems Review of Systems Constitutional: see HPI EENTM: see HPI Respiratory: no symptoms reported Cardiovascular: no symptoms reported Genitourinary: no symptoms reported Musculoskeletal: see HPI Skin: no symptoms reported Psychiatric/Neurological: No Symptoms Reported Endocrine: No Symptoms Reported Past Vrsaspo-Suxttq-Mckhbv Hx Patient Social History Drug of Choice: cannibus- past Type Used: Cigarettes Former Smoker, Quit: Nov 17, 2018 2nd Hand Smoke Exposure: Yes Recent Hopitalizations: Yes (discharged 12/24/18 - hernia repair ) Immunizations Up To Date Tetanus Booster (TDap): More than 5yrs Date of Pneumonia Vaccine: Apr 12, 2013 Date of Influenza Vaccine: Jan 17, 2018 Seasonal Allergies Seasonal Allergies: No Past Medical History Surgeries: Yes Abdominal, Bowel Surgery, Section, Eye Surgery, Hysterectomy, Oophorectomy, Orthopedic, Tonsillectomy, Tubal Ligation Respiratory: Yes Sleep Apnea, COPD, Emphysema Currently Using CPAP: No Currently Using BIPAP: Yes Cardiac: Yes Coronary Artery Disease, High Cholesterol, Hypertension Neurological: Yes (chronic numbness rt proximal lateral thigh.) Neuropathy 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 Disorders: Yes (BENIGN OVARIAN TUMOR) Female 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 Disorders: Denies 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: Hysterectomy, Tubal Ligation, Menopausal Sexually Transmitted Disease: No HIV/AIDS: No Genitourinary: Yes (STAGE 3 KIDNEY FAILURE) Kidney Stones, Renal Failure Gastrointestinal: Yes (Abdominal wall fistula) Abdominal Hernia, Chronic Constipation, Diverticulosis, C-Diff Musculoskeletal: Yes Degenerate Disk Disease, Arthritis, Fibromyalgia, Chronic Back Pain Endocrine: Yes (MORBID OBESITY) Diabetes, Non-Insulin dep HEENT: No (GLASSES, DENTURES) Loss of Vision: Denies Hearing Impairment: Hard of Hearing Cancer: No Psychosocial: Yes Depression Integumentary: No Blood Disorders: No Adverse Reaction/Blood Tranf: No (N/A) Family Medical History Arthritis 19 FATHER Cardiovascular disease 19 FATHER Completed stroke 19 MOTHER Diabetes mellitus 19 FATHER Hypertension 19 FATHER G8 SISTER Myocardial infarction 19 FATHER Respiratory disorder 19 MOTHER No Pertinent Family Hx Physical Exam Vital Signs Vital Signs - First Documented 10/16/19 17:30 Temp 37.7 Pulse 75 Resp 18 B/P (MAP) 122/74 (90) Pulse Ox 94 O2 Delivery Nasal Cannula O2 Flow Rate 2.00 Capillary Refill : General Appearance: WD/WN, no apparent distress, obese, other HEENT: PERRL/EOMI, normal ENT inspection Respiratory: no respiratory distress, no accessory muscle use Neurologic/Psychiatric: alert, normal mood/affect, oriented x 3 Skin: normal color, warm/dry, other (umbilical area has some hypertrophy of erythematous tissue which looks like perhaps a pyogenic granuloma. Beneath the pannus is erythema and maceration. There is some purulent drainage from the umbilicus. Culture was collected. There is some surrounding superficial erythema which appears to be a candidal infection) Skin Problem Character: other Procedures/Interventions Date of ETT Placement: Nov 20, 2018 Time of ETT Placement: 1505 Progress/Results/Core Measures Results/Orders Lab Results Laboratory Tests Test 10/16/19 17:50 Range/Units White Blood Count 11.3 H 4.3-11.0 10^3/uL Red Blood Count 4.51 4.35-5.85 10^6/uL Hemoglobin 12.3 11.5-16.0 G/DL Hematocrit 39 35-52 % Mean Corpuscular Volume 86 80-99 FL Mean Corpuscular Hemoglobin 27 25-34 PG Mean Corpuscular Hemoglobin Concent 32 32-36 G/DL Red Cell Distribution Width 15.2 H 10.0-14.5 % Platelet Count 257 130-400 10^3/uL Mean Platelet Volume 10.1 7.4-10.4 FL Neutrophils (%) (Auto) 67 42-75 % Lymphocytes (%) (Auto) 23 12-44 % Monocytes (%) (Auto) 8 0-12 % Eosinophils (%) (Auto) 1 0-10 % Basophils (%) (Auto) 0 0-10 % Neutrophils # (Auto) 7.6 1.8-7.8 X 10^3 Lymphocytes # (Auto) 2.6 1.0-4.0 X 10^3 Monocytes # (Auto) 0.9 0.0-1.0 X 10^3 Eosinophils # (Auto) 0.2 0.0-0.3 10^3/uL Basophils # (Auto) 0.0 0.0-0.1 10^3/uL Sodium Level 141 135-145 MMOL/L Potassium Level 3.7 3.6-5.0 MMOL/L Chloride Level 102 98-107 MMOL/L Carbon Dioxide Level 25 21-32 MMOL/L Anion Gap 14 5-14 MMOL/L Blood Urea Nitrogen 15 7-18 MG/DL Creatinine 1.05 0.60-1.30 MG/DL Estimat Glomerular Filtration Rate 53 BUN/Creatinine Ratio 14 Glucose Level 118 H 70-105 MG/DL Calcium Level 9.1 8.5-10.1 MG/DL Corrected Calcium 9.1 8.5-10.1 MG/DL Total Bilirubin 0.6 0.1-1.0 MG/DL Aspartate Amino Transf (AST/SGOT) 11 5-34 U/L Alanine Aminotransferase (ALT/SGPT) 9 0-55 U/L Alkaline Phosphatase 66 40-136 U/L Total Protein 7.5 6.4-8.2 GM/DL Albumin 4.0 3.2-4.5 GM/DL My Orders Orders - JASON PALMER APRN Cbc With Automated Diff (10/16/19 17:42) Comprehensive Metabolic Panel (10/16/19 17:42) Ed Iv/Invasive Line Start (10/16/19 17:42) Ct Abdomen/Pelvis W (10/16/19 17:42) Wound Culture (10/16/19 17:45) Iohexol Injection (Omnipaque 350 Mg/Ml 1 (10/16/19 19:00) Received Contrast (Hold Metformin- Contr (10/16/19 19:00) Ns (Ivpb) (Sodium Chloride 0.9% Ivpb Bag (10/16/19 19:00) Medications Given in ED Current Medications Medications Dose Ordered Sig/Gracie Route Start Time Stop Time Status Last Admin Dose Admin Iohexol 100 ml ONCE ONCE IV 10/16/19 19:00 10/16/19 19:01 DC 10/16/19 20:30 100 ML Sodium Chloride 100 ml ONCE ONCE IV 10/16/19 19:00 10/16/19 19:01 DC 10/16/19 20:31 100 ML Vital Signs/I&O 10/16/19 17:30 Temp 37.7 Pulse 75 Resp 18 B/P (MAP) 122/74 (90) Pulse Ox 94 O2 Delivery Nasal Cannula O2 Flow Rate 2.00 Departure Impression Primary Impression: Soft tissue infection Disposition: 01 HOME, SELF-CARE Condition: Stable Departure-Patient Inst. Decision time for Depature: 21:03 Referrals: [facility] (PCP/Family) Primary Care Physician TOMAS MAE BRETT D DO KIDO, TAKAAKI MD Patient Instructions: Skin Abscess Add. Discharge Instructions: Follow-up with Dr. Olvera or one of the surgeons listed. Antibiotics as directed. Return to ER for any concerns. Scripts Levofloxacin (Levaquin) 750 Mg Tablet 750 MG PO DAILY, #7 TAB Prov: JASON PALMER APRN 10/16/19 Nystatin (Nystatin) 15 Gm Cream..g. 15 GM TP TID for 10 Days, #1 TUBE Prov: JASON PALMER APRN 10/16/19 JASON PALMER APRN Oct 16, 2019 17:50
[2019-10-16 18:23] LABS: BASOPHILS % (AUTO) 0 % (0-10); EOSINOPHILS # (AUTO) 0.2 10^3/uL (0.0-0.3); EOSINOPHILS % (AUTO) 1 % (0-10); HEMATOCRIT 39 % (35-52); HEMOGLOBIN 12.3 G/DL (11.5-16.0); LYMPHOCYTES # (AUTO) 2.6 X 10^3 (1.0-4.0); LYMPHOCYTES % (AUTO) 23 % (12-44); MEAN CORPUSCULAR HEMOGLOBIN 27 PG (25-34); MEAN CORPUSCULAR HGB CONC 32 G/DL (32-36); MEAN CORPUSCULAR VOLUME 86 FL (80-99); MEAN PLATELET VOLUME 10.1 FL (7.4-10.4); MONOCYTES # (AUTO) 0.9 X 10^3 (0.0-1.0); MONOCYTES % (AUTO) 8 % (0-12); NEUTROPHILS # (AUTO) 7.6 X 10^3 (1.8-7.8); NEUTROPHILS % (AUTO) 67 % (42-75); PLATELET COUNT 257 10^3/uL (130-400); RED CELL DISTRIBUTION WIDTH 15.2 % (10.0-14.5); WHITE BLOOD COUNT 11.3 10^3/uL (4.3-11.0)
[2019-10-16 18:36] LABS: POTASSIUM 3.7 MMOL/L (3.6-5.0)
[2019-10-16 18:37] LABS: CALCIUM 9.1 MG/DL (8.5-10.1)
[2019-10-16 18:39] LABS: TOTAL PROTEIN 7.5 GM/DL (6.4-8.2)
[2019-10-16 18:40] LABS: BILIRUBIN,TOTAL 0.6 MG/DL (0.1-1.0)
--- OUTSIDE RECORDS SUMMARY | 2019-10-16 18:41 | XMS REPORT | Clinical Summary ---
Author Author [facility] Organization [facility] Address Unknown Phone Unavailable Care Team Providers Care Cat Scan Tech Name Role Phone Wendy Olvera MD [address] Tiffanie Churchill NP PCP Source Comments Some departments are not documenting in the electronic medical record. If you d o not see the information that you expected, contact Release of Information in [facility] Information Management department at [phone] for further assistan ce in locating additional records.[facility] Allergies Not on File Medications Not on file Active Problems Not on file Encounters Care Team Description Date Type Specialty Viri Judge New Patient 09/26/2019 Telephone Oncology from Last 3 Months Social History Date Tobacco Use Types Packs/Day [...] Done Comments HIV SCREENING 1969 DTAP/TDAP VACCINES ( - 1972 Tdap) HEPATITIS C SCREENING 1972 PHYSICAL (COMPREHENSIVE) 1972 EXAM CERVICAL CANCER SCREENING 11/05/1975 BREAST CANCER SCREENING 1994 COLORECTAL CANCER 2004 SCREENING SHINGLES RECOMBINANT 2004 VACCINE (1 of 2) INFLUENZA VACCINE 01/11/2020 Results Not on filefrom Last 3 Months Insurance Type Payer Benefit Subscriber ID Effective Phone Address Plan / Dates Group [employer]ETNA MEDICAID AETNA xxxxxxxxxxx 2018-P [facility] Advance Directives Patient Transformer Molder Explanation Type Date Recorded Advance Directive/DPOA
[2019-10-16 18:42] LABS: CREATININE SERUM 1.05 MG/DL (0.60-1.30)
--- OUTSIDE RECORDS SUMMARY | 2019-10-16 18:42 | XMS REPORT | Encounter Summary ---
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 documented as of this encounter Miscellaneous Notes * Telephone Encounter - Viri Judge - 09/26/2019 2:07 PM CDT Records hx to prepare for an appt with Colorectal Surgery. Referring: Dr. 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 Currently with wound drainage with odor, red knot the size of a blueb erry: h/o wound vac, antibiotics, wound care. Verbal records hx from pt: GI Testing: Approx 3 colonoscopies in lifetime. Approx 2008 - colonoscopy at [place], [place] Approx - colonoscopy at [place], [place] Approx - colonoscopy by Dr Solorzano at [facility] [place] Surgery: Age 13 - appendix removal - ruptured 1969's 2 c-sections 1969's Tubal ligation 2003 - Partial hysterectomy, fibroid tumor removal weighed 14.5 lb. At [place], [place] Between [id number] - Ventral Abdominal Incisional hernia repair x2 by Dr. Braulio acevedo at [place], [place] 2011 - LAR for diverticulitis at [place], [place] Nov, 2018 - ventral abdominal incisional hernia repair with mesh by Dr. Olvera at [place], [place]. Surgeon tried to tell pt it was a fistula. Pt heard on the unit that her colon was nicked. intubated for 9 days. Wound vac, antibiotics, wound care. Mild heart attack, lung collapse. prison for 2mos. Rehab for 2mos. Radiology: [place], [place] MRI a/p at [facility], [place], [place] documented in this encounter Plan of Treatment Not on filedocumented as of this encounter Visit Diagnoses Not on filedocumented in this encounter
--- OUTSIDE RECORDS SUMMARY | 2019-10-16 18:42 | XMS REPORT | Continuity of Care Document ---
Author Organization Unknown Address Unknown Phone Unavailable Allergies There is no data. Medications There is no data. Problems There is no data. Procedures There is no data. Results Test Result Range CMP - 08/18/18 11:05 GLUCOSE 185 mg/dL 65-99 UREA NITROGEN (BUN) 18 mg/dL 7-25 CREATININE 0.94 mg/dL 0.50-0.99 eGFR NON-AFR. IRAQI 65 mL/min/1.73m2 > OR = 60 eGFR [...] Status Pt. Type Provider Facility Loc./Unit Complaint [id number] 02/14/2019 08:20:00 02/14/2019 23:59:5 9 CLS Outpatient [facility] [id number] 08/18/2018 11:00:00 Document Registration
[2019-10-16] MEDS ORDERED: HOLD METFORMIN - RECEIVED CONTRAST 20 ML VIAL IV SCH (19:00)
[2019-10-16] MEDS ORDERED: IOHEXOL 350 MG/ML 100 ML (OMNIPAQUE 350) VIAL IV ONE (19:00)
[2019-10-16] MEDS ORDERED: NS 100 ML (IVPB) BAG IV ONE (19:00)
--- NOTE | 2019-10-16 20:43 | Diagnostic Imaging Report ---
PROCEDURE: CT abdomen and pelvis with contrast. TECHNIQUE: Multiple contiguous axial images were obtained through the abdomen and pelvis after administration of intravenous contrast. Auto Exposure Controls were utilized during the CT exam to meet ALARA standards for radiation dose reduction. INDICATION: Abdominal wall pain, hernia. COMPARISON: 12/26/2018 FINDINGS: Again seen is an umbilical hernia containing a loop of small bowel. There is no overt obstruction. The size of the hernia sac is approximately 3 cm. There is some scarring in the periphery involving the abdominal wall proper. However, there is no abscess, free air or free fluid. No wound dehiscence identified. There is new and/or increasing left-sided hydronephrosis. There is a kidney stone in the left renal pelvis which measures 2 cm. This is increased in size compared to the previous examination. The lung bases are clear. The gallbladder, liver and right kidney are stable. Nonobstructive stone is seen in the mid to inferior pole. Vascular structures, urinary bladder are intact. The uterus is surgically absent. No inflammatory process is seen within the abdominal cavity. Osseous structures are intact. IMPRESSION: 1. Umbilical hernia containing a loop of small bowel without overt obstruction or abscess. There is some induration of the fat felt to be scarring. No wound dehiscence. 2. Left-sided hydronephrosis with a 2 cm stone in the left renal pelvis. Dictated by: Dictated on workstation # [id number]
[2019-10-16] MEDS ORDERED: LEVO750T9 PO (21:05)
[2019-10-16] MEDS ORDERED: NYST15CR TP (21:05)
[2019-10-16 21:32] VITALS: BP 122/74
== END 2019-10-16 21:45 | disposition home or self-care (01) ==
LOC: ER 17:30 → EDUNIT# 17:30 → ER 21:45
DX: L08.9 Local infection of the skin and subcutaneous tissue, unspecified (principal); J43.9 Emphysema, unspecified; I25.10 Atherosclerotic heart disease of native coronary artery without angina pectoris; I10 Essential (primary) hypertension; E78.00 Pure hypercholesterolemia, unspecified; E11.40 Type 2 diabetes mellitus with diabetic neuropathy, unspecified; E11.22 Type 2 diabetes mellitus with diabetic chronic kidney disease; I12.9 Hypertensive chronic kidney disease with stage 1 through stage 4 chronic kidney disease, or unspecified chronic kidney disease; N18.3 Chronic kidney disease, stage 3 (moderate); E66.01 Morbid (severe) obesity due to excess calories; F32.9 Major depressive disorder, single episode, unspecified; M79.7 Fibromyalgia; G89.29 Other chronic pain; M54.9 Dorsalgia, unspecified; Z79.51 Long term (current) use of inhaled steroids; Z77.22 Contact with and (suspected) exposure to environmental tobacco smoke (acute) (chronic); Z79.4 Long term (current) use of insulin; Z87.891 Personal history of nicotine dependence; Z68.43 Body mass index [BMI] 50.0-59.9, adult; Z82.49 Family history of ischemic heart disease and other diseases of the circulatory system
CPT/HCPCS: 36415; 74177; 80053; 85025; 87070; 87205

== ENCOUNTER → 2020-07-22 | Outpatient (CLI) | payer MEDICARE, MEDICAID ==
[~2020-07-22] MED LIST changes: +AMLO-251 PO; -AMLO10TA7 PO; +BUPR150T24 PO; -BUPR150T7 PO; -CIPR500T4 PO; +CIPR500T5 PO; -GEMF600T8 PO; +GEMF600T88 PO; +LEVO750T9 PO; -LISI-552 PO; +LISI20TA26 PO; -NICO-588 TD; +NICO-685 TD; +NYST15CR TP; -OXYC-465 PO; +OXYC-556 PO
== END | disposition home or self-care (01) ==
LOC: PREOP 05:32
PROVIDERS: ATTEND Surgery
DX: Z01.818 Encounter for other preprocedural examination (principal)

== ENCOUNTER 2020-08-19 05:36 | Outpatient (CLI) | payer MEDICARE, MEDICAID ==
[~2020-08-19] VITALS: Ht 160.2 cm; Wt 122.5 kg
[2020-08-19] MEDS ORDERED: SEMA1PEN3 SQ (12:02)
[2020-08-19] MEDS ORDERED: GBPN600T PO (12:02)
[2020-08-19] MEDS ORDERED: NSTR15C TP (12:04)
[2020-08-19] MEDS ORDERED: POTA10CA43 PO (12:04)
== END 2020-08-19 12:30 | disposition home or self-care (01) ==
LOC: PREOP 05:36
PROVIDERS: ATTEND Surgery
DX: Z01.818 Encounter for other preprocedural examination (principal)

== ENCOUNTER → 2020-08-22 | Outpatient (CLI) | payer MEDICARE, MEDICAID ==
[~2020-08-22] MED LIST changes: +GBPN600T PO; +NSTR15C TP; +POTA10CA43 PO; +SEMA1PEN3 SQ
== END ==
LOC: LAB 11:59
PROVIDERS: ATTEND Surgery
DX: R19.7 Diarrhea, unspecified (principal); Z86.010 Personal history of colon polyps

== ENCOUNTER 2020-08-26 07:54 | Day surgery (SDC) | payer MEDICARE, MEDICAID ==
[~2020-08-26] VITALS: Ht 160 cm; Wt 123.0 kg
[2020-08-26] MEDS ORDERED: LACTATED RINGERS 1,000 ML IV ONE (07:55)
[2020-08-26] MEDS ORDERED: LACTATED RINGERS 1,000 ML IV STA (08:01)
[2020-08-26 08:15] VITALS: BP 149/83
[2020-08-26] MEDS ORDERED: PROPOFOL INJECTION 50 ML IV ONE (08:52)
[2020-08-26 09:55] VITALS: BP 110/62
[2020-08-26 10:05] VITALS: BP 129/72
--- NOTE | 2020-08-26 10:12 | Anesthesia-General Post-Op ---
MAC Patient Condition Mental Status/LOC: Same as Preop Cardiovascular: Satisfactory Nausea/Vomiting: Absent Respiratory: Satisfactory Pain: Controlled Complications: Absent Post Op Complications Complications None Follow Up Care/Instructions Patient Instructions None needed. Anesthesiology Discharge Order Discharge Order Patient is doing well, no complaints, stable vital signs, no apparent adverse anesthesia problems. No complications reported per nursing. KONRAD BUSTILLO CRNA August 26, 2020 10:12
--- NOTE | 2020-08-26 10:24 | Progress Note-Post Operative ---
Post-Operative Progess Note Surgeon (s)/Coffee Shop Manager (s) Surgeon TOMAS MAE DO Coffee Shop Manager: none Pre-Operative Diagnosis Hx of polyps Post-Operative Diagnosis Colon polyp diverticula int hemorrhoids colitis Procedure & Operative Findings Date of Procedure 08/26/20 Procedure Performed/Findings After informed consent was obtained, the patient was brought to the endoscopy suite, placed in bed in left lateral decubitus position. She was administered IV sedation by the TOP SCREW who then monitored her vitals the entire time, heart rate, blood pressure and pulse ox, started with the EGD, placed the scope down and started the colonoscopy. On the way in, noted [divcerticula ], took a picture of this, then pushed all the way to the anastomosis about 150 cm in, took a picture of the this area and then slowly withdrew the scope insufflating to look circumferenti ally at the perez looking at the anastomois and then continued up to the hepatic flexure, down the transverse colon, splenic flexure, into the descending colon. Here I saw a polyp and did a hot biopsy to remove this and then continued down into the sigmoid and finally into the rectum, retroflexed in the rectal vault, saw minimal internal hemorrhoids and took a picture, About 10 cm up past rectal vault I saw what looked like colitis and elected to do a biopsy of this and then removed the scope. The patient tolerated the procedure. She was recovered in endoscopy suite. Anesthesia Type IV sedation by TOP SCREW Estimated Blood Loss Estimated blood loss (mL): scant Specimens/Packing Specimens Removed desc colono polyp colon bx TOMAS MAE DO August 26, 2020 10:24
--- NOTE | 2020-08-26 10:25 | Endoscopy Discharge Instruct ---
Endo Procedure/Findings Findings 1.: Polyp 2.: Diverticulosis 3.: Internal Hemorrhoids 4.: Colitis Discharge Instructions - Activity: You might feel a little sleepy until tomorrow. This is due to the medicine you received to relax you. Until tomorrow, you should: NOT drive a car, operate machinery or power tools. NOT drink any alcoholic beverages. NOT make any important decisions or sign importortant papers. Do not return to work until tomorrow, unless otherwise instructed. Resume previous activities tomorrow. Diet: Start by taking liquids. If you tolerate liquids, advance to solid food. 1.: Colonoscopy in 1 year Notify Physician - If you experience excessive bleeding, unusual abdominal pain, fever, or chest pain, contact your doctor immediately. TOMAS MAE DO August 26, 2020 10:25
[2020-08-26 10:33] VITALS: BP 130/82
== END 2020-08-26 10:33 | disposition home or self-care (01) ==
LOC: ENDO 07:54
PROVIDERS: ATTEND Surgery
DX: D12.4 Benign neoplasm of descending colon (principal); K64.8 Other hemorrhoids; K57.30 Diverticulosis of large intestine without perforation or abscess without bleeding; K52.9 Noninfective gastroenteritis and colitis, unspecified; I10 Essential (primary) hypertension; I25.10 Atherosclerotic heart disease of native coronary artery without angina pectoris; J44.9 Chronic obstructive pulmonary disease, unspecified; G47.33 Obstructive sleep apnea (adult) (pediatric); F32.9 Major depressive disorder, single episode, unspecified; E11.40 Type 2 diabetes mellitus with diabetic neuropathy, unspecified; Z79.4 Long term (current) use of insulin; Z79.899 Other long term (current) drug therapy

== ENCOUNTER → 2020-11-08 | Outpatient (CLI) | payer MEDICARE, MEDICAID ==
[~2020-11-08] MED LIST changes: +BARIUM SUSPENSION 2.1% (VANILLA SILQ) 450 ML PO ONE; +CATHETER FLUSH 10 ML SYR IV PRN; +DICL100G13 TOP; -DICL100G31 TOP; +HOLD METFORMIN - RECEIVED CONTRAST 20 ML VIAL IV SCH; +IOHEXOL 350 MG/ML 100 ML (OMNIPAQUE 350) VIAL IV ONE; +NS 100 ML (IVPB) BAG IV ONE
[2020-11-08 09:54] LABS: CREATININE SERUM 1.08 MG/DL (0.60-1.30)
--- NOTE | 2020-11-08 11:03 | Diagnostic Imaging Report ---
EXAMINATION: CT abdomen and pelvis with intravenous contrast. TECHNIQUE: Multiple contiguous axial images were obtained through the abdomen and pelvis after the uneventful administration of intravenous contrast. All CT scans use one or more of the following dose optimizing techniques: automated exposure control, MA and/or KvP adjustment based on patient size and exam type or iterative reconstruction. HISTORY: Abdominal wall fistula. COMPARISON: 10/16/2019 FINDINGS: Limited views of the lower thorax are unremarkable. The liver is normal without focal lesion. There is no biliary ductal dilation. Gallbladder is normal. Pancreas is normal. Spleen is normal. There is a stable 10 mm left adrenal nodule. There are areas of cortical scarring in both kidneys, left greater than right. There is a 2.2 x 1.2 cm left renal pelvic stone. There is a stable low attenuating lesion in the left kidney likely representing a cyst given its stability. Tiny nonobstructing stone is seen in the right kidney. There are no ureteral stones. There is no hydronephrosis. Urinary bladder is normal. There are marked multiple loops of bowel tethered together in the anterior abdomen directly overlying a surgical scar. Soft tissue thickening at the umbilicus likely represents scarring. This likely represents the site of the enterocutaneous fistula. The colon is also tightly adherent to the undersurface of the abdominal wall and this could represent a colocutaneous fistula. No free fluid or air. No abdominal or pelvic lymphadenopathy. Aorta is normal in caliber without aneurysm. There are no suspicious osseous lesions. IMPRESSION: 1. Surgical scar near the umbilicus with tightly adherent loops of small and large bowel to the undersurface of the scar likely representing either an enterocutaneous or colocutaneous fistula. Dictated by: Dictated on workstation # [id number]
== END ==
LOC: RAD 10:15
PROVIDERS: ATTEND Surgery
DX: K63.2 Fistula of intestine (principal)
CPT/HCPCS: 36415; 74177; 82565; 84520

== ENCOUNTER 2021-03-11 10:49 | Inpatient (IN) | payer MEDICARE, MEDICAID ==
[~2021-03-11] VITALS: Ht 160 cm; Wt 122.9 kg
[~2021-03-11 10:49] MED LIST changes: -BARIUM SUSPENSION 2.1% (VANILLA SILQ) 450 ML PO ONE; -CATHETER FLUSH 10 ML SYR IV PRN; +CYCL10TA25 PO; -CYCL10TA9 PO; -DULO60CA6 PO; +DULO60CA7 PO; -FLUO20CA46 PO; +FLUO20CA48 PO; -HOLD METFORMIN - RECEIVED CONTRAST 20 ML VIAL IV SCH; -IOHEXOL 350 MG/ML 100 ML (OMNIPAQUE 350) VIAL IV ONE; -MAGN400T8 PO; +MGX400T PO; -NS 100 ML (IVPB) BAG IV ONE; +POTA-160 PO; -POTA10TA6 PO
[2021-03-11] MEDS ORDERED: fentaNYL INJ 100 MCG/2 ML AMP IVP ONE (12:00)
[2021-03-11] MEDS ORDERED: ONDANSETRON 4 MG/2 ML (SDV) Z0FRAN IVP ONE (12:00)
--- NOTE | 2021-03-11 12:01 | ED Abdominal Pain ---
General Chief Complaint: Abdominal/GI Problems Stated Complaint: ABD WOUND,NAUSEA Nursing Triage Note: STARTED LAST NIGHT HAVING ABDOMINAL PAIN. OCCASIONAL NAUSEA. 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 She has occasional nausea. The pain seems to be brought on by food. She has not eaten since last night. She has short bowel syndrome and has chronic diarrhea that was actually a little more firm than usual recently. She is NOT passing gas or had a BM today which is unusual for her. Reports that she ate some carrots last night and has a wound on her abdomen and she noticed some orange "specks" in the output from that wound today. She has a known enterocutaneous fistula following laparoscopic ventral hernia repair 2 years ago. She has chronic drainage from this but is usually a small amount. Timing/Duration: 1-2 Days Severity/Quality: Cramping Location: Epigastric Radiation: No Radiation Activities at Onset: None Associated Symptoms: Nausea/Vomiting Allergies and Home Medications Allergies Coded Allergies: No Known Drug Allergies (Unverified , 11/16/18) Patient Home Medication List Home Medication List Reviewed: Yes Albuterol/Ipratropium (Combivent Respimat Inhal [place]) 4 Gm Aero, 2 PUFF IH Q4H PRN for SHORTNESS OF BREATH, (Reported) Entered as Reported by: TRACY HESS on 01/09/15 1424 Amlodipine Besylate (Amlodipine Besylate) 10 Mg Tablet, 10 MG PO DAILY, (Reported) Entered as Reported by: TRACY HESS on 01/09/15 1414 Atorvastatin Calcium (Atorvastatin Calcium) 40 Mg Tablet, 40 MG PO DAILY, (Reported) Entered as Reported by: KING LOPEZ on 11/16/18 1602 Cholecalciferol (Vitamin D3) (Vitamin D3) 125 Mcg Tablet, 125 MCG PO DAILY, (Reported) Entered as Reported by: TRACY HESS on 09/01/19 1108 Fluoxetine HCl (Fluoxetine HCl) 20 Mg Tablet, 20 MG PO DAILY, (Reported) Entered as Reported by: ISABEL MENDIETA on 01/05/19 0855 Gabapentin (Gabapentin) 600 Mg Tablet, 600 MG PO DAILY, (Reported) Entered as Reported by: KITTY DAVIDSON on 08/19/20 1202 Insulin Detemir (Levemir Flextouch) 100 Unit/1 Ml Insuln.pen, 20 UNIT SQ BID, (Reported) Entered as Reported by: TRACY HESS on 09/01/19 1108 Lisinopril (Lisinopril) 20 Mg Tablet, 20 MG PO DAILY, (Reported) Entered as Reported by: TRACY HESS on 01/09/15 1414 Magnesium Oxide (Magnesium Oxide) 400 Mg Tablet, 400 MG PO DAILY, (Reported) Entered as Reported by: GAEL JESNEN on 01/28/15 1629 Metoprolol Tartrate (Metoprolol Tartrate) 25 Mg Tablet, 12.5 MG PO DAILY, (Reported) Entered as Reported by: ISABEL MENDIETA on 01/05/19 0855 Nystatin/Triamcinolone (Nystatin-Triamcinolone Cream) 15 Gm Cr, 15 GM TP PRN, (Reported) Entered as Reported by: KITTY DAVIDSON on 08/19/20 1204 Potassium Chloride (Potassium Chloride) 10 Meq Capsule.er, 10 MEQ PO BID, (Reported) Entered as Reported by: KITTY DAVIDSON on 08/19/20 1204 Semaglutide (Ozempic) 1 Mg/0.75 Ml Pen.injctr, 1 MG SQ WEEK, (Reported) Entered as Reported by: KITTY DAVIDSON on 08/19/20 1202 Sitagliptin Phosphate (Januvia) 100 Mg Tablet, 100 MG PO DAILY, (Reported) Entered as Reported by: ISABEL MENDIETA on 12/09/16 1204 Review of Systems Review of Systems Constitutional: see HPI EENTM: No Symptoms Reported Respiratory: No Symptoms Reported Cardiovascular: No Symptoms Reported Gastrointestinal: See HPI, Abdominal Pain, Nausea Genitourinary: No Symptoms Reported Musculoskeletal: no symptoms reported Skin: no symptoms reported Psychiatric/Neurological: No Symptoms Reported Endocrine: No Symptoms Reported Hematologic/Lymphatic: No Symptoms Reported Past Pzjrbde-Uuhddp-Spfkaz Hx Patient Social History Tobacco Use?: No Substance use?: No Alcohol Use?: Yes Alcohol Frequency: Once in a while Pt feels they are or have been: No Immunizations Up To Date Tetanus Booster (TDap): More than 5yrs Influenza Vaccine Up-to-Date: Yes; Up-to-Date First/Initial COVID19 Vaccinat: JANUARY 2021 Second COVID19 Vaccination [place]: 01/30 COVID19 Vaccine 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: MODERNElvis Seasonal Allergies Seasonal Allergies: No Past Medical History Surgeries: Yes Abdominal, Bowel Surgery, Section, Eye Surgery, Hysterectomy, Oophorectomy, Orthopedic, Tonsillectomy, Tubal Ligation Respiratory: Yes (BI-PAP, OXYGEN) Sleep Apnea, COPD, Emphysema Currently Using CPAP: No Currently Using BIPAP: Yes Cardiac: Yes Coronary Artery Disease, High Cholesterol, Hypertension Neurological: Yes (chronic numbness rt proximal lateral thigh.) Neuropathy 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 Disorders: Yes (BENIGN OVARIAN TUMOR) Female 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 Disorders: Denies ASSIGNMENT EDITOR History: Hysterectomy, Tubal Ligation, Menopausal Sexually Transmitted Disease: No HIV/AIDS: No Genitourinary: Yes (STAGE 3 KIDNEY FAILURE) Kidney Stones, Renal Failure Gastrointestinal: Yes (Abdominal wall fistula) Abdominal Hernia, Chronic Constipation, Diverticulosis, C-Diff Musculoskeletal: Yes Degenerate Disk Disease, Arthritis, Fibromyalgia, Chronic Back Pain Endocrine: Yes (MORBID OBESITY) Diabetes, Non-Insulin dep HEENT: Yes (GLASSES, DENTURES) Cataract Loss of Vision: Denies Hearing Impairment: Denies Cancer: No Psychosocial: Yes Depression Integumentary: No Blood Disorders: No Adverse Reaction/Blood Tranf: No (N/A) Family Medical History Arthritis 19 FATHER Cardiovascular disease 19 FATHER Completed stroke 19 MOTHER Diabetes mellitus 19 FATHER Hypertension 19 FATHER G8 SISTER Myocardial infarction 19 FATHER Respiratory disorder 19 MOTHER No Pertinent Family Hx Physical Exam Vital Signs Vital Signs - First Documented 03/11/21 11:10 Temp 36.5 Pulse 74 Resp 18 B/P (MAP) 142/87 (105) Pulse Ox 95 O2 Delivery Room Air Capillary Refill : Less Than 3 Seconds Height/Weight/BMI Height: 5'3.00" Weight: 273lbs. 2.0oz. 123.767337oo; 48.00 BMI Method:Stated General Appearance: WD/WN, no apparent distress HEENT: PERRL/EOMI, normal ENT inspection Neck: non-tender, full range of motion Respiratory: no respiratory distress, no accessory muscle use Gastrointestinal: normal bowel sounds, soft, tenderness (Epigastric tenderness to palpation), other (The umbilical wound is without any surrounding cellulitis. There is little granulation tissue at the site. There is in fact some orange specks which look like carrot.) Extremities: normal range of motion, non-tender Neurologic/Psychiatric: alert, normal mood/affect, oriented x 3 Skin: normal color, warm/dry Procedures/Interventions Date of ETT Placement: Nov 20, 2018 Time of ETT Placement: 1505 Progress/Results/Core Measures Results/Orders Lab Results Laboratory Tests Test 03/11/21 12:30 Range/Units White Blood Count 13.8 H 4.3-11.0 10^3/uL Red Blood Count 4.99 3.80-5.11 10^6/uL Hemoglobin 13.7 11.5-16.0 g/dL Hematocrit 44 35-52 % Mean Corpuscular Volume 87 80-99 fL Mean Corpuscular Hemoglobin 28 25-34 pg Mean Corpuscular Hemoglobin Concent 32 32-36 g/dL Red Cell Distribution Width 14.6 H 10.0-14.5 % Platelet Count 315 130-400 10^3/uL Mean Platelet Volume 9.5 9.0-12.2 fL Immature Granulocyte % (Auto) 1 % Neutrophils (%) (Auto) 68 42-75 % Lymphocytes (%) (Auto) 23 12-44 % Monocytes (%) (Auto) 7 0-12 % Eosinophils (%) (Auto) 1 0-10 % Basophils (%) (Auto) 0 0-10 % Neutrophils # (Auto) 9.3 H 1.8-7.8 10^3/uL Lymphocytes # (Auto) 3.2 1.0-4.0 10^3/uL Monocytes # (Auto) 0.9 0.0-1.0 10^3/uL Eosinophils # (Auto) 0.2 0.0-0.3 10^3/uL Basophils # (Auto) 0.1 0.0-0.1 10^3/uL Immature Granulocyte # (Auto) 0.1 0.0-0.1 10^3/uL Prothrombin Time 13.5 12.2-14.7 SEC INR Comment 1.0 0.8-1.4 Activated Partial Thromboplast Time 29 24-35 SEC Sodium Level 139 135-145 MMOL/L Potassium Level 4.4 3.6-5.0 MMOL/L Chloride Level 102 98-107 MMOL/L Carbon Dioxide Level 25 21-32 MMOL/L Anion Gap 12 5-14 MMOL/L Blood Urea Nitrogen 17 7-18 MG/DL Creatinine 1.16 0.60-1.30 MG/DL Estimat Glomerular Filtration Rate 47 BUN/Creatinine Ratio 15 Glucose Level 126 H 70-105 MG/DL Calcium Level 10.1 8.5-10.1 MG/DL Corrected Calcium 9.9 8.5-10.1 MG/DL Total Bilirubin 0.5 0.1-1.0 MG/DL Aspartate Amino Transf (AST/SGOT) 16 5-34 U/L Alanine Aminotransferase (ALT/SGPT) 15 0-55 U/L Alkaline Phosphatase 69 40-136 U/L Total Protein 8.2 6.4-8.2 GM/DL Albumin 4.3 3.2-4.5 GM/DL Lipase 35 8-78 U/L My Orders Orders - JASON PALMER APRN Cbc With Automated Diff (03/11/21 11:58) Comprehensive Metabolic Panel (03/11/21 11:58) Protime With Inr (03/11/21 11:58) Partial Thromboplastin Time (03/11/21 11:58) Lipase (03/11/21 11:58) Ed Iv/Invasive Line Start (03/11/21 11:58) Ua Culture If Indicated (03/11/21 11:58) Us Gallbladder [id number] (03/11/21 11:58) Ondansetron Injection (Zofran Injectio (03/11/21 12:00) Fentanyl Inj (Sublimaze Injection) (03/11/21 12:00) Ct Abdomen/Pelvis W (03/11/21 12:39) Hydromorphone Injection (Dilaudid Inject (03/11/21 12:45) Hydromorphone Injection (Dilaudid Inject (03/11/21 14:15) Promethazine Injection (Phenergan Injec (03/11/21 14:30) Medications Given in ED Current Medications Medications Dose Ordered Sig/Gracie Route Start Time Stop Time Status Last Admin Dose Admin Diatrizoate Meglum/ Diatrizoate Sod 30 ml ONCE ONCE PO 03/11/21 13:45 03/11/21 13:46 DC 03/11/21 14:28 30 ML Fentanyl Citrate 50 mcg ONCE ONCE IVP 03/11/21 12:00 03/11/21 12:01 DC 03/11/21 12:33 50 MCG Hydromorphone HCl 0.5 mg ONCE ONCE IV 03/11/21 12:45 03/11/21 12:46 DC 03/11/21 12:54 0.5 MG Hydromorphone HCl 0.5 mg ONCE ONCE IV 03/11/21 14:15 03/11/21 14:16 DC 03/11/21 14:29 0.5 MG Iohexol 100 ml ONCE ONCE IV 03/11/21 13:45 03/11/21 13:46 DC 03/11/21 14:28 100 ML Ondansetron HCl 8 mg ONCE ONCE IVP 03/11/21 12:00 03/11/21 12:01 DC 03/11/21 12:33 8 MG Promethazine HCl 12.5 mg ONCE ONCE IVP 03/11/21 14:30 03/11/21 14:31 DC 03/11/21 14:29 12.5 MG Sodium Chloride 100 ml ONCE ONCE IV 03/11/21 13:45 03/11/21 13:46 DC 03/11/21 14:28 80 ML Vital Signs/I&O 03/11/21 11:10 Temp 36.5 Pulse 74 Resp 18 B/P (MAP) 142/87 (105) Pulse Ox 95 O2 Delivery Room Air Blood Pressure Mean: 105 Diagnostic Imaging Diagonstic Imaging: CT Comments NAME: ASHLEY [facility]ENTLEY [facility] REC#: [id number] PT STATUS: REG ER : 1955 PHYSICIAN: JASON PALMER APRN ADMIT DATE: 03/11/21/ER Draft Date of Exam:03/11/21 US GALLBLADDER [id number] PROCEDURE: US Gallbladder. TECHNIQUE: Multiple real-time grayscale images were obtained over the right upper quadrant in various projections. INDICATION: Abdominal and epigastric pain. COMPARISON: Study interpreted in correlation with abdominopelvic CT dated 11/08/2020. FINDINGS: Shadowing bowel gas and the body habitus result in sonographic limitations and sensitivity. The liver parenchyma appeared nonfocal and nonacute. There is no pathological distention of the bile ducts. The gallbladder appeared unremarkable. No stone, sludge, or wall thickening. The unobstructed right kidney is nonfocal and nonacute. There was no ascites. The pancreas, aorta, and IVC were largely obscured by gas. IMPRESSION: Limited by body habitus and shadowing gas. No hepatobiliary abnormality or ascites identified. Dictated on workstation # [id number] Dict: 03/11/21 1235 Trans: 03/11/21 1239 [id number] Interpreted by: ANABELLA REN Electronically signed by: Departure Communication (Admissions) NAME: ASHLEY [facility]ENTLEY [facility] REC#: [id number] PT STATUS: REG ER : 1955 PHYSICIAN: JASON PALMER APRN ADMIT DATE: 03/11/21/ER Signed Date of Exam:03/11/21 CT ABDOMEN/PELVIS W CT ABDOMEN/PELVIS W TECHNIQUE: Multiple contiguous axial images were obtained through the abdomen and pelvis after administration of intravenous contrast. All CT scans use one or more of the following dose optimizing techniques: automated exposure control, MA and/or KvP adjustment based on patient size and exam type or iterative reconstruction. INDICATION: Midabdominal pain. Prior small bowel surgery with bowel injury. COMPARISON: 10/12/2020. FINDINGS: Lower chest: The lung bases are clear. No pericardial or pleural effusion. Peritoneum: No free intraperitoneal air or fluid. Liver and biliary system: Hypoattenuation of the liver raises possibility of hepatic steatosis. No focal hepatic lesion. The gallbladder is normal. No biliary duct dilation. Spleen and Pancreas: Spleen is normal. The pancreas enhances normally without mass lesion or peripancreatic inflammatory changes. Adrenals: Normal. tract: Bilateral cortical thinning of the kidneys is similar. Exophytic cyst off the lower pole of the left kidney is stable. Focal cortical scar with calcification in the lower pole of the right kidney is stable. No solid renal mass. No obstructive uropathy. Urinary bladder is normally filled without wall thickening. GI tract: Stomach is partially filled with contrast material. The appearance of the small bowel has not substantially changed since prior examination. The small bowel loops are fluid filled but nondilated. At the level of the umbilicus, the small bowel loops are closely adherent to the abdominal wall and there is a hyperdense intraluminal patch that is stable. The bowel loop at the level of the umbilicus is also mildly distended with fluid and air. No pericolonic inflammatory change. Vasculature and Lymph nodes: Normal caliber aorta. No abdominal or pelvic lymphadenopathy. Musculoskeletal: No concerning osseous lesion. IMPRESSION: 1. Stable appearance of the small bowel at the level of the umbilicus where there is associated scar and tightly adherent loops of small bowel abutting the abdominal wall. Similar to prior examination, the small bowel loop directly beneath the umbilicus is filled with air and fluid, but there is no definitive communication with the skin. If patient has leakage from the surgical scar/umbilicus, then enterocutaneous fistula is highly likely present. 2. Small bowel loops are fluid-filled and borderline dilated. There is no transition point and this could be due to ileus. If an additional follow-up imaging is necessary, small bowel follow-through may provide additional information as the contrast material on today's examination does not reach this level. Dictated by: Dictated on workstation # [id number] Dict: 03/11/21 1446 Trans: 03/11/21 1517 [id number] Interpreted by: TATE SOW MD Electronically signed by: TATE SOW MD 03/11/21 1517 [id number] spoke with Dr. Babcock from radiology. There is a similar appearing CT study when compared to the one earlier this year though there is more distention of the small bowel. This could represent a small bowel obstruction. Clinically she does present like a small bowel obstruction with abdominal pain colicky in nature nausea vomiting and absence of flatus or bowel movement today. I spoke to Dr. River on-call for surgery who the patient is established with. Will admit to medicine, consult him, no nasogastric tube for the sake of leaving the contrast in the bowel lumen and repeat imaging tomorrow. Discussed these findings with the patient. She is very hesitant to undergo surgery given her prolonged course of intubation and respiratory failure after her last surgery. I have been giving her 0.5 mg aliquots of Dilaudid down here every hour or so which does temporarily help her pain. It certainly does not cause excessive sedation. I will write for 1 mg every 3 hours as needed upstairs. Impression Primary Impression: SBO (small bowel obstruction) Additional Impression: Enterocutaneous fistula Disposition: ADMITTED INPATIENT Condition: Stable Admissions Decision to Admit Reason: Admit from ER (General) Decision to Admit/Date: Mar 11, 2021 Time/Decision to Admit Time: 15:18 Departure-Patient Inst. Referrals: [facility] (PCP/Family) Primary Care Physician JASON PALMER APRN Mar 11, 2021 12:00
[2021-03-11 12:39] LABS: BASOPHILS # (AUTO) 0.1 10^3/uL (0.0-0.1); BASOPHILS % (AUTO) 0 % (0-10); EOSINOPHILS # (AUTO) 0.2 10^3/uL (0.0-0.3); EOSINOPHILS % (AUTO) 1 % (0-10); HEMATOCRIT 44 % (35-52); HEMOGLOBIN 13.7 g/dL (11.5-16.0); LYMPHOCYTES # (AUTO) 3.2 10^3/uL (1.0-4.0); LYMPHOCYTES % (AUTO) 23 % (12-44); MEAN CORPUSCULAR HEMOGLOBIN 28 pg (25-34); MEAN CORPUSCULAR HGB CONC 32 g/dL (32-36); MEAN CORPUSCULAR VOLUME 87 fL (80-99); MEAN PLATELET VOLUME 9.5 fL (9.0-12.2); MONOCYTES # (AUTO) 0.9 10^3/uL (0.0-1.0); MONOCYTES % (AUTO) 7 % (0-12); NEUTROPHILS # (AUTO) 9.3 10^3/uL (1.8-7.8); NEUTROPHILS % (AUTO) 68 % (42-75); PLATELET COUNT 315 10^3/uL (130-400); WHITE BLOOD COUNT 13.8 10^3/uL (4.3-11.0)
--- NOTE | 2021-03-11 12:40 | Diagnostic Imaging Report ---
PROCEDURE: US Gallbladder. TECHNIQUE: Multiple real-time grayscale images were obtained over the right upper quadrant in various projections. INDICATION: Abdominal and epigastric pain. COMPARISON: Study interpreted in correlation with abdominopelvic CT dated 11/08/2020. FINDINGS: Shadowing bowel gas and the body habitus result in sonographic limitations and sensitivity. The liver parenchyma appeared nonfocal and nonacute. There is no pathological distention of the bile ducts. The gallbladder appeared unremarkable. No stone, sludge, or wall thickening. The unobstructed right kidney is nonfocal and nonacute. There was no ascites. The pancreas, aorta, and IVC were largely obscured by gas. IMPRESSION: Limited by body habitus and shadowing gas. No hepatobiliary abnormality or ascites identified. Dictated by: Dictated on workstation # [id number]
[2021-03-11] MEDS ORDERED: HYDROmorphone 2 MG/ML VIAL (DILAUDID) IV ONE ×2 (12:45→14:15)
[2021-03-11 12:58] LABS: ALBUMIN 4.3 GM/DL (3.2-4.5); POTASSIUM 4.4 MMOL/L (3.6-5.0); PROTHROMBIN TIME PATIENT 13.5 SEC (12.2-14.7)
[2021-03-11 12:59] LABS: CALCIUM 10.1 MG/DL (8.5-10.1)
[2021-03-11 13:01] LABS: TOTAL PROTEIN 8.2 GM/DL (6.4-8.2)
[2021-03-11 13:02] LABS: BILIRUBIN,TOTAL 0.5 MG/DL (0.1-1.0)
[2021-03-11 13:04] LABS: CREATININE SERUM 1.16 MG/DL (0.60-1.30)
[2021-03-11] MEDS ORDERED: NS 100 ML (IVPB) BAG IV ONE (13:45)
[2021-03-11] MEDS ORDERED: DIATRIZOATE MEGLUM/SODIUM 37% 120 ML (GASTROGRAFIN) PO ONE (13:45)
[2021-03-11] MEDS ORDERED: HOLD METFORMIN - RECEIVED CONTRAST 20 ML VIAL IV SCH (13:45)
[2021-03-11] MEDS ORDERED: CATHETER FLUSH 10 ML SYR IV PRN ×2 (13:45→17:00)
[2021-03-11] MEDS ORDERED: IOHEXOL 350 MG/ML 100 ML (OMNIPAQUE 350) VIAL IV ONE (13:45)
[2021-03-11] MEDS ORDERED: PROMETHAZINE INJ 25 MG/ML (PHENERGAN) AMP IVP ONE (14:30)
--- NOTE | 2021-03-11 15:10 | Diagnostic Imaging Report ---
CT ABDOMEN/PELVIS W TECHNIQUE: Multiple contiguous axial images were obtained through the abdomen and pelvis after administration of intravenous contrast. All CT scans use one or more of the following dose optimizing techniques: automated exposure control, MA and/or KvP adjustment based on patient size and exam type or iterative reconstruction. INDICATION: Midabdominal pain. Prior small bowel surgery with bowel injury. COMPARISON: 10/12/2020. FINDINGS: Lower chest: The lung bases are clear. No pericardial or pleural effusion. Peritoneum: No free intraperitoneal air or fluid. Liver and biliary system: Hypoattenuation of the liver raises possibility of hepatic steatosis. No focal hepatic lesion. The gallbladder is normal. No biliary duct dilation. Spleen and Pancreas: Spleen is normal. The pancreas enhances normally without mass lesion or peripancreatic inflammatory changes. Adrenals: Normal. tract: Bilateral cortical thinning of the kidneys is similar. Exophytic cyst off the lower pole of the left kidney is stable. Focal cortical scar with calcification in the lower pole of the right kidney is stable. No solid renal mass. No obstructive uropathy. Urinary bladder is normally filled without wall thickening. GI tract: Stomach is partially filled with contrast material. The appearance of the small bowel has not substantially changed since prior examination. The small bowel loops are fluid filled but nondilated. At the level of the umbilicus, the small bowel loops are closely adherent to the abdominal wall and there is a hyperdense intraluminal patch that is stable. The bowel loop at the level of the umbilicus is also mildly distended with fluid and air. No pericolonic inflammatory change. Vasculature and Lymph nodes: Normal caliber aorta. No abdominal or pelvic lymphadenopathy. Musculoskeletal: No concerning osseous lesion. IMPRESSION: 1. Stable appearance of the small bowel at the level of the umbilicus where there is associated scar and tightly adherent loops of small bowel abutting the abdominal wall. Similar to prior examination, the small bowel loop directly beneath the umbilicus is filled with air and fluid, but there is no definitive communication with the skin. If patient has leakage from the surgical scar/umbilicus, then enterocutaneous fistula is highly likely present. 2. Small bowel loops are fluid-filled and borderline dilated. There is no transition point and this could be due to ileus. If an additional follow-up imaging is necessary, small bowel follow-through may provide additional information as the contrast material on today's examination does not reach this level. Dictated by: Dictated on workstation # [id number]
[2021-03-11 16:40] VITALS: BP 154/83
--- NOTE | 2021-03-11 16:49 | History & Physical-Hospitalist ---
JESSICA MORRIS MED STUDENT 03/11/21 1649: History of Present Illness HPI/Chief Complaint CC- Abdominal Pain/Fistula Mrs. 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 She states that about 2 years ago she underwent a hernia repair with mesh, sometime during the surgery her small bowel was knicked and she formed an enterocutaneous fistula that has been there ever since. She states that she has looked into getting it repaired but she would have to lose 100 pounds before they would. She notes that the fistula drains normally and usually smells like stool. for the last 3-4 days she has noticed increased abdominal pain. She ate a carrot and beleives she saw pieces of the carrot coming through the fistula and that it had gotten a bit worse. She states the pain associated with it seems to flare in the evenings. She also has been feeling more tired lately. She does not recall any trauma or other event that would cause this to worsen. She states that it got worse today than it had ever been and thats why she came to the ED. She thinks having a bowel movement sometimes helps the pain, otherwise it usually hurts all the time. She denies constipationn but states she has chronic diarrhea due to her short bowel. She does have nausea, some blood in her fistula contents, and this has been going on for about 2 months. She states that she has had only small, unimpressive bowel movements lately and has not passed gas for a couple of days. She has been to the hospital for this before but that was about a year ago and it was not this bad. Source: patient Exam Limitations: no limitations Date Seen 03/11/21 Time Seen by a Provider: 16:30 Attending Physician Dang Licea DO [facility] Referring Physician Date of Admission Mar 11, 2021 at 15:20 Home Medications & Allergies Home Medications Reviewed patient Home Medication Reconciliation performed by pharmacy medication reconciliations tattoo technician and/or nursing. Patients Allergies have been reviewed. Allergies Allergies Coded Allergies No Known Drug Allergies (Unverified11/16/18) Past Oqnbjiy-Lwqrav-Zcavqk Hx Patient Social History Tobacco Use?: No Substance use?: No Alcohol Use?: Yes Alcohol Frequency: Once in a while Pt feels they are or have been: No Immunizations Up To Date Date of Influenza Vaccine: Feb 28, 2020 First/Initial COVID19 Vaccinat: JANUARY 2021 Second COVID19 Vaccination Darwin: 01/30 Date of Pneumonia Vaccine: Apr 12, 2013 Seasonal Allergies Seasonal Allergies: No Current Status Advance Directives: No Communicates: Verbally Primary Language: Slovak Preferred Spoken Language: Slovak Is interpretation needed?: No Sensory deficits: Vision impairment Past Medical History Surgeries: Abdominal, Bowel Surgery, Section, Eye Surgery, Hysterectomy, Oophorectomy, Orthopedic, Tonsillectomy, Tubal Ligation Sleep Apnea, COPD, Emphysema Currently Using CPAP: No Currently Using BIPAP: Yes Coronary Artery Disease, High Cholesterol, Hypertension Neuropathy 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 History: Hysterectomy, Tubal Ligation, Menopausal Sexually Transmitted Disease: No HIV/AIDS: No Kidney Stones, Renal Failure Abdominal Hernia, Chronic Constipation, Diverticulosis, C-Diff Degenerate Disk Disease, Arthritis, Fibromyalgia, Chronic Back Pain Diabetes, Non-Insulin dep Cataract Loss of Vision: Denies Hearing Impairment: Denies Depression Blood Disorders: No Adverse Reaction/Blood Tranf: No (N/A) Family Medical History Arthritis 19 FATHER Cardiovascular disease 19 FATHER Completed stroke 19 MOTHER Diabetes mellitus 19 FATHER Hypertension 19 FATHER G8 SISTER Myocardial infarction 19 FATHER Respiratory disorder 19 MOTHER Heart Disease, Hypertension Review of Systems Constitutional: No chills, No fever, No weakness EENTM: other (dry mouth); No vision loss Respiratory: No cough, No hemoptysis, No phlegm, No short of breath Cardiovascular: No chest pain, No palpitations Gastrointestinal: abdominal pain (Located around umbilicus, can very between sharp and dull); No constipation; diarrhea (chronic); No hematemesis; loss of appetite; No melena; nausea; No vomiting; other (Leaking from enterocutaneous fistula) Genitourinary: No dysuria, No frequency, No hematuria Musculoskeletal: No joint pain, No joint swelling Skin: rash (Redness around fistula over umbilicus) Psychiatric/Neurological: Denies Headache Physical Exam Physical Exam Vital Signs Vital Signs - First Documented 03/11/21 11:10 Temp 36.5 Pulse 74 Resp 18 B/P (MAP) 142/87 (105) Pulse Ox 95 O2 Delivery Room Air Capillary Refill : Less Than 3 Seconds Height, Weight, BMI Height: 5'3.00" Weight: 273lbs. 2.0oz. 123.113009fn; 48.00 BMI Method:Stated General Appearance: No Apparent Distress, WD/WN, Other (Patient is lying in bed with eyes closed but not sleeping. Does not appear to be in significant pain, is pleasant) Eyes: Bilateral Eye PERRL HEENT: PERRL/EOMI, Pharynx Normal Neck: Non Tender, Supple Respiratory: Chest Non Tender, Lungs Clear, Normal Breath Sounds, No Accessory Muscle Use, No Respiratory Distress Cardiovascular: Regular Rate, Rhythm, No Murmur, Normal Peripheral Pulses Gastrointestinal: Normal Bowel Sounds, No Pulsatile Mass, Soft, Tenderness (mild to palpation), Other (Bandage over umbilicus, there is redness around the site of the fistula with some serous/brownish looking fluid on the bandage, smells somewhat like stool. ) Rectal: Deferred Extremity: Non Tender, No Calf Tenderness, Swelling (1+ Lower extremities ) Neurologic/Psychiatric: Alert, Oriented x3, No Motor/Sensory Deficits Skin: Normal Color, Warm/Dry Results Results/Procedures Labs Laboratory Tests 03/11/21 12:30 Patient resulted labs reviewed. Imaging NAME: ASHLEY BENTLEY [facility] REC#: [id number] PT STATUS: REG ER : 1955 PHYSICIAN: JASON PALMER APRN ADMIT DATE: 03/11/21/ER Draft Date of Exam:03/11/21 US GALLBLADDER [id number] PROCEDURE: US Gallbladder. TECHNIQUE: Multiple real-time grayscale images were obtained over the right upper quadrant in various projections. INDICATION: Abdominal and epigastric pain. COMPARISON: Study interpreted in correlation with abdominopelvic CT dated 11/08/2020. FINDINGS: Shadowing bowel gas and the body habitus result in sonographic limitations and sensitivity. The liver parenchyma appeared nonfocal and nonacute. There is no pathological distention of the bile ducts. The gallbladder appeared unremarkable. No stone, sludge, or wall thickening. The unobstructed right kidney is nonfocal and nonacute. There was no ascites. The pancreas, aorta, and IVC were largely obscured by gas. IMPRESSION: Limited by body habitus and shadowing gas. No hepatobiliary abnormality or ascites identified. Dictated on workstation # [id number] NAME: ASHLEY BENTLEY [facility] REC#: [id number] PT STATUS: REG ER : 1955 PHYSICIAN: JASON PALMER APRN ADMIT DATE: 03/11/21/ER Signed Date of Exam:03/11/21 CT ABDOMEN/PELVIS W CT ABDOMEN/PELVIS W TECHNIQUE: Multiple contiguous axial images were obtained through the abdomen and pelvis after administration of intravenous contrast. All CT scans use one or more of the following dose optimizing techniques: automated exposure control, MA and/or KvP adjustment based on patient size and exam type or iterative reconstruction. INDICATION: Midabdominal pain. Prior small bowel surgery with bowel injury. COMPARISON: 10/12/2020. FINDINGS: Lower chest: The lung bases are clear. No pericardial or pleural effusion. Peritoneum: No free intraperitoneal air or fluid. Liver and biliary system: Hypoattenuation of the liver raises possibility of hepatic steatosis. No focal hepatic lesion. The gallbladder is normal. No biliary duct dilation. Spleen and Pancreas: Spleen is normal. The pancreas enhances normally without mass lesion or peripancreatic inflammatory changes. Adrenals: Normal. tract: Bilateral cortical thinning of the kidneys is similar. Exophytic cyst off the lower pole of the left kidney is stable. Focal cortical scar with calcification in the lower pole of the right kidney is stable. No solid renal mass. No obstructive uropathy. Urinary bladder is normally filled without wall thickening. GI tract: Stomach is partially filled with contrast material. The appearance of the small bowel has not substantially changed since prior examination. The small bowel loops are fluid filled but nondilated. At the level of the umbilicus, the small bowel loops are closely adherent to the abdominal wall and there is a hyperdense intraluminal patch that is stable. The bowel loop at the level of the umbilicus is also mildly distended with fluid and air. No pericolonic inflammatory change. Vasculature and Lymph nodes: Normal caliber aorta. No abdominal or pelvic lymphadenopathy. Musculoskeletal: No concerning osseous lesion. IMPRESSION: 1. Stable appearance of the small bowel at the level of the umbilicus where there is associated scar and tightly adherent loops of small bowel abutting the abdominal wall. Similar to prior examination, the small bowel loop directly beneath the umbilicus is filled with air and fluid, but there is no definitive communication with the skin. If patient has leakage from the surgical scar/umbilicus, then enterocutaneous fistula is highly likely present. 2. Small bowel loops are fluid-filled and borderline dilated. There is no transition point and this could be due to ileus. If an additional follow-up imaging is necessary, small bowel follow-through may provide additional information as the contrast material on today's examination does not reach this level. Dictated by: Dictated on workstation # [id number] Assessment/Plan Admission Diagnosis Abdominal Pain Admission Status: Inpatient Order (span 2 midnights) Reason for Inpatient Admission: Possible Surgical correction Assessment and Plan Possible Enterocutaneous Fistula/Abdominal Pain -Imaging not conclusive but suggests there could be fistula -Consult surgery -Pain control as needed -NPO -Re-image tomorrow -IV fluids -Keep area bandaged and dry Diabetes -Continue patients diabetes medication Supervisory-Addendum Brief Verification & Attestation Participated in pt care: history, physical Personally performed: exam, history Care discussed with: Medical Student Procedures: n/a n/a DANG LICEA DO 03/12/21 0638: History of Present Illness HPI/Chief Complaint CC: Abdominal pain HPI: This is a 65yoWF who has a history of enterocutaneous fistula from hernia surgery in the past who has had multiple bowel obstructions who was admitted for partial bowel obstruction and will need close monitoring in the meantime. Dr. River was consulted. Source: patient Exam Limitations: no limitations Past Txptagv-Gdmesy-Ramatf Hx Patient Social History Marrital Status: single Employed/Student: unemployed Smoking Status: Former Smoker Past Medical History Surgeries: Abdominal COPD High Cholesterol, Hypertension Family Medical History Arthritis 19 FATHER Cardiovascular disease 19 FATHER Completed stroke 19 MOTHER Diabetes mellitus 19 FATHER Hypertension 19 FATHER G8 SISTER Myocardial infarction 19 FATHER Respiratory disorder 19 MOTHER Review of Systems Constitutional: see HPI EENTM: no symptoms reported Respiratory: no symptoms reported Cardiovascular: no symptoms reported Gastrointestinal: abdominal pain (Located around umbilicus, can very between sharp and dull), loss of appetite, nausea, vomiting Genitourinary: no symptoms reported Musculoskeletal: no symptoms reported Skin: no symptoms reported Psychiatric/Neurological: No Symptoms Reported All Other Systems Reviewed Negative Unless Noted: Yes Physical Exam Physical Exam General Appearance: No Apparent Distress, WD/WN, Chronically ill, Obese Eyes: Right Eye Normal Inspection, Right Eye PERRL HEENT: PERRL/EOMI, Normal ENT Inspection, Pharynx Normal, Moist Mucous Membr anes Neck: Full Range of Motion, Normal Inspection, Non Tender Respiratory: Chest Non Tender, Lungs Clear, Normal Breath Sounds, No Accessory Muscle Use, No Respiratory Distress Cardiovascular: Regular Rate, Rhythm, No Edema, No Gallop, No JVD, No Murmur, Normal Peripheral Pulses Gastrointestinal: Normal Bowel Sounds, No Organomegaly, No Pulsatile Mass, Abnormal Bowel Sounds, Tenderness (mild to palpation) Back: Normal Inspection, No CVA Tenderness, No Vertebral Tenderness Extremity: Normal Capillary Refill, Normal Inspection, Normal Range of Motion, Non Tender, No Calf Tenderness, No Pedal Edema Neurologic/Psychiatric: Alert, Oriented x3, No Motor/Sensory Deficits, Normal Mood/Affect Skin: Normal Color, Warm/Dry Lymphatic: No Adenopathy Assessment/Plan Admission Diagnosis Assessment: Partial bowel obstruction versus ileus Enterocutaneous fistula Obesity Hypertension Neuropathy Plan: Supportive care Appreciate general surgery Admission Status: Inpatient Order (span 2 midnights) Reason for Inpatient Admission: SBO Diagnosis/Problems Diagnosis/Problems (1) SBO (small bowel obstruction) Status: Acute (2) Enterocutaneous fistula Status: Acute (3) Diabetes mellitus, type 2 Status: Chronic (4) Obesity hypoventilation syndrome Status: Chronic Supervisory-Addendum Brief Verification & Attestation Participated in pt care: history, MDM, physical Personally performed: exam, history, MDM, supervision of care Care discussed with: Medical Student Procedures: n/a Results interpretation: Verified all documentation Verification and Attestation of Medical Student E/M Service A medical student performed and documented this service in my presence. I reviewed and verified all information documented by the medical student and made modifications to such information, when appropriate. I personally performed the physical exam and medical decision making. Dang Licea, Mar 13, 2021,04:50 JESSICA MORRIS MED STUDENT Mar 11, 2021 16:49 DANG LICEA DO Mar 12, 2021 06:38
[2021-03-11] MEDS ORDERED: ONDANSETRON 4 MG/2 ML (SDV) Z0FRAN IV PRN (17:00)
[2021-03-11] MEDS: PROMETHAZINE INJ 25 MG/ML (PHENERGAN) AMP IV PRN (17:09)
[2021-03-11] MEDS: LACTATED RINGERS 1,000 ML IV SCH (17:09)
[2021-03-11] MEDS: HYDROmorphone 2 MG/ML VIAL (DILAUDID) IV PRN (17:10)
[2021-03-11] MEDS: inSUlin ASPART (NovoLOG) 1 UNIT/0.01 ML (CHARGE PER UNIT) SC SCH (17:42)
[2021-03-11 19:20] VITALS: BP 118/69
--- NOTE | 2021-03-11 20:03 | Consultation - Surgery ---
History of Present Illness History of Present Illness Patient Consulted On([place]/time) 03/11/21 19:56 Time Seen by Provider: 18:47 History of Present Illness Surgery asked to consult regarding Enterocutaneous fistula and PSBO. 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 She has occasional nausea. The pain seems to be brought on by food. She has not eaten since last night. She has short bowel syndrome and has chronic diarrhea that was actually a little more firm than usual recently. She is NOT passing gas or had a BM today which is unusual for her. Reports that she ate some carrots last night and has a wound on her abdomen and she noticed some orange "specks" in the output from that wound today. She has a known enterocutaneous fistula following laparoscopic ventral hernia repair 2 years ago. She has chronic drainage from this but is usually a small amount. Timing/Duration: 1-2 Days Severity/Quality: Cramping Location: Epigastric Radiation: No Radiation Activities at Onset: None Associated Symptoms: Nausea/Vomiting When I spoke to pt this evening she stated she thought she was doing better. Pain was improved, still no BM or gas. I asked her when her consult with NICOLÁS was; she stated April 25. She is not that hungry right now. Allergies and Home Medications Allergies Coded Allergies: No Known Drug Allergies (Unverified , 11/16/18) Patient Home Medication List Home Medication List Reviewed: Yes Albuterol/Ipratropium (Combivent Respimat Inhal [place]) 4 Gm Aero, 2 PUFF IH Q4H PRN for SHORTNESS OF BREATH, (Reported) Entered as Reported by: TRACY HESS on 01/09/15 1424 Amlodipine Besylate (Amlodipine Besylate) 10 Mg Tablet, 10 MG PO DAILY, (Reported) Entered as Reported by: TRACY HESS on 01/09/15 1414 Atorvastatin Calcium (Atorvastatin Calcium) 40 Mg Tablet, 40 MG PO DAILY, (Reported) Entered as Reported by: KING LOPEZ on 11/16/18 1602 Cholecalciferol (Vitamin D3) (Vitamin D3) 125 Mcg Tablet, 125 MCG PO DAILY, (Reported) Entered as Reported by: TRACY HESS on 09/01/19 1108 Fluoxetine HCl (Fluoxetine HCl) 20 Mg Tablet, 20 MG PO DAILY, (Reported) Entered as Reported by: ISABEL MENDIETA on 01/05/19 0855 Gabapentin (Gabapentin) 600 Mg Tablet, 600 MG PO DAILY, (Reported) Entered as Reported by: KITTY DAVIDSON on 08/19/20 1202 Insulin Detemir (Levemir Flextouch) 100 Unit/1 Ml Insuln.pen, 20 UNIT SQ BID, (Reported) Entered as Reported by: TRACY HESS on 09/01/19 1108 Lisinopril (Lisinopril) 20 Mg Tablet, 20 MG PO DAILY, (Reported) Entered as Reported by: TRACY HESS on 01/09/15 1414 Magnesium Oxide (Magnesium Oxide) 400 Mg Tablet, 400 MG PO DAILY, (Reported) Entered as Reported by: GAEL JENSEN on 01/28/15 1629 Metoprolol Tartrate (Metoprolol Tartrate) 25 Mg Tablet, 12.5 MG PO DAILY, (Reported) Entered as Reported by: ISABEL MENDIETA on 01/05/19 0855 Nystatin/Triamcinolone (Nystatin-Triamcinolone Cream) 15 Gm Cr, 15 GM TP PRN, (R eported) Entered as Reported by: KITTY DAVIDSON on 08/19/20 1204 Potassium Chloride (Potassium Chloride) 10 Meq Capsule.er, 10 MEQ PO BID, (Reported) Entered as Reported by: KITTY DAVIDSON on 08/19/20 1204 Semaglutide (Ozempic) 1 Mg/0.75 Ml Pen.injctr, 1 MG SQ WEEK, (Reported) Entered as Reported by: KITTY DAVIDSON on 08/19/20 1202 Sitagliptin Phosphate (Januvia) 100 Mg Tablet, 100 MG PO DAILY, (Reported) Entered as Reported by: ISABEL MENDIETA on 12/09/16 1204 Past Wgadifr-Ebgusx-Obdmfj Hx Patient Social History Drug of Choice: cannibus- past Smoking Status: Former Smoker Former Smoker, Quit: Nov 17, 2018 Type Used: Cigarettes 2nd Hand Smoke Exposure: Yes Recent Hopitalizations: No Alcohol Use?: No Have you traveled recently?: No Immunizations Up To Date Tetanus Booster (TDap): More than 5yrs Date of Pneumonia Vaccine: Apr 12, 2013 Date of Influenza Vaccine: Jan 09, 2021 Seasonal Allergies Seasonal Allergies: No Surgeries History of Surgeries: Yes Surgeries: Abdominal (ventral hernia repair), Bowel Surgery, Section, Eye Surgery, Hysterectomy, Oophorectomy, Orthopedic, Tonsillectomy, Tubal Ligation Respiratory History of Respiratory Disorde: Yes (BI-PAP, OXYGEN) Respiratory Disorders: Sleep Apnea, COPD, Emphysema Cardiovascular History of Cardiac Disorders: Yes Cardiac Disorders: Coronary Artery Disease, High Cholesterol, Hypertension Neurological History of Neurological Disord: Yes (chronic numbness rt proximal lateral thigh.) Neurological Disorders: Neuropathy 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 System Hx 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 Disorders: Yes (BENIGN OVARIAN TUMOR) Sexually Transmitted Disease: No HIV/AIDS: No Female 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 Disorders: 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, Tubal Ligation, Menopausal Genitourinary History of Genitourinary Disor: Yes (STAGE 3 KIDNEY FAILURE) Genitourinary Disorders: Kidney Stones, Renal Failure Gastrointestinal History of Gastrointestinal Di: Yes (Abdominal wall fistula) Gastrointestinal Disorders: Abdominal Hernia, Chronic Constipation, Diverticulosis, C-Diff Musculoskeletal History of Musculoskeletal Dis: Yes Musculoskeletal Disorders: Degenerate Disk Disease, Arthritis, Fibromyalgia, Chronic Back Pain Endocrine History of Endocrine Disorders: Yes (MORBID OBESITY) Endocrine Disorders: Diabetes, Non-Insulin dep HEENT History of HEENT Disorders: Yes (GLASSES, DENTURES) HEENT Disorders: Cataract Loss of Vision: Denies Hearing Impairment: Denies Cancer History of Cancer: No Psychosocial History of Psychiatric Problem: Yes Behavioral Health Disorders: Depression Integumentary History of Skin or Integumenta: No Blood Transfusions History of Blood Disorders: No Adverse Reaction to a Blood Tr: No (N/A) Family Medical History Significant Family History: Heart Disease (Father had AL), Diabetes (Father), Hypertension, Lung Disease (mother), Stroke (mother) Family Medial History: Arthritis 19 FATHER Cardiovascular disease 19 FATHER Completed stroke 19 MOTHER Diabetes mellitus 19 FATHER Hypertension 19 FATHER G8 SISTER Myocardial infarction 19 FATHER Respiratory disorder 19 MOTHER Review of Systems-General Constitutional: No diaphoresis, No fever; malaise, weakness EENTM: other (dry mouth); No blurred vision, No double vision, No mouth pain, No mouth swelling, No epistaxis Respiratory: No cough, No dyspnea on exertion, No hemoptysis Cardiovascular: No chest pain, No palpitations Gastrointestinal: abdominal pain; No jaundice; loss of appetite, nausea; No vomiting Genitourinary: No dysuria, No frequency, No hematuria Musculoskeletal: back pain, joint pain, joint swelling, muscle stiffness Skin: No change in color, No change in hair/nails; rash (on abdomen) Psychiatric/Neurological: Denies Anxiety; Depressed; Denies Pre-Existing Defic it, Denies Seizure, Denies Tremors Physical Exam-General Problems Physical Exam Vital Signs Vital Signs - First Documented 03/11/21 03/11/21 11:10 16:40 Temp 36.5 Pulse 74 Resp 18 B/P (MAP) 142/87 (105) Pulse Ox 95 O2 Delivery Room Air O2 Flow Rate 2.00 Capillary Refill : Less Than 3 Seconds General Appearance: mild distress, obese (morbidly) Eyes: Bilateral Eye PERRL, Bilateral Eye EOMI HEENT: pharynx normal; No scleral icterus (R), No scleral icterus (L) Neck: non-tender, supple Respiratory: lungs clear, normal breath sounds, no respiratory distress, no accessory muscle use Cardiovascular: regular rate, rhythm, no murmur Gastrointestinal: soft, no organomegaly, hernia (ventral), other (abdomen has foul smell, wet red rash around umbilicus, fistula in middle of umbilicus) Back: No no CVA tenderness, No no vertebral tenderness Extremities: no pedal edema, no calf tenderness Neurologic/Psychiatric: 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 nml as tested, alert, normal mood/affect, oriented x 3 Skin: normal color, warm/dry Lymphatic: no adenopathy (neck, axillary or inguinal ) Data Review Labs Laboratory Tests 03/11/21 12:30: White Blood Count 13.8H, Red Blood Count 4.99, Hemoglobin 13.7, Hematocrit 44, Mean Corpuscular Volume 87, Mean Corpuscular Hemoglobin 28, Mean Corpuscular Hemoglobin Concent 32, Red Cell Distribution Width 14.6H, Platelet Count 315, Mean Platelet Volume 9.5, Immature Granulocyte % (Auto) 1, Neutrophils (%) (Auto) 68, Lymphocytes (%) (Auto) 23, Monocytes (%) (Auto) 7, Eosinophils (%) (Auto) 1, Basophils (%) (Auto) 0, Neutrophils # (Auto) 9.3H, Lymphocytes # (Auto) 3.2, Monocytes # (Auto) 0.9, Eosinophils # (Auto) 0.2, Basophils # (Auto) 0.1, Immature Granulocyte # (Auto) 0.1, Prothrombin Time 13.5, INR Comment 1.0, Activated Partial Thromboplast Time 29, Sodium Level 139, Potassium Level 4.4, Chloride Level 102, Carbon Dioxide Level 25, Anion Gap 12, Blood Urea Nitrogen 17, Creatinine 1.16, Estimat Glomerular Filtration Rate 47, BUN/Creatinine Ratio 15, Glucose Level 126H, Calcium Level 10.1, Corrected Calcium 9.9, Total Bilirubin 0.5, Aspartate Amino Transf (AST/SGOT) 16, Alanine Aminotransferase (ALT/SGPT) 15, Alkaline Phosphatase 69, Total Protein 8.2, Albumin 4.3, Lipase 35 03/11/21 17:41: Glucometer 126H Radiology Date of Exam:03/11/21 CT ABDOMEN/PELVIS W CT ABDOMEN/PELVIS W TECHNIQUE: Multiple contiguous axial images were obtained through the abdomen and pelvis after administration of intravenous contrast. All CT scans use one or more of the following dose optimizing techniques: automated exposure control, MA and/or KvP adjustment based on patient size and exam type or iterative reconstruction. INDICATION: Midabdominal pain. Prior small bowel surgery with bowel injury. COMPARISON: 10/12/2020. FINDINGS: Lower chest: The lung bases are clear. No pericardial or pleural effusion. Peritoneum: No free intraperitoneal air or fluid. Liver and biliary system: Hypoattenuation of the liver raises possibility of hepatic steatosis. No focal hepatic lesion. The gallbladder is normal. No biliary duct dilation. Spleen and Pancreas: Spleen is normal. The pancreas enhances normally without mass lesion or peripancreatic inflammatory changes. Adrenals: Normal. tract: Bilateral cortical thinning of the kidneys is similar. Exophytic cyst off the lower pole of the left kidney is stable. Focal cortical scar with calcification in the lower pole of the right kidney is stable. No solid renal mass. No obstructive uropathy. Urinary bladder is normally filled without wall thickening. GI tract: Stomach is partially filled with contrast material. The appearance of the small bowel has not substantially changed since prior examination. The small bowel loops are fluid filled but nondilated. At the level of the umbilicus, the small bowel loops are closely adherent to the abdominal wall and there is a hyperdense intraluminal patch that is stable. The bowel loop at the level of the umbilicus is also mildly distended with fluid and air. No pericolonic inflammatory change. Vasculature and Lymph nodes: Normal caliber aorta. No abdominal or pelvic lymphadenopathy. Musculoskeletal: No concerning osseous lesion. IMPRESSION: 1. Stable appearance of the small bowel at the level of the umbilicus where there is associated scar and tightly adherent loops of small bowel abutting the abdominal wall. Similar to prior examination, the small bowel loop directly beneath the umbilicus is filled with air and fluid, but there is no definitive communication with the skin. If patient has leakage from the surgical scar/umbilicus, then enterocutaneous fistula is highly likely present. 2. Small bowel loops are fluid-filled and borderline dilated. There is no transition point and this could be due to ileus. If an additional follow-up imaging is necessary, small bowel follow-through may provide additional information as the contrast material on today's examination does not reach this level. Dictated by: Dictated on workstation # [id number] Dict: 03/11/21 1446 Trans: 03/11/21 1517 [id number] Interpreted by: TATE SOW MD Electronically signed by: TATE SOW MD 03/11/21 1517 Assessment/Plan Assessment/Plan Assessment/Plan Enterocutaneous Fistula Partial Small bowel obstruction Morbidly obese DM, HTN Pt is well known to me, have seen her in clinic and performed colonoscopy on her. 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 I saw her and told her I agreed with this assesment, chance of failure is too high with all her co-morbid conditions. I was trying to help her by monitoring weight loss; unfortunately, she actually continued to gain weight while I saw her. She is not taking responsibility for her conditions. She does have appt to see someone at for possible surgery. I told her I think it best we "limp along" and try to avoid surgery for now. I reviewed the CT myself and then discussed it with the Radiologist. She does not need any urgent or emergent surgery at this time; would keep her NPO, pain control and anti-emetics as needed. If she has return of bowel function would start her on clears. CT did not show any intra-abdominal fluid collection or inflammation. TOMAS MAE DO Mar 11, 2021 20:03
[2021-03-12 00:15] VITALS: BP 111/70
[2021-03-12 04:00] VITALS: BP 148/81
[2021-03-12] MEDS: LACTATED RINGERS 1,000 ML IV SCH ×4 (04:58→21:53)
[2021-03-12] MEDS: inSUlin ASPART (NovoLOG) 1 UNIT/0.01 ML (CHARGE PER UNIT) SC SCH ×4 (05:27→18:21)
[2021-03-12 05:44] LABS: BASOPHILS % (AUTO) 0 % (0-10); EOSINOPHILS # (AUTO) 0.2 10^3/uL (0.0-0.3); EOSINOPHILS % (AUTO) 2 % (0-10); HEMATOCRIT 38 % (35-52); HEMOGLOBIN 12.1 g/dL (11.5-16.0); LYMPHOCYTES # (AUTO) 2.1 10^3/uL (1.0-4.0); LYMPHOCYTES % (AUTO) 19 % (12-44); MEAN CORPUSCULAR HEMOGLOBIN 28 pg (25-34); MEAN CORPUSCULAR HGB CONC 32 g/dL (32-36); MEAN CORPUSCULAR VOLUME 88 fL (80-99); MEAN PLATELET VOLUME 9.6 fL (9.0-12.2); MONOCYTES # (AUTO) 1.2 10^3/uL (0.0-1.0); MONOCYTES % (AUTO) 11 % (0-12); NEUTROPHILS # (AUTO) 7.8 10^3/uL (1.8-7.8); NEUTROPHILS % (AUTO) 68 % (42-75); PLATELET COUNT 242 10^3/uL (130-400); WHITE BLOOD COUNT 11.5 10^3/uL (4.3-11.0)
[2021-03-12 06:14] LABS: POTASSIUM 4.1 MMOL/L (3.6-5.0)
[2021-03-12 06:15] LABS: CALCIUM 8.7 MG/DL (8.5-10.1)
[2021-03-12 06:19] LABS: CREATININE SERUM 1.18 MG/DL (0.60-1.30)
--- NOTE | 2021-03-12 07:40 | Progress Note - Surgery ---
PAIGE RIGGS 03/12/21 0740: Subjective Time Seen by a Provider: 06:33 Subjective/Events-last exam Pt reports that he has not been able to pass any stools or gas. States that he has had a few burps. Not having any current abdominal pain but last night he did have some abdominal pain where he felt like he had gas moving. Says that he is otherwise doing well and has no other concerns. Review of Systems General: No Chills, No Night Sweats HEENT: No Head Aches, No Visual Changes Pulmonary: No Dyspnea, No Cough Cardiovascular: No: Chest Pain, Palpitations Gastrointestinal: Abdominal Pain, Constipation; No: Nausea, Vomiting, Diarrhea Genitourinary: No Dysuria, No Hematuria Musculoskeletal: No: shoulder pain, arm pain, back pain Neurological: Numbness (some numbness in rt hand that he states is normal); No: Weakness Objective Exam Vital Signs Date Time Temp Pulse Resp B/P (MAP) Pulse Ox O2 Delivery O2 Flow Rate FiO2 03/12/21 04:00 36.4 68 22 148/81 (103) 95 Nasal Cannula 2.00 03/12/21 00:15 36.2 72 20 111/70 (84) 90 Nasal Cannula 2.00 03/11/21 20:00 Nasal Cannula 2.00 03/11/21 19:20 36.8 68 20 118/69 (85) 93 Nasal Cannula 2.00 03/11/21 19:10 Nasal Cannula 2.00 03/11/21 16:48 Nasal Cannula 2.00 03/11/21 16:40 36.7 68 18 154/83 (106) 96 Nasal Cannula 2.00 03/11/21 16:24 75 18 123/79 96 Room Air 03/11/21 11:10 36.5 74 18 142/87 (105) 95 Room Air Capillary Refill : Less Than 3 Seconds General Appearance: No Apparent Distress, Obese, Other (Patient is lying in bed with eyes closed but not sleeping. Does not appear to be in significant pain, is pleasant) HEENT: PERRL/EOMI; No Photophobia Neck: Non Tender, Supple Respiratory: Chest Non Tender, Lungs Clear, Normal Breath Sounds, No Respiratory Distress Cardiovascular: Regular Rate, Rhythm, No Murmur, Normal Peripheral Pulses Gastrointestinal: soft, tenderness (diffuse tenderness), other (abdomen has foul smell, wet red rash around umbilicus, fistula in middle of umbilicus) Extremity: Non Tender, No Calf Tenderness, Swelling (1+ Lower extremities ) Neurologic/Psychiatric: Alert, Normal Mood/Affect Skin: Normal Color, Warm/Dry Lymphatic: No Adenopathy Results Lab Laboratory Tests 03/11/21 12:30: White Blood Count 13.8H, Red Blood Count 4.99, Hemoglobin 13.7, Hematocrit 44, Mean Corpuscular Volume 87, Mean Corpuscular Hemoglobin 28, Mean Corpuscular Hemoglobin Concent 32, Red Cell Distribution Width 14.6H, Platelet Count 315, Mean Platelet Volume 9.5, Immature Granulocyte % (Auto) 1, Neutrophils (%) (Auto) 68, Lymphocytes (%) (Auto) 23, Monocytes (%) (Auto) 7, Eosinophils (%) (A uto) 1, Basophils (%) (Auto) 0, Neutrophils # (Auto) 9.3H, Lymphocytes # (Auto) 3.2, Monocytes # (Auto) 0.9, Eosinophils # (Auto) 0.2, Basophils # (Auto) 0.1, Immature Granulocyte # (Auto) 0.1, Prothrombin Time 13.5, INR Comment 1.0, A ctivated Partial Thromboplast Time 29, Sodium Level 139, Potassium Level 4.4, Chloride Level 102, Carbon Dioxide Level 25, Anion Gap 12, Blood Urea Nitrogen 17, Creatinine 1.16, Estimat Glomerular Filtration Rate 47, BUN/Creatinine Ratio 15, Glucose Level 126H, Calcium Level 10.1, Corrected Calcium 9.9, Total Bilirubin 0.5, Aspartate Amino Transf (AST/SGOT) 16, Alanine Aminotransferase (ALT/SGPT) 15, Alkaline Phosphatase 69, Total Protein 8.2, Albumin 4.3, Lipase 35 03/11/21 17:41: Glucometer 126H 03/11/21 21:22: Glucometer 110 03/12/21 00:15: Glucometer 98 03/12/21 05:23: White Blood Count 11.5H, Red Blood Count 4.29, Hemoglobin 12.1, Hematocrit 38, Mean Corpuscular Volume 88, Mean Corpuscular Hemoglobin 28, Mean Corpuscular Hemoglobin Concent 32, Red Cell Distribution Width 14.8H, Platelet Count 242, Mean Platelet Volume 9.6, Immature Granulocyte % (Auto) 0, Neutrophils (%) (Auto) 68, Lymphocytes (%) (Auto) 19, Monocytes (%) (Auto) 11, Eosinophils (%) (Auto) 2, Basophils (%) (Auto) 0, Neutrophils # (Auto) 7.8, Lymphocytes # (Auto) 2.1, Monocytes # (Auto) 1.2H, Eosinophils # (Auto) 0.2, Basophils # (Auto) 0.0, Immature Granulocyte # (Auto) 0.0, Sodium Level 140, Potassium Level 4.1, Chloride Level 104, Carbon Dioxide Level 24, Anion Gap 12, Blood Urea Nitrogen 21H, Creatinine 1.18, Estimat Glomerular Filtration Rate 46, BUN/Creatinine Ratio 18, Glucose Level 93, Glucometer 94, Calcium Level 8.7 Assessment/Plan Assessment/Plan Assessment/Plan Assessment Enterocutaneous Fistula Partial Small bowel obstruction Morbidly obese DM, HTN Plan Continue NPO until bowel movements begin then start on clears. Consider NG tube if abdominal becomes distended. Continue pain control and anti-emetics as needed. CT did not show any intra-abdominal fluid collection or inflammation. Continue to monitor discharge from fistula and change dressings as needed. [place] DO 03/12/21 1417: Subjective Time Seen by a Provider: 12:21 Subjective/Events-last exam Pt seen and examined, states she feels better than yesterday; but not totally improved. Did have very small formed BM, but doesn't think things are moving in her stomach. Review of Systems General: No Chills, No Night Sweats Pulmonary: No Dyspnea, No Cough Cardiovascular: No: Chest Pain, Palpitations Gastrointestinal: Abdominal Pain, Constipation; No: Nausea, Vomiting Objective Exam General Appearance: No Apparent Distress, Obese HEENT: PERRL/EOMI Respiratory: Lungs Clear, Normal Breath Sounds, No Accessory Muscle Use, No Respiratory Distress Cardiovascular: Regular Rate, Rhythm, No Murmur Gastrointestinal: soft, tenderness (diffuse tenderness but mild), other (abdomen has foul smell, wet red rash around umbilicus, fistula in middle of umbilicus) Assessment/Plan Assessment/Plan Assessment/Plan Enterocutaneous Fistula Partial Small bowel obstruction Morbidly obese DM, HTN Plan Continue NPO until pt has some flatus and then start on clears. Continue pain control and anti-emetics as needed. CT did not show any intra-abdominal fluid collection or inflammation. Continue to monitor discharge from fistula and change dressings as needed. Supervisory-Addendum Brief Verification & Attestation Participated in pt care: history, MDM, physical Personally performed: exam, history, MDM, supervision of care Care discussed with: Medical Student Procedures: n/a Verification and Attestation of Medical Student E/M Service A medical student performed and documented this service. I then reviewed and verified all information documented by the medical student and made mod ifications to such information, when appropriate. I personally performed a physical exam, medical decision making and then discussed any differences between the notes and made revisions as necessary to create one note. [place] , 03/12/21 , 14:18 PAIGE RIGGS Mar 12, 2021 07:40 [place] DO Mar 12, 2021 14:17
[2021-03-12 08:00] VITALS: BP 107/68
[2021-03-12] MEDS: PROMETHAZINE INJ 25 MG/ML (PHENERGAN) AMP IV PRN (08:10)
[2021-03-12] MEDS: HYDROmorphone 2 MG/ML VIAL (DILAUDID) IV PRN ×3 (08:11→20:11)
[2021-03-12 12:00] VITALS: BP 91/55
[2021-03-12] MEDS ORDERED: FLUO40CA PO (12:05)
[2021-03-12] MEDS ORDERED: ZINC50TA58 PO (12:05)
[2021-03-12] MEDS ORDERED: CYAN-23 PO (12:05)
[2021-03-12] MEDS ORDERED: FAMO20TA5 PO (12:05)
[2021-03-12] MEDS ORDERED: AMLO-250 PO (12:05)
[2021-03-12] MEDS ORDERED: BUPR150T14 PO (12:05)
[2021-03-12] MEDS ORDERED: GBPN600T PO (12:05)
[2021-03-12] MEDS ORDERED: ASPI-1238 PO (12:05)
[2021-03-12] MEDS ORDERED: ASCO500T17 PO (12:05)
[2021-03-12] MEDS ORDERED: FISH1CAP15 PO (12:05)
[2021-03-12] MEDS ORDERED: OXYB10TA29 PO (12:05)
[2021-03-12] MEDS ORDERED: MTP25TSR PO (12:05)
[2021-03-12] MEDS ORDERED: DAPA10TA PO (12:05)
[2021-03-12] MEDS ORDERED: INSU100I29 SQ (12:32)
--- NOTE | 2021-03-12 13:38 | Progress Note - Hospitalist ---
JESSICA MORRIS MED STUDENT 03/12/21 1338: Subjective HPI/CC On Admission Date Seen by Provider: Mar 12, 2021 Time Seen by Provider: 07:50 CC- Abdominal Pain/Fistula Mrs. 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 She states that she has looked into getting it repaired but she would have to lose 100 pounds before they would. She notes that the fistula drains normally and usually smells like stool. for the last 3-4 days she has noticed increased abdominal pain. She ate a carrot and beleives she saw pieces of the carrot coming through the fistula and that it had gotten a bit worse. She states the pain associated with it seems to flare in the evenings. She also has been feeling more tired lately. She does not recall any trauma or other event that would cause this to worsen. She states that it got worse today than it had ever been and thats why she came to the ED. She thinks having a bowel movement sometimes helps the pain, otherwise it usually hurts all the time. She denies constipationn but states she has chronic diarrhea due to her short bowel. She does have nausea, some blood in her fistula contents, and this has been going on for about 2 months. She states that she has had only small, unimpressive bowel movements lately and has not passed gas for a couple of days. She has been to the hospital for this before but that was about a year ago and it was not this bad. Subjective/Events-last exam Patient is lying in bed this morning and states that she is in a fair bit of pain. Surgery does not recommend surgery at this time and she will remain NPO until she is starting to move her bowels more. Nursing reports that she did have one small formed bowel movement this morning but the patient states that it was very small and not normal for her. She has not had anything to eat since she is NPO. She is getting adequate relief from her pain with her current pain meds. She is not having trouble with urination. She is able to get up on her own and go to the bathroom. Her fistula continues to drain this morning, there are some small reddish chunks of either blood or food particles on her bandage that smell of stool. Review of Systems General: No Chills, No Night Sweats HEENT: No Visual Changes Pulmonary: No Dyspnea, No Cough Cardiovascular: No: Chest Pain, Palpitations, Edema Gastrointestinal: Abdominal Pain, Constipation, Other (Enterocutaneous fistula drainage); No: Nausea, Vomiting, Melena, Hematochezia Genitourinary: No Dysuria, No Frequency, No Hematuria Musculoskeletal: No: leg pain, foot pain Objective Exam Vital Signs Vital Signs Date Time Temp Pulse Resp B/P (MAP) Pulse Ox O2 Delivery O2 Flow Rate FiO2 03/12/21 12:00 36.4 74 20 91/55 (67) 94 Nasal Cannula 2.00 Capillary Refill : Less Than 3 Seconds General Appearance: WD/WN, Mild Distress HEENT: PERRL/EOMI, Pharynx Normal, Moist Mucous Membranes Neck: Supple Respiratory: Chest Non Tender, Lungs Clear, Normal Breath Sounds, No Accessory Muscle Use, No Respiratory Distress Cardiovascular: Regular Rate, Rhythm, No Edema, No Murmur, Normal Peripheral Pulses Gastrointestinal: Normal Bowel Sounds (decreased), No Organomegaly, No Pulsatile Mass, Soft, Tenderness Rectal: Deferred Extremity: Normal Capillary Refill, Normal Inspection, Non Tender, No Calf Tenderness, No Pedal Edema Neurologic/Psychiatric: Alert, Oriented x3, Normal Mood/Affect Skin: Normal Color, Warm/Dry Results/Procedures Lab Laboratory Tests 03/12/21 05:23 Patient resulted labs reviewed. Assessment/Plan Assessment and Plan Assess & Plan/Chief Complaint Possible Enterocutaneous Fistula/Abdominal Pain -Imaging not conclusive but suggests there could be fistula -Surgery reccomends staying NPO until bowels move and then move to clear diet -Pain control as needed -NPO -Imaging does not suggest any dilation, but will re-imagine if clinical changes occur -IV fluids -Keep area bandaged and dry Diabetes -Continue patients diabetes medication Supervisory-Addendum Brief Verification & Attestation Participated in pt care: history, physical Personally performed: exam, history Care discussed with: Medical Student Procedures: n/a n/a DANG LICEA DO 03/13/21 0528: Subjective Subjective/Events-last exam Pt doing a lot better today Denies any significant new issues Will ambulate today IV fluids and antiemetics and pain medication are helping No other concerns at this time Review of Systems General: Fatigue, Malaise Gastrointestinal: Abdominal Pain Objective Exam General Appearance: No Apparent Distress, WD/WN, Chronically ill Respiratory: Lungs Clear, Normal Breath Sounds Cardiovascular: Regular Rate, Rhythm Assessment/Plan Assessment and Plan Assess & Plan/Chief Complaint Supportive care Ambulate Supervisory-Addendum Brief Verification & Attestation Participated in pt care: history, MDM, physical Personally performed: exam, history, MDM, supervision of care Care discussed with: Medical Student Procedures: n/a Results interpretation: Verified all documentation Verification and Attestation of Medical Student E/M Service A medical student performed and documented this service in my presence. I reviewed and verified all information documented by the medical student and made modifications to such information, when appropriate. I personally performed the physical exam and medical decision making. Dang Licea, Mar 13, 2021,05:28 JESSICA MORRIS MED STUDENT Mar 12, 2021 13:38 DANG LICEA DO Mar 13, 2021 05:28
--- NOTE | 2021-03-12 15:43 | Diagnostic Imaging Report ---
HISTORY: Small bowel obstruction. COMPARISON: 03/11/2021. TECHNIQUE: Frontal view of the chest. Supine and upright frontal views of the abdomen. FINDINGS: Lung volumes are normal. There is mild atelectasis in the left lung base. The cardiac silhouette is normal in size. There is no pleural effusion or pneumothorax. There are multiple distended loops of small bowel. No large collection of free air is seen. There is contrast throughout the colon. IMPRESSION: 1. Multiple distended loops of small bowel, may be due to partial small bowel obstruction. Contrast is seen at the colon. Dictated by: Dictated on workstation # [id number]
[2021-03-12 15:54] VITALS: BP 120/63
[2021-03-12] MEDS ORDERED: GABAPENTIN 600 MG (NEURONTIN) TAB PO PRN (17:30)
[2021-03-12 19:49] VITALS: BP 118/59
[2021-03-12] MEDS: GABAPENTIN 600 MG (NEURONTIN) TAB PO SCH (20:04)
[2021-03-13] VITALS: BP 129/71
[2021-03-13] MEDS: HYDROmorphone 2 MG/ML VIAL (DILAUDID) IV PRN ×4 (04:06→19:57)
[2021-03-13 04:44] VITALS: BP 124/64
[2021-03-13 06:21] LABS: BASOPHILS % (AUTO) 0 % (0-10); EOSINOPHILS # (AUTO) 0.2 10^3/uL (0.0-0.3); EOSINOPHILS % (AUTO) 3 % (0-10); HEMATOCRIT 35 % (35-52); LYMPHOCYTES # (AUTO) 1.9 10^3/uL (1.0-4.0); LYMPHOCYTES % (AUTO) 27 % (12-44); MEAN CORPUSCULAR HEMOGLOBIN 28 pg (25-34); MEAN CORPUSCULAR HGB CONC 31 g/dL (32-36); MEAN CORPUSCULAR VOLUME 90 fL (80-99); MEAN PLATELET VOLUME 9.5 fL (9.0-12.2); MONOCYTES # (AUTO) 0.8 10^3/uL (0.0-1.0); MONOCYTES % (AUTO) 11 % (0-12); NEUTROPHILS # (AUTO) 4.2 10^3/uL (1.8-7.8); NEUTROPHILS % (AUTO) 59 % (42-75); PLATELET COUNT 207 10^3/uL (130-400); WHITE BLOOD COUNT 7.1 10^3/uL (4.3-11.0)
[2021-03-13 06:37] LABS: ALBUMIN 3.3 GM/DL (3.2-4.5); POTASSIUM 3.9 MMOL/L (3.6-5.0)
[2021-03-13 06:38] LABS: CALCIUM 8.5 MG/DL (8.5-10.1)
[2021-03-13 06:40] LABS: TOTAL PROTEIN 6.1 GM/DL (6.4-8.2)
[2021-03-13 06:41] LABS: BILIRUBIN,TOTAL 0.6 MG/DL (0.1-1.0)
[2021-03-13 06:43] LABS: CREATININE SERUM 1.16 MG/DL (0.60-1.30)
[2021-03-13] MEDS: inSUlin ASPART (NovoLOG) 1 UNIT/0.01 ML (CHARGE PER UNIT) SC SCH ×4 (06:52→17:46)
[2021-03-13 07:30] VITALS: BP 133/68
--- NOTE | 2021-03-13 08:03 | Progress Note - Surgery ---
PAIGE RIGGS 03/13/21 0803: Subjective Date Seen by a Provider: Mar 13, 2021 Time Seen by a Provider: 07:09 Subjective/Events-last exam Pt reports that she has not passed any gas or had any bowel movements in the last day. Says her abdomen feels softer to her but is tender. States that she has been having clear discharge from her fistula. Denies having any fevers, chills, nausea or vomiting. Review of Systems General: No Chills, No Night Sweats HEENT: No Head Aches, No Visual Changes Pulmonary: No Cough Cardiovascular: No: Chest Pain, Palpitations Gastrointestinal: Abdominal Pain; No: Nausea, Vomiting Musculoskeletal: No: neck pain, back pain, leg pain Neurological: No: Weakness, Numbness Objective Exam Vital Signs Date Time Temp Pulse Resp B/P (MAP) Pulse Ox O2 Delivery O2 Flow Rate FiO2 03/13/21 04:44 36.6 65 21 124/64 (84) 96 Nasal Cannula 2.00 03/13/21 00:00 36.6 82 20 129/71 (90) 91 Nasal Cannula 2.00 03/12/21 20:41 36.4 03/12/21 20:00 Nasal Cannula 2.00 03/12/21 19:49 36.4 75 21 118/59 (78) 94 Nasal Cannula 2.00 03/12/21 15:54 36.8 73 18 120/63 (82) 94 Nasal Cannula 2.00 03/12/21 12:00 36.4 74 20 91/55 (67) 94 Nasal Cannula 2.00 03/12/21 08:00 36.2 64 20 107/68 (81) 95 Nasal Cannula 2.00 03/12/21 08:00 95 Nasal Cannula 2.00 Capillary Refill : Less Than 3 Seconds General Appearance: No Apparent Distress, Chronically ill, Obese HEENT: PERRL/EOMI; No Photophobia Neck: Non Tender, Supple Respiratory: Lungs Clear, Normal Breath Sounds Cardiovascular: Regular Rate, Rhythm, No Murmur, Normal Peripheral Pulses Gastrointestinal: soft, tenderness (diffuse tenderness but mild), other (abdomen has foul smell, wet red rash around umbilicus, fistula in middle of um bilicus with discharge) Extremity: Normal Capillary Refill, Non Tender, No Calf Tenderness, No Pedal Edema Neurologic/Psychiatric: Alert, Normal Mood/Affect Skin: Normal Color, Warm/Dry Lymphatic: No Adenopathy (cervical) Results Lab Laboratory Tests 03/12/21 11:34: Glucometer 92 03/13/21 02:25: Glucometer 83 03/13/21 05:56: White Blood Count 7.1, Red Blood Count 3.94, Hemoglobin 11.0L, Hematocrit 35, Mean Corpuscular Volume 90, Mean Corpuscular Hemoglobin 28, Mean Corpuscular Hemoglobin Concent 31L, Red Cell Distribution Width 14.7H, Platelet Count 207, Mean Platelet Volume 9.5, Immature Granulocyte % (Auto) 0, Neutrophils (%) (Auto) 59, Lymphocytes (%) (Auto) 27, Monocytes (%) (Auto) 11, Eosinophils (%) (Auto) 3, Basophils (%) (Auto) 0, Neutrophils # (Auto) 4.2, Lymphocytes # (Auto) 1.9, Monocytes # (Auto) 0.8, Eosinophils # (Auto) 0.2, Basophils # (Auto) 0.0, Immature Granulocyte # (Auto) 0.0 03/13/21 05:57: Sodium Level 142, Potassium Level 3.9, Chloride Level 105, Carbon Dioxide Level 26, Anion Gap 11, Blood Urea Nitrogen 16, Creatinine 1.16, Estimat Glomerular Filtration Rate 47, BUN/Creatinine Ratio 14, Glucose Level 84, Calcium Level 8.5 , Corrected Calcium 9.1, Total Bilirubin 0.6, Aspartate Amino Transf (AST/SGOT) 15, Alanine Aminotransferase (ALT/SGPT) 12, Alkaline Phosphatase 58, Total Protein 6.1L, Albumin 3.3 Assessment/Plan Assessment/Plan Assessment/Plan Enterocutaneous Fistula Partial Small bowel obstruction Morbidly obese DM, HTN Plan Continue NPO until pt has some flatus and then start on clears. Continue pain medication and anti-emetics as needed. CT done on 03/11 did not show any intra-abdominal fluid collection or inflammation. Abdominal XR done 03/12 showed multiple distended loops of small bowel with no collection of free air. Continue to monitor discharge from fistula and change dressings as needed. ROGE RIVER DO 03/13/21 1330: Subjective Time Seen by a Provider: 11:46 Subjective/Events-last exam Pt seen and examined, states she feels about the same as yesterday. No BM or flatus and thinks more stuff is coming out of the fistula. Review of Systems General: No Chills, No Night Sweats; Fatigue Pulmonary: No Cough Cardiovascular: No: Chest Pain, Palpitations Gastrointestinal: Abdominal Pain; No: Nausea, Vomiting Objective Exam General Appearance: No Apparent Distress, Chronically ill, Obese HEENT: PERRL/EOMI Respiratory: Lungs Clear, Normal Breath Sounds, No Accessory Muscle Use, No Respiratory Distress Cardiovascular: Regular Rate, Rhythm, No Murmur Gastrointestinal: soft, tenderness (diffuse tenderness but mild), other (abdomen has foul smell, wet red rash around umbilicus, fistula in middle of umbilicus with discharge) Assessment/Plan Assessment/Plan Assessment/Plan Enterocutaneous Fistula Partial Small bowel obstruction Morbidly obese DM, HTN Plan Will try clears and see how she does. Continue pain medication and anti-emetics as needed. CT done on 03/11 did not show any intra-abdominal fluid collection or inflammation. Abdominal XR done 03/12 showed multiple distended loops of small bowel with no collection of free air. Continue to monitor discharge from fistula and change dressings as needed. Supervisory-Addendum Brief Verification & Attestation Participated in pt care: history, MDM, physical Personally performed: exam, history, MDM, supervision of care Care discussed with: Medical Student Procedures: n/a Verification and Attestation of Medical Student E/M Service A medical student performed and documented this service. I then reviewed and verified all information documented by the medical student and made modifications to such information, when appropriate. I personally performed a physical exam, medical decision making and then discussed any differences between the notes and made revisions as necessary to create one note. Roge River , 03/13/21 , 13:30 PAIGE RIGGS Mar 13, 2021 08:03 ROGE RIVER DO Mar 13, 2021 13:30
[2021-03-13] MEDS: LACTATED RINGERS 1,000 ML IV SCH ×2 (09:11→17:47)
[2021-03-13] MEDS: buPROPion SR 150 MG (WELLBUTRIN SR) TAB PO SCH (09:17)
[2021-03-13] MEDS: GABAPENTIN 600 MG (NEURONTIN) TAB PO SCH ×2 (09:17→19:57)
[2021-03-13] MEDS: FLUoxetine HCL 20 MG (PROzac) CAP PO SCH (09:17)
[2021-03-13] MEDS: amLODIPine 5 MG (NORVASC) TAB PO SCH (09:17)
[2021-03-13 12:02] VITALS: BP 131/60
--- NOTE | 2021-03-13 13:35 | Progress Note - Hospitalist ---
JESSICA MORRIS MED STUDENT 03/13/21 1335: Subjective HPI/CC On Admission Date Seen by Provider: Mar 13, 2021 Time Seen by Provider: 08:00 CC: Abdominal pain HPI: This is a 65yoWF who has a history of enterocutaneous fistula from hernia surgery in the past who has had multiple bowel obstructions who was admitted for partial bowel obstruction and will need close monitoring in the meantime. Dr. River was consulted. Subjective/Events-last exam Patient is lying in bed this morning and states that she is in about the same amount of pain that she was in yesterday. She does say that the pain medication that she is on helps a lot when she receives it. She has not had a bowel movement since her small one yesterday, she also states that she is not passing any gas. She does believe that some gas is passing through her fistula. Surgery saw her this morning and encouraged her to start some clear liquids and she agreed. She did ambulate yesterday down the mccrary. She does not complain of any urinary episodes. She states that she has an appointment with a card assembler in on Apr 25. She does not have any other concerns or questions this morning. Review of Systems General: No Chills, No Night Sweats HEENT: No Head Aches, No Visual Changes, No Dysphasia Pulmonary: No Dyspnea, No Cough Cardiovascular: No: Chest Pain, Palpitations Gastrointestinal: Abdominal Pain, Constipation; No: Nausea, Vomiting, Diarrhea, Melena, Hematochezia Genitourinary: No Dysuria, No Frequency, No Hematuria Musculoskeletal: No: leg pain, foot pain Objective Exam Vital Signs Vital Signs Date Time Temp Pulse Resp B/P (MAP) Pulse Ox O2 Delivery O2 Flow Rate FiO2 03/13/21 12:02 36.6 65 22 131/60 (83) 94 Nasal Cannula 2.00 Capillary Refill : Less Than 3 Seconds General Appearance: No Apparent Distress, WD/WN, Obese HEENT: Pharynx Normal, Moist Mucous Membranes Neck: Supple Respiratory: Chest Non Tender, Lungs Clear, Normal Breath Sounds, No Accessory Muscle Use, No Respiratory Distress Cardiovascular: Regular Rate, Rhythm, No Edema, No Murmur, Normal Peripheral Pulses Gastrointestinal: No Normal Bowel Sounds (hypoactive); No Organomegaly, No Pulsatile Mass; No Non Tender (slightly tender to palpation); Soft Rectal: Deferred Extremity: Normal Capillary Refill, Normal Inspection, Non Tender, No Calf Tenderness, No Pedal Edema Neurologic/Psychiatric: Alert, Oriented x3 Skin: Normal Color, Warm/Dry Results/Procedures Lab Laboratory Tests 03/13/21 05:56 03/13/21 05:57 Patient resulted labs reviewed. Assessment/Plan Assessment and Plan Assess & Plan/Chief Complaint Enterocutaneous Fistula/Abdominal Pain -Pt denies bowel movement and flatus -Surgery reccomends starting clear diet today, pt agrees -Pain control as needed -IV fluids -Keep area bandaged and dry -Pt has appt set up in for Apr 25 Diabetes -Continue patients diabetes medication Supervisory-Addendum Brief Verification & Attestation Participated in pt care: history, physical Personally performed: exam, history Care discussed with: Medical Student Procedures: n/a n/a DANG LICEA DO 03/14/21 0516: Subjective Subjective/Events-last exam Pt still having some abdominal pain No BM Pain responds to pain meds Having drainage come from the enterocutaneous fistula so will monitor that closely and await for Dr. River Plan Review of Systems General: Fatigue, Malaise Gastrointestinal: Abdominal Pain Objective Exam General Appearance: No Apparent Distress, WD/WN, Chronically ill, Obese Respiratory: Lungs Clear, Normal Breath Sounds Cardiovascular: Regular Rate, Rhythm Neurologic/Psychiatric: Alert, Oriented x3 Assessment/Plan Assessment and Plan Assess & Plan/Chief Complaint Supportive care Bowel rest Supervisory-Addendum Brief Verification & Attestation Participated in pt care: history, MDM, physical Personally performed: exam, history, MDM, supervision of care Care discussed with: Medical Student Procedures: n/a Results interpretation: Verified all documentation Verification and Attestation of Medical Student E/M Service A medical student performed and documented this service in my presence. I reviewed and verified all information documented by the medical student and made modifications to such information, when appropriate. I personally performed the physical exam and medical decision making. Dang Licea, Mar 14, 2021,05:16 JESSICA MORRIS MED STUDENT Mar 13, 2021 13:35 DANG LICEA DO Mar 14, 2021 05:16
[2021-03-13 15:49] VITALS: BP 119/66
[2021-03-13 20:04] VITALS: BP 141/71
[2021-03-14] VITALS: BP 112/70
[2021-03-14] MEDS: HYDROmorphone 2 MG/ML VIAL (DILAUDID) IV PRN ×4 (00:34→20:11)
[2021-03-14] MEDS: inSUlin ASPART (NovoLOG) 1 UNIT/0.01 ML (CHARGE PER UNIT) SC SCH ×5 (00:34→23:35)
[2021-03-14] MEDS: LACTATED RINGERS 1,000 ML IV SCH ×3 (01:00→19:28)
[2021-03-14 05:00] VITALS: BP 118/64
[2021-03-14 05:50] LABS: BASOPHILS % (AUTO) 0 % (0-10); EOSINOPHILS # (AUTO) 0.2 10^3/uL (0.0-0.3); EOSINOPHILS % (AUTO) 3 % (0-10); HEMATOCRIT 35 % (35-52); HEMOGLOBIN 10.8 g/dL (11.5-16.0); LYMPHOCYTES # (AUTO) 1.7 10^3/uL (1.0-4.0); LYMPHOCYTES % (AUTO) 21 % (12-44); MEAN CORPUSCULAR HEMOGLOBIN 28 pg (25-34); MEAN CORPUSCULAR HGB CONC 31 g/dL (32-36); MEAN CORPUSCULAR VOLUME 90 fL (80-99); MEAN PLATELET VOLUME 9.6 fL (9.0-12.2); MONOCYTES % (AUTO) 12 % (0-12); NEUTROPHILS % (AUTO) 63 % (42-75); PLATELET COUNT 221 10^3/uL (130-400); WHITE BLOOD COUNT 7.9 10^3/uL (4.3-11.0)
[2021-03-14 06:13] LABS: ALBUMIN 3.4 GM/DL (3.2-4.5); POTASSIUM 3.8 MMOL/L (3.6-5.0)
[2021-03-14 06:15] LABS: CALCIUM 8.5 MG/DL (8.5-10.1)
[2021-03-14 06:16] LABS: TOTAL PROTEIN 6.4 GM/DL (6.4-8.2)
[2021-03-14 06:18] LABS: BILIRUBIN,TOTAL 0.6 MG/DL (0.1-1.0)
[2021-03-14 06:20] LABS: CREATININE SERUM 1.11 MG/DL (0.60-1.30)
--- NOTE | 2021-03-14 07:58 | Progress Note - Surgery ---
PAIGE RIGGS 03/14/21 0758: Subjective Date Seen by a Provider: Mar 14, 2021 Time Seen by a Provider: 06:55 Subjective/Events-last exam Pt has been started on a clear liquids diet and says that she is tolerating that well. She has had one episode of flatulence this morning. Denies any bowel movem ents. Reports having some sensations of "bubbling in her stomach". States that she is still having some inconsistent abdominal pain. Says that her abdomen does not feel distended or hard. Review of Systems General: No Chills, No Night Sweats HEENT: No Head Aches, No Visual Changes Pulmonary: No Dyspnea; Cough Cardiovascular: No: Chest Pain, Palpitations Gastrointestinal: Abdominal Pain; No: Nausea, Vomiting Genitourinary: No Dysuria, No Frequency Musculoskeletal: No: neck pain, arm pain, back pain, leg pain Neurological: No: Weakness, Numbness Objective Exam Vital Signs Date Time Temp Pulse Resp B/P (MAP) Pulse Ox O2 Delivery O2 Flow Rate FiO2 03/14/21 05:00 37.0 68 20 118/64 (82) 91 NIV CPAP 3.00 03/14/21 00:00 37.2 78 20 112/70 (84) 93 Nasal Cannula 2.00 03/13/21 20:04 36.5 75 20 141/71 (94) 93 Nasal Cannula 2.00 03/13/21 19:57 Nasal Cannula 2.00 03/13/21 15:49 36.6 74 20 119/66 (83) 94 Nasal Cannula 2.00 03/13/21 12:02 36.6 65 22 131/60 (83) 94 Nasal Cannula 2.00 03/13/21 10:19 Nasal Cannula 2.00 03/13/21 08:00 98 Nasal Cannula 2.00 I & O 03/14/21 07:00 Intake Total 1040 ml Balance 1040 ml Capillary Refill : Less Than 3 Seconds General Appearance: No Apparent Distress, Chronically ill, Obese HEENT: PERRL/EOMI; No Photophobia Neck: Non Tender, Supple Respiratory: Lungs Clear, Normal Breath Sounds Cardiovascular: Regular Rate, Rhythm, No Murmur, Normal Peripheral Pulses Gastrointestinal: soft, tenderness (diffuse tenderness but mild), other (abdomen has foul smell, wet red rash around umbilicus, fistula in middle of umbilicus with discharge) Extremity: Normal Capillary Refill, Non Tender, No Pedal Edema Neurologic/Psychiatric: Alert, Normal Mood/Affect Skin: Normal Color, Warm/Dry Lymphatic: No Adenopathy (cervical) Results Lab Laboratory Tests 03/13/21 11:13: Glucometer 66L 03/13/21 17:28: Glucometer 118H 03/14/21 00:34: Glucometer 84 03/14/21 05:08: Glucometer 85 03/14/21 05:18: White Blood Count 7.9, Red Blood Count 3.92, Hemoglobin 10.8L, Hematocrit 35, Mean Corpuscular Volume 90, Mean Corpuscular Hemoglobin 28, Mean Corpuscular Hemoglobin Concent 31L, Red Cell Distribution Width 14.7H, Platelet Count 221, Mean Platelet Volume 9.6, Immature Granulocyte % (Auto) 1, Neutrophils (%) (Auto) 63, Lymphocytes (%) (Auto) 21, Monocytes (%) (Auto) 12, Eosinophils (%) (Auto) 3, Basophils (%) (Auto) 0, Neutrophils # (Auto) 5.0, Lymphocytes # (Auto) 1.7, Monocytes # (Auto) 1.0, Eosinophils # (Auto) 0.2, Basophils # (Auto) 0.0, Immature Granulocyte # (Auto) 0.0, Sodium Level 141, Potassium Level 3.8, Chloride Level 104, Carbon Dioxide Level 27, Anion Gap 10, Blood Urea Nitrogen 11, Creatinine 1.11, Estimat Glomerular Filtration Rate 49, BUN/Creatinine Ratio 10, Glucose Level 84, Calcium Level 8.5, Corrected Calcium 9.0, Total Bilirubin 0.6, Aspartate Amino Transf (AST/SGOT) 16, Alanine Aminotransferase (ALT/SGPT) 12, Alkaline Phosphatase 56, Total Protein 6.4, Albumin 3.4 Assessment/Plan Assessment/Plan Assessment/Plan Enterocutaneous Fistula Partial Small bowel obstruction Morbidly obese DM, HTN Plan Pt started on clear liquid diet, seems to be tolerating it well. Has had 1 episode of flatulence. Continue pain medication and anti-emetics as needed. CT done on 03/11 did not show any intra-abdominal fluid collection or inflammation. Abdominal XR done 03/12 showed multiple distended loops of small bowel with no collection of free air. Continue to monitor discharge from fistula and change dressings as needed. ROGE RIVER DO 03/14/21 1201: Subjective Time Seen by a Provider: 09:53 Subjective/Events-last exam Pt seen and examined, states she is doing better and passed some gas. Thinks her belly is better and wants to try some more food. Review of Systems General: No Chills, No Night Sweats Pulmonary: No Dyspnea; Cough Cardiovascular: No: Chest Pain, Palpitations Gastrointestinal: Abdominal Pain; No: Nausea, Vomiting Objective Exam General Appearance: No Apparent Distress, Chronically ill, Obese Respiratory: Lungs Clear, Normal Breath Sounds, No Accessory Muscle Use, No Respiratory Distress Cardiovascular: Regular Rate, Rhythm, No Murmur Gastrointestinal: soft, tenderness (diffuse tenderness but mild), other (abdomen has foul smell, wet red rash around umbilicus, fistula in middle of umbilicus with discharge) Neurologic/Psychiatric: Alert, Oriented x3, Normal Mood/Affect Assessment/Plan Assessment/Plan Assessment/Plan Enterocutaneous Fistula Partial Small bowel obstruction - resolving Morbidly obese DM, HTN Plan Will try pt on soft diet, continue pain medication and anti-emetics as needed. Continue to monitor discharge from fistula and change dressings as needed. If she tolerates diet and starts having BMs probably ok to go home. We again talked about the need to lose weight and possible TPN prior to doing any surgery. I again told her the best place to get this done is at a Tertiary center and she stated she was going to try and lose weight. I spoke with her caregiver; who pulled me aside, to tell me that she usually doesn't even get out of bed to walk at home. "Not even to let her dog out". I told her that if she doesn't help herself we can't help her. Supervisory-Addendum Brief Verification & Attestation Participated in pt care: history, MDM, physical Personally performed: exam, history, MDM, supervision of care Care discussed with: Medical Student Procedures: n/a Verification and Attestation of Medical Student E/M Service A medical student performed and documented this service. I then reviewed and verified all information documented by the medical student and made modifications to such information, when appropriate. I personally performed a physical exam, medical decision making and then discussed any differences between the notes and made revisions as necessary to create one note. Roge River , 03/14/21 , 12:00 PAIGE RIGGS Mar 14, 2021 07:58 ROGE RIVER DO Mar 14, 2021 12:01
[2021-03-14 08:00] VITALS: BP 123/62
[2021-03-14] MEDS: GABAPENTIN 600 MG (NEURONTIN) TAB PO SCH ×2 (08:40→20:11)
[2021-03-14] MEDS: buPROPion SR 150 MG (WELLBUTRIN SR) TAB PO SCH (08:40)
[2021-03-14] MEDS: amLODIPine 5 MG (NORVASC) TAB PO SCH (08:40)
[2021-03-14] MEDS: FLUoxetine HCL 20 MG (PROzac) CAP PO SCH (08:40)
[2021-03-14 12:00] VITALS: BP 122/58
--- NOTE | 2021-03-14 13:22 | Progress Note - Hospitalist ---
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 Dr. River was consulted. Subjective/Events-last exam Pt is laying in bed this morning. She states that her pain is a little bit better that it had been on the previous days. She has not had any vomiting with her clear liquids. She did pass gas one time earlier in the morning when surgery student was rounding on her. She has been getting up and walking a bit and made it to the corner. She did speak with surgeon today who emphasized that she again needs to lose weight and the possibility of going on TPN. She will try eating a soft diet as she feels she may not have had a bowel movement due to being empty. Review of Systems General: No Chills, No Night Sweats HEENT: No Head Aches, No Visual Changes, No Ear Pain Pulmonary: No Dyspnea, No Cough, No Pleuritic Chest Pain Cardiovascular: No: Chest Pain, Palpitations, Edema Gastrointestinal: Abdominal Pain, Constipation; No: Nausea, Vomiting, Diarrhea, Melena Genitourinary: No Dysuria, No Hematuria Musculoskeletal: No: leg pain, foot pain Objective Exam Vital Signs Vital Signs Date Time Temp Pulse Resp B/P (MAP) Pulse Ox O2 Delivery O2 Flow Rate FiO2 03/14/21 12:00 35.6 88 20 122/58 (79) 94 Nasal Cannula 3.00 Capillary Refill : Less Than 3 Seconds General Appearance: No Apparent Distress, Chronically ill, Obese HEENT: Pharynx Normal, Moist Mucous Membranes Neck: Supple Respiratory: Chest Non Tender, Lungs Clear, Normal Breath Sounds, No Accessory Muscle Use, No Respiratory Distress Cardiovascular: Regular Rate, Rhythm, No Edema, No Murmur, Normal Peripheral Pulses Gastrointestinal: No Normal Bowel Sounds (hypoactive); Non Tender, Soft Extremity: Normal Capillary Refill, Normal Inspection, Non Tender, No Calf Tenderness Neurologic/Psychiatric: Alert, Oriented x3, Normal Mood/Affect Skin: Normal Color, Warm/Dry Results/Procedures Lab Laboratory Tests 03/14/21 05:18 Patient resulted labs reviewed. Assessment/Plan Assessment and Plan Assess & Plan/Chief Complaint Enterocutaneous Fistula/Abdominal Pain -Pt denies bowel movement, has had one episode of flatus -Surgery reccomends starting soft foods today, pt agrees -Pain control as needed -IV fluids -Keep area bandaged and dry -Pt has appt set up in for Apr 25 Diabetes -Continue patients diabetes medication Supervisory-Addendum Brief Verification & Attestation Participated in pt care: history, physical Personally performed: exam, history Care discussed with: Medical Student Procedures: n/a n/a DANG LICEA DO 03/15/21 0707: Subjective Subjective/Events-last exam Pt doing a lot better Dr. River thinks maybe deep TPN will be necessary for a couple of months Vital signs remain stable, Labs are okay No BM yet Clear liquid yesterday and advancing to soft diet today Passing gas Ambulating Review of Systems General: Fatigue, Malaise Objective Exam General Appearance: No Apparent Distress, WD/WN, Chronically ill Respiratory: Lungs Clear, Normal Breath Sounds Cardiovascular: Regular Rate, Rhythm Neurologic/Psychiatric: Alert, Oriented x3 Assessment/Plan Assessment and Plan Assess & Plan/Chief Complaint Supportive care TPN Supervisory-Addendum Brief Verification & Attestation Participated in pt care: history, MDM, physical Personally performed: exam, history, MDM, supervision of care Care discussed with: Medical Student Procedures: n/a Results interpretation: Verified all documentation Verification and Attestation of Medical Student E/M Service A medical student performed and documented this service in my presence. I reviewed and verified all information documented by the medical student and made modifications to such information, when appropriate. I personally performed the physical exam and medical decision making. Dang Licea, Mar 15, 2021,07:07 JESSICA MORRIS MED STUDENT Mar 14, 2021 13:22 DANG LICEA DO Mar 15, 2021 07:07
[2021-03-14 16:00] VITALS: BP 124/51
[2021-03-14 20:00] VITALS: BP 149/74
[2021-03-15] VITALS (7 sets, daily range): BP systolic 110–137; BP diastolic 63–79
[2021-03-15] MEDS: LACTATED RINGERS 1,000 ML IV SCH ×3 (01:27→21:56)
[2021-03-15] MEDS: HYDROmorphone 2 MG/ML VIAL (DILAUDID) IV PRN ×2 (01:27→08:17)
[2021-03-15] MEDS: inSUlin ASPART (NovoLOG) 1 UNIT/0.01 ML (CHARGE PER UNIT) SC SCH ×4 (05:24→23:48)
--- NOTE | 2021-03-15 07:27 | Progress Note - Surgery ---
PAIGE RIGGS 03/15/21 0727: Subjective Date Seen by a Provider: Mar 15, 2021 Time Seen by a Provider: 06:52 Subjective/Events-last exam Pt reports that she has had 3 episodes of flatus in the past day. Had a medium sized bowel movement. Denied seeing any blood or dark tarry substance in stool. Having some slight abdominal discomfort. Continuing to have drainage from fistula site. States that she is tolerating the soft diet that was started yesterday well. Review of Systems General: No Chills, No Night Sweats HEENT: No Head Aches, No Visual Changes Pulmonary: No Dyspnea, No Cough Cardiovascular: No: Chest Pain, Palpitations Gastrointestinal: Abdominal Pain; No: Nausea, Vomiting Genitourinary: No Dysuria, No Frequency Musculoskeletal: shoulder pain; No: neck pain, arm pain, back pain, leg pain Neurological: No: Weakness, Numbness Objective Exam Vital Signs Date Time Temp Pulse Resp B/P (MAP) Pulse Ox O2 Delivery O2 Flow Rate FiO2 03/15/21 04:34 36.8 59 18 110/63 (79) 95 NIV CPAP 2.00 03/15/21 00:00 36.6 72 19 137/73 (94) 93 Nasal Cannula 2.00 03/14/21 20:00 37.7 72 16 149/74 (99) 92 NIV CPAP 3.00 03/14/21 20:00 Nasal Cannula 2.00 03/14/21 16:00 37.8 71 18 124/51 (75) 92 Nasal Cannula 3.00 03/14/21 12:00 35.6 88 20 122/58 (79) 94 Nasal Cannula 3.00 03/14/21 08:00 36.7 75 16 123/62 (82) 90 NIV CPAP 3.00 I & O 03/15/21 07:00 Intake Total 1370 ml Balance 1370 ml Capillary Refill : Less Than 3 Seconds General Appearance: No Apparent Distress, Chronically ill, Obese HEENT: PERRL/EOMI; No Photophobia Neck: Non Tender, Supple Respiratory: Lungs Clear, Normal Breath Sounds, No Accessory Muscle Use, No Respiratory Distress Cardiovascular: Regular Rate, Rhythm, No Murmur, Normal Peripheral Pulses Gastrointestinal: soft, tenderness (diffuse tenderness but mild), other (abdomen has foul smell, wet red rash around umbilicus, fistula in middle of umbilicus with discharge) Extremity: Normal Capillary Refill, Normal Inspection, Non Tender, No Calf Tenderness Neurologic/Psychiatric: Alert, Normal Mood/Affect Skin: Normal Color, Warm/Dry Lymphatic: No Adenopathy (cervical) Results Lab Laboratory Tests 03/14/21 12:37: Glucometer 95 03/14/21 18:05: Glucometer 103 03/14/21 23:35: Glucometer 133H 03/15/21 05:21: Glucometer 107 Assessment/Plan Assessment/Plan Assessment/Plan Enterocutaneous Fistula Partial Small bowel obstruction - resolving Morbidly obese DM, HTN Plan Pt has been started on softs diet which she seems to be tolerating well, had a BM yesterday. Continue pain medication and anti-emetics as needed. Continue to monitor discharge from fistula and change dressings as needed. ROGE RIVER DO 03/15/21 1341: Subjective Time Seen by a Provider: 08:41 Subjective/Events-last exam Pt seen and examined, states she feels about the same. Passing some gas today but no BM today. Review of Systems General: No Chills, No Night Sweats HEENT: No Head Aches, No Visual Changes Pulmonary: No Dyspnea, No Cough Cardiovascular: No: Chest Pain, Palpitations Gastrointestinal: Abdominal Pain; No: Nausea, Vomiting Musculoskeletal: shoulder pain Objective Exam General Appearance: No Apparent Distress, Obese HEENT: PERRL/EOMI Respiratory: Lungs Clear, Normal Breath Sounds, No Accessory Muscle Use, No Respiratory Distress Cardiovascular: Regular Rate, Rhythm, No Murmur Gastrointestinal: soft, no organomegaly, tenderness (diffuse tenderness but mild), other (abdomen has foul smell, wet red rash around umbilicus, fistula in middle of umbilicus with discharge) Neurologic/Psychiatric: Alert, Normal Mood/Affect Assessment/Plan Assessment/Plan Assessment/Plan Enterocutaneous Fistula Partial Small bowel obstruction - resolved Morbidly obese DM, HTN Plan Pt has been started on softs diet which she seems to be tolerating well, had a BM yesterday. Continue pain medication and anti-emetics as needed. Continue to monitor discharge from fistula and change dressings as needed. Home when ok with Medicine. Supervisory-Addendum Brief Verification & Attestation Participated in pt care: history, MDM, physical Personally performed: exam, history, MDM, supervision of care Care discussed with: Medical Student Procedures: n/a Verification and Attestation of Medical Student E/M Service A medical student performed and documented this service. I then reviewed and verified all information documented by the medical student and made modifications to such information, when appropriate. I personally performed a physical exam, medical decision making and then discussed any differences between the notes and made revisions as necessary to create one note. Roge River , 03/15/21 , 13:41 PAIGE RIGGS Mar 15, 2021 07:27 ROGE RIVER DO Mar 15, 2021 13:41
[2021-03-15] MEDS: amLODIPine 5 MG (NORVASC) TAB PO SCH (08:16)
[2021-03-15] MEDS: GABAPENTIN 600 MG (NEURONTIN) TAB PO SCH ×2 (08:16→20:50)
[2021-03-15] MEDS: buPROPion SR 150 MG (WELLBUTRIN SR) TAB PO SCH (08:16)
[2021-03-15] MEDS: FLUoxetine HCL 20 MG (PROzac) CAP PO SCH (08:16)
--- NOTE | 2021-03-15 09:09 | Progress Note - Hospitalist ---
Subjective HPI/CC On Admission Date Seen by Provider: Mar 15, 2021 Time Seen by Provider: 11:00 CC: Abdominal pain HPI: This is a 65yoWF who has a history of enterocutaneous fistula from hernia surgery in the past who has had multiple bowel obstructions who was admitted for partial bowel obstruction and will need close monitoring in the meantime. Dr. River was consulted. Subjective/Events-last exam Patient doing a lot better Bowels are moving Added oxycodone since she wanted more Dilaudid and she is already at 1 mg IV every 4 Fistulous draining Ambulating well Decreasing IV fluid Conferred with Dr. River Review of Systems Gastrointestinal: Abdominal Pain Objective Exam Vital Signs Vital Signs Date Time Temp Pulse Resp B/P (MAP) Pulse Ox O2 Delivery O2 Flow Rate FiO2 03/16/21 04:00 36.0 69 20 126/69 (88) 93 Nasal Cannula 2.00 Capillary Refill : Less Than 3 Seconds General Appearance: No Apparent Distress, WD/WN, Chronically ill, Obese Respiratory: Lungs Clear, Normal Breath Sounds Cardiovascular: Regular Rate, Rhythm Neurologic/Psychiatric: Alert, Oriented x3, No Motor/Sensory Deficits, Normal Mood/Affect Results/Procedures Lab Patient resulted labs reviewed. Assessment/Plan Assessment and Plan Assess & Plan/Chief Complaint Assesment: ENterocutaneous fistula SBO DM Obesity COPD 03/15/2021: Decrease IV fluid Add oxycodone Ambulate Diagnosis/Problems Diagnosis/Problems (1) SBO (small bowel obstruction) Status: Acute (2) Enterocutaneous fistula Status: Acute (3) Diabetes mellitus, type 2 Status: Chronic (4) Obesity hypoventilation syndrome Status: Chronic ALEIDA LICEA DO Mar 15, 2021 09:09
[2021-03-15] MEDS ORDERED: ENOXAPARIN 40 MG/0.4 ML (LOVENOX) SYR SC SCH (12:30)
[2021-03-15] MEDS: ENOXAPARIN 40 MG/0.4 ML (LOVENOX) SYR SC SCH (21:55)
[2021-03-16 04:00] VITALS: BP 126/69
[2021-03-16] MEDS: inSUlin ASPART (NovoLOG) 1 UNIT/0.01 ML (CHARGE PER UNIT) SC SCH ×2 (05:09→11:33)
[2021-03-16 06:21] LABS: BASOPHILS % (AUTO) 1 % (0-10); EOSINOPHILS # (AUTO) 0.3 10^3/uL (0.0-0.3); EOSINOPHILS % (AUTO) 4 % (0-10); HEMATOCRIT 34 % (35-52); HEMOGLOBIN 10.7 g/dL (11.5-16.0); LYMPHOCYTES % (AUTO) 30 % (12-44); MEAN CORPUSCULAR HEMOGLOBIN 28 pg (25-34); MEAN CORPUSCULAR HGB CONC 31 g/dL (32-36); MEAN CORPUSCULAR VOLUME 88 fL (80-99); MEAN PLATELET VOLUME 9.7 fL (9.0-12.2); MONOCYTES # (AUTO) 0.8 10^3/uL (0.0-1.0); MONOCYTES % (AUTO) 12 % (0-12); NEUTROPHILS # (AUTO) 3.4 10^3/uL (1.8-7.8); NEUTROPHILS % (AUTO) 53 % (42-75); PLATELET COUNT 199 10^3/uL (130-400); WHITE BLOOD COUNT 6.5 10^3/uL (4.3-11.0)
[2021-03-16 06:36] LABS: ALBUMIN 3.4 GM/DL (3.2-4.5); POTASSIUM 3.8 MMOL/L (3.6-5.0)
[2021-03-16 06:37] LABS: CALCIUM 8.8 MG/DL (8.5-10.1)
[2021-03-16 06:39] LABS: TOTAL PROTEIN 6.3 GM/DL (6.4-8.2)
[2021-03-16 06:40] LABS: BILIRUBIN,TOTAL 0.4 MG/DL (0.1-1.0)
[2021-03-16 06:42] LABS: CREATININE SERUM 0.96 MG/DL (0.60-1.30)
[2021-03-16 07:53] VITALS: BP 126/72
[2021-03-16] MEDS: FLUoxetine HCL 20 MG (PROzac) CAP PO SCH (08:10)
[2021-03-16] MEDS: GABAPENTIN 600 MG (NEURONTIN) TAB PO SCH (08:10)
[2021-03-16] MEDS: amLODIPine 5 MG (NORVASC) TAB PO SCH (08:10)
[2021-03-16] MEDS: buPROPion SR 150 MG (WELLBUTRIN SR) TAB PO SCH (08:10)
--- NOTE | 2021-03-16 08:53 | Progress Note - Surgery ---
PAIGE RIGGS 03/16/21 0853: Subjective Date Seen by a Provider: Mar 16, 2021 Time Seen by a Provider: 07:55 Subjective/Events-last exam Pt reports that she has had 3 episodes of flatus this morning. No bowel movements in the last 24 hours. Denies having any abdominal pain when asked. A discharge is still present from her fistula. She states that she has not noticed any changes with the discharge. Review of Systems General: No Chills, No Night Sweats HEENT: No Head Aches, No Visual Changes Pulmonary: No Dyspnea, No Cough Cardiovascular: No: Chest Pain, Palpitations Gastrointestinal: No: Nausea, Vomiting, Abdominal Pain Genitourinary: No Dysuria, No Frequency Musculoskeletal: No: shoulder pain, back pain, leg pain Neurological: No: Weakness, Numbness Objective Exam Vital Signs Date Time Temp Pulse Resp B/P (MAP) Pulse Ox O2 Delivery O2 Flow Rate FiO2 03/16/21 07:53 36.4 66 18 126/72 (90) 92 NIV CPAP 2.00 03/16/21 07:35 Nasal Cannula 2.00 03/16/21 04:00 36.0 69 20 126/69 (88) 93 Nasal Cannula 2.00 03/15/21 23:49 37.0 68 20 132/67 (88) 94 Nasal Cannula 2.00 03/15/21 20:00 Nasal Cannula 2.00 03/15/21 20:00 36.4 71 20 119/68 (85) 94 Nasal Cannula 3.00 03/15/21 18:20 96 Nasal Cannula 2.00 03/15/21 16:00 36.7 71 22 134/64 (87) 92 NIV CPAP 2.00 03/15/21 11:52 36.2 67 20 124/79 (94) 93 Nasal Cannula 2.00 03/15/21 09:38 Nasal Cannula 2.00 I & O 03/16/21 07:00 Intake Total 3220 ml Balance 3220 ml Capillary Refill : Less Than 3 Seconds General Appearance: No Apparent Distress, Chronically ill, Obese HEENT: PERRL/EOMI; No Photophobia Neck: Non Tender, Supple Respiratory: Lungs Clear, Normal Breath Sounds Cardiovascular: Regular Rate, Rhythm, Normal Peripheral Pulses Gastrointestinal: soft, no organomegaly, tenderness (LUQ tenderness), other (abdomen has foul smell, wet red rash around umbilicus, fistula in middle of umbilicus with discharge) Extremity: Normal Capillary Refill, Non Tender, No Calf Tenderness Neurologic/Psychiatric: Alert, Oriented x3, No Motor/Sensory Deficits, Normal Mood/Affect Skin: Normal Color, Warm/Dry Lymphatic: No Adenopathy (cervical) Results Lab Laboratory Tests 03/15/21 11:20: Glucometer 111H 03/15/21 17:42: Glucometer 97 03/15/21 23:44: Glucometer 127H 03/16/21 05:08: Glucometer 105 03/16/21 06:02: White Blood Count 6.5, Red Blood Count 3.89, Hemoglobin 10.7L, Hematocrit 34L, Mean Corpuscular Volume 88, Mean Corpuscular Hemoglobin 28, Mean Corpuscular Hemoglobin Concent 31L, Red Cell Distribution Width 14.4, Platelet Count 199, Mean Platelet Volume 9.7, Immature Granulocyte % (Auto) 1, Neutrophils (%) (Auto) 53, Lymphocytes (%) (Auto) 30, Monocytes (%) (Auto) 12, Eosinophils (%) (Auto) 4, Basophils (%) (Auto) 1, Neutrophils # (Auto) 3.4, Lymphocytes # (Auto) 2.0, Monocytes # (Auto) 0.8, Eosinophils # (Auto) 0.3, Basophils # (Auto) 0.0, Immature Granulocyte # (Auto) 0.0, Sodium Level 141, Potassium Level 3.8, Chloride Level 103, Carbon Dioxide Level 29, Anion Gap 9, Blood Urea Nitrogen 11, Creatinine 0.96, Estimat Glomerular Filtration Rate 58, BUN/Creatinine Ratio 11, Glucose Level 114H, Calcium Level 8.8, Corrected Calcium 9.3, Total Bilirubin 0.4, Aspartate Amino Transf (AST/SGOT) 17, Alanine Aminotransferase (ALT/SGPT) 16, Alkaline Phosphatase 49, Total Protein 6.3L, Albumin 3.4 Assessment/Plan Assessment/Plan Assessment/Plan Assessment Enterocutaneous Fistula Partial Small bowel obstruction - resolved Morbidly obese DM HTN Plan Pt has been started on softs diet which she seems to be tolerating well, having often episodes of flatus. No BMs in the last day. Continue pain medication and anti-emetics as needed. Continue to monitor discharge from fistula and change dressings as needed. Can go home when ok with medicine TOMAS MAE DO 03/16/21 1701: Supervisory-Addendum Brief Verification & Attestation Participated in pt care: other (pt left before I saw her) Personally performed: other (pt left before I saw her) Care discussed with: Medical Student Procedures: n/a pt left before I saw her PAIGE RIGGS Mar 16, 2021 08:53 TOMAS MAE DO Mar 16, 2021 17:01
[2021-03-16 11:31] VITALS: BP 111/64
[2021-03-16] MEDS: ENOXAPARIN 40 MG/0.4 ML (LOVENOX) SYR SC SCH (11:33)
[2021-03-16] MEDS ORDERED: OXC5T PO (12:08)
--- NOTE | 2021-03-16 12:09 | Discharge Summary ---
Discharge Summary Hospital Course Was the Problem List Reviewed?: Yes Problems/Dx: (1) SBO (small bowel obstruction) Status: Acute (2) Enterocutaneous fistula Status: Acute (3) Diabetes mellitus, type 2 Status: Chronic (4) Obesity hypoventilation syndrome Status: Chronic Hospital Course Date of Admission: Mar 11, 2021 at 15:20 Admission Diagnosis : Family Physician/Provider: [facility] Date of Discharge: 03/16/21 Discharge Diagnosis: Partial bowel obstruction, enterocutaneous fistula, morbid obesity BMI 48 Hospital Course: Short course after admitted for partial bowel obstruction and Dr. River consulted. Patient was placed on IV fluids and n.p.o. status. Pain was controlled. Overall patient ultimately passed the obstruction was able to tolerate a soft diet and she has an appoint with Dr. Benz for extensive bowel surgery. Labs and Pending Lab Test: Laboratory Tests 03/15/21 17:42: Glucometer 97 03/15/21 23:44: Glucometer 127H 03/16/21 05:08: Glucometer 105 03/16/21 06:02: White Blood Count 6.5, Red Blood Count 3.89, Hemoglobin 10.7L, Hematocrit 34L, Mean Corpuscular Volume 88, Mean Corpuscular Hemoglobin 28, Mean Corpuscular Hemoglobin Concent 31L, Red Cell Distribution Width 14.4, Platelet Count 199, Mean Platelet Volume 9.7, Immature Granulocyte % (Auto) 1, Neutrophils (%) (Auto) 53, Lymphocytes (%) (Auto) 30, Monocytes (%) (Auto) 12, Eosinophils (%) (Auto) 4, Basophils (%) (Auto) 1, Neutrophils # (Auto) 3.4, Lymphocytes # (Auto) 2.0, Monocytes # (Auto) 0.8, Eosinophils # (Auto) 0.3, Basophils # (Auto) 0.0, Immature Granulocyte # (Auto) 0.0, Sodium Level 141, Potassium Level 3.8, Chloride Level 103, Carbon Dioxide Level 29, Anion Gap 9, Blood Urea Nitrogen 11, Creatinine 0.96, Estimat Glomerular Filtration Rate 58, BUN/Creatinine Ratio 11, Glucose Level 114H, Calcium Level 8.8, Corrected Calcium 9.3, Total Bilirubin 0.4, Aspartate Amino Transf (AST/SGOT) 17, Alanine Aminotransferase (ALT/SGPT) 16, Alkaline Phosphatase 49, Total Protein 6.3L, Albumin 3.4 03/16/21 11:29: Glucometer 172H Home Meds Active Oxyir Tablet (Oxycodone HCl) 5 Mg Tab 5 Mg PO Q4H PRN Reported Levemir Flextouch (Insulin Detemir) 100 Unit/1 Ml Insuln.pen 20 Unit SQ BID PRN LAST FILLED 10-08-2020 #5PENS/37 DAY SUPPLY Bupropion HCl Sr (Bupropion HCl) 150 Mg Tablet.er 150 Mg PO DAILY Aspirin EC (Aspirin) 81 Mg Tablet.dr 81 Mg PO DAILY Zinc 50 Mg Tablet 50 Mg PO DAILY Vitamin B-12 (Cyanocobalamin (Vitamin B-12)) 1,000 Mcg Capsule 1,000 Mcg PO DAILY Vitamin C (Ascorbic Acid) 500 Mg Tablet 500 Mg PO DAILY Fish Oil 1,200 mg Fish Oil (Fish Oil/Dha/Epa) 1 Each Capsule 1 Each PO DAILY Gabapentin 600 Mg Tablet 600 Mg PO 1200 PRN Farxiga (Dapagliflozin Propanediol) 10 Mg Tablet 10 Mg PO DAILY Fluoxetine HCl 40 Mg Capsule 40 Mg PO DAILY Amlodipine Besylate 5 Mg Tablet 5 Mg PO DAILY Oxybutynin Chloride ER (Oxybutynin Chloride) 10 Mg Tab.er.24 10 Mg PO DAILY Famotidine 20 Mg Tablet 20 Mg PO HS Metoprolol Succinate 25 Mg Tab.er.24h 25 Mg PO DAILY Gabapentin 600 Mg Tablet 600 Mg PO BID Ozempic (Semaglutide) 1 Mg/0.75 Ml Pen.injctr 1 Mg SQ FRI Vitamin D3 (Cholecalciferol (Vitamin D3)) 125 Mcg Tablet 125 Mcg PO DAILY Atorvastatin Calcium 40 Mg Tablet 40 Mg PO DAILY Magnesium Oxide 400 Mg Tablet 400 Mg PO DAILY Lisinopril 20 Mg Tablet 20 Mg PO HS Assessment/Pt Instructions PCP in 1 week Discharge Planning: <30 minutes discharge planning Discharge Instructions Discharge Diet: Soft Diet Activity as Tolerated: Yes Discharge Physical Examination Vital Signs Vital Signs Date Time Temp Pulse Resp B/P (MAP) Pulse Ox O2 Delivery O2 Flow Rate FiO2 03/16/21 11:31 36.7 73 18 111/64 (80) 92 Nasal Cannula 2.00 General Appearance: No Apparent Distress, WD/WN, Chronically ill, Obese Allergies: Coded Allergies: No Known Drug Allergies (Unverified , 11/16/18) Discharge Summary Date of Admission Mar 11, 2021 at 15:20 Date of Discharge Discharge Date: Mar 16, 2021 Admission Diagnosis Assessment: Partial bowel obstruction versus ileus Enterocutaneous fistula Obesity Hypertension Neuropathy Plan: Supportive care Appreciate general surgery Discharge Diagnosis Assesment: ENterocutaneous fistula SBO DM Obesity COPD 03/15/2021: Decrease IV fluid Add oxycodone Ambulate (1) SBO (small bowel obstruction) Status: Acute (2) Enterocutaneous fistula Status: Acute (3) Diabetes mellitus, type 2 Status: Chronic (4) Obesity hypoventilation syndrome Status: Chronic ALEIDA LICEA DO Mar 16, 2021 12:09
== END 2021-03-16 13:10 | disposition home or self-care (01) | DRG 389 ==
LOC: EDUNIT# 10:49 → ER 10:51 → 4TH 15:20
PROVIDERS: ADMIT Internal Medicine; ATTEND Internal Medicine
DX: K56.600 Partial intestinal obstruction, unspecified as to cause (principal); K63.2 Fistula of intestine; Z68.42 Body mass index [BMI] 45.0-49.9, adult; I13.0 Hypertensive heart and chronic kidney disease with heart failure and stage 1 through stage 4 chronic kidney disease, or unspecified chronic kidney disease; E66.01 Morbid (severe) obesity due to excess calories; E11.40 Type 2 diabetes mellitus with diabetic neuropathy, unspecified; E78.5 Hyperlipidemia, unspecified; M79.7 Fibromyalgia; M19.90 Unspecified osteoarthritis, unspecified site; I50.9 Heart failure, unspecified; N18.9 Chronic kidney disease, unspecified; G47.33 Obstructive sleep apnea (adult) (pediatric); Z79.4 Long term (current) use of insulin; Z79.899 Other long term (current) drug therapy; J43.9 Emphysema, unspecified; I25.10 Atherosclerotic heart disease of native coronary artery without angina pectoris; E78.00 Pure hypercholesterolemia, unspecified; K57.90 Diverticulosis of intestine, part unspecified, without perforation or abscess without bleeding; G89.29 Other chronic pain; M54.9 Dorsalgia, unspecified; Z87.891 Personal history of nicotine dependence; F32.A Depression, unspecified
CPT/HCPCS: 36415; 74022; 74177; 76705; 80048; 80053; 82947; 83690; 85025; 85610; 85730; 94760

== ENCOUNTER 2021-07-05 06:43 | Emergency (ER) | payer MEDICARE, MEDICAID ==
[~2021-07-05] VITALS: Ht 160 cm; Wt 123.0 kg
[~2021-07-05 06:43] MED LIST changes: +AMLO-250 PO; +ASCO500T17 PO; +ASPI-1238 PO; +BUPR150T14 PO; +CYAN-23 PO; +DAPA10TA PO; +FISH1CAP15 PO; -FLUC150T2 PO; +FLUC150T41 PO; +MTP25TSR PO; +OXC5T PO; +OXYB10TA29 PO; +ZINC50TA58 PO
--- NOTE | 2021-07-05 07:05 | ED Integumentary General ---
General Chief Complaint: Skin/Wound Problems Stated Complaint: CHRONIC WOUND Nursing Triage Note: BROUGHT IN BY [facility] FOR INCREASED LEAKAGE SINCE 219907/04/21 FROM CHRONIC ABDOMINAL WOUND. REPORTS INCREASED COUGH X3-4 DAYS. Source: patient Exam Limitations: no limitations (JESSICA MORRIS MED STUDENT) History of Present Illness Date Seen by Provider: Jul 05, 2021 Time Seen by Provider: 06:50 Initial Comments Mrs. Bentley is a 65yo patient with PMH of hernia repair and resultant enterocutaneous fistula that arrived to ED via EMS this morning due to some increased discharge from her fistula . She also believes there is a new opening that is leaking in her umbilicus. She states she has also been coughing a lot lately. She was seen at [facility] clinic in [place] where she states she was told she had allergies, she tested negative for flu and states because of this they decided not to test her for covid. Not sure at this point if there could be a misunderstanding over her clinic visit. She states she has had a fever and a pretty good cough for the past couple of days. Besides that and the increased output she does not have any other complaints. (JESSICA MORRIS MED STUDENT) Initial Comments Jonathan also complains of some increased irritation around the fistula site. She does not necessarily have any increased tenderness or evidence of abscess or infection, but she notes there is an increased burning at the fistula opening with the increased volume of flow. She is afebrile this morning but notes a fever at home last night. (ERASTO LERNER MD) Allergies and Home Medications Allergies Coded Allergies: No Known Drug Allergies (Unverified , 11/16/18) Patient Home Medication List Home Medication List Reviewed: Yes (ERASTO LERNER MD) Amlodipine Besylate (Amlodipine Besylate) 5 Mg Tablet, 5 MG PO DAILY, (Reported) Entered as Reported by: ROSA WALKER on 03/12/21 1205 Ascorbic Acid (Vitamin C) 500 Mg Tablet, 500 MG PO DAILY, (Reported) Entered as Reported by: ROSA WALKER on 03/12/21 1205 Aspirin (Aspirin EC) 81 Mg Tablet.dr, 81 MG PO DAILY, (Reported) Entered as Reported by: ROSA WALKER on 03/12/21 1205 Atorvastatin Calcium (Atorvastatin Calcium) 40 Mg Tablet, 40 MG PO DAILY, (Reported) Entered as Reported by: KING LOPEZ on 11/16/18 1602 Bupropion HCl (Bupropion HCl Sr) 150 Mg Tablet.er, 150 MG PO DAILY, (Reported) Entered as Reported by: ROSA WALKER on 03/12/21 120 Cholecalciferol (Vitamin D3) (Vitamin D3) 125 Mcg Tablet, 125 MCG PO DAILY, (Reported) Entered as Reported by: TRACY HESS on 09/01/19 1108 Cyanocobalamin (Vitamin B-12) (Vitamin B-12) 1,000 Mcg Capsule, 1,000 MCG PO DAILY, (Reported) Entered as Reported by: ROSA WALKER on 03/12/21 120 Dapagliflozin Propanediol (Farxiga) 10 Mg Tablet, 10 MG PO DAILY, (Reported) Entered as Reported by: ROSA WALKER on 03/12/21 1205 Famotidine (Famotidine) 20 Mg Tablet, 20 MG PO HS, (Reported) Entered as Reported by: ROSA WALKER on 03/12/21 120 Fish Oil/Dha/Epa (Fish Oil 1,200 mg Fish Oil) 1 Each Capsule, 1 EACH PO DAILY, (Reported) Entered as Reported by: ROSA WALKER on 03/12/21 120 Fluconazole (Diflucan) 150 Mg Tablet, 150 MG PO UD Prescribed by: ERASTO SORENSEN on 07/05/21 0820 Fluoxetine HCl (Fluoxetine HCl) 40 Mg Capsule, 40 MG PO DAILY, (Reported) Entered as Reported by: ROSA WALKER on 03/12/21 1205 Gabapentin (Gabapentin) 600 Mg Tablet, 600 MG PO BID, (Reported) Entered as Reported by: KITTY DAVIDSON on 08/19/20 1202 Gabapentin (Gabapentin) 600 Mg Tablet, 600 MG PO 1200 PRN for PAIN-BREAKTHROUGH, (Reported) Entered as Reported by: ROSA WALKER on 03/12/21 120 Hydrocodone/Acetaminophen (Hydrocodone-Acetamin 5-325 mg) 1 Each Tablet, 1 TAB PO Q6H PRN for PAIN-BREAKTHROUGH Prescribed by: ERASTO SORENSEN on 07/05/21 0821 Insulin Detemir (Levemir Flextouch) 100 Unit/1 Ml Insuln.pen, 20 UNIT SQ BID PRN for HYPERGLYCEMIA, (Reported) Entered as Reported by: ROSA WALKER on 03/12/21 1232 Levofloxacin (Levofloxacin) 750 Mg Tablet, 750 MG PO DAILY Prescribed by: ERASTO SORENSEN on 07/05/21 0820 Lisinopril (Lisinopril) 20 Mg Tablet, 20 MG PO HS, (Reported) Entered as Reported by: TRACY HESS on 01/09/15 1414 Magnesium Oxide (Magnesium Oxide) 400 Mg Tablet, 400 MG PO DAILY, (Reported) Entered as Reported by: GAEL JENSEN on 01/28/15 1629 Metoprolol Succinate (Metoprolol Succinate) 25 Mg Tab.er.24h, 25 MG PO DAILY, (Reported) Entered as Reported by: ROSA WALKER on 03/12/21 1205 Oxybutynin Chloride (Oxybutynin Chloride ER) 10 Mg Tab.er.24, 10 MG PO DAILY, (Reported) Entered as Reported by: ROSA WALKER on 03/12/21 1205 Oxycodone Hcl (Oxyir Tablet) 5 Mg Tab, 5 MG PO Q4H PRN for PAIN-SEVERE (8-10) Prescribed by: ALEIDA LICEA on 03/16/21 1208 Semaglutide (Ozempic) 1 Mg/0.75 Ml Pen.injctr, 1 MG SQ FRI, (Reported) Entered as Reported by: KITTY DAVIDSON on 08/19/20 1202 Zinc (Zinc) 50 Mg Tablet, 50 MG PO DAILY, (Reported) Entered as Reported by: ROSA WALKER on 03/12/21 1205 Review of Systems Review of Systems Constitutional: No chills; fever EENTM: No hearing loss, No vision loss Respiratory: cough, short of breath Cardiovascular: No chest pain, No palpitations Gastrointestinal: No abdominal pain, No constipation, No diarrhea, No nausea, No vomiting; other (enterocutraneous fistula around umbilicus) Genitourinary: No dysuria, No hematuria Musculoskeletal: No joint pain, No joint swelling Skin: No lesions, No rash Psychiatric/Neurological: Denies Headache, Denies Numbness (JESSICA MORRIS MED STUDENT) Past Jdecrin-Exsids-Ptqcjl Hx Patient Social History Tobacco Use?: No Substance use?: No Alcohol Use?: Yes Alcohol Frequency: Once in a while Pt feels they are or have been: No (JESSICA MORRIS MED STUDENT) Immunizations Up To Date Tetanus Booster (TDap): More than 5yrs First/Initial COVID19 Vaccinat: JANUARY 2021 Second COVID19 Vaccination Darwin: FEBRUARY 2021 COVID19 Vaccine Broach Setter: SRI (JESSICA MORRIS) Seasonal Allergies Seasonal Allergies: No (JESSICA MORRIS) Past Medical History Surgery/Hospitalization HX: ENTEROCUTANEUS FISTULA, LAPROSCOPIC HERNIA REPAIR, C-SECT, HYSTERECTOMY, T/A COPD, HTN, HYPERLIPIDEMIA, IDDM, FIBROMYALGIA, DJD, CHF, BRAYAN, CKD, CAD Surgeries: Yes Abdominal Respiratory: Yes (BI-PAP, OXYGEN) COPD Currently Using CPAP: No Currently Using BIPAP: Yes Cardiac: Yes High Cholesterol, Hypertension Neurological: Yes (chronic numbness rt proximal lateral thigh.) Neuropathy 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 Disorders: Yes (BENIGN OVARIAN TUMOR) Female 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 Disorders: Denies VIDEO PRODUCTION INTERN History: Hysterectomy, Tubal Ligation, Menopausal Sexually Transmitted Disease: No HIV/AIDS: No Genitourinary: Yes (STAGE 3 KIDNEY FAILURE) Kidney Stones, Renal Failure Gastrointestinal: Yes (Abdominal wall fistula) Abdominal Hernia, Chronic Constipation, Diverticulosis, C-Diff Musculoskeletal: Yes Degenerate Disk Disease, Arthritis, Fibromyalgia, Chronic Back Pain Endocrine: Yes (MORBID OBESITY) Diabetes, Non-Insulin dep HEENT: Yes (GLASSES, DENTURES) Cataract Loss of Vision: Denies Hearing Impairment: Denies Cancer: No Psychosocial: Yes Depression Integumentary: No Blood Disorders: No Adverse Reaction/Blood Tranf: No (N/A) (JESSICA MORRIS STUDENT) Family Medical History Arthritis 19 FATHER Cardiovascular disease 19 FATHER Completed stroke 19 MOTHER Diabetes mellitus 19 FATHER Hypertension 19 FATHER G8 SISTER Myocardial infarction 19 FATHER Respiratory disorder 19 MOTHER Heart Disease, Diabetes, Hypertension, Lung Disease, Stroke (JESSICA MORRIS STUDENT) Physical Exam Vital Signs Vital Signs - First Documented 07/05/21 06:47 Temp 36.8 Pulse 91 Resp 18 B/P (MAP) 143/77 (99) Pulse Ox 94 O2 Delivery Nasal Cannula O2 Flow Rate 3.00 (ERASTO LERNER MD) Vital Signs Capillary Refill : Less Than 3 Seconds (JESSICA MORRIS MED STUDENT) General Appearance: obese, other (chronically ill) Cardiovascular: regular rate, rhythm, no edema, no murmur Respiratory: chest non-tender, lungs clear, normal breath sounds Gastrointestinal: normal bowel sounds, non tender, soft, other (Fistula noted around umbilicus, visualized to be draining with valsalva. There is some redness in the area but does not look infected. ) Extremities: non-tender, no pedal edema, no calf tenderness Neurologic/Psychiatric: alert, normal mood/affect, oriented x 3 Skin: normal color, warm/dry (JESSICA MORRIS [employer] STUDENT) Procedures/Interventions Date of ETT Placement: Nov 20, 2018 Time of ETT Placement: 1505 (JESSICA MORRIS [employer] STUDENT) Progress/Results/Core Measures Results/Orders Lab Results Laboratory Tests Test 07/05/21 07:00 Range/Units White Blood Count 8.6 4.3-11.0 10^3/uL Red Blood Count 4.39 3.80-5.11 10^6/uL Hemoglobin 11.9 11.5-16.0 g/dL Hematocrit 38 35-52 % Mean Corpuscular Volume 87 80-99 fL Mean Corpuscular Hemoglobin 27 25-34 pg Mean Corpuscular Hemoglobin Concent 31 L 32-36 g/dL Red Cell Distribution Width 15.8 H 10.0-14.5 % Platelet Count 246 130-400 10^3/uL Mean Platelet Volume 9.3 9.0-12.2 fL Immature Granulocyte % (Auto) 1 % Neutrophils (%) (Auto) 55 42-75 % Lymphocytes (%) (Auto) 25 12-44 % Monocytes (%) (Auto) 16 H 0-12 % Eosinophils (%) (Auto) 3 0-10 % Basophils (%) (Auto) 0 0-10 % Neutrophils # (Auto) 4.7 1.8-7.8 10^3/uL Lymphocytes # (Auto) 2.2 1.0-4.0 10^3/uL Monocytes # (Auto) 1.4 H 0.0-1.0 10^3/uL Eosinophils # (Auto) 0.2 0.0-0.3 10^3/uL Basophils # (Auto) 0.0 0.0-0.1 10^3/uL Immature Granulocyte # (Auto) 0.0 0.0-0.1 10^3/uL Sodium Level 140 135-145 MMOL/L Potassium Level 3.5 L 3.6-5.0 MMOL/L Chloride Level 104 98-107 MMOL/L Carbon Dioxide Level 23 21-32 MMOL/L Anion Gap 13 5-14 MMOL/L Blood Urea Nitrogen 20 H 7-18 MG/DL Creatinine 1.05 0.60-1.30 MG/DL Estimat Glomerular Filtration Rate 59 BUN/Creatinine Ratio 19 Glucose Level 141 H 70-105 MG/DL Calcium Level 9.7 8.5-10.1 MG/DL Corrected Calcium 10.0 8.5-10.1 MG/DL Total Bilirubin 0.4 0.1-1.0 MG/DL Aspartate Amino Transf (AST/SGOT) 26 5-34 U/L Alanine Aminotransferase (ALT/SGPT) 19 0-55 U/L Alkaline Phosphatase 59 40-136 U/L C-Reactive Protein High Sensitivity 13.21 H 0.00-0.50 MG/DL Total Protein 7.2 6.4-8.2 GM/DL Albumin 3.6 3.2-4.5 GM/DL Influenza Type A (RT-PCR) Not Detected Not Detecte Influenza Type B (RT-PCR) Not Detected Not Detecte SARS-CoV-2 RNA (RT-PCR) Not Detected Not Detecte (ERASTO LERNER MD) My Orders Orders - ERASTO LERNER MD Cbc With Automated Diff (07/05/21 06:54) Comprehensive Metabolic Panel (07/05/21 06:54) Hs C Reactive Protein (07/05/21 06:54) Ed Iv/Invasive Line Start (07/05/21 06:54) Chest 1 View, Ap/Pa Only (07/05/21 06:54) Covid 19 Inhouse Test (07/05/21 06:54) Influenza A And B By Pcr (07/05/21 06:54) Hydrocodone/Apap 5/325 Tablet (Lortab 5 (07/05/21 08:15) (ERASTO LERNER MD) Medications Given in ED (ERASTO LERNER MD) Vital Signs/I&O 07/05/21 07/05/21 06:47 09:00 Temp 36.8 36.8 Pulse 91 88 Resp 18 18 B/P (MAP) 143/77 (99) 141/68 Pulse Ox 94 94 O2 Delivery Nasal Cannula Nasal Cannula O2 Flow Rate 3.00 3.00 3.00 (ERASTO LERNER MD) Blood Pressure Mean: 99 Progress Progress Note #1: Time: 09:08 Progress Note Patient was interviewed and examined by me along with Jessica Morris, MS 4. I had some concern about her increased cough and fever. She was tested for influenza and COVID-19, both of which were negative. Labs were obtained. She did have a modestly elevated CRP. There was also a possible infiltrate in the right lower lung on chest x-ray. She has a low pulmonary threshold as she is already oxygen dependent. We are treating this as a pneumonia with Levaquin. Levaquin was selected because it also has potential to treat GI and skin pathogens related to the fistula. She had some erythema surrounding the fistula with some punctate increased erythema that could represent candidiasis. Patient states she has a lot of trouble with candidiasis. She is being prescribed Diflucan along with her Levaquin. From a functional perspective, there is little I can do from the ER to help with her fistula drainage. This is a surgical problem with a surgical solution. Patient seems to understand this. She is awaiting further weight loss to have a surgical repair. We did discuss some methods of skin care and provided her with an ostomy bag. I recommended she be evaluated at the wound care clinic for monitoring and further treatment recommendations for her skin irritation around the fistula. See discharge instructions for further discussion. A dose of hydrocodone was given for treatment of the increase of burning around the fistula site at her request. Progress Note #2: Progress Note Patient later called the emergency room to state she had an abrupt sudden flow of bowel contents out of her fistula shortly after eating. The contents were the same as what she ate. She was in a panic about this when she called. I discussed the situation with Dr. Hutchison, surgeon on-call. He stated the process for correcting a fistula like this is a long and complicated and surgical repair require significant weight loss. He stated as long as the patient can stay hydrated, there is no benefit to any further acute inpatient treatment. I discussed this with the patient who expressed understanding. She was encouraged to follow-up with Dr. Mae as soon as possible. The ostomy bag it did not work well for her and did not contain the drainage. I encouraged her to try following up with wound care and explore other ways of containing the drainage and ensuring skin integrity. (ERASTO LERNER MD) Diagnostic Imaging Diagonstic Imaging: Xray Plain Films/CT/US/NM/MRI: chest Comments Chest x-ray viewed by me and report reviewed. See report below: NAME: ASHLEY BENTLEY [facility] REC#: [id number] PT STATUS: REG ER : 1955 PHYSICIAN: ERASTO LERNER MD ADMIT DATE: 07/05/21/ER Draft Date of Exam:07/05/21 CHEST 1 VIEW, AP/PA ONLY INDICATION: Cough and congestion. TECHNIQUE: Single view chest 7:31 AM. CORRELATION STUDY: 01/04/2019 FINDINGS: Heart size enlarged. Vasculature slightly increased but without overt failure. Generalized increased soft tissue attenuation is noted. There is suggestion of slight increased density in the right lung base medially. Likely prior cervical spine surgery. IMPRESSION: 1. Cardiac enlargement with slight increased vascularity. However, no evidence of overt failure. 2. Asymmetric density of the right lung base may reflect early infiltrate. Dictated on workstation # [id number] Dict: 07/05/21 0748 Trans: 07/05/21 0753 RAMAKRISHNA [id number] Interpreted by: SOLOMON PERSON DO (ERASTO LERNER MD) Departure Impression Primary Impression: Right lower lobe pneumonia Qualified Codes: J18.9 - Pneumonia, unspecified organism Additional Impressions: Enterocutaneous fistula Skin candidiasis Disposition: 01 HOME, SELF-CARE Condition: Improved Departure-Patient Inst. Decision time for Depature: 08:14 (ERASTO LERNER MD) Referrals: [facility] (PCP/Family) Primary Care Physician Patient Instructions: Community-Acquired Pneumonia in Adults Add. Discharge Instructions: Complete your antibiotic as prescribed. Take Diflucan now and repeat on Wednesday or Wednesday. You may try a few different means of reducing skin irritation at your fistula site. You may try ostomy bags or barrier ointments such as Vaseline or diaper rash creams. It may be beneficial to consult with wound care as well. You may contact them during business hours next week at [phone]. Follow-up with your surgeon and/or primary care provider next week. Call with questions or concerns. Return to the ER if you have worsening symptoms, especially if you develop vomiting, escalating abdominal pain, persistent fevers, expanding pain and swe lling around the fistula site, etc. despite following these instructions. All discharge instructions reviewed with patient and/or family. Voiced understanding. Scripts Hydrocodone/Acetaminophen (Hydrocodone-Acetamin 5-325 mg) 1 Each Tablet 1 TAB PO Q6H PRN for PAIN-BREAKTHROUGH, #5 TAB Prov: ERASTO LERNER MD 07/05/21 Levofloxacin (Levofloxacin) 750 Mg Tablet 750 MG PO DAILY, #5 TAB Prov: ERASTO LERNER MD 07/05/21 Fluconazole (Diflucan) 150 Mg Tablet 150 MG PO UD, #2 TAB Prov: ERASTO LERNER MD 07/05/21 Medical Student Attestation and Attending Note: I have personally interviewed and examined this patient along with Jessica Morris, MS 4. I have reviewed student documentation including history, physical, and assessments. I agree with the documentation except where otherwis e noted. Exam: General: Alert, oriented, no acute distress, well developed HEENT: Normocephalic and atraumatic Heart: Regular rate and rhythm without murmur Lungs: Audible wheezing, no crackles, normal effort Abdomen: Soft, minimal tenderness, nondistended, yellowish in bilious drainage coming from a fistula opening at the superior aspect of the umbilicus resembling bowel contents Neuropsych: Alert, oriented, no focal deficits Skin: Erythema surrounding a fistula at the umbilicus with some punctate spots o f erythema possibly resembling candidiasis (ERASTO LERNER MD) Copy Copies To 1: TOMAS MAE DO Copies To 2: DIANNA DAMIAN DO JESSICA MORRIS MED STUDENT Jul 05, 2021 07:05 ERASTO LERNER MD Jul 05, 2021 08:19
[2021-07-05 07:08] LABS: BASOPHILS % (AUTO) 0 % (0-10); EOSINOPHILS # (AUTO) 0.2 10^3/uL (0.0-0.3); EOSINOPHILS % (AUTO) 3 % (0-10); HEMATOCRIT 38 % (35-52); HEMOGLOBIN 11.9 g/dL (11.5-16.0); LYMPHOCYTES # (AUTO) 2.2 10^3/uL (1.0-4.0); LYMPHOCYTES % (AUTO) 25 % (12-44); MEAN CORPUSCULAR HEMOGLOBIN 27 pg (25-34); MEAN CORPUSCULAR HGB CONC 31 g/dL (32-36); MEAN CORPUSCULAR VOLUME 87 fL (80-99); MEAN PLATELET VOLUME 9.3 fL (9.0-12.2); MONOCYTES # (AUTO) 1.4 10^3/uL (0.0-1.0); MONOCYTES % (AUTO) 16 % (0-12); NEUTROPHILS # (AUTO) 4.7 10^3/uL (1.8-7.8); NEUTROPHILS % (AUTO) 55 % (42-75); PLATELET COUNT 246 10^3/uL (130-400); WHITE BLOOD COUNT 8.6 10^3/uL (4.3-11.0)
[2021-07-05 07:18] LABS: ALBUMIN 3.6 GM/DL (3.2-4.5); POTASSIUM 3.5 MMOL/L (3.6-5.0)
[2021-07-05 07:20] LABS: CALCIUM 9.7 MG/DL (8.5-10.1)
[2021-07-05 07:21] LABS: TOTAL PROTEIN 7.2 GM/DL (6.4-8.2)
[2021-07-05 07:23] LABS: BILIRUBIN,TOTAL 0.4 MG/DL (0.1-1.0)
[2021-07-05 07:25] LABS: CREATININE SERUM 1.05 MG/DL (0.60-1.30)
--- NOTE | 2021-07-05 07:53 | Diagnostic Imaging Report ---
INDICATION: Cough and congestion. TECHNIQUE: Single view chest 7:31 AM. CORRELATION STUDY: 01/04/2019 FINDINGS: Heart size enlarged. Vasculature slightly increased but without overt failure. Generalized increased soft tissue attenuation is noted. There is suggestion of slight increased density in the right lung base medially. Likely prior cervical spine surgery. IMPRESSION: 1. Cardiac enlargement with slight increased vascularity. However, no evidence of overt failure. 2. Asymmetric density of the right lung base may reflect early infiltrate. Dictated by: Dictated on workstation # [id number]
[2021-07-05] MEDS ORDERED: HYDROcodone/APAP 5 MG/325 MG (LORTAB) TAB PO ONE (08:15)
[2021-07-05] MEDS ORDERED: LEVO750T39 PO (08:20)
[2021-07-05] MEDS ORDERED: ACHD5005 PO (08:20)
[2021-07-05] MEDS ORDERED: FLUC150T PO (08:20)
[2021-07-05 09:00] VITALS: BP 141/68
== END 2021-07-05 09:00 | disposition home or self-care (01) ==
LOC: EDUNIT# 06:43 → ER 06:45
DX: J18.1 Lobar pneumonia, unspecified organism (principal); K63.2 Fistula of intestine; B37.2 Candidiasis of skin and nail; R79.82 Elevated C-reactive protein (CRP); E66.01 Morbid (severe) obesity due to excess calories; Z87.19 Personal history of other diseases of the digestive system; Z20.822 Contact with and (suspected) exposure to COVID-19
CPT/HCPCS: 36415; 71045; 80053; 85025; 86141; 87636

== ENCOUNTER 2021-07-28 14:14 | Emergency (ER) | payer MEDICARE, MEDICAID ==
[~2021-07-28] VITALS: Ht 63 cm; Wt 121.0 kg
[~2021-07-28 14:14] MED LIST changes: +ACHD5005 PO; +FLUC150T PO; +LEVO750T39 PO
--- NOTE | 2021-07-28 14:30 | ED General ---
General Stated Complaint: HIGH BLOOD SUGAR 761 Source of Information: Patient Exam Limitations: No Limitations History of Present Illness Date Seen by Provider: Jul 28, 2021 Time Seen by Provider: 14:27 Initial Comments to ER with reports of high blood sugar. She is a diabetic. She is receiving TPN for the past 3 weeks through a right sided [place]. 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 She had labs drawn today as she does every Wednesday and had an incidental finding of a blood sugar of 768. She had a little dizziness and a headache but otherwise feels okay no fevers chills or recent illness. Timing/Duration: 1-2 Days Severity: Moderate Associated Systoms: Headaches Allergies and Home Medications Allergies Coded Allergies: No Known Drug Allergies (Unverified , 11/16/18) Patient Home Medication List Home Medication List Reviewed: Yes Amlodipine Besylate (Amlodipine Besylate) 5 Mg Tablet, 5 MG PO DAILY, (Reported) Entered as Reported by: ROSA WALKER on 03/12/21 1205 Ascorbic Acid (Vitamin C) 500 Mg Tablet, 500 MG PO DAILY, (Reported) Entered as Reported by: ROSA WALKER on 03/12/21 1205 Aspirin (Aspirin EC) 81 Mg Tablet.dr, 81 MG PO DAILY, (Reported) Entered as Reported by: ROSA WALKER on 03/12/21 1205 Atorvastatin Calcium (Atorvastatin Calcium) 40 Mg Tablet, 40 MG PO DAILY, (Reported) Entered as Reported by: KING LOPEZ on 11/16/18 1602 Bupropion HCl (Bupropion HCl Sr) 150 Mg Tablet.er, 150 MG PO DAILY, (Reported) Entered as Reported by: ROSA WALKER on 03/12/21 1205 Cholecalciferol (Vitamin D3) (Vitamin D3) 125 Mcg Tablet, 125 MCG PO DAILY, (Reported) Entered as Reported by: TRACY HESS on 09/01/19 1108 Cyanocobalamin (Vitamin B-12) (Vitamin B-12) 1,000 Mcg Capsule, 1,000 MCG PO DAILY, (Reported) Entered as Reported by: ROSA WALKER on 03/12/21 1205 Dapagliflozin Propanediol (Farxiga) 10 Mg Tablet, 10 MG PO DAILY, (Reported) Entered as Reported by: ROSA WALKER on 03/12/21 1205 Famotidine (Famotidine) 20 Mg Tablet, 20 MG PO HS, (Reported) Entered as Reported by: ROSA WALKER on 03/12/21 1205 Fish Oil/Dha/Epa (Fish Oil 1,200 mg Fish Oil) 1 Each Capsule, 1 EACH PO DAILY, (Reported) Entered as Reported by: ROSA WALKER on 03/12/21 120 Fluconazole (Diflucan) 150 Mg Tablet, 150 MG PO UD Prescribed by: ERASTO SORENSEN on 07/05/21 0820 Fluoxetine HCl (Fluoxetine HCl) 40 Mg Capsule, 40 MG PO DAILY, (Reported) Entered as Reported by: ROSA WALKER on 03/12/21 120 Gabapentin (Gabapentin) 600 Mg Tablet, 600 MG PO BID, (Reported) Entered as Reported by: KITTY DAVIDSON on 08/19/20 1202 Gabapentin (Gabapentin) 600 Mg Tablet, 600 MG PO 1200 PRN for PAIN-BREAKTHROUGH, (Reported) Entered as Reported by: ROSA WALKER on 03/12/21 120 Hydrocodone/Acetaminophen (Hydrocodone-Acetamin 5-325 mg) 1 Each Tablet, 1 TAB PO Q6H PRN for PAIN-BREAKTHROUGH Prescribed by: ERASTO SORENSEN on 07/05/21 0821 Insulin Detemir (Levemir Flextouch) 100 Unit/1 Ml Insuln.pen, 20 UNIT SQ BID PRN for HYPERGLYCEMIA, (Reported) Entered as Reported by: ROSA WALKER on 03/12/21 1232 Levofloxacin (Levofloxacin) 750 Mg Tablet, 750 MG PO DAILY Prescribed by: ERASTO SORENSEN on 07/05/21 0820 Lisinopril (Lisinopril) 20 Mg Tablet, 20 MG PO HS, (Reported) Entered as Reported by: TRACY HESS on 01/09/15 1414 Magnesium Oxide (Magnesium Oxide) 400 Mg Tablet, 400 MG PO DAILY, (Reported) Entered as Reported by: GAEL JENSEN on 01/28/15 1629 Metoprolol Succinate (Metoprolol Succinate) 25 Mg Tab.er.24h, 25 MG PO DAILY, (Reported) Entered as Reported by: ROSA WALKER on 03/12/21 1205 Oxybutynin Chloride (Oxybutynin Chloride ER) 10 Mg Tab.er.24, 10 MG PO DAILY, (Reported) Entered as Reported by: ROSA WALKER on 03/12/21 1205 Oxycodone Hcl (Oxyir Tablet) 5 Mg Tab, 5 MG PO Q4H PRN for PAIN-SEVERE (8-10) Prescribed by: ALEIDA LICEA on 03/16/21 1208 Semaglutide (Ozempic) 1 Mg/0.75 Ml Pen.injctr, 1 MG SQ FRI, (Reported) Entered as Reported by: KITTY DAVIDSON on 08/19/20 1202 Zinc (Zinc) 50 Mg Tablet, 50 MG PO DAILY, (Reported) Entered as Reported by: ROSA WALKER on 03/12/21 1205 Review of Systems Review of Systems Constitutional: see HPI, dizziness EENTM: see HPI Respiratory: no symptoms reported Cardiovascular: no symptoms reported Genitourinary: no symptoms reported Musculoskeletal: no symptoms reported Skin: no symptoms reported Psychiatric/Neurological: See HPI, Headache Hematologic/Lymphatic: No Symptoms Reported Immunological/Allergic: no symptoms reported Past Gavhtob-Bjcyox-Abtvia Hx Immunizations Up To Date Tetanus Booster (TDap): More than 5yrs First/Initial COVID19 Vaccinat: JANUARY 2021 Second COVID19 Vaccination Darwin: FEBRUARY 2021 Seasonal Allergies Seasonal Allergies: No Past Medical History Surgery/Hospitalization HX: ENTEROCUTANEUS FISTULA, LAPROSCOPIC HERNIA REPAIR, C-SECT, HYSTERECTOMY, T/A COPD, HTN, HYPERLIPIDEMIA, IDDM, FIBROMYALGIA, DJD, CHF, BRAYAN, CKD, CAD Surgeries: Yes Abdominal Respiratory: Yes (BI-PAP, OXYGEN) COPD Currently Using CPAP: No Currently Using BIPAP: Yes Cardiac: Yes High Cholesterol, Hypertension Neurological: Yes (chronic numbness rt proximal lateral thigh.) Neuropathy 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 Disorders: Yes (BENIGN OVARIAN TUMOR) Female 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, 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 Ligation, Menopausal Sexually Transmitted Disease: No HIV/AIDS: No Genitourinary: Yes (STAGE 3 KIDNEY FAILURE) Kidney Stones, Renal Failure Gastrointestinal: Yes (Abdominal wall fistula) Abdominal Hernia, Chronic Constipation, Diverticulosis, C-Diff Musculoskeletal: Yes Degenerate Disk Disease, Arthritis, Fibromyalgia, Chronic Back Pain Endocrine: Yes (MORBID OBESITY) Diabetes, Non-Insulin dep HEENT: Yes (GLASSES, DENTURES) Cataract Loss of Vision: Denies Hearing Impairment: Denies Cancer: No Psychosocial: Yes Depression Integumentary: No Blood Disorders: No Adverse Reaction/Blood Tranf: No (N/A) Family Medical History Arthritis 19 FATHER Cardiovascular disease 19 FATHER Completed stroke 19 MOTHER Diabetes mellitus 19 FATHER Hypertension 19 FATHER G8 SISTER Myocardial infarction 19 FATHER Respiratory disorder 19 MOTHER Heart Disease, Diabetes, Hypertension, Lung Disease, Stroke Physical Exam Vital Signs Vital Signs - First Documented 07/28/21 14:45 Temp 35.9 Pulse 79 Resp 20 Pulse Ox 93 O2 Delivery Room Air Capillary Refill : Height, Weight, BMI Height: 5'3.00" Weight: 273lbs. 2.0oz. 123.641981wh; 48.00 BMI Method:Stated General Appearance: No Apparent Distress, WD/WN Eyes: Bilateral Eye Normal Inspection, Bilateral Eye PERRL, Bilateral Eye EOMI HEENT: PERRL/EOMI, TMs Normal Neck: Full Range of Motion, Normal Inspection Respiratory: No Accessory Muscle Use, No Respiratory Distress Cardiovascular: Regular Rate, Rhythm, Normal Peripheral Pulses Gastrointestinal: Normal Bowel Sounds, Non Tender, Soft Extremity: Normal Capillary Refill, Normal Inspection Neurologic/Psychiatric: Alert, Oriented x3 Skin: Normal Color, Warm/Dry Procedures/Interventions Date of ETT Placement: Nov 20, 2018 Time of ETT Placement: 1505 Progress/Results/Core Measures Suspected Sepsis SIRS Temperature: Pulse: Respiratory Rate: Laboratory Tests 07/28/21 14:37: White Blood Count 9.8 Blood Pressure / Mean: Laboratory Tests 07/28/21 14:37: Creatinine 0.85, Platelet Count 249, Total Bilirubin 0.3 Results/Orders Lab Results Laboratory Tests Test 07/28/21 14:37 07/28/21 14:56 Range/Units White Blood Count 9.8 4.3-11.0 10^3/uL Red Blood Count 4.24 3.80-5.11 10^6/uL Hemoglobin 11.6 11.5-16.0 g/dL Hematocrit 37 35-52 % Mean Corpuscular Volume 87 80-99 fL Mean Corpuscular Hemoglobin 27 25-34 pg Mean Corpuscular Hemoglobin Concent 31 L 32-36 g/dL Red Cell Distribution Width 15.5 H 10.0-14.5 % Platelet Count 249 130-400 10^3/uL Mean Platelet Volume 9.8 9.0-12.2 fL Immature Granulocyte % (Auto) 0 % Neutrophils (%) (Auto) 59 42-75 % Lymphocytes (%) (Auto) 27 12-44 % Monocytes (%) (Auto) 9 0-12 % Eosinophils (%) (Auto) 3 0-10 % Basophils (%) (Auto) 1 0-10 % Neutrophils # (Auto) 5.8 1.8-7.8 10^3/uL Lymphocytes # (Auto) 2.7 1.0-4.0 10^3/uL Monocytes # (Auto) 0.9 0.0-1.0 10^3/uL Eosinophils # (Auto) 0.3 0.0-0.3 10^3/uL Basophils # (Auto) 0.1 0.0-0.1 10^3/uL Immature Granulocyte # (Auto) 0.0 0.0-0.1 10^3/uL Sodium Level 141 135-145 MMOL/L Potassium Level 4.0 3.6-5.0 MMOL/L Chloride Level 104 98-107 MMOL/L Carbon Dioxide Level 25 21-32 MMOL/L Anion Gap 12 5-14 MMOL/L Blood Urea Nitrogen 21 H 7-18 MG/DL Creatinine 0.85 0.60-1.30 MG/DL Estimat Glomerular Filtration Rate 76 BUN/Creatinine Ratio 25 Glucose Level 105 70-105 MG/DL Calcium Level 9.4 8.5-10.1 MG/DL Corrected Calcium 9.6 8.5-10.1 MG/DL Total Bilirubin 0.3 0.1-1.0 MG/DL Aspartate Amino Transf (AST/SGOT) 12 5-34 U/L Alanine Aminotransferase (ALT/SGPT) 15 0-55 U/L Alkaline Phosphatase 68 40-136 U/L Total Protein 7.2 6.4-8.2 GM/DL Albumin 3.8 3.2-4.5 GM/DL Beta-Hydroxybutyrate (Chem panel) 0.09 0.00-0.27 MMOL/L Urine Color YELLOW Urine Clarity CLEAR Urine pH 6.5 5-9 Urine Specific [place] 1.015 L 1.016-1.022 Urine Protein NEGATIVE NEGATIVE Urine Glucose (UA) 3+ H NEGATIVE Urine Ketones NEGATIVE NEGATIVE Urine Nitrite NEGATIVE NEGATIVE Urine Bilirubin NEGATIVE NEGATIVE Urine Urobilinogen 0.2 < = 1.0 MG/DL Urine Leukocyte Esterase NEGATIVE NEGATIVE Urine RBC (Auto) NEGATIVE NEGATIVE Urine RBC NONE /HPF Urine WBC 0-2 /HPF Urine Squamous Epithelial Cells RARE /HPF Urine Crystals NONE /LPF Urine Bacteria NEGATIVE /HPF Urine Casts NONE /LPF Urine Mucus NEGATIVE /LPF Urine Culture Indicated NO My Orders Orders - JASON PALMER APRN Beta Hydroxybutyrate (07/28/21 14:23) Cbc With Automated Diff (07/28/21 14:23) Comprehensive Metabolic Panel (07/28/21 14:23) Ed Iv/Invasive Line Start (07/28/21 14:23) Ua Culture If Indicated (07/28/21 14:23) Lactated Ringers (Lr 1000 Ml Iv Solution (07/28/21 14:30) Vital Signs/I&O 07/28/21 14:45 Temp 35.9 Pulse 79 Resp 20 B/P (MAP) Pulse Ox 93 O2 Delivery Room Air Capillary Refill : Departure Impression Primary Impression: Encounter for laboratory examination Disposition: HOME, SELF-CARE Condition: Stable Departure-Patient Inst. Decision time for Depature: 15:13 Referrals: [facility] (PCP/Family) Primary Care Physician Patient Instructions: NO INSTRUCTIONS GIVEN Copy Copies To 1: DARIO MUNOZ MD, PETER J APRN Jul 28, 2021 14:30
[2021-07-28 14:44] LABS: BASOPHILS # (AUTO) 0.1 10^3/uL (0.0-0.1); BASOPHILS % (AUTO) 1 % (0-10); EOSINOPHILS # (AUTO) 0.3 10^3/uL (0.0-0.3); EOSINOPHILS % (AUTO) 3 % (0-10); HEMATOCRIT 37 % (35-52); HEMOGLOBIN 11.6 g/dL (11.5-16.0); LYMPHOCYTES # (AUTO) 2.7 10^3/uL (1.0-4.0); LYMPHOCYTES % (AUTO) 27 % (12-44); MEAN CORPUSCULAR HEMOGLOBIN 27 pg (25-34); MEAN CORPUSCULAR HGB CONC 31 g/dL (32-36); MEAN CORPUSCULAR VOLUME 87 fL (80-99); MEAN PLATELET VOLUME 9.8 fL (9.0-12.2); MONOCYTES # (AUTO) 0.9 10^3/uL (0.0-1.0); MONOCYTES % (AUTO) 9 % (0-12); NEUTROPHILS # (AUTO) 5.8 10^3/uL (1.8-7.8); NEUTROPHILS % (AUTO) 59 % (42-75); PLATELET COUNT 249 10^3/uL (130-400); WHITE BLOOD COUNT 9.8 10^3/uL (4.3-11.0)
[2021-07-28] MEDS: LACTATED RINGERS 1,000 ML IV SCH (14:54)
[2021-07-28 15:02] LABS: ALBUMIN 3.8 GM/DL (3.2-4.5)
[2021-07-28 15:03] LABS: CALCIUM 9.4 MG/DL (8.5-10.1)
[2021-07-28 15:05] LABS: TOTAL PROTEIN 7.2 GM/DL (6.4-8.2)
[2021-07-28 15:06] LABS: BILIRUBIN,TOTAL 0.3 MG/DL (0.1-1.0)
[2021-07-28 15:08] LABS: CREATININE SERUM 0.85 MG/DL (0.60-1.30)
[2021-07-28 15:09] LABS: BILIRUBIN,URINE NEGATIVE (NEGATIVE); CLARITY,URINE CLEAR; COLOR,URINE YELLOW; GLUCOSE, URINE (UA) 3+ (NEGATIVE); KETONES,URINE NEGATIVE (NEGATIVE); LEUKOCYTE ESTERASE ,URINE NEGATIVE (NEGATIVE); NITRITE,URINE NEGATIVE (NEGATIVE); PH,URINE 6.5 (5-9); PROTEIN,URINE NEGATIVE (NEGATIVE)
[2021-07-28 15:21] LABS: BACTERIA,URINE NEGATIVE /HPF; SQUAMOUS EPITHELIAL CELL,UR RARE /HPF; WBC,URINE 0-2 /HPF
== END 2021-07-28 15:34 | disposition home or self-care (01) ==
LOC: EDUNIT# 14:14 → ER 14:15
DX: Z01.812 Encounter for preprocedural laboratory examination (principal); E11.9 Type 2 diabetes mellitus without complications; E66.01 Morbid (severe) obesity due to excess calories; Z68.42 Body mass index [BMI] 45.0-49.9, adult
CPT/HCPCS: 36415; 80053; 81000; 82010; 85025; 99282

== ENCOUNTER 2021-08-04 10:33 | Outpatient (RCR) | payer MEDICARE, MEDICAID ==
[2021-07-21 10:45] VITALS: BP 123/77
[2021-07-21 11:12] LABS: BASOPHILS # (AUTO) 0.1 10^3/uL (0.0-0.1); BASOPHILS % (AUTO) 1 % (0-10); EOSINOPHILS # (AUTO) 0.2 10^3/uL (0.0-0.3); EOSINOPHILS % (AUTO) 3 % (0-10); HEMATOCRIT 37 % (35-52); HEMOGLOBIN 11.5 g/dL (11.5-16.0); LYMPHOCYTES # (AUTO) 2.1 10^3/uL (1.0-4.0); LYMPHOCYTES % (AUTO) 27 % (12-44); MEAN CORPUSCULAR HEMOGLOBIN 27 pg (25-34); MEAN CORPUSCULAR HGB CONC 31 g/dL (32-36); MEAN CORPUSCULAR VOLUME 88 fL (80-99); MONOCYTES # (AUTO) 0.5 10^3/uL (0.0-1.0); MONOCYTES % (AUTO) 7 % (0-12); NEUTROPHILS % (AUTO) 63 % (42-75); PLATELET COUNT 255 10^3/uL (130-400); WHITE BLOOD COUNT 7.9 10^3/uL (4.3-11.0)
[2021-07-21 11:32] LABS: ALBUMIN 3.8 GM/DL (3.2-4.5); BILIRUBIN,TOTAL 0.4 MG/DL (0.1-1.0); CALCIUM 8.8 MG/DL (8.5-10.1); CREATININE SERUM 0.91 MG/DL (0.60-1.30); PHOSPHORUS 3.2 MG/DL (2.3-4.7)
[2021-07-28 10:50] VITALS: BP 147/82
[2021-07-28 10:59] LABS: BASOPHILS % (AUTO) 1 % (0-10); EOSINOPHILS # (AUTO) 0.3 10^3/uL (0.0-0.3); EOSINOPHILS % (AUTO) 4 % (0-10); HEMATOCRIT 35 % (35-52); HEMOGLOBIN 11.3 g/dL (11.5-16.0); LYMPHOCYTES # (AUTO) 2.3 10^3/uL (1.0-4.0); LYMPHOCYTES % (AUTO) 30 % (12-44); MEAN CORPUSCULAR HEMOGLOBIN 28 pg (25-34); MEAN CORPUSCULAR HGB CONC 32 g/dL (32-36); MEAN CORPUSCULAR VOLUME 89 fL (80-99); MONOCYTES # (AUTO) 0.7 10^3/uL (0.0-1.0); MONOCYTES % (AUTO) 9 % (0-12); NEUTROPHILS # (AUTO) 4.4 10^3/uL (1.8-7.8); NEUTROPHILS % (AUTO) 57 % (42-75); PLATELET COUNT 240 10^3/uL (130-400); WHITE BLOOD COUNT 7.7 10^3/uL (4.3-11.0)
[2021-07-28 11:19] LABS: ALBUMIN 3.4 GM/DL (3.2-4.5); BILIRUBIN,TOTAL 0.3 MG/DL (0.1-1.0); CALCIUM 8.1 MG/DL (8.5-10.1); CREATININE SERUM 1.14 MG/DL (0.60-1.30); MAGNESIUM 2.6 MG/DL (1.6-2.4); PHOSPHORUS 5.5 MG/DL (2.3-4.7); POTASSIUM 5.4 MMOL/L (3.6-5.0); TOTAL PROTEIN 7.3 GM/DL (6.4-8.2)
[~2021-08-04] VITALS: Ht 160 cm; Wt 119.0 kg
[~2021-08-04 10:33] MED LIST changes: +BUPR-105 PO; -BUPR150T14 PO; +CHOL4PAC14 PO; -CHOL4PAC2 PO
[2021-08-04 10:57] VITALS: BP 128/76
[2021-08-04 11:03] LABS: BASOPHILS % (AUTO) 0 % (0-10); EOSINOPHILS # (AUTO) 0.2 10^3/uL (0.0-0.3); EOSINOPHILS % (AUTO) 2 % (0-10); HEMATOCRIT 37 % (35-52); HEMOGLOBIN 11.4 g/dL (11.5-16.0); LYMPHOCYTES # (AUTO) 0.9 10^3/uL (1.0-4.0); LYMPHOCYTES % (AUTO) 12 % (12-44); MEAN CORPUSCULAR HEMOGLOBIN 27 pg (25-34); MEAN CORPUSCULAR HGB CONC 31 g/dL (32-36); MEAN CORPUSCULAR VOLUME 87 fL (80-99); MEAN PLATELET VOLUME 9.5 fL (9.0-12.2); MONOCYTES # (AUTO) 0.7 10^3/uL (0.0-1.0); MONOCYTES % (AUTO) 10 % (0-12); NEUTROPHILS # (AUTO) 5.7 10^3/uL (1.8-7.8); NEUTROPHILS % (AUTO) 75 % (42-75); PLATELET COUNT 203 10^3/uL (130-400); WHITE BLOOD COUNT 7.7 10^3/uL (4.3-11.0)
[2021-08-04 11:23] LABS: ALBUMIN 3.7 GM/DL (3.2-4.5); BILIRUBIN,TOTAL 0.6 MG/DL (0.1-1.0); CALCIUM 8.9 MG/DL (8.5-10.1); PHOSPHORUS 3.8 MG/DL (2.3-4.7); POTASSIUM 3.9 MMOL/L (3.6-5.0); TOTAL PROTEIN 6.9 GM/DL (6.4-8.2)
== END 2021-08-09 | disposition home or self-care (01) ==
LOC: SDC 10:33
PROVIDERS: ATTEND Internal Medicine
DX: Z51.81 Encounter for therapeutic drug level monitoring (principal); Z79.899 Other long term (current) drug therapy
CPT/HCPCS: 80053; 83735; 84100; 84134; 84478; 85025; G0463; 36415; 99211

== ENCOUNTER 2021-08-28 12:20 | Emergency (ER) | payer MEDICARE, MEDICAID ==
[~2021-08-28] VITALS: Ht 160 cm; Wt 120.0 kg
--- NOTE | 2021-08-28 12:59 | ED Integumentary General ---
General Chief Complaint: Skin/Wound Problems Stated Complaint: SORE ON STOMACH Nursing Triage Note: pt reports she had a hernia repaired 3 years ago. she has had a chronic abd wound. she reports increased drainage et redness x 1 week. she was admitted at about 1 month ago for similar complaints. she is currently receiving tpn overnight, she is npo all the time. Source: patient Exam Limitations: no limitations (HAMZAH HE) History of Present Illness Date Seen by Provider: August 28, 2021 Time Seen by Provider: 12:57 Initial Comments Patient is a 65-year-old female with a history of COPD, diabetes who presents ED with drainage and redness around her umbilicus. Patient states she had complications from a hernia repair 3 years ago. Patient has a known fistula. Was recently admitted to about a month ago for similar symptoms. She states she noted some purulent drainage, greenish drainage today. Low-grade tem perature. She states she was admitted for similar symptoms had a infection. Has a known fistula. She they attempted colostomy bags but states they did not stick. Not currently on antibiotics. She has been eating and drinking. Denies any urinary symptoms, chest pain, shortness of breat, cough (HAMZAH HE) Allergies and Home Medications Allergies Coded Allergies: No Known Drug Allergies (Unverified , 11/16/18) Patient Home Medication List Home Medication List Reviewed: Yes (HAMZAH HE) Amlodipine Besylate (Amlodipine Besylate) 5 Mg Tablet, 5 MG PO DAILY, (Reported) Entered as Reported by: ROSA WALKER on 03/12/21 1205 Ascorbic Acid (Vitamin C) 500 Mg Tablet, 500 MG PO DAILY, (Reported) Entered as Reported by: ROSA WALKER on 03/12/21 1205 Aspirin (Aspirin EC) 81 Mg Tablet.dr, 81 MG PO DAILY, (Reported) Entered as Reported by: ROSA WALKER on 03/12/21 1205 Atorvastatin Calcium (Atorvastatin Calcium) 40 Mg Tablet, 40 MG PO DAILY, (Reported) Entered as Reported by: KING LOPEZ on 11/16/18 1602 Bupropion HCl (Bupropion HCl Sr) 150 Mg Tablet.er, 150 MG PO DAILY, (Reported) Entered as Reported by: ROSA WALKER on 03/12/21 1205 Cephalexin (Cephalexin) 500 Mg Tablet, 500 MG PO TID Prescribed by: ASHLEIGH NAJERA on 08/28/21 1628 Cholecalciferol (Vitamin D3) (Vitamin D3) 125 Mcg Tablet, 125 MCG PO DAILY, (Reported) Entered as Reported by: TRACY HESS on 09/01/19 1108 Cyanocobalamin (Vitamin B-12) (Vitamin B-12) 1,000 Mcg Capsule, 1,000 MCG PO DAILY, (Reported) Entered as Reported by: ROSA WALKER on 03/12/21 1205 Dapagliflozin Propanediol (Farxiga) 10 Mg Tablet, 10 MG PO DAILY, (Reported) Entered as Reported by: ROSA WALKER on 03/12/21 1205 Famotidine (Famotidine) 20 Mg Tablet, 20 MG PO HS, (Reported) Entered as Reported by: ROSA WALKER on 03/12/21 1205 Fish Oil/Dha/Epa (Fish Oil 1,200 mg Fish Oil) 1 Each Capsule, 1 EACH PO DAILY, (Reported) Entered as Reported by: ROSA WALKER on 03/12/21 1205 Fluconazole (Diflucan) 150 Mg Tablet, 150 MG PO UD Prescribed by: ERASTO SORENSEN on 07/05/21 0820 Fluoxetine HCl (Fluoxetine HCl) 40 Mg Capsule, 40 MG PO DAILY, (Reported) Entered as Reported by: ROSA WALKER on 03/12/21 1205 Gabapentin (Gabapentin) 600 Mg Tablet, 600 MG PO BID, (Reported) Entered as Reported by: KITTY DAVIDSON on 08/19/20 1202 Gabapentin (Gabapentin) 600 Mg Tablet, 600 MG PO 1200 PRN for PAIN-BREAKTHROUGH, (Reported) Entered as Reported by: ROSA WALKER on 03/12/21 1205 Hydrocodone/Acetaminophen (Hydrocodone-Acetamin 5-325 mg) 1 Each Tablet, 1 TAB PO Q6H PRN for PAIN-BREAKTHROUGH Prescribed by: ERASTO SORENSEN on 07/05/21 0821 Insulin Detemir (Levemir Flextouch) 100 Unit/1 Ml Insuln.pen, 20 UNIT SQ BID PRN for HYPERGLYCEMIA, (Reported) Entered as Reported by: ROSA WALKER on 03/12/21 1232 Levofloxacin (Levofloxacin) 750 Mg Tablet, 750 MG PO DAILY Prescribed by: ERASTO SORENSEN on 07/05/21 0820 Lisinopril (Lisinopril) 20 Mg Tablet, 20 MG PO HS, (Reported) Entered as Reported by: TRACY HESS on 01/09/15 1414 Magnesium Oxide (Magnesium Oxide) 400 Mg Tablet, 400 MG PO DAILY, (Reported) Entered as Reported by: GAEL JENSEN on 01/28/15 1629 Metoprolol Succinate (Metoprolol Succinate) 25 Mg Tab.er.24h, 25 MG PO DAILY, (Reported) Entered as Reported by: ROSA WALKER on 03/12/21 1205 Oxybutynin Chloride (Oxybutynin Chloride ER) 10 Mg Tab.er.24, 10 MG PO DAILY, (Reported) Entered as Reported by: ROSA WALKER on 03/12/21 1205 Oxycodone Hcl (Oxyir Tablet) 5 Mg Tab, 5 MG PO Q4H PRN for PAIN-SEVERE (8-10) Prescribed by: ALEIDA LICEA on 03/16/21 1208 Semaglutide (Ozempic) 1 Mg/0.75 Ml Pen.injctr, 1 MG SQ FRI, (Reported) Entered as Reported by: KITTY DAVIDSON on 08/19/20 1202 Zinc (Zinc) 50 Mg Tablet, 50 MG PO DAILY, (Reported) Entered as Reported by: ROSA WALKER on 03/12/21 1205 Review of Systems Review of Systems Constitutional: No chills, No diaphoresis; fever EENTM: No ear pain, No blurred vision, No vision loss, No throat pain, No throat swelling Respiratory: No cough Cardiovascular: No chest pain, No edema Gastrointestinal: abdominal pain; No diarrhea, No nausea, No vomiting Genitourinary: No decreased output, No discharge Musculoskeletal: No back pain, No joint pain Skin: No change in color, No change in hair/nails, No lumps; rash (HAMZAH HE) All Other Systems Reviewed Negative Unless Noted: Yes (HAMZAH HE) Past Hgwssvq-Wvtorq-Eecrsc Hx Immunizations Up To Date Tetanus Booster (TDap): More than 5yrs First/Initial COVID19 Vaccinat: JANUARY 2021 Second COVID19 Vaccination Darwin: FEBRUARY 2021 (HAMZAH HE) Seasonal Allergies Seasonal Allergies: No (HAMZAH HE) Past Medical History Surgery/Hospitalization HX: has fistula and is on TPN to right chest port that was placed by [facility], stated when she got Wednesday labs her BS was reported to be 761 and was told to get to the ER by her doctor, takes PO med for her DM, did eat cheese sticks at home before lab was done Surgeries: Yes Abdominal Respiratory: Yes (BI-PAP, OXYGEN) COPD Currently Using CPAP: No Currently Using BIPAP: Yes Cardiac: Yes High Cholesterol, Hypertension Neurological: Yes (chronic numbness rt proximal lateral thigh.) Neuropathy 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 Disorders: Yes (BENIGN OVARIAN TUMOR) Female 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, 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, Menopausal Sexually Transmitted Disease: No HIV/AIDS: No Genitourinary: Yes (STAGE 3 KIDNEY FAILURE) Kidney Stones, Renal Failure Gastrointestinal: Yes (Abdominal wall fistula) Abdominal Hernia, Chronic Constipation, Diverticulosis, C-Diff Musculoskeletal: Yes Degenerate Disk Disease, Arthritis, Fibromyalgia, Chronic Back Pain Endocrine: Yes (MORBID OBESITY) Diabetes, Non-Insulin dep HEENT: Yes (GLASSES, DENTURES) Cataract Loss of Vision: Denies Hearing Impairment: Denies Cancer: No Psychosocial: Yes Depression Integumentary: No Blood Disorders: No Adverse Reaction/Blood Tranf: No (N/A) (HAMZAH HE) Family Medical History Arthritis 19 FATHER Cardiovascular disease 19 FATHER Completed stroke 19 MOTHER Diabetes mellitus 19 FATHER Hypertension 19 FATHER G8 SISTER Myocardial infarction 19 FATHER Respiratory disorder 19 MOTHER Heart Disease, Diabetes, Hypertension, Lung Disease, Stroke (HAMZAH HE) Physical Exam Vital Signs Vital Signs - First Documented 08/28/21 12:31 Temp 37.1 Pulse 87 Resp 16 B/P (MAP) 132/80 (97) Pulse Ox 94 O2 Delivery Nasal Cannula O2 Flow Rate 2.00 (ERASTO LERNER MD) Vital Signs Capillary Refill : Less Than 3 Seconds (HAMZAH HE) General Appearance: WD/WN, no apparent distress HEENT: PERRL/EOMI, normal ENT inspection, TMs normal, pharynx normal Neck: non-tender, full range of motion, supple Cardiovascular: regular rate, rhythm, no edema, no gallop, no JVD Respiratory: chest non-tender, lungs clear, normal breath sounds Gastrointestinal: normal bowel sounds, non tender, soft, no organomegaly Back: normal inspection Extremities: normal range of motion, non-tender, normal inspection, no pedal edema 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 No purulent drainage. No palpable abscess.) (HAMZAH HE) Procedures/Interventions Date of ETT Placement: Nov 20, 2018 Time of ETT Placement: 1505 (HAMZAH HE) Progress/Results/Core Measures Results/Orders Lab Results Laboratory Tests Test 08/28/21 12:58 08/28/21 15:40 Range/Units White Blood Count 8.8 4.3-11.0 10^3/uL Red Blood Count 4.44 3.80-5.11 10^6/uL Hemoglobin 11.9 11.5-16.0 g/dL Hematocrit 37 35-52 % Mean Corpuscular Volume 84 80-99 fL Mean Corpuscular Hemoglobin 27 25-34 pg Mean Corpuscular Hemoglobin Concent 32 32-36 g/dL Red Cell Distribution Width 15.7 H 10.0-14.5 % Platelet Count 219 130-400 10^3/uL Mean Platelet Volume 9.5 9.0-12.2 fL Immature Granulocyte % (Auto) 0 % Neutrophils (%) (Auto) 63 42-75 % Lymphocytes (%) (Auto) 24 12-44 % Monocytes (%) (Auto) 11 0-12 % Eosinophils (%) (Auto) 2 0-10 % Basophils (%) (Auto) 1 0-10 % Neutrophils # (Auto) 5.5 1.8-7.8 10^3/uL Lymphocytes # (Auto) 2.1 1.0-4.0 10^3/uL Monocytes # (Auto) 1.0 0.0-1.0 10^3/uL Eosinophils # (Auto) 0.1 0.0-0.3 10^3/uL Basophils # (Auto) 0.1 0.0-0.1 10^3/uL Immature Granulocyte # (Auto) 0.0 0.0-0.1 10^3/uL Sodium Level 139 135-145 MMOL/L Potassium Level 3.4 L 3.6-5.0 MMOL/L Chloride Level 103 98-107 MMOL/L Carbon Dioxide Level 25 21-32 MMOL/L Anion Gap 11 5-14 MMOL/L Blood Urea Nitrogen 18 7-18 MG/DL Creatinine 0.99 0.60-1.30 MG/DL Estimat Glomerular Filtration Rate 63 BUN/Creatinine Ratio 18 Glucose Level 130 H 70-105 MG/DL Lactic Acid Level 1.47 0.50-2.00 MMOL/L Calcium Level 9.6 8.5-10.1 MG/DL Corrected Calcium 9.8 8.5-10.1 MG/DL Total Bilirubin 0.5 0.1-1.0 MG/DL Aspartate Amino Transf (AST/SGOT) 14 5-34 U/L Alanine Aminotransferase (ALT/SGPT) 12 0-55 U/L Alkaline Phosphatase 75 40-136 U/L Total Protein 7.7 6.4-8.2 GM/DL Albumin 3.8 3.2-4.5 GM/DL Lipase 51 8-78 U/L Urine Color ORANGE Urine Clarity CLOUDY Urine pH 6.0 5-9 Urine Specific [place] <=1.005 1.016-1.022 Urine Protein 1+ H NEGATIVE Urine Glucose (UA) TRACE H NEGATIVE Urine Ketones NEGATIVE NEGATIVE Urine Nitrite NEGATIVE NEGATIVE Urine Bilirubin NEGATIVE NEGATIVE Urine Urobilinogen 0.2 < = 1.0 MG/DL Urine Leukocyte Esterase 3+ H NEGATIVE Urine RBC (Auto) 1+ H NEGATIVE Urine RBC NONE /HPF Urine WBC >100 H /HPF Urine Squamous Epithelial Cells 2-5 /HPF Urine Renal Epithelial Cells NONE /HPF Urine Crystals NONE /LPF Urine Bacteria FEW H /HPF Urine Casts NONE /LPF Urine Mucus NEGATIVE /LPF Urine Culture Indicated YES (ERASTO LERNER MD) Medications Given in ED Current Medications Medications Dose Ordered Sig/Gracie Route Start Time Stop Time Status Last Admin Dose Admin Iohexol 100 ml ONCE ONCE IV 08/28/21 13:15 08/28/21 13:16 DC 08/28/21 14:08 100 ML Piperacillin Sod/ Tazobactam Sod 4.5 gm/Sodium Chloride 100 ml @ 200 mls/hr ONCE ONCE IV 08/28/21 13:00 08/28/21 13:29 DC 08/28/21 13:38 200 MLS/HR Sodium Chloride 100 ml ONCE ONCE IV 08/28/21 13:15 08/28/21 13:16 DC 08/28/21 14:09 80 ML (ERASTO LERNER MD) Vital Signs/I&O 08/28/21 08/28/21 12:31 15:55 Temp 37.1 37.1 Pulse 87 81 Resp 16 16 B/P (MAP) 132/80 (97) 119/84 Pulse Ox 94 97 O2 Delivery Nasal Cannula Nasal Cannula O2 Flow Rate 2.00 2.00 2.00 (ERASTO LERNER MD) Blood Pressure Mean: 97 Departure Communication (PCP) Patient has had a chronic colonic fistula. She does have some stool noted on exam on dressing. Patient is concerned for purulent drainage and possible infection. Hospitalization 1 month ago at [facility] for infection. Follow-up with Dr. River one week after being discharge. It was recommended for patient to lose weight as she needs reversal of this. She saw her primary care physician yesterday they are scheduling her for wound care. No evidence of infection on exam. skin irritation noted. Does have stool noted on dressing and coming from colonic fistula. CT abdomen pelvis does show the colonic fistula. No palpable abscess. Does show left ureter nephrosis. Urinalysis concerning for infection. Will discharge with Keflex. Will need follow-up if symptoms do not improve with urinalysis or urology follow up to rule out any potential cancerous etiology. Normal white blood count. Does not appear toxic or septic. Discussed Neosporin and wound care. Vaseline topical. Will likely benefit with a colostomy bag to help with stool. If any worsening symptoms return back to ED. does not appear to be acute infection at this time (HAMZAH HE) Impression Primary Impression: Colonic fistula Disposition: 01 HOME, SELF-CARE Condition: Stable Departure-Patient Inst. Decision time for Depature: 15:27 (HAMZAH HE) Referrals: DARIO MUNOZ MD (PCP/Family) Primary Care Physician Patient Instructions: Enterocutaneous Fistula (DC) Scripts Cephalexin (Cephalexin) 500 Mg Tablet 500 MG PO TID for 10 Days, #30 TAB Prov: HAMZAH HE 08/28/21 ATTENDING PHYSICIAN NOTE: I was physically present as attending physician in the emergency department during the care of this patient, but I was not directly involved in the decision making or delivery of care for this patient. (ERASTO LERNER MD) HAMZAH HE August 28, 2021 12:58 ERASTO LERNER MD August 28, 2021 20:06
[2021-08-28] MEDS ORDERED: PIPERACILLIN SODIUM/TAZOBACTAM 4.5 GM in NS (IVPB) 100 ML IV ONE (13:00)
[2021-08-28 13:08] LABS: BASOPHILS # (AUTO) 0.1 10^3/uL (0.0-0.1); BASOPHILS % (AUTO) 1 % (0-10); EOSINOPHILS # (AUTO) 0.1 10^3/uL (0.0-0.3); EOSINOPHILS % (AUTO) 2 % (0-10); HEMATOCRIT 37 % (35-52); HEMOGLOBIN 11.9 g/dL (11.5-16.0); LYMPHOCYTES # (AUTO) 2.1 10^3/uL (1.0-4.0); LYMPHOCYTES % (AUTO) 24 % (12-44); MEAN CORPUSCULAR HEMOGLOBIN 27 pg (25-34); MEAN CORPUSCULAR HGB CONC 32 g/dL (32-36); MEAN CORPUSCULAR VOLUME 84 fL (80-99); MEAN PLATELET VOLUME 9.5 fL (9.0-12.2); MONOCYTES % (AUTO) 11 % (0-12); NEUTROPHILS # (AUTO) 5.5 10^3/uL (1.8-7.8); NEUTROPHILS % (AUTO) 63 % (42-75); PLATELET COUNT 219 10^3/uL (130-400); WHITE BLOOD COUNT 8.8 10^3/uL (4.3-11.0)
[2021-08-28] MEDS ORDERED: NS 100 ML (IVPB) BAG IV ONE (13:15)
[2021-08-28] MEDS ORDERED: IOHEXOL 350 MG/ML 100 ML (OMNIPAQUE 350) VIAL IV ONE (13:15)
[2021-08-28 13:17] LABS: ALBUMIN 3.8 GM/DL (3.2-4.5)
[2021-08-28 13:18] LABS: POTASSIUM 3.4 MMOL/L (3.6-5.0)
[2021-08-28 13:19] LABS: CALCIUM 9.6 MG/DL (8.5-10.1)
[2021-08-28 13:20] LABS: TOTAL PROTEIN 7.7 GM/DL (6.4-8.2)
[2021-08-28 13:22] LABS: BILIRUBIN,TOTAL 0.5 MG/DL (0.1-1.0)
[2021-08-28 13:24] LABS: CREATININE SERUM 0.99 MG/DL (0.60-1.30)
--- NOTE | 2021-08-28 14:24 | Diagnostic Imaging Report ---
EXAMINATION: CT abdomen and pelvis with intravenous contrast. TECHNIQUE: Multiple contiguous axial images were obtained through the abdomen and pelvis after the uneventful administration of intravenous contrast. All CT scans use one or more of the following dose optimizing techniques: Automated exposure control, MA and/or KvP adjustment based on patient size and exam type or iterative reconstruction. HISTORY: Abdominal pain. COMPARISON: 03/11/2021. FINDINGS: Limited views of the lower thorax are unremarkable. The liver is normal without focal lesion. There is no biliary ductal dilation. Gallbladder is decompressed. Pancreas is normal. Spleen is normal. There is a stable 9 mm left adrenal nodule. There are bilateral renal stones. There is a left-sided hydroureteronephrosis. There is urothelial thickening and enhancement on the left. Urinary bladder is normal. There is an unchanged 3.3 x 2.8 cm right adnexal cyst with internal septations. There is no soft tissue thickening in the midline of the abdomen with a contiguous loop of bowel and stool and gas extending nearly to the skin surface concerning for a colocutaneous fistula. No free fluid or air. No abdominal or pelvic lymphadenopathy. Aorta is normal in caliber without aneurysm. There are no suspicious osseous lesions. IMPRESSION: 1. Soft tissue thickening in the midline of the abdomen with a contiguous loop of colon and stool and gas extending nearly to the skin surface concerning for a colocutaneous fistula. 2. Left-sided hydroureteronephrosis with urothelial thickening and enhancement. Differential includes an ascending urinary tract infection or a urothelial malignancy. Urologic evaluation recommended. Dictated by: Dictated on workstation # [id number]
[2021-08-28 15:55] VITALS: BP 119/84
[2021-08-28 16:13] LABS: BILIRUBIN,URINE NEGATIVE (NEGATIVE); CLARITY,URINE CLOUDY; COLOR,URINE ORANGE; GLUCOSE, URINE (UA) TRACE (NEGATIVE); KETONES,URINE NEGATIVE (NEGATIVE); LEUKOCYTE ESTERASE ,URINE 3+ (NEGATIVE); NITRITE,URINE NEGATIVE (NEGATIVE); PROTEIN,URINE 1+ (NEGATIVE)
[2021-08-28 16:18] LABS: BACTERIA,URINE FEW /HPF; WBC,URINE >100 /HPF
[2021-08-28] MEDS ORDERED: CEPH500T PO (16:28)
== END 2021-08-28 15:55 | disposition home or self-care (01) ==
LOC: EDUNIT# 12:20 → ER 12:21
DX: K63.2 Fistula of intestine (principal); J44.9 Chronic obstructive pulmonary disease, unspecified; E66.01 Morbid (severe) obesity due to excess calories; Z99.81 Dependence on supplemental oxygen
CPT/HCPCS: 36415; 74177; 80053; 81000; 83605; 83690; 85025; 87040; 87077; 87088; 87186

== ENCOUNTER 2021-09-01 10:59 | Outpatient (RCR) | payer MEDICARE, MEDICAID ==
[2021-08-11 12:01] LABS: BASOPHILS % (AUTO) 0 % (0-10); EOSINOPHILS # (AUTO) 0.2 10^3/uL (0.0-0.3); EOSINOPHILS % (AUTO) 2 % (0-10); HEMATOCRIT 37 % (35-52); HEMOGLOBIN 11.6 g/dL (11.5-16.0); LYMPHOCYTES # (AUTO) 2.6 10^3/uL (1.0-4.0); LYMPHOCYTES % (AUTO) 27 % (12-44); MEAN CORPUSCULAR HEMOGLOBIN 27 pg (25-34); MEAN CORPUSCULAR HGB CONC 31 g/dL (32-36); MEAN CORPUSCULAR VOLUME 85 fL (80-99); MEAN PLATELET VOLUME 9.9 fL (9.0-12.2); MONOCYTES # (AUTO) 0.8 10^3/uL (0.0-1.0); MONOCYTES % (AUTO) 8 % (0-12); NEUTROPHILS # (AUTO) 5.9 10^3/uL (1.8-7.8); NEUTROPHILS % (AUTO) 62 % (42-75); PLATELET COUNT 264 10^3/uL (130-400); WHITE BLOOD COUNT 9.6 10^3/uL (4.3-11.0)
[2021-08-11 12:15] VITALS: BP 144/88
[2021-08-11 12:19] LABS: ALBUMIN 3.6 GM/DL (3.2-4.5); BILIRUBIN,TOTAL 0.5 MG/DL (0.1-1.0); CALCIUM 9.3 MG/DL (8.5-10.1); MAGNESIUM 2.2 MG/DL (1.6-2.4); PHOSPHORUS 4.2 MG/DL (2.3-4.7); POTASSIUM 4.1 MMOL/L (3.6-5.0); TOTAL PROTEIN 7.3 GM/DL (6.4-8.2)
[2021-08-18 10:45] VITALS: BP 144/74
[2021-08-18 11:19] LABS: BASOPHILS % (AUTO) 0 % (0-10); EOSINOPHILS # (AUTO) 0.2 10^3/uL (0.0-0.3); EOSINOPHILS % (AUTO) 2 % (0-10); HEMATOCRIT 35 % (35-52); HEMOGLOBIN 10.9 g/dL (11.5-16.0); LYMPHOCYTES # (AUTO) 2.4 10^3/uL (1.0-4.0); LYMPHOCYTES % (AUTO) 30 % (12-44); MEAN CORPUSCULAR HEMOGLOBIN 26 pg (25-34); MEAN CORPUSCULAR HGB CONC 31 g/dL (32-36); MEAN CORPUSCULAR VOLUME 86 fL (80-99); MEAN PLATELET VOLUME 9.5 fL (9.0-12.2); MONOCYTES # (AUTO) 0.6 10^3/uL (0.0-1.0); MONOCYTES % (AUTO) 7 % (0-12); NEUTROPHILS % (AUTO) 61 % (42-75); PLATELET COUNT 271 10^3/uL (130-400); WHITE BLOOD COUNT 8.2 10^3/uL (4.3-11.0)
[2021-08-18 11:37] LABS: ALBUMIN 3.5 GM/DL (3.2-4.5); POTASSIUM 4.1 MMOL/L (3.6-5.0)
[2021-08-18 11:38] LABS: CALCIUM 8.6 MG/DL (8.5-10.1)
[2021-08-18 11:41] LABS: BILIRUBIN,TOTAL 0.3 MG/DL (0.1-1.0)
[2021-08-18 11:42] LABS: PHOSPHORUS 3.7 MG/DL (2.3-4.7)
[2021-08-18 11:43] LABS: CREATININE SERUM 1.07 MG/DL (0.60-1.30)
[2021-08-18 11:45] LABS: MAGNESIUM 2.1 MG/DL (1.6-2.4)
[2021-08-26 10:45] VITALS: BP 141/78
[2021-08-26 11:19] LABS: BASOPHILS % (AUTO) 0 % (0-10)
[2021-08-26 11:21] LABS: EOSINOPHILS # (AUTO) 0.1 10^3/uL (0.0-0.3); EOSINOPHILS % (AUTO) 1 % (0-10); HEMATOCRIT 35 % (35-52); HEMOGLOBIN 11.1 g/dL (11.5-16.0); LYMPHOCYTES % (AUTO) 25 % (12-44); MEAN CORPUSCULAR HEMOGLOBIN 27 pg (25-34); MEAN CORPUSCULAR HGB CONC 31 g/dL (32-36); MEAN CORPUSCULAR VOLUME 85 fL (80-99); MEAN PLATELET VOLUME 10.1 fL (9.0-12.2); MONOCYTES # (AUTO) 0.6 10^3/uL (0.0-1.0); MONOCYTES % (AUTO) 8 % (0-12); NEUTROPHILS # (AUTO) 5.2 10^3/uL (1.8-7.8); NEUTROPHILS % (AUTO) 65 % (42-75); PLATELET COUNT 195 10^3/uL (130-400)
[2021-08-26 11:29] LABS: ALBUMIN 3.5 GM/DL (3.2-4.5); POTASSIUM 3.6 MMOL/L (3.6-5.0)
[2021-08-26 11:30] LABS: CALCIUM 8.8 MG/DL (8.5-10.1)
[2021-08-26 11:33] LABS: BILIRUBIN,TOTAL 0.4 MG/DL (0.1-1.0)
[2021-08-26 11:35] LABS: CREATININE SERUM 0.91 MG/DL (0.60-1.30); PHOSPHORUS 3.3 MG/DL (2.3-4.7)
[2021-08-26 11:38] LABS: MAGNESIUM 2.1 MG/DL (1.6-2.4)
[~2021-09-01] VITALS: Ht 160 cm; Wt 119.0 kg
[~2021-09-01 10:59] MED LIST changes: +CEPH500T PO
[2021-09-01 11:35] VITALS: BP 140/77
[2021-09-01 11:49] LABS: BASOPHILS % (AUTO) 1 % (0-10); EOSINOPHILS # (AUTO) 0.2 10^3/uL (0.0-0.3); EOSINOPHILS % (AUTO) 2 % (0-10); HEMATOCRIT 34 % (35-52); HEMOGLOBIN 10.7 g/dL (11.5-16.0); LYMPHOCYTES % (AUTO) 25 % (12-44); MEAN CORPUSCULAR HEMOGLOBIN 27 pg (25-34); MEAN CORPUSCULAR HGB CONC 31 g/dL (32-36); MEAN CORPUSCULAR VOLUME 85 fL (80-99); MEAN PLATELET VOLUME 9.4 fL (9.0-12.2); MONOCYTES # (AUTO) 0.6 10^3/uL (0.0-1.0); MONOCYTES % (AUTO) 8 % (0-12); NEUTROPHILS # (AUTO) 5.1 10^3/uL (1.8-7.8); NEUTROPHILS % (AUTO) 64 % (42-75); PLATELET COUNT 209 10^3/uL (130-400)
[2021-09-01 12:13] LABS: ALBUMIN 3.6 GM/DL (3.2-4.5); BILIRUBIN,TOTAL 0.4 MG/DL (0.1-1.0); CALCIUM 8.8 MG/DL (8.5-10.1); CREATININE SERUM 0.93 MG/DL (0.60-1.30); MAGNESIUM 1.9 MG/DL (1.6-2.4); PHOSPHORUS 3.1 MG/DL (2.3-4.7); POTASSIUM 3.5 MMOL/L (3.6-5.0); TOTAL PROTEIN 7.1 GM/DL (6.4-8.2)
== END 2021-09-09 | disposition home or self-care (01) ==
LOC: SDC 10:59
PROVIDERS: ATTEND Internal Medicine
DX: Z51.81 Encounter for therapeutic drug level monitoring (principal); Z79.899 Other long term (current) drug therapy
CPT/HCPCS: 80053; 83735; 84100; 84134; 84478; 85025; G0463; 36415; 36591; 99211

== ENCOUNTER → 2021-09-05 | Outpatient (CLI) | payer MEDICARE, MEDICAID ==
[~2021-09-05] MED LIST changes: +ALTEPLASE 2 MG (CATHFLO) IV ONE
[2021-09-05 09:35] VITALS: BP 117/72
--- NOTE | 2021-09-05 10:22 | Diagnostic Imaging Report ---
Indication: PICC line placement. Time of Exam: 10:00 a.m. Correlation is made with prior study 07/05/2021. A right-sided line has tip overlying the SVC. There is a loop within the line projected over the right lung apex near the confluence of the medial right subclavian vein and SVC. Lungs are clear. There is no pneumothorax. IMPRESSION: Right-sided line does have a loop within it however the tip does appear to be appropriately positioned overlying the SVC. Dictated by: Dictated on workstation # [id number]
--- NOTE | 2021-09-05 11:57 | Diagnostic Imaging Report ---
Indication: Catheter placement. Compared with study earlier the same date, tip of the vascular catheter in the lower SVC in good position. There is again demonstrated a loop in that device without focal kinking, this projecting at the level of the medial right clavicular head unchanged. No pneumothorax. Impression: Distal catheter tip in good position, a loop in its mid segment at the level of the medial right subclavian however is persistent. Dictated by: Dictated on workstation # [id number]
--- NOTE | 2021-09-05 12:16 | Diagnostic Imaging Report ---
Indication: Line placement. Findings: Right-sided vascular catheter has its tip in the SVC. A small caliber looped in that structure persists at the level of the medial right clavicle, loops somewhat more taut than on recent studies but remains present. No pneumothorax. Impression: There is persistent albeit tighter small loop in the vascular catheter as it projects over the medial right clavicular head distally at the SVC with no pneumothorax. Dictated by: Dictated on workstation # [id number]
--- NOTE | 2021-09-05 12:25 | Diagnostic Imaging Report ---
INDICATION: Central line. TECHNIQUE: This film is entered at 11:55 a.m., single AP radiograph of the chest, compared with the most recent exam entered at 11:44 a.m. FINDINGS: A focal loop having persistently projected over the medial right clavicle is no longer found. Catheter however is directed retrograde upon itself near the junction of the innominate such that its most distal component is directed retrograde and lies just along the superior cortex of the medial third of the right clavicle adjacent to its descending segment. The length of the retrograde component is about 4.5 cm. There is no pneumothorax. IMPRESSION: 1. While the focal circular loop in the device is no longer found, catheter deflects upon itself and distally is directed retrograde over its last 4.5 cm such that the distal tip now is alongside its antegrade component but terminating just above the medial right clavicle. 2. No pneumothorax. Dictated by: Dictated on workstation # [id number]
== END ==
LOC: SDC 09:45
PROVIDERS: ATTEND Surgery
DX: Z45.2 Encounter for adjustment and management of vascular access device (principal)
CPT/HCPCS: 36569; 71045; 76937; C1751

== ENCOUNTER 2021-09-23 21:52 | Emergency (ER) | payer MEDICARE, MEDICAID ==
[~2021-09-23] VITALS: Ht 160 cm; Wt 123.0 kg
[~2021-09-23 21:52] MED LIST changes: -ALTEPLASE 2 MG (CATHFLO) IV ONE
--- NOTE | 2021-09-23 22:50 | ED General ---
General Stated Complaint: PICC LINE PAIN Source of Information: Patient Exam Limitations: No Limitations History of Present Illness Date Seen by Provider: Sep 23, 2021 Time Seen by Provider: 22:24 Initial Comments .Patient to the ER with her significant other chief complaint that she is having some increasing pain and irritation at the site of insertion of her right PICC line. She is not having any fevers chills nausea vomiting. She says it just rubs on the inside of her chest wall. She started noticing the irritation in the past couple days. She came in yesterday and had the dressing changed. She is not having any known discharge from the PICC site. She is receiving TPN for a nonhealing wound so that she can try and go for surgery. The wound is on her abdomen related to a hernia operation a couple years ago. PICC line and TPN are being managed by Dr. River. Allergies and Home Medications Allergies Coded Allergies: No Known Drug Allergies (Unverified , 11/16/18) Patient Home Medication List Home Medication List Reviewed: Yes Amlodipine Besylate (Amlodipine Besylate) 5 Mg Tablet, 5 MG PO DAILY, (Reported) Entered as Reported by: ROSA WALKER on 03/12/21 1205 Ascorbic Acid (Vitamin C) 500 Mg Tablet, 500 MG PO DAILY, (Reported) Entered as Reported by: ROSA WALKER on 03/12/21 1205 Aspirin (Aspirin EC) 81 Mg Tablet.dr, 81 MG PO DAILY, (Reported) Entered as Reported by: ROSA WALKER on 03/12/21 1205 Atorvastatin Calcium (Atorvastatin Calcium) 40 Mg Tablet, 40 MG PO DAILY, (Reported) Entered as Reported by: KING LOPEZ on 11/16/18 1602 Bupropion HCl (Bupropion HCl Sr) 150 Mg Tablet.er, 150 MG PO DAILY, (Reported) Entered as Reported by: ROSA WALKER on 03/12/21 1205 Cephalexin (Cephalexin) 500 Mg Tablet, 500 MG PO TID Prescribed by: ASHLEIGH NAJERA on 08/28/21 1628 Cholecalciferol (Vitamin D3) (Vitamin D3) 125 Mcg Tablet, 125 MCG PO DAILY, (Reported) Entered as Reported by: TRACY HESS on 09/01/19 1108 Cyanocobalamin (Vitamin B-12) (Vitamin B-12) 1,000 Mcg Capsule, 1,000 MCG PO DAILY, (Reported) Entered as Reported by: ROSA WALKER on 03/12/21 1205 Dapagliflozin Propanediol (Farxiga) 10 Mg Tablet, 10 MG PO DAILY, (Reported) Entered as Reported by: ROSA WALKER on 03/12/21 1205 Famotidine (Famotidine) 20 Mg Tablet, 20 MG PO HS, (Reported) Entered as Reported by: ROSA WALKER on 03/12/21 1205 Fish Oil/Dha/Epa (Fish Oil 1,200 mg Fish Oil) 1 Each Capsule, 1 EACH PO DAILY, (Reported) Entered as Reported by: ROSA WALKER on 03/12/21 1205 Fluconazole (Diflucan) 150 Mg Tablet, 150 MG PO UD Prescribed by: ERASTO SORENSEN on 07/05/21 0820 Fluoxetine HCl (Fluoxetine HCl) 40 Mg Capsule, 40 MG PO DAILY, (Reported) Entered as Reported by: ROSA WALKER on 03/12/21 1205 Gabapentin (Gabapentin) 600 Mg Tablet, 600 MG PO BID, (Reported) Entered as Reported by: KITTY DAVIDSON on 08/19/20 1202 Gabapentin (Gabapentin) 600 Mg Tablet, 600 MG PO 1200 PRN for PAIN-BREAKTHROUGH, (Reported) Entered as Reported by: ROSA WALKER on 03/12/21 1205 Hydrocodone/Acetaminophen (Hydrocodone-Acetamin 5-325 mg) 1 Each Tablet, 1 TAB PO Q6H PRN for PAIN-BREAKTHROUGH Prescribed by: ERASTO SORENSEN on 07/05/21 0821 Insulin Detemir (Levemir Flextouch) 100 Unit/1 Ml Insuln.pen, 20 UNIT SQ BID PRN for HYPERGLYCEMIA, (Reported) Entered as Reported by: ROSA WALKER on 03/12/21 1232 Levofloxacin (Levofloxacin) 750 Mg Tablet, 750 MG PO DAILY Prescribed by: ERASTO SORENSEN on 07/05/21 0820 Lisinopril (Lisinopril) 20 Mg Tablet, 20 MG PO HS, (Reported) Entered as Reported by: TRACY HESS on 01/09/15 1414 Magnesium Oxide (Magnesium Oxide) 400 Mg Tablet, 400 MG PO DAILY, (Reported) Entered as Reported by: GAEL JENSEN on 01/28/15 1629 Metoprolol Succinate (Metoprolol Succinate) 25 Mg Tab.er.24h, 25 MG PO DAILY, (Reported) Entered as Reported by: ROSA WALKER on 03/12/21 1205 Oxybutynin Chloride (Oxybutynin Chloride ER) 10 Mg Tab.er.24, 10 MG PO DAILY, (Reported) Entered as Reported by: ROSA WALKER on 03/12/21 1205 Oxycodone Hcl (Oxyir Tablet) 5 Mg Tab, 5 MG PO Q4H PRN for PAIN-SEVERE (8-10) Prescribed by: ALEIDA LICEA on 03/16/21 1208 Semaglutide (Ozempic) 1 Mg/0.75 Ml Pen.injctr, 1 MG SQ FRI, (Reported) Entered as Reported by: KITTY DAVIDSON on 08/19/20 1202 Zinc (Zinc) 50 Mg Tablet, 50 MG PO DAILY, (Reported) Entered as Reported by: ROSA WALKER on 03/12/21 1205 Review of Systems Review of Systems Constitutional: No chills, No diaphoresis, No fever, No malaise EENTM: No ear discharge, No ear pain Respiratory: No cough, No short of breath Cardiovascular: No chest pain, No edema Gastrointestinal: No abdominal pain, No nausea, No vomiting Genitourinary: No discharge, No dysuria Musculoskeletal: No back pain, No joint pain Skin: see HPI All Other Systems Reviewed Negative Unless Noted: Yes Past Oamyhqk-Aurtvp-Cutoul Hx Patient Social History Tobacco Use?: No Use of E-Cig and/or Vaping dev: No Substance use?: No Immunizations Up To Date Tetanus Booster (TDap): More than 5yrs First/Initial COVID19 Vaccinat: JANUARY 2021 Second COVID19 Vaccination Darwin: FEBRUARY 2021 Third COVID19 Vaccination Date: N/A Seasonal Allergies Seasonal Allergies: No Past Medical History Surgery/Hospitalization HX: has fistula and is on TPN to right chest port that was placed by [facility] Surgeries: Yes Abdominal Respiratory: Yes (BI-PAP, OXYGEN) COPD Currently Using CPAP: No Currently Using BIPAP: Yes Cardiac: Yes High Cholesterol, Hypertension Neurological: Yes (chronic numbness rt proximal lateral thigh.) Neuropathy 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 Disorders: Yes (BENIGN OVARIAN TUMOR) Female 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 Disorders: Denies [employer]NA[employer] History: Hysterectomy, Tubal Ligation, Menopausal Sexually Transmitted Disease: No HIV/AIDS: No Genitourinary: Yes (STAGE 3 KIDNEY FAILURE) Kidney Stones, Renal Failure Gastrointestinal: Yes (Abdominal wall fistula) Abdominal Hernia, Chronic Constipation, Diverticulosis, C-Diff Musculoskeletal: Yes Degenerate Disk Disease, Arthritis, Fibromyalgia, Chronic Back Pain Endocrine: Yes (MORBID OBESITY) Diabetes, Non-Insulin dep HEENT: Yes (GLASSES, DENTURES) Cataract Loss of Vision: Denies Hearing Impairment: Denies Cancer: No Psychosocial: Yes Depression Integumentary: No Blood Disorders: No Adverse Reaction/Blood Tranf: No (N/A) Family Medical History Arthritis 19 FATHER Cardiovascular disease 19 FATHER Completed stroke 19 MOTHER Diabetes mellitus 19 FATHER Hypertension 19 FATHER G8 SISTER Myocardial infarction 19 FATHER Respiratory disorder 19 MOTHER Heart Disease, Diabetes, Hypertension, Lung Disease, Stroke Physical Exam Vital Signs Capillary Refill : Height, Weight, BMI Height: 5'3.00" Weight: 273lbs. 2.0oz. 123.897084ig; 46.00 BMI Method:Stated General Appearance: No Apparent Distress, Obese Eyes: Bilateral Eye Normal Inspection, Bilateral Eye PERRL, Bilateral Eye EOMI HEENT: PERRL/EOMI, Pharynx Normal, Moist Mucous Membranes Neck: Full Range of Motion, Normal Inspection Respiratory: No Accessory Muscle Use, No Respiratory Distress Extremity: Normal Capillary Refill, Normal Inspection Neurologic/Psychiatric: Alert Skin: Other (Mild erythema and warmth at the insertion site of the right brachial PICC line.) Procedures/Interventions Date of ETT Placement: Nov 20, 2018 Time of ETT Placement: 1505 Progress/Results/Core Measures Suspected Sepsis SIRS Temperature: Pulse: Respiratory Rate: Blood Pressure / Mean: Results/Orders My Orders Orders - MARVIN CORREIA Blood Culture (09/23/21 22:44) Vital Signs/I&O Capillary Refill : Progress Note #1: Time: 22:48 Progress Note We have a nurse skilled PICC line management is going to take the dressing down today and see if there is any drainage. Suspicious for a line of surgical site infection. We will get some cultures from the line as well as peripherally. Aseptic vital signs, heart rate in the upper 80s, afebrile. If it looks infected then we will take the line out and have her follow-up for new PICC line placement tomorrow, outpatient. Progress Note #2: Time: 23:07 Progress Note With the dressing down there did not seem to be an appreciable amount of erythema, no drainage or discharge or malodor. She insisted she would like it out so we went ahead and removed the PICC line and sent the tip down for culture as well. The patient states that immediately felt better after we took it out making it more likely a mechanical irritation than infection. We will follow the cultures and have her follow-up for repeat PICC placement tomorrow. We have encouraged her strongly to talk to Dr. River about getting a Port-A-Cath placed. Departure Impression Primary Impression: Complication associated with peripherally inserted central catheter (PICC) Qualified Codes: T82.9XXA - Unspecified complication of cardiac and vascular prosthetic device, implant and graft, initial encounter Disposition: 01 HOME, SELF-CARE Condition: Stable Departure-Patient Inst. Decision time for Depature: 23:08 Referrals: DARIO MUNOZ MD (PCP/Family) Primary Care Physician Patient Instructions: PICC-POST REMOVAL CARE Add. Discharge Instructions: Call Dr. River and discussed getting a Port-A-Cath placed. Return to outpatient by calling for an appointment in the morning to have another PICC line places so you may continue TPN. MARVIN CORREIA Sep 23, 2021 22:50
[2021-09-23 23:22] VITALS: BP 141/99
== END 2021-09-23 23:22 | disposition home or self-care (01) ==
LOC: EDUNIT# 21:52 → ER 21:53
DX: T82.898A Other specified complication of vascular prosthetic devices, implants and grafts, initial encounter (principal); J44.9 Chronic obstructive pulmonary disease, unspecified; E66.01 Morbid (severe) obesity due to excess calories; Z99.81 Dependence on supplemental oxygen; Z68.42 Body mass index [BMI] 45.0-49.9, adult
CPT/HCPCS: 87040; 87070; 87077

== ENCOUNTER → 2021-09-29 | Outpatient (CLI) | payer MEDICARE, MEDICAID ==
[2021-09-29 11:33] VITALS: BP 136/73
--- NOTE | 2021-09-29 13:06 | Diagnostic Imaging Report ---
CLINICAL INDICATION: Patient with PICC line placement. EXAM: Portable chest x-ray upright view. COMPARISON: Chest x-ray dated 09/05/2021. FINDINGS: Previously seen right-sided central line has been removed. Lungs/pleura: There are mild airspace opacities involving both lung bases, suspected to represent atelectasis. There is no definite lung infiltrate. There is no pneumothorax. There is no pleural effusion. Mediastinum: Unremarkable. Pulmonary vasculature: Unremarkable. Heart: Unremarkable. Bones/extrathoracic soft tissue: There are hypertrophic spurs involving the thoracic spine. IMPRESSION: Mild bibasilar atelectasis. There is no radiographic evidence of acute cardiopulmonary process. Dictated by: Dictated on workstation # [id number]
[2021-09-29 13:30] VITALS: BP 130/72
== END ==
LOC: SDC 11:16
PROVIDERS: ATTEND Emergency Medicine
DX: Z45.2 Encounter for adjustment and management of vascular access device (principal); J98.11 Atelectasis
CPT/HCPCS: 36569; 71045; 76937; C1751

== ENCOUNTER 2021-10-06 10:35 | Outpatient (RCR) | payer MEDICARE, MEDICAID ==
[2021-09-15 11:40] VITALS: BP 145/78
[2021-09-15 12:10] LABS: BASOPHILS # (AUTO) 0.1 10^3/uL (0.0-0.1); BASOPHILS % (AUTO) 1 % (0-10); EOSINOPHILS # (AUTO) 0.2 10^3/uL (0.0-0.3); EOSINOPHILS % (AUTO) 2 % (0-10); HEMATOCRIT 36 % (35-52); HEMOGLOBIN 11.1 g/dL (11.5-16.0); LYMPHOCYTES # (AUTO) 2.5 10^3/uL (1.0-4.0); LYMPHOCYTES % (AUTO) 28 % (12-44); MEAN CORPUSCULAR HEMOGLOBIN 26 pg (25-34); MEAN CORPUSCULAR HGB CONC 31 g/dL (32-36); MEAN CORPUSCULAR VOLUME 85 fL (80-99); MEAN PLATELET VOLUME 9.4 fL (9.0-12.2); MONOCYTES # (AUTO) 0.6 10^3/uL (0.0-1.0); MONOCYTES % (AUTO) 7 % (0-12); NEUTROPHILS # (AUTO) 5.6 10^3/uL (1.8-7.8); NEUTROPHILS % (AUTO) 62 % (42-75); PLATELET COUNT 241 10^3/uL (130-400)
[2021-09-15 12:36] LABS: ALBUMIN 3.8 GM/DL (3.2-4.5); BILIRUBIN,TOTAL 0.4 MG/DL (0.1-1.0); CALCIUM 9.6 MG/DL (8.5-10.1); CREATININE SERUM 0.91 MG/DL (0.60-1.30); MAGNESIUM 2.3 MG/DL (1.6-2.4); PHOSPHORUS 3.7 MG/DL (2.3-4.7); POTASSIUM 3.7 MMOL/L (3.6-5.0); TOTAL PROTEIN 7.5 GM/DL (6.4-8.2)
[2021-09-22 10:45] VITALS: BP 117/67
[2021-09-22 11:37] LABS: BASOPHILS % (AUTO) 0 % (0-10); EOSINOPHILS # (AUTO) 0.2 10^3/uL (0.0-0.3); EOSINOPHILS % (AUTO) 2 % (0-10); HEMATOCRIT 36 % (35-52); HEMOGLOBIN 11.2 g/dL (11.5-16.0); LYMPHOCYTES # (AUTO) 2.4 10^3/uL (1.0-4.0); LYMPHOCYTES % (AUTO) 27 % (12-44); MEAN CORPUSCULAR HEMOGLOBIN 26 pg (25-34); MEAN CORPUSCULAR HGB CONC 31 g/dL (32-36); MEAN CORPUSCULAR VOLUME 85 fL (80-99); MEAN PLATELET VOLUME 9.6 fL (9.0-12.2); MONOCYTES # (AUTO) 0.7 10^3/uL (0.0-1.0); MONOCYTES % (AUTO) 7 % (0-12); NEUTROPHILS # (AUTO) 5.6 10^3/uL (1.8-7.8); NEUTROPHILS % (AUTO) 63 % (42-75); PLATELET COUNT 217 10^3/uL (130-400)
[2021-09-22 11:57] LABS: ALBUMIN 3.7 GM/DL (3.2-4.5); BILIRUBIN,TOTAL 0.3 MG/DL (0.1-1.0); CREATININE SERUM 1.04 MG/DL (0.60-1.30); MAGNESIUM 2.1 MG/DL (1.6-2.4); PHOSPHORUS 3.2 MG/DL (2.3-4.7); POTASSIUM 3.7 MMOL/L (3.6-5.0); TOTAL PROTEIN 7.2 GM/DL (6.4-8.2)
[2021-09-29 13:49] LABS: BASOPHILS # (AUTO) 0.1 10^3/uL (0.0-0.1); BASOPHILS % (AUTO) 1 % (0-10); EOSINOPHILS # (AUTO) 0.3 10^3/uL (0.0-0.3); EOSINOPHILS % (AUTO) 2 % (0-10); HEMATOCRIT 38 % (35-52); HEMOGLOBIN 11.8 g/dL (11.5-16.0); LYMPHOCYTES # (AUTO) 4.2 10^3/uL (1.0-4.0); LYMPHOCYTES % (AUTO) 37 % (12-44); MEAN CORPUSCULAR HEMOGLOBIN 26 pg (25-34); MEAN CORPUSCULAR HGB CONC 31 g/dL (32-36); MEAN CORPUSCULAR VOLUME 85 fL (80-99); MEAN PLATELET VOLUME 9.8 fL (9.0-12.2); MONOCYTES # (AUTO) 0.8 10^3/uL (0.0-1.0); MONOCYTES % (AUTO) 7 % (0-12); NEUTROPHILS % (AUTO) 53 % (42-75); PLATELET COUNT 280 10^3/uL (130-400); WHITE BLOOD COUNT 11.4 10^3/uL (4.3-11.0)
[2021-09-29 14:08] LABS: BILIRUBIN,TOTAL 0.5 MG/DL (0.1-1.0); CALCIUM 9.4 MG/DL (8.5-10.1); CREATININE SERUM 0.86 MG/DL (0.60-1.30); PHOSPHORUS 3.7 MG/DL (2.3-4.7); POTASSIUM 3.7 MMOL/L (3.6-5.0); TOTAL PROTEIN 7.7 GM/DL (6.4-8.2)
[~2021-10-06] VITALS: Wt 119.0 kg
[2021-10-06 11:01] LABS: BASOPHILS # (AUTO) 0.1 10^3/uL (0.0-0.1); BASOPHILS % (AUTO) 1 % (0-10); EOSINOPHILS # (AUTO) 0.2 10^3/uL (0.0-0.3); EOSINOPHILS % (AUTO) 2 % (0-10); HEMATOCRIT 36 % (35-52); HEMOGLOBIN 11.3 g/dL (11.5-16.0); LYMPHOCYTES # (AUTO) 2.4 10^3/uL (1.0-4.0); LYMPHOCYTES % (AUTO) 30 % (12-44); MEAN CORPUSCULAR HEMOGLOBIN 26 pg (25-34); MEAN CORPUSCULAR HGB CONC 31 g/dL (32-36); MEAN CORPUSCULAR VOLUME 85 fL (80-99); MEAN PLATELET VOLUME 9.9 fL (9.0-12.2); MONOCYTES # (AUTO) 0.6 10^3/uL (0.0-1.0); MONOCYTES % (AUTO) 7 % (0-12); NEUTROPHILS # (AUTO) 4.9 10^3/uL (1.8-7.8); NEUTROPHILS % (AUTO) 60 % (42-75); PLATELET COUNT 237 10^3/uL (130-400); WHITE BLOOD COUNT 8.2 10^3/uL (4.3-11.0)
[2021-10-06 11:25] VITALS: BP 130/73
[2021-10-06 11:30] LABS: ALBUMIN 3.7 GM/DL (3.2-4.5); POTASSIUM 3.7 MMOL/L (3.6-5.0)
[2021-10-06 11:31] LABS: CALCIUM 8.7 MG/DL (8.5-10.1)
[2021-10-06 11:32] LABS: TOTAL PROTEIN 7.2 GM/DL (6.4-8.2)
[2021-10-06 11:34] LABS: BILIRUBIN,TOTAL 0.3 MG/DL (0.1-1.0)
[2021-10-06 11:35] LABS: PHOSPHORUS 3.1 MG/DL (2.3-4.7)
[2021-10-06 11:36] LABS: CREATININE SERUM 1.1 MG/DL (0.60-1.30)
[2021-10-06 11:39] LABS: MAGNESIUM 2.1 MG/DL (1.6-2.4)
== END 2021-10-09 | disposition home or self-care (01) ==
LOC: SDC 10:35
PROVIDERS: ATTEND Internal Medicine
DX: Z51.81 Encounter for therapeutic drug level monitoring (principal); Z79.899 Other long term (current) drug therapy
CPT/HCPCS: 80053; 83735; 84100; 84134; 84478; 85025; G0463; 36415; 99211

== ENCOUNTER 2021-10-20 12:23 | Emergency (ER) | payer MEDICARE, MEDICAID ==
[~2021-10-20] VITALS: Ht 160 cm; Wt 122.5 kg
--- NOTE | 2021-10-20 13:12 | ED General ---
General Chief Complaint: General Problems/Pain Stated Complaint: TREMORS Nursing Triage Note: PT AMBULATE TO ROOM 06 WITH PERSONAL WALKER WITH C/O SHAKING EARLIER TODAY. PT REPORTS SHE HAD EPISODE OF SHAKING LASTING APPROX 25 MINS. PT DENIES SHAKING UPON ARRIVAL. PT NOT WEARING HOME O2 ON ARRIVAL AND PT STATES SHE WAS NOT WEARING HOME O2 IN THE VEHICLE TODAY EITHER. PT REPORTS SHE WAS NOT WEARING HER HOME O2 SO SHE COULD SMOKE CIGARETTES. PT O2 81% RA UPON ARRIVAL. PT PLACED ON O2 AT 2LPM AND O2 SAT TO 98%. PT STATES SHE FEELS MUCH BETTER. Source of Information: Patient Exam Limitations: No Limitations History of Present Illness Date Seen by Provider: Oct 20, 2021 Time Seen by Provider: 12:45 Initial Comments Patient to the ER by private conveyance chief complaint she had about a 30 to 45-minute episode of shaking/tremors while she was driving home in her car about on an hour prior to arrival. She says it went away by the time she arrived here. She says nursing told her her blood sugar was 170 when she arrived. She is a diabetic. She is oxygen dependent COPD. She was smoking cigarettes which she has recently taken up again. She was not wearing her oxygen. Nursing states that her oxygen saturation was 80% on arrival. She is not having any cough, outside of the normal, fever, chills, nausea, vomiting, diarrhea. Nursing put her on her baseline 2 L and she is in the mid 90s and feeling better. She is never had tremors like this before. She is not having any chest pain. She does occasionally get some arm cramps but that is associated for the last couple weeks with shingles shot which she had an adverse reaction to. Allergies and Home Medications Allergies Coded Allergies: No Known Drug Allergies (Unverified , 11/16/18) Patient Home Medication List Home Medication List Reviewed: Yes Amlodipine Besylate (Amlodipine Besylate) 5 Mg Tablet, 5 MG PO DAILY, (Reported) Entered as Reported by: ROSA WALKER on 03/12/21 1205 Ascorbic Acid (Vitamin C) 500 Mg Tablet, 500 MG PO DAILY, (Reported) Entered as Reported by: ROSA WALKER on 03/12/21 1205 Aspirin (Aspirin EC) 81 Mg Tablet.dr, 81 MG PO DAILY, (Reported) Entered as Reported by: ROSA WALKER on 03/12/21 1205 Atorvastatin Calcium (Atorvastatin Calcium) 40 Mg Tablet, 40 MG PO DAILY, (Reported) Entered as Reported by: KING LOPEZ on 11/16/18 1602 Bupropion HCl (Bupropion HCl Sr) 150 Mg Tablet.er, 150 MG PO DAILY, (Reported) Entered as Reported by: ROSA WALKER on 03/12/21 1205 Cephalexin (Cephalexin) 500 Mg Tablet, 500 MG PO TID Prescribed by: ASHLEIGH NAJERA on 08/28/21 1628 Cholecalciferol (Vitamin D3) (Vitamin D3) 125 Mcg Tablet, 125 MCG PO DAILY, (Reported) Entered as Reported by: TRACY HESS on 09/01/19 1108 Cyanocobalamin (Vitamin B-12) (Vitamin B-12) 1,000 Mcg Capsule, 1,000 MCG PO DAILY, (Reported) Entered as Reported by: ROSA WALKER on 03/12/21 1205 Dapagliflozin Propanediol (Farxiga) 10 Mg Tablet, 10 MG PO DAILY, (Reported) Entered as Reported by: ROSA WALKER on 03/12/21 1205 Famotidine (Famotidine) 20 Mg Tablet, 20 MG PO HS, (Reported) Entered as Reported by: ROSA WALKER on 03/12/21 1205 Fish Oil/Dha/Epa (Fish Oil 1,200 mg Fish Oil) 1 Each Capsule, 1 EACH PO DAILY, (Reported) Entered as Reported by: ROSA WALKER on 03/12/21 1205 Fluconazole (Diflucan) 150 Mg Tablet, 150 MG PO UD Prescribed by: ERASTO SORENSEN on 07/05/21 0820 Fluoxetine HCl (Fluoxetine HCl) 40 Mg Capsule, 40 MG PO DAILY, (Reported) Entered as Reported by: ROSA WALKER on 03/12/21 1205 Gabapentin (Gabapentin) 600 Mg Tablet, 600 MG PO BID, (Reported) Entered as Reported by: KITTY DAVIDSON on 08/19/20 1202 Gabapentin (Gabapentin) 600 Mg Tablet, 600 MG PO 1200 PRN for PAIN-BREAKTHROUGH, (Reported) Entered as Reported by: ROSA WALKER on 03/12/21 1205 Hydrocodone/Acetaminophen (Hydrocodone-Acetamin 5-325 mg) 1 Each Tablet, 1 TAB PO Q6H PRN for PAIN-BREAKTHROUGH Prescribed by: ERASTO SORENSEN on 07/05/21 0821 Insulin Detemir (Levemir Flextouch) 100 Unit/1 Ml Insuln.pen, 20 UNIT SQ BID PRN for HYPERGLYCEMIA, (Reported) Entered as Reported by: ROSA WALKER on 03/12/21 1232 Levofloxacin (Levofloxacin) 750 Mg Tablet, 750 MG PO DAILY Prescribed by: ERASTO SORENSEN on 07/05/21 0820 Lisinopril (Lisinopril) 20 Mg Tablet, 20 MG PO HS, (Reported) Entered as Reported by: TRACY HESS on 01/09/15 1414 Magnesium Oxide (Magnesium Oxide) 400 Mg Tablet, 400 MG PO DAILY, (Reported) Entered as Reported by: GAEL JENSEN on 01/28/15 1629 Metoprolol Succinate (Metoprolol Succinate) 25 Mg Tab.er.24h, 25 MG PO DAILY, (Reported) Entered as Reported by: ROSA WALKER on 03/12/21 1205 Oxybutynin Chloride (Oxybutynin Chloride ER) 10 Mg Tab.er.24, 10 MG PO DAILY, (Reported) Entered as Reported by: ROSA WALKER on 03/12/21 1205 Oxycodone Hcl (Oxyir Tablet) 5 Mg Tab, 5 MG PO Q4H PRN for PAIN-SEVERE (8-10) Prescribed by: ALEIDA LICEA on 03/16/21 1208 Semaglutide (Ozempic) 1 Mg/0.75 Ml Pen.injctr, 1 MG SQ FRI, (Reported) Entered as Reported by: KITTY DAVIDSON on 08/19/20 1202 Zinc (Zinc) 50 Mg Tablet, 50 MG PO DAILY, (Reported) Entered as Reported by: ROSA WALKER on 03/12/21 1205 Review of Systems Review of Systems Constitutional: see HPI; No chills, No diaphoresis EENTM: No ear discharge, No ear pain Respiratory: No cough, No short of breath Cardiovascular: No chest pain, No edema Gastrointestinal: No abdominal pain, No nausea Genitourinary: No discharge, No dysuria Musculoskeletal: No back pain, No joint pain All Other Systems Reviewed Negative Unless Noted: Yes Past Wmfbnnu-Lggspf-Pjhmvo Hx Patient Social History Tobacco Use?: Yes Tobacco type used: Cigarettes Smoking Status: Current Everyday Smoker Smokeless Tobacco Frequency: Never a User Use of E-Cig and/or Vaping dev: No Use of E-Cig and/or Vaping Tony: Never a User Substance use?: Yes Substance type: Marijuana Substance frequency: Daily Alcohol Use?: No Pt feels they are or have been: No Immunizations Up To Date Tetanus Booster (TDap): More than 5yrs First/Initial COVID19 Vaccinat: JANUARY 2021 Second COVID19 Vaccination Darwin: FEBRUARY 2021 Third COVID19 Vaccination Date: N/A COVID19 Vaccine Dental Hygienist: MODERNA Seasonal Allergies Seasonal Allergies: No Past Medical History Surgery/Hospitalization HX: has fistula and is on TPN to right chest port that was placed by [facility] Surgeries: Yes Abdominal Respiratory: Yes (BI-PAP, OXYGEN) COPD Currently Using CPAP: No Currently Using BIPAP: Yes Cardiac: Yes High Cholesterol, Hypertension Neurological: Yes (chronic numbness rt proximal lateral thigh.) Neuropathy 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 Disorders: Yes (BENIGN OVARIAN TUMOR) Female 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 Disorders: Denies [employer] History: Hysterectomy, Tubal Ligation, Menopausal Sexually Transmitted Disease: No HIV/AIDS: No Genitourinary: Yes (STAGE 3 KIDNEY FAILURE) Kidney Stones, Renal Failure Gastrointestinal: Yes (Abdominal wall fistula) Abdominal Hernia, Chronic Constipation, Diverticulosis, C-Diff Musculoskeletal: Yes Degenerate Disk Disease, Arthritis, Fibromyalgia, Chronic Back Pain Endocrine: Yes (MORBID OBESITY) Diabetes, Non-Insulin dep HEENT: Yes (GLASSES, DENTURES) Cataract Loss of Vision: Denies Hearing Impairment: Denies Cancer: No Psychosocial: Yes Depression Integumentary: No Blood Disorders: No Adverse Reaction/Blood Tranf: No (N/A) Family Medical History Arthritis 19 FATHER Cardiovascular disease 19 FATHER Completed stroke 19 MOTHER Diabetes mellitus 19 FATHER Hypertension 19 FATHER G8 SISTER Myocardial infarction 19 FATHER Respiratory disorder 19 MOTHER Heart Disease, Diabetes, Hypertension, Lung Disease, Stroke Physical Exam Vital Signs Vital Signs - First Documented 10/20/21 12:44 Temp 37.3 Pulse 94 Resp 17 B/P (MAP) 159/79 (105) Pulse Ox 98 O2 Delivery Room Air O2 Flow Rate 2.00 Capillary Refill : Less Than 3 Seconds Height, Weight, BMI Height: 5'3.00" Weight: 273lbs. 2.0oz. 123.820029tu; 47.00 BMI Method:Stated General Appearance: No Apparent Distress, WD/WN, Obese Eyes: Bilateral Eye Normal Inspection, Bilateral Eye PERRL, Bilateral Eye EOMI HEENT: PERRL/EOMI, TMs Normal, Normal ENT Inspection, Pharynx Normal, Moist Mu cous Membranes Neck: Full Range of Motion, Normal Inspection, Non Tender Respiratory: Lungs Clear, Normal Breath Sounds, No Accessory Muscle Use, No Respiratory Distress, Other (Oxygen saturation 96% on 2 L by nasal cannula, nonlabored respirations) Cardiovascular: Regular Rate, Rhythm, No Edema, Normal Peripheral Pulses Gastrointestinal: Normal Bowel Sounds, Non Tender, Soft Extremity: Normal Capillary Refill, Normal Inspection, No Pedal Edema Neurologic/Psychiatric: Alert, Oriented x3 Skin: Normal Color, Warm/Dry Procedures/Interventions Date of ETT Placement: Nov 20, 2018 Time of ETT Placement: 1505 Progress/Results/Core Measures Suspected Sepsis SIRS Temperature: Pulse: 94 Respiratory Rate: 17 Laboratory Tests 10/20/21 13:19: White Blood Count 11.3H Blood Pressure 159 /79 Mean: 105 Laboratory Tests 10/20/21 13:19: Creatinine 0.98, Platelet Count 190, Total Bilirubin 0.8 Results/Orders Lab Results Laboratory Tests Test 10/20/21 13:09 10/20/21 13:19 10/20/21 13:44 10/20/21 17:47 Range/Units Glucometer 146 H 70-110 MG/DL White Blood Count 11.3 H 4.3-11.0 10^3/uL Red Blood Count 4.37 3.80-5.11 10^6/uL Hemoglobin 11.4 L 11.5-16.0 g/dL Hematocrit 37 35-52 % Mean Corpuscular Volume 84 80-99 fL Mean Corpuscular Hemoglobin 26 25-34 pg Mean Corpuscular Hemoglobin Concent 31 L 32-36 g/dL Red Cell Distribution Width 15.5 H 10.0-14.5 % Platelet Count 190 130-400 10^3/uL Mean Platelet Volume 9.4 9.0-12.2 fL Immature Granulocyte % (Auto) 1 % Neutrophils (%) (Auto) 79 H 42-75 % Lymphocytes (%) (Auto) 8 L 12-44 % Monocytes (%) (Auto) 10 0-12 % Eosinophils (%) (Auto) 1 0-10 % Basophils (%) (Auto) 0 0-10 % Neutrophils # (Auto) 9.0 H 1.8-7.8 10^3/uL Lymphocytes # (Auto) 0.9 L 1.0-4.0 10^3/uL Monocytes # (Auto) 1.1 H 0.0-1.0 10^3/uL Eosinophils # (Auto) 0.1 0.0-0.3 10^3/uL Basophils # (Auto) 0.0 0.0-0.1 10^3/uL Immature Granulocyte # (Auto) 0.1 0.0-0.1 10^3/uL D-Dimer 1.61 H 0.00-0.49 UG/ML Sodium Level 138 135-145 MMOL/L Potassium Level 4.0 3.6-5.0 MMOL/L Chloride Level 101 98-107 MMOL/L Carbon Dioxide Level 26 21-32 MMOL/L Anion Gap 11 5-14 MMOL/L Blood Urea Nitrogen 16 7-18 MG/DL Creatinine 0.98 0.60-1.30 MG/DL Estimat Glomerular Filtration Rate 64 BUN/Creatinine Ratio 16 Glucose Level 133 H 70-105 MG/DL Calcium Level 9.1 8.5-10.1 MG/DL Corrected Calcium 9.3 8.5-10.1 MG/DL Magnesium Level 1.9 1.6-2.4 MG/DL Total Bilirubin 0.8 0.1-1.0 MG/DL Aspartate Amino Transf (AST/SGOT) 18 5-34 U/L Alanine Aminotransferase (ALT/SGPT) 19 0-55 U/L Alkaline Phosphatase 70 40-136 U/L Total Creatine Kinase 120 29-168 U/L C-Reactive Protein High Sensitivity 6.37 H 0.00-0.50 MG/DL B-Type Natriuretic Peptide 39.7 <100.0 PG/ML Total Protein 7.5 6.4-8.2 GM/DL Albumin 3.8 3.2-4.5 GM/DL Procalcitonin 0.39 H <0.10 NG/ML SARS-CoV-2 RNA (RT-PCR) Not Detected Not Detecte Blood Gas Puncture Site L RAD Blood Gas Patient Temperature 37.6 Arterial Blood pH 7.40 7.37-7.43 Arterial Blood Partial Pressure CO2 42 35-45 MMHG Arterial Blood Partial Pressure O2 77 L 79-93 MMHG Arterial Blood HCO3 26 23-27 MMOL/L Arterial Blood Total CO2 27.0 21.0-31.0 MMOL/L Arterial Blood Oxygen Saturation 97 94-100 % Arterial Blood Base Excess 1.3 -2.5-2.5 MMOL/L Christiano Test YES-POS Blood Gas Ventilator Setting NO Blood Gas Inspired Oxygen 2 Troponin I < 0.028 <0.028 NG/ML My Orders Orders - MARVIN CORREIA Cbc With Automated Diff (10/20/21 13:02) Comprehensive Metabolic Panel (10/20/21 13:02) Hs C Reactive Protein (10/20/21 13:02) Continuous Ekg Monitoring (10/20/21 13:02) Ekg Tracing (10/20/21 13:02) Arterial Blood Gas (10/20/21 13:02) Ed Iv/Invasive Line Start (10/20/21 13:02) Ns Iv 500 Ml (Sodium Chloride 0.9%) (10/20/21 13:15) Chest 1 View, Ap/Pa Only (10/20/21 13:02) Covid 19 Inhouse Test (10/20/21 13:02) Accucheck Stat ONCE (10/20/21 13:02) Procalcitonin (Pct) (10/20/21 13:02) Bnp Tucker (10/20/21 13:02) Fibrin Degradation Products (10/20/21 13:02) Magnesium (10/20/21 13:12) Creatine Kinase (10/20/21 13:12) Troponin I Renea (10/20/21 15:13) Medications Given in ED Current Medications Medications Dose Ordered Sig/Gracie Route Start Time Stop Time Status Last Admin Dose Admin Sodium Chloride 500 ml @ 0 mls/hr Q0M ONCE IV 10/20/21 13:15 10/20/21 13:16 DC 10/20/21 13:30 999 MLS/HR Vital Signs/I&O 10/20/21 12:44 Temp 37.3 Pulse 94 Resp 17 B/P (MAP) 159/79 (105) Pulse Ox 98 O2 Delivery Room Air O2 Flow Rate 2.00 Capillary Refill : Less Than 3 Seconds Blood Pressure Mean: 105 Progress Note : Time: 13:49 Progress Note Suspect that her tremors may have been related to the fact she was hypoxic when she arrived. Put her on oxygen she is doing well we will get an ABG chest x-ray and some basic labs. He does not need any extra DuoNeb at this time. ECG Initial ECG Impression Date: Oct 20, 2021 Initial ECG Impression Time: 13:13 Initial ECG Rate: 90 Initial ECG Rhythm: Normal Sinus Initial ECG Intervals: Normal Initial ECG Impression: Normal Comment Normal sinus rhythm without clinically relevant ST changes. Diagnostic Imaging Diagonstic Imaging: Xray Plain Films/CT/US/NM/MRI: chest Comments [facility] [place], [place] NAME: ASHLEY BENTLEY [facility] REC#: [id number] PT STATUS: REG ER : 1955 PHYSICIAN: MARVIN CORREIA MD ADMIT DATE: 10/20/21/ER Draft Date of Exam:10/20/21 CHEST 1 VIEW, AP/PA ONLY INDICATION: Dyspnea. AP view of the chest is obtained with comparison made to study of 09/29/2021. FINDINGS: Heart size and pulmonary vascularity are within normal limits, and the lungs are clear, bilaterally. Left upper extremity PICC is in stable position. IMPRESSION: Unremarkable chest. Dictated on workstation # [id number] Dict: 10/20/21 1418 Trans: 10/20/21 1420 [id number] Interpreted by: ANABELLA BATES MD Electronically signed by: Reviewed: Reviewed by Me Departure Impression Primary Impression: Occasional tremors Additional Impression: Hypoxia Disposition: 01 HOME, SELF-CARE Condition: Stable Departure-Patient Inst. Decision time for Depature: 18:43 Referrals: DARIO MUNOZ MD (PCP/Family) Primary Care Physician Patient Instructions: Tremor Add. Discharge Instructions: I suspect that the episode of tremors you had is probably related to how low your oxygen was when you got here. Try and member to wear it more often. If you get sicker check in with your doctor or return to ER for further evaluation. All discharge instructions reviewed with patient and/or family. Voiced understanding. MARVIN CORREIA Oct 20, 2021 13:12
[2021-10-20] MEDS ORDERED: NS IV 500 ML 500 ML IV ONE (13:15)
[2021-10-20 13:29] LABS: BASOPHILS % (AUTO) 0 % (0-10); EOSINOPHILS # (AUTO) 0.1 10^3/uL (0.0-0.3); EOSINOPHILS % (AUTO) 1 % (0-10); HEMATOCRIT 37 % (35-52); HEMOGLOBIN 11.4 g/dL (11.5-16.0); LYMPHOCYTES # (AUTO) 0.9 10^3/uL (1.0-4.0); LYMPHOCYTES % (AUTO) 8 % (12-44); MEAN CORPUSCULAR HEMOGLOBIN 26 pg (25-34); MEAN CORPUSCULAR HGB CONC 31 g/dL (32-36); MEAN CORPUSCULAR VOLUME 84 fL (80-99); MEAN PLATELET VOLUME 9.4 fL (9.0-12.2); MONOCYTES # (AUTO) 1.1 10^3/uL (0.0-1.0); MONOCYTES % (AUTO) 10 % (0-12); NEUTROPHILS % (AUTO) 79 % (42-75); PLATELET COUNT 190 10^3/uL (130-400); WHITE BLOOD COUNT 11.3 10^3/uL (4.3-11.0)
[2021-10-20 13:47] LABS: ALBUMIN 3.8 GM/DL (3.2-4.5)
[2021-10-20 13:48] LABS: CALCIUM 9.1 MG/DL (8.5-10.1)
[2021-10-20 13:49] LABS: TOTAL PROTEIN 7.5 GM/DL (6.4-8.2)
[2021-10-20 13:49] LABS: ABG BASE EXCESS 1.3 MMOL/L (-2.5-2.5); ABG OXYGEN SATURATION 97 % (94-100); ABG PCO2 42 MMHG (35-45); ABG PO2 77 MMHG (79-93); ALLENS TEST YES-POS; INSPIRED O2 2; VENTILATOR NO
[2021-10-20 13:50] LABS: PATIENT TEMP 37.6
[2021-10-20 13:51] LABS: BILIRUBIN,TOTAL 0.8 MG/DL (0.1-1.0)
[2021-10-20 13:53] LABS: CREATININE SERUM 0.98 MG/DL (0.60-1.30)
[2021-10-20 13:56] LABS: MAGNESIUM 1.9 MG/DL (1.6-2.4)
--- NOTE | 2021-10-20 14:21 | Diagnostic Imaging Report ---
INDICATION: Dyspnea. AP view of the chest is obtained with comparison made to study of 09/29/2021. FINDINGS: Heart size and pulmonary vascularity are within normal limits, and the lungs are clear, bilaterally. Left upper extremity PICC is in stable position. IMPRESSION: Unremarkable chest. Dictated by: Dictated on workstation # [id number]
[2021-10-20 18:46] VITALS: BP 137/83
== END 2021-10-20 18:46 | disposition home or self-care (01) ==
LOC: EDUNIT# 12:23 → ER 12:24
DX: R25.1 Tremor, unspecified (principal); R09.02 Hypoxemia; J44.9 Chronic obstructive pulmonary disease, unspecified; E66.01 Morbid (severe) obesity due to excess calories; F17.210 Nicotine dependence, cigarettes, uncomplicated; Z99.81 Dependence on supplemental oxygen; Z68.42 Body mass index [BMI] 45.0-49.9, adult; Z20.822 Contact with and (suspected) exposure to COVID-19
CPT/HCPCS: 36415; 71045; 80053; 82550; 82805; 82947; 83735; 83880; 84145; 84484; 85025; 85379; 86141; 87636; 93005

== ENCOUNTER 2021-10-24 21:30 | Emergency (ER) | payer MEDICARE, MEDICAID ==
[~2021-10-24] VITALS: Ht 160 cm; Wt 122.5 kg
[2021-10-24] MEDS ORDERED: ASPIRIN 81 MG CHEW (CHILDREN'S ASA) PO ONE (21:45)
[2021-10-24] MEDS ORDERED: NITROGLYCERIN 0.4 MG SL TABS BTL 25'S SL PRN (21:45)
[2021-10-24] MEDS ORDERED: ONDANSETRON 4 MG/2 ML (SDV) Z0FRAN IV PRN (22:15)
[2021-10-24] MEDS ORDERED: IBUPROFEN 800 MG (MOTRIN) TAB PO ONE (22:15)
[2021-10-24] MEDS ORDERED: ACETAMINOPHEN 500 MG TAB (TYLENOL) PO PRN (22:15)
[2021-10-24] MEDS ORDERED: methylPREDNISolone 125 MG (Solu-MEDROL) VIAL IVP ONE (22:15)
--- NOTE | 2021-10-24 22:21 | Diagnostic Imaging Report ---
INDICATION: Chest pain. COMPARISON: 10/20/2021. FINDINGS: Left PICC line at the upper SVC, stable. No focal consolidation. No effusion or pneumothorax. Pulmonary venous structures are perhaps mildly distended but the heart size is stable. IMPRESSION: Borderline venous congestion but no tonya edema, pleural fluid or pneumonia. Dictated by: Dictated on workstation # [id number]
[2021-10-24 22:42] LABS: BASOPHILS % (AUTO) 0 % (0-10); EOSINOPHILS # (AUTO) 0.1 10^3/uL (0.0-0.3); EOSINOPHILS % (AUTO) 1 % (0-10); HEMATOCRIT 39 % (35-52); HEMOGLOBIN 12.2 g/dL (11.5-16.0); LYMPHOCYTES # (AUTO) 0.8 10^3/uL (1.0-4.0); LYMPHOCYTES % (AUTO) 11 % (12-44); MEAN CORPUSCULAR HEMOGLOBIN 26 pg (25-34); MEAN CORPUSCULAR HGB CONC 31 g/dL (32-36); MEAN CORPUSCULAR VOLUME 83 fL (80-99); MEAN PLATELET VOLUME 9.5 fL (9.0-12.2); MONOCYTES # (AUTO) 0.1 10^3/uL (0.0-1.0); MONOCYTES % (AUTO) 1 % (0-12); NEUTROPHILS # (AUTO) 6.5 10^3/uL (1.8-7.8); NEUTROPHILS % (AUTO) 85 % (42-75); PLATELET COUNT 177 10^3/uL (130-400); WHITE BLOOD COUNT 7.6 10^3/uL (4.3-11.0)
[2021-10-24 22:51] LABS: POTASSIUM 4.4 MMOL/L (3.6-5.0)
[2021-10-24 22:53] LABS: CALCIUM 9.5 MG/DL (8.5-10.1)
[2021-10-24 22:54] LABS: TOTAL PROTEIN 8.3 GM/DL (6.4-8.2)
[2021-10-24 22:55] LABS: BILIRUBIN,TOTAL 0.6 MG/DL (0.1-1.0)
[2021-10-24 22:57] LABS: CREATININE SERUM 1.44 MG/DL (0.60-1.30)
[2021-10-24 22:58] LABS: FIBRIN DEGRADATION PRODUCTS 3.19 UG/ML (0.00-0.49); PROTHROMBIN TIME PATIENT 13.2 SEC (12.2-14.7)
[2021-10-24 23:00] LABS: MAGNESIUM 1.9 MG/DL (1.6-2.4)
[2021-10-24 23:02] LABS: BILIRUBIN,URINE NEGATIVE (NEGATIVE); CLARITY,URINE CLEAR; COLOR,URINE YELLOW; GLUCOSE, URINE (UA) 3+ (NEGATIVE); KETONES,URINE NEGATIVE (NEGATIVE); LEUKOCYTE ESTERASE ,URINE 1+ (NEGATIVE); NITRITE,URINE NEGATIVE (NEGATIVE); PH,URINE 7.5 (5-9); PROTEIN,URINE NEGATIVE (NEGATIVE)
[2021-10-24 23:09] LABS: CREATINE KINASE MB 1.3 NG/ML (<6.6)
[2021-10-24] MEDS ORDERED: NS IV 1000 ML 1,000 ML IV SCH (23:30)
[2021-10-24 23:33] LABS: BACTERIA,URINE FEW /HPF; WBC,URINE 25-50 /HPF
[2021-10-25] MEDS ORDERED: NS 100 ML (IVPB) BAG IV ONE (01:15)
[2021-10-25] MEDS ORDERED: IOHEXOL 350 MG/ML 100 ML (OMNIPAQUE 350) VIAL IV ONE (01:15)
[2021-10-25] MEDS ORDERED: CATHETER FLUSH 10 ML SYR IV PRN (01:15)
--- NOTE | 2021-10-25 01:32 | ED General ---
General Chief Complaint: General Problems/Pain Stated Complaint: CP, SOA Nursing Triage Note: PT TO [facility] WITH C/O SHAKINESS FOR THE LAST TWO HOURS AND CP BEFORE ARRIVING TO ER. PT SEEN HERE A COUPLE OF DAYS AGO AND URGENT CARE YESTERDAY FOR SAME SX Source of Information: Patient (JERE AMIN DO) History of Present Illness Date Seen by Provider: Oct 24, 2021 Time Seen by Provider: 21:37 Initial Comments PT ARRIVES VIA POV FROM HOME C/O CHEST PAIN--MID CHEST, NO RADIATION. NOTHING WORSENS OR IMPROVES PAIN, HAS NOT TAKEN ANYTHING FOR PAIN PAIN BEGAN JUST PRIOR TO ARRIVAL C/O SHORTNESS OF BREATH--PT WITH CHRONIC DYSPNEA/COPD, AND IS SUPPOSED TO BE ON O2 AT 2L/NC CONTINUOUSLY, BUT ARRIVES WITHOUT HER HOME O2. ALSO HAS BIPAP AT HOME STATES HER SHORTNESS OF BREATH IS NOT ANY DIFFERENT THAN NORMAL PT CONTINUES TO SMOKE AT LEAST 1 PPD, AND SMOKES MARIJUANA DAILY STATES HER TEMP HAS BEEN "101.7" FOR THE LAST FEW DAYS--HAS NOT TAKEN ANYTHING FOR FEVER AT ANY TIME C/O "SHAKING" FOR THE LAST COUPLE OF HOURS, BUT DID NOT CHECK HER TEMP IN THAT TIME. WAS SEEN HERE 2 DAYS AGO FOR THIS SAME COMPLAINT OF "SHAKING" -NO SIGNFICANT FINDINGS ON WORK UP IN ER PT STATES SHE WENT TO THE URGENT CARE IN [place] YESTERDAY FOR "SHAKING" --NO TESTS AND NO RX GIVEN. HAS NOT ATTEMPTED TO CONTACT HER PCP OR GO TO [facility] FOR THESE SYMPTOMS NO NAUSEA/VOMITING/DIARRHEA/ABDOMINAL PAIN NO HEADACHE NO BODY ACHES NO URI SYMPTOMS HAS CHRONIC COUGH THAT IS NO DIFFERENT THAN NORMAL NO SWELLING IN LEGS/FEET OR PAIN IN CALVES PT IS NON-INSULIN DEPENDENT DIABETIC--STATES BLOOD SUGAR WAS 109 AT HOME, PRIOR TO ARRIVAL PT HAS HAD COVID-19 VACCINE X 2--LAST ONE WAS SOMETIME LAST YEAR NO KNOWN SICK CONTACTS PCP: [facility], DR. DARIO MUNOZ. (JERE AMIN DO) Allergies and Home Medications Allergies Coded Allergies: No Known Drug Allergies (Unverified , 11/16/18) Patient Home Medication List Home Medication List Reviewed: Yes (JERE AMIN ) Amlodipine Besylate (Amlodipine Besylate) 5 Mg Tablet, 5 MG PO DAILY, (Reported) Entered as Reported by: ROSA WALKER on 03/12/21 1205 Ascorbic Acid (Vitamin C) 500 Mg Tablet, 500 MG PO DAILY, (Reported) Entered as Reported by: ROSA WALKER on 03/12/21 1205 Aspirin (Aspirin EC) 81 Mg Tablet.dr, 81 MG PO DAILY, (Reported) Entered as Reported by: ROSA WALKER on 03/12/21 1205 Atorvastatin Calcium (Atorvastatin Calcium) 40 Mg Tablet, 40 MG PO DAILY, (Reported) Entered as Reported by: KING LOPEZ on 11/16/18 1602 Bupropion HCl (Bupropion HCl Sr) 150 Mg Tablet.er, 150 MG PO DAILY, (Reported) Entered as Reported by: ROSA WALKER on 03/12/21 120 Cephalexin (Cephalexin) 500 Mg Tablet, 500 MG PO TID Prescribed by: ASHLEIGH NAJERA on 08/28/21 1628 Cholecalciferol (Vitamin D3) (Vitamin D3) 125 Mcg Tablet, 125 MCG PO DAILY, (Reported) Entered as Reported by: TRACY HESS on 09/01/19 1108 Ciprofloxacin HCl (Ciprofloxacin HCl) 500 Mg Tablet, 500 MG PO BID Prescribed by: JERE AMIN on 10/25/21 0204 Cyanocobalamin (Vitamin B-12) (Vitamin B-12) 1,000 Mcg Capsule, 1,000 MCG PO DAILY, (Reported) Entered as Reported by: ROSA WALKER on 03/12/21 1205 Dapagliflozin Propanediol (Farxiga) 10 Mg Tablet, 10 MG PO DAILY, (Reported) Entered as Reported by: ROSA WALKER on 03/12/21 1205 Famotidine (Famotidine) 20 Mg Tablet, 20 MG PO HS, (Reported) Entered as Reported by: ROSA WALKER on 03/12/21 1205 Fish Oil/Dha/Epa (Fish Oil 1,200 mg Fish Oil) 1 Each Capsule, 1 EACH PO DAILY, (Reported) Entered as Reported by: ROSA WALKER on 03/12/21 1205 Fluconazole (Diflucan) 150 Mg Tablet, 150 MG PO UD Prescribed by: ERASTO SORENSEN on 07/05/21 0820 Fluoxetine HCl (Fluoxetine HCl) 40 Mg Capsule, 40 MG PO DAILY, (Reported) Entered as Reported by: ROSA WALKER on 03/12/21 1205 Gabapentin (Gabapentin) 600 Mg Tablet, 600 MG PO BID, (Reported) Entered as Reported by: KITTY DAVIDSON on 08/19/20 1202 Gabapentin (Gabapentin) 600 Mg Tablet, 600 MG PO 1200 PRN for PAIN-BREAKTHROUGH, (Reported) Entered as Reported by: ROSA WALKER on 03/12/21 1205 Hydrocodone/Acetaminophen (Hydrocodone-Acetamin 5-325 mg) 1 Each Tablet, 1 TAB PO Q6H PRN for PAIN-BREAKTHROUGH Prescribed by: ERASTO SORENSEN on 07/05/21 0821 Insulin Detemir (Levemir Flextouch) 100 Unit/1 Ml Insuln.pen, 20 UNIT SQ BID PRN for HYPERGLYCEMIA, (Reported) Entered as Reported by: ROSA WALKER on 03/12/21 1232 Levofloxacin (Levofloxacin) 750 Mg Tablet, 750 MG PO DAILY Prescribed by: ERASTO SORENSEN on 07/05/21 0820 Lisinopril (Lisinopril) 20 Mg Tablet, 20 MG PO HS, (Reported) Entered as Reported by: TRACY HESS on 01/09/15 1414 Magnesium Oxide (Magnesium Oxide) 400 Mg Tablet, 400 MG PO DAILY, (Reported) Entered as Reported by: GAEL JENSEN on 01/28/15 1629 Metoprolol Succinate (Metoprolol Succinate) 25 Mg Tab.er.24h, 25 MG PO DAILY, (Reported) Entered as Reported by: ROSA WALKER on 03/12/21 1205 Oxybutynin Chloride (Oxybutynin Chloride ER) 10 Mg Tab.er.24, 10 MG PO DAILY, (Reported) Entered as Reported by: ROSA WALKER on 03/12/21 1205 Oxycodone Hcl (Oxyir Tablet) 5 Mg Tab, 5 MG PO Q4H PRN for PAIN-SEVERE (8-10) Prescribed by: ALEIDA LICEA on 03/16/21 1208 Semaglutide (Ozempic) 1 Mg/0.75 Ml Pen.injctr, 1 MG SQ FRI, (Reported) Entered as Reported by: KITTY DAVIDSON on 08/19/20 1202 Zinc (Zinc) 50 Mg Tablet, 50 MG PO DAILY, (Reported) Entered as Reported by: ROSA WALKER on 03/12/21 1205 Review of Systems Review of Systems Constitutional: see HPI, chills, fever EENTM: no symptoms reported Respiratory: see HPI, short of breath Cardiovascular: see HPI, chest pain; No edema Gastrointestinal: no symptoms reported; No abdominal pain, No diarrhea, No nausea, No vomiting Genitourinary: no symptoms reported Musculoskeletal: no symptoms reported Skin: no symptoms reported Psychiatric/Neurological: No Symptoms Reported Hematologic/Lymphatic: No Symptoms Reported Immunological/Allergic: no symptoms reported (JERE AMIN DO) Past Ucucnxt-Mfcjei-Ukkruu Hx Patient Social History Tobacco Use?: Yes Tobacco type used: Cigarettes Smoking Status: Current Everyday Smoker Substance use?: No Alcohol Use?: No Pt feels they are or have been: No (JERE AMIN DO) Immunizations Up To Date Tetanus Booster (TDap): More than 5yrs Influenza Vaccine Up-to-Date: Yes; Up-to-Date First/Initial COVID19 Vaccinat: JANUARY 2021 Second COVID19 Vaccination Darwin: FEBRUARY 2021 Third COVID19 Vaccination Date: N/A (JERE AMIN DO) Seasonal Allergies Seasonal Allergies: No (JERE AMIN DO) Past Medical History Surgery/Hospitalization HX: has fistula and is on TPN to right chest port that was placed by [facility] Surgeries: Yes Abdominal, Section, Hysterectomy, Oophorectomy, Orthopedic, Tonsillectomy, Tubal Ligation Respiratory: Yes (RESP FAILURE/INTUBATED 11/2018; BIPAP; HOME O2 2L/NC CONT. 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 History: Hysterectomy, Tubal Ligation, Menopausal Sexually Transmitted Disease: No HIV/AIDS: No Genitourinary: Yes (STAGE 3 KIDNEY FAILURE) Kidney Stones, Renal Failure Gastrointestinal: Yes (Abdominal wall fistula) Abdominal Hernia, Chronic Constipation, Diverticulosis, C-Diff Musculoskeletal: Yes Degenerate Disk Disease, Arthritis, Fibromyalgia, Chronic Back Pain Endocrine: Yes (MORBID OBESITY) Diabetes, Non-Insulin dep HEENT: Yes (GLASSES, DENTURES) Cataract Loss of Vision: Denies Hearing Impairment: Denies Cancer: No Psychosocial: Yes Depression Integumentary: No Blood Disorders: No Adverse Reaction/Blood Tranf: No (N/A) (JERE AMIN DO) Family Medical History Arthritis 19 FATHER Cardiovascular disease 19 FATHER Completed stroke 19 MOTHER Diabetes mellitus 19 FATHER Hypertension 19 FATHER G8 SISTER Myocardial infarction 19 FATHER Respiratory disorder 19 MOTHER Heart Disease, Diabetes, Hypertension, Lung Disease, Stroke SOCIAL HISTORY: -SMOKES 1 PPD -ETOH-DENIES USE -DRUGS-DAILY MARIJUANA USE PAST SURGICAL HISTORY: -TONSILLECTOMY -BILATERAL TUBAL LIGATION -BILATERAL CATARACTS 2019 -MULTIPLE COLONOSCOPIES--LAST ONE 08/[address] MAE -C-SPINE SURGERY 01/[address] NIETO -COLON RESECTION 2009 FOR DIVERTICULITIS - X 2 -BILATERAL CARPAL TUNNEL RELEASE -HYST/BSO 2005 -VENTRAL HERNIA REPAIRS X 3: VENTRAL HERNIA REPAIR WITH MESH BY DR. ELIZABETH 11/17/2018 --DEVELOPED ABSCESS AND ENTERO-CUTANEOUS FISTULA AND HAD DEBRIDEMENTS DEVELOPED RESPIRATORY FAILURE AND REQUIRED INTUBATION, AND DEVELOPED MULTI-ORGAN FAILURE AND WAS EVENTUALLY DISMISSED 12/24/2018 - PICC LINE PLACEMENT (JERE AMIN DO) Physical Exam Vital Signs Vital Signs - First Documented 10/24/21 21:30 Temp 36.9 Pulse 118 Resp 20 B/P (MAP) 137/96 (110) Pulse Ox 96 O2 Delivery Nasal Cannula (MATTIE MCDERMOTT MD) Vital Signs Capillary Refill : (JERE AMIN DO) Height, Weight, BMI Height: 5'3.00" Weight: 273lbs. 2.0oz. 123.977917pv; 47.00 BMI Method:Stated General Appearance: No Apparent Distress, WD/WN, Anxious, Obese (MORBIDLY OBESE), Other (GENERALIZED TREMORS/SHAKING--STOPS WHEN DISTRACTED OR WHEN STAFF LEAVE THE ROOM. DOES NOT APPEAR ILL OR TO BE IN ANY DISTRESS. PT IS DIRTY/UNKEMPT AND REEKS OF CIGARETTES AND THC) Neck: Normal Inspection Respiratory: Other (AUDIBLE WHEEZING ON ARRIVAL, DYSPNEIC. ) Cardiovascular: Tachycardia (130'S ) Gastrointestinal: Soft Extremity: Normal Capillary Refill Neurologic/Psychiatric: Alert, Oriented x3, No Motor/Sensory Deficits, medicare nurse II- XII Norm as Tested Skin: Normal Color, Warm/Dry (JERE AMIN DO) Focused Exam Sepsis Stage: Ruled Out Reason for ruling out sepsis: DOES NOT MEET CRITERIA Possible Source: Pulmonary (JERE AMIN DO) Lactate Level 10/24/21 22:20: Lactic Acid Level 2.14*H 10/25/21 01:15: Lactic Acid Level 1.79 (MATTIE MCDERMOTT MD) Time of Focused Exam: 22:30 Respiratory: Other (NO LONGER WHEEZING. NO DYSPNEA) Cardiovascular: Tachycardia (BUT HEART RATE DOWN TO 100'S FROM 130'S) Capillary Refill: Less Than 3 Seconds Skin: normal color, warm/dry (JERE AMIN DO) Lactic Acid Level Laboratory Tests Test 10/24/21 22:20 10/25/21 01:15 Lactic Acid Level 2.14 MMOL/L (0.50-2.00) *H 1.79 MMOL/L (0.50-2.00) (MATTIE MCDERMOTT MD) Within 3hrs of presentation: Blood cultures prior to ABX's, Focus exam, Lactate level, Other (FLUIDS HELD DUE TO NO EVIDENCE OF SEPSIS OR DEHYDRATION. NO INFECTION IDENTIFIED, NO ANTIBIOTICS GIVEN) (JERE AMIN DO) Procedures/Interventions Date of ETT Placement: Nov 20, 2018 Time of ETT Placement: 1505 (JERE AMIN DO) Progress/Results/Core Measures Suspected Sepsis SIRS Temperature: Pulse: 118 Respiratory Rate: 20 Laboratory Tests 10/24/21 22:20: White Blood Count 7.6 Blood Pressure 137 /96 Mean: 110 10/24/21 22:20: Lactic Acid Level 2.14*H 10/25/21 01:15: Lactic Acid Level 1.79 Laboratory Tests 10/24/21 22:20: Creatinine 1.44H, INR Comment 1.0, Platelet Count 177, Total Bilirubin 0.6 (JERE AMIN DO) Results/Orders Lab Results Laboratory Tests Test 10/24/21 21:40 10/24/21 22:20 10/24/21 22:35 10/24/21 22:58 Range/Units Glucometer 191 H 70-110 MG/DL White Blood Count 7.6 4.3-11.0 10^3/uL Red Blood Count 4.71 3.80-5.11 10^6/uL Hemoglobin 12.2 11.5-16.0 g/dL Hematocrit 39 35-52 % Mean Corpuscular Volume 83 80-99 fL Mean Corpuscular Hemoglobin 26 25-34 pg Mean Corpuscular Hemoglobin Concent 31 L 32-36 g/dL Red Cell Distribution Width 15.6 H 10.0-14.5 % Platelet Count 177 130-400 10^3/uL Mean Platelet Volume 9.5 9.0-12.2 fL Immature Granulocyte % (Auto) 1 % Neutrophils (%) (Auto) 85 H 42-75 % Lymphocytes (%) (Auto) 11 L 12-44 % Monocytes (%) (Auto) 1 0-12 % Eosinophils (%) (Auto) 1 0-10 % Basophils (%) (Auto) 0 0-10 % Neutrophils # (Auto) 6.5 1.8-7.8 10^3/uL Lymphocytes # (Auto) 0.8 L 1.0-4.0 10^3/uL Monocytes # (Auto) 0.1 0.0-1.0 10^3/uL Eosinophils # (Auto) 0.1 0.0-0.3 10^3/uL Basophils # (Auto) 0.0 0.0-0.1 10^3/uL Immature Granulocyte # (Auto) 0.1 0.0-0.1 10^3/uL Erythrocyte Sedimentation Rate 40 H 0-30 MM/HR Prothrombin Time 13.2 12.2-14.7 SEC INR Comment 1.0 0.8-1.4 Activated Partial Thromboplast Time 24 24-35 SEC D-Dimer 3.19 H 0.00-0.49 UG/ML Sodium Level 137 135-145 MMOL/L Potassium Level 4.4 3.6-5.0 MMOL/L Chloride Level 101 98-107 MMOL/L Carbon Dioxide Level 21 21-32 MMOL/L Anion Gap 15 H 5-14 MMOL/L Blood Urea Nitrogen 20 H 7-18 MG/DL Creatinine 1.44 H 0.60-1.30 MG/DL Estimat Glomerular Filtration Rate 40 BUN/Creatinine Ratio 14 Glucose Level 222 H 70-105 MG/DL Lactic Acid Level 2.14 *H 0.50-2.00 MMOL/L Calcium Level 9.5 8.5-10.1 MG/DL Corrected Calcium 9.5 8.5-10.1 MG/DL Magnesium Level 1.9 1.6-2.4 MG/DL Total Bilirubin 0.6 0.1-1.0 MG/DL Aspartate Amino Transf (AST/SGOT) 28 5-34 U/L Alanine Aminotransferase (ALT/SGPT) 23 0-55 U/L Alkaline Phosphatase 125 40-136 U/L Lactate Dehydrogenase 308 H 125-220 U/L Total Creatine Kinase 73 29-168 U/L Creatine Kinase MB 1.3 <6.6 NG/ML Myoglobin 48.7 10.0-92.0 NG/ML Troponin I < 0.028 <0.028 NG/ML C-Reactive Protein High Sensitivity 11.23 H 0.00-0.50 MG/DL B-Type Natriuretic Peptide 15.6 <100.0 PG/ML Total Protein 8.3 H 6.4-8.2 GM/DL Albumin 4.0 3.2-4.5 GM/DL Amylase Level 31 25-125 U/L Lipase 46 8-78 U/L Procalcitonin 15.85 H <0.10 NG/ML Urine Color YELLOW Urine Clarity CLEAR Urine pH 7.5 5-9 Urine Specific Brothers 1.015 L 1.016-1.022 Urine Protein NEGATIVE NEGATIVE Urine Glucose (UA) 3+ H NEGATIVE Urine Ketones NEGATIVE NEGATIVE Urine Nitrite NEGATIVE NEGATIVE Urine Bilirubin NEGATIVE NEGATIVE Urine Urobilinogen 0.2 < = 1.0 MG/DL Urine Leukocyte Esterase 1+ H NEGATIVE Urine RBC (Auto) TRACE-I H NEGATIVE Urine RBC NONE /HPF Urine WBC 25-50 H /HPF Urine Crystals NONE /LPF Urine Bacteria FEW H /HPF Urine Casts NONE /LPF Urine Mucus NEGATIVE /LPF Urine Culture Indicated CULTURE PENDING Influenza Type A (RT-PCR) Not Detected Not Detecte Influenza Type B (RT-PCR) Not Detected Not Detecte SARS-CoV-2 RNA (RT-PCR) Not Detected Not Detecte Test 10/25/21 01:15 Range/Units Lactic Acid Level 1.79 0.50-2.00 MMOL/L (MATTIE MCDERMOTT MD) Micro Results Microbiology 10/24/21 Blood Culture - Preliminary, Resulted Probable (MATTIE MCDERMOTT MD) Medications Given in ED Current Medications Medications Dose Ordered Sig/Gracie Route Start Time Stop Time Status Last Admin Dose Admin Iohexol 100 ml ONCE ONCE IV 10/25/21 01:15 10/25/21 01:16 DC 10/25/21 01:13 90 ML Sodium Chloride 10 ml NEEDED PRN IV 10/25/21 01:15 10/25/21 02:59 DC 10/25/21 01:13 10 ML Sodium Chloride 100 ml ONCE ONCE IV 10/25/21 01:15 10/25/21 01:16 DC 10/25/21 01:13 80 ML (MATTIE MCDERMOTT MD) Vital Signs/I&O 10/24/21 10/24/21 10/25/21 21:30 23:00 02:01 Temp 36.9 Pulse 118 79 Resp 20 20 B/P (MAP) 137/96 (110) 115/86 Pulse Ox 96 97 O2 Delivery Nasal Cannula Nasal Cannula Room Air (MATTIE MCDERMOTT MD) Vital Signs/I&O Capillary Refill : (JERE AMIN DO) Blood Pressure Mean: 110 Point of Care Testing Finger Stick Blood Glucose: 191 (JERE AMIN DO) Progress Note : Progress Note PPE WORN, COVID TESTING DONE ON ARRIVAL, PT WALKS FROM ER ROOM TO BATHROOM--ARRIVES WITHOUT HOME O2--INITIAL O2 SAT ON ROOM AIR AFTER AMBULATION IS 84%. PLACED ON O2 AT 2L/NC AND O2 SATS QUICKLY UP TO MID 90'S PT IS ANXIOUS TO GO HOME, SHORTLY AFTER ARRIVAL, BUT PT STATES SHE WANTS TO BE CHECKED FOR P.E. NO COMPLAINTS OF CHEST PAIN OR SHORTNESS OF BREATH FOR REMAINDER OF ER STAY THE "SHAKING" STOPPED SHORTLY AFTER ARRIVAL AND DID NOT RETURN PT REFUSES TO STAY IN THE BED, IS UP AND DOWN. PACING IN THE ROOM, SITTING IN CHAIR OR ON BEDSIDE COMMODE, REFUSES TO STAY ON THE BED, EVEN AFTER ADVISING HER MULTIPLE TIMES. HAS OXYGEN TUBING STRETCHED TO IT'S MAXIMUM, SHE REFUSES TO STAY NEAR THE BED WHERE THE OXYGEN RESERVOIR IS. PT CONSTANTLY REMOVING MONITORING DEVICES, ETC. NO DETERIORATION IN PT'S CONDITION DURING ER STAY NO FEVER NO COUGH NO COMPLAINTS OF CHEST PAIN FOR ENTIRE ER STAY PT IS SYMPTOM-FREE AT DISMISSAL ON REVIEWING LAB RESULTS AND DX OF UTI, PT STATES [facility]IPRO WORKS BEST FOR HER AND SHE TOLERATES IT WELL (JERE AMIN DO) Progress Note : Time: 12:15 Progress Note notified by operations research director for [facility] that the radiologist identified a nodule in the RLL (was not seen by [facility]) that will need close follow up. I called the patient and made her aware of the finding. She actually has follow up scheduled with her doctor, Dr Dario Munoz on Wednesday. (MATTIE MCDERMOTT MD) ECG Initial ECG Impression Date: Oct 24, 2021 Initial ECG Impression Time: 21:52 Initial ECG Rate: 129 Initial ECG Rhythm: S.Tach Comment VERY POOR STUDY DUE TO MOTION ARTIFACT (JERE AMIN DO) Diagnostic Imaging Comments CXR--PER RADIOLOGIST REPORT AT 2231 COMPARISON: 10/20/2021. FINDINGS: Left PICC line at the upper SVC, stable. No focal consolidation. No effusion or pneumothorax. Pulmonary venous structures are perhaps mildly distended but the heart size is stable. IMPRESSION: Borderline venous congestion but no tonya edema, pleural fluid or pneumonia. CT CHEST ANGIOGRAM--PER [facility] VIA FAX AT 0154 -NO P.E. -NO AORTIC ABNORMALITY -NO ACUTE PROCESS IN CHEST Reviewed: Reviewed by Me (JERE AMIN DO) Departure Impression Primary Impression: Urinary tract infection Additional Impressions: Chest pain Dyspnea COPD (chronic obstructive pulmonary disease) Diabetes mellitus, type 2 Disposition: 01 HOME, SELF-CARE Condition: Stable Departure-Patient Inst. Decision time for Depature: 02:00 (JERE AMIN DO) Referrals: DARIO MUNOZ MD (PCP/Family) Primary Care Physician Patient Instructions: Urinary Tract Infection, Adult (DC), Chest Pain, Adult ED, Shortness of Breath, Adult ED Add. Discharge Instructions: CONTINUE YOUR REGULAR MEDICATIONS PRESCRIBED LOTS OF CLEAR LIQUIDS TYLENOL AND MOTRIN NEEDED FOR PAIN OR FEVER FOLLOW UP WITH YOUR DR IN 2-3 DAYS FOR FURTHER CARE, RETURN TO ER IF WORSE All discharge instructions reviewed with patient and/or family. Voiced understanding. Scripts Ciprofloxacin HCl (Ciprofloxacin HCl) 500 Mg Tablet 500 MG PO BID, #14 TAB Prov: JERE AMIN DO 10/25/21 Copy Copies To 1: DARIO MUNOZ MD, LISA K DO Oct 25, 2021 01:32 MATTIE MCDERMOTT MD Oct 25, 2021 12:20
[2021-10-25 02:01] VITALS: BP 115/86
[2021-10-25] MEDS ORDERED: CIPR500T5 PO (02:04)
[2021-10-25] MEDS ORDERED: RT--FLUTICASONE/SALMETEROL 113-14 (AIRDUO RespiCLICK) IH SCH (08:00)
--- NOTE | 2021-10-25 11:17 | Diagnostic Imaging Report ---
PROCEDURE: CT angiography of the chest with contrast. TECHNIQUE: Multiple contiguous axial images were obtained through the chest after uneventful bolus administration of intravenous contrast. 3D reconstructed CTA MIP acquisitions were also performed. Auto Exposure Controls were utilized during the CT exam to meet ALARA standards for radiation dose reduction. INDICATION: Pulmonary embolus suspected. Shakiness, chest pain recently seen in urgent care for same symptoms. EXAMINATION: CT angiogram with contrast of the chest from 10/25/2021. COMPARISON: None. FINDINGS: There are no central or proximal segmental pulmonary emboli. There is diffuse atherosclerotic disease throughout the aorta. No dissection or aneurysmal dilatation appreciated. Left central line tip ends in the SVC. There are no pericardial or pleural effusions. Within the superior segment of the right lower lobe, there is a small nodule measuring 1.2 cm in greatest dimension. Remaining lungs appear clear. Visualized upper abdomen demonstrates a large incompletely imaged at least 2 cm stone in the left kidney. There is atrophy of the left renal cortex with a large cystic lesion in the inferior pole incompletely imaged. There is no acute osseous abnormality. Degenerative findings noted in the shoulders and spine. IMPRESSION: 1. No central or proximal segmental pulmonary embolus. 2. Right lower lobe nodule. If there is a known history of carcinoma, PET scan may be warranted. Otherwise this should be followed using the Fleischner Criteria. 3. Other incidental findings, as described above. Report given to Dr. Leal at 11:10 AM 10/25/2021/meg Report added to the ER additional findings report Dictated by: Dictated on workstation # [id number]
== END 2021-10-25 02:58 | disposition home or self-care (01) ==
LOC: EDUNIT# 21:34 → ER 21:35
DX: N39.0 Urinary tract infection, site not specified (principal); J44.9 Chronic obstructive pulmonary disease, unspecified; E11.21 Type 2 diabetes mellitus with diabetic nephropathy; E66.2 Morbid (severe) obesity with alveolar hypoventilation; F17.210 Nicotine dependence, cigarettes, uncomplicated; Z87.442 Personal history of urinary calculi; Z87.448 Personal history of other diseases of urinary system; Z68.42 Body mass index [BMI] 45.0-49.9, adult; Z20.822 Contact with and (suspected) exposure to COVID-19
CPT/HCPCS: 36415; 71045; 71275; 80053; 81000; 82150; 82550; 82553; 82947; 83605; 83615; 83690; 83735; 83874; 83880; 84145; 84484; 85025; 85379; 85610; 85652; 85730; 86141; 87040; 87077; 87088; 87186; 87636; 93005; 93041

== ENCOUNTER 2021-10-28 21:46 | Emergency (ER) | payer MEDICARE, MEDICAID ==
[~2021-10-28] VITALS: Ht 160 cm; Wt 122.0 kg
[2021-10-28] MEDS ORDERED: MUPIROCIN 2% OINT 22 GM (BACTROBAN) TUBE TOP STA (23:40)
[2021-10-28] MEDS ORDERED: CEPHALEXIN 250 MG (KEFLEX) CAP PO ONE (23:45)
[2021-10-28] MEDS ORDERED: FLUCONAZOLE 150 MG TABLET (ED ONLY) PO ONE (23:45)
[2021-10-28] MEDS ORDERED: CEPH500T PO (23:48)
[2021-10-28] MEDS ORDERED: FLUC150T PO (23:48)
--- NOTE | 2021-10-28 23:48 | ED General ---
General Chief Complaint: Skin/Wound Problems Stated Complaint: FISTULA DRAINING Nursing Triage Note: PT AMBULATORY TO ROOM. PT STATES SHE HAS A FISTULA NEAR HER UMBILICAL. PT STATES IT STARTED DRAINING TODAY AROUND NOON. PT HAS BROWN FLUID RUNNING FROM BELLY BUTTON, DOWN LEGS. PT STATES IT NORMALLY DOES NOT DRAIN AND TODAY IT HAS NOT STOPPED Source of Information: Patient Exam Limitations: No Limitations History of Present Illness Date Seen by Provider: Oct 28, 2021 Time Seen by Provider: 23:25 Initial Comments This is 65-year-old woman with a known colonic fistula presents to the emergency room with increased drainage from the fistula and skin irritation. She was prescribed Cipro on October 25 for urinary tract infection from Dr. Dario Munoz's office. She has not started this prescription yet. Patient reports she is getting her PICC line removed tomorrow as it is nonfunctional. She has worked with care providers and wound care in the past 2 fit ostomy bags without any success. Allergies and Home Medications Allergies Coded Allergies: No Known Drug Allergies (Unverified , 11/16/18) Patient Home Medication List Home Medication List Reviewed: Yes Amlodipine Besylate (Amlodipine Besylate) 5 Mg Tablet, 5 MG PO DAILY, (Reported) Entered as Reported by: ROSA WALKER on 03/12/21 1205 Ascorbic Acid (Vitamin C) 500 Mg Tablet, 500 MG PO DAILY, (Reported) Entered as Reported by: ROSA WALKER on 03/12/21 1205 Aspirin (Aspirin EC) 81 Mg Tablet.dr, 81 MG PO DAILY, (Reported) Entered as Reported by: ROSA WALKER on 03/12/21 1205 Atorvastatin Calcium (Atorvastatin Calcium) 40 Mg Tablet, 40 MG PO DAILY, (Reported) Entered as Reported by: KING LOPEZ on 11/16/18 1602 Bupropion HCl (Bupropion HCl Sr) 150 Mg Tablet.er, 150 MG PO DAILY, (Reported) Entered as Reported by: ROSA WALKER on 03/12/21 1205 Cephalexin (Cephalexin) 500 Mg Tablet, 500 MG PO TID Prescribed by: ASHLEIGH NAJERA on 08/28/21 1628 Cephalexin (Cephalexin) 500 Mg Tablet, 500 MG PO QID Prescribed by: ERASTO SORENSEN on 10/28/21 2348 Cholecalciferol (Vitamin D3) (Vitamin D3) 125 Mcg Tablet, 125 MCG PO DAILY, (Reported) Entered as Reported by: TRACY HESS on 09/01/19 1108 Ciprofloxacin HCl (Ciprofloxacin HCl) 500 Mg Tablet, 500 MG PO BID Prescribed by: JERE AMIN on 10/25/21 0204 Cyanocobalamin (Vitamin B-12) (Vitamin B-12) 1,000 Mcg Capsule, 1,000 MCG PO DAILY, (Reported) Entered as Reported by: ROSA WALKER on 03/12/21 1205 Dapagliflozin Propanediol (Farxiga) 10 Mg Tablet, 10 MG PO DAILY, (Reported) Entered as Reported by: ROSA WALKER on 03/12/21 1205 Famotidine (Famotidine) 20 Mg Tablet, 20 MG PO HS, (Reported) Entered as Reported by: ROSA WALKER on 03/12/21 1205 Fish Oil/Dha/Epa (Fish Oil 1,200 mg Fish Oil) 1 Each Capsule, 1 EACH PO DAILY, (Reported) Entered as Reported by: ROSA WALKER on 03/12/21 1205 Fluconazole (Diflucan) 150 Mg Tablet, 150 MG PO UD Prescribed by: ERASTO SORENSEN on 07/05/21 0820 Fluconazole (Diflucan) 150 Mg Tablet, 150 MG PO UD Prescribed by: ERASTO SORENSEN on 10/28/21 2348 Fluoxetine HCl (Fluoxetine HCl) 40 Mg Capsule, 40 MG PO DAILY, (Reported) Entered as Reported by: ROSA WALKER on 03/12/21 1205 Gabapentin (Gabapentin) 600 Mg Tablet, 600 MG PO BID, (Reported) Entered as Reported by: KITTY DAVIDSON on 08/19/20 1202 Gabapentin (Gabapentin) 600 Mg Tablet, 600 MG PO 1200 PRN for PAIN-BREAKTHROUGH, (Reported) Entered as Reported by: ROSA WALKER on 03/12/21 1205 Hydrocodone/Acetaminophen (Hydrocodone-Acetamin 5-325 mg) 1 Each Tablet, 1 TAB PO Q6H PRN for PAIN-BREAKTHROUGH Prescribed by: ERASTO SORENSEN on 07/05/21 0821 Insulin Detemir (Levemir Flextouch) 100 Unit/1 Ml Insuln.pen, 20 UNIT SQ BID PRN for HYPERGLYCEMIA, (Reported) Entered as Reported by: ROSA WALKER on 03/12/21 1232 Levofloxacin (Levofloxacin) 750 Mg Tablet, 750 MG PO DAILY Prescribed by: ERASTO SORENSEN on 07/05/21 0820 Lisinopril (Lisinopril) 20 Mg Tablet, 20 MG PO HS, (Reported) Entered as Reported by: TRACY HESS on 01/09/15 1414 Magnesium Oxide (Magnesium Oxide) 400 Mg Tablet, 400 MG PO DAILY, (Reported) Entered as Reported by: GAEL JENSEN on 01/28/15 1629 Metoprolol Succinate (Metoprolol Succinate) 25 Mg Tab.er.24h, 25 MG PO DAILY, (Reported) Entered as Reported by: ROSA WALKER on 03/12/21 1205 Mupirocin (Mupirocin) 2 % Oint...g., 22 GM TP BID Prescribed by: ERASTO SORENSEN on 10/28/21 2356 Oxybutynin Chloride (Oxybutynin Chloride ER) 10 Mg Tab.er.24, 10 MG PO DAILY, (Reported) Entered as Reported by: ROSA WALKER on 03/12/21 1205 Oxycodone Hcl (Oxyir Tablet) 5 Mg Tab, 5 MG PO Q4H PRN for PAIN-SEVERE (8-10) Prescribed by: ALEIDA LICEA on 03/16/21 1208 Semaglutide (Ozempic) 1 Mg/0.75 Ml Pen.injctr, 1 MG SQ FRI, (Reported) Entered as Reported by: KITTY DAVIDSON on 08/19/20 1202 Zinc (Zinc) 50 Mg Tablet, 50 MG PO DAILY, (Reported) Entered as Reported by: ROSA WALKER on 03/12/21 1205 Review of Systems Review of Systems Constitutional: no symptoms reported EENTM: no symptoms reported Respiratory: no symptoms reported Cardiovascular: no symptoms reported Gastrointestinal: see HPI Genitourinary: no symptoms reported : No Musculoskeletal: no symptoms reported Skin: see HPI Psychiatric/Neurological: No Symptoms Reported Hematologic/Lymphatic: No Symptoms Reported Immunological/Allergic: no symptoms reported Past Udeyzlg-Imbgcv-Ziwwln Hx Patient Social History Tobacco Use?: Yes Tobacco type used: Cigarettes Smoking Status: Current Everyday Smoker Use of E-Cig and/or Vaping dev: No Substance use?: Yes Substance type: Marijuana Substance frequency: Once in a while Alcohol Use?: Yes Alcohol Frequency: Rarely Immunizations Up To Date Tetanus Booster (TDap): More than 5yrs Influenza Vaccine Up-to-Date: Yes; Up-to-Date First/Initial COVID19 Vaccinat: JANUARY 2021 Second COVID19 Vaccination Darwin: FEBRUARY 2021 Third COVID19 Vaccination Date: N/A Seasonal Allergies Seasonal Allergies: No Past Medical History Surgery/Hospitalization HX: has fistula and is on TPN to right chest port that was placed by [facility] Surgeries: Yes Abdominal, Section, Hysterectomy, Oophorectomy, Orthopedic, Tonsillectomy, Tubal Ligation Respiratory: Yes (RESP FAILURE/INTUBATED 11/2018; BIPAP; HOME O2 2L/NC CONT. 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: Hysterectomy, Tubal Ligation, Menopausal Sexually Transmitted Disease: No HIV/AIDS: No Genitourinary: Yes (STAGE 3 KIDNEY FAILURE) Kidney Stones, Renal Failure Gastrointestinal: Yes (Abdominal wall fistula) Abdominal Hernia, Chronic Constipation, Diverticulosis, C-Diff Musculoskeletal: Yes Degenerate Disk Disease, Arthritis, Fibromyalgia, Chronic Back Pain Endocrine: Yes (MORBID OBESITY) Diabetes, Non-Insulin dep HEENT: Yes (GLASSES, DENTURES) Cataract Loss of Vision: Denies Hearing Impairment: Denies Cancer: No Psychosocial: Yes Depression Integumentary: No Blood Disorders: No Adverse Reaction/Blood Tranf: No (N/A) Family Medical History Arthritis 19 FATHER Cardiovascular disease 19 FATHER Completed stroke 19 MOTHER Diabetes mellitus 19 FATHER Hypertension 19 FATHER G8 SISTER Myocardial infarction 19 FATHER Respiratory disorder 19 MOTHER Heart Disease, Diabetes, Hypertension, Lung Disease, Stroke SOCIAL HISTORY: -SMOKES 1 PPD -ETOH-DENIES USE -DRUGS-DAILY MARIJUANA USE PAST SURGICAL HISTORY: -TONSILLECTOMY -BILATERAL TUBAL LIGATION -BILATERAL CATARACTS 2019 -MULTIPLE COLONOSCOPIES--LAST ONE 08/[address] MAE -C-SPINE SURGERY 01/[address] NIETO -COLON RESECTION 2009 FOR DIVERTICULITIS - X 2 -BILATERAL CARPAL TUNNEL RELEASE -HYST/BSO 2005 -VENTRAL HERNIA REPAIRS X 3: VENTRAL HERNIA REPAIR WITH MESH BY DR. ELIZABETH 11/17/2018 --DEVELOPED ABSCESS AND ENTERO-CUTANEOUS FISTULA AND HAD DEBRIDEMENTS DEVELOPED RESPIRATORY FAILURE AND REQUIRED INTUBATION, AND DEVELOPED MULTI-ORGAN FAILURE AND WAS EVENTUALLY DISMISSED 12/24/2018 - PICC LINE PLACEMENT Physical Exam Vital Signs Vital Signs - First Documented 10/28/21 21:50 Temp 36.0 Pulse 101 Resp 22 B/P (MAP) 167/92 (117) Pulse Ox 92 Capillary Refill : Height, Weight, BMI Height: 5'3.00" Weight: 273lbs. 2.0oz. 123.841568iz; 47.00 BMI Method:Stated General Appearance: No Apparent Distress, WD/WN, Obese HEENT: PERRL/EOMI, Normal ENT Inspection Neck: Normal Inspection Respiratory: Lungs Clear, Normal Breath Sounds, No Accessory Muscle Use Cardiovascular: Regular Rate, Rhythm, No Murmur Gastrointestinal: Soft; No Distended; Other (Fistula is leaking stool and fluid. There is notable erythema and tenderness surrounding the umbilicus and fistula site.) Extremity: Normal Inspection Neurologic/Psychiatric: Alert, Oriented x3, No Motor/Sensory Deficits, Normal Mood/Affect Skin: Normal Color, Warm/Dry, Rash (Slightly raised tender erythema surrounding the umbilicus and fistula) Procedures/Interventions Date of ETT Placement: Nov 20, 2018 Time of ETT Placement: 1505 Progress/Results/Core Measures Suspected Sepsis SIRS Temperature: Pulse: 101 Respiratory Rate: 22 Blood Pressure 167 /92 Mean: 117 Results/Orders My Orders Orders - ERASTO LERNER MD Fluconazole Tablet (Ed Only) (Diflucan T (10/28/21 23:45) Cephalexin Capsule (Keflex Capsule) (10/28/21 23:45) Mupirocin Ointment (Bactroban Ointment (10/28/21 23:40) Medications Given in ED Current Medications Medications Dose Ordered Sig/Gracie Route Start Time Stop Time Status Last Admin Dose Admin Cephalexin HCl 500 mg ONCE ONCE PO 10/28/21 23:45 10/28/21 23:46 DC 10/28/21 23:51 500 MG Fluconazole 150 mg ONCE ONCE PO 10/28/21 23:45 10/28/21 23:46 DC 10/28/21 23:52 150 MG Vital Signs/I&O 10/28/21 10/29/21 21:50 00:10 Temp 36.0 Pulse 101 86 Resp 19 B/P (MAP) 167/92 (117) 150/84 Pulse Ox 92 94 Capillary Refill : Blood Pressure Mean: 117 Progress Note : Progress Note Skin was dried and Bactroban ointment applied. Bulky dressing applied over the fistula to absorb drainage and abdominal binder fitted over the top. See discharge instructions for further discussion. Departure Impression Primary Impression: Colonic fistula Additional Impression: Cellulitis Qualified Codes: L03.311 - Cellulitis of abdominal wall Disposition: HOME, SELF-CARE Condition: Improved Departure-Patient Inst. Referrals: DARIO MUNOZ MD (PCP/Family) Primary Care Physician Patient Instructions: Cellulitis (Skin Infection), Adult ED Add. Discharge Instructions: You appear to have some cellulitis and/or yeast infection around your fistula. Please take your antibiotic and Diflucan as prescribed to treat this area. Please also dry the area and apply Bactroban (mupirocin) ointment to affected skin twice daily. Bactroban ointment has antibacterial and antifungal properties. Please contact Dr. Munoz's office in the morning and have them review urine culture results from your recent urinalysis. Based on culture results, have her office recommend either the Cipro prescribed to you on October 25 or the Keflex (cephalexin) prescribed from the ER. Either would be acceptable for treating the skin, but 1 may be better than the other for the urinary tract infection based on culture results. Apply bulky absorbent dressings around the fistula and change often to help keep the skin dry. You may use the abdominal binder provided to hold these dressings firmly to the abdominal wall. Observe a clear liquid diet for at least 48 hours and then follow dietary recommendations as previously directed by Dr. Mae. Please follow-up with Dr. Mae within 1 week. Return to the ER if you have worsening symptoms, especially if you develop fever, rapidly spreading redness, escalating pain, etc. Call with questions or concerns. All discharge instructions reviewed with patient and/or family. Voiced understanding. Scripts Mupirocin (Mupirocin) 2 % Oint...g. 22 GM TP BID, #1 EA Prov: ERASTO LERNER MD 7/19/22 Fluconazole (Diflucan) 150 Mg Tablet 150 MG PO UD, #3 TAB Take every third day on 10/31, 11/03, and 11/06. Prov: ERASTO LERNER MD 10/28/21 Cephalexin (Cephalexin) 500 Mg Tablet 500 MG PO QID, #28 TAB Prov: ERASTO LERNER MD 10/28/21 Copy Copies To 1: TOMAS MAE DO Copies To 2: DARIO MUNOZ MD, JOSHUA T MD Oct 28, 2021 23:48
[2021-10-28] MEDS ORDERED: MUPI22OI2 TP (23:56)
[2021-10-29 00:10] VITALS: BP 150/84
== END 2021-10-29 00:13 | disposition home or self-care (01) ==
LOC: EDUNIT# 21:46 → ER 21:48
DX: K63.2 Fistula of intestine (principal); L03.311 Cellulitis of abdominal wall; E66.2 Morbid (severe) obesity with alveolar hypoventilation; F17.210 Nicotine dependence, cigarettes, uncomplicated; Z68.42 Body mass index [BMI] 45.0-49.9, adult

== ENCOUNTER 2021-10-29 12:44 | Outpatient (RCR) | payer MEDICARE, MEDICAID ==
[2021-10-14 11:38] LABS: BASOPHILS % (AUTO) 0 % (0-10); EOSINOPHILS # (AUTO) 0.1 10^3/uL (0.0-0.3); EOSINOPHILS % (AUTO) 2 % (0-10); HEMATOCRIT 38 % (35-52); HEMOGLOBIN 11.8 g/dL (11.5-16.0); LYMPHOCYTES # (AUTO) 1.5 10^3/uL (1.0-4.0); LYMPHOCYTES % (AUTO) 21 % (12-44); MEAN CORPUSCULAR HEMOGLOBIN 26 pg (25-34); MEAN CORPUSCULAR HGB CONC 31 g/dL (32-36); MEAN CORPUSCULAR VOLUME 84 fL (80-99); MEAN PLATELET VOLUME 9.5 fL (9.0-12.2); MONOCYTES # (AUTO) 0.7 10^3/uL (0.0-1.0); MONOCYTES % (AUTO) 9 % (0-12); NEUTROPHILS # (AUTO) 4.7 10^3/uL (1.8-7.8); NEUTROPHILS % (AUTO) 67 % (42-75); PLATELET COUNT 197 10^3/uL (130-400)
[2021-10-14 11:45] VITALS: BP 135/75
[2021-10-14 11:55] LABS: ALBUMIN 3.9 GM/DL (3.2-4.5); BILIRUBIN,TOTAL 0.6 MG/DL (0.1-1.0); CALCIUM 9.2 MG/DL (8.5-10.1); CREATININE SERUM 1.06 MG/DL (0.60-1.30); PHOSPHORUS 3.3 MG/DL (2.3-4.7); POTASSIUM 3.8 MMOL/L (3.6-5.0); TOTAL PROTEIN 7.5 GM/DL (6.4-8.2)
[2021-10-20 10:36] LABS: BASOPHILS % (AUTO) 1 % (0-10); EOSINOPHILS # (AUTO) 0.2 10^3/uL (0.0-0.3); EOSINOPHILS % (AUTO) 2 % (0-10); HEMATOCRIT 35 % (35-52); HEMOGLOBIN 10.9 g/dL (11.5-16.0); LYMPHOCYTES # (AUTO) 1.5 10^3/uL (1.0-4.0); LYMPHOCYTES % (AUTO) 19 % (12-44); MEAN CORPUSCULAR HEMOGLOBIN 26 pg (25-34); MEAN CORPUSCULAR HGB CONC 31 g/dL (32-36); MEAN CORPUSCULAR VOLUME 84 fL (80-99); MEAN PLATELET VOLUME 9.3 fL (9.0-12.2); MONOCYTES # (AUTO) 0.7 10^3/uL (0.0-1.0); MONOCYTES % (AUTO) 8 % (0-12); NEUTROPHILS # (AUTO) 5.6 10^3/uL (1.8-7.8); NEUTROPHILS % (AUTO) 70 % (42-75); PLATELET COUNT 183 10^3/uL (130-400)
[2021-10-20 10:56] LABS: ALBUMIN 3.6 GM/DL (3.2-4.5); POTASSIUM 3.8 MMOL/L (3.6-5.0)
[2021-10-20 10:57] LABS: CALCIUM 8.6 MG/DL (8.5-10.1)
[2021-10-20 10:58] LABS: TOTAL PROTEIN 6.9 GM/DL (6.4-8.2)
[2021-10-20 11:00] LABS: BILIRUBIN,TOTAL 0.6 MG/DL (0.1-1.0)
[2021-10-20 11:01] LABS: PHOSPHORUS 3.2 MG/DL (2.3-4.7)
[2021-10-20 11:02] LABS: CREATININE SERUM 0.9 MG/DL (0.60-1.30)
[2021-10-20 11:05] LABS: MAGNESIUM 1.9 MG/DL (1.6-2.4)
[~2021-10-29 12:44] MED LIST changes: +MUPI22OI2 TP
== END 2021-10-29 12:50 | disposition home or self-care (01) ==
LOC: SDC 12:44
PROVIDERS: ATTEND Internal Medicine
DX: Z45.2 Encounter for adjustment and management of vascular access device (principal)
CPT/HCPCS: 80053; 83735; 84100; 84134; 84478; 85025; G0463; 36415; 99211

== ENCOUNTER 2021-10-29 13:15 | Outpatient (CLI) | payer MEDICARE, MEDICAID ==
[~2021-10-29] VITALS: Wt 122.0 kg
[2021-10-29 12:40] VITALS: BP 130/75
== END 2021-10-29 14:10 | disposition home or self-care (01) ==
LOC: SDC 13:15
PROVIDERS: ATTEND Surgery
DX: Z45.2 Encounter for adjustment and management of vascular access device (principal)
CPT/HCPCS: 87040; 87070; G0463; 99211

== ENCOUNTER → 2022-06-24 | Outpatient (CLI) | payer MEDICARE, MEDICAID ==
[~2022-06-24] MED LIST changes: -CHOL4PAC14 PO; +CHOL4POW4 PO; +LEVO750T PO; -LEVO750T39 PO; -NSTR15C TP; -NYST15CR TOP; -NYST15CR TP; +NYST15CR35 TOP; +NYST15CR35 TP; +NYST15CR36 TP; -POTA10CA43 PO; +POTA10CA44 PO
== END ==
LOC: CARD 09:10
PROVIDERS: ATTEND Pediatrics
DX: I51.7 Cardiomegaly (principal); I73.9 Peripheral vascular disease, unspecified
CPT/HCPCS: 93306

== ENCOUNTER 2022-07-12 14:12 | Emergency (ER) | payer MEDICARE, MEDICAID ==
[~2022-07-12] VITALS: Ht 160 cm; Wt 123.0 kg
--- NOTE | 2022-07-12 14:38 | ED Upper Extremity ---
General Chief Complaint: Upper Extremity Stated Complaint: R SHOULDER PAIN Nursing Triage Note: pt has arthritis in right shoulder for years. pt recently prescribed buprenorphine for pain but pt hasn't started taking it yet. pt states she can't sleep or eat d/t the pain being so bad. Source: patient Exam Limitations: no limitations History of Present Illness Date Seen by Provider: Jul 12, 2022 Time Seen by Provider: 14:21 Initial Comments 66-year-old female presents to the ED with complaints of right shoulder pain. States that she has a history of osteoarthritis, is supposed to get a shoulder replacement, but she has to lose weight first. She sees orthopedics in [place]. States she came in today because she cannot get any rest, she cannot sleep. She started having muscle spasms in her lower arm. She was recently prescribed buprenorphine pain, but she has not started taking it. States that she wanted to come here first to get the pain reduced, and then she will start taking it. She reports chronic intermittent numbness and tingling in her last 2-3 fingers. States there is no change in this. She reports she also has numbness in her left hand at times. She reports chronic back pain as well, no pain with palpation of C-spine and thoracic spine. She denies fevers, chest pain, shortness of breath, abdominal pain, nausea, vomiting. Allergies and Home Medications Allergies Coded Allergies: No Known Drug Allergies (Unverified , 11/16/18) Patient Home Medication List Home Medication List Reviewed: Yes Amlodipine Besylate (Amlodipine Besylate) 5 Mg Tablet, 5 MG PO DAILY, (Reported) Entered as Reported by: ROSA WALKER on 03/12/21 1205 Ascorbic Acid (Vitamin C) 500 Mg Tablet, 500 MG PO DAILY, (Reported) Entered as Reported by: ROSA WALKER on 03/12/21 1205 Aspirin (Aspirin EC) 81 Mg Tablet.dr, 81 MG PO DAILY, (Reported) Entered as Reported by: ROSA WALKER on 03/12/21 1205 Atorvastatin Calcium (Atorvastatin Calcium) 40 Mg Tablet, 40 MG PO DAILY, (Reported) Entered as Reported by: KING LOPEZ on 11/16/18 1602 Bupropion HCl (Bupropion HCl Sr) 150 Mg Tablet.er, 150 MG PO DAILY, (Reported) Entered as Reported by: ROSA WALKER on 03/12/21 1205 Cephalexin (Cephalexin) 500 Mg Tablet, 500 MG PO TID Prescribed by: ASHLEIGH NAJERA on 08/28/21 1628 Cephalexin (Cephalexin) 500 Mg Tablet, 500 MG PO QID Prescribed by: ERASTO SORENSEN on 10/28/21 2348 Cholecalciferol (Vitamin D3) (Vitamin D3) 125 Mcg Tablet, 125 MCG PO DAILY, (Reported) Entered as Reported by: TRACY HESS on 09/01/19 1108 Ciprofloxacin HCl (Ciprofloxacin HCl) 500 Mg Tablet, 500 MG PO BID Prescribed by: JERE AMIN on 10/25/21 0204 Cyanocobalamin (Vitamin B-12) (Vitamin B-12) 1,000 Mcg Capsule, 1,000 MCG PO DAILY, (Reported) Entered as Reported by: ROSA WALKER on 03/12/21 120 Dapagliflozin Propanediol (Farxiga) 10 Mg Tablet, 10 MG PO DAILY, (Reported) Entered as Reported by: ROSA WALKER on 03/12/21 120 Famotidine (Famotidine) 20 Mg Tablet, 20 MG PO HS, (Reported) Entered as Reported by: ROSA WALKER on 03/12/21 120 Fish Oil/Dha/Epa (Fish Oil 1,200 mg Fish Oil) 1 Each Capsule, 1 EACH PO DAILY, (Reported) Entered as Reported by: ROSA WALKER on 03/12/21 1205 Fluconazole (Diflucan) 150 Mg Tablet, 150 MG PO UD Prescribed by: ERASTO SORENSEN on 07/05/21 0820 Fluconazole (Diflucan) 150 Mg Tablet, 150 MG PO UD Prescribed by: ERASTO SORENSEN on 10/28/21 2348 Fluoxetine HCl (Fluoxetine HCl) 40 Mg Capsule, 40 MG PO DAILY, (Reported) Entered as Reported by: ROSA WALKER on 03/12/21 120 Gabapentin (Gabapentin) 600 Mg Tablet, 600 MG PO BID, (Reported) Entered as Reported by: KITTY DAVIDSON on 08/19/20 1202 Gabapentin (Gabapentin) 600 Mg Tablet, 600 MG PO 1200 PRN for PAIN-BREAKTHROUGH, (Reported) Entered as Reported by: ROSA WALKER on 03/12/21 1205 Hydrocodone/Acetaminophen (Hydrocodone-Acetamin 5-325 mg) 1 Each Tablet, 1 TAB PO Q6H PRN for PAIN-BREAKTHROUGH Prescribed by: ERASTO SORENSEN on 07/05/21 0821 Insulin Detemir (Levemir Flextouch) 100 Unit/1 Ml Insuln.pen, 20 UNIT SQ BID PRN for HYPERGLYCEMIA, (Reported) Entered as Reported by: ROSA WALKER on 03/12/21 1232 Levofloxacin (Levofloxacin) 750 Mg Tablet, 750 MG PO DAILY Prescribed by: ERASTO SORENSEN on 07/05/21 0820 Lisinopril (Lisinopril) 20 Mg Tablet, 20 MG PO HS, (Reported) Entered as Reported by: TRACY HESS on 01/09/15 1414 Magnesium Oxide (Magnesium Oxide) 400 Mg Tablet, 400 MG PO DAILY, (Reported) Entered as Reported by: GAEL JENSEN on 01/28/15 1629 Metoprolol Succinate (Metoprolol Succinate) 25 Mg Tab.er.24h, 25 MG PO DAILY, (Reported) Entered as Reported by: ROSA WALKER on 03/12/21 1205 Mupirocin (Mupirocin) 2 % Oint...g., 22 GM TP BID Prescribed by: ERASTO SORENSEN on 10/28/21 2356 Oxybutynin Chloride (Oxybutynin Chloride ER) 10 Mg Tab.er.24, 10 MG PO DAILY, (Reported) Entered as Reported by: ROSA WALKER on 03/12/21 1205 Oxycodone Hcl (Oxyir Tablet) 5 Mg Tab, 5 MG PO Q4H PRN for PAIN-SEVERE (8-10) Prescribed by: ALEIDA LICEA on 03/16/21 1208 Semaglutide (Ozempic) 1 Mg/0.75 Ml Pen.injctr, 1 MG SQ FRI, (Reported) Entered as Reported by: KITTY DAVIDSON on 08/19/20 1202 Zinc (Zinc) 50 Mg Tablet, 50 MG PO DAILY, (Reported) Entered as Reported by: ROSA WALKER on 03/12/21 1205 Review of Systems Constitutional: see HPI Past Lvlpaof-Yvgsij-Yyoavm Hx Patient Social History Tobacco Use?: Yes Tobacco type used: Cigarettes Smoking Status: Current Everyday Smoker Substance use?: No Alcohol Use?: No Pt feels they are or have been: No Immunizations Up To Date Tetanus Booster (TDap): More than 5yrs Influenza Vaccine Up-to-Date: Yes; Up-to-Date First/Initial COVID19 Vaccinat: JANUARY 2021 Second COVID19 Vaccination Darwin: FEBRUARY 2021 Third COVID19 Vaccination Date: N/A Seasonal Allergies Seasonal Allergies: No Past Medical History Surgery/Hospitalization HX: has fistula and is on TPN to right chest port that was placed by [facility] Surgeries: Yes Abdominal, Section, Hysterectomy, Oophorectomy, Orthopedic, Tons illectomy, Tubal Ligation Respiratory: Yes (RESP FAILURE/INTUBATED 11/2018; BIPAP; HOME O2 2L/NC CONT. 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: Hysterectomy, Tubal Ligation, Menopausal Sexually Transmitted Disease: No HIV/AIDS: No Genitourinary: Yes (STAGE 3 KIDNEY FAILURE) Kidney Stones, Renal Failure Gastrointestinal: Yes (Abdominal wall fistula) Abdominal Hernia, Chronic Constipation, Diverticulosis, C-Diff Musculoskeletal: Yes Degenerate Disk Disease, Arthritis, Fibromyalgia, Chronic Back Pain Endocrine: Yes (MORBID OBESITY) Diabetes, Non-Insulin dep HEENT: Yes (GLASSES, DENTURES) Cataract Loss of Vision: Denies Hearing Impairment: Denies Cancer: No Psychosocial: Yes Depression Integumentary: No Blood Disorders: No Adverse Reaction/Blood Tranf: No (N/A) Family Medical History Arthritis 19 FATHER Cardiovascular disease 19 FATHER Completed stroke 19 MOTHER Diabetes mellitus 19 FATHER Hypertension 19 FATHER G8 SISTER Myocardial infarction 19 FATHER Respiratory disorder 19 MOTHER Heart Disease, Diabetes, Hypertension, Lung Disease, Stroke SOCIAL HISTORY: -SMOKES 1 PPD -ETOH-DENIES USE -DRUGS-DAILY MARIJUANA USE PAST SURGICAL HISTORY: -TONSILLECTOMY -BILATERAL TUBAL LIGATION -BILATERAL CATARACTS 2019 -MULTIPLE COLONOSCOPIES--LAST ONE 08/[address] MAE -C-SPINE SURGERY 01/[address] NIETO -COLON RESECTION 2009 FOR DIVERTICULITIS - X 2 -BILATERAL CARPAL TUNNEL RELEASE -HYST/BSO 2005 -VENTRAL HERNIA REPAIRS X 3: VENTRAL HERNIA REPAIR WITH MESH BY DR. ELIZABETH 11/17/2018 --DEVELOPED ABSCESS AND ENTERO-CUTANEOUS FISTULA AND HAD DEBRIDEMENTS DEVELOPED RESPIRATORY FAILURE AND REQUIRED INTUBATION, AND DEVELOPED MULTI-ORGAN FAILURE AND WAS EVENTUALLY DISMISSED 12/24/2018 - PICC LINE PLACEMENT Physical Exam Vital Signs Vital Signs - First Documented 07/12/22 14:17 Temp 36.8 Pulse 63 Resp 20 B/P (MAP) 146/94 (111) Pulse Ox 90 O2 Delivery Room Air Capillary Refill : Height, Weight, BMI Height: 5'3.00" Weight: 273lbs. 2.0oz. 123.305708hl; 48.00 BMI Method:Stated General Appearance: WD/WN, no apparent distress Neck: supple, normal inspection Cardiovascular: normal peripheral pulses (Normal right radial pulse), regular rate, rhythm, no edema, no gallop, no JVD, no murmur Respiratory: lungs clear, normal breath sounds, no respiratory distress, no accessory muscle use Back: normal inspection, no vertebral tenderness Shoulder: normal inspection, non-tender, no evidence of injury, limited ROM Elbow/Forearm: normal inspection, non-tender, no evidence of injury, normal ROM Wrist: Yes normal inspection, Yes non-tender, Yes no evidence of injury, Yes normal ROM Hand: normal inspection, non-tender, no evidence of injury, normal ROM, Left Neurologic/Psychiatric: alert, normal mood/affect Skin: normal color, warm/dry Procedures/Interventions Date of ETT Placement: Nov 20, 2018 Time of ETT Placement: 1505 Progress/Results/Core Measures Results/Orders My Orders Orders - IRIS MARIE APRN Ketorolac Injection (Toradol Injection) (07/12/22 14:45) Orphenadrine Inj (Ed Only) (Norflex Inje (07/12/22 14:45) Medications Given in ED Vital Signs/I&O Blood Pressure Mean: 111 Progress Progress Note : Time: 14:40 Progress Note Patient seen and evaluated, resting comfortably in recliner, no acute distress. Based on exam and symptoms, concern for right shoulder osteoarthritis. We will treat with Toradol and Norflex. 1342 patient reevaluated. Patient states the pain has not improved. Patient informed that she needs to take her prescribed medications. She states she will try. Discharge instructions and return precautions provided. Departure Impression Primary Impression: Osteoarthritis Disposition: 01 HOME, SELF-CARE Condition: Stable Departure-Patient Inst. Decision time for Depature: 15:43 Referrals: DARIO MUNOZ MD (PCP/Family) Primary Care Physician Patient Instructions: Osteoarthritis (DC) Add. Discharge Instructions: Take your buprenorphine as prescribed. Follow-up with your primary care provider or your orthopedic doctor. Return for inability to use arm, increased numbness or tingling in hand or arm, or any other new, concerning, or worse symptoms. All discharge instructions reviewed with patient and/or family. Voiced understanding. IRIS MARIE [employer]PLANE REFUELER Jul 12, 2022 14:38
[2022-07-12] MEDS ORDERED: ORPHENADRINE 60 MG/2 ML (NORFLEX) AMP (ED ONLY) IM ONE (14:45)
[2022-07-12] MEDS ORDERED: KETOROLAC 60 MG/2 ML VIAL IM ONE (14:45)
[2022-07-12 15:51] VITALS: BP 130/88
== END 2022-07-12 15:51 | disposition home or self-care (01) ==
LOC: EDUNIT# 14:12 → ER 14:13
DX: M19.011 Primary osteoarthritis, right shoulder (principal); E66.01 Morbid (severe) obesity due to excess calories; F17.210 Nicotine dependence, cigarettes, uncomplicated; Z68.42 Body mass index [BMI] 45.0-49.9, adult
CPT/HCPCS: 99284

== ENCOUNTER 2022-07-28 17:20 | Emergency (ER) | payer MEDICARE, MEDICAID ==
[~2022-07-28] VITALS: Ht 160 cm; Wt 123.0 kg
[~2022-07-28 17:20] MED LIST changes: -INSU100I29 SQ; +INSU100I30 SQ
--- NOTE | 2022-07-28 18:13 | ED Lower Extremity ---
General Chief Complaint: Lower Extremity Stated Complaint: RIGHT KNEE PAIN Nursing Triage Note: PT STATES FALLING IN THE BATHROOM 3 DAYS AGO, CC OF RT KNEE PAIN, DENIES ANY OTHER INJURIES Source: patient Exam Limitations: no limitations History of Present Illness Date Seen by Provider: Jul 28, 2022 Time Seen by Provider: 18:10 Initial Comments Patient is a 66-year-old female presents ED with right knee pain. Patient states 3 days ago she is slipped in her bathroom. She fell backwards onto her toilet. She states she broke the toilet. She twisted her right knee during this fall. She states she has been walking on her right knee with some mild pain and discomfort. She reports taking pain medication at home. Patient states pain became worse today difficulty standing and bear weight. Denies any swelling or bruising. Denies history of previous fracture or previous knee replacement. Denies any distal numbness and tingling, laxity. She does report that the right knee feels like it wants to give out. Denies fever, chills, chest pain, shortness of breath, cough. Allergies and Home Medications Allergies Coded Allergies: No Known Drug Allergies (Unverified , 11/16/18) Patient Home Medication List Home Medication List Reviewed: Yes Amlodipine Besylate (Amlodipine Besylate) 5 Mg Tablet, 5 MG PO DAILY, (Reported) Entered as Reported by: ROSA WALKER on 03/12/21 1205 Ascorbic Acid (Vitamin C) 500 Mg Tablet, 500 MG PO DAILY, (Reported) Entered as Reported by: ROSA WALKER on 03/12/21 1205 Aspirin (Aspirin EC) 81 Mg Tablet.dr, 81 MG PO DAILY, (Reported) Entered as Reported by: ROSA WALKER on 03/12/21 1205 Atorvastatin Calcium (Atorvastatin Calcium) 40 Mg Tablet, 40 MG PO DAILY, (Reported) Entered as Reported by: KING LOPEZ on 11/16/18 1602 Bupropion HCl (Bupropion HCl Sr) 150 Mg Tablet.er, 150 MG PO DAILY, (Reported) Entered as Reported by: ROSA WALKER on 03/12/21 1205 Cephalexin (Cephalexin) 500 Mg Tablet, 500 MG PO TID Prescribed by: ASHLEIGH NAJERA on 08/28/21 1628 Cephalexin (Cephalexin) 500 Mg Tablet, 500 MG PO QID Prescribed by: ERASTO SORENSEN on 10/28/21 2348 Cholecalciferol (Vitamin D3) (Vitamin D3) 125 Mcg Tablet, 125 MCG PO DAILY, (Reported) Entered as Reported by: TRACY HESS on 09/01/19 1108 Ciprofloxacin HCl (Ciprofloxacin HCl) 500 Mg Tablet, 500 MG PO BID Prescribed by: JERE AMIN on 10/25/21 0204 Cyanocobalamin (Vitamin B-12) (Vitamin B-12) 1,000 Mcg Capsule, 1,000 MCG PO D LOGAN, (Reported) Entered as Reported by: ROSA WALKER on 03/12/21 120 Dapagliflozin Propanediol (Farxiga) 10 Mg Tablet, 10 MG PO DAILY, (Reported) Entered as Reported by: ROSA WALKER on 03/12/21 120 Famotidine (Famotidine) 20 Mg Tablet, 20 MG PO HS, (Reported) Entered as Reported by: ROSA WALKER on 03/12/21 120 Fish Oil/Dha/Epa (Fish Oil 1,200 mg Fish Oil) 1 Each Capsule, 1 EACH PO DAILY, (Reported) Entered as Reported by: ROSA WALKER on 03/12/21 120 Fluconazole (Diflucan) 150 Mg Tablet, 150 MG PO UD Prescribed by: ERASTO SORENSEN on 07/05/21 0820 Fluconazole (Diflucan) 150 Mg Tablet, 150 MG PO UD Prescribed by: ERASTO SORENSEN on 10/28/21 234 Fluoxetine HCl (Fluoxetine HCl) 40 Mg Capsule, 40 MG PO DAILY, (Reported) Entered as Reported by: ROSA WALKER on 03/12/21 120 Gabapentin (Gabapentin) 600 Mg Tablet, 600 MG PO BID, (Reported) Entered as Reported by: KITTY DAVIDSON on 08/19/20 1202 Gabapentin (Gabapentin) 600 Mg Tablet, 600 MG PO 1200 PRN for PAIN-BREAKTHROUGH, (Reported) Entered as Reported by: ROSA WALKER on 03/12/21 120 Hydrocodone/Acetaminophen (Hydrocodone-Acetamin 5-325 mg) 1 Each Tablet, 1 TAB PO Q6H PRN for PAIN-BREAKTHROUGH Prescribed by: ERASTO SORENSEN on 07/05/21 0821 Insulin Detemir (Levemir Flextouch) 100 Unit/1 Ml Insuln.pen, 20 UNIT SQ BID PRN for HYPERGLYCEMIA, (Reported) Entered as Reported by: ROSA WALKER on 03/12/21 1232 Levofloxacin (Levofloxacin) 750 Mg Tablet, 750 MG PO DAILY Prescribed by: ERASTO SORENSEN on 07/05/21 0820 Lisinopril (Lisinopril) 20 Mg Tablet, 20 MG PO HS, (Reported) Entered as Reported by: TRACY HESS on 01/09/15 1414 Magnesium Oxide (Magnesium Oxide) 400 Mg Tablet, 400 MG PO DAILY, (Reported) Entered as Reported by: GAEL JENSEN on 01/28/15 1629 Metoprolol Succinate (Metoprolol Succinate) 25 Mg Tab.er.24h, 25 MG PO DAILY, (Reported) Entered as Reported by: ROSA WALKER on 03/12/21 1205 Mupirocin (Mupirocin) 2 % Oint...g., 22 GM TP BID Prescribed by: ERASTO SORENSEN on 10/28/21 2356 Oxybutynin Chloride (Oxybutynin Chloride ER) 10 Mg Tab.er.24, 10 MG PO DAILY, (Reported) Entered as Reported by: ROSA WALKER on 03/12/21 1205 Oxycodone Hcl (Oxyir Tablet) 5 Mg Tab, 5 MG PO Q4H PRN for PAIN-SEVERE (8-10) Prescribed by: ALEIDA LICEA on 03/16/21 1208 Semaglutide (Ozempic) 1 Mg/0.75 Ml Pen.injctr, 1 MG SQ FRI, (Reported) Entered as Reported by: KITTY DAVIDSON on 08/19/20 1202 Zinc (Zinc) 50 Mg Tablet, 50 MG PO DAILY, (Reported) Entered as Reported by: ROSA WALKER on 03/12/21 1205 Review of Systems Constitutional: No chills, No diaphoresis, No malaise, No weakness EENTM: No ear pain, No blurred vision Respiratory: No cough, No short of breath, No stridor, No wheezing Cardiovascular: No chest pain, No edema Gastrointestinal: No abdominal pain, No diarrhea, No nausea, No vomiting Musculoskeletal: No back pain; joint swelling; No muscle pain, No muscle stiff ness Skin: No change in color, No change in hair/nails All Other Systems Reviewed Negative Unless Noted: Yes Past Zsebewf-Tfkeww-Yugumg Hx Patient Social History Tobacco Use?: Yes Smoking Status: Current Everyday Smoker Substance use?: Yes Substance type: Marijuana Alcohol Use?: No Immunizations Up To Date Tetanus Booster (TDap): More than 5yrs First/Initial COVID19 Vaccinat: JANUARY 2021 Second COVID19 Vaccination Darwin: FEBRUARY 2021 Third COVID19 Vaccination Date: N/A Seasonal Allergies Seasonal Allergies: No Past Medical History Surgery/Hospitalization HX: has fistula at umbilicus, copd,diabetic type II, htn, several surgeries Surgeries: Yes Abdominal, Section, Hysterectomy, Oophorectomy, Orthopedic, Tonsillectomy, Tubal Ligation Respiratory: Yes (RESP FAILURE/INTUBATED 11/2018; BIPAP; HOME O2 2L/NC CONT. 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, Tubal Ligation, Menopausal Sexually Transmitted Disease: No HIV/AIDS: No Genitourinary: Yes (STAGE 3 KIDNEY FAILURE) Kidney Stones, Renal Failure Gastrointestinal: Yes (Abdominal wall fistula) Abdominal Hernia, Chronic Constipation, Diverticulosis, C-Diff Musculoskeletal: Yes Degenerate Disk Disease, Arthritis, Fibromyalgia, Chronic Back Pain Endocrine: Yes (MORBID OBESITY) Diabetes, Non-Insulin dep HEENT: Yes (GLASSES, DENTURES) Cataract Loss of Vision: Denies Hearing Impairment: Denies Cancer: No Psychosocial: Yes Depression Integumentary: No Blood Disorders: No Adverse Reaction/Blood Tranf: No (N/A) Family Medical History Arthritis 19 FATHER Cardiovascular disease 19 FATHER Completed stroke 19 MOTHER Diabetes mellitus 19 FATHER Hypertension 19 FATHER G8 SISTER Myocardial infarction 19 FATHER Respiratory disorder 19 MOTHER Heart Disease, Diabetes, Hypertension, Lung Disease, Stroke SOCIAL HISTORY: -SMOKES 1 PPD -ETOH-DENIES USE -DRUGS-DAILY MARIJUANA USE PAST SURGICAL HISTORY: -TONSILLECTOMY -BILATERAL TUBAL LIGATION -BILATERAL CATARACTS 2019 -MULTIPLE COLONOSCOPIES--LAST ONE 08/[address] MAE -C-SPINE SURGERY 01/[address] NIETO -COLON RESECTION 2009 FOR DIVERTICULITIS - X 2 -BILATERAL CARPAL TUNNEL RELEASE -HYST/BSO 2005 -VENTRAL HERNIA REPAIRS X 3: VENTRAL HERNIA REPAIR WITH MESH BY DR. ELIZABETH 11/17/2018 --DEVELOPED ABSCESS AND ENTERO-CUTANEOUS FISTULA AND HAD DEBRIDEMENTS DEVELOPED RESPIRATORY FAILURE AND REQUIRED INTUBATION, AND DEVELOPED MULTI-ORGAN FAILURE AND WAS EVENTUALLY DISMISSED 12/24/2018 - PICC LINE PLACEMENT Physical Exam Vital Signs Vital Signs - First Documented 07/28/22 17:52 Temp 36.8 Pulse 92 Resp 20 B/P (MAP) 106/78 (87) Pulse Ox 91 O2 Delivery Room Air Capillary Refill : Less Than 3 Seconds Height, Weight, BMI Height: 5'3.00" Weight: 273lbs. 2.0oz. 123.426986fr; 48.00 BMI Method:Stated General Appearance: WD/WN, no apparent distress HEENT: PERRL/EOMI, normal ENT inspection, TMs normal, pharynx normal Neck: non-tender, full range of motion, supple Cardiovascular: regular rate, rhythm, no edema, no gallop, no JVD Respiratory: chest non-tender, lungs clear, normal breath sounds, no respiratory distress Gastrointestinal: normal bowel sounds, non tender, soft, no organomegaly Knees: right knee soft tissue tenderness (Right medial knee tenderness. Flexion 9 degrees full extension. No laxity pain with valgus or varus stress. Negative anterior posterior drawer test. 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, no motor/sensory deficits, alert, normal mood/affect, oriented x 3 Skin: normal color, warm/dry Procedures/Interventions Date of ETT Placement: Nov 20, 2018 Time of ETT Placement: 1505 Progress/Results/Core Measures Results/Orders My Orders Orders - HAMZAH HE Knee, Right, 3 Views (07/28/22 18:09) Hydrocodone/Apap 5/325 Tablet (Lortab 5 (07/28/22 18:15) Medications Given in ED Current Medications Medications Dose Ordered Sig/Gracie Route Start Time Stop Time Status Last Admin Dose Admin Acetaminophen/ Hydrocodone Bitart 1 ea ONCE ONCE PO 07/28/22 18:15 07/28/22 18:16 DC 07/28/22 18:24 1 EA Vital Signs/I&O 07/28/22 07/28/22 17:52 18:24 Temp 36.8 36.8 Pulse 92 Resp 20 B/P (MAP) 106/78 (87) Pulse Ox 91 O2 Delivery Room Air Blood Pressure Mean: 87 Departure Communication (PCP) Reviewed previous ER visits, H&P, lab testing. Complaining of right medial knee pain. Has been able to ambulate but worse today. Patient was given a dose of pain medication hydrocodone. Reviewed thex-ray of the right knee negative for fracture. Arthritic changes noted. Which may be associated to her pain and the feeling of her knee wanting to give out. Radiologist did not note any acute fracture. Suspect knee sprain versus arthritis. Able to bear some weight. Recommend range of motion, ice and anti-inflammatories. If continued pain in the next 7 to 10 days recommend recheck with x-ray rule out occult fracture. Orthopedic outpatient follow-up. Bear weight as tolerated. Range of motion exercises. Ice and elevate. Impression Primary Impression: Sprain of knee Disposition: HOME, SELF-CARE Condition: Stable Departure-Patient Inst. Decision time for Depature: 18:13 Referrals: KONRAD TIERNEY MD, JULIE A MD (PCP/Family) Primary Care Physician Patient Instructions: Knee Sprain ED HAMZAH HE Jul 28, 2022 18:13
[2022-07-28] MEDS ORDERED: HYDROcodone/APAP 5 MG/325 MG (LORTAB) TAB PO ONE (18:15)
--- NOTE | 2022-07-28 18:30 | Diagnostic Imaging Report ---
INDICATION: Right knee pain 3 views of the right knee show hypertrophic changes of the patellofemoral and medial tibiofemoral joint compartment with large osteophyte formation. IMPRESSION: [id number] degenerative changes medial compartment of the knee and patellofemoral joint. No fracture or acute abnormality seen. Dictated by: Dictated on workstation # [id number]
[2022-07-28 18:53] VITALS: BP 106/78
== END 2022-07-28 18:53 | disposition home or self-care (01) ==
LOC: EDUNIT# 17:20 → ER 17:22
DX: S83.91XA Sprain of unspecified site of right knee, initial encounter (principal); F17.210 Nicotine dependence, cigarettes, uncomplicated; E66.01 Morbid (severe) obesity due to excess calories; J44.9 Chronic obstructive pulmonary disease, unspecified; Z99.81 Dependence on supplemental oxygen; Z99.89 Dependence on other enabling machines and devices; Z68.42 Body mass index [BMI] 45.0-49.9, adult; W01.0XXA Fall on same level from slipping, tripping and stumbling without subsequent striking against object, initial encounter; X50.1XXA Overexertion from prolonged static or awkward postures, initial encounter; Y92.002 Bathroom of unspecified non-institutional (private) residence as the place of occurrence of the external cause
CPT/HCPCS: 73562

== ENCOUNTER → 2022-09-02 | Outpatient (CLI) | payer MEDICARE, MEDICAID ==
[~2022-09-02] MED LIST changes: +CATHETER FLUSH 10 ML SYR IVP PRN; +REGADENOSON 0.4 MG/5 ML SYR (LEXISCAN) IV ONE
[2022-09-02 13:14] VITALS: BP 145/81
--- NOTE | 2022-09-02 14:46 | Cardiology Stress Test Report ---
Stress Test Report Date of Procedure/Referring: Date of Procedure: September 02, 2022 PCP Dario Munoz MD Admitting Physician Admitting Physician: Attending Physician: Austen Silva MD Baseline Heart Rate: 84 Baseline Blood Pressure: Blood Pressure Systolic: 145 Blood Pressure Diastolic: 81 Baseline Vitals Vital Signs Date Time Temp Pulse Resp B/P (MAP) Pulse Ox O2 Delivery O2 Flow Rate FiO2 09/02/22 13:14 86 145/81 (102) 95 Nasal Cannula 2.00 Baseline EKG: Baseline EKG: NSR Summary After explaining the procedure to the patient, she signed a consent and then brought to the stress nuclear laboratory. Patient received 0.4 mg Lexiscan for stress test, ECG, heart rate and blood pressure were monitored continuously. Resting and stress dose of radio tracer were injected, imaging was acquired and reviewed in short axis, horizontal long axis and vertical long axis views. TID: 1.03 SSS: 4 SDS: 3 EF: 57 Patient tolerated Lexiscan well No attenuation correction images, there is reversible ischemia involving the basal to mid anterior wall and mid to apical anterolateral wall Normal left ventricular size, ejection fraction 57% Copy Copies To 1: DARIO MUNOZ MD Copies To 2: [facility]/AUSTEN MILNER MD September 02, 2022 14:46
== END ==
LOC: CARD 11:10
PROVIDERS: ATTEND Internal Medicine Cardiovascular Disease
DX: I10 Essential (primary) hypertension (principal); I25.10 Atherosclerotic heart disease of native coronary artery without angina pectoris; R07.2 Precordial pain
CPT/HCPCS: 78452; 93017

== ENCOUNTER 2022-09-16 07:47 | Day surgery (SDC) | payer MEDICARE, MEDICAID ==
[2022-09-16] VITALS (10 sets, daily range): BP systolic 125–153; BP diastolic 82–99
[~2022-09-16] VITALS: Ht 160 cm; Wt 130.1 kg
[~2022-09-16 07:47] MED LIST changes: -CATHETER FLUSH 10 ML SYR IVP PRN; -REGADENOSON 0.4 MG/5 ML SYR (LEXISCAN) IV ONE
[2022-09-16] MEDS ORDERED: NS IV 1000 ML 1,000 ML IV SCH ×2 (08:00→09:45)
[2022-09-16] MEDS ORDERED: LIDOCAINE 1% INJ 20 ML VIAL ONE (08:03)
[2022-09-16] MEDS ORDERED: HEParin 1000 UNIT/ML (10ML VIAL) FOR BOLUS ONE ×2 (08:03→08:42)
[2022-09-16] MEDS ORDERED: NS IV 1000 ML 1,000 ML ONE (08:04)
[2022-09-16] MEDS ORDERED: HEParin (CATH LAB) 2,000 ML IV ONE (08:04)
[2022-09-16 08:30] LABS: HEMATOCRIT 45 % (35-52); HEMOGLOBIN 14.2 g/dL (11.5-16.0); MEAN CORPUSCULAR HEMOGLOBIN 28 pg (25-34); MEAN CORPUSCULAR HGB CONC 32 g/dL (32-36); MEAN CORPUSCULAR VOLUME 88 fL (80-99); MEAN PLATELET VOLUME 10.3 fL (9.0-12.2); PLATELET COUNT 194 10^3/uL (130-400); WHITE BLOOD COUNT 9.1 10^3/uL (4.3-11.0)
--- NOTE | 2022-09-16 08:37 | Cardiac Procedure Note-CS/ASA ---
Pre-Procedure Note Pre-Op Procedure Note Date of Available H&P: September 03, 2022 Date H&P Reviewed: Sep 16, 2022 Time H&P Reviewed: 08:37 History & Physical: H&P Reviewed, Patient Examed, No changes noted Pre-Operative Diagnosis: CAD Moderate Sedation PreProcedure Time 08:37 ASA Score 3 Airway Lungs Heart ASA score ASA 1: a normal healthy patient ASA 2: a patient with a mild systemic disease (mid diabetes, controlled hypertension, obesity ASA 3: a patient with a severe systemic disease that limits activity (angina, COPD, prior Myocardial infarction) ASA 4: a patient with an incapacitating disease that is a constant threat to life (CHF, renal failure) ASA 5: a moribund patient not expected to survive 24 hrs. (ruptured aneurysm) ASA 6: a declared brain- patient whose organs are being harvested. For emergent operations, add the letter E after the classification Mallampati Classification Grade 3 Sedation Plan Analgesia, Amnesia, Plan communicated to team members, Discussed options with patient/fam, Discussed risks with patient/fam The patient is an appropriate candidate to undergo the planned procedure, sedation, and anesthesia. The patient immediately re-assessed prior to indication. AUSTEN MARTÍNEZ MD Sep 16, 2022 08:37
[2022-09-16] MEDS ORDERED: MIDAZOLAM 5 MG/5 ML (VERSED) VIAL ONE (08:42)
[2022-09-16] MEDS ORDERED: fentaNYL INJ 100 MCG/2 ML AMP ONE (08:42)
[2022-09-16] MEDS ORDERED: VERAPAMIL 5 MG/2 ML (CALAN) VIAL IV ONE (08:43)
[2022-09-16] MEDS ORDERED: NITRO DRIP 25000 MCG/D5W 250 ML IV ONE (08:43)
--- NOTE | 2022-09-16 08:51 | Diagnostic Imaging Report ---
INDICATION: Chest pain, pre-heart catheterization evaluation. Abnormal stress test. TECHNIQUE: Single view chest 8:30 AM. CORRELATION STUDY: 10/24/2021 FINDINGS: Heart size and mediastinum are stable. Vasculature has improved and is near normal at follow-up. The lungs are clear with no consolidating infiltrate. There is no significant effusion or pneumothorax. Advanced degenerative changes with bridging osteophytes thoracic spine. Limited visualization of cervical spinal hardware. IMPRESSION: 1. Cardiac enlargement. Vasculature is normal at follow-up without overt failure. Dictated by: Dictated on workstation # [id number]
[2022-09-16 08:54] LABS: BILIRUBIN,TOTAL 0.4 MG/DL (0.1-1.0); CALCIUM 9.2 MG/DL (8.5-10.1); CREATININE SERUM 1.1 MG/DL (0.60-1.30); POTASSIUM 3.9 MMOL/L (3.6-5.0); TOTAL PROTEIN 7.5 GM/DL (6.4-8.2)
[2022-09-16] MEDS ORDERED: VITA-189 PO (08:55)
[2022-09-16] MEDS ORDERED: ARIP2TAB20 PO (08:55)
[2022-09-16] MEDS ORDERED: MAGN100C5 PO (08:55)
[2022-09-16] MEDS ORDERED: SEMA2PEN SQ (08:55)
[2022-09-16] MEDS ORDERED: vitamin b6 PO (08:55)
[2022-09-16] MEDS ORDERED: MV-M1TAB57 PO (08:55)
[2022-09-16] MEDS ORDERED: MIRA50TA PO (09:03)
[2022-09-16] MEDS ORDERED: NALO4SPR3 NS (09:03)
[2022-09-16] MEDS ORDERED: EZET10TA49 PO (09:03)
[2022-09-16] MEDS ORDERED: FLUT1AER IH (09:03)
[2022-09-16] MEDS ORDERED: BUPR750F3 BC (09:03)
--- NOTE | 2022-09-16 09:38 | Discharge Inst-Post CATH ---
Discharge Inst-CATH/EP Problems Reviewed?: Yes Post Cardiac Cath/EP D/C Inst Follow Up/Plan Appointment with Dr. Silva's office in 2 to 4 weeks <b>CARDIAC CATH/EP PROCEDURE DISCHARGE INSTRUCTIONS</b> ACTIVITY * Go Home directly and rest. * Limit activity of the leg (or wrist if it was used) for 7 days including aer obics, swimming, jogging, bicycling, etc. * Restrict stair-climbing for 7 days if possible, if not, climb up with your non-cath leg, then bring together on the same step. * Avoid lifting, pushing, pulling or excessive movement of the affected extremi ty for 7 days. * Customary sexual activity may be resumed after 2 days-use caution not to use a position that strains or causes pain to the affected extremity. * No driving for 24 hours. * NO SMOKING. * Avoid straining for bowel movements for 7 days. * Gentle walking on level ground is allowed. * Returning to work will depend on the type of procedure and the results. Your doctor will discuss this with you. CALL YOUR DOCTOR FOR ANY OF THE FOLLOWING: *If bleeding from the puncture site occurs- Apply gentle pressure to site with clean cloth and call your doctor or EMS. * If a knot or lump forms under the skin, increases in size, or causes pain. * If bruising appears to be worsening or moving further down your leg instead of disappearing. * Temperature above 101 F. CARE OF YOUR GROIN INCISION; * Bruising or purple discoloration of the skin near the puncture site is common. * You may shower only, no bathtub bathing for 5 days. Be careful to avoid slipping as your leg may feel stiff. * If a closure device was used on your femoral artery, please see the attached guide regarding care of the device and your leg. * Leave dressing on FOR 24 hours. CARE OF YOUR WRIST INCISION; * Bruising or purple discoloration of the skin near the puncture site is common. * You may shower. * DO NOT submerge wrist. * Leave dressing on FOR 24 hours. AUSTEN SILVA MD Sep 16, 2022 09:38
--- NOTE | 2022-09-16 09:42 | Cardiac Cath Report ---
Cardiac Cath Report Physician (s)/Billposter (s) Physician AUSTEN MARTÍNEZ MD Pre-Procedure Diagnosis Pre-Procedure Diagnosis: CAD Post-Procedure Note Procedure Start Date: Sep 16, 2022 Procedure Start Time: 09:38 Name of Procedure: Left heart catheterization Findings/Procedure Note PROCEDURE NOTE: 66-year-old lady with history of hypertension, hyperlipidemia and diabetes mellitus, had an abnormal stress test with anterior wall ischemia, scheduled for cardiac catheterization possible PTCA. After explaining the procedure to the patient, all pros and cons were explained, all questions were answered. The patient signed the consent and then she was placed in the cardiac catheterization laboratory. Groin was prepped in SL fashion local anesthesia was used. Sheath placed in the right radial artery, Bradford catheter was advanced to the left ventricular cavity, pressure was measured, pullback LV to aorta was done, engage the right and left coronary system, multiple views were obtained. At the end of the procedure the sheath was removed. Vascular band was used FINDINGS: Hemodynamics LV 132/15, end-diastolic pressure of 15 Aorta 130/89 mean of 105 ANATOMY: Left Main is free of obstructive disease Left Anterior Descending is tortuous artery with no obstructive disease Left Circumflex is nondominant artery, with no obstructive disease Right Coronary Artery is tortuous artery dominant artery with no obstructive disease LV Gram was not done, pressure was measured CONCLUSION: Tortuous coronary system with no obstructive disease Normal left ventricular end-diastolic pressure DISCUSSION AND RECOMMENDATION: Medical therapy is recommended, no intervention is warranted Anesthesia Type: Conscious Sedation Estimated blood loss (mL): 10 ml Contrast Amount: 49 ml Total Radiation Dose: 680 mGy Post-Procedure Diagnosis Post-operative diagnosis: Chest pain Coronary artery disease Hypertension Hyperlipidemia AUSTEN MARTÍNEZ MD Sep 16, 2022 09:42
== END 2022-09-16 12:42 | disposition home or self-care (01) ==
LOC: CATH 07:47 → SDC 09:56 → CATH 12:42
PROVIDERS: ATTEND Internal Medicine Cardiovascular Disease
DX: I25.10 Atherosclerotic heart disease of native coronary artery without angina pectoris (principal); E78.2 Mixed hyperlipidemia; I10 Essential (primary) hypertension; J44.9 Chronic obstructive pulmonary disease, unspecified; I49.3 Ventricular premature depolarization; I65.23 Occlusion and stenosis of bilateral carotid arteries; F17.210 Nicotine dependence, cigarettes, uncomplicated; Z79.899 Other long term (current) drug therapy; Z79.891 Long term (current) use of opiate analgesic
CPT/HCPCS: 36415; 71045; 80053; 80061; 85027; 85610; 85730; 87081; 93005; 93458